=== PATIENT | female | born 1960 | race Caucasian/White ===

== ENCOUNTER 2019-04-03 10:38 | Emergency (ER) | payer OTHER ==
[~2019-04-03] VITALS: Ht 172.7 cm; Wt 86.2 kg
--- OUTSIDE RECORDS SUMMARY | ~2019-04-03 | XMS | Clinical Summary ---
Demographics + + + | Address | [address] | | | [place] [address] | + + + | Home Phone | | + + + | Preferred Language | Unknown | + + + | Marital Status | | + + + | Roman Catholic Affiliation | Unknown | + + + | Race | Unknown | + + + | Ethnic Group | Unknown | + + + Author + + + | Author | [facility] | + + + | Organization | [facility] | + + + | Address | Unknown | + + + | Phone | Unavailable | + + + Support + + +---------+ + | Name | Relationship | Address | Phone | + + +---------+ + | Adry Rodriguez | ECON | Unknown | | + + +---------+ + Care Team Providers + +------+ + | Care Soda Worker Name | Role | Phone | + +------+ + | Zuleyka Martínez ENAMEL DIPPER | PP | | + +------+ + Allergies Not on File Current Medications Not on file Active Problems Not on file Social History + +-------+ +--------+------+ | Tobacco [...] on file | | + + + Plan of Treatment Not on file Results Not on filefrom Last 3 Months Insurance + +--------+ +------+-------+---------+ | Payer | Benefi | Subscriber | Type | Phone | Address | | | t Plan | ID | | | | | | / | | | | | | | Group | | | | | + +--------+ +------+-------+---------+ | [employer] | [employer] | [id number] | | | | | | WORK | | | | | + +--------+ +------+-------+---------+ + +--------+ +--------+ + + | Guarantor Name | Accoun | Relation to | Date | Phone | Billing Address | | | t Type | Patient | of | | | | | | | | | | + +--------+ +--------+ + + | OLENA BUITRAGO | Person | Self | [birth year] | Home: | [address] | | | al/Fam | | 2 | [phone] | [place] [address] | | | ze | | | [phone] | | + +--------+ +--------+ + +"
--- OUTSIDE RECORDS SUMMARY | ~2019-04-03 | XMS | Clinical Summary ---
Demographics + + + | Address | [address] | | | [place] [address] | + + + | Home Phone | | + + + | Preferred Language | Unknown | + + + | Marital Status | | + + + | Orthodox Affiliation | Unknown | + + + | Race | Unknown | + + + | Ethnic Group | Unknown | + + + Author + + + | Author | [facility] | + + + | Organization | [facility] | + + + | Address | Unknown | + + + | Phone | Unavailable | + + + Support + + +---------+ + | Name | Relationship | Address | Phone | + + +---------+ + | Adry Rodriguez | ECON | Unknown | | + + +---------+ + Care Team Providers + +------+ + | Care Program Facilitator Name | Role | Phone | + +------+ + | Zuleyka Martínez ACCOUNTS PAYABLE TECHNICIAN | PP | | + +------+ + [...] +------+-------+---------+ | [employer] | FC-NET | [id number] | | | | | | WORK [...] | | al/Fam | | 2 | [phone] | [place] [address] | | | ze | | | [phone] | | + +--------+ +--------+ + +"
--- OUTSIDE RECORDS SUMMARY | ~2019-04-03 | XMS | Clinical Summary ---
Demographics + + + | Address | [address] | | | [place] [address] | + + + | Home Phone [...] and Services [place] | | | and [place] | + + + | Organization | [facility] | | | and [place] | + + + | Address | [...] Team Providers + +------+ + | Care Selling Manager Name | Role | Phone | + +------+ + | Zuleyka Martínez | PP | Unavailable | + +------+ + Allergies + + [...] Activ | | 10 mg tablet | nightly as needed | | | | | e | | | for Sleep. | | | | | | + + + +---------+------+------+-------+ | traMADol (ULTRAM) | Take 50 mg by mouth | | 0 | | | Activ | | 50 mg tablet | every 6 hours as | | | | | e | | | needed for Pain. | | | | | | + + + +---------+------+------+-------+ | levothyroxine | Take 125 mcg by | | 0 | | | Activ | | (SYNTHROID) 125 mcg | mouth every morning | | | | | e | | tablet | (before breakfast). | | | | | | + + + +---------+------+------+-------+ | calcium carbonate | Take 2 tablets by | | 0 | | | Activ | | (TUMS) 500 mg | mouth as needed. | | | | | e | | chewable tablet | | | | | | | + + + +---------+------+------+-------+ | ALPRAZolam (XANAX) | Take 0.5 mg by mouth | | 0 | | | Activ | | 0.5 mg tablet | 3 times daily as | | | | | e | | | needed for Anxiety. | | | | | | + [...] + + +---------+------+------+-------+ | Multiple | Take by mouth | | 0 | | | Activ | | Vitamins-Minerals | Daily. | | | | | e | | (MULTIVITAMIN ADULT | | | | | | | | PO) | | | | | | | + + + +---------+------+------+-------+ Active Problems + + + | Problem | Noted Date | + + + | Non-small cell cancer of right lung | 01/26/2017 | + + + + + | Cancer Staging: Pathologic stage from 01/26/2017: Stage IIIA | | (T3(1), N1, cM0) - Signed by Milton Salazar MD on | | 01/26/2017 | + + + + + | Pneumothorax after biopsy | 11/04/2016 | + + + | Malignant neoplasm of thyroid gland | 09/28/2016 | + + + | Precordial pain | 06/01/2016 | + + + | Abnormal stress ECG with treadmill | 06/01/2016 | + + + | Cigarette smoker one half pack a day or less | 06/01/2016 | + + + | Insomnia | | + + + Social History + + [...] + +---------+ + | Alcohol Use | Drinks/We | oz/Week | Comments | | | ek | | | + + +---------+ + | Yes | | | once a month | + + +---------+ + + + + | Sex Assigned at | Date Recorded | | | | + + + | Not on file | | + + + + + + + | Job Start Date | Occupation | Industry | + + + + | Not on file | Not on file | Not on file | + + + + + + + + | Travel History | Travel Start | Travel End | + + + + + + | No recent travel history available. | + + Last Filed Vital Signs + + + + | Vital Sign | Reading | Time Taken | + + + + | Blood Pressure | 131/91 | 08/23/20181521 PDT | + + + + | Pulse | 103 | 08/23/20181521 PDT | + + + + | Temperature | 36.7 C (98 F) | 08/23/20181521 PDT | + + + + | Respiratory Rate | 16 | 08/23/20181521 PDT | + + + + | Oxygen Saturation | 100% | 08/23/20181521 PDT | + + + + | Inhaled Oxygen | - | - | | Concentration | | | + + + + | Weight | 88.6 kg (195 lb 5.2 | 08/23/20181521 PDT | | | oz) | | + + + + | Height | 172.7 cm (5' 8") | 11/04/2016 0900 PST | + + + + | Body Mass Index | 29.7 | 11/04/2016 0900 PST | + + + + Plan of Treatment + + + + + | Health Maintenance | Due Date | Last Done | Comments | + + + + + | Hepatitis C | | | | | Screening | 2 | | | + + + + + | Vaccine: | | | | | Pneumococcal 19-64 | 1 | | | | Highest Risk (1 of 3 | | | | | - PCV13) | | | | + + + + + | Breast Cancer | | | | | Screening (Ages | 2 | | | | 50-74) | | | | + + + + + | Vaccine: Zoster (1 | | | | | of 2) | 2 | | | + + + + + | Vaccine: Influenza | | | | | (Season Ended) | 9 | | | + + + + + | Vaccine: | | 09/12/2015, 08/01/2008, | | | Dtap/Tdap/Td (4 - | 5 | 11/29/2006 | | | Td) | | | | + + + + + Results Not on filefrom Last 3 Months Insurance + +--------+ +--------+ +---------+------+ | Payer | Benefi | Subscriber | Effect | Phone | Address | Type | | | t Plan | ID | rajan | | | | | | / | | Dates | | | | | | Group | | | | | | + +--------+ +--------+ +---------+------+ | [employer] | FIRST | [id number] | | [phone] | | PPO | | ADMIN | CHOICE | | [id number]-[id number] | 2 | | | | | | | esent | | | | | | HEALTH | | | | | | | | ADMIN | | | | | | | | FST | | | | | | | | CH | | | | | | + +--------+ +--------+ +---------+------+ + +--------+ +--------+ + + | Guarantor Name | Accoun | Relation to | Date | Phone | Billing Address | | | t Type | Patient | of | | | | | | | | | | + +--------+ +--------+ + + | Olena Rider Yaneli | Person | Self | [birth year] | | [address] | | | al/Fam | | 1960 | [phone] | [place] [id number] | | | ze | | | 9 (Home) | | + +--------+ +--------+ + + Advance Directives Patient has advance care planning documents, and code status on file. For more information, please contact:[facility] [place] [address] + + + + + | Code Status | Date | Date | Comments | | | Activated | Inactivated | | + + + + + | Full Code | 11/04/2016 | 11/06/2016 | | | | 15:13 | 13:06 | | + + + + + + + + +---+ | | | | | + + + +---+ | Full Code | 06/01/2016 | 06/02/2016 | | | | 17:59 | 20:15 | | + + + +---+
--- OUTSIDE RECORDS SUMMARY | ~2019-04-03 | XMS | Clinical Summary ---
Demographics + + + | Address | [address] | | | [place] [address] | + + + | Home Phone [...] Organization | [facility] | | | and [place] | [...] + +------+ + | Care Middle School Counselor Name | Role | Phone | [...] | [employer] | FIRST | [id number] | | [phone] | PPO | [...] | | 1960 | [phone] | [place] [address] | | | ze | | | 9 (Home) | | + +--------+ +--------+ + + Advance Directives Patient has advance care planning documents, and code status on file. For more information, please contact:[facility] [place] [address] + + + + + | Code [...]
[~2019-04-03 10:38] MED LIST: ALPRAZOLAM0.25 MG PO; AMBIEN10 MG PO; ATIVAN1 MG PO; CALCIUM CARBON200 MG PO; CALCIUM500 MG PO; DILAUDID4 MG PO; GABAPENTIN600 MG PO; HEALTHYLAX17 GM PO; LEVOTHYROXINE112 MCG PO; LEVOTHYROXINE125 MCG PO; LEVOTHYROXINE150 MCG PO; LORAZEPAM1 MG PO; MULTIVITAMIN W1 EACH PO; NORCO 5-325 TA1 EACH PO; OMEPRAZOLE20 MG PO; ONDANSETRON ODT4 MG PO; OXYCODON-ACETA1 EAC2 PO; OXYCODONE-ACET1 EAC1 PO; PERCOCET 5-3251 EACH PO; PERCOCET 7.5-31 EACH PO; SENNA LAX8.6 MG PO; TRAMADOL HCL50 MG PO; TYLENOL325 MG PO; VITAMIN C500 M1 PO; VITAMIN D32000 UNI1 PO; VITAMIN D5000 UNIT PO
--- OUTSIDE RECORDS SUMMARY | 2019-04-03 10:42 | XMS ---
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 ESamuel VISIT COUNT (12 MO.) 1 MARYAN Chamberlain TOTAL 1 NOTE: Visits indicate total known visits. ED/UCC VISIT TRACKING (12 MO.) 04/03/2019 10:39 MARYAN Pina [place] TYPE: Emergency COMPLAINT: - RIGHT HIP PAIN/POST OP INPATIENT VISIT TRACKING (12 MO.) 03/06/2019 05:55 MARYAN Pina [place] TYPE: Orthopedic COMPLAINT: - RT TOTAL HIP REPLACEMENT DIAGNOSES: - Other secondary osteonecrosis, right femur - Other secondary osteonecrosis, left femur [email or web address]
[2019-04-03] MEDS ORDERED: AMBIEN10 MG PO (10:52)
[2019-04-03] MEDS ORDERED: CELECOXIB200 MG PO (10:53)
[2019-04-03] MEDS ORDERED: HYDROMORPHONE HC2 MG PO ×2 (10:53→13:20)
== END 2019-04-03 13:39 | disposition home or self-care (01) ==
LOC: ED 10:38
DX: T84.010A Broken internal right hip prosthesis, initial encounter (principal); Z87.891 Personal history of nicotine dependence; Z90.49 Acquired absence of other specified parts of digestive tract; Z90.710 Acquired absence of both cervix and uterus; Z88.5 Allergy status to narcotic agent; Z79.899 Other long term (current) drug therapy
CPT/HCPCS: 73552; 93971; 99284-25

== ENCOUNTER 2019-07-06 09:00 | Day surgery (SDC) | payer OTHER ==
[~2019-07-06] VITALS: Ht 172.7 cm; Wt 86.2 kg
[~2019-07-06 09:00] MED LIST changes: +CELECOXIB200 MG PO; +HYDROMORPHONE HC2 MG PO
--- NOTE | 2019-07-06 13:51 | NUR ---
07/06/19 1351 Pretty Mendoza 3301-PATIENT ARRIVED TO PACU ON 10L MASK PLACED ON 6L RR EVEN. PATIENT SR. DRESSING TO RIGHT BREAST CDI. PATIENT REACTIVE TO VOICE VERY DROWSY SLIGHTLY OPENS EYES AND BACK TO SLEEP.
[2019-07-06] MEDS ORDERED: OXYCODON-ACETA1 EAC2 PO (14:17)
[2019-07-06] MEDS ORDERED: TYLENOL325 MG PO (14:17)
--- NOTE | 2019-07-06 14:59 | NUR ---
1450: PATIENT BACK IN DAY SURGERY ROOM FROM PACU. C/O PAIN /10. MEDICATED FOR PAIN WITH 1 TABLET OF PERCOCET. TOLERATED PUDDING AND WATER. RIGHT BREAST DRESSING CDI. IV SITE WNL. SCDs ON. FAMILY AT BEDSIDE. CALL LIGHT WITHIN REACH.
--- NOTE | 2019-07-06 16:25 | NUR ---
1520: PATIENT ASSISTED OOB AND TO BATHROOM. GAIT STEADY. VOID WITHOUT DIFFICULTY. GAIT STEADY BACK TO ROOM. TOLERATED SANDWICH. DAUGHTER AT BEDSIDE. CALL LIGHT WITHIN REACH. 1545: DISCHARGE INSTRUCTIONS GIVEN TO PATIENT AND DAUGHTER. PATIENT DRESSED INDEPENDENTLY. PATIENT DISCHARGED TO HOME WITH DAUGHTER VIA WHEELCHAIR.
--- NOTE | 2019-07-08 16:41 | OR ---
[facility] [place] [facility] [address] [place], [place] [address] Signed DATE OF OPERATION: 07/06/2019 SURGEON: Nando Pelayo MD PREOPERATIVE DIAGNOSIS: Right infiltrating ductal breast carcinoma ER positive, HER-2/flakita negative, right lateral breast. POSTOPERATIVE DIAGNOSIS: Right infiltrating ductal breast carcinoma ER positive, HER-2/flakita negative, right lateral breast with negative sentinel lymph nodes on frozen pathology. PROCEDURES PERFORMED: 1. Injection of methylene blue dye for sentinel lymph node identification. 2. Right axillary sentinel lymph node biopsy x2. 3. Right partial mastectomy. ANESTHESIA: General LMA; Nando Cody CRNA. INDICATION: This 58-year-old white woman is well known to me from the past. She is a patient of Joe Martínez in the [place], [place], as well as Dr. Reid in [place]. The patient is known to me from the past for thyroidectomy for thyroid cancer, but she has additionally a year ago had right lung cancer requiring thoracoscopic resection by Dr. Nando Mon. She was recently diagnosed with an abnormal mammogram and biopsy confirmed findings of an infiltrating ductal carcinoma, ER positive, HER-2/flakita negative. This was performed by Dr. Shanae Dickens. She has no clearly palpable abnormality. It is notable that her sister recently underwent breast cancer treatment by me. Her mother was noted to have breast cancer in the past as well. After reviewing her options of management currently, she agrees to undergo needle localized excision of breast tissue (partial mastectomy) as well as sentinel lymph node biopsy, possible axillary dissection on the right-sided breast cancer problem. She understands the risks of bleeding, infection, cosmetic deformity, and other unforeseen complications and wished to proceed. FINDINGS: Electronically Signed By: NANDO PELAYO MD 07/08/19 1641 PATIENT NAME: SMITHA BUITRAGO OPERATIVE REPORT DATE OF : 64 REPORT #: [id number] PHYSICIAN: NANDO PELAYO MD PCP: JOE MARTÍNEZ NP REPORT IS CONFIDENTIAL AND NOT TO BE RELEASED WITHOUT AUTHORIZATION [facility] [address] [place], [place] [address] Signed Good uptake by radionuclide was noted in the axilla. Two small lymph nodes were identified and excised, and on frozen pathology, were found to have free of malignancy. The remaining axillary lymph nodes did not have uptake of radiotracer or dye. The needle entered the right breast far laterally, but a circumareolar incision was made, mindful of the position of the actual neoplasm. Wide excision of the neoplasm was accomplished to optimize cosmetic benefit. Specimen radiograph confirmed the lesion in question to be in the excised specimen. Good cosmesis was maintained by conclusion of the procedure. DESCRIPTION OF PROCEDURE: The patient was brought to the operating room and given a general LMA type anesthetic. She was received from radiology suite with a wire emanating from the right lateral breast. The right breast and chest and axilla were prepared with a spray of Betadine solution after trimming the localizing wire. Preoperative antibiotic Ancef was given, sequential compression device stockings used, and heparin subcutaneously administered. The C-Trak radio probe was used to localize the hot area of the right axilla and a small incision was made just lateral to the pectoralis muscle. Dissection was carried through sharply and ultimately with electrocautery. Using blunt dissection primarily and optimal placement of [place] retractors and with various manipulations using the tonsil clamp, the area of high uptake could be identified. There was not too much uptake of the methylene blue dye 0.5%, which had been injected prior to preparation of the breast by nj. 1 mL of methylene blue dye had been used for localization. Nevertheless with radiotracer two small "hot" sentinel nodes were identified and ultimately excised. Small clips were used to secure hemostasis. Interrogation of the right axilla fully showed no other areas of radiotracer uptake nor sign of methylene blue uptake. The wound was packed and the sentinel lymph nodes were sent for frozen pathology. The wire emanating from the lateral aspect of the right breast was carefully and gently manipulated and the lesion was noted to be far more central in the entry point of the wire. On that basis, the areolar margin was marked and a curvilinear incision made on it. Blue dye was transected in doing this based on prior injection. Dissection was carried through the dermis and a flap was raised laterally, ultimately identifying the wire allowing for a lateral to medial and manipulation of the wire to the area in question. Allis clamps were applied to the parenchyma of the breast, and using electrocautery, wide excision was undertaken. A palpable lesion could be noted within the specimen. Additional marginal excision was undertaken medially given the granular nature of the breast tissue palpated. At this point, the frozen pathology returned of the sentinel lymph nodes of the axilla, Electronically Signed By: NANDO PELAYO MD 07/08/19 1641 PATIENT NAME: SMITHA BUITRAGO OPERATIVE REPORT DATE OF : 64 REPORT #: [id number] PHYSICIAN: NANDO PELAYO MD PCP: JOE MARTÍNEZ NP REPORT IS CONFIDENTIAL AND NOT TO BE RELEASED WITHOUT AUTHORIZATION [address] [address] Signed both of them found to have no evidence of metastatic disease. Ultimately, the specimen radiograph confirmed that the lesion in question was excised and noted on the specimen radiograph. Additionally, the medial additional breast tissue that was excised had been imaged, but likely was placed in continuity with the initial excision specimen, and therefore 2 separate specimens were not noted in the radiograph report as noted by Dr. Dickens. Examination of the axilla showed no sign of untoward bleeding. Wound was closed with interrupted 2-0 Vicryl and subcuticular 3-0 Vicryl for the skin. The breast excision (partial mastectomy) site was irrigated and hemostasis meticulously maintained with electrocautery. Some Sara hemostatic agent was insufflated into the area as well. Parenchymal reapproximation was undertaken as best could be to maintain breast contour. The skin was then closed with running subcuticular 3-0 Vicryl. Great effort was made to maintain good cosmesis. Very nice cosmesis of the breast was noted at conclusion. Steri-Strips were applied as was a Mepilex silver sponge dressing and an OpSite. The patient tolerated the procedure well. ESTIMATED BLOOD LOSS: Less than 25 mL. COUNTS: Sponge, needle, and instrument counts were reported as correct x3. MD CHRIS Mueller/REYNAL /[id number] cc: MD Joe Azevedo NP Copies: JOE REID MD Electronically Signed By: NANDO PELAYO MD 07/08/19 1641 PATIENT NAME: SMITHA BUITRAGO OPERATIVE REPORT DATE OF : 64 REPORT #: [id number] PHYSICIAN: NANDO PELAYO MD PCP: JOE MARTÍNEZ NP REPORT IS CONFIDENTIAL AND NOT TO BE RELEASED WITHOUT AUTHORIZATION [address] [place], [place] [address] Signed JOE MARTÍNEZ NP ~ Electronically Signed By: NANDO PELAYO MD 07/08/19 1641 PATIENT NAME: SMITHA BUITRAGO OPERATIVE REPORT DATE OF : 64 REPORT #: [id number] PHYSICIAN: NANDO PELAYO MD PCP: JOE MARTÍNEZ NP REPORT IS CONFIDENTIAL AND NOT TO BE RELEASED WITHOUT AUTHORIZATION
--- NOTE | 2019-07-12 14:42 | PATH ---
[facility] [address] [place], [place] [address] Signed SPECIMEN(S): A SENTINEL LYMPH NODE 1 AND 2 SPECIMEN(S): B RIGHT LATERAL BREAST SPECIMEN(S): C RIGHT BREAST MEDIAL MARGIN SPECIMEN SOURCE: A. SENTINEL LYMPH NODE 1 AND 2 B. RIGHT LATERAL BREAST C. RIGHT BREAST MEDIAL MARGIN CLINICAL HISTORY: Right breast malignancy. FROZEN SECTION DIAGNOSIS: A. [place] lymph node #1 and #2, two right sentinel lymph nodes frozen: - Two lymph nodes, negative for metastatic malignancy. BETHANY Hernandez M.D. 07-06-2019, 1:18 PM Frozen section diagnoses called to OR at 1:18 PM. The Gross Description was prepared using a voice recognition system. The report was reviewed for accuracy; however, sound-alike word errors, addition and/or deletions may occur. If there is any question about this report, please contact Client Services. FINAL PATHOLOGIC DIAGNOSIS: A. Right axillary sentinel lymph nodes 1 and 2, excision: - Negative for metastatic malignancy on both HE and immunostain slides. B. Right breast, upper outer quadrant, excision with image guided localization: - Specimen size: 6.2 x 5.2 x 2.7 cm. - Specimen integrity: Intact. - Largest dimension of invasive carcinoma: 1.8 cm. - Histologic type: Invasive ductal carcinoma, not otherwise specified. - Histologic grade (Media histologic score): - Tubule differentiation: 3 of 3. - Nuclear pleomorphism: 2 of 3. - Mitotic score: 1 of 3. - Total score = 6 = grade 2 of 3. - Associated in situ component: Low-grade ductal carcinoma in situ, cribriform type, no comedo necrosis. - Longest continuous 0.4 cm. - Margins: PATIENT NAME: OLENA RIDER PATHOLOGY DATE OF : 64 REPORT #: [id number] PHYSICIAN: [place] PCP: JOE SOFIA NP REPORT IS CONFIDENTIAL AND NOT TO BE RELEASED WITHOUT AUTHORIZATION [facility] [address] [place], [place] [address] Signed - Invasive: Uninvolved by invasive carcinoma; 0.2 cm from nearest inked margin. - Ductal carcinoma in situ: Uninvolved by DCIS. - Lymph-vascular invasion: Not present. - Microcalcifications: Identified in both carcinoma and nonneoplastic glands. - Additional pathologic findings: - Breast uninvolved by neoplasm. - Fibrocystic disease with the features of fibrosis, cyst formation, apocrine metaplasia, usual and atypical ductal Hyperplasia, microcalcifications. - Lymph nodes: - Two lymph nodes identified, negative for metastatic malignancy. - AJCC: pT1c PN0(SN). C. Breast, additional tissue from medial margin, excision: - Fibrocystic disease with the features of fibrosis, cyst formation, apocrine metaplasia, usual ductal hyperplasia, focal atypical lobular hyperplasia. - Negative for malignancy. COMMENT: B -- The patient had a previous biopsy of the right breast at 10 o'clock region with a diagnosis of infiltrating ductal carcinoma ([id number], received at [facility] 06/15/19). Ancillary studies were performed at this time with the following results: - Estrogen receptor by immunohistochemistry: 99% positive. - Progesterone receptor by immunohistochemistry: 60% positive. - HER2 by FISH: Negative for amplification. As part of [facility]' Quality Improvement Program, this case was reviewed by another member of our pathology staff. BETHANYA:NRT:cml:C1NR MICROSCOPIC EXAMINATION: A. Immunostain for CKAE1/AE3 is obtained on material from cassette (A1), along with an appropriately positive control. Results support the above diagnosis. B, C. Histologic sections of all submitted blocks are examined by light microscopy. These findings, together with the gross examination, support the pathologic diagnosis. Immunostains for SMMCH (Blocks B2, B3, C3) and e-cadherin (Blocks C1 and C2) are obtained along with appropriately positive controls and support the above diagnoses. PATIENT NAME: OLEAN RIDER PATHOLOGY DATE OF : 64 REPORT #: [id number] PHYSICIAN: [facility] PCP: JOE SOFIA NP REPORT IS CONFIDENTIAL AND NOT TO BE RELEASED WITHOUT AUTHORIZATION [address] [address] Signed GROSS DESCRIPTION: Three specimens are received in three containers, labeled "Olena Rider." A. The specimen is received fresh from surgery labeled "right sentinel lymph node 1 and 2" and consists of a piece of regular rubbery tissue, measuring 1.5 x 1.5 x 0.3 cm. The fat is dissected free to reveal two tiny, rubbery, tannish lymph nodes, measuring 0.9 cm and 0.5 cm in maximum extent. One half of the larger lymph node and all of the smaller lymph node are submitted for frozen section and subsequently for permanent sections in cassette (A1). The remaining tissue and the other half of the larger lymph node, which was not frozen is submitted in cassette (A2). LJA:cml B. The specimen, labeled "MH, right breast biopsy," is received in formalin and consists of 28.5 g unoriented portion of fibroadipose tissue that is 6.2 x 5.2 x 2.7 cm. The specimen has inserted metal localization wire. The tissue is inked black and serially sectioned perpendicular to the long axis into 13 slices revealing a 1.8 x 1.2 x 1.2 cm pink-white firm ill-defined mass, which is present in slices 4-8. This mass is 0.2 cm from the closest soft tissue resection margin, and 0.7 cm, 1.2 cm, 1.6 cm, 2.4 cm, and 2.8 cm from the remaining soft tissue resection margins. Laser Specialist sections are submitted in five cassettes. Cassette summary: (B1-B3) Mass to the two closest soft tissue resection margin, perpendicular (B4-B5) Remaining soft tissue resection margins, perpendicular used equipment sales representative sections. Cold ischemia time: 11 minutes Approximate Formalin time: 20 hours. C. The specimen, labeled "MH, additional tissue medial margin right breast," is received in formalin and consists of 6.5 g crescent shaped portion of unoriented fibroadipose tissue that is a 5.2 x 2.6 x 1.3 cm. The lesser curvature of the specimen displays a pink card artifact, which is inked blue. The remaining tissue is inked black. The specimen is serially sectioned perpendicular to the long axis proximally 50% of the specimen is a pink rubbery fibrous tissue that contains multiple brown mucoid filled ducts. The remaining 50% is a yellow-phillips greasy adipose tissue. No discrete mass lesions are grossly identified. Specimen is entirely submitted consecutively in cassettes (C1-C9). Cold ischemia time: 11 minutes PATIENT NAME: OLENA RIDER PATHOLOGY DATE OF : 64 REPORT #: [id number] PHYSICIAN: LOUISA LING PCP: JOE SOFIA NP REPORT IS CONFIDENTIAL AND NOT TO BE RELEASED WITHOUT AUTHORIZATION [facility] [address] [place] [address] Signed Approximate Formalin time: 20 hours. FB (under the direct supervision of a pathologist) ADDITIONAL NOTES: Immunohistochemical and/or in situ hybridization studies were performed on this case with the appropriate positive controls that react as expected. This test was developed and its performance characteristics determined by [facility]. It has not been cleared or approved by the U.S. Food and Drug Administration. The FDA has determined that such clearance or approval is not necessary. This test is used for clinical purposes. It should not be regarded as investigational or for research. [facility] is certified under the Clinical Laboratory Improvement Amendments of 1988 (CLIA) as qualified to perform high complexity clinical laboratory testing. PERFORMING LABORATORY: The frozen section was performed by [place] [address] (Assistant Professor Of Psychology: Doc Hernandez MD; CLIA# [id number]). The technical component was performed by [facility] [address] (Assistant Professor Of Psychology: Nissa Calle MD; CLIA# [id number]). [facility] [address] [place] [address] (Assistant Professor Of Psychology: Doc Hernandez MD; CLIA# [id number]). Diagnostician: Doc Hernandez MD Pathologist Electronically Signed 07/12/2019 Copies: ~ PATIENT NAME: OLENA RIDER [facility]A PATHOLOGY DATE OF : 64 REPORT #: [id number] PHYSICIAN: LOUISA LING PCP: JOE SOFIA NP REPORT IS CONFIDENTIAL AND NOT TO BE RELEASED WITHOUT AUTHORIZATION
== END 2019-07-06 15:50 | disposition home or self-care (01) ==
LOC: OPS 09:00 → DS 09:00 → OPS 10:00
PROVIDERS: Surgery
PROC: 0HBT0ZZ Excision of Right Breast, Open Approach (ICD-10-PCS; principal; 2019-07-06 11:00)
PROC: 07B50ZX Excision of Right Axillary Lymphatic, Open Approach, Diagnostic (ICD-10-PCS; 2019-07-06 11:00)
DX: C50.411 Malignant neoplasm of upper-outer quadrant of right female breast (principal); K21.9 Gastro-esophageal reflux disease without esophagitis; E89.0 Postprocedural hypothyroidism; Z88.5 Allergy status to narcotic agent; Z87.891 Personal history of nicotine dependence; Z85.850 Personal history of malignant neoplasm of thyroid; Z85.118 Personal history of other malignant neoplasm of bronchus and lung; Z80.3 Family history of malignant neoplasm of breast; Z17.0 Estrogen receptor positive status [ER+]; Z79.899 Other long term (current) drug therapy
CPT/HCPCS: 00404; 19285; 76098; 77065; 78195; A9541; J0131; J0690; J1100; J1644; J1885; J2250; J2405; J2704; J2765; J3010; J7120; Q9968

== ENCOUNTER 2020-04-11 19:18 | Emergency (ER) | payer OTHER ==
[~2020-04-11] VITALS: Ht 172.7 cm; Wt 86.2 kg
--- OUTSIDE RECORDS SUMMARY | 2020-04-11 19:20 | XMS ---
PreManage Notification: SMITHA BUITRAGO Security Die Tester Events No recent Security Events currently on file CRITERIA MET - [facility] CARE PROVIDERS Miguelito Allison DO [facility] Current PHONE: [phone] BISMARK Unger Nurse Practitioner 04/04/2019-[facility] JOE PHONE: [phone] Augusto has no Care Guidelines for this patient. Jeri VISIT COUNT (12 MO.) 1 America Chamberlain TOTAL 2 NOTE: Visits indicate total known visits. ED/UCC VISIT TRACKING (12 MO.) [facility] COMPLAINT: - LEFT EYE PAIN 01/04/2020 09:27 [facility] Araceli REYES TYPE: Emergency DIAGNOSES: - Facial Swelling - Periorbital cellulitis - eye swelling INPATIENT VISIT TRACKING (12 MO.) 01/04/2020 09:27 [facility] Araceli REYES TYPE: Medical Surgical DIAGNOSES: - Periorbital cellulitis [email or web address]
[2020-04-11] MEDS ORDERED: BACTRIM DS TAB1 EACH PO (22:42)
[2020-04-11] MEDS ORDERED: AUGMENTIN 875-1 EACH PO (22:42)
[2020-04-11] MEDS ORDERED: DOXYCYCLINE HY100 MG PO (22:54)
[2020-04-11] MEDS ORDERED: CEFDINIR300 MG PO (22:54)
== END 2020-04-11 23:45 | disposition home or self-care (01) ==
LOC: ED 19:18
DX: H00.011 Hordeolum externum right upper eyelid (principal); F17.200 Nicotine dependence, unspecified, uncomplicated; Z88.5 Allergy status to narcotic agent; Z79.899 Other long term (current) drug therapy
CPT/HCPCS: 80048; 85025; 96365; 96367; 99283-25; J0696; J3370

== ENCOUNTER 2020-07-17 02:53 | Emergency (ER) | payer OTHER ==
[~2020-07-17] VITALS: Ht 172.7 cm; Wt 83.9 kg
--- OUTSIDE RECORDS SUMMARY | ~2020-07-17 | XMS | Encounter Summary ---
Demographics + + + | Address | [address] | | | [place] [address] | + + + | Home Phone | | + + + | Preferred Language | Unknown | + + + | Marital Status | Single | + + + | Restorationist Affiliation | Unknown | + + + | Race | White | + + + | Ethnic Group | Not or | + + + Author + + + | Author | [facility] | | | and [place] | + + + | Organization | [facility] | | [...] Team Providers + +------+ + | Care Wire Mesh Filter Fabricator Name | Role | Phone | + +------+ + PCP | Unavailable | + +------+ + Encounter Details +--------+ + + + + | Date | Type | Department | Care Team | Description | +--------+ + + + + | 02/20/ | Hospital | [facility] | | | | 1997 | Encounter | [facility] | | | | | CENTER [address] | | | | | | [place] | | | | | | [address] | | | | | | [phone] | | | +--------+ + + + + Social History + +-------+ +--------+------+ | Tobacco Use | Types | Packs/Day | Years | Date | | | | | Used | | + +-------+ +--------+------+ | Never Assessed | | | | | + +-------+ +--------+------+ + + + | Sex Assigned at [...] 2020 | | | MD Lazaro Coleman [address] | | | | | | [place] | | | | | | [phone] | | | | | | | | +--------+ + + + + documented as of this encounter Visit Diagnoses Not on filedocumented in this encounter"
--- OUTSIDE RECORDS SUMMARY | ~2020-07-17 | XMS | Encounter Summary ---
Demographics + + + | Address | [address] | | | [place] [address] | + + + | Home Phone | | + + + | Preferred Language | Unknown | + + + | Marital Status | Single | + + + | Orthodoxy Affiliation | Unknown | + + + | Race | White | + + + | Ethnic Group | Not or | + + + Author + + + | Author | [facility] | | | and [place] | + + + | Organization | [facility] | | | and [place] | + + + | Address | Unknown | + + + | Phone | Unavailable | + + + Support + + +---------+ + | Name | Relationship | Address | Phone | + + +---------+ + | Jenniefrpatria Rider | ECON | Unknown | | + + +---------+ + | Oksana Vitale | ECON | Unknown | | + + +---------+ + Care Team Providers + +------+ + | Care Medical Numerical Control Operator Name | Role | Phone | + +------+ + | Zuleyka Martínez | PCP | | + +------+ + Reason for Visit + + + | Reason | Comments | + + + | Follow-up | | + + + Encounter Details +--------+ + + + + | Date | Type | Department | Care Team | Description | +--------+ + + + + | 04/02/ | Hospital | [facility] | Milton Salazar | Non-small cell | | 2017 | Encounter | [facility] | MD [address] | cancer of right lung | | | | [facility] [address] | (HCC) (Primary Dx) | | | | [address] | [place] [address] | | | | | [place] [address] | [phone] | | | | | [phone] | | | +--------+ + + + [...] + + + | Blood Pressure | 135/86 | 04/02/2017 9:52 AM | | | | | PDT | | + + + + + | Pulse | 93 | 04/02/2017 9:52 AM | | | | | PDT | | + + + + + | Temperature | 36.9 C (98.5 F) | 04/02/2017 9:52 AM | | | | | PDT | | + + + + + | Respiratory Rate | 18 | 04/02/2017 9:52 AM | | | | | PDT | | + + + + + | Oxygen Saturation | 99% | 04/02/2017 9:52 AM | | | | | PDT | | + + + + + | Inhaled Oxygen | - | - | | | Concentration | | | | + + + + + | Weight | 83.7 kg (184 lb 8 | 04/02/2017 9:52 AM | | | | oz) | PDT | | + + + + + | Height | - | - | | + + + + + | Body Mass Index | 28.05 | 11/04/2016 9:00 AM | | | [...] + + + +---------+ + + | | Take 1 tablet by | 20 | 0 | 03/30/20 | | | amoxicillin-clavulan | mouth 2 times daily | tablet | | 17 | 7 | | ate (AUGMENTIN) | for 10 days. | | | | | | 500-125 mg per | | | | | | | tabletIndications: | | | | | | | Sinusitis, | | | | | | | unspecified | | | | | | | chronicity, | | | | | | | unspecified location | | | | | | + + + +---------+ + + | calcium carbonate | Take 2 tablets by | | 0 | | | | (TUMS) 500 mg | mouth as needed. | | | | 9 | | chewable tablet | | | | | | + + + +---------+ + + | dexamethasone | Take 4 mg by mouth 2 | | 0 | | | | (DECADRON) 4 mg | times daily (with | | | | 7 | | tablet | breakfast & dinner). | | | | | | | Take BID for 2 days | | | | | | | after chemotherapy. | | | | | + + [...] 6 hours as | | | | 7 | | tablet | needed for Pain. [...] documented as of this encounter Progress Notes Milton Salazar MD - 04/02/2017 10:39 AM PDTFormatting of this note might be diff erent from the original. Hem-Onc Progress Note [facility] Pt. Name/Age/: Olena Connollybren Rider 56 y.o. 1960 Med. Record Number: [id number] Date of admission: 04/02/2017 Assessment and plan: 1. Non-small cell lung cancer, RLL, Nov, 2016 Adenocarcinoma with mucinous features pT3 (two separate foci, 1.3, 1.0 cm), pN1, M0 StageIIIA S/p VATS RL, Dec, 2016, Dr. Luis Felipe Mon EGFR mutation negative, FISH neg: ROS, ALK rearrangement PD-L1 low expression (3%) 2. Papillary carcinoma of the thyroid S/p thyroidectomy, LN excision S/p radio-iodine abllation, Oct, 2016 Authorization today for third cycle pemetrexed and carboplatin chemotherapy continuing full dose treatment. Recommendation to continue full 7 day therapy for acute sinusitis Reminder concerning use of antiemetic therapy and they 72 hours following treatment as a me ans of stemming treatment related nausea. Ten-day trae check follow-up Subjective: The patient chart and medications were reviewed in detail and the patient was seen and exam ined. Olena Rider is a 56 y.o. female returns today for short-term follow-up monitoring re covery from an acute sinusitis and then to go ahead with third cycle combination pemetrexed and carboplatin as postsurgical adjuvant treatment of lung cancer. Subjectively patient improved in the several days since an earlier visit having begun oral antibiotic therapy following the development of facial pain, headache, temperature elevation s suspicious for acute sinusitis. Patient now seemingly responding to a program of Augmenti n and its fourth day. In particular patient noticing resolution of facial pain and with rosalio t a resolution of temperature elevations. PSH: Reviewed, no changes to admission H&P. Review of Systems: Constitutional: Reports energy level is slightly better today, was low for the past several days. States her headache is much better from starting antibiotics for sinus infection. Rep orts low grade fevers last weekend, none since starting antibiotics. Reports nausea first we ek after treatment. Reports appetite is lower in past 2 weeks. Denies shaking chills, anorex ia, vomiting, weight loss, or night sweats. Ear, Nose, Mouth, Throat: Denies odynophagia, dysphagia, or tinnitus. Cardiovascular: Denies shortness of breath, dyspnea on exertion, chest pain, palpitations o r orthopnea. Respiratory: Reports continued dry cough. Denies hemoptysis or sputum production. Gastrointestinal: Reports constipation and diarrhea go back and forth and has notice more d iarrhea since being on antibiotics. Denies abdominal pain, melena, or bright red blood per r ectum. Genitourinary: Denies hematuria or dysuria. Musculoskeletal: Continued arthritic pains generalized. Neurologic: Reports sinus headache is better since starting antibiotics. Denies visual walter ges or numbness/tingling of the extremities. Endocrine: Denies peripheral edema or heat/cold intolerance. Hematologic: Denies spontaneous bruising or bleeding. Integumentary: Denies rash, wounds or other skin concerns. Pain: Reports bilateral knee pain that is constant for her, rates at 3/10 on scale of 0-10. States that she takes Ibuprofen and Tylenol as needed. Review of systems as above otherwise negative Scheduled Medications: Continuous Infusions: PRN Meds:. Allergy: Allergies Allergen Reactions Morphine And Related Other (See Comments) "unknown reaction - trouble breathing after hysterectomy" Current Outpatient Prescriptions on File Prior to Encounter Medication Sig Dispense Refill ALPRAZolam (XANAX) 0.5 mg tablet Take 0.5 mg by mouth 3 times daily as needed for Anxie ty. amoxicillin-clavulanate (AUGMENTIN) 500-125 mg per tablet Take 1 tablet by mouth 2 time s daily for 10 days. 20 tablet 0 calcium carbonate (TUMS) 500 mg chewable tablet Take 2 tablets by mouth Daily. dexamethasone (DECADRON) 4 mg tablet Take 4 mg by mouth 2 times daily (with breakfast & dinner). Take BID for 2 days after chemotherapy. folic acid (FOLVITE) 400 MCG tablet Take 1 tablet by mouth Daily. During treatment with PEMEtrexed. (This dose found in most multi-vitamins.) ibuprofen (ADVIL, MOTRIN) 200 mg tablet Take 200 mg by mouth every 6 hours as needed fo r Pain. levothyroxine (SYNTHROID, LEVOTHROID) 150 mcg tablet Take 150 mcg by mouth every mornin g (before breakfast). LORazepam (ATIVAN) 1 mg tablet Take 1 tablet by mouth every 6 hours as needed (Nausea/V omiting). 30 tablet 5 ondansetron (ZOFRAN ODT) 4 mg disintegrating tablet Take 4 mg by mouth every 8 hours as needed for Nausea. traMADol (ULTRAM) 50 mg tablet Take 50 mg by mouth every 6 hours as needed for Pain. UNABLE TO FIND CBD oil 15 mg UNABLE TO FIND Protandim Supplement - given to her by Dr. Mon varenicline (CHANTIX) 0.5 mg tablet Take 1 tablet by mouth 2 times daily. To help stop smoking (Patient not taking: Reported on 03/31/2017) 60 tablet 1 zolpidem (AMBIEN) 10 mg tablet Take 10 mg by mouth nightly as needed for Sleep. No current facility-administered medications on file prior to encounter. Objectives: Temp: 36.9 C (98.5 F) BP: 135/86 Pulse: 93 Resp: 18 SpO2: 99 % on Min/Max Temp past 24 hours:Temp Av.9 C (98.5 F) Min: 36.9 C (98.5 F) Max: 3 6.9 C (98.5 F) No intake or output data in the 24 hours ending 04/02/17 1039 Wt. Admission: Weight: 83.7 kg (184 lb 8 oz) Wt. Current: Weight: 83.7 kg (184 lb 8 oz) Physical Exam: Exam: General: The patient is alert and oriented. No acute distress. HEENT: PERRL, Oral mucosa intact. Neck is supple. Extremities: Nontender, no erythema, no edema. Skin: No rashes, bruising, or petechiae. Lymph: No palpable nodes in the neck, supraclavicular fossa, axilla or groin. Neurological: Cranial nerves are intact. Normal sensory and motor function, No focal defi cits noted. Muscular/Skeletal: No acute bony tenderness. Psychiatric: Normal mood and affect. Diagnostic studies: Available data and images were reviewed personally. See reports. Significant results and findings are addressed here or in the Assessment and Plan. Recent Labs Lab 04/02/17 0934 WBC 8.0 HGB 12.8 HCT 36.8 PLT 381 Recent Labs Lab 04/02/17 0934 NA 139 K 3.7 CL 106 CO2 26 BUN 6* CREA 0.95 GLU 118* CALCIUM 9.3 BILITOT 0.4 AST 25 ALT 28 ALKPHOS 76 ALBUMIN 3.9 Electronically signed by: Milton Salazar, 04/02/2017 10:39 [facility] TIME SPENT 20 MIN. > 50% AT BEDSIDE, WITH FAMILY/PATIENT IN CARE AND BUILDING CONSTRUCTION SUPERVISOR ON UNIT AND CO ORDINATION OF CARE Portions of this chart may have been created with [employer] voice recognition software. Occasi onal wrong-word or sound-alike substitutions may have occurred due to the inherent cervantes itations of voice recognition software. Please read the chart carefully and recognize, using context, where these substitutions have occurred. Meseret Martinez RN - 04/02/2017 9:43 AM PDTREVIEW OF SYSTEMS Constitutional: Reports energy level is slightly better today, was low for the past several days. States her headache is much better from starting antibiotics for sinus infection. Rep orts low grade fevers last weekend, none since starting antibiotics. Reports nausea first we ek after treatment. Reports appetite is lower in past 2 weeks. Denies shaking chills, anorex ia, vomiting, weight loss, or night sweats. Ear, Nose, Mouth, Throat: Denies odynophagia, dysphagia, or tinnitus. Cardiovascular: Denies shortness of breath, dyspnea on exertion, chest pain, palpitations o r orthopnea. Respiratory: Reports continued dry cough. Denies hemoptysis or sputum production. Gastrointestinal: Reports constipation and diarrhea go back and forth and has notice more d iarrhea since being on antibiotics. Denies abdominal pain, melena, or bright red blood per r ectum. Genitourinary: Denies hematuria or dysuria. Musculoskeletal: Continued arthritic pains generalized. Neurologic: Reports sinus headache is better since starting antibiotics. Denies visual walter ges or numbness/tingling of the extremities. Endocrine: Denies peripheral edema or heat/cold intolerance. Hematologic: Denies spontaneous bruising or bleeding. Integumentary: Denies rash, wounds or other skin concerns. Pain: Reports bilateral knee pain that is constant for her, rates at 3/10 on scale of 0-10. States that she takes Ibuprofen and Tylenol as needed. Note: Here for follow up, labs and treatment. My chart: declined documented in this encounter Plan of Treatment +--------+ + + + + | Date | Type | Specialty | Care Team | Description | +--------+ + + + + | 11/22/ | Appointment | Radiation Oncology | Susie Montemayor | | | 2020 | | | MD [address] | | | | | | [place], [place] | | | | | | [id number] | | | | | | | | +--------+ + + + + documented as of this encounter Procedures + +--------+ + + + | Procedure Name | Priori | Date/Time | Associated Diagnosis | Comments | | | ty | | | | + +--------+ + + + | CBC WITH | STAT | 04/02/2017 | Non-small cell | Results for this | | DIFFERENTIAL | | 9:34 AM | cancer of right lung | procedure are in the | | | | PDT | (HCC) | results section. | + +--------+ + + + | COMPREHENSIVE | STAT | 04/02/2017 | Non-small cell | Results for this | | METABOLIC PANEL | | 9:34 AM | cancer of right lung | procedure are in the | | | | PDT | (HCC) | results section. | + +--------+ + + + documented in this encounter Results CBC with Differential (04/02/2017 9:34 AM PDT) + + + + + + | Component | Value | Ref Range | Performed | Pathologist | | | | | At | Signature | + + + + + + | White Blood | 8.0 | 4.0 - 11.0 K/uL | [facility] | | | Cells | | | [facility] | | [facility] | | | | | [facility] | | | | | | [facility] | | + + + + + + | Red Blood | 4.00 | 3.70 - 5.20 | [facility] | | | Cells | | M/uL | [facility] | | | | | [facility] | | | | | | [facility] - | | | | | | [facility] | | + + + + + + | Hemoglobin | 12.8 | 11.5 - 16.0 | [facility] | | | | | g/dL | [facility] | | [facility] | [facility] | | | | | | [facility] - | | | | | | [facility] | | + + + + + + | Hematocrit | 36.8 | 34.0 - 47.0 % | [facility] | | | | | | [facility] | | | | [facility] | | | | | | [facility] | | + + + + + + | MCV | 91.9 | 83.0 - 101.0 fL | [facility] | | | | | | [facility] | [facility] | [facility] | | | | | [facility] - | | | | | | [facility] | | + + + + + + | MCH | 32.0 | 28.0 - 35.0 pg | [facility] | | | | | | [facility] | | | [facility] | | [facility] | | | | | [facility] - | | | | | | [facility] | | + + + + + + | MCHC | 34.8 | 32.0 - 36.0 | [facility] | | | | | g/dL | [facility] | | | [facility] | [facility] | | | | | | [facility] - | | | | | | [facility]AT[facility] | | + + + + + + | RDW-CV | 15.6 (H) | <15.0 % | [facility] | | | | | | [facility] | [facility] | [facility] | | | | | [facility] - | | | | | | [facility]AT[facility] | | + + + + + + | Platelet | 381 | 140 - 440 K/uL | [facility] | | | Count | | | [facility] | | | | | | [facility] | | | | [facility] - | | | | | | [facility] | | + + + + + + | MPV | 7.2 | fL | [facility] | | | | | | [facility] | | | [facility] | [facility] | | | | | [facility] - | | | | | | [facility] | | + + + + + + | % | 44.9 (L) | 45.0 - 82.0 % | [facility] | | | Neutrophils | | | [facility] | | | | | | [facility] | | | | | | [facility] - | | | | | | [facility]ATORY | | + + + + + + | % | 41.1 | 20.0 - 45.0 % | [facility] | | | Lymphocytes | | | [facility] | | | | | | [facility] | | | | | | [facility] - | | | | | | [facility] | | + + + + + + | % Monocytes | 10.7 | 4.0 - 12.0 % | [facility] | | | | | | [facility] | | | | | | [facility] | | | | | [facility] - | | | | | | [facility] | | + + + + + + | % | 1.8 | 0.0 - 5.0 % | [facility] | | | Eosinophils | | | [facility] | | | | | | [facility] | | | | | | [facility] - | | | | | | [facility]ATORY | | + + + + + + | % Basophils | 1.5 (H) | 0.0 - 1.0 % | [facility] | | | | | | [facility] | | | | | | [facility] | | | | | | [facility] - | | | | | | [facility] | | + + + + + + | Absolute | 3.60 | 1.80 - 8.50 | [facility] | | | Neutrophils | | K/uL | [facility] | | | | | | [facility] | | | | | | [facility] - | | | | | | LAB[facility]ATORY | | + + + + + + | Absolute | 3.30 (H) | 0.60 - 3.20 | [facility] | | | Lymphocytes | | K/uL | [facility] | | | | | | [facility] | | | | | | [facility] - | | | | | | LAB[facility]ATORY | | + + + + + + | Absolute | 0.90 | 0.00 - 1.00 | [facility] | | | Monocytes | | K/uL | [facility] | | | | | | [facility] | | | | | | [facility] - | | | | | | [facility] | | + + + + + + | Absolute | 0.10 | 0.00 - 0.40 | [facility] | | | Eosinophils | | K/uL | [facility] | | | | | | [facility] | | | | | | [facility] - | | | | | | [facility]AT[facility] | | + + + + + + | Absolute | 0.10 | 0.00 - 0.10 | [facility] | | | Basophils | | K/uL | [facility] | | | | | | [facility] | | | | | | [facility] - | | | | | | [facility]ATORY | | + + + + + + + + | Specimen | + + | Blood | + + + + + + + | Performing | Address | City/State/Zipcode | Phone Number | | Organization | | | | + + + + + | [facility] | [address] | [place] | [phone] | | [facility] | | [address] | | | - LABORATORY | | | | + + + + + Comprehensive Metabolic Panel (04/02/2017 9:34 AM PDT) + + + + + + | Component | Value | Ref Range | Performed | Pathologist | | | | | At | Signature | + + + + + + | Na | 139 | 136 - 149 | [facility] | | | | | mmol/L | [facility] | | | | | | [facility] | | | | | | [facility] - | | | | | | LAB[facility]ATORY | | + + + + + + | K | 3.7 | 3.5 - 5.1 | [facility] | | | | | mmol/L | [facility] | | | | | | [facility] | | | | | | [facility] - | | | | | | LAB[facility]ATORY | | + + + + + + | Cl | 106 | 98 - 109 mmol/L | [facility] | | | | | | [facility] | | | | | | [facility] | | | | | | [facility] - | | | | | | LAB[facility]ATORY | | + + + + + + | CO2 | 26 | 24 - 31 mmol/L | [facility] | | | | | | [facility] | | | | | | [facility] | | | | | [facility] - | | | | | | LAB[facility]ATORY | | + + + + + + | Anion Gap | 7 | 3 - 16 mmol/L | [facility] | | | | | | [facility] | | | | | | [facility] | | | | | | [facility] - | | | | | | LAB[facility]ATORY | | + + + + + + | Glucose | 118 (H) | 70 - 109 mg/dL | [facility] | | | | | | [facility] | | | | | | [facility] | | | | | | [facility] - | | | | | | LABORATORY | | + + + + + + | BUN | 6 (L) | 7 - 18 mg/dL | [facility] | | | | | | [facility] | | | | | | [facility] | | | | | | C[facility] - | | | | | | LABORATORY | | + + + + + + | Creatinine | 0.95 | 0.60 - 1.30 | [facility] | | | | | mg/dL | [facility] | | | | | | [facility] | | | | | | CENTER - | | | | | | LABORATORY | | + + + + + + | eGFR, | >60Comment: GLOMERULAR | >=60 | [facility] | | | non- | FILTRATION | mL/min/1.73m2 | [facility] | | | [place] | RATE,ESTIMATED | | MEDICAL | | | | mL/min/1.60t8Zsxm than | | CENTER - | | | | 60 Chronic kidney | | LABORATORY | | | | disease,if found over a | | | | | | 3-month period.Less than | | | | | | 15 Kidney failureFor | | | | | | | | | | | | Americans,multiply the | | | | | | calculated GFR by 1.21. | | | | | | | | | | + + + + + + | Calcium | 9.3 | 8.3 - 10.5 | [place] | | | | | mg/dL | [facility] | | | | | | [facility] | | | | | | [facility] - | | | | | | LABORATORY | | + + + + + + | Albumin | 3.9 | 3.2 - 5.0 g/dL | [facility] | | | | | | [facility] | | | | | | [facility] | | | | | | CENTER - | | | | | | LABORATORY | | + + + + + + | Bilirubin | 0.4Comment: This is an | 0.1 - 1.5 mg/dL | [facility] | | | Total | appended report. These | | [facility] | | | | results have been | | MEDICAL | | | | appended to a previously | | CENTER - | | | | preliminary verified | | LABORATORY | | | | report. | | | | + + + + + + | Total | 6.9 | 6.0 - 7.8 g/dL | [facility] | | | Protein | | | [facility] | | | | | | [facility] | | | | | | CENTER - | | | | | | LABORATORY | | + + + + + + | AST | 25Comment: This is an | 10 - 42 U/L | [facility] | | | | appended report. These | | [facility] | | | | results have been | | MEDICAL | | | | appended to a previously | | CENTER - | | | | preliminary verified | | LABORATORY | | | | report. | | | | + + + + + + | ALT | 28Comment: This is an | 6 - 45 U/L | [facility] | | | | appended report. These | | [facility] | | | | results have been | | MEDICAL | | | | appended to a previously | | CENTER - | | | | preliminary verified | | LABORATORY | | | | report. | | | | + + + + + + | Alkaline | 76Comment: This is an | 40 - 110 U/L | [facility] | | | Phosphatase | appended report. These | | [facility] | | | | results have been | | MEDICAL | | | | appended to a previously | | CENTER - | | | | preliminary verified | | LABORATORY | | | | report. | | | | + + + + + + | Globulin | 3.0 | 2.1 - 3.8 g/dL | [facility] | | | | | | [facility] | | | | | | [facility] | | | | | | CENTER - | | | | | | LABORATORY | | + + + + + + | Albumin/Yuli | 1.3 | 0.8 - 2.0 | [facility] | | | bulin Ratio | | | [facility] | | | | | | [facility] | | | | | | CENTER - | | | | | | LABORATORY | | + + + + + + | BUN/Creatin | 6.3 | | [facility] | | | ine Ratio | | | [facility] | | | | | [facility] | | | | | | CENTER - | | | | | | LABORATORY | | + + + + + + + + | Specimen | + + | Blood | + + + + + + + | Performing | Address | City/State/Zipcode | Phone Number | | Organization | | | | + + + + + | [facility] | [address] | [place] | [phone] | | [facility] | | [address] | | | - LABORATORY | | | | + + + + + documented in this encounter Visit Diagnoses + + | Diagnosis | + + | Non-small cell cancer of right lung (HCC) - Primary | + + documented in this encounter
--- OUTSIDE RECORDS SUMMARY | ~2020-07-17 | XMS | Encounter Summary ---
Demographics + + + | Address | [address] | | | [place] [address] | + + + | Home Phone | | + + + | Preferred Language | Unknown | + + + | Marital Status | Single | + + + | Presybeterian Affiliation | Unknown | + + + | Race | White | + + + | Ethnic Group | Not or | + + + Author + + + | Author | [facility] | | | and [place] | + + + | Organization | [facility] | | | [...] Team Providers + +------+ + | Care Chief Design Drafter Name | Role | Phone | + +------+ + | Zuleyka Martínez | PCP | | + +------+ + Reason for Referral Evaluate & Treat (Routine) +--------+ + + + + + | Status | Reason | Specialty | Diagnoses / | Referred By | Referred To | | | | | Procedures | Contact | Contact | +--------+ + + + + + | Closed | Specialty | | Diagnoses | Albina, | Cipriano, | | | Services | | Thyroid | Susie Coleman, | MD Zuleyka | | | Required | | cancer (HCC) | [address] | | | | | [address] | [address] | | | | | | [place], | [place] | | | | | | [place] [address] | [address] | | | | | | Phone: | Phone: | | | | | | [phone] | [phone] | | | | | | Fax: | Fax: | | | | | | [phone] | [phone] | +--------+ + + + + + Encounter Details +--------+ + + + + | Date | Type | Department | Care Team | Description | +--------+ + + + + | 04/23/ | Hospital | [facility] | Milton Salazar | Thyroid cancer (HCC) | | 2017 | Encounter | [facility] | MD Bebeto [address] | (Primary Dx) | | | | ONCOLOGY [address] [place] | | | | | [place], | [place] [address] | | | | | [place] [address] | [phone] | | | | | [phone] | | | | | | | Susie Montemayor, | | | | | | [address] | | | | | | [place], [place] | | | | | | [address] | | | | | | | [...] + + documented as of this encounter Discharge Instructions Patient Instructions Susie Walker MD - 04/23/2017 12:28 PM PDTPlan: - Thyroid lab tests on 05/03/17. TSH, Thyroglobulin, and Tg antibody. - US neck - Follow-up with Dr. Zuleyka Cota MD. If not able to see her in next 6 month then, make a follow-up with me. Labs and US every 6 month for 2 years, once a year. Life-long thyroid replacement pills. Keep 150 mcg daily dose. For bone health Calcium 1200 mg daily and Vit D 100 IU daily. Goal TSH 0.1-0.5. Last test was 0.39, within goal. Dr. Salazar will follow the lung cancer risk with future CT scans and follow-up in clini c. Call my office if follow-up or questions if needed. STOP SMOKING. documented in this encounter Medications at Time of Discharge [...] | 1 | 04/12/20 | | | (INDU-CUAUHTEMOC) 10 MEQ | mouth Daily. | tablet [...] as of this encounter Progress Notes Susie Walker MD - 04/23/2017 12:00 AM [facility] Radiation Oncology Follow-up Note PATIENT: Olena Rider MR#: [id number] :1960 DOS:04/23/2017 ICD/Diagnosis: C73 - Malignant neoplasm of thyroid gland, Diagnosed 09/2016 (Active) Chief Complaint/History of Present Illness: Olena Rider is a 56 year-old woman with two sequential malignancies: - Stage III, T1a N1a papillary thyroid cancer, bilateral, muiltifocal, larges in right lob e 1cm, positive margin, LVSI indeterminate and PNI present. Left lobe with 0.6 cm nodule, positive margin, LVSI and PNI present, 1/ small lymph node positive. Indeterminate right lower lobe pulmonary nodule with metabolic activity on PET/CT. Thyrogen stimulated radioac tive Iodine-131 ablation on 10/14/16 with 100 mCi. -Stage IIIA, pT3 pN1. Non-small cell lung cancer, adenocarcinoma (acinar with mucinous/si gnet-ring features) of the right lower lobe. She has undergone right lower lobectomy and lymph node dissection, 12/30/16. 2 foci in same lobe measuring 1.3 and 1 cm. Extensive lym phovascular space invasion. One right level 11 lymph node with isolated tumor cells. R0 r esection. EGFR, KRAS, ALK negative, PDL 1 (pembroluzimab receptor): 3%, ROS1 negative. Now completing adjuvant carboplatin/pemetrexed 4c. Olena was last seen on 11/11/[address]-guided biopsy on 11/04/16 confirmed pulmon gifty adenocarcinoma, well to moderately differentiated with IHC staining for CK 7, TTF-1 and Napsin A. She was then referred to Dr. Mon and underwent Right lower lobectomy and fredo dissection on 12/30/16. Pathology: " - Two foci of adenocarcinoma, predominantly acinar pattern with mucinous/signet-ring fea tures. - The larger focus measures 1.3 x 1.1 x 1 cm. - The smaller focus measures 1 x 0.6 x 0.6 cm. - The overlying visceral pleura is not involved by tumor, PL0. - Extensive lymph-vascular invasion is present. - Margins (bronchial, vascular and parenchymal) are free of tumor. - Three benign lymph no gilberto (0/3). One Rt level 11 Rare isolated keratin positive cells, less than 0.1 mm, identif ied only on keratin immunostain (0/1). -The smaller tumor is present 1 cm away from the larger tumor and demonstrate identical mo rphology. Entire tissue both tumors is submitted for histologic evaluation and shows normal lung parenchyma. Lymph vascular invasion is present and extensive. The overa ll morphologic features are consistent with intrapulmonary metastasis and will be staged ac cordingly, pT3. -EGFR, KRAS, ALK negative, PDL 1 (pembroluzimab receptor): 3%, ROS1 negative" Today, she is completing four cycles of adjuvant carboplatin/pemetrexed on 04/23/17. Olena notes fatigue and expected chemotherapy related side-effects. She is not experie ncing any lumps or nodules, no new area of pain, no difficulty breathing. Continues on Lev othyroxine 150 mg daily. No lasting side-effects related to I-131 treatment. Continue s to smoke. Review of Systems: ROS ConstitutionalAbnormal - Complains of lack of appetite and fatigue. Denies fever, leth argy, malaise, night sweats, rigors / chills and change in weight. ROS EyesNormal - Denies blurred vision, double vision, lacrimation, night blindness, visual difficulties and photop hobia.ROS ENMTNormal - Denies dysphagia, ear pain, epistaxis, esophagitis, problems with he aring, mouth dryness, oral bleeding, otitis, sinusitis, sputum production, stomatitis, alt ered taste and tinnitus.ROS NeckNormal - Denies neck masses, muscle weakness, neck pain, de creased range of motion and swelling of the neck.ROS IntegumentaryNormal - Denies alopecia, blistering, bruising, dry skin, nail changes, photosensitivity, pruritus, rash and urticar ia.ROS BreastsNormal - Denies breast masses, nipple discharge, nipple inversion and pain.RO S CardiovascularNormal - Denies arrhythmias, chest pain, dyspnea, edema, orthopnea and pal pitations.ROS RespiratoryAbnormal - Complains of cough. Denies dyspnea, hemoptysis, hiccoug hs, pleuritic chest pain and wheezing.ROS GastrointestinalNormal - Denies abdominal pain, c hange in bowel habits, constipation, diarrhea, heartburn / dyspepsia, hematemesis, hematoch ezia, hemorrhoids, melena / GI bleeding, nausea, pain / cramping, satiety and vomiting.ROS Genitourinary (F)Normal - Denies dysuria, frequency, genital masses, hematuria, incontinen ce, nocturia, renal stone disease, problems with sexual function, urgency, urine color walter ge, vaginal discharge / bleeding and vaginal spotting.ROS MusculoskeletalAbnormal - Complai ns of arthritis and joint pain. Denies bone pain, muscle weakness and decreased range of mo tion. ROS NeurologicAbnormal - Complains of headaches. Denies disorientation, dizziness, a bnormal gait, insomnia, memory loss, motor weakness, sensory problems, paralysis, seizure a nd stroke.ROS PsychiatricNormal - Denies delusions, hallucinations, mood swings, depression and euphoria.ROS Endocrine Abnormal - Complains of thyroid disease. Denies diabetes, hot f lashes and menstrual irregularities.ROS Hematologic/LymphaticNormal - Denies easy bruising and tender or enlarged lymph nodes. Medications: Patient medications reviewed and updated within the hospital EMR. See EMR for complete lis t. Allergies: Patient allergies reviewed and updated within the hospital EMR. See EMR for complete list. Vital Signs: Performed on 04/23/2017, 09:54Weight 82.2 kg Temperature 98.5 F (HIGH) Pulse 99 / min Respiration 16 / min BP124/88 mm(hg) O2 Sat 100 % Pain 0 Physical Exam: General: Healthy appearing woman in no acute medical distress. KPS: 80 HEENT: Pupils equal , round and reactive to light. No conjunctival icterus or injection. EOMI. Oral, moist mucu s membranes. Well healed thyroidectomy incision. No nodularity. Lymphatic: No cervical, supraclavicular or axillary lymphadenopathy. Cardiovascular: Regul ar rate and rhythm, no murmur. Pulmonary: Breath sounds heard throughout, no adventitial sounds or increased work of jimbo thing at rest. Abdomen: Soft, non-tender, no masses or organomegaly detected. Extremities: Upper and lowe r extremities warm and well perfused with no upper or lower extremity edema. Neurologic: Alert, oriented and appropriated in conversation. CN II-IX 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. Moves all 4 extremities normally with normal gait. Psychiatric: Appropriate. Questionnaires: Are you having pain?No Imaging, pathology and pertinent labs reviewed personally and described above in history o f present illness. Impression/Plan: 56 year-old woman with two sequential malignancies: - Stage III, T1a N1a papillary thyroid cancer, bilateral, muiltifocal, larges in right lob e 1cm, positive margin, LVSI indeterminate and PNI present. Left lobe with 0.6 cm nodule, positive margin, LVSI and PNI present, 1/1 small lymph node positive. Indeterminate right lower lobe pulmonary nodule with metabolic activity on PET/CT. Thyrogen stimulated radioac tive Iodine-131 ablation on 10/14/16 with 100 mCi. -Stage IIIA, pT3 pN1. Non-small cell lung cancer, adenocarcinoma (acinar with mucinous/si gnet-ring features) of the right lower lobe. She has undergone right lower lobectomy and lymph node dissection, 12/30/16. 2 foci in same lobe measuring 1.3 and 1 cm. Extensive lym phovascular space invasion. One right level 11 lymph node with isolated tumor cells. R0 r esection. EGFR, KRAS, ALK negative, PDL 1 (pembroluzimab receptor): 3%, ROS1 negative. Now completing adjuvant carboplatin/pemetrexed 4c. Olena is seeing me today for follow-up surveillance of the thyroid cancer. She is asymp tomatic with regard to this diagnosis and treatment. Primary focus has been the lung cance r, for which she is now completing chemotherapy. She is due for thyroid US and labs. Plan: - Thyroid lab tests on 05/03/17. TSH, Thyroglobulin, and Tg antibody. - US neck - Follow-up with Dr. Zuleyka Cota MD in [place] to establish care. If not able to se e her in next 6 month then, make a follow-up with me. Recommendations: Labs and US every 6 month for 2 years, once a year. Life-long thyroid replacement pills. Keep 150 mcg daily dose at this time. For bone healt h Calcium 1200 mg daily and Vit D 100 IU daily. Goal TSH 0.1-0.5. Last test was 0.39, with in goal. Dr. Salazar will follow the lung cancer risk with future CT scans and follow-up in clin ic. Call my office if follow-up or questions if needed. STOP SMOKING. She plans to try chantix once recovered from chemotherapy. Thank you for allowing me to participate in the care of Olena Rider. If you should have any questions regarding this evaluation, please do not hesitate to contact me. Susie Vargas M.D. Radiation Oncologist Department of Radiation Oncology [facility] Electronically signed by Susie Walker M.D CC: Doris Stanford M.D. [facility]. [facility] [address] MD in [place] This note was transcribed using [employer] speech recognition software. As a result, there ma y be unintended for medical and/or spelling errors. Every attempt is made to correct dicta tion. If there are any questions or errors please contact our office. CSN: [id number] signed by Susie Walker MD at 05/06/2017 8:16 AM PDTd ocumented in this encounter Plan of Treatment +--------+ [...] [place] | | | | | | [address] | | | | | | | | +--------+ + + + + + + +--------+ + + | Name | Type | Priori | Associated Diagnoses | Order Schedule | | | | ty | | | + + +--------+ + + | Ambulatory referral | Outpatient | Routin | Thyroid cancer | Ordered: 04/23/2017 | | to Endocrinology | Referral | e | ([facility]) | | + + +--------+ + + documented as of this encounter Results US Head Neck Soft [...] | | | + +---------+ + + Thyroglobulin,Reflex (05/03/2017 10:00 AM PDT) + + + + + + | Component | Value | Ref Range | Performed | Pathologist | | | | | At | Signature | + + + + + + | Thyroglobul | <0.9 | 0.0 - 4.0 IU/mL | REFERENCE | | | in Ab | | | [facility] | | + + + + + + | Thyroglobul | 0.7 (L)Comment: The | 1.2 - 35.0 | REFERENCE | | | in | [facility] | ng/mL | [facility] | | | | Immunoenzymatic assay is | | | | | | used. For | | | | | | serialmonitoring of | | | | | | tumor markers it is | | | | | | advisable to use the | | | | | | same method.Other assay | | | | | | methods or kits may not | | | | | | be comparable.Testing | | | | | | Performed: [facility], [address] | | | | | | [address], [place] | | | | | | [address] | | | | + + + + + + + + | Specimen | + + | Blood | + + + + + + + | Performing | Address | City/State/Zipcode | Phone Number | | Organization | | | | + + + + + | [facility] | [address] | [place] [address] | [phone] | + + + + + TSH (05/03/2017 10:00 AM PDT) + + + + + + | Component | Value | Ref Range | Performed | Pathologist | | | | | At | Signature | + + + + + + | TSH | 3.27Comment: All TSH | 0.34 - 5.60 | [facility] | | | | samples are screened | uIU/mL | [facility] | | | | using a 2nd Generation | | MEDICAL | | | | test, and are reflexed | | CENTER - | | | | to a 3rd Generation test | | LABORATORY | | | | if indicated. | | | | + + + + + + + + | Specimen | + + | Blood | + + + + + + + | Performing | Address | City/State/Zipcode | Phone Number | | Organization | | | | + + + + + | [facility] | [address] | [place] | [phone] | | [facility] | | [address] | | | - LABORATORY | | | | + + + + + documented in this encounter Visit Diagnoses + + | Diagnosis | + + | Thyroid cancer (HCC) - Primary Malignant neoplasm of thyroid gland | + + documented in this encounter
--- OUTSIDE RECORDS SUMMARY | ~2020-07-17 | XMS | Encounter Summary ---
Demographics + + + | Address | [address] | | | [place] [address] | + + + | Home Phone | | + + + | Preferred Language | Unknown | + + + | Marital Status | Single | + + + | Pentecostal Affiliation | Unknown | + + + | Race | White | + + + | Ethnic Group | Not or | + + + Author + + + | Author | [facility] | | | and [place] | + + + | Organization | [facility] | | | [...] Team Providers + +------+ + | Care Contract Loader Name | Role | Phone | + [...] | | [facility] | MD aJred [address] | screening mammogram | | | | [facility] [address] [place], [place] | for high-risk | | | | [facility] | [address] | patient (Primary Dx) | | | | [place] [address] | | | | | | [phone] | | | +--------+ + + + [...] | | | | | | [place], [place] | | | | | | [address] | | | | | | | [...]
--- OUTSIDE RECORDS SUMMARY | ~2020-07-17 | XMS | Encounter Summary ---
Demographics + + + | Address | [address] | | | [place] [address] | + + + | Home Phone | | + + + | Preferred Language | Unknown | + + + | Marital Status | Single | + + + | Hindu Affiliation | Unknown | + + + | Race | White | + + + | Ethnic Group | Not or | + + + Author + + + | Author | [facility] | | | and [place] | + + + | Organization | [facility] | | | [...] Team Providers + +------+ + | Care Hot Dog Vendor Name | Role | Phone | + +------+ + | Zuleyka Martínez | PCP | | + +------+ + Reason for Referral Diagnostic/Screening (Routine) +--------+--------+ + + + + | Status | Reason | Specialty | Diagnoses / | Referred By | Referred To | | | | | Procedures | Contact | Contact | +--------+--------+ + + + + | Closed | | Radiology | Diagnoses | Riegert, | [facility] | | | | | 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, | [address] | | | | | adenocarcino | MD [address] | [place], | | | | | ma of brain | [address] | [place] | | | | | ([facility]ER[facility]) | [place], | [address] | | | | | Procedures | [place] [address] | Phone: | | | | | MRI Brain w | Phone: | [phone] | | | | | wo Contrast | [phone] | Fax: | | | | | KP | Fax: | [phone] | | | | | FUTURE ORDER | [phone] | | | | | | (JUNE | | | | | | | 2019) | | | +--------+--------+ + + + + Reason for Visit Diagnostic/Screening (Routine) +--------+--------+ + + + + | Status | Reason | Specialty | Diagnoses / | Referred By | Referred To | | | | | Procedures | Contact | Contact | +--------+--------+ + + + + | Closed | | Radiology | Diagnoses | Albina, | [facility] | | | | | Secondary | Susie Coleman, | [address] | | | | | adenocarcino | MD [address] | [place], | | | | | ma of brain | [address] | [place] | | | | | (HCC) | [place], | [address] | | | | | Procedures | [place] [address] | Phone: | | | | | MRI Brain w | Phone: | [phone] | | | | | wo Contrast | [phone] | Fax: | | | | | KP | Fax: | [phone] | | | | | FUTURE ORDER | [phone] | | | | | | (JUNE | | | | | | | 2019) | | | +--------+--------+ + + + + Encounter Details +--------+ + + + + | Date | Type | Department | Care Team | Description | +--------+ + + + + | 06/17/ | Hospital | [facility] | Susie Montemayor | 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[address] [place], | [address] [place], [place] | brain (HCC) | | | | [place] [address] | [address] | | | | | [phone] | | | +--------+ + + + [...] Daily. | tablet | | 20 | | | tablet | | | [...] +---------+ + + | dexamethasone | Take 2 tablets (4 mg | 30 | 0 | 04/23/20 | | | (DECADRON) 2 MG | total) by mouth 2 | tablet | | 20 | 0 | | tablet | times daily (with | | | | | | | breakfast & dinner) | | | | | | | For 3 days, then | | | | | | | decrease by 2 mg | | | | | | | every 3 days, then | | | | | | | stop. | | | | | + + [...] [place] | | | | | | [address] | | | | | | | | +--------+ + + + + documented as of this encounter Procedures + +--------+ + + + | Procedure Name | Priori | Date/Time | Associated Diagnosis | Comments | | | ty | | | | + +--------+ + + + | MRI BRAIN W WO | Routin | 06/17/2020 | Secondary | Results for this | | CONTRAST | e | 11:25 AM | adenocarcinoma of | procedure are in the | | | | PDT | brain ([facility]) | results section. | + +--------+ + + + documented in this encounter Results MRI Brain w wo Contrast (06/17/2020 11:25 AM PDT) + + | Specimen | + + | | + + + + + | Impressions | Performed At | + + + | Interval partial involution of the right periventricular mass | [facility] | | resulting in decreased overall size, associated altered | | | signal/enhancement, and mass effect. Resolving signal changes | | | along the biopsy tract. Susceptibility weighted artifact within | | | the ventricular system is likely related to a small amount of | | | postbiopsy intraventricular hemorrhage. Stable minimal white | | | matter disease elsewhere. Electronically signed by Milton Mcnair | | | MD Renate 06/17/2020 2:56 PM | | + + + + + + | Narrative | Performed At | + + + | EXAM: MRI BRAIN W WO CONTRAST dated 06/17/2020 10:35 AM | [facility] | | HISTORY: Brain/ANDROID PROGRAMMER neoplasm, assess treatment response COMPARISON: | | | MRI 01/22/2020. CT 02/27/2020. MRI 03/11/2020. TECHNIQUE: | | | Multiplanar, multisequence imaging of the brain was performed in the | | | 3 T MR scanner prior to and following the uneventful intravenous | | | administration of 10 cc of Gadavist contrast. FINDINGS: | | | Interval decrease in size, solid component, and enhancement of the | | | mass along the right lateral ventricle near the caudate. The residual | | | is mostly a rim-enhancing abnormality that measures approximately 9 x | | | 7 x 7 mm compared to 16 x 16 x 16 mm. There is interval decrease in | | | associated enlargement of the adjacent caudate head and slight | | | decrease in the FLAIR hyperintensity. The mass no longer contacts or | | | has mass effect upon the septum. The area of enhancement at the | | | biopsy entrance site has resolved. There is enhancement within the | | | cavernous sinus and dural venous sinuses consistent with patency. | | | There is enhancement within the major intracranial vessels consistent | | | with patency. There is susceptibility weighted artifact scattered | | | throughout the right lateral ventricle and in the fourth ventricle | | | which is likely related to some postbiopsy intraventricular | | | hemorrhage. No areas of restricted diffusion to suggest acute or | | | subacute ischemia. There are stable others scattered areas of T2 | | | and FLAIR hyperintensity. There is less FLAIR hyperintensity along | | | the biopsy tract. There are no abnormal extra-axial fluid | | | collections. The ventricles are acceptable in size and | | | configuration. The mastoid air cells are clear. No significant | | | paranasal sinus disease. The globes and retroconal contents are | | | intact and are unremarkable. The posterior nasopharyngeal and | | | oropharyngeal soft tissues are unremarkable. Postsurgical changes in | | | the right scalp and calvarium related to the prior biopsy. | | + + + + + | Procedure Note | + + | [facility], [id number] - 06/17/2020 3:00 PM PDT EXAM: MRI BRAIN W WO CONTRAST dated 06/17/2020 | | 10:35 AMHISTORY: Brain/ANDROID PROGRAMMER neoplasm, assess treatment responseCOMPARISON: MRI 01/22/2020. | | CT 02/27/2020. MRI 03/11/2020.TECHNIQUE: Multiplanar, multisequence imaging of the brain | | wasperformed in the 3 T MR scanner prior to and following the uneventfulintravenous | | administration of 10 cc of Gadavist contrast. FINDINGS:Interval decrease in size, solid | | component, and enhancement of themass along the right lateral ventricle near the | | caudate. The residualis mostly a rim-enhancing abnormality that measures approximately 9 | | x7 x 7 mm compared to 16 x 16 x 16 mm. There is interval decrease inassociated | | enlargement of the adjacent caudate head and slightdecrease in the FLAIR hyperintensity. | | The mass no longer contacts orhas mass effect upon the septum.The area of enhancement | | at the biopsy entrance site has resolved.There is enhancement within the cavernous sinus | | and dural venoussinuses consistent with patency. There is enhancement within the | | majorintracranial vessels consistent with patency.There is susceptibility weighted | | artifact scattered throughout theright lateral ventricle and in the fourth ventricle | | which is likelyrelated to some postbiopsy intraventricular hemorrhage. No areas | | ofrestricted diffusion to suggest acute or subacute ischemia.There are stable others | | scattered areas of T2 and FLAIRhyperintensity. There is less FLAIR hyperintensity along | | the biopsytract. There are no abnormal extra-axial fluid collections. Theventricles are | | acceptable in size and configuration.The mastoid air cells are clear. No significant | | paranasal sinusdisease. The globes and retroconal contents are intact and | | areunremarkable. The posterior nasopharyngeal and oropharyngeal softtissues are | | unremarkable. Postsurgical changes in the right scalp andcalvarium related to the prior | | biopsy.IMPRESSION: Interval partial involution of the right periventricular | | massresulting in decreased overall size, associated alteredsignal/enhancement, and mass | | effect.Resolving signal changes along the biopsy tract.Susceptibility weighted artifact | | within the ventricular system islikely related to a small amount of postbiopsy | | intraventricularhemorrhage.Stable minimal white matter disease elsewhere.Electronically | | signed by Milton Dewitt MD 06/17/2020 2:56 PM | |related to some postbiopsy intraventricular hemorrhage. No areas of | |restricted diffusion to suggest acute or subacute ischemia. | | | |There are stable others scattered areas of T2 and FLAIR | |hyperintensity. There is less FLAIR hyperintensity along the biopsy | |tract. There are no abnormal extra-axial fluid collections. The | |ventricles are acceptable in size and configuration. | | | |The mastoid air cells are clear. No significant paranasal sinus | |disease. The globes and retroconal contents are intact and are | |unremarkable. The posterior nasopharyngeal and oropharyngeal soft | |tissues are unremarkable. Postsurgical changes in the right scalp and | |calvarium related to the prior biopsy. | | | |IMPRESSION: | | | |Interval partial involution of the right periventricular mass | |resulting in decreased overall size, associated altered | |signal/enhancement, and mass effect. | | | |Resolving signal changes along the biopsy tract. | | | |Susceptibility weighted artifact within the ventricular system is | |likely related to a small amount of postbiopsy intraventricular | |hemorrhage. | | | |Stable minimal white matter disease elsewhere. 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
--- OUTSIDE RECORDS SUMMARY | ~2020-07-17 | XMS | Encounter Summary ---
Demographics + + + | Address | [address] | | | [place] [address] | + + + | Home Phone | | + + + | Preferred Language | Unknown | + + + | Marital Status | Single | + + + | Pentecostalism Affiliation | Unknown | + + + | Race | White | + + + | Ethnic Group | Not or | + + + Author + + + | Author | [facility] | | | and [place] | + + + | Organization | [facility] | | | [...] Team Providers + +------+ + | Care Signals Intelligence Analyst Name | Role | Phone | + +------+ + | Zuleyka Martínez | PCP | | + +------+ + Encounter Details +--------+ + + + + | Date | Type | Department | Care Team | Description | +--------+ + + + + | 10/14/ | Hospital | [facility] | Susie Montemayor | Abnormal stress ECG | | 2016 | Encounter | MED CTR MEDICAL | MD Jared [address] | with treadmill | | | | [facility]OGY CL[facility] [address] | [place], [place] | (Primary Dx); | | | | [address] | [address] | Malignant neoplasm | | | | [place] [address] | | of thyroid gland | | | | [phone] | | (HCC); Precordial | | | | | | pain | +--------+ + + + + Social History + +-------+ +--------+------+ | Tobacco Use | Types | Packs/Day | Years | Date | | | | | Used | | + +-------+ +--------+------+ | Current Every Day | | | | | | Smoker | | | | | + +-------+ +--------+------+ + +---+---+---+ | Smokeless Tobacco: | | | | | Never Used | | | | + +---+---+---+ + + +---------+ + | Alcohol Use | Drinks/Week | oz/Week | Comments | + + +---------+ + | No | | | | + + +---------+ + + + [...] 2 TS PO 3 XD | | 1 | 10/12/20 | | | 0.25 mg tablet | PRA | | | 16 | 7 | + + + +---------+ [...] +---------+ + + | LORazepam (ATIVAN) | TK 1 TO 2 TS PO 4 XD | | 2 | 07/29/20 | | | 0.5 mg tablet | PRN | | | 16 | 7 | + + + +---------+ + + | ondansetron | Take 1 tablet by | 15 | 0 | 09/29/20 | | | (ZOFRAN ODT) 4 mg | mouth every 8 hours | tablet | | 16 | 7 | | disintegrating | as needed for | | | | | | tablet | Nausea. | | | | | + + + +---------+ + + | | TK 1 TO 2 TS PO Q 4 | | 0 | 08/12/20 | | | oxyCODONE-acetaminop | H PRN P | | | 16 | 7 | | hen (PERCOCET) 5-325 | | | | | | | mg per tablet | | | | | | + + + +---------+ + + | pilocarpine | Take 1 tablet by | 15 | 0 | 10/12/20 | | | (SALAGEN) 5 mg | mouth 3 times daily | tablet | | 16 | 6 | | tablet | for 15 doses. | | | | | + + + +---------+ + + documented as of this encounter Plan of Treatment +--------+ + + + + | Date | Type | Specialty | Care Team | Description | +--------+ + + + + | 11/22/ | Appointment | Radiation Oncology | Susie Montemayor | | | 2020 | | | MD Jared [address] | | | | | | [place] | | | | | | [address] | | | | | | | | +--------+ + + + + documented as of this encounter Procedures + +--------+ + + + | Procedure Name | Priori | Date/Time | Associated Diagnosis | Comments | | | ty | | | | + +--------+ + + + | THYROGLOBULIN | STAT | 10/14/2016 | Malignant neoplasm | Results for this | | | | 8:05 AM | of thyroid gland | procedure are in the | | | | PST | (HCC) | results section. | + +--------+ + + + | TSH | STAT | 10/14/2016 | Malignant neoplasm | Results for this | | | | 8:05 AM | of thyroid gland | procedure are in the | | | | PST | (HCC) | results section. | + +--------+ + + + documented in this encounter Results TSH (10/14/2016 8:05 AM PST) + + + + + + | Component | Value | Ref Range | Performed | Pathologist | | | | | At | Signature | + + + + + + | TSH | 96.55 (H)Comment: All | 0.34 - 5.60 | [facility] | | | | TSH samples are screened | uIU/mL | [facility] | | | | using a 2nd [...] ST. | [address] | [place] | [phone] | | [facility] | | [address] | | | - LABORATORY | | | | + + + + + Thyroglobulin,Reflex (10/14/2016 8:05 AM PST) + + + + + + | Component | Value | Ref Range | Performed | Pathologist | | | | | At | Signature | + + + + + + | Thyroglobul | <0.9Comment: Testing | 0.0 - 4.0 IU/mL | REFERENCE | | | in Ab | Performed: [facility], [address] | | [facility] | | | | [address], [place] | | | | | | [address] | | | | + + + + + + | Thyroglobul | 3.1Comment: [facility] | 1.2 - 35.0 | REFERENCE | | | in | [facility] | ng/mL | [facility] | | | | assay is used. For | | | | | [...] [address]. | | | | | | [address], [place] | | | | | | [address] | | | | + + + + + + + + | Specimen | + + | Blood specimen | | (specimen) | + + + + + + + | Performing | Address | City/State/Zipcode | Phone Number | | Organization | | | | + + + + + | [facility] | [address] | [place] [address] | [phone] | + + + + + documented in this encounter Visit Diagnoses + + | Diagnosis | + + | Abnormal stress ECG with treadmill - Primary Other nonspecific abnormal | | cardiovascular system function study | + + | Malignant neoplasm of thyroid gland (HCC) Malignant neoplasm of thyroid gland | + + | Precordial pain | + + documented in this encounter"
--- OUTSIDE RECORDS SUMMARY | ~2020-07-17 | XMS | Encounter Summary ---
Demographics + + + | Address | [address] | | | [place] [address] | + + + | Home Phone [...] Author + + + | Author | [facility] | | | and [place] | + + + | Organization | [facility] | | | [...] Team Providers + +------+ + | Care Wearing Apparel Presser Name | Role | Phone | + +------+ + | Zuleyka Martínez | PCP | | + +------+ + Reason for Visit + +--------+ + | Reason | Onset | Comments | | | Date | | + +--------+ + | Patient Concerns | 01/22/ | | | | 2020 | | + +--------+ + Encounter Details +--------+ + + + + | Date | Type | Department | Care Team | Description | +--------+ + + + + | 01/22/ | Telephone | [facility] | Susie Montemayor | Patient Concerns | | 2020 | | MED CTR MEDICAL | MD Jared [address] | | | | | [facility]OGY CLIN[facility] [address] | [place], [place] | | | | | [address] [facility] | [address] | | | | | [place] [address] | | | | | | [phone] | | | +--------+ + + + [...] + + documented as of this encounter Miscellaneous Notes Telephone Encounter - Serenity Dunn RN - 01/24/2020 1:14 PM PDTDrMaximiliano Montemayor and Dr. Starla jackson have communicated regarding Olena's MRI results, Dr. Salazar plans to contact patient. He has placed a neurosurgery consult on 01/24/20. elephone Encounter - Dima Lehman - 01/23/2020 9 :08 AM PDTMichelle called [phone] She is really hoping for results of MRI from yesterday morning. Thank you documented in this encounter Plan of Treatment +--------+ + + + + | Date | Type | Specialty | Care Team | Description | +--------+ + + + + | 11/22/ | Appointment | Radiation Oncology | Susei Montemayor | | | 2020 | | | MD [address] | | | | | | [place] | | | | | | [address] | | | | | | | | +--------+ + + + + documented as of this encounter Visit Diagnoses Not on filedocumented in this encounter"
--- OUTSIDE RECORDS SUMMARY | ~2020-07-17 | XMS | Encounter Summary ---
Demographics + + + | Address | [address] | | | [place] [address] | + + + | Home Phone | | + + + | Preferred Language | Unknown | + + + | Marital Status | Single | + + + | Restorationism Affiliation | Unknown | + + + | Race | White | + + + | Ethnic Group | Not or | + + + Author + + + | Author | [facility] | | | and [place] | + + + | Organization | [facility] | | | [...] Team Providers + +------+ + | Care Publication Distributor Name | Role | Phone | + +------+ + | Zuleyka Martínez | PCP | | + +------+ + Reason for Visit Auth/Cert +--------+--------+ + + + + | Status | Reason | Specialty | Diagnoses / | Referred By | Referred To | | | | | Procedures | Contact | Contact | +--------+--------+ + + + + | | | | Diagnoses | | [place], | | | | | Brain mass | | DO Lemuel | | | | | Procedures | | [address] | | | | | [place] | | [address] | | | | | STEREOTACTIC | | B | | | | | BRAIN | | [place] | | | | | [place] | | [address] | | | | | [place] | | Phone: | | | | | STEREOTACTIC | | [phone] | | | | | COMP ASSIST | | Fax: | | | | | | | [phone] | | | | | PROC,CRANIAL | | | | | | | ,INTRADURAL | | | | | | | | | | | | | | Stereotactic | | | | | | | biopsy of | | | | | | | right | | | | | | | frontal | | | | | | | lesion. | | | | | | | Possible | | | | | | | conversion | | | | | | | to open | | | +--------+--------+ + + + + Encounter Details +--------+ + + + + | Date | Type | Department | Care Team | Description | +--------+ + + + + | 02/26/ | Anesthesia | [facility] | Denita Cottrell, | | | 2020 | Event | [facility] | [address] | | | | | [address]PER[address] | [place] [address] | | | | | [address] | [phone] | | | | | [place], [place] | | | | | | [address] | | | | | | [phone] | | | +--------+ + + + + Anesthesia Record + + + + + | Procedure Name | Responsible | Anesthesia Start | Anesthesia Stop Time | | | Anesthesiologist | Time | | + + + + + | Stereotactic biopsy | Denita Cottrell MD | 02/27/20 07 | 02/27/20 09 | | of right frontal | | | | | lesion. Possible | | | | | conversion to open | | | | | (Right Head) | | | | + + + + + +----+---+ + + | Da | T | Event | Comment | | te | i | | | | | m | | | | | e | | | +----+---+ + + | 04 | 0 | An Start | Reassessment prior to anesthesia induction/procedure. | | /2 | 7 | | | | 8/ | 0 | | | | 20 | 5 | | | | 20 | | | | +----+---+ + + | | 0 | Antibiotic | | | | 7 | Given | | | | 1 | | | | | 0 | | | +----+---+ + + | | 0 | An | | | | 7 | Induction | | | | 1 | | | | | 3 | | | +----+---+ + + | | 0 | An | | | | 7 | Intubation | | | | 1 | | | | | 8 | | | +----+---+ + + | | 0 | Anesthesia | | | | 7 | Ready | | | | 2 | | | | | 8 | | | +----+---+ + + | | 0 | First | | | | 7 | Inc/Proc St | | | | 5 | | | | | 7 | | | +----+---+ + + | | 0 | Eleele | | | | 7 | 43-degrees | | | | 5 | | | | | 9 | | | +----+---+ + + | | 0 | Extubation/ | | | | 8 | Airway LDA | | | | 4 | Removal | | | | 9 | | | +----+---+ + + | | 0 | an stop | | | | 8 | data | | | | 5 | | | | | 7 | | | +----+---+ + + | | 0 | An Stop | Patient handed off to recovery nurse. | | | 0 | | | | | 2 | | | +----+---+ + + +------+ | Meds | +------+ + + + | Name | Total | + + + | fentaNYL | 100 mcg | + + + | lidocaine 2% | 60 mg | + + + | propofol | 190 mg | + + + | rocuronium | 50 mg | + + + | dexamethasone | 8 mg | + + + | ondansetron | 4 mg | + + + | phenylephrine | 125 mcg | + + + | neostigmine | 8 mg | + + + | glycopyrrolate | 1.2 mg | + + + | ceFAZolin in dextrose (ANCEF) | 2 g | | IVPB 2 g | | + + + | scopolamine TD | 1 patch | + + + | phenylephrine | 2,585 mcg | + + + | remifentanil | 387.86 mcg | + + + | niCARdipine in saline (CARDENE) | 0.83 mg | | 0.2 mg/mL infusion | | + + + | balanced electrolytes in water | 1,100 mL | | (PLASMALYTE-148/NORMOSOL-R) | | | infusion | | + + + + + | Name | + + | N2O Flow Rate (L/Min) | + + | O2 Flow Rate (L/Min) | + + | Insp O2 | + + | Exp N2O | + + | Exp SEV | + + | Air Flow Rate (L/Min) | + + + + | No blood administrations on file. | + + +--------+ + + + | Type | Details | Placement | Removal | +--------+ + + + | Wound | 02/27/20; 0837; Incision; Right; | 02/27/20 0837 by | | | | head | Flower Olvera | | | | | BILL Diaz | | +--------+ + + + | Urethr | 02/27/20; indicated due to | 02/27/20 0000 by | 02/27/20 1444 by | | al | specific surgical procedure; | Flower Olvera | Tiffany Slaughter, | | Cathet | indwelling double lumen catheter; | BILL Diaz | BILL | | er | latex; 16; 10; drainage bag to | | | | | dependent drainage; 02/27/20; | | | | | 1444 | | | +--------+ + + + | Periph | 02/27/20; 0650; Left; Forearm; 20 | 02/27/20 0650 by | 02/28/20 0934 by | | eral | gauge; 02/28/20; 0934 | Gloria Swan RN | Tiffany Slaughter, | | IV | | | RN | +--------+ + + + | Airway | Placement Date: 02/27/20; | 02/27/20719 by | 02/27/20 0849 by | | | Placement Time: 719 (created via | Denita Cottrell MD | Denita Cottrell MD | | | procedure documentation); Mask | | | | | Ventilation: EZ w/OA; Airway | | | | | Grade: 2b; Successful Technique: | | | | | Reji; Laryngoscope Blade Size: | | | | | 2; Attempts: 2; Airway Type: | | | | | endotracheal; Airway Tube Secured | | | | | At: 22; Trauma: none; Other | | | | | Equipment: stylette; Placement | | | | | Check: exhaled CO2 detection | | | | | device, bilateral chest rise, | | | | | breath sounds equal bilaterally; | | | | | Removal Date: 02/27/20; Removal | | | | | Time: 848 | | | +--------+ + + + | Arteri | 02/27/20; 725 (created via | 02/27/20725 by | 02/27/201429 by | | al | procedure documentation); | Denita Cottrell MD | Tiffany Slaughter, | | Line | Chlorhexidine/Isopropyl Alcohol; | | RN | | | under GA; Right; radial artery; | | | | | 20 gauge; continuous blood | | | | | pressure monitoring, frequent | | | | | blood gas measurement; ultrasound | | | | | guided; other (see comments); | | | | | 02/27/20; 1430 | | | +--------+ + + + | Periph | 02/27/20; 727 (created via | 02/27/20727 by | 02/28/20933 by | | eral | procedure documentation); Right; | Denita Cottrell MD | Tiffany Slaughter, | | IV | 18 gauge; 02/28/20; 34 | | RN | +--------+ + + + documented in this encounter Social History + + + +--------+ + [...] + + documented as of this encounter OR Notes Anesthesia Postprocedure Evaluation - Denita Cottrell MD - 02/27/2020 9:07 AM PDTFormatti ng of this note might be different from the original. ANESTHESIA POSTANESTHESIA EVALUATION Olena Rider 59 y.o. female 1960 [id number] Procedure(s) Stereotactic biopsy of right frontal lesion. Possible conversion to open (Rig ht Head) Cooperates? Yes Mental Status Performs simple tasks. Respiratory Satisfactory - Airway patent (self maintained). Cardiovascular Satisfactory - Blood pressure and heart rate acceptable Temperature Satisfactory Pain Satisfactory N/V Control Satisfactory Hydration Satisfactory - No signs of dehydration Adverse Events ADVERSE EVENTS: No adverse events Vitals Value Taken Time Temp 36.4 C (97.6 F) 02/27/2020 9:00 AM Pulse 75 02/27/2020 9:04 AM Resp 16 02/27/2020 9:00 AM BP 129/70 02/27/2020 9:00 AM Arterial Line BP 131/67 02/27/2020 9:04 AM Arterial Line BP 2 SpO2 99 % 02/27/2020 9:04 AM Vitals shown include unvalidated device data. Electronically signed by Denita Cottrell MD 02/27/2020 9:07 AM [facility] nesthesia Procedure Notes - Denita Cottrell MD - 02/27/2020 7:48 AM PDTAssoc iated Order(s): PIV Intravenous Line Placement 02/27/2020 7:28 AM Indication: routine Preparation: alcohol Side: right Size: 18 g Localization technique: landmark Securement: transparent dressing and tape Placed by: Denita Cottrell MD Authorizing provider: Denita Cottrell MD Please see intraoperative grid for any additional medication documentation. nesthesia Procedure Notes Denita Murray MD - 02/27/2020 7:42 AM PDTAssociated Order(s): ALineArterial Line Placement 02/27/2020 7:26 AM Indication: continuous blood pressure monitoring and acid-base/laboratory analysis Prep solution: chlorhexidine/isoproplyl alcohol Patient was: under GA Laterality: right Artery:radial Size: 20 g Localization technique: ultrasound Securement: transparent dressing and tape Performed by: Denita Cottrell MD Authorizing provider: Denita Cottrell MD Please see intraoperative grid for any additional medication documentation. nesthesia Procedure Notes - Denita Cottrell MD - 02/27/2020 7:42 AM PDTAssociated Order(s): AirwayAnesthesia A irway Placement 02/27/2020 7:20 AM Preprocedure check: patient identified, suction, airway equipment checked, patient reassess ment prior to induction, airway assessed and oxygen Rapid Sequence Induction: no Mask ventilation: easy with oral airway Successful technique: Mendoza Laryngoscope blade size: 2 Airway grade: 2b (Only posterior extremity of glottis seen or only arytenoid cartilages) Other equipment: stylette Attempts: 2 Airway type: endotracheal Cuffed: cuffed Route, reference point: left side of mouth Tube depth: 22 cm Tube secured with: adhesive tape Trauma: none Tube placement verification: bilateral chest rise, equal bilateral breath sounds and carbon dioxide detection Performing provider: Denita Cottrell MD Authorizing provider: Denita Cottrell MD Please see intraoperative grid for any additional medication documentation. nesthesia Preprocedu re Evaluation - Denita Cottrell MD - 02/26/2020 9:50 PM PDTFormatting of this note might b e different from the original. ANESTHESIA PREANESTHESIA EVALUATION Olena Rider 59 y.o. female 1960 [id number] Procedure(s): Stereotactic biopsy of right frontal lesion. Possible conversion to open (Rig ht Head) Medical,anesthesia, drug, allergy histories reviewed, NPO status verified. ECG reviewed. Labs reviewed. (-) perioperative beta-bret/statin not given/taken, reason : not applicable/Not taking Beta-Bret. Review of Systems / Med History Anesthesia History (+) PONV. Cardiovascular Echo 2016 Summary mildly dilated left atrium. No evidence of thrombus or mass within left atrium. Left ventricle is normal in size and function. Ejection fraction is estimated at 72 %. No evidence of pericardial effusion. No evident pleural effusion identified. Structurally normal mitral valve without significant stenosis Ther is mild regurgitation. Trivial aortic regurgitation is noted. Aortic valve appears trileaflet. Structurally normal tricuspid valve with mild regurgitation. Structurally normal tricuspid valve with mild regurgitation. normal estimated RV pressure of 27.1 + RA pressure Left ventricle is normal in size and function. Ejection fraction is estimated at 72 %. Normal right atrium. Normal right ventricular structure and function. Structurally normal mitral valve without significant stenosis There is mild regurgitation. diastolic dysfunction.. Pulmonary (-) recent URI.(+) tobacco use.(+) ex-smoker: 2019. Gastrointestinal/Hepatic (+) acid reflux. Endocrine (+) hypothyroidism. Cancer (+) breast cancer, lung cancer, radiation treatment. Neuromuscular (+) history of headaches, intracranial mass, chronic pain. 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 Neck: full ROM, extends >30 degrees. Jaw protru primo normal. Facial hair present: No CV Rhythm regular. Rate normal. Pulm Clear to auscultation bilaterally. Neuro grossly normal. Anesthesia Plan ASA: 3 Type: General. Plan GA w/ OET, pivx2, arterial line Induction: Intravenous. Potential problems: None anticipated. Monitors: Standard ASA monitors. Arterial line to aid in hemodynamic monitoring. Consent statement: Anesthetic plan, alternatives, risks and benefits discussed with patient. backache, blindne ss, , discussed risks to teeth, disability, drug reaction, heart problems, ICU placemen t, infection, muscle aches, nausea, pain, perioperative CV events, post-op intubation, respi ratory events, sore throat, stroke, voice injury, delirium Blood transfusion concerns: Consenting person understands and agrees to proceed. documented in this en counter Miscellaneous Notes Addendum Note - Denita Cottrell MD - 02/27/2020 2:34 PM PDT Addendum created 02/27/20 1434 by Denita Cottrell MD Intraprocedure Meds edited ddendum Note - Denita Cottrell MD - 02/27/2020 9:08 AM PDT Addendum created 02/27/20 0908 by Denita Cottrell MD Clinical Note Signed nesthesia Post-op H andoff - Denita Cottrell MD - 02/27/2020 9:07 AM PDTFormatting of this note might be diffe rent from the original. ANESTHESIA HANDOFF NOTE Olena Rider 59 y.o. female 1960 [id number] Stereotactic biopsy of right frontal lesion. Possible conversion to open (Right Head) HANDOFF NOTE Handoff Protocol Used: post-procedure handoff checklist completed The following were completed during the transfer of care: 1. Identification of patient 2. Identification of responsible practitioner (primary service) 3. Discussion of pertinent medical history 4. Discussion of the surgical/procedure course (procedure, reason for surgery, procedure pe rformed) 5. Intraoperative anesthetic management and issues/concerns 6. Expectations/plans for the early post-procedure period 7. Opportunity for questions and acknowledgement of understanding of report from receiving team Patient Location: Phase I Condition: alert and awake Airway/O2: face mask with O2 Multimodal analgesia: multimodal analgesia not used between 6 hours prior to anesthesia sta rt to PACU discharge Multimodal analgesia not used reason: A medical reason exists for NOT using multimodal anal gesia. JOHNSON x 4 to command; coherent, speaking full sentences. The significant anesthesia concerns and VS in Epic were reviewed with the receiving team. Denita Cottrell MD 02/27/2020 9:07 AM [facility] documented in this encounter Plan of Treatment +--------+ + + + + | Date | Type | Specialty | Care Team | Description | +--------+ + + + + | 11/22/ | Appointment | Radiation Oncology | Susie Montemayor | | | 2020 | | | MD Jared [address] | | | | | | [place], [place] | | | | | | [address] | | | | | | | | +--------+ + + + + documented as of this encounter Procedures + +--------+ + + + | Procedure Name | Priori | Date/Time | Associated Diagnosis | Comments | | | ty | | | | + +--------+ + + + | ANE PERIPHERAL IV | Routin | 02/27/2020 | | Results for this | | LINE NOTE | e | 7:48 AM | | procedure are in the | | | | PDT | | results section. | + +--------+ + + + | ANE ARTERIAL LINE | Routin | 02/27/2020 | | Results for this | | NOTE | e | 7:42 AM | | procedure are in the | | | | PDT | | results section. | + +--------+ + + + | ANE AIRWAY NOTE | Routin | 02/27/2020 | | Results for this | | | e | 7:42 AM | | procedure are in the | | | | PDT | | results section. | + +--------+ + + + documented in this encounter Results PIV (02/27/2020 7:48 AM PDT) + + + | Narrative | Performed At | + + + | Denita Cottrell MD 02/27/2020 7:49 AM Intravenous Line | | | Placement 02/27/2020 7:28 AM Indication: routine Preparation: | | | alcohol Side: right Size: 18 g Localization technique: landmark | | | Securement: transparent dressing and tape Placed by: Denita Rivas | | | MD Simba Authorizing provider: Denita Cottrell MD Please see | | | intraoperative grid for any additional medication documentation. | | | | | + + + Jessica (02/27/2020 7:42 AM PDT) + + + | Narrative | Performed At | + + + | Denita Cottrell MD 02/27/2020 7:48 AM Arterial Line | | | Placement 02/27/2020 7:26 AM Indication: continuous blood pressure | | | monitoring and acid-base/laboratory analysis Prep solution: | | | chlorhexidine/isoproplyl alcohol Patient was: under GA Laterality: | | | right Artery:radial Size: 20 g Localization technique: ultrasound | | | Securement: transparent dressing and tape Performed by: Denita Rivas | | | MD Simba Authorizing provider: Denita Cottrell MD Please see | | | intraoperative grid for any additional medication documentation. | | + + + Airway (02/27/2020 7:42 AM PDT) + + + | Narrative | Performed At | + + + | Denita Cottrell MD 02/27/2020 7:42 AM Anesthesia Airway | | | Placement 02/27/2020 7:20 AM Preprocedure check: patient | | | identified, suction, airway equipment checked, patient reassessment | | | prior to induction, airway assessed and oxygen Rapid Sequence | | | Induction: no Mask ventilation: easy with oral airway Successful | | | technique: Mendoza Laryngoscope blade size: 2 Airway grade: 2b | | | (Only posterior extremity of glottis seen or only arytenoid | | | cartilages) Other equipment: stylette Attempts: 2 Airway type: | | | endotracheal Cuffed: cuffed Route, reference point: left side of | | | mouth Tube depth: 22 cm Tube secured with: adhesive tape Trauma: | | | none Tube placement verification: bilateral chest rise, equal | | | bilateral breath sounds and carbon dioxide detection Performing | | | provider: Denita Cottrell MD Authorizing provider: Denita Cottrell MD | | | Please see intraoperative grid for any additional | | | medication documentation. | | + + + documented in this encounter Visit Diagnoses Not on filedocumented in this encounter Administered Medications + +--------+ +------+------+------+ | Medication Order | MAR | Action | Dose | Rate | Site | | | Action | Date | | | | + +--------+ +------+------+------+ | ceFAZolin in dextrose (ANCEF) | Given | 02/27/20 | 2 g | | | | IVPB 2 g 2 g, Intravenous, | | 20 7:10 | | | | | Administer over 30 Minutes, Prior | | AM PDT | | | | | to Incision, Starting Tue | | | | | | | 02/27/20 at 0611, For 1 dose, Keep | | | | | | | in refrigerator., Pre-op, | | | | | | | Indications: Surgical Prophylaxis | | | | | | + +--------+ +------+------+------+ +---+---+ | | | +---+---+ + +-------+ +------+---+---+ | dexamethasone (DECADRON) 4 | Given | 02/27/20 | 8 mg | | | | mg/mL injection Intravenous, | | 20 7:43 | | | | | PRN, Starting Tu02/27/20 at | | AM PDT | | | | | 0743, Anesthesia Intra-op | | | | | | + +-------+ +------+---+---+ +---+---+ | | | +---+---+ + +-------+ +--------+---+---+ | fentaNYL (PF) injection | Given | 02/27/20 | 25 mcg | | | | Intravenous, PRN, Starting e | | 20 7:31 | | | | | 02/27/20 at 0713, Anesthesia | | AM PDT | | | | | Intra-op | | | | | | + +-------+ +--------+---+---+ +-------+ +--------+---+---+ | Given | 02/27/20 | 75 mcg | | | | | 20 7:13 | | | | | | AM PDT | | | | +-------+ +--------+---+---+ +---+---+ | | | +---+---+ + +-------+ +--------+---+---+ | glycopyrrolate (ROBINUL) | Given | 02/27/20 | 0.4 mg | | | | injection Intravenous, PRN, | | 20 8:39 | | | | | Starting 02/27/20 at 0748, | | AM PDT | | | | | Anesthesia Intra-op | | | | | | + +-------+ +--------+---+---+ +-------+ +--------+---+---+ | Given | 02/27/20 | 0.2 mg | | | | | 20 8:35 | | | | | | AM PDT | | | | +-------+ +--------+---+---+ | Given | 02/27/20 | 0.2 mg | | | | | 20 7:57 | | | | | | AM PDT | | | | +-------+ +--------+---+---+ +---+---+ | | | +---+---+ + +-------+ +-------+---+---+ | lidocaine (PF) 2% injection | Given | 02/27/20 | 60 mg | | | | Intravenous, PRN, Starting Tue | | 20 7:13 | | | | | 02/27/20 at 0713, Anesthesia | | AM PDT | | | | | Intra-op | | | | | | + +-------+ +-------+---+---+ +---+---+ | | | +---+---+ + +-------+ +------+---+---+ | neostigmine (BLOXIVERZ) 1 mg/mL | Given | 02/27/20 | 4 mg | | | | injection Intravenous, PRN, | | 20 8:39 | | | | | Starting 02/27/20 at 0835, | | AM PDT | | | | | Anesthesia Intra-op | | | | | | + +-------+ +------+---+---+ +-------+ +------+---+---+ | Given | 02/27/20 | 4 mg | | | | | 20 8:35 | | | | | | AM PDT | | | | +-------+ +------+---+---+ +---+---+ | | | +---+---+ + +---------+ + + +---+ | niCARdipine in saline (CARDENE) | New Bag | 02/27/20 | 10 mg/hr | 50 mL/hr | | | 0.2 mg/mL infusion 0-15 mg/hr | | 20 8:46 | | | | | (0-75 mL/hr), at 0-75 mL/hr, | | AM PDT | | | | | Intravenous, TITRATED, Starting | | | | | | | [facility] 02/27/20 at 0930, For 2 hours, | | | | | | | Protect from light., Titration | | | | | | | Instruction: See below, Goal: | | | | | | | Other, Other goal: SBP<140 mm Hg, | | | | | | | Initial dose: 5 mg/hr, Increase | | | | | | | rate by: 2.5 mg/hr every 5 | | | | | | | minutes., Decrease rate by: 2.5 | | | | | | | mg/hr every 5 minutes., *: | | | | | | | Titrate drug per order as | | | | | | | tolerated. Titration may vary | | | | | | | based on the patient | | | | | | | | | | | | | | s critical condition., | | | | | | | Recovery/Phase I | | | | | | + +---------+ + + +---+ +---+---+ | | | +---+---+ + +-------+ +------+---+---+ | ondansetron (ZOFRAN) injection | Given | 02/27/20 | 4 mg | | | | Intravenous, PRN, Starting Tue | | 20 8:35 | | | | | 02/27/20 at 0835, Anesthesia | | AM PDT | | | | | Intra-op | | | | | | + +-------+ +------+---+---+ +---+---+ | | | +---+---+ + +-------+ +--------+---+---+ | phenylephrine (NEMESIO-SYNEPHRINE, | Given | 02/27/20 | 75 mcg | | | | VAZCULEP) 10 mg per mL injection | | 20 7:39 | | | | | Intravenous, PRN, Starting Tue | | AM PDT | | | | | 02/27/20 at 0739, Anesthesia | | | | | | | Intra-op | | | | | | + +-------+ +--------+---+---+ +-------+ +--------+---+---+ | Given | 02/27/20 | 50 mcg | | | | | 20 7:13 | | | | | | AM PDT | | | | +-------+ +--------+---+---+ +---+---+ | | | +---+---+ + + + +---------+-------+---+ | phenylephrine (NEMESIO-SYNEPHRINE, | Rate/Dos | 02/27/20 | 25 | 0.2 | | | VAZCULEP) 10 mg/mL injection | e Change | 20 8:41 | mcg/min | mL/hr | | | Intravenous, CONTINUOUS PRN, | | AM PDT | | | | | Starting 02/27/20 at 0736, | | | | | | | Anesthesia Intra-op | | | | | | + + + +---------+-------+---+ + + +---------+-------+---+ | Rate/Dose Change | 02/27/20 | 50 | 0.3 | | | | 20 8:13 | mcg/min | mL/hr | | | | AM PDT | | | | + + +---------+-------+---+ | New Bag | 02/27/20 | 30 | 0.2 | | | | 20 7:36 | mcg/min | mL/hr | | | | AM PDT | | | | + + +---------+-------+---+ +---+---+ | | | +---+---+ + +-------+ +-------+---+---+ | propofol (DIPRIVAN) injection | Given | 02/27/20 | 70 mg | | | | Intravenous, PRN, Starting Tu | | 20 7:31 | | | | | 4/28/20 at 0713, Anesthesia | | AM PDT | | | | | Intra-op | | | | | | + +-------+ +-------+---+---+ +-------+ +--------+---+---+ | Given | 02/27/20 | 120 mg | | | | | 20 7:13 | | | | | | AM PDT | | | | +-------+ +--------+---+---+ +---+---+ | | | +---+---+ + + + + +-------+---+ | remifentanil (ULTIVA) injection | Rate/Dos | 02/27/20 | 0.03 | 0.1 | | | Intravenous, CONTINUOUS PRN, | e Change | 20 8:42 | mcg/kg/m | mL/hr | | | Starting 02/27/20 at 0713, | | AM PDT | in | | | | Anesthesia Intra-op | | | | | | + + + + +-------+---+ +---------+ + +-------+---+ | New Bag | 02/27/20 | 0.05 | 0.2 | | | | 20 7:13 | mcg/kg/m | mL/hr | | | | AM PDT | in | | | +---------+ + +-------+---+ +---+---+ | | | +---+---+ + +-------+ +-------+---+---+ | rocuronium (ZEMURON) injection | Given | 02/27/20 | 50 mg | | | | Intravenous, PRN, Starting Tue | | 20 7:13 | | | | | 02/27/20 at 0713, Anesthesia | | AM PDT | | | | | Intra-op | | | | | | + +-------+ +-------+---+---+ +---+---+ | | | +---+---+ + +-------+ +---------+---+---+ | scopolamine (TRANSDERM-SCOP) 1 | Given | 02/27/20 | 1 patch | | | | mg/3 days Transdermal, PRN, | | 20 6:55 | | | | | Starting 02/27/20 at 0655, | | AM PDT | | | | | Anesthesia Intra-op | | | | | | + +-------+ +---------+---+---+ +---+---+ | | | +---+---+ documented in this encounter"
--- OUTSIDE RECORDS SUMMARY | ~2020-07-17 | XMS | Encounter Summary ---
Demographics + + + | Address | [address] | | | [place] [address] | + + + | Home Phone | | + + + | Preferred Language | Unknown | + + + | Marital Status | Single | + + + | Temple Affiliation | Unknown | + + + | Race | White | + + + | Ethnic Group | Not or | + + + Author + + + | Author | [facility] | | | and [place] | + + + | Organization | [facility] | | | and [place] | + + + | Address | Unknown | + + + | Phone | Unavailable | + + + Support + + +---------+ + | Name | Relationship | Address | Phone | + + +---------+ + | Jenniferpatria Rider | ECON | Unknown | | + + +---------+ + | Oksana Vitale | ECON | Unknown | | + + +---------+ + Care Team Providers + +------+ + | Care Toll Bridge Attendant Name | Role | Phone | + [...] | +--------+ + + + + | 02/19/ | [facility] | [facility] | Milton Salazar | Non-small cell | | 2017 | Encounter | [facility] | MD [address] | cancer of right lung | | | | [facility]OGY CLINIC [address] | [address] | (HCC) (Primary Dx) | | | | [address] | [place] [address] | | | | | [place] [address] | [phone] | | | | | [phone] | | | +--------+ + + + [...] + + + | Blood Pressure | 140/85 | 02/19/2017 7:52 AM | | | | | PDT | | + + + + + | Pulse | 96 | 02/19/2017 7:52 AM | | | | | PDT | | + + + + + | Temperature | 37 C (98.6 F) | 02/19/2017 7:52 AM | | | | | PDT | | + + + + + | Respiratory Rate | 18 | 02/19/2017 7:52 AM | | | | | PDT | | + + + + + | Oxygen Saturation | 99% | 02/19/2017 7:52 AM | | | | | PDT | | + + + + + | Inhaled Oxygen | - | - | | | Concentration | | | | + + + + + | Weight | 84.5 kg (186 lb 4.8 | 02/19/2017 7:52 AM | | | | oz) | PDT | | + + + + + | Height | - | - | | + + + + + | Body Mass Index | 28.33 | 11/04/2016 9:00 AM | | | [...] +---------+ + + | dexamethasone | Take 1 tablet by | 16 | 0 | 02/21/20 | | | (DECADRON) 4 mg | mouth 2 times daily | tablet | | 17 | 7 | | tabletIndications: | (with breakfast & | | | | | | Non-small cell | dinner) for 2 days. | | | | | | cancer of right lung | Starting the day | | | | | | (HCC) | after each chemo | | | | | + + [...] ondansetron | Take 1 tablet by | 30 | 3 | 02/21/20 | | | (ZOFRAN) 8 MG | mouth 2 times daily | tablet | | 17 | 7 | | tabletIndications: | for 2 days. After | | | | | | Non-small cell | each chemo treatment | | | | | | cancer of right lung | then can take every | | | | | | (HCC) | 8 hours as needed | | | | | | | for nausea | | | | | + + [...] encounter Progress Notes Milton Salazar MD - 02/19/2017 8:01 AM PDTFormatting of this note might be diff erent from the original. Hem-Onc Progress Note [facility] Pt. Name/Age/: Olena Rider 56 y.o. 1960 Med. Record Number: [id number] Date of admission: 02/19/2017 Assessment and plan: 1. Non-small cell lung cancer, RLL, Nov, 2016 Adenocarcinoma with mucinous features pT3 (two separate foci, 1.3, 1.0 cm), pN1, M0 StageIIIA S/p VATS RLL, Dec, 2016, Dr. Luis Felipe Mon EGFR mutation negative, FISH neg: ROS, ALK rearrangement PD-L1 low expression (3%) 2. Papillary carcinoma of the thyroid S/p thyroidectomy, LN excision S/p radio-iodine abllation, Oct, 2016 A counseling session today first to review plans for a fourth cycle program of adjuvant jeanine motherapy including combination pemetrexed and cisplatin chemotherapy. Chemotherapy teachin g today with regard to untoward effects from such therapy with emphasis on management of acu te toxicity from tanacross chemotherapy notably gastrointestinal toxicity, risk for nephrotox icity, myelosuppression, and importantly neurotoxicity. We've asked patient to make sure to contact us should she begin to experience tinnitus or peripheral neuropathy symptoms. Revi ew of tactics to help suppress acute nausea based on scheduled antiemetic therapy over the f irst 72 hours of treatment. Discussion with regard to tactics for smoking cessation. We discussed the availability of pharmacologic agents to help improve chances for smoking cessation. An example as the use o f Chantix, a means of calming the reward Center driving habitual behavior in the nicotine ad diction. We discussed the use of cold turkey discontinuation of treatment setting a quit da te as a prime means of achieving this goal. Additional discussion in terms of coordination with patient's employer who has graciously p rovided patient with additional FMLA leave, follow-up assessments including a trae check al l discussed during today's session. Subjective: The patient chart and medications were reviewed in detail and the patient was seen and exam ined. Olena Rider is a 56 y.o. female who returns today for a teaching session ahead of pl anned adjuvant chemotherapy following resection of stage III lung cancer. Subjectively patient doing very well in the interim since completing surgery earlier last m onth following incidental discovery of an adenocarcinoma. Discovery prompted by earlier rad ioiodine therapy for a papillary carcinoma of the thyroid. Patient does have a considerable smoking history. 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 She continues to experience resi dual right costal pain and wonders if this will ever subside. Patient also continuing smoki ng although she has trying to cut down. PSH: Reviewed, no changes to admission H&P. Review of Systems: Constitutional: Reports energy is fair and does resting as needed. 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 Reports slight nausea. Denies hig h fevers, shaking chills, anorexia, vomiting, weight loss, or night sweats. Appetite without changes. Ear, Nose, Mouth, Throat: Denies odynophagia, dysphagia, or tinnitus. Cardiovascular: Denies shortness of breath, dyspnea on exertion, chest pain, palpitations o r orthopnea. Respiratory: Reports a cough she has had since having lung surgery on December 30, 2016.Denies hemoptysis, or sputum production. Gastrointestinal: Denies abdominal pain, constipation, diarrhea, melena, or bright red bloo d per rectum. Genitourinary: Denies hematuria or dysuria. Musculoskeletal: Denies joint pain or tenderness. Neurologic: Denies headache, visual changes, or numbness/tingling of the extremities. Endocrine: Denies peripheral edema or heat/cold intolerance. Hematologic: Denies spontaneous bruising or bleeding. Integumentary: Denies rash, wounds or other skin concerns. Pain: Reports pain a 3/10 on her right lower back/flank area from lung surgery. Review of systems as above otherwise negative Scheduled Medications: Continuous Infusions: PRN Meds:. Allergy: Allergies Allergen Reactions Morphine And Related Other (See Comments) "unknown reaction - trouble breathing after hysterectomy" Objectives: Temp: 37 C (98.6 F) BP: 140/85 mmHg Pulse: 96 Resp: 18 SpO2: 99 % on Min/Max Temp past 24 hours:Temp Av C (98.6 F) Min: 37 C (98.6 F) Max: 37 C (98.6 F) No intake or output data in the 24 hours ending 02/19/17 0801 Wt. Admission: Weight: 84.505 kg (186 lb 4.8 oz) Wt. Current: Weight: 84.505 kg (186 lb 4.8 oz) Physical Exam: Exam: General: The patient is alert and oriented. No acute distress. Psychiatric: Normal mood and affect. Diagnostic studies: Available data and images were reviewed personally. See reports. Significant results and findings are addressed here or in the Assessment and Plan. Recent Labs Lab 02/19/17 0737 WBC 10.0 HGB 13.2 HCT 39.7 PLT 342 Electronically signed by: Milton Salazar, 02/19/2017 8:01 [facility] TIME SPENT 30 MIN. > 50% AT BEDSIDE, WITH FAMILY/PATIENT IN CARE AND DOCUMENTATION SPECIALIST ON UNIT AND CO ORDINATION OF CARE Portions of this chart may have been created with [employer] voice recognition software. Occasi onal wrong-word or sound-alike substitutions may have occurred due to the inherent cervantes itations of voice recognition software. Please read the chart carefully and recognize, using context, where these substitutions have occurred. Lauro Flores RN - 02/19/2017 7:55 AM PDTREVIEW OF SYSTEMS Constitutional: Reports energy is fair and does resting as needed. 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 Reports slight nausea. Denies hig h fevers, shaking chills, anorexia, vomiting, weight loss, or night sweats. Appetite without changes. Ear, Nose, Mouth, Throat: Denies odynophagia, dysphagia, or tinnitus. Cardiovascular: Denies shortness of breath, dyspnea on exertion, chest pain, palpitations o r orthopnea. Respiratory: Reports a cough she has had since having lung surgery on December 30, 2016.Denies hemoptysis, or sputum production. Gastrointestinal: Denies abdominal pain, constipation, diarrhea, melena, or bright red bloo d per rectum. Genitourinary: Denies hematuria or dysuria. Musculoskeletal: Denies joint pain or tenderness. Neurologic: Denies headache, visual changes, or numbness/tingling of the extremities. Endocrine: Denies peripheral edema or heat/cold intolerance. Hematologic: Denies spontaneous bruising or bleeding. Integumentary: Denies rash, wounds or other skin concerns. Pain: Reports pain a 3/10 on her right lower back/flank area from lung surgery. Note: Here for labs, follow up, and 4 hour treatment. Today is her first chemo treatment. My chart: Declined Rob mented in this encounter Plan of Treatment +--------+ + + + + | Date | Type | Specialty | Care Team | Description | +--------+ + + + + | 11/22/ | Appointment | Radiation Oncology | Susie Montemayor | | | 2020 | | | MD Lazaro [address] | | | | | | [facility] [place], [place] | | | | | | [address] | | | | | | | | +--------+ + + + + documented as of this encounter Procedures + +--------+ + + + | Procedure Name | Priori | Date/Time | Associated Diagnosis | Comments | | | ty | | | | + +--------+ + + + | CBC WITH | STAT | 02/19/2017 | Non-small cell | Results for this | | DIFFERENTIAL | | 7:37 AM | cancer of right lung | procedure are in the | | | | PDT | (HCC) | results section. | + +--------+ + + + | MAGNESIUM | STAT | 02/19/2017 | Non-small cell | Results for this | | | | 7:37 AM | cancer of right lung | procedure are in the | | | | PDT | ([facility]) | results section. | + +--------+ + + + | COMPREHENSIVE | STAT | 02/19/2017 | Non-small cell | Results for this | | METABOLIC PANEL | | 7:37 AM | cancer of right lung | procedure are in the | | | | PDT | ([facility]) | results section. | + +--------+ + + + documented in this encounter Results Magnesium (02/19/2017 7:37 AM PDT) + +-------+ + + + | Component | Value | Ref Range | Performed | Pathologist | | | | | At | Signature | + +-------+ + + + | Magnesium | 1.9 | 1.8 - 2.5 mg/dL | [facility] | | | | | [facility] | | | [facility] | | | | | | [facility] - | | | | | | LABORATORY | | + +-------+ + + + + + | Specimen | + + | Blood | + + + + + + + | Performing | Address | City/State[facility] | Phone Number | | Organization | | | | + + + + + | [facility] | [address] | [place] | [phone] | | [facility] | | [address] | | | - LABORATORY | | | | + + + + + CBC with Differential (02/19/2017 7:37 AM PDT) + +-------+ + + + | Component | Value | Ref Range | Performed | Pathologist | | | | | At | Signature | + +-------+ + + + | White Blood | 10.0 | 4.0 - 11.0 K/uL | [facility] | | | Cells | | | . [facility] | | | | | | [facility] | | | | | | CENTER - | | | | | | LABORATORY | | + +-------+ + + + | Red Blood | 4.40 | 3.70 - 5.20 | [facility] | | | Cells | | M/uL | [facility] | | | | | | [facility] | | | | | | C[facility] - | | | | | | LABORATORY | | + +-------+ + + + | Hemoglobin | 13.2 | 11.5 - 16.0 | [facility] | | | | | g/dL | . [facility] | | | | | | [facility] | | | | | | CENTER - | | | | | | LABORATORY | | + +-------+ + + + | Hematocrit | 39.7 | 34.0 - 47.0 % | [facility] | | | | | | [facility] | | | | | | [facility] | | | | | | C[facility] - | | | | | | LABORATORY | | + +-------+ + + + | MCV | 90.3 | 83.0 - 101.0 fL | [facility] | | | | | | [facility] | | | | | | [facility] | | | | | | C[facility] - | | | | | | LABORATORY | | + +-------+ + + + | MCH | 30.0 | 28.0 - 35.0 pg | [facility] | | | | | | [facility] | | | | | | [facility] | | | | | | CENTER - | | | | | | LABORATORY | | + +-------+ + + + | MCHC | 33.2 | 32.0 - 36.0 | [facility] | | | | | g/dL | [facility] | | | | | | [facility] | | | | | | CENTER - | | | | | | LABORATORY | | + +-------+ + + + | RDW-CV | 14.0 | <15.0 % | [facility] | | | | | | [facility] | | | | | | [facility] | | | | | | CENTER - | | | | | | LABORATORY | | + +-------+ + + + | Platelet | 342 | 140 - 440 K/uL | [facility] | | | Count | | | [facility] | | | | | | [facility] | | | | | | CENTER - | | | | | | LABORATORY | | + +-------+ + + + | MPV | 8.6 | fL | [facility] | | | | | | [facility] | | | | | | [facility] | | | | | | CENTER - | | | | | | LABORATORY | | + +-------+ + + + | % | 58.0 | 45.0 - 82.0 % | [facility] | | | Neutrophils | | | [facility] | | | | | | [facility]ICAL | | | | | | CENTER - | | | | | | LABORATORY | | + +-------+ + + + | % | 31.3 | 20.0 - 45.0 % | [facility] | | | Lymphocytes | | | [facility] | | | | | | [facility] | | | | | | CENTER - | | | | | | LABORATORY | | + +-------+ + + + | % Monocytes | 7.6 | 4.0 - 12.0 % | [facility] | | | | | | [facility] | | | | | | [facility] | | | | | | CENTER - | | | | | | LABORATORY | | + +-------+ + + + | % | 2.5 | 0.0 - 5.0 % | [facility] | | | Eosinophils | | | [facility] | | | | | | [facility]ICAL | | | | | | CENTER - | | | | | | LABORATORY | | + +-------+ + + + | % Basophils | 0.6 | 0.0 - 1.0 % | [facility] | | | | | | [facility] | | | | | | [facility] | | | | | | CENTER - | | | | | | LABORATORY | | + +-------+ + + + | Absolute | 5.80 | 1.80 - 8.50 | [facility] | | | Neutrophils | | K/uL | [facility] | | | | | | [facility] | | | | | | CENTER - | | | | | | LABORATORY | | + +-------+ + + + | Absolute | 3.10 | 0.60 - 3.20 | [facility] | | | Lymphocytes | | K/uL | [facility] | | | | | | [facility]ICAL | | | | | | CENTER - | | | | | | LABORATORY | | + +-------+ + + + | Absolute | 0.80 | 0.00 - 1.00 | [facility] | | | Monocytes | | K/uL | [facility] | | | | | | [facility]ICAL | | | | | | CENTER - | | | | | | LABORATORY | | + +-------+ + + + | Absolute | 0.20 | 0.00 - 0.40 | [facility] | | | Eosinophils | | K/uL | [facility] | | | | | | [facility]ICAL | | | | | | CENTER - | | | | | | LABORATORY | | + +-------+ + + + | Absolute | 0.10 | 0.00 - 0.10 | [facility] | | | Basophils | | K/uL | [facility] | | | | | | MEDICAL | | | | | | CENTER - | | | | | | LABORATORY | | + +-------+ + + + + + | Specimen | + + | Blood | + + + + + + + | Performing | Address | City/State/Zipcode | Phone Number | | Organization | | | | + + + + + | [facility] | [address] | [place] | [phone] | | [facility] | | [address] | | | - LABORATORY | | | | + + + + + Comprehensive Metabolic Panel (02/19/2017 7:37 AM PDT) + + + + + + | Component | Value | Ref Range | Performed | Pathologist | | | | | At | Signature | + + + + + + | Na | 141 | 136 - 149 | [facility] | | | | | mmol/L | [facility] | | | | | | [facility] | | | | | | CENTER - | | | | | | LABORATORY | | + + + + + + | K | 3.9 | 3.5 - 5.1 | [facility] | | | | | mmol/L | [facility] | | | | | | [facility]ICAL | | | | | | CENTER - | | | | | | LABORATORY | | + + + + + + | Cl | 107 | 98 - 109 mmol/L | [facility] | | | | | | [facility] | | | | | | [facility] | | | | | | CENTER - | | | | | | LABORATORY | | + + + + + + | CO2 | 25 | 24 - 31 mmol/L | [facility] | | | | | | [facility] | | | | | [facility] | | | | | | CENTER - | | | | | | LABORATORY | | + + + + + + | Anion Gap | 9 | 3 - 16 mmol/L | [facility] | | | | | | [facility] | | | | | | [facility] | | | | | | CENTER - | | | | | | LABORATORY | | + + + + + + | Glucose | 120 (H) | 70 - 109 mg/dL | [facility] | | | | | | [facility] | | | | | | [facility] | | | | | | CENTER - | | | | | | LABORATORY | | + + + + + + | BUN | 6 (L) | 7 - 18 mg/dL | [facility] | | | | | | [facility] | | | | | | MEDICAL | | | | | | CENTER - | | | | | | LABORATORY | | + + + + + + | Creatinine | 0.97 | 0.60 - 1.30 | [facility] | | | | | mg/dL | [facility] | | | | | | MEDICAL | | | | | | CENTER - | | | | | | LABORATORY | | + + + + + + | eGFR, | 60Comment: GLOMERULAR | >=60 | [facility] | | | non- | FILTRATION | mL/min/1.73m2 | [facility] | | | [place] | RATE,ESTIMATED | | MEDICAL | | | | mL/min/1.05l9Ojlu than | | CENTER - | | [...] + + + + | Calcium | 9.7 | 8.3 - 10.5 | [facility] | | | | | mg/dL | [facility] | | | | | | [facility]ICAL | | | | | | CENTER - | | | | | | LABORATORY | | + + + + + + | Albumin | 4.1 | 3.2 - 5.0 g/dL | [facility] | | | | | | [facility] | | | | | | [facility]ICAL | | | | | | CENTER - | | | | | | LABORATORY | | + + + + + + | Bilirubin | 0.3 | 0.1 - 1.5 mg/dL | [facility] | | | Total | | | [facility] | | | | | | MEDICAL | | | | | | CENTER - | | | | | | LABORATORY | | + + + + + + | Total | 7.3 | 6.0 - 7.8 g/dL | [facility] | | | Protein | | | [facility] | | | | | | MEDICAL | | | | | | CENTER - | | | | | | LABORATORY | | + + + + + + | AST | 13 | 10 - 42 U/L | [facility] | | | | | | [facility] | | | | | | [facility]ICAL | | | | | | CENTER - | | | | | | LABORATORY | | + + + + + + | ALT | 12 | 6 - 45 U/L | [facility] | | | | | | [facility] | | | | | | [facility]ICAL | | | | | | CENTER - | | | | | | LABORATORY | | + + + + + + | Alkaline | 78 | 40 - 110 U/L | [facility] | | | Phosphatase | | | [facility] | | | | | | MEDICAL | | | | | | CENTER - | | | | | | LABORATORY | | + + + + + + | Globulin | 3.2 | 2.1 - 3.8 g/dL | [facility] [...] + + + + | BUN/Creatin | 6.2 | | [facility] | | | ine Ratio | | | [facility] | [...] | + + + + + | [facility] | [address] | [place] | [phone] | | [facility] | | [address] | | | - LABORATORY | | | | + + + + + documented in this encounter Visit Diagnoses + + | Diagnosis | + + | Non-small cell cancer of right lung (HCC) - Primary | + + documented in this encounter
--- OUTSIDE RECORDS SUMMARY | ~2020-07-17 | XMS | Encounter Summary ---
Demographics + + + | Address | [address] | | | [place] [address] | + + + | Home Phone | | + + + | Preferred Language | Unknown | + + + | Marital Status | Single | + + + | Worship Affiliation | Unknown | + + + | Race | White | + + + | Ethnic Group | Not or | + + + Author + + + | Author | [facility] | | | and [place] | + + + | Organization | [facility] | | [...] Team Providers + +------+ + | Care Quality Assurance Test Program Manager Name | Role | Phone | + [...] | | | lung (HCC) | [address] | | | | | Procedures | [place], | [place] | | | | | [address] | [place] | [address] Phone: | | | | | | [address] | [phone] | | | | | | Phone: | Fax: | | | | | | [phone] | [phone] | | | | | | Fax: | | | | | | | [phone] | | +--------+--------+ + + + + Encounter Details +--------+ + + + + | Date | Type | Department | Care Team | Description | +--------+ + + + + | 03/18/ | Hospital | [facility] | Milton Salazar | Non-small cell | | 2018 | Encounter | [facility] | MD [address] | cancer of right lung | | | | [facility] CLIN[facility] [address] | [address] [place] | (HCC) (Primary Dx) | | | | [address] | [place] [address] | | | | | [place] [address] | [phone] | | | | | [phone] | | | +--------+ + + + [...] ferent from the original. Hem-Onc Progress Note [facility] Pt. Name/Age/: Olena Rider 57 y.o. 1960 Med. Record Number: [id number] Date of admission: 03/18/2018 Assessment and plan: [...] dripping wet. She is working with a stull hewer, Dr. covington who is evaluating patien ts [...] Electronically signed by: Milton Salazar, 03/18/2018 9:09 [facility] TIME SPENT 25 MIN. > 50% AT BEDSIDE, WITH FAMILY/PATIENT IN CARE AND INVOICE CLERK ON UNIT AND CO ORDINATION OF CARE Portions of this chart may have been created with [employer] voice recognition software. Occasi onal wrong-word or [...] [place] | | | | | | [facility] [place] | | | | | | [id number] | | | | | | | | +--------+ + + + + documented as of this encounter Visit Diagnoses + + | Diagnosis | + + | Non-small cell cancer of right lung (HCC) - Primary | + + documented in this encounter
--- OUTSIDE RECORDS SUMMARY | ~2020-07-17 | XMS | Encounter Summary ---
Demographics + + + | Address | [address] | | | [place] [address] | + + + | Home Phone | | + + + | Preferred Language | Unknown | + + + | Marital Status | Single | + + + | Synagogue Affiliation | Unknown | + + + | Race | White | + + + | Ethnic Group | Not or | + + + Author + + + | Author | [facility] | | | and [place] | + + + | Organization | [facility] | | [...] Team Providers + +------+ + | Care Slackman Name | Role | Phone | + +------+ + PCP | Unavailable | + +------+ + Encounter Details +--------+ + + + + | Date | Type | Department | Care Team | Description | +--------+ + + + + | 04/06/ | Hospital | [facility] | | | | 1999 | Encounter | MED CTR GENERIC OP | | | | | | CONV DEPT [address] | | | | | | [place], | | | | | | [place] [address] | | | | | | [phone] | | | +--------+ + + + [...] [place] | | | | | | [address] | | | | | | | | +--------+ + + + + documented as of this encounter Visit Diagnoses Not on filedocumented in this encounter"
--- OUTSIDE RECORDS SUMMARY | ~2020-07-17 | XMS | Encounter Summary ---
Demographics + + + | Address | [address] | | | [place] [address] | + + + | Home Phone | | + + + | Preferred Language | Unknown | + + + | Marital Status | Single | + + + | Jain Affiliation | Unknown | + + + | Race | White | + + + | Ethnic Group | Not or | + + + Author + + + | Author | [facility] | | | and [place] | + + + | Organization | [facility] | | | [...] Team Providers + +------+ + | Care Geoscience Technician Name | Role | Phone | + +------+ + | Zuleyka Martínez | PCP | | + +------+ + Reason for Visit + + + | Reason | Comments | + + + | Under Treatment | | + + + Encounter Details +--------+ + + + + | Date | Type | Department | Care Team | Description | +--------+ + + + + | 09/07/ | [facility] | [facility] | Susie Montemayor | Primary malignant | | 2019 | Encounter | [facility] RAD[facility] | MD Jared [address] | neoplasm of female | | | | ONCOLOGY CLINIC [address] | [place], [place] | breast (HCC) | | | | [facility] | [address] | (Primary Dx) | | | | [place] [address] | | | | | | [phone] | | | +--------+ + + + [...] + + + | Blood Pressure | 137/88 | 09/07/2019 3:55 PM | | | | | PST | | + + + + + | Pulse | 87 | 09/07/2019 3:55 PM | | | | | PST | | + + + + + | Temperature | 37 C (98.6 F) | 09/07/2019 3:55 PM | | | | | PST | | + + + + + | Respiratory Rate | 18 | 09/07/2019 3:55 PM | | | | | PST | | + + + + + | Oxygen Saturation | 100% | 09/07/2019 3:55 PM | | | | | PST | | + + + + + | Inhaled Oxygen | - | - | | | Concentration | | | | + + + + + | Weight | 87.4 kg (192 lb 10.9 | 09/07/2019 3:55 PM | | | | oz) | PST | | + + + + + | Height | - | - | | + + + + + | Body Mass Index | 29.2 | 08/08/2019 3:00 PM | | | | | PDT [...] exemestane | Take 1 tablet by | 30 | 11 | 08/29/20 | | | (AROMASIN) 25 MG | mouth Daily. | tablet | | 19 | 0 | | tablet | | [...] encounter Progress Notes Susie Montemayor MD - 09/07/2019 3:51 PM PST Radiation Oncology Weekly On Treatment Note Diagnosis: ICD-10-CM ICD-9-CM 1. Primary malignant neoplasm of female breast (HCC) C50.919 174.9 Reason for visit: On treatment evaluation Radiation technical factors: Dose Delivered Dose Planned Fractions Delivered 801 cGy 4005 cGy 01/13 Images were reviewed this week and results of the review have been recorded in [facility]. Corre ctions were applied as necessary. Allergies Allergen Reactions Morphine Anaphylaxis and Other (See Comments) Morphine And Related Other (See Comments) "unknown reaction - trouble breathing after hysterectomy" Current Outpatient Medications on File Prior to Encounter Medication Sig Dispense Refill ALPRAZolam (XANAX) 0.5 mg tablet Take 0.5 mg by mouth 3 times daily as needed for Anxie ty. calcium carbonate (TUMS) 500 mg chewable tablet Take 2 tablets by mouth as needed. celecoxib (CELEBREX) 200 mg capsule TK 1 C PO BID 0 exemestane (AROMASIN) 25 MG tablet Take 1 tablet by mouth Daily. 30 tablet 11 ibuprofen (ADVIL,MOTRIN) 600 MG tablet Take 600 mg by mouth every 6 hours as needed. levothyroxine (SYNTHROID) 112 mcg tablet TAKE ONE TABLET BY MOUTH EVERY OTHER DAY levothyroxine (SYNTHROID) 125 mcg tablet Take 125 mcg by mouth every morning (before br eakfast). lidocaine (LIDODERM) 5% patch Place 1 patch onto the skin. Multiple Vitamins-Minerals (MULTIVITAMIN ADULT PO) Take by mouth Daily. omeprazole (PRILOSEC) 20 mg [...] facility-administered medications on file prior to encounter. Pain assessment: Location: generalized joint Pain Level: PAIN PROG PAIN LEVEL: 6 with activity, 4 with rest Pain Quality: Aching Current pain regimen: Ultram, celebrex, tylenol and rest Wt Readings from Last 3 Encounters: 09/07/19 87.4 kg (192 lb 10.9 oz) 08/29/19 88 kg (194 lb 0.1 oz) 08/08/19 87.7 kg (193 lb 5.5 oz) Vitals: 09/07/19 1555 BP: 137/88 Pulse: 87 Resp: 18 Temp: 37 C (98.6 F) TempSrc: Temporal SpO2: 100% Weight: 87.4 kg (192 lb 10.9 oz) Physical Exam Nurse Assessment and Toxicity Grading: Toxicity Flowsheet 09/07/2019 Diarrhea 0 - Grade 0 Nausea 1 - Grade 1 Vomiting 0 - Grade 0 Fatigue 1 - Grade 1 Karnofsky Performance Score 90% Physician Assessment: 09/07/19: Olena started radiation this week. Mild fatigue. No skin changes. Disposition: Continue radiation treatment as planned. Skin care with emollient lotion. Susie Montemayor MD Radiation Oncologist documented in this encounter Plan of Treatment +--------+ + + + + | Date | Type | Specialty | Care Team | Description | +--------+ + + + + | 11/22/ | Appointment | Radiation Oncology | Susie Montemayor | | | 2020 | | | MD Jared [address] | | | | | | [place] | | | | | | [address] | | | | | | | | +--------+ + + + + documented as of this encounter Visit Diagnoses + + | Diagnosis | + + | 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
--- OUTSIDE RECORDS SUMMARY | ~2020-07-17 | XMS | Encounter Summary ---
Demographics + + + | Address | [address] | | | [place] [address] | + + + | Home Phone | | + + + | Preferred Language | Unknown | + + + | Marital Status | Single | + + + | Anglican Affiliation | Unknown | + + + | Race | White | + + + | Ethnic Group | Not or | + + + Author + + + | Author | [facility] | | | and [place] | + + + | Organization | [facility] | | | and [...] Team Providers + +------+ + | Care Cement Contractor Name | Role | Phone | + +------+ + | Zuleyka Martínez | PCP | | + +------+ + Encounter Details +--------+ + + + + | Date | Type | Department | Care Team | Description | +--------+ + + + + | 03/26/ | [facility]ati | [facility] | Susie Montemayor | | | 2019 | on | [facility] RAD[facility] | MD Jared [address] | | | | | ONCOLOGY CLINIC [address] | [place], [place] | | | | | [address] | [address] | | | | | [place] [address] | | | | | | [phone] | | | +--------+ + + + [...] + documented as of this encounter Progress Susie Byrne MD - 03/26/2020 11:59 PM PDT Radiation Treatment Summary Diagnosis: ICD-10-CM ICD-9-CM 1. Non-small cell cancer of right lung (HCC) C34.91 162.9 2. 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 Intent: Palliative Treatment Technique: SRS VMAT Treatment Site: Brain Prescription and Treatment Summary: Course: HEAD Plan ID Energy Fractions Dose per Fraction (cGy) Dose Correction (cGy) Total Dose Delivered (cGy) Elapsed Days SRT R Frontal 6X 900 0 2,700 6 Pain: Location: headaches Pain Level: PAIN PROG PAIN LEVEL: 5 Pain Quality: Constant Current pain regimen: will grape picker dexamethasone today Chemotherapy: No systemic therapy Assessment: Olena Rider completed the planned course of course of external beam radiation therap y without any unexpected complications or breaks. Treatment tolerance: good. Disease response to treatment: No change in disease status and/or disease related symptoms . Disposition: 1. Follow-up in our clinic: with Dr. Montemayor in 3 months a. Labs: none b. Imaging: MRI brain in 3 months 2. Follow-up with Dr. Salazar. Coordination of care will be arranged between providers for future visits. Olena Rider was encouraged to call our clinic with any further questions or concern s. Thank you for allowing me to participate in her care. If you should have any questions r egarding this treatment summary, please do not hesitate to contact me. 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
--- OUTSIDE RECORDS SUMMARY | ~2020-07-17 | XMS | Encounter Summary ---
Demographics + + + | Address | [address] | | | [place] [address] | + + + | Home Phone | | + + + | Preferred Language | Unknown | + + + | Marital Status | Single | + + + | Hoahaoism Affiliation | Unknown | + + + | Race | White | + + + | Ethnic Group | Not or | + + + Author + + + | Author | [facility] | | | and [place] | + + + | Organization | [facility] | | [...] Team Providers + +------+ + | Care Manufacturing Leader Name | Role | Phone | + +------+ + | Zuleyka Martínez | PCP | | + +------+ + Reason for Visit Auth/Cert +--------+--------+ + + + + | Status | Reason | Specialty | Diagnoses / | Referred By | Referred To | | | | | Procedures | Contact | Contact | +--------+--------+ + + + + | | | | | | | +--------+--------+ + + + + Encounter Details +--------+ + + + + | Date | Type | Department | Care Team | Description | +--------+ + + + + | 03/11/ | Hospital | [facility] | Zuleyka Cota, | Malignant neoplasm | | 2018 | Encounter | MED CTR ULTRASOUND | MD [address] | of thyroid gland | | | | [address] | [address] [place], | ([facility]) | | | | [place], [place] | [place] [address] | | | | | [address] | [phone] | | | | | [phone] | | | | | | | Usman Brady, | | | | | | Technologist [...] | | | | | | [place], [place] | | | | | | [address] | | | | | | | | +--------+ + + + + documented as of this encounter Procedures + +--------+ + + + | Procedure Name | Priori | Date/Time | Associated Diagnosis | Comments | | | ty | | | | + +--------+ + + + | US HEAD NECK SOFT | Routin | 03/11/2018 | Malignant neoplasm | Results for this | | TISSUE | e | 11:26 AM | of thyroid gland | procedure are in the | | | | PDT | (HCC) | results section. | + +--------+ + + + documented in this encounter Results US Head Neck Soft Tissue (03/11/2018 11:26 AM PDT) + + | Specimen | + + | | + + + + + | Narrative | Performed At | + + + | US HEAD NECK SOFT TISSUE 03/11/2018 11:00 AM HISTORY: Assess for | [facility] | | lymph nodes. COMPARISON: Multiple priors. PROTOCOL: [place] | | | scale and Doppler images of the thyroid. FINDINGS: There has been | | | previous thyroidectomy with no evidence for residual thyroid tissue. | | | A prominent lymph node is in the left submandibular gland measuring | | | 2.49 x 0.79 x 1.29 cm. On the right side, a similar size lymph node | | | is observed within the same region measuring 2.17 x 0.67 x 1.12 cm. | | | IMPRESSION - Previous laminectomy with no evidence for tumor | | | recurrence. Prominent lymph nodes of the bilateral seminal | | | regions. Dictated and Signed by: Iftikhar Larios MD | | | Electronically signed: 03/11/2018 2:39 PM | | + + + + + | Procedure Note | + + | Christopher, Rad Results In - 03/11/2018 2:42 PM PDT US HEAD NECK SOFT TISSUE 03/11/2018 | | 11:00 AM HISTORY: Assess for lymph nodes.COMPARISON: Multiple priors.PROTOCOL: [place] | | scale and Doppler images of the thyroid.FINDINGS:There has been previous thyroidectomy | | with no evidence for residual thyroidtissue. A prominent lymph node is in the left | | submandibular gland measuring 2.49x 0.79 x 1.29 cm. On the right side, a similar size | | lymph node is observedwithin the same region measuring 2.17 x 0.67 x 1.12 cm.IMPRESSION | | -Previous laminectomy with no evidence for tumor recurrence.Prominent lymph nodes of the | | bilateral seminal regions.Dictated and Signed by: Iftikhar Larios MD Electronically | | signed: 03/11/2018 2:39 PM | |There has been previous thyroidectomy with no evidence for residual thyroid | |tissue. A prominent lymph node is in the left submandibular gland measuring 2.49 | |x 0.79 x 1.29 cm. On the right side, a similar size lymph node is observed | |within the same region measuring 2.17 x 0.67 x 1.12 cm. | | | |IMPRESSION - | |Previous laminectomy with no evidence for tumor recurrence. | | | |Prominent lymph nodes of the bilateral seminal regions. | | | |Dictated and Signed by: Iftikhar Larios MD | | Electronically signed: 03/11/2018 2:39 PM | + + + +---------+ + [...]
--- OUTSIDE RECORDS SUMMARY | ~2020-07-17 | XMS | Encounter Summary ---
Demographics + + + | Address | [address] | | | [place] [address] | + + + | Home Phone [...] Team Providers + +------+ + | Care Rag Sorter Name | Role | Phone | + +------+ + | Zuleyka Martínez | PCP | | + +------+ + Encounter Details +--------+ + + + + | Date | Type | Department | Care Team | Description | +--------+ + + + + | 11/11/ | Hospital | [facility] | Susie Montemayor | Pneumothorax after | | 2017 | Encounter | MED CTR MEDICAL | MD Jared [address] | biopsy (Primary Dx); | | | | ONCOLOGY CLINIC [address] | [place], [place] | Malignant neoplasm | | | | [address] | [address] | of thyroid gland | | | | [place] [address] | | (HCC) | | | | [phone] | | | +--------+ + + + [...] oxyCODONE | Take 1 tablet by | 15 | 0 | 11/06/19 | | | (ROXICODONE) 5 mg | mouth every 4 hours | tablet | | 17 | 7 | | tablet | as needed for [...] | | | MD Jared [address] | | | | | | [place] | | | | | | [address] | | | | | | | | +--------+ + + + + documented as of this encounter Procedures + +--------+ + + + | Procedure Name | Priori | Date/Time | Associated Diagnosis | Comments | | | ty | | | | + +--------+ + + + | EXTRA GOLD TOP TUBE | Routin | 11/11/2016 | Pneumothorax after | Results for this | | | e | 3:29 PM | biopsy | procedure are in the | | | | PST | | results section. | + +--------+ + + + | TSH | Routin | 11/11/2016 | Malignant neoplasm | Results for this | | | e | 3:28 PM | of thyroid gland | procedure are in the | | | | PST | (HCC) | results section. | + +--------+ + + + documented in this encounter Results Extra Gold Top Tube (11/11/2016 3:29 PM PST) + +-------+ + + + | Component | Value | Ref Range | Performed | Pathologist | | | | | At | Signature | + +-------+ + + + | Extra Gold | Done | | [facility] | | | Top Tube | | | [facility] | | [...] [address] | [place] | [phone] | | [facility] | | [address] | | | - LABORATORY | | | | + + + + + TSH (11/11/2016 3:28 PM PST) + + + + + + | Component | Value | Ref Range | Performed | Pathologist | | | | | At | Signature | + + + + + + | TSH | 0.39Comment: All TSH | 0.34 - 5.60 | [facility] | | | | samples are screened | uIU/mL | [facility] | | | | using a 2nd [...] + | [facility] | [address] | [place] | [phone] | | [facility] | | [address] | | | - LABORATORY | | | | + + + + + documented in this encounter Visit Diagnoses + + | Diagnosis | + + | Pneumothorax after biopsy - Primary Iatrogenic pneumothorax | + + | Malignant neoplasm of thyroid gland (HCC) Malignant neoplasm of thyroid gland | + + documented in this encounter"
--- OUTSIDE RECORDS SUMMARY | ~2020-07-17 | XMS | Encounter Summary ---
Demographics + + + | Address | [address] | | | [place] [address] | + + + | Home Phone | | + + + | Preferred Language | Unknown | + + + | Marital Status | Single | + + + | Hinduism Affiliation | Unknown | + + + | Race | White | + + + | Ethnic Group | Not or | + + + Author + + + | Author | [facility] | | | and [place] | + + + | Organization | [facility] | | | [...] Team Providers + +------+ + | Care Ultrasound Supervisor Name | Role | Phone | [...] | | | | Diagnoses | | | | | | | CT | | | | | | | Procedures | | | | | | | DI : CT | | | | | | | BIOPSY | | | +--------+--------+ + + + + Encounter Details +--------+---------+ + + + | Date | Type | Department | Care Team | Description | +--------+---------+ + + + | 11/04/ | Surgery | [facility] | Hugo Godfrey MD | CT LUNG BIOPSY | | 2017 | | [facility] | [address] | | | | | [address] | [place] | | | | | [place] | [address] | | | | | [address] | [phone] | | | | | [phone] | | | +--------+---------+ + + + Social History + + [...] + + + | Blood Pressure | 142/78 | 11/04/2016 11:30 AM | | | | | PST | | + + + + + | Pulse | 69 | 11/04/2016 11:30 AM | | | | | PST | | + + + + + | Temperature | 36.7 C (98.1 F) | 11/04/2016 9:00 AM | | | | | PST | | + + + + + | Respiratory Rate | 18 | 11/04/2016 11:30 AM | | | | | PST | | + + + + + | Oxygen Saturation | 98% | 11/04/2016 11:30 AM | | | | | PST | | + + + + + | Inhaled Oxygen | - | - | | | Concentration | | | | + + + + + | Weight | 85.3 kg (188 lb) | 11/04/2016 9:00 AM | | | | | PST | | + + + + + | Height | 172.7 cm (5' 8") | 11/04/2016 9:00 AM | | | | | PST | | + + + + + | Body Mass Index | 30.17 | 11/04/2016 9:00 AM | | | [...] + documented as of this encounter Discharge Summaries Tien Angel MD - 11/06/2016 9:36 AM PSTFormatting of this note might be different fro m the original. [place], [place] HOSPITALIST DISCHARGE SUMMARY Pt. Name/Age/: Smitha Rider 56 y.o. 1960 Date of Admission: 11/04/2016 Date of Discharge: 11/06/2016 Admitting Physician: Hugo Godfrey MD Primary Care Provider: Zuleyka Martínez Discharging Physician: Tien Angel MD DISCHARGE DIAGNOSES: Active Hospital Problems Diagnosis Pneumothorax after biopsy Malignant neoplasm of thyroid gland Resolved Hospital Problems Diagnosis No resolved problems to display. DISCHARGE MEDICATIONS: Discharge Medications New Medications Details oxyCODONE 5 mg tablet Take 1 tablet by mouth every 4 hours as needed for Pain. aka: ROXICODONE Unchanged Medications Details ALPRAZolam 0.5 mg tablet Take 0.5 mg by mouth 3 times daily as needed for Anxiety. aka: XANAX calcium carbonate 500 mg chewable tablet Take 2 tablets by mouth Daily. aka: TUMS ibuprofen 200 mg tablet Take 200 mg by mouth every 6 hours as needed for Pain. aka: ADVIL, MOTRIN levothyroxine 150 mcg tablet Take 150 mcg by mouth every morning (before breakfast). aka: SYNTHROID, LEVOTHROID ondansetron 4 mg disintegrating tablet Take 4 mg by mouth every 8 hours as needed for Nausea. aka: ZOFRAN ODT traMADol 50 mg tablet Take 50 mg by mouth every 6 hours as needed for Pain. aka: ULTRAM zolpidem 10 mg tablet Take 10 mg by mouth nightly as needed for Sleep. aka: JESSICA Alternative Med Lists (all with hard stops if not reconciled) 1 Dot DCMEDSSUMMARY (for discharge summary) 2 Dot DCMEDSDCRA (signed & held med orders with a discharge readmit phase of care) 3 Dot DCMEDSSNF (intended for SNF transfers) 4 Dot DCMEDSWITHREADMIT (preferred for all discharge summaries as it includes 1 & 2 above u sing 1 for most discharges but 2 when there is and order for discharge readmit) HOSPITAL COURSE: Please refer to the H&P for full details and the most recent rounding rounding (progress) n ote. Principal Problem: Pneumothorax after biopsy Active Hospital Problems Diagnosis Pneumothorax after biopsy Dr Dsouza placed chest tube on right on 5th lung looks up on today CXR (ie inflated proper) with chest tube. Pain an issue. 6th is MOF in ICU, maybe CT out today. No PE on study yesterday. Malignant neoplasm of thyroid gland Had sgy Dr Mitchell and then I [address] Walker and if Bx of lung done today not diagn ositic her plan was to send patient to a CT surgeon Emphysema on CT discussed with patient Bleb associated with that 4 beat NSVT but overall low risk and getting Mg replaced (1.8) and advised have PCP do 24 h our holter in future (flakita) Code Status Full Code Medical Decision Maker Daughter Jennifer if need be DVT Prophylaxis SCD's while in bed (jaspreet camposddsandovalum tdnorefesh nownorefresh) (jaspreet sky) Plan Await surgeon Addendum (11/06/2016 9:24) Add to assessmment and home today will do just a few narcotics for post CT pain Most recent weight: Input and output for last 24hrs: Wt Readings from Last 1 Encounters: 11/06/16 90 kg (198 lb 6.6 oz) I/O last 24 Hours: In: 647 [P.O.:647] Out: 1050 [Urine:1050] Vitals Ranges: Temp: [36.1 C (97 F)-37 C (98.6 F)] 36.3 C (97.3 F) Pulse: [64-80] 66 Resp: [19-20] 20 BP: (100-113)/(36-75) 107/56 mmHg Vitals: Temp: 36.3 C (97.3 F) BP: 107/56 mmHg Pulse: 66 Resp: 20 SpO2: 98 % SpO2 98 % on room air at flow rate 2L/min PHYSICAL EXAM: Patient seen and examined by me on discharge day PROCEDURES AND CONSULTS: CT Chest Tube Biopsy prior to admission PENDING RESULTS: Bx results DISPOSITION AND DISCHARGE INSTRUCTIONS: Condition: Patient being discharged with condition improved Diet: her usual No cough or strain or strenuous activity for one week then usual activity OK Avoid ibuprofen for next 2 days since had biopsy, use plane tylenol instead, also if regula r use of ibuprofen add Pepcid or Prilosec to decrease GI risk If recurrent short of breath or increasing pain go to ER as pneumothorax may have come back You had 4 beat non sustained V tach but with your prior evaluation felt to be low risk, you r magnesium level was borderline at 1.8 from the IV fluids so Dr Angel gave dose IV Mag befo re discharge. Have your PCP do a 24 hour holter monitor in the future Suture out one week Greater than 30 minutes were spent on discharge and coordination of post-hospital care. (jaspreet tapia) Electronically signed by: Tien Angel MD, 11/06/2016 9:36 [facility] Reference. This is NOT part of the patient's formal assessment section. In the assessment or plan section of notes the author may date some of the subsections with a number such as "" or "" to indicate the date of that entry or event. In the example below the 1st line is the original entry and the subsequent lines indicate flowing updates to the subsection: Example assessment subsection (such as CHF or CP or Pneumonia) Patient is improved today with resolution of symptoms 24th Worse with recurrence of symptoms requiring further testing Portions of this chart may have been created with Qgiv voice recognition software. Occasi onal wrong-word or sound-alike substitutions may have occurred due to the inherent cervantes itations of voice recognition software. Please read the chart carefully and recognize, using context, where these substitutions have occurred documented in this en counter Discharge Instructions Instructions Tien Angel MD - 11/06/2016No cough or strain or strenuous activity for o ne week then usual activity OK Avoid ibuprofen for next 2 days since had biopsy, use plane tylenol instead, also if regula r use of ibuprofen add Pepcid or Prilosec to decrease GI risk If recurrent short of breath or increasing pain go to ER as pneumothorax may have come back You had 4 beat non sustained V tach but with your prior evaluation felt to be low risk, you r magnesium level was borderline at 1.8 from the IV fluids so Dr Angel gave dose IV Mag befo re discharge. Have your PCP do a 24 hour holter monitor in the future Suture out one week AttachmentsThe following attachments cannot be sent through Care Everywhere.PNEUMOTHORAX (C OLLAPSED LUNG) (ALBANIAN)documented in this encounter Medications at Time of [...] documented as of this encounter Progress Notes Del Dsouza MD - 11/06/2016 8:57 AM PSTFormatting of this note might be diff erent from the original. [facility] --[place], [place] General Surgery Team Hospital Day: 3 DATE/TIME: 11/06/2016 8:58 56 y.o. year old female hospitalized with Pneumothorax after biopsy which is completely res olved CURRENT INFUSIONS CURRENT MEDICATIONS calcium carbonate 1,000 mg Oral Daily ketorolac 30 mg Intravenous 4 times per day lactated ringers 1,000 mL Intravenous Once levothyroxine 150 mcg Oral QAM AC magnesium sulfate in dextrose 1 g Intravenous Once pantoprazole 40 mg Oral QAM AC I personally reviewed the above medications. OBJECTIVE: Temp: 36.3 C (97.3 F) BP: 107/56 mmHg Pulse: 66 Resp: 20 SpO2: 98 % on Min/Max Temp past 24 hours:Temp Av.6 C (97.8 F) Min: 36.1 C (97 F) Max: 37 C (98.6 F) Intake/Output Summary (Last 24 hours) at 11/06/16 0871 Last data filed at 11/06/16 0300 Gross per 24 hour Intake 647 ml Output 750 ml Net -103 ml Wt. Admission: Weight: 85.276 kg (188 lb) Wt. Current: Weight: 90 kg (198 lb 6.6 oz) General: alert, appears stated age and cooperative Heart: Regular rate and rhythm Lungs: clear Abdomen: abdomen is soft without significant tenderness, masses, organomegaly or guarding Chemistry: Lab Results Component Value Date NA 138 11/06/2016 K 3.9 11/06/2016 CO2 27 11/06/2016 BUN 12 11/06/2016 CREA 0.92 11/06/2016 GLU 100 11/06/2016 Hematology: cxr w clamp overnight looks normal Personally reviewed ASSESSMENT AND PLAN: 1. Chest tube pulled 2. la well 3. Ok to return to work Wednesday 4. wnd care and sutured discussed 5. Avoid cough and straining for one week 6. Return to er if pneumothorax symptoms return SUBJECTIVE/ROS: Smitha Rider is now Hospital Day: 3 for post lung biopsy pneumothorax. Pain is adequ ately controlled. Patient is passing flatus. She does not complain of nausea. Last sidney l movement was yesterday. Currently tolerating a cardiac diet. Electronically Signed by: Del Dsouza MD, 11/06/2016 8:58 [facility] Kerwin Jasso MD - 11/06/2016 7:51 AM PSTFormatting of this note might be different from the fabian renetta [place] HOSPITALIST PROGRESS NOTE Patient: Smitha Rider : 1960: Age: 56 y.o. MedRec: [id number] PCP: Zuleyka Martínez Admission date: 11/04/2016 Hospital day # : 2 Physician author: Tien Angel MD Today: 11/06/2016 Allergies: Allergies Allergen Reactions Morphine And Related Other (See Comments) "unknown reaction - trouble breathing after hysterectomy" Current Medications: Current Facility-Administered Medications Medication Dose Route Frequency Provider Last Rate Last Dose ALPRAZolam (XANAX) tablet 0.5 mg 0.5 mg Oral TID PRN Tien Angel MD 0.5 mg at 1705 calcium carbonate (TUMS) chewable tablet 1,000 mg 1,000 mg Oral Daily Tien Angel MD 1,000 mg at 11/05/16 2221 fentaNYL (PF) injection 50-75 mcg 50-75 mcg Intravenous Q30 Min PRN Tien Angel MD 75 mcg at 11/05/16 2215 ketorolac (TORADOL) injection 30 mg 30 mg Intravenous 4 times per day Tien Angel MD lactated ringers (LR) bolus 1,000 mL 1,000 mL Intravenous Once Tien Angel MD 1, 000 mL at 11/06/16 0738 levothyroxine (SYNTHROID, LEVOTHROID) tablet 150 mcg 150 mcg Oral QAM AC Tien herr MD 150 mcg at 11/06/16 0618 ondansetron (ZOFRAN ODT) disintegrating tablet 4 mg 4 mg Oral Q8H PRN Tien Angel MD 4 mg at 11/05/16 1257 oxyCODONE (ROXICODONE) tablet 5-15 mg 5-15 mg Oral Q3H PRN Tien Angel MD 15 mg at 11/06/16 0618 pantoprazole (PROTONIX) DR tablet 40 mg 40 mg Oral QAM Tien Angel MD traMADol (ULTRAM) tablet 50 mg 50 mg Oral Q6H PRN Tien Angel MD 50 mg at 1706 zolpidem (AMBIEN) tablet 10 mg 10 mg Oral Nightly PRN Tien Angel MD 10 mg at 2046 Current Infusions: Objective Data Hematology and anemia Recent Labs Lab 11/04/16 0911 WBC 12.1* HGB 14.6 HCT 43.7 PLT 270 Recent Labs Lab 11/04/16 0911 PROTIME 13.0 INR 0.96 No results for input(s): IRON, TIBC, PCTSAT, FERRITIN, TSH, [id number], FOLATE in the last 168 hours. Inflammatory markers No results for input(s): LACTATE, PROCALCITONI, CRP, ESR in the last 168 hours. Chemistry Recent Labs Lab 11/06/16 0434 11/05/16 0718 GLU 100 99 NA 138 136 K 3.9 3.9 CL 107 109 CO2 27 23* ANIONGAP 4 4 BUN 12 12 CREA 0.92 0.87 GFRNONAA 64 68 CALCIUM 8.8 8.5 No results for input(s): MG, PHOS in the last 168 hours. No results for input(s): AMYLASE, LIPASE in the last 168 hours. No results for input(s): TRIG, CHOL, HDL, LDL in the last 168 hours. No results for input(s): AMMONIA in the last 168 hours. Cardiology & Digoxin No results for input(s): TROPONIN, CK, CKMB, BNP, DIGOXIN in the last 168 hours. Invalid input(s): CKTOTAL ABG No results for input(s): PHART, PO2ART, OTK9YAB, ZJA1OKD, BEART, [id number] in the last 168 h ours. No results for input(s): SPECSOURCE, PHPOCB, PCO2, PO2, HCO3, TCO2, BEART, [id number] in the last 168 hours. Drug of overdose and abuse No results for input(s): ALCOHOL, ACTMN, SALICYLATE in the last 168 hours. No results for input(s): AMPHEQUAL, BARBITURATE, BENZSCR, CANNIBSCR, AMPHETAMINE, METHADSCR , OPIATESCR in the last 168 hours. Urinalysis No results for input(s): GLUCOSEU, WBCUA, RBCUA, SQUAMEPIUA, BACTERIAUA, CULTIF in the last 168 hours. Point of care glucose No results for input(s): POCGLU in the last 168 hours. Micro results (more choices using dot micro) Microbiology Results (72 hrs) Procedure Component Value Units Date/Time Culture, MRSA [[id number]] Collected: 11/04/16 1544 Order Status: Completed Lab Status: Final result Updated: 11/05/16 1348 Specimen Information: Respiratory from Nares Culture Negative for MRSA by chromogenic agar method Radiology results (more choices using dot risresults) Xr Chest Ap Portable 11/05/2016 XR CHEST AP PORTABLE 11/05/2016 3:58 PM HISTORY: chest tube. COMPARISON: Multiple p riors. Findings: A right chest tube is observed with tip in the mid right hemithorax. No res idual pneumothorax is seen. There is mild atelectasis in the left lung base. Heart size is w ithin normal limits. Aorta is normal. Mediastinum is unremarkable. Central pulmonary vascula ture is normal. There are no acute osseous findings. Bone mineralization is normal. IMPRESSI ON - Right chest tube in place with no evidence for pneumothorax. Dictated and Signed by: Ever Larios MD Electronically signed: 11/05/2016 4:13 PM Xr Chest Ap Portable 11/05/2016 SINGLE AP CHEST 11/05/2016 6:11 AM CLINICAL HISTORY: Followup PTX and chest tube CO MPARISON: Chest radiographs from the previous day FINDINGS: The right thoracostomy tube agai n projects over the mid right hemithorax, ending in the suprahilar region. No residual/recu rrent pneumothorax is apparent. There is similar mild right basilar reticular opacity favor ing atelectasis. No pleural effusion is visible. The left lung remains clear. Cardiomedias tinal silhouette and pulmonary vasculature are unremarkable. Bones and soft tissues are unr emarkable. IMPRESSION - 1. NO RESIDUAL/RECURRENT RIGHT PNEUMOTHORAX OR OTHER EVIDENCE OF N EW DISEASE IN THE CHEST. Dictated and Signed by: Hugo Godfrey MD Electronically signed: 11/05 7:43 AM Xr Chest Ap Portable 11/04/2016 XR CHEST AP PORTABLE 11/04/2016 5:35 PM HISTORY: right chest tube placement- pneumo thorax. COMPARISON: 11/04/2016 Findings: There is an interval placement of a right-sided chest tube with resolution of the previously described right pneumothorax. There is improved aera tion of the right lung. The left lung remains clear. Minimal opacity in the right lung base likely is related to recently biopsied right lower lung nodule. Cardiomediastinal silhouette and pulmonary vasculature are unremarkable. Bones and soft tissues are unremarkable. IMPRES PARVEEN - Interval placement of a right-sided chest tube with reexpansion of the right lung and complete/essentially complete resolution of the right-sided pneumothorax. Dictated and Sign ed by: Chai Nguyen MD Electronically signed: 11/04/2016 6:04 PM Xr Chest Ap Portable 11/04/2016 SINGLE AP CHEST 11/04/2016 4:10 PM CLINICAL HISTORY: Follow-up right lung biopsy an d right sided pneumothorax COMPARISON: Chest radiographs and images from CT guided right leora g core biopsy earlier in the day FINDINGS: A single upright AP chest is again provided. The re is a persistent right pneumothorax, which continues to increase in volume and now occupie s approximately 30% of the volume of the hemithorax. Persistent hazy reticular opacity at t he right base again favors atelectasis. A faint region of opacity in the right basilar lung field likely reflects the recently biopsied right lower lobe nodule. The left lung remains radiographically clear. No pleural effusion is visible. The cardiomediastinal silhouette and pulmonary vasculature are unremarkable, without midline shift. Bones and soft tissues a re unremarkable. IMPRESSION - 1. PROGRESSIVE ENLARGEMENT OF THE RIGHT PNEUMOTHORAX, NOW OC CUPYING APPROXIMATELY 30% OF THE VOLUME OF THE HEMITHORAX. Dictated and Signed by: Hugo reyes MD Electronically signed: 11/04/2016 4:37 PM Xr Chest Ap Portable 11/04/2016 SINGLE AP CHEST 11/04/2016 1:04 PM CLINICAL HISTORY: F/U pneumothorax and lung biop sy, chest pain COMPARISON: Chest radiograph and images from CT-guided right lung core biopsy earlier in the day FINDINGS: A single upright AP chest is again provided. There is a pers istent small to moderate-sized right pneumothorax, occupying approximately 20-25% of the vol ume of the hemithorax, and increased in volume from images acquired earlier in the day. Inc reased hazy reticular opacity at the right base favors atelectasis. A faint region of opaci ty in the right lower lung field likely reflects the recently biopsied right lower lobe nodu le. The left lung remains radiographically clear. No pleural effusion is visible. The car diomediastinal silhouette and pulmonary vasculature are unremarkable, without midline shift. Bones and soft tissues are unremarkable. IMPRESSION - 1. ENLARGING RIGHT PNEUMOTHORAX AN D PROBABLE PROGRESSIVE BASILAR ATELECTASIS. Comment: Given the progression of the patient's pneumothorax and persistent right-sided chest pain which has suboptimally responded to analg esia, percutaneous thoracostomy tube placement will be undertaken. Findings and recommendat ions were discussed with Dr. Vargas as well as Dr. Kolton Angel (to be the admitting provide r following chest tube placement) at the time of preliminary interpretation on November 04 at 1300 hours. Dictated and Signed by: Hugo Godfrey MD Electronically signed: 11/04/2016 1 :29 PM Xr Chest Ap Portable 11/04/2016 SINGLE AP CHEST 11/04/2016 11:34 AM CLINICAL HISTORY: Chest pain status post right lung core biopsy -follow-up pneumo COMPARISON: Images from preceding CT guided right lung co re biopsy, chest radiographs June 01, chest CT September 23 FINDINGS: A single upright AP ch est is provided. There is a relatively small right pneumothorax, occupying approximately 10 -15% of the volume of the hemithorax, subjectively increased in volume from postprocedure CT images acquired earlier in the day. Mild hazy reticular opacity at the right base favors a telectasis. A faint focal opacity in the right lower lung field likely reflects the recentl y biopsied right lower lobe nodule. The left lung is radiographically clear. No pleural ef fusion is visible. The cardiomediastinal silhouette and pulmonary vasculature are unremarka ble, without midline shift. Bones and soft tissues are unremarkable. IMPRESSION - 1. SMALL IATROGENIC RIGHT PNEUMOTHORAX, SUBJECTIVELY LARGER COMPARED WITH CT IMAGES ACQUIRED AT THE TIME OF PERCUTANEOUS CORE BIOPSY EARLIER IN THE DAY. FOLLOW-UP RADIOGRAPHY WILL BE PERFORMED IN APPROXIMATELY ONE HOUR TO EVALUATE FOR STABILITY. Results of the study were discussed wi joni Ortega, same day surgery nurse caring for the patient, at the time of preliminary interpr etation on November 04, 2016 at 1135 hours. Dictated and Signed by: MD Taina Figueroa signed: 11/04/2016 12:[address] Guided Biopsy Lung Or Mediastinum 11/04/2016 CT-GUIDED PERCUTANEOUS RIGHT LUNG CORE BIOPSY WITH MODERATE SEDATION 11/04/2016 10: 11 AM CLINICAL HISTORY: Thyroid cancer, RLL nodule, avid on PET COMPARISON: Chest CT and June 02, PET/CT June 17 PROCEDURE: After explaining the potential risks and bene fits of the procedure to the patient, including risk of hemorrhage, infection and pneumothor ax, verbal and written consent were obtained. With the patient prone on the CT gantry, mode rate sedation was administered per institutional protocol. Axial unenhanced CT images were performed through the mid chest, again identifying a small, somewhat spiculated appearing no dule in the posterior lateral right lower lobe. A suitable approach for biopsy was chosen, a nd the overlying dorsal skin prepped and draped in sterile fashion. 5 cc 1% lidocaine were utilized for local anesthesia with CT guidance. A small skin rajinder was made to accommodate t he 17-gauge introducer needle, which was advanced to the margin of the nodule without diffic ulty utilizing CT guidance, and an intercostal PA approach. Five core biopsies of the nodul e were performed through the introducer with an 18-gauge Biopince biopsy gun, producing smal l white tissue cores which were placed in formalin and sent for histologic analysis. The in troducer was removed and hemostasis achieved at the puncture site with manual compression. The patient tolerated the procedure well. A trace right pneumothorax developed immediately following removal of the introducer needle, and only slightly enlarged after a short period of observation. The patient was transferred to recovery in stable condition. IMPRESSION - 1 . CT-GUIDED PERCUTANEOUS RIGHT LUNG CORE BIOPSY WITH MODERATE SEDATION, DESCRIBED. 2. SMALL, IATROGENIC RIGHT PNEUMOTHORAX. FOLLOW-UP CHEST RADIOGRAPHY WILL BE PERFORMED TO EVAL UATE FOR PROGRESSION PRIOR TO DISCHARGE. Dictated and Signed by: Hugo Godfrey MD Electronic ally signed: 11/04/2016 11:[address] Angiogram Pulmonary 11/06/2016 CT PULMONARY ANGIOGRAM 11/05/2016 5:46 PM CLINICAL HISTORY: Severe right posterio r chest pain near chest tube, look for PE COMPARISON: Chest radiograph from the same day and multiple previous radiographs, chest CT September and June 2016 TECHNIQUE: Axial imag es are performed through the chest following the uneventful intravenous administration of 60 mL Omnipaque-350 contrast, with timing of the contrast bolus optimized for opacification of the pulmonary arterial tree. Multiplanar reformations are also performed. FINDINGS: The s tudy is of satisfactory quality, and demonstrates no visible filling defect within the pulmo nary arterial tree to suggest the presence of thromboembolic disease. Minimal calcified jerel que is again present in the thoracic aorta and proximal great vessels. The mediastinum is o therwise unremarkable. No pathologic lymph node enlargement is evident. There is no pleura l effusion. A thoracostomy tube enters the right hemithorax laterally in the fifth intercost al space, coursing superomedially within the posterior aspect of the minor fissure and large ly in the major fissure to its apex, and ultimately terminating in the posterior upper hemit horax. Minimal loculi of pleural gas are noted along the anterior and posterior margins of the right apex and within the fissure. There is no other pneumothorax. Emphysematous change s are again apparent. A thin-walled bulla persists in the left infrahilar region. The prev iously described superior right lower lobe nodule is likely increased in size from the study of September 2016, presently measuring approximately 11 mm allowing for a small volume of barnes rrounding opacity likely reflecting biopsy related hemorrhage, compared to 8 mm previously. Previously described nodule in the lateral right costophrenic sulcus is not identified prese ntly, nor is a nodule in the posterior left costophrenic sulcus. There is a stable 2.5 mm n odule in the lingula on image 77. Previously described nodule more superiorly in the left u pper lobe is not identified presently. No new nodule, consolidation central airway abnormal ity is evident. Mild dependent density in the lungs and scattered basilar bandlike opacities favor atelectasis. Previously described small sclerotic lesion in the lower sternal body, i nferior C7 vertebral body and left posterolateral aspect of the T3 vertebral body are unchan ged. No new lytic or blastic lesion is evident. There is multilevel spondylosis. Several small, rounded hypodensities in the imaged liver are stable in size and number, measuring up to 7 mm, again favoring cysts. A 12 mm left adrenal nodule stable, again favoring an adeno ma. Imaged upper abdomen is otherwise unremarkable. IMPRESSION - 1. NO EVIDENCE OF PULMON GORDON EMBOLISM. 2. RIGHT THORACOSTOMY TUBE COURSING WITHIN THE MINOR AND MAJOR FISSURES DE SCRIBED, WITH FEW TINY LOCULI OF PLEURAL GAS IN THE FISSURE AND ALONG THE MARGIN OF THE APEX . 3. INTERVAL ENLARGEMENT OF THE RECENTLY BIOPSIED RIGHT LOWER LOBE LUNG NODULE COMPARED WI TH IMAGING OF SEPTEMBER 2016, WHILE OTHER PREVIOUSLY DESCRIBED NODULES ARE STABLE OR NOT VISI BLE PRESENTLY. CENTRILOBULAR EMPHYSEMA IS AGAIN NOTED. 4. FEW STABLE, NON-SPECIFIC SCLEROT IC BONE LESIONS. 5. STABLE HYPODENSITIES IN THE LIVER, FAVORING CYSTS. 6. STABLE SMALL LEF T ADRENAL NODULE FAVORING AN ADENOMA. Preliminary results of this study were reported by the [facility] radiologist on November 05, 2016 at 1829 hours. Dictated and Signed by: Hugo Godfrey MD Electronically signed: 11/06/2016 6:43 AM Serial weights: Filed Weights: 11/04/16 0900 11/06/16 0339 Weight: 85.276 kg (188 lb) 90 kg (198 lb 6.6 oz) Most recent weight: Input and output 2 shifts and 3 shifts: Wt Readings from Last 1 Encounters: 11/06/16 90 kg (198 lb 6.6 oz) I/O last 24 Hours: In: 647 [P.O.:647] Out: 1050 [Urine:1050] I/O last 3 completed shifts: In: 1259 [P.O.:897; I.V.:362] Out: 1150 [Urine:1150] Vitals Ranges: Temp: [36.1 C (97 F)-37 C (98.6 F)] 36.3 C (97.3 F) Pulse: [64-80] 66 Resp: [19-20] 20 BP: (100-113)/(36-75) 107/56 mmHg Vitals: Temp: 36.3 C (97.3 F) BP: 107/56 mmHg Pulse: 66 Resp: 20 SpO2: 98 % SpO2 98 % on room air at flow rate 2L/min (dot yvlolis) Subjective CC chest hurts (chest tube) Admit on for post lung bx PTX required CT Dr Dsouza Less frequent chest tube pain still bothersome Taking good amount oral liquids and I had gave her 2 liter LR since yesterday She hopes to get chest tube out today ROS See above Exam General Looks more comfortable than last night Cardiac RRR Extremities Lung good sounds bilat, not labored, tube on right Abdominal Neuro alert and fluent (dot meyexam) Assessment and Hospital Course (dot meyprob vs meyprobap) Principal Problem: Pneumothorax after biopsy Active Hospital Problems Diagnosis Pneumothorax after biopsy Dr Dsouza placed chest tube on right on 02 03 lung looks up on today CXR (ie inflated proper) with chest tube. Pain an issue. 6th is MOF in ICU, maybe CT out today. No PE on study yesterday. Malignant neoplasm of thyroid gland Had sgy Dr Mitchell and then I [address] Walker and if Bx of lung done today not diagn ositic her plan was to send patient to a CT surgeon Emphysema on CT discussed with patient Bleb associated with that 4 beat NSVT but overall low risk and getting Mg replaced (1.8) and advised have PCP do 24 h our holter in future (flakita) Code Status Full Code Medical Decision Maker Soraya Rodriguez if need be DVT Prophylaxis SCD's while in bed (dot meyaddendum tdnorefesh nownorefresh) (dot jose daniel) Plan Await surgeon Addendum (11/06/2016 9:24) Add to assessmment and home today will do just a few narcotics for post CT pain (dot meyaddendum tdnorefesh nownorefresh) (dot meytime meycritical meysign) Tien Angel MD 11/06/2016 7:51 [facility] Reference. This is NOT part of the patient's formal assessment section. In the assessment or plan section of notes the author may date some of the subsections with a number such as "" or "23" to indicate the date of that entry or event. In the example below the 1st line is the original entry and the subsequent lines indicate flowing updates to the subsection: Example assessment subsection (such as CHF or CP or Pneumonia) Patient is improved today with resolution of symptoms 24 Worse with recurrence of symptoms requiring further testing Portions of this chart may have been created with Qgiv voice recognition software. Occasi onal wrong-word or sound-alike substitutions may have occurred due to the inherent cervantes itations of voice recognition software. Please read the chart carefully and recognize, using context, where these substitutions have occurred Del Montoya MD - 11/05/2016 6:31 PM PSTFormatting of this note might be different from the [facility] [place] [place] General Surgery Team Hospital Day: 2 DATE/TIME: 11/05/2016 18:32 56 y.o. year old female hospitalized with Pneumothorax after biopsy which is stable CURRENT INFUSIONS CURRENT MEDICATIONS acetaminophen calcium carbonate 1,000 mg Oral Daily ketorolac 30 mg Intravenous 4 times per day levothyroxine 150 mcg Oral QAM AC I personally reviewed the above medications. OBJECTIVE: Temp: 37 C (98.6 F) BP: 105/44 mmHg Pulse: 80 Resp: 20 SpO2: 96 % on Min/Max Temp past 24 hours:Temp Av.7 C (98 F) Min: 36.3 C (97.3 F) Max: 37 C (98.6 F) Intake/Output Summary (Last 24 hours) at 11/05/16 1832 Last data filed at 11/05/16 1443 Gross per 24 hour Intake 612 ml Output 1150 ml Net -538 ml Wt. Admission: Weight: 85.276 kg (188 lb) Wt. Current: Weight: 85.276 kg (188 lb) General: alert, appears stated age, cooperative and mild distress Heart: Regular rate and rhythm Lungs: clear Abdomen: abdomen is soft without significant tenderness, masses, organomegaly or guarding Chemistry: Lab Results Component Value Date NA 136 11/05/2016 K 3.9 11/05/2016 CO2 23 11/05/2016 BUN 12 11/05/2016 CREA 0.87 11/05/2016 GLU 99 11/05/2016 Hematology: ASSESSMENT AND PLAN: 1. Chest xray am and at [address] reviewed as well ordered by hospitalist o f chest pain. Will clamp ct tonight and pull in am if stable. SUBJECTIVE/ROS: Smitha Rider is now Hospital Day: 2 for pneumothorax. Pain is not adequately control led. Patient is passing flatus. She does not complain of nausea. Last bowel movement wa s yesterday. Currently tolerating a cardiac diet. Electronically Signed by: Del Dsouza MD, 11/05/2016 18:32 [facility] Kerwin Jasso MD - 11/05/2016 6:53 AM PSTFormatting of this note might be different from the [facility] [place] HOSPITALIST PROGRESS NOTE Patient: Smitha Rider : 1960: Age: 56 y.o. MedRec: [id number] PCP: Zuleyka Martínez Admission date: 11/04/2016 Hospital day # : 1 Physician author: Tien Angel MD Today: 11/05/2016 Allergies: Allergies Allergen Reactions Morphine And Related Other (See Comments) "unknown reaction - trouble breathing after hysterectomy" Current Medications: Current Facility-Administered Medications Medication Dose Route Frequency Provider Last Rate Last Dose ALPRAZolam (XANAX) tablet 0.5 mg 0.5 mg Oral TID PRN Tien Angel MD 0.5 mg at 0045 calcium carbonate (TUMS) chewable tablet 1,000 mg 1,000 mg Oral Daily Tien Angel MD fentaNYL (PF) injection 50 mcg 50 mcg Intravenous Q1H PRN Tien Angel MD 50 mcg at 11/04/16 2216 ketorolac (TORADOL) injection 30 mg 30 mg Intravenous 4 times per day Del flanagan MD 30 mg at 11/05/16 0553 lactated ringers (LR) bolus 1,000 mL 1,000 mL Intravenous Once Tien Angel MD levothyroxine (SYNTHROID, LEVOTHROID) tablet 150 mcg 150 mcg Oral QAM AC Tien herr MD 150 mcg at 11/05/16 0600 ondansetron (ZOFRAN ODT) disintegrating tablet 4 mg 4 mg Oral Q8H PRN Tien Angel MD oxyCODONE (ROXICODONE) tablet 5-10 mg 5-10 mg Oral Q4H PRN Tien Angel MD 10 mg at 11/05/16 0402 traMADol (ULTRAM) tablet 50 mg 50 mg Oral Q6H PRN Tien Angel MD zolpidem (AMBIEN) tablet 10 mg 10 mg Oral Nightly PRN Tien Angel MD Current Infusions: Objective Data Hematology and anemia Recent Labs Lab 11/04/16 0911 WBC 12.1* HGB 14.6 HCT 43.7 PLT 270 Recent Labs Lab 11/04/16 0911 PROTIME 13.0 INR 0.96 No results for input(s): IRON, TIBC, PCTSAT, FERRITIN, TSH, [id number], FOLATE in the last 168 hours. Inflammatory markers No results for input(s): LACTATE, PROCALCITONI, CRP, ESR in the last 168 hours. Chemistry No results for input(s): GLU, NA, K, CL, CO2, ANIONGAP, BUN, CREA, GFRNONAA, CALCIUM, ALBUM IN, TOTALPROTEIN, BILITOT, ALKPHOS, ALT, AST in the last 168 hours. No results for input(s): MG, PHOS in the last 168 hours. No results for input(s): AMYLASE, LIPASE in the last 168 hours. No results for input(s): TRIG, CHOL, HDL, LDL in the last 168 hours. No results for input(s): AMMONIA in the last 168 hours. Cardiology & Digoxin No results for input(s): TROPONIN, CK, CKMB, BNP, DIGOXIN in the last 168 hours. Invalid input(s): CKTOTAL ABG No results for input(s): PHART, PO2ART, [id number], TRQ0KGQ, BEART, [id number] in the last 168 h ours. No results for input(s): SPECSOURCE, PHPOCB, PCO2, PO2, HCO3, TCO2, BEART, [id number] in the last 168 hours. Drug of overdose and abuse No results for input(s): ALCOHOL, ACTMN, SALICYLATE in the last 168 hours. No results for input(s): AMPHEQUAL, BARBITURATE, BENZSCR, CANNIBSCR, AMPHETAMINE, METHADSCR , OPIATESCR in the last 168 hours. Urinalysis No results for input(s): GLUCOSEU, WBCUA, RBCUA, SQUAMEPIUA, BACTERIAUA, CULTIF in the last 168 hours. Point of care glucose No results for input(s): POCGLU in the last 168 hours. Micro results (more choices using dot micro) Microbiology Results (72 hrs) Procedure Component Value Units Date/Time Culture, MRSA [[id number]] Collected: 11/04/16 1544 Order Status: Sent Lab Status: In process Updated: 11/04/16 1559 Specimen Information: Respiratory from N[facility] Radiology results (more choices using dot risresults) Xr Chest Ap Portable 11/04/2016 XR CHEST AP PORTABLE 11/04/2016 5:35 PM HISTORY: right chest tube placement- pneumo thorax. COMPARISON: 11/04/2016 Findings: There is an interval placement of a right-sided chest tube with resolution of the previously described right pneumothorax. There is improved aera tion of the right lung. The left lung remains clear. Minimal opacity in the right lung base likely is related to recently biopsied right lower lung nodule. Cardiomediastinal silhouette and pulmonary vasculature are unremarkable. Bones and soft tissues are unremarkable. IMPRES PARVEEN - Interval placement of a right-sided chest tube with reexpansion of the right lung and complete/essentially complete resolution of the right-sided pneumothorax. Dictated and Sign ed by: Chai Nguyen MD Electronically signed: 11/04/2016 6:04 PM Xr Chest Ap Portable 11/04/2016 SINGLE AP CHEST 11/04/2016 4:10 PM CLINICAL HISTORY: Follow-up right lung biopsy an d right sided pneumothorax COMPARISON: Chest radiographs and images from CT guided right leora g core biopsy earlier in the day FINDINGS: A single upright AP chest is again provided. The re is a persistent right pneumothorax, which continues to increase in volume and now occupie s approximately 30% of the volume of the hemithorax. Persistent hazy reticular opacity at t he right base again favors atelectasis. A faint region of opacity in the right basilar lung field likely reflects the recently biopsied right lower lobe nodule. The left lung remains radiographically clear. No pleural effusion is visible. The cardiomediastinal silhouette and pulmonary vasculature are unremarkable, without midline shift. Bones and soft tissues a re unremarkable. IMPRESSION - 1. PROGRESSIVE ENLARGEMENT OF THE RIGHT PNEUMOTHORAX, NOW OC CUPYING APPROXIMATELY 30% OF THE VOLUME OF THE HEMITHORAX. Dictated and Signed by: Hugo reyes MD Electronically signed: 11/04/2016 4:37 PM Xr Chest Ap Portable 11/04/2016 SINGLE AP CHEST 11/04/2016 1:04 PM CLINICAL HISTORY: F/U pneumothorax and lung biop sy, chest pain COMPARISON: Chest radiograph and images from CT-guided right lung core biopsy earlier in the day FINDINGS: A single upright AP chest is again provided. There is a pers istent small to moderate-sized right pneumothorax, occupying approximately 20-25% of the vol ume of the hemithorax, and increased in volume from images acquired earlier in the day. Inc reased hazy reticular opacity at the right base favors atelectasis. A faint region of opaci ty in the right lower lung field likely reflects the recently biopsied right lower lobe nodu le. The left lung remains radiographically clear. No pleural effusion is visible. The car diomediastinal silhouette and pulmonary vasculature are unremarkable, without midline shift. Bones and soft tissues are unremarkable. IMPRESSION - 1. ENLARGING RIGHT PNEUMOTHORAX AN D PROBABLE PROGRESSIVE BASILAR ATELECTASIS. Comment: Given the progression of the patient's pneumothorax and persistent right-sided chest pain which has suboptimally responded to analg esia, percutaneous thoracostomy tube placement will be undertaken. Findings and recommendat ions were discussed with Dr. Vargas as well as Dr. Kolton Angel (to be the admitting provide r following chest tube placement) at the time of preliminary interpretation on November 04 at 1300 hours. Dictated and Signed by: Hugo Godfrey MD Electronically signed: 11/04/2016 1 :29 PM Xr Chest Ap Portable 11/04/2016 SINGLE AP CHEST 11/04/2016 11:34 AM CLINICAL HISTORY: Chest pain status post right lung core biopsy -follow-up pneumo COMPARISON: Images from preceding CT guided right lung co re biopsy, chest radiographs June 01, chest CT September 23 FINDINGS: A single upright AP ch est is provided. There is a relatively small right pneumothorax, occupying approximately 10 -15% of the volume of the hemithorax, subjectively increased in volume from postprocedure CT images acquired earlier in the day. Mild hazy reticular opacity at the right base favors a telectasis. A faint focal opacity in the right lower lung field likely reflects the recentl y biopsied right lower lobe nodule. The left lung is radiographically clear. No pleural ef fusion is visible. The cardiomediastinal silhouette and pulmonary vasculature are unremarka ble, without midline shift. Bones and soft tissues are unremarkable. IMPRESSION - 1. SMALL IATROGENIC RIGHT PNEUMOTHORAX, SUBJECTIVELY LARGER COMPARED WITH CT IMAGES ACQUIRED AT THE TIME OF PERCUTANEOUS CORE BIOPSY EARLIER IN THE DAY. FOLLOW-UP RADIOGRAPHY WILL BE PERFORMED IN APPROXIMATELY ONE HOUR TO EVALUATE FOR STABILITY. Results of the study were discussed wi joni Ortega, same day surgery nurse caring for the patient, at the time of preliminary interpr etation on November 04, 2016 at 1135 hours. Dictated and Signed by: Hugo Godfrey MD Electroni tawnya signed: 11/04/2016 12:[address] Guided Biopsy Lung Or Mediastinum 11/04/2016 CT-GUIDED PERCUTANEOUS RIGHT LUNG CORE BIOPSY WITH MODERATE SEDATION 11/04/2016 10: 11 AM CLINICAL HISTORY: Thyroid cancer, RLL nodule, avid on PET COMPARISON: Chest CT and June 02, PET/CT June 17 PROCEDURE: After explaining the potential risks and bene fits of the procedure to the patient, including risk of hemorrhage, infection and pneumothor ax, verbal and written consent were obtained. With the patient prone on the CT gantry, mode rate sedation was administered per institutional protocol. Axial unenhanced CT images were performed through the mid chest, again identifying a small, somewhat spiculated appearing no dule in the posterior lateral right lower lobe. A suitable approach for biopsy was chosen, a nd the overlying dorsal skin prepped and draped in sterile fashion. 5 cc 1% lidocaine were utilized for local anesthesia with CT guidance. A small skin rajinder was made to accommodate t he 17-gauge introducer needle, which was advanced to the margin of the nodule without diffic ulty utilizing CT guidance, and an intercostal PA approach. Five core biopsies of the nodul e were performed through the introducer with an 18-gauge Biopince biopsy gun, producing smal l white tissue cores which were placed in formalin and sent for histologic analysis. The in troducer was removed and hemostasis achieved at the puncture site with manual compression. The patient tolerated the procedure well. A trace right pneumothorax developed immediately following removal of the introducer needle, and only slightly enlarged after a short period of observation. The patient was transferred to recovery in stable condition. IMPRESSION - 1 . CT-GUIDED PERCUTANEOUS RIGHT LUNG CORE BIOPSY WITH MODERATE SEDATION, DESCRIBED. 2. SMALL, IATROGENIC RIGHT PNEUMOTHORAX. FOLLOW-UP CHEST RADIOGRAPHY WILL BE PERFORMED TO EVAL UATE FOR PROGRESSION PRIOR TO DISCHARGE. Dictated and Signed by: Hugo Godfrey MD Electronic ally signed: 11/04/2016 11:55 AM Serial weights: Filed Weights: 11/04/16 0900 Weight: 85.276 kg (188 lb) Most recent weight: Input and output 2 shifts and 3 shifts: Wt Readings from Last 1 Encounters: 11/04/16 85.276 kg (188 lb) I/O last 24 Hours: In: 950 [P.O.:50; I.V.:900] Out: 600 [Urine:600] I/O last 3 completed shifts: In: 950 [P.O.:50; I.V.:900] Out: 600 [Urine:600] Vitals Ranges: Temp: [36.3 C (97.3 F)-36.8 C (98.2 F)] 36.8 C (98.2 F) Pulse: [62-100] 68 Resp: [14-20] 20 BP: (92-145)/(45-92) 92/45 mmHg Vitals: Temp: 36.8 C (98.2 F) BP: 92/45 mmHg Pulse: 68 Resp: 20 SpO2: 99 % SpO2 99 % on room air at flow rate 2L/min (jaspreet sky) Subjective CC chest hurts (chest tube) Admit on for post lung bx PTX required CT Dr Dsouza CT does hurt No N/V Needs to have her SCDs on in bed (RN comm) No N/V No SOB ROS See above Exam General Looks uncomfortable Cardiac RRR Extremities Lung good sounds bilat, not labored Abdominal Neuro alert and fluent (dot meyexam) Assessment and Hospital Course (dot meyprob vs meyprobap) Principal Problem: Pneumothorax after biopsy Active Hospital Problems Diagnosis Pneumothorax after biopsy Dr Dsouza placed chest tube on right on 02 03 lung looks up on today CXR (ie inflated proper) with chest tube. Pain an issue. Malignant neoplasm of thyroid gland Had sgy Dr Mitchell and then I [address] Walker and if Bx of lung done today not diagn ositic her plan was to send patient to a CT surgeon (flakita) Code Status Full Code Medical Decision Maker Soraya Rodriguez if need be DVT Prophylaxis SCD's while in bed (dot meyaddendum tdnorefesh nownorefresh) (dot meyvent) Plan Dr Dsouza to see again today RN reports no air leak LR one liter due to poor po (patient says will do better today) BMP Addendum (11/05/2016 15:30) I am moving her to medical bed also I will end the NSAID after 4 more dose to decrease risk of ill effect and added protonix and daily BMP Addendum (11/05/2016 17:05) Increased right posterior chest pain after coughing moves air well and recheck CXR OK I thi nk this is from the chest tube but she fears PE (which is possible) will do CTA to exclude a nd upped her pain meds. (dot meyaddendum tdnorefesh nownorefresh) (dot meytime meycritical meysign) Tien Angel MD 11/05/2016 6:53 [facility] Reference. This is NOT part of the patient's formal assessment section. In the assessment or plan section of notes the author may date some of the subsections with a number such as "23" or "23" to indicate the date of that entry or event. In the example below the 1st line is the original entry and the subsequent lines indicate flowing updates to the subsection: Example assessment subsection (such as CHF or CP or Pneumonia) Patient is improved today with resolution of symptoms 24th Worse with recurrence of symptoms requiring further testing Portions of this chart may have been created with Qgiv voice recognition software. Occasi onal wrong-word or sound-alike substitutions may have occurred due to the inherent cervantes itations of voice recognition software. Please read the chart carefully and recognize, using context, where these substitutions have occurred documented in this en counter H&P Notes Tien Angel MD - 11/04/2016 2:34 PM PSTFormatting of this note might be different fro m the original. [place] HOSPITALIST HISTORY & PHYSICAL Patient: Smitha Rider : 1960: Age: 56 y.o. MedRec: [id number] PCP: Zuleyka Martínez Admission date: 11/04/2016 Hospital day #: Physician author: Tien Angel MD Today: 11/04/2016 CHIEF COMPLAINT: Chest pain due to pneumothorax caused by right lung nodule biopsy Dr Godfrey HISTORY OF PRESENT ILLNESS: This is a 56 y.o. female with a history of thyoid cancer Was in [facility] last June with CP with CT showing lung nodules had a PET scan in June at [facility] and ultimately had thyroid surgery in [place] and radioactive iodine 131 and then had lung Bx today complicated by right pneumothorax and pain was bad now down to grade 5. Dr Reid flanagan had consulted and getting another xray at 4 pm today and 50/50 if needs chest tube. Patient has intermittent nausea, not SOB, has arthritis, anxiety, smokes cigs still, prior hysterectomy, bowels and bladder OK and no bleeding and has fairly good teeth and hearing an d has progressive glassess No NOLAN Single Here with daughter Jennifer whom is [facility] Tanya is [employer] PAST MEDICAL and SURGICAL HISTORY: Past Medical History Diagnosis Date Insomnia Anxiety Malignant neoplasm of thyroid gland (HCC) PONV (postoperative nausea and vomiting) Past Surgical History Procedure Laterality Date Appendectomy Hysterectomy Colectomy Thyroidectomy FAMILY HISTORY: family history is not on file. Mom had breast cancer mets to lung SOCIAL HISTORY: reports that she has been smoking Cigarettes. She has a 15 pack-year smoking history. She has never used smokeless tobacco. She reports that she drinks alcohol. She reports that she does not use illicit drugs. REVIEW OF SYSTEMS: A complete 10 system ROS was done and recorded in the HPI (Constitutional, Eye, ENT, Cardia c, Respiratory, GI, , Musculoskeletal, Skin & Breast, Neurological) with the remainder neg ative. Further notations, if any, will be noted below. (meynotebar) HOME MEDICATIONS: Current Discharge Medication List CONTINUE these medications which have NOT CHANGED Details ALPRAZolam (XANAX) 0.5 mg tablet Take 0.5 mg by mouth 3 times daily as needed for Anxiety. calcium carbonate (TUMS) 500 mg chewable tablet Take 2 tablets by mouth Daily. ibuprofen (ADVIL, MOTRIN) 200 mg tablet Take 200 mg by mouth every 6 hours as needed for Pa in. levothyroxine (SYNTHROID, LEVOTHROID) 150 mcg tablet Take 150 mcg by mouth every morning (b efore breakfast). ondansetron (ZOFRAN ODT) 4 mg disintegrating tablet Take 4 mg by mouth every 8 hours as nee ded for Nausea. traMADol (ULTRAM) 50 mg tablet Take 50 mg by mouth every 6 hours as needed for Pain. zolpidem (AMBIEN) 10 mg tablet Take 10 mg by mouth nightly as needed for Sleep. PT REPORTED TAKING NOT TAKING Medication Sig Last Dose Dispense Doc. Provider ALPRAZolam (XANAX) 0.5 mg tablet Take 0.5 mg by mouth 3 times daily as needed for Anxiety. Taking Historical Provider, calcium carbonate (TUMS) 500 mg chewable tablet Take 2 tablets by mouth Daily. 11/03/2016 H istorical Provider, ibuprofen (ADVIL, MOTRIN) 200 mg tablet Take 200 mg by mouth every 6 hours as needed for P ain. 11/03/2016 Historical Provider, levothyroxine (SYNTHROID, LEVOTHROID) 150 mcg tablet Take 150 mcg by mouth every morning ( before breakfast). 11/04/2016 Historical Provider, ondansetron (ZOFRAN ODT) 4 mg disintegrating tablet Take 4 mg by mouth every 8 hours as ne eded for Nausea. Taking Historical Provider, traMADol (ULTRAM) 50 mg tablet Take 50 mg by mouth every 6 hours as needed for Pain. 1/3/2 017 Historical Provider, zolpidem (AMBIEN) 10 mg tablet Take 10 mg by mouth nightly as needed for Sleep. 11/03/2016 Historical Provider, Note neither list of medicines will show if patient is taking differently Note that the Taking not Taking list will not show meds that need to be reviewed (dot medstakingnottaking hmeds2 hmeds ptarxtaking) ALLERGIES: Allergies Allergen Reactions Morphine And Related Other (See Comments) "unknown reaction - trouble breathing after hysterectomy" VITAL SIGNS: Temp: 36.7 C (98.1 F), Pulse: 66, Resp: 18, BP: 121/67 mmHg, SpO2 99 % on nasal cannula at flow rate 2L/min Temp Min: 36.7 C (98.1 F) Max: 36.7 C (98.1 F) Weight: 85.276 kg (188 lb) PHYSICAL EXAMINATION: Constitutional Alert looks uncomfortable Eye Glasses No conjunctivitis nor scleral icterus ENT Unremarkable oral ear and nose Neck Scar from recent sgy Cardiac Car RRR no MRG LE edema none Lung Auscultation clear but diminished on the right side Respiratory effort not labored Percussion not done Abdomen + BS, Soft, NT, no HSM nor masses Psych Mood and affect anxious Neuro Face symmetric Alert and cooperative (dot meyexam) DIAGNOSTIC STUDIES: Hematology and anemia Recent Labs Lab 11/04/16 0911 WBC 12.1* HGB 14.6 HCT 43.7 PLT 270 Recent Labs Lab 11/04/16 0911 PROTIME 13.0 INR 0.96 No results for input(s): IRON, TIBC, PCTSAT, FERRITIN, TSH, [id number], FOLATE in the last 168 hours. Inflammatory markers No results for input(s): LACTATE, PROCALCITONI, CRP, ESR in the last 168 hours. Chemistry No results for input(s): GLU, NA, K, CL, CO2, ANIONGAP, BUN, CREA, GFRNONAA, CALCIUM, ALBUM IN, TOTALPROTEIN, BILITOT, ALKPHOS, ALT, AST in the last 168 hours. No results for input(s): MG, PHOS in the last 168 hours. No results for input(s): AMYLASE, LIPASE in the last 168 hours. No results for input(s): TRIG, CHOL, HDL, LDL in the last 168 hours. No results for input(s): AMMONIA in the last 168 hours. Cardiology & Digoxin No results for input(s): TROPONIN, CK, CKMB, BNP, DIGOXIN in the last 168 hours. Invalid input(s): CKTOTAL ABG No results for input(s): PHART, PO2ART, HLB1PZK, GFX8DXL, BEART, [id number] in the last 168 h ours. No results for input(s): SPECSOURCE, PHPOCB, PCO2, PO2, HCO3, TCO2, BEART, FNKK2VOH in the last 168 hours. Drug of overdose and abuse No results for input(s): ALCOHOL, ACTMN, SALICYLATE in the last 168 hours. No results for input(s): AMPHEQUAL, BARBITURATE, BENZSCR, CANNIBSCR, AMPHETAMINE, METHADSCR , OPIATESCR in the last 168 hours. Urinalysis No results for input(s): GLUCOSEU, WBCUA, RBCUA, SQUAMEPIUA, BACTERIAUA, CULTIF in the last 168 hours. Micro results (more choices using dotmicro) Microbiology Results (72 hrs) No results found for the last 72 hours. Radiology results (more choices using dotrisresults) Xr Chest Ap Portable 11/04/2016 SINGLE AP CHEST 11/04/2016 1:04 PM CLINICAL HISTORY: F/U pneumothorax and lung biop sy, chest pain COMPARISON: Chest radiograph and images from CT-guided right lung core biopsy earlier in the day FINDINGS: A single upright AP chest is again provided. There is a pers istent small to moderate-sized right pneumothorax, occupying approximately 20-25% of the vol ume of the hemithorax, and increased in volume from images acquired earlier in the day. Inc reased hazy reticular opacity at the right base favors atelectasis. A faint region of opaci ty in the right lower lung field likely reflects the recently biopsied right lower lobe nodu le. The left lung remains radiographically clear. No pleural effusion is visible. The car diomediastinal silhouette and pulmonary vasculature are unremarkable, without midline shift. Bones and soft tissues are unremarkable. IMPRESSION - 1. ENLARGING RIGHT PNEUMOTHORAX AN D PROBABLE PROGRESSIVE BASILAR ATELECTASIS. Comment: Given the progression of the patient's pneumothorax and persistent right-sided chest pain which has suboptimally responded to analg esia, percutaneous thoracostomy tube placement will be undertaken. Findings and recommendat ions were discussed with Dr. Vargas as well as Dr. Kolton Angel (to be the admitting provide r following chest tube placement) at the time of preliminary interpretation on November 04 at 1300 hours. Dictated and Signed by: Hugo Godfrey MD Electronically signed: 11/04/2016 1 :29 PM Xr Chest Ap Portable 11/04/2016 SINGLE AP CHEST 11/04/2016 11:34 AM CLINICAL HISTORY: Chest pain status post right lung core biopsy -follow-up pneumo COMPARISON: Images from preceding CT guided right lung co re biopsy, chest radiographs June 01, chest CT September 23 FINDINGS: A single upright AP ch est is provided. There is a relatively small right pneumothorax, occupying approximately 10 -15% of the volume of the hemithorax, subjectively increased in volume from postprocedure CT images acquired earlier in the day. Mild hazy reticular opacity at the right base favors a telectasis. A faint focal opacity in the right lower lung field likely reflects the recentl y biopsied right lower lobe nodule. The left lung is radiographically clear. No pleural ef fusion is visible. The cardiomediastinal silhouette and pulmonary vasculature are unremarka ble, without midline shift. Bones and soft tissues are unremarkable. IMPRESSION - 1. SMALL IATROGENIC RIGHT PNEUMOTHORAX, SUBJECTIVELY LARGER COMPARED WITH CT IMAGES ACQUIRED AT THE TIME OF PERCUTANEOUS CORE BIOPSY EARLIER IN THE DAY. FOLLOW-UP RADIOGRAPHY WILL BE PERFORMED IN APPROXIMATELY ONE HOUR TO EVALUATE FOR STABILITY. Results of the study were discussed wi joni Ortega, same day surgery nurse caring for the patient, at the time of preliminary interpr etation on November 04, 2016 at 1135 hours. Dictated and Signed by: MD Taina Figueroa signed: 11/04/2016 12:[address] Guided Biopsy Lung Or Mediastinum 11/04/2016 CT-GUIDED PERCUTANEOUS RIGHT LUNG CORE BIOPSY WITH MODERATE SEDATION 11/04/2016 10: 11 AM CLINICAL HISTORY: Thyroid cancer, RLL nodule, avid on PET COMPARISON: Chest CT and June 02, PET/CT June 17 PROCEDURE: After explaining the potential risks and bene fits of the procedure to the patient, including risk of hemorrhage, infection and pneumothor ax, verbal and written consent were obtained. With the patient prone on the CT gantry, mode rate sedation was administered per institutional protocol. Axial unenhanced CT images were performed through the mid chest, again identifying a small, somewhat spiculated appearing no dule in the posterior lateral right lower lobe. A suitable approach for biopsy was chosen, a nd the overlying dorsal skin prepped and draped in sterile fashion. 5 cc 1% lidocaine were utilized for local anesthesia with CT guidance. A small skin rajinder was made to accommodate t he 17-gauge introducer needle, which was advanced to the margin of the nodule without diffic ulty utilizing CT guidance, and an intercostal PA approach. Five core biopsies of the nodul e were performed through the introducer with an 18-gauge [place] biopsy gun, producing smal l white tissue cores which were placed in formalin and sent for histologic analysis. The in troducer was removed and hemostasis achieved at the puncture site with manual compression. The patient tolerated the procedure well. A trace right pneumothorax developed immediately following removal of the introducer needle, and only slightly enlarged after a short period of observation. The patient was transferred to recovery in stable condition. IMPRESSION - 1 . CT-GUIDED PERCUTANEOUS RIGHT LUNG CORE BIOPSY WITH MODERATE SEDATION, DESCRIBED. 2. SMALL, IATROGENIC RIGHT PNEUMOTHORAX. FOLLOW-UP CHEST RADIOGRAPHY WILL BE PERFORMED TO EVAL UATE FOR PROGRESSION PRIOR TO DISCHARGE. Dictated and Signed by: Hugo Godfrey MD Electronic ally signed: 11/04/2016 11:55 AM I reviewed imaging ASSESSMENT: (meyprob vs meyprobap) Principal Problem: Pneumothorax after biopsy Active Hospital Problems Diagnosis Pneumothorax after biopsy Dr Dsouza following has CXR today at 4 pm then tomorrow morning, 50 percent chance will n eed chest tube Malignant neoplasm of thyroid gland Had sgy Dr Mitchell and then I [address] Walker and if Bx of lung done today not diagn ositic her plan was to send patient to a CT surgeon (flakita) Code Status Full Code Medical Decision Maker Daughter Jennifer if need be DVT Prophylaxis SCD's while in bed (meyaddendum tdnorefesh nownorefresh) PLAN: Obs admit Followup Xrays (dot meyaddendum tdnorefesh nownorefresh) (dot meytime meycritical) [facility] Documentation I expect this patient will be hospitalized for less than 2-midnights and expect the post-ho spital plan to be discharge to home or to an adult foster home. Electronically signed by: Tien Angel MD 11/04/2016 14:34 [facility] (meyaddendum tdnorefesh nownorefresh) Portions of this chart may have been created with Qgiv voice recognition software. Occasi onal wrong-word or sound-alike substitutions may have occurred due to the inherent cervantes itations of voice recognition software. Please read the chart carefully and recognize, using context, where these substitutions have occurred rHugo zee MD - 0 11/04/2016 10:02 AM PSTINTERIM HISTORY AND PHYSICAL UPDATE Pt. Name/Age/: Smitha Rider 56 y.o. 1960 Date of admission: 11/04/2016 The current H&P was reviewed. Re-evaluation of the patient confirms the necessity for the scheduled procedure. No change has occurred in the patient s condition since the H&P was completed less than 30 days ago. ASA 2 - A patient with mild systemic disease Mallampati I (tonsillar pillars, fauces, uvula and soft palate) Electronically signed by: Hugo Godfrey MD, 11/04/2016 10:02 EVERGREENHEALTHElectronically signed by Hugo Godfrey MD at 2016 10:19 AM Susie Guerrero MD - 10/27/2016 12:00 AM PST[facility] PATIENT: Smitha Rider MR#: [id number] :1960 DOS:10/27/2016 ICD/Diagnosis: C73 - Malignant neoplasm of thyroid gland, Diagnosed 09/2016 (Active) Chief Complaint/History of Present Illness: Smitha Rider is a 56 year-old woman recently diagnosed with Stage III, T1a N1a papil ronda thyroid cancer, bilateral, multifocal, larges in right lobe 1cm, positive margin, LVSI indeterminate and PNI present. Left lobe with 0.6 cm nodule, positive margin, LVSI and PN I present, 1/1 small lymph node positive. Indeterminate right lower lobe pulmonary nodule w ith metabolic activity on PET/CT. Smitha underwent Thyrogen stimulated radioactive Iodine-131 ablation on 10/14/16 with 10 0 mCi. Stimulated lab results outlined below. Post-ablation thyroid scan on 10/21/16 demo nstrated significant uptake in the thyroid bed. No evidence of abnormal uptake in other reg ions. Recall the prior PET/CT demonstrated abnormalities of a few small bilateral pulmonar y nodules including a 7mm RLL lesion with SUV of 3.7. This study also demonstrated mixed s clerotic and lytic changes in multiple bones, no associated metabolic activity and non-spe cific morphologic characteristics. Follow-up non-contrast chest CT on 09/23/16 demonstrated stability or the RLL nodules and a new 2.5mm MATTHEW nodule. Stable bone changes at C7, T3 and L1. Smitha tolerated the I-131 treatment well. Minimal salivary gland irritation, sore throa t, fatigue and nausea. These symptoms are nearly resolved at this point. No new areas of pa in. No pulmonary symptoms, denies cough or shortness of breath. She does continue to smok e but wishes to quit. Cites stress as a factor. Review of Systems: ROS ConstitutionalNormal - Denies lack of appetite, fatigue, fever, night sweats, rigors / chills and change in weight.ROS EyesNormal - Denies blurred vision, double vision and visu al difficulties.ROS ENMTNormal - Denies dysphagia, ear pain, epistaxis, esophagitis, sinusi tis and sputum production. ROS NeckAbnormal - Complains of swelling of the neck Some tightn ess in neck. Denies neck masses, muscle weakness, neck pain and decreased range of motion. ROS IntegumentaryNormal - Denies blistering, bruising, dry skin, pruritus and rash.ROS Car diovascularNormal - Denies arrhythmias, chest pain, dyspnea, edema and palpitations.ROS Res piratoryNormal - Denies cough, hemoptysis and wheezing.ROS GastrointestinalAbnormal - Compl ains of nausea. Denies abdominal pain, constipation, diarrhea, heartburn / dyspepsia and vo miting.ROS Genitourinary (F)Normal - Denies dysuria, frequency, hematuria, nocturia and ur ine color change.ROS MusculoskeletalAbnormal - Complains of arthritis and joint pain. Denie s muscle weakness and decreased range of motion.ROS NeurologicNormal - Denies dizziness, he adaches, motor weakness and sensory problems.ROS PsychiatricNormal - Denies mood swings, de pression and euphoria. ROS EndocrineAbnormal - Complains of hot flashes and thyroid disease . Denies diabetes.ROS Hematologic/LymphaticNormal - Denies easy bruising and tender or enl arged lymph nodes. Medications: Ambien 10 mg Ibuprofen 200 mg Levothyroxine 150 mcg TABLET q.d. Tramadol 50 mg Tums 2 TABLET q.d. Zofran 4 mg xanax 0.5 mg Allergies: Morphine Vital Signs: Performed on 10/27/2016, 08:52Weight 87.5 kg Temperature 36.7 C Pulse 99 / min Respiration 16 / m in BP132/75 mm(hg) O2 Sat 100 % Pain 0 Physical Exam: General: Healthy appearing woman in no acute medical distress. KPS: 90 HEENT: Pupils equal , round and reactive to light. No conjunctival icterus or injection. EOMI. Oral, moist mucu s membranes. Minimal neck tenderness, anterior. No masses or nodularity. Lymphatic: No cervical, supraclavicular or axillary lymphadenopathy. Cardiovascular: Regul ar rate and rhythm, no murmur. Pulmonary: Breath sounds heard throughout, no adventitial sounds or increased work of jimbo thing at rest. Extremities: Upper and lower extremities warm and well perfused with no upper or lower ext remity edema. Neurologic: Alert, oriented and appropriated in conversation. CN II-IX 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. Moves all 4 extremities normally with normal gait. Psychiatric: Appropriate. Questionnaires: Are you having pain?No Imaging, pathology and pertinent labs reviewed personally and described above in history o f present illness. Results for SMITHA RIDER ( ) as of 11/02/2016 11:27 Ref. Range 6 10: 08: 08:05Thyroglobulin Latest Ref Range: 1.2 - 35.0 ng/mL0.5 (L)0.5 (L)3.1Thyroglobulin AbLatest Ref Range: 0.0 - 4.0 IU/mL<0.9<0.9<0.9TSHLatest Ref Ran ge: 0.34-5.60 uIU/mL1.230.9196.55 (H) Impression/Plan: 56 year-old woman recently diagnosed with Stage III, T1a N1a papillary thyroid cancer, gosia ateral, multifocal, larges in right lobe 1cm, positive margin, LVSI indeterminate and PNI p resent. Left lobe with 0.6 cm nodule, positive margin, LVSI and PNI present, 1/1 small lym ph node positive. indeterminate right lower lobe pulmonary nodule with metabolic activity on PET/CT. s/p I-131 ablation on 10/14/16 with 100mCi. Smitha tolerated I-131 treatment well, Thyrogen stimulated treatment with TSH 96.55 at t reatment. Pre-treatment stimulated labs are notable for a rise in the Tg from 0.5 to 3.1. Pos-treatment imaging demonstrated uptake at the thyroid bed. None of the bone abnormaliti es or pulmonary nodules area apparent on thyroid I-131 imaging. Small lesion may be below the imaging threshold of the study. Repeat CT chest at a 3 month interval from her prior P ET-CT demonstrates stability of RLL nodules and a new tiny 2.5 mm MATTHEW nodule. At minimum f ollow-up CT imaging in 3-6 months is warranted. However, given the presence of PET activit y at the RLL nodule a biopsy should be considered. Biopsy options include percutaneous CT g uided or surgical, both pose a challenge in this location. Imaging was reviewed with Radio logy here at [facility] and it was felt that CT guided biopsy offers a reasonable opportunity fo r diagnosis. The options were explained to Smitha and she wished to proceed with CT bio psy. We discussed the importance of smoking cessation. She plans to continue efforts to quit on her own, declined medications today. Plan: -CT guided lung biopsy, if non-diagnostic referral to CT surgery. Consider f/u CT chest in 3 months as an alternative. - Follow-up in clinic 1 week after biopsy - Thyroid replacement managed by Dr. Mitchell at this time, continues on levothyroxine 150mg daily. Goal TSH should be 0.1 to lower limit of normal. -Smoking cessation. -Stimulated Thyroid scan in 6 months with stimulated labs, TSH, Tg and anti-Tg -Referral t o Dr. Coles, endocrinology to establish rn long term care follow-up. Thank you for allowing me to participate in the care of Smitha Rider. If you should have any questions regarding this evaluation, please do not hesitate to contact me. Susie Vargas M.D. Radiation Oncologist Department of Radiation Oncology [facility] Electronically signed by Susie Walker M.D CC: Doris Stanford M.D. This note was transcribed using Qgiv speech recognition software. As a result, there ma y be unintended for medical and/or spelling errors. Every attempt is made to correct dicta tion. If there are any questions or errors please contact our office. CSN: [id number] signed by Susie Walker MD at 11/02/2016 11:55 AM PSTd ocumented in this encounter Consult Notes Del Dsouza MD - 11/04/2016 6:01 PM [place] [id number] CONSULTATION DEL DSOUZA MD Patient: SMITHA RIDER Admitting: HUGO GODFREY MR #: [id number] LOC: PT TYPE: Adm Date: 11/04/2016 : 1960 DATE: 11/04/2016 HISTORY OF PRESENT ILLNESS: The patient is a 56-year-old female who recently today underw ent a percutaneous FNA biopsy of an 8 mm right lung nodule. Shortly after the procedure, t he patient became short of breath and anxious, was noted to have a small apical pneumothora x. A followup 1 hour later showed it to be similar, perhaps slightly enlarged size. The p atient required medication for chest discomfort and she is more comfortable at this time. Past history is that the patient underwent total thyroidectomy for thyroid malignancy. Sh trip is unsure of the stage, but states that one lymph node was positive. She subsequently un derwent radiotherapy and has completed this just recently. Before the diagnosis of thyroid cancer, the patient had some chest pain which was felt to initially be cardiac, subsequen tly ruled out. Part of that workup included a chest CT showing the several multiple nodule s in the right and left lung. Subsequent PET scan diagnosed the thyroid malignancy as well as some uptake in the right hilar node. Now post-radiotherapy, the patient has had no bo nge in the CT imaging. Subsequently the FNA biopsy of one of these nodules was recommended . PAST MEDICAL HISTORY: The patient has some anxiety, depression, history of postoperative nausea and vomiting, some insomnia. SURGICAL HISTORY: Includes a partial colectomy, hysterectomy, appendectomy, thyroidectomy . FAMILY HISTORY: Negative for malignancies to her knowledge. SOCIAL HISTORY: The patient drinks social consumption. No other drug use. Sexual activi ty not asked. Tobacco: Denies. 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 She is in the [place], [place] area and is here with a friend. HOME MEDICATIONS: Xanax 0.5 tablets 3 times a day as needed for anxiety. Calcium carbonate 500 twice daily. Ibuprofen 200 mg every 6 hours for pain. Synthroid 150 mcg per day. Zofran as needed. Tramadol 50 mg every 6 hours as needed. Ambien 10 for sleep. REVIEW OF SYSTEMS: Cardiovascular: No angina. Positive for chest pain. No TIA, stroke. Pulmonary: No hemoptysis, wheezing, or prior history of shortness of breath. Gastrointe stinal: No change in bowel habits. Genitourinary: Negative. Musculoskeletal: Denies. Neurologic: Intact. Some anxiety, particularly with this episode. PHYSICAL EXAMINATION: The patient seen in the outpatient surgery area. VITAL SIGNS: Hear t rate 72, respiration 20, blood pressure 106/92, saturations on oxygen 97 percent. Her we ight is 82 kilograms. BMI is 28.59. Temperature afebrile. GENERAL APPEARANCE: A pleasant female, good historian. HEENT: No icterus. NECK: Supple. Well-healed thyroid incision with no crepitance. LUNGS: Demonstrate dimin ished breath sounds on the right, clear on the left. Trachea midline. HEART: Regular rate. No murmurs, gallops, rubs. ABDOMEN: Soft, benign. LABORATORIES: White count is 12,000. Hematocrit is 14.6. INR 1.96. Chest x-rays times 2 were reviewed demonstrating the small apical pneumothorax approximate ly 1 inch from the outer superior margin, relatively stable on second film. PET scan from the summer was reviewed as well demonstrating uptake in the hilar region as well as in the neck. The small nodules in both lung ferrari are not visualized on this PET scan. IMPRESSION: 1. This is a 56-year-old female who has undergone a percutaneous biopsy of a small nodule , 8 mm, in the right lung field for diagnostic purposes, complicated by pneumothorax. At t his time, the patient is stable. Her chest x-rays are unchanged. Clinically she does have diminished lung sounds. Plan: I would like to follow up in a couple more hours, follow up films and if the lung has dropped insignificantly a chest tube can be placed. 2. Thyroid cancer, status post total thyroid. Treat with thyroid replacement 150. 3. Baseline history of anxiety, normally on alprazolam. We will continue this medication during the hospitalization. ADDENDUM: Followup chest x-ray at 4:00 p.m. was personally reviewed, demonstrating a 30 p ercent pneumothorax on the right side. Clinically the patient has stable vital signs and n o evidence of hypoxia on 2 liters; however, does have more chest pain anteriorly. PLAN: Recommend tube thoracostomy. Procedure, risks and benefits were detailed with the patient who signs consent. DEL DSOUZA MD Dictated by DEL DSOUZA MD 11/04/2016 18:01:37 Transcribed on 11/04/2016 18:23:36 by jazlyn job# [id number] Confirmation #: [id number] cc: ZULEYKA MARTÍNEZ CRNPElectronically signed by Del Dsouza MD at 017 9:05 AM PSTdocumented in this encounter Miscellaneous Notes Plan of Care - Betsy Aceves RN - 11/06/2016 10:33 AM PSTProblem: Patient Care Overview (Adult) Goal: Care Team Goals & Evaluation PROBLEM-RELATED GOALS: Pt will rate at tolerable level of 4/10 by 11/06/16 Pt will have no s/s of infection by 11/06/16 STRATEGY TO ACHIEVE GOALS: Assess pain level frequently and medicate per dr. order Assess chest tube site RESTRAINT-RELATED GOALS: STRATEGIES TO ACHIEVE RESTRAINT GOALS: Outcome: Adequate for Discharge Date Met: 11/06/16 Goal Evaluation: Dc instructions given. Surgeon in and removed chest tube. Pt rates her p ain at 3/10. Denies any other complaints has no further questions after instructions given a nd is ready to go home. lan of Tirso messer, Ursula Maki RN - 11/06/2016 6:26 AM PSTPt has had a fairly comfortable night, medicate d for c/o pain @ R CT site with some relief each time. BS are clear and equal, CT clamped si nce 2200, SaO2 remain 95-99 on room air, lung sounds consistent. Pt states she's ready to go home. lan of Avril Sifuentes RN - 11/05/2016 1:02 PM PSTProblem: Discharge Planning Goal: Patient will be discharged in a safe manner Outcome: Unchanged Discharge planning: This CM spoke with Smitha at her bedside regarding her discharge plans. She lives in a home in [place] on the main floor. There are two steps to enter the house. Smitha lives on the main level, Brigitte lives in the upstairs and Jennifer lives in the sement. Prior to hospitalization Smitha was independent in her ADL's. 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 Smitha does not own or use any DME. No DME company preference. She declines the need for for SNF and HH. Her PCP is Zuleyka Martínez and she uses [facility] pharmacy or [facility] in [place] . Her daughters will be her ride home when she is stable for discharge. No discharge needs noted. Electronically signed by: Avril Brooks, BILL 11/05/2016 13:02 lan of Murphy Jordan Chaplain - 11/05/2016 10:25 AM PST Spiritual Care Smitha Rider is a 56 y.o. female who is admitted for Pneumothorax after biopsy [J95.8 [id number]]. Spiritual Evaluation: Not especially congregational, but did appreciate merchandise flow manager visit. Spiritual Intervention: Active Listening, pastoral presence. Spiritual Outcomes: Appreciates Battery Engineer Visit Spiritual Goals / Follow-up: Will see the patient as requested. If there are any other spiritual care issues that arise, please contact merchandise flow manager. lan of Care - Ursula Marc RN - 11/05/2016 5:37 AM PSTPt has required frequent pain med and anti anxiety med for pain @ R CT insertion site. Pt c/o of sleeplessness in spite of meds and com fort measures. Lung sounds are clear and audible throughout, R CT intact, no crepitus or air leak noted, scant to no bloody drng. Up to BSC w/minimal assist, voided sm amt dk [email or web address] ctronically signed by Ursula Marc RN at 11/05/2016 5:43 AM PSTeICU Note - Cornel Reynoso RN - 11/04/2016 7:55 PM PSTDr. Dsouza here after viewing CXR results. Informed p t that she needs to have a chest tube placed. Informed consent obtained. See sedation narra tor for V.S. And assessment. 20 Fr. Chest tube placed right lateral chest. Large air leak i nitially, no SQ air. Pt crying in pain. Dr. Dsouza pulled out the chest tube a little af ter X-ray obtained to see if it would help the pain. Medicated with Toradol and oxycodone a nd xanex for anxiety. After 15 min Pt stated the pain was tolerable and improving.Taina bowling signed by Kelley Reynoso RN at 11/04/2016 8:00 PM PSTOp Note - Del Dsouza MD - 11/04/2016 6:05 PM PST [address] [address] OPERATIVE REPORT DEL DSOUZA MD Patient: SMITHA RIDER Admitting: HUGO GODFREY MR #: [id number] LOC: PT TYPE: Adm Date: 11/04/2016 : 1960 DATE: 11-04-16 PREOPERATIVE DIAGNOSIS: Right pneumothorax. POSTOPERATIVE DIAGNOSIS: Right pneumothorax. OPERATION: Placement of right chest tube. ANESTHETIC: Local lidocaine 1 percent with epinephrine, 60 mL plus, Versed 3 mg, fentanyl 50. SURGEON: Del Dsouza MD. COMPLICATIONS: None. INDICATIONS: The patient is a 56-year-old female status post needle biopsy of right lung lesion this afternoon. Subsequent observation demonstrated a persistent and worsening pneu mothorax with symptoms of chest pain. Plan is made for tube thoracostomy. Procedure, risk s and benefits were discussed. DESCRIPTION OF PROCEDURE: The patient was laid in a semi-supine position with nasal oxyge n and monitor. Consent was signed and witnessed. The anterior right chest was carefully p repped and draped. The patient was sequentially sedated with Versed and fentanyl IV with m aximum 3 mg and 50 mg respectively. Local anesthetic was provided. A transverse incision was made in the anterior axillary line 4th interspace and deepened with curved Mayos. The interspace was punctured and a gush of air was noted. The smallest available, 24-English ch est tube was placed and attached to the Pleur-Evac demonstrating air leak. This was secure d to the skin. Chest x-ray showed good position; however, the patient appeared to complain of pleuritic discomfort. It was then withdrawn and sutured at the 10 cm heather, surrounded by appropriate dressing. The patient tolerated the procedure well. COMPLICATIONS: None. DEL DSOUZA MD Dictated by DEL DSOUZA MD 11/04/2016 18:05:06 Transcribed on 11/04/2016 18:58:44 by [facility] job# [id number] Confirmation #: [id number] cc: ZULEYKA MARTÍNEZ CRNPElectronically signed by Del Dsouza MD at 017 9:15 AM PSTdocumented in this encounter Plan of Treatment +--------+ [...] [place] | | | | | | [id number] | | | | | | | | +--------+ + + + + + + +--------+ + + | Name | Type | Priori | Associated Diagnoses | Order Schedule | | | | ty | | | + + +--------+ + + | Surgical Pathology | Pathology | Routin | | One Time for 1 | | Exam | and | e | | Occurrences starting | | | Cytology | | | 11/04/2016 until | | | | | | 11/04/2016 | + + +--------+ + + documented as of this encounter Procedures + +--------+ + + + | Procedure Name | Priori | Date/Time | Associated Diagnosis | Comments | | | ty | | | | + +--------+ + + + | EXTRA RANJITH RACHEL | Routin | 11/06/2016 | | Results for this | | TUBE | e | 7:12 AM | | procedure are in the | | | | PST | | results section. | + +--------+ + + + | XR CHEST AP PORTABLE | Routin | 11/06/2016 | | Results for this | | | e | 6:05 AM | | procedure are in the | | | | PST | | results section. | + +--------+ + + + | MAGNESIUM | Add-On | 11/06/2016 | | Results for this | | | | 4:34 AM | | procedure are in the | | | | PST | | results section. | + +--------+ + + + | BASIC METABOLIC | Routin | 11/06/2016 | | Results for this | | PANEL | e | 4:34 AM | | procedure are in the | | | | PST | | results section. | + +--------+ + + + | CT ANGIOGRAM | STAT | 11/05/2016 | | Results for this | | PULMONARY | | 5:52 PM | | procedure are in the | | | | PST | | results section. | + +--------+ + + + | XR CHEST AP PORTABLE | Routin | 11/05/2016 | | Results for this | | | e | 3:58 PM | | procedure are in the | | | | PST | | results section. | + +--------+ + + + | EXTRA LAVENDER TOP | Routin | 11/05/2016 | | Results for this | | TUBE | e | 7:29 AM | | procedure are in the | | | | PST | | results section. | + +--------+ + + + | BASIC METABOLIC | Routin | 11/05/2016 | | Results for this | | PANEL | e | 7:18 AM | | procedure are in the | | | | PST | | results section. | + +--------+ + + + | XR CHEST AP PORTABLE | Routin | 11/05/2016 | | Results for this | | | e | 6:11 AM | | procedure are in the | | | | PST | | results section. | + +--------+ + + + | XR CHEST AP PORTABLE | Routin | 11/04/2016 | | Results for this | | | e | 5:35 PM | | procedure are in the | | | | PST | | results section. | + +--------+ + + + | XR CHEST AP PORTABLE | Routin | 11/04/2016 | | Results for this | | | e | 4:10 PM | | procedure are in the | | | | PST | | results section. | + +--------+ + + + | CULTURE, MRSA | Routin | 11/04/2016 | | Results for this | | | e | 3:44 PM | | procedure are in the | | | | PST | | results section. | + +--------+ + + + | XR CHEST AP PORTABLE | Routin | 11/04/2016 | | Results for this | | | e | 1:04 PM | | procedure are in the | | | | PST | | results section. | + +--------+ + + + | XR CHEST AP PORTABLE | Routin | 11/04/2016 | | Results for this | | | e | 11:34 AM | | procedure are in the | | | | PST | | results section. | + +--------+ + + + | CT GUIDED BIOPSY | Routin | 11/04/2016 | Pulmonary nodule | Results for this | | LUNG OR MEDIASTINUM | e | 10:58 AM | | procedure are in the | | | | PST | | results section. | + +--------+ + + + | DI: CT BIOPSY | | 11/04/2016 | CT | | | | | 10:06 AM | | | | | | PST | | | + +--------+ + + + | EXTRA GREEN TOP TUBE | Routin | 11/04/2016 | | Results for this | | | e | 9:33 AM | | procedure are in the | | | | PST | | results section. | + +--------+ + + + | PROTIME INR | STAT | 11/04/2016 | | Results for this | | | | 9:11 AM | | procedure are in the | | | | PST | | results section. | + +--------+ + + + | CBC NO DIFFERENTIAL | STAT | 11/04/2016 | | Results for this | | | | 9:11 AM | | procedure are in the | | | | PST | | results section. | + +--------+ + + + | SURGICAL PATHOLOGY | Routin | 11/04/2016 | | Results for this | | EXAM | e | 12:00 AM | | procedure are in the | | | | PST | | results section. | + +--------+ + + + documented in this encounter Results Extra Lavender Top Tube (11/06/2016 7:12 AM PST) + +-------+ + + + | Component | Value | Ref Range | Performed | Pathologist | | | | | At | Signature | + +-------+ + + + | Extra | Done | | [facility] | | | [facility] | | | [facility] | Top Tube | | | [facility] | | | [...] ST. | [address] | [place] | [phone] | | [facility] | | [address] | | | - LABORATORY | | | | + + + + + XR Chest AP Portable (11/06/2016 6:05 AM PST) + + | Specimen | + + | | + + + + + | Narrative | Performed At | + + + | XR CHEST AP PORTABLE 11/06/2016 6:05 AM HISTORY: followup. | [facility] | | COMPARISON: 11/05/2016 Findings: A right chest tube is observed | | | with tip in the mid right hemithorax. No residual pneumothorax is | | | seen. There is mild atelectasis in the left lung base. Heart size is | | | within normal limits. Aorta demonstrates mild calcification. | | | Mediastinum is unremarkable. Central pulmonary vasculature is normal. | | | There are no acute osseous findings. Bone mineralization is normal. | | | IMPRESSION - Right chest tube in place with no evidence for | | | pneumothorax. Stable mild airspace disease likely representing | | | subsegmental atelectasis in the left lung base. Dictated and | | | Signed by: Chai Nguyen MD Electronically signed: 11/06/2016 8:32 | | | AM | | + + + + + | Procedure Note | + + | Christopher, Rad Results In - 11/06/2016 8:36 AM PST XR CHEST AP PORTABLE 11/06/2016 6:05 AM | | | | HISTORY: followup. | | | | COMPARISON: 11/05/2016 | | | | Findings: | | A right chest tube is observed with tip in the mid right hemithorax. No residual | | pneumothorax is seen. There is mild atelectasis in the left lung base. Heart | | size is within normal limits. Aorta demonstrates mild calcification. Mediastinum | | is unremarkable. Central pulmonary vasculature is normal. There are no acute | | osseous findings. Bone mineralization is normal. | | | | IMPRESSION - | | Right chest tube in place with no evidence for pneumothorax. | | | | Stable mild airspace disease likely representing subsegmental atelectasis in the | | left lung base. | | | | Dictated and Signed by: Chai Nguyen MD | | Electronically signed: 11/06/2016 8:32 AM | + + + +---------+ + + | Performing | Address | City/State/Zipcode | Phone Number | | Organization | | | | + +---------+ + + | [facility] | | | | + +---------+ + + Magnesium (11/06/2016 4:34 AM PST) + +-------+ + + + | Component | Value | Ref Range | Performed | Pathologist | | | | | At | Signature | + +-------+ + + + | Magnesium | 1.8 | 1.8 - 2.5 mg/dL | [facility] | | | | | | [facility] [...] | + + + + + | [facility] | [address] | [place] | [phone] | | [facility] | | [address] | | | - LABORATORY | | | | + + + + + Basic Metabolic Panel (11/06/2016 4:34 AM PST) + + + + + + | Component | Value | Ref Range | Performed | Pathologist | | | | | At | Signature | + + + + + + | Na | 138 | 136 - 149 | [facility] | [...] + + + + | CO2 | 27 | 24 - 31 mmol/L | [facility] [...] + + + + | Glucose | 100 | 70 - 109 mg/dL | [facility] | | | | | | [facility] | | | | | [facility]ICAL | | | | | | CENTER - | | | | | | LABORATORY | | + + + + + + | BUN | 12 | 7 - 18 mg/dL | [facility] | | | | | [facility] | | [facility] | [facility] | | | | | | C[facility] - | | | | | | LABORATORY | | + + + + + + | Creatinine | 0.92 | 0.60 - 1.30 | [facility] | | | | | mg/dL | [facility] | | | | | | MEDICAL | | | | | | CENTER - | | | | | | LABORATORY | | + + + + + + | eGFR, | 64Comment: GLOMERULAR | mL/min/1.73m2 | [facility] | | | non- | FILTRATION | | [facility] | | | [place] | RATE,ESTIMATED | | MEDICAL | | | | mL/min/1.75h6Cwdq than | | CENTER - | | [...] + + + + | Calcium | 8.8 | 8.3 - 10.5 | [facility] | | | | | mg/dL | [facility] | | | | | | MEDICAL | | | | | | CENTER - | | | | | | LABORATORY | | + + + + + + | BUN/Creatin | 13.0 | | [facility] | | | ine [...] | + + + + + | [facility] | [address] | [place] | [phone] | | [facility] | | [address] | | | - LABORATORY | | | | + + + + + CT Angiogram Pulmonary (11/05/2016 5:52 PM PST) + + | Specimen | + + | | + + + + + | Narrative | Performed At | + + + | CT PULMONARY ANGIOGRAM 11/05/2016 5:46 PM CLINICAL HISTORY: | [facility] | | Severe right posterior chest pain near chest tube, look for PE | | | COMPARISON: Chest radiograph from the same day and multiple | | | previous radiographs, chest CT September and June 2016 | | | TECHNIQUE: Axial images are performed through the chest following the | | | uneventful intravenous administration of 60 mL Omnipaque-350 | | | contrast, with timing of the contrast bolus optimized for | | | opacification of the pulmonary arterial tree. Multiplanar | | | reformations are also performed. FINDINGS: The study is of | | | satisfactory quality, and demonstrates no visible filling defect | | | within the pulmonary arterial tree to suggest the presence of | | | thromboembolic disease. Minimal calcified plaque is again present in | | | the thoracic aorta and proximal great vessels. The mediastinum is | | | otherwise unremarkable. No pathologic lymph node enlargement is | | | evident. There is no pleural effusion. A thoracostomy tube | | | enters the right hemithorax laterally in the fifth intercostal space, | | | coursing superomedially within the posterior aspect of the minor | | | fissure and largely in the major fissure to its apex, and ultimately | | | terminating in the posterior upper hemithorax. Minimal loculi of | | | pleural gas are noted along the anterior and posterior margins of the | | | right apex and within the fissure. There is no other pneumothorax. | | | Emphysematous changes are again apparent. A thin-walled bulla | | | persists in the left infrahilar region. The previously described | | | superior right lower lobe nodule is likely increased in size from the | | | study of September 2016, presently measuring approximately 11 mm | | | allowing for a small volume of surrounding opacity likely reflecting | | | biopsy related hemorrhage, compared to 8 mm previously. Previously | | | described nodule in the lateral right costophrenic sulcus is not | | | identified presently, nor is a nodule in the posterior left | | | costophrenic sulcus. There is a stable 2.5 mm nodule in the lingula | | | on image 77. Previously described nodule more superiorly in the | | | left upper lobe is not identified presently. No new nodule, | | | consolidation central airway abnormality is evident. Mild dependent | | | density in the lungs and scattered basilar bandlike opacities favor | | | atelectasis. Previously described small sclerotic lesion in the | | | lower sternal body, inferior C7 vertebral body and left | | | posterolateral aspect of the T3 vertebral body are unchanged. No | | | new lytic or blastic lesion is evident. There is multilevel | | | spondylosis. Several small, rounded hypodensities in the imaged | | | liver are stable in size and number, measuring up to 7 mm, again | | | favoring cysts. A 12 mm left adrenal nodule stable, again favoring | | | an adenoma. Imaged upper abdomen is otherwise unremarkable. | | | IMPRESSION - 1. NO EVIDENCE OF PULMONARY EMBOLISM. 2. RIGHT | | | THORACOSTOMY TUBE COURSING WITHIN THE MINOR AND MAJOR FISSURES | | | DESCRIBED, WITH FEW TINY LOCULI OF PLEURAL GAS IN THE FISSURE AND | | | ALONG THE MARGIN OF THE APEX. 3. INTERVAL ENLARGEMENT OF THE | | | RECENTLY BIOPSIED RIGHT LOWER LOBE LUNG NODULE COMPARED WITH IMAGING | | | OF SEPTEMBER 2016, WHILE OTHER PREVIOUSLY DESCRIBED NODULES ARE STABLE | | | OR NOT VISIBLE PRESENTLY. CENTRILOBULAR EMPHYSEMA IS AGAIN NOTED. | | | 4. FEW STABLE, NON-SPECIFIC SCLEROTIC BONE LESIONS. 5. | | | STABLE HYPODENSITIES IN THE LIVER, FAVORING CYSTS. 6. STABLE | | | SMALL LEFT ADRENAL NODULE FAVORING AN ADENOMA. Preliminary results | | | of this study were reported by the [facility] radiologist on November | | | 2016 at 1829 hours. Dictated and Signed by: Hugo Godfrey MD | | | Electronically signed: 11/06/2016 6:43 AM | | + + + + + | Procedure Note | + + | Christopher, Rad Results In - 11/06/2016 6:[address] PULMONARY ANGIOGRAM 11/05/2016 5:46 PM | | | | CLINICAL HISTORY: Severe right posterior chest pain near chest tube, look for | | PE | | | | COMPARISON: Chest radiograph from the same day and multiple previous | | radiographs, chest CT September and June 2016 | | | | TECHNIQUE: Axial images are performed through the chest following the uneventful | | intravenous administration of 60 mL Omnipaque-350 contrast, with timing of the | | contrast bolus optimized for opacification of the pulmonary arterial tree. | | Multiplanar reformations are also performed. | | | | FINDINGS: The study is of satisfactory quality, and demonstrates no visible | | filling defect within the pulmonary arterial tree to suggest the presence of | | thromboembolic disease. Minimal calcified plaque is again present in the | | thoracic aorta and proximal great vessels. The mediastinum is otherwise | | unremarkable. No pathologic lymph node enlargement is evident. There is no | | pleural effusion. | | | | A thoracostomy tube enters the right hemithorax laterally in the fifth | | intercostal space, coursing superomedially within the posterior aspect of the | | minor fissure and largely in the major fissure to its apex, and ultimately | | terminating in the posterior upper hemithorax. Minimal loculi of pleural gas | | are noted along the anterior and posterior margins of the right apex and within | | the fissure. There is no other pneumothorax. | | | | Emphysematous changes are again apparent. A thin-walled bulla persists in the | | left infrahilar region. The previously described superior right lower lobe | | nodule is likely increased in size from the study of September 2016, presently | | measuring approximately 11 mm allowing for a small volume of surrounding opacity | | likely reflecting biopsy related hemorrhage, compared to 8 mm previously. | | Previously described nodule in the lateral right costophrenic sulcus is not | | identified presently, nor is a nodule in the posterior left costophrenic sulcus. | | There is a stable 2.5 mm nodule in the lingula on image 77. Previously | | described nodule more superiorly in the left upper lobe is not identified | | presently. No new nodule, consolidation central airway abnormality is evident. | | Mild dependent density in the lungs and scattered basilar bandlike opacities | | favor atelectasis. | | | | Previously described small sclerotic lesion in the lower sternal body, inferior | | C7 vertebral body and left posterolateral aspect of the T3 vertebral body are | | unchanged. No new lytic or blastic lesion is evident. There is multilevel | | spondylosis. Several small, rounded hypodensities in the imaged liver are | | stable in size and number, measuring up to 7 mm, again favoring cysts. A 12 mm | | left adrenal nodule stable, again favoring an adenoma. Imaged upper abdomen is | | otherwise unremarkable. | | | | IMPRESSION - | | 1. NO EVIDENCE OF PULMONARY EMBOLISM. | | | | 2. RIGHT THORACOSTOMY TUBE COURSING WITHIN THE MINOR AND MAJOR FISSURES | | DESCRIBED, WITH FEW TINY LOCULI OF PLEURAL GAS IN THE FISSURE AND ALONG THE | | MARGIN OF THE APEX. | | | | 3. INTERVAL ENLARGEMENT OF THE RECENTLY BIOPSIED RIGHT LOWER LOBE LUNG NODULE | | COMPARED WITH IMAGING OF SEPTEMBER 2016, WHILE OTHER PREVIOUSLY DESCRIBED NODULES | | ARE STABLE OR NOT VISIBLE PRESENTLY. CENTRILOBULAR EMPHYSEMA IS AGAIN NOTED. | | | | 4. FEW STABLE, NON-SPECIFIC SCLEROTIC BONE LESIONS. | | | | 5. STABLE HYPODENSITIES IN THE LIVER, FAVORING CYSTS. | | | | 6. STABLE SMALL LEFT ADRENAL NODULE FAVORING AN ADENOMA. | | | | Preliminary results of this study were reported by the [facility] radiologist on | | November 05, 2016 at 1829 hours. | | | | Dictated and Signed by: Hugo Godfrey MD | | Electronically signed: 11/06/2016 6:43 AM | + + + +---------+ + + | Performing | Address | City/State/Zipcode | Phone Number | | Organization | | | | + +---------+ + + | [facility] | | | | + +---------+ + + XR Chest AP Portable (11/05/2016 3:58 PM PST) + + | Specimen | + + | | + + + + + | Narrative | Performed At | + + + | XR CHEST AP PORTABLE 11/05/2016 3:58 PM HISTORY: chest tube. | [facility] | | COMPARISON: Multiple priors. Findings: A right chest tube is | | | observed with tip in the mid right hemithorax. No residual | | | pneumothorax is seen. There is mild atelectasis in the left lung base. | | | Heart size is within normal limits. Aorta is normal. Mediastinum is | | | unremarkable. Central pulmonary vasculature is normal. There are no | | | acute osseous findings. Bone mineralization is normal. IMPRESSION | | | - Right chest tube in place with no evidence for pneumothorax. | | | Dictated and Signed by: Iftikhar Larios MD Electronically signed: | | | 11/05/2016 4:13 PM | | + + + + + | Procedure Note | + + | Christopher, Rad Results In - 11/05/2016 4:16 PM PST XR CHEST AP PORTABLE 11/05/2016 3:58 PM | | | | HISTORY: chest tube. | | | | COMPARISON: Multiple priors. | | | | Findings: | | A right chest tube is observed with tip in the mid right hemithorax. No residual | | pneumothorax is seen. There is mild atelectasis in the left lung base. Heart | | size is within normal limits. Aorta is normal. Mediastinum is unremarkable. | | Central pulmonary vasculature is normal. There are no acute osseous findings. | | Bone mineralization is normal. | | | | IMPRESSION - | | Right chest tube in place with no evidence for pneumothorax. | | | | Dictated and Signed by: Iftikhar Larios MD | | Electronically signed: 11/05/2016 4:13 PM | + + + +---------+ + + | Performing | Address | City/State/Zipcode | Phone Number | | Organization | | | | + +---------+ + + | [facility] | | | | + +---------+ + + Extra Lavender Top Tube (11/05/2016 7:29 AM PST) + +-------+ + + + | Component | Value | Ref Range | Performed | Pathologist | | | | | At | Signature | + +-------+ + + + | Extra | Done | | [facility] | | | Lavender | | | [facility] | | | Top Tube | | | MEDICAL | | | [...] + | [facility] | [address] | [place] | [phone] | | [facility] | | [id number] | | | - LABORATORY | | | | + + + + + Basic Metabolic Panel (11/05/2016 7:18 AM PST) + + + + + + | Component | Value | Ref Range | Performed | Pathologist | | | | | At | Signature | + + + + + + | Na | 136 | 136 - 149 | [facility] | | | | | mmol/L | [facility] | | | | | | MEDICAL | | | | | | CENTER - | | | | | | LABORATORY | | + + + + + + | K | 3.9 | 3.5 - 5.1 | [facility] | | | | | mmol/L | [facility] | | | [facility] | | MEDICAL | | | | | | CENTER - | | | | | | LABORATORY | | + + + + + + | Cl | 109 | 98 - 109 mmol/L | [facility] | | | | | | [facility] | | | | | | [facility] | | | | | | CENTER - | | | | | | LABORATORY | | + + + + + + | CO2 | 23 (L) | 24 - 31 mmol/L | [facility] [...] + + + + | Glucose | 99 | 70 - 109 mg/dL | [facility] | | | | | | ST[facility] [...] + + + + | Creatinine | 0.87 | 0.60 - 1.30 | [facility] | | | | | mg/dL | [facility] | | | | | | MEDICAL | | | | | | CENTER - | | | | | | LABORATORY | | + + + + + + | eGFR, | 68Comment: GLOMERULAR | mL/min/1.73m2 | [facility] | | | non- | FILTRATION | | [facility] | | | [place] | RATE,ESTIMATED | | MEDICAL | | | | mL/min/1.36n0Jdok than | | CENTER - | | [...] + + + + | Calcium | 8.5 | 8.3 - 10.5 | [facility] | | | | | mg/dL | [facility] | | | | | | MEDICAL | | | | | | CENTER - | | | | | | LABORATORY | | + + + + + + | BUN/Creatin | 13.8 | | [facility] | | | ine Ratio | | | [facility] | | | [...] | + + + + + | [facility] | [address] | [place], [place] | [phone] | | [facility] | | [address] | | | - LABORATORY | | | | + + + + + XR Chest AP Portable (11/05/2016 6:11 AM [facility]) + + | Specimen | + + | | + + + + + | Narrative | Performed At | + + + | SINGLE AP CHEST 11/05/2016 6:11 AM CLINICAL HISTORY: Followup PTX | [facility] | | and chest tube COMPARISON: Chest radiographs from the previous day | | | FINDINGS: The right thoracostomy tube again projects over the mid | | | right hemithorax, ending in the suprahilar region. No | | | residual/recurrent pneumothorax is apparent. There is similar mild | | | right basilar reticular opacity favoring atelectasis. No pleural | | | effusion is visible. The left lung remains clear. | | | Cardiomediastinal silhouette and pulmonary vasculature are | | | unremarkable. Bones and soft tissues are unremarkable. | | | IMPRESSION - 1. NO RESIDUAL/RECURRENT RIGHT PNEUMOTHORAX OR | | | OTHER EVIDENCE OF NEW DISEASE IN THE CHEST. Dictated and Signed | | | by: Hugo Godfrey MD Electronically signed: 11/05/2016 7:43 AM | | + + + + + | Procedure Note | + + | Christopher, Rad Results In - 11/05/2016 7:46 AM PST SINGLE AP CHEST 11/05/2016 6:11 AM | | | | CLINICAL HISTORY: Followup PTX and chest tube | | | | COMPARISON: Chest radiographs from the previous day | | | | FINDINGS: The right thoracostomy tube again projects over the mid right | | hemithorax, ending in the suprahilar region. No residual/recurrent pneumothorax | | is apparent. There is similar mild right basilar reticular opacity favoring | | atelectasis. No pleural effusion is visible. The left lung remains clear. | | Cardiomediastinal silhouette and pulmonary vasculature are unremarkable. Bones | | and soft tissues are unremarkable. | | | | IMPRESSION - | | | | 1. NO RESIDUAL/RECURRENT RIGHT PNEUMOTHORAX OR OTHER EVIDENCE OF NEW DISEASE | | IN THE CHEST. | | | | Dictated and Signed by: Hugo Godfrey MD | | Electronically signed: 11/05/2016 7:43 AM | + + + +---------+ + + | Performing | Address | City/State/Zipcode | Phone Number | | Organization | | | | + +---------+ + + | [facility] | | | | + +---------+ + + XR Chest AP Portable (11/04/2016 5:35 PM PST) + + | Specimen | + + | | + + + + + | Narrative | Performed At | + + + | XR CHEST AP PORTABLE 11/04/2016 5:35 PM HISTORY: right chest tube | [facility] | | placement- pneumothorax. COMPARISON: 11/04/2016 Findings: There | | | is an interval placement of a right-sided chest tube with resolution | | | of the previously described right pneumothorax. There is improved | | | aeration of the right lung. The left lung remains clear. Minimal | | | opacity in the right lung base likely is related to recently biopsied | | | right lower lung nodule. Cardiomediastinal silhouette and pulmonary | | | vasculature are unremarkable. Bones and soft tissues are | | | unremarkable. IMPRESSION - Interval placement of a right-sided | | | chest tube with reexpansion of the right lung and | | | complete/essentially complete resolution of the right-sided | | | pneumothorax. Dictated and Signed by: Chai Nguyen MD | | | Electronically signed: 11/04/2016 6:04 PM | | + + + + + | Procedure Note | + + | Christopher, Rad Results In - 11/04/2016 6:07 PM PST XR CHEST AP PORTABLE 11/04/2016 5:35 PM | | | | HISTORY: right chest tube placement- pneumothorax. | | | | COMPARISON: 11/04/2016 | | | | Findings: | | There is an interval placement of a right-sided chest tube with resolution of | | the previously described right pneumothorax. There is improved aeration of the | | right lung. The left lung remains clear. Minimal opacity in the right lung base | | likely is related to recently biopsied right lower lung nodule. | | Cardiomediastinal silhouette and pulmonary vasculature are unremarkable. Bones | | and soft tissues are unremarkable. | | | | IMPRESSION - | | Interval placement of a right-sided chest tube with reexpansion of the right | | lung and complete/essentially complete resolution of the right-sided | | pneumothorax. | | | | Dictated and Signed by: Chai Nguyen MD | | Electronically signed: 11/04/2016 6:04 PM | + + + +---------+ + + | Performing | Address | City/State/Zipcode | Phone Number | | Organization | | | | + +---------+ + + | [facility] | | | | + +---------+ + + XR Chest AP Portable (11/04/2016 4:10 PM PST) + + | Specimen | + + | | + + + + + | Narrative | Performed At | + + + | SINGLE AP CHEST 11/04/2016 4:10 PM CLINICAL HISTORY: Follow-up | [facility] | | right lung biopsy and right sided pneumothorax COMPARISON: Chest | | | radiographs and images from CT guided right lung core biopsy earlier | | | in the day FINDINGS: A single upright AP chest is again provided. | | | There is a persistent right pneumothorax, which continues to | | | increase in volume and now occupies approximately 30% of the volume | | | of the hemithorax. Persistent hazy reticular opacity at the right | | | base again favors atelectasis. A faint region of opacity in the | | | right basilar lung field likely reflects the recently biopsied right | | | lower lobe nodule. The left lung remains radiographically clear. | | | No pleural effusion is visible. The cardiomediastinal silhouette | | | and pulmonary vasculature are unremarkable, without midline shift. | | | Bones and soft tissues are unremarkable. IMPRESSION - 1. | | | PROGRESSIVE ENLARGEMENT OF THE RIGHT PNEUMOTHORAX, NOW OCCUPYING | | | APPROXIMATELY 30% OF THE VOLUME OF THE HEMITHORAX. Dictated and | | | Signed by: Hugo Godfrey MD Electronically signed: 11/04/2016 4:37 PM | | | | | + + + + + | Procedure Note | + + | Christopher, Rad Results In - 11/04/2016 4:40 PM PST SINGLE AP CHEST 11/04/2016 4:10 PM | | | | CLINICAL HISTORY: Follow-up right lung biopsy and right sided pneumothorax | | | | COMPARISON: Chest radiographs and images from CT guided right lung core biopsy | | earlier in the day | | | | FINDINGS: A single upright AP chest is again provided. There is a persistent | | right pneumothorax, which continues to increase in volume and now occupies | | approximately 30% of the volume of the hemithorax. Persistent hazy reticular | | opacity at the right base again favors atelectasis. A faint region of opacity | | in the right basilar lung field likely reflects the recently biopsied right | | lower lobe nodule. The left lung remains radiographically clear. No pleural | | effusion is visible. The cardiomediastinal silhouette and pulmonary vasculature | | are unremarkable, without midline shift. Bones and soft tissues are | | unremarkable. | | | | IMPRESSION - | | | | 1. PROGRESSIVE ENLARGEMENT OF THE RIGHT PNEUMOTHORAX, NOW OCCUPYING | | APPROXIMATELY 30% OF THE VOLUME OF THE HEMITHORAX. | | | | Dictated and Signed by: Hugo Godfrey MD | | Electronically signed: 11/04/2016 4:37 PM | + + + +---------+ + + | Performing | Address | City/State/Zipcode | Phone Number | | Organization | | | | + +---------+ + + | [facility] | | | | + +---------+ + + Culture, MRSA (11/04/2016 3:44 PM PST) + + + + + + | Component | Value | Ref Range | Performed | Pathologist | | | | | At | Signature | + + + + + + | Culture | Negative for MRSA by | | [facility] | | | | chromogenic agar method | | [facility] | | | | | | [facility] | | | | | | C[facility] - | | | | | | LABORATORY | | + + + + + + + + | Specimen | + + | Respiratory - Both | | anterior nares (body | | structure) | + + + + + + + | Performing | Address | City/State/Zipcode | Phone Number | | Organization | | | | + + + + + | [facility] | [address] | [place] | [phone] | | [facility] | | [address] | | | - LABORATORY | | | | + + + + + XR Chest AP Portable (11/04/2016 1:04 PM PST) + + | Specimen | + + | | + + + + + | Narrative | Performed At | + + + | SINGLE AP CHEST 11/04/2016 1:04 PM CLINICAL HISTORY: F/U | [facility] | | pneumothorax and lung biopsy, chest pain COMPARISON: Chest | | | radiograph and images from CT-guided right lung core biopsy earlier | | | in the day FINDINGS: A single upright AP chest is again | | | provided. There is a persistent small to moderate-sized right | | | pneumothorax, occupying approximately 20-25% of the volume of the | | | hemithorax, and increased in volume from images acquired earlier in | | | the day. Increased hazy reticular opacity at the right base favors | | | atelectasis. A faint region of opacity in the right lower lung field | | | likely reflects the recently biopsied right lower lobe nodule. The | | | left lung remains radiographically clear. No pleural effusion is | | | visible. The cardiomediastinal silhouette and pulmonary vasculature | | | are unremarkable, without midline shift. Bones and soft tissues are | | | unremarkable. IMPRESSION - 1. ENLARGING RIGHT | | | PNEUMOTHORAX AND PROBABLE PROGRESSIVE BASILAR ATELECTASIS. | | | Comment: Given the progression of the patient's pneumothorax and | | | persistent right-sided chest pain which has suboptimally responded to | | | analgesia, percutaneous thoracostomy tube placement will be | | | undertaken. Findings and recommendations were discussed with | | | Alicia as well as Dr. Kolton Angel (to be the admitting provider | | | following chest tube placement) at the time of preliminary | | | interpretation on November 04, 2016 at 1300 hours. Dictated and | | | Signed by: Hugo Godfrey MD Electronically signed: 11/04/2016 1:29 PM | | | | | + + + + + | Procedure Note | + + | Christopher, Rad Results In - 11/04/2016 1:33 PM PST SINGLE AP CHEST 11/04/2016 1:04 PM | | | | CLINICAL HISTORY: F/U pneumothorax and lung biopsy, chest pain | | | | COMPARISON: Chest radiograph and images from CT-guided right lung core biopsy | | earlier in the day | | | | FINDINGS: A single upright AP chest is again provided. There is a persistent | | small to moderate-sized right pneumothorax, occupying approximately 20-25% of | | the volume of the hemithorax, and increased in volume from images acquired | | earlier in the day. Increased hazy reticular opacity at the right base favors | | atelectasis. A faint region of opacity in the right lower lung field likely | | reflects the recently biopsied right lower lobe nodule. The left lung remains | | radiographically clear. No pleural effusion is visible. The cardiomediastinal | | silhouette and pulmonary vasculature are unremarkable, without midline shift. | | Bones and soft tissues are unremarkable. | | | | IMPRESSION - | | | | 1. ENLARGING RIGHT PNEUMOTHORAX AND PROBABLE PROGRESSIVE BASILAR ATELECTASIS. | | | | Comment: Given the progression of the patient's pneumothorax and persistent | | right-sided chest pain which has suboptimally responded to analgesia, | | percutaneous thoracostomy tube placement will be undertaken. Findings and | | recommendations were discussed with Dr. Vargas as well as Dr. Kolton Angel (to | | be the admitting provider following chest tube placement) at the time of | | preliminary interpretation on November 04, 2016 at 1300 hours. | | | | Dictated and Signed by: Hugo Godfrey MD | | Electronically signed: 11/04/2016 1:29 PM | + + + +---------+ + + | Performing | Address | City/State/Zipcode | Phone Number | | Organization | | | | + +---------+ + + | [facility] | | | | + +---------+ + + XR Chest AP Portable (11/04/2016 11:34 AM PST) + + | Specimen | + + | | + + + + + | Narrative | Performed At | + + + | SINGLE AP CHEST 11/04/2016 11:34 AM CLINICAL HISTORY: Chest pain | [facility] | | status post right lung core biopsy -follow-up pneumo COMPARISON: | | | Images from preceding CT guided right lung core biopsy, chest | | | radiographs June 01, chest CT September 23 FINDINGS: A single | | | upright AP chest is provided. There is a relatively small right | | | pneumothorax, occupying approximately 10-15% of the volume of the | | | hemithorax, subjectively increased in volume from postprocedure CT | | | images acquired earlier in the day. Mild hazy reticular opacity at | | | the right base favors atelectasis. A faint focal opacity in the | | | right lower lung field likely reflects the recently biopsied right | | | lower lobe nodule. The left lung is radiographically clear. No | | | pleural effusion is visible. The cardiomediastinal silhouette and | | | pulmonary vasculature are unremarkable, without midline shift. Bones | | | and soft tissues are unremarkable. IMPRESSION - 1. SMALL | | | IATROGENIC RIGHT PNEUMOTHORAX, SUBJECTIVELY LARGER COMPARED WITH CT | | | IMAGES ACQUIRED AT THE TIME OF PERCUTANEOUS CORE BIOPSY EARLIER IN THE | | | DAY. FOLLOW-UP RADIOGRAPHY WILL BE PERFORMED IN APPROXIMATELY ONE | | | HOUR TO EVALUATE FOR STABILITY. Results of the study were | | | discussed with Shannon same day surgery nurse caring for the patient, | | | at the time of preliminary interpretation on November 04, 2016 at 1135 | | | hours. Dictated and Signed by: Hugo Godfrey MD Electronically | | | signed: 11/04/2016 12:01 PM | | + + + + + | Procedure Note | + + | Christopher, Rad Results In - 11/04/2016 12:04 PM PST SINGLE AP CHEST 11/04/2016 11:34 AM | | | | CLINICAL HISTORY: Chest pain status post right lung core biopsy -follow-up | | pneumo | | | | COMPARISON: Images from preceding CT guided right lung core biopsy, chest | | radiographs June 01, chest CT September 23 | | | | FINDINGS: A single upright AP chest is provided. There is a relatively small | | right pneumothorax, occupying approximately 10-15% of the volume of the | | hemithorax, subjectively increased in volume from postprocedure CT images | | acquired earlier in the day. Mild hazy reticular opacity at the right base | | favors atelectasis. A faint focal opacity in the right lower lung field likely | | reflects the recently biopsied right lower lobe nodule. The left lung is | | radiographically clear. No pleural effusion is visible. The cardiomediastinal | | silhouette and pulmonary vasculature are unremarkable, without midline shift. | | Bones and soft tissues are unremarkable. | | | | IMPRESSION - | | | | 1. SMALL IATROGENIC RIGHT PNEUMOTHORAX, SUBJECTIVELY LARGER COMPARED WITH CT | | IMAGES ACQUIRED AT THE TIME OF PERCUTANEOUS CORE BIOPSY EARLIER IN THE DAY. | | FOLLOW-UP RADIOGRAPHY WILL BE PERFORMED IN APPROXIMATELY ONE HOUR TO EVALUATE | | FOR STABILITY. | | | | Results of the study were discussed with Shannon same day surgery nurse caring | | for the patient, at the time of preliminary interpretation on November 04, 2016 at | | 1135 hours. | | | | Dictated and Signed by: Hugo Godfrey MD | | Electronically signed: 11/04/2016 12:01 PM | + + + +---------+ + + | Performing | Address | City/State/Zipcode | Phone Number | | Organization | | | | + +---------+ + + | [facility] | | | | + +---------+ + + CT Guided Biopsy Lung Or Mediastinum (11/04/2016 10:58 AM PST) + + | Specimen | + + | | + + + + + | Narrative | Performed At | + + + | CT-GUIDED PERCUTANEOUS RIGHT LUNG CORE BIOPSY WITH MODERATE SEDATION | [facility] | | 11/04/2016 10:11 AM CLINICAL HISTORY: Thyroid cancer, RLL nodule, | | | avid on PET COMPARISON: Chest CT September 23 and June 02, PET/CT | | | June 17 PROCEDURE: After explaining the potential risks and | | | benefits of the procedure to the patient, including risk of | | | hemorrhage, infection and pneumothorax, verbal and written consent | | | were obtained. With the patient prone on the CT gantry, moderate | | | sedation was administered per institutional protocol. Axial | | | unenhanced CT images were performed through the mid chest, again | | | identifying a small, somewhat spiculated appearing nodule in the | | | posterior lateral right lower lobe. A suitable approach for biopsy | | | was chosen, and the overlying dorsal skin prepped and draped in | | | sterile fashion. 5 cc 1% lidocaine were utilized for local | | | anesthesia with CT guidance. A small skin rajinder was made to | | | accommodate the 17-gauge introducer needle, which was advanced to the | | | margin of the nodule without difficulty utilizing CT guidance, and | | | an intercostal PA approach. Five core biopsies of the nodule were | | | performed through the introducer with an 18-gauge [employer] [place]ince biopsy | | | gun, producing small white tissue cores which were placed in formalin | | | and sent for histologic analysis. The introducer was removed and | | | hemostasis achieved at the puncture site with manual compression. | | | The patient tolerated the procedure well. A trace right | | | pneumothorax developed immediately following removal of the | | | introducer needle, and only slightly enlarged after a short period of | | | observation. The patient was transferred to recovery in stable | | | condition. IMPRESSION - 1. CT-GUIDED PERCUTANEOUS RIGHT LUNG | | | CORE BIOPSY WITH MODERATE SEDATION, DESCRIBED. 2. SMALL, | | | IATROGENIC RIGHT PNEUMOTHORAX. FOLLOW-UP CHEST RADIOGRAPHY WILL BE | | | PERFORMED TO EVALUATE FOR PROGRESSION PRIOR TO DISCHARGE. Dictated | | | and Signed by: Hugo Godfrey MD Electronically signed: 11/04/2016 | | | 11:55 AM | | + + + + + | Procedure Note | + + | Christopher, Rad Results In - 11/04/2016 11:[address]-GUIDED PERCUTANEOUS RIGHT LUNG CORE | | BIOPSY WITH MODERATE SEDATION 11/04/201610:11 AMCLINICAL HISTORY: Thyroid cancer, RLL | | nodule, avid on PETCOMPARISON: Chest CT September 23 and June 02, PET/CT June | | 17PROCEDURE: After explaining the potential risks and benefits of the procedure tothe | | patient, including risk of hemorrhage, infection and pneumothorax, verbaland written | | consent were obtained. With the patient prone on the CT gantry,moderate sedation was | | administered per institutional protocol. Axial unenhancedCT images were performed | | through the mid chest, again identifying a small,somewhat spiculated appearing nodule in | | the posterior lateral right lower lobe. A suitable approach for biopsy was chosen, and | | the overlying dorsal skin preppedand draped in sterile fashion. 5 cc 1% lidocaine were | | utilized for localanesthesia with CT guidance. A small skin rajinder was made to | | accommodate [id number] introducer needle, which was advanced to the margin of the | | nodulewithout difficulty utilizing CT guidance, and an intercostal PA approach. | | Fivecore biopsies of the nodule were performed through the introducer with [id number] | | [employer] [place]ince biopsy gun, producing small white tissue cores which wereplaced in formalin and | | sent for histologic analysis. The introducer was removedand hemostasis achieved at the | | puncture site with manual compression. Thepatient tolerated the procedure well. A | | trace right pneumothorax developedimmediately following removal of the introducer | | needle, and only slightlyenlarged after a short period of observation. The patient was | | transferred torecovery in stable condition.IMPRESSION -1. CT-GUIDED PERCUTANEOUS RIGHT | | LUNG CORE BIOPSY WITH MODERATE SEDATION, ASDESCRIBED.2. SMALL, IATROGENIC RIGHT | | PNEUMOTHORAX. FOLLOW-UP CHEST RADIOGRAPHY WILL BEPERFORMED TO EVALUATE FOR PROGRESSION | | PRIOR TO DISCHARGE.Dictated and Signed by: Hugo Godfrey MD Electronically signed: | | 11/04/2016 11:55 AM | |enlarged after a short period of observation. The patient was transferred to | |recovery in stable condition. | | | |IMPRESSION - | |1. CT-GUIDED PERCUTANEOUS RIGHT LUNG CORE BIOPSY WITH MODERATE SEDATION, | |DESCRIBED. | | | |2. SMALL, IATROGENIC RIGHT PNEUMOTHORAX. FOLLOW-UP CHEST RADIOGRAPHY WILL BE | |PERFORMED TO EVALUATE FOR PROGRESSION PRIOR TO DISCHARGE. | | | |Dictated and Signed by: Hugo Godfrey MD | | Electronically signed: 11/04/2016 11:55 AM | + + + +---------+ + + | Performing | Address | City/State/Zipcode | Phone Number | | Organization | | | | + +---------+ + + | [facility] | | | | + +---------+ + + Extra Green Top Tube (11/04/2016 9:33 AM PST) + +-------+ + + + | Component | Value | Ref Range | Performed | Pathologist | | | | | At | Signature | + +-------+ + + + | Extra Green | Done | | [facility] | | [address] | [place] | [phone] | | [facility] | | [address] | | | - LABORATORY | | | | + + + + + Protime INR (11/04/2016 9:11 AM PST) + + + + + + | Component | Value | Ref Range | Performed | Pathologist | | | | | At | Signature | + + + + + + | Prothrombin | 13.0 | 11.3 - 13.9 | [facility] | | | Time | | seconds | [facility] | | | | | | MEDICAL | | | | | | CENTER - | | | | | | LABORATORY | | + + + + + + | INR | 0.96Comment: Usual Oral | 0.90 - 1.10 | [facility] | | | | Anticoagulation Range: | | [facility] | | | | 2.0 - 3.0High | | MEDICAL | | | | Level Oral | | CENTER - | | | | Anticoagulation Range: | | LABORATORY | | | | 2.5 - 3.5 | | | | + + + + + + + + | Specimen | + + | Blood | + + + + + + + | Performing | Address | City/State/Zipcode | Phone Number | | Organization | | | | + + + + + | [facility] | [address] | [place] | [phone] | | [facility] | | [address] | | | - LABORATORY | | | | + + + + + CBC no Differential (11/04/2016 9:11 AM PST) + + + + + + | Component | Value | Ref Range | Performed | Pathologist | | | | | At | Signature | + + + + + + | White Blood | 12.1 (H) | 4.0 - 11.0 K/uL | [facility] | | | Cells | | | [facility] | | | | | | MEDICAL | | | | | | CENTER - | | | | | | LABORATORY | | + + + + + + | Red Blood | 4.81 | 3.70 - 5.20 | [facility] | | | Cells | | M/uL | [facility] | | | | | | MEDICAL | | | | | | CENTER - | | | | | | LABORATORY | | + + + + + + | Hemoglobin | 14.6 | 11.5 - 16.0 | [facility] | | | | | g/dL | [facility] | | | | | | MEDICAL | | | | | | CENTER - | | | | | | LABORATORY | | + + + + + + | Hematocrit | 43.7 | 34.0 - 47.0 % | [facility] | | | | | | [facility] | | | | | | MEDICAL | | | | | | CENTER - | | | | | | LABORATORY | | + + + + + + | MCV | 90.8 | 83.0 - 101.0 fL | [facility] | | | | | | [facility] | | | | | | MEDICAL | | | | | | CENTER - | | | | | | LABORATORY | | + + + + + + | MCH | 30.4 | 28.0 - 35.0 pg | [facility] | | | | | | [facility] | | | | | | MEDICAL | | | | | | CENTER - | | | | | | LABORATORY | | + + + + + + | MCHC | 33.4 | 32.0 - 36.0 | [facility] | [...] + + + + | Platelet | 270 | 140 - 440 K/uL | [facility] | | | Count | | | [facility] | | | | | | MEDICAL | | | | | | CENTER - | | | | | | LABORATORY | | + + + + + + | MPV | 9.1 | fL | [facility] | | | | | | [facility] [address] | [place] | [phone] | | [facility] | | [address] | | | - LABORATORY | | | | + + + + + Surgical Pathology Exam (11/04/2016 12:00 AM PST) + + | Specimen | + + | | + + + + + | Narrative | Performed At | + + + | THIS IS AN ADDENDUM REPORT SPECIMEN(S): A LUNG, RIGHT | [facility] | | UPPER LOBE SPECIMEN SOURCE: A. LUNG, RIGHT UPPER LOBE | [facility] | | CLINICAL HISTORY: RLL nodule, avid on PET. R91.1 (solitary pulmonary | | | nodule) FINAL PATHOLOGIC DIAGNOSIS: Lung, right upper lobe, image | | | guided needle core biopsy: - Pulmonary adenocarcinoma, well to | | | moderately differentiated. (See Comment) COMMENT: Histologic | | | sections show multiple core biopsies showing an infiltrative gland | | | forming neoplasm. By immunohistochemistry, lesional cells show | | | positive staining for CK7, TTF-1, and Napsin A. Lesional cells show | | | negative staining for CK5 and P63. These findings are consistent with | | | a diagnosis of well to moderately differentiated pulmonary | | | adenocarcinoma. All staining controls show appropriate reactivity. | | | These findings were phoned to Dr. Vargas on 11/05/16. As part | | | of [facility]' Quality Improvement Program, this case was | | | reviewed by another member of our pathology staff. | | | CLR:[facility]:C1NR GROSS DESCRIPTION: The specimen is received in | | | formalin in a container labeled "Smitha Rider, Alfonso lung". Received are | | | four bop-[id number] needle core fragments ranging in length from | | | 0.3-0.6 cm by average diameter of 0.15 cm, entirely submitted in | | | cassette (A1). CLR:[facility] MICROSCOPIC EXAMINATION: Histologic | | | sections of all submitted blocks are examined by light microscopy. | | | These findings, together with the gross examination, support the | | | pathologic diagnosis. ADDITIONAL NOTES: Immunohistochemical | | | studies were performed on this case with the appropriate negative and | | | positive controls that react as expected. This test was developed | | | and its performance characteristics determined by [facility]. | | | It has not been cleared or approved by the U.S. Food and Drug | | | Administration. The FDA has determined that such clearance or | | | approval is not necessary. This test is used for clinical purposes. | | | It should not be regarded as investigational or for research. | | | [facility] is certified under the Clinical Laboratory | | | Improvement Amendments of 1988 (CLIA) as qualified to perform high | | | complexity clinical laboratory testing PERFORMING LABORATORY: | | | Tissue processing and slide preparation were performed by [facility] | | | [facility], [address], [place] [address] | | | (Diesel Maintenance Electrician: Eliezer Helm M.D.; CLIA#: [id number]). | | | Professional interpretation was performed by [facility], [address], [place] [address] (Diesel Maintenance Electrician: Eliezer | | | Russ Helm; CLIA#: [id number]). Review for send out and | | | technical processing was performed by [facility] [place] | | | [facility], [address] [place] [address] | | | [id number] (Diesel Maintenance Electrician: Eliezer Helm M.D.; CLIA#: | | | [id number]). REASON FOR ADDENDUM: To add request for molecular | | | testing. ADDENDUM COMMENT: At the request of Milton Salazar MD | | | archived slide(s) and block(s) for case [id number] are retrieved on | | | Smitha Rider and are reviewed by a pathologist to assess | | | adequacy for PD-L1 (Keytruda) testing. Block A1 is sent to | | | Definition [address] [place], [place]. JVR:[facility] PERFORMING | | | LABORATORY: The Technical Component Processing and Analysis of this | | | test was completed at [facility], [address] [place] [address] | | | [place], [place] / [address] / [phone] / CLIA #[id number] / Medical | | | Director: Dr. Doc Chakraborty. The Professional Component of this | | | test was completed at [facility], [address] [place] [address], [address], | | | [place], [place] / [address] / [phone] / CLIA # [id number] / Medical | | | Director: Dr. Mita Salgado, (Accession / CaseNo: [id number] / | | | [id number]). A detailed copy of the report is kept on file. | | | REASON FOR ADDENDUM: To add results of additional testing. | | | PD-L1 22C3 FDA (KEYTRUDA) PD-L1 22C3 FDA (KEYTRUDA(r)): NO | | | EXPRESSION Tumor Proportion Score: 0% Intensity: Absent | | | Diagnostician: Cristian Burton MD Pathologist Diagnostician: | | | Eliezer Helm MD Pathologist Electronically Signed 11/18/2016 | | | | | + + + + +---------+ + + | Performing | Address | City/State/Zipcode | Phone Number | | Organization | | | | + +---------+ + + | [facility] | | | | | [facility] | | | | + +---------+ + + documented in this encounter Visit Diagnoses Not on filedocumented in this encounter Admitting Diagnoses + + | Diagnosis | + + | Pneumothorax after biopsy Iatrogenic pneumothorax | + + documented in this encounter
--- OUTSIDE RECORDS SUMMARY | ~2020-07-17 | XMS | Encounter Summary ---
Demographics + + + | Address | [address] | | | [place] [address] | + + + | Home Phone | | + + + | Preferred Language | Unknown | + + + | Marital Status | Single | + + + | Adventist Affiliation | Unknown | + + + | Race | White | + + + | Ethnic Group | Not or | + + + Author + + + | Author | [facility] | | | and [place] | + + + | Organization | [facility] | | [...] Providers + +------+ + | Care Senior Application Programmer Name | Role | Phone | + [...] | MD [address] | | | | | Procedures | [address] | [place], | | | | | [place] Thyroid | [place], | [place] | | | | | Cancer | [place] [address] | [address] | | | | | Metastatic | Phone: | Phone: | | | | | Whole Body | [phone] | [phone] | | | | | | Fax: | Fax: | | | | | | [phone] | [phone] | +--------+--------+ + + + + Reason [...] | | | | Thyroid | Susie M, | Medicine | | | | | cancer (HCC) | [address] | | | | | Procedures | [address] | [place], | | | | | [place] Thyroid | [place], | [place] | | | | | Cancer | [place] [address] | [address] | | | | | Metastatic | Phone: | Phone: | | | | | Whole Body | [phone] | [phone] | | | | | | Fax: | Fax: | | | | | | [phone] | [phone] | +--------+--------+ + + + + Encounter Details +--------+ + + + + | Date | Type | Department | Care Team | Description | +--------+ + + + + | 10/21/ | Hospital | [facility] | Susie Montemayor | Thyroid cancer (HCC) | | 2016 | Encounter | [facility] | MD Jared [address] | | | | | MEDICINE [address] [place], [place] | | | | | [place], | [address] | | | | | [place] [address] | | | | | | [phone] | | | +--------+ + + + [...] [place] | | | | | | [id number] | | | | | | | | +--------+ + + + + documented as of this encounter Procedures + +--------+ + + + | Procedure Name | Priori | Date/Time | Associated Diagnosis | Comments | | | ty | | | | + +--------+ + + + | [place] THYROID CANCER | Routin | 10/21/2016 | Thyroid cancer | Results for this | | METASTATIC SCAN | e | 9:31 AM | (HCC) | procedure are in the | | WHOLE BODY | | PST | | results section. | + +--------+ + + + documented in this encounter Results [place] Thyroid Cancer Metastatic [...]
--- OUTSIDE RECORDS SUMMARY | ~2020-07-17 | XMS | Encounter Summary ---
Demographics + + + | Address | [address] | | | [place] [address] | + + + | Home Phone [...] Team Providers + +------+ + | Care Boilermaker Loftsman Name | Role | Phone | + +------+ + | Zuleyka Martínez | PCP | | + +------+ + Encounter Details +--------+ + + + + | Date | Type | Department | Care Team | Description | +--------+ + + + + | 03/08/ | Imaging | [facility] | Provider, | | | 2019 | Exam | MED [facility] EXTERNAL | MD [address] | | | | | IMAGING [address] | Aj | | | | | [address] [place] | [place] [address] | | | | | [place] [address] | | | | | | [phone] | | | +--------+ + + + [...] [address] | | | | | | [place], [place] | | | | | | [address] | | | | | | | | +--------+ + + + + documented as of this encounter Procedures + +--------+ + + + | Procedure Name | Priori | Date/Time | Associated Diagnosis | Comments | | | ty | | | | + +--------+ + + + | PET CT SKULL BASE TO | Routin | 02/06/2020 | | Results for this | | MID THIGH | e | 12:00 AM | | procedure are in the | | | | PDT | | results section. | + +--------+ + + + documented in this encounter Results PET CT Skull Base To Mid Thigh (02/06/2020 12:00 AM PDT) + + | Specimen | [...]
--- OUTSIDE RECORDS SUMMARY | ~2020-07-17 | XMS | Encounter Summary ---
Demographics + + + | Address | [address] | | | [place] [address] | + + + | Home Phone [...] Team Providers + +------+ + | Care Bumper And Painter Name | Role | Phone | + +------+ + | Zuleyka Martínez | PCP | | + +------+ + Encounter Details +--------+ + + + + | Date | Type | Department | Care Team | Description | +--------+ + + + + | 09/11/ | Documentati | [facility] | Olena Mccurdy | | | 2019 | on | MED CNT ONCOLOGY | A, OT | | | | | THERAPY [address] | | | | | | [place], | | | | | | [place] [address] | | | | | | [phone] | | | +--------+ + + + [...] documented as of this encounter Progress Notes Olena Mccurdy OT - 09/11/2019 4[facility] [address] [facility] [address] Oncology Rehab Screening Date: 09/11/2019 Patient Information Patient Name: Olena Rider Date of : 1960 Age: 59 y.o. Patient was seen for oncology rehab screening due to new patient consult. Patient currently being treated for R breast and treatment regimen includes radiation. Of note, patient also has hx of lung cancer treatment. Introduced self to patient and advised her of role and av ailability of oncology rehab. Patient is s/p R breast surgery in [place] and has now [facility] radiation treatment. She reports no swelling or significant pain. 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 Discussed with patient importance of maintaining tissue pliability during and after radiation tx, especially around scar tissue sites; discussed use of daily stretching exs as remedy for this. Patient expresses good understanding and also has experience with manageme nt of scar tissue w/ hx of hip surgery scar. Encouraged her to contact onc rehab therapist at any time if she should have any questions or concerns in the future. Patient to contact therapist or doctor if change in status. Electronically signed by: Olena Mccurdy OT, 09/11/2019 4:25 PM Patient Name: Olena Rider/: 1960/ documented in this encounter Plan of Treatment +--------+ + + + + | Date | Type | Specialty | Care Team | Description | +--------+ + + + + | 11/22/ | Appointment | Radiation Oncology | Susie Montemayor | | | 2020 | | | MD [address] [place] [address] | | | | | | [place] | | | | | | [address] | | | | | | | | +--------+ + + + + documented as of this encounter Visit Diagnoses Not on filedocumented in this encounter"
--- OUTSIDE RECORDS SUMMARY | ~2020-07-17 | XMS | Encounter Summary ---
Demographics + + + | Address | [address] | | | [place] [address] | + + + | Home Phone [...] Author + + + | Author | [facility] | | | and [place] | + + + | Organization | [facility] | | [...] Providers + +------+ + | Care Chief Engineer Name | Role | Phone | [...] + + + | Closed | | Infusion | Diagnoses | | [facility] | | | | Therapy | Malignant | [place], | Infusion [address] | | | | | neoplasm of | [place] | [address] [place] | | | | | unspecified | MD Bebeto | [place], | | | | | part of | [address] | [place] [address] | | | | | right | [place] | Phone: | | | | | bronchus or | [place], [place] | [phone] | | | | | lung (HCC) | [address] | Fax: | | | | | Procedures | Phone: | [phone] | | | | | NE VITAMIN | [phone] | | | | | | B12 | Fax: | | | | | | INJECTION, | [phone] | | | | | | [address] | | | | | | | ONDANSETRON | | | | | | | HCL | | | | | | | INJECTION, 1 | | | | | | | MG NE | | | | | | | DEXAMETHASON | | | | | | | E SODIUM | | | | | | | PHOS, 1 MG | | | | | | | NE | | | | | | | FOSAPREPITAN | | | | | | | T INJECTION, | | | | | | | 1 MG NE IV | | | | | | | INFUSION, | | | | | | | HYDRATION, | | | | | | | 31-60 MIN | | | | | | | NE IV | | | | | | | INFUSION, | | | | | | | HYDRATION, | | | | | | | EA ADD HOUR | | | | | | | NE | | | | | | | PEMETREXED | | | | | | | INJECTION, | | | | | | | 10 MG NE | | | | | | | CISPLATIN 10 | | | | | | | MG | | | | | | | INJECTION | | | | | | | NE | | | | | | | DIPHENHYDRAM | | | | | | | INE HCL | | | | | | | INJECTIO, 50 | | | | | | | MG NE | | | | | | | ALBUTEROL | | | | | | | COMP CON, 1 | | | | | | | MG NE | | | | | | | ALBUTEROL | | | | | | | NON-COMP | | | | | | | CON, 1 MG | | | | | | | NE | | | | | | | METHYLPREDNI | | | | | | | SOLONE | | | | | | | INJECTION, | | | | | | | 125 MG NE | | | | | | | INJECTION, | | | | | | | FAMOTIDINE, | | | | | | | 20 MG NE | | | | | | | NORMAL | | | | | | | SALINE | | | | | | | SOLUTION | | | | | | | INFUS, 500 | | | | | | | ML NE | | | | | | | NORMAL | | | | | | | SALINE | | | | | | | SOLUTION | | | | | | | INFUS, 250 | | | | | | | ML NE | | | | | | | STERILE | | | | | | | WATER/SALINE | | | | | | | , 10 ML NE | | | | | | | CHEMOTHER, | | | | | | | IV PUSH,EA | | | | | | | ADD DRUG NE | | | | | | | CHEMOTHER, | | | | | | | IV INFUSION, | | | | | | | 1 HR NE | | | | | | | CHEMOTHER, | | | | | | | IV INFUSION, | | | | | | | EA HR NE | | | | | | | CHEMOTHER,NO | | | | | | | N-HORMONE | | | | | | | ANTI-NEOPL, | | | | | | | SUB-Q/IM NE | | | | | | | CHEMOTHER | | | | | | | HORMON | | | | | | | ANTINEOPL | | | | | | | SUB-Q/IM NE | | | | | | | | | | | | | | PALONOSETRON | | | | | | | HCL, 25 MCG | | | | | | | NE | | | | | | | CARBOPLATIN | | | | | | | INJECTION, | | | | | | | 50 MG | | | +--------+--------+ + + + + Encounter Details +--------+ + + + + | Date | Type | Department | Care Team | Description | +--------+ + + + + | 04/23/ | Hospital | [facility] | Milton Salazar | 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 [address] | cancer of right lung | | | | INFUSION [address] [place] | (HCC) | | | | [place], | [place] [address] | | | | | [place] [address] | [phone] | | | | | [phone] | | | +--------+ + + + [...] | 1 | 04/12/20 | | | (PATRICKOR-CON) 10 MEQ | mouth Daily. | tablet [...] [place] | | | | | | [place], [place] | | | | | | [address] | | | | | | | | +--------+ + + + + documented as of this encounter Visit Diagnoses + + | Diagnosis | + + | Non-small cell cancer of right lung (HCC) | + + documented in this encounter Administered Medications + +---------+ + +-------+------+ | Medication Order | MAR | Action | Dose | Rate | Site | | | Action | Date | | | | + +---------+ + +-------+------+ | CARBOplatin (PARAPLATIN) 632.4 | New Bag | 04/23/20 | 632.4 mg | 500 | | | mg in sodium chloride 0.9% 436.76 | | 17 11:32 | | mL/hr | | | mL chemo infusion 632.4 mg | | AM PDT | | | | | (Target AUC = 6), Intravenous, | | | | | | | Administer over 60 Minutes, ONCE, | | | | | | | 04/23/17 at 1100, For 1 dose, | | | | | | | Chemotherapy: Use appropriate | | | | | | | handling precautions., | | | | | | + +---------+ + +-------+------+ +---+---+ | | | +---+---+ + +---------+ +--------+-------+---+ | fosaprepitant (EMEND) 150 mg in | New Bag | 04/23/20 | 150 mg | 500 | | | sodium chloride 0.9% 250 mL IVPB | | 17 10:45 | | mL/hr | | | 150 mg, Intravenous, Administer | | AM PDT | | | | | over 30 Minutes, ONCE, Fri | | | | | | | 04/23/17 at 1015, For 1 dose, Do | | | | | | | not shake bag., | | | | | | + +---------+ +--------+-------+---+ +---+---+ | | | +---+---+ + +---------+ +---+--------+---+ | palonosetron (ALOXI) 0.25 mg, | New Bag | 04/23/20 | | 209.3 | | | dexamethasone (DECADRON) 8 mg in | | 17 10:24 | | mL/hr | | | sodium chloride 0.9% 50 mL IVPB | | AM PDT | | | | | Intravenous, Administer over 16 | | | | | | | Minutes, ONCE, Wed04/23/17 at | | | | | | | 1030, For 1 dose | | | | | | + +---------+ +---+--------+---+ +---+---+ | | | +---+---+ + +-------+ + +-------+---+ | PEMEtrexed (ALIMTA) 1,000 mg in | Given | 04/23/20 | 1,000 mg | 600 | | | sodium chloride 0.9% 100 mL | | 17 11:19 | | mL/hr | | | chemo infusion 1,000 mg, | | AM PDT | | | | | Intravenous, Administer over 10 | | | | | | | Minutes, ONCE, Wed04/23/17 at | | | | | | | 1045, For 1 dose, 500 mg/m2= 1025 | | | | | | | mg; rounded to 1000 mg per | | | | | | | rounding protocol Chemotherapy: | | | | | | | Use appropriate handling | | | | | | | precautions., | | | | | | + +-------+ + +-------+---+ +---+---+ | | | +---+---+ documented in this encounter"
--- OUTSIDE RECORDS SUMMARY | ~2020-07-17 | XMS | Encounter Summary ---
Demographics + + + | Address | [address] | | | [place] [address] | + + + | Home Phone [...] Author + + + | Author | [facility] | | | and [place] | + + + | Organization | [facility] | | | [...] Team Providers + +------+ + | Care Stick Roller Name | Role | Phone | + [...] + + | 11/04/ | Surgery | [facility] | Hugo Godfrey MD | DI: CT GUIDED CHEST | | 2017 | | MED CTR IR INTRA OP | [address] | TUBE PLACEMENT FOR | | | | [address] | [place] | PNEUMOTHORAX | | | | [place] | [address] | | | | | [address] | [phone] | | | | | [phone] | | | +--------+---------+ + + + [...] + + + | Blood Pressure | 128/88 | 11/04/2016 3:00 PM | | | | | PST | | + + + + + | Pulse | 72 | 11/04/2016 3:00 PM | | | | | PST | | + + + + + | Temperature | 36.7 C (98.1 F) | 11/04/2016 9:00 AM | | | | | PST | | + + + + + | Respiratory Rate | 20 | 11/04/2016 3:00 PM | | | | | PST | | + + + + + | Oxygen Saturation | 97% | 11/04/2016 3:00 PM | | | | | PST [...] might be different fro m the original. [place] HOSPITALIST DISCHARGE SUMMARY Pt. Name/Age/: Smitha [...] DVT Prophylaxis SCD's while in bed (jaspreet jacksonyaddmaster tdnorefesh nownorefresh) (jaspreet sky) Plan Await surgeon [...] signed by: Tien Angel MD, 11/06/2016 9:36 [facility] Reference. This is NOT part of the [...] is improved today with resolution of symptoms Worse with recurrence of symptoms requiring further testing Portions of this chart may have been created with CrowdChat voice recognition software. Occasi onal wrong-word or [...] sent through Care Everywhere.PNEUMOTHORAX (C OLLAPSED LUNG) (JAPANESE)documented in this encounter Medications at Time of [...] might be diff erent from the original. [place] General Surgery Team Hospital Day: 3 [...] Intake/Output Summary (Last 24 hours) at 11/06/16 0858 Last data filed at 11/06/16 0300 Gross [...] by: Del Dsouza MD, 11/06/2016 8:58 [facility] Kerwin Jasso MD - 11/06/2016 7:51 AM PSTFormatting of this note might be different from the hector saavedra. [place] HOSPITALIST PROGRESS NOTE Patient: Smitha Rider : 1960: Age: 56 y.o. MedRec: [id number] PCP: Zuleyka Martínez Admission date: 11/04/2016 Hospital [...] PRN Tien Angel MD 0.5 mg at 170 calcium carbonate (TUMS) chewable tablet 1,000 mg [...] tablet 150 mcg 150 mcg Oral QAM Tien herr MD 150 mcg at 11/06/16 [...] PRN Tien Angel MD 10 mg at 2047 Current Infusions: Objective Data Hematology and anemia Recent Labs Lab 11/04/16 0911 WBC 12.1* HGB 14.6 HCT 43.7 PLT 270 Recent Labs Lab 11/04/16 0911 PROTIME 13.0 INR 0.96 No results for input(s): IRON, TIBC, PCTSAT, FERRITIN, TSH, [id number], FOLATE in the last 168 hours. Inflammatory [...] ABG No results for input(s): PHART, PO2ART, ORL4BGJ, YKQ3JVS, BEART, D4LEGGPK in the last 168 h ours. No results for input(s): SPECSOURCE, PHPOCB, PCO2, PO2, HCO3, TCO2, BEART, SXGR5BKU in the last 168 hours. Drug of [...] Procedure Component Value Units Date/Time Culture, MRSA [[id number]] Collected: 11/04/16 1549 Order Status: Completed Lab Status: Final result [...] of this study were reported by the [facility] [place] radiologist on November 05, 2016 at 1829 [...] room air at flow rate 2L/min (dot meyvent) Subjective CC chest hurts (chest tube) Admit [...] (dot meyaddendum tdnorefesh nownorefresh) (dot meyvent) Plan Await surgeon Addendum (11/06/2016 9:24) Add to assessmment and home today will do just a few narcotics for post CT pain (dot meyaddendum tdnorefesh nownorefresh) (dot meytime meycritical meysign) Tien Angel MD 11/06/2016 7:51 [facility] Reference. This is NOT part of the [...] this chart may have been created with CrowdChat voice recognition software. Occasi onal wrong-word or sound-alike substitutions may have occurred due to the inherent cervantes itations of voice recognition software. Please read the chart carefully and recognize, using context, where these substitutions have occurred Del Montoya MD - 11/05/2016 6:31 PM PSTFormatting of this note might be different from the hector jackson [place] General Surgery Team Hospital Day: 2 [...] by: Del Dsouza MD, 11/05/2016 18:32 [facility] Kerwin Jasso MD - 11/05/2016 6:53 AM PSTFormatting of this note might be different from the hector jackson [facility] [place] HOSPITALIST PROGRESS NOTE Patient: Smitha Rider : 1960: Age: 56 y.o. MedRec: [id number] PCP: Zuleyka Martínez Admission date: 11/04/2016 Hospital [...] for input(s): IRON, TIBC, PCTSAT, FERRITIN, TSH, [id number], FOLATE in the last 168 hours. Inflammatory [...] ABG No results for input(s): PHART, PO2ART, YAW1ZLR, TRK0IOF, BEART, D2EAQYKE in the last 168 h ours. No results for input(s): SPECSOURCE, PHPOCB, PCO2, PO2, HCO3, TCO2, BEART, NSBO7UBB in the last 168 hours. Drug of [...] Procedure Component Value Units Date/Time Culture, MRSA [[id number]] Collected: 11/04/16 1544 Order Status: Sent Lab Status: In process Updated: 11/04/16 155 Specimen Information: Respiratory from Nares Radiology results [...] 1135 hours. Dictated and Signed by: MD Analilia [facility] signed: 11/04/2016 12:[address] Guided Biopsy [...] room air at flow rate 2L/min (dot meyvent) Subjective CC chest hurts (chest tube) Admit [...] meycritical meysign) Tien Angel MD 11/05/2016 6:53 [facility] Reference. This is NOT part of the [...] this chart may have been created with CrowdChat voice recognition software. Occasi onal wrong-word or sound-alike substitutions may have occurred due to the inherent cervantes itations of voice recognition software. Please read the chart carefully and recognize, using context, where these substitutions have occurred documented in this en counter H&P Notes Tien Angel MD - 11/04/2016 2:34 PM PSTFormatting of this note might be different fro m the original. [place] HOSPITALIST HISTORY & PHYSICAL Patient: Smitha Rider : 1960: Age: 56 y.o. MedRec: [id number] PCP: Zuleyka Martínez Admission date: 11/04/2016 Hospital day #: Physician author: Tien Angel MD Today: 11/04/2016 CHIEF COMPLAINT: Chest pain due to pneumothorax caused by right lung nodule biopsy Dr Godfrey HISTORY OF PRESENT ILLNESS: This is a 56 y.o. 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 (carolotearun) HOME MEDICATIONS: Current Discharge Medication List CONTINUE [...] every 6 hours as needed for Pain. 017 Historical Provider, zolpidem (AMBIEN) 10 mg [...] for input(s): IRON, TIBC, PCTSAT, FERRITIN, TSH, [id number], FOLATE in the last 168 hours. Inflammatory [...] ABG No results for input(s): PHART, PO2ART, VPS4ZOW, TSZ0NJR, BEART, D2FDQYMP in the last 168 h ours. No results for input(s): SPECSOURCE, PHPOCB, PCO2, PO2, HCO3, TCO2, BEART, WFQN5ANI in the last 168 hours. Drug of [...] 1135 hours. Dictated and Signed by: MD Analilia Figueroai tawnya signed: 11/04/2016 12:[address] Guided [...] (dot meyaddendum tdnorefesh nownorefresh) (dot meytime meycritical) [facility] Documentation I expect this patient will be hospitalized for less than 2-midnights and expect the post-ho spital plan to be discharge to home or to an adult foster home. Electronically signed by: Tien Angel MD 11/04/2016 14:34 [facility] (meyaddendum tdnorefesh nownorefresh) Portions of this chart may have been created with CrowdChat voice recognition software. Occasi onal wrong-word or sound-alike substitutions may have occurred due to the inherent cervantes itations of voice recognition software. Please read the chart carefully and recognize, using context, where these substitutions have occurred RYNHugo zee MD - 0 11/04/2016 10:02 AM [...] signed by: Hugo Godfrey MD, 11/04/2016 10:02 [facility] at 2016 10:19 AM Susie Guerrero MD - 10/27/2016 12:00 AM [facility] Radiation Oncology Follow-up Note PATIENT: Smitha Rider MR#: [id number] :1960 DOS:10/27/2016 ICD/Diagnosis: C73 - Malignant neoplasm [...] was reviewed with Radio logy here at [facility] and it was felt that [...] t o Dr. Coles, endocrinology to establish retirement follow-up. Thank you for allowing me to participate in the care of Smitha Rider. If you should have any questions regarding this evaluation, please do not hesitate to contact me. Susie Vargas M.D. Radiation Oncologist Department of Radiation Oncology [facility] Electronically signed by Susie Walker M.D CC: Doris Stanford M.D. This note was transcribed using CrowdChat speech recognition software. As a result, there ma y be unintended for medical and/or spelling errors. Every attempt is made to correct dicta tion. If there are any questions or errors please contact our office. CSN: [id number] signed by Susie Walker MD at 11/02/2016 11:55 AM PSTd ocumented in this encounter Consult Notes Del Dsouza MD - 11/04/2016 6:01 PM PST [address] [address] CONSULTATION DEL DSOUZA MD Patient: SMITHA RIDER Admitting: HUGO GODFREY MR #: [id number] LOC: PT TYPE: Adm Date: 11/04/2016 : [...] underwent total thyroidectomy for thyroid malignancy. Sh e is unsure of the stage, but states [...] at this time. She is in the [place], [place] area and is here with a [...] 11/04/2016 18:01:37 Transcribed on 11/04/2016 18:23:[address] [facility] job# [id number] Confirmation #: [id number] cc: ZULEYKA MARTÍNEZ CRNPElectronically signed by Del [...] Assess pain level frequently and medicate per drMaximiliano order Assess chest tube site RESTRAINT-RELATED GOALS: STRATEGIES TO ACHIEVE RESTRAINT GOALS: Outcome: Adequate for Discharge Date Met: 11/06/16 Goal Evaluation: Dc instructions given. Surgeon in and removed chest tube. Pt rates her p ain at 3/10. Denies any other complaints has no further questions after instructions given a nd is ready to go home. lan of Tirso messer, Ursula Saavedra RN - 11/06/2016 6:26 AM PSTPt has [...] plans. She lives in a home in [place] on the main floor. There are two steps to enter the house. Smitha lives on the main level, Brigitte lives in the upstairs and Jennifer lives in the sement. Prior to hospitalization Smitha was independent in her ADL's. 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 Smitha does not own or use any DME. No DME company preference. She declines the need for for SNF and HH. Her PCP is Zuleyka Martínez and she uses [facility] pharmacy or [facility] in [place] . Her daughters will be her ride home when she is stable for discharge. No discharge needs noted. Electronically signed by: Avril Brooks RN 11/05/2016 13:02 lan of Care - Murphy Farfan Chaplain - 11/05/2016 10:25 AM PST Spiritual Care Smitha Rider is a 56 y.o. female who is admitted for Pneumothorax after biopsy [J95.8 11]. Spiritual Evaluation: Not especially rastafari, but did appreciate manager net visit. Spiritual Intervention: Active Listening, pastoral presence. Spiritual Outcomes: Appreciates Plastics Seasoner Operator Visit Spiritual Goals / Follow-up: Will see the patient as requested. If there are any other spiritual care issues that arise, please contact manager net. lan of Care - Ursula Marc RN [...] Dsouza MD - 11/04/2016 6:05 PM PST [address] [address] OPERATIVE REPORT DEL DSOUZA MD Patient: SMITHA RIDER Admitting: HUGO GODFREY MR #: [id number] LOC: PT TYPE: Adm Date: 11/04/2016 : [...] of air was noted. The smallest available, 24-Kyrgyz ch est tube was placed and attached [...] 11/04/2016 18:05:06 Transcribed on 11/04/2016 18:58:[address] [facility] job# [id number] Confirmation #: [id number] cc: ZULEYKA MARTÍNEZ CRNPElectronically signed by Del [...] | | | | [place] | | | | | | [id number] | | | | | | | [...] +--------+ + + + | EXTRA RANJITH TOP | Routin | 11/06/2016 | | Results [...] [address] | [place] | [phone] | | [facility] | | [address] | | | - LABORATORY | | | | + + + + + XR Chest AP Portable (11/06/2016 6:05 AM [facility]) + + | Specimen | + + [...] [facility] | | | | | | [facility] | | | | | | [facility]ICAL | | | | | | CENTER - | | | | | | LABORATORY | | + +-------+ + + + + + | Specimen | + + | Blood | + + + + + + + | Performing | Address | City/State[facility] | Phone Number | | Organization | | | | + + + + + | [facility] | [address] | [place] | [phone] | | [facility] | | [address] | | | - LABORATORY | | [...] | | | | | | [facility] | | | | | | MEDICAL | | | | | | CENTER - | | | | | | LABORATORY | | + + + + + + | BUN | 12 | 7 - 18 mg/dL | [facility] | | | | | | [facility] | | | | | | MEDICAL | | | | | | CENTER - | | | | | | LABORATORY | | + + + + + + | Creatinine | 0.92 | 0.60 - 1.30 | [facility] | | | | | mg/dL | [facility] | | | | | | MEDICAL | | | | | | CENTER - | | | | | | LABORATORY | | + + + + + + | eGFR, | 64Comment: GLOMERULAR | mL/min/1.73m2 | [facility] | | | non- | FILTRATION | | [facility] | | | [place] | RATE,ESTIMATED | | MEDICAL | | | | mL/min/1.09a5Mfzs than | | CENTER - | | [...] [address] | [place] | [phone] | | [facility] | | [address] | | | - LABORATORY | | [...] of this study were reported by the [facility] [place] radiologist on November | | | 2016 [...] of this study were reported by the [facility] [place] radiologist on | | November 05, 2016 [...] | | Lavender | | | [facility] | | | Top Tube | [...] + | [facility] | [address] | [place] | [phone] | | [facility] | | [address] | | | - LABORATORY | | [...] | | | | | mmol/L | [facility] | | | | [...] 99 | 70 - 109 mg/dL | [facility] | | | | | | [facility] | | | | | | MEDICAL | | | | | | CENTER - | | | | | | LABORATORY | | + + + + + + | BUN | 12 | 7 - 18 mg/dL | [facility] | | | | | | [facility] | | | | | | MEDICAL | | | | | | CENTER - | | | | | | LABORATORY | | + + + + + + | Creatinine | 0.87 | 0.60 - 1.30 | [facility] | | | | | mg/dL | [facility] | | | | | | MEDICAL | | | | | | CENTER - | | | | | | LABORATORY | | + + + + + + | eGFR, | 68Comment: GLOMERULAR | mL/min/1.73m2 | [facility] | | | non- | FILTRATION | | . [facility] | | | [place] | RATE,ESTIMATED | | MEDICAL | | | | mL/min/1.16h6Wneb than | | CENTER - | | [...] [address] | [place] | [phone] | | [facility] | | [address] | | | - LABORATORY | | | | + + + + + XR Chest AP Portable (11/05/2016 6:11 AM PST) + + | Specimen | [...] | chromogenic agar method | | [facility] | | | [...] [address] | [place] | [phone] | | [facility] | | [address] | | | - LABORATORY | | [...] the introducer with an 18-gauge Biopince biopsy | | | gun, producing small [...] rajinder was made to | | accommodate nqf91-cfpyj introducer needle, which was advanced to the margin of the | | nodulewithout difficulty utilizing CT guidance, and an intercostal PA approach. | | Fivecore biopsies of the nodule were performed through the introducer with vy56-dsdyk | | Biopince biopsy gun, producing small white tissue cores [...] | Top Tube | | | [facility] | | [...] | + + + + + | [facility] [facility] | [address] | [place] | [phone] | | [facility] | | [address] | | | - LABORATORY | | [...] | | Time | | seconds | [facility] | | | | [...] + | [facility] | [address] | [place] | [phone] | | [facility] | | [address] | | | - LABORATORY | | [...] | | | Cells | | | [facility] | | | | | | [...] | MPV | 9.1 | fL | [facility] | | | [...] [address] | [place] | [phone] | | [facility] | | [address] | | | - LABORATORY | | [...] 11/05/16. As part | | | of [facility]' Quality Improvement Program, this case was | | | reviewed by another member of our pathology staff. | | | CLR:[facility]:C1NR GROSS DESCRIPTION: The specimen is received in | | | formalin in a container labeled "Alfonso Haji lung". Received are | | | four bqi-tmpcx-trq needle core fragments ranging in length from | | | 0.3-0.6 cm by average diameter of 0.15 cm, entirely submitted in | | | cassette (A1). CLR:[facility] MICROSCOPIC EXAMINATION: Histologic | | | sections [...] | and its performance characteristics determined by [facility]. | | | It has not been cleared or approved by the U.S. Food and Drug | | | Administration. The FDA has determined that such clearance or | | | approval is not necessary. This test is used for clinical purposes. | | | It should not be regarded as investigational or for research. | | | [facility] is certified under the Clinical Laboratory | | | Improvement Amendments of 1988 (CLIA) as qualified to perform high | | | complexity clinical laboratory testing PERFORMING LABORATORY: | | | Tissue processing and slide preparation were performed by [facility] | | | [facility], [address], [place] [address] | | | (Data Typist: Eliezer Helm M.D.; CLIA#: [id number]). | | | Professional interpretation was performed by [facility], [facility] | | | [address], [place] [address] (Data Typist: Eliezer | | | Russ Helm; CLIA#: [id number]). Review for send out and | | | technical processing was performed by [facility], [place] | | | [facility], [address] [place], [place] | | | [address] (Data Typist: Eliezer Helm M.D.; CLIA#: | | | [id number]). REASON FOR ADDENDUM: To add request for molecular | | | testing. ADDENDUM COMMENT: At the request of Milton Salazar MD | | | archived slide(s) and block(s) for case [id number] are retrieved on | | | Smitha Rider and are reviewed by a pathologist to assess | | | adequacy for PD-L1 (Keytruda) testing. Block A1 is sent to | | | [facility] [place], [place]. JEFFREY:claudia PERFORMING | | | LABORATORY: The Technical Component Processing and Analysis of this | | | test was completed at [facility], [address] [place] [address] | | | [place], [place] / [address] / [phone] / CLIA #[id number] / Medical | | | Director: Dr. Doc Chakraborty. The Professional Component of this | | | test was completed at [facility] [place], [address], [address], | | | [place], [place] / [address] / [phone] / CLIA # [id number] / Medical | | | Director: Dr. Mita Salgado, (Accession / CaseNo: [id number] / | | | [id number]). A detailed copy of the report is kept on file. | | | REASON FOR ADDENDUM: To add results of additional testing. | | | PD-L1 22C3 FDA (KEYTRUDA) PD-L1 22C3 FDA (KEYTRUDA(r)): NO | | | EXPRESSION Tumor Proportion Score: 0% Intensity: Absent | | | Diagnostician: Cristian Butron MD Pathologist Diagnostician: | | | Eliezer [...] | + + documented in this encounter Admitting Diagnoses + + | Diagnosis | + + | Pneumothorax after biopsy Iatrogenic pneumothorax | + + documented in this encounter
--- OUTSIDE RECORDS SUMMARY | ~2020-07-17 | XMS | Encounter Summary ---
Demographics + + + | Address | [address] | | | [place] [address] | + + + | Home Phone [...] Author + + + | Author | [facility] | | | and [place] | + + + | Organization | [facility] | | | and [...] Team Providers + +------+ + | Care Vp Digital Marketing Name | Role | Phone | + +------+ + | Zuleyka Martínez | PCP | | + +------+ + Reason for Referral Evaluate & Treat (Urgent) +--------+ + + + + + | Status | Reason | Specialty | Diagnoses / | Referred By | Referred To | | | | | Procedures | Contact | Contact | +--------+ + + + + + | Closed | Specialty | Neurosurgery | Diagnoses | | Avinash, | | | Services | | Brain tumor | Marie, | DO Lemuel | | | Required | | (HCC) | [place] | [address] | | | | | | MD Beb[address] | [address] | | | | | | [address] | [address] | | | | | | [address] | [place] | | | | | | [place] | [address] | | | | | | [address] | Phone: | | | | | | Phone: | [phone] | | | | | | [phone] | Fax: | | | | | | Fax: | [phone] | | | | | | [phone] | | +--------+ + + + + + Encounter Details +--------+ + + + + | Date | Type | Department | Care Team | Description | +--------+ + + + + | 01/23/ | Orders Only | [facility] | Marie Milton | Brain tumor (HCC) | | 2020 | | [facility] | MD eBbeto [address] | (Primary Dx) | | | | [facility] [address] | | | | | [address] [place] | [place] [address] | | | | | [place] [address] | [phone] | | | | | [phone] | | | +--------+ + + + [...] WAYNE | | | | | | 012602 | | | | | | | | +--------+ + + + + + + +--------+ + + | Name | Type | Priori | Associated Diagnoses | Order Schedule | | | | ty | | | + + +--------+ + + | [facility] | Outpatient | Routin | Brain tumor (HCC) | Ordered: 01/24/2020 | | Neurosurgery - AMB | Referral | e | | | | Referral | | | | | + + +--------+ + + documented as of this encounter Visit Diagnoses + + | Diagnosis | + + | Brain tumor (HCC) - Primary Neoplasm of unspecified nature of brain | + + documented in this encounter"
--- OUTSIDE RECORDS SUMMARY | ~2020-07-17 | XMS | Encounter Summary ---
Demographics + + + | Address | [address] | | | [place] [address] | + + + | Home Phone [...] Author + + + | Author | [facility] | | | and [place] | + + + | Organization | [facility] | | | [...] Team Providers + +------+ + | Care Utilization Reviewer Name | Role | Phone | + [...] | | | [address] [place] | [place] [address] | | | | | [place] [address] | | | | | | [phone] | | | +--------+ + + + [...] [address] | | | | | | [place], [place] | | | | | | [address] | | | | | | | [...]
--- OUTSIDE RECORDS SUMMARY | ~2020-07-17 | XMS | Encounter Summary ---
Demographics + + + | Address | [address] | | | [place] [address] | + + + | Home Phone | | + + + | Preferred Language | Unknown | + + + | Marital Status | Single | + + + | Sabianism Affiliation | Unknown | + + + [...] Team Providers + +------+ + | Care Hvac Specialist Name | Role | Phone | + +------+ + | Zuleyka Martínez | PCP | | + +------+ + Reason for Visit + +--------+ + | Reason | Onset | Comments | | | Date | | + +--------+ + | Patient Concerns | 04/02/ | | | | 2020 | | + +--------+ + Encounter Details +--------+ + + + + | Date | Type | Department | Care Team | Description | +--------+ + + + + | 04/02/ | Telephone | [facility] | Milton Salazar | Patient Concerns | | 2020 | | [facility] | MD [address] | | | | | [facility] [address] | [facility] | | | | | [address] | [place] [address] | | | | | [place] [address] | [phone] | | | | | [phone] | | | +--------+ + + + [...] Telephone Encounter - Ashley Doty RN - 04/03/2020 8:50 AM PDTReturn call to Olena ning rivas follow up with her regarding her biopsy that was sent off to [facility]. She stated she had rec eived a letter from her insurance company stating they have denied the claim. I explain the process and told her I would reach out to the junior sales representative regarding her insurance since t he test appears to almost be completed. Electronically signed by Ashley Doty RN at 2019 9:18 AM PDTTelephone Encounter - Adriana Gupta - 04/02/2020 1:23 PM PDTMichelle call ed stating that she received a letter from her Insurance, they denied the Molecular testing and she wants to know what to do now? Please return call to advise, thank you. documented in this encounter Plan of Treatment [...] [place] | | | | | | [id number] | | | | | | | | +--------+ + + + + documented as of this encounter Visit Diagnoses Not on filedocumented in this encounter"
--- OUTSIDE RECORDS SUMMARY | ~2020-07-17 | XMS | Encounter Summary ---
Demographics + + + | Address | [address] | | | [place] [address] | + + + | Home Phone | | + + + | Preferred Language | Unknown | + + + | Marital Status | Single | + + + | Uatsdin Affiliation | Unknown | + + + | Race | White | + + + | Ethnic Group | Not or | + + + Author + + + | Author | [facility] | | | and [place] | + + + | Organization | [facility] | | | [...] Team Providers + +------+ + | Care Billing Representative Name | Role | Phone | + [...] | | Non-small | Salazar, | [address] | | | | | cell cancer | Milton | [place], | | | | | of right | [place] | [place] [address] | | | | | lung (HCC) | [address] | Phone: | | | | | Procedures | [place] | [phone] | | | | | CT Chest | [place], [place] | Fax: | | | | | Abdomen | [address] | [phone] | | | | | Pelvis w | Phone: | | | | | | Contrast | [phone] | | | | | | | Fax: | | | | | | | [phone] | | +--------+--------+ + + + + [...] | | | lung (HCC) | [address] | [address] [place] | | | | | Procedures | [place], | [place], [place] | | | | | [address] | [place] | [address] Phone: | | | | | | [address] | [phone] | | | | | | Phone: | Fax: | | | | | | [phone] | [phone] | | | | | | Fax: | | | | | | | [phone] | | +--------+--------+ + + + + Encounter Details +--------+ + + + + | Date | Type | Department | Care Team | Description | +--------+ + + + + | 08/16/ | Hospital | [facility] | Milton Salazar | Non-small cell | | 2018 | Encounter | [facility] | MD [place] [address] | cancer of right lung | | | | [facility] [address] [place] | (HCC) (Primary Dx); | | | | [address] [place] | [place] [address] | Malignant neoplasm | | | | [place] [address] | [phone] | of thyroid gland | | | | [phone] | | (HCC) | +--------+ + + [...] + + + | Blood Pressure | 143/90 | 08/16/2018 2:43 PM | | | | | PDT | | + + + + + | Pulse | 119 | 08/16/2018 2:43 PM | | | | | PDT | | + + + + + | Temperature | 35.8 C (96.4 F) | 08/16/2018 2:43 PM | | | | | PDT | | + + + + + | Respiratory Rate | 16 | 08/16/2018 2:43 PM | | | | | PDT | | + + + + + | Oxygen Saturation | 99% | 08/16/2018 2:43 PM | | | | | PDT | | + + + + + | Inhaled Oxygen | - | - | | | Concentration | | | | + + + + + | Weight | 90.2 kg (198 lb 13.7 | 08/16/2018 2:43 PM | | | | oz) | PDT | | + + + + + | Height | - | - | | + + + + + | Body Mass Index | 30.24 | 11/04/2016 9:00 AM | | | [...] encounter Progress Notes Milton Salazar MD - 08/16/2018 3:23 PM PDTFormatting of this note might be diff erent from the original. Hem-Onc Progress Note [facility] Pt. Name/Age/: Olena Rider 57 y.o. 1960 Med. Record Number: [id number] Date of admission: 08/16/2018 Assessment and plan: 1. Non-small cell lung [...] abllation, Oct, 2016 A counseling session today to discuss development of continuing severe left lower quadrant discomfort. We discussed differential diagnosis including the possibility of diverticulitis , underlying pelvic pathology that was not detected during today's examination or other anom [place]. We discussed meralgia paresthetica as often having a more neuropathic component. We d id not palpate adenopathy to suggest neoplastic invasion at the level of the inguinal ligame nt or the femoral lymph nodes. Patient's thoracic sig examination would not suggest local r elapse of lung cancer. Because of this quandary we are going to asked patient return to the laboratory to include blood counts and then will obtain CT imaging of chest abdomen and pelvis both a surveillance for lung cancer but also as a diagnostic evaluation for patient's left lower quadrant disco mfort. Short-term follow-up then will be scheduled for report. Subjective: The patient chart and medications were reviewed in detail and the patient was seen and exam ined. Olena Rider is a 57 y.o. female returns today for surveillance follow-up monitoring a remission of lung cancer. Interim history per patient 5 consecutive months of continuing severe left lower quadrant p ain. Pain begins in the lower portion of the left side of the abdomen with secondary radiat ion into the left inguinal region. Pain varies between 7-10 on a 0-10 scale in terms of int ensity, is described as aching as beginning to affect other pelvic functions such as avoidin g the bladder. Patient has not noticed a change in her stools. Nor has it affected her jackie etite. The pain however is becoming discouraging to patient as it is more or less unrelenti ng. Patient in the midst of dietary preparations for a new thyroid scan on a low iodine diet. She is 6 seated in smoking cessation again after a momentary lapses at the time of the [facility] et round up. She is not having shortness of breath or other thoracic symptoms however. PSH: Reviewed, no changes to admission H&P. Past Medical History: Diagnosis Date Anxiety Insomnia Malignant neoplasm of thyroid gland (HCC) PONV (postoperative nausea and vomiting) Review of Systems: Constitutional: States fatigue. Denies high fevers, shaking chills, anorexia, nausea, vomi ting, weight loss, or night sweats. Appetite without changes. Nausea is every day. Ear, Nose, Mouth, Throat: Denies odynophagia or tinnitus. Feels like food gets stuck in my throat and it makes it hard to eat much. Dysphagia, stared around two month ago, she does h ave an appointment with Dr. Reaves in [place]. Cardiovascular: State s shortness of breath, dyspnea on exertion. Denies chest pain, palpit ations or orthopnea. Respiratory: Denies cough, hemoptysis, or sputum production. Gastrointestinal: Denies abdominal pain, constipation, diarrhea, melena, or bright red bloo d per rectum. L groin pain. Genitourinary: Denies hematuria or dysuria. Musculoskeletal: Denies joint pain or tenderness. Neurologic: Denies headache, visual changes, or numbness/tingling of the extremities. Inter mittent headaches. Endocrine: Denies peripheral edema or heat/cold intolerance. Hematologic: Denies spontaneous bruising or bleeding. Integumentary: Denies rash, wounds or other skin concerns. Pain: L/groin pain at a 8/10. Managed per pt poorly with Tylenol and Ibuprofen. Tolerable pain level:4>/10. Pain can get up to a 10/10~pain is described as an constant intense pain . Review of systems as above otherwise negative [...] on file prior to encounter. Objectives: Temp: 35.8 C (96.4 F) BP: 143/90 Pulse: 119 Resp: 16 SpO2: 99 % on Min/Max Temp past 24 hours:Temp Av.8 C (96.4 F) Min: 35.8 C (96.4 F) Max: 3 5.8 C (96.4 F) No intake or output data in the 24 hours ending 08/16/18 1524 Wt. Admission: Weight: 90.2 kg (198 lb 13.7 oz) Wt. Current: Weight: 90.2 kg (198 lb 13 .7 oz) Physical Exam: Exam: General: The patient is alert and oriented. No acute distress. HEENT: PERRL, Oral mucosa intact. Neck is supple. Cardiovascular: Regular rate and rhythm, no murmur. Respiratory: Clear to auscultation and percussion. Breast: Not examined Abdomen: Tenderness to palpation in the left lower quadrant Genitourinary: Tenderness in the left adnexal region but no palpable mass.. Extremities: Nontender, no erythema, no edema. Skin: No rashes, bruising, or petechiae. Lymph: No palpable nodes in the neck, supraclavicular fossa, axilla or groin. Neurological: Cranial nerves are intact. Normal sensory and motor function, No focal defi cits noted. Muscular/Skeletal: No acute bony tenderness. Psychiatric: Normal mood and affect. Diagnostic studies: Electronically signed by: Milton Salazar, 08/16/2018 15:24 [facility] TIME SPENT 25 MIN. > 50% AT BEDSIDE, WITH FAMILY/PATIENT IN CARE AND LIQUID FLAVOR COMPOUNDER ON UNIT AND CO ORDINATION OF CARE Portions of this chart may have been created with [employer] voice recognition software. Occasi onal wrong-word or sound-alike substitutions may have occurred due to the inherent cervantes itations of voice recognition software. Please read the chart carefully and recognize, using context, where these substitutions have occurred. Amanda Wagner CMA - 08/16/2018 2:46 PM PDTREVIEW O F SYSTEMS Constitutional: States fatigue. Denies high fevers, shaking chills, anorexia, nausea, vomi ting, weight loss, or night sweats. Appetite without changes. Nausea is every day. Ear, Nose, Mouth, Throat: Denies odynophagia or tinnitus. Feels like food gets stuck in my throat and it makes it hard to eat much. Dysphagia, stared around two month ago, she does h ave an appointment with Dr. Reaves in [place]. Cardiovascular: State s shortness of breath, dyspnea on exertion. Denies chest pain, palpit ations or orthopnea. Respiratory: Denies cough, hemoptysis, or sputum production. Gastrointestinal: Denies abdominal pain, constipation, diarrhea, melena, or bright red bloo d per rectum. L groin pain. Genitourinary: Denies hematuria or dysuria. Musculoskeletal: Denies joint pain or tenderness. Neurologic: Denies headache, visual changes, or numbness/tingling of the extremities. Inter mittent headaches. Endocrine: Denies peripheral edema or heat/cold intolerance. Hematologic: Denies spontaneous bruising or bleeding. Integumentary: Denies rash, wounds or other skin concerns. Pain: L/groin pain at a 8/10. Managed per pt poorly with Tylenol and Ibuprofen. Tolerable pain level:4>/10. Pain can get up to a 10/10~pain is described as an constant intense pain . Note: Pt is here for follow up. NO LABS My chart: Declined d ocumented in this encounter Plan of Treatment +--------+ + + + + | Date | Type | Specialty | Care Team | Description | +--------+ + + + + | 11/22/ | Appointment | Radiation Oncology | Susie Montemayor | | | 2020 | | | MD [address] | | | | | | [address] [place] | | | | | | [address] | | | | | | | | +--------+ + + + + + +------+--------+ + + | Name | Type | Priori | Associated Diagnoses | Order Schedule | | | | ty | | | + +------+--------+ + + | CBC w/ Auto | Lab | STAT | Non-small cell | 52 Occurrences | | Differential | | | cancer of right lung | starting 08/16/2018 | | | | | (HCC) | until 08/16/2019, 2 | | | | | | completed | + +------+--------+ + + | Comprehensive | Lab | STAT | Non-small cell | 52 Occurrences | | Metabolic Panel | | | cancer of right lung | starting 08/16/2018 | | | | | (HCC) | until 08/16/2019, 2 | | | | | | completed | + +------+--------+ + + documented as of this encounter Procedures + +--------+ + + + | Procedure Name | Priori | Date/Time | Associated Diagnosis | Comments | | | ty | | | | + +--------+ + + + | DIAGNOSTIC REPORT - | | 10/07/2018 | | Results for this | | EXTERNAL SCAN | | 12:00 AM | | procedure are in the | | | | PST | | results section. | + +--------+ + + + | CBC W/AUTO | STAT | 08/16/2018 | Non-small cell | Results for this | | DIFFERENTIAL | | 3:39 PM | cancer of right lung | procedure are in the | | | | PDT | (HCC) | results section. | + +--------+ + + + | COMPREHENSIVE | STAT | 08/16/2018 | Non-small cell | Results for this | | METABOLIC PANEL | | 3:39 PM | cancer of right lung | procedure are in the | | | | PDT | (HCC) | results section. | + +--------+ + + + documented in this encounter Results Comprehensive Metabolic Panel (05/24/2019 7:49 AM PDT) [...] | non- | FILTRATION | mL/min/1.73m2 | [facility] | | | [place] | RATE,ESTIMATED | | MEDICAL | | | | mL/min/1.93v5Vdca than | | CENTER - | | [...] + | [facility] | [address] | [place] | [phone] | | [facility] | | [address] | | | - LABORATORY | | | | + + + + + CBC w/ Auto Differential (05/24/2019 7:49 AM PDT) + + + + + + | Component | Value | Ref Range | Performed | Pathologist | | | | | At | Signature | + + + + + + | White Blood | 9.2 | 4.0 - 11.0 K/uL | [facility] | | | Cells | | | [facility] | | [...] | | | | | g/dL | [facility] | | | | | [...] | Basophils | | K/uL | [facility] | | | | | | MEDICAL | | | | | | CENTER - | | | | | | LABORATORY | | + + + + + + | Absolute | 0.02 | 0.00 - 0.03 | [facility] | | | Immature | | K/uL | [facility] | | | Granulocyte | | | MEDICAL | | | s | | | CENTER - | | | | | | LABORATORY | | + + + + + + | % nRBC | 0 | 0 - 2 per 100 | [facility] | | | | | WBCs | [facility] | | | | [...] [address] | [place] | [phone] | | [facility] | | [address] | | | - LABORATORY | | | | + + + + + DIAGNOSTIC REPORT - EXTERNAL SCAN (10/07/2018 12:00 AM PST) + + + | Narrative | Performed At | + + + | Ordered by an | | | unspecified provider. | | + + + CT Chest Abdomen Pelvis w Contrast (08/18/2018 12:15 PM PDT) + + | Specimen | + + | | + + + + + | Narrative | Performed At | + + + | CT CHEST ABDOMEN PELVIS W CONTRAST 08/18/2018 12:07 PM HISTORY: | [facility] | | New left lower quadrant pain of severe degree; history of lung cancer. | | | COMPARISON: Multiple priors most recently dated 03/11/2018 | | | PROTOCOL: Axial images of the chest, abdomen, and pelvis were obtained | | | after uneventful administration of 90 mL Omnipaque 350. Coronal and | | | sagittal reformations were acquired. CHEST FINDINGS: LUNGS: | | | Mild bibasilar scarring. Stable left medial lower lobe pleural bleb. | | | No evidence of pneumothorax or pleural effusion. Stable post surgical | | | changes related to prior right lower lobectomy. No suspicious mass | | | or nodule. HEART: The heart is of normal size. VASCULATURE: Aorta | | | is normal in size and without evidence of dissection or aneurysmal | | | dilation. Mild aortic calcification. The pulmonary arteries are | | | unremarkable. Visualized venous structures are patent. LYMPH NODES: | | | No evidence of axillary, mediastinal, or hilar lymphadenopathy. | | | MEDIASTINUM: Trachea and esophagus are normal. Neck base is normal. | | | SOFT TISSUES: Chest wall structures are normal. BONES: There are no | | | acute osseous abnormalities. Stable slight hazy sclerosis along the | | | posterior aspect of the L1 vertebral body. ABDOMEN FINDINGS: | | | HEPATOBILIARY: Stable appearance of multiple subcentimeter | | | hypodensities within both hepatic lobes, unchanged since 01/02/2016. No | | | suspicious new hepatic mass. The gallbladder is normal. No | | | evidence of intrahepatic or extrahepatic biliary ductal dilatation. | | | SPLEEN: Normal parenchyma. No evidence of mass or splenomegaly. | | | PANCREASE: Normal parenchyma. No evidence of pancreatic ductal | | | dilation. ADRENAL GLANDS: Stable left adrenal adenoma measuring 10 | | | mm. KIDNEYS: Bilateral kidneys are without evidence of suspicious | | | mass, calculus, or hydronephrosis. Stable appearance of multiple | | | bilateral subcentimeter lesions likely representing a benign simple | | | cyst. BOWEL: The stomach is normal. Imaged small bowel and colon | | | demonstrate no acute findings. No evidence of dilatation to suggest | | | obstruction or abnormal bowel wall thickening. Anastomotic sutures | | | seen near the level of the ileocecal valve. VASCULATURE: Aorta is | | | nonaneurysmal and without evidence of dissection. Similar surgical | | | clips versus calcifications along the anterior/superficial aspects of | | | bilateral external iliac arteries. Scattered mild atherosclerosis. | | | LYMPH NODES: No enlarged lymph nodes are visualized within the omentum | | | or retroperitoneum. PERITONEUM: There is no evidence for free | | | fluid or free air. BLADDER: Unremarkable. REPRODUCTIVE: Uterus is | | | not visualized. SOFT TISSUES: Small right para midline | | | fat-containing ventral abdominal wall hernia. BONES: There are no | | | acute osseous abnormalities. Degenerative changes of the lower lumbar | | | facets. No suspicious new area of sclerosis or lucency. Stable | | | mildly sclerotic foci are seen within bilateral femoral necks within | | | the L1 vertebral body. IMPRESSION - No evidence for a new chest | | | mass or lymphadenopathy to suggest metastatic disease. Stable | | | appearance of a few faintly sclerotic bone lesions when compared to | | | 2016. Other chronic findings as detailed above. Dictated and | | | Signed by: Chai Nguyen MD Electronically signed: 08/18/2018 | | | 1:56 PM | | + + + + + | Procedure Note | + + | Christopher, Rad Results In - 08/18/2018 1:[address] CHEST ABDOMEN PELVIS W CONTRAST | | 08/18/2018 12:07 PMHISTORY: New left lower quadrant pain of severe degree; history of | | lung cancer.COMPARISON: Multiple priors most recently dated 03/11/2018PROTOCOL: Axial | | images of the chest, abdomen, and pelvis were obtained afteruneventful administration of | | 90 mL Omnipaque 350. Coronal and sagittalreformations were acquired.CHEST | | FINDINGS:LUNGS: Mild bibasilar scarring. Stable left medial lower lobe pleural bleb. | | Noevidence of pneumothorax or pleural effusion. Stable post surgical changesrelated to | | prior right lower lobectomy. No suspicious mass or nodule.HEART: The heart is of normal | | size. VASCULATURE: Aorta is normal in size and without evidence of dissection | | oraneurysmal dilation. Mild aortic calcification. The pulmonary arteries | | areunremarkable. Visualized venous structures are patent.LYMPH NODES: No evidence of | | axillary, mediastinal, or hilar lymphadenopathy.MEDIASTINUM: Trachea and esophagus are | | normal. Neck base is normal.SOFT TISSUES: Chest wall structures are normal.BONES: There | | are no acute osseous abnormalities. Stable slight hazy sclerosisalong the posterior | | aspect of the L1 vertebral body.ABDOMEN FINDINGS:HEPATOBILIARY: Stable appearance of | | multiple subcentimeter hypodensities withinboth hepatic lobes, unchanged since 01/02/2016. | | No suspicious new hepatic mass.The gallbladder is normal. No evidence of intrahepatic | | or extrahepatic biliaryductal dilatation.SPLEEN: Normal parenchyma. No evidence of mass | | or splenomegaly.PANCREASE: Normal parenchyma. No evidence of pancreatic ductal | | dilation.ADRENAL GLANDS: Stable left adrenal adenoma measuring 10 mm.KIDNEYS: Bilateral | | kidneys are without evidence of suspicious mass, calculus, orhydronephrosis. Stable | | appearance of multiple bilateral subcentimeter lesionslikely representing a benign | | simple cyst.BOWEL: The stomach is normal. Imaged small bowel and colon demonstrate no | | acutefindings. No evidence of dilatation to suggest obstruction or abnormal bowelwall | | thickening. Anastomotic sutures seen near the level of the ileocecal valve.VASCULATURE: | | Aorta is nonaneurysmal and without evidence of dissection. Similarsurgical clips versus | | calcifications along the anterior/superficial aspects ofbilateral external iliac | | arteries. Scattered mild atherosclerosis.LYMPH NODES: No enlarged lymph nodes are | | visualized within the omentum orretroperitoneum. PERITONEUM: There is no evidence for | | free fluid or free air.BLADDER: Unremarkable.REPRODUCTIVE: Uterus is not visualized. | | SOFT TISSUES: Small right para midline fat-containing ventral abdominal | | wallhernia.BONES: There are no acute osseous abnormalities. Degenerative changes of | | thelower lumbar facets. No suspicious new area of sclerosis or lucency. Stablemildly | | sclerotic foci are seen within bilateral femoral necks within the [id number] | | body.IMPRESSION -No evidence for a new chest mass or lymphadenopathy to suggest | | metastaticdisease.Stable appearance of a few faintly sclerotic bone lesions when | | compared to 2016.Other chronic findings as detailed above.Dictated and Signed by: Chai | | MD Patrick Electronically signed: 08/18/2018 1:56 PM | |findings. No evidence of dilatation to suggest obstruction or abnormal bowel | |wall thickening. Anastomotic sutures seen near the level of the ileocecal valve. | |VASCULATURE: Aorta is nonaneurysmal and without evidence of dissection. Similar | |surgical clips versus calcifications along the anterior/superficial aspects of | |bilateral external iliac arteries. Scattered mild atherosclerosis. | |LYMPH NODES: No enlarged lymph nodes are visualized within the omentum or | |retroperitoneum. | |PERITONEUM: There is no evidence for free fluid or free air. | |BLADDER: Unremarkable. | |REPRODUCTIVE: Uterus is not visualized. | |SOFT TISSUES: Small right para midline fat-containing ventral abdominal wall | |hernia. | |BONES: There are no acute osseous abnormalities. Degenerative changes of the | |lower lumbar facets. No suspicious new area of sclerosis or lucency. Stable | |mildly sclerotic foci are seen within bilateral femoral necks within the L1 | |vertebral body. | | | |IMPRESSION - | |No evidence for a new chest mass or lymphadenopathy to suggest metastatic | |disease. | | | |Stable appearance of a few faintly sclerotic bone lesions when compared to 2016. | | | |Other chronic findings as detailed above. | | | |Dictated and Signed by: Chai Nguyen MD | | Electronically signed: 08/18/2018 1:56 PM | + + + +---------+ + + | Performing | Address | City/State/Zipcode | Phone Number | | Organization | | | | + +---------+ + + | [facility] | | | | + +---------+ + + Comprehensive Metabolic Panel (08/16/2018 3:39 PM PDT) + + + + + + | Component | Value | Ref Range | Performed | Pathologist | | | | | At | Signature | + + + + + + | Na | 137 | 136 - 149 | [facility] | [...] + + + + | Cl | 103 | 98 - 109 mmol/L | [facility] | | | | | | [facility] | | | | | | MEDICAL | | | | | | CENTER - | | | | | | LABORATORY | | + + + + + + | CO2 | 25 | 24 - 31 mmol/L | [facility] | | | | | [...] + + + + | Glucose | 131 (H) | 70 - 109 mg/dL | [facility] | | | | | | [facility] | | | | | | MEDICAL | | | | | | CENTER - | | | | | | LABORATORY | | + + + + + + | BUN | 11 | 7 - 18 mg/dL | [facility] [...] | non- | FILTRATION | mL/min/1.73m2 | [facility] | | | [place] | RATE,ESTIMATED | | MEDICAL | | | | mL/min/1.36h5Mtml than | | CENTER - | | [...] + + + + | Calcium | 8.9 | 8.3 - 10.5 | [facility] | [...] + + + + | Bilirubin | 0.3Comment: This is an | 0.1 - 1.5 [...] + + + + | Total | 7.1 | 6.0 - 7.8 g/dL | [facility] | | | Protein | | | [facility] | | | | | | MEDICAL | | | | | | CENTER - | | | | | | LABORATORY | | + + + + + + | AST | 20Comment: This is an | 10 - 42 [...] + + + + | ALT | 16Comment: This is an | 6 - 45 [...] + + + + | Alkaline | 75Comment: This is an | 40 - 110 [...] + + + + | Globulin | 3.1 | 2.1 - 3.8 g/dL | [facility] [...] + + + + | BUN/Creatin | 11.6 | | [facility] | | | ine [...] [address] | [place] | [phone] | | [facility] | | [address] | | | - LABORATORY | | | | + + + + + CBC w/ Auto Differential (08/16/2018 3:39 PM PDT) + + + + + + | Component | Value | Ref Range | Performed | Pathologist | | | | | At | Signature | + + + + + + | White Blood | 10.2 | 4.0 - 11.0 K/uL | [facility] | | | Cells | | | [facility] | | | | | | MEDICAL | | | | | | CENTER - | | | | | | LABORATORY | | + + + + + + | Red Blood | 4.78 | 3.70 - 5.20 | [facility] | | | Cells | | M/uL | [facility] | | | | | | MEDICAL | | | | | | CENTER - | | | | | | LABORATORY | | + + + + + + | Hemoglobin | 14.5 | 11.5 - 16.0 | [facility] | | | | | g/dL | [facility] | | | | | | MEDICAL | | | | | | CENTER - | | | | | | LABORATORY | | + + + + + + | Hematocrit | 43.6 | 34.0 - 47.0 % | [facility] | | | | | | [facility] | | | | | | MEDICAL | | | | | | CENTER - | | | | | | LABORATORY | | + + + + + + | MCV | 91.2 | 83.0 - 101.0 fL | [facility] | | | | | | [facility] | | | | | | MEDICAL | | | | | | CENTER - | | | | | | LABORATORY | | + + + + + + | MCH | 30.3 | 28.0 - 35.0 pg | [facility] | | | | | | [facility] | | | | | | MEDICAL | | | | | | CENTER - | | | | | | LABORATORY | | + + + + + + | MCHC | 33.3 | 32.0 - 36.0 | [facility] | | | | | g/dL | [facility] | | | | | | MEDICAL | | | | | | CENTER - | | | | | | LABORATORY | | + + + + + + | RDW-CV | 12.1 | <15.0 % | [facility] | | | | | | [facility] | | | | | | MEDICAL | | | | | | CENTER - | | | | | | LABORATORY | | + + + + + + | RDW-SD | 40.1 | 35.1 - 46.3 fL | [facility] | | | | | | [facility] | | | | | | MEDICAL | | | | | | CENTER - | | | | | | LABORATORY | | + + + + + + | Platelet | 331 | 140 - 440 K/uL | [facility] | | | Count | | | [facility] | | | | | | MEDICAL | | | | | | CENTER - | | | | | | LABORATORY | | + + + + + + | MPV | 9.5 | 6.5 - 12.4 fL | [facility] | | [facility] | [facility] - | | | | | | LABORATORY | | + + + + + + | % | 53.2 | 45.0 - 82.0 % | [facility] | | | Neutrophils | | | [facility] | | | | | | [facility] | | | | | | [facility] - | | | | | | LABORATORY | | + + + + + + | % | 37.7 | 20.0 - 45.0 % | [facility] | | | Lymphocytes | | | [facility] | | | | | | [facility] | | | | | | [facility] - | | | | | | LABORATORY | | + + + + + + | % Monocytes | 6.2 | 4.0 - 12.0 % | [facility] [...] + + + | % Basophils | 0.8 | 0.0 - 1.0 % | [facility] | | | | | | [facility] | | | | | | [facility] | | | | | | [facility] - | | | | | | LABORATORY | | + + + + + + | % Immature | 0.3 | 0.0 - 0.4 % | [facility] | | | Granulocyte | | | [facility] | | | s | | | MEDICAL | | | | | | CENTER - | | | | | | LABORATORY | | + + + + + + | Absolute | 5.43 | 1.80 - 8.50 | [facility] | | | Neutrophils | | K/uL | [facility] | | | | | | [facility] | | | | | | [facility] - | | | | | | LABORATORY | | + + + + + + | Absolute | 3.85 (H) | 0.60 - 3.20 | [facility] | | | Lymphocytes | | K/uL | [facility] | | | | | | [facility] | | | | | | [facility]ENTER - | | | | | | LABORATORY | | + + + + + + | Absolute | 0.63 | 0.00 - 1.00 | [facility] | | | Monocytes | | K/uL | [facility] | | | | | | [facility] | | | | | | CENTER - | | | | | | LABORATORY | | + + + + + + | Absolute | 0.18 | 0.00 - 0.40 | [facility] | [...] + + + + | Absolute | 0.03 | 0.00 - 0.03 | [facility] | [...] | [facility] | | | | | WBC's | [facility] | | | | | | [facility] | | | | | | CENTER - | | | | | | LABORATORY | | + + + + + + | Absolute | 0.00 | 0.00 - 0.01 | [facility] | | | nRBC | | K/uL | [facility] | [...] [address] | ERIC [place]ar | [phone] | | [facility] | | [address] | | | - LABORATORY | | [...]
--- OUTSIDE RECORDS SUMMARY | ~2020-07-17 | XMS | Encounter Summary ---
Demographics + + + | Address | [address] | | | [place] [address] | + + + | Home Phone [...] Author + + + | Author | [facility] | | | and [place] | + + + | Organization | [facility] | | [...] Team Providers + +------+ + | Care Inker Machine Name | Role | Phone | + [...] | Primary | Susie M, | [address] [place] | | | | | malignant | MD [address] | [place], | | | | | neoplasm of | [address] | [place] [address] | | | | | female | [place], | Phone: | | | | | breast (HCC) | [place] [address] | [phone] | | | | | Procedures | Phone: | Fax: | | | | | [place] | [phone] | [phone] | | | | | Treatment | Fax: | | | | | | Plan Complex | [phone] | | +--------+--------+ + + + + Encounter Details +--------+ + + + + | Date | Type | Department | Care Team | Description | +--------+ + + + + | 08/25/ | Orders Only | [facility] | Susie Montemayor | Primary malignant | | 2019 | | [facility] | MD Jared [address] | neoplasm of female | | | | [facility] [address] | [place], [place] | breast (HCC) | | | | [address] [place] | [address] | (Primary Dx) | | | | [place] [address] | | | | | | [phone] | | | +--------+ + + + [...] [place] | | | | | | [address] | | | | | | | | +--------+ + + + + documented as of this encounter Results CT Treatment Plan Complex [...]
--- OUTSIDE RECORDS SUMMARY | ~2020-07-17 | XMS | Encounter Summary ---
Demographics + + + | Address | [address] | | | [place] [address] | + + + | Home Phone | | + + + | Preferred Language | Unknown | + + + | Marital Status | Single | + + + | Episcopalian Affiliation | Unknown | + + + | Race | White | + + + | Ethnic Group | Not or | + + + Author + + + | Author | [facility] | | | and [place] | + + + | Organization | [facility] | | | and [...] Team Providers + +------+ + | Care Sales And Business Development Manager Name | Role | Phone | [...] | | Non-small | Salazar, | [address] [place] | | | | | cell cancer | Milton | [place]ak[place] Jhaveri, | | | | | of right | [place] | [place] [address] | | | | | lung (HCC) | [address] | Phone: | | | | | Procedures | [place] | [phone] | | | | | CT Chest w | [place] | Fax: | | | | | Contrast | [address] | [phone] | | | | | | Phone: | | | | | | | [phone] | | | | | | | Fax: | | | | | | | [phone] | | +--------+--------+ + + + + [...] | | | | | Non-small | Marie | [address] | | | | | cell cancer | Milton | [place], | | | | | of right | [place] | [place] [address] | | | | | lung (HCC) | [address] | Phone: | | | | | Procedures | [place] | [phone] | | | | | CT Chest w | [place] | Fax: | | | | | Contrast | [address] | [phone] | | | | | | Phone: | | | | | | | [phone] | | | | | | | Fax: | | | | | | | [phone] | | +--------+--------+ + + + + Encounter Details +--------+ + + + + | Date | Type | Department | Care Team | Description | +--------+ + + + + | 08/08/ | Hospital | [facility] | [place] Salazar | Non-small cell | | 2019 | Encounter | MED CTR CT [address] | MD [place] [address] | cancer of right lung | | | | [place], | [address] [place] | ([facility]) | | | | [place] [address] | [place] [address] | | | | | [phone] | [phone] | | | | | | | [...] | | | | | [place] | | | | | | [address] | | | | | | | | +--------+ + + + + documented as of this encounter Procedures + +--------+ + + + | Procedure Name | Priori | Date/Time | Associated Diagnosis | Comments | | | ty | | | | + +--------+ + + + | CT CHEST W CONTRAST | Routin | 08/08/2019 | Non-small cell | Results for this | | | e | 10:58 AM | cancer of right lung | [...] iohexol (OMNIPAQUE 350) 350 | Given | 08/08/20 | 75 mLs | | | | mg/mL injection 75 mL 75 mL, | | 19 10:56 | | | | | Intravenous, ONCE PRN, Other, for | | AM PDT | | | | | imaging CT study, Starting Tue | | | | | | | 08/08/19 at 1103, For 1 dose, | | | | | | | Radiology | | | | | | + +--------+ +--------+------+------+ +---+---+ | | | +---+---+ documented in this encounter"
--- OUTSIDE RECORDS SUMMARY | ~2020-07-17 | XMS | Encounter Summary ---
Demographics + + + | Address | [address] | | | [place] [address] | + + + | Home Phone [...] Author + + + | Author | [facility] | | | and [place] | + + + | Organization | [facility] | | | [...] Team Providers + +------+ + | Care Aircraft Instrument Mechanic Name | Role | Phone | + +------+ + | Zuleyka Martínez | PCP | | + +------+ + Reason for Visit + + + | Reason | Comments | + + + | Medication Refill | | + + + Encounter Details +--------+--------+ + + + | Date | Type | Department | Care Team | Description | +--------+--------+ + + + | 08/05/ | Refill | [facility] | [place] Salazar | Medication Refill | | 2017 | | [facility] | MD [place] [address] | | | | | [facility]OGY CLINIC [address] | [facility] | | | | | [address] | [place] [address] | | | | | [place] [address] | [phone] | | | | | [phone] | | | +--------+--------+ + + + Social History + + [...] [place] | | | | | | [id number] | | | | | | | | +--------+ + + + + documented as of this encounter Visit Diagnoses + + | Diagnosis | + + | Non-small cell cancer of right lung (HCC) - Primary | + + documented in this encounter"
--- OUTSIDE RECORDS SUMMARY | ~2020-07-17 | XMS | Encounter Summary ---
Demographics + + + | Address | [address] | | | [place] [address] | + + + | Home Phone [...] Author + + + | Author | [facility] | | | and [place] | + + + | Organization | [facility] | | | and [...] Team Providers + +------+ + | Care Forming Mill Operator Name | Role | Phone | [...] Closed | | Radiology | Diagnoses | Poste, | [facility] | | | | | Thyroid | MD Zuleyka | Medicine | | | | | cancer (HCC) | [address] | [address] | | | | | Procedures | | [place], | | | | | [place] Thyroid | [address] | [place] | | | | | Cancer | [place], | [address] | | | | | Metastatic | [place] [address] | Phone: | | | | | Whole Body | Phone: | [phone] | | | | | | [phone] | Fax: | | | | | | Fax: | [phone] | | | | | | [phone] | | +--------+--------+ + + + + Reason for Visit Auth/Cert +--------+--------+ + [...] + + + + | 10/19/ | Hospital | [facility] | Zuleyka Cota, | Thyroid cancer (HCC) | | 2018 | Encounter | MED CTR NUCLEAR | MD [address] | | | | | MEDICINE [address] | [address] [place], | | | | | [place], | [place] [address] | | | | | [place] [address] | [phone] | | | | | [phone] | | | +--------+ + + + [...] [place] | | | | | | [id number] | | | | | | | | +--------+ + + + + documented as of this encounter Procedures + +--------+ + + + | Procedure Name | Priori | Date/Time | Associated Diagnosis | Comments | | | ty | | | | + +--------+ + + + | NM THYROID CANCER | Routin | 10/21/2018 | Thyroid cancer | Results for this | | METASTATIC SCAN | e | 2:14 PM | (HCC) | procedure are in the | | WHOLE BODY | | PST | | results section. | + +--------+ + + + documented in this encounter Results NM Thyroid Cancer Metastatic Whole Body (10/21/2018 2:14 PM PST) + + | Specimen | + + | | + + + + + | Narrative | Performed At | + + + | NM THYROID CANCER METASTATIC SCAN WHOLE BODY 10/19/2018 2:20 PM | [facility] | | HISTORY: Thyroid cancer surveillance. COMPARISON: 03/11/2018 | | | PROTOCOL: Oral ingestion of 4 mCi of I-131 radiates tracer with | | | subsequent 48-hour imaging of the thyroid for surveillance imaging. | | | FINDINGS: Minimal residual radiotracer uptake is seen within the | | | thyroid bed. No distant foci of radiotracer uptake identified. | | | Physiologic activity is seen within the bowels and bladder. | | | IMPRESSION - Minimal residual radiotracer uptake is seen within the | | | postsurgical thyroid bed/fossa. No distant foci of radiotracer | | | uptake to suggest metastatic disease. Dictated and Signed by: Chai | | | MD Patrick Electronically signed: 10/21/2018 4:36 PM | | + + + + + | Procedure Note | + + | Christopher, Rad Results In - 10/21/2018 4:39 PM PST NM THYROID CANCER METASTATIC SCAN WHOLE | | BODY 10/19/2018 2:20 PMHISTORY: Thyroid cancer surveillance.COMPARISON: | | 03/11/2018PROTOCOL: Oral ingestion of 4 mCi of I-131 radiates tracer with | | [id number] imaging of the thyroid for surveillance imaging.FINDINGS:Minimal | | residual radiotracer uptake is seen within the thyroid bed. No distantfoci of | | radiotracer uptake identified. Physiologic activity is seen within thebowels and | | bladder.IMPRESSION -Minimal residual radiotracer uptake is seen within the postsurgical | | thyroidbed/fossa.No distant foci of radiotracer uptake to suggest metastatic | | disease.Dictated and Signed by: Chai Nguyen MD Electronically signed: 10/21/2018 | | 4:36 PM | |Minimal residual radiotracer uptake is seen within the thyroid bed. No distant | |foci of radiotracer uptake identified. Physiologic activity is seen within the | |bowels and bladder. | | | |IMPRESSION - | |Minimal residual radiotracer uptake is seen within the postsurgical thyroid | |bed/fossa. | | | |No distant foci of radiotracer uptake to suggest metastatic disease. | | | |Dictated and Signed by: Chai Nguyen MD | | Electronically signed: 10/21/2018 4:36 PM | + + + +---------+ + [...] in this encounter Administered Medications + +--------+ + +------+------+ | Medication Order | MAR | Action | Dose | Rate | Site | | | Action | Date | | | | + +--------+ + +------+------+ | iodine I-131 (diagnostic) | Given | 12/19/20 | 4 | | | | capsule 5 millicurie 5 | | 18 2:26 | millicur | | | | millicurie, Oral, ONCE PRN, | | PM PST | ies | | | | Other, Starting 10/19/18 at | | | | | | | 1426, For 1 dose, Nuclear | | | | | | | Medicine | | | | | | + +--------+ + +------+------+ +---+---+ | | | +---+---+ documented in this encounter"
--- OUTSIDE RECORDS SUMMARY | ~2020-07-17 | XMS | Encounter Summary ---
Demographics + + + | Address | [address] | | | [place] [address] | + + + | Home Phone [...] + + + | Author | [facility] | | | and [place] | + + + | Organization | [facility] | | | [...] Team Providers + +------+ + | Care Credit Collections Manager Name | Role | Phone | [...] | Primary | Susie M, | [address] [place] | | | | | malignant | MD [address] | [place], | | | | | neoplasm of | [address] | [place] [address] | | | | | female | [place], | Phone: | | | | | breast (HCC) | [place] [address] | [phone] | | | | | Procedures | Phone: | Fax: | | | | | CT | [phone] | [phone] | | | | | Treatment | Fax: | | | | | | Plan Complex | [phone] | | +--------+--------+ + + + + [...] | Primary | Susie M, | [place] | | | | | malignant | [address] | [place], | | | | | neoplasm of | [address] | [place] [address] | | | | | female | [place], | Phone: | | | | | breast (HCC) | [place] [address] | [phone] | | | | | Procedures | Phone: | Fax: | | | | | CT | [phone] | [phone] | | | | | Treatment | Fax: | | | | | | Plan Complex | [phone] | | +--------+--------+ + + + + Encounter Details +--------+ + + + + | Date | Type | Department | Care Team | Description | +--------+ + + + + | 08/29/ | Hospital | [facility] | Susie Montemayor | Primary malignant | | 2019 | Encounter | MED CTR [address] | M, [address] | neoplasm of female | | | | [place], | [place], [place] | breast (HCC) | | | | [place] [address] | [address] | | | | | [phone] | | | +--------+ + + + [...] [place] | | | | | | [address] | | | | | | | [...]
--- OUTSIDE RECORDS SUMMARY | ~2020-07-17 | XMS | Encounter Summary ---
Demographics + + + | Address | [address] | | | [place] [address] | + + + | Home Phone [...] Team Providers + +------+ + | Care Application Analyst Name | Role | Phone | [...] | | | (ICD-9-CM) - | [address] [place] | | | | | Non-small | [place], | [place], [place] | | | | | cell cancer | [place] | [address] Phone: | | | | | of right | [address] | [phone] | | | | | lung | Phone: | Fax: | | | | | Procedures | [phone] | [phone] | | | | | [address] | Fax: | | | | | | | [phone] | | +--------+--------+ + + + + Encounter Details +--------+ + + + + | Date | Type | Department | Care Team | Description | +--------+ + + + + | 03/26/ | Hospital | [facility] | Milton Salazar | Non-small cell | | 2019 | Encounter | [facility] | MD [address] | cancer of right lung | | | | [facility] [address] | [address] [place] | (HCC); Papillary | | | | [address] [place] | [place] [address] | thyroid carcinoma | | | | [place] [address] | [phone] | (HCC) | | | | [phone] | | | +--------+ + + + [...] + + + | Blood Pressure | 129/82 | 03/26/2020 2:18 PM | | | | | PDT | | + + + + + | Pulse | 106 | 03/26/2020 2:18 PM | | | | | PDT | | + + + + + | Temperature | 37.1 C (98.8 F) | 03/26/2020 2:18 PM | | | | | PDT | | + + + + + | Respiratory Rate | 16 | 03/26/2020 2:18 PM | | | | | PDT | | + + + + + | Oxygen Saturation | 98% | 03/26/2020 2:18 PM | | | | | PDT | | + + + + + | Inhaled Oxygen | - | - | | | Concentration | | | | + + + + + | Weight | 82.6 kg (182 lb 1.6 | 03/26/2020 2:18 PM | | | | oz) | [...] dexamethasone | Take 1 tablet by | 10 | 0 | 03/22/20 | | | (DECADRON) 2 MG | mouth daily (with | tablet | | 20 | 0 | | tablet | breakfast). | | | | | + + + +---------+ + + documented as of this encounter Progress Notes Amanda Mckenna CMA - 03/26/2020 3:00 PM PDTREVIEW OF SYSTEMS Constitutional: Denies high fevers, shaking chills, anorexia, vomiting, or night sweats. Appetite without changes. Moderate fatigue reported. States appetite has been on the lower side. Nausea continues, managed with Ondansetron. Weight dec' d from 83.2 kg to 82.6 kg [facility] e 03/22/2020. Ear, Nose, Mouth, Throat: Denies odynophagia, dysphagia, or tinnitus. Cardiovascular: Denies shortness of breath, dyspnea on exertion, chest pain, palpitations o r orthopnea. Respiratory: Denies cough, hemoptysis, or sputum production. Gastrointestinal: Denies abdominal pain, constipation, diarrhea, melena, or bright red bloo d per rectum. Genitourinary: Denies hematuria or dysuria. Musculoskeletal: Pt reports generalized joint pain - ongoing. Neurologic: Denies numbness/tingling of the extremities. States vision in the left eye has been foggy. Daily intense headaches reported. Endocrine: Denies peripheral edema or heat/cold intolerance. Hematologic: Denies spontaneous bruising or bleeding. Integumentary: Denies rash, wounds or other skin concerns. Pain: Headache at a 5/10 today. Currently taking Ibuprofen for pain, " takes the edge off. Pain can get as high as a 8/10 low as a 5/10. Tolerable pain level: 3 >10 Note: here for follow up My chart: active uMilton jackson MD - 03/26/2020 3:00 PM PDTFormatting of this note might be different from the origi nal. Hem-Onc Progress Note [facility] Pt. Name/Age/: Olena Rider 59 y.o. 1960 Med. Record Number: [id number] Date of admission: 03/26/2020 Assessment and plan: 1. Non-small cell lung cancer, RLL, Nov, 2016 Adenocarcinoma with mucinous features pT3 (two separate foci, 1.3, 1.0 cm), pN1, M0 StageIIIA S/p VATS RLL, Dec, 2016, Dr. 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 Luis Felipe Pugh, July, 4. 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 We began by trying to put o ptimistic assessment given the patient's systemic staging indicated no evidence of metastati c disease and patient's brain tumor an isolated event which we believe will be controlled wi th stereotactic radiation. Patient aware that she will need continued follow-up and monitor ing particularly of the GIZZARD PULLER using MRI as often as quarterly. This area will likely remain p rincipal area of concern going forward. Discussion today recalling patient's earlier hereditary cancer predilection testing then de monstrating the presence of a variant of unknown significance. We had previously discussed our inability to be able to predict how one variant may or may not represent a pathologic mu tation as there is no means for functional testing of the derived protein, in this case Axin 2, a kevin regulator in the Wnt beta catenin pathway. This indicates at least the possibility that the gene product has oncogenic capability. It may however be some time before large e nough density of cases allows us to make such an extrapolation. This however may be importa nt as future therapies may be able to target such an abnormality. In the meantime however we are asking an appeal to patient's insurance to allow next genera tion sequencing to further explore for potential oncogenic mutations. We will also repeat e arlier immunologic testing or calling patient's tumor being relatively poor expresser of PDL 1 but that this may be up regulated at sites of metastasis. Patient will follow-up in the cancer Center in approximately 4 weeks in which time we anticipate some of these results alexis l be available for further discussion. Subjective: The patient chart and medications were reviewed in detail and the patient was seen and exam ined. Olena Rider is a 59 y.o. female returns today for medical oncology follow-up because of relapse of lung cancer. Patient today just completing a program of stereotactic brain radiation following discovery of an isolated relapse in the central nervous system involving the subependymoma of the rig ht ventricle. This proved to be a challenging area for biopsy which was achieved by neurosu andrea colleagues, Dr. Da Silva revealing the unexpected finding of likely cerebral metastasis from patient's earlier lung cancer. Immunohistochemical testing demonstrating markers assoc iated with GI cancer probably reflecting a phenomena of lineage plasticity. Brain radiation therapy causing headaches and patient begun on a short course oral dexamethasone. She victor hugo ins both fatigue but also discouraged with regard to latest development. Patient has delgado d 1 cancer after another for over the past 3 years leaving her with a feeling of discouragem ent and she wonders today about her long-term prognosis. She describes grandchildren who sh e very much would like to see grow up. PSH: Reviewed, no changes to admission H&P. Review of Systems: Constitutional: Denies high fevers, shaking chills, anorexia, vomiting, or night sweats. Appetite without changes. Moderate fatigue reported. States appetite has been on the lower side. Nausea continues, managed with Ondansetron. Weight dec' d from 83.2 kg to 82.6 kg [facility] e 03/22/2020. Ear, Nose, Mouth, Throat: Denies odynophagia, dysphagia, or tinnitus. Cardiovascular: Denies shortness of breath, dyspnea on exertion, chest pain, palpitations o r orthopnea. Respiratory: Denies cough, hemoptysis, or sputum production. Gastrointestinal: Denies abdominal pain, constipation, diarrhea, melena, or bright red bloo d per rectum. Genitourinary: Denies hematuria or dysuria. Musculoskeletal: Pt reports generalized joint pain - ongoing. Neurologic: Denies numbness/tingling of the extremities. States vision in the left eye has been foggy. Daily intense headaches reported. Endocrine: Denies peripheral edema or heat/cold intolerance. Hematologic: Denies spontaneous bruising or bleeding. Integumentary: Denies rash, wounds or other skin concerns. Pain: Headache at a 5/10 today. Currently taking Ibuprofen for pain, " takes the edge off. Pain can get as high as a 8/10 low as a 5/10. Tolerable pain level: 3 >10 Review of systems as above otherwise negative Scheduled Medications: Continuous Infusions: PRN Meds:. Allergy: Allergies Allergen Reactions Morphine Anaphylaxis and Other (See Comments) Patient states she has had no issues with Dilaudid or oxycodone. Adhesive & Tape Rash Skin breakdown Metal [Nickel] Rash Skin breakdown Morphine And Related Other (See Comments) "unknown reaction - trouble breathing after hysterectomy" Objectives: Temp: 37.1 C (98.8 F) BP: 129/82 Pulse: 106 Resp: 16 SpO2: 98 % on Min/Max Temp past 24 hours:Temp Av.7 C (98.1 F) Min: 36.3 C (97.3 F) Max: 3 7.1 C (98.8 F) No intake or output data in the 24 hours ending 03/26/20 1422 Wt. Admission: Weight: 82.6 kg (182 lb 1.6 oz) Wt. Current: Weight: 82.6 kg (182 lb 1.6 oz) Physical Exam: Exam: General: The patient is alert and oriented. No acute distress. Psychiatric: Normal mood and affect. Diagnostic studies: Electronically signed by: Milton Salazar MD, 03/26/2020 2:22 PM [facility] TIME SPENT 25 MIN. > 50% AT BEDSIDE, WITH FAMILY/PATIENT IN CARE AND ALUM PLANT SUPERVISOR ON UNIT AND CO ORDINATION OF CARE Portions of this chart may have been created with ralali voice recognition software. Occasi onal wrong-word or [...] [address] | | | | | | [place], [place] | | | | | | [id number] | | | | | | | | +--------+ + + + + documented as of this encounter Procedures + +--------+ + + + | Procedure Name | Priori | Date/Time | Associated Diagnosis | Comments | | | ty | | | | + +--------+ + + + | PATHOLOGY - EXTERNAL | | 04/05/2020 | | Results for this | | SCAN | | 12:00 AM | | procedure are in the | | | | PDT | | results section. | + +--------+ + + + documented in this encounter Results PATHOLOGY - EXTERNAL SCAN (04/05/2020 12:00 AM PDT) + + + | Narrative | Performed At | + + + | Ordered by an | | | unspecified provider. | | + + + documented in this encounter Visit Diagnoses + + | Diagnosis | + + | Non-small cell cancer of right lung (HCC) | + + | Papillary thyroid carcinoma (HCC) Malignant neoplasm of thyroid gland | + + documented in this encounter
--- OUTSIDE RECORDS SUMMARY | ~2020-07-17 | XMS | Encounter Summary ---
Demographics + + + | Address | [address] | | | [place] [address] | + + + | Home Phone [...] Team Providers + +------+ + | Care Buffing Wheel Former Automatic Name | Role | Phone | + [...] + + | 03/26/ | Hospital | [facility] | Deni Hassan | Secondary | | 2020 | Encounter | [facility] | MD [place] [address] | adenocarcinoma of | | | | [facility]COLOGY CLINIC [address] | [facility] [place] | brain (HCC) (Primary | | | | [address] | [phone] | Dx) | | | | [place] [address] | | | | | | [phone] | | | +--------+ + + + [...] + + + | Blood Pressure | 122/75 | 03/26/2020 2:07 PM | | | | | PDT | | + + + + + | Pulse | 108 | 03/26/2020 2:07 PM | | | | | PDT | | + + + + + | Temperature | 36.3 C (97.3 F) | 03/26/2020 2:07 PM | | | | | PDT | | + + + + + | Respiratory Rate | 16 | 03/26/2020 2:07 PM | | | | | PDT | | + + + + + | Oxygen Saturation | 98% | 03/26/2020 2:07 PM | | | | | PDT | | + + + + + | Inhaled Oxygen | - | - | | | Concentration | | | | + + + + + | Weight | 82.6 kg (182 lb 1.6 | 03/26/2020 2:07 PM | | | | oz) | [...] documented as of this encounter Progress Notes Deni Hassan MD - 03/26/2020 11:30 AM PDTFormatting of this note might be differen t from the original. Radiation Oncology: SBRT/SRS Daily Treatment Note Diagnosis: ICD-10-CM ICD-9-CM 1. 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 This re gimen will consist of 3 fractions. Preparation for SBRT Treatment Treatment planning was performed in advance of this SBRT treatment delivery. The isodose pl an consists of numerous beam arrangements that are arranged to deliver a high-focal dose to the target with steep dose gradients to surrounding normal tissue. Prior to this treatment, the physicist and radiation therapist analyzed the set-up for pot ential collisions of the apparatus with the patient, treatment couch, or other devices and t he appropriate modifications were made. QA was performed by Franklin Majano M.S. Pre-Treatment Assessment Today is treatment 3 of 3 prescribed fractions. The dose to date is 1800 cGy. The planned total dose to be delivered today is 900 cGy. Procedure Summary The patient was escorted to the treatment room and the therapist conducted a timeout, pe r protocol, which is documented in the record. The therapist positioned and immobilized the patient in the prescribed treatment positio n on the treatment table, exactly reproducing the position established during simulation. The physicist was available to assist in verifying the patient's positional setup. Imaging Summary Patient's treatment ferrari were simulated at a prior encounter. The imaging process began with IGRT cone beam imaging. II verified that the internal iso center in the reconstructed 3D volume is positioned appropriately in reference to the observ ed tumor location in accordance with the previously designed treatment plan. Additional imaging consisted of Exactrack matching. These images were compared to the a pproved DRRs and all required adjustments were made. I personally verified the patient's pos ition and all treatment parameters. All images are date and time stamped. The following method, used to account for respiratory motion or other types of patient m otion, was used real time observation.. During the treatment delivery the patient position was continuously monitored. If the p atient coughed or shifted position, the treatment was interrupted and the patient was reloca lized. Procedure Summary I remained available throughout the delivery of the radiation treatment. I managed the ex ecution of the treatment and made real time adjustments in response to patient motion, targe t movement, or equipment issues to ensure accuracy and safety. Plan of Care The plan of care is to continue radiation treatment as designed. Deni Hassan M.D. Ph.D. Radiation Oncologist Department of Radiation Oncology [facility] Office: [phone] signed by Deni Hassan MD at 03/26/2020 3:26 PM PDTdocumented in this encounter Plan of [...] [place] | | | | | | [id number] | | | | | | | | +--------+ + + + + documented as of this encounter Visit Diagnoses + + | Diagnosis | + + | 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
--- OUTSIDE RECORDS SUMMARY | ~2020-07-17 | XMS | Encounter Summary ---
Demographics + + + | Address | [address] | | | [place] [address] | + + + | Home Phone [...] + + + | Author | [facility] | | | and [place] | + + + | Organization | [facility] | | [...] Team Providers + +------+ + | Care Loss Prevention Investigator Name | Role | Phone | + [...] | | | (ICD-9-CM) - | [address] [place] | | | | | Non-small | [place], | [place], [place] | | | | | cell cancer | [place] | [address] Phone: | | | | | of right | [address] | [phone] | | | | | lung | Phone: | Fax: | | | | | Procedures | [phone] | [phone] | | | | | [address] | Fax: | | | | | | | [phone] | | +--------+--------+ + + + + Encounter Details +--------+ + + + + | Date | Type | Department | Care Team | Description | +--------+ + + + + | 10/03/ | Hospital | [facility] | Marie Milton | Primary malignant | | 2019 | Encounter | [facility] | MD [facility] | neoplasm of female | | | | [facility] [address] [place] | breast (HCC) | | | | [address] [place] | [place] [address] | (Primary Dx) | | | | [place] [address] | [phone] | | | | | [phone] | | | +--------+ + + + [...] + + + | Blood Pressure | 150/81 | 10/03/2019 3:18 PM | | | | | PST | | + + + + + | Pulse | 82 | 10/03/2019 3:18 PM | | | | | PST | | + + + + + | Temperature | 36.5 C (97.7 F) | 10/03/2019 3:18 PM | | | | | PST | | + + + + + | Respiratory Rate | 16 | 10/03/2019 3:18 PM | | | | | PST | | + + + + + | Oxygen Saturation | 100% | 10/03/2019 3:18 PM | | | | | PST | | + + + + + | Inhaled Oxygen | - | - | | | Concentration | | | | + + + + + | Weight | 86.8 kg (191 lb 5.8 | 10/03/2019 3:18 PM | | | | oz) | PST | | + + + + + | Height | - | - | | + + + + + | Body Mass Index | 29 | 08/08/2019 3:00 PM | | | [...] +---------+ + + | calcium carbonate | Chew and swallow 1 | | 0 | | | | (TUMS) 500 mg | tablet as needed. | | | | 0 | | chewable tablet | | | [...] + + +---------+ + + | | Apply to most | 30 g | 1 | 09/27/20 | | | lidocaine-prilocaine | painful area of | | | 19 | 0 | | (EMLA) cream | breast up to 5 times | | | | | | | a day. Do not | | | | | | | cover entire breast. | | | | | + + [...] encounter Progress Notes Milton Salazar MD - 10/03/2019 3:40 PM PSTFormatting of this note might be diff erent from the original. Hem-Onc Progress Note [facility] Pt. Name/Age/: Olena Levint 59 y.o. 1960 Med. Record Number: [id number] Date of admission: 10/03/2019 Assessment and plan: 1. Non-small cell lung [...] grade pT1c pN 0(sn) ER+(99% , strong), IA+(60%, strong), Her2 non-amplified (FISH ratio 1.06) Status post left lumpectomy, sentinel lymph node biopsy, Dr. Luis Felipe Pugh, July, Counseling session today acknowledging potential cause and effect relationship between anti estrogen therapy and aggravating underlying hypertension. Given ongoing stress patient curr ently under and symptomatic radiation dermatitis have suggested continuation of hold up on t herapy indicating no immediate urgency to resume. We will regroup at the beginning of the c year an attempt to resume Subjective: The patient chart and medications were reviewed in detail and the patient was seen and exam ined. Olena Rider is a 59 y.o. female returns today ostensibly to check initial tolerance for a program of antiestrogen therapy because of early stage breast cancer. Interim history of hold up in exemestane following development of hypertension occurring ea rlier in the midst of patient's radiation oncology. Diastolic pressures at that time reachi ng as high as 120 mmHg prompting interruption of exemestane therapy and then subsequent impr ovement. Patient admits that she is also under considerable stress both with resumption of her work, her dog which recently swallowed a kitchen utensil and now is undergoing gastric s urgery for its removal. 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 She is almost at the completion of her breast radiation therapy but is experiencing considerable radiation dermatitis causing pain that makes it difficult for her to sleep. PSH: Reviewed, no changes to admission H&P. [...] US GUIDED BREAST BIOPSY RIGHT - Location: [facility] BREAST BIOPSY Right 07/06/2019 Procedure: US GUIDED BREAST BIOPSY RIGHT - Location: [facility] COLECTOMY HYSTERECTOMY THYROIDECTOMY Review of Systems: Constitutional: Denies high fevers, shaking chills, anorexia, nausea, vomiting, weight loss , or night sweats. Appetite without changes. Intermittent nausea reported. Not sleeping wel l. Ear, Nose, Mouth, Throat: Denies odynophagia, dysphagia, or tinnitus. Cardiovascular: Denies shortness of breath, dyspnea on exertion, chest pain, palpitations o r orthopnea. Respiratory: Denies cough, hemoptysis, or sputum production. Gastrointestinal: Denies abdominal pain, constipation, diarrhea, melena, or bright red bloo d per rectum. Genitourinary: Denies hematuria or dysuria. Musculoskeletal: Denies joint pain or tenderness. Unchanged arthritic aches and pains. Neurologic: Denies headache, visual changes, or numbness/tingling of the extremities. Endocrine: Denies peripheral edema or heat/cold intolerance. Hematologic: Denies spontaneous bruising or bleeding. Integumentary: Denies rash, wounds or other skin concerns. Pain: Right axilla pain at a 8/10. Last rxtx will be tomorrow. Note: Her for follow up and labs. Review of systems as above otherwise negative [...] carbonate (TUMS) 500 mg chewable tablet Take 1 tablet by mouth as needed. exemestane (AROMASIN) 25 MG tablet Take 1 [...] patch Place 1 patch onto the skin. lidocaine-prilocaine (EMLA) cream Apply to most painful area of breast up to 5 times a day. Do not cover entire breast. 30 g 1 metoprolol tartrate (LOPRESSOR) 50 mg tablet Take 1 tablet by mouth 2 times daily for 3 0 days. (Patient taking differently: Take 50 mg by mouth Daily.) 60 tablet 0 Multiple Vitamins-Minerals (MULTIVITAMIN ADULT [...] Objectives: Temp: 36.5 C (97.7 F) BP: 150/81 Pulse: 82 Resp: 16 SpO2: 100 % on Min/Max Temp past 24 hours:Temp Av.5 C (97.7 F) Min: 36.5 C (97.7 F) Max: 3 6.5 C (97.7 F) No intake or output data in the 24 hours ending 10/03/19 1536 Wt. Admission: Weight: 86.8 kg (191 lb 5.8 oz) Wt. Current: Weight: 86.8 kg (191 lb 5.8 oz) Physical Exam: Exam: General: The patient is alert and oriented. No acute distress. Psychiatric: Normal mood and affect. Diagnostic studies: Electronically signed by: Milton Salazar MD, 10/03/2019 3:36 PM [facility] TIME SPENT 20 MIN. > 50% AT BEDSIDE, WITH FAMILY/PATIENT IN CARE AND PHOTOCOMPOSING KEYBOARD OPERATOR ON UNIT AND CO ORDINATION OF CARE Portions of this chart may have been created with [employer] voice recognition software. Occasi onal wrong-word or sound-alike substitutions may have occurred due to the inherent cervantes itations of voice recognition software. Please read the chart carefully and recognize, using context, where these substitutions have occurred. Amanda Perrin CMA - 10/03/2019 3:40 PM PSTREVIEW O F SYSTEMS Constitutional: Denies high fevers, shaking chills, anorexia, nausea, vomiting, weight loss , or night sweats. Appetite without changes. Intermittent nausea reported. Not sleeping wel l. Ear, Nose, Mouth, Throat: Denies odynophagia, dysphagia, or tinnitus. Cardiovascular: Denies shortness of breath, dyspnea on exertion, chest pain, palpitations o r orthopnea. Respiratory: Denies cough, hemoptysis, or sputum production. Gastrointestinal: Denies abdominal pain, constipation, diarrhea, melena, or bright red bloo d per rectum. Genitourinary: Denies hematuria or dysuria. Musculoskeletal: Denies joint pain or tenderness. Unchanged arthritic aches and pains. Neurologic: Denies headache, visual changes, or numbness/tingling of the extremities. Endocrine: Denies peripheral edema or heat/cold intolerance. Hematologic: Denies spontaneous bruising or bleeding. Integumentary: Denies rash, wounds or other skin concerns. Pain: Right axilla pain at a 8/10. Last rxtx will be tomorrow. Note: Her for follow up and labs. My chart: Active documented in this encounter Plan of Treatment +--------+ + + + + | Date | Type | Specialty | Care Team | Description | +--------+ + + + + | 11/22/ | Appointment | Radiation Oncology | Susie Montemayor | | | 2020 | | | MD Jared [address] | | | | | | [place] | | | | | | [address] | | | | | | | | +--------+ + + + + documented as of this encounter Procedures + +--------+ + + + | Procedure Name | Priori | Date/Time | Associated Diagnosis | Comments | | | ty | | | | + +--------+ + + + | IMAGING REPORT - | | 07/06/2019 | | Results for this | | EXTERNAL SCAN | | 12:00 AM | | procedure are in the | | | | PDT | | results section. | + +--------+ + + + | IMAGING REPORT - | | 07/06/2019 | | Results for this | | EXTERNAL SCAN | | 12:00 AM | | procedure are in the | | | | PDT | | results section. | + +--------+ + + + | IMAGING REPORT - | | 06/29/2019 | | Results for this | | EXTERNAL SCAN | | 12:00 AM | | procedure are in the | | | | PDT | | results section. | + +--------+ + + + | LABS - EXTERNAL SCAN | | 06/28/2019 | | Results for this | | | | 12:00 AM | | procedure are in the | | | | PDT | | results section. | + +--------+ + + + documented in this encounter Results IMAGING REPORT - EXTERNAL SCAN (07/06/2019 12:00 AM PDT) + + + | Narrative | Performed At | + + + | Ordered by an | | | unspecified provider. | | + + + IMAGING REPORT - EXTERNAL SCAN (07/06/2019 12:00 AM PDT) + + + | Narrative | Performed At | + + + | Ordered by an | | | unspecified provider. | | + + + IMAGING REPORT - EXTERNAL SCAN (06/29/2019 12:00 AM PDT) + + + | Narrative | Performed At | + + + | Ordered by an | | | unspecified provider. | | + + + LABS - EXTERNAL SCAN (06/28/2019 12:00 AM PDT) + + + | [...]
--- OUTSIDE RECORDS SUMMARY | ~2020-07-17 | XMS | Encounter Summary ---
Demographics + + + | Address | [address] | | | [place] [address] | + + + | Home Phone | | + + + | Preferred Language | Unknown | + + + | Marital Status | Single | + + + | Gnosticism Affiliation | Unknown | + + + | Race | White | + + + | Ethnic Group | Not or | + + + Author + + + | Author | [facility] | | | and [place] | + + + | Organization | [facility] | | | [...] Team Providers + +------+ + | Care Sintering Plant Supervisor Name | Role | Phone | + +------+ + | Zuleyka Martínez | PCP | | + +------+ + Encounter Details +--------+ + + + + | Date | Type | Department | Care Team | Description | +--------+ + + + + | 09/18/ | Orders Only | [facility] | [facility]ie Montemyaor | | | 2019 | | [facility] | MD Jared [address] | | | | | [facility] [address] | [place], [place] | | | | | [address] [place] | [address] | | | | | [place] [address] | | | | | | [phone] | | | +--------+ + + + [...] [place] | | | | | | [address] | | | | | | | | +--------+ + + + + documented as of this encounter Visit Diagnoses Not on filedocumented in this encounter"
--- OUTSIDE RECORDS SUMMARY | ~2020-07-17 | XMS | Encounter Summary ---
Demographics + + + | Address | [address] | | | [place] [address] | + + + | Home Phone [...] Team Providers + +------+ + | Care Talcer Name | Role | Phone | + +------+ + | Zuleyka Martínez | PCP | | + +------+ + Reason for Visit Evaluate & Treat (Routine) +--------+--------+ + + + + | Status | Reason | Specialty | Diagnoses / | Referred By | Referred To | | | | | Procedures | Contact | Contact | +--------+--------+ + + + + | Closed | | Medical | Diagnoses | [facility] | Salazar, | | | | Oncology / | C34.91 | Medical | Milton | | | | Oncology | (ICD-10-CM) | Oncology | MD Bebeto | | | | | - 162.9 | Clinic [address] | [address] | | | | | (ICD-9-CM) - | [address] | [address] [place] | | | | | Non-small | [place], | [place], [place] | | | | | cell cancer | [place] | [address] Phone: | | | | | of right | [address] | [phone] | | | | | lung | Phone: | Fax: | | | | | Procedures | [phone] | [phone] | | | | | [address] | Fax: | | | | | | | [phone] | | +--------+--------+ + + + + Encounter Details +--------+ + + + + | Date | Type | Department | Care Team | Description | +--------+ + + + + | 02/11/ | Hospital | [facility] | Milton Salazar | Brain tumor (HCC) | | 2020 | Encounter | [facility] | MD [place] [address] | (Primary Dx) | | | | ONCOLOGY CLINIC [address] | [address] | | | | | [address] | [place] [address] | | | | | [place] [address] | [phone] | | | | | [phone] | | | +--------+ + + + [...] encounter Progress Notes Milton Salazar MD - 02/12/2020 8:20 AM PDTFormatting of this note might be diff erent from the original. Hem-Onc Progress Note [facility] Pt. Name/Age/: Olena Rider 59 y.o. 1960 Med. Record Number: [id number] Date of admission: 02/12/2020 Assessment and plan: 1. Non-small cell lung [...] grade pT1c pN 0(sn) ER+(99% , strong), VA+(60%, strong), Her2 non-amplified (FISH ratio 1.06) Status post left lumpectomy, sentinel lymph node biopsy, Dr. Luis Felipe Pugh, July, Counseling session today with patient as a telephone visit to review results of PET CT scan . This study which I have personally viewed did not demonstrate any potential foci that wou ld require repeat biopsy but instead a 6 mm subpleural focus in the right lung which will re quire follow-up and monitoring. Impression from PET/CT scan as the patient likely remaining in remission from earlier thyroid, breast and lung cancers which have been resected. We discussed patient's earlier consultation with neurosurgeon, Dr. Da Silva with report of di fficulty with surgery in this region because of its relative and accessibility and accompany ing risk of intra-operative bleeding. Patient recalls hearing that there may be to other mo urosurgeons in our region who would be capable of doing such but that is uncertain. Third p athway would be to begin follow-up and surveillance monitoring of this lesion but which risk s possibility of further progression. Our visit ended today by arranging a follow-up telephone visit to report on a conversation I will have with Dr. Da Silva. Subjective: The patient chart and medications were reviewed in detail and the patient was seen and exam ined. Olena Rider is a 59 y.o. female who is interviewed today as a telephone visit and fo llow-up reporting out results of PET CT scan in further discussing the possibilities of brai n biopsy for enhancing brain lesion. Patient had been seen earlier in the month before through the emergency room where imaging studies including a CT scan of the brain demonstrated the presence of a focus of enhancement in the body of the right lateral ventricle which by MRI of brain demonstrates partial cysti c enhancement. Concern at that time with regard to development of metastasis from one of pavan plummer's earlier primary tumors or the possibility of a primary brain malignancy such as sube pendymoma at least a possibility. In the time since that initial evaluation patient continues to experience daily headaches. She acknowledges some level of nausea but this has been insufficient to stop patient from c ontinuing work. PSH: Reviewed, no changes to admission H&P. Review of Systems: Constitutional: Denies high fevers, shaking chills, anorexia, vomiting or night sweats. Ap petite without changes. Dec'd energy. Nausea is daily, managed w/ Ondansetron. States appeti te has been low. States some weight loss unsure how much. Ear, Nose, Mouth, Throat: Denies odynophagia, dysphagia, or tinnitus. Cardiovascular: Denies shortness of breath, dyspnea on exertion, chest pain, palpitations o r orthopnea. Respiratory: Denies cough, hemoptysis, or sputum production. Gastrointestinal: Denies abdominal pain, constipation, diarrhea, melena, or bright red bloo d per rectum. Genitourinary: Denies hematuria or dysuria. Musculoskeletal: Pt reports generalized joint pain - ongoing.Worsened joint pain. Neurologic: Denies numbness/tingling of the extremities. Daily headaches continue. States vision has been fuzzy. Endocrine: Denies peripheral edema or heat/cold intolerance. Hematologic: Denies spontaneous bruising or bleeding. Integumentary: Denies rash, wounds or other skin concerns. Pain: States right shoulder pain and headache, pain level: 4/10. Tolerable pain level: 4>10 . Review of systems as above otherwise negative Scheduled Medications: Continuous Infusions: PRN Meds:. Allergy: Allergies Allergen Reactions Morphine Anaphylaxis and Other (See Comments) Morphine And Related Other (See Comments) "unknown reaction - trouble breathing after hysterectomy" Objectives: on Min/Max Temp past 24 hours:No data recorded No intake or output data in the 24 hours ending 02/12/20 0819 Wt. Admission: Wt. Current: Physical Exam: Exam: Diagnostic studies: EXAM DESCRIPTION PET/CT REGISTRY SKULL TO MID THIGH CLINICAL INFORMATION: Malignant neoplasm of lung and breast Subsequent PET Scan COMPARISON: CT TREATMENT PLAN COMPLEX (08/29/2019); CT CHEST W CONTRAST (08/08/2019); CT CHEST ABDOMEN PELVIS W CONTRAST (08/18/2018); PET CT SKULL BASE TO MID THIGH (06/17/2016); NM THYROID CANCER METASTATIC SCAN WHOLE BODY (10/21/2016); CT CHEST WO CONTRAST (09/23/2016); PROCEDURE: The patient was evaluated with a dedicated PET/CT scanner. Upon arrival, the patient's fasting fingerstick blood glucose level was 91 mg/dL. 14.3 mCi of 18-FDG was injected IV at 1126 hours, and 71 minutes post-injection CT attenuation-correction images and then subsequent PET images (attenuation-corrected and emission-only images) were obtained from base of skull to thigh. PET, noncontrast-attenuation CT, and fused PET/CT images were then reformatted and reviewed in the axial, sagittal, coronal and 3-D maximum intensity projection planes. FINDINGS: HEAD: Brain: The distribution of FDG activity in the visualized brain is physiologic. Paranasal Sinuses: No significant abnormalities to the extent seen. NECK: Neck: Is a 12 x 7 mm lymph node 63 in the right neck level 2, SUV 3.7, stable in size and essentially unchanged in uptake. No lymphadenopathy in the neck. No new areas of neck uptake. Thyroid: Interval thyroidectomy. Resolution of the previous abnormal right and left thyroid uptake. CHEST: Lungs, Pleura and Airways: Interval right lower lobectomy. Narrowing of the origin of the right middle lobe bronchus 4/126, nearly occluded. Strandy changes are seen throughout the anterior and posterior right lower lung zone. New 6 mm nodular density in the anterior subpleural right lung base 4/129, SUV 2.4. New medial left apical strandy change 95 measuring 12 x 3 mm, without uptake. Enlarging bulla in the medial left lung base measuring 4.8 by 4.4 cm 4/135. Mediastinum: No significant pericardial, great vessel, or esophageal abnormality. No mediastinal mass. New clips in the right axilla. New poorly defined complex fluid collection in the lateral right breast 4/144 without internal uptake. Minimal peripheral uptake, SUV up to 2.2. New mild skin thickening of the right breast. Lymph Nodes: There are no pathologically enlarged or FDG-avid lymph nodes in the chest. ABDOMEN: Liver and Biliary: No biliary abnormality. No abnormal metabolic activity in the liver. Pancreas, Spleen and Adrenals: Stable hypodense 10 mm nodule in the left adrenal /164, Hounsfield unit attenuation -24, without uptake, likely due to adenoma. Kidneys: No hydronephrosis or calculus. ABDOMEN AND PELVIS: Bowel: Mild distal esophageal uptake SUV up to 5.9, which can be physiologic or reactive. No esophageal mass on CT. Bowel and mesenteries otherwise unremarkable, with physiologic uptake. Vessels: Mild atherosclerotic change with mild ectasia of the abdominal aorta measuring up to 2.8 cm AP dimension 4/194 in the mid abdominal aorta, slightly more prominent. Retroaortic left renal vein. Lymph Nodes: No pathologically enlarged or FDG-avid lymph nodes. 10 x 4 mm left inguinal lymph node 260, SUV 1.7, previously 12 x 7 mm, SUV 5.5. Peritoneum and Retroperitoneum: No intraperitoneal free air, ascites or peritoneal mass. No significant retroperitoneal abnormality. PELVIS: Genitourinary: No hydroureter. No ureteral or bladder calculus. Hysterectomy. Body [place]: No masses, hernias, or hemorrhage. Bones: Right total hip prosthesis, new from the previous study. Spondylotic changes of the spine and left hip. No suspicious bone uptake. IMPRESSION: Summary of Target Lesions: 1. New 6 mm nodular density in the anterior subpleural right lung base 129, SUV 2.4. 2. New medial left apical strandy change measuring 12 x 3 mm, without uptake. 3. Interval resection of the thyroid, with no recurrent abnormal thyroid bed uptake. 4. 10 x 4 mm left inguinal lymph node /260, SUV 1.7, previously 12 x 7 mm, SUV 5.5. Other PET/CT Findings: 1. Thyroidectomy. 2. Right lower lobectomy, with significant narrowing of the origin of the right middle lobe bronchus. Pulmonary consultation is recommended. 3. Complex fluid collection lateral right breast measuring 3.2 x 2.2 cm with minimal peripheral uptake, SUV up to 2.2, likely postsurgical. Mammographic and sonographic follow-up is recommended. Comments: 1. Interval thyroidectomy, with resolution of the previous thyroid nodules and uptake. No recurrent thyroid malignancy is seen. 2. Interval right lower lobectomy, with anterior right basilar 6 mm nodule with minimal uptake, probably reactive. Progress PET-CT evaluation as a precaution is recommended. 3. Previous abnormal uptake in the left inguinal lymph node has Resolved. Electronically signed by: Milton Salazar MD, 02/12/2020 8:19 AM [facility] TIME SPENT 25 MIN. > 50% AT BEDSIDE, WITH FAMILY/PATIENT IN CARE AND AQUATICS COORDINATOR ON UNIT AND CO ORDINATION OF CARE Portions of this chart may have been created with [employer] voice recognition software. Occasi onal wrong-word or sound-alike substitutions may have occurred due to the inherent cervantes itations of voice recognition software. Please read the chart carefully and recognize, using context, where these substitutions have occurred. Amanda Wagner [facility] - 02/12/2020 8:20 AM PDTREVIEW O F SYSTEMS Constitutional: Denies high fevers, shaking chills, anorexia, vomiting or night sweats. Ap petite without changes. Dec'd energy. Nausea is daily, managed w/ Ondansetron. States appeti te has been low. States some weight loss unsure how much. Ear, Nose, Mouth, Throat: Denies odynophagia, dysphagia, or tinnitus. Cardiovascular: Denies shortness of breath, dyspnea on exertion, chest pain, palpitations o r orthopnea. Respiratory: Denies cough, hemoptysis, or sputum production. Gastrointestinal: Denies abdominal pain, constipation, diarrhea, melena, or bright red bloo d per rectum. Genitourinary: Denies hematuria or dysuria. Musculoskeletal: Pt reports generalized joint pain - ongoing. Worsened joint pain. Neurologic: Denies numbness/tingling of the extremities. Daily headaches continue. States vision has been fuzzy. Endocrine: Denies peripheral edema or heat/cold intolerance. Hematologic: Denies spontaneous bruising or bleeding. Integumentary: Denies rash, wounds or other skin concerns. Pain: States right shoulder pain and headache, pain level: 4/10. Tolerable pain level: 4>10 . Note: Telephonic appointment, call placed, transferred call into Dr. Negrete office. My chart: Declined d ocumented in this encounter Plan of Treatment +--------+ + + + + | Date | Type | Specialty | Care Team | Description | +--------+ + + + + | 11/22/ | Appointment | Radiation Oncology | Susie Montemayor | | | 2020 | | | MD [address] | | | | | | [place], [place] | | | | | | [address] | | | | | | | | +--------+ + + + + documented as of this encounter Visit Diagnoses + + | Diagnosis | + + | Brain tumor (HCC) - Primary Neoplasm of unspecified nature of brain | + + documented in this encounter
--- OUTSIDE RECORDS SUMMARY | ~2020-07-17 | XMS | Encounter Summary ---
Demographics + + + | Address | [address] | | | [place] [address] | + + + | Home Phone | | + + + | Preferred Language | Unknown | + + + | Marital Status | Single | + + + | Scientology Affiliation | Unknown | + + + | Race | White | + + + | Ethnic Group | Not or | + + + Author + + + | Author | [facility] | | | and [place] | + + + | Organization | [facility] | | [...] Team Providers + +------+ + | Care Assembler Fitter Name | Role | Phone | + +------+ + | Zuleyka Martínez | PCP | | + +------+ + Encounter Details +--------+ + + + + | Date | Type | Department | Care Team | Description | +--------+ + + + + | 09/22/ | Orders Only | [facility] | Susie Montemayor | Lung nodule (Primary | | 2016 | | [facility] RAD[facility] | MD Jared [address] | Dx) | | | | ONCOLOGY [address] [place], [place] | | | | | [place], | [address] | | | | | [place] [address] | | | | | | [phone] | | | +--------+ + + + [...] [place] | | | | | | [address] | | | | | | | | +--------+ + + + + documented as of this encounter Visit Diagnoses + + | Diagnosis | + + | Lung nodule - Primary Solitary pulmonary nodule | + + documented in this encounter"
--- OUTSIDE RECORDS SUMMARY | ~2020-07-17 | XMS | Encounter Summary ---
Demographics + + + | Address | [address] | | | [place] [address] | + + + | Home Phone [...] Author + + + | Author | [facility] | | | and [place] | + + + | Organization | [facility] | | [...] Team Providers + +------+ + | Care Quick Print Operator Name | Role | Phone | + +------+ + | Zuleyka Martínez | PCP | | + +------+ + Encounter Details +--------+ + + + + | Date | Type | Department | Care Team | Description | +--------+ + + + + | 09/29/ | Orders Only | [facility] | Susie Montemayor | | | 2015 | | [facility] | MD Jared [address] | | | | | ONCOLOGY [address] [place], [place] | | | | | [place], | [address] | | | | | [place] [address] | | | | | | [phone] | | | +--------+ + + + [...] [place] | | | | | | [id number] | | | | | | | | +--------+ + + + + documented as of this encounter Visit Diagnoses Not on filedocumented in this encounter"
--- OUTSIDE RECORDS SUMMARY | ~2020-07-17 | XMS | Encounter Summary ---
Demographics + + + | Address | [address] | | | [place] [address] | + + + | Home Phone | | + + + | Preferred Language | Unknown | + + + | Marital Status | Single | + + + | Mormon Affiliation | Unknown | + + + | Race | White | + + + | Ethnic Group | Not or | + + + Author + + + | Author | [facility] | | | and [place] | + + + | Organization | [facility] | | | [...] Team Providers + +------+ + | Care Floral Manager Name | Role | Phone | [...] of | MD [address] | | | | | thyroid | [address] | [place], | | | | | gland (HCC) | [place], | [place] [address] | | | | | Procedures | [place] [address] | Phone: | | | | | [place] | Phone: | [phone] | | | | | INJECTION, | [phone] | Fax: | | | | | THYROTROPIN | Fax: | [phone] | | | | | ALPHA, 0. 9 | [phone] | | | | | | MG, [...] + + | 10/13/ | Hospital | [facility] | Susie Montemayor | Malignant neoplasm | | 2016 | Encounter | MED CTR CHEMO | MD Jared [address] | of thyroid gland | | | | INFUSION [address] [place], [place] | (HCC) | | | | [place], | [address] | | | | | [place] [address] | | | | | | [phone] | | | +--------+ + + + [...] | | | | | | [place] [facility] [place] | | | | | | [address] | | | | | | | [...]
--- OUTSIDE RECORDS SUMMARY | ~2020-07-17 | XMS | Encounter Summary ---
Demographics + + + | Address | [address] | | | [place] [address] | + + + | Home Phone | | + + + | Preferred Language | Unknown | + + + | Marital Status | Single | + + + | Adventism Affiliation | Unknown | + + + | Race | White | + + + | Ethnic Group | Not or | + + + Author + + + | Author | [facility] | | | and [place] | + + + | Organization | [facility] | | | [...] Providers + +------+ + | Care Public Aid Eligibility Assistant Name | Role | Phone | + +------+ + | Zuleyka Martínez | PCP | | + +------+ + Encounter Details +--------+ + + + + | Date | Type | Department | Care Team | Description | +--------+ + + + + | 08/08/ | Abstract | [facility] | Clarisa Amanda Unger, | | | 2018 | | [facility] MED[facility] | WOOD ENGRAVER | | | | | ONCOLOGY CLINIC [address] | | | | | | [address] | | | | | | [place] [address] | | | | | | [phone] | | | +--------+ + + + [...]
--- OUTSIDE RECORDS SUMMARY | ~2020-07-17 | XMS | Encounter Summary ---
Demographics + + + | Address | [address] | | | [place] [address] | + + + | Home Phone | | + + + | Preferred Language | Unknown | + + + | Marital Status | Single | + + + | Mosque Affiliation | Unknown | + + + | Race | White | + + + | Ethnic Group | Not or | + + + Author + + + | Author | [facility] | | | and [place] | + + + | Organization | [facility] | | | [...] Team Providers + +------+ + | Care Multimedia Manager Name | Role | Phone | [...] | | | | Procedures | [place] [address] | [place] | | | | | CT Chest w | Phone: | [place], | | | | | Contrast | [phone] | [place] [address] | | | | | | Fax: | Phone: | | | | | | [phone] | [phone] | | | | | | | Fax: | | | | | | | [phone] | + +--------+ + + + + Diagnostic/Screening (Routine) + +--------+ + + + + | Status | Reason | Specialty | Diagnoses / | Referred By | Referred To | | | | | Procedures | Contact | Contact | + +--------+ + + + + | Pending | | Radiology | Diagnoses | [place], | [facility] | | Review | | | Non-small | Susie M, | [facility] | | | | | cell cancer | MD [address] | [place] | | | | | of right | [address] | MEDICAL | | | | | lung (HCC) | [place], | CENTER [address] | | | | | Secondary | [place] [address] | [place] | | | | | adenocarcino | Phone: | [place], | | | | | ma of brain | [phone] | [place] [address] | | | | | (HCC) | Fax: | Phone: | | | | | Procedures | [phone] | [phone] | | | | | MRI Brain w | | Fax: | | | | | wo Contrast | | [phone] | | | | | 3D | | | + +--------+ + + + + Diagnostic/Screening (Urgent) + +--------+ + + + + | Status | Reason | Specialty | Diagnoses / | Referred By | Referred To | | | | | Procedures | Contact | Contact | + +--------+ + + + + | Pending | | Radiology | Diagnoses | Riegert, | [facility] | | Review | | | | Susie M, | [facility] | | | | | Radiculopath | MD [address] | [place] | | | | | y affecting | [address] | MEDICAL | | | | | upper | [place], | CENTER [address] | | | | | extremity | [place] [address] | [place] | | | | | Procedures | Phone: | [place], | | | | | MRI Cervical | [phone] | [place] [address] | | | | | Spine w wo | Fax: | Phone: | | | | | Contrast | [phone] | [phone] | | | | | | | Fax: | | | | | | | [phone] | + +--------+ + + + + Reason for Visit [...] | | | cell cancer | [place] [address] | [address] | | | | | of right | [address] | [address] | | | | | lung (HCC) | [place], [place] | [place], | | | | | Secondary | [address] | [place] [address] | | | | | adenocarcino | Phone: | Phone: | | | | | ma of brain | [phone] | [phone] | | | | | (HCC) | Fax: | Fax: | | | | | Thyroid | [phone] | [phone] | | | | | Procedures | | | | | | | [facility] OFFICE | | | | | | [...] + + | 07/16/ | Hospital | [facility] | Susie Montemayor | Non-small cell | | 2019 | Encounter | [facility] | MD Jared [address] | cancer of right lung | | | | ONCOLOGY CLINIC [address] [place] | (HCC) (Primary Dx); | | | | [place] | [id number] | 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 | | | | [phone] | | brain (HCC); | | | [...] 1 | capsule | | 20 | | | capsule | tab twice a [...] tablet by | 90 | 0 | 07/16/ | | | (ROXICODONE) 5 mg | mouth every 6 hours | tablet | | 20 | | | tablet | as needed For [...] | | | | | | ST [place], [place] | | | | | | [address] | | | | | | | | +--------+ + + + + + +---------+--------+ + + | Name | Type | Priori | Associated Diagnoses | Order Schedule | | | | ty | | | + +---------+--------+ + + | MRI Cervical Spine w | Imaging | [facility] | Radiculopathy | Expected: | | wo Contrast | | | affecting upper | 07/16/2020, Expires: | | | | | extremity | 07/16/2021 | + +---------+--------+ + + | MRI [...] nos | + + documented in this encounter"
--- OUTSIDE RECORDS SUMMARY | ~2020-07-17 | XMS | Encounter Summary ---
Demographics + + + | Address | [address] | | | [place] [address] | + + + | Home Phone [...] + + + | Author | [facility] | | | and [place] | + + + | Organization | [facility] | | | [...] Team Providers + +------+ + | Care Field Service Poultry Technician Name | Role | Phone | [...] | Radiology | Diagnoses | | [facility] | | | | | Malignant | Salazar, | [address] | | | | | neoplasm of | [place] | [place], | | | | | lower lobe | MD Bebeto | [facility] | | | | | of right | [address] | [address] | | | | | lung (HCC) | [place] | Phone: | | | | | Procedures | [place] | [phone] | | | | | MRI Brain w | [id number] | Fax: | | | | | wo Contrast | Phone: | [phone] | | | | | | [phone] | | | | | | | Fax: | | | | | | | [phone] | | +--------+--------+ + + + + Reason for Visit Diagnostic/Screening (Routine) +--------+--------+ + + + + | Status | Reason | Specialty | Diagnoses / | Referred By | Referred To | | | | | Procedures | Contact | Contact | +--------+--------+ + + + + | Closed | | Radiology | Diagnoses | | [facility] | | | | | Malignant | Salazar, | [address] | | | | | neoplasm of | [place] | [place], | | | | | lower lobe | MD Bebeto | [place] | | | | | of right | [address] | [address] | | | | | lung (HCC) | [place] | Phone: | | | | | Procedures | [place], [place] | [phone] | | | | | MRI Brain w | [address] | Fax: | | | | | wo Contrast | Phone: | [phone] | | | | | | [phone] | | | | | | | Fax: | | | | | | | [phone] | | +--------+--------+ + + + + Encounter Details +--------+ + + + + | Date | Type | Department | Care Team | Description | +--------+ + + + + | 01/21/ | Hospital | [facility] | Milton Salazar | Malignant neoplasm | | 2020 | Encounter | [facility] MRI [address] | [place], MD [address] | of lower lobe of | | | | [address] [place], | [address] [place] | right lung (HCC) | | | | [place] [address] | [place] [address] | | | | | [phone] | [phone] | | | | | | | [...] + + + +---------+ + + | tobramycin | Place 1 drop into | | 0 | 01/02/20 | | | (TOBREX) 0.3% | the left eye 3 times | | | 20 | 0 | | ophthalmic solution | daily. For 7 days | | | | | + + + +---------+ + + | triamcinolone | Apply 1 Application | | 0 | 01/01/20 | | | (KENALOG) 0.1% cream | topically 2 times | | | 20 | 0 | | | daily. For 7 days to | | | | | | | upper left eye lid | | | | | + + [...] | | | | | | [facility] [place] | | | | | | [id number] | | | | | | | | +--------+ + + + + documented as of this encounter Procedures + +--------+ + + + | Procedure Name | Priori | Date/Time | Associated Diagnosis | Comments | | | ty | | | | + +--------+ + + + | MRI BRAIN W WO | Routin | 01/22/2020 | Malignant neoplasm | Results for this | | CONTRAST | e | 8:11 AM | of lower lobe of | procedure are in the | | | | PDT | right lung (HCC) | results section. | + +--------+ + + + documented in this encounter Results MRI Brain w wo Contrast (01/22/2020 8:11 AM PDT) + + | Specimen | + + | | + + + + + | Impressions | Performed At | + + + | There is a partially cystic enhancing mass along the right | [facility] | | lateral ventricle. In a patient with a known malignancies this could | | | be metastasis. Given the location in the minimal adjacent | | | vasogenic edema and unusual periventricular subependymal tumor is a | | | possibility. Germinoma and primary brain malignancy are felt to be | | | less likely. 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 | | | FINDINGS: There is a mass along the right caudate body and | | | midportion of the lateral ventricle. This is mildly T2 and FLAIR | | | hyperintense. There is a rim-enhancing cystic component. There is | | | a larger more solidly enhancing nodule or component. The lesion | | | measures approximately 1.5 x 1.5 x 1.5 cm. There is one small round | | | area susceptibility weighted artifact in the medial portion of the | | | lesion. No areas of restricted diffusion. There are a few | | | periventricular T2 and FLAIR hyperintensities in the right cerebral | | | hemisphere and the niya. No additional areas of abnormal | | | enhancement. There is enhancement within the cavernous and dural | | | venous sinuses consistent patency. There is enhancement within the | | | the major and screening of vessels consistent with patency. There | | | is a 4 mm saccular aneurysm off the supraclinoid right internal | | | carotid artery. There is no mass, mass effect, or midline shift. | | | There are no abnormal extra-axial fluid collections. The | | | ventricles are normal in size and configuration. The major | | | intracranial flow voids are visualized. The mastoid air cells | | | are clear. The paranasal sinuses are clear. The globes and | | | retroconal contents are intact and are unremarkable. There is area | | | of artifact in the left upper eyelid. The posterior | | | nasopharyngeal and oropharyngeal soft tissues are unremarkable. The | | | scalp and skull are intact and are unremarkable. | | + + + + + | Procedure Note | + + | Christopher, Rad Results In - 01/22/2020 10:42 AM PDT EXAM: MRI BRAIN W WO CONTRAST dated | | 01/22/2020 7:35 AMHISTORY: Brain/B[employer]ING CENTER MANAGER neoplasm, stagingCOMPARISON: CT ORBIT | | 01/04/2020TECHNIQUE: Multiplanar, multisequence imaging of the brain was performed in the3 | | T MR scanner prior to and following the uneventful intravenous administrationof 8 cc of | | Gadavist contrast. FINDINGS: There is a mass along the right caudate body and | | midportion of the lateralventricle. This is mildly T2 and FLAIR hyperintense. There is | | a rim-enhancingcystic component. There is a larger more solidly enhancing nodule or | | component. The lesion measures approximately 1.5 x 1.5 x 1.5 cm. There is one small | | roundarea susceptibility weighted artifact in the medial portion of the lesion.No areas | | of restricted diffusion. There are a few periventricular T2 and FLAIR hyperintensities | | in the rightcerebral hemisphere and the niya. No additional areas of abnormal | | enhancement. There is enhancement within the cavernous and dural venous sinuses | | consistentpatency. There is enhancement within the the major and screening of | | vesselsconsistent with patency. There is a 4 mm saccular aneurysm off the | | supraclinoidright internal carotid artery.There is no mass, mass effect, or midline | | shift. There are no abnormalextra-axial fluid collections. The ventricles are normal | | in size andconfiguration. The major intracranial flow voids are visualized. The | | mastoid air cells are clear. The paranasal sinuses are clear. The globesand retroconal | | contents are intact and are unremarkable. There is area ofartifact in the left upper | | eyelid.The posterior nasopharyngeal and oropharyngeal soft tissues are unremarkable. The | | scalp and skull are intact and are unremarkable. IMPRESSION: There is a partially | | cystic enhancing mass along the right lateral ventricle. In a patient with a known | | malignancies this could be metastasis. Given thelocation in the minimal adjacent | | vasogenic edema and unusual periventricularsubependymal tumor is a possibility. | | Germinoma and primary brain malignancy arefelt to be less likely.4 mm supraclinoid | | saccular aneurysm involving the right internal carotid artery.Dictated and Signed by: | | Milton Dewitt MD Electronically signed: 01/22/2020 10:39 AM | |There is no mass, mass effect, or midline shift. There are no abnormal | |extra-axial fluid collections. The ventricles are normal in size and | |configuration. The major intracranial flow voids are visualized. | | | |The mastoid air cells are clear. The paranasal sinuses are clear. The globes | |and retroconal contents are intact and are unremarkable. There is area of | |artifact in the left upper eyelid. | | | |The posterior nasopharyngeal and oropharyngeal soft tissues are unremarkable. | |The scalp and skull are intact and are unremarkable. | | | |IMPRESSION: | | | |There is a partially cystic enhancing mass along the right lateral ventricle. | |In a patient with a known malignancies this could be metastasis. Given the | |location in the minimal adjacent vasogenic edema and unusual periventricular | |subependymal tumor is a possibility. Germinoma and primary brain malignancy are | |felt to be less likely. 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 | | | |Dictated and Signed by: Milton Dewitt MD | | Electronically signed: 01/22/2020 10:39 AM | + + + +---------+ + [...] in this encounter Administered Medications + +--------+ +-------+------+------+ | Medication Order | MAR | Action | Dose | Rate | Site | | | Action | Date | | | | + +--------+ +-------+------+------+ | gadobutrol (GADAVIST) injection | Given | 01/22/20 | 8 mLs | | | | 8 mL 8 mL, Intravenous, ONCE | | 20 8:11 | | | | | PRN, Other, Starting 01/22/20 | | AM PDT | | | | | at 0811, For 1 dose, MRI | | | | | | + +--------+ +-------+------+------+ +---+---+ | | | +---+---+ documented in this encounter"
--- OUTSIDE RECORDS SUMMARY | ~2020-07-17 | XMS | Encounter Summary ---
Demographics + + + | Address | [address] | | | [place] [address] | + + + | Home Phone | | + + + | Preferred Language | Unknown | + + + | Marital Status | Single | + + + | Alevism Affiliation | Unknown | + + + [...] Team Providers + +------+ + | Care Traffic Investigator Name | Role | Phone | [...] + + | 01/25/ | Telephone | [facility] | Lemuel Da Silva DO | Neurosurgery | | 2020 | | NEUROSURGERY [address] | [address] | Appointment | | | | [address] | [address] | | | | | [place], [place] | [place] [address] | | | | | [address] | [phone] | | | | | [phone] | | | +--------+ + + + [...] Board Certified Neurosurgeon / Chief of Neurosurgery [facility] Office docum ented in this [...] [place] | | | | | | [id number] | | | | | | | | +--------+ + + + + documented as of this encounter Visit Diagnoses Not on filedocumented in this encounter"
--- OUTSIDE RECORDS SUMMARY | ~2020-07-17 | XMS | Encounter Summary ---
Demographics + + + | Address | [address] | | | [place] [address] | + + + | Home Phone | | + + + | Preferred Language | Unknown | + + + | Marital Status | Single | + + + | Yarsanism Affiliation | Unknown | + + + | Race | White | + + + | Ethnic Group | Not or | + + + Author + + + | Author | [facility] | | | and [place] | + + + | Organization | [facility] | | [...] Team Providers + +------+ + | Care Egg Tester Name | Role | Phone | + [...] | | Non-small | Salazar, | [address] | | | | | cell cancer | Milton | [place], | | | | | of right | [place] | [place] [address] | | | | | lung (HCC) | [address] | Phone: | | | | | Procedures | [address] | [phone] | | | | | CT Chest w | [place] | Fax: | | | | | Contrast | [address] | [phone] | | | | | | Phone: | | | | | | | [phone] | | | | | | | Fax: | | | | | | | [phone] | | +--------+--------+ + + + + Reason for Visit + + + | Reason | Comments | + + + | Follow-up | | + + + Encounter Details +--------+ + + + + | Date | Type | Department | Care Team | Description | +--------+ + + + + | 12/09/ | Hospital | [facility] | Milton Salazar | Non-small cell | | 2018 | Encounter | [facility] | [place] [address] | cancer of right lung | | | | [facility] [address] | (HCC) (Primary Dx); | | | | [address] | [place] [address] | Thyroid cancer | | | | [place] [address] | [phone] | (HCC) | | | | [phone] | | | +--------+ + + + [...] + + + | Blood Pressure | 123/78 | 12/09/2017 10:55 AM | | | | | PST | | + + + + + | Pulse | 79 | 12/09/2017 10:55 AM | | | | | PST | | + + + + + | Temperature | 36.3 C (97.3 F) | 12/09/2017 10:55 AM | | | | | PST | | + + + + + | Respiratory Rate | 18 | 12/09/2017 10:55 AM | | | | | PST | | + + + + + | Oxygen Saturation | 98% | 12/09/2017 10:55 AM | | | | | PST | | + + + + + | Inhaled Oxygen | - | - | | | Concentration | | | | + + + + + | Weight | 89.8 kg (197 lb 15.6 | 12/09/2017 10:55 AM | | | | oz) | PST | | + + + + + | Height | - | - | | + + + + + | Body Mass Index | 30.1 | 11/04/2016 9:00 AM | | | [...] encounter Progress Notes Milton Salazar MD - 12/09/2017 11:17 AM PSTFormatting of this note might be diff erent from the original. Hem-Onc Progress Note [facility] Pt. Name/Age/: Olena Rider 57 y.o. 1960 Med. Record Number: [id number] Date of admission: 12/09/2017 Assessment and plan: 1. Non-small cell lung cancer, RLL, Nov, 2016 Adenocarcinoma with mucinous features pT3 (two separate foci, 1.3, 1.0 cm), pN1, M0 StageIIIA S/p VATS RLL, Dec, 2016, Dr. Luis Felipe Mon EGFR mutation negative, FISH neg: ROS, ALK rearrangement PD-L1 low expression (3%) 2. Papillary carcinoma of the thyroid S/p thyroidectomy, LN excision S/p radio-iodine abllation, Oct, 2016 Counseling session today first offering congratulations on patient's complete smoking cessa tion. We acknowledged the ongoing exposure to attempt patient which itself often leads to r elapse of smoking habit and families where patient subjected to others with continuing use. We also acknowledged the diminished pulmonary reserve the patient may have in the face of e arlier lobectomy. Recall that this was a lower lobectomy which has a substantial effect on cardiovascular anaerobic capability. Nonetheless we've encouraged patient to continue ongoi ng efforts at increasing ambulation aiming towards hiking ability later this summer . Plans for surveillance CT scan outlined and we will schedule this any time from now unti l patient's upcoming visit in spring. Subjective: The patient chart and medications were reviewed in detail and the patient was seen and exam ined. Olena Rider is a 57 y.o. female returns today for follow-up monitoring a remission o f non-small cell lung cancer. Interim history noting patient herself developing influenza-like illness earlier last month . 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 She describes a one-week illness recalling that she to have had obtained flu vaccin ation but seemingly without protection. Patient also notices that she has not been able to regain her stamina and exercise capabili ty that she recalls from prior to surgery. She wonders if she is going to be able to resume her hiking which she very much enjoys later this spring. She describes shortness of breath with exertion and this has not improved despite successful complete discontinuation of smok ing. Patient acknowledges the 10th patient to relapse always available as friends and famil y are all smokers. PSH: Reviewed, no changes to admission H&P. Past Medical History: Diagnosis Date Anxiety Insomnia Malignant neoplasm of thyroid gland (HCC) PONV (postoperative nausea and vomiting) Review of Systems: Constitutional: Reports energy level is "better than it was, not as good as I want it to be ". Reports "when I had the flu a couple weeks ago I ran a fever, shaking chills, and nausea" , resolved now. Reports night sweats and hot flashes continues, "has gotten a lot worse over the last couple months". Reports that they have increased in frequency and intensity. Yevgeniy es anorexia, vomiting, weight loss. Appetite without changes. Ear, Nose, Mouth, Throat: Denies odynophagia, dysphagia, or tinnitus. Cardiovascular: Reports dyspnea with exertion, continues, unchanged. Denies shortness of br eath, chest pain, palpitations or orthopnea. Respiratory: Reports had a cough and sputum production with flu a couple of weeks ago, reso lved. Denies hemoptysis. Gastrointestinal: Denies abdominal pain, constipation, diarrhea, melena, or bright red bloo d per rectum. Genitourinary: Denies hematuria or dysuria. Musculoskeletal: Reports arthritic joint pain in knees and hands, continues, unchanged. Neurologic: Reports daily headaches, has worsened since last visit. "I had a lot of headach es, went to the eye doctor, got new glasses, but I am still having headaches". Denies visual changes or numbness/tingling of the extremities. Endocrine: Denies peripheral edema or heat/cold intolerance. Hematologic: Denies spontaneous bruising or bleeding. Integumentary: Denies rash, wounds or other skin concerns. Pain: Reports bilateral knee and hand joint pain 3/10 on scale of 0-10, goal <4/10. Review of systems as above otherwise negative [...] Take 2 tablets by mouth as needed. CHANTIX 0.5 MG tablet TAKE 1 TABLET BY MOUTH TWICE DAILY TO HELP STOP SMOKING 60 tablet 0 levothyroxine (SYNTHROID) 125 mcg tablet Take 125 mcg by mouth every morning (before br eakfast). Multiple Vitamins-Minerals (MULTIVITAMIN ADULT PO) Take by mouth. ondansetron (ZOFRAN ODT) 4 mg disintegrating tablet Take 4 mg by mouth every 8 hours as needed for Nausea. traMADol (ULTRAM) 50 mg tablet Take 50 mg by mouth every 6 hours as needed for Pain. zolpidem (AMBIEN) 10 mg tablet Take 10 mg by mouth nightly as needed for Sleep. No current facility-administered medications on file prior to encounter. Objectives: Temp: 36.3 C (97.3 F) BP: 123/78 Pulse: 79 Resp: 18 SpO2: 98 % on Min/Max Temp past 24 hours:Temp Av.3 C (97.3 F) Min: 36.3 C (97.3 F) Max: 3 6.3 C (97.3 F) No intake or output data in the 24 hours ending 12/09/17 1117 Wt. Admission: Weight: 89.8 kg (197 lb 15.6 oz) Wt. Current: Weight: 89.8 kg (197 lb 15 .6 oz) Physical Exam: Exam: General: The patient [...] the Assessment and Plan. Recent Labs Lab 12/09/17 1012 WBC 7.5 HGB 12.8 HCT 38.0 PLT 252 Recent Labs Lab 12/09/17 1012 NA 139 K 3.9 CL 107 CO2 27 BUN 11 CREA 1.01 GLU 109 MG 1.8 CALCIUM 9.2 BILITOT 0.6 AST 19 ALT 16 ALKPHOS 63 ALBUMIN 3.8 Electronically signed by: Milton Salazar, 12/09/2017 11:17 [facility] TIME SPENT 20 MIN. > 50% AT BEDSIDE, WITH FAMILY/PATIENT IN CARE AND PAYROLL ACCOUNTING MANAGER ON UNIT AND CO ORDINATION OF CARE Portions of this chart may have been created with [place] voice recognition software. Occasi onal wrong-word or sound-alike substitutions may have occurred due to the inherent cervantes itations of voice recognition software. Please read the chart carefully and recognize, using context, where these substitutions have occurred. Abby Gutierrez RN - 12/09/2017 10:41 AM PSTREVIEW OF SYSTEMS Constitutional: Reports energy level is "better than it was, not as good as I want it to be ". Reports "when I had the flu a couple weeks ago I ran a fever, shaking chills, and nausea" , resolved now. Reports night sweats and hot flashes continues, "has gotten a lot worse over the last couple months". Reports that they have increased in frequency and intensity. Yevgeniy es anorexia, vomiting, weight loss. Appetite without changes. Ear, Nose, Mouth, Throat: Denies odynophagia, dysphagia, or tinnitus. Cardiovascular: Reports dyspnea with exertion, continues, unchanged. Denies shortness of br eath, chest pain, palpitations or orthopnea. Respiratory: Reports had a cough and sputum production with flu a couple of weeks ago, reso lved. Denies hemoptysis. Gastrointestinal: Denies abdominal pain, constipation, diarrhea, melena, or bright red bloo d per rectum. Genitourinary: Denies hematuria or dysuria. Musculoskeletal: Reports arthritic joint pain in knees and hands, continues, unchanged. Neurologic: Reports daily headaches, has worsened since last visit. "I had a lot of headach es, went to the eye doctor, got new glasses, but I am still having headaches". Denies visual changes or numbness/tingling of the extremities. Endocrine: Denies peripheral edema or heat/cold intolerance. Hematologic: Denies spontaneous bruising or bleeding. Integumentary: Denies rash, wounds or other skin concerns. Pain: Reports bilateral knee and hand joint pain 3/10 on scale of 0-10, goal <4/10. Note: Here for 3 month follow up and labs. My chart: Pending documented in this encounter Plan of Treatment +--------+ + + + + | Date | Type | Specialty | Care Team | Description | +--------+ + + + + | 11/22/ | Appointment | Radiation Oncology | Susie Montemayor | | | 2020 | | | MD [address] | | | | | | [place] | | | | | | [id number] | | | | | | | | +--------+ + + + + documented as of this encounter Procedures + +--------+ + + + | Procedure Name | Priori | Date/Time | Associated Diagnosis | Comments | | | ty | | | | + +--------+ + + + | THYROGLOBULIN | Routin | 12/09/2017 | Thyroid cancer | Results for this | | | e | 10:12 AM | (HCC) | procedure are in the | | | | PST | | results section. | + +--------+ + + + | CBC WITH | STAT | 12/09/2017 | Non-small cell | Results for this | | DIFFERENTIAL | | 10:12 AM | cancer of right lung | procedure are in the | | | | PST | (HCC) | results section. | + +--------+ + + + | TSH | Routin | 12/09/2017 | Thyroid cancer | Results for this | | | e | 10:12 AM | (HCC) | procedure are in the | | | | PST | | results section. | + +--------+ + + + | MAGNESIUM | STAT | 12/09/2017 | Non-small cell | Results for this | | | | 10:12 AM | cancer of right lung | procedure are in the | | | | PST | (HCC) | results section. | + +--------+ + + + | COMPREHENSIVE | STAT | 12/09/2017 | Non-small cell | Results for this | | METABOLIC PANEL | | 10:12 AM | cancer of right lung | procedure are in the | | | | PST | (HCC) | results section. | + +--------+ + + + documented in this encounter Results CT Chest w Contrast (03/11/2018 10:38 AM PDT) + + | Specimen | + + | | + + + + + | Narrative | Performed At | + + + | CT CHEST W CONTRAST 03/11/2018 10:33 AM HISTORY: surveillance of | [facility] | | resected ;lung cancer. COMPARISON: 08/17/2017 PROTOCOL: Axial | | | images of the chest were obtained after uneventful administration of | | | 75 mL Omnipaque 350. Coronal and sagittal reformations were acquired. | | | FINDINGS: LUNGS: Mild bibasilar scarring. Lungs are generally | | | clear. No evidence pneumothorax or pleural effusion. Stable | | | appearance of a large subpleural bleb along the medial aspect of the | | | left lower lobe. Stable postsurgical changes related to the right | | | lower lobe. Stable intraluminal density along the right mainstem | | | descending bronchus (series 4, image 66). Mild centrilobular | | | emphysematous changes. No suspicious mass or nodule identified. Stable | | | tiny 3 mm fissural nodule along the right major fissure, benign. | | | Stable small 3 mm nodule in the inferior left lingula, benign HEART: | | | The heart is of normal size. VASCULATURE: Aorta is normal in size | | | and without evidence of dissection or aneurysmal dilation. The | | | pulmonary arteries are unremarkable. Visualized venous structures are | | | patent. LYMPH NODES: Stable borderline prominence of a 10 mm right | | | hilar lymph node. Otherwise, no evidence of axillary, mediastinal, or | | | hilar lymphadenopathy. Stable small left axillary lymph nodes. | | | MEDIASTINUM: Trachea and esophagus are normal. Neck base is normal. | | | ABDOMEN: The upper abdomen demonstrates no acute findings. Stable | | | hypodensities are seen within the liver. Stable left adrenal adenoma. | | | SOFT TISSUES: Chest wall structures are normal. BONES: There are no | | | acute osseous abnormalities. Mild early multilevel thoracic | | | spondylosis. IMPRESSION - Stable post surgical changes related to | | | prior right lower lobectomy. No evidence of mediastinal | | | lymphadenopathy or new pulmonary nodules to suggest metastasis. | | | Dictated and Signed by: Chai Nguyen MD Electronically signed: | | | 03/11/2018 1:20 PM | | + + + + + | Procedure Note | + + | Christopher, Rad Results In - 03/11/2018 1:[address] CHEST W CONTRAST 03/11/2018 10:33 AM | | | | HISTORY: surveillance of resected ;lung cancer. | | | | COMPARISON: 08/17/2017 | | | | PROTOCOL: Axial images of the chest were obtained after uneventful | | administration of 75 mL Omnipaque 350. Coronal and sagittal reformations were | | acquired. | | | | FINDINGS: | | LUNGS: Mild bibasilar scarring. Lungs are generally clear. No evidence | | pneumothorax or pleural effusion. Stable appearance of a large subpleural bleb | | along the medial aspect of the left lower lobe. Stable postsurgical changes | | related to the right lower lobe. Stable intraluminal density along the right | | mainstem descending bronchus (series 4, image 66). Mild centrilobular | | emphysematous changes. No suspicious mass or nodule identified. Stable tiny 3 mm | | fissural nodule along the right major fissure, benign. Stable small 3 mm nodule | | in the inferior left lingula, benign | | HEART: The heart is of normal size. | | VASCULATURE: Aorta is normal in size and without evidence of dissection or | | aneurysmal dilation. The pulmonary arteries are unremarkable. Visualized venous | | structures are patent. | | LYMPH NODES: Stable borderline prominence of a 10 mm right hilar lymph node. | | Otherwise, no evidence of axillary, mediastinal, or hilar lymphadenopathy. | | Stable small left axillary lymph nodes. | | MEDIASTINUM: Trachea and esophagus are normal. Neck base is normal. | | ABDOMEN: The upper abdomen demonstrates no acute findings. Stable hypodensities | | are seen within the liver. Stable left adrenal adenoma. | | SOFT TISSUES: Chest wall structures are normal. | | BONES: There are no acute osseous abnormalities. Mild early multilevel thoracic | | spondylosis. | | | | IMPRESSION - | | Stable post surgical changes related to prior right lower lobectomy. | | | | No evidence of mediastinal lymphadenopathy or new pulmonary nodules to suggest | | metastasis. | | | | Dictated and Signed by: Chai Nguyen MD | | Electronically signed: 03/11/2018 1:20 PM | + + + +---------+ + + | Performing | Address | City/State/Zipcode | Phone Number | | Organization | | | | + +---------+ + + | [facility] | | | | + +---------+ + + TSH (12/09/2017 10:12 AM PST) + + + + + + | Component | Value | Ref Range | Performed | Pathologist | | | | | At | Signature | + + + + + + | TSH | 0.14 (L)Comment: This is | 0.45 - 5.33 | [facility] | | | | a third generation TSH | uIU/mL | [facility] | | | | test. | | MEDICAL | | | | [...] + + | [facility] | [address] | [place] | [phone] | | [facility] | | [address] | | | - LABORATORY | | | | + + + + + Thyroglobulin,Reflex (12/09/2017 10:12 AM PST) + + + + + + | Component | Value | Ref Range | Performed | Pathologist | | | | | At | Signature | + + + + + + | Thyroglobul | 0.3Comment: Reference | ng/mL | REFERENCE | | | in | Range:>17y: 1.5 - | | LAB [facility] | | | | 38.5According to the | | - BKR | | | | National Academy of | | | | | | Clinical | | | | | | Biochemistry,the | | | | | | reference interval for | | | | | | Thyroglobulin (TG) | | | | | | should berelated to | | | | | | euthyroid patients and | | | | | | not for patients | | | | | | whounderwent | | | | | | thyroidectomy. TG | | | | | | reference intervals for | | | | | | thesepatients depend on | | | | | | the residual mass of the | | | | | | thyroid tissueleft | | | | | | after surgery. | | | | | | Establishing a | | | | | | post-operative | | | | | | baselineis recommended. | | | | | | The assay quantitation | | | | | | limit is 0.1 ng/mL. | | | | + + + + + + | Antithyrogl | <1.0Comment: Reference | IU/mL | REFERENCE | | | obulin Ab | Range:<1.0 | | LAB [facility] | | | | Negative> or = 1.0 | | - BKR | | | | Positive | | | | | |> or = 1.0 Positive | | | | + + + + + + | Thyroglubul | CommentComment: Not | ng/mL | REFERENCE | | | in.Ser/Plas | applicable | | LAB [facility] | | | .QN.EMMANUEL | | | - BKR | | | (Ref) | | | | | + + + + + + + + | Specimen | + + | Blood | + + + + + | Narrative | Performed At | + + + | Performed at: 01 - [facility] [address] [place] [address], | REFERENCE LAB | | [place], [place] [id number] It Help Desk Manager: Jesus Chaves MD, | JAMEE GRIFFIN | | Phone: [phone] | | + + + + + + + + | Performing | Address | City/State/Zipcode | Phone Number | | Organization | | | | + + + + + | REFERENCE LAB | [address] | [place], [place] | [phone] | | [facility] | [facility] | [address] | | + + + + + Magnesium (12/09/2017 10:12 AM PST) + +-------+ + + + | Component | Value | Ref Range | Performed | Pathologist | | | | | At | Signature | + +-------+ + + + | Magnesium | 1.8 | 1.8 - 2.5 mg/dL | [facility] | | | | [...] + | [facility] | [address] | [place] | [phone] | | [facility] | | [address] | | | - LABORATORY | | | | + + + + + Comprehensive Metabolic Panel (12/09/2017 10:12 AM PST) + + + + + + | Component | Value | Ref Range | Performed | Pathologist | | | | | At | Signature | + + + + + + | Na | 139 | 136 - 149 | [facility] | | | | | mmol/L | [facility] | | | | [...] + + + | Anion Gap | 5 | 3 - 16 mmol/L | [facility] | | | | | | [facility] | | | | | | MEDICAL | | | | | | CENTER - | | | | | | LABORATORY | | + + + + + + | Glucose | 109 | 70 - 109 mg/dL | [facility] [...] + + + + | Creatinine | 1.01 | 0.60 - 1.30 | [facility] | | | | | mg/dL | [facility] | | | | | | MEDICAL | | | | | | CENTER - | | | | | | LABORATORY | | + + + + + + | eGFR, | 57 (L)Comment: | >=60 | [facility] | | | non- | GLOMERULAR FILTRATION | mL/min/1.73m2 | [facility] | | | Hungarian | RATE,ESTIMATED | | MEDICAL | | | | mL/min/1.02i2Xjux than | | CENTER - | | [...] + + + + | Calcium | 9.2 | 8.3 - 10.5 | [facility] | | | | | mg/dL | [facility] | | | | | | MEDICAL | | | | | | CENTER - | | | | | | LABORATORY | | + + + + + + | Albumin | 3.8 | 3.2 - 5.0 g/dL | [facility] | | | | | | [facility] | | | | | | [facility]ICAL | | | | | | CENTER - | | | | | | LABORATORY | | + + + + + + | Bilirubin | 0.6Comment: This is an | 0.1 - 1.5 [...] + + + + | Total | 6.4 | 6.0 - 7.8 g/dL | [facility] | | | Protein | | | [facility] | | | | | | MEDICAL | | | | | | CENTER - | | | | | | LABORATORY | | + + + + + + | AST | 19Comment: This is an | 10 - 42 [...] + + + + | Alkaline | 63Comment: This is an | 40 - 110 [...] + + + + | BUN/Creatin | 10.9 | | [facility] | | | ine [...] + | [facility] | [address] | [place] | [phone] | | [facility] | | [address] | | | - LABORATORY | | | | + + + + + CBC with Differential (12/09/2017 10:12 AM PST) + +-------+ + + + | Component | Value | Ref Range | Performed | Pathologist | | | | | At | Signature | + +-------+ + + + | White Blood | 7.5 | 4.0 - 11.0 K/uL | [facility] | | | Cells | | | [facility] | | | | | | MEDICAL | | | | | | CENTER - | | | | | | LABORATORY | | + +-------+ + + + | Red Blood | 4.19 | 3.70 - 5.20 | [facility] | | | Cells | | M/uL | [facility] | | | | | | MEDICAL | | | | | | CENTER - | | | | | | LABORATORY | | + +-------+ + + + | Hemoglobin | 12.8 | 11.5 - 16.0 | [facility] | | | | | g/dL | [facility] | | | | | | MEDICAL | | | | | | CENTER - | | | | | | LABORATORY | | + +-------+ + + + | Hematocrit | 38.0 | 34.0 - 47.0 % | [facility] | | | | | | [facility] | | | | | | MEDICAL | | | | | | CENTER - | | | | | | LABORATORY | | + +-------+ + + + | MCV | 90.7 | 83.0 - 101.0 fL | [facility] | | | | | | [facility] | | | | | | MEDICAL | | | | | | CENTER - | | | | | | LABORATORY | | + +-------+ + + + | MCH | 30.5 | 28.0 - 35.0 pg | [facility] | | | | | | [facility] | | | | | | [facility]ICAL | | | | | | CENTER - | | | | | | LABORATORY | | + +-------+ + + + | MCHC | 33.6 | 32.0 - 36.0 | [facility] | | | | | g/dL | [facility] | | | | | | MEDICAL | | | | | | CENTER - | | | | | | LABORATORY | | + +-------+ + + + | RDW-CV | 12.8 | <15.0 % | [facility] | | | | | | [facility] | | | | | | [facility]ICAL | | | | | | CENTER - | | | | | | LABORATORY | | + +-------+ + + + | Platelet | 252 | 140 - 440 K/uL | [facility] | | | Count | | | [facility] | | | | | | MEDICAL | | | | | | CENTER - | | | | | | LABORATORY | | + +-------+ + + + | MPV | 8.5 | fL | [facility] | | | | | | [facility] | | | | | | [facility]ICAL | | | | | | CENTER - | | | | | | LABORATORY | | + +-------+ + + + | % | 50.3 | 45.0 - 82.0 % | [facility] | | | Neutrophils | | | [facility] | | | | | | MEDICAL | | | | | | CENTER - | | | | | | LABORATORY | | + +-------+ + + + | % | 39.0 | 20.0 - 45.0 % | [facility] | | | Lymphocytes | | | [facility] | | | | | | MEDICAL | | | | | | CENTER - | | | | | | LABORATORY | | + +-------+ + + + | % Monocytes | 7.0 | 4.0 - 12.0 % | [facility] | | | | | | [facility] | | | | | | MEDICAL | | | | | | CENTER - | | | | | | LABORATORY | | + +-------+ + + + | % | 3.1 | 0.0 - 5.0 % | [facility] [...] +-------+ + + + | Absolute | 3.80 | 1.80 - 8.50 | [facility] | | | Neutrophils | | K/uL | [facility] | | | | | | MEDICAL | | | | | | CENTER - | | | | | | LABORATORY | | + +-------+ + + + | Absolute | 2.90 | 0.60 - 3.20 | [facility] | | | Lymphocytes | | K/uL | [facility] | | | | | | MEDICAL | | | | | | CENTER - | | | | | | LABORATORY | | + +-------+ + + + | Absolute | 0.50 | 0.00 - 1.00 | [facility] | | | Monocytes | | K/uL | [facility] | | | | [...] +-------+ + + + | Absolute | 0.00 [...] + | [facility] | [address] | [place] | [phone] | | [facility] | | [address] | | | - LABORATORY | | | | + + + + + documented in this encounter Visit Diagnoses + + | Diagnosis | + + | Non-small cell cancer of right lung (HCC) - Primary | + + | Thyroid cancer (HCC) Malignant neoplasm of thyroid gland | + + documented in this encounter
--- OUTSIDE RECORDS SUMMARY | ~2020-07-17 | XMS | Encounter Summary ---
Demographics + + + | Address | [address] | | | [place] [address] | + + + | Home Phone | | + + + | Preferred Language | Unknown | + + + | Marital Status | Single | + + + | Religion Affiliation | Unknown | + + + [...] Team Providers + +------+ + | [facility] Sales Manager Name | Role | Phone | + +------+ + | Zuleyka Martínez | PCP | | + +------+ + Encounter Details +--------+ + + + + | Date | Type | Department | Care Team | Description | +--------+ + + + + | 08/08/ | Hospital | [facility] | Susie Montemayor | | | 2019 | Encounter | [facility] | [place], [address] | | | | | ONCOLOGY [address] [place], [place] | | | | | [place], | [address] | | | | | [place] [address] | | | | | | [phone] | | | +--------+ + + + [...] [place] | | | | | | [address] | | | | | | | | +--------+ + + + + documented as of this encounter Visit Diagnoses Not on filedocumented in this encounter"
--- OUTSIDE RECORDS SUMMARY | ~2020-07-17 | XMS | Encounter Summary ---
Demographics + + + | Address | [address] | | | [place] [address] | + + + | Home Phone [...] [facility] [place] | | | and [place] | + [...] Team Providers + +------+ + | Care Animal Science Instructor Name | Role | Phone | [...] | | | | Diagnoses | | [place], | | | | | Brain mass | | DO Lemuel | | | | | Procedures | | [address] | | | | | [place] | | [address]IVE SU[address] | | | | | STEREOTACTIC | | B | | | | | BRAIN | | [place] | | | | | [place] | | [id number] | | | | | [place] | | Phone: | | | | | STEREOTACTIC | | [phone] | | | | | COMP ASSIST | | Fax: | | | | | | | [phone] | | | | | PROC,CRANIAL | [...] Description | +--------+---------+ + + + | 02/26/ | Surgery | [facility] | Lemuel Da Silva DO | Stereotactic biopsy | | 2019 | | [facility] | [address] | of right frontal | | | | OPERATING [address] | lesion. Possible | | | | [address] | [place] [address] | conversion to open | | | | [place], [place] | [phone] | | | | | [address] | | | | | | [phone] | | | +--------+---------+ + + + [...] + + + | Blood Pressure | 120/62 | 02/27/2020 6:30 AM | | | | | PDT | | + + + + + | Pulse | 79 | 02/27/2020 6:30 AM | | | | | PDT | | + + + + + | Temperature | 36.9 C (98.5 F) | 02/27/2020 6:30 AM | | | | | PDT | | + + + + + | Respiratory Rate | 18 | 02/27/2020 6:30 AM | | | | | PDT | | + + + + + | Oxygen Saturation | 100% | 02/27/2020 6:30 AM | | | | | PDT | | + + + + + | Inhaled Oxygen | - | - | | | Concentration | | | | + + + + + | Weight | 82.7 kg (182 lb 5.1 | 02/27/2020 6:30 AM | | | | oz) | PDT | | + + + + + | Height | 174 cm (5' 8.5") | 02/27/2020 6:30 AM | | | | | PDT | | + + + + + | Body Mass Index | 27.62 | 02/27/2020 6:30 AM | | | [...] documented as of this encounter Discharge Summaries Lemuel Da Silva DO - 02/28/2020 12:15 PM PDT Neurosurgery Discharge Summary [facility] Neurosurgery Provider: Lemuel Da Silva DO Date : 02/28/2020 12:15 PM Referring Provider: No ref. provider found Hospital Day: LOS: 1 day Date of Admission: 02/27/2020 Date of Discharge: 02/28/2020 Discharge Physician: Lemuel Da Silva DO Treatment Team: Final / Discharge Diagnoses: Patient Active Problem List Diagnosis Precordial pain Abnormal stress ECG with treadmill Cigarette smoker one half pack a day or less Insomnia Thyroid cancer Pneumothorax after biopsy Non-small cell cancer of right lung Adenoma of left adrenal gland Posttraumatic stress disorder Chronic nonmalignant pain Contusion of hip Diverticular disease of colon Dysphagia Encounter for therapeutic drug level monitoring Family history of breast cancer Hx of total hysterectomy Malignant neoplasm of lower lobe of right lung Papillary thyroid carcinoma Postoperative hypothyroidism Tobacco user Vitamin D deficiency Primary malignant neoplasm of female breast Periorbital cellulitis of left eye Blepharitis of eyelid of left eye Intracranial space-occupying lesion Brain mass Principal Problem: Brain mass Resolved Problems: * No resolved hospital problems. * Procedures: Procedure(s): Stereotactic biopsy of right frontal lesion. Possible conversion to open (Right) Past Medical History: Diagnosis Date Anxiety Brain mass 01/2020 unknown etiology Breast cancer (HCC) 08/2019 completed radiation 10/2019 GERD (gastroesophageal reflux disease) Headache 08/2019 Insomnia Joint pain Lung cancer (HCC) 2016 Malignant neoplasm of thyroid gland (HCC) 2016 PONV (postoperative nausea and vomiting) Past Surgical History: Procedure Laterality Date APPENDECTOMY BRAIN BIOPSY Right 02/27/2020 Procedure: Stereotactic biopsy of right frontal lesion. Possible conversion to open; Surg suzanne: Lemuel Da Silva DO; [place] [facility] BREAST BIOPSY Right 06/15/2019 Procedure: US GUIDED BREAST BIOPSY RIGHT - Location: [facility]TER[facility] IM[facility] BREAST BIOPSY Right 06/15/2019 Procedure: US GUIDED BREAST BIOPSY RIGHT - Location: [facility] BREAST BIOPSY Right 06/15/2019 Procedure: US GUIDED BREAST BIOPSY RIGHT - Location: [facility] EXTERNAL IMAGING BREAST BIOPSY Right 07/06/2019 Procedure: US GUIDED BREAST BIOPSY RIGHT - Location: [facility] EXTERNAL IMAGING COLECTOMY has large growth in colon - states was precancerous HYSTERECTOMY LOBECTOMY Right 2016 MASTECTOMY, PARTIAL Right THYROIDECTOMY No medications prior to admission. Allergies Allergen Reactions Morphine Anaphylaxis and Other (See Comments) Patient states she has had no issues with Dilaudid or oxycodone. Adhesive & Tape Rash Skin breakdown Metal [Nickel] Rash Skin breakdown Morphine And Related Other (See Comments) "unknown reaction - trouble breathing after hysterectomy" Brief History of Presentation: Patient ID 02/02/2020:Olena Grimes a 59 y.o.femalepresents to neurosurgery [facility] with chief complaint of newly diagnosed brain mass after incidentally found will patien t being treated for periorbital cellulitis. Patient with very complex oncologic history wi th thyroid breast and lung cancer under various stages of treatment patient with new mass wh ich is located just posterior to the right caudate patient denies any new loss of neurologic function no new weakness numbness no memory deficits patient does have headaches but unlike ly to be related to this mass described as pressure headaches which been going on for long. She feels that it may be related to needing to get her glasses adjusted. Patient has bee n evaluated by the oncology team was referred to neurosurgery for consideration of biopsy ve rsus resection of this mass patient had a PET scan scheduled to evaluate overall tumor burde n has been recently been losing weight but canceled that PET scan due to the management for this orbital cellulitis. 02/27/2020 <- OR date - Patient underwent surgical intervention with Procedure(s): Stereotactic biopsy of right frontal lesion. Possible conversion to open - without complica tion post op CT without bleeding 02/28/2020 12:15 PM - Patient agrees and is ready for disposition home with family. No new s ymptoms routine post operative course DISCHARGE EXAM Vital Signs: Last: Last 24hrs Vitals: 02/28/20 0800 BP: 111/67 Pulse: 70 Resp: 20 Temp: 37.2 C (98.9 F) Temp: [36.5 C (97.7 F)-37.2 C (98.9 F)] 37.2 C (98.9 F) Pulse: [70-114] 70 Resp: [18-20] 20 BP: (100-113)/(64-78) 111/67 Intake/Output Summary (Last 24 hours) at 02/28/2020 1215 Last data filed at 02/28/2020 0500 Gross per 24 hour Intake Output 1825 ml Net -1825 ml @RRIOCURSHIFT2@ 02/25 1901 - 02/27 0700 In: 1100 [I.V.:1100] Out: 2370 [Urine:2350] General: Pleasant, awake, alert, and oriented. In no acute distress, well developed, well n ourished. Speech fluent and approriate Skin:Skin color, texture, turgor normal. No rashes or lesions. HEENT: Normocephalic atraumatic Muscle Strength: Right Left Upper Extremity: 5/5 5/5 Lower Extremity: 5/5 5/5 Wound:Clean, dry, and intact. No evidence of wound breakdown or infection Sensation:Normal reported sensation to light touch Cerebellar: [id number] intact, no dysdiadokinesia or dysmetria noted Significant Diagnostic Studies: Recent Results (from the past 360 hour(s)) CT Head wo Contrast Narrative CT HEAD WITHOUT CONTRAST CLINICAL INFORMATION: Ventricular intracranial shunt displacement. Status post biopsy. COMPARISON: MRI BRAIN W WO CONTRAST (01/22/2020); CT ORBIT SELLA POST FOSSA IAC W CONTRAST (01/04/2020); US HEAD NECK SOFT TISSUE (12/06/2019); PET CT SKULL BASE TO MID THIGH (02/06/2020); PROCEDURE: Axial images were obtained through the head without IV contrast. Multiplanar reformations were obtained from the acquisition data. At least one of the following CT dose optimization techniques were used: Automated exposure control; Adjustment of mA and/or kV according to patient size; Use of iterative reconstruction technique. FINDINGS: Brain: There is no uncal or tonsillar herniation present. No midline shift is noted. Mildly hyperdense lesion is demonstrated along the periventricular white matter adjacent to the right lateral ventricle measuring 1.3 x 1.1 cm. The brain maintains normal shah-white differentiation. Ventricles and extra-axial fluid spaces: The ventricular system is normal in size. Some gas is seen along the frontal horn bilaterally from recent surgery. Minimal pneumocephalus is noted near the vertex. Paranasal sinuses and mastoid air cells: Normal. Calvarium and extracranial soft tissues: The patient is status post a right frontal mariel hole. Orbits: Imaged portions of the orbits are normal. Impression 1. Postsurgical changes are noted with a small mariel hole along the right frontal bone for biopsy of a mass along the periventricular white matter. There appears to be some residual tumor noted in the area of surgery. 2. No evidence of hydrocephalus. Ventricular system is stable in size. Signed by: Russ Rendon Richard Sign Date/Time: 02/27/2020 2:33 PM Recent Labs Lab 02/27/20 0650 WBC 7.64 RBC 4.38 HGB 13.1 HCT 40.2 PLT 331 Recent Labs Lab 02/27/20 0650 INR 1.0 No components found for: TROPONINI, CKTOTAL Recent Labs Lab 02/27/20 0650 NA 139 K 3.8 CL 105 CO2 26 ANIONGAP 12 BUN 8 Lab Results Component Value Date PHUR 5.0 08/08/2019 BLOODU Small (A) 08/08/2019 KETONES Negative 08/08/2019 GLUCOSEU Negative 08/08/2019 PLAN Post op education: Extensive education and discussion regarding discharge undertaken with soto amaya. Reviewed all home medications and risks of medications with the patient. Explained w ith patient the hospital and if applicable the operative course. All questions were answered . Instructions were given to the patient on signs and symptoms [facility] Patient educated on warning signs of infection and instructions to return if those si gns occur. Patient voiced understanding of education and agrees with Disposition: home Condition: Stable Code Status: Prior No discharge procedures on file. Possible Follow Up Numbers: Zuleyka Martínez [id number] [place] [address] Clinic visit in 2 weeks Discharge Medications New Medications Details HYDROcodone-acetaminophen 10-325 mg per tablet Take 1 tablet by mouth every 6 hours as needed for Pain for up to 14 days. Ok to cut table t in half as pain decreases over time. Re: Post operative pain aka: NORCO Unchanged Medications Details acetaminophen 500 mg tablet Take 1,000 mg by mouth every 6 hours as needed for Pain. aka: TYLENOL ALPRAZolam 0.25 mg tablet Take 0.125 mg by mouth 3 times daily as needed. For severe anxiety aka: XANAX Calcium 500 MG Tabs Take 500 mg by mouth Daily. DULoxetine [address] capsule Take 30 mg by mouth 2 times daily. aka: CYMBALTA exemestane 25 MG tablet Take 1 tablet by mouth Daily. aka: AROMASIN levothyroxine 125 mcg tablet Take 125 mcg by mouth every morning (before breakfast). aka: SYNTHROID MULTIVITAMIN ADULT Tabs Take 1 tablet by mouth Daily. omeprazole 20 mg capsule Take 20 mg by mouth every morning (before breakfast). aka: priLOSEC ondansetron 4 mg disintegrating tablet Take 4 mg by mouth every 8 hours as needed for Nausea. aka: ZOFRAN ODT traMADol 50 mg tablet Take 50-100 mg by mouth 4 times daily as needed for Pain. aka: ULTRAM zolpidem 10 mg tablet Take 10 mg by mouth nightly. aka: JUJUIEN Extensive discussion regarding general risks of opiates which can be minor (constipation) a nd severe with opiate dependence, respiratory depression and . Patient was advised to h ave caution with any opiate medication and to not mix medications with alcohol or anti-anxie ty medications like bezodiazapine with the result being the possibility of disability or danilo th. Possibility of impairment and the inability to drive or operate heavy machinery also dis cussed as patient is aware of the risk to themselves and others. Patient was advised not to drive while under the influence of any narcotic or sedating medication. Discharge took 15 minutes, to include final examination, discussion of admission, and prepa ration of prescriptions, instructions for on-going care, follow-up and documentation of disc harge summary. eLmuel Da Silva D.O Board Certified Neurosurgeon / Chief of Neurosurgery [facility] / [facility] Office d ocumented in this encounter Discharge Instructions Instructions Tiffany Slaughter RN - 02/28/2020 documented in this encounter Medications at Time [...] | | Take 1 tablet by | 40 | 0 | 02/28/20 | | | HYDROcodone-acetamin | mouth every 6 hours | tablet | | 20 | 0 | | ophen (NORCO) 10-325 | as needed for Pain | | | | | | mg per tablet | for up to 14 days. | | | | | | | Ok to cut tablet in | | | | | | | half as pain | | | | | | | decreases over time. | | | | | | | Re: Post operative | | | | | | | pain | | | | | + + + +---------+ + + documented as of this encounter Progress Tiffany Narayan RN - 02/28/2020 9:03 AM PDTDischarge education completed. All question s answered. Pt left with daughter in private vehicle. Tiffany Slaughter RN ave, Lynn Ardon RN - 02/28/2020 5:15 AM PDTNeuro status intact throughout shift. Patient still complains of NOLAN pain rating it consistently at 6/10 despite meds given PRN. Shift remains uneventful during hourly rounding. Lynn Acosta RN documented in this encou nter H&P Notes Lemuel Da Silva, - 02/27/2020 6:57 AM PDT [facility] Service: Neurosurgery Pre-Operative History & Physical Interval Update Patient Active Problem List Diagnosis Date Noted POA Intracranial space-occupying lesion 01/05/2020 Unknown Priority: High Brain mass 02/02/2020 Unknown Periorbital cellulitis of left eye 01/04/2020 Unknown Blepharitis of eyelid of left eye 01/04/2020 Unknown Primary malignant neoplasm of female breast 06/25/2019 Unknown Contusion of hip 05/24/2019 Unknown Diverticular disease of colon 12/04/2018 Unknown Adenoma of left adrenal gland 11/08/2018 Unknown Postoperative hypothyroidism 11/08/2018 Unknown Dysphagia 10/06/2018 Unknown Non-small cell cancer of right lung 01/26/2017 Unknown Malignant neoplasm of lower lobe of right lung 12/11/2016 Unknown Pneumothorax after biopsy 11/04/2016 Unknown Thyroid cancer 09/28/2016 Unknown Papillary thyroid carcinoma 09/02/2016 Unknown Precordial pain 06/01/2016 Unknown Abnormal stress ECG with treadmill 06/01/2016 Unknown Cigarette smoker one half pack a day or less 06/01/2016 Unknown Insomnia Unknown Hx of total hysterectomy 04/01/2009 Unknown Vitamin D deficiency 11/06/2008 Unknown Family history of breast cancer 11/29/2006 Unknown Encounter for therapeutic drug level monitoring 12/01/2005 Unknown Posttraumatic stress disorder 11/27/2005 Unknown Chronic nonmalignant pain 11/06/2005 Unknown Tobacco user 01/11/2003 Unknown Lab Results Component Value Date/Time WBC 6.2 01/05/2020 04:39 AM RBC 4.23 01/05/2020 04:39 AM HGB 12.9 01/05/2020 04:39 AM HCT 39.0 01/05/2020 04:39 AM PLT 283 01/05/2020 04:39 AM Lab Results Component Value Date/Time PROTIME 13.0 11/04/2016 09:11 AM INR 0.96 11/04/2016 09:11 AM Lab Results Component Value Date/Time NA 139 01/05/2020 04:39 AM K 4.0 01/05/2020 04:39 AM CL 106 01/05/2020 04:39 AM CO2 25 01/05/2020 04:39 AM ANIONGAP 8 01/05/2020 04:39 AM BUN 12 01/05/2020 04:39 AM MG 1.7 01/05/2020 04:39 AM Lab Results Component Value Date PHUR 5.0 08/08/2019 BLOODU Small (A) 08/08/2019 KETONES Negative 08/08/2019 GLUCOSEU Negative 08/08/2019 There have been no significant subjective clinical changes since the completion of the abov e/clinic H&P. Risks and benefits in a PARQ discussion re-explained to patient who voiced understanding an d wishes to proceed. All questions answered Patient examined with no changes to preoperative physical exam. Continued right caudate mas s asymptomatic Site marked and surgical intervention confirmed with patient who participated by confirming the correct side. Risks re-explained for Right frontal stereotactic biopsy possible conversion to open. Lemuel Da Silva D.O Board Certified Neurosurgeon / Chief of Neurosurgery [facility] / [facility] Office 02/27/2020 6:57 AM Lemuel Joseph DO - 02/27/2020 6:42 AM PDTFormatting of this note might be different from the o riginal. Neurosurgery Clinic Note [facility] Provider: Lemuel Da iSlva DO Date : 02/02/2020 11:11 AM Referring Provider: Milton Salazar* Patient ID 02/02/2020: Olena Rider is a 59 y.o. female presents to neurosurgery clinic with chief complaint of newly diagnosed brain mass after incidentally found will patient be ing treated for periorbital cellulitis. Patient with very complex oncologic history with th yroid breast and lung cancer under various stages of treatment patient with new mass which i s located just posterior to the right caudate patient denies any new loss of neurologic func tion no new weakness numbness no memory deficits patient does have headaches but unlikely to be related to this mass described as pressure headaches which been going on for long. She feels that it may be related to needing to get her glasses adjusted. Patient has been evalu ated by the oncology team was referred to neurosurgery for consideration of biopsy versus re section of this mass patient had a PET scan scheduled to evaluate overall tumor burden has b een recently been losing weight but canceled that PET scan due to the management for this or bital cellulitis. Review of Systems: Pertinent items are noted in HPI and if available I personally reviewed independently patient self documented review of systems provided with patient questionnaire filled out in clinic and to be added to patient chart, patient asked if any other symptoms. All other systems are reviewed and are negative Past Medical History: Diagnosis Date Anxiety Breast cancer (HCC) Insomnia Lung cancer (HCC) Malignant neoplasm of thyroid gland (HCC) PONV (postoperative nausea and vomiting) Allergies Allergen Reactions Morphine Anaphylaxis and Other (See Comments) Morphine And Related Other (See Comments) "unknown reaction - trouble breathing after hysterectomy" Past Surgical History: Procedure Laterality Date APPENDECTOMY BREAST BIOPSY Right 06/15/2019 Procedure: US GUIDED BREAST BIOPSY RIGHT - Location: [facility] BREAST BIOPSY Right 06/15/2019 Procedure: US GUIDED BREAST BIOPSY RIGHT - Location: [facility] EXTERNAL IMAGING BREAST BIOPSY Right 06/15/2019 Procedure: US GUIDED BREAST BIOPSY RIGHT - Location: [facility] EXTERNAL IMAGING BREAST BIOPSY Right 07/06/2019 Procedure: US GUIDED BREAST BIOPSY RIGHT - Location: [facility] COLECTOMY HYSTERECTOMY THYROIDECTOMY Family History Problem Relation Age of Onset Cancer Mother Breast dx at age 53 Cancer Sister Breast dx at age 54 Cancer Paternal Aunt breast cancer dx in her 40's Vitals 01/17/2020 02/02/2020 SYSTOLIC 114 129 DIASTOLIC 75 85 Pulse 75 88 Temp 97.5 96.8 Resp 14 - Weight 186 lbs 8 oz 186 lbs Height - 5' 8.5" SPO2 100 - BMI - 27.9 kg/m2 Social History Socioeconomic History Marital status: Single [...] on file Tobacco Use Smoking status: Current Some Day Smoker Packs/day: 0.50 Years: 30.00 Pack [...] file Gets together: Not on file Attends pentecostalism service: Not on file Active member of [...] Social History Narrative Not on file Objective PHYSICAL EXAM General: Pleasant, awake, alert, and oriented. In no acute distress, well developed, well n ourished. Speech fluent and approriate Skin:Skin color, texture, turgor normal. No rashes or lesions. HEENT: Normocephalic atraumatic Chest:Normal symmetric respiratory effort Heart: Normal rate, auscultation defered, Muscle Strength: Right Left Upper Extremity: 5/5 5/5 Lower Extremity: 5/5 5/5 Muscle tone: normal Neuro: Eyes: No gross abnormalities, PERRLA, EOMI, sclera normal Cranial nerves II-XII: intact,no involuntary movements or tremors noted Gait: Normal gait with balanced heel toe walking, negative Romberg. Sensation:Normal report ed sensation to light touch Cerebellar: [id number] intact, no dysdiadokinesia or dysmetria noted Lab Results Component Value Date/Time WBC 6.2 01/05/2020 04:39 AM RBC 4.23 01/05/2020 04:39 AM HGB 12.9 01/05/2020 04:39 AM HCT 39.0 01/05/2020 04:39 AM PLT 283 01/05/2020 04:39 AM Lab Results Component Value Date/Time NA 139 01/05/2020 04:39 AM K 4.0 01/05/2020 04:39 AM CL 106 01/05/2020 04:39 AM CO2 25 01/05/2020 04:39 AM BUN 12 01/05/2020 04:39 AM MG 1.7 01/05/2020 04:39 AM Medications: [...] mg by mouth Daily., Disp: , Rfl: exemestane (AROMASIN) 25 MG tablet, Take 1 tablet by mouth Daily., Disp: 90 tablet, Rf l: 3 ibuprofen (ADVIL, MOTRIN) 200 mg tablet, Take 400-600 mg by mouth every 6 hours as nee ded for Pain., Disp: , Rfl: levothyroxine (SYNTHROID) 112 mcg tablet, Take 112 mcg by mouth Every other day. Befor e breakfast. Alternating with 125 mcg tabs, Disp: , Rfl: levothyroxine (SYNTHROID) 125 mcg tablet, Take 125 mcg by mouth Every other day. Befor e breakfast. Alternating with 112 mcg tabs, Disp: , Rfl: Multiple Vitamins-Minerals (MULTIVITAMIN ADULT) TABS, Take 1 tablet by mouth Daily., D isp: , Rfl: omeprazole (PRILOSEC) 20 mg capsule, Take 20 mg by mouth every morning (before break)., Disp: , Rfl: ondansetron (ZOFRAN ODT) 4 mg disintegrating tablet, Take 4 mg by mouth every 8 hours as needed for Nausea., Disp: , Rfl: tobramycin (TOBREX) 0.3% ophthalmic solution, Place 1 drop into the left eye 3 times d aily. For 7 days, Disp: , Rfl: traMADol (ULTRAM) 50 mg tablet, Take 50-100 mg by mouth 4 times daily as needed for Pa in., Disp: , Rfl: triamcinolone (KENALOG) 0.1% cream, Apply 1 Application topically 2 times daily. For 7 days to upper left eye lid, Disp: , Rfl: zolpidem (AMBIEN) 10 mg tablet, Take 10 mg by mouth nightly., Disp: , Rfl: Imaging: Right caudate mass periventricular enhancing with some cystic components Internal Imaging Recent XRay Results: Mri Brain W Wo Contrast Result Date: [...] Jared Shipman Electronically signed: 01/22/2020 10:39 AM Us Head Neck Soft Tissue Result Date: 12/06/2019 1. SIMILAR MILDLY PROMINENT BILATERAL CERVICAL NODES WITHOUT CONCLUSIVE NEW MASS OR OTHER ABNORMALITY. Dictated and Signed by: Hugo Godfrey MD Electronically signed: 12/06/2019 3:[address] Orbit Sella Post Fossa Iac W [...] Godfrey MD Electronically signed: 01/04/2020 11:32 AM Assessment Orders placed this Encounter: No orders of the defined types were placed in this encounter. Patient's Medications New Prescriptions No medications on file Modified Medications No medications on file Discontinued Medications No medications on file Assessment and Plan: Olena Rider is a 59 y.o. female with newly diagnosed right periventricular posterior to the caudate anterior to the thalamus mass asymptomatic found incidentally while undergoi ng work-up for orbital cellulitis patient with very complex oncologic history of thyroid giana ast and lung cancer here for evaluation of potential options for management and care. The primary encounter diagnosis was Brain mass. Diagnoses of Malignant neoplasm of lower lo be of right lung (HCC), Primary malignant neoplasm of female breast (HCC), Papillary thyroid carcinoma (HCC), and Intracranial space-occupying lesion were also pertinent to this visit. Plan : 1. Long discussion undertaken with the patient regarding multiple options for care as split into 3 potential paths Options of conservative management with continued observation repeat MRI in 3 months with diamond solis the patient although with patient's aggressive oncologic history explained that thi s is likely not the best course of treatment as I cannot guarantee that this tumor would not increase in size. Is there is asymptomatic and no current need for steroids or antiseizure medications especially as this is in the core of the brain and is unlikely and extremely ra re to cause any seizure disorder. Did discuss patient that her current headaches are likely completely unrelated to this lesion. Options for nonsurgical management including obtaining a PET scan to delineate further tumo r burden and if another site is identified which is consistent with a lung or breast origin that may help with Dr. Salazar with oncology determine the correct oncologic therapy for the brain lesion although would be an in for diagnosis of the brain lesion and would not hav e directed biopsy. PET scan would also be helpful in determining overall tumor burden and e xtent of disease as patient is also recently had extensive weight loss and some difficulty w ith swallowing. Nonsurgical management would also include referral to for consid eration of stereotactic radiosurgery of this lesion. Options for neurosurgical intervention were discussed the patient extensive detail explaine d that this can include a simple needle biopsy which has relatively low risk although this t umor is in a near an operable area and tumor bleeding could cause rather significant deficit s with places risk at less than 1% chance of severe neurologic deficit with simple biopsy al one this would help us diagnose the lesion but in the setting of a PET scan showing diffuse disease may be unnecessary as single solitary lesion this deep in the brain in the near an o perable area could be managed with chemotherapy and radiation if we can infer diagnosis base d on recurrence throughout the body. Options for interhemispheric transcallosal approach to the ventricular space and caudate area was also discussed with the patient Splane that this surgical intervention can carry anywhere from 5 to 20% chance of potential left-sided paral ysis and that this tumor is in a near an operable area as it is directly involving the right caudate and the right thalamus this can lead to profound neurologic deficits including loss of function of the left upper and lower extremity along with this involvement along the for nix which can lead to profound and severe memory deficits. Splane the patient this is not a simple neurosurgical procedure such as a metastasis to the surface of the brain and that an y decision for surgery would need to be well aware of the added surgical risks. In the sett ing that other diagnosis can be made from pet imaging or if radiation and chemotherapy would not be modified based on overall total resection advised patient to carefully weigh the ris ks and benefits of such an extensive surgery. Patient later mad the decision for surgical biopsy after PET scan did not show any clear bi opsy target. Risks and Benefits for Brain Mass Biopsy Extensive discussion was undertaken regarding risks and benefits with regards to planned s urgical intervention for Craniotomy/Craniectomy for stealth navigated needle biopsy of inter cranial mass right sided, possible conversion to open biopsy . Explained that risks include the risks of general anesthesia with regards to surgical intervention. With cranial surgical intervention most common risks include Bleeding, Infection, and Cerebral Spinal leak with c omplication incidence anywhere from 2-5% of cases. Explained that even with perfect surgical technique that complications can occur which can be minor and only require more extensive m edical treatment or medications, or require a return for further surgical intervention. Disc ussed with patient that with the diagnosis that the purpose of surgical intervention is to d iagnose the tumor NOT TO try to removal all tumor material. It is absolutely certain that re sidual tumor will be left behind intentionally as it is not surgically possible to resect al l of the tumor and thus a biopsy is indicated. I cannot eliminate the risk of continued tumo r growth and thus worsening of symptoms. With biopsy cortical surface deficits can be perman ent or worsened with surgery. The potential for continued Cerebro Spinal Fluid leak and need for further surgical intervention for repair and possible meningitis was also discussed as a complication of surgery. The possibility of need for further surgery and therapeutic adjun cts such as chemotherapy or radiation was also discussed as a possibility after pathologic d iagnosis. If the patient has profound neurologic deficit or dysfunction it is certain that a simple biopsy surgery will not reverse those problems and they sometimes worsen. The rare b ut life changing complication of cerebral vascular injury was also discussed as a potentiall y debilitating or fatal occurrence. Added risk to caudate and memory structures was discusse d. It is not possible for me to forsee all potential adverse outcomes or rare potential compl ications that can be severe leading to permanent injury and possible disability/. No gu arantees were given. Patient voiced understanding of relative risks and consents for surgical intervention. Return for Patient offered surgical intervention. It is a pleasure being involved in this patients care should any questions or concerns víctor wagner feel free to contact me at any time. Lemuel Da Silva D.O Board Certified Neurosurgeon / Chief of Neurosurgery [facility] / [facility] Parts of this document have been created with voice recognition software. Although I have p roofread the note, physicist solid earth errors may still exist. documented in this enc ounter Miscellaneous Notes Plan of Care - Lynn Acosta RN - 02/28/2020 5:17 AM PDT Problem: Adult Inpatient Plan of Care Goal: Plan of Care Review Outcome: Ongoing, progressing Plan reviewed with patient. All questions answered. Problem: Adult Inpatient Plan of Care Goal: Absence of Hospital-Acquired Illness or Injury Outcome: Ongoing, progressing Patient remains free of injury and illness during hospital stay. lan of Care - Tiffany Slaughter RN - 02/27/2020 6:23 PM PDT Problem: Adult Inpatient Plan of Care Goal: Plan of Care Review Outcome: Ongoing, progressing Reviewed plan of care with pt. VSS. Pt reports a significant amount of pain, medicated with PRN's. Catheter removed and pt had an occurrence afterwards. ART line removed. Pt tolerating general diet. Neuros intact, incision c/d/I. Chart check complete. Tiffany Slaughter, BILL lan of Care - Deni Ordonez, PT, DPT - 02/27/2020 3:34 PM PDTPhysical Therapy Initial Evaluation, Disc harge Note Recommended discharge disposition: home Post discharge physical therapy recommendation: no further PT Equipment Recommendations: none Barriers to community-based discharge None Recommended Frequency: one time visit(Eval only) Summary: Pt. is s/p needle biospy of R frontal mass. The pt. reports no previous neuromus cular s/s. She exhibits 5/5 strength bilaterally and denies sensory changes throughout. Sh e reports 4/10 NOLAN which is basically baseline for her. She exhibits normal gait cycle and h igh level balance function. There are no mobility concerns associated with her d/c to home setting as determined by surgeon. She was educated in avoidance of high exertional activity /exercise until cleared by surgeon. Living Environment Lives With: child(maira), adult Living Arrangements: house Home Accessibility: no concerns Functional Level Prior Transferring: independent Ambulation: independent Equipment Currently Used at Home: none Cognitive Assessment Orientation: oriented x 4 Transfers Additional Documentation: sit to/from stand Sit-Stand, Level of [place]: modified independent, independent Gait Gait Comments: WNL Level of [place]: modified independent, independent Assistive Device: none Distance (feet): 500 Sensory Assessment Sensation Comments: WNL Strength Strength Comments: 5/5 Balance Sitting Balance: Static: normal balance Sitting Balance: Dynamic: normal balance Standing Balance: Static: normal balance Standing Balance: Dynamic: normal balance Goals Reflects last filed data and may be from multiple contributors. p Note - Lemuel Shipley DO - 02/27/2020 9:00 AM PDTFormatting of this note might be different from t chacorta original. [facility] Service: Neurosurgery Operative Note Pre-operative Diagnosis: 1. Brain mass Pre-Op Diagnosis Codes: * Brain mass [G93.89] Post-operative Diagnosis: Same Indications: See pre-operative history and physical. Anesthesia: General endotrachial ane sthesia Estimated Blood Loss: Less than 20ml Drains: none Condition: stable Procedure(s): Stereotactic biopsy of right frontal lesion. (Right) Stealth assist Complications: None expected Pathology: c/w adenocarcinoma defer to perminent Surgeon: Lemuel Da Silva DO Third Rigger(s): none Findings: routine stealth guided biopsy Description of Procedure: The patient was brought to the operating room, placed under gene ral endotracheal anesthesia. She was positioned 180 degrees away from anesthesia with her h ead placed in [facility] headholder. Stealth navigation was registered and confirmed to b e accurate as we identified approximately Rosaura's point to the right side. I did a transve rse removal of hair in approximately a 4 cm pass approximately 0.5 cm wide. I proceeded wit h prepping and draping the patient in sterile fashion. Time-out was taken. Correct patien t, surgical site and indications for surgery were confirmed by all members of the team. Pro ceeded with incision down through skin, fat and subgaleal planes. Placed a small mariel hole approximately 1.5 cm off midline, was confirmed with Stealth navigation and then localized f or our Stealth navigational approach. I proceeded after mariel hole with a small incision of the dura and reflection back using bipolar cautery, attached the Stealth navigation guided system with the bolanos plastic triangle attached to the skull, followed by the guidance, plast ic pipe along with locking cap, which was secured along the trajectory towards the lesion, w hich was located just posterior to the right caudate, periventricular in nature. Proceeded with accurate measurement and advancement of the biopsy needle under Stealth navigation to the core of the tumor where I then achieved biopsy at the 12 o'clock, 3 o'clock, 6 o'clock a nd 9 o'clock positions. This was sent for frozen specimen and at each region, care was done to take each specimen carefully slowly and allowed time for any potential bleeding to stop, then advanced the needle approximately 3 mm deeper and then performed again at 12 o'clock, 3 o'clock, 6 o'clock and 9 o'clock position biopsies, which were put aside for later perman ent. Also under slow process of waiting 5 minutes between each biopsy section, irrigating a long the needle and confirming that there was no brisk bleeding. It did appear that I enter ed a cystic cavity, one of the draws towards the 3 o'clock position. I did have more bloody proteinaceous fluid. Then, coretta the catheter and needle. The needle back to about the uriel or edge approximately at the surface of the tumor above its extent at the most superior asp ect and proceeded with just a 3 o'clock and 6 o'clock biopsy at this area. This was combine d with the permanent as a needle was left in place again for 5 minutes. Confirmation no act rajan bleeding, the needle was removed. The system was removed and a large mariel hole cover wa s placed over the bur hole site, followed by copious irrigation throughout all this process. No active arteriovenous bleeding was identified. No bleeding along the cortical surface. At this point, then pathology returned consistent with adenocarcinoma and the frozen secti on consistent with lesional tissue. Of course, defer to permanent for further classificatio n and confirmation. Proceeded then with continued closure of the galeal plane using 2-0 Sulaiman ryl in inverted fashion, followed by 3-0 Monocryl running along the surface skin secured wit h dermal glue. At this time, I feel I performed a routine stereotactic biopsy of a very de ep right pericaudate, periventricular mass. The patient with known metastatic cancer with o verall 3 cancer diagnoses. Hope with this biopsy, we can determine the future treatment inc luding chemotherapy and radiation. DISPOSITION: To the step-down unit for continued observation overnight. Needle Count and sponge counts were correct x 2 at the end of the case. It is a pleasure being involved in this patients care should any questions or concerns víctor e feel free to contact me at any time. Lemuel Da Silva D.O Board Certified Neurosurgeon / Chief of Neurosurgery [facility] / [facility] Office documented in this enc ounter Plan of Treatment +--------+ + + + + | Date | Type | Specialty | Care Team | Description | +--------+ + + + + | 11/22/ | Appointment | Radiation Oncology | Susie Montemayor | | | 2020 | | | M, MD [address] | | | | | | [place] | | | | | | [id number] | | | | | | | | +--------+ + + + + documented as of this encounter Procedures + +--------+ + + + | Procedure Name | Priori | Date/Time | Associated Diagnosis | Comments | | | ty | | | | + +--------+ + + + | CT HEAD WO CONTRAST | Routin | 02/27/2020 | | Results for this | | | e | 2:05 PM | | procedure are in the | | | | PDT | | results section. | + +--------+ + + + | SURGICAL PATHOLOGY | Routin | 02/27/2020 | Brain mass | Results for this | | EXAM | e | 8:10 AM | | procedure are in the | | | | PDT | | results section. | + +--------+ + + + | BIOPSY BRAIN | | 02/27/2020 | Brain mass | | | STEREOTACTIC | | 6:50 AM | | | | | | PDT | | | + +--------+ + + + +---+--------+ | | | | | Specia | | | l | | | Needs | | | | | | Stealt | | | h RN, | | | mayfie | | | ld, | | | Step | | | down | | | placem | | | ent | | | after | | | surger | | | yDOS | | | will | | | need | | | labs, | | | MRSA | +---+--------+ + +------+ +---+ + | PTT | STAT | 02/27/2020 | | Results for this | | | | 6:50 AM | | procedure are in the | | | | PDT | | results section. | + +------+ +---+ + | PROTIME INR | STAT | 02/27/2020 | | Results for this | | | | 6:50 AM | | procedure are in the | | | | PDT | | results section. | + +------+ +---+ + | CBC WITH | STAT | 02/27/2020 | | Results for this | | DIFFERENTIAL | | 6:50 AM | | procedure are in the | | | | PDT | | results section. | + +------+ +---+ + | TYPE AND SCREEN | STAT | 02/27/2020 | | Results for this | | | | 6:50 AM | | procedure are in the | | | | PDT | | results section. | + +------+ +---+ + | BASIC METABOLIC | STAT | 02/27/2020 | | Results for this | | PANEL | | 6:50 AM | | procedure are in the | | | | PDT | | results section. | + +------+ +---+ + documented in this encounter Results CT Head wo Contrast (02/27/2020 2:05 PM PDT) + + | Specimen | + + | | + + + + + | Impressions | Performed At | + + + | 1. Postsurgical changes are noted with a small mariel hole along the | [facility] | | right frontal bone for biopsy of a mass along the periventricular | | | white matter. There appears to be some residual tumor noted in the | | | area of surgery. 2. No evidence of hydrocephalus. Ventricular | | | system is stable in size. Signed by: Russ Rendon, | | | Santosh Sign Date/Time: 02/27/2020 2:33 PM | | + + + + + + | Narrative | Performed At | + + + | CT HEAD WITHOUT CONTRAST CLINICAL INFORMATION: Ventricular | [facility] | | intracranial shunt displacement. Status post biopsy. COMPARISON: | | | MRI BRAIN W WO CONTRAST (01/22/2020); CT ORBIT SELLA POST FOSSA IAC W | | | CONTRAST (01/04/2020); US HEAD NECK SOFT TISSUE (12/06/2019); PET CT SKULL | | | BASE TO MID THIGH (02/06/2020); PROCEDURE: Axial images were | | | obtained through the head without IV contrast. Multiplanar | | | reformations were obtained from the acquisition data. At least one | | | of the following CT dose optimization techniques were used: | | | Automated exposure control; Adjustment of mA and/or kV according to | | | patient size; Use of iterative reconstruction technique. FINDINGS: | | | Brain: There is no uncal or tonsillar herniation present. No | | | midline shift is noted. Mildly hyperdense lesion is demonstrated | | | along the periventricular white matter adjacent to the right lateral | | | ventricle measuring 1.3 x 1.1 cm. The brain maintains normal | | | shah-white differentiation. Ventricles and extra-axial fluid | | | spaces: The ventricular system is normal in size. Some gas is seen | | | along the frontal horn bilaterally from recent surgery. Minimal | | | pneumocephalus is noted near the vertex. Paranasal sinuses and | | | mastoid air cells: Normal. Calvarium and extracranial soft | | | tissues: The patient is status post a right frontal mariel hole. | | | Orbits: Imaged portions of the orbits are normal. | | + + + + + | Procedure Note | + + | Christopher, Rad Results In 02/27/2020 2:37 PM PDT | | CT HEAD WITHOUT CONTRAST | | | | CLINICAL INFORMATION: | | Ventricular intracranial shunt displacement. Status post biopsy. | | | | COMPARISON: | | MRI BRAIN W WO CONTRAST (01/22/2020); CT ORBIT SELLA POST FOSSA IAC W | | CONTRAST (01/04/2020); US HEAD NECK SOFT TISSUE (12/06/2019); PET CT SKULL | | BASE TO MID THIGH (02/06/2020); | | | | PROCEDURE: | | Axial images were obtained through the head without IV contrast. | | Multiplanar reformations were obtained from the acquisition data. | | | | At least one of the following CT dose optimization techniques were | | used: Automated exposure control; Adjustment of mA and/or kV according | | to patient size; Use of iterative reconstruction technique. | | | | FINDINGS: | | Brain: There is no uncal or tonsillar herniation present. No midline | | shift is noted. Mildly hyperdense lesion is demonstrated along the | | periventricular white matter adjacent to the right lateral ventricle | | measuring 1.3 x 1.1 cm. The brain maintains normal shah-white | | differentiation. | | | | Ventricles and extra-axial fluid spaces: The ventricular system is | | normal in size. Some gas is seen along the frontal horn bilaterally | | from recent surgery. Minimal pneumocephalus is noted near the vertex. | | | | Paranasal sinuses and mastoid air cells: Normal. | | | | Calvarium and extracranial soft tissues: The patient is status post a | | right frontal mariel hole. | | | | Orbits: Imaged portions of the orbits are normal. | | | | IMPRESSION: | | 1. Postsurgical changes are noted with a small mariel hole along the | | right frontal bone for biopsy of a mass along the periventricular white | | matter. There appears to be some residual tumor noted in the area of | | surgery. | | 2. No evidence of hydrocephalus. Ventricular system is stable in size. | | | | | | | | | | Signed by: Russ Rendon, Santosh | | Sign Date/Time: 02/27/2020 2:33 PM | + + + +---------+ + + | Performing | Address | City/State[facility] | Phone Number | | Organization | | | | + +---------+ + + | [facility] | | | | + +---------+ + + Surgical Pathology Exam (02/27/2020 8:10 AM PDT) + + | Specimen | + + | Tissue - Right | | cerebral hemisphere | | structure (body | | structure) | + + | Soft tissue sample | | (specimen) - Right | | cerebral hemisphere | | structure (body | | structure) | + + + + + | Narrative | Performed At | + + + | THIS IS | [facility] | | AN ADDENDUM REPORT SPECIMEN(S): A RT PERIVENTRICULAR | INCYTE | | MASSSPECIMEN(S): B RT PERIVENTRICULAR MASS SPECIMEN SOURCE:A. RT | | | PERIVENTRICULAR MASSB. RT PERIVENTRICULAR MASS CLINICAL HISTORY:G93.89 | | | (brain mass) FROZEN SECTION DIAGNOSIS:A. Right periventricular | | | mass: Adenocarcinoma. (Dr. Renteria, 02-27-20, 8:36) Frozen section | | | diagnoses called to Dr. Da Silva via [facility] at 8:36. The Gross | | | Description was prepared using a voice recognition system. The | | | report was reviewed for accuracy; however, sound-alike word errors, | | | addition and/or deletions may occur. If there is anyquestion about | | | this report, please contact Client Services. FINAL PATHOLOGIC | | | DIAGNOSIS:Pending stainsA. Right periventricular brain mass, | | | biopsy:- Mucinous adenocarcinoma. B. 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 COMMENT:The submitted | | | tissue shows adenocarcinoma with abundant mucinous cytoplasm. The | | | tumor stains with antibodies against cytokeratin 7, CA19-9, CA125 and | | | polyclonal CEA. The following stains arenegative: TTF-1, S-100, | | | estrogen receptor protein, PAX8, CK20, CDx2, Napsin A, ONEAL-3, GCDFP | | | and mammaglobin. CA125 staining can be seen in ovarian tumors, but | | | also pancreatic and hepatobiliarytumors. Negative PAX8 is strong | | | evidence against a CHRONOMETER TESTER primary. The positive CA19-9 and polyclonal | | | CEA are strong evidence for a pancreatic or hepatobiliary primary. | | | Please correlate with imagingstudies. As part of [facility]' | | | Quality Improvement Program, this case was reviewed by another member | | | of our pathology staff. BES:caw:C1NR MICROSCOPIC | | | EXAMINATION:Histologic sections of all submitted blocks are examined | | | by light microscopy. These findings, together with the gross | | | examination, support the pathologic diagnosis. GROSS DESCRIPTION:Two | | | specimens are received in two containers, labeled "Olena Rider | | | Yaneli." A. The specimen, labeled "Olena Rider, right | | | periventricular mass," is received fresh for frozen section diagnosis | | | and consists of 2.3 x 1.0 x 0.2 cm aggregate of hemorrhagic, soft | | | mucoidmaterial. The specimen is entirely submitted for frozen | | | section resubmitted as received in cassette (A1). B. The specimen, | | | labeled "Olena Rider, right periventricular mass," is received | | | in formalin and consists of 2.2 x 2.0 x 0.4 cm aggregate of pink-red | | | soft tissue with admixed mucoid material.The specimen is entirely | | | submitted in cassettes (B1-B2).FB (under the direct supervision of a | | | pathologist) ADDITIONAL NOTES:Immunohistochemical and/or in situ | | | hybridization studies were performed on this case with the appropriate | | | positive controls that react as expected. This test was developed | | | and its performancecharacteristics determined by [facility]. | | | It has not been cleared or approved by the U.S. Food and Drug | | | Administration. The FDA has determined that such clearance or | | | approval is notnecessary. This test is used for clinical purposes. | | | It should not be regarded as investigational or for research. | | | [facility] is certified under the Clinical Laboratory | | | ImprovementAmendments of 1988 (CLIA) as qualified to perform high | | | complexity clinical laboratory testing. PERFORMING LABORATORY:The | | | technical component was performed by [facility], [address] [place] [address] | | | [place] [address] (Food Preparation Worker: Nissa Calle MD; CLIA# | | | [id number]). Frozen section was performed at [facility] | | | [address] [address] (Food Preparation Worker: | | | Ricardo Renteria M.D.; CLIA#: [id number]). The professional | | | interpretation was performed by [facility] | | | [place], [address] [place] [address]. REASON FOR ADDENDUM:To | | | document review of material for external testing. ADDENDUM COMMENT:At | | | the request of Renay Zimmerman, archived slides and blocks for case | | | [id number] are retrieved on [facility] and reviewed by a | | | pathologist to assess adequacy for UT Profile testing. Block B2 was | | | sent to [facility]. AMB[facility] Professional [facility] | | [facility] [address] | | | [place] [address] (Food Preparation Worker: Ricardo | | | Russ Renteria; CLIA#: [id number]). Diagnostician: Ricardo Renteria | | | MDPathologistDiagnostician: Nissa Calle MDPathologistDiagnostician: | | | Deni Cui DOPathologistElectronically Signed 03/21/2020 | | |At the request of Renay Espitiaclementina, archived slides and blocks for case [id number] are retriev ed on [facility] and reviewed by a pathologist to assess adequacy for [place] Profile rachell ting. | | | | | |Block B2 was sent to [facility]. | | | | | |AMB:[facility] | | | | | |[facility] [address] [place] [address] (Food Preparation Worker: Ricardo Renteria M.D.; CLIA#: [id number]). | | | | | |Diagnostician: Ricardo Renteria MD | | |Pathologist | | |Diagnostician: Nissa Calle MD | | |Pathologist | | |Diagnostician: Deni Cui DO | | |Pathologist | | |Electronically Signed 03/21/2020 | | | | | | | | + + + + +---------+ + + | Performing | Address | City/State/Zipcode | Phone Number | | Organization | | | | + +---------+ + + | [facility] | | | | | [place] | | | | + +---------+ + + Type and Screen (02/27/2020 6:50 AM PDT) + + + + + + | Component | Value | Ref Range | Performed | Pathologist | | | | | At | Signature | + + + + + + | ABO Rh | A POSITIVE | | [facility] | | | | | | LABORATORY | | + + + + + + | Antibody | NEGATIVE | | [facility] | | | Screen | | | LABORATORY | | + + + + + + | BB BAND | [id number] | | [facility] | | | | | | LABORATORY | | + + + + + + | BB BAND | Testing performed at | | [facility] | | | | [facility] | | LABORATORY | | | | [address];[place] [address] | | | | + + + + + + + + | Specimen | + + | Blood | + + + + + + + | Performing | Address | City/State/Zipcode | Phone Number | | Organization | | | | + + + + + | [facility] | [address] | [place] [address] | [phone] | + + + + + PTT (02/27/2020 6:50 AM PDT) + + + + + + | Component | Value | Ref Range | Performed | Pathologist | | | | | At | Signature | + + + + + + | PTT | 30Comment: Testing | 23 - 32 seconds | [place] | | | | performed at [facility];[address] | | LABORATORY | | | | [address];[place], [place] | | | | | | [address] | | | | + + + + + + + + | Specimen | + + | Blood | + + + + + + + | Performing | Address | City/State/Zipcode | Phone Number | | Organization | | | | + + + + + | [facility] | [address] | [place] [address] | [phone] | + + + + + Protime INR (02/27/2020 6:50 AM PDT) + + + + + + | Component | Value | Ref Range | Performed | Pathologist | | | | | At | Signature | + + + + + + | INR | 1.0Comment: REFERENCE | | [facility] | | | | RANGE:0.9 - 1.2 | | LABORATORY | | | | NON-ANTICOAGULATED2.0 | | | | | | - 3.0 ALL OTHER | | | | | | THERAPEUTIC | | | | | | INDICATIONS2.5 - 3.5 | | | | | | MECHANICAL HEART VALVES, | | | | | | RECURRENT OR SYSTEMIC | | | | | | EMBOLISMTesting | | | | | | performed at [facility] | | | | | | [facility];[place], [place] | | | | | | [address] | | | | + + + + + + + + | Specimen | + + | Blood | + + + + + + + | Performing | Address | City/State/Zipcode | Phone Number | | Organization | | | | + + + + + | [facility] | [address] | [place] [address] | [phone] | + + + + + CBC with Differential (02/27/2020 6:50 AM PDT) + + + + + + | Component | Value | Ref Range | Performed | Pathologist | | | | | At | Signature | + + + + + + | WBC | 7.64 | 3.80 - 11.00 | [facility] | | | | | K/uL | LABORATORY | | + + + + + + | Red Blood | 4.38 | 3.70 - 5.10 | [facility] | | | Cells | | M/uL | LABORATORY | | + + + + + + | Hemoglobin | 13.1 | 11.3 - 15.5 | [facility] | | | | | g/dL | LABORATORY | | + + + + + + | Hematocrit | 40.2 | 34.0 - 46.0 % | [facility] | | | | | | LABORATORY | | + + + + + + | MCV | 91.8 | 80.0 - 100.0 fl | [facility] | | | | | | LABORATORY | | + + + + + + | MCH | 29.9 | 27.0 - 34.0 pg | [facility] | | | | | | LABORATORY | | + + + + + + | MCHC | 32.6 | 32.0 - 35.5 | [facility] | | | | | g/dL | LABORATORY | | + + + + + + | RDW-SD | 41.3 | 37 - 53 fl | [facility] | | | | | | LABORATORY | | + + + + + + | Platelet | 331 | 150 - 400 K/uL | [facility] | | | Count | | | LABORATORY | | + + + + + + | MPV | 10.0Comment: NO NORMAL | fl | [facility] | | | | RANGE ESTABLISHED | | LABORATORY | | + + + + + + | Diff Type | AUTOMATED | | [facility] | | | | | | LABORATORY | | + + + + + + | % nRBC | 0.0 | 0 /100WBC | [facility] | | | | | | LABORATORY | | + + + + + + | % | 60.40 | % | [facility] | | | Neutrophils | | | LABORATORY | | + + + + + + | IMMATURE | 0.30 | % | [facility] | | | GRANULOCYTE | | | LABORATORY | | + + + + + + | % | 26.60 | % | [facility] | | | Lymphocytes | | | LABORATORY | | + + + + + + | Monocyte % | 9.20 | % | [facility] | | | | | | LABORATORY | | + + + + + + | Eosinophils | 2.70 | % | [facility] | | | % | | | LABORATORY | | + + + + + + | Basophils % | 0.80 | % | [facility] | | | | | | LABORATORY | | + + + + + + | Neutrophils | 4.62 | 1.90 - 7.40 | [facility] | | | , Absolute | | K/uL | LABORATORY | | + + + + + + | IMMATURE | 0.02Comment: NOTE NEW | 0.00 - 0.07 | [facility] | | | GRANS AB | REFERENCE RANGE | K/uL | LABORATORY | | + + + + + + | Absolute | 2.03 | 1.00 - 3.90 | [facility] | | | Lymphocytes | | K/uL | LABORATORY | | + + + + + + | Absolute | 0.70 | 0.00 - 0.80 | [facility] | | | Monocytes | | K/uL | LABORATORY | | + + + + + + | Eosinophils | 0.21 | 0.00 - 0.50 | [facility] | | | , Absolute | | K/uL | LABORATORY | | + + + + + + | Basophils, | 0.06Comment: Testing | 0.00 - 0.10 | [facility] | | | Absolute | performed at [facility];[address] | K/uL | LABORATORY | | | | [address];[place] | | | | | | [address] | | | | + + + + + + + + | Specimen | + + | Blood | + + + + + + + | Performing | Address | City/State/Zipcode | Phone Number | | Organization | | | | + + + + + | [facility] | [address] | [place] [address] | [phone] | + + + + + Basic Metabolic Panel (02/27/2020 6:50 AM PDT) + + + + + + | Component | Value | Ref Range | Performed | Pathologist | | | | | At | Signature | + + + + + + | Na | 139 | 135 - 145 | [facility] | | | | | mmol/L | LABORATORY | | + + + + + + | K | 3.8 | 3.5 - 4.9 | [facility] | | | | | mmol/L | LABORATORY | | + + + + + + | Cl | 105 | 99 - 109 mmol/L | [facility] | | | | | | LABORATORY | | + + + + + + | CO2 | 26 | 23 - 32 mmol/L | [facility] | | | | | | LABORATORY | | + + + + + + | Anion Gap | 12 | 5 - 20 mmol/L | [facility] | | | | | | LABORATORY | | + + + + + + | Glucose | 98 | 65 - 99 mg/dL | [facility] | | | | | | LABORATORY | | + + + + + + | BUN | 8 | 8 - 25 mg/dL | [facility] | | | | | | LABORATORY | | + + + + + + | Creatinine | 0.82 | 0.50 - 1.00 | [facility] | | | | | mg/dL | LABORATORY | | + + + + + + | BUN/Creatin | 10 | | [facility] | | | ine Ratio | | | LABORATORY | | + + + + + + | Calcium | 9.8 | 8.5 - 10.5 | [facility] | | | | | mg/dL | LABORATORY | | + + + + + + | Estimated | >60Comment: GFR <60: | >60 | [facility] | | | GFR | CHRONIC KIDNEY DISEASE, | mL/min/1.73m2 | LABORATORY | | | | IF FOUND OVER A 3 MONTH | | | | | | PERIOD.GFR <15: KIDNEY | | | | | | FAILURE.FOR | | | | | | AMERICANS, MULTIPLY THE | | | | | | CALCULATED GFR BY | | | | | | 1.210.This eGFR is | | | | | | calculated using the | | | | | | [facility] traceable | | | | | | equation.Testing | | | | | | performed at [facility];[address] | | | | | | [facility];[place], [place] | | | | | | [address] | | | | + + + + + + + + | Specimen | + + | Blood | + + + + + + + | Performing | Address | City/State/Zipcode | Phone Number | | Organization | | | | + + + + + | [facility] | [address] | [place] [address] | [phone] | + + + + + documented in this encounter Visit Diagnoses + + | Diagnosis | + + | Brain mass Unspecified condition of brain | + + documented in this encounter Admitting Diagnoses + + | Diagnosis | + + | Brain mass Unspecified condition of brain | + + documented in this encounter Administered Medications + +--------+ + +------+------+ | Medication Order | MAR | Action | Dose | Rate | Site | | | Action | Date | | | | + +--------+ + +------+------+ | ALPRAZolam (XANAX) tablet 0.125 | Given | 02/27/20 | 0.125 mg | | | | mg 0.125 mg, Oral, EVERY 8 | | 20 10:41 | | | | | HOURS PRN, Anxiety, Starting Tue | | PM PDT | | | | | 02/27/20 at 1117, Post-op/Phase II | | | | | | + +--------+ + +------+------+ +---+---+ | | | +---+---+ + +-------+ +---------+---+---+ | bacitracin injection PRN, | Given | 02/27/20 | 50,000 | | | | Starting 02/27/20 at 0840, | | 20 8:40 | Units | | | | Intra-op | | AM PDT | | | | + +-------+ +---------+---+---+ +---+---+ | | | +---+---+ + +-------+ +---------+---+---+ | bacitracin topical ointment | Given | 02/27/20 | 1 | | | | PRN, Starting Wed02/27/20 at | | 20 8:40 | Package | | | | 0840, Intra-op | | AM PDT | | | | + +-------+ +---------+---+---+ +---+---+ | | | +---+---+ + +-------+ +--------+---+---+ | bupivacaine (PF) (MARCAINE) | Given | 02/27/20 | 20 mLs | | | | 0.5% 30 mL with lidocaine | | 20 8:17 | | | | | 1%-EPINEPHrine 1:100,000 20 mL | | AM PDT | | | | | Optesia Mixture PRN, Starting | | | | | | | Wed02/27/20 at 0817, Intra-op | | | | | | + +-------+ +--------+---+---+ +---+---+ | | | +---+---+ + +-------+ +--------+---+---+ | docusate sodium (COLACE) | Given | 02/28/20 | 200 mg | | | | capsule 200 mg 200 mg, Oral, 2 | | 20 7:54 | | | | | TIMES DAILY, First dose on Wed | | AM PDT | | | | | 02/27/20 at 1200, First line agent | | | | | | | for constipation, Post-op/Phase | | | | | | | II | | | | | | + +-------+ +--------+---+---+ +-------+ +--------+---+---+ | Given | 02/27/20 | 200 mg | | | | | 20 8:32 | | | | | | PM PDT | | | | +-------+ +--------+---+---+ | Given | 02/27/20 | 200 mg | | | | | 20 12:59 | | | | | | PM PDT | | | | +-------+ +--------+---+---+ +---+---+ | | | +---+---+ + +-------+ +-------+---+---+ | DULoxetine (CYMBALTA) DR | Given | 02/28/20 | 30 mg | | | | capsule 30 mg 30 mg, Oral, 2 | | 20 7:54 | | | | | TIMES DAILY, First dose on Wed | | AM PDT | | | | | 02/27/20 at 2100, Do not open | | | | | | | capsule., Post-op/Phase II | | | | | | + +-------+ +-------+---+---+ +-------+ +-------+---+---+ | Given | 02/27/20 | 30 mg | | | | | 20 8:32 | | | | | | PM PDT | | | | +-------+ +-------+---+---+ +---+---+ | | | +---+---+ + +-------+ +---------+---+---+ | HYDROcodone-acetaminophen | Given | 02/28/20 | 2 | | | | (NORCO) 5-325 mg per tablet 1-2 | | 20 8:33 | tablets | | | | tablet 1-2 tablet, Oral, EVERY 4 | | AM PDT | | | | | HOURS PRN, Pain, Starting Wed | | | | | | | 02/27/20 at 1116, Post-op/Phase II | | | | | | + +-------+ +---------+---+---+ +-------+ +---------+---+---+ | Given | 02/28/20 | 2 | | | | | 20 4:27 | tablets | | | | | AM PDT | | | | +-------+ +---------+---+---+ | Given | 02/28/20 | 2 | | | | | 20 12:19 | tablets | | | | | AM PDT | | | | +-------+ +---------+---+---+ +---+---+ | | | +---+---+ + +-------+ +---------+---+---+ | levothyroxine (SYNTHROID) | Given | 02/28/20 | 125 mcg | | | | tablet 125 mcg 125 mcg, Oral, | | 20 7:03 | | | | | DAILY BEFORE BREAKFAST, First | | AM PDT | | | | | dose on Wed02/27/20 at 1200, Give | | | | | | | before breakfast., Post-op/Phase | | | | | | | II | | | | | | + +-------+ +---------+---+---+ +---+---+ | | | +---+---+ + +-------+ +------+---+---+ | ondansetron (ZOFRAN ODT) | Given | 02/28/20 | 4 mg | | | | disintegrating tablet 4 mg 4 mg, | | 20 7:57 | | | | | Oral, EVERY 6 HOURS PRN, Nausea, | | AM PDT | | | | | Vomiting, Starting 02/27/20 | | | | | | | at 1013, First line agent., | | | | | | | Post-op/Phase II | | | | | | + +-------+ +------+---+---+ +-------+ +------+---+---+ | Given | 02/27/20 | 4 mg | | | | | 20 10:41 | | | | | | PM PDT | | | | +-------+ +------+---+---+ | Given | 02/27/20 | 4 mg | | | | | 20 10:25 | | | | | | AM PDT | | | | +-------+ +------+---+---+ +---+---+ | | | +---+---+ documented in this encounter
--- OUTSIDE RECORDS SUMMARY | ~2020-07-17 | XMS | Encounter Summary ---
Demographics + + + | Address | [address] | | | [place] [address] | + + + | Home Phone | | + + + | Preferred Language | Unknown | + + + | Marital Status | Single | + + + | Anabaptism Affiliation | Unknown | + + + | Race | White | + + + | Ethnic Group | Not or | + + + Author + + + | Author | [facility] | | | and [place] | + + + | Organization | [facility] | | | [...] Team Providers + +------+ + | Care Director Writing Name | Role | Phone | + +------+ + | Zuleyka Martínez | PCP | | + +------+ + Encounter Details +--------+ + + + + | Date | Type | Department | Care Team | Description | +--------+ + + + + | 07/03/ | Hospital | [facility] | Conversion | Pain | | 2016 | Encounter | CONVERSION [address] | Transaction, | | | | | [address] | Provider Unknown | | | | | [place], [place] | [phone] | | | | | [address] | | | | | | [phone] | | | +--------+ + + + [...] [place] | | | | | | [address] | | | | | | | [...]
--- OUTSIDE RECORDS SUMMARY | ~2020-07-17 | XMS | Encounter Summary ---
Demographics + + + | Address | [address] | | | [place] [address] | + + + | Home Phone [...] Team Providers + +------+ + | Care Developer Advocate Name | Role | Phone | + [...] [facility] | MD Jared [address] | | | | | [facility] [address] | [place], [place] | | | | | [facility] | [address] | | | | | [place] [address] | | | | | | [phone] | | | +--------+ + + + [...] this up tomorrow. Copy also [facility] signed by Azucena Ritchie RN at [...] call ivy [place] it is ready at [phone] signed by Serenity Dunn RN at 03/13/2020 1: 07 PM PDTTelephone Encounter - iDma Lehman - 03/13/2020 11:12 AM PDTPt called for statu s of paperwork she dropped off for doctor to complete so she can come pick it up Please contact her @ [phone] signed by Dima Lehman at 03/13/2020 11: [...] [place] | | | | | | [id number] | | | | | | | | +--------+ + + + + documented as of this encounter Visit Diagnoses Not on filedocumented in this encounter"
--- OUTSIDE RECORDS SUMMARY | ~2020-07-17 | XMS | Encounter Summary ---
Demographics + + + | Address | [address] | | | [place] [address] | + + + | Home Phone [...] Team Providers + +------+ + | Care Sports Management Intern Name | Role | Phone | + +------+ + | Zuleyka Martínez | PCP | | + +------+ + Encounter Details +--------+ + + + + | Date | Type | Department | Care Team | Description | +--------+ + + + + | 04/25/ | Hospital | [facility] | Zuleyka Cota, | Swelling of lymph | | 2018 | Encounter | MED CTR ULTRASOUND | MD [address] | nodes; Thyroid | | | | [address] [place] | [address] [place], | cancer (HCC) | | | | [place], [place] | [place] [address] | | | | | [address] | [phone] | | | | | [phone] | | | | | | | Usman Brady, | | | | | | Technologist Andrea, | | | | | | [facility] | | +--------+ + + + + [...] | | | | [place] | | | | | | [address] | | | | | | | | +--------+ + + + + documented as of this encounter Procedures + +--------+ + + + | Procedure Name | Priori | Date/Time | Associated Diagnosis | Comments | | | ty | | | | + +--------+ + + + | US GUIDED FNA | Routin | 04/25/2018 | Swelling of lymph | Results for this | | | e | 11:10 AM | nodes Thyroid | procedure are in the | | | | PDT | cancer (HCC) | results section. | + +--------+ + + + | FINE NEEDLE | Routin | 04/25/2018 | | | | ASPIRATION | e | 12:00 AM | | | | | | PDT | | | + +--------+ + + + | MEDICAL CYTOLOGY | Routin | 04/25/2018 | | Results for this | | | e | 12:00 AM | | procedure are in the | | | | PDT | | results section. | + +--------+ + + + documented in this encounter Results US Guided FNA (04/25/2018 11:10 AM PDT) + + | Specimen | + + | | + + + + + | Narrative | Performed At | + + + | US GUIDED FNA 04/25/2018 10:56 AM HISTORY: SWELLING OF LYMPH | [facility] | | NODES; THYROID CANCER. ATTENTION: LEFT SIDE LYMPH NODE. | | | COMPARISON: Ultrasound of the neck 03/11/2018. PROTOCOL: After | | | explaining the risks and benefits of the procedure, informed consent | | | was obtained from the patient. Risks discussed included bleeding and | | | infection. Under ultrasound guidance, the dominant left neck lymph | | | node was localized. This region was cleansed and draped in the usual | | | sterile fashion. Lidocaine was used for local anesthesia. Using | | | 25-gauge 1.5 inch needles, biopsy was performed with 3 passes. The | | | samples were injected into CytoLyt solution. IMPRESSION - | | | Successful ultrasound-guided left neck lymph node biopsy. Dictated | | | and Signed by: Iftikhar Larios MD Electronically signed: 04/25/2018 | | | 1:47 PM | | + + + + + | Procedure Note | + + | Christopher, Andrea Results In - 04/25/2018 1:51 PM PDT US GUIDED FNA 04/25/2018 10:56 AM | | | | HISTORY: SWELLING OF LYMPH NODES; THYROID CANCER. ATTENTION: LEFT SIDE LYMPH | | NODE. | | | | COMPARISON: Ultrasound of the neck 03/11/2018. | | | | PROTOCOL: | | After explaining the risks and benefits of the procedure, informed consent was | | obtained from the patient. Risks discussed included bleeding and infection. | | Under ultrasound guidance, the dominant left neck lymph node was localized. This | | region was cleansed and draped in the usual sterile fashion. Lidocaine was used | | for local anesthesia. Using 25-gauge 1.5 inch needles, biopsy was performed with | | 3 passes. The samples were injected into CytoLyt solution. | | | | IMPRESSION - | | Successful ultrasound-guided left neck lymph node biopsy. | | | | Dictated and Signed by: Iftikhar Larios MD | | Electronically signed: 04/25/2018 1:47 PM | + + + +---------+ + + | Performing | Address | City/State/Zipcode | Phone Number | | Organization | | | | + +---------+ + + | [facility] | | | | + +---------+ + + Medical Cytology (04/25/2018 12:00 AM PDT) + + | Specimen | + + | | + + + + + | Narrative | Performed At | + + + | ORDERING PHYSICIAN: Iftikhar Larios MD PATIENT NAME: [facility] | | OLENA CREWS GENDER: Yaakov : 1960 SPECIMEN(S): A | [facility] | | NBX, LEFT NECK GROSS DESCRIPTION: 30 ML OF CLEAR, COLORLESS | | | FLUID CLINICAL HISTORY: NO CLINICAL DATA PROVIDED LABORATORY | | | PREPARATIONS: 1 MONOLAYER CYTOLOGIC INTERPRETATION: Lymph | | | node, left neck, needle sampling: Negative for malignant cells. | | | PATHOLOGIST COMMENTS: The sample is negative for malignant cells, but | | | has extremely scant cellularity including scant lymphocytes. | | | Additional sampling should be considered if there is clinical | | | suspicion of neoplasia. SPECIMEN ADEQUACY: Satisfactory for | | | Evaluation PERFORMING LABORATORY: Technical preparation was | | | performed by [facility] [id number] | | | [place] [address] and [employer], [place] [address] | | | [place] [address]. Professional interpretation was performed | | | by [facility] - [facility] - [address] | | | [place] [address] (Process Automation Engineer: Eliezer Helm M.D.; | | | [facility]#:[id number]).8 Diagnostician: Mariza Mendoza M.S., | | | CT([facility]), [facility] Propagation Manager Diagnostician: Eliezer Helm MD | | | Pathologist Electronically Signed 04/26/2018 | | + + + + +---------+ + + | Performing | Address | City/State/Zipcode | Phone Number | | Organization | | | | + +---------+ + + | [facility] | | | | | [place] | | | | + +---------+ + + documented in this encounter Visit Diagnoses + + | Diagnosis | + + | Swelling of lymph nodes Enlargement of lymph nodes | + + | Thyroid cancer (HCC) Malignant neoplasm of thyroid gland | + + documented in this encounter"
--- OUTSIDE RECORDS SUMMARY | ~2020-07-17 | XMS | Encounter Summary ---
Demographics + + + | Address | [address] | | | [place] [address] | + + + | Home Phone [...] Team Providers + +------+ + | Care Compliance Director Name | Role | Phone | + [...] | | | [address] [place] | [place] [address] | | | | | [place] [address] | | | | | | [phone] | | | +--------+ + + + [...] [address] | | | | | | [place], [place] | | | | | | [address] | | | | | | | [...]
--- OUTSIDE RECORDS SUMMARY | ~2020-07-17 | XMS | Encounter Summary ---
Demographics + + + | Address | [address] | | | [place] [address] | + + + | Home Phone | | + + + | Preferred Language | Unknown | + + + | Marital Status | Single | + + + | Shinto Affiliation | Unknown | + + + [...] Team Providers + +------+ + | Care Parts Counter Representative Name | Role | Phone | [...] | | Non-small | Salazar, | [address] | | | | | cell cancer | [place] | Shakila Jhaveri, | | | | | of right | [place] | [place] [address] | | | | | lung (HCC) | [address] | Phone: | | | | | Procedures | [place] | [phone] | | | | | CT Chest w | [place] | Fax: | | | | | Contrast | [address] | [phone] | | | | | | Phone: | | | | | | | [phone] | | | | | | | Fax: | | | | | | | [phone] | | +--------+--------+ + + + + [...] + + | 03/11/ | Hospital | [facility] | [place] | Non-small cell | | 2018 | Encounter | MED CTR CT [address] | MD [place] [address] | cancer of right lung | | | | [address], | [address] [place] | ([facility]) | | | | [place] [address] | [place] [address] | | | | | [phone] | [phone] | | | | | | | [...] | | 2020 | | | MD Jaerd [address] | | | | | | [facility] [place] | | | | | | [address] | | | | | | | | +--------+ + + + + documented as of this encounter Procedures + +--------+ + + + | Procedure Name | Priori | Date/Time | Associated Diagnosis | Comments | | | ty | | | | + +--------+ + + + | CT CHEST W CONTRAST | Routin | 03/11/2018 | Non-small cell | Results for this | | | e | 10:38 AM | cancer of right lung | [...] iohexol (OMNIPAQUE 350) 350 | Given | 03/11/20 | 75 mLs | | | | mg/mL injection 75 mL 75 mL, | | 18 10:34 | | | | | Intravenous, ONCE PRN, Other, | | AM PDT | | | | | Starting 03/11/18 at 1034, For | | | | | | | 1 dose, Cat Scanner | | | | | | + +--------+ +--------+------+------+ +---+---+ | | | +---+---+ documented in this encounter"
--- OUTSIDE RECORDS SUMMARY | ~2020-07-17 | XMS | Encounter Summary ---
Demographics + + + | Address | [address] | | | [place] [address] | + + + | Home Phone [...] Author + + + | Author | [facility] | | | and [place] | + + + | Organization | [facility] | | | [...] Team Providers + +------+ + | Care Real Estate Account Executive Name | Role | Phone | + [...] | | IMAGING [address] | [address] | | | | | [address] [place] | [place] [address] | | | | | [place] [address] | | | | | | [phone] | | | +--------+ + + + [...] [address] | | | | | | [place], [place] | | | | | | [address] | | | | | | | | +--------+ + + + + documented as of this encounter Procedures + +--------+ + + + | Procedure Name | Priori | Date/Time | Associated Diagnosis | Comments | | | ty | | | | + +--------+ + + + | US BREAST LIMITED | Routin | 07/26/2014 | | Results for this | | RIGHT | e | 12:05 AM | | procedure are in the | | | | PDT | | results section. | + +--------+ + + + documented in this encounter Results US Breast Limited Right (07/26/2014 12:05 AM PDT) + + | Specimen [...]
--- OUTSIDE RECORDS SUMMARY | ~2020-07-17 | XMS | Encounter Summary ---
Demographics + + + | Address | [address] | | | [place] [address] | + + + | Home Phone | | + + + | Preferred Language | Unknown | + + + | Marital Status | Single | + + + | Rastafari Affiliation | Unknown | + + + [...] Providers + +------+ + | Care Senior Buyer Name | Role | Phone | + +------+ + | Zuleyka Martínez | PCP | | + +------+ + Encounter Details +--------+ + + + + | Date | Type | Department | Care Team | Description | +--------+ + + + + | 03/06/ | Hospital | [facility] | Susie Montemayor | | | 2020 | Encounter | [facility] | [place], [address] | | | | | ONCOLOGY [address] [place], [place] | | | | | [place], | [address] | | | | | [place] [address] | | | | | | [phone] | | | +--------+ + + + [...] [place] | | | | | | [id number] | | | | | | | | +--------+ + + + + documented as of this encounter Visit Diagnoses Not on filedocumented in this encounter"
--- OUTSIDE RECORDS SUMMARY | ~2020-07-17 | XMS | Encounter Summary ---
Demographics + + + | Address | [address] | | | [place] [address] | + + + | Home Phone [...] + + + | Author | [facility] | | | and [place] | + + + | Organization | [facility] | | [...] Team Providers + +------+ + | Care Ordnance Handler Name | Role | Phone | + [...] | ONCOLOGY [address] | [place], [place] | | | | | [place], | [address] | | | | | [place] [address] | | | | | | [phone] | | | +--------+ + + + [...] - Zelda Vidal - 11/24/2016 1:28 PM PSTMicverenicele called and stated that she would like to speak with Dr. Vargas's nu rse to see if the paper work that she left last week for Dr. Vargas to fill out had been faxed over to [facility] for her disability please advise thank you. documented in this encounter Plan of Treatment +--------+ + + + + | Date | Type | Specialty | Care Team | Description | +--------+ + + + + | 11/22/ | Appointment | Radiation Oncology | Susie Montemayor | | | 2020 | | | MD Lazaro Coleman | | | | | | [place], [place] | | | | | | [phone] | | | | | | | | +--------+ + + + + documented as of this encounter Visit Diagnoses Not on filedocumented in this encounter"
--- OUTSIDE RECORDS SUMMARY | ~2020-07-17 | XMS | Encounter Summary ---
Demographics + + + | Address | [address] | | | [place] [address] | + + + | Home Phone [...] Author + + + | Author | [facility] | | | and [place] | + + + | Organization | [facility] | | | and [...] Team Providers + +------+ + | Care Baggage Checker Name | Role | Phone | + [...] | | | [address] | [place] [address] | | | | | [facility] [place] [address] | | | | | | [phone] | | | +--------+ + + + [...] [address] | | | | | | [place], [place] | | | | | | [address] | | | | | | | | +--------+ + + + + documented as of this encounter Procedures + +--------+ + + + | Procedure Name | Priori | Date/Time | Associated Diagnosis | Comments | | | ty | | | | + +--------+ + + + | ADAM TOMOSYN | Routin | 05/25/2019 | | Results for this | | SCREENING BILATERAL | e | 12:00 AM | | procedure are in the | | | | PDT | | results section. | + +--------+ + + + documented in this encounter Results ADAM Tomosynthesis Screening Bilateral (05/25/2019 12:00 AM PDT) + + | Specimen [...]
--- OUTSIDE RECORDS SUMMARY | ~2020-07-17 | XMS | Encounter Summary ---
Demographics + + + | Address | [address] | | | [place] [address] | + + + | Home Phone [...] + + + | Author | [facility] | | | and [place] | + + + | Organization | [facility] | | [...] Team Providers + +------+ + | Care Special Assemblies Supervisor Name | Role | Phone | [...] | | | | Diagnoses | | [place], | | | | | Brain mass | | DO Lemuel | | | | | Procedures | | [address] | | | | | [place] | | [address] | | | | | STEREOTACTIC | | B | | | | | BRAIN | | [place] | | | | | [place] | | [address] | | | | | [place] | | Phone: | | | | | STEREOTACTIC | | [phone] | | | | | COMP ASSIST | | Fax: | | | | | | | [phone] | | | | | PROC,CRANIAL | [...] + + + + | 02/26/ | Hospital | [facility] | Lemuel Da Silva DO | Brain mass | | 2019 - | Encounter | [facility] | [address] | | | | | [address] | [address] | | | 02/27/ | | [place], [place] | [place] [address] | | | 2019 | | [address] | [phone] | | | | | [phone] | | | +--------+ + + + [...] + + + | Blood Pressure | 111/67 | 02/28/2020 8:00 AM | | | | | PDT | | + + + + + | Pulse | 70 | 02/28/2020 8:00 AM | | | | | PDT | | + + + + + | Temperature | 37.2 C (98.9 F) | 02/28/2020 8:00 AM | | | | | PDT | | + + + + + | Respiratory Rate | 20 | 02/28/2020 8:00 AM | | | | | PDT | | + + + + + | Oxygen Saturation | 99% | 02/28/2020 8:00 AM | | | | | PDT | | + + + + + | Inhaled Oxygen | - | - | | | Concentration | | | | + + + + + | Weight | 83.6 kg (184 lb 4.9 | 02/28/2020 4:26 AM | | | | oz) | [...] 02/28/2020 12:15 PM PDT Neurosurgery Discharge Summary [facility] Neurosurgery Provider: Lemuel Da Silva DO Date [...] Surg suzanne: Lemuel Da Silva DO; Location: [facility] MAIN OR BREAST BIOPSY Right 06/15/2019 Procedure: US GUIDED BREAST BIOPSY RIGHT - Location: [facility] EXTERNAL IMAGING BREAST BIOPSY Right 06/15/2019 Procedure: US GUIDED BREAST BIOPSY RIGHT - Location: [facility] EXTERNAL IMAGING BREAST BIOPSY Right 06/15/2019 Procedure: US GUIDED BREAST BIOPSY RIGHT - Location: [facility] EXTERNAL IMAGING BREAST BIOPSY Right 07/06/2019 Procedure: US GUIDED BREAST BIOPSY RIGHT - Location: [facility]TERNAL [facility] COLECTOMY has large growth in [...] 02/02/2020:Olena Grimes a 59 y.o.f[facility]alep[facility] of newly diagnosed [...] Sensation:Normal reported sensation to light touch Cerebellar: bltxhm-oq-qsfz intact, no dysdiadokinesia or dysmetria noted Significant [...] symptoms for which [facility]. Patient educated on warning signs of infection and instructions to return if those si gns occur. Patient voiced understanding of education and agrees with Disposition: home Condition: Stable Code Status: Prior No discharge procedures on file. Possible Follow Up Numbers: Zuleyka Martínez [id number] [facility] [address] Clinic visit in 2 weeks Discharge Medications [...] Take 10 mg by mouth nightly. aka: JESSICA Extensive discussion regarding general risks of opiates [...] follow-up and documentation of disc harge summary. Lemuel Da Silva D.O Board Certified Neurosurgeon / Chief of Neurosurgery [facility] / [facility] Office d ocumented in this [...] documented as of this encounter Progress Notes Tiffany Slaughter RN - 02/28/2020 9:03 AM PDTDischarge education completed. All question s answered. Pt left with daughter in private vehicle. Tiffany Slaughter RN irdLynn RN - 02/28/2020 5:15 AM PDTNeuro status intact throughout shift. Patient still complains of NOLAN pain rating it consistently at 6/10 despite meds given PRN. Shift remains uneventful during hourly rounding. Lynn Acosta RN documented in this encou nter H&P Notes Lemuel Da Silva, DO - 02/27/2020 6:[address] [facility] Service: Neurosurgery Pre-Operative History & Physical [...] Neurosurgeon / Chief of Neurosurgery [facility] / [facility] Office 02/27/2020 6:57 AM Lemuel Joseph DO - 02/27/2020 6:42 AM PDTFormatting of this note might be different from the o riginal. Neurosurgery Clinic Note [facility] Provider: Lemuel Da Silva DO Date : 02/02/2020 11:11 AM Referring [...] file Gets together: Not on file Attends zoroastrianism service: Not on file Active member of [...] report ed sensation to light touch Cerebellar: isknwa-hk-hzln intact, no dysdiadokinesia or dysmetria noted Lab [...] 20 mg by mouth every morning (before )., Disp: , Rfl: ondansetron (ZOFRAN ODT) 4 [...] risk to caudate and memory structures was deep fields. It is not possible for me to [...] Neurosurgeon / Chief of Neurosurgery [facility] / [facility] Office Parts of this document have been created with voice recognition software. Although I have p roofread the note, industrial technologist errors may still exist. documented in this [...] intact, incision c/d/I. Chart check complete. Tiffany Slaughter RN lan of Care - Deni Ordonez PT, DPT - 02/27/2020 3:34 PM PDTPhysical [...] Documentation: sit to/from stand Sit-Stand, Level of [place]: modified independent, independent Gait Gait Comments: WNL Level of [place]: modified independent, independent Assistive Device: none Distance (feet): 500 Sensory Assessment Sensation Comments: WNL Strength Strength Comments: 03/05 Balance Sitting Balance: Static: normal balance Sitting Balance: Dynamic: normal balance Standing Balance: Static: normal balance Standing Balance: Dynamic: normal balance Goals Reflects last filed data and may be from multiple contributors. p Note - Lemuel Shipley DO - 02/27/2020 9:00 AM PDTFormatting of this note might be different from t chacorta original. [facility] Service: Neurosurgery Operative Note Pre-operative Diagnosis: [...] to perminent Surgeon: Lemuel Da Silva DO Customer Service Agent(s): none Findings: routine stealth guided biopsy Description of Procedure: The patient was brought to the operating room, placed under gene ral endotracheal anesthesia. She was positioned 180 degrees away from anesthesia with her h ead placed in [facility] headholder. Stealth navigation was registered and confirmed to micah wagner accurate as we identified approximately Rosaura's point [...] Neurosurgeon / Chief of Neurosurgery [facility] / [facility] Office documented in this enc ounter Plan of Treatment +--------+ + + + + | Date | Type | Specialty | Care Team | Description | +--------+ + + + + | 11/22/ | Appointment | Radiation Oncology | Susie Montemayor | | | 2020 | | | MD Jared [address] | | | | | | [place] | | | | | | [id number] | | | | | | | [...] | | | | Signed by: Russ Rendon Richard | | Sign Date/Time: 02/27/2020 2:33 PM | + + + +---------+ + + | Performing | Address | City/State[facility] | Phone Number | | Organization [...] strong | | | evidence against a WOODWORKING MACHINIST primary. The positive CA19-9 and polyclonal | | | CEA are strong evidence for a pancreatic or hepatobiliary primary. | | | Please correlate with imagingstudies. As part of [facility]' | | | Quality Improvement Program, this [...] | | and its performancecharacteristics determined by [facility]. | | | It has not been cleared or approved by the U.S. Food and Drug | | | Administration. The FDA has determined that such clearance or | | | approval is notnecessary. This test is used for clinical purposes. | | | It should not be regarded as investigational or for research. | | | [facility] is certified under the Clinical Laboratory | | | ImprovementAmendments of 1988 (CLIA) as qualified to perform high | | | complexity clinical laboratory testing. PERFORMING LABORATORY:The | | | technical component was performed by [facility], [address] [place] [address] | | | [place] [address] (Primer Inspector: Nissa Calle MD; CLIA# | | | [id number]). Frozen section was performed at [facility] | | | [address] [address] (Primer Inspector: | | | Ricardo Renteria M.D.; CLIA#: [id number]). The professional | | | interpretation [facility] | | | [facility], [address] [place] [address]. REASON FOR ADDENDUM:To | | | document review of material for external testing. ADDENDUM COMMENT:At | | | the request of Renay Zimmerman, archived slides and blocks for case | | | [id number] are retrieved on [employer] and reviewed by a | | | pathologist to assess adequacy for MS Profile testing. Block B2 was | | | sent to [employer]. AMB:[facility] Professional interpretation was | | | performed by [facility], [address] | | | [place] [address] (Primer Inspector: Ricardo | | | Russ Renteria; CLIA#: [id number]). Diagnostician: Ricardo Renteria | | | MDPathologistDiagnostician: Nissa Calle MDPathologistDiagnostician: | | | Deni Cui DOPathologistElectronically Signed 03/21/2020 | | |At the request of Renay Zimmerman, archived slides and blocks for case [id number] are retriev ed on [facility] [place] [place] and reviewed by a pathologist to assess adequacy for MS Profile rachell ting. | | | | | |Block B2 was sent to [employer]. | | | | | |AMB:[facility] | | | | | |Professional interpretation [facility], [address] [place] [address] (Primer Inspector: Ricardo Renteria M.D.; CLIA#: [id number]). | | | | | |Diagnostician: Ricardo [...] + + + | [facility] | [id number] | | [facility] | | | | | | LABORATORY | | + + + + + + | [facility] | Testing performed at | | [facility] | | | | [address] | | LABORATORY | | | | [address];[place] [address] | | | | + + + + + + + + | Specimen | + + | Blood | + + + + + + + | Performing | Address | City/State/Zipcode | Phone Number | | Organization | | | | + + + + + | [facility] | [address] | [place] [address] | [phone] | + + + + + PTT (02/27/2020 6:50 AM PDT) + + + + + + | Component | Value | Ref Range | Performed | Pathologist | | | | | At | Signature | + + + + + + | PTT | 30Comment: Testing | 23 - 32 seconds | [place] | | | | performed at [facility];[address] | | LABORATORY | | | | [address];[place] | | | | | | [address] | | | | + + + + + + + + | Specimen | + + | Blood | + + + + + + + | Performing | Address | City/State/Zipcode | Phone Number | | Organization | | | | + + + + + | [facility] | [address] | [place] [address] | [phone] | + + + + + Protime [...] | | | | | performed at [facility] | | | | | | [address] [facility];[place], [place] | | | | | | [address] | | | | + + + + + + + + | Specimen | + + | Blood | + + + + + + + | Performing | Address | City/State/Zipcode | Phone Number | | Organization | | | | + + + + + | [facility] | [address] | [place] [address] | [phone] | + + + + + CBC [...] 0.06Comment: Testing | 0.00 - 0.10 | [facility] | | | Absolute | performed at [facility];[address] | [address] | LABORATORY | | | | [address];[place] | | | | | | [address] | | | | + + + + + + + + | Specimen | + + | Blood | + + + + + + + | Performing | Address | City/State/Zipcode | Phone Number | | Organization | | | | + + + + + | [facility] | [address] | [place] [address] | [phone] | + + + + + Basic [...] | | | | | | MDRD IDMS traceable | | | | | | equation.Testing | | | | | | performed at [facility];[address] | | | | | | [address];[place], [place] | | | | | | [address] | | | | + + + + + + + + | Specimen | + + | Blood | + + + + + + + | Performing | Address | City/State/Zipcode | Phone Number | | Organization | | | | + + + + + | [facility] | [address] | [place] [address] | [phone] | + + + + + documented [...] +------+------+ +---+---+ | | | +---+---+ + +---------+ +---+-------+---+ | balanced electrolytes in water | New Bag | 02/27/20 | | 100 | | | (PLASMALYTE-148/NORMOSOL-R) | | 20 6:45 | | mL/hr | | | infusion at 100 mL/hr, | | AM PDT | | | | | Intravenous, CONTINUOUS, Starting | | | | | | | 02/27/20 at 0715, Pre-op | | | | | | + +---------+ +---+-------+---+ +---+---+ | | | +---+---+ + +-------+ +------+---+---+ | dexamethasone (DECADRON) tablet | Given | 02/28/20 | 2 mg | | | | 2 mg 2 mg, Oral, EVERY 12 HOURS | | 20 7:54 | | | | | (2 times per day), First dose on | | AM PDT | | | | | 02/27/20 at 2100, For 2 | | | | | | | doses, Post-op/Phase II | | | | | | + +-------+ +------+---+---+ +-------+ +------+---+---+ | Given | 02/27/20 | 2 mg | | | | | 20 [...] + +-------+ +--------+---+---+ | fentaNYL (PF) injection 25-50 | Given | 02/27/20 | 50 mcg | | | | mcg 25-50 mcg, Intravenous, | | 20 9:25 | | | | | EVERY 5 MIN PRN, Pain, Initial | | AM PDT | | | | | postop medication for URGENT PAIN | | | | | | | OR ESCALATING PAIN, Starting Tue | | | | | | | 02/27/20 at 0906, For 4 doses, | | | | | | | First dose must be lowest dose. | | | | | | | Use Pasero Sedation Scale. | | | | | | | [Opioid tolerant = One week or | | | | | | | longer, rzwzaq-yto-hqbzt use of | | | | | | | at least the following DAILY | | | | | | | dose: 60mg oral morphine, 60mg | | | | | | | oral hydrocodone, 30mg oral | | | | | | | oxycodone, 8mg oral | | | | | | | hydromorphone, fentanyl patch | | | | | | | 25mcg/hr, or equivalent dose of | | | | | | | another opioid], Recovery/Phase I | | | | | | + +-------+ +--------+---+---+ +-------+ +--------+---+---+ | Given | 02/27/20 | 50 mcg | | | | | 20 9:20 | | | | | | AM [...] | | | HOURS PRN, Pain, Starting Tue | | | | | [...] | | +---+---+ + +-------+ +--------+---+---+ | HYDROmorphone (DILAUDID) | Given | 02/27/20 | 0.2 mg | | | | injection 0.2-0.6 mg 0.2-0.6 mg, | | 20 9:57 | | | | | Intravenous, EVERY 5 MIN PRN, | | AM PDT | | | | | Pain, Starting 02/27/20 at | | | | | | | 0906, First dose must be lowest | | | | | | | dose, can increase subsequent | | | | | | | doses by 0.2mg within dosing | | | | | | | range. If patient meets opioid | | | | | | | tolerant definition, can start | | | | | | | with 0.4mg dose. [Maximum total | | | | | | | PACU dose 2 mg] Use Pasero | | | | | | | Sedation Scale. [Opioid tolerant | | | | | | | = One week or longer, | | | | | | | koxvnl-eur-xzyle use of at least | | | | | | | the following DAILY dose: 60mg | | | | | | | oral morphine, 60mg oral | | | | | | | hydrocodone, 30mg oral oxycodone, | | | | | | | 8mg oral hydromorphone, fentanyl | | | | | | | patch 25mcg/hr, or equivalent | | | | | | | dose of another opioid], | | | | | | | Recovery/Phase I | | | | | | + +-------+ +--------+---+---+ +-------+ +--------+---+---+ | Given | 02/27/20 | 0.4 mg | | | | | 20 9:43 | | | | | | AM PDT | | | | +-------+ +--------+---+---+ | Given | 02/27/20 | 0.4 mg | | | | | 20 9:30 | | | | | | AM [...] | | +---+---+ + +-------+ +------+---+---+ | oxyCODONE (ROXICODONE) tablet 5 | Given | 02/27/20 | 5 mg | | | | mg 5 mg, Oral, ONCE PRN, Pain, | | 20 10:25 | | | | | Starting Wed02/27/20 at 0906, For | | AM PDT | | | | | 1 dose, If able to take oral | | | | | | | medication., Recovery/Phase I | | | | | | + +-------+ +------+---+---+ +---+---+ | | | +---+---+ + +-------+ +---+---+---+ | povidone-iodine 5 % external | Given | 02/27/20 | | | | | solution Topical, PRN, Other, | | 20 6:45 | | | | | pre-op, Starting Wed02/27/20 at | | AM PDT | | | | | 0653, For 1 dose, Pre-op | | | | | | + +-------+ +---+---+---+ +---+---+ | | | +---+---+ documented in this encounter
--- OUTSIDE RECORDS SUMMARY | ~2020-07-17 | XMS | Encounter Summary ---
Demographics + + + | Address | [address] | | | [place] [address] | + + + | Home Phone [...] Team Providers + +------+ + | Care Practice Support Specialist Name | Role | Phone | [...] | +--------+ + + + + | 03/01/ | [facility] | [facility] | Milton Salazar | Malignant neoplasm | | 2017 | Encounter | [facility] | MD [address] | of thyroid gland | | | | ONCOLOGY CLINIC [address] | [address] [place] | (HCC) (Primary Dx); | | | | [facility] | [place] [address] | Non-small cell | | | | [place] [address] | [phone] | cancer of right lung | | | | [phone] | | (HCC) | +--------+ + + [...] + + + | Blood Pressure | 148/84 | 03/01/2017 9:12 AM | | | | | PDT | | + + + + + | Pulse | 70 | 03/01/2017 9:12 AM | | | | | PDT | | + + + + + | Temperature | 36.2 C (97.2 F) | 03/01/2017 9:12 AM | | | | | PDT | | + + + + + | Respiratory Rate | 16 | 03/01/2017 9:12 AM | | | | | PDT | | + + + + + | Oxygen Saturation | 100% | 03/01/2017 9:12 AM | | | | | PDT | | + + + + + | Inhaled Oxygen | - | - | | | Concentration | | | | + + + + + | Weight | 83.7 kg (184 lb 8.4 | 03/01/2017 9:12 AM | | | | oz) | PDT | | + + + + + | Height | - | - | | + + + + + | Body Mass Index | 28.06 | 11/04/2016 9:00 AM | | | [...] encounter Progress Notes Milton Salazar MD - 03/01/2017 9:40 AM PDTFormatting of this note might be diff erent from the original. Hem-Onc Progress Note [facility] Pt. Name/Age/: Olena Rider 56 y.o. 1960 Med. Record Number: [id number] Date of admission: 03/01/2017 Assessment and plan: 1. Non-small cell lung [...] abllation, Oct, 2016 Counseling session today first acknowledging severity of posttreatment nausea despite affec tive therapy for controlling chemo related nausea in the first 72 hours after treatment. No te also laboratory testing noticed increase in serum creatinine to greater than 1 mg percent with reciprocal declined and estimation of glomerular filtration to almost 40 mL per minute . 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 Based on it's severe the have recommended that keshawn ent switch habematolel analogs using instead carboplatin. This agent associated with considera óscar less gastrointestinal toxicity with comparable anti-neoplastic activity. Discussion concerning management of bruised ribs and costal cartilage and a mass patient to begin applying either sandbag or heavy to hold to help reduce respiratory motion as a means of helping reduce pain. Subjective: The patient chart and medications were reviewed in detail and the patient was seen and exam ined. Olena Rider is a 56 y.o. female returns today for a trae check having begun a first cycle of chemotherapy as postsurgical adjuvant treatment of lung cancer. Subjectively patient describes a period of almost 10 consecutive days of nausea occurring f rom the onset of chemotherapy earlier in the week before. Even this morning patient describ es a queasy feeling in her stomach although this is better than it had been at the middle of last week when patient was experiencing active emesis. This is had a diminishing effect on patient's continuing ability to work which was one of her objectives following earlier surg andrea. Patient experiencing severe enough nausea and emesis 2 of caused bruising in her chest wall and patient today describes marked tenderness along the right costal margin of the jeanine st. She tried suppressing this with an Prosper wrap but this only made matters worse. PSH: Reviewed, no changes to admission H&P. Review of Systems: Constitutional: COMPLAINS OF FATIGUE- SHE HAD A VERY ROUGH TIME AFTER CHEMO. Denies high fe vers, shaking chills, anorexia,COMPLIANS OF NAUSEA AND VOMITING- THE NAUSEA IS ALWAYS RIGHT THERE AND SHE ALSO HAS HEARTBURN. SHE VOMITED FOR 2 DAYS AFTER HER FIRST CHEMO, THE NAUSEA H NOT EVERY GONE AWAY, weight loss, or night sweats. APPETITE IS POOR Ear, Nose, Mouth, Throat: Denies odynophagia, dysphagia, DID HAVE RINGING IN HER EARS THAT CAME AND WENT Cardiovascular: SOB WITH EXERTION, chest pain, palpitations or orthopnea. Respiratory: Denies [...] rash, wounds or other skin concerns. Pain: EVER SINCE SHE VOMITED AFTER CHEMO, SHE HAS HAD A VERY CONSTANT PAIN ON HER RIGHT BERNARD E. IT IS WORSE WITH A DEEP BREATH , COUGH ETC. IT IS SORE TO TOUCH. Review of systems as above otherwise negative Scheduled Medications: Continuous Infusions: PRN Meds:. Allergy: Allergies Allergen Reactions Morphine And Related Other (See Comments) "unknown reaction - trouble breathing after hysterectomy" Objectives: Temp: 36.2 C (97.2 F) BP: 148/84 mmHg Pulse: 70 Resp: 16 SpO2: 100 % on Min/Max Temp past 24 hours:Temp Av.2 C (97.2 F) Min: 36.2 C (97.2 F) Max: 3 6.2 C (97.2 F) No intake or output data in the 24 hours ending 03/01/17 0940 Wt. Admission: Wt. Current: Physical Exam: Exam: General: The patient is alert and oriented. No acute distress. HEENT: PERRL, Oral mucosa intact. Neck is supple. Cardiovascular: Regular rate and rhythm, no murmur. Respiratory: Clear to auscultation and percussion. Breast: Not examined Abdomen: Tenderness to light palpation at right costal margin. Genitourinary: Deferred. Extremities: Nontender, no erythema, no [...] the Assessment and Plan. Recent Labs Lab 03/01/17 0905 WBC 6.7 HGB 12.5 HCT 36.6 PLT 248 Recent Labs Lab 03/01/17 0905 NA 136 K 3.2* CL 100 CO2 26 BUN 5* CREA 1.17 GLU 136* CALCIUM 9.0 ALBUMIN 3.8 Electronically signed by: Milton Salazar, 03/01/2017 9:40 [facility] TIME SPENT 25 MIN. > 50% AT BEDSIDE, WITH FAMILY/PATIENT IN CARE AND SERVICE WRITER ON UNIT AND CO ORDINATION OF CARE Portions of this chart may have been created with [employer] voice recognition software. Occasi onal wrong-word or sound-alike substitutions may have occurred due to the inherent cervantes itations of voice recognition software. Please read the chart carefully and recognize, using context, where these substitutions have occurred. Rodriguez Person RN - 03/01/2017 9:15 AM PDTREVIEW Memorado Constitutional: COMPLAINS OF FATIGUE- SHE HAD A VERY ROUGH TIME AFTER CHEMO. Denies high fe vers, shaking chills, anorexia,COMPLIANS OF NAUSEA AND VOMITING- THE NAUSEA IS ALWAYS RIGHT THERE AND SHE ALSO HAS HEARTBURN. SHE VOMITED FOR 2 DAYS AFTER HER FIRST CHEMO, THE NAUSEA H NOT EVERY GONE AWAY, weight loss, or night sweats. APPETITE IS POOR Ear, Nose, Mouth, Throat: Denies odynophagia, dysphagia, DID HAVE RINGING IN HER EARS THAT CAME AND WENT Cardiovascular: SOB WITH EXERTION, chest pain, palpitations or orthopnea. Respiratory: Denies [...] rash, wounds or other skin concerns. Pain: EVER SINCE SHE VOMITED AFTER CHEMO, SHE HAS HAD A VERY CONSTANT PAIN ON HER RIGHT BERNARD E. IT IS WORSE WITH A DEEP BREATH , COUGH ETC. IT IS SORE TO TOUCH. Note:OLENA HAD A VERY HARD TIME AFTER CHEMO. SHE VOMITED FOR 2 DAYS AFTER CHEMO AND IS S TILL NAUSEATED TODAY. My chart: AVIdodavid davenport this encounter Plan of Treatment +--------+ + + + + | Date | Type | Specialty | Care Team | Description | +--------+ + + + + | 11/22/ | Appointment | Radiation Oncology | Susie Montemayor | | | 2020 | | | MD [address] | | | | | | [place], [place] | | | | | | [address] | | | | | | | | +--------+ + + + + documented as of this encounter Procedures + +--------+ + + + | Procedure Name | Priori | Date/Time | Associated Diagnosis | Comments | | | ty | | | | + +--------+ + + + | CBC WITH | STAT | 03/01/2017 | Malignant neoplasm | Results for this | | DIFFERENTIAL | | 9:05 AM | of thyroid gland | procedure are in the | | | | PDT | (HCC) | results section. | + +--------+ + + + | COMPREHENSIVE | STAT | 03/01/2017 | Malignant neoplasm | Results for this | | METABOLIC PANEL | | 9:05 AM | of thyroid gland | procedure are in the | | | | PDT | (HCC) | results section. | + +--------+ + + + documented in this encounter Results Comprehensive Metabolic Panel (03/01/2017 9:05 AM PDT) + + + + + [...] + + + + | K | 3.2 (L) | 3.5 - 5.1 | [facility] | | | | | mmol/L | [facility] | | | | | | [facility] | | | | | | CENTER - | | | | | | LABORATORY | | + + + + + + | Cl | 100 | 98 - 109 mmol/L | [facility] [...] + + + | Anion Gap | 10 | 3 - 16 mmol/L | [facility] | | | | | | [facility] | | | | | | [facility] | | | | | | CENTER - | | | | | | LABORATORY | | + + + + + + | Glucose | 136 (H) | 70 - 109 mg/dL | [facility] | | | | | | [facility] | | | | | | [facility] | | | | | | CENTER - | | | | | | LABORATORY | | + + + + + + | BUN | 5 (L) | 7 - 18 mg/dL | [facility] | | | | | | [facility] | | | | | | [facility] | | | | | | CENTER - | | | | | | LABORATORY | | + + + + + + | Creatinine | 1.17 | 0.60 - 1.30 | [facility] | | | | | mg/dL | [facility] | | | | | | MEDICAL | | | | | | CENTER - | | | | | | LABORATORY | | + + + + + + | eGFR, | 48 (L)Comment: | >=60 | [facility] | | | non- | GLOMERULAR FILTRATION | mL/min/1.73m2 | [facility] | | | [place] | RATE,ESTIMATED | | MEDICAL | | | | mL/min/1.42s6Mqro than | | CENTER - | | [...] + + + + | Calcium | 9.0 | 8.3 - 10.5 | [facility] | [...] Total | appended report. These | | [facility] [...] + + + + | ALT | 22Comment: This is an | 6 - 45 [...] + + + + | Alkaline | 66Comment: This is an | 40 - 110 [...] + + + + | Globulin | 2.8 | 2.1 - 3.8 g/dL | [facility] | | | | | | [facility] | | | | | | MEDICAL | | | | | | CENTER - | | | | | | LABORATORY | | + + + + + + | Albumin/Yuli | 1.4 | 0.8 - 2.0 | [facility] | | | bulin Ratio | | | [facility] | | | | | | [facility] | | | | | | CENTER - | | | | | | LABORATORY | | + + + + + + | BUN/Creatin | 4.3 | | [facility] | | | ine Ratio | | | [facility] | | | | | | MEDICAL [...] [address] | [place] | [phone] | | [facility] | | [address] | | | - LABORATORY | | | | + + + + + CBC with Differential (03/01/2017 9:05 AM PDT) + +-------+ + + + | Component | Value | Ref Range | Performed | Pathologist | | | | | At | Signature | + +-------+ + + + | White Blood | 6.7 | 4.0 - 11.0 K/uL | [facility] | | | Cells | | | [facility] | | | | | | MEDICAL | | | | | | CENTER - | | | | | | LABORATORY | | + +-------+ + + + | Red Blood | 4.10 | 3.70 - 5.20 | [facility] | | | Cells | | M/uL | [facility] | | | | | | MEDICAL | | | | | | CENTER - | | | | | | LABORATORY | | + +-------+ + + + | Hemoglobin | 12.5 | 11.5 - 16.0 | [facility] | | | | | g/dL | [facility] | | | | | | MEDICAL | | | | | | CENTER - | | | | | | LABORATORY | | + +-------+ + + + | Hematocrit | 36.6 | 34.0 - 47.0 % | [facility] | | | | | | [facility] | | | | | | MEDICAL | | | | | | CENTER - | | | | | | LABORATORY | | + +-------+ + + + | MCV | 89.4 | 83.0 - 101.0 fL | [facility] [...] +-------+ + + + | MCHC | 34.1 | 32.0 - 36.0 | [facility] | | | | | g/dL | [facility] | | | | | | MEDICAL | | | | | | CENTER - | | | | | | LABORATORY | | + +-------+ + + + | RDW-CV | 13.4 | <15.0 % | [facility] | | | | | | [facility] | | | | | | [facility]ICAL | | | | | | CENTER - | | | | | | LABORATORY | | + +-------+ + + + | Platelet | 248 | 140 - 440 K/uL | [facility] [...] +-------+ + + + | % | 53.7 | 45.0 - 82.0 % | [facility] | | | Neutrophils | | | [facility] | | | | | | MEDICAL | | | | | | CENTER - | | | | | | LABORATORY | | + +-------+ + + + | % | 31.4 | 20.0 - 45.0 % | [facility] | | | Lymphocytes | | | [facility] | | | | | | MEDICAL | | | | | | CENTER - | | | | | | LABORATORY | | + +-------+ + + + | % Monocytes | 11.6 | 4.0 - 12.0 % | [facility] | | | | | | [facility] | | | | | | [facility]ICAL | | | | | | CENTER - | | | | | | LABORATORY | | + +-------+ + + + | % | 2.9 | 0.0 - 5.0 % | [facility] | | | Eosinophils | | | [facility] | | | | | | MEDICAL | | | | | | CENTER - | | | | | | LABORATORY | | + +-------+ + + + | % Basophils | 0.4 | 0.0 - 1.0 % | [facility] | | | | | | [facility] | | | | | | MEDICAL | | | | | | CENTER - | | | | | | LABORATORY | | + +-------+ + + + | Absolute | 3.60 | 1.80 - 8.50 | [facility] | | | Neutrophils | | K/uL | [facility] | | | | | | MEDICAL | | | | | | CENTER - | | | | | | LABORATORY | | + +-------+ + + + | Absolute | 2.10 | 0.60 - 3.20 | [facility] | [...] [place]. | [address] | [place] | [phone] | | [facility] | | [address] | | | - LABORATORY | | | | + + + + + documented in this encounter Visit Diagnoses + + | Diagnosis | + + | Malignant neoplasm of thyroid gland (HCC) - Primary Malignant neoplasm of thyroid | | gland | + + | Non-small cell cancer of right lung (HCC) | + + documented in this encounter
--- OUTSIDE RECORDS SUMMARY | ~2020-07-17 | XMS | Encounter Summary ---
Demographics + + + | Address | [address] | | | [place] [address] | + + + | Home Phone | | + + + | Preferred Language | Unknown | + + + | Marital Status | Single | + + + | Restoration Affiliation | Unknown | + + + [...] Team Providers + +------+ + | Care Tire Molder Name | Role | Phone | + +------+ + | Zuleyka Martínez | PCP | | + +------+ + Encounter Details +--------+ + + + + | Date | Type | Department | Care Team | Description | +--------+ + + + + | 02/14/ | Orders Only | [facility] | Lemuel Da Silva DO | Brain mass (Primary | | 2020 | | NEUROSURGERY [address] | Dx) | | | | [address] | [address] | | | | | [place], [place] | [place] [address] | | | | | [address] | [phone] | | | | | [phone] | | | +--------+ + + + [...] documented as of this encounter Progress Notes Lemuel Da Silva DO - 02/15/2020 9:30 AM PDTCalled patient regarding recent PET scan imagin g and discussions with oncology team. Appears that patient does not have easily accessible or clear active lesion throughout the body and recommendations have been made that right cau date lesion should be biopsied to determine which type of tumor it is as patient has very co mplex oncologic history. Called patient to discuss overall options including biopsy versus open resection and relati ve risk of each surgical intervention this time patient opts for stereotactic biopsy well aw are that this will not remove the entirety of the lesion and that his main goal is for diagn osis also aware of the relative risks of bleeding infection and possible need for further barnes rgery in the future. Patient was also advised that complete resection can have the most eff ective local control but does face significant risks as this is in a near an inoperable area of the brain Plan for stereotactic biopsy of brain lesion next week will route message into staff and or yola case request. Appears patient has had recent laboratory studies last month which should be sufficient may need PT/INR and any other preoperative work-up per the preoperative nurse Lemuel Da Silva D.O Board Certified Neurosurgeon / Chief of Neurosurgery [facility] [place] Office documented in this enc ounter Plan [...] [place] | | | | | | [address] | | | | | | | | +--------+ + + + + documented as of this encounter Visit Diagnoses + + | Diagnosis | + + | Brain mass - Primary Unspecified condition of brain | + + documented in this encounter"
--- OUTSIDE RECORDS SUMMARY | ~2020-07-17 | XMS | Encounter Summary ---
Demographics + + + | Address | [address] | | | [place] [address] | + + + | Home Phone | | + + + | Preferred Language | Unknown | + + + | Marital Status | Single | + + + | Scientologist Affiliation | Unknown | + + + [...] Team Providers + +------+ + | Care Working Second Hand Name | Role | Phone | + +------+ + | Zuleyka Martínez | PCP | | + +------+ + Reason for Visit +--------+--------+ + | Reason | Onset | Comments | | | Date | | +--------+--------+ + | Other | 04/21/ | Survivorship | | | 2017 | | +--------+--------+ + Encounter Details +--------+ + + + + | Date | Type | Department | Care Team | Description | +--------+ + + + + | 04/21/ | Telephone | [facility] | Serenity Dunn, | Other (Survivorship) | | 2017 | | [facility] | RN | | | | | ONCOLOGY CLINIC [address] | | | | | | [address] | | | | | | [place] [address] | | | | | | [phone] | | | +--------+ + + + [...] Telephone Encounter - Serenity Dunn RN - 04/21/2017 12:08 PM PDTOlena returned my c all, she will appreciate having her survivorship visit on Wednesday while she is here for her l ast chemo. I will not be available on Wednesday but have talked to Zuleyka Herbert RN and bernard will be delivering Olena's care plan and having the survivorship visit. I let Olena know Zuleyka would be the one meeting with her so she is aware and that either Myself or Seymour ewing would be also following up with her a month after her treatment completion. She was a greeable with this plan and had no questions at this time. elephone Encounter - Serenity Dunn RN - 04/21/20 10:28 AM Cornelia is finishing chemo on 04/23/17 and I was calling to talk to her about a survivorship visit, no answer, I left a message asking her to call me back. documented in this encounter Plan of Treatment +--------+ + + + + | Date | Type | Specialty | Care Team | Description | +--------+ + + + + | 11/22/ | Appointment | Radiation Oncology | Susie Montemayor | | | 2020 | | | MD [address] | | | | | | [place] | | | | | | [id number] | | | | | | | | +--------+ + + + + documented as of this encounter Visit Diagnoses Not on filedocumented in this encounter"
--- OUTSIDE RECORDS SUMMARY | ~2020-07-17 | XMS | Encounter Summary ---
Demographics + + + | Address | [address] | | | [place] [address] | + + + | Home Phone | | + + + | Preferred Language | Unknown | + + + | Marital Status | Single | + + + | Latter Day Affiliation | Unknown | + + + | Race | White | + + + | Ethnic Group | Not or | + + + Author + + + | Author | [facility] | | | and [place] | + + + | Organization | [facility] | | | [...] Team Providers + +------+ + | Care Supervisor Broadloom Name | Role | Phone | + [...] | Non-small | Susie M, | [address] | | | | | cell cancer | MD [address] | [place], | | | | | of right | [address] | [place] [address] | | | | | lung (HCC) | [place], | Phone: | | | | | Procedures | [place] [address] | [phone] | | | | | CT Chest | Phone: | Fax: | | | | | Abdomen | [phone] | [phone] | | | | | Pelvis w | Fax: | | | | | | Contrast | [phone] | | +--------+--------+ + + + + [...] | Non-small | Susie M, | [address] | | | | | cell cancer | [address] | [place], | | | | | of right | [address] | [place] [address] | | | | | lung (HCC) | [place], | Phone: | | | | | Procedures | [place] [address] | [phone] | | | | | CT Chest | Phone: | Fax: | | | | | Abdomen | [phone] | [phone] | | | | | Pelvis w | Fax: | | | | | | Contrast | [phone] | | +--------+--------+ + + + + Encounter Details +--------+ + + + + | Date | Type | Department | Care Team | Description | +--------+ + + + + | 05/27/ | Hospital | [facility] | Susie Montemayor | Non-small cell | | 2020 | Encounter | MED CTR [address] | MD Jared [address] | cancer of right lung | | | | [place], | [place] | ([facility]) | | | | [place] [address] | [address] | | | | | [phone] | | | +--------+ + + + [...] [place] | | | | | | [address] | | | | | | | [...] the | | | | PDT | ([facility]) | results section. | + +--------+ + [...] Procedure Note | + + | Christopher, [id number] - 05/28/2020 1:20 PM PDT TECHNIQUE: After [...] abnormality. Stable | | sclerotic lesion at [id number] body and probable bone island at the [...]
--- OUTSIDE RECORDS SUMMARY | ~2020-07-17 | XMS | Encounter Summary ---
Demographics + + + | Address | [address] | | | [place] [address] | + + + | Home Phone | | + + + | Preferred Language | Unknown | + + + | Marital Status | Single | + + + | Mandaeism Affiliation | Unknown | + + + [...] Team Providers + +------+ + | Care Adoption Services Manager Name | Role | Phone | [...] | | | [address] [place] | [place] [address] | | | | | [place] [address] | | | | | | [phone] | | | +--------+ + + + [...] [address] | | | | | | [place], [place] | | | | | | [address] | | | | | | | | +--------+ + + + + documented as of this encounter Procedures + +--------+ + + + | Procedure Name | Priori | Date/Time | Associated Diagnosis | Comments | | | ty | | | | + +--------+ + + + | ADAM DIGITAL | Routin | 07/26/2014 | | Results for this | | SCREENING BILATERAL | e | 12:00 AM | | procedure are in the | | | | PDT | | results section. | + +--------+ + + + documented in this encounter Results ADAM Digital Screening Bilateral (07/26/2014 12:00 AM PDT) + + | Specimen [...]
--- OUTSIDE RECORDS SUMMARY | ~2020-07-17 | XMS | Encounter Summary ---
Demographics + + + | Address | [address] | | | [place] [address] | + + + | Home Phone | | + + + | Preferred Language | Unknown | + + + | Marital Status | Single | + + + | Moravian Affiliation | Unknown | + + + [...] Providers + +------+ + | Care Supervisor Decorating Name | Role | Phone | + +------+ + | Zuleyka Martínez | PCP | | + +------+ + Encounter Details +--------+ + + + + | Date | Type | Department | Care Team | Description | +--------+ + + + + | 02/22/ | Preadmit | [facility] | Lemuel Da Silva DO | | | 2019 | Visit | CENTER [facility] | [address] | | | | | CLINIC [address] | | | | [address] [place], [place] | [place] [address] | | | | | [address] | [phone] | | | | | [phone] | | | +--------+ + + + [...] documented as of this encounter Miscellaneous Notes Preadmit Clinic Note - Itzel Matthews RN - 02/23/2020 8:00 AM PDTPhone Interview, patient aware ride will need to wait outside hospital. Instructions given, questions answered. >4 mets per AHA guidelines for non emergent surgery. Denies cardiac hx, CP or SOB. SSI instructions initiated, unable to obtain Hibiclens, will use own soap, directions give n to patient. documented in this encounter Plan of Treatment +--------+ + + + + | Date | Type | Specialty | Care Team | Description | +--------+ + + + + | 11/22/ | Appointment | Radiation Oncology | Susie Montemayor | | | 2020 | | | MD [address] | | | | | | [place], [place] | | | | | | [address] | | | | | | | | +--------+ + + + + documented as of this encounter Visit Diagnoses Not on filedocumented in this encounter"
--- OUTSIDE RECORDS SUMMARY | ~2020-07-17 | XMS | Encounter Summary ---
Demographics + + + | Address | [address] | | | [place] [address] | + + + | Home Phone | | + + + | Preferred Language | Unknown | + + + | Marital Status | Single | + + + | Methodist Affiliation | Unknown | + + + [...] Team Providers + +------+ + | Care Freight Solicitor Name | Role | Phone | + [...] | | | [address] [place] | [place] [address] | | | | | [place] [address] | | | | | | [phone] | | | +--------+ + + + [...] [address] | | | | | | [place], [place] | | | | | | [address] | | | | | | | [...] | | BIOPSY RIGHT | e | 12:00 AM | | procedure are in the | | | | PDT | | results section. | + +--------+ + + + documented in this encounter Results US Guided Breast Biopsy Right (06/15/2019 12:00 AM PDT) + + | Specimen [...]
--- OUTSIDE RECORDS SUMMARY | ~2020-07-17 | XMS | Encounter Summary ---
Demographics + + + | Address | [address] | | | [place] [address] | + + + | Home Phone | | + + + | Preferred Language | Unknown | + + + | Marital Status | Single | + + + | Episcopal Affiliation | Unknown | + + + [...] Team Providers + +------+ + | Care Mining Helper Name | Role | Phone | [...] | 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, | [place] | | | | | adenocarcino | MD [address] | [place], | | | | | ma of brain | [address] | [place] [address] | | | | | (HCC) | [place], | Phone: | | | | | Procedures | [place] [address] | [phone] | | | | | CT Treatment | Phone: | Fax: | | | | | Plan | [phone] | [phone] | | | | | Complex | Fax: | | | | | | | [phone] | | +--------+--------+ + + + + [...] | 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, | [place] | | | | | adenocarcino | MD [address] | [place], | | | | | ma of brain | [address] | [place] [address] | | | | | (HCC) | [place], | Phone: | | | | | Procedures | [place] [address] | [phone] | | | | | CT Treatment | Phone: | Fax: | | | | | Plan | [phone] | [phone] | | | | | Complex | Fax: | | | | | | | [phone] | | +--------+--------+ + + + + Encounter Details +--------+ + + + + | Date | Type | Department | Care Team | Description | +--------+ + + + + | 03/11/ | Hospital | [facility] | Susie Montemayor | 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
--- OUTSIDE RECORDS SUMMARY | ~2020-07-17 | XMS | Encounter Summary ---
Demographics + + + | Address | [address] | | | [place] [address] | + + + | Home Phone | | + + + | Preferred Language | Unknown | + + + | Marital Status | Single | + + + | Zoroastrian Affiliation | Unknown | + + + [...] Phone | + + +---------+ + | Jenniefr Holt | ECON | Unknown | | + + +---------+ + | Oksana Vitale | ECON | Unknown | | + + +---------+ + Care Team Providers + +------+ + | Care General Milling Superintendent Name | Role | Phone | + [...] | ONCOLOGY [address] | [place], [place] | | | | | [place], | [address] | | | | | [place] [address] | | | | | | [phone] | | | +--------+ + + + [...] is leaving to see Dr. Mon in [place] tomorrow. She will resched lucien when she [...] [place] | | | | | | [place], [place] | | | | | | [address] | | | | | | | | +--------+ + + + + documented as of this encounter Visit Diagnoses Not on filedocumented in this encounter"
--- OUTSIDE RECORDS SUMMARY | ~2020-07-17 | XMS | Encounter Summary ---
Demographics + + + | Address | [address] | | | [place] [address] | + + + | Home Phone [...] Team Providers + +------+ + | Care Apron Man Name | Role | Phone | + [...] | MD [address] | [address] | | | | | Procedures | [address] | [place], | | | | | [place] | [place], | [place] | | | | | Radiopharm | [place] [address] | [address] | | | | | Therapy Oral | Phone: | Phone: | | | | | | [phone] | [phone] | | | | | Administrati | Fax: | Fax: | | | | | o [place] [address] | [phone] | [phone] | | | | | IODIDE CAP, [...] | Radiology | Diagnoses | Albina, | Bertin Nuclear | | | | | Thyroid | Susie Coleman, | Medicine | | | | | cancer (HCC) | [address] | [address] | | | | | Procedures | [address] | [place], | | | | | [place] | [place], | [place] | | | | | Radiopharm | [place] [address] | [address] | | | | | Therapy Oral | Phone: | Phone: | | | | | | [phone] | [phone] | | | | | Administrati | Fax: | Fax: | | | | | o [place] [address] | [phone] | [phone] | | | | | IODIDE CAP, | | | | | | | RX | | | +--------+--------+ + + + + Encounter Details +--------+ + + + + | Date | Type | Department | Care Team | Description | +--------+ + + + + | 10/14/ | Hospital | [facility] | Susie Montemayor | Thyroid cancer (HCC) | | 2016 | Encounter | MED CTR NUCLEAR | MD Jared [address] | | | | | MEDICINE [address] | [place], [place] | | | | | [place], | [address] | | | | | [place] [address] | | | | | | [phone] | | | +--------+ + + + [...] | Appointment | Radiation Oncology | Susie Montmeayor | | | 2020 | | | MD Jared [address] | | | | | | [facility] [place] [facility] | | | | | | [address] | | | | | | | | +--------+ + + + + documented as of this encounter Procedures + +--------+ + + + | Procedure Name | Priori | Date/Time | Associated Diagnosis | Comments | | | ty | | | | + +--------+ + + + | [place] RADIOPHARM | Routin | 10/14/2016 | Thyroid cancer | Results for this | | THERAPY ORAL | e | 9:21 AM | (HCC) | procedure are in the | | ADMINISTRATION | | PST | | results section. | + +--------+ + + + documented in this encounter Results [place] Radiopharm Therapy Oral Administratio (10/14/2016 9:21 [...] + +--------+ + +------+------+ | iodine I-131 (therapeutic) | Given | 10/14/20 | 94.1 | | | | capsule 100 millicurie 100 | | 16 9:20 | -millicu | | | | -millicurie, Oral, ONCE PRN, | | AM PST | raquel | | | | Other, Starting 10/14/16 at | | | | | | | 0920, For 1 dose, Nuclear | | | | | | | Medicine | | | | | | + +--------+ + +------+------+ +---+---+ | | | +---+---+ documented in this encounter"
--- OUTSIDE RECORDS SUMMARY | ~2020-07-17 | XMS | Encounter Summary ---
Demographics + + + | Address | [address] | | | [place] [address] | + + + | Home Phone [...] Team Providers + +------+ + | Care Tape Recorder Repairer Name | Role | Phone | + [...] | | | [address] [place] | [place] [address] | | | | | [place] [address] | | | | | | [phone] | | | +--------+ + + + [...] [address] | | | | | | [facility] [place] | | | | | | [address] | | | | | | | [...] + documented in this encounter Results [place] Node Injection wo Images (07/06/2019 12:10 AM [...]
--- OUTSIDE RECORDS SUMMARY | ~2020-07-17 | XMS | Encounter Summary ---
Demographics + + + | Address | [address] | | | [place] [address] | + + + | Home Phone [...] Team Providers + +------+ + | Care Securities Counselor Name | Role | Phone | + +------+ + | Zuleyka Martínez | PCP | | + +------+ + Encounter Details +--------+ + + + + | Date | Type | Department | Care Team | Description | +--------+ + + + + | 06/17/ | Hospital | [facility] | Conversion | Other nonspecific | | 2016 | Encounter | [facility] NUCLEAR | Transaction, | abnormal finding of | | | | MEDICINE [address] | Provider Unknown | lung field | | | | [address] | [phone] | | | | | [place], [place] | | | | | | [address] | | | | | | [phone] | | | +--------+ + + + [...] [place] | | | | | | [id number] | | | | | | | | +--------+ + + + + documented as of this encounter Procedures + +--------+ + + + | Procedure Name | Priori | Date/Time | Associated Diagnosis | Comments | | | ty | | | | + +--------+ + + + | PET CT SKULL BASE TO | Routin | 06/17/2016 | | Results for this | | MID THIGH | e | 12:34 PM | | procedure are in the | | | | PDT | | results section. | + +--------+ + + + | POC GLUCOSE | Routin | 06/17/2016 | | Results for this | | | e | 10:27 AM | | procedure are in the | | | | PDT | | results section. | + +--------+ + + + documented in this encounter Results PET CT Skull Base To Mid Thigh (06/17/2016 12:34 PM PDT) + + | Specimen | + + | | + + + + + | Impressions | Performed At | + + + | 1. 7 mm RIGHT lower lobe pulmonary nodule, probably malignant. | | | CT-guided percutaneous needle biopsy appears difficult due to the | | | small size of the nodule. 2. 20 mm nodule in the RIGHT thyroid | | | lobe, suspicious. Ultrasound-guided fine-needle aspiration of this | | | nodule is indicated. 3. 2 smaller LEFT thyroid nodules demonstrate | | | intermediate FDG uptake, mildly suspicious. 4. Solitary LEFT | | | inguinal lymph node uptake, probably indicating a reactive lymph node. | | | 5. Probable inflammatory uptake in the gallbladder, nonspecific. | | | 6. No osseous PET abnormalities. | | + + + + + + | Narrative | Performed At | + + + | [facility] PET CT TUMOR LOCALIZATION INITIAL - [place] | | | 06/17/2016 12:34 PM History: 55 years. Female. RIGHT lung | | | solitary pulmonary nodule noted on outside CT examination. | | | Questionable bone metastases. Solitary pulmonary evaluation. | | | Technique: The patient fasted 4 hours. The serum blood glucose was | | | 80 mg/dL. An intravenous administration of 14.3 millicuries of F-18 | | | fluorodeoxyglucose(FDG) was given, followed by 45 minutes of rest for | | | tissue uptake. The patient was then scanned from the base of the | | | brain to the upper thighs with a dual PET/CT scanner. The CT scan | | | was used for attenuation correction and anatomic fusion imaging of the | | | PET and CT images. Findings: A RIGHT lower lobe pulmonary | | | nodule is visualized on CT image 106, 7 mm in diameter, with a maximum | | | SUV of 3.7. This degree of FDG uptake in a small 7 mm nodule is | | | suspicious for malignancy. Given the small size of the nodule, | | | CT-guided needle lung biopsy has a low probability of success. | | | No other pulmonary nodules or pleural effusions visualized. No | | | mediastinal adenopathy or hilar abnormalities are identified. A | | | mildly enlarged LEFT inguinal lymph node measures 12 mm, CT image 233 | | | with a maximum SUV of 5.5, suggesting possible malignant disease or | | | reactive inflammation. There is no other evidence of inguinal, iliac | | | or retroperitoneal lymphadenopathy. No axillary or cervical | | | adenopathy identified. 3 separate thyroid nodules are visualized. | | | The large RIGHT thyroid nodule is suspicious and ultrasound-guided | | | fine-needle aspiration is indicated for further evaluation. 1. | | | RIGHT thyroid lobe, CT image 62, 20 mm, 16.6 maximum SUV. 2. LEFT | | | thyroid nodule, CT image 61, 7 mm, 3.9 Max SUV. 3. LEFT thyroid | | | nodule, CT image 63, 10 mm, 6.1 Max SUV. Abnormally high FDG | | | uptake is noted in the gallbladder, 7.1 Max SUV, without visible | | | calcification. The gallbladder volume is normal. The gallbladder | | | wall is thin and normal. The cause of this abnormal uptake is | | | uncertain, but appears inflammatory. No skeletal abnormalities | | | detected. Esophageal FDG secretion is physiologic. Normal urinary | | | excretion of FDG is noted. Some RIGHT colonic physiological FDG | | | secretion is visualized. Sigmoid colonic nodular FDG physiological | | | uptake is also noted. | | + + + + + | Procedure Note | + + | Christopher, Rad Conversion - 06/15/2019 8:45 PM PDT [facility] | | LOCALIZATION INITIAL - [place]06/17/2016 12:34 PM History: 55 years. Female. RIGHT lung | | solitary pulmonary nodule noted on outside CT examination. Questionable bone | | metastases. Solitary pulmonary evaluation. Technique: The patient fasted 4 hours. The | | serum blood glucose was 80 mg/dL. An intravenous administration of 14.3 millicuries of | | F-18 fluorodeoxyglucose(FDG) was given, followed by 45 minutes of rest for tissue | | uptake. The patient was then scanned from the base of the brain to the upper thighs | | with a dual PET/CT scanner. The CT scan was used for attenuation correction and | | anatomic fusion imaging of the PET and CT images. Findings: A RIGHT lower lobe | | pulmonary nodule is visualized on CT image 106, 7 mm in diameter, with a maximum SUV of | | 3.7. This degree of FDG uptake in a small 7 mm nodule is suspicious for malignancy. | | Given the small size of the nodule, CT-guided needle lung biopsy has a low probability | | of success. No other pulmonary nodules or pleural effusions visualized. No mediastinal | | adenopathy or hilar abnormalities are identified. A mildly enlarged LEFT inguinal lymph | | node measures 12 mm, CT image 233 with a maximum SUV of 5.5, suggesting possible | | malignant disease or reactive inflammation. There is no other evidence of inguinal, | | iliac or retroperitoneal lymphadenopathy. No axillary or cervical adenopathy | | identified. 3 separate thyroid nodules are visualized. The large RIGHT thyroid nodule | | is suspicious and ultrasound-guided fine-needle aspiration is indicated for further | | evaluation.1. RIGHT thyroid lobe, CT image 62, 20 mm, 16.6 maximum SUV.2. LEFT thyroid | | nodule, CT image 61, 7 mm, 3.9 Max SUV.3. LEFT thyroid nodule, CT image 63, 10 mm, 6.1 | | Max SUV. Abnormally high FDG uptake is noted in the gallbladder, 7.1 Max SUV, without | | visible calcification. The gallbladder volume is normal. The gallbladder wall is thin | | and normal. The cause of this abnormal uptake is uncertain, but appears inflammatory. | | No skeletal abnormalities detected. Esophageal FDG secretion is physiologic. Normal | | urinary excretion of FDG is noted. Some RIGHT colonic physiological FDG secretion is | | visualized. Sigmoid colonic nodular FDG physiological uptake is also noted. IMPRESSION: | | 1. 7 mm RIGHT lower lobe pulmonary nodule, probably malignant. CT-guided | | percutaneous needle biopsy appears difficult due to the small size of the nodule.2. 20 | | mm nodule in the RIGHT thyroid lobe, suspicious. Ultrasound-guided fine-needle | | aspiration of this nodule is indicated.3. 2 smaller LEFT thyroid nodules demonstrate | | intermediate FDG uptake, mildly suspicious.4. Solitary LEFT inguinal lymph node uptake, | | probably indicating a reactive lymph node.5. Probable inflammatory uptake in the | | gallbladder, nonspecific.6. No osseous PET abnormalities. | | | + + POC Glucose (06/17/2016 10:27 AM PDT) + + + + + + | Component | Value | Ref Range | Performed | Pathologist | | | | | At | Signature | + + + + + + | Glucose, | 80Comment: Testing | 65 - 99 mg/dL | EXTERNAL | | | Fingerstick | performed at [facility];[address] | | LAB | | | | [place] | | | | | | [address] | | | | + + + + + + + + | Specimen | + + | | + + + +---------+ + + | Performing | Address | City/State/Zipcode | Phone Number | | Organization | | | | + +---------+ + + | EXTERNAL LAB | | | | + +---------+ + + documented in this encounter Visit Diagnoses + + | Diagnosis | + + | Other nonspecific abnormal finding of lung field | + + documented in this encounter"
--- OUTSIDE RECORDS SUMMARY | ~2020-07-17 | XMS | Encounter Summary ---
Demographics + + + | Address | [address] | | | [place] [address] | + + + | Home Phone [...] + + + | Author | [facility] | | | and [place] | + + + | Organization | [facility] | | | and [...] Team Providers + +------+ + | Care Helicopter Dispatcher Name | Role | Phone | + +------+ + | Zuleyka Martínez | PCP | | + +------+ + Reason for Visit +---------+--------+ + | Reason | Onset | Comments | | | Date | | +---------+--------+ + | Testing | 03/14/ | [facility] | | | 2020 | | +---------+--------+ + Encounter Details +--------+ + + + + | Date | Type | Department | Care Team | Description | +--------+ + + + + | 03/14/ | Telephone | [facility] | Ashley Doty RN | Testing ([facility] ) | | 2020 | | MED CTR MEDICAL | | | | | | ONCOLOGY CLINIC [address] | | | | | | [address] | | | | | | [place] [address] | | | | | | [phone] | | | +--------+ + + + [...] Telephone Encounter - Ashley Doty RN - 04/08/2020 8:12 AM PDTReceived test results fro mike Caicedo. I gave Dr. Salazar a copy of the results, which he will follow up Olena and c all her. I will be mailing an official copy of the results per Olena request to: [address] [place] [address] [place] [address] I will also be taking a copy to HIM to be scanned into [employer]. elephone Encounter - Ashley Doty RN - 03/28/2020 10:49 AM PDTReceived a fax from [facility] stating they needed a letter of medical necessity. I had Dr. Salazar signed the letter. I have fax Dr. Salazar progress note (03/26/20), p athology report ([id number]), and medical necessity letter to [facility]. Fax confirmation receive d on 03/28/20 @ [id number]. e lephone Encounter - Ashley Doty RN - 03/14/2020 11:06 AM PDTDr. Salazar is requesting additional testing through [facility] on the right periventricular mass biopsy obtain on 02/27/20 . I have submitted the requisition form online. Dr. Salazar progress note (02/14/20), ashley grahamgy report (specimen A), and a copy of her insurance card. Confirmation received on @ [id number]. documented in this encounter Plan of Treatment [...] [place] | | | | | | [id number] | | | | | | | | +--------+ + + + + documented as of this encounter Visit Diagnoses Not on filedocumented in this encounter"
--- OUTSIDE RECORDS SUMMARY | ~2020-07-17 | XMS | Encounter Summary ---
Demographics + + + | Address | [address] | | | [place] [address] | + + + | Home Phone [...] Team Providers + +------+ + | Care Cream Hauler Name | Role | Phone | + +------+ + | Zuleyka Martínez | PCP | | + +------+ + Reason for Visit +--------+--------+ + | Reason | Onset | Comments | | | Date | | +--------+--------+ + | Other | 03/30/ | | | | 2017 | | +--------+--------+ + Encounter Details +--------+ + + + + | Date | Type | Department | Care Team | Description | +--------+ + + + + | 03/30/ | Telephone | [facility] | Milton Salazar | Other | | 2017 | | MED CTR MEDICAL | MD Beb[address] | | | | | ONCOLOGY CLINIC [address] | [facility] | | | | | [address] | [place] [address] | | | | | [place] [address] | [phone] | | | | | [phone] | | | +--------+ + + + [...] this encounter Miscellaneous Notes Telephone Encounter - Marlene Barclay RN - 03/30/2017 11:37 AM PDTPatient notified of Augmentin use and transferred to [facility] in scheduling to schedule follow up with Dr Sly summers. elephone Milton Ang MD - 03/30/2017 11:32 AM PDTBegin oral antibiotic thera py with Augmentin 500 mg twice daily for 7 days. Patient should follow-up for office visit in the interim to evaluate likely sinusitis elephone Encounter - Marlene Barclay RN - 03/30/2017 11 :00 AM PDTCall returned: headaches behind eyes not relieved by prn Tylenol or Ibuprofen expe rienced since yesterday but has not felt well the past few days. Eyes feel swollen. Nasal s tuffiness reported but drainage is clear. Fever last pm was 100.5 F. Appetite is poor the past few days. Has been hydrating well. Uses [facility] in [place], [place]. elephone Adriana Langley - 03/30/2017 10:16 AM PDTMichelle called concerned that she is not feel ing well, experiencing Headaches and sinus pressure. Please return call, thank you.Analilia chan signed by Adriana Gupta at 03/30/2017 10:17 AM PDTdocumented in this encounter Plan of Treatment +--------+ + + + + | Date | Type | Specialty | Care Team | Description | +--------+ + + + + | 11/22/ | Appointment | Radiation Oncology | Susie Montemayor | | | 2020 | | | MD Jared [address] | | | | | | [place], [place] | | | | | | [address] | | | | | | | | +--------+ + + + + documented as of this encounter Visit Diagnoses + + | Diagnosis | + + | Sinusitis, unspecified chronicity, unspecified location - Primary | + + documented in this encounter"
--- OUTSIDE RECORDS SUMMARY | ~2020-07-17 | XMS | Encounter Summary ---
Demographics + + + | Address | [address] | | | [place] [address] | + + + | Home Phone [...] Author + + + | Author | [facility] | | | and [place] | + + + | Organization | [facility] | | | and [place] | + + + | Address | Unknown | + + + | Phone | Unavailable | + + + Support + + +---------+ + | Name | Relationship | Address | Phone | + + +---------+ + | Jeninfer Rider | ECON | Unknown | | + + +---------+ + | Oksana Vitale | ECON | Unknown | | + + +---------+ + Care Team Providers + +------+ + | Care Motion Picture Operator Name | Role | Phone | [...] [place], [place] | | | | | [place], | [address] | | | | | [place] [address] | | | | | | [phone] | | | +--------+ + + + [...] | | | | | | [place], [place] | | | | | | [address] | | | | | | | [...] Mauricio Upton MD 11/20/2016 | | | 16:05[facility] | | | | | |IMPRESSION: [...] Mauricio Upton MD 11/20/2016 16:05 | | |[facility] | | + + + documented in this encounter Visit Diagnoses + + | Diagnosis | + + | Lung nodule - Primary Solitary pulmonary nodule | + + documented in this encounter"
--- OUTSIDE RECORDS SUMMARY | ~2020-07-17 | XMS | Encounter Summary ---
Demographics + + + | Address | [address] | | | [place] [address] | + + + | Home Phone [...] Team Providers + +------+ + | Care Flue Dust Laborer Name | Role | Phone | + [...] | | Non-small | Salazar, | [address] [place] | | | | | cell cancer | Milton | [place], | | | | | of right | [place] | [place] [address] | | | | | lung (HCC) | [address] | Phone: | | | | | Procedures | [place] | [phone] | | | | | CT Chest w | [place] | Fax: | | | | | Contrast | [address] | [phone] | | | | | | Phone: | | | | | | | [phone] | | | | | | | Fax: | | | | | | | [phone] | | +--------+--------+ + + + + [...] | | Non-small | Marie | [address] [place] | | | | | cell cancer | Milton | [place], | | | | | of right | [place] | [place] [address] | | | | | lung (HCC) | [address] | Phone: | | | | | Procedures | [place] | [phone] | | | | | CT Chest w | [place] | Fax: | | | | | Contrast | [address] | [phone] | | | | | | Phone: | | | | | | | [phone] | | | | | | | Fax: | | | | | | | [phone] | | +--------+--------+ + + + + Encounter Details +--------+ + + + + | Date | Type | Department | Care Team | Description | +--------+ + + + + | 08/17/ | Hospital | [facility] | Milton Salazar | Non-small cell | | 2017 | Encounter | MED [facility] [address] | MD [place] [address] | cancer of right lung | | | | [place], | [address] [place] | ([facility]) | | | | [place] [address] | [place] [address] | | | | | [phone] | [phone] | | | | | | | [...] [place] | | | | | | [address] | | | | | | | | +--------+ + + + + documented as of this encounter Procedures + +--------+ + + + | Procedure Name | Priori | Date/Time | Associated Diagnosis | Comments | | | ty | | | | + +--------+ + + + | CT CHEST W CONTRAST | Routin | 08/17/2017 | Non-small cell | Results for this | | | e | 11:45 AM | cancer of right lung | procedure are in the | | | | PDT | (HCC) | results section. | + +--------+ + + + documented in this encounter Results CT Chest w Contrast (08/17/2017 11:45 AM PDT) + + | Specimen | + + | | + + + + + | Narrative | Performed At | + + + | EXAM: CT CHEST WITH CONTRAST:08/17/2017 11:04 AM HISTORY: | [facility] | | restaging lung cancer COMPARISON: CT chest dated April 16, 2017 and | | | September 23, 2016 outside abdomen dated January 02, 2016. | | | TECHNIQUE: Axial images are obtained from thoracic inlet to upper | | | abdomen during the uneventful administration of 75 mL of Omnipaque | | | 350. DOSE: DLP 272.68 mGy-cm FINDINGS: Lungs: | | | Centrilobular emphysema is mild. Stable 3 mm noncalcified nodule in | | | the lingula (series 4, image 88). There is a new 3 mm noncalcified | | | nodule in the left upper lobe along the major fissure (series 4, | | | image 54). Postsurgical changes in the right lower lobe. | | | Decreased size of a loculated fluid collection in the medial right | | | lower lobe. Heart and mediastinum: Slight rightward shifting of | | | the mediastinal structures. No mediastinal or hilar lymphadenopathy. | | | Chest wall: No axillary or visible supraclavicular | | | lymphadenopathy. Upper abdomen: Stable multiple subcentimeter | | | hypodensities in the right and left lobes. These are likely small | | | cysts. No visible suspicious liver lesions. Stable low-density | | | left adrenal nodule. Bones: There are no suspicious lytic or | | | blastic bone lesions. There is a stable vague area of sclerosis in | | | L1. IMPRESSION - Postsurgical changes in the right | | | hemithorax. No evidence for disease progression or metastatic | | | spread. Recommendation: Continue appropriate restaging follow-up | | | and/or lung cancer screening. Dictated and Signed by: Milton Mcnair | | | MD Renate Electronically signed: 08/17/2017 12:54 PM | | + + + + + | Procedure Note | + + | Christopher, Rad Results In - 08/17/2017 12:57 PM PDT EXAM: CT CHEST WITH CONTRAST:08/17/2017 | | 11:04 AMHISTORY: restaging lung cancerCOMPARISON: CT chest dated April 16, 2017 and | | September 23, 2016 outside abdomendated January 02, 2016.TECHNIQUE: Axial images are | | obtained from thoracic inlet to upper abdomen duringthe uneventful administration of 75 | | mL of Omnipaque 350.DOSE: DLP 272.68 mGy-cm FINDINGS:Lungs: Centrilobular emphysema is | | mild. Stable 3 mm noncalcified nodule in thelingula (series 4, image 88). There is a | | new 3 mm noncalcified nodule in theleft upper lobe along the major fissure (series 4, | | image 54). Postsurgicalchanges in the right lower lobe. Decreased size of a loculated | | fluid collectionin the medial right lower lobe.Heart and mediastinum: Slight rightward | | shifting of the mediastinal structures. No mediastinal or hilar lymphadenopathy.Chest | | wall: No axillary or visible supraclavicular lymphadenopathy.Upper abdomen: Stable | | multiple subcentimeter hypodensities in the right andleft lobes. These are likely small | | cysts. No visible suspicious liver lesions. Stable low-density left adrenal | | nodule.Bones: There are no suspicious lytic or blastic bone lesions. There is a | | stablevague area of sclerosis in L1.IMPRESSION - Postsurgical changes in the right | | hemithorax.No evidence for disease progression or metastatic spread.Recommendation: | | Continue appropriate restaging follow-up and/or lung cancerscreening.Dictated and Signed | | by: Milton Dewitt MD Electronically signed: 08/17/2017 12:54 PM | |in the medial right lower lobe. | | | |Heart and mediastinum: Slight rightward shifting of the mediastinal structures. | | No mediastinal or hilar lymphadenopathy. | | | |Chest wall: No axillary or visible supraclavicular lymphadenopathy. | | | |Upper abdomen: Stable multiple subcentimeter hypodensities in the right and | |left lobes. These are likely small cysts. No visible suspicious liver lesions. | | Stable low-density left adrenal nodule. | | | |Bones: There are no suspicious lytic or blastic bone lesions. There is a stable | |vague area of sclerosis in L1. | | | |IMPRESSION - | | | |Postsurgical changes in the right hemithorax. | | | |No evidence for disease progression or metastatic spread. | | | |Recommendation: Continue appropriate restaging follow-up and/or lung cancer | |screening. | | | |Dictated and Signed by: Milton Dewitt MD | | Electronically signed: 08/17/2017 12:54 PM | + + + +---------+ + [...] iohexol (OMNIPAQUE 350) 350 | Given | 08/17/20 | 75 mLs | | | | mg/mL injection 75 mL 75 mL, | | 17 11:45 | | | | | Intravenous, ONCE PRN, Other, for | | AM PDT | | | | | CT contrast study, Starting Tue | | | | | | | 08/17/17 at 1145, For 1 dose, | | | | | | | Radiology | | | | | | + +--------+ +--------+------+------+ +---+---+ | | | +---+---+ documented in this encounter"
--- OUTSIDE RECORDS SUMMARY | ~2020-07-17 | XMS | Encounter Summary ---
Demographics + + + | Address | [address] | | | [place] [address] | + + + | Home Phone [...] Author + + + | Author | [facility] | | | and [place] | + + + | Organization | [facility] | | | [...] Team Providers + +------+ + | Care Multiple Games Dealer Name | Role | Phone | + [...] | | | cell cancer | [place] [address] | [address] | | | | | of right | [address] | [address] | | | | | lung (HCC) | [place], [place] | [place], | | | | | Secondary | [address] | [place] [address] | | | | | adenocarcino | Phone: | Phone: | | | | | ma of brain | [phone] | [phone] | | | | | (HCC) | Fax: | Fax: | | | | | Thyroid | [phone] | [phone] | | | | | Procedures | | | | | | | MD OFFICE | | | | | | | OUTPATIENT | | | | | | | VISIT 25 | | | | | | | MINUTES | | | + +--------+ + + + + Encounter Details +--------+ + + + + | Date | Type | Department | Care Team | Description | +--------+ + + + + | 02/13/ | Hospital | [facility] | Susie Montemayor | Primary malignant | | 2020 | Encounter | MED [facility] RAD[facility] | MD Jared [address] | neoplasm of female | | | | ON[facility]OGY CLINIC [address] | [place], [place] | breast (HCC) | | | | [address] [facility] | [address] | (Primary Dx) | | | | [place] [address] | | | | | | [phone] | | | +--------+ + + + [...] + + + | Blood Pressure | 121/71 | 02/14/2020 10:48 AM | | | | | PDT | | + + + + + | Pulse | 78 | 02/14/2020 10:48 AM | | | | | PDT | | + + + + + | Temperature | 36.5 C (97.7 F) | 02/14/2020 10:48 AM | | | | | PDT | | + + + + + | Respiratory Rate | 16 | 02/14/2020 10:48 AM | | | | | PDT | | + + + + + | Oxygen Saturation | 99% | 02/14/2020 10:48 AM | | | | | PDT | | + + + + + | Inhaled Oxygen | - | - | | | Concentration | | | | + + + + + | Weight | 83.6 kg (184 lb 4.9 | 02/14/2020 10:48 AM | | | | oz) | PDT | | + + + + + | Height | - | - | | + + + + + | Body Mass Index | 27.62 | 02/02/2020 9:09 AM | | | | | PDT [...] of this encounter Discharge Instructions Patient Instructions Serenity Dunn RN - 02/14/2020 11:00 AM PDTAdditional workup: Imaging: Brain MRI one week after biopsy followed by CT planning scan to design radiation Radiation recommendation: radiation would be after biopsy and MRI results are back, radiati on would be 5 treatments every other day (will span 2 weeks) Additional recommendations: Recommend go forward with biopsy with Dr. Da Silva Next visit: our office will call you to schedule future imaging and follow up documented in this encounter Medications at Time [...] encounter Progress Notes Susie Montemayor MD - 02/14/2020 11:00 AM PDT Radiation Oncology Follow-up Chief Complaint/ICD10 ICD-10-CM ICD-9-CM 1. Primary malignant neoplasm of female breast (HCC) C50.919 174.9 History of Present Illness: Thyroid cancer (HCC) [...] of right lower lobe, adenocarcinoma, acinar with mucinous/signet- ring features of the right lower lobe. - Right lower lobe pulmonary nodule with metabolic activity on PET/CT, identified during w orkup for thyroid cancer. - 12/30/16 Treated with right lower lobectomy and lymph node dissection. Stage IIIA, pT3 pN1. 2 foci in same lobe measuring 1.3 and 1 cm. Extensive lymphovascular space invasion. One right level 11 lymph node with isolated tumor cells. R0 resection. EGFR, KRAS, ALK ne gative, PDL 1 (pembroluzimab receptor): 3%, ROS1 negative. - 04/2017 Completed adjuvant carboplatin/pemetrexed 4c. -[facility] Primary malignant neoplasm of female breast (HCC) 06/25/2019 Initial Diagnosis Primary malignant neoplasm of right breast. - 05/25/2019 Clinically asymptomatic, presented for screening mammogram. - 07/06/2019 Lumpectomy and sentinel lymph node biopsy. 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 pT1c pN0 ER 99%, MD 60%, Her2 non-amplified. 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 - 10/04/2019 whole breast radiation with a lumpectomy cavity boost, total 50.04 Gy in 20 fra ction. - 12/06/2019 started adjuvant endocrine therapy with exemestane, ongoing. Olena Rider has a complex oncology history as outlined above. She returns to clini c today to review recent PET/CT results. Study from 02/06/2020 does not demonstrate any evide nce of distant disease. Non-specific finding detailed below. Study was obtained to determi ne if a systemic recurrence was occurring in conjunction with the new finding of a cystic ma ss at there right caudate. Since our last visit she has also under gone an MRI brain w/ w/o on 01/22/2020 measuring the lesion at 1.5 cm with mild vasogenic edema, mixed cyctic/rim enh ancing and solid. Consultation with Dr. Da Silva on 02/02/2020 outlining the significant risks of resection of a tumor in this location. Needle biopsy is believed to be possible with minimal risk. Evaluati ng for alternative site of disease to biopsy on PET/CT. Dima continues to experience headache and daily nausea. If she takes zofran regularly t he nausea is controlled. Worse headaches (constant dull pain, frontal retro orbital headache ) taking tylenol, vision has become blurry and harder time focusing things up close, denies seizure like activity, denies balance issues. Completed breast radiation 4 months ago. Remains fatigued. No breast concerns. Review of systems: Constitutional: Reports moderate fatigue, worse over the last month. Reports nausea, no vom iting in the last 2 weeks, prior was several times during the week. Is now taking ondansetro n for relief. Reports appetite has decreased in the last month, denies major weight loss. D enies high fevers, shaking chills, anorexia, weight loss, or night sweats. Ear, Nose, Mouth, Throat: Denies odynophagia, dysphagia, or tinnitus. Cardiovascular: Denies shortness of breath, dyspnea on exertion, chest pain, palpitations o r orthopnea. Respiratory: Denies cough, hemoptysis, or sputum production. Gastrointestinal: Denies abdominal pain, constipation, diarrhea, melena, or bright red bloo d per rectum. Genitourinary: Denies hematuria or dysuria. Musculoskeletal: Reports generalized joint pain, right shoulder is the most bothersome "my muscles are tight", describes as constant aching, rates 4/10, takes tylenol for relief. Neurologic: Reports has experienced headaches over the last 6 months, states has gotten wor se recently, describes as constant dull pain, rates 4/10, noticed blurry vision starting 6 m onths ago, has seen her eye doctor but unable to see recently due to COVID pandemic. Reports intermittent numbness to fingertips on left hand, continues unchanged. Endocrine: Denies peripheral edema or heat/cold intolerance. Hematologic: Denies spontaneous bruising or bleeding. Integumentary: Denies rash, wounds or other skin concerns. Pain: Reports generalized joint pain, right shoulder is the most bothersome "my muscles are tight", describes as constant aching, rates 4/10, takes tylenol for relief. Reports has exp erienced headaches over the last 6 months, states has gotten worse recently, describes as co nstant dull pain, rates 4/10 Note: Here for follow up with Dr. Montemayor to review neurosurgery consult. My chart: Declined Pain assessment: Location: headaches, generalized joint, right shoulder most bothersome Pain Level: PAIN PROG PAIN LEVEL: 4 Pain Quality: headache: constant dull pain, joint pain constant aching Current pain regimen: Tylenol Current Outpatient Medications Medication Sig Dispense Refill acetaminophen (TYLENOL) 500 mg tablet Take 1,000 mg by mouth every 6 hours as needed fo r Pain. ALPRAZolam (XANAX) 0.25 mg tablet Take 0.125 mg by mouth 3 times daily as needed. For s evere anxiety Calcium 500 MG TABS Take 500 mg by mouth Daily. DULoxetine (CYMBALTA) [address] capsule Take 30 mg by mouth 2 times daily. exemestane (AROMASIN) 25 MG tablet Take 1 tablet by mouth Daily. 90 tablet 3 ibuprofen (ADVIL, MOTRIN) 200 mg tablet Take 400-600 mg by mouth every 6 hours as neede d for Pain. levothyroxine (SYNTHROID) 125 mcg tablet Take [...] reaction - trouble breathing after hysterectomy" Vitals: 02/14/20 1048 BP: 121/71 Pulse: 78 Resp: 16 Temp: 36.5 C (97.7 F) PainSc: 4 Wt Readings from Last 3 Encounters: 02/14/20 83.6 kg (184 lb 4.9 oz) 02/02/20 84.4 kg (186 lb) 01/17/20 84.6 kg (186 lb 8.2 oz) Physical Exam: General: Healthy appearing female in no acute medical distress. KPS: 70% HEENT: Pupils equal and round. No conjunctival icterus or injection. EOMI. Pulmonary: No increased work of breathing at rest. Extremities: Upper and lower extremities warm and well perfused with no upper or lower extr emity edema. Neurologic: Alert, oriented and appropriated in conversation. CN II-IX 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. Moves all 4 extremities normally with normal gait. Psychiatric: Appropriate. Labs: Lab Results Component Value Date WBC 6.2 01/05/2020 HGB 12.9 01/05/2020 HCT 39.0 01/05/2020 MCV 92.2 01/05/2020 PLT 283 01/05/2020 Lab Results Component Value Date CREA 0.87 01/05/2020 BUN 12 01/05/2020 NA 139 01/05/2020 K 4.0 01/05/2020 CL 106 01/05/2020 CO2 25 01/05/2020 Lab Results Component Value Date ALT 9 (L) 01/04/2020 AST 15 01/04/2020 ALKPHOS 88 01/04/2020 BILITOT 0.3 01/04/2020 Imagin02/06/2020 PET/CT REGISTRY SKULL TO MID THIGH IMPRESSION: Summary of Target Lesions: 1. New [...] in the left inguinal lymph node has resolved. Signed by: Russ Flores Shawn EXAM: MRI BRAIN W WO CONTRAST dated 01/22/2020 7:35 AM IMPRESSION: There is a partially cystic enhancing mass along the right lateral ventricle. In a patient with a known malignancies this could be metastasis. Given the location in the minimal adjacent vasogenic edema and unusual periventricular subependymal tumor is a possibility. Germinoma and primary brain malignancy are felt to be less likely. 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 Dictated and Signed by: Milton Dewitt MD Assessment: ICD-10-CM ICD-9-CM 1. Primary malignant neoplasm of female breast (HCC) C50.919 174.9 Today I discussed with Olena and her daughter the recent work-up. We reviewed her conve rsation with Dr. Da Silva, recounting the high risk of surgical resection of the deep brain le primo. I explained the PET/CT findings with no evidence of systemic disease and other areas to biopsy. I strongly recommended a biopsy of the brain lesion for diagnosis, given her his tory of 3 distinct primary malignancies, all treated with definitve intent recently and all [facility]. Most likely source would be her history of lung cancer. Though other metastatic or bra in primary etiologies cannot be excluded. The pathologic diagnosis will have important impl ications management of this lesion and future systemic treatment needs. Post-biopsy radiation will most likely be recommended, pending pathology. We discussed the process for radiosurgery or fractionated radiosurgery in the brain. A postoperative MRI wi ll be needed for radiation planning. We discussed the simulation process and treatment proc edures. Potential side-effects also reviewed. Olena agreed to f/u with Dr. Da Silva for b iopsy. I also discussed this plan with Dr. D aSilva. We will plan for follow-up in my offic e about 1 week after surgery to review pathology and discuss treatment recommendations furth er. She will also need to follow-up with Dr. Salazar as directed. At this time she does not appear to be having significant peritumoral edema or mass effect. Holding off on steroids. Continue current pain management with OTC analgesics and zofran f or nausea. Plan/Patient Instructions: Additional workup: Imaging: Brain MRI one week after biopsy followed by CT planning scan to design radiation Radiation recommendation: radiation would be after biopsy and MRI results are back, radiati on would be 5 treatments every other day (will span 2 weeks) Additional recommendations: Recommend go forward with biopsy with Dr. Da Silva Next visit: our office will call you to schedule future imaging and follow up No orders of the defined types were placed in this encounter. Thank you for allowing me to participate in the care of Olena Rider. If you should h ave any questions regarding this evaluation, please do not hesitate to contact me. Susie Montemayor M.D. Radiation Oncologist Department of Radiation Oncology [facility] Office: [phone] documented in this encounter Plan of Treatment +--------+ + + + + | Date | Type | Specialty | Care Team | Description | +--------+ + + + + | 11/22/ | Appointment | Radiation Oncology | Susie Montemayor | | | 2020 | | | MD [address] | | | | | | [place], [place] | | | | | | [address] | | | | | | | | +--------+ + + + + documented as of this encounter Visit Diagnoses + + | Diagnosis | + + | 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
--- OUTSIDE RECORDS SUMMARY | ~2020-07-17 | XMS | Encounter Summary ---
Demographics + + + | Address | [address] | | | [place] [address] | + + + | Home Phone [...] Team Providers + +------+ + | Care Oim Consultant Name | Role | Phone | + [...] | | | | | [address] | [address] | | | | | | [place] | [address] | | | | | | [facility] [place] | [place], [place] | | | | | | [address] | [address] Phone: | | | | | | Phone: | [phone] | | | | | | [phone] | Fax: | | | | | | Fax: | [phone] | | | | | | [phone] | | +--------+ + + + + [...] | | | | | test | [place] [address] | [place], [place] | | | | | | Phone: | [address] | | | | | | [phone] | Phone: | | | | | | Fax: | [phone] | | | | | | [phone] | Fax: | | | | | | | [phone] | +--------+--------+ + + + + Encounter Details +--------+ + + + + | Date | Type | Department | Care Team | Description | +--------+ + + + + | 11/11/ | Hospital | [facility] | Susie Montemayor | Malignant neoplasm | | 2017 | Encounter | MED CTR RADIATION | MD Jared [address] | of thyroid gland | | | | ONCOLOGY [address] | [place], [place] | (HCC) (Primary Dx); | | | | [place], | [address] | Lung nodule | | | | [place] [address] | | | | | | [phone] | | | +--------+ + + + [...] Oncology Follow-up Note PATIENT: Olena Rider MR#: [id number] :1960 DOS:11/11/2016 ICD/Diagnosis: C73 - Malignant neoplasm [...] 0 = no pain and 10= worst [id number] your pain (quality) i.e. aching, s harp, [...] M.D. Radiation Oncologist Department of Radiation Oncology [facility] Electronically signed by Susie Walker M.D CC: Doris Stanford M.D. Luis Felipe Mon M.D.-[facility] This note was transcribed using [employer] speech recognition software. As a result, there ma y be unintended for medical and/or spelling errors. Every attempt is made to correct dicta tion. If there are any questions or errors please contact our office. CSN: [id number] signed by Susie Walker MD at 11/24/2016 [...] [address] | | | | | | [place], [place] | | | | | | [...] ST. | [address] | [place] | [phone] | | [facility] | | [address] | | | - LABORATORY | | [...]
--- OUTSIDE RECORDS SUMMARY | ~2020-07-17 | XMS | Encounter Summary ---
Demographics + + + | Address | [address] | | | [place] [address] | + + + | Home Phone [...] Author + + + | Author | [facility] | | | and [place] | + + + | Organization | [facility] | | [...] Team Providers + +------+ + | Care Long Distance Billing Operator Name | Role | Phone | [...] + + | 08/09/ | Telephone | [facility] | Ashley Doty RN | Testing ([facility] | | 2019 | | MED CTR MEDICAL | | Health ) | | | | ONCOLOGY CLINIC [address] | | | | | | [address] | | | | | | [place] [address] | | | | | | [phone] | | | +--------+ + + + [...] 08/21/2019 11:17 AM PDTReceived test results fro [facility]. I gave Dr. Salazar a copy of the results. She is schedule to come in on 08/29/19. I will be taking a copy to HIM to be scanned into [employer] at this time.Electronicall y signed by Ashley Doty RN at 08/21/2019 11:20 AM PDTTelephone Encounter - Ashley Doty RN - 08/18/2019 11:43 AM PDTReceived a fax from [facility] stating they need additiona l information. I have fax additional information requested. Fax confirmation received on @ [phone]. elephone Encounter - Ashley Doty RN - 08/09/2019 9:59 AM PDTDr. Salazar is requesting additi onal testing through [facility] on the right breast biopsy obtain on 07/06/19. I have barnes bmitted the requisition form online. Pathology report ([id number]), and a copy of his insur ance [...] [place] | | | | | | [id number] | | | | | | | | +--------+ + + + + documented as of this encounter Visit Diagnoses Not on filedocumented in this encounter"
--- OUTSIDE RECORDS SUMMARY | ~2020-07-17 | XMS | Encounter Summary ---
Demographics + + + | Address | [address] | | | [place] [address] | + + + | Home Phone | | + + + | Preferred Language | Unknown | + + + | Marital Status | Single | + + + | Jehovah'S Witness Affiliation | Unknown | + + + | Race | White | + + + | Ethnic Group | Not or | + + + Author + + + | Author | [facility] | | | and [place] | + + + | Organization | [facility] | [...] Providers + +------+ + | Care Risk Assessment Analyst Name | Role | Phone | + +------+ + | Zuleyka Martínez | PCP | | + +------+ + Encounter Details +--------+ + + + + | Date | Type | Department | Care Team | Description | +--------+ + + + + | 10/06/ | Hospital | [facility] | Susie Montemayor | | | 2016 | Encounter | MED CTR RADIATION | [place], [address] | | | | | ONCOLOGY [address] [place], [place] | | | | | [place], | [address] | | | | | [place] [address] | | | | | | [phone] | | | +--------+ + + + [...] documented as of this encounter Miscellaneous Notes Miscellaneous - Susie Walker MD - 10/14/2016 12:00 AM PSTPATIENT: Olena Levin tDOS:10/14/2016MR#: [id number] :1960 Radiation Oncology Treatment Summary ICD-9/Diagnosis: C73 - Malignant neoplasm of thyroid gland, Diagnosed 09/2016 (Active) CC: Doris Stanford M.D. Body And [employer] Man Procedure: Delivery of I-131 for thyroid remnant ablation Procedure note: Prior to treatment, Olena Rider was given a schedule for a low iodine diet for two wee ks followed by 2 separate Thyrogen injections (0.9 mg IM) on the 2 days preceding this abl ation. TSH was drawn after the second Thyrogen injection to verify adequate stimulation. The patient was brought to the nuclear medicine department where a timeout procedure was performed verifying full name that was compared with the patient record, date of , and photo ID. She was given the opportunity to ask further questions regarding the procedure and treatment. Informed consent was obtained prior to today and she was given a copy of [facility] consent form for her personal records. She was previously given educational material a nd instructions regarding parotid massage including technique and frequency. The radiation human resources safety manager proceeded to give instructions and review guidelines for radi ation safety in the outpatient setting. The patient signed these instructions and was give n a copy ultimately upon discharge home. Olena Rider was then given one/two capsules of iodine-131 with a measured activity of 94.1mCi delivered in a glass vial with instruction s to swallow the enclosed capsule. She was given a glass of water and observed to ingest t capsule uneventfully. Measurements were taken immediately afterwards verifying dose de livery using a standard measuring instrument and exposure meter. I was present during the entirety of this procedure. She was given an emesis basin and gloves upon discharge in t event she should develop radiation gastritis prior to arriving home. Unsealed source precautions were observed throughout this procedure. The patient was disch arged to home with standard radiation precautions. Additional Notes: Post-ablation scan in 1 week. Resume thyroid replacement and normal diet per schedule. Susie Walker M.D. Radiation Oncologist Department of Radiation Oncology [facility] This note was transcribed using [employer] speech recognition software. As a result, there ma y be unintended for medical and/or spelling errors. Every attempt is made to correct dicta tion. If there are any questions or errors please contact our office. Page 1 of 1 CSN: [id number] signed by Susie Walker MD at 10/24/2016 11:30 AM PSTd ocumented in this encounter Plan of Treatment +--------+ + + + + | Date | Type | Specialty | Care Team | Description | +--------+ + + + + | 11/22/ | Appointment | Radiation Oncology | Susie Montemayor | | | 2020 | | | MD [address] | | | | | | [place], [place] | | | | | | [address] | | | | | | | | +--------+ + + + + documented as of this encounter Visit Diagnoses Not on filedocumented in this encounter"
--- OUTSIDE RECORDS SUMMARY | ~2020-07-17 | XMS | Encounter Summary ---
Demographics + + + | Address | [address] | | | [place] [address] | + + + | Home Phone | | + + + | Preferred Language | Unknown | + + + | Marital Status | Single | + + + | Faith Affiliation | Unknown | + + + [...] Team Providers + +------+ + | Care Integration Developer Name | Role | Phone | + +------+ + | Zuleyka Martínez | PCP | | + +------+ + Reason for Visit + +--------+ + | Reason | Onset | Comments | | | Date | | + +--------+ + | Lab Results | 04/08/ | | | | 2020 | | + +--------+ + Encounter Details +--------+ + + + + | Date | Type | Department | Care Team | Description | +--------+ + + + + | 04/08/ | Telephone | [facility] | Milton Salazar | Lab Results | | 2020 | | MED CTR MEDICAL | MD [address] | | | | | [address]OG[address] CL[address] | [facility] | | | | | [address] | [place] [address] | | | | | [place] [address] | [phone] | | | | | [phone] | | | +--------+ + + + [...] this encounter Miscellaneous Notes Telephone Encounter - Milton Salazar MD - 04/08/2020 10:49 AM PDTTelephone call to patient to 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 Patients with this mutation occurrin g in the germline associated with Peutz-Jeghers syndrome which patient does not have as prev ious testing through [facility] demonstrating normal STK 11. This is thus a cristofer atic mutation which proves to be fairly common occurrence in non-small cell lung cancer. It is a potential target for experimental therapy including the use of the PARP inhibitors and the mTOR inhibitors. These however would be studies conducted at a tertiary cancer centers . For the time being no immediate treatment recommendation but encouragement for follow-up here in the cancer center in the third week of April. documented in this encounter Plan of Treatment [...] [place] | | | | | | [id number] | | | | | | | | +--------+ + + + + documented as of this encounter Visit Diagnoses Not on filedocumented in this encounter"
--- OUTSIDE RECORDS SUMMARY | ~2020-07-17 | XMS | Encounter Summary ---
Demographics + + + | Address | [address] | | | [place] [address] | + + + | Home Phone [...] Team Providers + +------+ + | Care Wiring Technician Name | Role | Phone | + +------+ + | Zuleyka Martínez | PCP | | + +------+ + Reason for Visit +--------+--------+ + | Reason | Onset | Comments | | | Date | | +--------+--------+ + | Other | 02/04/ | | | | 2017 | | +--------+--------+ + Encounter Details +--------+ + + + + | Date | Type | Department | Care Team | Description | +--------+ + + + + | 02/04/ | Telephone | [facility] | Milton Salazar | Other | | 2017 | | MED CTR MEDICAL | MD [address] | | | | | [address] CL[address] | [facility] [place] | | | | | [address] | [place] [address] | | | | | [place] [address] | [phone] | | | | | [phone] | | | +--------+ + + + [...] this encounter Miscellaneous Notes Telephone Encounter - Meseret Sidhu RN - 02/04/2017 10:[address] Sly summers- he will sign drafted letter and we will be in contact with Mona on prior authorizat ion of chemotherapy treatments. Called Olena to notify her that letter will be sent to [facility] HR department once Dr. Salazar signs it. Mona states that PA for chemo has been appr rodolfo and will notify infusion staff. Electronically signed by Meseret Sidhu RN at 02/04 10:25 AM PDTTelephone Encounter - Robb Brigida Mathews - 02/04/2017 9:17 AM PDTMichell bernard is calling to get her release to work note amended. HR states that she needs a note stati ng that " she may return to work WITHOUT RESTRICTIONS." Please fax note to her office, att unique Miller. Work fax number # [phone]. If you have any questions, please call Carmen ellison @ [phone]. She is employed by [employer]. documented in this encounter Plan of Treatment [...] [place] | | | | | | [id number] | | | | | | | | +--------+ + + + + documented as of this encounter Visit Diagnoses Not on filedocumented in this encounter
--- OUTSIDE RECORDS SUMMARY | ~2020-07-17 | XMS | Encounter Summary ---
Demographics + + + | Address | [address] | | | [place] [address] | + + + | Home Phone [...] Team Providers + +------+ + | Care Second Language Tutor Name | Role | Phone | + [...] | | | [address] | [place] [address] | | | | | [place] [address] | | | | | | [phone] | | | +--------+ + + + [...] [address] | | | | | | [place], [place] | | | | | | [address] | | | | | | | | +--------+ + + + + documented as of this encounter Procedures + +--------+ + + + | Procedure Name | Priori | Date/Time | Associated Diagnosis | Comments | | | ty | | | | + +--------+ + + + | ADAM DIGITAL | Routin | 08/20/2015 | | Results for this | | SCREENING BILATERAL | e | 12:00 AM | | procedure are in the | | | | PDT | | results section. | + +--------+ + + + documented in this encounter Results ADAM Digital Screening Bilateral (08/20/2015 12:00 AM PDT) + + | Specimen [...]
--- OUTSIDE RECORDS SUMMARY | ~2020-07-17 | XMS | Encounter Summary ---
Demographics + + + | Address | [address] | | | [place] [address] | + + + | Home Phone | | + + + | Preferred Language | Unknown | + + + | Marital Status | Single | + + + | Confucianism Affiliation | Unknown | + + + [...] Team Providers + +------+ + | Care Seasonal Retail Merchandiser Name | Role | Phone | + [...] + + | 10/21/ | Hospital | [facility] | Zuleyka Cota, | | | 2017 | Encounter | MED CTR NUCLEAR | MD [address] | | | | | MEDICINE [address] [place], | | | | | [place], | [place] [address] | | | | | [place] [address] | [phone] | | | | | [phone] | | | +--------+ + + + [...] | | | | | | [address] [place], [place] | | | | | | [address] | | | | | | | [...] of I-131 radiates tracer with | | [id number] imaging of the thyroid for surveillance imaging.FINDINGS:Minimal [...]
--- OUTSIDE RECORDS SUMMARY | ~2020-07-17 | XMS | Encounter Summary ---
Demographics + + + | Address | [address] | | | [place] [address] | + + + | Home Phone [...] Team Providers + +------+ + | Care Eyeglass Frames Polisher Name | Role | Phone | + +------+ + PCP | Unavailable | + +------+ + Encounter Details +--------+ + + + + | Date | Type | Department | Care Team | Description | +--------+ + + + + | 02/15/ | Hospital | [facility] | | | | 1999 | Encounter | MED CTR XRAY [address] | | | | | | [place] | | | | | | [place] [address] | | | | | | [phone] | | | +--------+ + + + [...] [place] | | | | | | [id number] | | | | | | | | +--------+ + + + + documented as of this encounter Visit Diagnoses Not on filedocumented in this encounter"
--- OUTSIDE RECORDS SUMMARY | ~2020-07-17 | XMS | Encounter Summary ---
Demographics + + + | Address | [address] | | | [place] [address] | + + + | Home Phone [...] Team Providers + +------+ + | Care Photograph Enlarger Name | Role | Phone | + [...] | | | [address] | [place] [address] | | | | | [facility] [address] | | | | | | [phone] | | | +--------+ + + + [...] | | 2020 | | | MD aJred [address] | | | | | | [place], [place] | | | | | | [address] | | | | | | | [...] Results US Guided Breast Biopsy Right (06/15/2019 12:05 AM PDT) + + | Specimen [...]
--- OUTSIDE RECORDS SUMMARY | ~2020-07-17 | XMS | Encounter Summary ---
Demographics + + + | Address | [address] | | | [place] [address] | + + + | Home Phone [...] Providers + +------+ + | Care Senior Risk Analyst Name | Role | Phone | [...] Closed | | Radiology | Diagnoses | Martínez, | [facility] | | | | | Malignant | Zule[place] | Nuclear | | | | | neoplasm of | [place] [address] | [address] | | | | | unspecified | [address] | [address] | | | | | part of | [place], [place] | [address] | | | | | unspecified | [address] | [place], [place] | | | | | bronchus or | Phone: | [phone] | | | | | lung (HCC) | [phone] | Phone: | | | | | Malignant | Fax: | [phone] | | | | | neoplasm of | [phone] | Fax: | | | | | female | | [phone] | | | | | breast, | | | | | | | unspecified | | | | | | | estrogen | | | | | | | receptor | | | | | | | status, | | | | | | | unspecified | | | | | | | laterality, | | | | | | | unspecified | | | | | | | site of | | | | | | | breast (HCC) | | | | | | | Other | | | | | | | fatigue | | | | | | | Abnormal | | | | | | | weight loss | | | | | | | Procedures | | | | | | | PET CT | | | | | | | Skull Base | | | | | | | To Mid Thigh | | | +--------+--------+ + + + + Reason for Visit Diagnostic/Screening (Routine) +--------+--------+ + + + + | Status | Reason | Specialty | Diagnoses / | Referred By | Referred To | | | | | Procedures | Contact | Contact | +--------+--------+ + + + + | Closed | | Radiology | Diagnoses | Martínez, | [facility] | | | | | Malignant | Zuleyka | Nuclear | | | | | neoplasm of | [place] [address] | Medicine [address] | | | | | unspecified | [address] | [address] | | | | | part of | [place], [place] | [address] | | | | | unspecified | [address] | [place], [place] | | | | | bronchus or | Phone: | [phone] | | | | | lung (HCC) | [phone] | Phone: | | | | | Malignant | Fax: | [phone] | | | | | neoplasm of | [phone] | Fax: | | | | | female | | [phone] | | | | | breast, | | | | | | | unspecified | | | | | | | estrogen | | | | | | | receptor | | | | | | | status, | | | | | | | unspecified | | | | | | | laterality, | | | | | | | unspecified | | | | | | | site of | | | | | | | breast (HCC) | | | | | | | Other | | | | | | | fatigue | | | | | | | Abnormal | | | | | | | weight loss | | | | | | | Procedures | | | | | | | PET CT | | | | | | | Skull Base | | | | | | | To Mid Thigh | | | +--------+--------+ + + + + Encounter Details +--------+ + + + + | Date | Type | Department | Care Team | Description | +--------+ + + + + | 02/05/ | Hospital | [facility] | Martínez, | Malignant neoplasm | | 2020 | Encounter | [facility] | [place] [address] | of unspecified part | | | | MEDICINE [address] | [address] [place], | of unspecified | | | | [address] | [place] [address] | bronchus or lung | | | | [place], [place] | [phone] | (HCC); Malignant | | | | [address] | | neoplasm of female | | | | [phone] | | breast, unspecified | | | | | | estrogen receptor | | | | | | status, unspecified | | | | | | laterality, | | | | | | unspecified site of | | | | | | breast (HCC); Other | | | | | | fatigue; Abnormal | | | | | | weight loss | +--------+ + + + + Social [...] [address] | | | | | | [place], [place] | | | | | | [id number] | | | | | | | | +--------+ + + + + documented as of this encounter Procedures + +--------+ + + + | Procedure Name | Priori | Date/Time | Associated Diagnosis | Comments | | | ty | | | | + +--------+ + + + | PET CT SKULL BASE TO | Routin | 02/06/2020 | Malignant neoplasm | Results for this | | MID THIGH | e | 1:22 PM | of unspecified part | procedure are in the | | | | PDT | of unspecified | results section. | | | | | bronchus or lung | | | | | | (HCC) Malignant | | | | | | neoplasm of female | | | | | | breast, unspecified | | | | | | estrogen receptor | | | | | | status, unspecified | | | | | | laterality, | | | | | | unspecified site of | | | | | | breast (HCC) Other | | | | | | fatigue Abnormal | | | | | | weight loss | | + +--------+ + + + | POC GLUCOSE (NON | Routin | 02/06/2020 | | Results for this | | ORD) | e | 11:24 AM | | procedure are in the | | | | PDT | | results section. | + +--------+ + + + documented in this encounter Results PET CT Skull Base To Mid Thigh (02/06/2020 1:22 PM PDT) + + | Specimen | + + | | + + + + + | Impressions | Performed At | + + + | Summary of Target Lesions: 1. New 6 mm nodular density in the | [facility] | | anterior subpleural right lung base 129, SUV 2.4. 2. New medial | | | left apical strandy change measuring 12 x 3 mm, without uptake. | | | 3. Interval resection of the thyroid, with no recurrent abnormal | | | thyroid bed uptake. 4. 10 x 4 mm left inguinal lymph node 4260, SUV | | | 1.7, previously 12 x 7 mm, SUV 5.5. Other PET/CT Findings: 1. | | | Thyroidectomy. 2. Right lower lobectomy, with significant narrowing | | | of the origin of the right middle lobe bronchus. Pulmonary | | | consultation is recommended. 3. Complex fluid collection lateral | | | right breast measuring 3.2 x 2.2 cm with minimal peripheral uptake, | | | SUV up to 2.2, likely postsurgical. Mammographic and sonographic | | | follow-up is recommended. Comments: 1. Interval thyroidectomy, | | | with resolution of the previous thyroid nodules and uptake. No | | | recurrent thyroid malignancy is seen. 2. Interval right lower | | | lobectomy, with anterior right basilar 6 mm nodule with minimal | | | uptake, probably reactive. Progress PET-CT evaluation as a | | | precaution is recommended. 3. Previous abnormal uptake in the left | | | inguinal lymph node has resolved. Signed by: Mark | | | Joshua Solano Sign Date/Time: 02/07/2020 8:15 AM | | + + + + + + | Narrative | Performed At | + + + | EXAM DESCRIPTION PET/CT REGISTRY SKULL TO MID THIGH CLINICAL | [facility] | | INFORMATION: Malignant neoplasm of lung and breast Subsequent PET | | | Scan COMPARISON: CT TREATMENT PLAN COMPLEX (08/29/2019); | | | CT CHEST W CONTRAST (08/08/2019); CT CHEST ABDOMEN PELVIS W CONTRAST | | | (08/18/2018); PET CT SKULL BASE TO MID THIGH (06/17/2016); NM THYROID | | | CANCER METASTATIC SCAN WHOLE BODY (10/21/2016); CT CHEST WO CONTRAST | | | (09/23/2016); PROCEDURE: The patient was evaluated with a | | | dedicated PET/CT scanner. Upon arrival, the patient's fasting | | | fingerstick blood glucose level was 91 mg/dL. 14.3 mCi of 18-FDG | | | was injected IV at 1126 hours, and 71 minutes post-injection CT | | | attenuation-correction images and then subsequent PET images | | | (attenuation-corrected and emission-only images) were obtained from | | | base of skull to thigh. PET, noncontrast-attenuation CT, and fused | | | PET/CT images were then reformatted and reviewed in the axial, | | | sagittal, coronal and 3-D maximum intensity projection planes. | | | FINDINGS: HEAD: Brain: The distribution of FDG activity in the | | | visualized brain is physiologic. Paranasal Sinuses: No significant | | | abnormalities to the extent seen. NECK: Neck: Is a 12 x 7 mm | | | lymph node 4/63 in the right neck level 2, SUV 3.7, stable in size | | | and essentially unchanged in uptake. No lymphadenopathy in the | | | neck. No new areas of neck uptake. Thyroid: Interval thyroidectomy. | | | Resolution of the previous abnormal right and left thyroid uptake. | | | CHEST: Lungs, Pleura and Airways: Interval right lower | | | lobectomy. Narrowing of the origin of the right middle lobe | | | bronchus 4/126, nearly occluded. Strandy changes are seen | | | throughout the anterior and posterior right lower lung zone. New 6 mm | | | nodular density in the anterior subpleural right lung base 4/129, | | | SUV 2.4. New medial left apical strandy change 4/95 measuring 12 x 3 | | | mm, without uptake. Enlarging bulla in the medial left lung base | | | measuring 4.8 by 4.4 cm 4/135. Mediastinum: No significant | | | pericardial, great vessel, or esophageal abnormality. No mediastinal | | | mass. New clips in the right axilla. New poorly defined complex | | | fluid collection in the lateral right breast 4/144 without internal | | | uptake. Minimal peripheral uptake, SUV up to 2.2. New mild skin | | | thickening of the right breast. Lymph Nodes: There are no | | | pathologically enlarged or FDG-avid lymph nodes in the chest. | | | ABDOMEN: Liver and Biliary: No biliary abnormality. No abnormal | | | metabolic activity in the liver. Pancreas, Spleen and Adrenals: | | | Stable hypodense 10 mm nodule in the left adrenal 4/164, Hounsfield | | | unit attenuation -24, without uptake, likely due to adenoma. | | | Kidneys: No hydronephrosis or calculus. ABDOMEN AND PELVIS: | | | Bowel: Mild distal esophageal uptake SUV up to 5.9, which can be | | | physiologic or reactive. No esophageal mass on CT. Bowel and | | | mesenteries otherwise unremarkable, with physiologic uptake. Vessels: | | | Mild atherosclerotic change with mild ectasia of the abdominal aorta | | | measuring up to 2.8 cm AP dimension 4/194 in the mid abdominal | | | aorta, slightly more prominent. Retroaortic left renal vein. Lymph | | | Nodes: No pathologically enlarged or FDG-avid lymph nodes. 10 x 4 mm | | | left inguinal lymph node 4/260, SUV 1.7, previously 12 x 7 mm, SUV | | | 5.5. Peritoneum and Retroperitoneum: No intraperitoneal free air, | | | ascites or peritoneal mass. No significant retroperitoneal | | | abnormality. PELVIS: Genitourinary: No hydroureter. No ureteral | | | or bladder calculus. Hysterectomy. Body Wall: No masses, hernias, or | | | hemorrhage. Bones: Right total hip prosthesis, new from the previous | | | study. Spondylotic changes of the spine and left hip. No | | | suspicious bone uptake. | | + + + + + | Procedure Note | + + | Christopher, Rad Results In - 02/07/2020 8:18 AM PDT EXAM DESCRIPTION | | PET/CT REGISTRY SKULL TO MID THIGH | | | | CLINICAL INFORMATION: | | Malignant neoplasm of lung and breast Subsequent PET Scan | | | | | | | | | | COMPARISON: | | CT TREATMENT PLAN COMPLEX (08/29/2019); CT CHEST W CONTRAST | | (08/08/2019); CT CHEST ABDOMEN PELVIS W CONTRAST (08/18/2018); PET CT | | SKULL BASE TO MID THIGH (06/17/2016); NM THYROID CANCER METASTATIC SCAN | | WHOLE BODY (10/21/2016); CT CHEST WO CONTRAST (09/23/2016); | | | | PROCEDURE: | | The patient was evaluated with a dedicated PET/CT scanner. Upon | | arrival, the patient's fasting fingerstick blood glucose level was 91 | | mg/dL. 14.3 mCi of 18-FDG was injected IV at 1126 hours, and 71 | | minutes post-injection CT attenuation-correction images and then | | subsequent PET images (attenuation-corrected and emission-only images) | | were obtained from base of skull to thigh. PET, noncontrast-attenuation | | CT, and fused PET/CT images were then reformatted and reviewed in the | | axial, sagittal, coronal and 3-D maximum intensity projection planes. | | | | FINDINGS: | | HEAD: | | Brain: The distribution of FDG activity in the visualized brain is | | physiologic. | | Paranasal Sinuses: No significant abnormalities to the extent seen. | | | | NECK: | | Neck: Is a 12 x 7 mm lymph node 4/63 in the right neck level 2, SUV | | 3.7, stable in size and essentially unchanged in uptake. No | | lymphadenopathy in the neck. No new areas of neck uptake. | | Thyroid: Interval thyroidectomy. Resolution of the previous abnormal | | right and left thyroid uptake. | | | | CHEST: | | Lungs, Pleura and Airways: | | Interval right lower lobectomy. Narrowing of the origin of the right | | middle lobe bronchus 4/126, nearly occluded. Strandy changes are seen | | throughout the anterior and posterior right lower lung zone. | | New 6 mm nodular density in the anterior subpleural right lung base | | 4/129, SUV 2.4. | | New medial left apical strandy change 95 measuring 12 x 3 mm, without | | uptake. | | Enlarging bulla in the medial left lung base measuring 4.8 by 4.4 cm | | 4/135. | | Mediastinum: | | No significant pericardial, great vessel, or esophageal abnormality. | | No mediastinal mass. | | New clips in the right axilla. New poorly defined complex fluid | | collection in the lateral right breast 4/144 without internal uptake. | | Minimal peripheral uptake, SUV up to 2.2. New mild skin thickening of | | the right breast. | | Lymph Nodes: There are no pathologically enlarged or FDG-avid lymph | | nodes in the chest. | | | | ABDOMEN: | | Liver and Biliary: No biliary abnormality. No abnormal metabolic | | activity in the liver. | | Pancreas, Spleen and Adrenals: Stable hypodense 10 mm nodule in the | | left adrenal 4/164, Hounsfield unit attenuation -24, without uptake, | | likely due to adenoma. | | Kidneys: No hydronephrosis or calculus. | | | | ABDOMEN AND PELVIS: | | Bowel: Mild distal esophageal uptake SUV up to 5.9, which can be | | physiologic or reactive. No esophageal mass on CT. Bowel and | | mesenteries otherwise unremarkable, with physiologic uptake. | | Vessels: Mild atherosclerotic change with mild ectasia of the abdominal | | aorta measuring up to 2.8 cm AP dimension 4/194 in the mid abdominal | | aorta, slightly more prominent. Retroaortic left renal vein. | | Lymph Nodes: No pathologically enlarged or FDG-avid lymph nodes. | | 10 x 4 mm left inguinal lymph node 4/260, SUV 1.7, previously 12 x 7 | | mm, SUV 5.5. | | Peritoneum and Retroperitoneum: No intraperitoneal free air, ascites or | | peritoneal mass. No significant retroperitoneal abnormality. | | | | PELVIS: | | Genitourinary: No hydroureter. No ureteral or bladder calculus. | | Hysterectomy. | | Body Wall: No masses, hernias, or hemorrhage. | | Bones: Right total hip prosthesis, new from the previous study. | | Spondylotic changes of the spine and left hip. No suspicious bone | | uptake. | | | | IMPRESSION: | | Summary of Target Lesions: | | 1. New 6 mm nodular density in the anterior subpleural right lung base | | 4/129, SUV 2.4. | | 2. New medial left apical strandy change measuring 12 x 3 mm, | | without uptake. | | 3. Interval resection of the thyroid, with no recurrent abnormal | | thyroid bed uptake. | | 4. 10 x 4 mm left inguinal lymph node 260, SUV 1.7, previously 12 x 7 | | mm, SUV 5.5. | | | | | | Other PET/CT Findings: | | 1. Thyroidectomy. | | 2. Right lower lobectomy, with significant narrowing of the origin of | | the right middle lobe bronchus. Pulmonary consultation is recommended. | | 3. Complex fluid collection lateral right breast measuring 3.2 x 2.2 cm | | with minimal peripheral uptake, SUV up to 2.2, likely postsurgical. | | Mammographic and sonographic follow-up is recommended. | | | | | | Comments: | | 1. Interval thyroidectomy, with resolution of the previous thyroid | | nodules and uptake. No recurrent thyroid malignancy is seen. | | 2. Interval right lower lobectomy, with anterior right basilar 6 mm | | nodule with minimal uptake, probably reactive. Progress PET-CT | | evaluation as a precaution is recommended. | | 3. Previous abnormal uptake in the left inguinal lymph node has | | resolved. | | | | | | | | | | | | Signed by: Russ Flores, Joshua | | Sign Date/Time: 02/07/2020 8:15 AM | + + + +---------+ + + | Performing | Address | City/State/Zipcode | Phone Number | | Organization | | | | + +---------+ + + | [facility] | | | | + +---------+ + + POC Glucose (02/06/2020 11:24 AM PDT) + + + + + + | Component | Value | Ref Range | Performed | Pathologist | | | | | At | Signature | + + + + + + | Glucose, | 91Comment: Testing | 65 - 99 mg/dL | [facility] | | | POC | performed at [facility] | [address] | | | | [address];[place], [place] | | | | | | [address] | | | | + + + + + + + + | Specimen | + + | | + + + + + + + | Performing | Address | City/State/Zipcode | Phone Number | | Organization | | | | + + + + + | [facility] | [address] | [place] [address] | [phone] | + + + + + documented in this encounter Visit Diagnoses + + | Diagnosis | + + | Malignant neoplasm of unspecified part of unspecified bronchus or lung (HCC) | + + | Malignant neoplasm of female breast, unspecified estrogen receptor status, unspecified | | laterality, unspecified site of breast (HCC) | + + | Other fatigue | + + | Abnormal weight loss Loss of weight | + + documented in this encounter Administered Medications + +--------+ + +------+------+ | Medication Order | MAR | Action | Dose | Rate | Site | | | Action | Date | | | | + +--------+ + +------+------+ | fluorine-18 FDG injection 12 | Given | 02/06/20 | 14.3 | | | | millicurie 12 millicurie, | | 20 12:00 | millicur | | | | Intravenous, ONCE, 02/06/20 at | | PM PDT | ies | | | | 1200, For 1 dose | | | | | | + +--------+ + +------+------+ +---+---+ | | | +---+---+ documented in this encounter"
--- OUTSIDE RECORDS SUMMARY | ~2020-07-17 | XMS | Encounter Summary ---
Demographics + + + | Address | [address] | | | [place] [address] | + + + | Home Phone [...] Team Providers + +------+ + | Care Information Technology Account Manager Name | Role | Phone | [...] | | | [address] [place] | [place] [address] | | | | | [place] [address] | | | | | | [phone] | | | +--------+ + + + [...] [address] | | | | | | [place], [place] | | | | | | [address] | | | | | | | | +--------+ + + + + documented as of this encounter Procedures + +--------+ + + + | Procedure Name | Priori | Date/Time | Associated Diagnosis | Comments | | | ty | | | | + +--------+ + + + | ADAM DIGITAL | Routin | 06/17/2010 | | Results for this | | SCREENING BILATERAL | e | 12:00 AM | | procedure are in the | | | | PDT | | results section. | + +--------+ + + + documented in this encounter Results ADAM Digital Screening Bilateral (06/17/2010 12:00 AM PDT) + + | Specimen [...]
--- OUTSIDE RECORDS SUMMARY | ~2020-07-17 | XMS | Encounter Summary ---
Demographics + + + | Address | [address] | | | [place] [address] | + + + | Home Phone [...] Team Providers + +------+ + | Care Cafeteria Counter Attendant Name | Role | Phone | [...] + + | Closed | Specialty | Endocrinology | Diagnoses | Albina, | Sanket, | | | Services | | Malignant | Susie Coleman, | Epifanio Alvarez, | | | Required | | neoplasm of | MD [address] | MD [address] | | | | | thyroid | [address] | [address] | | | | | gland (HCC) | [place], | [place], [place] | | | | | | [place] [address] | [address] | | | | | | Phone: | Phone: | | | | | | [phone] | [phone] | | | | | | Fax: | Fax: | | | | | | [phone] | [phone] | +--------+ + + + + + Diagnostic/Screening (Routine) +--------+--------+ + + + + | Status | Reason | Specialty | Diagnoses / | Referred By | Referred To | | | | | Procedures | Contact | Contact | +--------+--------+ + + + + | Closed | | Radiology | Diagnoses | Riegert, | [address] | | | | | Pulmonary | Susie Coleman, | Andrew Raya | | | | | nodule | MD [address] | [place], | | | | | Procedures | [address] | [place] [address] | | | | | CT Guided | [place], | Phone: | | | | | Biopsy Lung | [place] [address] | [phone] | | | | | Or | Phone: | Fax: | | | | | Mediastinum | [phone] | [phone] | | | | | | Fax: | | | | | | | [phone] | | +--------+--------+ + + + + Encounter Details +--------+ + + + + | Date | Type | Department | Care Team | Description | +--------+ + + + + | 10/27/ | Hospital | [facility] | Susie Montemayor | Pulmonary nodule | | 2016 | Encounter | [facility] | MD Lazaro Coleman [address] | (Primary Dx); | | | | ONCOLOGY [address] [place], [place] | Malignant neoplasm | | | | [place], | [address] | of thyroid gland | | | | [place] [address] | | (HCC) | | | | [phone] | | | +--------+ + + + [...] encounter Progress Notes Susie Walker MD - 10/27/2016 12:00 AM [facility] Radiation Oncology Follow-up Note PATIENT: Smitha Rider MR#: [id number] :1960 DOS:10/27/2016 ICD/Diagnosis: C73 - Malignant neoplasm of thyroid gland, Diagnosed 09/2016 (Active) Chief Complaint/History of Present Illness: Smitha Rider is a 56 year-old woman recently diagnosed with Stage III, T1a N1a papil ronda thyroid cancer, bilateral, multifocal, larges in right lobe 1cm, positive margin, LVSI indeterminate and PNI present. Left lobe with 0.6 cm nodule, positive margin, LVSI and PN I present, 1/ small lymph node positive. Indeterminate [...] was reviewed with Radio logy here at [facility] and it was felt that CT guided [...] t o Dr. Coles, endocrinology to establish shelter follow-up. Thank you for allowing me to participate in the care of Smitha Rider. If you should have any questions regarding this evaluation, please do not hesitate to contact me. Susie Vargas M.D. Radiation Oncologist Department of Radiation Oncology [facility] Electronically signed by Susie Walker M.D CC: Doris Stanford M.D. This note was transcribed using [email or web address] speech recognition software. As a result, there ma y be unintended for medical and/or spelling errors. Every attempt is made to correct dicta tion. If there are any questions or errors please contact our office. CSN: [id number] signed by Susie Walker MD at 11/02/2016 11:55 AM PSTd ocumented in this encounter Plan of Treatment +--------+ + + + + | Date | Type | Specialty | Care Team | Description | +--------+ + + + + | 11/22/ | Appointment | Radiation Oncology | AlbinaGerrySusie | | | 2020 | | | MD Lazaro Coleman [address] | | | | | | [place], [place] | | | | | | [address] | | | | | | | | +--------+ + + + + + + +--------+ + + | Name | Type | Priori | Associated Diagnoses | Order Schedule | | | | ty | | | + + +--------+ + + | Ambulatory referral | Outpatient | Routin | Malignant neoplasm | Ordered: 10/27/2016 | | to Endocrinology | Referral | e | of thyroid gland | | | | | | (HCC) | | + + +--------+ + + documented as of this encounter Results CT Guided Biopsy Lung Or Mediastinum (11/04/2016 10:58 AM [facility]) + + | Specimen | + [...] performed through the introducer with an 18-gauge [place] OTRe biopsy | | | gun, producing small [...] rajinder was made to | | accommodate [id number] introducer needle, which was advanced to the margin of the | | nodulewithout difficulty utilizing CT guidance, and an intercostal PA approach. | | Fivecore biopsies of the nodule were performed through the introducer with [id number] | | Biopince biopsy gun, producing small [...] + | Diagnosis | + + | Pulmonary nodule - Primary Solitary pulmonary nodule | + + | Malignant neoplasm of thyroid gland (HCC) Malignant neoplasm of thyroid gland | + + documented in this encounter"
--- OUTSIDE RECORDS SUMMARY | ~2020-07-17 | XMS | Encounter Summary ---
Demographics + + + | Address | [address] | | | [place] [address] | + + + | Home Phone [...] Team Providers + +------+ + | Care Electrical Instrument Repairer Name | Role | Phone | [...] + | 04/22/ | Telephone | [facility] | Serenity Dunn, | Other | | 2016 | | [facility] | RN | | | | | ONCOLOGY CLINIC [address] | | | | | | [address] | | | | | | [place] [address] | | | | | | [phone] | | | +--------+ + + + [...] [place] | | | | | | [address] | | | | | | | | +--------+ + + + + documented as of this encounter Visit Diagnoses Not on filedocumented in this encounter"
--- OUTSIDE RECORDS SUMMARY | ~2020-07-17 | XMS | Encounter Summary ---
Demographics + + + | Address | [address] | | | [place] [address] | + + + | Home Phone [...] Providers + +------+ + | Care Senior Software Project Manager Name | Role | Phone | + +------+ + | Zuleyka Martínez | PCP | | + +------+ + Reason for Visit +--------+--------+ + | Reason | Onset | Comments | | | Date | | +--------+--------+ + | Other | 08/31/ | | | | 2017 | | +--------+--------+ + Encounter Details +--------+ + + + + | Date | Type | Department | Care Team | Description | +--------+ + + + + | 08/31/ | Telephone | [facility] | Susie Montemayor | Other | | 2017 | | [facility] | MD Jared [address] | | | | | ONCOLOGY CLINIC [address] | [place], [place] | | | | | [facility] | [address] | | | | | [place] [address] | | | | | | [phone] | | | +--------+ + + + [...] Telephone Encounter - Azucena Ritchie RN - 09/06/2017 4:31 PM PSTReturn call from patient , she does have follow up with Dr. Cota and she will discuss with her if she would like to order this ultrasound. P STTelephone Encounter - Azucena Ritchie RN - 09/06/2017 3:25 PM PSTLeft message for cindy t to call back. elep tj Encounter - Azucena Ritchie RN - 08/31/2017 1:40 PM PDTPatient stops by my desk today stating she was told she would need a repeat ultrasound of the neck, she is wondering if th is could be done in October for insurance reasons? Please advise. documented in this encounter Plan of Treatment [...] [place] | | | | | | [id number] | | | | | | | | +--------+ + + + + documented as of this encounter Visit Diagnoses Not on filedocumented in this encounter"
--- OUTSIDE RECORDS SUMMARY | ~2020-07-17 | XMS | Encounter Summary ---
Demographics + + + | Address | [address] | | | [place] [address] | + + + | Home Phone [...] Team Providers + +------+ + | Care Solar Technician Name | Role | Phone | [...] | +--------+ + + + + | 09/14/ | [facility] | [facility] | Susie Montemayor | Primary malignant | | 2019 | Encounter | [facility] | MD Jared [address] | neoplasm of female | | | | ONCOLOGY CLINIC [address] | [place], [place] | breast (HCC) | | | | [facility] | [address] | (Primary Dx) | | | | [place] [address] | | | | | | [phone] | | | +--------+ + + + [...] + + + | Blood Pressure | 128/82 | 09/14/2019 3:59 PM | | | | | PST | | + + + + + | Pulse | 80 | 09/14/2019 3:59 PM | | | | | PST | | + + + + + | Temperature | 37.2 C (99 F) | 09/14/2019 3:59 PM | | | | | PST | | + + + + + | Respiratory Rate | 18 | 09/14/2019 3:59 PM | | | | | PST | | + + + + + | Oxygen Saturation | 98% | 09/14/2019 3:59 PM | | | | | PST | | + + + + + | Inhaled Oxygen | - | - | | | Concentration | | | | + + + + + | Weight | 86.9 kg (191 lb 9.3 | 09/14/2019 3:59 PM | | | | oz) | PST | | + + + + + | Height | - | - | | + + + + + | Body Mass Index | 29.04 | 08/08/2019 3:00 PM | | | [...] encounter Progress Notes Susie Montemayor MD - 09/14/2019 4:45 PM PST Radiation Oncology Weekly On Treatment Note Diagnosis: ICD-10-CM ICD-9-CM 1. Primary malignant neoplasm of female breast (HCC) C50.919 174.9 Reason for visit: On treatment evaluation Radiation technical factors: Dose Delivered Dose Planned Fractions Delivered 2136 cGy Boost 0 cGy 4005 cGy 1000 cGy 06/15 0 Images were reviewed this week and [...] rest Wt Readings from Last 3 Encounters: 09/14/19 86.9 kg (191 lb 9.3 oz) 09/07/19 87.4 kg (192 lb 10.9 oz) 08/29/19 88 kg (194 lb 0.1 oz) Vitals: 09/14/19 1559 BP: 128/82 Pulse: 80 Resp: 18 Temp: 37.2 C (99 F) SpO2: 98% Weight: 86.9 kg (191 lb 9.3 oz) Physical Exam Constitutional: She appears well-developed and well-nourished. Neurological: She is alert. Skin: No rash noted. No erythema. Psychiatric: She has a normal mood and affect. Nurse Assessment and Toxicity Grading: Toxicity Flowsheet 09/14/2019 Diarrhea 0 - Grade 0 Nausea 1 - Grade 1 Vomiting 0 - Grade 0 Fatigue 1 - Grade 1 Karnofsky Performance Score 90% Physician Assessment: 09/14/19: Olena is in her second week of treatment. She reports moderate fatigue. No c hanges on the skin, well healed from surgery. Disposition: Continue radiation treatment as planned. Skin [...] [place] | | | | | | [place], [place] | | | | | | [address] | | | | | | | | +--------+ + + + + documented as of this encounter Visit Diagnoses + + | Diagnosis | + + | 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
--- OUTSIDE RECORDS SUMMARY | ~2020-07-17 | XMS | Encounter Summary ---
Demographics + + + | Address | [address] | | | [place] [address] | + + + | Home Phone [...] Team Providers + +------+ + | Care Stud Dairy Cattle Farmer Name | Role | Phone | + +------+ + | Zuelyka Martínez | PCP | | + +------+ [...] | | | [address] [place] | [place] [address] | | | | | [place] [address] | | | | | | [phone] | | | +--------+ + + + [...] [place] | | | | | | [place], [place] | | | | | | [...]
--- OUTSIDE RECORDS SUMMARY | ~2020-07-17 | XMS | Encounter Summary ---
Demographics + + + | Address | [address] | | | [place] [address] | + + + | Home Phone [...] Team Providers + +------+ + | Care Print Press Operator Name | Role | Phone [...] + | 09/29/ | Telephone | [facility] | Azucena Ritchie, | Other | | 2015 | | MED [facility] RAD[facility]ATION | RN | | | | | ONCOLOGY [address] | | | | | | [place], | | | | | | [place] [address] | | | | | | [phone] | | | +--------+ + + + [...] that her prescriptions be sent to [facility] so these are reordered for [facility]. Review ed all instructions for thyroid ablation [...] [place] | | | | | | [place] | | | | | | [address] | | | | | | | | +--------+ + + + + documented as of this encounter Visit Diagnoses Not on filedocumented in this encounter"
--- OUTSIDE RECORDS SUMMARY | ~2020-07-17 | XMS | Encounter Summary ---
Demographics + + + | Address | [address] | | | [place] [address] | + + + | Home Phone [...] Team Providers + +------+ + | Care Any Commodity Buyer Name | Role | Phone | [...] | neoplasm of | [place] | [address] [place] | | | | | unspecified | MD Bebeto | [place], | | | | | part of | [address] | [place] [address] | | | | | right | [place] | Phone: | | | | | bronchus or | [place], [place] | [phone] | | | | | lung (HCC) | [address] | Fax: | | | | | Procedures | Phone: | [phone] | | | | | PA VITAMIN | [phone] | | | | | | B12 | Fax: | | | | | | INJECTION, | [phone] | | | | | | [address] PA | | | | | | | ONDANSETRON | | | | | | | HCL | | | | | | | INJECTION, 1 | | | | | | | MG PA | | | | | | | DEXAMETHASON | | | | | | | E SODIUM | | | | | | | PHOS, 1 MG | | | | | | | PA | | | | | | | FOSAPREPITAN | | | | | | | T INJECTION, | | | | | | | 1 MG PA IV | | | | | | | INFUSION, | | | | | | | HYDRATION, | | | | | | | 31-60 MIN | | | | | | | PA IV | | | | | | | INFUSION, | | | | | | | HYDRATION, | | | | | | | EA ADD HOUR | | | | | | | PA | | | | | | | PEMETREXED | | | | | | | INJECTION, | | | | | | | 10 MG PA | | | | | | | CISPLATIN 10 | | | | | | | MG | | | | | | | INJECTION | | | | | | | PA | | | | | | | DIPHENHYDRAM | | | | | | | INE HCL | | | | | | | INJECTIO, 50 | | | | | | | MG PA | | | | | | | ALBUTEROL | | | | | | | COMP CON, 1 | | | | | | | MG PA | | | | | | | ALBUTEROL | | | | | | | NON-COMP | | | | | | | CON, 1 MG | | | | | | | PA | | | | | | | METHYLPREDNI | | | | | | | SOLONE | | | | | | | INJECTION, | | | | | | | 125 MG PA | | | | | | | INJECTION, | | | | | | | FAMOTIDINE, | | | | | | | 20 MG PA | | | | | | | NORMAL | | | | | | | SALINE | | | | | | | SOLUTION | | | | | | | INFUS, 500 | | | | | | | ML PA | | | | | | | NORMAL | | | | | | | SALINE | | | | | | | SOLUTION | | | | | | | INFUS, 250 | | | | | | | ML PA | | | | | | | STERILE | | | | | | | WATER/SALINE | | | | | | | , 10 ML PA | | | | | | | CHEMOTHER, | | | | | | | IV PUSH,EA | | | | | | | ADD DRUG PA | | | | | | | CHEMOTHER, | | | | | | | IV INFUSION, | | | | | | | 1 HR PA | | | | | | | CHEMOTHER, | | | | | | | IV INFUSION, | | | | | | | EA HR PA | | | | | | | CHEMOTHER,NO | | | | | | | N-HORMONE | | | | | | | ANTI-NEOPL, | | | | | | | SUB-Q/IM PA | | | | | | | CHEMOTHER | | | | | | | HORMON | | | | | | | ANTINEOPL | | | | | | | SUB-Q/IM PA | | | | | | | | | | | | | | PALONOSETRON | | | | | | | HCL, 25 MCG | | | | | | | PA | | | | | | | CARBOPLATIN | | | | | | | INJECTION, | | | | | | | 50 MG | | | +--------+--------+ + + + + Encounter Details +--------+ + + + + | Date | Type | Department | Care Team | Description | +--------+ + + + + | 02/19/ | Hospital | [facility] | Milton Salazar | 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 Bebeto [address] | cancer of right lung | | | | INFUSION [address] [place] | (HCC) | | | | [place], | [place] [address] | | | | | [place] [address] | [phone] | | | | | [phone] | | | +--------+ + + + [...] PM PDTDc/d amb in stable condition with pharmacy associate . Has return appts d ocumented in [...] [place] | | | | | | [id number] | | | | | | | [...] (PLATINOL) 154.5 mg | New Bag | 02/20/20 | 154.5 mg | 500 | | [...]
--- OUTSIDE RECORDS SUMMARY | ~2020-07-17 | XMS | Encounter Summary ---
Demographics + + + | Address | [address] | | | [place] [address] | + + + | Home Phone [...] Providers + +------+ + | Care Chief Business Officer Name | Role | Phone | [...] + + + + | 09/21/ | [facility] | [facility] | Susie Montemayor | Primary malignant | | 2019 | Encounter | MED [facility] RAD[facility]ATION | MD Jared [address] | neoplasm of female | | | | ONCOLOGY CLINIC [address] | [place], [place] | breast (HCC) | | | | [facility] | [address] | (Primary Dx) | | | | [place] [address] | | | | | | [phone] | | | +--------+ + + + [...] [place] | | | | | | [address] | | | | | | | | +--------+ + + + + documented as of this encounter Visit Diagnoses + + | Diagnosis | + + | 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
--- OUTSIDE RECORDS SUMMARY | ~2020-07-17 | XMS | Encounter Summary ---
Demographics + + + | Address | [address] | | | [place] [address] | + + + | Home Phone [...] Team Providers + +------+ + | Care Grab Hooker Name | Role | Phone | + [...] | | | [address] [place] | [place] [address] | | | | | [place] [address] | | | | | | [phone] | | | +--------+ + + + [...] | | | | | | [place], [place] | | | | | | [address] | | | | | | | [...]
--- OUTSIDE RECORDS SUMMARY | ~2020-07-17 | XMS | Encounter Summary ---
Demographics + + + | Address | [address] | | | [place] [address] | + + + | Home Phone [...] Providers + +------+ + | Care Toll Line Mechanic Name | Role | Phone | + +------+ + | Zuleyka Martínez | PCP | | + +------+ + Reason for Visit + +--------+ + | Reason | Onset | Comments | | | Date | | + +--------+ + | Follow-up | 02/14/ | | | | 2020 | | + +--------+ + Encounter Details +--------+ + + + + | Date | Type | Department | Care Team | Description | +--------+ + + + + | 02/14/ | Telephone | [facility] | Bernice Novoa | Follow-up | | 2019 | | MED CTR MEDICAL | [facility] | | | | | ONCOLOGY CLINIC [address] | | | | | | [address] [place] | | | | | | [place] [address] | | | | | | [phone] | | | +--------+ + + + [...] this encounter Miscellaneous Notes Telephone Encounter - Bernice Novoa RN - 02/15/2020 2:37 PM PDTPhone call to Ankit shipley for support / follow up. She agrees that her ongoing diagnoses and complexity of care lindsey s "been a lot". She is also concerned for family members who are ill or in treatment; and i s celebrating her daughter's with a first grand-child. She appreciates Dr. Kassandra barclay's support and outlining of best next steps and says that has helped relieve her anxiety. She anticipates surgery/ biopsy next week though doesn't have it scheduled yet. 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 She says a r educed income will be "tight, but doable". She says she's learning to take "one day at a ava e". We agree that I should call back again in the next couple weeks. documented in this encounter Plan of Treatment +--------+ + + + + | Date | Type | Specialty | Care Team | Description | +--------+ + + + + | 11/22/ | Appointment | Radiation Oncology | Susie Montemayor | | | 2020 | | | MD [address] | | | | | | [place] | | | | | | [address] | | | | | | | | +--------+ + + + + documented as of this encounter Visit Diagnoses Not on filedocumented in this encounter
--- OUTSIDE RECORDS SUMMARY | ~2020-07-17 | XMS | Encounter Summary ---
Demographics + + + | Address | [address] | | | [place] [address] | + + + | Home Phone [...] Author + + + | Author | [facility] | | | and [place] | + + + | Organization | [facility] | | | [...] Team Providers + +------+ + | Care Pre Sales Technical Consultant Name | Role | Phone | + +------+ + | Zuleyka Martínez | PCP | | + +------+ + Encounter Details +--------+ + + + + | Date | Type | Department | Care Team | Description | +--------+ + + + + | 10/01/ | Hospital | [facility] | CiprianoKimZuleyka, | Thyroid cancer (HCC) | | 2017 | Encounter | MED CTR ULTRASOUND | MD [address] | | | | | [address] [place] | [address] [place], | | | | | [place] | [place] [address] | | | | | [address] | [phone] | | | | | [phone] | | | | | | | Yoselin Santos | | | | | | R, Adz Worker | | +--------+ + + + + [...] | | | | | | [facility] [place] | | | | | | [address] | | | | | | | [...] + | Christopher, Andrea Results In - 10/01/2017 9:23 PM PST [...]
--- OUTSIDE RECORDS SUMMARY | ~2020-07-17 | XMS | Encounter Summary ---
Demographics + + + | Address | [address] | | | [place] [address] | + + + | Home Phone | | + + + | Preferred Language | Unknown | + + + | Marital Status | Single | + + + | Samaritan Affiliation | Unknown | + + + | Race | White | + + + | Ethnic Group | Not or | + + + Author + + + | Author | [facility] | | | and [place] | + + + | Organization | [facility] | | | [...] Team Providers + +------+ + | Care Silver Miner Name | Role | Phone | + [...] + | 01/03/ | Emergency | [facility] | Srinivas Blakely MD | Preseptal cellulitis | | 2020 - | | [facility] | [address] | (Primary Dx); | | | | [address] [place] | [place], [place] | Blepharitis of both | | 01/05/ | | [place] [address] | [phone] | upper and lower | | 2020 | | [phone] | | eyelid of left eye, | | | | | Tamica Pete | unspecified type; | | | | | MD Lloyd [address] | Periorbital | | | | | [address] [place] | cellulitis of left | | | | | [place] [address] | eye; Brain lesion; | | | | | [phone] | Malignant neoplasm | | | | [...] level of medial canthus, ED spoke with Automotive Lot Attendant on c all who recommended IV and [...] 1 week. Specialty: Nurse Practitioner Contact information: [address] [facility] [address] Milton Salazar MD In 5 days. Specialty: Medical Oncology Contact information: [address] [facility] [id number] Discharge Medications New Medications Details cefdinir 300 [...] by: Anupam Ball MD, 01/06/2020 9:04 AM [facility] documented in this encounter Discharge Instructions Instructions [...] amount is 8 ounces per day ? [place] Fresh Yogurt Recommended amount is 6 ounces [...] Cota, Dr. Salazar X Pharmacy list names: [facility] (Preferred) [facility] State Prescription Monitoring Program ([place]) X Care Everywhere X Outside Information Vaccines up to date? Influenza Yes Pneumococcal No Tdap Yes Shingles No Noted medications discrepancies or medication-related issues: Dosage/Form/Frequency change: HOISTING LABORER Medication: Prior to Admission Sig: Correct Dosage/Form: [...] Prior to Admission Sig: Patient taking differently HOISTING LABORER as: Levothyroxine 112 mcg tab 1 tab by mouth every other day. Alternate with 125 mcg tab 112 mc g every morning on Wednesday, Wednesday and Wednesday one month and Wednesday, Wednesday, and Wednesday the next month. December is Wednesday, Wednesday dose. Best possible HOISTING LABORER medication list after pharmacy review: PT REPORTED TAKING NOT TAKING Medication Sig Last Dose Dispense Doc. Gary acetaminophen (TYLENOL) 500 mg tablet Take 1,000 mg by mouth every 6 hours as needed for P ain. Taking Historical MD Gary ALPRAZolam (XANAX) 0.25 mg tablet Take 0.125 mg by mouth 3 times daily as needed. For ken re anxiety Taking Zuleyka Martínez amoxicillin-clavulanate (AUGMENTIN) 500-125 mg per tablet Take 1 tablet by mouth 3 times d aily. For 7 days Taking Wilder Vega MD Calcium 500 MG TABS Take 500 mg [...] times daily as needed for Pain. T kyleg Historical ProviderMD triamcinolone (KENALOG) 0.1% cream Apply 1 Application topically 2 times daily. For 7 days to upper left eye lid Taking Historical ProviderMD zolpidem (AMBIEN) 10 mg tablet Take 10 mg by mouth nightly. Taking Historical ProviderJared Medication review performed and electronically signed by Heather Dang, Vocal Teacher 01/05/2020 3:47 PM Reviewed by Nissa Mayers, PharmD 01/05/2020 5:06 PM each, Anupam Mejia MD - 01/05/2020 4:33 PM PST [facility] Hospitalist Progress Note Olena Rider is [...] medial canthus, ED spoke with Ophthalmologis t provider education specialist who recommended IV and topical abx - [...] above. Anupam Ball MD 01/05/2020 4:35 PM [facility] [address] dical Student - 01/05/2020 8:16 AM PSTFormatting of this note might be different from the o riginal. 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 Initiate [...] might be differen t from the original. [place] HOSPITALIST HISTORY & PHYSICAL Patient: Olena Rider : 1960: Age: 59 y.o. MedRec: [id number] Admission date: 01/04/2020 Hospital day # : [...] upper eyelid and crusting. She saw an assorter in [facility] on 12/31 who prescribed her Aug mentin and Tobramycin drops. She had worsening her symptoms despite oral and topical abx bec ause of which her assorter told her to go to the ER. [...] medial canthus, ED spoke with Ophthalm ologist provider education specialist who recommended IV and Topical abx. PAST [...] PO) Take by mouth Daily. Historical Prov ider, omeprazole (PRILOSEC) 20 mg capsule Take 20 [...] c/c/e Pych: normal mood and affect Neuro: rating clerk 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, no focal weakness or sensory [...] Procedure Component Value Units Date/Time Culture, Blood [[id number]] Collected: 01/04/20 1242 Order Status: Sent Lab Status: In process Updated: 01/04/20 1246 Specimen: Peripheral Blood Culture, Blood [[id number]] Collected: 01/04/20 1239 Order Status: Sent Lab [...] MAY BE INTRAVENTRICULAR OR SUBEPENDYMAL. FOLLOW-UP UNENHAN MICHEELT AND ENHANCED BRAIN MRI SHOULD BE STRONGLY [...] medial canthus, ED spoke with Ophthalmologis t provider education specialist who recommended IV and topical abx - [...] (RLL, Stage IIIA, s/p VATS in 2016) # Papillary Thyrroid Ca (s/p thyroidectomy, LN [...] by: Tamica Pete MD 01/04/2020 1:13 PM [facility] Portions of this chart may have been created with [employer] voice recognition software. Occasi onal wrong-word or [...] worse this morning. Was sent by her assorter today. rinivas Blakely MD - 01/04/2020 9:41 AM PSTFormatt ing of this note might be different from the original. [facility] Olena Rider Emergency Department Encounter Note [address] [place] [id number] PCP:Zuleyka Martínez [phone] CHIEF COMPLAINT: Chief Complaint [...] doubl e vision. She was evaluated by relationship specialist earlier today who recommend that she come [...] Location: [facility] EXTERNAL IMAGING COLECTOMY HYSTERECTOMY THYROIDECTOMY CURRENT MEDICATIONS HOISTING LABORER Home Medications Medication Sig ALPRAZolam (XANAX) 0.5 [...] at 1130 hours. Dictated and Signed by: Hguo Godfrey MD Electronically signed: 01/04/2020 11:32 AM ED COURSE & MEDICAL DECISION MAKING Pertinent Labs & Imaging studies were reviewed along with EMS notes and jail record s if applicable. (See chart for [...] developing abscess. I discussed the case w beny Villafana of ophthalmology. He recommended IV and [...] nter Miscellaneous Notes Plan of Care - Loren Yoselin R - 01/05/2020 11:37 AM PSTDischarge Planning: This CM Asst spoke with Olena at her bedside regarding discharge plans. Olena reports living in her home in [place] with her 26 year old daughter Jennifer and her four dogs. She reports her son rents the basement apartment. Olena reports 2 steps to enter the home. No stairs inside the home. Her bathroom has a t ub shower. Olena is independent with her ADL's. She does not use any DME. She drives. Her PCP is Zuleyka Martínez. She uses the [facility] pharmacy in [place]. 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 She would like to discharge home with IV abx if necessary with [place]. Olena will transport herself home when stable for discharge. Dispo: Home at discharge with possible IV abx Electronically signed by: Yoselin Pimentel 01/05/2020 11:42 AM lan of Duglas Collins RN - 01/05/2020 4:36 AM PSTMichelvioletta had no falls or injuries this shift. [...] Independent in room. IV abx. given . Anaillia chan signed by Cathy Franco RN at [...] [place] | | | | | | [address] | | | | | | | [...] ST. | [address] | [place], [place] | [phone] | | [facility] | | [address] | | | - LABORATORY | | [...] [address] | [place] | [phone] | | [facility] | | [address] | | | - LABORATORY | | [...] 12 | 9 - 23 mg/dL | [facility] | | | | | | [facility] | | | | | | MEDICAL | | | | | | CENTER - | | | | | | LABORATORY | | + + + + + + | Creatinine | 0.87 | 0.55 - 1.02 | [facility] | | | | | mg/dL | [facility] | | | | | | MEDICAL | | | | | | CENTER - | | | | | | LABORATORY | | + + + + + + | eGFR, | >60Comment: GLOMERULAR | >=60 | [facility] | | | non- | FILTRATION | mL/min/1.73m2 | [facility] | | | [place] | RATE,ESTIMATED | | MEDICAL | | | | mL/min/1.75p6Jwtt than | | CENTER - | | [...] + | [facility] | [address] | [place] | [phone] | | [facility] | | [address] | | | - LABORATORY | | | | + + + + + Culture, Blood (01/04/2020 12:42 PM PST) + + + + + + | Component | Value | Ref Range | Performed | Pathologist | | | | | At | Signature | + + + + + + | Culture | No growth after 5 days | | [facility] | | | | incubation. | | [facility] | | | [...] + | [facility] | [address] | [place] | [phone] | | [facility] | | [address] | | | - LABORATORY | | [...] [address] | [place] | [phone] | | [facility] | | [address] | | | - LABORATORY | | [...] | | Dictated and Signed by: Hugo Epifanio, MD | | Electronically signed: 01/04/2020 11:32 [...] | 2.62 | 0.55 - 4.78 | [facility] | | | | | uIU/mL | [facility] | | [...] | + + + + + | [facility] | [address] | [place] | [phone] | | [facility] | | [address] | | | - LABORATORY | | [...] 10 | 9 - 23 mg/dL | [facility] | | | | | | [facility] | | | | | | MEDICAL | | | | | | CENTER - | | | | | | LABORATORY | | + + + + + + | Creatinine | 0.86 | 0.55 - 1.02 | [facility] | | | | | mg/dL | [facility] | | | | | | MEDICAL | | | | | | CENTER - | | | | | | LABORATORY | | + + + + + + | eGFR, | >60Comment: GLOMERULAR | >=60 | [facility] | | | non- | FILTRATION | mL/min/1.73m2 | [facility] | | | [place] | RATE,ESTIMATED | | MEDICAL | | | | mL/min/1.38k8Flrx than | | CENTER - | | [...] [address] | [place] | [phone] | | [facility] | | [address] | | | - LABORATORY | | [...] | Eosinophils | | K/uL | [facility] | [...] [address] | [place] | [phone] | | [facility] | | [address] | | | - LABORATORY | | [...] head and neck | + + | Primary malignant neoplasm [...] | | | C (101.5 F), Starting [place] 01/04/20 | | | | | | [...] | | | | 30 Minutes, ONCE, [facility] 01/04/20 at | | | | | [...] | | | (Daily), First dose on [place] 01/04/20 | | | | | | [...] | | First dose on Wed01/04/20 at 1400 | | | | | [...] | | | | First dose on [facility] 01/04/20 at 1430 | | | | | [...]
--- OUTSIDE RECORDS SUMMARY | ~2020-07-17 | XMS | Encounter Summary ---
Demographics + + + | Address | [address] | | | [place] [address] | + + + | Home Phone [...] Author + + + | Author | [facility] | | | and [place] | + + + | Organization | [facility] | | [...] Team Providers + +------+ + | Care Top Cleaner Name | Role | Phone | [...] | | | [facility] [address] | [place], [place] | | | | | [facility] | [address] | | | | | [place] [address] | | | | | | [phone] | | | +--------+ + + + [...] MD Sent: 02/14/2020 12:15 PM PDT To: [facility] Rad Onc Clinical Staff [...] [place] | | | | | | [phone] | | | | | | | | +--------+ + + + + documented as of this encounter Visit Diagnoses Not on filedocumented in this encounter"
--- OUTSIDE RECORDS SUMMARY | ~2020-07-17 | XMS | Encounter Summary ---
Demographics + + + | Address | [address] | | | [place] [address] | + + + | Home Phone [...] + + | Author | [facility] | | | and [place] | + + + | Organization | [facility] | | | and [...] Team Providers + +------+ + | Care Certified Pest Control Technician Name | Role | Phone | [...] + +--------+ + + + + | Authorizatio | | | Diagnoses | Avinash, | [facility] | | n not | | | Brain mass | Lemuel, DO | [facility] | | Required | | | Mucinous | [address] | [facility] | | | | | adenocarcino | [address] | MEDICAL | | | | | ma (HCC) | [address] | CENTER [address] | | | | | Procedures | B | [place] | | | | | MRI Brain w | [place], | [place], | | | | | wo Contrast | [place] [address] | [place] [address] | | | | | | Phone: | Phone: | | | | | | [phone] | [phone] | | | | | | Fax: | Fax: | | | | | | [phone] | [phone] | + +--------+ + + + + Encounter Details +--------+---------+ + + + | Date | Type | Department | Care Team | Description | +--------+---------+ + + + | 03/11/ | Office | [facility] | Lemuel Da Silva DO | Brain mass (Primary | | 2019 | Visit | NEUROSURGERY [address] | Dx); 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[address] | [address]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) | | | | [place], [place] | [place] [address] | | | | | [address] | [phone] | | | | | [phone] | | | +--------+---------+ + + + [...] AM PDT Neurosurgery Post Operative Clinic Note [facility] Provider: Lemuel Da Silva DO Date [...] Surg suzanne: Lemuel Da Silva, DO; Location: [facility] MAIN OR BREAST BIOPSY Right 06/15/2019 Procedure: [...] file Gets together: Not on file Attends adventist service: Not on file Active member of [...] s table in size. Signed by: Russ Rendon Richard Sign Date/Time: 02/27/2020 2:33 PM Mri Brain [...] Negative PAX8 is strong evidence against a FLIGHT AGENT primary. The positive CA19-9 and polyclonal CEA [...] of the brain which was ordered for [place]'s region in approximate ly 3 months and [...] Board Certified Neurosurgeon / Chief of Neurosurgery [facility] Office Parts of this document have been created with voice recognition software. Although I have p roofread the note, battery plate remover errors may still exist. 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
--- OUTSIDE RECORDS SUMMARY | ~2020-07-17 | XMS | Encounter Summary ---
Demographics + + + | Address | [address] | | | [place] [address] | + + + | Home Phone [...] Team Providers + +------+ + | Care Food Operations Manager Name | Role | Phone | [...] + + + + | 03/22/ | [facility] | [facility] | Milton Salazar | Non-small cell | | 2017 | Encounter | [facility] | MD [address] | cancer of right lung | | | | [facility]OGY CLINIC [address] | [address] [place] | (HCC) (Primary Dx); | | | | [facility] | [place] [address] | Abnormal stress ECG | | | | [place] [address] | [phone] | with treadmill; | | | | [phone] | | Malignant neoplasm | | | [...] + + + | Blood Pressure | 137/90 | 03/22/2017 11:05 AM | | | | | PDT | | + + + + + | Pulse | 87 | 03/22/2017 11:05 AM | | | | | PDT | | + + + + + | Temperature | 36.5 C (97.7 F) | 03/22/2017 11:05 AM | | | | | PDT | | + + + + + | Respiratory Rate | 16 | 03/22/2017 11:05 AM | | | | | PDT | | + + + + + | Oxygen Saturation | 99% | 03/22/2017 11:05 AM | | | | | PDT | | + + + + + | Inhaled Oxygen | - | - | | | Concentration | | | | + + + + + | Weight | 83.1 kg (183 lb 3.2 | 03/22/2017 11:05 AM | | | | oz) | PDT | | + + + + + | Height | - | - | | + + + + + | Body Mass Index | 27.86 | 11/04/2016 9:00 AM | | | [...] encounter Progress Notes Milton Salazar MD - 03/22/2017 11:30 AM PDTFormatting of this note might be diff erent from the original. Patient is a 56 y.o. female seen today, 03/22/2017, for chemotherapy with pem/carboplatrin f or NSCLC. Today is day 10/cycle 2 of therapy. Patient complaints: nausea Symptoms are rapidly improving during the past 24 hours. Advance Directives: not addressed Appropriate portions of the patient's past medical, surgical, family, and social history we re reviewed and updated. Review of Systems Constitutional: States fatigue. Denies shaking chills, anorexia, nausea, vomiting, or nig ht sweats. Appetite without changes. States appetite the first week after chemo is poor. W eight loss of 6 lbs. States wednesday having fever as high as 101.3 kg-though out the day. Ear, Nose, Mouth, Throat: Denies odynophagia, dysphagia, or tinnitus. Cardiovascular: Denies shortness of breath, dyspnea on exertion, chest pain, palpitations o r orthopnea. Respiratory: Denies hemoptysis, or sputum production. States after her treatment she's had nasal drainage and cough-which goes away. Gastrointestinal: Denies abdominal pain, diarrhea, melena, or bright red blood per rectum. States some constiaption-minimal. Genitourinary: Denies hematuria or dysuria. Musculoskeletal: Denies joint pain or tenderness. Arthritic pain reported. Neurologic: Denies visual changes, or numbness/tingling of the extremities. Intermittent h eadaches. Endocrine: Denies peripheral edema or heat/cold intolerance. Hematologic: Denies spontaneous bruising or bleeding. Integumentary: Denies rash, wounds or other skin concerns. Pain: Arthritic pain rates the pain at a 3/10 this is with out pain medication. Pain can ge t as high as a 5-6/10. Tolerable pain level: 3>/10. Objective: BP 137/90 | Pulse 87 | Temp 36.5 C (97.7 F) (Tympanic) | Resp 16 | Wt 83.1 kg (183 lb 3.2 oz) | LMP (LMP Unknown) | SpO2 99% | BMI 27.86 kg/m General appearance: alert, appears stated age and cooperative Data Review CBC: Lab Results Component Value Date WBC 6.9 03/22/2017 RBC 3.84 03/22/2017 BMP: Lab Results Component Value Date CO2 25 03/22/2017 BUN 7 03/22/2017 CALCIUM 9.4 03/22/2017 Assessment: Active Problems: 1. Non-small cell cancer of right lung (HCC) 2. Abnormal stress ECG with treadmill 3. Malignant neoplasm of thyroid gland (HCC) Plan: The patient has a documented plan of care to address pain. 1. Review laboratory suggesting continued excellent tolerance to treatment. 2. Discussed unlikely interference between antinausea medication and patient's thyroid rep lacement. 3. Reviewed schedule for surveillance evaluation with CT chest scheduled to time of comple tion of adjuvant therapy Milton Salazar Johnna Wagner, [facility] - 03/22/2017 11:08 AM PDTREVIEW OF SYSTEMS Constitutional: States fatigue. Denies shaking chills, anorexia, nausea, vomiting, or nig ht sweats. Appetite without changes. States appetite the first week after chemo is poor. W eight loss of 6 lbs. States wednesday having fever as high as 101.3 kg-though out the day. Ear, Nose, Mouth, Throat: Denies odynophagia, dysphagia, or tinnitus. Cardiovascular: Denies shortness of breath, dyspnea on exertion, chest pain, palpitations o r orthopnea. Respiratory: Denies hemoptysis, or sputum production. States after her treatment she's had nasal drainage and cough-which goes away. Gastrointestinal: Denies abdominal pain, diarrhea, melena, or bright red blood per rectum. States some constiaption-minimal. Genitourinary: Denies hematuria or dysuria. Musculoskeletal: Denies joint pain or tenderness. Arthritic pain reported. Neurologic: Denies visual changes, or numbness/tingling of the extremities. Intermittent h eadaches. Endocrine: Denies peripheral edema or heat/cold intolerance. Hematologic: Denies spontaneous bruising or bleeding. Integumentary: Denies rash, wounds or other skin concerns. Pain: Arthritic pain rates the pain at a 3/10 this is with out pain medication. Pain can ge t as high as a 5-6/10. Tolerable pain level: 3>/10. Note: Pt is here for MARIS check. My chart: Declined-gave pamphlet and will have daughter do it for her. documented in this encounter Miscellaneous Notes Addendum Note - Milton Salazar MD - 03/22/2017 11:41 AM PDTEncounter addended by : Milton Salazar MD on: 03/22/2017 11:41
Actions taken: Sign clinical note, LOS modified ddendum Note - Amanda Mckenna CMA - 03/22/2017 11:41 AM PDTEncounter addended by: Amanda Mckenna CMA on: 03/22/2017 11:41
Actions taken: Charge Capture section acceptedElect ronically signed by Amanda Mckenna CMA at 03/22/2017 11:41 AM PDTAddendum Note - Milton Burnett MD - 03/22/2017 11:31 AM PDTEncounter addended by: Milton Salazar MD on: 03/22/2017 11:31
Actions taken: Pend clinical note ddendum Note - Amanda Mckenna [facility] - 0 03/22/2017 11:16 AM PDTEncounter addended by: Amanda Mckenna CMA on: 03/22/2017 11:16
Actions taken: Home Medications modified, Medication taking status modified, Order Reconcil iation Section accessed, Visit Navigator Flowsheet section accepted, Chief Complaint modifie d, Sign clinical note TAddendum Note - Kelin Hickey Diesel Powerplant Supervisor - 03/22/2017 10:37 AM PDTEncounter addended by: Mallory Walters on: 03/22/2017 10:37
Actions taken: Charge Capture section accepted, Multistep and multistep collection tasks completed documented in this encounter Plan of Treatment +--------+ + + + + | Date | Type | Specialty | Care Team | Description | +--------+ + + + + | 11/22/ | Appointment | Radiation Oncology | Susie Montemayor | | | 2020 | | | MD [address] | | | | | | [place], [place] | | | | | | [id number] | | | | | | | | +--------+ + + + + documented as of this encounter Procedures + +--------+ + + + | Procedure Name | Priori | Date/Time | Associated Diagnosis | Comments | | | ty | | | | + +--------+ + + + | CBC WITH | STAT | 03/22/2017 | Abnormal stress | Results for this | | DIFFERENTIAL | | 10:37 AM | ECG with treadmill | procedure are in the | | | | PDT | Malignant neoplasm | results section. | | | | | of thyroid gland | | | | | | (HCC) | | + +--------+ + + + | COMPREHENSIVE | STAT | 03/22/2017 | Abnormal stress | Results for this | | METABOLIC PANEL | | 10:37 AM | ECG with treadmill | procedure are in the | | | | PDT | Malignant neoplasm | results section. | | | | | of thyroid gland | | | | | | (HCC) | | + +--------+ + + + documented in this encounter Results CBC with Differential (03/22/2017 10:37 AM PDT) + + + + + + | Component | Value | Ref Range | Performed | Pathologist | | | | | At | Signature | + + + + + + | White Blood | 6.9 | 4.0 - 11.0 K/uL | [facility] | | | Cells | | | [facility] | | | | | | [facility] | | | | | | [facility] - | | | | | | LABORATORY | | + + + + + + | Red Blood | 3.84 | 3.70 - 5.20 | [facility] | | | Cells | | M/uL | [facility] | | | | | | [facility] | | | | | | [facility] - | | | | | | LABORATORY | | + + + + + + | Hemoglobin | 12.1 | 11.5 - 16.0 | [facility] | | | | | g/dL | [facility] | | | | | | [facility] | | | | | | C[facility] - | | | | | | LABORATORY | | + + + + + + | Hematocrit | 34.7 | 34.0 - 47.0 % | [facility] | | | | | | [facility] | | | | | | [facility] | | | | | | [facility] - | | | | | | LABORATORY | | + + + + + + | MCV | 90.5 | 83.0 - 101.0 fL | [facility] | | | | | | [facility] | | | | | | [facility] | | | | | | [facility] - | | | | | | LABORATORY | | + + + + + + | MCH | 31.6 | 28.0 - 35.0 pg | [facility] | | | | | | [facility] | | | | | | [facility] | | | | | | [facility] - | | | | | | LABORATORY | | + + + + + + | MCHC | 34.9 | 32.0 - 36.0 | [facility] | | | | | g/dL | [facility] | | | | | | [facility] | | | | | | [facility] - | | | | | | LABORATORY | | + + + + + + | RDW-CV | 13.6 | <15.0 % | [facility] | | | | | | [facility] | | | | | | [facility] | | | | | | [facility] - | | | | | | LABORATORY | | + + + + + + | Platelet | 179 | 140 - 440 K/uL | [facility] | | | Count | | | [facility] | | | | | | [facility] | | | | | | CENTER - | | | | | | LABORATORY | | + + + + + + | MPV | 8.4 | fL | [facility] | | | | | | [facility] | | | | | | [facility] | | | | | | [facility] - | | | | | | LABORATORY | | + + + + + + | % | 42.7 (L) | 45.0 - 82.0 % | [facility] | | | Neutrophils | | | [facility] | | | | | | [facility]ICAL | | | | | | CENTER - | | | | | | LABORATORY | | + + + + + + | % | 45.6 (H) | 20.0 - 45.0 % | [facility] | | | Lymphocytes | | | [facility] | | | | | | [facility] | | | | | | [facility]ENTER - | | | | | | LABORATORY | | + + + + + + | % Monocytes | 10.9 | 4.0 - 12.0 % | [facility] | | | | | | [facility] | | | | | | [facility] | | | | | | [facility] - | | | | | | LABORATORY | | + + + + + + | % | 0.5 | 0.0 - 5.0 % | [facility] | | | Eosinophils | | | [facility] | | | | | | MEDICAL | | | | | | CENTER - | | | | | | LABORATORY | | + + + + + + | % Basophils | 0.3 | 0.0 - 1.0 % | [facility] [...] + + + + | Absolute | 3.20 | 0.60 - 3.20 | [facility] | [...] | 0.00 | 0.00 - 0.10 | [facility] | | | Basophils | | K/uL [...] [address] | [place] | [phone] | | [facility] | | [address] | | | - LABORATORY | | | | + + + + + Comprehensive Metabolic Panel (03/22/2017 10:37 AM PDT) + + + + + + | Component | Value | Ref Range | Performed | Pathologist | | | | | At | Signature | + + + + + + | Na | 143 | 136 - 149 | [facility] | | | | | mmol/L | [facility] | | | | | | [facility]ICAL | | | | | | CENTER - | | | | | | LABORATORY | | + + + + + + | K | 3.3 (L) | 3.5 - 5.1 | [facility] [...] + + + + | Glucose | 123 (H) | 70 - 109 mg/dL | [facility] | | | | | | [facility] | | | [facility] | | | | | | CENTER - | | | | | | LABORATORY | | + + + + + + | BUN | 7 | 7 - 18 mg/dL | [place] | | | | | | [facility] | | | | | | MEDICAL | | | | | | CENTER - | | | | | | LABORATORY | | + + + + + + | Creatinine | 1.00 | 0.60 - 1.30 | [place] | | | | | mg/dL | [facility] | | | | | | MEDICAL | | | | | | CENTER - | | | | | | LABORATORY | | + + + + + + | eGFR, | 58 (L)Comment: | >=60 | [place] | | | non- | GLOMERULAR FILTRATION | mL/min/1.73m2 | [facility] | | | [place] | RATE,ESTIMATED | | MEDICAL | | | | mL/min/1.29d5Iecy than | | CENTER - | | [...] + + + + | Calcium | 9.4 | 8.3 - 10.5 | [facility] | | | | | mg/dL | [facility] | | | | | | MEDICAL | | | | | | CENTER - | | | | | | LABORATORY | | + + + + + + | Albumin | 3.7 | 3.2 - 5.0 g/dL | [facility] [...] + + + + | Total | 6.5 | 6.0 - 7.8 g/dL | [facility] [...] + + + + | ALT | 19Comment: This is an | 6 - 45 U/L | [facility] | | | | appended report. These | | [facility] | | | | results have been | | MEDICAL | | | | appended to a previously | | CENTER - | | | | preliminary verified | | LABORATORY | | | | report. | | | | + + + + + + | Alkaline | 70Comment: This is an | 40 - 110 [...] + + + + | BUN/Creatin | 7.0 | | [facility] | | | ine [...] ST. | [address] | [place] | [phone] | | [facility] | | [address] | | | - LABORATORY | | [...]
--- OUTSIDE RECORDS SUMMARY | ~2020-07-17 | XMS | Encounter Summary ---
Demographics + + + | Address | [address] | | | [place] [address] | + + + | Home Phone | | + + + | Preferred Language | Unknown | + + + | Marital Status | Single | + + + | Christian Affiliation | Unknown | + + + | Race | White | + + + | Ethnic Group | Not or | + + + Author + + + | Author | [facility] | | | and [place] | + + + | Organization | [facility] | | | [...] Team Providers + +------+ + | Care Disability Aide Name | Role | Phone | + +------+ + | Zuleyka Martínez | PCP | | + +------+ + Reason for Visit +--------+--------+ + | Reason | Onset | Comments | | | Date | | +--------+--------+ + | Other | 05/24/ | Survivorship | | | 2017 | | +--------+--------+ + Encounter Details +--------+ + + + + | Date | Type | Department | Care Team | Description | +--------+ + + + + | 05/24/ | Telephone | [facility] | Serenity Dunn, | Other (Survivorship) | | 2017 | | [facility] | RN | | | | | ONCOLOGY CLINIC [address] | | | | | | [address] | | | | | | [place] [address] | | | | | | [phone] | | | +--------+ + + + [...] Telephone Encounter - Serenity Dunn RN - 05/24/2017 3:05 PM PDTI called Olena for a one month survivorship follow up. She states she is feeling ok but still "sluggish". In ad dition to being treated for lung cancer, Olena has a history of thyroid cancer. She state s she may be feeling sluggish due to her thyroid. Thyroid labs were checked last on 05/03/17 a nd Olena states the plan with Dr. Vargas was to keep her meds the same but she wanted to re check labs again in 6 weeks. Olena also had a neck US on 05/03 and will require anoth er one in 6 months. Olena is able to perform daily activities despite feeling sluggish. S he notes her fatigue has improved since the completion of chemo. She will follow up with Dr. Salazar regarding her lung cancer next on 05/31/17. Olena did not have any questions o r concerns today and denies any needs, therefore, no further referrals to be recommended at this time by survivorship coordinator. Olena has my contact information and was encourage d to contact me with any future survivorship questions or concerns. Survivorship follow up w ill be on an as needed basis going forward. documented in this encounter Plan of Treatment [...]
--- OUTSIDE RECORDS SUMMARY | ~2020-07-17 | XMS | Encounter Summary ---
Demographics + + + | Address | [address] | | | [place] [address] | + + + | Home Phone [...] Team Providers + +------+ + | Care Buttonhole Facer Name | Role | Phone | + [...] | | | [address] [place] | [place] [address] | | | | | [place] [address] | | | | | | [phone] | | | +--------+ + + + [...] [address] | | | | | | [place], [place] | | | | | | [...]
--- OUTSIDE RECORDS SUMMARY | ~2020-07-17 | XMS | Encounter Summary ---
Demographics + + + | Address | [address] | | | [place] [address] | + + + | Home Phone [...] + + + | Author | [facility] | | | and [place] | + + + | Organization | [facility] | | | [...] Team Providers + +------+ + | Care Customs Verifier Name | Role | Phone | + [...] | | | (ICD-9-CM) - | [address] [place] | | | | | Non-small | [place], | [place], [place] | | | | | cell cancer | [place] | [address] Phone: | | | | | of right | [address] | [phone] | | | | | lung | Phone: | Fax: | | | | | Procedures | [phone] | [phone] | | | | | [address] | Fax: | | | | | | | [phone] | | +--------+--------+ + + + + Encounter Details +--------+ + + + + | Date | Type | Department | Care Team | Description | +--------+ + + + + | 08/29/ | Hospital | [facility] | Marie Milton | Malignant neoplasm | | 2019 | Encounter | [facility] | MD [address] | of lower lobe of | | | | ONCOLOGY CLINIC [address] | [address] [place] | right lung (HCC) | | | | [address] [place] | [place] [address] | | | | | [place] [address] | [phone] | | | | | [phone] | | | +--------+ + + + [...] from the original. Hem-Onc Progress Note [facility] Pt. Name/Age/: Olena Rider 58 y.o. 1960 Med. Record Number: [id number] Date of admission: 08/29/2019 Assessment and plan: [...] his tologic grade pT1c pN0(sn) ER+(99%, strong), IA+(60%, strong), Her2 non-ampl ified (FISH ratio 1.06) [...] signed by: Milton Salazar MD, 08/29/2019 15:46 [facility] TIME SPENT 30 MIN. > 50% AT BEDSIDE, WITH FAMILY/PATIENT IN CARE AND RFID ANALYST ON UNIT AND CO ORDINATION OF CARE Portions of this chart may have been created with [employer] voice recognition software. Occasi onal wrong-word or sound-alike substitutions may have occurred due to the inherent cervantes itations of voice recognition software. Please read the chart carefully and recognize, using context, where these substitutions have occurred. reMarlene randle RN - 08/29/2019 3:07 PM PDTAMY Morales DoubleUp Constitutional: Energy decreased to fair, reports poor [...] [address] | | | | | | [place], [place] | | | | | | [id number] | | | | | | | [...]
--- OUTSIDE RECORDS SUMMARY | ~2020-07-17 | XMS | Encounter Summary ---
Demographics + + + | Address | [address] | | | [place] [address] | + + + | Home Phone [...] + + + | Author | [facility] | | | and [place] | + + + | Organization | [facility] | | | [...] Team Providers + +------+ + | Care Geriatrician Name | Role | Phone | + +------+ + | Zuleyka Martínez | PCP | | + +------+ + Reason for Visit +--------+--------+ + | Reason | Onset | Comments | | | Date | | +--------+--------+ + | Other | 02/15/ | schedule surgery | | | 2020 | | +--------+--------+ + Encounter Details +--------+ + + + + | Date | Type | Department | Care Team | Description | +--------+ + + + + | 02/15/ | Telephone | [facility] | Grisel Villa, | Other (schedule | | 2019 | | [facility] | RN | surgery) | | | | [facility] | | | | | | [address] | | | | | | [place] | | | | | | [address] | | | | | | [phone] | | | +--------+ + + + [...] this encounter Miscellaneous Notes Telephone Encounter - Grisel Villa RN - 02/16/2020 11:12 AM PDTSpoke with patient. She would like to proceed with surgery on 02/27/20. Scheduled pre-op visit via telephone schedu led for 02/19/20. elep tj Encounter - Hyun Aguayo - 02/16/2020 10:46 AM PDTMichelle, is calling again for Other (schedule surgery) and would like a call back. Additional Call Details: Calling again to discuss scheduling surgery. Please call home num hermelindo elephone Peyton r - Grisel Villa RN - 02/16/2020 9:52 AM PDTSpoke with patient to schedule surgery on or the following week on 02/27/20. Patient stated she needs to speak with her boss to determine when she can have surgery. Patient stated she will call the clinic back. Pre-op visit can be completed over the phone, will need to scheduled pre-op on RN schedule. Patient will need coag ordered for the day of surgery. documented in this encounter Plan of [...]
--- OUTSIDE RECORDS SUMMARY | ~2020-07-17 | XMS | Encounter Summary ---
Demographics + + + | Address | [address] | | | [place] [address] | + + + | Home Phone [...] Team Providers + +------+ + | Care Machine Etcher Name | Role | Phone | + [...] | | | | Pulmonary | Susie M, | [address] | | | | | nodule | MD [address] | [place], | | | | | Procedures | [address] | [place] [address] | | | | | CT Guided | [place], | Phone: | | | | | Biopsy Lung | [place] [address] | [phone] | | | | | Or | Phone: | Fax: | | | | | Mediastinum | [phone] | [phone] | | | | | | Fax: | | | | | | | [phone] | | +--------+--------+ + + + + [...] | +--------+ + + + + | 11/04/ | Hospital | [facility] | Hugo Godfrey MD | Pneumothorax after | | 2017 - | Encounter | MED CTR ICU [address] | [address] | biopsy (Primary Dx); | | | | [place], | [place] | Pulmonary nodule | | 11/06/ | | [place] [address] | [address] | | | 2016 | | [phone] | [phone] | | | | | | | | | | | | Tien Angel MD | | | | | | [address] | | | | | | [place] | | | | | | [id number] | | | | | | | [...] + + + | Blood Pressure | 107/56 | 11/06/2016 7:26 AM | | | | | PST | | + + + + + | Pulse | 66 | 11/06/2016 7:26 AM | | | | | PST | | + + + + + | Temperature | 36.3 C (97.3 F) | 11/06/2016 7:26 AM | | | | | PST | | + + + + + | Respiratory Rate | 20 | 11/06/2016 7:26 AM | | | | | PST | | + + + + + | Oxygen Saturation | 98% | 11/06/2016 7:26 AM | | | | | PST | | + + + + + | Inhaled Oxygen | - | - | | | Concentration | | | | + + + + + | Weight | 90 kg (198 lb 6.6 | 11/06/2016 3:39 AM | | | | oz) | [...] might be different fro m the original. [place] HOSPITALIST DISCHARGE SUMMARY Pt. Name/Age/: Smitha [...] by: Tien Angel MD, 11/06/2016 9:36 [facility] Reference. This is NOT part of [...] this chart may have been created with hoccer voice recognition software. Occasi onal wrong-word or [...] sent through Care Everywhere.PNEUMOTHORAX (C OLLAPSED LUNG) (GERMAN)documented in this encounter Medications at Time of [...] might be diff erent from the original. [place], [place] General Surgery Team Hospital Day: 3 [...] Signed by: Del Dsouza MD, 11/06/2016 8:58 [facility] Kerwin Jasso MD - 11/06/2016 7:51 AM PSTFormatting of this note might be different from the hector jackson [place] HOSPITALIST PROGRESS NOTE Patient: Smitha Rider : 1960: Age: 56 y.o. MedRec: [id number] PCP: Zuleyka Martínez Admission date: 11/04/2016 Hospital [...] tablet 40 mg 40 mg Oral QAM AC Tien Angel MD traMADol (ULTRAM) tablet 50 [...] for input(s): IRON, TIBC, PCTSAT, FERRITIN, TSH, [id number], FOLATE in the last 168 hours. Inflammatory [...] ABG No results for input(s): PHART, PO2ART, SSI7EMS, JDS7REM, BEART, I7NTZBMK in the last 168 h ours. No results for input(s): SPECSOURCE, PHPOCB, PCO2, PO2, HCO3, TCO2, BEART, MVTF5IIU in the last 168 hours. Drug of [...] Procedure Component Value Units Date/Time Culture, MRSA [[id number]] Collected: 11/04/16 1544 Order Status: Completed Lab [...] of this study were reported by the [facility] radiologist on November 05, 2016 at [...] meycritical meysign) Tien Angel MD 11/06/2016 7:51 [facility] Reference. This is NOT part of [...] this chart may have been created with hoccer voice recognition software. Occasi onal wrong-word or sound-alike substitutions may have occurred due to the inherent cervantes itations of voice recognition software. Please read the chart carefully and recognize, using context, where these substitutions have occurred Del Montoya MD - 11/05/2016 6:31 PM PSTFormatting of this note might be different from the hector jackson [place], [place] General Surgery Team Hospital Day: 2 [...] Signed by: Del Dsouza MD, 11/05/2016 18:32 [facility] Kerwin Jasso MD - 11/05/2016 6:53 AM PSTFormatting of this note might be different from the [place] HOSPITALIST PROGRESS NOTE Patient: Smitha Rider : 1960: Age: 56 y.o. MedRec: [id number] PCP: Zulekya Martínez Admission date: 11/04/2016 Hospital day # [...] for input(s): IRON, TIBC, PCTSAT, FERRITIN, TSH, IOMIMIAJ69, FOLATE in the last 168 hours. Inflammatory [...] ABG No results for input(s): PHART, PO2ART, QPN5YBR, XHE5IBK, BEART, V1UOBHXT in the last 168 h ours. No results for input(s): SPECSOURCE, PHPOCB, PCO2, PO2, HCO3, TCO2, BEART, TZXF6JIX in the last 168 hours. Drug of [...] Procedure Component Value Units Date/Time Culture, MRSA [[id number]] Collected: 11/04/16 1544 Order Status: Sent Lab Status: In process Updated: 11/04/16 1594 Specimen Information: Respiratory from Nares Radiology results [...] hours. Dictated and Signed by: MD Analilia Figueroa tawnya signed: 11/04/2016 12:[address] Guided [...] meycritical meysign) Tien Angel MD 11/05/2016 6:53 [facility] Reference. This is NOT part of the patient's formal assessment section. In the assessment or plan section of notes the author may date some of the subsections with a number such as "23" or "" to indicate the date of [...] this chart may have been created with hoccer voice recognition software. Occasi onal wrong-word or sound-alike substitutions may have occurred due to the inherent cervantes itations of voice recognition software. Please read the chart carefully and recognize, using context, where these substitutions have occurred documented in this en counter H&P Notes Tien Angel MD - 11/04/2016 2:34 PM PSTFormatting of this note might be different fro m the original. [place] HOSPITALIST HISTORY & PHYSICAL Patient: Smitha Rider : 1960: Age: 56 y.o. MedRec: [id number] PCP: Zuleyka Martínez Admission date: 11/04/2016 Hospital day #: Physician author: Tien Angel MD Today: 11/04/2016 CHIEF COMPLAINT: Chest pain due to pneumothorax caused by right lung nodule biopsy Dr Godfrey HISTORY OF PRESENT ILLNESS: This is a 56 y.o. female with a history of thyoid cancer Was in [facility] last June with CP with CT showing lung nodules had a PET scan in June at [facility] and ultimately had thyroid surgery in [place] and radioactive iodine 131 and then had [...] Single Here with daughter Jennifer whom is MIAN Martínez is [employer] PAST MEDICAL and SURGICAL HISTORY: Past Medical [...] notations, if any, will be noted below. (carolotebar) HOME MEDICATIONS: Current Discharge Medication List CONTINUE [...] anxious Neuro Face symmetric Alert and cooperative (jaspreet meyexam) DIAGNOSTIC STUDIES: Hematology and anemia Recent Labs Lab 11/04/16 0911 WBC 12.1* HGB 14.6 HCT 43.7 PLT 270 Recent Labs Lab 11/04/16 0911 PROTIME 13.0 INR 0.96 No results for input(s): IRON, TIBC, PCTSAT, FERRITIN, TSH, QCOAJCFP83, FOLATE in the last 168 hours. Inflammatory [...] ABG No results for input(s): PHART, PO2ART, DXO9AFU, XJH3CXF, BEART, J3VXUABN in the last 168 h ours. No results for input(s): SPECSOURCE, PHPOCB, PCO2, PO2, HCO3, TCO2, BEART, WUMP9OLO in the last 168 hours. Drug of [...] hours. Dictated and Signed by: MD Analilia Figueroa tawnya signed: 11/04/2016 12:[address] Guided [...] (dot meyaddendum tdnorefesh nownorefresh) (dot meytime meycritical) [facility] Documentation I expect this patient will be hospitalized for less than 2-midnights and expect the post-ho spital plan to be discharge to home or to an adult foster home. Electronically signed by: Tien Angel MD 11/04/2016 14:34 [facility] (meyaddendum tdnorefesh nownorefresh) Portions of this chart may have been created with hoccer voice recognition software. Occasi onal wrong-word or sound-alike substitutions may have occurred due to the inherent cervantes itations of voice recognition software. Please read the chart carefully and recognize, using context, where these substitutions have occurred Hugo Mendoza MD - 0 11/04/2016 10:02 AM PSTINTERIM [...] signed by: Hugo Godfrey MD, 11/04/2016 10:02 [facility] signed by Hugo Godfrey MD at 2016 10:19 AM Susie Guerrero MD - 10/27/2016 12:00 AM PSTProv[facility]Gl[facility] Follow-up Note PATIENT: Smitha Rider MR#: [id number] :1960 DOS:10/27/2016 ICD/Diagnosis: C73 - Malignant neoplasm [...] ( ) as of 11/02/2016 11:27 Ref. Range09/22/201 6 10: 08: 08:05Thyroglobulin Latest Ref Range: [...] was reviewed with Radio logy here at [facility] and it was felt that CT [...] Tg and anti-Tg -Referral t o Dr. Cloes, endocrinology to establish usp follow-up. Thank you for allowing me to participate in the care of Smitha Rider. If you should have any questions regarding this evaluation, please do not hesitate to contact me. Susie Vargas M.D. Radiation Oncologist Department of Radiation Oncology [facility] Electronically signed by Susie Walker M.D CC: Doris Stanford M.D. This note was transcribed using hoccer speech recognition software. As a result, there ma y be unintended for medical and/or spelling errors. Every attempt is made to correct dicta tion. If there are any questions or errors please contact our office. CSN: [id number] signed by Susie Walker MD at 11/02/2016 11:55 AM PSTd ocumented in this encounter Consult Notes Del Dsouza MD - 11/04/2016 6:01 PM PST [place] [id number] CONSULTATION DEL DSOUZA MD Patient: SMITHA RIDER Admitting: HUGO GODFREY MR #: [id number] LOC: PT TYPE: Adm Date: 11/04/2016 : [...] at this time. She is in the [facility] and is here with a friend. HOME [...] 11/04/2016 18:01:37 Transcribed on 11/04/2016 18:23:36 by [facility] job# [id number] Confirmation #: [id number] cc: ZULEYKA MARTÍNEZ CRNPElectronically signed by Del [...] Assess pain level frequently and medicate per order Assess chest tube site RESTRAINT-RELATED GOALS: [...] she's ready to go home. lan of Zaki wagner - Avril Brooks RN - 11/05/2016 1:02 PM PSTProblem: Discharge Planning Goal: Patient will be discharged in a safe manner Outcome: Unchanged Discharge planning: This CM spoke with Smitha at her bedside regarding her discharge plans. She lives in a home in [place] on the main floor. There are two steps to enter the house. Smitha lives on the main level, Brigitte lives in the upstairs and [facility] Prior to hospitalization Smitha was independent in her ADL's. 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 Smitha does not own or use any DME. No DME company preference. She declines the need for for SNF and HH. Her PCP is Zuleyka Martínez and she uses [facility] pharmacy or [facility] in [place] . Her daughters will be her ride home when she is stable for discharge. No discharge needs noted. Electronically signed by: Avril Brooks RN 11/05/2016 13:02 lan of Care - Murphy Farfan Chaplain - 11/05/2016 10:25 AM PST Spiritual Care Smitha Rider is a 56 y.o. female who is admitted for Pneumothorax after biopsy [J95.8 11]. Spiritual Evaluation: Not especially gnosticist, but did appreciate grease machine worker visit. Spiritual Intervention: Active Listening, pastoral presence. Spiritual Outcomes: Appreciates Physical Medicine Specialist Visit Spiritual Goals / Follow-up: Will see the patient as requested. If there are any other spiritual care issues that arise, please contact grease machine worker. lan of Care - Ursula Marc RN [...] Marc RN at 11/05/2016 5:43 AM PSTeICU Joie - Cornel Reynoso RN - 11/04/2016 7:55 [...] Pt stated the pain was tolerable and improving.Analiliai tawnya signed by Kelley Reynoso RN at 11/04/2016 8:00 PM PSTOp Joie - Del Dsouza MD - 11/04/2016 6:05 PM PST [place] [address] [address] [facility] [id number] OPERATIVE REPORT DEL DSOUZA MD Patient: SMITHA RIDER Admitting: HUGO GODFREY MR #: [id number] LOC: PT TYPE: [facility] Date: 11/04/2016 : 1960 DATE: 11-04-16 PREOPERATIVE [...] of air was noted. The smallest available, 24-Kiswahili ch est tube was placed and attached [...] 11/04/2016 18:05:06 Transcribed on 11/04/2016 18:58:44 by [facility] job# [id number] Confirmation #: [id number] cc: ZULEYKA RICHElectrondustin signed by Del Dsouza MD at 017 [...] [place] | | | | | | [id number] | | | | | | | [...] | EXTRA LAVENDER TOP | Routin | 11/06/2016 | | [...] [address] | [place] | [phone] | | [facility] | | [address] | | | - LABORATORY | | [...] [address] | [place] | [phone] | | [facility] | | [address] | | | - LABORATORY | | [...] | 0.92 | 0.60 - 1.30 | [facility] | | | | | mg/dL | [facility] | | | | | | MEDICAL | | | | | | CENTER - | | | | | | LABORATORY | | + + + + + + | eGFR, | 64Comment: GLOMERULAR | mL/min/1.73m2 | [facility] | | | non- | FILTRATION | | [facility] | | | [place] | RATE,ESTIMATED | | MEDICAL | | | | mL/min/1.87b8Mtxm than | | CENTER - | | [...] + | [facility] | [address] | [place], [place] | [phone] | | [facility] | | [address] | | | - LABORATORY | | [...] of this study were reported by the [facility] radiologist on November | | | [...] of this study were reported by the [facility] radiologist on | | November 05, [...] + | [facility] | [address] | [place] | [phone] | | [facility] | | [address] | | | - LABORATORY | | [...] | non- | FILTRATION | | [facility] | | | [place] | RATE,ESTIMATED | | MEDICAL | | | | mL/min/1.84u0Mqsn than | | CENTER - | | [...] + | BUN/Creatin | 13.8 | | [facility] | | | ine Ratio | | [...] [address] | [place] | [phone] | | [facility] | | [address] | | | - LABORATORY | | [...] + | [facility] | [address] | [place] | [phone] | | [facility] | | [address] | | | - LABORATORY | | [...] + + | Performing | Address | City/State[facility] | Phone Number | | [...] + + | Performing | Address | City/State[facility] | Phone Number | | [...] performed through the introducer with an 18-gauge CRAZEe biopsy | | | gun, producing small [...] CT September 23 and June 02, PET/CT [place] | | 17PROCEDURE: After explaining the potential [...] rajinder was made to | | accommodate jfh07-fdbgs introducer needle, which was advanced to the margin of the | | nodulewithout difficulty utilizing CT guidance, and an intercostal PA approach. | | Fivecore biopsies of the nodule were performed through the introducer with sg99-unbeq | | Biopince biopsy gun, producing small [...] ST. | [address] | [place] | [phone] | | [facility] | | [address] | | | - LABORATORY | | | | + + + + + Minh LUCIA (11/04/2016 9:11 AM PST) + + + + + + | Component | Value | Ref Range | Performed | Pathologist | | | | | At | Signature | + + + + + + | Prothrombin | 13.0 | 11.3 - 13.9 | [facility] | | | Time | | seconds | [facility] | | | | [...] + | [address] | [address] | [place] | [phone] | | [facility] | | [address] | | | - LABORATORY | | [...] [address] | [place] | [phone] | | [facility] | | [address] | | | - LABORATORY | | [...] 11/05/16. As part | | | of [facility]' Quality Improvement Program, this case was | | | reviewed by another member of our pathology staff. | | | CLR:J:[facility]:C1NR GROSS DESCRIPTION: The specimen is received in | | | formalin in a container labeled "Smitha Rider, Alfonso lung". Received are | | | four yho-wkcmo-wfk needle core fragments ranging in length from | | | 0.3-0.6 cm by average diameter of 0.15 cm, entirely submitted in | | | cassette (A1). CLR:[facility] MICROSCOPIC EXAMINATION: Histologic | | [...] | and its performance characteristics determined by [facility]. | | | It has not been cleared or approved by the U.S. Food and Drug | | | Administration. The FDA has determined that such clearance or | | | approval is not necessary. This test is used for clinical purposes. | | | It should not be regarded as investigational or for research. | | | [facility] is certified under the Clinical Laboratory | | | Improvement Amendments of 1988 (CLIA) as qualified to perform high | | | complexity clinical laboratory testing PERFORMING LABORATORY: | | | Tissue processing and slide preparation were performed by [facility] | | | [facility], [address], [place] [address] | | | (Web Site Designer: Eliezer Helm M.D.; CLIA#: [id number]). | | | Professional interpretation was performed by [facility], [address], [place] [address] (Web Site Designer: Eliezer | | | Russ Helm; CLIA#: [id number]). Review for send out and | | | technical processing was performed by [facility], [facility], [address] [place] [address] | | | [id number] (Web Site Designer: Eliezer Helm M.D.; CLIA#: | | | [id number]). REASON FOR ADDENDUM: To add request for molecular | | | testing. ADDENDUM COMMENT: At the request of Milton Salazar MD | | | archived slide(s) and block(s) for case [id number] are retrieved on | | | Smitha Rider and are reviewed by a pathologist to assess | | | adequacy for PD-L1 (Keytruda) testing. Block A1 is sent to | | | [place]. JVR:[facility] PERFORMING | | | LABORATORY: The Technical Component Processing and Analysis of this | | | test was completed at [facility], [address] [place] [address] | | | [place], [place] / [address] / [phone] / CLIA #[id number] / Medical | | | Director: Dr. Doc Chakraborty. The Professional Component of this | | | test was completed at [facility], [address] [place] [address], [address], | | | [place], [place] / [address] / [phone] / CLIA # [id number] / Medical | | | Director: Dr. Mita Salgado, (Accession / CaseNo: [id number] / | | | [id number]). A detailed copy of the report is [...] Primary Iatrogenic pneumothorax | + + | Pulmonary nodule Solitary pulmonary nodule | + + | [...] | | | + +--------+ +--------+------+------+ | ALPRAZolam (XANAX) tablet 0.5 | Given | 11/06/19 | 0.5 mg | | | | mg 0.5 mg, Oral, 3 TIMES DAILY | | 17 10:26 | | | | | PRN, Anxiety, Starting 11/04/16 | | AM PST | | | | | at 1512 | | | | | | + +--------+ +--------+------+------+ +-------+ +--------+---+---+ | Given | 11/05/19 | 0.5 mg | | | | | 17 5:05 | | | | | | PM PST | | | | +-------+ +--------+---+---+ | Given | 11/05/19 | 0.5 mg | | | | | 17 8:25 | | | | | | AM PST | | | | +-------+ +--------+---+---+ +---+---+ | | | +---+---+ + +-------+ + +---+---+ | calcium carbonate (TUMS) | Given | 11/06/19 | 1,000 mg | | | | chewable tablet 1,000 mg 1,000 | | 17 8:51 | | | | | mg, Oral, DAILY, First dose on | | AM PST | | | | | Kat[place] 11/05/16 at 0900 | | | | | | + +-------+ + +---+---+ +-------+ + +---+---+ | Given | 11/05/19 | 1,000 mg | | | | | 17 10:21 | | | | | | PM PST | | | | +-------+ + +---+---+ +---+---+ | | | +---+---+ + +-------+ +--------+---+---+ | fentaNYL (PF) injection 25 mcg | Given | 11/04/19 | 25 mcg | | | | 25 mcg, Intravenous, EVERY 10 | | 17 12:59 | | | | | MIN PRN, Pain, up to 100mcg, | | PM PST | | | | | Starting 11/04/16 at 1159, | | | | | | | Post-op/Phase II | | | | | | + +-------+ +--------+---+---+ +-------+ +--------+---+---+ | Given | 11/04/19 | 25 mcg | | | | | 17 12:46 | | | | | | PM PST | | | | +-------+ +--------+---+---+ | Given | 11/04/19 | 25 mcg | | | | | 17 12:11 | | | | | | PM PST | | | | +-------+ +--------+---+---+ +---+---+ | | | +---+---+ + +-------+ +--------+---+---+ | fentaNYL (PF) injection 50 mcg | Given | 11/05/19 | 50 mcg | | | | 50 mcg, Intravenous, EVERY 1 | | 17 3:33 | | | | | HOUR PRN, Pain, Starting Wed | | PM PST | | | | | 11/04/16 at 1512 | | | | | | + +-------+ +--------+---+---+ +-------+ +--------+---+---+ | Given | 11/05/19 | 50 mcg | | | | | 17 2:31 | | | | | | PM PST | | | | +-------+ +--------+---+---+ | Given | 11/05/19 | 50 mcg | | | | | 17 12:53 | | | | | | PM PST | | | | +-------+ +--------+---+---+ +---+---+ | | | +---+---+ + +-------+ +--------+---+---+ | fentaNYL (PF) injection 50-75 | Given | 11/05/19 | 75 mcg | | | | mcg 50-75 mcg, Intravenous, | | 17 10:15 | | | | | EVERY 30 MIN PRN, Pain, Starting | | PM PST | | | | | [place] 11/05/16 at 1715 | | | | | | + +-------+ +--------+---+---+ +-------+ +--------+---+---+ | Given | 11/05/19 | 75 mcg | | | | | 17 7:56 | | | | | | PM PST | | | | +-------+ +--------+---+---+ | Given | 11/05/19 | 75 mcg | | | | | 17 6:54 | | | | | | PM PST | | | | +-------+ +--------+---+---+ +---+---+ | | | +---+---+ + +-------+ +--------+---+---+ | fentaNYL (PF) injection PRN, | Given | 11/04/19 | 50 mcg | | | | Starting 11/04/16 at 1031 | | 17 10:43 | | | | | | | AM PST | | | | + +-------+ +--------+---+---+ +-------+ +--------+---+---+ | Given | 11/04/19 | 50 mcg | | | | | 17 10:31 | | | | | | AM PST | | | | +-------+ +--------+---+---+ +---+---+ | | | +---+---+ + +-------+ +---------+---+---+ | fentaNYL (PF) injection PRN, | Given | 11/04/19 | 100 mcg | | | | Starting [facility] 11/04/16 at 1105 | | 17 11:05 | | | | | | | AM PST | | | | + +-------+ +---------+---+---+ +---+---+ | | | +---+---+ + +-------+ +--------+---+---+ | iohexol (OMNIPAQUE 350) 350 | Given | 11/05/19 | 60 mLs | | | | mg/mL injection 60 mL 60 mL, | | 17 5:53 | | | | | Intravenous, ONCE PRN, Other, | | PM PST | | | | | Starting [facility] 11/05/16 at 1753, For | | | | | | | 1 dose, Cat Scanner | | | | | | + +-------+ +--------+---+---+ +---+---+ | | | +---+---+ + +-------+ +-------+---+---+ | ketorolac (TORADOL) injection | Given | 11/06/19 | 30 mg | | | | 30 mg 30 mg, Intravenous, EVERY | | 17 6:14 | | | | | 6 HOURS (4 times per day), First | | AM PST | | | | | dose on Wed11/04/16 at 1800, For 5 | | | | | | | days | | | | | | + +-------+ +-------+---+---+ +-------+ +-------+---+---+ | Given | 11/06/19 | 30 mg | | | | | 17 12:05 | | | | | | AM PST | | | | +-------+ +-------+---+---+ | Given | 11/05/19 | 30 mg | | | | | 17 5:17 | | | | | | PM PST | | | | +-------+ +-------+---+---+ +---+---+ | | | +---+---+ + +---------+ +--------+-------+---+ | lactated ringers (LR) bolus | New Bag | 11/05/19 | 1,000 | 125 | | | 1,000 mL 1,000 mL, Intravenous, | | 17 7:22 | mLs | mL/hr | | | Administer over 8 Hours, ONCE, | | AM PST | | | | | [place] 11/05/16 at 0700, For 1 dose | | | | | | + +---------+ +--------+-------+---+ +---+---+ | | | +---+---+ + +-------+ +---------+---+---+ | levothyroxine (SYNTHROID, | Given | 11/06/19 | 150 mcg | | | | LEVOTHROID) tablet 150 mcg 150 | | 17 6:18 | | | | | mcg, Oral, DAILY BEFORE | | AM PST | | | | | BREAKFAST, First dose on [place] | | | | | | | 11/05/16 at 0700, Give before | | | | | | | breakfast., | | | | | | + +-------+ +---------+---+---+ +-------+ +---------+---+---+ | Given | 11/05/19 | 150 mcg | | | | | 17 6:00 | | | | | | AM PST | | | | +-------+ +---------+---+---+ +---+---+ | | | +---+---+ + +-------+ +--------+---+---+ | lidocaine 1%-EPINEPHrine | Given | 11/04/19 | 40 mLs | | | | 1:100,000 injection 40 mL 40 mL, | | 17 5:00 | | | | | Infiltration, ONCE, 11/04/16 | | PM PST | | | | | at 1715, For 1 dose | | | | | | + +-------+ +--------+---+---+ +---+---+ | | | +---+---+ + +---------+ +-----+-------+---+ | magnesium sulfate 1 g in D5W | New Bag | 11/06/19 | 1 g | 100 | | | 100 ml IVPB (premix) 1 g, | | 17 9:15 | | mL/hr | | | Intravenous, Administer over 60 | | AM PST | | | | | Minutes, ONCE, 11/06/16 at | | | | | | | 0915, For 1 dose, Maximum | | | | | | | recommended infusion rate = 1 | | | | | | | gram/hour., | | | | | | + +---------+ +-----+-------+---+ +---+---+ | | | +---+---+ + +-------+ +------+---+---+ | midazolam (VERSED) 1 mg/mL | Given | 11/04/19 | 1 mg | | | | injection 1-4 mg 1-4 mg, | | 17 5:08 | | | | | Intravenous, ONCE, 11/04/16 at | | PM PST | | | | | 1800, For 1 dose, Titrated for | | | | | | | chest tube insertion. (given | | | | | | | [phone])., | | | | | | + +-------+ +------+---+---+ +-------+ +------+---+---+ | Given | 11/04/19 | 1 mg | | | | | 17 5:04 | | | | | | PM PST | | | | +-------+ +------+---+---+ | Given | 11/04/19 | 2 mg | | | | | 17 4:57 | | | | | | PM PST | | | | +-------+ +------+---+---+ +---+---+ | | | +---+---+ + +-------+ +--------+---+---+ | midazolam (VERSED) 1 mg/mL | Given | 11/04/19 | 0.5 mg | | | | injection PRN, Starting Wed | | 17 10:31 | | | | | 11/04/16 at 1031 | | AM PST | | | | + +-------+ +--------+---+---+ +---+---+ | | | +---+---+ + +-------+ +------+---+---+ | ondansetron (ZOFRAN ODT) | Given | 11/05/19 | 4 mg | | | | disintegrating tablet 4 mg 4 mg, | | 17 12:57 | | | | | Oral, EVERY 8 HOURS PRN, Nausea, | | PM PST | | | | | Starting Wed11/04/16 at 1512 | | | | | | + +-------+ +------+---+---+ +---+---+ | | | +---+---+ + +-------+ +------+---+---+ | ondansetron (ZOFRAN) injection | Given | 11/04/19 | 4 mg | | | | PRN, Starting 11/04/16 at 1031 | | 17 10:31 | | | | | | | AM PST | | | | + +-------+ +------+---+---+ +---+---+ | | | +---+---+ + +-------+ +-------+---+---+ | oxyCODONE (ROXICODONE) tablet | Given | 11/04/19 | 10 mg | | | | 5-10 mg 5-10 mg, Oral, EVERY 4 | | 17 11:52 | | | | | HOURS PRN, Pain, Starting Wed | | AM PST | | | | | 11/04/16 at 1146, Post-op/Phase II | | | | | | + +-------+ +-------+---+---+ +---+---+ | | | +---+---+ + +-------+ +-------+---+---+ | oxyCODONE (ROXICODONE) tablet | Given | 11/05/19 | 10 mg | | | | 5-10 mg 5-10 mg, Oral, EVERY 4 | | 17 12:56 | | | | | HOURS PRN, Pain, Starting Wed | | PM PST | | | | | 11/04/16 at 1622 | | | | | | + +-------+ +-------+---+---+ +-------+ +-------+---+---+ | Given | 11/05/19 | 10 mg | | | | | 17 8:25 | | | | | | AM PST | | | | +-------+ +-------+---+---+ | Given | 11/05/19 | 10 mg | | | | | 17 4:02 | | | | | | AM PST | | | | +-------+ +-------+---+---+ +---+---+ | | | +---+---+ + +-------+ +-------+---+---+ | oxyCODONE (ROXICODONE) tablet | Given | 11/06/19 | 15 mg | | | | 5-15 mg 5-15 mg, Oral, EVERY 3 | | 17 9:15 | | | | | HOURS PRN, Pain, Starting [place] | | AM PST | | | | | 11/05/16 at 1715 | | | | | | + +-------+ +-------+---+---+ +-------+ +-------+---+---+ | Given | 11/06/19 | 15 mg | | | | | 17 6:18 | | | | | | AM PST | | | | +-------+ +-------+---+---+ | Given | 11/06/19 | 15 mg | | | | | 17 12:08 | | | | | | AM PST | | | | +-------+ +-------+---+---+ +---+---+ | | | +---+---+ + +-------+ +-------+---+---+ | pantoprazole (PROTONIX) DR | Given | 11/06/19 | 40 mg | | | | tablet 40 mg 40 mg, Oral, DAILY | | 17 8:51 | | | | | BEFORE BREAKFAST, First dose on | | AM PST | | | | | 11/06/16 at 0800, Do not cut or | | | | | | | crush., | | | | | | + +-------+ +-------+---+---+ +---+---+ | | | +---+---+ + +---------+ +--------+-------+---+ | sodium chloride 0.9% (NS) bolus | New Bag | 11/05/19 | 45 mLs | 2700 | | | 45 mL 45 mL, Intravenous, | | 17 5:53 | | mL/hr | | | Administer over 1 Minutes, ONCE | | PM PST | | | | | PRN, for contrast study, Starting | | | | | | | [place] 11/05/16 at 1753, For 1 dose, | | | | | | | May infuse at a different rate | | | | | | | per protocol., Cat Scanner | | | | | | + +---------+ +--------+-------+---+ +---+---+ | | | +---+---+ + +---------+ +--------+ + + | sodium chloride 0.9% (NS) | New Bag | 11/04/19 | 1,000 | 50 mL/hr | Left Arm | | infusion at 50 mL/hr, | | 17 9:37 | mLs | | | | Intravenous, CONTINUOUS, Starting | | AM PST | | | | | 11/04/16 at 0930, OK to use | | | | | | | implantable port., Pre-op | | | | | | + +---------+ +--------+ + + +---+---+ | | | +---+---+ + +-------+ +-------+---+---+ | traMADol (ULTRAM) tablet 50 mg | Given | 11/06/19 | 50 mg | | | | 50 mg, Oral, EVERY 6 HOURS PRN, | | 17 9:15 | | | | | Pain, Starting 11/04/16 at 1512 | | AM PST | | | | + +-------+ +-------+---+---+ +-------+ +-------+---+---+ | Given | 11/05/19 | 50 mg | | | | | 17 5:06 | | | | | | PM PST | | | | +-------+ +-------+---+---+ | Given | 11/05/19 | 50 mg | | | | | 17 8:25 | | | | | | AM PST | | | | +-------+ +-------+---+---+ +---+---+ | | | +---+---+ + +-------+ +-------+---+---+ | zolpidem (AMBIEN) tablet 10 mg | Given | 11/05/19 | 10 mg | | | | 10 mg, Oral, NIGHTLY PRN, | | 17 8:47 | | | | | Insomnia, Starting 11/04/16 at | | PM PST | | | | | 1512 | | | | | | + +-------+ +-------+---+---+ +---+---+ | | | +---+---+ documented in this encounter
--- OUTSIDE RECORDS SUMMARY | ~2020-07-17 | XMS | Encounter Summary ---
Demographics + + + | Address | [address] | | | [place] [address] | + + + | Home Phone [...] Team Providers + +------+ + | Care Silvering Department Supervisor Name | Role | Phone | [...] | | [facility] [address] [place], [place] | | | | | [address] | [address] | | | | | [place] [address] | | | | | | [phone] | | | +--------+ + + + [...] MD Radiation Oncologist Department of Radiation Oncology [facility] documented in this encounter Plan of Treatment +--------+ + + + + | Date | Type | Specialty | Care Team | Description | +--------+ + + + + | 11/22/ | Appointment | Radiation Oncology | Susie Montemayor | | | 2020 | | | MD [address]az[address] | | | | | | [place] | | | | | | [address] | | | | | | | | +--------+ + + + + documented as of this encounter Visit Diagnoses + + | Diagnosis | + + | Malignant neoplasm of overlapping sites of right breast in female, estrogen receptor | | positive (HCC) | + + documented in this encounter"
--- OUTSIDE RECORDS SUMMARY | ~2020-07-17 | XMS | Encounter Summary ---
Demographics + + + | Address | [address] | | | [place] [address] | + + + | Home Phone [...] Team Providers + +------+ + | Care Onyx Chip Terrazzo Worker Name | Role | Phone | + +------+ + | Zuleyka Martínez | PCP | | + +------+ + Encounter Details +--------+ + + + + | Date | Type | Department | Care Team | Description | +--------+ + + + + | 06/17/ | Hospital | [facility] | Susie Montemayor | Encounter for | | 2019 | Encounter | MED CTR MAMMOGRAPHY | MD Jared [address] | screening mammogram | | | | [address] | [address] [place], [place] | for high-risk | | | | [place], [place] | [address] | patient | | | | [address] | | | | | | [phone] | | | +--------+ + + + [...] [place] | | | | | | [id number] | | | | | | | [...]
--- OUTSIDE RECORDS SUMMARY | ~2020-07-17 | XMS | Encounter Summary ---
Demographics + + + | Address | [address] | | | [place] [address] | + + + | Home Phone [...] Team Providers + +------+ + | Care Laborer Hoisting Name | Role | Phone | + [...] | Non-small | Susie M, | [address] | | | | | cell cancer | MD [address] | [place], | | | | | of right | [address] | [place] [address] | | | | | lung (HCC) | [place], | Phone: | | | | | Procedures | [place] [address] | [phone] | | | | | CT Chest | Phone: | Fax: | | | | | Abdomen | [phone] | [phone] | | | | | Pelvis w | Fax: | | | | | | Contrast | [phone] | | +--------+--------+ + + + + [...] | | | cell cancer | [place] [address] | [address] | | | | | of right | [address] | [address] | | | | | lung (HCC) | [place], [place] | [place], | | | | | Secondary | [address] | [place] [address] | | | | | adenocarcino | Phone: | Phone: | | | | | ma of brain | [phone] | [phone] | | | | | (HCC) | Fax: | Fax: | | | | | Thyroid | [phone] | [phone] | | | | | Procedures | | | | | | | [place] OFFICE | | | | | | [...] + + | 04/23/ | Hospital | [facility] | Susie Montemayor | Non-small cell | | 2020 | Encounter | MED CTR RADIATION | MD Jared [address] | cancer of right lung | | | | [facility]OGY CLINIC [address] | [place], [place] | (HCC) (Primary Dx); | | | | [address] | [address] | 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 pT1c pN0 ER 99%, [place] 60%, Her2 non-amplified. - [facility] genetic test panel: Variant of uncertain significance [...] 04/10/20 - follow up with Dr. Silva: Sascha testing performed on her brain pathology that [...] to participate in the care of Olena Rdier. If you should h ave any questions regarding this evaluation, please do not hesitate to contact me. Susie Montemayor M.D. Radiation Oncologist Department of Radiation Oncology [facility] Office: [phone] documented in this encounter Plan of Treatment +--------+ + + + + | Date | Type | Specialty | Care Team | Description | +--------+ + + + + | 11/22/ | Appointment | Radiation Oncology | Susie Montemayor | | | 2020 | | | MD Jared [address] | | | | | | [place], [place] | | | | | | [...] Procedure Note | + + | Christopher, [id number] - 05/28/2020 1:20 PM PDT TECHNIQUE: After [...] abnormality. Stable | | sclerotic lesion at [id number] body and probable bone island at the [...]
--- OUTSIDE RECORDS SUMMARY | ~2020-07-17 | XMS | Encounter Summary ---
Demographics + + + | Address | [address] | | | [place] [address] | + + + | Home Phone [...] Author + + + | Author | [facility] | | | and [place] | + + + | Organization | [facility] | | [...] 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, | [address] | | | | | adenocarcino | MD [address] | [place], | | | | | ma of brain | [address] | [place] | | | | | ([facility]) | [place], | [address] | | | | | Procedures | [place] [address] | Phone: | | | | | MRI Brain w | Phone: | [phone] | | | | | wo Contrast | [phone] | Fax: | | | | | KP | Fax: | [phone] | | | | | FUTURE ORDER | [phone] | | | | | | (JUNE [...] + + + + | 03/22/ | Hospital | [facility] | Fabianoang Susie | Secondary | | 2020 | Encounter | MED CTR RADIATION | MD Jared [address] | adenocarcinoma of | | | | ONCOLOGY CLINIC [address] | [place], [place] | brain (HCC) (Primary | | | | [facility] | [address] | Dx) | | | | [place] [address] | | | | | | [phone] | | | +--------+ + + + [...] + | Blood Pressure | 137/90 | 03/22/2020 3:44 PM | | | | | PDT | | + + + + + | Pulse | 93 | 03/22/2020 3:44 PM | | | | | PDT | | + + + + + | Temperature | 36.2 C (97.2 F) | 03/22/2020 3:44 PM | | | | | PDT | | + + + + + | Respiratory Rate | 16 | 03/22/2020 3:44 PM | | | | | PDT | | + + + + + | Oxygen Saturation | 100% | 03/22/2020 3:44 PM | | | | | PDT | | + + + + + | Inhaled Oxygen | - | - | | | Concentration | | | | + + + + + | Weight | 83.2 kg (183 lb 6.8 | 03/22/2020 3:44 PM | | | | oz) | PDT | | + + + + + | Height | - | - | | + + + + + | Body Mass Index | 27.48 | 02/27/2020 6:30 AM | | | [...] encounter Progress Notes Susie Montemayor MD - 03/22/2020 3:00 PM PDT Radiation Oncology: Fractionated Radiosurgery [...] Franklin Majano M.S. Pre-Treatment Assessment Today is 2 Of 3 prescribed fractions. The dose to date is 1800 cGy. The planned total dose is 2700 [...] The following imm obilization system was used: [employer] SRS mask The physicist was also available [...] of the radiation treatment, which lasted from 3:21 to 3:35. I managed the execution of the treatment and made real time adjustments in r esponse to patient motion, target movement, or equipment issues to ensure accuracy and safet y. The patient did not require medication during the treatment. Post Treatment Exam The patient was evaluated following the treatment. Vitals: 03/22/20 1544 BP: 137/90 Pulse: 93 Resp: 16 Temp: 36.2 C (97.2 F) PainSc: 4 Physician Assessment: Olena continues to tolerate treatment well. Mild ongoing headach es. Plan of Care The plan of care is to: Continue treatment as planned. Instructions: f/u for final fraction next week. Susie Montemayor M.D. Radiation Oncologist Department of Radiation Oncology [facility] Office: [phone] documented in this encounter Plan of Treatment +--------+ + + + + | Date | Type | Specialty | Care Team | Description | +--------+ + + + + | 11/22/ | Appointment | Radiation Oncology | Susie Montemayor | | | 2020 | | | MD [address] | | | | | | [address] [place], [place] | | | | | | [address] | | | | | | | [...] AM | [facility] | | HISTORY: Brain/FIRE CLAIMS ADJUSTER neoplasm, assess treatment response COMPARISON: | | [...] Procedure Note | + + | Christopher, [id number] - 06/17/2020 3:00 PM PDT EXAM: MRI BRAIN W WO CONTRAST dated 06/17/2020 | | 10:35 AMHISTORY: Brain/FIRE CLAIMS ADJUSTER neoplasm, assess treatment responseCOMPARISON: MRI 01/22/2020. | [...]
--- OUTSIDE RECORDS SUMMARY | ~2020-07-17 | XMS | Encounter Summary ---
Demographics + + + | Address | [address] | | | [place] [address] | + + + | Home Phone [...] Team Providers + +------+ + | Care Trawl Net Maker Name | Role | Phone | + [...] | | | | | Non-small | Salzaar, | [address] | | | | | cell cancer | Milton | [place], | | | | | of right | [place] | [place] [address] | | | | | lung (HCC) | [address] | Phone: | | | | | Procedures | [place] | [phone] | | | | | CT Chest w | [place] | Fax: | | | | | Contrast | [id number] | [phone] | | | | | | Phone: | | | | | | | [phone] | | | | | | | Fax: | | | | | | | [phone] | | +--------+--------+ + + + + Encounter Details +--------+ + + + + | Date | Type | Department | Care Team | Description | +--------+ + + + + | 05/31/ | Hospital | [facility] | Milton Salazar | Non-small cell | | 2017 | Encounter | [facility] | [place] [address] | cancer of right lung | | | | [facility] [address] [place] | (HCC) (Primary Dx); | | | | [address] [place] | [place] [address] | Abnormal stress ECG | | | | [place] [address] | [phone] | with treadmill; | | | | [phone] | | Malignant neoplasm | | | | | | of thyroid gland | | | | | | (HCC); Pneumothorax | | | | [...] + + + | Blood Pressure | 124/76 | 05/31/2017 9:34 AM | | | | | PDT | | + + + + + | Pulse | 96 | 05/31/2017 9:34 AM | | | | | PDT | | + + + + + | Temperature | 37.1 C (98.7 F) | 05/31/2017 9:34 AM | | | | | PDT | | + + + + + | Respiratory Rate | 16 | 05/31/2017 9:34 AM | | | | | PDT | | + + + + + | Oxygen Saturation | 99% | 05/31/2017 9:34 AM | | | | | PDT | | + + + + + | Inhaled Oxygen | - | - | | | Concentration | | | | + + + + + | Weight | 82.6 kg (182 lb 1.6 | 05/31/2017 9:34 AM | | | | oz) | PDT | | + + + + + | Height | - | - | | + + + + + | Body Mass Index | 27.69 | 11/04/2016 9:00 AM | | | [...] encounter Progress Notes Milton Salazar MD - 05/31/2017 10:29 AM PDTFormatting of this note might be diff erent from the original. Hem-Onc Progress Note [facility] Pt. Name/Age/: Olena Rider 56 y.o. 1960 Med. Record Number: [id number] Date of admission: 05/31/2017 Assessment and plan: 1. Non-small cell lung cancer, RLL, Nov, 2016 Adenocarcinoma with mucinous features pT3 (two separate foci, 1.3, 1.0 cm), pN1, M0 StageIIIA S/p VATS RLL, Dec, 2016, Dr. Luis Felipe Mon EGFR mutation negative, FISH neg: ROS, ALK rearrangement PD-L1 low expression (3%) 2. Papillary carcinoma of the thyroid S/p thyroidectomy, LN excision S/p radio-iodine abllation, Oct, 2016 Congratulations to patient for completing intended course of postsurgical adjuvant chemothe rapy. We described a timeline of recovery from side effects including fatigue, hair loss, t ypically extending over periods of several weeks after conclusion of treatment. We also described a period of about one month of craving following discontinuation of smoki ng and of encouraged patient to continue Chantix in this time. Plans for surveillance evaluation to include repeat CT scan and we will schedule this conco rdant with patient's upcoming follow-up in approximately 3 months Subjective: The patient chart and medications were reviewed in detail and the patient was seen and exam ined. Olena Rider is a 56 y.o. female returns today for posttreatment follow-up having com pleted a program of postsurgical adjuvant chemotherapy because of operable stage III lung ca ncer. Interim history noting patient continuing now full-time work in the 5 week interim since co mpleting the last cycle of combination carboplatin with pemetrexed chemotherapy. Patient st ill experiencing considerable fatigue and describes returning home and night exhausted. She is now just begun smoking cessation and has stopped all smoking for about the past 4 days. She has been using Chantix as a supplement. She is also noticed continued fall out of hair and brings with her a picture of hair that she combed yesterday. She has been in to see Dr Maximiliano Mon at [facility]. She is scheduled for repeat staging evaluation later at the end of summer. PSH: Reviewed, no changes to admission H&P. Review of Systems: Constitutional: States fatigue. Denies high fevers, shaking chills, anorexia, nausea, vomi ting, weight loss, or night sweats. Appetite without changes. Nausea continues, states "I w onder if its from the potassium". States hot flashes. Ear, Nose, Mouth, Throat: Denies odynophagia, dysphagia, or tinnitus. Cardiovascular: Denies shortness of breath, dyspnea on exertion, chest pain, palpitations o r orthopnea. Respiratory: Denies hemoptysis, or sputum production. Unchanged dry cough. Gastrointestinal: Denies abdominal pain, constipation, diarrhea, melena, or bright red bloo d per rectum. Genitourinary: Denies hematuria or dysuria. Musculoskeletal:Bilateral knee pain-they always hurt. Neurologic: Denies headache, visual changes, or numbness/tingling of the extremities. Blurr ed vision, states she is going to wit a while then go get new glasses. Endocrine: Denies peripheral edema or heat/cold intolerance. Hematologic: Denies spontaneous bruising or bleeding. Integumentary: Denies rash, wounds or other skin concerns. Pain:Pain in both knees rates the pain roxane 4/10, this is with out any pain medication. If i t gets high she will take a tramadol at night to help her to sleep. Pain gets as high as a 9/10. Tolerable pain level: 3>/10, on a scale from 0-10. Review of systems as above otherwise negative Scheduled Medications: Continuous Infusions: PRN Meds:. Allergy: Allergies Allergen Reactions Morphine And Related Other (See Comments) "unknown reaction - trouble breathing after hysterectomy" Discharge Medications Unchanged Medications Details ALPRAZolam 0.5 mg tablet Take 0.5 mg by mouth 3 times daily as needed for Anxiety. aka: XANAX calcium carbonate 500 mg chewable tablet Take 2 tablets by mouth Daily. aka: TUMS levothyroxine 150 mcg tablet Take 150 mcg by mouth every morning (before breakfast). aka: SYNTHROID, LEVOTHROID LORazepam 1 mg tablet Take 1 tablet by mouth every 6 hours as needed (Nausea/Vomiting). aka: ATIVAN ondansetron 4 mg disintegrating tablet Take 4 mg by mouth every 8 hours as needed for Nausea. aka: ZOFRAN ODT traMADol 50 mg tablet Take 50 mg by mouth every 6 hours as needed for Pain. aka: RADHAM UNABLE TO FIND CBD oil 15 mg UNABLE TO FIND Protandim Supplement - given to her by Dr. Mon varenicline 0.5 mg tablet Take 1 tablet by mouth 2 times daily. To help stop smoking aka: CHANTIX zolpidem 10 mg tablet Take 10 mg by mouth nightly as needed for Sleep. aka: JESSICA Objectives: Temp: 37.1 C (98.7 F) BP: 124/76 Pulse: 96 Resp: 16 SpO2: 99 % on Min/Max Temp past 24 hours:Temp Av.1 C (98.7 F) Min: 37.1 C (98.7 F) Max: 3 7.1 C (98.7 F) No intake or output data in the 24 hours ending 05/31/17 1029 Wt. Admission: Weight: 82.6 kg (182 lb 1.6 oz) Wt. Current: Weight: 82.6 kg (182 lb 1.6 oz) Physical Exam: Exam: General: The patient is alert and oriented. No acute distress. Psychiatric: Normal mood and affect. Diagnostic studies: Available data and images were reviewed personally. See reports. Significant results and findings are addressed here or in the Assessment and Plan. Recent Labs Lab 05/31/17 0912 WBC 10.5 HGB 11.8 HCT 34.2 PLT 255 Recent Labs Lab 05/31/17 0912 NA 137 K 3.7 CL 107 CO2 25 BUN 8 CREA 0.81 GLU 114* MG 1.6* CALCIUM 9.1 BILITOT 0.4 AST 23 ALT 21 ALKPHOS 66 ALBUMIN 3.9 Electronically signed by: Milton Salazar, 05/31/2017 10:29 [facility] TIME SPENT 20 MIN. 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 Occasi onal wrong-word or sound-alike substitutions may have occurred due to the inherent cervantes itations of voice recognition software. Please read the chart carefully and recognize, using context, where these substitutions have occurred. Amanda Wagner [facility] - 05/31/2017 9:37 AM PDTREVIEW O F SYSTEMS Constitutional: States fatigue. Denies high fevers, shaking chills, anorexia, nausea, vomi ting, weight loss, or night sweats. Appetite without changes. Nausea continues, states "I w onder if its from the potassium". States hot flashes. Ear, Nose, Mouth, Throat: Denies odynophagia, dysphagia, or tinnitus. Cardiovascular: Denies shortness of breath, dyspnea on exertion, chest pain, palpitations o r orthopnea. Respiratory: Denies hemoptysis, or sputum production. Unchanged dry cough. Gastrointestinal: Denies abdominal pain, constipation, diarrhea, melena, or bright red bloo d per rectum. Genitourinary: Denies hematuria or dysuria. Musculoskeletal:Bilateral knee pain-they always hurt. Neurologic: Denies headache, visual changes, or numbness/tingling of the extremities. Blurr ed vision, states she is going to wit a while then go get new glasses. Endocrine: Denies peripheral edema or heat/cold intolerance. Hematologic: Denies spontaneous bruising or bleeding. Integumentary: Denies rash, wounds or other skin concerns. Pain:Pain in both knees rates the pain roxane 4/10, this is with out any pain medication. If i t gets high she will take a tramadol at night to help her to sleep. Pain gets as high as a 9/10. Tolerable pain level: 3>/10, on a scale from 0-10. Note: Pt is here for 1 month follow up and labs My chart: documented in this encounter Plan of Treatment +--------+ + + + + | Date | Type | Specialty | Care Team | Description | +--------+ + + + + | 11/22/ | Appointment | Radiation Oncology | Susie Montemayor | | | 2020 | | | M, MD [address] | | | | | | [place] | | | | | | [address] | | | | | | | | +--------+ + + + + documented as of this encounter Procedures + +--------+ + + + | Procedure Name | Priori | Date/Time | Associated Diagnosis | Comments | | | ty | | | | + +--------+ + + + | CBC WITH | STAT | 05/31/2017 | Abnormal stress | Results for this | | DIFFERENTIAL | | 9:12 AM | ECG with treadmill | procedure are in the | | | | PDT | Malignant neoplasm | results section. | | | | | of thyroid gland | | | | | | (HCC) Non-small | | | | | | cell cancer of right | | | | | | lung (HCC) | | + +--------+ + + + | MAGNESIUM | STAT | 05/31/2017 | Abnormal stress | Results for this | | | | 9:12 AM | ECG with treadmill | procedure are in the | | | | PDT | Malignant neoplasm | results section. | | | | | of thyroid gland | | | | | | (HCC) Non-small | | | | | | cell cancer of right | | | | | | lung (HCC) | | + +--------+ + + + | COMPREHENSIVE | STAT | 05/31/2017 | Abnormal stress | Results for this | | METABOLIC PANEL | | 9:12 AM | ECG with treadmill | procedure are in the | | | | PDT | Malignant neoplasm | results section. | | | | | of thyroid gland | | | | | | (HCC) Non-small | | | | | | cell cancer of right | | | | | | lung (HCC) | | + +--------+ + + [...] + | Andrea White Results In - 08/17/2017 12:57 PM PDT [...] | | + +---------+ + + Magnesium (05/31/2017 9:12 AM PDT) + +---------+ + + + | Component | Value | Ref Range | Performed | Pathologist | | | | | At | Signature | + +---------+ + + + | Magnesium | 1.6 (L) | 1.8 - 2.5 mg/dL | [facility] | | | | | | [facility] | | | | | | [facility] | | | | | | [facility] - | | | | | | LABORATORY | | + +---------+ + + + + + | Specimen | + + | Blood | + + + + + + + | Performing | Address | City/State/Zipcode | Phone Number | | Organization | | | | + + + + + | [facility] | [address] | [place] | [phone] | | [facility] | | [address] | | | - LABORATORY | | | | + + + + + Comprehensive Metabolic Panel (05/31/2017 9:12 AM PDT) + + + + + [...] + + + + | Glucose | 114 (H) | 70 - 109 mg/dL | [facility] | | | | | [facility] | | | | | | MEDICAL | | | | | | CENTER - | | | | | | LABORATORY | | + + + + + + | BUN | 8 | 7 - 18 mg/dL | [facility] | | | | | | [facility] | | | | | | [facility] | | | | | | CENTER - | | | | | | LABORATORY | | + + + + + + | Creatinine | 0.81 | 0.60 - 1.30 | [facility] | | | | | mg/dL | [facility] | | | | | | MEDICAL | | | | | | CENTER - | | | | | | LABORATORY | | + + + + + + | eGFR, | >60Comment: GLOMERULAR | >=60 | [facility] | | | non- | FILTRATION | mL/min/1.73m2 | [facility] | | | [place] | RATE,ESTIMATED | | MEDICAL | | | | mL/min/1.90k5Mdir than | | CENTER - | | [...] | | | | | mg/dL | [facility] | | | | | | MEDICAL | | | | | | CENTER - | | | | | | LABORATORY | | + + + + + + | Albumin | 3.9 | 3.2 - 5.0 g/dL | [facility] [...] + + + + | Total | 7.0 | 6.0 - 7.8 g/dL | [facility] | | | Protein | | | [facility] | | | | | | MEDICAL | | | | | | CENTER - | | | | | | LABORATORY | | + + + + + + | AST | 23 | 10 - 42 U/L | [facility] | | | | | | [facility] | | | | | | MEDICAL | | | | | | CENTER - | | | | | | LABORATORY | | + + + + + + | ALT | 21 | 6 - 45 U/L | [facility] | | | | | | [facility] | | | | | | MEDICAL | | | | | | CENTER - | | | | | | LABORATORY | | + + + + + + | Alkaline | 66 | 40 - 110 U/L | [facility] [...] + + + + | BUN/Creatin | 9.9 | | [facility] | | | ine [...] + | [facility] | [address] | [place] | [phone] | | [facility] | | [address] | | | - LABORATORY | | | | + + + + + CBC with Differential (05/31/2017 9:12 AM PDT) + + + + + + | Component | Value | Ref Range | Performed | Pathologist | | | | | At | Signature | + + + + + + | White Blood | 10.5 | 4.0 - 11.0 K/uL | [facility] | | | Cells | | | [facility] | | | | | [facility] | | | | | | CENTER - | | | | | | LABORATORY | | + + + + + + | Red Blood | 3.50 (L) | 3.70 - 5.20 | [facility] | | | Cells | | M/uL | [facility] | | | | | | MEDICAL | | | | | | CENTER - | | | | | | LABORATORY | | + + + + + + | Hemoglobin | 11.8 | 11.5 - 16.0 | [facility] | | | | | g/dL | [facility] | | | | | | MEDICAL | | | | | | CENTER - | | | | | | LABORATORY | | + + + + + + | Hematocrit | 34.2 | 34.0 - 47.0 % | [facility] | | | | | | [facility] | | | | | | [facility] | | | | | | [facility] - | | | | | | LABORATORY | | + + + + + + | MCV | 97.7 | 83.0 - 101.0 fL | [facility] | | | | | | [facility] | | | | | | [facility]ICAL | | | | | | CENTER - | | | | | | LABORATORY | | + + + + + + | MCH | 33.7 | 28.0 - 35.0 pg | [facility] | | | | | | [facility] | | | | | | MEDICAL | | | | | | CENTER - | | | | | | LABORATORY | | + + + + + + | MCHC | 34.5 | 32.0 - 36.0 | [facility] | | | | | g/dL | [facility] | | | | | | MEDICAL | | | | | | CENTER - | | | | | | LABORATORY | | + + + + + + | RDW-CV | 16.4 (H) | <15.0 % | [facility] | | | | | | [facility] | | | | | | [facility]ICAL | | | | | | CENTER - | | | | | | LABORATORY | | + + + + + + | Platelet | 255 | 140 - 440 K/uL | [facility] [...] + + + + | % | 62.8 | 45.0 - 82.0 % | [facility] | | | Neutrophils | | | [facility] | | | | | | MEDICAL | | | | | | CENTER - | | | | | | LABORATORY | | + + + + + + | % | 26.8 | 20.0 - 45.0 % | [facility] | | | Lymphocytes | | | [facility] | | | | | | MEDICAL | | | | | | CENTER - | | | | | | LABORATORY | | + + + + + + | % Monocytes | 7.7 | 4.0 - 12.0 % | [facility] [...] + + + + | Absolute | 6.60 | 1.80 - 8.50 | [facility] | | | Neutrophils | | K/uL | [facility] | | | | | | MEDICAL | | | | | | CENTER - | | | | | | LABORATORY | | + + + + + + | Absolute | 2.80 | 0.60 - 3.20 | [facility] | [...] ST. | [address] | [place] | [phone] | | [facility] | | [address] | | | - LABORATORY | | [...] of thyroid gland | + + | Pneumothorax after biopsy Iatrogenic pneumothorax | + + documented in this encounter
--- OUTSIDE RECORDS SUMMARY | ~2020-07-17 | XMS | Clinical Summary ---
Demographics + + + | Address | [address] | | | [place] [address] | + + + | Home Phone [...] Team Providers + +------+ + | Care Ophthalmology Technician Name | Role | Phone | + +------+ + | Zuleyka Martínez | PCP | | + +------+ + Allergies + + + + + + | Active Allergy | Reactions | Severity | Noted | Comments | | | | | Date | | + + + + + + | Adhesive & Tape | Rash | Low | 02/23/20 | Skin breakdown | | | | | 20 | | + + + + + + | Nickel | Rash | Low | 02/23/20 | Skin breakdown | | | | | 20 | | + + + + + + | Morphine | Anaphylaxis, Other | High | 05/24/20 | Patient states she | | | (See Comments) | | 19 | has had no issues | | | | | | with Dilaudid or | | | | | | oxycodone. | + + + + + + | Morphine And Related | Other (See Comments) | Low | 06/01/20 | "unknown reaction | | | | | 16 | - trouble breathing | | | | | | after hysterectomy" | + + + + + + Medications + + + +---------+------+------+-------+ | Medication | Sig | Dispensed | Refills | Star | End | Statu | | | | | | t | Date | s | | | | | | Date | | | + + + +---------+------+------+-------+ | zolpidem (AMBIEN) | Take 10 mg by mouth | | 0 | | | Activ | | 10 mg tablet | nightly. | | | | | e | + + + +---------+------+------+-------+ | traMADol (ULTRAM) | Take 50-100 mg by | | 0 | | | Activ | | 50 mg tablet | mouth 4 times daily | | | | | e | | | as needed for Pain. | | | | | | + + + +---------+------+------+-------+ | ALPRAZolam (XANAX) | Take 0.125 mg by | | 0 | | | Activ | | 0.25 mg tablet | mouth 3 times daily | | | | | e | | | as needed. For | | | | | | | | severe anxiety | | | | | | + + + +---------+------+------+-------+ | ondansetron | Take 4 mg by mouth | | 0 | | | Activ | | (ZOFRAN ODT) 4 mg | every 8 hours as | | | | | e | | disintegrating | needed for Nausea. | | | | | | | tablet | | | | | | | + + + +---------+------+------+-------+ | Multiple | Take 1 tablet by | | 0 | | | Activ | | Vitamins-Minerals | mouth Daily. | | | | | e | | (MULTIVITAMIN ADULT) | | | | | | | | TABS | | | | | | | + + + +---------+------+------+-------+ | omeprazole | Take 20 mg by mouth | | 0 | | | Activ | | (PRILOSEC) 20 mg | every morning | | | | | e | | capsule | (before breakfast). | | | | | | + + + +---------+------+------+-------+ | exemestane | Take 1 tablet by | 90 | 3 | 02/0 | | Activ | | (AROMASIN) 25 MG | mouth Daily. | tablet | | 5/20 | | e | | tablet | | | | 20 | | | + + + +---------+------+------+-------+ | Calcium 500 MG | Take 500 mg by mouth | | 0 | | | Activ | | TABS | Daily. | | | | | e | + + + +---------+------+------+-------+ | acetaminophen | Take 1,000 mg by | | 0 | | | Activ | | (TYLENOL) 500 mg | mouth every 6 hours | | | | | e | | tablet | as needed for Pain. | | | | | | + + + +---------+------+------+-------+ | DULoxetine | Take 30 mg by mouth | | 0 | | | Activ | | (CYMBALTA) [address] | 2 times daily. | | | | | e | | capsule | | | | | | | + + + +---------+------+------+-------+ | levothyroxine | Take 125 mcg by | | 0 | | | Activ | | (SYNTHROID) 125 mcg | mouth every morning | | | | | e | | tablet | (before breakfast). | | | | | | + + + +---------+------+------+-------+ | ibuprofen (ADVIL, | Take 200 mg by mouth | | 0 | | | Activ | | MOTRIN) 200 mg | every 6 hours as | | | | | e | | tablet | needed for Pain. | | | | | | + + + +---------+------+------+-------+ | cyclobenzaprine | Take 10 mg by mouth | | 0 | | | Activ | | (FLEXERIL) 10 mg | 3 times daily as | | | | | e | | tablet | needed for Muscle | | | | | | | | spasms. | | | | | | + + + +---------+------+------+-------+ | oxyCODONE | Take 1 tablet by | 90 | 0 | 09/1 | | Activ | | (ROXICODONE) 5 mg | mouth every 6 hours | tablet | | 5/20 | | e | | tablet | as needed For pain. | | | 20 | | | + + + +---------+------+------+-------+ | gabapentin | 1 tab at bed time | 90 | 2 | 09/1 | | Activ | | (NEURONTIN) 300 mg | for 1 day, then 1 | capsule | | 5/20 | | e | | capsule | tab twice a day for | | | 20 | | | | | 1 day then 1 tab | | | | | | | | three times a day.. | | | | | | + + + +---------+------+------+-------+ | dexamethasone | Take 2 tablets (4 mg | 30 | 0 | 06/2 | 07/02 | Disco | | (DECADRON) 2 MG | total) by mouth 2 | tablet | | 3/20 | 5/20 | ntinu | | tablet | times daily (with | | | 20 | 20 | ed | | | breakfast & dinner) | | | | | (Ther | | | For 3 days, then | | | | | apy | | | decrease by 2 mg | | | | | compl | | | every 3 days, then | | | | | eted) | | | stop. | | | | | | + + + +---------+------+------+-------+ | oxyCODONE | Take 5 mg by mouth | | 0 | 09/0 | 07/02 | Disco | | (ROXICODONE) 5 mg | as needed For pain. | | | 9/20 | 5/20 | ntinu | | tablet | | | | 20 | 20 | ed | | | | | | | | (Reor | | | | | | | | yola | | | | | | | | (no | | | | | | | | Cance | | | | | | | | l Rx | | | | | | | | msg)) | + + + +---------+------+------+-------+ Active Problems + + + | Problem | Noted Date | + + + | Malignant neoplasm of overlapping sites of right breast in | 07/04/2020 | | female, estrogen receptor positive | | + + + | Secondary adenocarcinoma of brain | 07/04/2020 | + + + | Intracranial space-occupying lesion | 01/05/2020 | + + + | Periorbital cellulitis of left eye | 01/04/2020 | + + + | Blepharitis of eyelid of left eye | 01/04/2020 | + + + | Contusion of hip | 05/24/2019 | + + + | Diverticular disease of colon | 12/04/2018 | + + + | Adenoma of left adrenal gland | 11/08/2018 | + + + | Postoperative hypothyroidism | 11/08/2018 | + + + | Dysphagia | 10/06/2018 | + + + | Non-small cell cancer of right lung | 01/26/2017 | + + + + + | Cancer Staging: Pathologic stage from 01/26/2017: Stage IIIA | | (T3(1), N1, cM0) - Signed by Milton Salazar MD on | | 01/26/2017 | + + + + + | Papillary thyroid carcinoma | 09/02/2016 | + + + | Abnormal stress ECG with treadmill | 06/01/2016 | + + + | Hx of total hysterectomy | 04/01/2009 | + + + + + | Overview: Overview: | | Age 34, has left ovary | + + + + + | Vitamin D deficiency | 11/06/2008 | + + + + + | Overview: Overview: | | VITD25 30 01/24/09 | | VITD25 30 01/24/09 | + + + + + | Family history of breast cancer | 11/29/2006 | + + + + + | Overview: Overview: | | Mother age 54 | | Pat. Aunt 50's | + + + + + | Encounter for therapeutic drug level monitoring | 12/01/2005 | + + + + + | Overview: Overview: green 11/06/05 oxycodone/apap | | #30/28d from Vivienne Kilpatrick [facility] internal audit | | processes necessitated this change (from V58.83D to V58.83M) on | | 11-28-2009 and with the approval of Dr. Kyle Lopez, the regional | | physician mason tender restoration labor.02/09/10 Percocet 325 #30/28d r/t leg pain | | TStewart | + + + + + | Posttraumatic stress disorder | 11/27/2005 | + + + + + | Overview: Overview: | | [place], bdc 12 | + + + + + | Chronic nonmalignant pain | 11/06/2005 | + + + | Tobacco user | 01/11/2003 | + + + | Insomnia | | + + + Resolved Problems + + + + | Problem | Noted | Resolved | | | Date | Date | + + + + | Pneumothorax after biopsy | 11/04/19 | | | | 17 | 0 | + + + + | Precordial pain | 06/01/20 | | | | 16 | 0 | + + + + Encounters +--------+ + + + + | Date | Type | Specialty | Care Team | Description | +--------+ + + + + | 07/16/ | Hospital | Radiation Oncology | Susie Montemayor | Non-small cell | | 2020 | Encounter | | MD Jared | cancer of right lung | | | | | | (HCC) (Primary Dx); | | | | | | Secondary | | | | | | adenocarcinoma of | | | | | | brain (HCC); | | | | | | Radiculopathy | | | | | | affecting upper | | | | | | extremity | +--------+ + + + + | 06/18/ | Orders Only | Radiation Oncology | Susie Montemayor | Secondary | | 2020 | | | MD Jared | adenocarcinoma of | | | | | | brain (HCC) (Primary | | | | | | Dx) | +--------+ + + + + | 06/17/ | Hospital | Radiology | Susie Montemayor | Encounter for | | 2019 | Encounter | | MD Jared | screening mammogram | | | | | | for high-risk | | | | | | patient | +--------+ + + + + | 06/17/ | Hospital | Radiology | Susie Montemayor | Secondary | | 2019 | Encounter | | MD Jared | adenocarcinoma of | | | | | | brain (HCC) | +--------+ + + + + | 05/27/ | Hospital | Radiology | Susie Montemayor | Non-small cell | | 2019 | Encounter | | MD Jared | cancer of right lung | | | | | | (HCC) | +--------+ + + + + | 04/23/ | Hospital | Radiation Oncology | Susie Montemayor | Non-small cell | | 2020 | Encounter | | MD Jared | cancer of right lung | | | | | | (HCC) (Primary Dx); | | | | | | Secondary | | | | | | adenocarcinoma of | | | | | | brain (HCC) | +--------+ + + + + from Last 3 Months Immunizations + + + + | Name | Administration Dates | Next Due | + + + + | INFLUENZA TRIV | 09/26/2019, 09/21/2017, 09/09/2010 | | | W/PRES(PED/ADOL/ADUL | | | | T),MULTIDOSE | | | + + + + | INFLUENZA, | 09/21/2017, 09/09/2010, 09/02/2009, | | | UNSPECIFIED | 08/05/2009 | | | FORMULATION | | | + + + + | MMR, 2 DOSE | 06/10/1995 | | | (PED/ADULT) | | | + + + + | PPD Test | 03/07/2012, 03/03/2011 | | + + + + | TDAP, (ADOL/ADULT) | 09/12/2015, 08/01/2008, 11/29/2006 | | + + + + Family History + + +------+ + | Medical History | Relation | Name | Comments | + + +------+ + | Breast cancer | Mother | | | + + +------+ + | Cancer | Mother | | Breast dx at age 53 | + + +------+ + | Cancer | Paternal | | breast cancer dx in her 40's | | | Aunt | | | + + +------+ + | Breast cancer | Sister | | | + + +------+ + | Cancer | Sister | | Breast dx at age 54 | + + +------+ + | Malig hypertherm | Neg Hx | | | + + +------+ + + +------+--------+ + | Relation | Name | Status | Comments | + +------+--------+ + | Mother | | | | + +------+--------+ + | Paternal Aunt | | | | + +------+--------+ + | Sister | | | | + +------+--------+ + Social History + + + +--------+ [...] on file | | + + + Last Filed Vital Signs + + + [...] | | + + + + + Plan of Treatment +--------+ + + + + | Date | Type | Specialty | Care Team | Description | +--------+ + + + + | 11/22/ | Appointment | Radiation Oncology | Susie Montemayor | | | 2020 | | | MD Jared [address] | | | | | | [place], [place] | | | | | | [address] | | | | | | | | +--------+ + + + + + + + + + | Health Maintenance | Due Date | Last | Comments | | | | Done | | + + + + + | Hepatitis C | | | | | Screening | 2 | | | + + + + + | Vaccine: | | | | | Pneumococcal 19-64 | 8 | | | | (1 of 3 - PCV13) | | | | + + + + + | Vaccine: Zoster (1 | | | | | of 2) | 2 | | | + + + + + | Vaccine: Influenza | | 09/26/20 | | | (#1) | 0 | 19, | | | | | 09/21/20 | | | | | 17, | | | | | 09/21/20 | | | | | 17, | | | | | Addition | | | | | al | | | | | history | | | | | exists | | + + + + + | Med Mgmt: TSH | | 01/04/20 | | | | 1 | 20, | | | | | 12/09/19 | | | | | 18, | | | | | 05/03/20 | | | | | 17, | | | | | Addition | | | | | al | | | | | history | | | | | exists | | + + + + + | Med Mgmt: BUN | | 02/27/20 | | | | 1 | 20, | | | | | 01/05/20 | | | | | 20, | | | | | 01/04/20 | | | | | 20, | | | | | Addition | | | | | al | | | | | history | | | | | exists | | + + + + + | Med Mgmt: Cr | | 02/27/20 | | | | 1 | 20, | | | | | 01/05/20 | | | | | 20, | | | | | 01/04/20 | | | | | 20, | | | | | Addition | | | | | al | | | | | history | | | | | exists | | + + + + + | Med Mgmt: eGFR | | 02/27/20 | | | | 1 | 20, | | | | | 01/05/20 | | | | | 20, | | | | | 01/04/20 | | | | | 20, | | | | | Addition | | | | | al | | | | | history | | | | | exists | | + + + + + | Medication | | 02/27/20 | | | Management | 1 | 20 | | + + + + + | Breast Cancer | | 06/17/20 | | | Screening | 2 | 20, | | | | | 05/25/20 | | | | | 19, | | | | | 08/20/20 | | | | | 15, | | | | | Addition | | | | | al | | | | | history | | | | | exists | | + + + + + | Vaccine: | | 09/12/20 | | | Dtap/Tdap/Td (6 - | 5 | 15, | | | Td) | | 03/07/20 | | | | | 12, | | | | | 03/03/20 | | | | | 11, | | | | | Addition | | | | | al | | | | | history | | | | | exists | | + + + + + Implants + +-------+------+ +--------+--------+--------+ | Implanted | Type | Area | Manufacture | Device | Shelf | Model | | | | | r | | Expira | / | | | | | | Identi | tion | Serial | | | | | | fier | Date | / Lot | + +-------+------+ +--------+--------+--------+ | Plate Bur Hole 18mm - | Plate | | [employer] - | | | 015-26 | | SnaImplanted: Qty: 1 on | | | MEDT | | | 2-18 | | 02/27/2020 by Lemuel Da Silva, | | | | | | /NA | | DO at [facility] | | | | | | /NA | | [facility] | | | | | | | + +-------+------+ +--------+--------+--------+ | Screw S/Tap 1.6x4.0 - | Screw | | [employer] - | | | [id number] | | SnaImplanted: Qty: 3 on | | | MEDT | | | 0 /NA | | 02/27/2020 by Lemuel Da Silva, | | | | | | /NA | | DO at [facility] | | | | | | | | [facility] | | | | | | | + +-------+------+ +--------+--------+--------+ Procedures + +--------+ + + + | [...] section. | + +--------+ + + + from Last 3 Months Results ADAM Tomosynthesis Screening Bilateral (06/17/2020 1:42 [...] | | | + +---------+ + + MRI Brain w wo Contrast (06/17/2020 11:25 [...] AM | [facility] | | HISTORY: Brain/SCREW MACHINE TENDER neoplasm, assess treatment response COMPARISON: | | [...] | Procedure Note | + + | Chrisotpher, [id number] - 06/17/2020 3:00 PM PDT EXAM: MRI BRAIN W WO CONTRAST dated 06/17/2020 | | 10:35 AMHISTORY: Brain/SCREW MACHINE TENDER neoplasm, assess treatment responseCOMPARISON: MRI 01/22/2020. | [...] | | + +---------+ + + CT Chest Abdomen Pelvis w Contrast (05/27/2020 [...] Procedure Note | + + | Christopher, [id number] - 05/28/2020 1:20 PM PDT TECHNIQUE: After [...] abnormality. Stable | | sclerotic lesion at [id number] body and probable bone island at the [...] | | | + +---------+ + + from Last 3 Months Insurance + +--------+ +--------+ +---------+--------+ | Payer | Benefi | Subscriber | Effect | Phone | Address | Type | | | t Plan | ID | rajan | | | | | | / | | Dates | | | | | | Group | | | | | | + +--------+ +--------+ +---------+--------+ | [employer] | FIRST | [id number] | | [phone] | | PPO | | ADMIN | CHOICE | | 010-Pr | 2 | | | | | | | esent | | | | | | HEALTH | | | | | | | | ADMIN | | | | | | | | FST | | | | | | | | [place] | | | | | | + +--------+ +--------+ +---------+--------+ | [employer] | MODA | [id number] | | [phone] | | Medica | | MEDICAID HMO | HEALTH | | 020-Pr | 1 | | id | | | MDCD | | esent | | | | | | [place] | | | | | | + +--------+ +--------+ +---------+--------+ + +--------+ +--------+ + + | Guarantor Name | Accoun | Relation to | Date | Phone | Billing Address | | | t Type | Patient | of | | | | | | | | | | + +--------+ +--------+ + + | Olena Rider | Person | Self [birth year] | [address] | | | al/Fam | | 1960 | [phone] | [place], [place] | | | ze | | | 9 (Home) | [address] | + +--------+ +--------+ + + | Olena Rider | Person | Self [birth year] | [address] | | | al/Fam | | 2 | [phone] | [place], [place] | | | ze | | | 9 (Home) | [address] | + +--------+ +--------+ + + | Olena Rider | Person | Self | [birth year] | [address] | | | al/Fam | | 1960 | [phone] | [place], [place] | | | ez | | | 9 (Home) | [address] | + +--------+ +--------+ + + Advance Directives + + + + + | Type | Date Recorded | Patient | Explanation | | | | Recovery Collector | | + + + + + | Power of | | | | | Men'S Leather Dress Belt Maker | | | | + + + + + | Advance | 02/21/2020 11:14 | | | | Directive | AM | | | + + + + + + + + + + | Code Status | Date | Date | Comments | | | Activated | Inactivated | | + + + + + | Full Code | 02/27/2020 | 02/28/2020 | | | | 11:16 AM | 11:13 AM | | + + + + + + + + +---+ | | | | | + + + +---+ | Full Code | 01/04/2020 | 01/06/2020 | | | | 2:03 PM | 12:48 PM | | + + + +---+ + + + +---+ | | | | | + + + +---+ | Full Code | 11/04/2016 | 11/06/2016 | | | | 3:13 PM | 1:06 PM | | + + + +---+ + + + +---+ | | | | | + + + +---+ | Full Code | 06/01/2016 | 06/02/2016 | | | | 5:59 PM | 8:15 PM | | + + + +---+
--- OUTSIDE RECORDS SUMMARY | ~2020-07-17 | XMS | Encounter Summary ---
Demographics + + + | Address | [address] | | | [place] [address] | + + + | Home Phone [...] Team Providers + +------+ + | Care Candy Roller Name | Role | Phone | + +------+ + PCP | Unavailable | + +------+ + Encounter Details +--------+ + + + + | Date | Type | Department | Care Team | Description | +--------+ + + + + | 06/12/ | Hospital | [facility] | [facility]y | | | 2000 | Encounter | MED CTR SLEEP | MD Stefanie [address] | | | | | [place] [address] | [address] [place] | | | | | [place], [place] | [place] [address] | | | | | [address] | [phone] | | | | | [phone] | | | +--------+ + + + [...] [address] | | | | | | [place] | | | | | | [address] | | | | | | | | +--------+ + + + + documented as of this encounter Visit Diagnoses Not on filedocumented in this encounter"
--- OUTSIDE RECORDS SUMMARY | ~2020-07-17 | XMS | Encounter Summary ---
Demographics + + + | Address | [address] | | | [place] [address] | + + + | Home Phone [...] Author + + + | Author | [facility] | | | and [place] | + + + | Organization | [facility] | | [...] Team Providers + +------+ + | Care Marketing Admin Name | Role | Phone | + +------+ + | Zuleyka Martínez | PCP | | + +------+ + Encounter Details +--------+ + + + + | Date | Type | Department | Care Team | Description | +--------+ + + + + | 03/31/ | Hospital | [facility] | Milton Salazar | Sinusitis, | | 2017 | Encounter | MED CTR MEDICAL | MD Bebeto [address] | unspecified | | | | [facility] [address] [place] | chronicity, | | | | [address] [place] | [place] [address] | unspecified location | | | | [place] [address] | [phone] | (Primary Dx); | | | | [phone] | | Non-small cell | | | [...] erent from the original. Hem-Onc Progress Note [facility] Pt. Name/Age/: Olena Rider 56 y.o. 1960 Med. Record Number: [id number] Date of admission: 03/31/2017 Assessment and plan: [...] signed by: Milton Salazar, 03/31/2017 8:53 [facility] TIME SPENT 20 MIN. > 50% AT BEDSIDE, WITH FAMILY/PATIENT IN CARE AND FISH SMOKER ON UNIT AND CO ORDINATION OF CARE Portions of this chart may have been created with [employer] voice recognition software. Occasi onal wrong-word or sound-alike substitutions may have occurred due to the inherent cervantes itations of voice recognition software. Please read the chart carefully and recognize, using context, where these substitutions have occurred. Amanda Wagner, [facility] - 03/31/2017 8:31 AM PDTREVIEW O [...] [address] | | | | | | [place], [place] | | | | | | [...]
--- OUTSIDE RECORDS SUMMARY | ~2020-07-17 | XMS | Encounter Summary ---
Demographics + + + | Address | [address] | | | [place] [address] | + + + | Home Phone [...] Team Providers + +------+ + | Care Primer And Powder Canning Leader Name | Role | Phone | + +------+ + | Zuleyka Martínez | PCP | | + +------+ + Reason for Visit +---------+--------+ + | Reason | Onset | Comments | | | Date | | +---------+--------+ + | Consult | 02/11/ | request call back from Dr. Da Silva | | | 2020 | | +---------+--------+ + Encounter Details +--------+ + + + + | Date | Type | Department | Care Team | Description | +--------+ + + + + | 02/11/ | Telephone | [facility] | Lemuel Da Silva DO | Consult (request | | 2019 | | NEUROSURGERY [address] | call back from | | | | [address] | [address] | [place]) | | | | [place], [place] | [place] [address] | | | | | [address] | [phone] | | | | | [phone] | | | +--------+ + + + [...] this encounter Miscellaneous Notes Telephone Encounter - Gayla Warner - 02/12/2020 3:31 PM PDTDr. Albina, is calling [facility] (request call back from Dr. Da Silva) and would like a call back. Additional Call Details: Requesting a call back from Dr. Da Silva. [phone] If this is a symptom based call, was patient offered triage? Not Applicable If this is a symptom based call and you were unable to immediately transfer the call to a [facility] [place] [facility]' coordinator was caller made aware that if at any time she feels it is an emergency they sh ould call 911 or go to the nearest emergency room? not applicable documented in this encounter Plan of Treatment [...] WAYNE | | | | | | [id number] | | | | | | | | +--------+ + + + + documented as of this encounter Visit Diagnoses Not on filedocumented in this encounter"
--- OUTSIDE RECORDS SUMMARY | ~2020-07-17 | XMS | Encounter Summary ---
Demographics + + + | Address | [address] | | | [place] [address] | + + + | Home Phone [...] Team Providers + +------+ + | Care Acting Manager Name | Role | Phone | [...] of | MD [address] | | | | | thyroid | [address] | [place], | | | | | gland (HCC) | [place], | [place] [address] | | | | | Procedures | [place] [address] | Phone: | | | | | NE | Phone: | [phone] | | | | | INJECTION, | [phone] | Fax: | | | | | THYROTROPIN | Fax: | [phone] | | | | | ALPHA, 0. 9 | [phone] | | | | | | MG, [...] + + | 10/12/ | Hospital | [facility] | Susie Montemayor | Malignant neoplasm | | 2016 | Encounter | MED CTR CHEMO | MD Jared [address] | of thyroid gland | | | | INFUSION [address] [place] | (HCC) | | | | [place], | [address] | | | | | [place] [address] | | | | | | [phone] | | | +--------+ + + + [...] + + + | Blood Pressure | 142/80 | 10/12/2016 8:00 AM | | | | | PST | | + + + + + | Pulse | 74 | 10/12/2016 8:00 AM | | | | | PST | | + + + + + | Temperature | 36.2 C (97.2 F) | 10/12/2016 8:00 AM | | | | | PST | | + + + + + | Respiratory Rate | 16 | 10/12/2016 8:00 AM | | | | | PST | | + + + + + | Oxygen Saturation | 100% | 10/12/2016 8:00 AM | | | | | PST [...] documented as of this encounter Progress Notes Meseret Sidhu RN - 10/12/2016 8:20 AM PSTEnergy level: fair Fever or chills: none Appetite: ok Nausea and/or vomiting: states intermittent nausea, no vomiting Bowels: moving well Numbness and tingling: none Bleeding or bruising: none Karnofsky: 82 Nurses notes: Here for first Thyrogen injection, will be back tomorrow and next day. Lives in [place], [place] and had rough time getting here today. documented in this encounter Plan of Treatment +--------+ + + + + | Date | Type | Specialty | Care Team | Description | +--------+ + + + + | 11/22/ | Appointment | Radiation Oncology | Susie Montemayor | | | 2020 | | | MD Jared [address] | | | | | | [place] | | | | | | [address] | | | | | | | [...] | thyrotropin samina (THYROGEN) | Given | 10/12/20 | 0.9 mg | | Ventrogl | | injection 0.9 mg 0.9 mg, | | 16 8:26 | | | uteal-Le | | Intramuscular, ONCE, 10/12/16 | | AM PST | | | ft | | at 0830, For 1 dose, Keep in | | [...]
--- OUTSIDE RECORDS SUMMARY | ~2020-07-17 | XMS | Encounter Summary ---
Demographics + + + | Address | [address] | | | [place] [address] | + + + | Home Phone [...] Team Providers + +------+ + | Care Avionics Safety Inspector Name | Role | Phone | + +------+ + | Zuleyka Martínez | PCP | | + +------+ + Reason for Visit + + + | Reason | Comments | + + + | Nutrition Counseling | | + + + Encounter Details +--------+ + + + + | Date | Type | Department | Care Team | Description | +--------+ + + + + | 04/02/ | Hospital | [facility] | Milton Salazar | | | 2017 | Encounter | MED CTR NUTRITION | MD [address] | | | | | SERVICES [address] | [facility] | | | | | [facility] [place], | [place] [address] | | | | | [place] [address] | [phone] | | | | | [phone] | | | | | | | Sonal Sheikh, | | | | | | HARMAN | | +--------+ + + + + [...] encounter Progress Notes Sonal Sheikh RDN - 04/02/2017 11:32 AM PDTFormatting of this note might be different f rom the original. Medical Nutrition Note SUBJECTIVE: Weight is down overall about 10# but in the past 2 weeks she has been 183-185# . She does have a sinus infection and just does not feel like eating. Reviewed food recall and provided suggestions to increase intake as well as easy to eat food and snacks she can easily consume. She is not interested in supplements. Nausea is much better than on previo us appointment. OBJECTIVE: Wt Readings from Last 3 Encounters: 04/02/17 83.7 kg (184 lb 8 oz) 03/31/17 84 kg (185 lb 3 oz) 03/22/17 83.1 kg (183 lb 3.2 oz) Ht Readings from Last 1 Encounters: 11/04/16 1.727 m (5' 8") BMI 28.05 Labs: Lab Results Component Value Date ALBUMIN 3.9 04/02/2017 Time spent: 15 minutes Thank you for the referral, Sonal Sheikh RDN 04/02/2017 11:32 documented in this encounter Plan of Treatment [...] [place] | | | | | | [id number] | | | | | | | | +--------+ + + + + documented as of this encounter Visit Diagnoses Not on filedocumented in this encounter
--- OUTSIDE RECORDS SUMMARY | ~2020-07-17 | XMS | Encounter Summary ---
Demographics + + + | Address | [address] | | | [place] [address] | + + + | Home Phone [...] Providers + +------+ + | Care Machine Ii Trimmer Name | Role | Phone | + +------+ + | Zuleyka Martínez | PCP | | + +------+ + Reason for Visit +--------+--------+ + | Reason | Onset | Comments | | | Date | | +--------+--------+ + | Other | 01/07/ | | | | 2020 | | +--------+--------+ + Encounter Details +--------+ + + + + | Date | Type | Department | Care Team | Description | +--------+ + + + + | 01/07/ | Telephone | [facility] | Milton Salazar | Other | | 2020 | | MED CTR MEDICAL | MD [address] | | | | | ONCOLOGY CLINIC [address] | [facility] | | | | | [address] | [place] [address] | | | | | [place] [address] | [phone] | | | | | [phone] | | | +--------+ + + + [...] this encounter Miscellaneous Notes Telephone Encounter - Dandre Gustafson - 01/08/2020 3:54 PM PDTScheduled elephone Encounter - Jaycee Barclay RN - 01/08/2020 10:29 AM PDTPatient agrees to 12:[address] Salazar today . Please put this on today's schedule. Electronically signed by Marlene Barclay RN at 0 01/08/2020 10:30 AM PDTTelephone Encounter - Dandre Gustafson - 01/08/2020 9:01 AM PDTJacobo zhao was discharged from [facility] on 01-[facility]-20 and was told to make an appointment this week with Dr. Salazar as she has a new brain lesion.. Please advise where I can place her. Also, she is schedule tomorrow (01-09-20) for a PET at [facility]. She wants to reschedule it as she w as and is being treated for an infection and states it could change the results. Please adv ise if this is what she should do. documented in this encounter Plan of Treatment [...] [place] | | | | | | [address] | | | | | | | | +--------+ + + + + documented as of this encounter Visit Diagnoses Not on filedocumented in this encounter"
--- OUTSIDE RECORDS SUMMARY | ~2020-07-17 | XMS | Encounter Summary ---
Demographics + + + | Address | [address] | | | [place] [address] | + + + | Home Phone [...] Author + + + | Author | [facility] | | | and [place] | + + + | Organization | [facility] | | | [...] Team Providers + +------+ + | Care Roll Operator Name | Role | Phone | + +------+ + | Zuleyka Martínez | PCP | | + +------+ + Encounter Details +--------+ + + + + | Date | Type | Department | Care Team | Description | +--------+ + + + + | 08/07/ | Imaging | [facility] | Provider, | | | 2019 | Exam | MED CTR EXTERNAL | MD [address] | | | | | IMAGING [address] | [address] | | | | | [address] [place] | [place] [address] | | | | | [facility] [place] [address] | | | | | | [phone] | | | +--------+ + + + [...] [place] | | | | | | [place], [place] | | | | | | [address] | | | | | | | [...]
--- OUTSIDE RECORDS SUMMARY | ~2020-07-17 | XMS | Encounter Summary ---
Demographics + + + | Address | [address] | | | [place] [address] | + + + | Home Phone [...] + + + | Author | [facility] | | | and [place] | + + + | Organization | [facility] | | | [...] Team Providers + +------+ + | Care Level Vial Curvature Gauger Name | Role | Phone | + [...] | | | | | [place] [address] | | | | | | [phone] | | | +--------+ + + + [...] Ritchie RN - 08/30/2019 1:00 PM PDT [facility] Interdisciplinary Team Navigational Checklist ? Top Priority Discipline EPIC Order Entered Consult Scheduled Consult Complete Comments: x *Medical Oncology x *Radiation Oncology Dr. Albina Ruiz 08/29/19 x *Patient Navigation x *Nurse Navigator x *Social Service Survivorship Nurse Breast Health Genetics Surgical Input *Nursing assessment *Pharmacy assessment Nutrition Rehab: PT x OT Speech & Language Palliative Care Clinical Trials Involvement Brake Adjuster Visit Financial Assistance Interdisciplinary Consults Completed Date: documented in this en counter Plan of Treatment +--------+ + + + + | Date | Type | Specialty | Care Team | Description | +--------+ + + + + | 11/22/ | Appointment | Radiation Oncology | Susie Montemayor | | | 2020 | | | MD [address] | | | | | | [place], [place] | | | | | | [id number] | | | | | | | | +--------+ + + + + documented as of this encounter Visit Diagnoses Not on filedocumented in this encounter"
--- OUTSIDE RECORDS SUMMARY | ~2020-07-17 | XMS | Encounter Summary ---
Demographics + + + | Address | [address] | | | [place] [address] | + + + | Home Phone | | + + + | Preferred Language | Unknown | + + + | Marital Status | Single | + + + | Denominational Affiliation | Unknown | + + + [...] Team Providers + +------+ + | Care Cereal Popper Name | Role | Phone | + [...] | | Non-small | Salazar, | [address] | | | | | cell cancer | Milton | [place], | | | | | of right | MD [place] | [place] [address] | | | | | lung (HCC) | [address] | Phone: | | | | | Procedures | [place] | [phone] | | | | | CT Chest w | [place] | Fax: | | | | | Contrast | [address] | [phone] | | | | | | Phone: | | | | | | | [phone] | | | | | | | Fax: | | | | | | | [phone] | | +--------+--------+ + + + + [...] | | | (ICD-9-CM) - | [address] | [address] [place] | | | | | Non-small | [place], | [place], [place] | | | | | cell cancer | [place] | [address] Phone: | | | | | of right | [address] | [phone] | | | | | lung | Phone: | Fax: | | | | | Procedures | [phone] | [phone] | | | | | [address] | Fax: | | | | | | | [phone] | | +--------+--------+ + + + + Encounter Details +--------+ + + + + | Date | Type | Department | Care Team | Description | +--------+ + + + + | 05/24/ | Hospital | [facility] | Milton Salazar | Non-small cell | | 2019 | Encounter | MED CTR MEDICAL | MD [address] | cancer of right lung | | | | ONCOLOGY CLINIC [address] | [address] [place] | (HCC) (Primary Dx); | | | | [address] [place] | [place] [address] | Abnormal stress ECG | | | | [place] [address] | [phone] | with treadmill; | | | | [phone] | | Malignant neoplasm | | | [...] from the origi nal. Hem-Onc Progress Note [facility] Pt. Name/Age/: Olena Rider 58 y.o. 1960 Med. Record Number: [id number] Date of admission: 05/24/2019 Assessment and plan: [...] patient out from work in the time [facility] e surgery in March. She is hoping [...] signed by: Milton Salazar, 05/24/2019 7:57 [facility] TIME SPENT 20 MIN. > 50% AT BEDSIDE, WITH FAMILY/PATIENT IN CARE AND CAD DRAFTER ON UNIT AND CO ORDINATION OF CARE Portions of this chart may have been created with [employer] voice recognition software. Occasi onal wrong-word or [...] [place] | | | | | | [place], [place] | | | | | | [...] | | Cells | | M/uL | Maximiliano HOBSON | | | | [...] [place]ONNER. | [address] | [place] | [phone] | | [facility] | | [address] | | | - LABORATORY | | [...] | | | | | mg/dL | [facility] | | | | | | MEDICAL | | | | | | CENTER - | | | | | | LABORATORY | | + + + + + + | eGFR, | >60Comment: GLOMERULAR | >=60 | [facility] | | | non- | FILTRATION | mL/min/1.73m2 | [facility] | | | [place] | RATE,ESTIMATED | | MEDICAL | | | | mL/min/1.98d5Udbm than | | CENTER - | | [...] [address] | [address] | [phone] | | [facility] | | [address] | | | - LABORATORY | | [...]
--- OUTSIDE RECORDS SUMMARY | ~2020-07-17 | XMS | Encounter Summary ---
Demographics + + + | Address | [address] | | | [place] [address] | + + + | Home Phone [...] | Author | [facility] | | | and [place] | + + + | Organization | [facility] | | | and [...] Team Providers + +------+ + | Care Kier Tender Name | Role | Phone | + +------+ + | Zuleyka Martínez | PCP | | + +------+ + Reason for Visit + +--------+ + | Reason | Onset | Comments | | | Date | | + +--------+ + | Appointment | 02/19/ | | | | 2020 | | + +--------+ + Encounter Details +--------+ + + + + | Date | Type | Department | Care Team | Description | +--------+ + + + + | 02/19/ | Telephone | [facility] | Lemuel Da Silva DO | Appointment | | 2019 | | NEUROSURGERY [address] | [address] | | | | | [address] | [address] | | | | | [place], [place] | [place] [address] | | | | | [address] | [phone] | | | | | [phone] | | | +--------+ + + + [...] this encounter Miscellaneous Notes Telephone Encounter - Yo Neri CMA - 02/20/2020 8:32 AM PDTFirst choice called and stated that the follow CPT code was approved for 1 day and she included the authorization ethel sawyer. CPT: 46796 Authorization number [id number] 8:3 4 AM PDTdocumented in this encounter Plan of Treatment +--------+ + + + + | Date | Type | Specialty | Care Team | Description | +--------+ + + + + | 11/22/ | Appointment | Radiation Oncology | Susie Montemayor | | | 2020 | | | MD [address] | | | | | | [facility] [place] | | | | | | [id number] | | | | | | | | +--------+ + + + + documented as of this encounter Visit Diagnoses Not on filedocumented in this encounter"
--- OUTSIDE RECORDS SUMMARY | ~2020-07-17 | XMS | Encounter Summary ---
Demographics + + + | Address | [address] | | | [place] [address] | + + + | Home Phone [...] Team Providers + +------+ + | Care Insulation Board Back Tender Name | Role | Phone | [...] 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, | [address] | | | | | adenocarcino | MD [address] | [place], | | | | | ma of brain | [address] | [place] | | | | | (HCC) | [place], | [address] | | | | | Procedures | [place] [address] | Phone: | | | | | MRI Brain w | Phone: | [phone] | | | | | wo Contrast | [phone] | Fax: | | | | | | Fax: | [phone] | | | | | | [phone] | | +--------+--------+ + + + + [...] | | adenocarcino | [address] | [place], | | | | | ma of brain | [address] | [place] [address] | | | | | (HCC) | [place], | Phone: | | | | | Procedures | [place] [address] | [phone] | | | | | CT Treatment | Phone: | Fax: | | | | | Plan | [phone] | [phone] | | | | | Complex | Fax: | | | | | | | [phone] | | +--------+--------+ + + + + [...] | | ONCOLOGY CLINIC [address] | [address] [place], [place] | brain (HCC) (Primary | | | | [address] [place] | [address] | Dx) | | | | [place] [address] | | | | | | [phone] | | | +--------+ + + + [...] 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 The positive CA19-9 and polyclonal CEA [...] will have her pathology reviewed at the [facility] r board. However my plan is to [...] 11/22/ | Appointment | Radiation Oncology | Gerry Montemayoristen | | | 2020 | | | MD Jared [address] | | | | | | [place] | | | | | | [address] | | | | | | | [...] PM HISTORY: | [facility] | | Brain/FISH STRAIGHTENER neoplasm, staging COMPARISON: MRI 01/22/2020. CT | [...] CONTRAST dated | | 03/11/2020 3:45 PMHISTORY: Brain/FISH STRAIGHTENER neoplasm, stagingCOMPARISON: MRI 01/22/2020. CT | | [...]
--- OUTSIDE RECORDS SUMMARY | ~2020-07-17 | XMS | Encounter Summary ---
Demographics + + + | Address | [address] | | | [place] [address] | + + + | Home Phone [...] Team Providers + +------+ + | Care Chemistry Quality Control Technician Name | Role | Phone [...] | | | | | | | Chest | | | | | | | Pain with | | | | | | | Abnormal | | | | | | | stress test | | | +--------+--------+ + + + + Encounter Details +--------+ + + + + | Date | Type | Department | Care Team | Description | +--------+ + + + + | 06/01/ | Hospital | [facility] | Shanae Bennett, | Abnormal stress ECG | | 2016 - | Encounter | [facility] ICU [address] | MD [address] | with treadmill | | | | [place], | RAN[place] ERIC JHAVERI | (Primary Dx); | | 06/02/ | | [place] [address] | [id number] | Cigarette smoker one | | 2015 | | [phone] | | half pack a day or | | | | | | less; Precordial | | | | | | [...] + + + | Blood Pressure | 115/64 | 06/02/2016 3:39 PM | | | | | PDT | | + + + + + | Pulse | 61 | 06/02/2016 3:39 PM | | | | | PDT | | + + + + + | Temperature | 36.9 C (98.4 F) | 06/02/2016 3:39 PM | | | | | PDT | | + + + + + | Respiratory Rate | 18 | 06/02/2016 3:39 PM | | | | | PDT | | + + + + + | Oxygen Saturation | 96% | 06/02/2016 3:39 PM | | | | | PDT | | + + + + + | Inhaled Oxygen | - | - | | | Concentration | | | | + + + + + | Weight | 89.9 kg (198 lb 3.1 | 06/02/2016 3:59 AM | | | | oz) | PDT | | + + + + + | Height | 172.7 cm (5' 8") | 06/01/2016 6:02 PM | | | | | PDT | | + + + + + | Body Mass Index | 30.14 | 06/01/2016 6:02 PM | | | | | PDT | | + + + + + documented in this encounter Discharge Summaries Holger Cunningham MD - 06/02/2016 6:05 PM PDT [facility] DISCHARGE SUMMARY Pt. Name/Age/: Olena Rider 55 y.o. 1960 Date of Admission: 06/01/2016 Date of Discharge: 06/02/2016 Admitting Physician: Shanae Bennett MD Primary Care Provider: Zuleyka Martínez Discharging Physician: Holger Cunningham MD DISCHARGE DIAGNOSES: Active Hospital Problems Diagnosis left-sided chest pain with pleuritic component, ACS excluded this admission Abnormal exercise stress ECG with nonspecific ST and T changes with maximal change of 1 -2 mm without evolutionary changes during rest Cigarette smoker one half pack a day or less abnormal chest CT with 4 lung nodules, sized 2.5, 3.5, 7, and 8 mm in addition to 4 no nspecific areas of bone sclerosis involving C7, T3, L1, and the sternal body; all without de structive changes Resolved Hospital Problems Diagnosis No resolved problems to display. DISCHARGE MEDICATIONS: Discharge Medications New Medications Details indomethacin 25 mg capsule Take 1-2 capsules by mouth 3 times daily as needed. Take with food aka: INDOCIN Unchanged Medications Details traMADol 50 mg tablet Take 50 mg by mouth every 6 hours as needed for Pain. aka: ULTRAM zolpidem 10 mg tablet Take 10 mg by mouth nightly as needed for Sleep. aka: AMBIEN DISCHARGE INSTRUCTIONS: Follow-up Information Follow up with Zuleyka Martínez. Specialty: Nurse Practitioner Why: appointment on , 06/04 at 1 pm Contact information: [address] [place] [address] RESULTS: CT PULMONARY ANGIOGRAM 06/02/2016 12:39 PM CLINICAL HISTORY: pleuritic chest pain, r/o PE COMPARISON: Chest radiographs from the previous day TECHNIQUE: Axial images are performed through the chest following the uneventful intravenous administration of 60 mL Omnipaque-350 contrast, with timing of the contrast bolus optimized for opacification of the pulmonary arterial tree. Multiplanar reformations are also performed. FINDINGS: The study is of good quality, and demonstrates no visible filling defects within the pulmonary arterial tree to suggest the presence of thromboembolic disease. Evaluation of the systemic vasculature is limited by timing of this pulmonary angiographic exam, however early calcified plaque formation is noted within the thoracic aorta. The mediastinum is otherwise unremarkable. A mildly enlarged right hilar node measuring 1.2 cm short axis is noted on image 65. No other enlarged nodes are visible. There is no pneumothorax or pleural effusion. A 5 mm rounded hypodensity is noted in the right thyroid lobe. Changes of centrilobular emphysema are present. A thin-walled bulla is present in the left infrahilar region. Mild dependent density in the lungs is consistent with atelectasis. A mosaic pattern of attenuation is present in the mid to basilar lungs. There is an 8 mm nodule in the posterior lateral right lower lobe on image 69, and a 7 mm nodule is present in the posterior lateral right costophrenic sulcus on image 106. A 2.5 mm lingular nodule is present on image 85, and a 3.5 mm nodule is present in the posterior left costophrenic sulcus on image 107. No consolidation or central airway abnormality is evident. Coarse, bandlike opacity medially in the right middle lobe favors atelectasis or scar. There is non-specific localized, patchy sclerosis in the L1 vertebral body. A small, rounded sclerotic focus is also visible left posterior laterally in the T3 vertebral body. Additional sclerosis is suggested within the C7 vertebral body and also inferiorly in the sternal body. There is multilevel thoracic spondylosis. Few tiny, rounded hypodensities are present in the imaged liver, measuring up to 6 mm in size, the largest of which is near fluid attenuation, favoring cysts. A 12 mm left adrenal nodule is present and demonstrates low attenuation consistent with the presence of fat, favoring a lipid rich adenoma. Imaged upper abdomen is otherwise unremarkable. IMPRESSION - 1. NO EVIDENCE OF PULMONARY EMBOLISM. 2. FOUR SMALL, NON-SPECIFIC PULMONARY NODULES MEASURING UP TO [address]OMM[address] FOLLOW-UP CT IN APPROXIMATELY THREE MONTHS TO EVALUATE FOR STABILITY. CHANGES OF CENTRILOBULAR EMPHYSEMA ARE PRESENT, ALONG WITH MOSAIC ATTENUATION POTENTIALLY REFLECTING LOBULAR AIR TRAPPING. A MILDLY ENLARGED RIGHT HILAR LYMPH NODE IS PRESENT. 3. NON-SPECIFIC SCLEROTIC REGIONS WITHIN THE C7, T3 AND L1 VERTEBRAL BODIES AND STERNAL BODY. CONSIDER FOLLOW-UP BONE SCAN. 4. SMALL HYPODENSITIES IN THE IMAGED LIVER, THE LARGEST OF WHICH IS NEAR FLUID ATTENUATION, FAVORING HEPATIC CYSTS. 5. 12 MM LOW-ATTENUATION LEFT ADRENAL NODULE FAVORING A LIPID RICH ADENOMA. Dictated and Signed by: Hugo Godfrey MD Electronically signed: 06/02/2016 1 Transthoracic Echocardiography Report (TTE) Demographics Patient Name MINNA BONE Room Number [address] [place] [address] Patient Number [id number] Date of Study 06/02/2016 Visit Number [id number] Referring Physician ANTONIO Maki Number Date of 1960 [employer] ZUNILDA DILLON Age 55 year(s) Interpreting PAMELA GUTIERREZ MD History Department Chair Gender Female Nurse Procedure Type of Study TTE procedure: ECHO Complete. Procedure date Date: 06/02/2016Start: 06:58 AM Technical Quality: Adequate visualizationStudy Location: ICU Indications: Chest Pain 786.51/R07.2. Patient Status: STAT- Call Back Height: 68 inchesWeight: 198 poundsBSA: 2.04 m^2BMI: 30.11 kg/m^2 HR: 81 bpm Conclusions Summary mildly dilated left atrium. No evidence [...] significant stenosis There is mild regurgitation. diastolic dysfunction Signature Findings Mitral Valve Structurally normal mitral valve without significant stenosis There is mild regurgitation. diastolic dysfunction Aortic Valve Trivial aortic regurgitation is noted. Aortic valve appears trileaflet. Tricuspid Valve Structurally normal tricuspid valve with mild regurgitation. normal estimated RV pressure of 27.1 + RA pressure Pulmonic Valve not well seen Left Atrium mildly dilated left atrium. No evidence of thrombus or mass within left atrium. Left Ventricle Left ventricle is normal in size and function. Ejection fraction is estimated at 72 %. Right Atrium Normal right atrium. Right Ventricle Normal right ventricular structure and function. Pericardial Effusion No evidence of pericardial effusion. Pleural Effusion No evident pleural effusion identified. Valves Mitral Valve Peak E-Wave: 0.86 m/s CLAUDETTE PISA: 0.01 cm^2 Peak A-Wave: 0.68 m/s Aortic Valve Area (continuity): 4.39 cm^2 Mean Gradient: 2.74 mmHg Tricuspid Valve TR Velocity: 2.6 m/s LVOT Peak Velocity: 0.96 m/s LVOT Diameter: 2.45 cm Structures Left Atrium LA A/P Dimension: 3.85 cm LA Area: 21.78 cm^2 LA Vol/BSA Index: 36 mL/m^2 LA Volume: 72.97 ml Left Ventricle Diastolic Dimension: 5.52 cm Systolic Dimension: 3.55 cm Septum Diastolic: 0.83 cm PW Diastolic: 0.83 cm EF Calculated: 65.92% Miscellaneous Aorta Aortic Root: 2.87 cm Ascending Aorta Results for OLENA RIDER ( ) as of 06/02/2016 18:11 Ref. Range 06/01/2016 17:56 06/01/2016 23:38 06/02/2016 05:47 Troponin I Latest Ref Range: <0.06 ng/mL 0.01 0.01 <0.01 Results for OLENA RIDER ( ) as of 06/02/2016 18:11 Ref. Range 06/02/2016 05:47 Chol/HDL Ratio Unknown 6.8 Cholesterol Latest Ref Range: 150-200 mg/dL 231 (H) HDL Cholesterol Latest Ref Range: 28-83 mg/dL 34 LDL, Calculated Latest Ref Range: <=130 mg/dL 174 (H) Triglycerides Latest Ref Range: 35-160 mg/dL 115 HOSPITAL COURSE: Please refer to the H&P for full details. In short this 55-year-old female presented with a history of developing chest pain 3 AM on the morning of admission which awoke her from sle ep and she described as sharp and severe. She noted a change with deep breathing making her pain worse. She was not nauseated but did have a component of diaphoresis. She went to [facility] emergency room and had negative enzymes and underwent a exercise treadmill test while pain was rated as 7-8 out of 10 which showed some nonspecific 1-[address] segment depres sions maximally in the anterior leads of 1.75 mm about evolutionary changes. She was referr ed here for further assessment. He was seen in cardiology consultation by Dr. Gutierrez who felt her pain was not ACS but was concerned about the potential of it representing pericardi tis because the patient reported improvement in pain when she leaned forward. The patient h ad serial enzymes which were negative for myocardial ischemia and reported persistent pain f rom 3 AM on the morning of admission up until this a.m. when she was further assessed repres enting greater than 24 hours of pain duration. He states the pain waxed and waned but never resolved. Given the nature of her pain she underwent CT pulmonary angiogram of her chest w hich was negative for pulmonary embolism but did show for small lung nodules the largest ilene ng 8 mm and 4 areas of nonspecific bony sclerosis. Is was reviewed with radiology and it wa s felt it could be either addressed with follow-up serial CT imaging starting in 3 months to demonstrate stability and bone scan at this time or PET imaging. 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 She was agreeable to this wanda dahl. In addition because of the pleuritic nature with the risk of this representing viral pleurisy she was initiated on indomethacin receiving 50 mg on the day of discharge which sh e reports resulted in significant improvement in her pain. She is given a prescription for indomethacin 25 mg 1-23 times daily as needed for discomfort #50 and we'll schedule her to s her PCP, Zuleyka Martínez in [place] on this with a recommendation that she b e referred for PET CT imaging for evaluation of her pulmonary nodules. Further assessment w ill be based on the results of PET imaging. Otherwise she was counseled on the benefits of cessation of cigarette smoking and has motivation with respect to this and will begin dietar y change with respect her cholesterol noting moderate elevation with an LDL of 174 and shoul d be considered for lipid reducing agent should a period of diet trial not be successful. PHYSICAL EXAM: Temp: 36.9 C (98.4 F), Pulse: 61, Resp: 18, BP: 115/64 mmHg, SpO2 96 % on room air at f low rate L/min Temp Min: 36 C (96.8 F) Max: 36.9 C (98.4 F) Weight: 89.4 kg (197 lb 1.5 oz) Patient seen and examined by me on discharge day Greater than 30 minutes were spent on discharge and coordination of post-hospital care. Electronically signed by: Holger Cunningham MD, 06/02/2016 18:05 Merged with [facility] Portions of this chart may have been created with Oh My Green! voice recognition software. Occasi onal wrong-word or sound-alike substitutions may have occurred due to the inherent cervantes itations of voice recognition software. Please read the chart carefully and recognize, using context, where these substitutions have occurred documented in this encounter Medications at Time [...] documented as of this encounter Progress Notes Pamela Gutierrez MD - 06/02/2016 3:07 PM PDTReviewed the stress test that was faxed from yesterday. Strips show non-specific ST-T changes. Her pain is inconsistent with CAD (const ant -pleuritic). She is set to get a dose of Indocin. I reviewed her cholesterol with her and she will try diet and exercise for three months. I f this does not improve then she will consider starting a statin. Pamela Argueta MD - 06/02/2016 9:09 AM PD T PATIENT NAME: Olena Rider : 1960: AGE: 55 y.o. PRIMARY CARE: Zuleyka Martínez ICU FOLLOW UP VISIT Date of Service: 06/02/16 HISTORY OF PRESENT ILLNESS: Olena Rider is a 55 y.o. female with a history of pleuritic chest pain. She is naresh cui seen today for follow up. She continues to have constant pleuritic pain - it is better than last PM. Labs are normal. Echo shows normal wall motion and mild MR. MEDICAL, SURGICAL, AND PERSONAL HISTORY Past Medical, Surgical, Family, and Social History are reviewed in EPIC. CURRENT PROBLEMS Patient Active Problem List Diagnosis Precordial pain Abnormal stress ECG with treadmill Cigarette smoker one half pack a day or less Insomnia CURRENT MEDICATIONS Current Facility-Administered Medications Medication Dose Route Frequency Provider Last Rate Last Dose acetaminophen (TYLENOL) tablet 650 mg 650 mg Oral Q4H PRN Shanae Bennett MD 650 mg at 06/01/16 2101 aspirin chewable tablet 81 mg 81 mg Oral Daily Shanae Bennett MD 81 mg at 06/02/16 0846 fentaNYL (PF) injection 25 mcg 25 mcg Intravenous Q2H PRN Pamela Gutierrez MD 25 mcg at 06/02/16 0552 nitroglycerin (NITROSTAT) SL tablet 0.4 mg 0.4 mg Sublingual Q5 Min PRN Shanae romero MD ondansetron (ZOFRAN) injection 4 mg 4 mg Intravenous Q6H PRN Shanae Bennett MD sodium chloride 0.9% (NS) infusion Intravenous Continuous Pamela Gutierrez MD 50 mL/h r at 06/01/16 1938 traMADol (ULTRAM) tablet 50 mg 50 mg Oral Q6H PRN Shanae Bennett MD 50 mg at 06/02 0359 zolpidem (AMBIEN) tablet 10 mg 10 mg Oral Nightly PRN Shanae Bennett MD 10 mg at 0 06/01/16 2358 ALLERGIES Allergies Allergen Reactions Morphine And Related Other (See Comments) ROS: No cough or sputum No fever OBJECTIVE: PHYSICAL EXAM PHYSICAL EXAM Latest VS: BP 103/64 mmHg | Pulse 64 | Temp(Src) 36.8 C (98.2 F) (Oral) | Resp 18 | Ht 1.727 m (5' 8") | Wt 89.9 kg (198 lb 3.1 oz) | BMI 30.14 kg/m2 | SpO2 97% | LMP (LMP Unkno wn) | ? No Vital sign ranges for last 24hrs: Input and output for last 24hrs: Temp: [36 C (96.8 F)-37 C (98.6 F)] 36.8 C (98.2 F) Pulse: [64-83] 64 Resp: [14-20] 18 BP: (98-121)/(55-72) 103/64 mmHg SpO2 Av.2 % Min: 97 % Max: 100 % 05/31 1901 - 06/02 0700 In: 1358 [P.O.:830; I.V.:528] Out: 1200 [Urine:1200] Body mass index is 30.14 kg/(m^2).; Body surface area is 2.08 meters squared. Constitutional General appearance: well developed, well nourished, no acute distress Pt eating during my visit ECG: LAB RESULTS: Recent Results (from the past 24 hour(s)) ECG 12 lead Result Value Ref Range VENTRICULAR RATE EKG 79 BPM ATRIAL RATE 79 BPM P-R INTERVAL 140 ms QRS DURATION 84 ms Q-T INTERVAL 384 ms Q-T INTERVAL (CORRECTED) 440 ms P WAVE AXIS 61 degrees QRS AXIS 49 degrees T AXIS 66 degrees INTERPRETATION TEXT Normal sinus rhythm Normal ECG No previous ECGs available Confirmed by TARI VILLAFANA, REJI ([id number]) on 06/02/2016 8:44:17 AM Troponin I Result Value Ref Range Troponin I 0.01 <0.06 ng/mL C-Reactive Protein Result Value Ref Range CRP 3.29 <8.00 mg/L Sedimentation Rate Result Value Ref Range ESR 13 <30 mm/hr Basic Metabolic Panel Result Value Ref Range NA 143 136-149 mmol/L K 3.7 3.5-5.1 mmol/L CL 109 98-109 mmol/L CO2 27 24-31 mmol/L ANION GAP 7 3-16 mmol/L GLUCOSE 105 70-109 mg/dL BUN 9 7-18 mg/dL Creatinine, Serum/Plasma 1.00 0.60-1.30 mg/dL eGFR if not 58 (L) >=60 mL/min/1.73m2 CALCIUM 9.2 8.3-10.5 mg/dL BUN/CREA 9.0 Troponin I Result Value Ref Range Troponin I 0.01 <0.06 ng/mL Basic Metabolic Panel Result Value Ref Range NA 141 136-149 mmol/L K 4.0 3.5-5.1 mmol/L CL 110 (H) 98-109 mmol/L CO2 25 24-31 mmol/L ANION GAP 6 3-16 mmol/L GLUCOSE 101 70-109 mg/dL BUN 12 7-18 mg/dL Creatinine, Serum/Plasma 0.93 0.60-1.30 mg/dL eGFR if not >60 >=60 mL/min/1.73m2 CALCIUM 8.7 8.3-10.5 mg/dL BUN/CREA 12.9 CBC with Differential Result Value Ref Range WBC 8.7 4.0-11.0 K/uL RBC 4.20 3.70-5.20 M/uL Hgb 13.0 11.5-16.0 g/dL Hct 37.9 34.0-47.0 % MCV 90.2 83.0-101.0 fL MCH 31.1 28.0-35.0 pg MCHC 34.4 32.0-36.0 g/dL RDW-CV 13.1 <15.0 % Platelet Count 258 140-440 K/uL MPV 8.5 fL % Neutrophils 46.1 45.0-82.0 % % Lymphocytes 43.0 20.0-45.0 % % Monocytes 6.9 4.0-12.0 % % Eosinophils 3.3 0.0-5.0 % % Basophils 0.7 0.0-1.0 % Absolute Neutrophils 4.00 1.80-8.50 K/uL Absolute Lymphocytes 3.80 (H) 0.60-3.20 K/uL Absolute Monocytes 0.60 0.00-1.00 K/uL Absolute Eosinophils 0.30 0.00-0.40 K/uL Absolute Basophils 0.10 0.00-0.10 K/uL Magnesium Result Value Ref Range MG 2.0 1.8-2.5 mg/dL C-Reactive Protein Result Value Ref Range CRP 3.13 <8.00 mg/L Sedimentation Rate Result Value Ref Range ESR 12 <30 mm/hr Lipid Panel Result Value Ref Range Triglycerides 115 35-160 mg/dL CHOLESTEROL 231 (H) 150-200 mg/dL HDL 34 28-83 mg/dL Chol/HDL Ratio 6.8 LDL, Calculated 174 (H) <=130 mg/dL Troponin I Result Value Ref Range Troponin I <0.01 <0.06 ng/mL ASSESSMENT: Pleuritic chest pain - etiology unclear. Nothing to suggest ischemia We have been unable to get strips from the stress test done prior to transfer Discussed at length with Dr Cunningham. Will proceed with CT angio of chest - she agrees. hyperlipidemia - she should be on medical therapy if diet and exercise not effective PLAN: Ct of chest PE protocol Electronically signed by: Pamela Gutierrez MD [facility] 06/02/2016 Portions of this chart may have been created with Oh My Green! voice recognition software. Occasi onal wrong-word or sound-alike substitutions may have occurred due to the inherent cervantes itations of voice recognition software. Please read the chart carefully and recognize, using context, where these substitutions have occurred. documented in this e ncounter H&P Notes Shanae Bennett MD - 06/01/2016 5:59 PM PDTFormatting of this note might be different fr om the original. [facility] HISTORY AND PHYSICAL Pt. Name/Age/: Olena Rider 55 y.o. 1960 Date of admission: 06/01/2016 Admitting Physician: Shanae Bennett MD Primary Care Provider: Zuleyka Martínez CHIEF COMPLAINT: Awoke with left chest pain, abnormal stress test at outside hospital HISTORY OF PRESENT ILLNESS: This is a 55 y.o. female who presented with chief complaint of awakening this AM around 3:0 0 with left chest pain that was quite severe. It was somewhat sharp and radiated to the left shoulder. She did not note any shortness of breath but states she would be unsure if having diaphoresis as she is menopausal and having hot flashes. She has never had this before. She has not had a stress test until today and has never had an echocardiogram. 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 She denies any other risks/exposure/injuries. She notes that her parents b oth young and there is no cardiac disease in the family history. She does not have any chronic conditions such as diabetes but does admit her cholesterol has been a bit higher lat radha. Her pain may be lessened with sitting up and leaning forward. She is unsure if she has a real allergy to morphine- more likely an intolerance. She was at [facility] to evaluate th is and reportedly she was sent for an exercise stress test. This test was stopped due to inc reasing pain and ST-T wave changes. She was sent back to the ED and was referred here for ca rdiology work up and care. Dr. Gutierrez has been consulted. PAST MEDICAL and SURGICAL HISTORY: Past Medical History Diagnosis Date Insomnia Past Surgical History Procedure Laterality Date Appendectomy Hysterectomy FAMILY HISTORY: family history is not on file. Parents at young age, no specific diseases. Family hist ory is negative for specific disease states. SOCIAL HISTORY: reports that she has been smoking. She has never used smokeless tobacco. She reports that she does not drink alcohol or use illicit drugs. 1/2 pack per day for around 30 years REVIEW OF SYSTEMS: Positive for several weeks of general malaise. A complete 10-system review was otherwise n egative except as noted in the HPI. HOME MEDICATIONS: Current Discharge Medication List CONTINUE these medications which have NOT CHANGED Details traMADol (ULTRAM) 50 mg tablet Take 50 mg by mouth every 6 hours as needed for Pain. zolpidem (AMBIEN) 10 mg tablet Take 10 mg by mouth nightly as needed for Sleep. ALLERGIES: Allergies Allergen Reactions Morphine And Related Other (See Comments) VITAL SIGNS: Temp: 36.8 C (98.2 F), Pulse: 64, Resp: 18, BP: 121/72 mmHg, SpO2 99 % on room air at f low rate L/min Temp Min: 36.8 C (98.2 F) Max: 37 C (98.6 F) Weight: 89.4 kg (197 lb 1.5 oz) PHYSICAL EXAMINATION: Gen Wanda - alert, cooperative and no distress Head - Normocephalic, without obvious abnormality, atraumatic Eyes - PERRL, conjunctiva/corneas clear, EOM's intact both eyes ENT - mucous membranes moist Neck - supple Lungs - clear to auscultation, no wheezes or rales and unlabored breathing Heart - normal rate, regular rhythm, normal S1, S2, no murmurs, rubs, clicks or gallops Abdomen - soft, non-tender, without masses or organomegaly Extremities - no peripheral edema, no clubbing or cyanosis Skin - no rashes Neurologic - Alert and oriented x 3. CN II-XII intact DIAGNOSTIC STUDIES: Available data and images were reviewed personally. Significant results and findings are a ddressed here or in the Assessment and Plan. No results found for: HGB, HCT, LABPLAT, PLT, WBC No results found for: NA, K, CL, CO2, CREA, BUN, MG, PHOS, CRP, ESR, BNP No results found for: POCGLU No results found. EKG: Reviewed independently by me. The tracing shows NSR, very slight, non specific ST T w ave changes. ASSESSMENT and PLAN: Principal Problem: Precordial pain Active Problems: Abnormal stress ECG with treadmill Cigarette smoker one half pack a day or less Insomnia Plan: admit, place on telemetry, serial troponin, check echo and labs, cardiology to consid er cath in setting of abnormal outside stress testing, smoking cessation, already had ASA to day DVT Prophylaxis SCD's while in bed Code Status Full Code. CMS Documentation I expect this patient will be hospitalized for greater than 2-midnights and expect the post -hospital plan to be discharge to home or to an adult foster home. Total of 45 minutes were required to complete the admission process. Electronically signed by: Shanae Bennett MD 06/01/2016 18:09 Merged with [facility] Portions of this chart may have been created with Oh My Green! voice recognition software. Occasi onal wrong-word or sound-alike substitutions may have occurred due to the inherent cervantes itations of voice recognition software. Please read the chart carefully and recognize, using context, where these substitutions have occurred documented in this e ncounter Consult Notes Pamela Gutierrez MD - 06/01/2016 6:49 PM PDTAssociated Order(s): PROVIDER TO PROVIDER CON SULT CARDIOLOGY CONSULTATION PATIENT NAME/: Olena Rider, (1960) DATE OF ADMISSION: 06/01/2016 ADMIT/REFERRING PHYSICIAN: Shanae Bennett MD DATE OF CONSULTATION: 06/01/2016 (Hospital Day: 1) CONSULTING CALENDER RUNNER: Pamela Gutierrez MD HISTORY OF PRESENT ILLNESS: Thank you for asking me to see this 55 y.o. female in cardiology consultation regarding her chest pain. This is a 55 y.o. female who presented with chief complaint of awakening this AM around 3: 00 with left chest pain that was quite severe. It was somewhat sharp and radiated to the lef t shoulder She states the pain was and remains pleuritic. She did not note any shortness of breath but states she would be unsure if having diaphoresis as she is menopausal and having hot flashes. She has not had any documented fever. She has never had any cardiac disease. She has never had this before. She has not had a stress test until today and has never had an echocardiogram. 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 She denies any other risks/exposure/inj uries. She was sent for a stress test at [facility]. She was told she reached "90%" . She had so me ECG changes. The pain present at rest was worse with exercise. We do not have the strips . She was having chest pain before they put her on the treadmill and it continued with exer cise. A D dimer was reoorted as negative. She notes that her parents both young and there is no cardiac disease in the family h istory. Her siblings do not have cardiac disease. She does not have any chronic conditions such as diabetes but does admit her cholesterol has been a bit higher lately. Her pain may b e lessened with sitting up and leaning forward. She is unsure if she has a real allergy to m orphine- more likely an intolerance. ASSESSMENT/PLAN: The pertinent data is below, my initial assessment and brief recommendations include: Impression 1. Pleuritic chest pain - suspect pericardidits or pleurisy - description and labs are not consistent with acute coronary syndrome 2. Hyperlipidemia 3. Smoker Recommendations 1. Serial CRP and SED rates 2. Echo - can be done in am 3. Repeat ECG and CXR in am 4. Discussed with Dr Bennett ACTIVE PROBLEM LIST: Principal Problem: Precordial pain Active Problems: Abnormal stress ECG with treadmill Cigarette smoker one half pack a day or less Insomnia PAST MEDICAL HISTORY: Past Medical History Diagnosis Date Insomnia Past Surgical History Procedure Laterality Date Appendectomy Hysterectomy MEDICATIONS: [START ON 06/02/2016] aspirin 81 mg Oral Daily IV: sodium chloride 0.9% PRN: acetaminophen, nitroglycerin, ondansetron, traMADol, zolpidem Allergies: Allergies Allergen Reactions Morphine And Related Other (See Comments) Family History: History reviewed. No pertinent family history. Social History: History Substance Use Topics Smoking status: Current Every Day Smoker Smokeless tobacco: Never Used Alcohol Use: No REVIEW OF SYSTEMS: A 14 system, 2 point review was conducted, and in addition to what is noted above in the HP I, the highlights included: Consitutional - hot flashes no documented fever Psychological - no recent memory changes Ophthalmic - no complaint of any recent visual change ENT - no epistaxis Allergy and Immunology - no itchy/watery eyes Hematological and Lymphatic - no jaundice or swollen lymph nodes Endocrine - no skin changes or temperature intolerance Respiratory - no cough or sputum production Cardiovascular - as detailed above in HPI Gastrointestinal - no black or bloody stools Genito-Urinary - no hematuria or incontinence Musculoskeletal - no significant muscle weakness or back pain Neurological - no TIA or stroke symptoms Dermatological - no rash or skin lesions she does have xanthelasma PHysical Exam: Most Recent Vitals: Temp: 36.8 C (98.2 F) BP: 121/72 mmHg Pulse: 64 Resp: 18 SpO2 : 99 % Weight: admission Weight: 89.4 kg (197 lb 1.5 oz) her current Weight: 89.4 kg (197 lb 1.5 oz) General Appearance - alert, in no distress HEENT -conjunctiva and corneas are normal Heart - regular rate and rhythm, S1 and S2 normal, no murmur, rub, or gallop. Lungs - clear to auscultation bilaterally Abdomen - soft, non-tender, no palpable masses Musc/Skel - moves all extremities Extremities - no cyanosis. no significant edema Skin - no lesions or rashes Neurologic - no focal deficits DIAGNOSTIC STUDIES: Labs: No results found for: WBC, HGB, HCT, MCV, PLT, INR Lab Results Component Value Date CREA 1.00 06/01/2016 BUN 9 06/01/2016 NA 143 06/01/2016 K 3.7 06/01/2016 Lab Results Component Value Date CALCIUM 9.2 06/01/2016 No results for input(s): CKMB, BNP in the last 168 hours. Invalid input(s): CKTOTAL, TROPONINI No results found for: CHOL, TRIG, HDL, LDL Imaging: Available data and images were reviewed personally. Significant results and findings are a ddressed here or in the Assessment and Plan. EKG: Recent Results (from the past 24 hour(s)) ECG 12 lead Result Value Ref Range INTERPRETATION TEXT Not Confirmed Troponin I Result Value Ref Range Troponin I 0.01 <0.06 ng/mL C-Reactive Protein Result Value Ref Range CRP 3.29 <8.00 mg/L Sedimentation Rate Result Value Ref Range ESR 13 <30 mm/hr Basic Metabolic Panel Result Value Ref Range NA 143 136-149 mmol/L K 3.7 3.5-5.1 mmol/L CL 109 98-109 mmol/L CO2 27 24-31 mmol/L ANION GAP 7 3-16 mmol/L GLUCOSE 105 70-109 mg/dL BUN 9 7-18 mg/dL Creatinine, Serum/Plasma 1.00 0.60-1.30 mg/dL eGFR if not 58 (L) >=60 mL/min/1.73m2 CALCIUM 9.2 8.3-10.5 mg/dL BUN/CREA 9.0 Portions of this chart may have been created with [employer] voice recognition software. Occasi onal wrong-word or sound-alike substitutions may have occurred due to the inherent cervantes itations of voice recognition software. Please read the chart carefully and recognize, using context, where these substitutions have occurred. CC: Zuleyka Martínez - PRIMARY CARE PROVIDER Shanae Bennett MD - ADMIT/REFERRING PHYSICIAN documented in this e ncounter Miscellaneous Notes Plan of Care - Sapna Hilario RN - 06/02/2016 4:46 PM PDTProblem: Patient Care Overview ( Adult) Goal: Care Team Goals & Evaluation PROBLEM-RELATED GOALS: Olena will be free from CP by 06/03/16 Olena will be hemodynamically stable by 06/03/16 STRATEGY TO ACHIEVE GOALS: Assess CP characteristics, and treat with NTG PRN, and chest pain response to medication , notify MD Monitor serial of cardiac enzyme RESTRAINT-RELATED GOALS: STRATEGIES TO ACHIEVE RESTRAINT GOALS: Outcome: Improving Goal Evaluation: Started on Indocin at 1515 (taken with snack). Presently ambulating in dover, states pain is 1/10. lan of Yoselin Cyr - 06/02/2016 2:28 PM PDTDC Planning: This ASSESSMENT SPECIALIST spoke with Olena at her bedside regarding her discharge plans. Her daughters Jodie wylie and Brigitte were also present in the room. She lives in a home in [place] on the main floor. There are two steps to enter the house. Olena lives on the main level, Brigitte lives in the upstairs and Jennifer lives in the ba sement. 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 Olnea does not own or use any DME. No DME company preference. SHe declines the need for for SNF and HH. Her PCP is Zuleyka Martínez and she uses [facility] pharmacy or [facility] in [place] . Her daughters will be her ride home when she is stable for discharge. No discharge needs noted. Electronically signed by: Yoselin Perez 06/02/2016 14:34 lan of Ceci Holguin RN - 06/02/2016 7:09 AM PDTProblem: Patient Care Overview (Adult) Goal: Care Team Goals & Evaluation PROBLEM-RELATED GOALS: Olena will be free from CP by 06/03/16 Olena will be hemodynamically stable by 06/03/16 STRATEGY TO ACHIEVE GOALS: Assess CP characteristics, and treat with NTG PRN, and chest pain response to medication , notify MD Monitor serial of cardiac enzyme RESTRAINT-RELATED GOALS: STRATEGIES TO ACHIEVE RESTRAINT GOALS: Outcome: Unchanged Goal Evaluation: Olena's VS have been stable, continues with left upper chest pain fentanyl and tylenol h ave been effective with pain control Ambulating to bathroom independently ECHO pending Adequate UO slept most of the night, HR Reg NSR documented in this encounter Plan of Treatment [...] TOBAR | | | | | | [phone] | | | | | | | | +--------+ + + + + documented as of this encounter Procedures + +--------+ + + + | Procedure Name | Priori | Date/Time | Associated Diagnosis | Comments | | | ty | | | | + +--------+ + + + | CT ANGIOGRAM | Routin | 06/02/2016 | | Results for this | | PULMONARY | e | 12:47 PM | | procedure are in the | | | | PDT | | results section. | + +--------+ + + + | ECHO COMPLETE | ODILIA | 06/02/2016 | | Results for this | | | | 7:29 AM | | procedure are in the | | | | PDT | | results section. | + +--------+ + + + | LIPID PANEL | Routin | 06/02/2016 | | Results for this | | | e | 5:47 AM | | procedure are in the | | | | PDT | | results section. | + +--------+ + + + | TROPONIN I | Routin | 06/02/2016 | | Results for this | | | e | 5:47 AM | | procedure are in the | | | | PDT | | results section. | + +--------+ + + + | SEDIMENTATION RATE | Routin | 06/02/2016 | | Results for this | | | e | 5:47 AM | | procedure are in the | | | | PDT | | results section. | + +--------+ + + + | CBC WITH | Routin | 06/02/2016 | | Results for this | | DIFFERENTIAL | e | 5:47 AM | | procedure are in the | | | | PDT | | results section. | + +--------+ + + + | C-REACTIVE PROTEIN | Routin | 06/02/2016 | | Results for this | | | e | 5:47 AM | | procedure are in the | | | | PDT | | results section. | + +--------+ + + + | MAGNESIUM | Routin | 06/02/2016 | | Results for this | | | e | 5:47 AM | | procedure are in the | | | | PDT | | results section. | + +--------+ + + + | BASIC METABOLIC | Routin | 06/02/2016 | | Results for this | | PANEL | e | 5:47 AM | | procedure are in the | | | | PDT | | results section. | + +--------+ + + + | TROPONIN I | Routin | 06/01/2016 | | Results for this | | | e | 11:38 PM | | procedure are in the | | | | PDT | | results section. | + +--------+ + + + | XR CHEST PA AND | Routin | 06/01/2016 | | Results for this | | LATERAL | e | 8:44 PM | | procedure are in the | | | | PDT | | results section. | + +--------+ + + + | TROPONIN I | Routin | 06/01/2016 | | Results for this | | | e | 5:56 PM | | procedure are in the | | | | PDT | | results section. | + +--------+ + + + | SEDIMENTATION RATE | Routin | 06/01/2016 | | Results for this | | | e | 5:56 PM | | procedure are in the | | | | PDT | | results section. | + +--------+ + + + | C-REACTIVE PROTEIN | Routin | 06/01/2016 | | Results for this | | | e | 5:56 PM | | procedure are in the | | | | PDT | | results section. | + +--------+ + + + | BASIC METABOLIC | Routin | 06/01/2016 | | Results for this | | PANEL | e | 5:56 PM | | procedure are in the | | | | PDT | | results section. | + +--------+ + + + | ECG 12 LEAD | STAT | 06/01/2016 | | Results for this | | | | 5:48 PM | | procedure are in the | | | | PDT | | results section. | + +--------+ + + + | CULTURE, MRSA | Routin | 06/01/2016 | | Results for this | | | e | 5:28 PM | | procedure are in the | | | | PDT | | results section. | + +--------+ + + + | NUCLEAR CARDIOLOGY - | | 06/01/2016 | | Results for this | | EXTERNAL SCAN | | 12:00 AM | | procedure are in the | | | | PDT | | results section. | + +--------+ + + + | LABS - EXTERNAL SCAN | | 06/01/2016 | | Results for this | | | | 12:00 AM | | procedure are in the | | | | PDT | | results section. | + +--------+ + + + | ECG - EXTERNAL SCAN | | 06/01/2016 | | Results for this | | | | 12:00 AM | | procedure are in the | | | | PDT | | results section. | + +--------+ + + + documented in this encounter Results CT Angiogram Pulmonary (06/02/2016 12:47 PM PDT) + + | Specimen | + + | | + + + + + | Narrative | Performed At | + + + | CT PULMONARY ANGIOGRAM 06/02/2016 12:39 PM CLINICAL HISTORY: | [facility] | | pleuritic chest pain, r/o PE COMPARISON: Chest radiographs | | | from the previous day TECHNIQUE: Axial images are performed | | | through the chest following the uneventful intravenous administration | | | of 60 mL Omnipaque-350 contrast, with timing of the contrast bolus | | | optimized for opacification of the pulmonary arterial tree. | | | Multiplanar reformations are also performed. FINDINGS: The study | | | is of good quality, and demonstrates no visible filling defects | | | within the pulmonary arterial tree to suggest the presence of | | | thromboembolic disease. Evaluation of the systemic vasculature is | | | limited by timing of this pulmonary angiographic exam, however early | | | calcified plaque formation is noted within the thoracic aorta. The | | | mediastinum is otherwise unremarkable. A mildly enlarged right | | | hilar node measuring 1.2 cm short axis is noted on image 65. No | | | other enlarged nodes are visible. There is no pneumothorax or | | | pleural effusion. A 5 mm rounded hypodensity is noted in the right | | | thyroid lobe. Changes of centrilobular emphysema are present. A | | | thin-walled bulla is present in the left infrahilar region. Mild | | | dependent density in the lungs is consistent with atelectasis. A | | | mosaic pattern of attenuation is present in the mid to basilar lungs. | | | There is an 8 mm nodule in the posterior lateral right lower lobe | | | on image 69, and a 7 mm nodule is present in the posterior lateral | | | right costophrenic sulcus on image 106. A 2.5 mm lingular nodule is | | | present on image 85, and a 3.5 mm nodule is present in the posterior | | | left costophrenic sulcus on image 107. No consolidation or central | | | airway abnormality is evident. Coarse, bandlike opacity medially in | | | the right middle lobe favors atelectasis or scar. There is | | | non-specific localized, patchy sclerosis in the L1 vertebral body. A | | | small, rounded sclerotic focus is also visible left posterior | | | laterally in the T3 vertebral body. Additional sclerosis is | | | suggested within the C7 vertebral body and also inferiorly in the | | | sternal body. There is multilevel thoracic spondylosis. Few tiny, | | | rounded hypodensities are present in the imaged liver, measuring up | | | to 6 mm in size, the largest of which is near fluid attenuation, | | | favoring cysts. A 12 mm left adrenal nodule is present and | | | demonstrates low attenuation consistent with the presence of fat, | | | favoring a lipid rich adenoma. Imaged upper abdomen is otherwise | | | unremarkable. IMPRESSION - 1. NO EVIDENCE OF PULMONARY | | | EMBOLISM. 2. FOUR SMALL, NON-SPECIFIC PULMONARY NODULES | | | MEASURING UP TO [address] RECOMMEND FOLLOW-UP CT IN APPROXIMATELY THREE | | | MONTHS TO EVALUATE FOR STABILITY. CHANGES OF CENTRILOBULAR | | | EMPHYSEMA ARE PRESENT, ALONG WITH MOSAIC ATTENUATION POTENTIALLY | | | REFLECTING LOBULAR AIR TRAPPING. A MILDLY ENLARGED RIGHT HILAR | | | LYMPH NODE IS PRESENT. 3. NON-SPECIFIC SCLEROTIC REGIONS WITHIN | | | THE C7, T3 AND L1 VERTEBRAL BODIES AND STERNAL BODY. CONSIDER | | | FOLLOW-UP BONE SCAN. 4. SMALL HYPODENSITIES IN THE IMAGED LIVER, | | | THE LARGEST OF WHICH IS NEAR FLUID ATTENUATION, FAVORING HEPATIC | | | CYSTS. 5. 12 MM LOW-ATTENUATION LEFT ADRENAL NODULE FAVORING A | | | LIPID RICH ADENOMA. Dictated and Signed by: Hugo Godfrey MD | | | Electronically signed: 06/02/2016 1:29 PM | | + + + + + | Procedure Note | + + | Christopher, Rad Results In - 06/02/2016 1:[address] PULMONARY ANGIOGRAM 06/02/2016 12:39 | | PM CLINICAL HISTORY: pleuritic chest pain, r/o PE COMPARISON: Chest radiographs | | from the previous day TECHNIQUE: Axial images are performed through the chest following | | the uneventfulintravenous administration of 60 mL Omnipaque-350 contrast, with timing of | | thecontrast bolus optimized for opacification of the pulmonary arterial | | tree.Multiplanar reformations are also performed. FINDINGS: The study is of good | | quality, and demonstrates no visible fillingdefects within the pulmonary arterial tree | | to suggest the presence ofthromboembolic disease. Evaluation of the systemic | | vasculature is limited bytiming of this pulmonary angiographic exam, however early | | calcified plaqueformation is noted within the thoracic aorta. The mediastinum is | | otherwiseunremarkable. A mildly enlarged right hilar node measuring 1.2 cm short axis | | isnoted on image 65. No other enlarged nodes are visible. There is nopneumothorax or | | pleural effusion. A 5 mm rounded hypodensity is noted in theright thyroid lobe.Changes | | of centrilobular emphysema are present. A thin-walled bulla is presentin the left | | infrahilar region. Mild dependent density in the lungs isconsistent with atelectasis. | | A mosaic pattern of attenuation is present in themid to basilar lungs. There is an 8 mm | | nodule in the posterior lateral rightlower lobe on image 69, and a 7 mm nodule is | | present in the posterior lateralright costophrenic sulcus on image 106. A 2.5 mm | | lingular nodule is present onimage 85, and a 3.5 mm nodule is present in the posterior | | left costophrenicsulcus on image 107. No consolidation or central airway abnormality is | | evident. Coarse, bandlike opacity medially in the right middle lobe favors | | atelectasisor scar.There is non-specific localized, patchy sclerosis in the L1 vertebral | | body. Asmall, rounded sclerotic focus is also visible left posterior laterally in | | theT3 vertebral body. Additional sclerosis is suggested within the C7 vertebralbody and | | also inferiorly in the sternal body. There is multilevel thoracicspondylosis. Few | | tiny, rounded hypodensities are present in the imaged liver,measuring up to 6 mm in | | size, the largest of which is near fluid attenuation,favoring cysts. A 12 mm left | | adrenal nodule is present and demonstrates lowattenuation consistent with the presence | | of fat, favoring a lipid rich adenoma. Imaged upper abdomen is otherwise unremarkable. | | IMPRESSION - 1. NO EVIDENCE OF PULMONARY EMBOLISM.2. FOUR SMALL, NON-SPECIFIC | | PULMONARY NODULES MEASURING UP TO [address] REC[address]MEND[address]LLOW-UP CT IN APPROXIMATELY THREE | | MONTHS TO EVALUATE FOR STABILITY. CHANGESOF CENTRILOBULAR EMPHYSEMA ARE PRESENT, ALONG | | WITH MOSAIC ATTENUATIONPOTENTIALLY REFLECTING LOBULAR AIR TRAPPING. A MILDLY ENLARGED | | RIGHT HILARLYMPH NODE IS PRESENT.3. NON-SPECIFIC SCLEROTIC REGIONS WITHIN THE C7, T3 | | AND L1 VERTEBRAL BODIES ANDSTERNAL BODY. CONSIDER FOLLOW-UP BONE SCAN.4. SMALL | | HYPODENSITIES IN THE IMAGED LIVER, THE LARGEST OF WHICH IS NEAR FLUIDATTENUATION, | | FAVORING HEPATIC CYSTS.5. 12 MM LOW-ATTENUATION LEFT ADRENAL NODULE FAVORING A LIPID | | RICH ADENOMA.Dictated and Signed by: Hugo Godfrey MD Electronically signed: 06/02/2016 | | 1:29 PM | |attenuation consistent with the presence of fat, favoring a lipid rich adenoma. | |Imaged upper abdomen is otherwise unremarkable. | | | |IMPRESSION - | |1. NO EVIDENCE OF PULMONARY EMBOLISM. | | | |2. FOUR SMALL, NON-SPECIFIC PULMONARY NODULES MEASURING UP TO 8 MM. RECOMMEND | |FOLLOW-UP CT IN APPROXIMATELY THREE MONTHS TO EVALUATE FOR STABILITY. CHANGES | |OF CENTRILOBULAR EMPHYSEMA ARE PRESENT, ALONG WITH MOSAIC ATTENUATION | |POTENTIALLY REFLECTING LOBULAR AIR TRAPPING. A MILDLY ENLARGED RIGHT HILAR | |LYMPH NODE IS PRESENT. | | | |3. NON-SPECIFIC SCLEROTIC REGIONS WITHIN THE C7, T3 AND L1 VERTEBRAL BODIES AND | |STERNAL BODY. CONSIDER FOLLOW-UP BONE SCAN. | | | |4. SMALL HYPODENSITIES IN THE IMAGED LIVER, THE LARGEST OF WHICH IS NEAR FLUID | |ATTENUATION, FAVORING HEPATIC CYSTS. | | | |5. 12 MM LOW-ATTENUATION LEFT ADRENAL NODULE FAVORING A LIPID RICH ADENOMA. | | | |Dictated and Signed by: Hugo Godfrey MD | | Electronically signed: 06/02/2016 1:29 PM | + + + +---------+ + + | Performing | Address | City/State/Zipcode | Phone Number | | Organization | | | | + +---------+ + + | [facility] | | | | + +---------+ + + ECHO Complete (06/02/2016 7:29 AM PDT) + +-------+ + + + | Component | Value | Ref Range | Performed | Pathologist | | | | | At | Signature | + +-------+ + + + | LVEF-TTE | 72 | | | | | TRANSTHORAC | | | | | | IC ECHO | | | | | + +-------+ + + + + + | Specimen | + + | | + + + + -+ | Narrative | Performed At | + + -+ | Transthoracic | | | Echocardiography Report (TTE) Demographics Patient Name MINNA | | | OLENA Room Number 450 | | | ELEONORA Patient Number [id number] Date of Study | | | 06/02/2016 Visit Number [id number] | | | Referring Physician ANTONIO Maki Number Date of | | | 1960 [employer] ZUNILDA DILLON | | | Age 55 year(s) Interpreting | | | PAMELA GUTIERREZ MD | | | History Department Chair Gender Female Nurse Procedure | | | Type of Study TTE procedure: ECHO Complete. Procedure dateDate: | | | 06/02/2016Start: 06:58 AM Technical Quality: Adequate | | | visualizationStudy Location: ICUIndications: Chest Pain | | | 786.51/R07.2.Patient Status: STAT- Call BackHeight: 68 inchesWeight: | | | 198 poundsBSA: 2.04 m^2BMI: 30.11 kg/m^2HR: 81 bpm | | | ConclusionsSummarymildly dilated left atrium.No evidence of thrombus | | | or mass within left atrium.Left ventricle is normal in size and | | | function. Ejection fraction isestimated at 72 %.No evidence of | | | pericardial effusion.No evident pleural effusion | | | identified.Structurally normal mitral valve without significant | | | stenosis Ther is mildregurgitation.Trivial aortic regurgitation is | | | noted.Aortic valve appears trileaflet.Structurally normal tricuspid | | | valve with mild regurgitation.Structurally normal tricuspid valve with | | | mild regurgitation.normal estimated RV pressure of 27.1 + RA | | | pressureLeft ventricle is normal in size and function. Ejection | | | fraction isestimated at 72 %.Normal right atrium.Normal right | | | ventricular structure and function.Structurally normal mitral valve | | | without significant stenosis There is mildregurgitation.diastolic | | | dysfunction | | | Signature | | | | | | AM | | | -------- FindingsMitral ValveStructurally normal mitral valve without | | | significant stenosis There is mildregurgitation.diastolic | | | dysfunctionAortic ValveTrivial aortic regurgitation is noted.Aortic | | | valve appears trileaflet.Tricuspid ValveStructurally normal tricuspid | | | valve with mild regurgitation.normal estimated RV pressure of 27.1 + | | | RA pressurePulmonic Valvenot well seenLeft Atriummildly dilated left | | | atrium.No evidence of thrombus or mass within left atrium.Left | | | VentricleLeft ventricle is normal in size and function. Ejection | | | fraction isestimated at 72 %.Right AtriumNormal right atrium.Right | | | VentricleNormal right ventricular structure and function.Pericardial | | | EffusionNo evidence of pericardial effusion.Pleural EffusionNo evident | | | pleural effusion identified. Valves Mitral Valve Peak E-Wave: 0.86 | | | m/s CLAUDETTE PISA: 0.01 cm^2 Peak A-Wave: 0.68 m/s | | | Aortic Valve Area (continuity): 4.39 cm^2 Mean Gradient: | | | 2.74 mmHg Tricuspid Valve TR Velocity: 2.6 m/s LVOT Peak Velocity: | | | 0.96 m/s LVOT Diameter: 2.45 cm Structures Left Atrium LA A/P | | | Dimension: 3.85 cm LA Area: 21.78 cm^2 LA | | | Vol/BSA Index: 36 mL/m^2 LA Volume: 72.97 ml | | | Left Ventricle Diastolic Dimension: 5.52 cm Systolic | | | Dimension: 3.55 cm Septum Diastolic: 0.83 cm PW Diastolic: 0.83 cm EF | | | Calculated: 65.92% Miscellaneous Aorta Aortic Root: 2.87 cm | | | Ascending Aorta: 2.95 cm | | |Structurally normal mitral valve without significant stenosis There is mild | | |regurgitation. | | |diastolic dysfunction | | | | | |Signature | | | | | | Electronically signed by PAMELA GUTIERREZ MD(Interpreting physician) on | | | 06/02/2016 11:49 AM | | | | | | | | |Findings | | |Mitral Valve | | |Structurally normal mitral valve without significant stenosis There is mild | | |regurgitation. | | |diastolic dysfunction | | |Aortic Valve | | |Trivial aortic regurgitation is noted. | | |Aortic valve appears trileaflet. | | |Tricuspid Valve | | |Structurally normal tricuspid valve with mild regurgitation. | | |normal estimated RV pressure of 27.1 + RA pressure | | |Pulmonic Valve | | |not well seen | | |Left Atrium | | |mildly dilated left atrium. | | |No evidence of thrombus or mass within left atrium. | | |Left Ventricle | | |Left ventricle is normal in size and function. Ejection fraction is | | |estimated at 72 %. | | |Right Atrium | | |Normal right atrium. | | |Right Ventricle | | |Normal right ventricular structure and function. | | |Pericardial Effusion | | |No evidence of pericardial effusion. | | |Pleural Effusion | | |No evident pleural effusion identified. | | | | | |Valves | | | | | | Mitral Valve | | | | | | Peak E-Wave: 0.86 m/s CLAUDETTE PISA: 0.01 cm^2 | | | Peak A-Wave: 0.68 m/s | | | | | | Aortic Valve | | | | | | Area (continuity): 4.39 cm^2 | | | Mean Gradient: 2.74 mmHg | | | | | | Tricuspid Valve | | | | | | TR Velocity: 2.6 m/s | | | | | | LVOT | | | | | | Peak Velocity: 0.96 m/s | | | LVOT Diameter: 2.45 cm | | | | | |Structures | | | | | | Left Atrium | | | | | | LA A/P Dimension: 3.85 cm LA Area: 21.78 cm^2 | | | LA Vol/BSA Index: 36 mL/m^2 LA Volume: 72.97 ml | | | | | | Left Ventricle | | | | | | Diastolic Dimension: 5.52 cm Systolic Dimension: 3.55 cm | | | Septum Diastolic: 0.83 cm | | | PW Diastolic: 0.83 cm | | | EF Calculated: 65.92% | | | | | | Miscellaneous | | | | | | Aorta | | | | | | Aortic Root: 2.87 cm | | | Ascending Aorta: 2.95 cm | | | | | + + -+ + + | Procedure Note | + + | Andrea White Results In - 06/03/2016 12:04 PM PDT Transthoracic Echocardiography Report | | (TTE) Demographics Patient Name MINNA BONE Room Number 450 | | [place] Patient Number [id number] Date of Study 06/02/2016 Visit Number | | [id number] Referring Physician ANTONIO Maki | | Number 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 Ejection fraction | | isestimated at 72 %.No evidence of pericardial effusion.No evident pleural effusion | | identified.Structurally normal mitral valve without significant stenosis Ther is | | mildregurgitation.Trivial aortic regurgitation is noted.Aortic valve appears | | trileaflet.Structurally normal tricuspid valve with mild regurgitation.Structurally | | normal tricuspid valve with mild regurgitation.normal estimated RV pressure of 27.1 + RA | | pressureLeft ventricle is normal in size and function. Ejection fraction isestimated at | | 72 %.Normal right atrium.Normal right ventricular structure and function.Structurally | | normal mitral valve without significant stenosis There is mildregurgitation.diastolic | | dysfunctionSignature | | -------- Electronically signed by PAMELA GUTIERREZ MD(Interpreting physician) on | | 06/02/2016 11:49 | | AM FindingsMi | | tral ValveStructurally normal mitral valve without significant stenosis There is | | mildregurgitation.diastolic dysfunctionAortic ValveTrivial aortic regurgitation is | | noted.Aortic valve appears trileaflet.Tricuspid ValveStructurally normal tricuspid valve | | with mild regurgitation.normal estimated RV pressure of 27.1 + RA pressurePulmonic | | Valvenot well seenLeft Atriummildly dilated left atrium.No evidence of thrombus or mass | | within left atrium.Left VentricleLeft ventricle is normal in size and function. Ejection | | fraction isestimated at 72 %.Right AtriumNormal right atrium.Right VentricleNormal | | right ventricular structure and function.Pericardial EffusionNo evidence of pericardial | | effusion.Pleural EffusionNo evident pleural effusion identified.Valves Mitral Valve Peak | | E-Wave: 0.86 m/s CLAUDETTE PISA: 0.01 cm^2 Peak A-Wave: 0.68 m/s Aortic Valve | | Area (continuity): 4.39 cm^2 Mean Gradient: 2.74 mmHg Tricuspid Valve TR | | Velocity: 2.6 m/s LVOT Peak Velocity: 0.96 m/s LVOT Diameter: 2.45 cmStructures Left | | Atrium LA A/P Dimension: 3.85 cm LA Area: 21.78 cm^2 LA Vol/BSA Index: | | 36 mL/m^2 LA Volume: 72.97 ml Left Ventricle Diastolic Dimension: 5.52 cm | | Systolic Dimension: 3.55 cm Septum Diastolic: 0.83 cm PW Diastolic: 0.83 cm EF | | Calculated: 65.92% Miscellaneous Aorta Aortic Root: 2.87 cm Ascending Aorta: 2.95 cm | |Left ventricle is normal in size and function. Ejection fraction is | |estimated at 72 %. | |No evidence of pericardial effusion. | |No evident pleural effusion identified. | |Structurally normal mitral valve without significant stenosis Ther is mild | |regurgitation. | |Trivial aortic regurgitation is noted. | |Aortic valve appears trileaflet. | |Structurally normal tricuspid valve with mild regurgitation. | |Structurally normal tricuspid valve with mild regurgitation. | |normal estimated RV pressure of 27.1 + RA pressure | |Left ventricle is normal in size and function. Ejection fraction is | |estimated at 72 %. | |Normal right atrium. | |Normal right ventricular structure and function. | |Structurally normal mitral valve without significant stenosis There is mild | |regurgitation. | |diastolic dysfunction | | | |Signature | | | | Electronically signed by PAMELA GUTIERREZ MD(Interpreting physician) on | | 06/02/2016 11:49 AM | | | | | |Findings | |Mitral Valve | |Structurally normal mitral valve without significant stenosis There is mild | |regurgitation. | |diastolic dysfunction | |Aortic Valve | |Trivial aortic regurgitation is noted. | |Aortic valve appears trileaflet. | |Tricuspid Valve | |Structurally normal tricuspid valve with mild regurgitation. | |normal estimated RV pressure of 27.1 + RA pressure | |Pulmonic Valve | |not well seen | |Left Atrium | |mildly dilated left atrium. | |No evidence of thrombus or mass within left atrium. | |Left Ventricle | |Left ventricle is normal in size and function. Ejection fraction is | |estimated at 72 %. | |Right Atrium | |Normal right atrium. | |Right Ventricle | |Normal right ventricular structure and function. | |Pericardial Effusion | |No evidence of pericardial effusion. | |Pleural Effusion | |No evident pleural effusion identified. | | | |Valves | | | | Mitral Valve | | | | Peak E-Wave: 0.86 m/s CLAUDETTE PISA: 0.01 cm^2 | | Peak A-Wave: 0.68 m/s | | | | Aortic Valve | | | | Area (continuity): 4.39 cm^2 | | Mean Gradient: 2.74 mmHg | | | | Tricuspid Valve | | | | TR Velocity: 2.6 m/s | | | | LVOT | | | | Peak Velocity: 0.96 m/s | | LVOT Diameter: 2.45 cm | | | |Structures | | | | Left Atrium | | | | LA A/P Dimension: 3.85 cm LA Area: 21.78 cm^2 | | LA Vol/BSA Index: 36 mL/m^2 LA Volume: 72.97 ml | | | | Left Ventricle | | | | Diastolic Dimension: 5.52 cm Systolic Dimension: 3.55 cm | | Septum Diastolic: 0.83 cm | | PW Diastolic: 0.83 cm | | EF Calculated: 65.92% | | | | Miscellaneous | | | | Aorta | | | | Aortic Root: 2.87 cm | | Ascending Aorta: 2.95 cm | + + CBC with Differential (06/02/2016 5:47 AM PDT) + + + + + + | Component | Value | Ref Range | Performed | Pathologist | | | | | At | Signature | + + + + + + | White Blood | 8.7 | 4.0 - 11.0 K/uL | [facility] | | | Cells | | | [facility] | | | | | | [facility] | | | | | | [facility] - | | | | | | LABORATORY | | + + + + + + | Red Blood | 4.20 | 3.70 - 5.20 | [facility] | [...] + + + + | Hematocrit | 37.9 | 34.0 - 47.0 % | [facility] | | | | | | [facility] | | | | | | [facility] | | | | | | [facility] - | | | | | | LABORATORY | | + + + + + + | MCV | 90.2 | 83.0 - 101.0 fL | [facility] | | | | | | [facility] | | | | | | [facility] | | | | | | [facility] - | | | | | | LABORATORY | | + + + + + + | MCH | 31.1 | 28.0 - 35.0 pg | [facility] | | | | | | [facility] | | | | | | [facility] | | | | | | [facility] - | | | | | | LABORATORY | | + + + + + + | MCHC | 34.4 | 32.0 - 36.0 | [facility] | | | | | g/dL | [facility] | | | | | | [facility] | | | | | | CENTER - | | | | | | LABORATORY | | + + + + + + | RDW-CV | 13.1 | <15.0 % | [facility] | | | | | | [facility] | | | | | | [facility] | | | | | | [facility] - | | | | | | LABORATORY | | + + + + + + | Platelet | 258 | 140 - 440 K/uL | [facility] | | | Count | | | [facility] | | | | | | [facility] | | | | | | [facility] - | | | | | | LABORATORY | | + + + + + + | MPV | 8.5 | fL | [facility] | | | | | | [facility] | | | | | | [facility] | | | | | | [facility] - | | | | | | LABORATORY | | + + + + + + | % | 46.1 | 45.0 - 82.0 % | [facility] | | | Neutrophils | | | [facility] | | | | | | [facility] | | | | | | C[facility] - | | | | | | LABORATORY | | + + + + + + | % | 43.0 | 20.0 - 45.0 % | [facility] | | | Lymphocytes | | | [facility] | | | | | | [facility] | | | | | | [facility] - | | | | | | LABORATORY | | + + + + + + | % Monocytes | 6.9 | 4.0 - 12.0 % | [facility] | | | | | | [facility] | | | | | | [facility] | | | | | | [facility] - | | | | | | LABORATORY | | + + + + + + | % | 3.3 | 0.0 - 5.0 % | [facility] | | | Eosinophils | | | [facility] | | | | | | [facility] - | | | | | | LABORATORY | | + + + + + + | % Basophils | 0.7 | 0.0 - 1.0 % | [facility] | | | | | | [facility] | [facility] | | | | | | [facility] - | | | | | | LABORATORY | | + + + + + + | Absolute | 4.00 | 1.80 - 8.50 | [facility] | | | Neutrophils | | K/uL | [facility] | | | | | | [facility] | | | | | | CENTER - | | | | | | LABORATORY | | + + + + + + | Absolute | 3.80 (H) | 0.60 - 3.20 | [facility] [...] [address] | [place] | [phone] | | [facility] | | [address] | | | - LABORATORY | | | | + + + + + Basic Metabolic Panel (06/02/2016 5:47 AM PDT) + + + + + [...] + + + | Anion Gap | 6 | 3 - 16 mmol/L | [facility] | | | | [facility] | | | | | | [facility] | | | | | | [facility] - | | | | | | LABORATORY | | + + + + + + | Glucose | 101 | 70 - 109 mg/dL | [facility] [...] + + | Creatinine | 0.93 | 0.60 - 1.30 | [facility] | | | | | mg/dL | [facility] | | [facility] | [facility] | | | | | | [facility] - | | | | | | LABORATORY | | + + + + + + | eGFR, | >60Comment: GLOMERULAR | >=60 | [facility] | | | non- | FILTRATION | mL/min/1.73m2 | [facility] | | | [place] | RATE,ESTIMATED | | MEDICAL | | | | mL/min/1.38m3Siop than | | CENTER - | | [...] + + + + | Calcium | 8.7 | 8.3 - 10.5 | [facility] | | | | | mg/dL | [facility] | | | | | | [facility] | | | | | | CENTER - | | | | | | LABORATORY | | + + + + + + | BUN/Creatin | 12.9 | | [facility] | | | ine Ratio | | | [facility] | | | | | | [...] + | [facility] | [address] | [place] | [phone] | | [facility] | | [address] | | | - LABORATORY | | | | + + + + + Lipid Panel (06/02/2016 5:47 AM PDT) + + + + + + | Component | Value | Ref Range | Performed | Pathologist | | | | | At | Signature | + + + + + + | Triglycerid | 115 | 35 - 160 mg/dL | [facility] | | | es | | | [facility] | | | | | | [facility]ICAL | | | | | | CENTER - | | | | | | LABORATORY | | + + + + + + | Cholesterol | 231 (H) | 150 - 200 mg/dL | [facility] | | | | | | [facility] | | | | | | [facility]ICAL | | | | | | CENTER - | | | | | | LABORATORY | | + + + + + + | HDL | 34Comment: New HDL | 28 - 83 mg/dL | [facility] | | | | Reference Range as of | | [facility] | | | | July 11, 2015 | | MEDICAL | | | | Values may be 10-20% | | CENTER - | | | | lower with new, | | LABORATORY | | | | standardized method. | | | | + + + + + + | Chol/HDL | 6.8 | | [facility] | | | Ratio | | | [facility] | | | | | | MEDICAL | | | | | | CENTER - | | | | | | LABORATORY | | + + + + + + | LDL, | 174 (H) | <=130 mg/dL | [facility] | | | Calculated | | | [facility] | | [...] [address] | [place] | [phone] | | [facility] | | [address] | | | - LABORATORY | | | | + + + + + Sedimentation Rate (06/02/2016 5:47 AM PDT) + +-------+ + + + | Component | Value | Ref Range | Performed | Pathologist | | | | | At | Signature | + +-------+ + + + | Erythrocyte | 12 | <30 mm/hr | [facility] | | | | | | [facility] | | | Sedimentati | | | MEDICAL | | | on Rate | | | CENTER - | | [...] [address] | [place] | [phone] | | [facility] | | [address] | | | - LABORATORY | | | | + + + + + C-Reactive Protein (06/02/2016 5:47 AM PDT) + +-------+ + + + | Component | Value | Ref Range | Performed | Pathologist | | | | | At | Signature | + +-------+ + + + | CRP | 3.13 | <8.00 mg/L | [facility] | | | | | [...] + | [facility] | [address] | [place] | [phone] | | [facility] | | [address] | | | - LABORATORY | | | | + + + + + Magnesium (06/02/2016 5:47 AM PDT) + +-------+ + + + | Component | Value | Ref Range | Performed | Pathologist | | | | | At | Signature | + +-------+ + + + | Magnesium | 2.0 | 1.8 - 2.5 mg/dL | [facility] | | | | | | [facility] [...] [address] | [place] | [phone] | | [facility] | | [address] | | | - LABORATORY | | | | + + + + + Troponin I (06/02/2016 5:47 AM PDT) + + + + + + | Component | Value | Ref Range | Performed | Pathologist | | | | | At | Signature | + + + + + + | Troponin I | <0.01Comment: Reference | <0.06 ng/mL | [facility] | | | | Ranges:0.00-0.06 = | | [facility] | | | | NORMAL>0.06 = | | MEDICAL | | | | SUSPICIOUS FOR | | CENTER - | | | | MYOCARDIAL DAMAGE NOTE: | | LABORATORY | | | | Values greater than 0.50 | | | | | | ng/mL have been shown | | | | | | to be strongly | | | | | | associated with acute | | | | | | myocardial infarction. | | | | | | The [employer] | | | | | | [employer] ([employer]) | | | | | | recommends a decision | | | | | | limit of 0.06 ng/mL for | | | | | | this assay. Results | | | | | | greater than 0.06 can | | | | | | reflect a pre-infarct | | | | | | acute coronary syndrome, | | | | | | but can also reflect | | | | | | myocardial necrosis or | | | | | | injury that is not due | | | | | | to coronary artery | | | | | | disease. Some of these | | | | | | causes are sepsis, | | | | | | hypocolemia, atrial | | | | | | fibrillation, heart | | | | | | failure, pulmonary | | | | | | embolism, myocarditis, | | | | | | myocardial contusion, | | | | | | and renal failure. The | | | | | | diagnosis of myocardial | | | | | | infarction should be | | | | | | based on a combination | | | | | | of the patient's | | | | | | clinical presentation | | | | | | and the clinical | | | | | | laboratory test results | | | | | | (especially serial | | | | | | troponin levels). | | | | + + + + + + + + | Specimen | + + | Blood | + + + + + + + | Performing | Address | City/State/Zipcode | Phone Number | | Organization | | | | + + + + + | [facility] | [address] | [place] | [phone] | | [facility] | | [address] | | | - LABORATORY | | | | + + + + + Troponin I (06/01/2016 11:38 PM PDT) + + + + + + | Component | Value | Ref Range | Performed | Pathologist | | | | | At | Signature | + + + + + + | Troponin I | 0.01Comment: Reference | <0.06 ng/mL | [facility] | | | | Ranges:0.00-0.06 = | | [facility] | | | | NORMAL>0.06 = | | MEDICAL | | | | SUSPICIOUS FOR | | CENTER - | | | | MYOCARDIAL DAMAGE NOTE: | | LABORATORY | | | | Values greater than 0.50 | | | | | | ng/mL have been shown | | | | | | to be strongly | | | | | | associated with acute | | | | | | myocardial infarction. | | | | | | The [employer] | | | | | | [employer] (ACC) | | | | | | recommends a decision | | | | | | limit of 0.06 ng/mL for | | | | | | this assay. Results | | | | | | greater than 0.06 can | | | | | | reflect a pre-infarct | | | | | | acute coronary syndrome, | | | | | | but can also reflect | | | | | | myocardial necrosis or | | | | | | injury that is not due | | | | | | to coronary artery | | | | | | disease. Some of these | | | | | | causes are sepsis, | | | | | | hypocolemia, atrial | | | | | | fibrillation, heart | | | | | | failure, pulmonary | | | | | | embolism, myocarditis, | | | | | | myocardial contusion, | | | | | | and renal failure. The | | | | | | diagnosis of myocardial | | | | | | infarction should be | | | | | | based on a combination | | | | | | of the patient's | | | | | | clinical presentation | | | | | | and the clinical | | | | | | laboratory test results | | | | | | (especially serial | | | | | | troponin levels). | | | | + + + + + + + + | Specimen | + + | Blood | + + + + + + + | Performing | Address | City/State/Zipcode | Phone Number | | Organization | | | | + + + + + | [facility] | [address] | [place], [place] | [phone] | | [facility] | | [address] | | | - LABORATORY | | | | + + + + + XR Chest PA and Lateral (06/01/2016 8:44 PM PDT) + + | Specimen | + + | | + + + + + | Narrative | Performed At | + + + | XR CHEST PA AND LATERAL 06/01/2016 8:44 PM HISTORY: pleuritic | [facility] | | chest pain. COMPARISON: None. Findings: Heart size is within | | | normal limits. Aorta is normal. Mediastinum is unremarkable. Central | | | pulmonary vasculature is normal. A small faint nodular density is in | | | the right midlung. A tiny faint nodular density is in the left | | | midlung. No pleural effusion or pneumothorax is seen. There is mild | | | spondylosis. IMPRESSION - Faint nodular densities of bilateral | | | midlungs. These could represent vasculature. A follow-up chest x-ray | | | can be obtained in 2-3 months for further evaluation if clinically | | | indicated. Dictated and Signed by: Iftikhar Larios MD | | | Electronically signed: 06/02/2016 9:14 AM | | + + + + + | Procedure Note | + + | Christopher, Rad Results In - 06/02/2016 9:17 AM PDT XR CHEST PA AND LATERAL 06/01/2016 8:44 | | PMHISTORY: pleuritic chest pain.COMPARISON: None.Findings:Heart size is within normal | | limits. Aorta is normal. Mediastinum isunremarkable. Central pulmonary vasculature is | | normal. A small faint nodulardensity is in the right midlung. A tiny faint nodular | | density is in the leftmidlung. No pleural effusion or pneumothorax is seen. There is | | mild spondylosis.IMPRESSION -Faint nodular densities of bilateral midlungs. These could | | representvasculature. A follow-up chest x-ray can be obtained in 2-3 months for | | furtherevaluation if clinically indicated.Dictated and Signed by: Iftikhar Larios MD | | Electronically signed: 06/02/2016 9:14 AM | |density is in the right midlung. A tiny faint nodular density is in the left | |midlung. No pleural effusion or pneumothorax is seen. There is mild spondylosis. | | | |IMPRESSION - | |Faint nodular densities of bilateral midlungs. These could represent | |vasculature. A follow-up chest x-ray can be obtained in 2-3 months for further | |evaluation if clinically indicated. | | | |Dictated and Signed by: Iftikhar Larios MD | | Electronically signed: 06/02/2016 9:14 AM | + + + +---------+ + + | Performing | Address | City/State/Zipcode | Phone Number | | Organization | | | | + +---------+ + + | [facility] | | | | + +---------+ + + Basic Metabolic Panel (06/01/2016 5:56 PM PDT) + + + + + [...] + + + + | Glucose | 105 | 70 - 109 mg/dL | [facility] | | | | | | [facility] | | | | | | MEDICAL | | | | | | CENTER - | | | | | | LABORATORY | | + + + + + + | BUN | 9 | 7 - 18 mg/dL | [facility] [...] | mL/min/1.73m2 | [facility] | | | [place] | RATE,ESTIMATED | | MEDICAL | | | | mL/min/1.01y7Rgrx than | | CENTER - | | [...] + + + + | BUN/Creatin | 9.0 | | [facility] | | | ine [...] [address] | [place] | [phone] | | [facility] | | [address] | | | - LABORATORY | | | | + + + + + Sedimentation Rate (06/01/2016 5:56 PM PDT) + +-------+ + + + | Component | Value | Ref Range | Performed | Pathologist | | | | | At | Signature | + +-------+ + + + | Erythrocyte | 13 | <30 mm/hr | [facility] | | | | | | [facility] | | | Sedimentati | | | MEDICAL | | | on Rate | | | CENTER - | | [...] [address] | [place] | [phone] | | [facility] | | [address] | | | - LABORATORY | | | | + + + + + C-Reactive Protein (06/01/2016 5:56 PM PDT) + +-------+ + + + | Component | Value | Ref Range | Performed | Pathologist | | | | | At | Signature | + +-------+ + + + | CRP | 3.29 | <8.00 mg/L | [facility] | | | | | [...] + | [facility] | [address] | [place] | [phone] | | [facility] | | [address] | | | - LABORATORY | | | | + + + + + Troponin I (06/01/2016 5:56 PM PDT) + + + + + + | Component | Value | Ref Range | Performed | Pathologist | | | | | At | Signature | + + + + + + | Troponin I | 0.01Comment: Reference | <0.06 ng/mL | [facility] | | | | Ranges:0.00-0.06 = | | [facility] | | | | NORMAL>0.06 = | | MEDICAL | | | | SUSPICIOUS FOR | | CENTER - | | | | MYOCARDIAL DAMAGE NOTE: | | LABORATORY | | | | Values greater than 0.50 | | | | | | ng/mL have been shown | | | | | | to be strongly | | | | | | associated with acute | | | | | | myocardial infarction. | | | | | | The [employer] | | | | | | [employer] ([employer]) | | | | | | recommends a decision | | | | | | limit of 0.06 ng/mL for | | | | | | this assay. Results | | | | | | greater than 0.06 can | | | | | | reflect a pre-infarct | | | | | | acute coronary syndrome, | | | | | | but can also reflect | | | | | | myocardial necrosis or | | | | | | injury that is not due | | | | | | to coronary artery | | | | | | disease. Some of these | | | | | | causes are sepsis, | | | | | | hypocolemia, atrial | | | | | | fibrillation, heart | | | | | | failure, pulmonary | | | | | | embolism, myocarditis, | | | | | | myocardial contusion, | | | | | | and renal failure. The | | | | | | diagnosis of myocardial | | | | | | infarction should be | | | | | | based on a combination | | | | | | of the patient's | | | | | | clinical presentation | | | | | | and the clinical | | | | | | laboratory test results | | | | | | (especially serial | | | | | | troponin levels). | | | | + + + + + + + + | Specimen | + + | Blood | + + + + + + + | Performing | Address | City/State/Zipcode | Phone Number | | Organization | | | | + + + + + | [facility] | [address] | [place] | [phone] | | [facility] | | [address] | | | - LABORATORY | | | | + + + + + ECG 12 lead (06/01/2016 5:48 PM PDT) + + + + + + | Component | Value | Ref Range | Performed | Pathologist | | | | | At | Signature | + + + + + + | VENTRICULAR | 79 | BPM | [facility] | | | RATE EKG | | | | | + + + + + + | ATRIAL RATE | 79 | BPM | [facility] | | + + + + + + | P-R | 140 | ms | [facility] | | | INTERVAL | | | | | + + + + + + | QRS | 84 | ms | [facility] | | | DURATION | | | | | + + + + + + | Q-T | 384 | ms | [facility] | | | INTERVAL | | | | | + + + + + + | Q-T | 440 | ms | [facility] | | | INTERVAL | | | | | | (CORRECTED) | | | | | + + + + + + | P WAVE AXIS | 61 | degrees | [facility] | | + + + + + + | QRS AXIS | 49 | degrees | [facility] | | + + + + + + | T AXIS | 66 | degrees | [facility] | | + + + + + + | INTERPRETAT | Normal sinus | | [facility] | | | ION TEXT | rhythmNormal ECGNo | | | | | | previous ECGs | | | | | | availableConfirmed by | | | | | | REJI MARC MD ([id number]) | | | | | | on 06/02/2016 8:44:17 AM | | | | + + + + + + + + | Specimen | + + | | + + + + + | Narrative | Performed At | + + + | | | + + + + +---------+ + + | Performing | Address | City/State/Zipcode | Phone Number | | Organization | | | | + +---------+ + + | [facility] | | | | + +---------+ + + Culture, MRSA (06/01/2016 5:28 PM PDT) + + + + + [...] + + + + + | [facility] | [address] | [place] | [phone] | | [facility] | | [address] | | | - LABORATORY | | | | + + + + + LABS - EXTERNAL SCAN (06/01/2016 12:00 AM PDT) + + + | Narrative | Performed At | + + + | Ordered by an | | | unspecified provider. | | + + + NUCLEAR CARDIOLOGY - EXTERNAL SCAN (06/01/2016 12:00 AM PDT) + + + | Narrative | Performed At | + + + | Ordered by an | | | unspecified provider. | | + + + ECG - EXTERNAL SCAN (06/01/2016 12:00 AM PDT) + + + | Narrative | Performed At | + + + | Ordered by an | | | unspecified provider. | | + + + documented in this encounter Visit Diagnoses + + | Diagnosis | + + | Precordial pain - Primary | + + | Abnormal stress ECG with treadmill Other nonspecific abnormal cardiovascular system | | function study | + + | Cigarette smoker one half pack a day or less Tobacco use disorder | + + | Insomnia Insomnia, unspecified | + + documented in this encounter Administered Medications + +--------+ +--------+------+------+ | Medication Order | MAR | Action | Dose | Rate | Site | | | Action | Date | | | | + +--------+ +--------+------+------+ | acetaminophen (TYLENOL) tablet | Given | 06/01/20 | 650 mg | | | | 650 mg 650 mg, Oral, EVERY 4 | | 16 9:01 | | | | | HOURS PRN, Pain, or fever >= 38.3 | | PM PDT | | | | | C (101.5 F), Starting 06/01/16 | | | | | | | at 1758 | | | | | | + +--------+ +--------+------+------+ +---+---+ | | | +---+---+ + +-------+ +-------+---+---+ | aspirin chewable tablet 81 mg | Given | 06/02/20 | 81 mg | | | | 81 mg, Oral, DAILY, First dose on | | 16 8:46 | | | | | 06/02/16 at 0900, Retime first | | AM PDT | | | | | dose to TOMORROW if patient has | | | | | | | already received a dose of | | | | | | | aspirin TODAY., | | | | | | + +-------+ +-------+---+---+ +---+---+ | | | +---+---+ + +-------+ +--------+---+---+ | fentaNYL (PF) injection 25 mcg | Given | 06/02/20 | 25 mcg | | | | 25 mcg, Intravenous, EVERY 2 | | 16 1:13 | | | | | HOURS PRN, Severe Pain, Starting | | PM PDT | | | | | 06/01/16 at 1920 | | | | | | + +-------+ +--------+---+---+ +-------+ +--------+---+---+ | Given | 06/02/20 | 25 mcg | | | | | 16 5:52 | | | | | | AM PDT | | | | +-------+ +--------+---+---+ | Given | 06/01/20 | 25 mcg | | | | | 16 11:53 | | | | | | PM PDT | | | | +-------+ +--------+---+---+ +---+---+ | | | +---+---+ + +-------+ +-------+---+---+ | indomethacin (INDOCIN) capsule | Given | 06/02/20 | 50 mg | | | | 50 mg 50 mg, Oral, 3 TIMES DAILY | | 16 3:15 | | | | | WITH MEALS, First dose on e | | PM PDT | | | | | 06/02/16 at 1515, Give with food., | | | | | | + +-------+ +-------+---+---+ +---+---+ | | | +---+---+ + +-------+ +--------+---+---+ | iohexol (OMNIPAQUE 350) 350 | Given | 06/02/20 | 60 mLs | | | | mg/mL injection 60 mL 60 mL, | | 16 12:40 | | | | | Intravenous, ONCE PRN, Other, for | | PM PDT | | | | | imaging CT study, Starting Wed | | | | | | | 06/02/16 at 1220, For 1 dose, | | | | | | | Radiology | | | | | | + +-------+ +--------+---+---+ +---+---+ | | | +---+---+ + +------+ +--------+-------+---+ | sodium chloride 0.9% (NS) bolus | Push | 0802/20 | 50 mLs | 3000 | | | 50 mL 50 mL, Intravenous, | | 16 12:40 | | mL/hr | | | Administer over 1 Minutes, ONCE | | PM PDT | | | | | PRN, for imaging CT study, | | | | | | | Starting 06/02/16 at 1220, For | | | | | | | 1 dose, Radiology | | | | | | + +------+ +--------+-------+---+ +---+---+ | | | +---+---+ + +---------+ +---+ +---+ | sodium chloride 0.9% (NS) | New Bag | 06/01/20 | | 50 mL/hr | | | infusion at 50 mL/hr, | | 16 7:38 | | | | | Intravenous, CONTINUOUS, Starting | | PM PDT | | | | | 06/01/16 at 1815 | | | | | | + +---------+ +---+ +---+ +---+---+ | | | +---+---+ + +-------+ +-------+---+---+ | traMADol (ULTRAM) tablet 50 mg | Given | 06/02/20 | 50 mg | | | | 50 mg, Oral, EVERY 6 HOURS PRN, | | 16 11:50 | | | | | Pain, Starting 06/01/16 at 1755 | | AM PDT | | | | + +-------+ +-------+---+---+ +-------+ +-------+---+---+ | Given | 06/02/20 | 50 mg | | | | | 16 3:59 | | | | | | AM PDT | | | | +-------+ +-------+---+---+ +---+---+ | | | +---+---+ + +-------+ +-------+---+---+ | zolpidem (AMBIEN) tablet 10 mg | Given | 06/01/20 | 10 mg | | | | 10 mg, Oral, NIGHTLY PRN, | | 16 11:58 | | | | | Insomnia, Starting Wed06/01/16 at | | PM PDT | | | | | 1755 | | | | | | + +-------+ +-------+---+---+ +---+---+ | | | +---+---+ documented in this encounter
--- OUTSIDE RECORDS SUMMARY | ~2020-07-17 | XMS | Encounter Summary ---
Demographics + + + | Address | [address] | | | [place] [address] | + + + | Home Phone [...] Team Providers + +------+ + | Care Metaphysician Name | Role | Phone | + +------+ + | Zuleyka Martínez | PCP | | + +------+ + Encounter Details +--------+ + + + + | Date | Type | Department | Care Team | Description | +--------+ + + + + | 02/18/ | Orders Only | [facility] | Lemuel Da Silva DO | Brain mass (Primary | | 2020 | | NEUROSURGERY [address] | Dx); Malignant | | | | [address] | [address] | neoplasm of lower | | | | [place], [place] | [place] [address] | lobe of right lung | | | | [address] | [phone] | (HCC) | | | | [phone] | | | +--------+ + + + [...] | | | | [place] | | | | | | [address] | | | | | | | [...]
--- OUTSIDE RECORDS SUMMARY | ~2020-07-17 | XMS | Encounter Summary ---
Demographics + + + | Address | [address] | | | [place] [address] | + + + | Home Phone [...] Providers + +------+ + | Care Director Of Casework Name | Role | Phone | + +------+ + | Zuleyka Martínez | PCP | | + +------+ + Reason for Visit +--------+--------+ + | Reason | Onset | Comments | | | Date | | +--------+--------+ + | Other | 05/06/ | | | | 2017 | | +--------+--------+ + Encounter Details +--------+ + + + + | Date | Type | Department | Care Team | Description | +--------+ + + + + | 05/06/ | Telephone | [facility] | Milton Salazar | Other | | 2017 | | [facility] | MD Bebeto [address] | | | | | [facility]OGY CLINIC [address] | [facility] | | | | | [address] | [place] [address] | | | | | [place] [address] | [phone] | | | | | [phone] | | | +--------+ + + + [...] Telephone Encounter - Cassi Pulido RN - 05/06/2017 10:46 AM PDTSpoke to Olena and mikhail wagner her lab results per Dr. Vargas. She verbalized the information. elephone Encounter - Keisha Ferreira - 04/2017 9:30 AM PDTPatient called stating she was returning a call to Cassi in Radiation T herapy. She would appreciate a call back. Thank You documented in this encounter Plan of Treatment [...] [place] | | | | | | [id number] | | | | | | | | +--------+ + + + + documented as of this encounter Visit Diagnoses Not on filedocumented in this encounter"
--- OUTSIDE RECORDS SUMMARY | ~2020-07-17 | XMS | Encounter Summary ---
Demographics + + + | Address | [address] | | | [place] [address] | + + + | Home Phone | | + + + | Preferred Language | Unknown | + + + | Marital Status | Single | + + + | Taoism Affiliation | Unknown | + + + [...] Team Providers + +------+ + | Care Environmental Quality Analyst Name | Role | Phone | [...] (HCC) (Primary Dx) | | | | [place], | | | | | | [place] [address] | | | | | | [phone] | | | +--------+ + + + [...] [place] | | | | | | [address] | | | | | | | | +--------+ + + + + documented as of this encounter Visit Diagnoses + + | Diagnosis | + + | Malignant neoplasm of thyroid gland (HCC) - Primary Malignant neoplasm of thyroid | | gland | + + documented in this encounter"
--- OUTSIDE RECORDS SUMMARY | ~2020-07-17 | XMS | Encounter Summary ---
Demographics + + + | Address | [address] | | | [place] [address] | + + + | Home Phone [...] Providers + +------+ + | Care Print Finishing Worker Name | Role | Phone | + +------+ + | Zuleyka Martínez | PCP | | + +------+ + Encounter Details +--------+ + + + + | Date | Type | Department | Care Team | Description | +--------+ + + + + | 09/06/ | Hospital | [facility] | Susie Montemayor | | | 2019 | Encounter | MED [facility] RADIATION | Jared, [address] | | | | | ONCOLOGY [address] | [address] [place], [place] | | | | | [place], | [address] | | | | | [place] [address] | | | | | | [phone] | | | +--------+ + + + [...] | | | | | | [place] | | | | | | [address] | | | | | | | | +--------+ + + + + documented as of this encounter Visit Diagnoses Not on filedocumented in this encounter"
--- OUTSIDE RECORDS SUMMARY | ~2020-07-17 | XMS | Encounter Summary ---
Demographics + + + | Address | [address] | | | [place] [address] | + + + | Home Phone [...] Team Providers + +------+ + | Care Kettle Loader Name | Role | Phone | [...] | | ONCOLOGY CLINIC [address] | [place], [place] | | | | | [address] | [address] | | | | | [place] [address] | | | | | | [phone] | | | +--------+ + + + [...] [place] | | | | | | [address] | | | | | | | | +--------+ + + + + documented as of this encounter Visit Diagnoses Not on filedocumented in this encounter"
--- OUTSIDE RECORDS SUMMARY | ~2020-07-17 | XMS | Encounter Summary ---
Demographics + + + | Address | [address] | | | [place] [address] | + + + | Home Phone | | + + + | Preferred Language | Unknown | + + + | Marital Status | Single | + + + | Protestant Affiliation | Unknown | + + + [...] Providers + +------+ + | Care Drill Runner Name | Role | Phone | + [...] + + + + | 08/31/ | [facility] | [facility] | Milton Salazar | Non-small cell | | 2017 | Encounter | [facility] | MD Bebeto [address] | cancer of right lung | | | | ONCOLOGY CLINIC [address] | [address] [place] | (HCC) (Primary Dx); | | | | [address] [facility] | [place] [address] | Malignant neoplasm | | | | [place] [address] | [phone] | of thyroid gland | | | | [phone] | | (HCC) | +--------+ + + [...] erent from the original. Hem-Onc Progress Note [facility] Pt. Name/Age/: Olena Rider 56 y.o. 1960 Med. Record Number: [id number] Date of admission: 08/31/2017 Assessment and plan: [...] . This is going to be at [facility]. PSH: Reviewed, no changes to admission H&P. [...] Electronically signed by: Milton Salazar, 08/31/2017 13:26 [facility] TIME SPENT 25 MIN. > 50% AT BEDSIDE, WITH FAMILY/PATIENT IN CARE AND GARMENT INSPECTOR ON UNIT AND CO ORDINATION OF CARE Portions of this chart may have been created with [employer] voice recognition software. Occasi onal wrong-word or [...] | | | | [facility] [place] | | | | | | [address] [...] [address] | Shakila JhaveriERIC | [phone] | | [facility] | | [address] | | | - LABORATORY | | [...] eGFR, | 56 (L)Comment: | >=60 | [facility] | | | non- | GLOMERULAR FILTRATION | mL/min/1.73m2 | [facility] | | | Faroese | RATE,ESTIMATED | | MEDICAL | | | | mL/min/1.76z1Gilr than | | CENTER - | | [...] | | | | | mg/dL | [facility] | | | | | | [...] [address] | [place] | [phone] | | [facility] | | [address] | | | - LABORATORY | | [...] | | Cells | | M/uL | . JOCE | | | | [...] | | Eosinophils | | K/uL | . JOCE | | | | [...] ST. | [address] | [place] | [phone] | | [facility] | | [address] | | | - LABORATORY | | [...]
--- OUTSIDE RECORDS SUMMARY | ~2020-07-17 | XMS | Encounter Summary ---
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 | MD [address] | [place], | | | | | ma of brain | [address] | [place] | | | | | (HCC) | [place], | [address] | | | | | Procedures | [place] [address] | Phone: | | | | | MRI Brain w | Phone: | [phone] | | | | | wo Contrast | [phone] | Fax: | | | | | | Fax: | [phone] | | | | | | [phone] | | +--------+--------+ + + + + Reason for Visit Diagnostic/Screening (Urgent) +--------+--------+ + + + + | Status | Reason | Specialty | Diagnoses / | Referred By | Referred To | | | | | Procedures | Contact | Contact | +--------+--------+ + + + + | Closed | | Radiology | Diagnoses | Albina, | [facility] | | | | | Secondary | Susie Coleman, | [address] | | | | | adenocarcino | [address] | [place], | | | | | ma of brain | [address] | [place] | | | | | (HCC) | [place], | [address] | | | | | Procedures | [place] [address] | Phone: | | | | | MRI Brain w | Phone: | [phone] | | | | | wo Contrast | [phone] | Fax: | | | | | | Fax: | [phone] | | | | | | [phone] | | +--------+--------+ + + + + Encounter Details +--------+ + + + + | Date | Type | Department | Care Team | Description | +--------+ + + + + | 03/11/ | Hospital | [facility] | Susie Montemayor | 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, [address]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 | + +--------+ [...] PM HISTORY: | [facility] | | Brain/FRETTED INSTRUMENT REPAIRER neoplasm, staging COMPARISON: MRI 01/22/2020. CT | [...] CONTRAST dated | | 03/11/2020 3:45 PMHISTORY: Brain/FRETTED INSTRUMENT REPAIRER neoplasm, stagingCOMPARISON: MRI 01/22/2020. CT | | [...] | gadobutrol (GADAVIST) injection | Given | 03/11/20 | 8 mLs | | | | 8 mL 8 mL, Intravenous, ONCE | | 20 4:25 | | | | | PRN, Other, Starting 03/11/20 | | PM PDT | | | | | at 1625, For 1 dose, MRI | | | | | | + +--------+ +-------+------+------+ +---+---+ | | | +---+---+ documented in this encounter"
--- OUTSIDE RECORDS SUMMARY | ~2020-07-17 | XMS | Encounter Summary ---
Demographics + + + | Address | [address] | | | [place] [address] | + + + | Home Phone [...] Team Providers + +------+ + | Care Global Safety Officer Name | Role | Phone | [...] | | | ONCOLOGY CLINIC [address] | [place], [place] | | | | | [address] [facility] | [address] | | | | | [place] [address] | | | | | | [phone] | | | +--------+ + + + [...] te might be different from the original. [facility] Interdisciplinary Team Navigational Checklist ? Top Priority Discipline EPIC Order Entered Consult Scheduled Consult Complete Comments: x *Medical Oncology Dr. Salazar x *Radiation Oncology Dr. Albina LITTLE 03/11/20 x *Patient Navigation *Nurse Navigator x *Social Service Survivorship Nurse Breast Health Genetics Surgical Input *Nursing assessment *Pharmacy assessment Nutrition Rehab: PT OT Speech & Language Palliative Care Clinical Trials Involvement Automation Manager Visit Financial Assistance Interdisciplinary Consults Completed Date: documented in this encounter Plan of Treatment +--------+ + + + + | Date | Type | Specialty | Care Team | Description | +--------+ + + + + | 11/22/ | Appointment | Radiation Oncology | Susie Montemayor | | | 2020 | | | MD Lazaro Coleman Andrew [address] | | | | | | [place] | | | | | | [address] | | | | | | | | +--------+ + + + + documented as of this encounter Visit Diagnoses Not on filedocumented in this encounter"
--- OUTSIDE RECORDS SUMMARY | ~2020-07-17 | XMS | Encounter Summary ---
Demographics + + + | Address | [address] | | | [place] [address] | + + + | Home Phone [...] Team Providers + +------+ + | Care Biological Aide Name | Role | Phone | + +------+ + | Zuleyka Martínez | PCP | | + +------+ + Encounter Details +--------+ + + + + | Date | Type | Department | Care Team | Description | +--------+ + + + + | 11/20/ | Hospital | [facility] | Susie Montemayor | Lung nodule | | 2017 | Encounter | MED CTR PULMONARY | MD Jared [address] | | | | | FUNCTION [address] | [address] [place], [place] | | | | | [place], | [address] | | | | | [place] [address] | | | | | | [phone] | | | +--------+ + + + [...] by: Mauricio Upton MD 11/20/2016 16:05 [facility] by Mauricio Upton MD at 4:07 PM PSTdocumented in this encounter Plan of Treatment +--------+ + + + + | Date | Type | Specialty | Care Team | Description | +--------+ + + + + | 11/22/ | Appointment | Radiation Oncology | Susie Montemayor | | | 2020 | | | MD Lazaro Coleman | | | | | | [place], [place] | | | | | | [phone] | | | | | | | [...] Mauricio Upton MD 11/20/2016 | | | 16:05[facility] | | | | | |IMPRESSION: [...] Mauricio Upton MD 11/20/2016 16:05 | | |[facility] | | + + + documented in this encounter Visit Diagnoses + + | Diagnosis | + + | Lung nodule Solitary pulmonary nodule | + + documented in this encounter"
--- OUTSIDE RECORDS SUMMARY | ~2020-07-17 | XMS | Encounter Summary ---
Demographics + + + | Address | [address] | | | [place] [address] | + + + | Home Phone [...] Team Providers + +------+ + | Care Concrete Batching Plant Operator Name | Role | Phone | [...] + + | 05/03/ | Hospital | [facility] | Milton Salazar | Abnormal stress ECG | | 2017 | Encounter | MED CTR MEDICAL | MD Bebeto [address] | with treadmill | | | | ONCOLOGY CLINIC [address] | [address] [place] | (Primary Dx); | | | | [facility] | [place] [address] | Thyroid cancer | | | | [place] [address] | [phone] | (HCC); Malignant | | | | [phone] | | neoplasm of thyroid | | | | | Lionel Benson, | gland (HCC); | | | | | PharmD [address] | Non-small cell | | | | | ST [place], [place] | cancer of right lung | | | | | [address] | (HCC); Pneumothorax | | | | [...] original. Clinical Oncology Pharmacy Services Progress Note [facility] Pt. Name/Age/: Olena Rider 56 y.o. 1960 CSN: [id number] Date of service: 05/03/2017 Provider: Lionel Benson, PharmD Identifying Statement: Olena Rider is a 56 y.o. female from [address] [place] [address], The primary encounter diagnosis was Abnormal stress [...] level is improving. Reports occasional nausea continues. Wanda etite is still low, but improving. Denies [...] [place] | | | | | | [address] | | | | | | | [...] | | Cells | | M/uL | [facility] | | | | [...] + | [facility] | [address] | [place] | [phone] | | [facility] | | [address] | | | - LABORATORY | | [...] | | | | | mg/dL | [facility] | | | | | | MEDICAL | | | | | | CENTER - | | | | | | LABORATORY | | + + + + + + | eGFR, | >60Comment: GLOMERULAR | >=60 | [facility] | | | non- | FILTRATION | mL/min/1.73m2 | [facility] | | | Vietnamese | RATE,ESTIMATED | | MEDICAL | | | | mL/min/1.07f6Rspf than | | CENTER - | | [...] [facility] | | | | | | [address] [...] ST. | [address] | [place], [place] | [phone] | | [facility] | | [address] | | | - LABORATORY | | [...] + | [facility] | [address] | [place] | [phone] | | [facility] | | [address] | | | - LABORATORY | | [...] [place] | | | | | | [address] | | | | + + + + + + + + | Specimen | + + | Blood | + + + + + + + | Performing | Address | City/State/Zipcode | Phone Number | | Organization | | | | + + + + + | [facility] | [address] | [place] [address] | [phone] | + + + + + documented [...]
--- OUTSIDE RECORDS SUMMARY | ~2020-07-17 | XMS | Encounter Summary ---
Demographics + + + | Address | [address] | | | [place] [address] | + + + | Home Phone [...] Providers + +------+ + | Care Home Care Specialist Name | Role | Phone | [...] | MD Jared [address] | | | | | ONCOLOGY CLINIC [address] | [place], [place] | | | | | [address] [facility] | [address] | | | | | [place] [address] | | | | | | [phone] | | | +--------+ + + + [...] [place] | | | | | | [place], [place] | | | | | | [address] | | | | | | | | +--------+ + + + + documented as of this encounter Visit Diagnoses Not on filedocumented in this encounter"
--- OUTSIDE RECORDS SUMMARY | ~2020-07-17 | XMS | Encounter Summary ---
Demographics + + + | Address | [address] | | | [place] [address] | + + + | Home Phone [...] Providers + +------+ + | Care Medical Underwriter Name | Role | Phone | [...] + + | 04/23/ | Hospital | [facility] | Milton Salazar | Non-small cell | | 2017 | Encounter | [facility] | MD [address] | cancer of right lung | | | | [facility]COLOGY CLINIC [address] | [address] [place] | (HCC) (Primary Dx); | | | | [address] [place] | [place] [address] | Malignant neoplasm | | | | [place] [address] | [phone] | of thyroid gland | | | | [phone] | | (HCC); Pneumothorax | | | | | | after biopsy; | | | | | | Precordial pain | +--------+ + + + + [...] + + + | Blood Pressure | 124/88 | 04/23/2017 9:20 AM | | | | | PDT | | + + + + + | Pulse | 99 | 04/23/2017 9:20 AM | | | | | PDT | | + + + + + | Temperature | 36.9 C (98.5 F) | 04/23/2017 9:20 AM | | | | | PDT | | + + + + + | Respiratory Rate | 16 | 04/23/2017 9:20 AM | | | | | PDT | | + + + + + | Oxygen Saturation | 100% | 04/23/2017 9:20 AM | | | | | PDT | | + + + + + | Inhaled Oxygen | - | - | | | Concentration | | | | + + + + + | Weight | 82.2 kg (181 lb 3.5 | 04/23/2017 9:20 AM | | | | oz) | PDT | | + + + + + | Height | - | - | | + + + + + | Body Mass Index | 27.55 | 11/04/2016 9:00 AM | | | [...] encounter Progress Notes Milton Salazar MD - 04/23/2017 9:56 AM PDTFormatting of this note might be diff erent from the original. Hem-Onc Progress Note [facility] Pt. Name/Age/: Olena Rider 56 y.o. 1960 Med. Record Number: [id number] Date of admission: 04/23/2017 Assessment and plan: 1. Non-small cell lung cancer, RLL, Nov, 2016 Adenocarcinoma with mucinous features pT3 (two separate foci, 1.3, 1.0 cm), pN1, M0 StageIIIA S/p VATS RLL, Dec, 2016, Dr. Luis Felipe Mon EGFR mutation negative, FISH neg: ROS, ALK rearrangement PD-L1 low expression (3%) 2. Papillary carcinoma of the thyroid S/p thyroidectomy, LN excision S/p radio-iodine abllation, Oct, 2016 Authorization for today's fourth and final planned cycle combination pemetrexed and carbopl atin chemotherapy and tingling carboplatin AUC 6. Reminder concerning importance of hydration, particularly in the wake of predicted hot weat her over the weekend aggravating renal clearance of [place] chemotherapy. Additional recom mendation for continued indefinite potassium replacement as renal potassium wasting can be a long-term toxicity from treatment. Ten-day trae check follow-up Subjective: The patient chart and medications were reviewed in detail and the patient was seen and exam inediamond. Olena Rider is a 56 y.o. female returns today to begin a fourth and final planned cy maria ines of [place] based adjuvant chemotherapy as of her earlier resection of stage II lung can cer. Interim history notes gradual resolution of GI toxicity in the form of nausea but persisten t symptoms of fatigue. Patient very grateful that treatments coming to an and and she can b egin to visualize life beyond such therapy. She continues to make effort at continuing her hydration. She is also continuing a program of oral potassium begun earlier because of susp icion of probable [place] based nephrotoxicity with secondary potassium wasting. PSH: Reviewed, no changes to admission H&P. Review of Systems: Constitutional: Denies high fevers, shaking chills, anorexia, vomiting, weight loss, or n ight sweats. Appetite without changes. States low energy and has not felt well the last 3 w eeks. Intermittent nausea. States not having much of an appetite. Ear, Nose, Mouth, Throat: Denies odynophagia, dysphagia, or tinnitus. Cardiovascular: Denies shortness of breath, dyspnea on exertion, chest pain, palpitations o r orthopnea. Respiratory: Denies hemoptysis, or sputum production. Unchanged cough. Gastrointestinal: Denies abdominal pain, constipation, diarrhea, melena, or bright red bloo d per rectum. Genitourinary: Denies hematuria or dysuria. Musculoskeletal: Bilateral knee pain-they always hurt. Neurologic: Denies or numbness/tingling of the extremities. States having a few headaches a nd vision becoming more blurry. Endocrine: Denies peripheral edema or heat/cold intolerance. Hematologic: Denies spontaneous bruising or bleeding. Integumentary: Denies rash, wounds or other skin concerns. Pain: Pain in both knees rates the pain roxane 3/10, this is with out any pain medication. If it gets high she will take a tramadol [...] 2 tablets by mouth Daily. aka: TUMS dexamethasone 4 mg tablet Take 4 mg by mouth 2 times daily (with breakfast & dinner). Take BID for 2 days after chem otherapy. aka: DECADRON folic acid 400 MCG tablet Take 1 tablet by mouth Daily. During treatment with PEMEtrexed. (This dose found in most ulti-vitamins.) aka: FOLVITE ibuprofen 200 mg tablet Take 200 mg [...] as needed for Nausea. aka: ZOFRAN ODT potassium chloride 10 MEQ ER tablet Take 1 tablet by mouth Daily. aka: PATRICKOR-CON traMADol 50 mg tablet Take 50 mg by mouth every 6 hours as needed for Pain. aka: JEANNA UNABLE TO FIND CBD oil 15 mg UNABLE TO FIND Protandim Supplement - given to her by Dr. Mon varenicline 0.5 mg tablet Take 1 tablet by mouth 2 times daily. To help stop smoking aka: CHANTIX zolpidem 10 mg tablet Take 10 mg by mouth nightly as needed for Sleep. aka: JESSICA Objectives: Temp: 36.9 C (98.5 F) BP: 124/88 Pulse: 99 Resp: 16 SpO2: 100 % on Min/Max Temp past 24 hours:Temp Av.9 C (98.5 F) Min: 36.9 C (98.5 F) Max: 3 6.9 C (98.5 F) No intake or output data in the 24 hours ending 04/23/17 0956 Wt. Admission: Weight: 82.2 kg (181 lb 3.5 oz) Wt. Current: Weight: 82.2 kg (181 lb 3.5 oz) Physical Exam: Exam: General: The patient is alert and oriented. No acute distress. Psychiatric: Normal mood and affect. Diagnostic studies: Available data and images were reviewed personally. See reports. Significant results and findings are addressed here or in the Assessment and Plan. Recent Labs Lab 04/23/17 0909 WBC 8.2 HGB 12.1 HCT 34.6 PLT 347 Recent Labs Lab 04/23/17 0909 NA 138 K 3.4* CL 105 CO2 25 BUN 6* CREA 1.12 GLU 119* CALCIUM 9.2 BILITOT 0.3 AST 24 ALT 25 ALKPHOS 75 ALBUMIN 4.2 Electronically signed by: Milton Salazar, 04/23/2017 9:56 [facility] TIME SPENT 20 MIN. > 50% AT BEDSIDE, WITH FAMILY/PATIENT IN CARE AND APPEALS SPECIALIST ON UNIT AND CO ORDINATION OF CARE Portions of this chart may have been created with [employer] voice recognition software. Occasi onal wrong-word or sound-alike substitutions may have occurred due to the inherent cervantes itations of voice recognition software. Please read the chart carefully and recognize, using context, where these substitutions have occurred. Amanda Wagner, [facility] - 04/23/2017 9:22 AM PDTREVIEW O F SYSTEMS Constitutional: Denies high fevers, shaking chills, anorexia, vomiting, weight loss, or n ight sweats. Appetite without changes. States low energy and has not felt well the last 3 w eeks. Intermittent nausea. States not having much of an appetite. Ear, Nose, Mouth, Throat: Denies odynophagia, dysphagia, or tinnitus. Cardiovascular: Denies shortness of breath, dyspnea on exertion, chest pain, palpitations o r orthopnea. Respiratory: Denies hemoptysis, or sputum production. Unchanged cough. Gastrointestinal: Denies abdominal pain, constipation, diarrhea, melena, or bright red bloo d per rectum. Genitourinary: Denies hematuria or dysuria. Musculoskeletal: Bilateral knee pain-they always hurt. Neurologic: Denies or numbness/tingling of the extremities. States having a few headaches a nd vision becoming more blurry. Endocrine: Denies peripheral edema or heat/cold intolerance. Hematologic: Denies spontaneous bruising or bleeding. Integumentary: Denies rash, wounds or other skin concerns. Pain: Pain in both knees rates the pain roxane 3/10, this is with out any pain medication. If it gets high she will take a tramadol at night to help her to sleep. Pain gets as high as a 9/10. Tolerable pain level: 3>/10, on a scale from 0-10. Note: Pt is here to have a 3 hour tx and labs. My chart: documented in this encounter Plan of Treatment +--------+ + + + + | Date | Type | Specialty | Care Team | Description | +--------+ + + + + | 11/22/ | Appointment | Radiation Oncology | Susie Montemayor | | | 2020 | | | MD [address] | | | | | | [place], [place] | | | | | | [id number] | | | | | | | | +--------+ + + + + documented as of this encounter Procedures + +--------+ + + + | Procedure Name | Priori | Date/Time | Associated Diagnosis | Comments | | | ty | | | | + +--------+ + + + | CBC WITH | STAT | 04/23/2017 | Non-small cell | Results for this | | DIFFERENTIAL | | 9:09 AM | cancer of right lung | procedure are in the | | | | PDT | (HCC) | results section. | + +--------+ + + + | COMPREHENSIVE | STAT | 04/23/2017 | Non-small cell | Results for this | | METABOLIC PANEL | | 9:09 AM | cancer of right lung | procedure are in the | | | | PDT | (HCC) | results section. | + +--------+ + + + documented in this encounter Results CBC with Differential (04/23/2017 9:09 AM PDT) + + + + + + | Component | Value | Ref Range | Performed | Pathologist | | | | | At | Signature | + + + + + + | White Blood | 8.2 | 4.0 - 11.0 K/uL | [facility] | | | Cells | | | [facility] | | | | | | [facility] | | | | | | C[facility] - | | | | | | LABORATORY | | + + + + + + | Red Blood | 3.72 | 3.70 - 5.20 | [facility] | [...] + + + + | Hematocrit | 34.6 | 34.0 - 47.0 % | [facility] | | | | | | [facility] | | | | | | [facility] | | | | | | C[facility] - | | | | | | LABORATORY | | + + + + + + | MCV | 93.0 | 83.0 - 101.0 fL | [facility] | | | | | | [facility] | | | | | | [facility] | | | | | | C[facility] - | | | | | | LABORATORY | | + + + + + + | MCH | 32.5 | 28.0 - 35.0 pg | [facility] [...] + + + + | RDW-CV | 17.2 (H) | <15.0 % | [facility] | | | | | | [facility] | | | | | | [facility] | | | | | | CENTER - | | | | | | LABORATORY | | + + + + + + | Platelet | 347 | 140 - 440 K/uL | [facility] [...] + + + + | % | 44.6 (L) | 45.0 - 82.0 % | [facility] | | | Neutrophils | | | [facility] | | | | | | MEDICAL | | | | | | CENTER - | | | | | | LABORATORY | | + + + + + + | % | 40.9 | 20.0 - 45.0 % | [facility] | | | Lymphocytes | | | [facility] | | | | | | MEDICAL | | | | | | CENTER - | | | | | | LABORATORY | | + + + + + + | % Monocytes | 11.7 | 4.0 - 12.0 % | [facility] [...] + + + + | Absolute | 1.00 | 0.00 - 1.00 | [facility] | [...] | 0.10 | 0.00 - 0.10 | [facility] | [...] [address] | [place] | [phone] | | [facility] | | [address] | | | - LABORATORY | | | | + + + + + Comprehensive Metabolic Panel (04/23/2017 9:09 AM PDT) + + + + + [...] + + + + | K | 3.4 (L) | 3.5 - 5.1 | [facility] | | | | | mmol/L | [facility] | | | | | | [facility] | | | | | | CENTER - | | | | | | LABORATORY | | + + + + + + | Cl | 105 | 98 - 109 mmol/L | [facility] [...] + + + + | Glucose | 119 (H) | 70 - 109 mg/dL | [facility] | | | | | | [facility] | | | | | | [facility] | | | | | | CENTER - | | | | | | LABORATORY | | + + + + + + | BUN | 6 (L) | 7 - 18 mg/dL | [facility] | | | | | | [facility] | | | | | | [facility]ICAL | | | | | | CENTER - | | | | | | LABORATORY | | + + + + + + | Creatinine | 1.12 | 0.60 - 1.30 | [facility] | | | | | mg/dL | [facility] | | | | | | MEDICAL | | | | | | CENTER - | | | | | | LABORATORY | | + + + + + + | eGFR, | 51 (L)Comment: | >=60 | [facility] | | | non- | GLOMERULAR FILTRATION | mL/min/1.73m2 | [facility] | | | [place] | RATE,ESTIMATED | | MEDICAL | | | | mL/min/1.69a3Udke than | | CENTER - | | [...] + + + + | Albumin | 4.2 | 3.2 - 5.0 g/dL | [facility] [...] + + + + | AST | 24 | 10 - 42 U/L | [facility] | | | | | | [facility] | | | | | | MEDICAL | | | | | | CENTER - | | | | | | LABORATORY | | + + + + + + | ALT | 25 | 6 - 45 U/L | [facility] | | | | | | [facility] | | | | | | MEDICAL | | | | | | CENTER - | | | | | | LABORATORY | | + + + + + + | Alkaline | 75 | 40 - 110 U/L | [facility] | | | Phosphatase | | | [facility] | | | | | | MEDICAL | | | | | | CENTER - | | | | | | LABORATORY | | + + + + + + | Globulin | 2.9 | 2.1 - 3.8 g/dL | [facility] [...] + + + + | BUN/Creatin | 5.4 | | [facility] | | | ine [...] [facility]. | [address] | [place] | [phone] | | [facility] | | [address] | | | - LABORATORY | | [...] after biopsy Iatrogenic pneumothorax | + + | Precordial pain | + + documented in this encounter
--- OUTSIDE RECORDS SUMMARY | ~2020-07-17 | XMS | Encounter Summary ---
Demographics + + + | Address | [address] | | | [place] [address] | + + + | Home Phone [...] Providers + +------+ + | Care Ophthalmic Medical Technologist Name | Role | Phone | + +------+ + | Zuleyka Martínez | PCP | | + +------+ + Reason for Visit +---------+--------+ + | Reason | Onset | Comments | | | Date | | +---------+--------+ + | Testing | 08/08/ | [facility] | | | 2019 | | +---------+--------+ + Encounter Details +--------+ + + + + | Date | Type | Department | Care Team | Description | +--------+ + + + + | 08/08/ | Telephone | [facility] | Ashley Doty RN | Testing ([facility] | | 2018 | | [facility] | | Genetic Laboratory) | | | | ONCOLOGY CLINIC [address] | | | | | | [address] | | | | | | [place] [address] | | | | | | [phone] | | | +--------+ + + + [...] AM PDTReceived genetic test res ults from [facility]. I showed Dr. Salazar a copy of the results. She i s schedule to see Dr. Salazar on 08/29/19 @ 1648. I will be giving her an official patien t copy for her records at this time. I will also be taking a copy to HIM to be scanned into [employer]. elephone Encounte r - Ashley Doty RN - 08/09/2019 2:17 PM PDTOlena called me this afternoon with an up date. I have sent her requisition form and the blood specimen in today's mail. Electronicall y signed by Ashley Doty RN at 08/09/2019 2:18 PM PDTTelephone Encounter - Ashley Doty RN - 08/08/2019 3:09 PM Júniorvioletta came in for genetic testing through [facility]. I explain the process for genetic testing and went over the handbook on "Genetic Testing for Hereditary Cancer." I had her watch the patient education video from [facility]. Violet wagner signed informed consent for Hereditary [...] [place] | | | | | | [id number] | | | | | | | | +--------+ + + + + documented as of this encounter Visit Diagnoses Not on filedocumented in this encounter
--- OUTSIDE RECORDS SUMMARY | ~2020-07-17 | XMS | Encounter Summary ---
Demographics + + + | Address | [address] | | | [place] [address] | + + + | Home Phone [...] Team Providers + +------+ + | Care Hygiene Teacher Name | Role | Phone | + +------+ + | Zuleyka Martínez | PCP | | + +------+ + Encounter Details +--------+ + + + + | Date | Type | Department | Care Team | Description | +--------+ + + + + | 01/26/ | Hospital | [facility] | Milton Salazar | Non-small cell lung | | 2017 | Encounter | [facility] | MD [address] | cancer, right (HCC) | | | | ONCOLOGY CLINIC [address] | [address] [place] | (Primary Dx); | | | | [address] [place] | [place] [address] | Malignant neoplasm | | | | [place] [address] | [phone] | of thyroid gland | | | | [phone] | | (HCC) | +--------+ + + [...] of this encounter Progress Notes Amanda Mckenna, [facility] - 01/26/2017 1:06 PM PDTREVIEW OF SYSTEMS [...] by Dr. Luis Felipe Mon at [facility] and on December 30 underwent [...] Studies: Patient:OLENA RIDER Inpt :1960 Sex:F Case #:[id number] Printed:01/21/2017 08:15 PATHOLOGY REPORT CollectedAccessioned Completed 12/30/2016 8:39:003 10:15:00 01/21 8:15:50 Clinical Information Malignant neoplasm of lower lobe, right bronchus or lung. Preliminary report issued on 01/02/17. Addendum [facility], [address], [address], [place], [place], FISH Analysis ([id number], Block C6) Results: ROS1 FISH Analysis - - Negative * Interpretation: Interphase FISH analysis was performed using a ROS1 Break Apart FISH Probe. FISH probe signals were within the normal reference range. A ROS1 gene rearrangement was not observed. This represents a NORMAL result and suggests that ROS1 inhibitors are not indicated. *Comment:The technical component of this test was completed at [facility], [address] [facility], [address], [place]; all controls were within expected ranges. Please see complete scanned results in the patient's electronic medical record. FISH analysis by William Jimenez M.D. Original report verified 01/04/17 by Jin Abreu M.D. /td 01/21/17 end of addendum ADDENDUM: [facility], [address], [address], [place], Histology Analysis ([id number], Block C7) Prognostic/Predictive Markers: PD-L1 22C3 FDA (KEYTRUDA):EXPRESSED Tumor Proportion Score:3% Intensity:Weak [facility], [address] [place] [address], Solid Tumor Targeted Mutation & Fusion Panel by Next Generation Sequencing ([id number], Block C6) Result Interpretation PATHOLOGY REPORT CollectedAccessioned [...] M.D. 01/21/17 S"H/PATRICIA Performing Location:Pathology Services - [facility], [address] [place], [place] [address] Gross Description A.LEVEL 7 LYMPH NODE (LUNG) Received in formalin labeled with the patient's name (initials [facility]) and designated as "level 7 lymph node (lung)" Description:The specimen consists of an irregular piece of maroon shah tissue measuring 2.5 cm in greatest dimension.The specimen is longitudinally bisected. SECTIONS: A1.Longitudinally bisected specimen, in its entirety. B.LEVEL #11 RIGHT LYMPH NODE (LUNG) Received in formalin labeled with the patient's name (initials [facility]) and designated as "level #11 right lymph node (lung)" Description:The specimen consists of an ovoid piece of shah- phillips tissue measuring 2.1 cm in greatest dimension.The specimen is longitudinally bisected. SECTIONS: B1.Longitudinally bisected specimen, in its entirety. C.RIGHT LOWER LOBECTOMY (LUNG) Received fresh labeled with the patient's name (initials [facility]) and designated as "right lower lobectomy [...] formalin labeled with the patient's name (initials [facility]) and designated as "level 11 #2 right lymph node (lung)" Description:The specimen consists of three lymph node fragments that range from 0.5-0.7 cm in greatest dimension. SECTIONS: D1.Specimen in toto. E.LEVEL 2 RIGHT (LUNG) LYMPH NODE Received in formalin labeled with the patient's name (initials [facility]) and designated as "level 2 right (lung) lymph node" Description:The specimen consists of four lymph node fragments that range from 0.6-1.7 cm in greatest dimension. SECTIONS: E1.Specimen in toto. F.LEVEL 4 LYMPH NODES RIGHT LUNG Received in formalin labeled with the patient's name (initials [facility]) and designated as "level 4 lymph [...] and its performance characteristics determined by the [facility], [address] [place] [address], [place] [address], [place], [address], CLIA #[id number]. It has not been cleared or approved [...] 24 months. We discussed a program of [place] containing chemotherapy as a means of containing fat risk. [place] c hemotherapy generally well-tolerated as an outpatient [...] signed by: Milton Salazar 01/26/2017 13:55 [facility] documented in this encounter Plan of Treatment +--------+ + + + + | Date | Type | Specialty | Care Team | Description | +--------+ + + + + | 11/22/ | Appointment | Radiation Oncology | Susie Montemayor | | | 2020 | | | MD [address] | | | | | | [place], [place] | | | | | | [phone] | | | | | | | [...]
--- OUTSIDE RECORDS SUMMARY | ~2020-07-17 | XMS | Encounter Summary ---
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 We re viewed how cancer grows [...]
--- OUTSIDE RECORDS SUMMARY | ~2020-07-17 | XMS | Encounter Summary ---
Demographics + + + | Address | [address] | | | [place] [address] | + + + | Home Phone [...] Team Providers + +------+ + | Care Adjunct Communications Faculty Member Name | Role | Phone | + [...] | MD [address] | | | | | Procedures | [address] | [place], | | | | | [place] Thyroid | [place], | [place] | | | | | Cancer | [place] [address] | [address] | | | | | Metastatic | Phone: | Phone: | | | | | Whole Body | [phone] | [phone] | | | | | | Fax: | Fax: | | | | | | [phone] | [phone] | +--------+--------+ + + + + Diagnostic/Screening [...] (HCC) | [address] | | | | | Procedures | [address] | [place], | | | | | [place] | [place], | [place] | | | | | Radiopharm | [place] [address] | [address] | | | | | Therapy Oral | Phone: | Phone: | | | | | | [phone] | [phone] | | | | | Administrati | Fax: | Fax: | | | | | o [place] [address] | [phone] | [phone] | | | | | IODIDE CAP, [...] | | Oncology | Cancer of | [facility] | Susie Coleman MD | | | | | thyroid | [address] | [address] | | | | | (HCC) | [address] | [address] | | | | | Consult/Thyr | [address] | [place], | | | | | oid/Stephen | [place], | [place] [address] | | | | | (requested) | [place] [address] | Phone: | | | | | Procedures | Phone: | [phone] | | | | | [place] OFFICE | [phone] | Fax: | | | | | OUTPATIENT | Fax: | [phone] | | | | | VISIT 25 | [phone] | | | | | | MINUTES NEW | | | | | | | PATIENT | | | +--------+--------+ + + + + Encounter Details +--------+ + + + + | Date | Type | Department | Care Team | Description | +--------+ + + + + | 09/22/ | Hospital | [facility] | Susie Montemayor | Thyroid cancer (HCC) | | 2016 | Encounter | MED CTR RADIATION | MD Jared [address] | (Primary Dx) | | | | ONCOLOGY [address] | [address] [place] | | | | | [place], | [address] | | | | | [place] [address] | | | | | | [phone] | | | +--------+ + + + [...] Susie Walker MD - 09/22/2016 11:08 AM [facility] Radiation Oncology Consultation Note PATIENT: Olena Rider MR#: [id number] :1960 DOS:09/22/2016 Chief Complaint: C73 - Malignant [...] pain and left shoulder pain to the [place] emergency Department on 06/01/16. Transferred to [facility]. Wo rkup included chest x-ray with bilateral [...] for pulmonary nodules performed on 06/17/16 at [facility] reased metabolic activity identified [...] Her case was also discussed at the [place]' tumor board last week. Dr. Pugh and [...] ll be reviewed with radiology here at [place] to determine potential for CT-guided biop [...] Susie Walker M.D CC: Doris Stanford M.D. education department registrar This note was transcribed using Wo[employer] speech recognition software. As a result, there ma y be unintended for medical and/or spelling errors. Every attempt is made to correct dicta tion. If there are any questions or errors please contact our office. CSN: [id number] signed by Susie Walker MD at 09/22/2016 [...] Department of Radiation Oncology [facility] : [id number] lectronically signed by Susie Walker MD at [...] antibodies Notes: Pre-Authorization verified: Plan entered into [employer] Written Directive for Radioisotope Administration Patient Name: Olena Rider : 1960 Diagnosis: C73 - Malignant neoplasm of thyroid gland, Diagnosed 09/2016 (Active) Susie Walker M.D. Radiation Oncologist Department of Radiation Oncology [facility] : [phone] documented in this encounter Plan of Treatment +--------+ + + + + | Date | Type | Specialty | Care Team | Description | +--------+ + + + + | 11/22/ | Appointment | Radiation Oncology | Susie Montemayor | | | 2020 | | | MD Jared [address] | | | | | | [place], [place] | | | | | | [address] | | | | | | | [...] + | [address] | [address] | [place] | [phone] | | [facility] | | [address] | | | - LABORATORY | | [...] | | | in Ab | Performed: [facility], [address] | | LAB [facility] | | | | [address], [place] | | | | | | [address] | | | | + + + [...] [place] | | | | | | [address] | | | | + + + [...] [address] | [place] [address] | [phone] | + + + + + documented in this encounter Visit Diagnoses + + | Diagnosis | + + | Thyroid cancer (HCC) - Primary Malignant neoplasm of thyroid gland | + + documented in this encounter"
--- OUTSIDE RECORDS SUMMARY | ~2020-07-17 | XMS | Encounter Summary ---
Demographics + + + | Address | [address] | | | [place] [address] | + + + | Home Phone [...] Team Providers + +------+ + | Care Molding Cutter Name | Role | Phone | + +------+ + | Zuleyka Martínez | PCP | | + +------+ + Reason for Visit + + + | Reason | Comments | + + + | Establish Care | Brain | + + + Evaluate & Treat (Urgent) +--------+ + + [...] Lemuel | | | Required | | ([facility]) | [place] | [address] | | | | | | MD [place] | [address] | | | | | | [address] | [address] | | | | | | [address] [place] | [place] | | | | | | [place] | [address] | | | | | | [address] | Phone: | | | | | | Phone: | [phone] | | | | | | [phone] | Fax: | | | | | | Fax: | [phone] | | | | | | [phone] | | +--------+ + + + + + Encounter Details +--------+---------+ + + + | Date | Type | Department | Care Team | Description | +--------+---------+ + + + | 02/01/ | Office | [facility] | Lemuel Da Silva DO | Brain mass (Primary | | 2020 | Visit | NEUROSURGERY [address] | Dx); Malignant | | | | [address] | [address] | neoplasm of lower | | | | [place], [place] | [place] [address] | lobe of right lung | | | | [address] | [phone] | (HCC); Primary | | | | [phone] | | malignant neoplasm | | | | | | of female breast | | | | | | (HCC); Papillary | | | | | | thyroid carcinoma | | | | | | (HCC); Intracranial | | | | | | space-occupying | | | | | | lesion | +--------+---------+ + + + Social History [...] + + + | Blood Pressure | 129/85 | 02/02/2020 9:09 AM | | | | | PDT | | + + + + + | Pulse | 88 | 02/02/2020 9:09 AM | | | | | PDT | | + + + + + | Temperature | 36 C (96.8 F) | 02/02/2020 9:09 AM | | | [...] + | Weight | 84.4 kg (186 lb) | 02/02/2020 9:09 AM | | | | | PDT | | + + + + + | Height | 174 cm (5' 8.5") | 02/02/2020 9:09 AM | | | | | PDT | | + + + + + | Body Mass Index | 27.87 | 02/02/2020 9:09 AM | | | [...] Progress Notes Lemuel Da Silva DO - 02/02/2020 9:30 AM PDT Neurosurgery Clinic Note [facility] Provider: Lemuel Da Silva DO Date : [...] file Gets together: Not on file Attends baptism service: Not on file Active member of [...] report ed sensation to light touch Cerebellar: [id number] intact, no dysdiadokinesia or dysmetria noted Lab [...] care as split into 3 potential paths 1. Options of conservative management with continued observation repeat MRI in 3 months wit h discussed the patient although with patient's aggressive oncologic history explained that this is likely not the best course of treatment as I cannot guarantee that this tumor would not increase in size. Is there is asymptomatic and no current need for steroids or antiseiz ure medications especially as this is in the core of the brain and is unlikely and extremely rare to cause any seizure disorder. Did discuss patient that her current headaches are lik radha completely unrelated to this lesion. 2. Options for nonsurgical management including obtaining a PET scan to delineate further t umor burden and if another site is identified which is consistent with a lung or breast orig in that may help with Dr. Salazar with oncology determine the correct oncologic therapy f or the brain lesion although would be an in for diagnosis of the brain lesion and would not have directed biopsy. PET scan would also be helpful in determining overall tumor burden an d extent of disease as patient is also recently had extensive weight loss and some difficult y with swallowing. Nonsurgical management would also include referral to for con sideration of stereotactic radiosurgery of this lesion. 3. Options for neurosurgical intervention were discussed the patient extensive detail expla ined that this can include a simple needle biopsy which has relatively low risk although thi s tumor is in a near an operable area and tumor bleeding could cause rather significant defi cits with places risk at less than 1% chance of severe neurologic deficit with simple biopsy alone this would help us diagnose the lesion but in the setting of a PET scan showing diffu se disease may be unnecessary as single solitary lesion this deep in the brain in the near a n operable area could be managed with chemotherapy and radiation if we can infer diagnosis b ased on recurrence throughout the body. Options for interhemispheric transcallosal approach to the ventricular space and caudate area was also discussed with the patient Splane that t his surgical intervention can carry anywhere from 5 to 20% chance of potential left-sided pa ralysis and that this tumor is in a near an operable area as it is directly involving the ri ght caudate and the right thalamus this can lead to profound neurologic deficits including l oss of function of the left upper and lower extremity along with this involvement along the fornix which can lead to profound and severe memory deficits. Splane the patient this is no t a simple neurosurgical procedure such as a metastasis to the surface of the brain and that any decision for surgery would need to be well aware of the added surgical risks. In the s etting that other diagnosis can be made from pet imaging or if radiation and chemotherapy wo uld not be modified based on overall total resection advised patient to carefully weigh the risks and benefits of such an extensive surgery. 2. Overall patient was appreciative of educational and long instruction regarding potentia l options. At this time I think she is wanting to evaluate potential radiation surgery opti ons with before deciding on surgical consent. Also strongly recommend the patien t receive the PET scan to see if potential chemotherapy managements could be determined base d on residual tumors. Advised patient that if PET scan is negative and she does wish for barnes rgical intervention she can call us in the future for complex neurosurgical resection of mas s versus needle biopsy. With regard to potential for intrinsic brain lesion would find it e xtremely rare that this is a benign lesion such as an ependymoma as there is cystic componen ts and patient has an oncologic history of breast and lung cancer this most likely represent s a metastasis. 3. We will send notes to both oncologic providers for this patient overall this may be a s ituation where the patient is advised of options from all 3 providers and then makes her det ermination as whether she is willing to consent for surgery or would want to try presumptive management including chemotherapy and radiation. Return for Patient offered surgical intervention. It is a pleasure being involved in this patients care should any questions or concerns víctor wagner feel free to contact me at any time. Lemuel Da Silva D.O Board Certified Neurosurgeon / Chief of Neurosurgery [facility] Office Parts of this document have been created with voice recognition software. Although I have p roofread the note, gis mapping technician errors may still exist. documented in this enc ounter Plan of Treatment +--------+ + + + + | Date | Type | Specialty | Care Team | Description | +--------+ + + + + | 11/22/ | Appointment | Radiation Oncology | Susie Montemayor | | | 2020 | | | MD Jared [address] | | | | | | [facility] [place] | | | | | | [address] | | | | | | | | +--------+ + + + + documented as of this encounter Visit Diagnoses + + | Diagnosis | + + | Brain mass - Primary Unspecified condition of brain | + + | Malignant neoplasm of lower lobe of right lung (HCC) | + + | Primary malignant neoplasm of female breast (HCC) | + + | Papillary thyroid carcinoma (HCC) Malignant neoplasm of thyroid gland | + + | Intracranial space-occupying lesion Swelling, mass, or lump in head and neck | + + documented in this encounter
--- OUTSIDE RECORDS SUMMARY | ~2020-07-17 | XMS | Encounter Summary ---
Demographics + + + | Address | [address] | | | [place] [address] | + + + | Home Phone [...] Team Providers + +------+ + | Care Press Manager Name | Role | Phone | [...] | | Tien Nuno MD | [address] | | | | | Pneumothorax | [address] | [place], | | | | | after | [address] | [place] [address] | | | | | biopsy | [place], | Phone: | | | | | Procedures | [place] [address] | [phone] | | | | | CT Guided | Phone: | Fax: | | | | | Thoracentesi | [phone] | [phone] | | | | | s w Tube | Fax: | | | | | | Insert | [phone] | | +--------+--------+ + + + + [...] biopsy (Primary Dx) | | | | [address] [place], | [place], [place] | | | | | [place] [address] | [address] | | | | | [phone] | | | +--------+ + + + [...] | | | MD Lazaro Coleman [address] | | | | | | ST [place], [place] | | | | | | [address] | | | | | | | [...]
--- OUTSIDE RECORDS SUMMARY | ~2020-07-17 | XMS | Encounter Summary ---
Demographics + + + | Address | [address] | | | [place] [address] | + + + | Home Phone [...] Providers + +------+ + | Care Manager Appointment Name | Role | Phone | + [...] | | | [address] [place] | [place] [address] | | | | | [place] [address] | | | | | | [phone] | | | +--------+ + + + [...] [address] | | | | | | [place], [place] | | | | | | [address] | | | | | | | | +--------+ + + + + documented as of this encounter Procedures + +--------+ + + + | Procedure Name | Priori | Date/Time | Associated Diagnosis | Comments | | | ty | | | | + +--------+ + + + | ADAM DIGITAL | Routin | 06/13/2013 | | Results for this | | DIAGNOSTIC BILATERAL | e | 12:00 AM | | procedure are in the | | | | PDT | | results section. | + +--------+ + + + documented in this encounter Results ADAM Digital Diagnostic Bilateral (06/13/2013 12:00 AM PDT) + + | Specimen [...]
--- OUTSIDE RECORDS SUMMARY | ~2020-07-17 | XMS | Encounter Summary ---
Demographics + + + | Address | [address] | | | [place] [address] | + + + | Home Phone [...] Team Providers + +------+ + | Care Fitting Room Checker Name | Role | Phone | [...] | neoplasm of | [place] | [address] | | | | | unspecified | MD Bebeto | [place], | | | | | part of | [address] | [place] [address] | | | | | right | [place] | Phone: | | | | | bronchus or | [place], [place] | [phone] | | | | | lung (HCC) | [address] | Fax: | | | | | Procedures | Phone: | [phone] | | | | | FL VITAMIN | [phone] | | | | | | B12 | Fax: | | | | | | INJECTION, | [phone] | | | | | | [address] | | | | | | | ONDANSETRON | | | | | | | HCL | | | | | | | INJECTION, 1 | | | | | | | MG FL | | | | | | | DEXAMETHASON | | | | | | | E SODIUM | | | | | | | PHOS, 1 MG | | | | | | | FL | | | | | | | FOSAPREPITAN | | | | | | | T INJECTION, | | | | | | | 1 MG FL IV | | | | | | | INFUSION, | | | | | | | HYDRATION, | | | | | | | 31-60 MIN | | | | | | | FL IV | | | | | | | INFUSION, | | | | | | | HYDRATION, | | | | | | | EA ADD HOUR | | | | | | | FL | | | | | | | PEMETREXED | | | | | | | INJECTION, | | | | | | | 10 MG FL | | | | | | | CISPLATIN 10 | | | | | | | MG | | | | | | | INJECTION | | | | | | | FL | | | | | | | DIPHENHYDRAM | | | | | | | INE HCL | | | | | | | INJECTIO, 50 | | | | | | | MG FL | | | | | | | ALBUTEROL | | | | | | | COMP CON, 1 | | | | | | | MG FL | | | | | | | ALBUTEROL | | | | | | | NON-COMP | | | | | | | CON, 1 MG | | | | | | | FL | | | | | | | METHYLPREDNI | | | | | | | SOLONE | | | | | | | INJECTION, | | | | | | | 125 MG FL | | | | | | | INJECTION, | | | | | | | FAMOTIDINE, | | | | | | | 20 MG FL | | | | | | | NORMAL | | | | | | | SALINE | | | | | | | SOLUTION | | | | | | | INFUS, 500 | | | | | | | ML FL | | | | | | | NORMAL | | | | | | | SALINE | | | | | | | SOLUTION | | | | | | | INFUS, 250 | | | | | | | ML FL | | | | | | | STERILE | | | | | | | WATER/SALINE | | | | | | | , 10 ML FL | | | | | | | CHEMOTHER, | | | | | | | IV PUSH,EA | | | | | | | ADD DRUG FL | | | | | | | CHEMOTHER, | | | | | | | IV INFUSION, | | | | | | | 1 HR FL | | | | | | | CHEMOTHER, | | | | | | | IV INFUSION, | | | | | | | EA HR FL | | | | | | | CHEMOTHER,NO | | | | | | | N-HORMONE | | | | | | | ANTI-NEOPL, | | | | | | | SUB-Q/IM FL | | | | | | | CHEMOTHER | | | | | | | HORMON | | | | | | | ANTINEOPL | | | | | | | SUB-Q/IM FL | | | | | | | | | | | | | | PALONOSETRON | | | | | | | HCL, 25 [address] | | | | | | | FL | | | | | | | CARBOPLATIN | | | | | | | INJECTION, | | | | | | | 50 MG | | | +--------+--------+ + + + + Encounter Details +--------+ + + + + | Date | Type | Department | Care Team | Description | +--------+ + + + + | 04/02/ | Hospital | [facility] | [place] Salazar | 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 [place] | cancer of right lung | | | | INFUSION [address] | [address] [place] | (HCC) | | | | [place], | [place] [address] | | | | | [place] [address] | [phone] | | | | | [phone] | | | +--------+ + + + [...] | | | | | | [place] | | | | | | [id number] | | | | | | | [...]
--- OUTSIDE RECORDS SUMMARY | ~2020-07-17 | XMS | Encounter Summary ---
Demographics + + + | Address | [address] | | | [place] [address] | + + + | Home Phone [...] Author + + + | Author | [facility] | | | and [place] | + + + | Organization | [facility] | | | [...] Team Providers + +------+ + | Care Software Lead Name | Role | Phone | [...] | | Non-small | Salazar, | [address] [place] | | | | | cell cancer | [place] | [place], | | | | | of right | [place] | [place] [address] | | | | | lung (HCC) | [address] | Phone: | | | | | Procedures | [place] | [phone] | | | | | CT Chest | [place], [place] | Fax: | | | | | Abdomen | [address] | [phone] | | | | | Pelvis w | Phone: | | | | | | Contrast | [phone] | | | | | | | Fax: | | | | | | | [phone] | | +--------+--------+ + + + + [...] | | | | | Non-small | Marie, | [address] [place] | | | | | cell cancer | [place] | [place], | | | | | of right | MD [place] | [place] [address] | | | | | lung (HCC) | [address] | Phone: | | | | | Procedures | [place] | [phone] | | | | | CT Chest | [place] | Fax: | | | | | Abdomen | [address] | [phone] | | | | | Pelvis w | Phone: | | | | | | Contrast | [phone] | | | | | | | Fax: | | | | | | | [phone] | | +--------+--------+ + + + + Encounter Details +--------+ + + + + | Date | Type | Department | Care Team | Description | +--------+ + + + + | 08/18/ | Hospital | [facility] | [place] Salazar | Non-small cell | | 2018 | Encounter | MED CTR CT [address] | MD [place] [address] | cancer of right lung | | | | [place], | [address] [place] | ([facility]) | | | | [place] [address] | [place] [address] | | | | | [phone] | [phone] | | | | | | | [...] [place] | | | | | | [address] | | | | | | | | +--------+ + + + + documented as of this encounter Procedures + +--------+ + + + | Procedure Name | Priori | Date/Time | Associated Diagnosis | Comments | | | ty | | | | + +--------+ + + + | CT CHEST ABDOMEN | Routin | 08/18/2018 | Non-small cell | Results for this | | PELVIS W CONTRAST | e | 12:15 PM | cancer of right lung | procedure are in the | | | | PDT | ([facility]) | results section. | + +--------+ + + + documented in this encounter Results CT Chest Abdomen Pelvis w Contrast (08/18/2018 [...] seen within bilateral femoral necks within the [id number] | | body.IMPRESSION -No evidence for a [...] iohexol (OMNIPAQUE 350) 350 | Given | 18/20 | 90 mLs | | | | mg/mL injection 90 mL 90 mL, | | 18 12:14 | | | | | Intravenous, ONCE PRN, Other, for | | PM PDT | | | | | CT contrast study, Starting [place] | | | | | | | 18 at 1223, For 1 dose, | | | | | | | Radiology | | | | | | + +--------+ +--------+------+------+ +---+---+ | | | +---+---+ documented in this encounter"
--- OUTSIDE RECORDS SUMMARY | ~2020-07-17 | XMS | Encounter Summary ---
Demographics + + + | Address | [address] | | | [place] [address] | + + + | Home Phone [...] Team Providers + +------+ + | Care Middle [employer] English Teacher Name | Role | Phone | [...] [place], [place] | | | | | [place], | [address] | | | | | [place] [address] | | | | | | [phone] | | | +--------+ + + + [...] | | | | | | [place] | | | | | | [address] | | | | | | | [...] | Performed at: 01 - [facility] [address], | REFERENCE LAB | | [place], [place] [id number] Classification Counselor: Jesus Chaves MD, | [facility] | | Phone: [phone] | | + + + + + + + + | Performing | Address | City/State/Zipcode | Phone Number | | Organization | | | | + + + + + | REFERENCE LAB | [address] | [place], [place] | [phone] | | [facility] | [address] | [address] | | + + + + + [...] a third generation TSH | uIU/mL | [facility] | | | | test. | | [...] [address] | [place] | [phone] | | [facility] | | [address] | | | - LABORATORY | | | | + + + + + documented in this encounter Visit Diagnoses + + | Diagnosis | + + | Thyroid cancer (HCC) - Primary Malignant neoplasm of thyroid gland | + + documented in this encounter"
--- OUTSIDE RECORDS SUMMARY | ~2020-07-17 | XMS | Encounter Summary ---
Demographics + + + | Address | [address] | | | [place] [address] | + + + | Home Phone [...] Team Providers + +------+ + | Care Rolling Up Machine Operator Name | Role | Phone [...] | | | (ICD-9-CM) - | [address] | [address] [place] | | | | | Non-small | [place], | [place], [place] | | | | | cell cancer | [place] | [address] Phone: | | | | | of right | [address] | [phone] | | | | | lung | Phone: | Fax: | | | | | Procedures | [phone] | [phone] | | | | | [address] | Fax: | | | | | | | [phone] | | +--------+--------+ + + + + Encounter Details +--------+ + + + + | Date | Type | Department | Care Team | Description | +--------+ + + + + | 12/06/ | Hospital | [facility] | SalazarMilton | Thyroid cancer | | 2020 | Encounter | MED CTR MEDICAL | MD Bebeto [address] | (HCC); Non-small | | | | ONCOLOGY CLINIC [address] | [address] [place] | cell cancer of right | | | | [address] [place] | [place] [address] | lung (HCC); Adenoma | | | | [place] [address] | [phone] | of left adrenal | | | | [phone] | | gland; Diverticular | | | [...] of this encounter Progress Notes Amanda Mckenna, KEEL PRESS OPERATOR - 12/06/2019 3:40 PM PSTREVIEW OF SYSTEMS [...] follow up and labs My chart: Active uMilton jackson MD - 12/06/2019 3:40 PM PSTFormatting of this note might be different from the origi nal. Hem-Onc Progress Note [facility] Pt. Name/Age/: Olena Rider 59 y.o. 1960 Med. Record Number: [id number] Date of admission: (Not on file) Assessment and plan: 1. Non-small cell lung cancer, RL, Nov, 2016 Adenocarcinoma with mucinous features pT3 [...] grade pT1c pN 0(sn) ER+(99% , strong), IL+(60%, strong), Her2 non-amplified (FISH ratio 1.06) Status post left lumpectomy, sentinel lymph node biopsy, Dr. Luis Felipe Pugh, Septemb er, 2019 Review of today's laboratory testing and then [...] to resume treatment until our visit today. Patie nt however otherwise feeling well and is [...] by: Milton Salazar MD, 12/06/2019 2:19 PM [facility] TIME SPENT 20 MIN. > 50% AT BEDSIDE, WITH FAMILY/PATIENT IN CARE AND MILL STENCILER ON UNIT AND CO ORDINATION OF CARE Portions of this chart may have been created with Where voice recognition software. Occasi onal wrong-word or [...] [place] | | | | | | [place], [place] | | | | | | [address] | | | | | | | [...] | mL/min/1.73m2 | JOCE | | | Danish | RATE,ESTIMATED | | MEDICAL | | | | mL/min/1.47r1Sdav than | | CENTER - | | [...] [address] | [place] | [phone] | | [facility] | | [address] | | | - LABORATORY | | [...] | | | Cells | | | [facility] | | | | | | MEDICAL | | | | | | CENTER - | | | | | | LABORATORY | | + +-------+ + + + | Red Blood | 4.56 | 3.70 - 5.20 | [facility] | | | Cells | | M/uL | [facility] | | | | | | [...] | | nRBC | | K/uL | . JOCE | [...] ST. | [address] | [place] | [phone] | | [facility] | | [address] | | | - LABORATORY | | [...]
--- OUTSIDE RECORDS SUMMARY | ~2020-07-17 | XMS | Encounter Summary ---
Demographics + + + | Address | [address] | | | [place] [address] | + + + | Home Phone [...] Team Providers + +------+ + | Care Record Tabulating Clerk Name | Role | Phone | [...] | | | | | Procedures | [place] [address] | [place] | | | | | MRI Brain w | Phone: | [place], | | | | | wo Contrast | [phone] | [place] [address] | | | | | SEP 2020 | Fax: | Phone: | | | | | | [phone] | [phone] | | | | | | | Fax: | | | | | | | [phone] | + +--------+ + + + + Encounter Details +--------+ + + + + | Date | Type | Department | Care Team | Description | +--------+ + + + + | 06/18/ | Orders Only | [facility] | Susie Montemayor | Secondary | | 2020 | | MED CTR RADIATION | MD Jared [address] | adenocarcinoma of | | | | ONCOLOGY CLINIC [address] | [place], [place] | brain (HCC) (Primary | | | | [address] [place] | [address] | Dx) | | | | [place] [address] | | | | | | [phone] | | | +--------+ + + + [...] [place] | | | | | | [address] | | | | | | | | +--------+ + + + + + +---------+--------+ + + | Name | Type | Priori | Associated Diagnoses | Order Schedule | | | | ty | | | + +---------+--------+ + + | MRI Brain w wo | Imaging | Routin | Secondary | Expected: 09/18/2020 | | Contrast | | e | adenocarcinoma of | (Approximate), | | | | | brain (HCC) | Expires: 06/18/2021 | + +---------+--------+ + + documented as of this encounter Visit Diagnoses + + | Diagnosis | + + | 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
--- OUTSIDE RECORDS SUMMARY | ~2020-07-17 | XMS | Encounter Summary ---
Demographics + + + | Address | [address] | | | [place] [address] | + + + | Home Phone [...] Team Providers + +------+ + | Care Gas Controller Name | Role | Phone | + +------+ + | Zuleyka Martínez | PCP | | + +------+ + Encounter Details +--------+ + + + + | Date | Type | Department | Care Team | Description | +--------+ + + + + | 10/12/ | Hospital | [facility] | Susie Montemayor | Abnormal stress ECG | | 2016 | Encounter | MED CTR MEDICAL | MD Jared [address] | with treadmill | | | | ONCOLOGY CLINIC [address] | [place], [place] | (Primary Dx); | | | | [address] [place] | [address] | Malignant neoplasm | | | | [place] [address] | | of thyroid gland | | | | [phone] | | (HCC); Precordial | | | [...] [place] | | | | | | [address] | | | | | | | [...] ST. | [address] | [place] | [phone] | | [facility] | | [address] | | | - LABORATORY | | [...] [address] | [place] | [phone] | | [facility] | | [address] | | | - LABORATORY | | [...] [place] | | | | | | [address] | | | | + + + + + + | Thyroglobul | 0.5 (L)Comment: The | 1.2 - 35.0 | REFERENCE | | | in | [facility] [place] | ng/mL | LAB [facility] | | [...] [place] | | | | | | [address] | | | | + + + [...] [facility] | [address] | [place] [address] | [phone] | + + + + + documented [...]
--- OUTSIDE RECORDS SUMMARY | ~2020-07-17 | XMS | Encounter Summary ---
Demographics + + + | Address | [address] | | | [place] [address] | + + + | Home Phone [...] Team Providers + +------+ + | Care Drafting Layout Worker Name | Role | Phone | [...] | neoplasm of | Milton | [address] [place] | | | | | unspecified | MD Bebeto | [place], | | | | | part of | [address] | [place] [address] | | | | | right | ST [place] | Phone: | | | | | bronchus or | [place], [place] | [phone] | | | | | lung (HCC) | [address] | Fax: | | | | | Procedures | Phone: | [phone] | | | | | SC VITAMIN | [phone] | | | | | | B12 | Fax: | | | | | | INJECTION, | [phone] | | | | | | [address] | | | | | | | ONDANSETRON | | | | | | | HCL | | | | | | | INJECTION, 1 | | | | | | | MG SC | | | | | | | DEXAMETHASON | | | | | | | E SODIUM | | | | | | | PHOS, 1 MG | | | | | | | SC | | | | | | | FOSAPREPITAN | | | | | | | T INJECTION, | | | | | | | 1 MG SC IV | | | | | | | INFUSION, | | | | | | | HYDRATION, | | | | | | | 31-60 MIN | | | | | | | SC IV | | | | | | | INFUSION, | | | | | | | HYDRATION, | | | | | | | EA ADD HOUR | | | | | | | SC | | | | | | | PEMETREXED | | | | | | | INJECTION, | | | | | | | 10 MG SC | | | | | | | CISPLATIN 10 | | | | | | | MG | | | | | | | INJECTION | | | | | | | SC | | | | | | | DIPHENHYDRAM | | | | | | | INE HCL | | | | | | | INJECTIO, 50 | | | | | | | MG SC | | | | | | | ALBUTEROL | | | | | | | COMP CON, 1 | | | | | | | MG SC | | | | | | | ALBUTEROL | | | | | | | NON-COMP | | | | | | | CON, 1 MG | | | | | | | SC | | | | | | | METHYLPREDNI | | | | | | | SOLONE | | | | | | | INJECTION, | | | | | | | 125 MG SC | | | | | | | INJECTION, | | | | | | | FAMOTIDINE, | | | | | | | 20 MG SC | | | | | | | NORMAL | | | | | | | SALINE | | | | | | | SOLUTION | | | | | | | INFUS, 500 | | | | | | | ML SC | | | | | | | NORMAL | | | | | | | SALINE | | | | | | | SOLUTION | | | | | | | INFUS, 250 | | | | | | | ML SC | | | | | | | STERILE | | | | | | | WATER/SALINE | | | | | | | , 10 ML SC | | | | | | | CHEMOTHER, | | | | | | | IV PUSH,EA | | | | | | | ADD DRUG SC | | | | | | | CHEMOTHER, | | | | | | | IV INFUSION, | | | | | | | 1 HR SC | | | | | | | CHEMOTHER, | | | | | | | IV INFUSION, | | | | | | | EA HR SC | | | | | | | CHEMOTHER,NO | | | | | | | N-HORMONE | | | | | | | ANTI-NEOPL, | | | | | | | SUB-Q/IM SC | | | | | | | CHEMOTHER | | | | | | | HORMON | | | | | | | ANTINEOPL | | | | | | | SUB-Q/IM SC | | | | | | | | | | | | | | PALONOSETRON | | | | | | | HCL, 25 MCG | | | | | | | SC | | | | | | | CARBOPLATIN | | | | | | | INJECTION, | | | | | | | 50 MG | | | +--------+--------+ + + + + Encounter Details +--------+ + + + + | Date | Type | Department | Care Team | Description | +--------+ + + + + | 03/12/ | Hospital | [facility] | Milton Salazar | 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 Bebeto [address] | cancer of right lung | | | | INFUSION [address] | [address] [place] | (HCC) | | | | [place], | [place] [address] | | | | | [place] [address] | [phone] | | | | | [phone] | | | +--------+ + + + [...] | | | | | | ST [place], [place] | | | | | | [address] | | | | | | | [...] | | | | | Minutes, ONCE, Wed03/12/17 at | | | | | | [...]
--- OUTSIDE RECORDS SUMMARY | ~2020-07-17 | XMS | Encounter Summary ---
Demographics + + + | Address | [address] | | | [place] [address] | + + + | Home Phone [...] Team Providers + +------+ + | Care Shell Shop Supervisor Name | Role | Phone [...] + + | 04/27/ | Telephone | [facility] | Serenity Dunn, | Other (Survivorship) | | 2017 | | MED CTR MEDICAL | RN | | | | | ONCOLOGY CLINIC [address] | | | | | | [address] | | | | | | [place] [address] | | | | | | [phone] | | | +--------+ + + + [...] [place] | | | | | | [id number] | | | | | | | | +--------+ + + + + documented as of this encounter Visit Diagnoses Not on filedocumented in this encounter"
--- OUTSIDE RECORDS SUMMARY | ~2020-07-17 | XMS | Encounter Summary ---
Demographics + + + | Address | [address] | | | [place] [address] | + + + | Home Phone [...] Team Providers + +------+ + | Care Dining Services Director Name | Role | Phone | + +------+ + | Zuleyka Mratínez | PCP | | + +------+ + Encounter Details +--------+ + + + + | Date | Type | Department | Care Team | Description | +--------+ + + + + | 09/22/ | Hospital | [facility] | Susie Montemayor | Abnormal stress ECG | | 2016 | Encounter | MED CTR MEDICAL | MD Jared [address] | with treadmill | | | | ONCOLOGY CLINIC [address] | [place], [place] | (Primary Dx); | | | | [address] [place] | [address] | Thyroid cancer | | | | [place] [address] | | (HCC); Precordial | | | | [phone] | | pain | +--------+ + + [...] [place] | | | | | | [id number] | | | | | | | | +--------+ + + + + documented as of this encounter Procedures + +--------+ + + + | Procedure Name | Priori | Date/Time | Associated Diagnosis | Comments | | | ty | | | | + +--------+ + + + | THYROGLOBULIN | Routin | 09/22/2016 | Thyroid cancer | Results for this | | | e | 10:21 AM | (HCC) | procedure are in the | | | | PST | | results section. | + +--------+ + + + | TSH | Routin | 09/22/2016 | Thyroid cancer | Results for this | | | e | 10:21 AM | (HCC) | procedure are in the | | | | PST | | results section. | + +--------+ + + + documented in this encounter Results TSH (09/22/2016 10:21 AM PST) + + + + + + | Component | Value | Ref Range | Performed | Pathologist | | | | | At | Signature | + + + + + + | TSH | 1.23Comment: All TSH | 0.34 - 5.60 | [facility] | | | | samples are screened | uIU/mL | [facility] | | | | using a [...] + | [facility] [facility] | [address] | [place] | [phone] | | [facility] | | [address] | | | - LABORATORY | | [...] [place] | | | | | | [address] | | | | + + + + + + | Thyroglobul | 0.5 (L)Comment: The | 1.2 - 35.0 | REFERENCE | | | in | [facility] [place] | ng/mL | LAB [facility] | | | | Immunoenzymatic assay is [...] | | | | | | [address], [place] | | | | | | [address] | | | | + + + + + + + + | Specimen | + + | Blood specimen | | (specimen) | + + + + + + + | Performing | Address | City/State/Zipcode | Phone Number | | Organization | | | | + + + + + | [facility] | [address] | [place] [address] | [phone] | + + + + + documented [...]
--- OUTSIDE RECORDS SUMMARY | ~2020-07-17 | XMS | Encounter Summary ---
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 pT1c pN0 ER 99%, IA 60%, Her2 non-amplified. - Lucio genetic test [...] Exam performed in the presence of a medical editor. On upright exam breasts appear symm etric [...] M.D. Radiation Oncologist Department of Radiation Oncology [facility] Office: [phone] documented in this encounter Plan of Treatment +--------+ + + + + | Date | Type | Specialty | Care Team | Description | +--------+ + + + + | 11/22/ | Appointment | Radiation Oncology | Susie Montemayor | | | 2020 | | | MD Lazaro Coleman | | | | | | [facility] [place] | | | | | | [id number] | | | | | | | | +--------+ + + + + documented as of this encounter Visit Diagnoses + + | Diagnosis | + + | 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
--- OUTSIDE RECORDS SUMMARY | ~2020-07-17 | XMS | Encounter Summary ---
Demographics + + + | Address | [address] | | | [place] [address] | + + + | Home Phone [...] Team Providers + +------+ + | Care Teenage Program Director Name | Role | Phone | + +------+ + PCP | Unavailable | + +------+ + Encounter Details +--------+ + + + + | Date | Type | Department | Care Team | Description | +--------+ + + + + | 01/04/ | Hospital | [facility] | | | | 1999 | Encounter | MED CTR GENERIC OP | | | | | | CONV DEPT [address] | | | | | | [place], | | | | | | [place] [address] | | | | | | [phone] | | | +--------+ + + + [...] [place] | | | | | | [address] | | | | | | | | +--------+ + + + + documented as of this encounter Visit Diagnoses Not on filedocumented in this encounter"
--- OUTSIDE RECORDS SUMMARY | ~2020-07-17 | XMS | Encounter Summary ---
Demographics + + + | Address | [address] | | | [place] [address] | + + + | Home Phone [...] | | + + +---------+ + | Okasna Vitale | ECON | Unknown | | + + +---------+ + Care Team Providers + +------+ + | Care Broadcast News Producer Name | Role | Phone | + [...] + + + + | 09/27/ | [facility] | [facility] | Susie Montemayor | Primary malignant | | 2019 | Encounter | MED CTR RADIATION | MD Jared [address] | neoplasm of female | | | | ONCOLOGY CLINIC 401 | [place], [place] | breast (HCC) | | | | [address] [place] [facility] | [address] | (Primary Dx) | | | | [place] [address] | | | | | | [phone] | | | +--------+ + + + [...] [place] | | | | | | [place], [place] | | | | | | [address] | | | | | | | | +--------+ + + + + documented as of this encounter Visit Diagnoses + + | Diagnosis | + + | 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
--- OUTSIDE RECORDS SUMMARY | ~2020-07-17 | XMS | Encounter Summary ---
Demographics + + + | Address | [address] | | | [place] [address] | + + + | Home Phone [...] Team Providers + +------+ + | Care Fork Truck Driver Name | Role | Phone [...] | Luis Felipe Hamilton Jr., | [address] | | | | | lower lobe | MD [address] | [place], | | | | | of right | [address] | [place] [address] | | | | | lung (HCC) | [address] | Phone: | | | | | Procedures | [place], [place] | [phone] | | | | | CT Chest wo | [address] | Fax: | | | | | Contrast | Phone: | [phone] | | | | | | [phone] | | | | | | | Fax: | | | | | | | [phone] | | +--------+--------+ + + + + Reason for Visit Diagnostic/Screening (Routine) +--------+--------+ + + + + | Status | Reason | Specialty | Diagnoses / | Referred By | Referred To | | | | | Procedures | Contact | Contact | +--------+--------+ + + + + | Closed | | Radiology | Diagnoses | [place], | [address] | | | | | Cancer of | Luis Felipe Hamilton Jr., | [address] | | | | | lower lobe | [address] | [place], | | | | | of right | [address] | [place] [address] | | | | | lung (HCC) | [address] | Phone: | | | | | Procedures | [place], [place] | [phone] | | | | | CT Chest wo | [address] | Fax: | | | | | Contrast | Phone: | [phone] | | | | | | [phone] | | | | | | | Fax: | | | | | | | [phone] | | +--------+--------+ + + + + Encounter Details +--------+ + + + + | Date | Type | Department | Care Team | Description | +--------+ + + + + | 04/16/ | Hospital | [facility] | Luis Felipe Mon Jr., | Cancer of lower lobe | | 2017 | Encounter | MED CTR CT [address] | [address] | of right lung (HCC) | | | | [place], | [address] | | | | | [place] [address] | [place] [address] | | | | | [phone] | [phone] | | | | | | | [...] | | | | | | ST [place], [place] | | | | | | [address] | | | | | | | [...]
--- OUTSIDE RECORDS SUMMARY | ~2020-07-17 | XMS | Encounter Summary ---
Demographics + + + | Address | [address] | | | [place] [address] | + + + | Home Phone [...] Team Providers + +------+ + | Care Sample Sewer Name | Role | Phone | + [...] of right | MD Bebeto | [address] [place] | | | | | lung (HCC) | [address] | [place], | | | | | | [place] | [place] [address] | | | | | | [place], [place] | Phone: | | | | | | [address] | [phone] | | | | | | Phone: | Fax: | | | | | | [phone] | [phone] | | | | | | Fax: | | | | | | | [phone] | | +--------+ + + + + + Encounter Details +--------+ + + + + | Date | Type | Department | Care Team | Description | +--------+ + + + + | 03/12/ | Hospital | [facility] | Milton Salazar | Non-small cell | | 2017 | Encounter | MED CTR NUTRITION | MD Bebeto [address] | cancer of right lung | | | | SERVICES [address] | [address] [place] | (HCC) (Primary Dx) | | | | [place], | [place] [address] | | | | | [place] [address] | [phone] | | | | | [phone] | | | | | | | [...] ALBUMIN 3.6 03/12/2017 Estimated needs (wt. 80kg) 4305-8469 kcals/day 80 gm pro/day Medications: reviewed ASSESSMENT/PLAN: [...] | | | | [place] | | | | | | [address] | | | | | | | [...]
--- OUTSIDE RECORDS SUMMARY | ~2020-07-17 | XMS | Encounter Summary ---
Demographics + + + | Address | [address] | | | [place] [address] | + + + | Home Phone [...] Team Providers + +------+ + | Care Coordinator Hotels Name | Role | Phone | + [...] | MD [address] | [address] | | | | | thyroid | [address] | [place], | | | | | gland (HCC) | [place], | [place] | | | | | Procedures | [place] [address] | [address] | | | | | [place], | Phone: | Phone: | | | | | HEAD/NECK | [phone] | [phone] | | | | | TISSUES,REAL | Fax: | Fax: | | | | | TIME | [phone] | [phone] | +--------+--------+ + + + + Encounter Details +--------+ + + + + | Date | Type | Department | Care Team | Description | +--------+ + + + + | 07/03/ | Hospital | [facility] | Susie Montemayor | Thyroid cancer (HCC) | | 2017 | Encounter | MED CTR ULTRASOUND | MD Jared [address] | | | | | [address] [place] | [facility] [place] | | | | | [facility], [place] | [address] | | | | | [address] | | | | | | [phone] | [place], | | | | [...] [place] | | | | | | [address] | | | | | | | [...]
--- OUTSIDE RECORDS SUMMARY | ~2020-07-17 | XMS | Encounter Summary ---
Demographics + + + | Address | [address] | | | [place] [address] | + + + | Home Phone [...] Team Providers + +------+ + | Care Engine Service Repairer Name | Role | Phone | [...] + + + + | 03/12/ | [facility] | Milton Salazar | Non-small cell | | 2017 | Encounter | MED CTR MEDICAL | MD Bebeto [address] | cancer of right lung | | | | ONCOLOGY CLINIC [address] | [address] [place] | (HCC) (Primary Dx); | | | | [address] | [place] [address] | Malignant neoplasm | | | | [place] [address] | [phone] | of thyroid gland | | | | [phone] | | (HCC) | +--------+ + + [...] erent from the original. Hem-Onc Progress Note [facility] Pt. Name/Age/: Olena Rider 56 y.o. 1960 Med. Record Number: [id number] Date of admission: 03/12/2017 Assessment and plan: [...] second cycle of therapy swapping in the [place] agent, carboplatin in place of cisplatin as [...] Electronically signed by: Milton Salazar, 03/12/2017 7:49 [facility] TIME SPENT 20 MIN. > 50% AT BEDSIDE, WITH FAMILY/PATIENT IN CARE AND EDGER SAW OPERATOR ON UNIT AND CO ORDINATION OF CARE Portions of this chart may have been created with [employer] voice recognition software. Occasi onal wrong-word or [...] [place] | | | | | | [address] | | | | | | | [...] the | | | | PDT | ([facility]) | results section. | + +--------+ + + + | COMPREHENSIVE | STAT | 03/12/2017 | Non-small cell | Results for this | | METABOLIC PANEL | | 7:17 AM | cancer of right lung | procedure are in the | | | | PDT | ([facility]) | results section. | + [...] | Basophils | | K/uL | [facility] | [...] ST. | [address] | [place] | [phone] | | [facility] | | [address] | | | - LABORATORY | | [...] | mL/min/1.73m2 | JOCE | | | [place] | RATE,ESTIMATED | | MEDICAL | | | | mL/min/1.66u7Qmtl than | | CENTER - | | [...] + | [facility] | [address] | [place] | [phone] | | [facility] | | [id number] | | | - LABORATORY | | [...]
--- OUTSIDE RECORDS SUMMARY | ~2020-07-17 | XMS | Encounter Summary ---
Demographics + + + | Address | [address] | | | [place] [address] | + + + | Home Phone [...] Team Providers + +------+ + | Care Battery Mechanic Name | Role | Phone | [...] | | | [address] | [place] [address] | | | | | [place] [address] | | | | | | [phone] | | | +--------+ + + + [...] [address] | | | | | | [place], [place] | | | | | | [address] | | | | | | | [...]
--- OUTSIDE RECORDS SUMMARY | ~2020-07-17 | XMS | Encounter Summary ---
Demographics + + + | Address | [address] | | | [place] [address] | + + + | Home Phone [...] Team Providers + +------+ + | Care Soft Sugar Supervisor Name | Role | Phone | [...] | | | lung (HCC) | [address] | [address] | | | | | Procedures | Shakila Jhaver[place], | [place] | | | | | [address] | [place] | [address] Phone: | | | | | | [address] | [phone] | | | | | | Phone: | Fax: | | | | | | [phone] | [phone] | | | | | | Fax: | | | | | | | [phone] | | +--------+--------+ + + + + Encounter Details +--------+ + + + + | Date | Type | Department | Care Team | Description | +--------+ + + + + | 08/23/ | Hospital | [facility] | Milton Salazar | Non-small cell | | 2018 | Encounter | [facility] MED[facility] | MD Bebeto [address] | cancer of right lung | | | | ONCOLOGY CLINIC [address] | [address] [place] | (HCC) (Primary Dx) | | | | [address] [place] | [place] [address] | | | | | [place] [address] | [phone] | | | | | [phone] | | | +--------+ + + + [...] from the original. Hem-Onc Progress Note [facility] Pt. Name/Age/: Olena Rider 57 y.o. 1960 [facility]. 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 Cardiovascular: Denies chest pain, palpitations [...] Electronically signed by: Milton Salazar, 08/23/2018 15:41 [facility] TIME SPENT 25 MIN. > 50% AT BEDSIDE, WITH FAMILY/PATIENT IN CARE AND GAS STATION CASHIER ON UNIT AND CO ORDINATION OF CARE Portions of this chart may have been created with wikifolio voice recognition software. Occasi onal wrong-word or sound-alike substitutions may have occurred due to the inherent cervantes itations of voice recognition software. Please read the chart carefully and recognize, using context, where these substitutions have occurred. Amanda Wagner CMA - 08/23/2018 3:25 PM PDTREExpii, Inc. O F SYSTEMS Constitutional: Unchanged fatigue. Denies high fevers, shaking chills, anorexia, nausea, vo miting, weight loss, or night sweats. Appetite without changes. Ear, Nose, Mouth, Throat: Denies odynophagia, or tinnitus. Feels like food gets stuck in m y throat and it makes it hard to eat much. 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 Cardiovascular: Denies chest pain, palpitations [...] | | | | | | [place], [place] | | | | | | [address] | | | | | | | | +--------+ + + + + documented as of this encounter Visit Diagnoses + + | Diagnosis | + + | Non-small cell cancer of right lung (HCC) - Primary | + + documented in this encounter
--- OUTSIDE RECORDS SUMMARY | ~2020-07-17 | XMS | Encounter Summary ---
Demographics + + + | Address | [address] | | | [place] [address] | + + + | Home Phone [...] Team Providers + +------+ + | Care Electronic Funds Transfer Coordinator Name | Role | Phone | + +------+ + | Zuleyka Martínez | PCP | | + +------+ + Reason for Visit Diagnostic/Screening (Routine) +--------+--------+ + + + + | Status | Reason | Specialty | Diagnoses / | Referred By | Referred To | | | | | Procedures | Contact | Contact | +--------+--------+ + + + + | Closed | | Radiology | Diagnoses | [place], | [address] | | | | | Lung nodule | Susie M, | [address] [place] | | | | | Procedures | MD [address] | [place], | | | | | CT Chest | [address] | [place] [address] | | | | | wo Contrast | [place], | Phone: | | | | | CT Chest w | [place] [address] | [phone] | | | | | Contrast | Phone: | Fax: | | | | | | [phone] | [phone] | | | | | | Fax: | | | | | | | [phone] | | +--------+--------+ + + + + Encounter Details +--------+ + + + + | Date | Type | Department | Care Team | Description | +--------+ + + + + | 09/23/ | Hospital | [facility] | Susie Montemayor | Lung nodule | | 2016 | Encounter | MED CTR CT [address] | M, [address] | | | | | [place], | [place], [place] | | | | | [place] [address] | [address] | | | | | [phone] | | | +--------+ + + + [...] [place] | | | | | | [address] | | | | | | | | +--------+ + + + + documented as of this encounter Procedures + +--------+ + + + | Procedure Name | Priori | Date/Time | Associated Diagnosis | Comments | | | ty | | | | + +--------+ + + + | CT CHEST WO CONTRAST | Routin | 09/23/2016 | Lung nodule | Results for this | | | e | 3:17 PM | | procedure are in the | | | | PST | | results section. | + +--------+ + + + documented in this encounter Results CT Chest wo Contrast (09/23/2016 3:17 PM PST) + + | Specimen | + + | | + + + + + | Narrative | Performed At | + + + | UNENHANCED CHEST CT 09/23/2016 3:07 PM CLINICAL HISTORY: | [facility] | | Follow-up pulmonary nodule, concurrent thyroid cancer | | | COMPARISON: PET/CT June 17, chest CT June 02, CT abdomen January 01 | | | TECHNIQUE: Axial unenhanced images are performed through the chest, | | | along with multiplanar reformations. FINDINGS: The imaged | | | thyroid is not well evaluated on this unenhanced exam. Early | | | calcified plaque formation is again visible within the thoracic aorta | | | and proximal great vessels. The mediastinum otherwise has an | | | unremarkable unenhanced appearance. Previously described mildly | | | enlarged right hilar lymph node is stable to slightly smaller in | | | size, measuring 1.1 cm short axis on image 63. No new pathologic | | | lymph node enlargement is evident. There is no pneumothorax or | | | pleural effusion. Changes of centrilobular emphysema are again | | | apparent. There is a stable thin walled bulla in the left | | | infrahilar region. Few previously described pulmonary nodules | | | measuring 8 mm and 7 mm in the right lower lobe on images 71 and 114, | | | respectively, 3.5 mm in the posterior left costophrenic sulcus on | | | image 115 and 2.5 mm in the lingula on image 83 are stable. A 2.5 | | | mm nodule in the left upper lobe on image 54 is not visible with | | | confidence on previous imaging. No other new nodule or | | | consolidation is evident. There is similar mild, coarse opacity | | | medially in the right middle lobe, consistent with scar. Mosaic | | | attenuation in the mid to basilar lungs is less conspicuous. No | | | central airway abnormality is evident. Previously described | | | sclerotic lesions in the C7, T3 and L1 vertebral bodies and also | | | within the inferior sternal body are similar to previous. No new | | | lytic or blastic lesion is apparent. There is multilevel | | | spondylosis. Several small, rounded hypodensities measuring up to 6 | | | mm are again demonstrated within the imaged liver, favoring cysts. | | | There is a stable 12 mm low-attenuation left adrenal nodule, | | | consistent with an adenoma. The imaged upper abdomen is otherwise | | | unremarkable. IMPRESSION - 1. NEWLY VISIBLE TINY LEFT UPPER | | | LOBE LUNG NODULE COMPARED WITH IMAGING OF JUNE 2016, WITH FEW | | | ADDITIONAL STABLE SMALL PULMONARY NODULES MEASURING UP TO 8 MM IN | | | SIZE. A MILDLY PROMINENT RIGHT HILAR LYMPH NODE IS STABLE TO | | | SLIGHTLY SMALLER IN SIZE. CONTINUED CT SURVEILLANCE IS ADVISED. | | | CENTRILOBULAR EMPHYSEMA IS AGAIN APPARENT. 2. SIMILAR | | | NON-SPECIFIC SCLEROTIC BONE LESIONS. 3. STABLE SMALL HEPATIC | | | HYPODENSITIES FAVORING CYSTS. 4. SMALL LOW-ATTENUATION LEFT | | | ADRENAL NODULE CONSISTENT WITH AN ADENOMA. Dictated and Signed by: | | | Hugo Godfrey MD Electronically signed: 09/23/2016 5:12 PM | | + + + + + | Procedure Note | + + | Christopher, Rad Results In - 09/23/2016 5:15 PM PST UNENHANCED CHEST CT 09/23/2016 3:07 PM | | | | CLINICAL HISTORY: Follow-up pulmonary nodule, concurrent thyroid cancer | | | | COMPARISON: PET/CT June 17, chest CT June 02, CT abdomen January 01 | | | | TECHNIQUE: Axial unenhanced images are performed through the chest, along with | | multiplanar reformations. | | | | FINDINGS: The imaged thyroid is not well evaluated on this unenhanced exam. | | Early calcified plaque formation is again visible within the thoracic aorta and | | proximal great vessels. The mediastinum otherwise has an unremarkable | | unenhanced appearance. Previously described mildly enlarged right hilar lymph | | node is stable to slightly smaller in size, measuring 1.1 cm short axis on image | | 63. No new pathologic lymph node enlargement is evident. There is no | | pneumothorax or pleural effusion. | | | | Changes of centrilobular emphysema are again apparent. There is a stable thin | | walled bulla in the left infrahilar region. Few previously described pulmonary | | nodules measuring 8 mm and 7 mm in the right lower lobe on images 71 and 114, | | respectively, 3.5 mm in the posterior left costophrenic sulcus on image 115 and | | 2.5 mm in the lingula on image 83 are stable. A 2.5 mm nodule in the left upper | | lobe on image 54 is not visible with confidence on previous imaging. No other | | new nodule or consolidation is evident. There is similar mild, coarse opacity | | medially in the right middle lobe, consistent with scar. Mosaic attenuation in | | the mid to basilar lungs is less conspicuous. No central airway abnormality is | | evident. | | | | Previously described sclerotic lesions in the C7, T3 and L1 vertebral bodies and | | also within the inferior sternal body are similar to previous. No new lytic or | | blastic lesion is apparent. There is multilevel spondylosis. Several small, | | rounded hypodensities measuring up to 6 mm are again demonstrated within the | | imaged liver, favoring cysts. There is a stable 12 mm low-attenuation left | | adrenal nodule, consistent with an adenoma. The imaged upper abdomen is | | otherwise unremarkable. | | | | IMPRESSION - | | 1. NEWLY VISIBLE TINY LEFT UPPER LOBE LUNG NODULE COMPARED WITH IMAGING OF | | JUNE 2016, WITH FEW ADDITIONAL STABLE SMALL PULMONARY NODULES MEASURING UP TO | | 8 MM IN SIZE. A MILDLY PROMINENT RIGHT HILAR LYMPH NODE IS STABLE TO SLIGHTLY | | SMALLER IN SIZE. CONTINUED CT SURVEILLANCE IS ADVISED. CENTRILOBULAR EMPHYSEMA | | IS AGAIN APPARENT. | | | | 2. SIMILAR NON-SPECIFIC SCLEROTIC BONE LESIONS. | | | | 3. STABLE SMALL HEPATIC HYPODENSITIES FAVORING CYSTS. | | | | 4. SMALL LOW-ATTENUATION LEFT ADRENAL NODULE CONSISTENT WITH AN ADENOMA. | | | | Dictated and Signed by: Hugo Godfrey MD | | Electronically signed: 09/23/2016 5:12 PM | + + + +---------+ + [...]
--- OUTSIDE RECORDS SUMMARY | ~2020-07-17 | XMS | Encounter Summary ---
Demographics + + + | Address | [address] | | | [place] [address] | + + + | Home Phone [...] Team Providers + +------+ + | Care Waist Presser Name | Role | Phone | + +------+ + | Zuleyka Martínez | PCP | | + +------+ + Encounter Details +--------+ + + + + | Date | Type | Department | Care Team | Description | +--------+ + + + + | 09/28/ | Orders Only | [facility] | Susie Montemayor | Malignant neoplasm | | 2016 | | MED [facility] RAD[facility] | MD Jared [address] | of thyroid gland | | | | ONCOLOGY [address] | [address] [place] [facility] [place] | (HCC) (Primary Dx) | | | | [place], | [address] | | | | | [place] [address] | | | | | | [phone] | | | +--------+ + + + [...] | | | | | [address] [place] [facility] [place] | | | | | | [address] | | | | | | | | +--------+ + + + + documented as of this encounter Results Thyroglobulin,Reflex (10/14/2016 8:05 AM PST) + + [...] [place] | | | | | | [address] | | | | + + + + + + | Thyroglobul | 3.1Comment: [facility] | 1.2 - 35.0 | REFERENCE | | | in | [facility] | ng/mL | [facility] | [...] [place] | | | | | | [address] | | | | + + + + + + + + | Specimen | + + | Blood specimen | | (specimen) | + + + + + + + | Performing | Address | City/State/Zipcode | Phone Number | | Organization | | | | + + + + + | [facility]ENCE [facility] | [address] | [place] [address] | [phone] | + + + + + TSH (10/14/2016 8:05 AM PST) + + [...] ST. | [address] | [place] | [phone] | | [facility] | | [address] | | | - LABORATORY | | [...] Performed: NA[facility], [address] | | LAB [facility] | | | | [address], [place] | | | | | | [address] | | | | + + + [...] [place] | | | | | | [address] | | | | + + + [...] [facility] | [address] | [place] [address] | [phone] | + + + + + TSH [...] | + + + + + | [facility]. | [address] | [place] | [phone] | | [facility] | | [address] | | | - LABORATORY | | | | + + + + + documented in this encounter Visit Diagnoses + + | Diagnosis | + + | Malignant neoplasm of thyroid gland (HCC) - Primary Malignant neoplasm of thyroid | | gland | + + documented in this encounter"
--- OUTSIDE RECORDS SUMMARY | ~2020-07-17 | XMS | Encounter Summary ---
Demographics + + + | Address | [address] | | | [place] [address] | + + + | Home Phone [...] Team Providers + +------+ + | Care Methods Examiner Name | Role | Phone | + +------+ + | Zuleyka Martínez | PCP | | + +------+ + Encounter Details +--------+ + + + + | Date | Type | Department | Care Team | Description | +--------+ + + + + | 02/18/ | Clinical | [facility] | | Brain mass | | 2020 | Support | NEUROSURGERY [address] | | | | | | [address] | | | | | | [place], [place] | | | | | | [address] | | | | | | [phone] | | | +--------+ + + + [...] of this encounter Patient Instructions Patient Instructions rGisel Villa RN - 02/19/2020 10:15 AM PDTPreOp [...] concerns feel free to call us at [phone]. documented in this encounter Progress Notes Grisel [...] patient verbalized understandi ng of given instruction. [facility] will contact patient to schedule their scheduled [...] [place] | | | | | | [address] | | | | | | | | +--------+ + + + + documented as of this encounter Visit Diagnoses + + | Diagnosis | + + | Brain mass Unspecified condition of brain | + + documented in this encounter"
--- OUTSIDE RECORDS SUMMARY | ~2020-07-17 | XMS | Encounter Summary ---
Demographics + + + | Address | [address] | | | [place] [address] | + + + | Home Phone [...] + + + | Author | [facility] | | | and [place] | + + + | Organization | 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[facility]ATION | MD Jared [address] | adenocarcinoma of | | | | ONCOLOGY CLINIC [address] | [place], [place] | brain (HCC) (Primary | | | | [address] [place] [place] | [address] | Dx); Primary | | | | [place] [address] | | malignant neoplasm | | | | [phone] | | of female breast | | [...] The following imm obilization system was used: [employer] SRS mask The physicist was also available [...] Department of Radiation Oncology [facility] Office: [phone] documented in this encounter Plan of Treatment +--------+ + + + + | Date | Type | Specialty | Care Team | Description | +--------+ + + + + | 11/22/ | Appointment | Radiation Oncology | Susie Montemayor | | | 2020 | | | MD Jared [address] | | | | | | [place], [place] | | | | | | [address] | | | | | | | [...]
--- OUTSIDE RECORDS SUMMARY | ~2020-07-17 | XMS | Encounter Summary ---
Demographics + + + | Address | [address] | | | [place] [address] | + + + | Home Phone [...] Team Providers + +------+ + | Care Technology Internship Name | Role | Phone | + [...] | | | [address] [place] | [place] [address] | | | | | [place] [address] | | | | | | [phone] | | | +--------+ + + + [...] | | | | [place] | | | | | | [address] | | | | | | | [...]
--- OUTSIDE RECORDS SUMMARY | ~2020-07-17 | XMS | Encounter Summary ---
Demographics + + + | Address | [address] | | | [place] [address] | + + + | Home Phone [...] Team Providers + +------+ + | Care Typewriter Tester Name | Role | Phone | + +------+ + | Zuleyka Martínez | PCP | | + +------+ + Reason for Visit +--------+--------+ + | Reason | Onset | Comments | | | Date | | +--------+--------+ + | Other | 06/29/ | | | | 2017 | | +--------+--------+ + Encounter Details +--------+ + + + + | Date | Type | Department | Care Team | Description | +--------+ + + + + | 06/29/ | Telephone | [facility] | Susie Montemayor | Other | | 2017 | | MED CTR MEDICAL | MD Jared [address] | | | | | ONCOLOGY CLINIC [address] | [place], [place] | | | | | [facility] | [address] | | | | | [place] [address] | | | | | | [phone] | | | +--------+ + + + [...] this encounter Miscellaneous Notes Telephone Encounter - Candice Schmid RN - 06/29/2017 4:26 PM PDTLabs ordered per Dr. Womack onnell request. Labs faxed to [facility] in [place] at [phone]-fax confirmed. Patient notified. elephone En counter - Dandre Gustafson - 06/29/2017 2:11 PM PDTDrMaximiliano Fried wanted Olena to have h er labs drawn in 6 weeks. Olena is due for the labs now and is wondering if the lab orde r could be faxed to [facility] in [place]. Thank you. documented in this encounter Plan of Treatment +--------+ + + + + | Date | Type | Specialty | Care Team | Description | +--------+ + + + + | 11/22/ | Appointment | Radiation Oncology | Susie Montemayor | | | 2020 | | | MD Lazaro [address] | | | | | | [facility] [place] | | | | | | [address] | | | | | | | | +--------+ + + + + documented as of this encounter Visit Diagnoses Not on filedocumented in this encounter"
--- OUTSIDE RECORDS SUMMARY | ~2020-07-17 | XMS | Encounter Summary ---
Demographics + + + | Address | [address] | | | [place] [address] | + + + | Home Phone [...] Team Providers + +------+ + | Care Diet Kitchen Cook Name | Role | Phone | [...] of right | MD Bebeto | [address] | | | | | lung (HCC) | [address] | [place], | | | | | | [place] | [place] [address] | | | | | | [place], [place] | Phone: | | | | | | [address] | [phone] | | | | | | Phone: | Fax: | | | | | | [phone] | [phone] | | | | | | Fax: | | | | | | | [phone] | | +--------+ + + + + [...] W | | | | | | [place], | | | | | | [place] [address] | | | | | | [phone] | | | +--------+ + + + [...] of this encounter Progress Notes Jodi Delgadillo, [facility] - 01/27/2017 10:23 AM PDTFormatting of this note might be different fro m the original. IDT PATIENT MEDICATION/PROFILE REVIEW [facility]AC[facility] Pharmacy Recommendation _XX___ Observation only- 1) Will residence counselor patient to hold IBU x 2 days prior and 2 days afte r treatment dates 2) and to use caution with COOPERATIVE EDUCATION COORDINATOR depression around treatment dates, consider holding home-med [...] zolpidem = risk for excessive sedation and COOPERATIVE EDUCATION COORDINATOR depression, can be enhanced with fosaprepitant interaction. [...] might be differen t from the original. [facility] Interdisciplinary Team Navigational Checklist ? Top Priority Discipline EPIC Order Entered Consult Scheduled Consult Complete Comments: x *Medical Oncology Dr. Salazar *Radiation Oncology x *Patient Navigation x *Nurse Navigator x *Social Service Survivorship Nurse Breast Health Genetics Surgical Input x *Nursing assessment Cisplatin and Alimta x *Pharmacy assessment dlb 01/27/17 1) Will residence counselor patient to hold IBU x 2 days prior and 2 days after treatment dates 2) and to use caution with COOPERATIVE EDUCATION COORDINATOR depression around treatment date s, consider holding home-med alprazolam while using lorazepam x Nutrition 01/26/17--JT x Rehab: PT OT Speech & Language Palliative Care Clinical Trials Involvement Group Reservations Coordinator Visit Financial Assistance Interdisciplinary Consults Completed Date: [...] [place] | | | | | | [address] | | | | | | | [...]
--- OUTSIDE RECORDS SUMMARY | ~2020-07-17 | XMS | Encounter Summary ---
Demographics + + + | Address | [address] | | | [place] [address] | + + + | Home Phone [...] Team Providers + +------+ + | Care Product Inspection Supervisor Name | Role | Phone | [...] [address] | | | | | [place] OFFICE | [place], | [place], | | | | | OUTPATIENT | [place] | [place] [address] | | | | | [address] | [address] | Phone: | | | | | MINUTES | Phone: | [phone] | | | | | | [phone] | Fax: | | | | | | | [phone] | +--------+--------+ + + + + Encounter Details +--------+ + + + + | Date | Type | Department | Care Team | Description | +--------+ + + + + | 08/08/ | Hospital | [facility] | Susie Montemayor | Primary malignant | | 2019 | Encounter | MED [facility] RAD[facility] | MD Lazaro [address] | neoplasm of female | | | | ONCOLOGY CLINIC [address] | [place], [place] | breast (HCC) | | | | [address] | [address] | (Primary Dx) | | | | [place] [address] | | | | | | [phone] | Deni Hassan | | | | | | MD [address]az[address] | | | | | | [place], [place] | | | | | | [phone] | | | | | | | [...] patient at the request of Luis Felipe Mitchell MD for evaluation and consideration of radiotherapeutic [...] Patient was referred to Dr. Luis Felipe Mitchell who performed lumpectomy and sentinel node biopsy 07/06/2019 pathology was significant for invasive ductal cancer ER positive, MA + HER-2/flakita nega tive. Patient has been [...] US GUIDED BREAST BIOPSY RIGHT - Location: [facility] EXTERNAL IMAGING BREAST BIOPSY Right 06/15/2019 Procedure: US GUIDED BREAST BIOPSY RIGHT - Location: [facility] EXTERNAL IMAGING BREAST BIOPSY Right 06/15/2019 Procedure: US GUIDED BREAST BIOPSY RIGHT - Location: [facility] EXTERNAL IMAGING BREAST BIOPSY Right 07/06/2019 Procedure: [...] Exam performed in the presence of a word processing specialist. Breasts are symmetric in size there [...] a pathologic T1c N0 ER p ositive MA positive HER-2 negative invasive ductal breast cancer. [...] Ph.D. Radiation Oncologist Department of Radiation Oncology [facility] Office: [phone] signed by Deni Hassan MD at 08/08/2019 [...] [address] | | | | | | [place], [place] | | | | | | [id number] | | | | | | | [...]
--- OUTSIDE RECORDS SUMMARY | ~2020-07-17 | XMS | Encounter Summary ---
Demographics + + + | Address | [address] | | | [place] [address] | + + + | Home Phone [...] Providers + +------+ + | Care Supervisor Electric Motor Testing Name | Role | Phone | + [...] + + | 04/12/ | Hospital | [facility] | Milton Salazar | Non-small cell | | 2017 | Encounter | [facility] | MD Bebeto [address] | cancer of right lung | | | | [facility] CL[facility]IC [address] [place] | (HCC) (Primary Dx); | | | | [address] | [place] [address] | Malignant neoplasm | | | | [place] [address] | [phone] | of thyroid gland | | | | [phone] | | (HCC); Pneumothorax | | | [...] scheduled for CT scan.Milton Salazar Johnna Wagner, [facility] - 04/12/2017 8:24 AM PDTREVIEW OF SYSTEMS [...] [place] | | | | | | [place], [place] | | | | | | [id number] | | | | | | | [...] + | [facility] | [address] | [place], [place] | [phone] | | [facility] | | [address] | | | - LABORATORY | | | | + + + + + Magnesium (04/12/2017 8:09 AM PDT) + +-------+ + + + | Component | Value | Ref Range | Performed | Pathologist | | | | | At | Signature | + +-------+ + + + | Magnesium | 1.9 | 1.8 - 2.5 mg/dL | [facility] | [address] | [place], [place] | [phone] | | [facility] | | [address] | | | - LABORATORY | | [...] | non- | FILTRATION | mL/min/1.73m2 | [facility] | | | [place] | RATE,ESTIMATED | | MEDICAL | | | | mL/min/1.80l2Tjys than | | CENTER - | | [...] | | | | | mg/dL | [facility] | | | | [...] + + | [facility] | [address] | [place] | [phone] | | [facility] | | [address] | | | - LABORATORY | | [...]
--- OUTSIDE RECORDS SUMMARY | ~2020-07-17 | XMS | Encounter Summary ---
Demographics + + + | Address | [address] | | | [place] [address] | + + + | Home Phone [...] Providers + +------+ + | Care Quality Process Lead Name | Role | Phone | [...] | | | | | cancer | [address] | MD Bebeto | | | | | Procedures | Chelle Colon | [address] | | | | | NE OFFICE | Efrem | [place] | | | | | OUTPATIENT | [place] | [place] | | | | | NEW 60 | [address] | [address] Phone: | | | | | MINUTES | Phone: | [phone] | | | | | | [phone] | Fax: | | | | | | | [phone] | +--------+--------+ + + + + Encounter Details +--------+ + + + + | Date | Type | Department | Care Team | Description | +--------+ + + + + | 08/08/ | Hospital | [facility] | Milton Salazar | Primary malignant | | 2019 | Encounter | [facility] | MD [address]eb[address] | neoplasm of female | | | | [facility] CLINIC [address] | [address] [place] | breast (HCC) | | | | [address] [place] | [place] [address] | (Primary Dx) | | | | [place] [address] | [phone] | | | | | [phone] | | | +--------+ + + + [...] of this encounter Progress Notes Amanda Mckenna, HVAC SERVICE MANAGER - 08/08/2019 1:47 PM PDTREVIEW OF SYSTEMS [...] (R). Dx 019. Infiltrating ductal carcinoma (ER+, NE+) Her 2 (-). 5___, Para_4__, AB___, Miscarriage_1__ [...] [facility] Pt. Name/Age/: Olena Rider 58 y.o. 1960 Med. Record Number: [id number] Date of admission: 08/08/2019 Assessment and plan: [...] intermediate histologic grade pT1c pN0(sn) ER+(99%, strong), NE+(60%, strong), Her2 non-amplified (FISH ratio 1.06) Status [...] (R). Dx 2018. Infiltrating ductal carcinoma (ER+, NE+) Her 2 (-). 5___, Para_4__, AB___, Miscarriage_1__ [...] signed by: Milton Salazar MD, 08/08/2019 13:43 [facility] TIME SPENT 55 MIN. > 50% AT BEDSIDE, WITH FAMILY/PATIENT IN CARE AND AUGER MACHINE OFFBEARER ON UNIT AND CO ORDINATION OF CARE Portions of this chart may have been created with [employer] voice recognition software. Occasi onal wrong-word or [...] | | | | [place] | | | | | | [id number] | | | | | | | [...] - 1.030 | [facility] | | | [place], | | | [facility] | | [...] | | | Urine | | | [facility] | | | | | | MEDICAL | | | | | | CENTER - | | | | | | LABORATORY | | + + + + + + | Urine | Urine Culture Not | | [facility] | | | Comment | Indicated | | [facility] | | | [...] [address] | [place] | [phone] | | [facility] | | [address] | | | - LABORATORY | | [...]
--- OUTSIDE RECORDS SUMMARY | ~2020-07-17 | XMS | Encounter Summary ---
Demographics + + + | Address | [address] | | | [place] [address] | + + + | Home Phone [...] Providers + +------+ + | Care Electrical Foreman Name | Role | Phone | [...] | Malignant | Salazar, | [address] | | | | | neoplasm of | Milton | [place], | | | | | lower lobe | MD Bebeto | [place] | | | | | of right | [address] | [address] | | | | | lung (HCC) | [address] [place] | Phone: | | | | | Procedures | [place], [place] | [phone] | | | | | MRI Brain w | [address] | Fax: | | | | | wo Contrast | Phone: | [phone] | | | | | | [phone] | | | | | | | Fax: | | | | | | | [phone] | | +--------+--------+ + + + + [...] | | | (ICD-9-CM) - | [address] | [address] [place] | | | | | Non-small | [place], | [place], [place] | | | | | cell cancer | [place] | [address] Phone: | | | | | of right | [address] | [phone] | | | | | lung | Phone: | Fax: | | | | | Procedures | [phone] | [phone] | | | | | [address] | Fax: | | | | | | | [phone] | | +--------+--------+ + + + + Encounter Details +--------+ + + + + | Date | Type | Department | Care Team | Description | +--------+ + + + + | 01/07/ | Hospital | [facility] | Milton Salazar | Malignant neoplasm | | 2020 | Encounter | [facility] | MD [address] | of lower lobe of | | | | ONCOLOGY CLINIC [address] | [address] [place] | right lung (HCC) | | | | [address] [place] | [place] [address] | (Primary Dx); | | | | [facility] [place] [address] | [phone] | Non-small cell | | | | [phone] | | cancer of right lung | [...] Pt here for follow-up My chart: Declined unningham, Milton jara MD - 01/08/2020 12:40 PM PDTFormatting of this note might be different from the origin al. Hem-Onc Progress Note [facility] Pt. Name/Age/: Olena Rider 59 y.o. 1960 Med. Record Number: [id number] Date of admission: 01/08/2020 Assessment and plan: [...] grade pT1c pN 0(sn) ER+(99% , strong), OR+(60%, strong), Her2 non-amplified (FISH ratio 1.06) Status post left lumpectomy, sentinel lymph node biopsy, Dr. Luis Felipe Pugh, July, Counseling session this afternoon with patient, earlier discussion with patient's [facility] team and then recommendation to further evaluate [...] lateral ventricle. Patient recently discharged from short-term [facility] admission week following development of periorbital cellulitis. [...] PLT 283 322 Recent Labs Lab 01/05/20 0439 01/04/20 1017 NA 139 139 K 4.0 4.2 [...] by: Milton Salazar MD, 01/08/2020 12:34 PM [facility] TIME SPENT 25 MIN. > 50% AT BEDSIDE, WITH FAMILY/PATIENT IN CARE AND HUMAN PERFORMANCE PROFESSOR ON UNIT AND CO ORDINATION OF CARE Portions of this chart may have been created with [employer] voice recognition software. Occasi onal wrong-word or [...] [address] | | | | | | [place], [place] | | | | | | [address] | | | | | | | [...] AM HISTORY: | [facility] | | Brain/STOGY MAKER neoplasm, staging COMPARISON: CT ORBIT 01/04/2020 | [...] CONTRAST dated | | 01/22/2020 7:35 AMHISTORY: Brain/STOGY MAKER neoplasm, stagingCOMPARISON: CT ORBIT | | 01/04/2020TECHNIQUE: [...]
--- OUTSIDE RECORDS SUMMARY | ~2020-07-17 | XMS | Encounter Summary ---
Demographics + + + | Address | [address] | | | [place] [address] | + + + | Home Phone [...] Team Providers + +------+ + | Care Endo Tech Name | Role | Phone | [...] | | | (ICD-9-CM) - | [address] | [address] [place] | | | | | Non-small | [place], | [place], [place] | | | | | cell cancer | [place] | [address] Phone: | | | | | of right | [address] | [phone] | | | | | lung | Phone: | Fax: | | | | | Procedures | [phone] | [phone] | | | | | [address] | Fax: | | | | | | | [phone] | | +--------+--------+ + + + + Encounter Details +--------+ + + + + | Date | Type | Department | Care Team | Description | +--------+ + + + + | 04/10/ | Hospital | [facility] | Elmer Silva | Non-small cell | | 2020 | Encounter | [facility] | MD Trip [address] | cancer of right lung | | | | ON[facility]OGY CLINIC [address] | [place], [place] | ([facility]); Papillary | | | | [address] [facility] | [address] | thyroid carcinoma | | | | [place] [address] | | (HCC) | | | | [phone] | | | +--------+ + + + [...] memory and word finding. Most noticeable over th e past week. Notes not being able [...] alteration in genes commonly associated w ith regional company truck driver mutations in lung cancer. Does [...] PET criteria , now s/p SRS to DATA ENGINEER disease. 2. 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 Plan 1. Although there [...] Pain: Reports generalized joint pain. Rates at 4/10 today, [...] [address] | | | | | | [place], [place] | | | | | | [address] | | | | | | | | +--------+ + + + + documented as of this encounter Visit Diagnoses + + | Diagnosis | + + | Non-small cell cancer of right lung (HCC) | + + | Papillary thyroid carcinoma (HCC) Malignant neoplasm of thyroid gland | + + documented in this encounter
--- OUTSIDE RECORDS SUMMARY | ~2020-07-17 | XMS | Encounter Summary ---
Demographics + + + | Address | [address] | | | [place] [address] | + + + | Home Phone [...] Team Providers + +------+ + | Care Glass Mould Cleaner Name | Role | Phone | + +------+ + | Zuleyka Martínez | PCP | | + +------+ + Encounter Details +--------+ + + + + | Date | Type | Department | Care Team | Description | +--------+ + + + + | 12/06/ | Hospital | [facility] | Jean PaulZuleyka wagner, | Encounter for | | 2019 | Encounter | [facility] | MD [address] | follow-up | | | | [address] [place] | [address], | surveillance of | | | | [place], [place] | [place] [address] | thyroid cancer | | | | [address] | [phone] | | | | | [phone] | | | +--------+ + + + [...] | | | | | | [facility] [place] | | | | | | [address] | | | | | | | | +--------+ + + + + documented as of this encounter Procedures + +--------+ + + + | Procedure Name | Priori | Date/Time | Associated Diagnosis | Comments | | | ty | | | | + +--------+ + + + | US HEAD NECK SOFT | Routin | 12/06/2019 | Encounter for | Results for this | | TISSUE | e | 2:47 PM | follow-up | procedure are in the | | | | PST | surveillance of | results section. | | | | | thyroid cancer | | + +--------+ + + + documented in this encounter Results US Head Neck Soft Tissue (12/06/2019 2:47 PM PST) + + | Specimen | + + | | + + + + + | Impressions | Performed At | + + + | 1. SIMILAR MILDLY PROMINENT BILATERAL CERVICAL NODES WITHOUT | [facility] | | CONCLUSIVE NEW MASS OR OTHER ABNORMALITY. Dictated and Signed by: | | | Hugo Godfrey MD Electronically signed: 12/06/2019 3:38 PM | | + + + + + + | Narrative | Performed At | + + + | SOFT TISSUE NECK ULTRASOUND 12/06/2019 2:29 PM CLINICAL HISTORY: | [facility] | | Encounter for follow-up surveillance of thyroid cancer | | | COMPARISON: CHEST CT AUGUST 2019, ULTRASOUND MARCH 2018 FINDINGS: | | | Sonographic interrogation in the region of the thyroid bed identifies | | | no conclusive residual thyroid tissue or mass lesion. Structures | | | consistent with lymph nodes are again identified in the anterior | | | neck, measuring up to 1.8 x 0.8 x 1.0 cm on the right and 1.1 x 0.5 x | | | 1.0 cm on the left, which is similar to previous ultrasound. | | + + + + + | Procedure Note | + + | Christopher, Rad Results In - 12/06/2019 3:41 PM PST SOFT TISSUE NECK ULTRASOUND 12/06/2019 | | 2:29 PMCLINICAL HISTORY: Encounter for follow-up surveillance of thyroid | | cancerCOMPARISON: CHEST CT AUGUST 2019, ULTRASOUND MARCH 2018FINDINGS: Sonographic | | interrogation in the region of the thyroid bed identifiesno conclusive residual thyroid | | tissue or mass lesion. Structures consistentwith lymph nodes are again identified in | | the anterior neck, measuring up to 1.8x 0.8 x 1.0 cm on the right and 1.1 x 0.5 x 1.0 cm | | on the left, which is similarto previous ultrasound.IMPRESSION: 1. SIMILAR MILDLY | | PROMINENT BILATERAL CERVICAL NODES WITHOUT CONCLUSIVE NEWMASS OR OTHER | | ABNORMALITY.Dictated and Signed by: Hugo Godfrey MD Electronically signed: 12/06/2019 | | 3:38 PM | |to previous ultrasound. | | | |IMPRESSION: | |1. SIMILAR MILDLY PROMINENT BILATERAL CERVICAL NODES WITHOUT CONCLUSIVE NEW | |MASS OR OTHER ABNORMALITY. | | | |Dictated and Signed by: Hugo Godfrey MD | | Electronically signed: 12/06/2019 3:38 PM | + + + +---------+ + + | Performing | Address | City/State/Zipcode | Phone Number | | Organization | | | | + +---------+ + + | [facility] | | | | + +---------+ + + documented in this encounter Visit Diagnoses + + | Diagnosis | + + | Encounter for follow-up surveillance of thyroid cancer | + + documented in this encounter"
--- OUTSIDE RECORDS SUMMARY | ~2020-07-17 | XMS | Encounter Summary ---
Demographics + + + | Address | [address] | | | [place] [address] | + + + | Home Phone [...] Team Providers + +------+ + | Care Vice President Mission Integration Name | Role | Phone | + [...] [place] | | | | | | [address] | | | | | | [phone] | | | +--------+ + + + [...] | | | | | | [facility] [place] | | | | | | [address] | | | | | | | | +--------+ + + + + documented as of this encounter Visit Diagnoses Not on filedocumented in this encounter"
--- OUTSIDE RECORDS SUMMARY | ~2020-07-17 | XMS | Encounter Summary ---
Demographics + + + | Address | [address] | | | [place] [address] | + + + | Home Phone [...] Providers + +------+ + | Care Patient Service Representative Name | Role | Phone | [...] | ONCOLOGY [address] | [place] | | | | | [place], | [address] | | | | | [place] [address] | | | | | | [phone] | | | +--------+ + + + [...] given hx of angiogram in june. Electron ically signed by Susie Fried MD at 09/29/2016 [...] [address] | | | | | | [place], [place] | | | | | | [...]
--- OUTSIDE RECORDS SUMMARY | ~2020-07-17 | XMS | Encounter Summary ---
Demographics + + + | Address | [address] | | | [place] [address] | + + + | Home Phone [...] + + | Author | [facility] | | | and [place] | + + + | Organization | [facility] | | | [...] Team Providers + +------+ + | Care Artificial Candy Maker Name | Role | Phone | [...] | 08/04/ | Telephone | [facility] | Bernice Novoa | Scheduling Issues | | 2019 | | [facility] | Cornel, RN | | | | | ONCOLOGY CLINIC [address] | | | | | | [address] | | | | | | [place] [address] | | | | | | [phone] | | | +--------+ + + + [...]
[~2020-07-17 02:53] MED LIST changes: +AUGMENTIN 875-1 EACH PO; +BACTRIM DS TAB1 EACH PO; +CEFDINIR300 MG PO; +DOXYCYCLINE HY100 MG PO
--- OUTSIDE RECORDS SUMMARY | 2020-07-17 02:56 | XMS ---
PreManage Notification: SMITHA BUITRAGO Security Creative Writing Professor Events No recent Security Events currently on file CRITERIA MET - [facility] CARE PROVIDERS Miguelito Allison DO [facility] Current PHONE: [phone] BISMARK Unger Nurse Practitioner 04/04/2019-[facility] JOE PHONE: [phone] Augusto has no Care Guidelines for this patient. Jeri VISIT COUNT (12 MO.) 1 America Chamberlain TOTAL 3 NOTE: Visits indicate total known visits. ED/UCC VISIT TRACKING (12 MO.) 07/17/2020 02:54 [facility] TYPE: Emergency COMPLAINT: - LOSS OF RT SIDE FUNCTION 04/11/2020 19:18 [facility] TYPE: Emergency COMPLAINT: - LEFT EYE PAIN DIAGNOSES: - Nicotine dependence, unspecified, uncomplicated - Hordeolum externum right upper eyelid - Other fci (current) drug therapy - Allergy status to narcotic agent status [facility]/04/2020 09:[facility] DIAGNOSES: - Facial Swelling - Periorbital cellulitis - eye swelling INPATIENT VISIT TRACKING (12 MO.) 01/04/2020 09:27 [facility]: Medical Surgical DIAGNOSES: - Periorbital cellulitis [email or web address]
== END 2020-07-17 04:20 | disposition home or self-care (01) ==
LOC: ED 02:53
DX: C79.31 Secondary malignant neoplasm of brain (principal); C34.90 Malignant neoplasm of unspecified part of unspecified bronchus or lung; R53.1 Weakness; Z85.3 Personal history of malignant neoplasm of breast; Z85.850 Personal history of malignant neoplasm of thyroid; Z87.891 Personal history of nicotine dependence; Z88.5 Allergy status to narcotic agent; Z79.899 Other long term (current) drug therapy
CPT/HCPCS: 70450; 80053; 85025; 85610; 85730; 99285-25

== ENCOUNTER 2020-08-08 20:28 | Emergency (ER) | payer OTHER ==
[~2020-08-08] VITALS: Ht 172.7 cm; Wt 83.9 kg
--- OUTSIDE RECORDS SUMMARY | ~2020-08-08 | XMS | Encounter Summary ---
Demographics + + + | Address | [address] | | | [place] [address] | + + + | Home Phone | | + + + | Preferred Language | Unknown | + + + | Marital Status | Single | + + + | Judaism Affiliation | Unknown | + + + | Race | White | + + + | Ethnic Group | Not or | + + + Author + + + | Author | [facility] | | | and [place] | + + + | Organization | [facility] | | | and [place] | + + + | Address | Unknown | + + + | Phone | Unavailable | + + + Support + + +---------+ + | Name | Relationship | Address | Phone | + + +---------+ + | Jennifer Rider | ECON | Unknown | | + + +---------+ + | Oksana Vitale | ECON | Unknown | | + + +---------+ + Care Team Providers + +------+ + | Care Precision Devices Inspector/Tester Name | Role | Phone | + +------+ + | Zuleyka Martínez | PCP | | + +------+ + Reason for Visit + + + | Reason | Comments | + + + | Follow-up | | + + + Evaluate & Treat (Routine) +--------+--------+ + + + + | Status | Reason | Specialty | Diagnoses / | Referred By | Referred To | | | | | Procedures | Contact | Contact | +--------+--------+ + + + + | Closed | | Medical | Diagnoses | [facility] | [facility] | | | | Oncology / | Non-small | Medical | [facility] | | | | Oncology | cell cancer | Oncology | MD [facility] | | | | | of right | [facility] [address] | | | | | lung (HCC) | [address] | [address] | | | | | Procedures | [place], | [place] | | | | | [address] | [place] | [address] Phone: | | | | | | [address] | [phone] | | | | | | Phone: | Fax: | | | | | | [phone] | [phone] | | | | | | Fax: | | | | | | | [phone] | | +--------+--------+ + + + + Encounter Details +--------+ + + + + | Date | Type | Department | Care Team | Description | +--------+ + + + + | 03/18/ | Hospital | [facility] | [facility] Salazar | Non-small cell | | 2018 | Encounter | [facility] | [facility] [address] | cancer of right lung | | | | [facility] [address] | (HCC) (Primary Dx) | | | | [address] | [place] [address] | | | | | [place] [address] | [phone] | | | | | [phone] | | | +--------+ + + + + Social History + + + +--------+------+ | Tobacco Use | Types | Packs/Day | Years | Date | | | | | Used | | + + + +--------+------+ | Current Every Day | Cigarettes | 0.5 | 30 | | | Smoker | | | | | + + + +--------+------+ + +---+---+---+ | Smokeless Tobacco: | | | | | Never Used | | | | + +---+---+---+ + + +---------+ + | Alcohol Use | Drinks/Week | oz/Week | Comments | + + +---------+ + | Yes | | | once a month | + + +---------+ + + + + | Sex Assigned at | Date Recorded | | | | + + + | Not on file | | + + + documented as of this encounter Last Filed Vital Signs + + + + + | Vital Sign | Reading | Time Taken | Comments | + + + + + | Blood Pressure | 130/77 | 03/18/2018 9:22 AM | | | | | PDT | | + + + + + | Pulse | 72 | 03/18/2018 9:22 AM | | | | | PDT | | + + + + + | Temperature | 36.1 C (97 F) | 03/18/2018 9:22 AM | | | | | PDT | | + + + + + | Respiratory Rate | 16 | 03/18/2018 9:22 AM | | | | | PDT | | + + + + + | Oxygen Saturation | 99% | 03/18/2018 9:22 AM | | | | | PDT | | + + + + + | Inhaled Oxygen | - | - | | | Concentration | | | | + + + + + | Weight | 90.9 kg (200 lb 6.4 | 03/18/2018 9:22 AM | | | | oz) | PDT | | + + + + + | Height | - | - | | + + + + + | Body Mass Index | 30.47 | 11/04/2016 9:00 AM | | | | | PST | | + + + + + documented in this encounter Functional Status + + + + | Functional Status | Response | Date of Assessment | + + + + | Are you deaf or do you have serious | No | 11/06/2016 | | difficulty hearing? | | | + + + + | Are you blind or do you have serious | No | 11/06/2016 | | difficulty seeing, even when wearing | | | | glasses? | | | + + + + | Do you have serious difficulty walking or | No | 11/06/2016 | | climbing stairs? (5 years old or older) | | | + + + + | Do you have difficulty dressing or bathing? | No | 11/06/2016 | | (5 years old or older) | | | + + + + | Because of a physical, mental, or emotional | No | 11/06/2016 | | condition, do you have difficulty doing | | | | errands alone such as visiting a doctor's | | | | office or shopping? [15 years old or | | | | older)] | | | + + + + + + + + | Cognitive Status | Response | Date of Assessment | + + + + | Because of a physical, mental, or emotional | No | 11/06/2016 | | condition, do you have serious difficulty | | | | concentrating, remembering, or making | | | | decisions? (5 years old or older) | | | + + + + documented as of this encounter Medications at Time of Discharge + + + +---------+ + + | Medication | Sig | Dispensed | Refills | Start | End Date | | | | | | Date | | + + + +---------+ + + | ALPRAZolam (XANAX) | Take 0.125 mg by | | 0 | | | | 0.25 mg tablet | mouth 3 times daily | | | | | | | as needed. For | | | | | | | severe anxiety | | | | | + + + +---------+ + + | Multiple | Take 1 tablet by | | 0 | | | | Vitamins-Minerals | mouth Daily. | | | | | | (MULTIVITAMIN ADULT) | | | | | | | TABS | | | | | | + + + +---------+ + + | ondansetron | Take 4 mg by mouth | | 0 | | | | (ZOFRAN ODT) 4 mg | every 8 hours as | | | | | | disintegrating | needed for Nausea. | | | | | | tablet | | | | | | + + + +---------+ + + | traMADol (ULTRAM) | Take 50-100 mg by | | 0 | | | | 50 mg tablet | mouth 4 times daily | | | | | | | as needed for Pain. | | | | | + + + +---------+ + + | zolpidem (AMBIEN) | Take 10 mg by mouth | | 0 | | | | 10 mg tablet | nightly. | | | | | + + + +---------+ + + | calcium carbonate | Take 2 tablets by | | 0 | | | | (TUMS) 500 mg | mouth as needed. | | | | 9 | | chewable tablet | | | | | | + + + +---------+ + + | HYDROmorphone | Take 2-4 mg by mouth | | 0 | 01/03/20 | | | (DILAUDID) 2 mg | every 4 hours as | | | 17 | 9 | | tablet | needed. | | | | | + + + +---------+ + + | levothyroxine | Take 125 mcg by | | 0 | | | | (SYNTHROID) 125 mcg | mouth Every other | | | | 0 | | tablet | day. Before | | | | | | | breakfast. | | | | | | | Alternating with 112 | | | | | | | mcg tabs | | | | | + + + +---------+ + + documented as of this encounter Progress Notes Jhon Feliciano RN - 03/18/2018 9:34 AM PDTREVIEW OF SYSTEMS Constitutional: Reports "not quite the energy that I'd like to have." Reports nightly night sweats. Denies high fevers, shaking chills, anorexia, nausea, vomiting, weight loss, or nig ht sweats. Appetite without changes. Ear, Nose, Mouth, Throat: Denies odynophagia, dysphagia, or tinnitus. Cardiovascular: Reports dyspnea on exertion, resolves w/ rest. Denies shortness of breath, chest pain, palpitations or orthopnea. Respiratory: Denies cough, hemoptysis, or sputum production. Gastrointestinal: Report ongoing abdominal pain, LUQ. "I've had it forever, not sure why." Denies constipation, diarrhea, melena, or bright red blood per rectum. Genitourinary: Denies hematuria or dysuria. Musculoskeletal: Denies joint pain or tenderness. Neurologic: Reports ongoing R ear pain, varies in severity. Reports intermittent numbness/t ingling in feet. Denies headache, visual changes. Endocrine: Reports heat sensitivity, "can't stand the summer heat." Denies peripheral edema or cold intolerance. Hematologic: Denies spontaneous bruising or bleeding. Integumentary: Denies rash, wounds or other skin concerns. Pain: Reports pain "mostly in legs," taking Tylenol or ibuprofen, "occasionally will take a tramadol." Pain at rest is 4/10 but "can get to 10/10", with pain medication will subside t o 2/10 which is acceptable per pt. Note: here for follow-up w/ Dr Salazar My chart: Declined Milton Carrasquillo MD - 03/18/2018 9:09 AM PDTFormatting of this note might be dif ferent from the original. Hem-Onc Progress Note [facility] Pt. Name/Age/: Olena Rider 57 y.o. 1960 Med. Record Number: [id number] Date of admission: 03/18/2018 Assessment and plan: 1. Non-small cell lung cancer, RLL, Nov, 2016 Adenocarcinoma with mucinous features pT3 (two separate foci, 1.3, 1.0 cm), pN1, M0 StageIIIA S/p VATS RLL, Dec, 2016, Dr. Luis Felipe Mon EGFR mutation negative, FISH neg: ROS, ALK rearrangement PD-L1 low expression (3%) 2. Papillary carcinoma of the thyroid S/p thyroidectomy, LN excision S/p radio-iodine abllation, Oct, 2016 Review of results of a CT scan of the chest with images that I was able to personally view disclosing evidence of previous right upper lobectomy no other parenchymal or mediastinal ab normalities to suggest recurrent disease. This study was able to visualize the adrenal glan d demonstrating a stable adenoma. Discussion with regard to patient's heat sensitivity and fatigue with possibility of using hormone replacement therapy such as estrogen as a means of addressing both. We discussed re sults from earlier randomized phase 3 study, the woman's health initiative examining one or another means of hormone replacement therapy following menopause. For patient's such as Rosendo cuenca who do not have a uterus the ability to avoid use of progestational agents thought to convey safety with the use of estrogen replacement alone in terms of risk of breast cancer. Women on the study who received only estrogen is a hormone replacement therapy had an actua l lower incidence of breast cancer compared to control group. We will forward our notes to Dr. Cota for her opinion. Otherwise our follow-up will maranda nue at every 4 month rate Subjective: The patient chart and medications were reviewed in detail and the patient was seen and exam ined. Olena Rider is a 57 y.o. female returns today for follow-up monitoring a remission o f lung cancer. Interim history marked by continued substantial fatigue which has had a limiting effect on patient's activities including those after work. It's recalled the patient use to enjoy out of doors activities such as camping and hiking in this year patient has few if any plans fo r such. She describes considerable effort at work and in particular a sensitivity to heat w hich is a new symptom for her. She describes that if she is doing a long procedures such a' s wound VAC change that it will take all of her strength and that she comes out of the proce dure dripping wet. She is working with a agent broker, Dr. covington who is evaluating patien ts adrenal function. Recall also patients remission of papillary carcinoma of thyroid. PSH: Reviewed, no changes to admission H&P. Past Medical History: Diagnosis Date Anxiety Insomnia Malignant neoplasm of thyroid gland (HCC) PONV (postoperative nausea and vomiting) Review of Systems: Constitutional: Reports "not quite the energy that I'd like to have." Reports nightly night sweats. Denies high fevers, shaking chills, anorexia, nausea, vomiting, weight loss, or nig ht sweats. Appetite without changes. Ear, Nose, Mouth, Throat: Denies odynophagia, dysphagia, or tinnitus. Cardiovascular: Reports dyspnea on exertion, resolves w/ rest. Denies shortness of breath, chest pain, palpitations or orthopnea. Respiratory: Denies cough, hemoptysis, or sputum production. Gastrointestinal: Report ongoing abdominal pain, LUQ. "I've had it forever, not sure why." Denies constipation, diarrhea, melena, or bright red blood per rectum. Genitourinary: Denies hematuria or dysuria. Musculoskeletal: Denies joint pain or tenderness. Neurologic: Reports ongoing R ear pain, varies in severity. Reports intermittent numbness/t ingling in feet. Denies headache, visual changes. Endocrine: Reports heat sensitivity, "can't stand the summer heat." Denies peripheral edema or cold intolerance. Hematologic: Denies spontaneous bruising or bleeding. Integumentary: Denies rash, wounds or other skin concerns. Pain: Reports pain "mostly in legs," taking Tylenol or ibuprofen, "occasionally will take a tramadol." Pain at rest is 4/10 but "can get to 10/10", with pain medication will subside t o 2/10 which is acceptable per pt. Review of systems as above otherwise negative Scheduled Medications: Continuous Infusions: PRN Meds:. Allergy: Allergies Allergen Reactions Morphine And Related Other (See Comments) "unknown reaction - trouble breathing after hysterectomy" Current Outpatient Prescriptions on File Prior to Encounter Medication Sig Dispense Refill ALPRAZolam (XANAX) 0.5 mg tablet Take 0.5 mg by mouth 3 times daily as needed for Anxie ty. calcium carbonate (TUMS) 500 mg chewable tablet Take 2 tablets by mouth as needed. levothyroxine (SYNTHROID) 125 mcg tablet Take 125 mcg by mouth every morning (before br eakfast). Multiple Vitamins-Minerals (MULTIVITAMIN ADULT PO) Take by mouth Daily. ondansetron (ZOFRAN ODT) 4 mg disintegrating tablet Take 4 mg by mouth every 8 hours as needed for Nausea. traMADol (ULTRAM) 50 mg tablet Take 50 mg by mouth every 6 hours as needed for Pain. zolpidem (AMBIEN) 10 mg tablet Take 10 mg by mouth nightly as needed for Sleep. No current facility-administered medications on file prior to encounter. Objectives: on Min/Max Temp past 24 hours:No Data Recorded No intake or output data in the 24 hours ending 03/18/18 0909 Wt. Admission: Wt. Current: Physical Exam: Exam: General: The patient is alert and oriented. No acute distress. Psychiatric: Normal mood and affect. Diagnostic studies: CT CHEST W CONTRAST 03/11/2018 10:33 AM HISTORY: surveillance of resected ;lung cancer. COMPARISON: 08/17/2017 PROTOCOL: Axial images of the chest were obtained after uneventful administration of 75 mL Omnipaque 350. Coronal and sagittal reformations were acquired. FINDINGS: LUNGS: Mild bibasilar scarring. Lungs are generally clear. No evidence pneumothorax or pleural effusion. Stable appearance of a large subpleural bleb along the medial aspect of the left lower lobe. Stable postsurgical changes related to the right lower lobe. Stable intraluminal density along the right mainstem descending bronchus (series 4, image 66). Mild centrilobular emphysematous changes. No suspicious mass or nodule identified. Stable tiny 3 mm fissural nodule along the right major fissure, benign. Stable small 3 mm nodule in the inferior left lingula, benign HEART: The heart is of normal size. VASCULATURE: Aorta is normal in size and without evidence of dissection or aneurysmal dilation. The pulmonary arteries are unremarkable. Visualized venous structures are patent. LYMPH NODES: Stable borderline prominence of a 10 mm right hilar lymph node. Otherwise, no evidence of axillary, mediastinal, or hilar lymphadenopathy. Stable small left axillary lymph nodes. MEDIASTINUM: Trachea and esophagus are normal. Neck base is normal. ABDOMEN: The upper abdomen demonstrates no acute findings. Stable hypodensities are seen within the liver. Stable left adrenal adenoma. SOFT TISSUES: Chest wall structures are normal. BONES: There are no acute osseous abnormalities. Mild early multilevel thoracic spondylosis. IMPRESSION - Stable post surgical changes related to prior right lower lobectomy. No evidence of mediastinal lymphadenopathy or new pulmonary nodules to suggest metastasis. Dictated and Signed by: Chai Nguyen MD Electronically signed: 03/11/2018 1:20 PM Electronically signed by: Milton Salazar, 03/18/2018 9:09 [facility] TIME SPENT 25 MIN. > 50% AT BEDSIDE, WITH FAMILY/PATIENT IN CARE AND TRANSACTIONAL ATTORNEY ON UNIT AND CO ORDINATION OF CARE Portions of this chart may have been created with [employer] voice recognition software. Occasi onal wrong-word or sound-alike substitutions may have occurred due to the inherent cervantes itations of voice recognition software. Please read the chart carefully and recognize, using context, where these substitutions have occurred. documented in this encounter Plan of Treatment +--------+ + + + + | Date | Type | Specialty | Care Team | Description | +--------+ + + + + | 08/12/ | Appointment | Oncology | Elmer Silva | | | 2019 | | | MD [address] | | | | | | [place], [place] | | | | | | [phone] | | | | | | | | +--------+ + + + + | 08/12/ | Hospital | Infusion Therapy | Elmer Silva | | | 2019 | Encounter | | MD [address] | | | | | | [place] | | | | | | [address] | | | | | | | | +--------+ + + + + | 08/12/ | Appointment | Oncology | Lionel Benson | | | 2019 | | | [address] | | | | | | [address] | | | | | | [place] [address] | | | | | | [phone] | | | | | | | | +--------+ + + + + | 08/19/ | Appointment | Oncology | Elmer Silva | | | 2019 | | | Trip, MD [address] | | | | | | [place] | | | | | | [address] | | | | | | | | +--------+ + + + + | 08/19/ | Appointment | Infusion Therapy | Elmer Silva | | | 2019 | | | MD [address] | | | | | | [place] | | | | | | [id number] | | | | | | | | +--------+ + + + + | 08/26/ | Office | Oncology | | | | 2019 | Visit | | | | +--------+ + + + + | 08/26/ | Appointment | Infusion Therapy | | | | 2019 | | | | | +--------+ + + + + | 09/02/ | Office | Oncology | | | | 2019 | Visit | | | | +--------+ + + + + | 09/02/ | Appointment | Infusion Therapy | | | | 2020 | | | | | +--------+ + + + + | 09/09/ | Office | Oncology | Elmer Silva | | | 2019 | Visit | | MD [address] | | | | | | [place] | | | | | | [phone] | | | | | | | | +--------+ + + + + | 09/09/ | Appointment | Infusion Therapy | | | | 2019 | | | | | +--------+ + + + + | 09/16/ | Office | Oncology | Elmer Silva | | | 2019 | Visit | | MD [address] | | | | | | [place] | | | | | | [phone] | | | | | | | | +--------+ + + + + | 09/16/ | Appointment | Infusion Therapy | | | | 2019 | | | | | +--------+ + + + + | 09/23/ | Office | Oncology | Elmer Silva | | 2019 | Visit | | MD [address] | | | | | | [place] | | | | | | [address] | | | | | | | | +--------+ + + + + | 09/23/ | Appointment | Infusion Therapy | | | | 2019 | | | | | +--------+ + + + + | 11/22/ | Appointment | Radiation Oncology | Susie Montemayor | | | 2020 | | | MD [address] | | | | | | [place] | | | | | | [phone] | | | | | | | | +--------+ + + + + documented as of this encounter Visit Diagnoses + + | Diagnosis | + + | Non-small cell cancer of right lung (HCC) - Primary | + + documented in this encounter
--- OUTSIDE RECORDS SUMMARY | ~2020-08-08 | XMS | Encounter Summary ---
Demographics + + + | Address | [address] | | | [place] [address] | + + + | Home Phone | | + + + | Preferred Language | Unknown | + + + | Marital Status | Single | + + + | Anabaptist Affiliation | Unknown | + + + | Race | White | + + + | Ethnic Group | Not or | + + + Author + + + | Author | [facility] | | | and [place] | + + + | Organization | [facility] | | | and [place] | + + + | Address | Unknown | + + + | Phone | Unavailable | + + + Support + + +---------+ + | Name | Relationship | Address | Phone | + + +---------+ + | Jennifer Holt | ECON | Unknown | | + + +---------+ + | Oksana Vitale | ECON | Unknown | | + + +---------+ + Care Team Providers + +------+ + | Care Core Cutter Name | Role | Phone | + +------+ + | Zuleyka Martínez | PCP | | + +------+ + Reason for Visit Service/Procedure (Routine) +--------+--------+ + + + + | Status | Reason | Specialty | Diagnoses / | Referred By | Referred To | | | | | Procedures | Contact | Contact | +--------+--------+ + + + + | Closed | | Radiology | Diagnoses | Riegert, | [facility] | | | | | Malignant | Susie M, | Ultrasound | | | | | neoplasm of | MD [address] | | | | | thyroid | [address] | [place], | | | | | gland (HCC) | [place], | [place] | | | | | Procedures | [place] [address] | [address] | | | | | [place], | Phone: | Phone: | | | | | HEAD/NECK | [phone] | [phone] | | | | | TISSUES,REAL | Fax: | Fax: | | | | | TIME | [phone] | [phone] | +--------+--------+ + + + + Encounter Details +--------+ + + + + | Date | Type | Department | Care Team | Description | +--------+ + + + + | 07/03/ | Hospital | [facility] | Susie Montemayor | Thyroid cancer (HCC) | | 2017 | Encounter | MED CTR ULTRASOUND | MD Jared [address] | | | | | [address] [place] | [facility] [place] | | | | | [facility], [place] | [address] | | | | | [address] | | | | | | [phone] | Tres Kunz, | | | | | | Technologist | | +--------+ + + + + [...] + + documented as of this encounter Functional Status + + + [...] + + + +---------+ + + | folic acid | Take 1 tablet by | | 0 | 02/20/20 | | | (FOLVITE) 400 MCG | mouth Daily. During | | | 17 | 7 | | tabletIndications: | treatment with | | | | | | Non-small cell | PEMEtrexed. (This | | | | | | cancer of right lung | dose found in most | | | | | | (HCC) | multi-vitamins.) | | | | | + + [...] + + + +---------+ + + | LORazepam (ATIVAN) | Take 1 tablet by | 30 | 5 | 02/20/20 | | | 1 mg | mouth every 6 hours | tablet | | 17 | 7 | | tabletIndications: | as needed | | | | | | Non-small cell | (Nausea/Vomiting). | | | | | | cancer of right lung | | | | | | | (HCC) | | | | | | + + + +---------+ + + | potassium chloride | Take 1 tablet by | 30 | 1 | 04/12/20 | | | (KLOR-CON) 10 MEQ | mouth Daily. | tablet | | 17 | 7 | | ER tablet | | | | | | + + + +---------+ + + | UNABLE TO FIND | CBD oil 15 mg | | 0 | | | | | | | | | 7 | + + + +---------+ + + | UNABLE TO FIND | Protandim Supplement | | 0 | | | | | - given to her by | | | | 7 | | | Dr. Mon | | | | | + + + +---------+ + + | varenicline | Take 1 tablet by | 60 | 1 | 02/20/20 | | | (CHANTIX) 0.5 mg | mouth 2 times daily. | tablet | | 17 | 7 | | tablet | To help stop | | | | | | | smoking | | | | | + + + +---------+ + + documented as of this encounter Plan of Treatment +--------+ + + + + | Date | Type | Specialty | Care Team | Description | +--------+ + + + + | 08/12/ | Appointment | Oncology | Elmer Silva | | | 2019 | | | MD [address] | | | | | | [place] | | | | | | [address] | | | | | | | | +--------+ + + + + | 08/12/ | Hospital | Infusion Therapy | Elmer Silva | | 2019 | Encounter | | MD [address] | | | | | | [place] | | | | | | [address] | | | | | | | | +--------+ + + + + | 08/12/ | Appointment | Oncology | Lionel Benson | | | 2019 | | | J, PharmD [address] | | | | | | [address] [place] | | | | | | [place] [address] | | | | | | [phone] | | | | | | | | +--------+ + + + + | 08/19/ | Appointment | Oncology | Elmer Silva | | | 2019 | | | E, MD [address] | | | | | | [place] | | | | | | [address] | | | | | | | | +--------+ + + + + | 08/19/ | Appointment | Infusion Therapy | Elmer Silva | | | 2019 | | | E, [address] | | | | | | [place] | | | | | | [address] | | | | | | | [...] Office | Oncology | | | | 2020 | Visit | | | | +--------+ + + + + | 09/02/ | Appointment | Infusion Therapy | | | | 2020 | | | | | +--------+ + + + + | 09/09/ | Office | Oncology | Elmer Silva | | | 2019 | Visit | | E, MD [address] | | | | | | [address] [place], [place] | | | | | | [address] | | | | | | | | +--------+ + + + + | 09/09/ | Appointment | Infusion Therapy | | | | 2019 | | | | | +--------+ + + + + | 09/16/ | Office | Oncology | Elmer Silva | | | 2019 | Visit | | E, MD [address] | | | | | | [place], [place] | | | | | | [address] | | | | | | | [...] [place] | | | | | | [address] | | | | | | | | +--------+ + + + + | 09/23/ | Appointment | Infusion Therapy | | | 2019 | | | | | +--------+ + + + + | 11/22/ | Appointment | Radiation Oncology | Susie Montemayor | | | 2020 | | | MD [address] | | | | | | [place] | | | | | | [address] | | | | | | | | +--------+ + + + + documented as of this encounter Procedures + +--------+ + + + | Procedure Name | Priori | Date/Time | Associated Diagnosis | Comments | | | ty | | | | + +--------+ + + + | US HEAD NECK SOFT | Routin | 05/03/2017 | Thyroid cancer | Results for this | | TISSUE | e | 10:53 AM | (HCC) | procedure are in the | | | | PDT | | results section. | + +--------+ + + + documented in this encounter Results US Head Neck Soft Tissue (05/03/2017 10:53 AM PDT) + + | Specimen | + + | | + + + + + | Narrative | Performed At | + + + | US HEAD NECK SOFT TISSUE 05/03/2017 10:16 AM HISTORY: Thyroid | [facility] | | cancer surveillance. COMPARISON: None. PROTOCOL: Haywood scale | | | and Doppler images of the thyroid. FINDINGS: There has been | | | previous thyroidectomy with no definite evidence for residual thyroid | | | tissue. A hypoechoic structure is in the left neck that measures 1.6 | | | x 0.7 x 0.5 cm with appearance of a lymph node, although no clear | | | hilum is seen. There is associated vascularity. IMPRESSION - | | | Previous thyroidectomy with no definite evidence for residual thyroid | | | tissue. Hypoechoic structure in the left neck measuring 1.6 x 0.7 | | | x 0.5 cm, likely a lymph node. This is at the upper limits of normal | | | size, and continued imaging follow-up would be recommended as | | | clinically indicated. Dictated and Signed by: Iftikhar Larios MD | | | Electronically signed: 05/03/2017 12:50 PM | | + + + + + | Procedure Note | + + | Christopher, Rad Results In - 05/03/2017 12:53 PM PDT US HEAD NECK SOFT TISSUE 05/03/2017 10:16 | | AM HISTORY: Thyroid cancer surveillance.COMPARISON: None.PROTOCOL: Haywood scale and | | Doppler images of the thyroid.FINDINGS:There has been previous thyroidectomy with no | | definite evidence for residualthyroid tissue. A hypoechoic structure is in the left neck | | that measures 1.6 x0.7 x 0.5 cm with appearance of a lymph node, although no clear | | hilum is seen.There is associated vascularity.IMPRESSION -Previous thyroidectomy with no | | definite evidence for residual thyroid tissue.Hypoechoic structure in the left neck | | measuring 1.6 x 0.7 x 0.5 cm, likely alymph node. This is at the upper limits of normal | | size, and continued imagingfollow-up would be recommended as clinically | | indicated.Dictated and Signed by: Iftikhar Larios MD Electronically signed: 05/03/2017 12:50 | | PM | |0.7 x 0.5 cm with appearance of a lymph node, although no clear hilum is seen. | |There is associated vascularity. | | | |IMPRESSION - | |Previous thyroidectomy with no definite evidence for residual thyroid tissue. | | | |Hypoechoic structure in the left neck measuring 1.6 x 0.7 x 0.5 cm, likely a | |lymph node. This is at the upper limits of normal size, and continued imaging | |follow-up would be recommended as clinically indicated. | | | |Dictated and Signed by: Iftikhar Larios MD | | Electronically signed: 05/03/2017 12:50 PM | + + + +---------+ + + | Performing | Address | City/State/Zipcode | Phone Number | | Organization | | | | + +---------+ + + | [facility] | | | | + +---------+ + + documented in this encounter Visit Diagnoses + + | Diagnosis | + + | Thyroid cancer (HCC) Malignant neoplasm of thyroid gland | + + documented in this encounter"
--- OUTSIDE RECORDS SUMMARY | ~2020-08-08 | XMS | Encounter Summary ---
Demographics + + + | Address | [address] | | | [place] [address] | + + + | Home Phone | | + + + | Preferred Language | Unknown | + + + | Marital Status | Single | + + + | Jew Affiliation | Unknown | + + + | Race | White | + + + | Ethnic Group | Not or | + + + Author + + + | Author | [facility] | | | and [place] | + + + | Organization | [facility] | | | and [...] Team Providers + +------+ + | Care Taker Out Name | Role | Phone | + +------+ + | Zuleyka Martínez | PCP | | + +------+ + Encounter Details +--------+ + + + + | Date | Type | Department | Care Team | Description | +--------+ + + + + | 08/07/ | Imaging | [facility] | Provider, | | | 2019 | Exam | MED CTR EXTERNAL | MD [address] | | | | | IMAGING [address] | | | | | [address] [place] | [place] [address] | | | | | [facility] [address] | | | | | | [phone] | | | +--------+ + + + [...] | Elmer Silva | | 2019 | | | MD [address] | | | | | | [place] | | | | | | [address] | | | | | | | | +--------+ + + + + | 08/12/ | Hospital | Infusion Therapy | Elmer Silva | | | 2019 | Encounter | | MD [address] | | | | | | [place] | | | | | | [address] | | | | | | | | +--------+ + + + + | 08/12/ | Appointment | Oncology | Lionel Benosn | | 2019 | | | Ze Unger [address] | | | | | | [address] | | | | | | [place] [address] | | | | | | [phone] | | | | | | | | +--------+ + + + + | 08/19/ | Appointment | Oncology | Elmer Silva | | | 2019 | | | E, MD [address] | | | | | | [place] | | | | | | [address] | | | | | | | | +--------+ + + + + | 08/19/ | Appointment | Infusion Therapy | Elmer Silva | | | 2019 | | | E, MD [address] | | | | | | [place] | | | | | | [address] | | | | | | | [...] | Visit | | MD [address] | | | | | | [place] | | | | | | [address] | | | | | | | | +--------+ + + + + | 09/09/ | Appointment | Infusion Therapy | | | | 2019 | | | | | +--------+ + + + + | 09/16/ | Office | Oncology | Elmer Silva | | | 2019 | Visit | | E, MD [address] | | | | | | [place] | | | | | | [address] | | | | | | | | +--------+ + + + + | 09/16/ | Appointment | Infusion Therapy | | | | 2019 | | | | | +--------+ + + + + | 09/23/ | Office | Oncology | Elmer Silva | | | 2019 | Visit | | E, MD [address] | | | | | | [place] | | | | | | [address] | | | | | | | | +--------+ + + + + | 09/23/ | Appointment | Infusion Therapy | | | | 2019 | | | | | +--------+ + + + + | 11/22/ | Appointment | Radiation Oncology | Susie Montemayor | | | 2020 | | | MD [address] | | | | | | [facility] [place] | | | | | | [address] | | | | | | | | +--------+ + + + + documented as of this encounter Procedures + +--------+ + + + | Procedure Name | Priori | Date/Time | Associated Diagnosis | Comments | | | ty | | | | + +--------+ + + + | US GUIDED BREAST | Routin | 06/15/2019 | | Results for this | | BIOPSY RIGHT | e | 12:10 AM | | procedure are in the | | | | PDT | | results section. | + +--------+ + + + documented in this encounter Results US Guided Breast Biopsy Right (06/15/2019 12:10 AM PDT) + + | Specimen | + + | | + + + + + | Narrative | Performed At | + + + | External films for comparison only | [facility] | | | | | No results will be in the chart. | | + + + + +---------+ + + | Performing | Address | City/State/Zipcode | Phone Number | | Organization | | | | + +---------+ + + | [facility] | | | | + +---------+ + + documented in this encounter Visit Diagnoses Not on filedocumented in this encounter"
--- OUTSIDE RECORDS SUMMARY | ~2020-08-08 | XMS | Encounter Summary ---
Demographics + + + | Address | [address] | | | [place] [address] | + + + | Home Phone | | + + + | Preferred Language | Unknown | + + + | Marital Status | Single | + + + | Orthodox Affiliation | Unknown | + + + | Race | White | + + + | Ethnic Group | Not or | + + + Author + + + | Author | [facility] | | | and [place] | + + + | Organization | [facility] | | | and [...] Team Providers + +------+ + | Care Rod And Tube Straightener Name | Role | Phone | + +------+ + | Zuleyka Martínez | PCP | | + +------+ + Encounter Details +--------+ + + + + | Date | Type | Department | Care Team | Description | +--------+ + + + + | 01/28/ | Orders Only | [facility] | Susie Montemayor | Encounter for | | 2019 | | MED CTR RADIATION | MD Jared [address] | screening mammogram | | | | [facility] [address] [place], [place] | for high-risk | | | | [facility] [address] | patient (Primary Dx) | | | | [place] [address] | | | | | | [phone] | | | +--------+ + + + + Social History + + + +--------+------+ | Tobacco Use | Types | Packs/Day | Years | Date | | | | | Used | | + + + +--------+------+ | Current Some Day | Cigarettes | 0.5 | 30 [...] [place] | | | | | | [address] | | | | | | | | +--------+ + + + + | 08/12/ | Hospital | Infusion Therapy | Elmer Silva | | | 2019 | Encounter | | MD [address] | | | | | | [place] | | | | | | [address] | | | | | | | | +--------+ + + + + | 08/12/ | Appointment | Oncology | Lionel Benson | | | 2019 | | | J, Ze [address] | | | | | | [address] [place] | | | | | | [place] [address] | | | | | | [phone] | | | | | | | | +--------+ + + + + | 08/19/ | Appointment | Oncology | Elmer Silva | | | 2019 | | | MD [address] | | | | | | [place] | | | | | | [address] | | | | | | | | +--------+ + + + + | 08/19/ | Appointment | Infusion Therapy | Elmer Silva | | | 2019 | | | E, [address] | | | | | | [place] | | | | | | [address] | | | | | | | [...] | 09/09/ | Office | Oncology | Elmre Silva | | | 2019 | Visit | | MD [address] | | | | | | [place] | | | | | | [address] | | | | | | | [...] [place] | | | | | | [address] | | | | | | | [...] [place] | | | | | | [address] | | | | | | | | +--------+ + + + + | 09/23/ | Appointment | Infusion Therapy | | | | 2019 | | | | | +--------+ + + + + | 11/22/ | Appointment | Radiation Oncology | Susie Montemayor | | | 2020 | | | MD Jared [address] | | | | | | [place] | | | | | | [address] | | | | | | | | +--------+ + + + + documented as of this encounter Results ADAM Tomosynthesis Screening Bilateral (06/17/2020 1:42 PM PDT) + + | Specimen | + + | | + + + + + | Impressions | Performed At | + + + | BI-RADS CATEGORY 2: BENIGN FINDINGS. RECOMMENDATION: Normal | [facility] | | screening interval. Electronically signed by Milton Dewitt MD | | | 06/19/2020 8:32 AM | | + + + + + + | Narrative | Performed At | + + + | EXAM: ADAM TOMOSYN SCREENING BILATERAL dated 06/17/2020 10:37 AM | [facility] | | HISTORY: Routine Screening. Personal history of right breast cancer | | | diagnosed in 2019. The patient's mother and sister were diagnosed | | | with breast cancer at the age of 56 and 54. TECHNIQUE: Bilateral | | | digital CC and MLO. Alber synthesis is performed. CAD utilized. | | | COMPARISON: Mammograms dating back to 2009 FINDINGS: | | | Heterogeneously dense breast parenchyma is present bilaterally. | | | Postsurgical changes and distortion in the right breast. There are no | | | areas of developing architectural distortion. There are no | | | suspicious masses. There are no suspicious clusters of | | | microcalcifications. Multiple groups of microcalcifications in the | | | left breast, not significantly changed. Stable nodule in the medial | | | left breast. | | + + + + +---------+ + + | Performing | Address | City/State/Zipcode | Phone Number | | Organization | | | | + +---------+ + + | [facility] | | | | + +---------+ + + documented in this encounter Visit Diagnoses + + | Diagnosis | + + | Encounter for screening mammogram for high-risk patient - Primary | + + documented in this encounter"
--- OUTSIDE RECORDS SUMMARY | ~2020-08-08 | XMS | Encounter Summary ---
Demographics + + + | Address | [address] | | | [place] [address] | + + + | Home Phone | | + + + | Preferred Language | Unknown | + + + | Marital Status | Single | + + + | Spiritism Affiliation | Unknown | + + + | Race | White | + + + | Ethnic Group | Not or | + + + Author + + + | Author | [facility] | | | and [place] | + + + | Organization | [facility] [...] Team Providers + +------+ + | Care Construction Technician Name | Role | Phone | + +------+ + | Zuleyka Martínez | PCP | | + +------+ + Reason for Referral Diagnostic/Screening (Routine) + +--------+ + + + + | Status | Reason | Specialty | Diagnoses / | Referred By | Referred To | | | | | Procedures | Contact | Contact | + +--------+ + + + + | Pending | | Radiology | Diagnoses | Albina, | [facility] | | Review | | | Non-small | Susie M, | [place] | | | | | cell cancer | MD [address] | [place] [place] | | | | | of right | [address] | MEDICAL | | | | | lung (HCC) | [place], | CENTER [address] | | | | | Procedures | [place] [address] | [place] | | | | | CT Chest w | Phone: | [place], | | | | | Contrast | [phone] | [place] [address] | | | | | OCT 2020 | Fax: | Phone: | | | | | | [phone] | [phone] | | | | | | | Fax: | | | | | | | [phone] | + +--------+ + + + + Diagnostic/Screening (Routine) +--------+--------+ + + + + | Status | Reason | Specialty | Diagnoses / | Referred By | Referred To | | | | | Procedures | Contact | Contact | +--------+--------+ + + + + | Closed | | Radiology | Diagnoses | Albina, | [facility] | | | | | Non-small | Susie Jared, | F[place] | | | | | cell cancer | MD [address] | [place] | | | | | of right | [address] | MEDICAL | | | | | lung (HCC) | [place], | CENTER [address] | | | | | Secondary | [place] [address] | [place] | | | | | adenocarcino | Phone: | Shakila Jhaveri, | | | | | ma of brain | [phone] | [place] [address] | | | | | (HCC) | Fax: | Phone: | | | | | Procedures | [phone] | [phone] | | | | | MRI Brain w | | Fax: | | | | | wo Contrast | | [phone] | | | | | 3D OCT 2020 | | | +--------+--------+ + + + + Diagnostic/Screening (Urgent) +--------+--------+ + + + + | Status | Reason | Specialty | Diagnoses / | Referred By | Referred To | | | | | Procedures | Contact | Contact | +--------+--------+ + + + + | Closed | | Radiology | Diagnoses | Riegert, | [facility] | | | | | | Susie M, | [address] [place] | | | | | Radiculopath | MD [address] | [place], | | | | | y affecting | [address] | [place] | | | | | upper | [place], | [address] | | | | | extremity | [place] [address] | Phone: | | | | | Procedures | Phone: | [phone] | | | | | MRI Cervical | [phone] | Fax: | | | | | Spine w wo | Fax: | [phone] | | | | | Contrast | [phone] | | +--------+--------+ + + + + Reason for Visit + + + | Reason | Comments | + + + | Follow-up | | + + + Follow Up (Routine) + +--------+ + + + + | Status | Reason | Specialty | Diagnoses / | Referred By | Referred To | | | | | Procedures | Contact | Contact | + +--------+ + + + + | Authorized | | Radiation | Diagnoses | Tanya, | Albina, | | | | Oncology | Non-small | Zuleyka | Susie Coleman MD | | | | | cell cancer | [place] [address] | [address] | | | | | of right | [address] | [address] | | | | | lung (HCC) | [place], [place] | [place], | | | | | Secondary | [address] | [place] [address] | | | | | adenocarcino | Phone: | Phone: | | | | | ma of brain | [phone] | [phone] | | | | | (HCC) | Fax: | Fax: | | | | | Thyroid | [phone] | [phone] | | | | | Procedures | | | | | | | [place] OFFICE | | | | | | | OUTPATIENT | | | | | | | VISIT 25 | | | | | | | MINUTES | | | + +--------+ + + + + Encounter Details +--------+ + + + + | Date | Type | Department | Care Team | Description | +--------+ + + + + | 07/16/ | Hospital | [facility] | Susie Montemayor | Non-small cell | | 2019 | Encounter | [facility] | MD Jared [address] | cancer of right lung | | | | [facility]IN[facility] [address] | [place], [place] | (HCC) (Primary Dx); | | | | [address] [place] | [address] | Secondary | | | | [place] [address] | | adenocarcinoma of | | | | [phone] | | brain (HCC); | | | | | | Radiculopathy | | | | | | affecting upper | | | | | | extremity | +--------+ + + + + Social History + + + +--------+ + | Tobacco Use | Types | Packs/Day | Years | Date | | | | | Used | | + + + +--------+ + | Former Smoker | Cigarettes | 0.5 | 30 | Quit: 12/2019 | + + + +--------+ + + +---+---+---+ | Smokeless Tobacco: | | | | | Never Used | | | | + +---+---+---+ + + +---------+ + | Alcohol Use | Drinks/Week | oz/Week | Comments | + + +---------+ + | Not Currently | | | once a month | [...] + + + | Blood Pressure | 132/93 | 07/16/2020 4:03 PM | | | | | PDT | | + + + + + | Pulse | 93 | 07/16/2020 4:03 PM | | | | | PDT | | + + + + + | Temperature | 37.2 C (99 F) | 07/16/2020 4:03 PM | | | | | PDT | | + + + + + | Respiratory Rate | 20 | 07/16/2020 4:03 PM | | | | | PDT | | + + + + + | Oxygen Saturation | 100% | 07/16/2020 4:03 PM | | | | | PDT | | + + + + + | Inhaled Oxygen | - | - | | | Concentration | | | | + + + + + | Weight | 84.6 kg (186 lb 8.2 | 07/16/2020 4:03 PM | | | | oz) | PDT | | + + + + + | Height | - | - | | + + + + + | Body Mass Index | 27.95 | 02/27/2020 6:30 AM | | | | | PDT [...] + + + +---------+ + + | acetaminophen | Take 1,000 mg by | | 0 | | | | (TYLENOL) 500 mg | mouth every 6 hours | | | | | | tablet | as needed for Pain. | | [...] + + + +---------+ + + | Calcium 500 MG | Take 500 mg by mouth | | 0 | | | | TABS | Daily. | | | | | + + + +---------+ + + | cyclobenzaprine | Take 10 mg by mouth | | 0 | | | | (FLEXERIL) 10 mg | 3 times daily as | | | | | | tablet | needed for Muscle | | | | | | | spasms. | | | | | + + + +---------+ + + | DULoxetine | Take 30 mg by mouth | | 0 | | | | (CYMBALTA) [address] | 2 times daily. | | | | | | capsule | | | | | | + + + +---------+ + + | ibuprofen (ADVIL, | Take 200 mg by mouth | | 0 | | | | MOTRIN) 200 mg | every 6 hours as | | | | | | tablet | needed for Pain. | | | | | + + + +---------+ + + | levothyroxine | Take 125 mcg by | | 0 | | | | (SYNTHROID) 125 mcg | mouth every morning | | | | | | tablet | (before breakfast). | | | | | + + + +---------+ + + | Multiple | Take 1 tablet by | | 0 | | | | Vitamins-Minerals | mouth Daily. | | | | | | (MULTIVITAMIN ADULT) | | | | | | | TABS | | | | | | + + + +---------+ + + | omeprazole | Take 20 mg by mouth | | 0 | | | | (PRILOSEC) 20 mg | every morning | | | | | | capsule | (before breakfast). | | | | | + + [...] + + + +---------+ + + | exemestane | Take 1 tablet by | 90 | 3 | 12/06/19 | | | (AROMASIN) 25 MG | mouth Daily. | tablet | | 20 | 0 | | tablet | | | | | | + + + +---------+ + + | gabapentin | 1 tab at bed time | 90 | 2 | 07/16/20 | | | (NEURONTIN) 300 mg | for 1 day, then 1 | capsule | | 20 | 0 | | capsule | tab twice a day for | | | | | | | 1 day then 1 tab | | | | | | | three times a day.. | | | | | + + + +---------+ + + | oxyCODONE | Take 1 tablet by | 90 | 0 | 07/16/20 | | | (ROXICODONE) 5 mg | mouth every 6 hours | tablet | | 20 | 0 | | tablet | as needed For pain. | | | | | + + + +---------+ + + documented as of this encounter Progress Notes Susie Montemayor MD - 07/16/2020 4:00 PM PDT Radiation Oncology Follow-up Chief Complaint/ICD10 ICD-10-CM ICD-9-CM 1. Non-small cell cancer of right lung (HCC) C34.91 162.9 2. 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 - Pathology: Stage III, T1a N1a papillary thyroid cancer, bilateral, muiltifocal, largest in right lobe 1cm, positive margin, LVSI indeterminate and PNI present. Left lobe with 0.6 cm nodule, positive margin, LVSI and PNI present, 1/1 small lymph node positive. - 10/14/2016 PINEDA treatment with 94.1 mCi. - Monitored by Dr. Cipriano NICHOLAS. Non-small cell cancer of right lung (HCC) 01/26/2017 Initial Diagnosis Non-small cell cancer of right lower lobe, adenocarcinoma, acinar with mucinous/s ignet-ring featuresof the right lower lobe. - Right lower lobe pulmonary nodule with metabolic activity on PET/CT, identified during workup for thyroid cancer. - 12/30/16 Treated with right lower lobectomy and lymph node dissection. Stage IIIA, pT3 pN1. 2 foci in same lobe measuring 1.3 and 1 cm. Extensive lymphovascular space invasi on. One right level 11 lymph node with isolated tumor cells. R0 resection. EGFR, KRAS, ALK negative, PDL 1 (pembroluzimab receptor): 3%, ROS1 negative. - 04/2017 Completed adjuvant carboplatin/pemetrexed 4c. - 02/27/20 isolated and solitary brain metastasis, biopsy confirmed. Treated with SRT 27 Gy in 3 fractions, competed on 03/26/20. Primary malignant neoplasm of female breast (HCC) 06/25/2019 Initial Diagnosis Primary malignant neoplasm of right breast. - 05/25/2019 Clinically asymptomatic, presented for screening mammogram. - 07/06/2019 Lumpectomy and sentinel lymph node biopsy. Pathology: Invasive ductal carcinom a, grade 2, 1.8 cm, negative margin, no LVSI, 0/2 lymph nodes. pT1c pN0 ER 99%, [place] 60%, Her2 non-amplified. 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 - 10/04/2019 whole breast radiation with a lumpectomy cavity boost, total 50.04 Gy in 20 fra ction. - 12/06/2019 started adjuvant endocrine therapy with exemestane, ongoing. Olena Rider complete most recent radiation treatment, to a solitary brain metastasis 4 month sago, she returns for routine follow-up. Olena reports that she was in the urgent care last week in [place] due to extreme pain in her right arm starts in the right side of her neck through shoulder down the arm to her fingers. This has progressively been getting worse, onset was 1 month ago, started out as nu mbness in her right thumb, index and middle finger pain then began in her right shoulder and gradually went from her neck to the rest of her arm so intense that she is unable to hold h er new grandbaby, and in order to sleep at night is taking 3 ibuprofen's, 2 tylenol, 1 flexe ril, and tiger balm, she has now added 1 oxycodone that was just prescribed last week at [facility] ent care. She is only able to sleep a few hours at a time and wakes up in tears at night due to the pain. Rates the pain "off the charts 10+ at night, currently it is 8/10. No images w ere done at urgent care due to the fact that she was coming here today per Olena. Maintai ns normal strength in the arm and hand, numbness only affecting the finger tips. Pain is th e predominant symptom and described as an intense ache. Moderate palliation with above meds, limiting sleep. Not positional. No other new areas of pain. Ongoing treatment: bretestane Olena also reports that she has quit her job due to fatigue and memory changes. Review of systems: Constitutional: Reports fatigues easily. Reports intermittent nausea. Reports appetite is s till low but is eating. Denies high fevers, shaking chills, anorexia, nausea, vomiting, weig ht loss, or night sweats. Appetite without changes. Ear, Nose, Mouth, Throat: Denies odynophagia, dysphagia, or tinnitus. Cardiovascular: Reports dyspnea with exertion continues, this is something that had improve d for a while but has worsened again carrying a load of laundry upstairs makes her SOB. Repo rts noticed a few heart palpitations over the last few months. Denies shortness of breath, c hest pain, or orthopnea. Respiratory: Denies cough, hemoptysis, or sputum production. Gastrointestinal: Denies abdominal pain, constipation, diarrhea, melena, or bright red bloo d per rectum. Genitourinary: Denies hematuria or dysuria. Musculoskeletal: Reports severe right arm pain, onset 1 month ago has gradually gotten wors e rates pain 8/10 on scale of 0-10. Reports mild generalized joint pain as well. Neurologic: Reports daily severe headaches improved for a while after office visit in April, but now they are worse again, contributes this to the neck and arm pain and stress. Reports memory issues continue, quit job on 05/31/20 due to this and fatigue and pain continuing. Re ports "foggy" vision continues, unchanged. Reports that her three fingers in her right hand, thumb, index, and middle finger continue to be numb, reports "very mild" numbness in bilate ral feet and left hand "I have to think about if it is really there, nothing compared to my right fingers. Endocrine: Denies peripheral edema or heat/cold intolerance. Hematologic: Denies spontaneous bruising or bleeding. Integumentary: Denies rash, wounds or other skin concerns. Pain: Denies pain. Note: here for follow up with Dr. Montemayor My chart: Active Pain assessment: Location: right neck,shoulder, arm, and hand and fingers Pain Level: PAIN PROG PAIN LEVEL: 8 Pain Quality: Aching "intense" constant Current pain regimen: ibuprofen, acetaminophen, flexeril, tiger balm, and oxycodone (no mor e tablets left) Current Outpatient Medications Medication Sig Dispense Refill acetaminophen (TYLENOL) 500 mg tablet Take 1,000 mg by mouth every 6 hours as needed fo r Pain. ALPRAZolam (XANAX) 0.25 mg tablet Take 0.125 mg by mouth 3 times daily as needed. For s evere anxiety Calcium 500 MG TABS Take 500 mg by mouth Daily. cyclobenzaprine (FLEXERIL) 10 mg tablet Take 10 mg by mouth 3 times daily as needed for Muscle spasms. DULoxetine (CYMBALTA) [address] capsule Take 30 mg by mouth 2 times daily. exemestane (AROMASIN) 25 MG tablet Take 1 tablet by mouth Daily. 90 tablet 3 ibuprofen (ADVIL, MOTRIN) 200 mg tablet Take 200 mg by mouth every 6 hours as needed fo r Pain. levothyroxine (SYNTHROID) 125 mcg tablet Take 125 mcg by mouth every morning (before br eakfast). Multiple Vitamins-Minerals (MULTIVITAMIN ADULT) TABS Take 1 tablet by mouth Daily. omeprazole (PRILOSEC) 20 mg capsule Take 20 mg by mouth every morning (before breakfast ). ondansetron (ZOFRAN ODT) 4 mg disintegrating tablet Take 4 mg by mouth every 8 hours as needed for Nausea. oxyCODONE (ROXICODONE) 5 mg tablet Take 5 mg by mouth as needed For pain. traMADol (ULTRAM) 50 mg tablet Take 50-100 mg by mouth 4 times daily as needed for Pain . zolpidem (AMBIEN) 10 mg tablet Take 10 mg by mouth nightly. No current facility-administered medications for this encounter. Allergies Allergen Reactions Morphine Anaphylaxis,Other (See Comments) Patient states she has had no issues with Dilaudid or oxycodone. Adhesive & Tape Rash Skin breakdown Metal (Nickel) Rash Skin breakdown Intolerance Allergen Reactions Morphine And Related Other (See Comments) "unknown reaction - trouble breathing after hysterectomy" Vitals: 07/16/20 1603 BP: (!) 132/93 Pulse: 93 Resp: 20 Temp: 37.2 C (99 F) PainSc: 8 PainLoc: Arm Wt Readings from Last 3 Encounters: 07/16/20 84.6 kg (186 lb 8.2 oz) 04/23/20 84.9 kg (187 lb 2.7 oz) 04/10/20 83.7 kg (184 lb 8.4 oz) Physical Exam: General: Healthy appearing woman, emotionally distressed. KPS: 70-80 HEENT: Pupils equal, round and reactive to light. No conjunctival icterus or injection. EOM I. Oral, moist mucus membranes. Lymphatic: No cervical, supraclavicular or axillary lymphadenopathy. Cardiovascular: Regular rate and rhythm, no murmur. Pulmonary: Breath sounds heard throughout, no adventitial sounds or increased work of breat eiln at rest. Extremities: Upper and lower extremities warm and well perfused with no upper or lower extr emity edema. Neurologic: Alert, oriented and appropriated in conversation. CN II-IX 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. Moves all 4 extremities normally with normal gait. 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 Sensation intact, except at fingertips on f irst 3 digits on her right hand. Psychiatric: Appropriate, distressed. Musculoskeletal: No focal pain with palpation over neck shoulder elbow. Breast: Right breast status post lumpectomy, volume loss and mild scar retraction. On palp ation moderate fibrosis. No malignant skin changes. No concerning masses. Labs: No recent results. Imaging: Imaging studies were directly visualized and my assessment of pertinent findin06/17/2020 MRI Brain: Favorable response to radiosurgery at the solitary right caudate lesio n, reduced in size. No additional or new metastasis or concerning findings. 06/17/20 bilateral screening mammogram : Benign, BI-RADS Category 2 05/27/2020 CT Chest/Abdomen/Pelvis: Stable postoperative changes at the right bronchus inter medius. Increased anterior right lung fibrosis, status post right breast radiation. Stable 6 mm anterior right middle lobe nodule. Increased interstitial thickening around a pleural -based 8 mm right inferior anterior nodule. Right lung findings felt to be related to postr adiation change, continued monitoring recommended. Assessment and Plan: ICD-10-CM ICD-9-CM 1. Non-small cell cancer of right lung (HCC) C34.91 162.9 2. 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 We also went over r ecent imaging. She is experiencing a new pain syndrome at the right arm with peripheral flakita ropathy at the first 3 fingertips. Radicular symptoms extend up into the shoulder and neck, increasing concern for cervical spine pathology. Given the history of metastatic lung canc er and subacute onset I am concerned about metastasis of the cervical spine and have recomme nded an MRI of the cervical spine to be done as soon as possible. For pain management I will refill oxycodone 5 mg to be taken up to every 6 hours as needed for pain. She should also continue [id number]-ybn-[id number] ibuprofen and/or Tylenol. I will also add gabapentin titrating up to 300 mg 3 times a day, we may titrate further if needed. MRI of the brain from June is reassuring demonstrating favorable response to radiosurgery and no new lesions. Ongoing ORTHOTIC AIDE surveillance due in about 3 months. Follow-up CT of the c hest abdomen pelvis for disease surveillance also due in about 3 months. The studies will b e requested for October has ongoing surveillance for metastatic lung cancer. If any additi onal sites of metastatic disease are identified, she will pursue systemic treatment. At thi s time remains on observation. Pending cervical spine MRI results, will determine next steps for management of current nec k and right arm pain. At the latest she should follow-up with me in after next round of surveillance imaging. Breast exam does not demonstrate any evidence of disease recurrence and she is up-to-date o n mammography. She also continues to take adjuvant endocrine therapy, tolerating well. History of thyroid cancer monitored by Dr. Cota. Orders Placed This Encounter Procedures MRI Cervical Spine w wo Contrast MRI Brain w wo Contrast 3D CT Chest w Contrast Thank you for allowing me to participate in the care of Olena Rider. If you should h ave any questions regarding this evaluation, please do not hesitate to contact me. Susie Montemayor M.D. Radiation Oncologist Department of Radiation Oncology [facility] Office: [phone] documented in this encounter Plan of Treatment +--------+ + + + + | Date | Type | Specialty | Care Team | Description | +--------+ + + + + | 08/12/ | Appointment | Oncology | Elmer Silva | | | 2019 | | | MD [address] | | | | | | [facility] [place] | | | | | | [address] | | | | | | | | +--------+ + + + + | 08/12/ | Hospital | Infusion Therapy | Elmer Silva | | | 2019 | Encounter | | E, [address] | | | | | | [place] | | | | | | [address] | | | | | | | | +--------+ + + + + | 08/12/ | Appointment | Oncology | Lionel Benson | | | 2019 | | | J, PharmD [address] | | | | | | [address] [place] | | | | | | [place] [address] | | | | | | [phone] | | | | | | | | +--------+ + + + + | 08/19/ | Appointment | Oncology | Elmer Silva | | | 2019 | | | E, [address] | | | | | | [place], [place] | | | | | | [address] | | | | | | | | +--------+ + + + + | 08/19/ | Appointment | Infusion Therapy | Elmer Silva | | | 2019 | | | MD [address] | | | | | | [place] | | | | | | [address] | | | | | | | [...] [place] | | | | | | [id number] | | | | | | | [...] [place] | | | | | | [id number] | | | | | | | [...] [place] | | | | | | [address] | | | | | | | [...] [place] | | | | | | [id number] | | | | | | | | +--------+ + + + + + +---------+--------+ + + | Name | Type | Priori | Associated Diagnoses | Order Schedule | | | | ty | | | + +---------+--------+ + + | MRI Brain w wo | Imaging | Routin | Non-small cell | Expected: | | Contrast 3D | | e | cancer of right lung | 10/15/2020, Expires: | | | | | (HCC) Secondary | 07/16/2021 | | | | | adenocarcinoma of | | | | | | brain (HCC) | | + +---------+--------+ + + | CT Chest w Contrast | Imaging | Routin | Non-small cell | Expected: | | | | e | cancer of right lung | 10/15/2020, Expires: | | | | | (HCC) | 07/16/2021 | + +---------+--------+ + + documented as of this encounter Results MRI Cervical Spine w wo Contrast (07/19/2020 12:46 PM PDT) + + | Specimen | + + | | + + + + + | Impressions | Performed At | + + + | 1. Apparent mass filling a significant portion of the right C6-C7 | [facility] | | neural foramen measuring approximately 2.2 x 0.7 cm. A portion of this | | | may be artifactual. Please correlate to see if this fits with a C7 | | | nerve distribution radiculopathy. 2. Posterior disc protrusion | | | eccentric and more pronounced in the left posterior lateral aspect | | | causes moderate left neural foraminal narrowing as well as mild mass | | | effect on the left anterior cervical cord. Electronically | | | signed by Chai Nguyen MD 07/19/2020 5:39 PM | | + + + + + + | Narrative | Performed At | + + + | MRI CERVICAL SPINE W WO CONTRAST 07/19/2020 12:06 PM HISTORY: | [facility] | | Neck pain, history of cancer. COMPARISON: Prior to MRI of the | | | brain. PROTOCOL: Sagittal T2, sagittal T1, axial T2, axial GRE, | | | sagittal STIR, coronal STIR, coronal T1, sagittal T1 fat sat post | | | gadolinium, axial T1 fat sat post gadolinium. The patient was | | | administered 10 cc Gadavist. FINDINGS: Vertebral body height and | | | alignment is maintained. Mild multilevel disc desiccation and disc | | | space narrowing most pronounced at C5-C6. Prevertebral and paraspinal | | | soft tissues show no acute abnormality. Cervicomedullary junction | | | and atlantoaxial articulations are unremarkable. Imaged spinal cord | | | demonstrates normal signal with no evidence for myelomalacia or mass | | | lesions. Imaged upper thoracic spine and chest demonstrate no acute | | | findings. Postcontrast imaging demonstrates no abnormal focus of | | | enhancement or mass lesion. C2-3: Mild uncovertebral spondylosis | | | and facet spondylosis without significant neural foraminal or central | | | spinal stenosis. C3-4: Mild bilateral uncovertebral spondylosis | | | and facet spondylosis causing mild right and minimal left neural | | | foraminal narrowing. C4-5: Mild uncovertebral and facet | | | spondylosis causes mild bilateral neural foraminal narrowing. | | | C5-6: Posterior disc protrusion which is eccentric the more pronounced | | | along the left posterior lateral aspect causing moderate left neural | | | foraminal narrowing. Mild indentation and mass effect on the left | | | anterior cervical cord. 2 other smaller masses are seen at the | | | bilateral neural foramen of C5-C6 measuring 7 mm bilaterally. | | | C6-7: The dural based enhancing mass is seen filling the majority of | | | the right C6-C7 neural foramen likely causing mass effect on the | | | exiting right C7 nerve root. This mass area of enhancement measures | | | 2.2 x 0.7 cm. C7-T1: No central canal or neural foramina canal | | | stenosis. | | + + + + + | Procedure Note | + + | Christopher, [id number] - 07/19/2020 5:43 PM PDT MRI CERVICAL SPINE W WO CONTRAST 07/19/2020 | | 12:06 PM HISTORY: Neck pain, history of cancer.COMPARISON: Prior to MRI of the | | brain.PROTOCOL: Sagittal T2, sagittal T1, axial T2, axial GRE, sagittalSTIR, coronal | | STIR, coronal T1, sagittal T1 fat sat post gadolinium,axial T1 fat sat post gadolinium. | | The patient was administered 10 ccGadavist.FINDINGS:Vertebral body height and alignment | | is maintained. Mild multileveldisc desiccation and disc space narrowing most pronounced | | at C5-C6.Prevertebral and paraspinal soft tissues show no acute | | abnormality.Cervicomedullary junction and atlantoaxial articulations areunremarkable. | | Imaged spinal cord demonstrates normal signal with noevidence for myelomalacia or mass | | lesions. Imaged upper thoracic spineand chest demonstrate no acute findings. | | Postcontrast imagingdemonstrates no abnormal focus of enhancement or mass lesion.C2-3: | | Mild uncovertebral spondylosis and facet spondylosis withoutsignificant neural foraminal | | or central spinal stenosis.C3-4: Mild bilateral uncovertebral spondylosis and facet | | spondylosiscausing mild right and minimal left neural foraminal narrowing.C4-5: Mild | | uncovertebral and facet spondylosis causes mild bilateralneural foraminal | | narrowing.C5-6: Posterior disc protrusion which is eccentric the more pronouncedalong | | the left posterior lateral aspect causing moderate left neuralforaminal narrowing. Mild | | indentation and mass effect on the leftanterior cervical cord. 2 other smaller masses | | are seen at thebilateral neural foramen of C5-C6 measuring 7 mm bilaterally. C6-7: The | | dural based enhancing mass is seen filling the majority ofthe right C6-C7 neural foramen | | likely causing mass effect on theexiting right C7 nerve root. This mass area of | | enhancement measures2.2 x 0.7 cm. C7-T1: No central canal or neural foramina canal | | stenosis.IMPRESSION: 1. Apparent mass filling a significant portion of the right | | C6-T1ujcdrf foramen measuring approximately 2.2 x 0.7 cm. A portion of thismay be | | artifactual. Please correlate to see if this fits with a C3uhkoj distribution | | radiculopathy.2. Posterior disc protrusion eccentric and more pronounced in the | | leftposterior lateral aspect causes moderate left neural foraminalnarrowing as well as | | mild mass effect on the left anterior cervicalcord.Electronically signed by Chai | | MD Patrick 07/19/2020 5:39 PM | | | |C5-6: Posterior disc protrusion which is eccentric the more pronounced | |along the left posterior lateral aspect causing moderate left neural | |foraminal narrowing. Mild indentation and mass effect on the left | |anterior cervical cord. 2 other smaller masses are seen at the | |bilateral neural foramen of C5-C6 measuring 7 mm bilaterally. | | | |C6-7: The dural based enhancing mass is seen filling the majority of | |the right C6-C7 neural foramen likely causing mass effect on the | |exiting right C7 nerve root. This mass area of enhancement measures | |2.2 x 0.7 cm. | | | |C7-T1: No central canal or neural foramina canal stenosis. | | | | | |IMPRESSION: | |1. Apparent mass filling a significant portion of the right C6-C7 | |neural foramen measuring approximately 2.2 x 0.7 cm. A portion of this | |may be artifactual. Please correlate to see if this fits with a C7 | |nerve distribution radiculopathy. | | | |2. Posterior disc protrusion eccentric and more pronounced in the left | |posterior lateral aspect causes moderate left neural foraminal | |narrowing as well as mild mass effect on the left anterior cervical | |cord. 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
--- OUTSIDE RECORDS SUMMARY | ~2020-08-08 | XMS | Encounter Summary ---
Demographics + + + | Address | [address] | | | [place] [address] | + + + | Home Phone | | + + + | Preferred Language | Unknown | + + + | Marital Status | Single | + + + | Taoist Affiliation | Unknown | + + + | Race | White | + + + | Ethnic Group | Not or | + + + Author + + + | Author | [facility] | | | and [place] | + + + | Organization | [facility] | | | [...] Team Providers + +------+ + | Care Maintenance Foreman Name | Role | Phone | + +------+ + | Zuleyka Martínez | PCP | | + +------+ + Encounter Details +--------+ + + + + | Date | Type | Department | Care Team | Description | +--------+ + + + + | 08/08/ | Hospital | [facility] | Susie Montemayor | | | 2019 | Encounter | MED CTR RADIATION | Jared, [address] | | | | | ONCOLOGY [address] [place], [place] | | | | | [place], | [address] | | | | | [place] [address] | | | | | | [phone] | | | +--------+ + + + + Social History + + + +--------+------+ | Tobacco Use | Types | Packs/Day | Years | Date | | | | | Used | | + + + +--------+------+ | Former Smoker | Cigarettes | 0.5 | 30 | | + + + +--------+------+ + [...] +---------+ + + | ALPRAZolam (XANAX) | TK 1 TO 2 TS PO 3 XD | | 5 | 07/27/20 | | | 0.25 mg tablet | PRF SEVERE ANXIETY | | | 19 | 9 | + + + +---------+ + + | busPIRone (BUSPAR) | TK 1 TO 2 TS PO 3 XD | | 0 | 05/18/20 | | | 5 mg tablet | | | | 19 | 9 | + + + +---------+ + + | calcium carbonate | Take 2 tablets by | | 0 | | | | (TUMS) 500 mg | mouth as needed. | | | | 9 | | chewable tablet | | | | | | + + + +---------+ + + | celecoxib | TK 1 C PO BID | | 0 | 05/11/20 | | | (CELEBREX) 200 mg | | | | 19 | 9 | | capsule | | | | | | + + + +---------+ + + | ibuprofen (ADVIL, | Take 400-600 mg by | | 0 | | | | MOTRIN) 200 mg | mouth every 6 hours | | | | 0 | | tablet | as needed for Pain. | | | | | + + + +---------+ + + | levothyroxine | Take 112 mcg by | | 0 | 12/26/19 | | | (SYNTHROID) 112 mcg | mouth Every other | | | 19 | 0 | | tablet | day. Before | | | | | | | breakfast. | | | | | | | Alternating with 125 | | | | | | | [...] + + + +---------+ + + | lidocaine | Place 1 patch onto | | 0 | 10/24/20 | | | (LIDODERM) 5% patch | the skin. | | | 18 | 0 | + + + +---------+ + + | ondansetron | TK 1 T PO Q 6 HOURS | | 3 | 11/03/19 | | | (ZOFRAN) 4 mg tablet | PRN | | | 19 | 9 | + + + +---------+ + + documented as of this encounter Plan of Treatment +--------+ + + + + | Date | Type | Specialty | Care Team | Description | +--------+ + + + + | 08/12/ | Appointment | Oncology | Elmer Silva | | | 2020 | | | E, [address] | | | | | | [place] | | | | | | [address] | | | | | | | | +--------+ + + + + | 08/12/ | Hospital | Infusion Therapy | Elmer Silva | | 2019 | Encounter | | E, [address] | | | | | | [place] | | | | | | [address] | | | | | | | | +--------+ + + + + | 08/12/ | Appointment | Oncology | Lionel Benson | | | 2019 | | | J, PharmD [address] | | | | | [address] [place] | | | | | | [place] [address] | | | | | | [phone] | | | | | | | | +--------+ + + + + | 08/19/ | Appointment | Oncology | Elmer Silva | | | 2019 | | | E, [address] | | | | | | ST [place], [place] | | | | | | [address] | | | | | | | | +--------+ + + + + | 08/19/ | Appointment | Infusion Therapy | Elmer Silva | | | 2019 | | | EMD [address] | | | | | | [address] [place], [place] | | | | | | [address] | | | | | | | [...] [place] | | | | | | [address] | | | | | | | [...] [place] | | | | | | [address] | | | | | | | [...] [place] | | | | | | [address] | | | | | | | [...] [place] | | | | | | [address] | | | | | | | | +--------+ + + + + documented as of this encounter Visit Diagnoses Not on filedocumented in this encounter"
--- OUTSIDE RECORDS SUMMARY | ~2020-08-08 | XMS | Encounter Summary ---
Demographics + + + | Address | [address] | | | [place] [address] | + + + | Home Phone | | + + + | Preferred Language | Unknown | + + + | Marital Status | Single | + + + | Oriental Orthodox Affiliation | Unknown | + + + | Race | White | + + + | Ethnic Group | Not or | + + + Author + + + | Author | [facility] | | | and [place] | + + + | Organization | [facility] | | | [...] Team Providers + +------+ + | Care Sow Farm Technician Name | Role | Phone | + +------+ + | Zuleyka Martínez | PCP | | + +------+ + Encounter Details +--------+ + + + + | Date | Type | Department | Care Team | Description | +--------+ + + + + | 07/17/ | Imaging | [facility]Y | Provider, | | | 2019 | Exam | MED CTR EXTERNAL | MD [address] | | | | | IMAGING [address] | | | | | [address] [place] | [place] [address] | | | | | [place] [address] | | | | | | [phone] | | | +--------+ + + + [...] [place] | | | | | | [address] | | | | | | | | +--------+ + + + + | 08/12/ | Hospital | Infusion Therapy | Elmer Silva | | | 2019 | Encounter | | MD [address] | | | | | | [place] | | | | | | [address] | | | | | | | | +--------+ + + + + | 08/12/ | Appointment | Oncology | Lionel Benson | | | 2019 | | | Ze [address] | | | | | | [address] | | | | | | [place] [address] | | | | | | [phone] | | | | | | | | +--------+ + + + + | 08/19/ | Appointment | Oncology | Elmer Silva | | | 2019 | | | E, [address] | | | | | | [place], [place] | | | | | | [address] | | | | | | | | +--------+ + + + + | 08/19/ | Appointment | Infusion Therapy | Elmer Silva | | | 2019 | | | E, [address] | | | | | | [place], [place] | | | | | | [address] | | | | | | | [...] [place] | | | | | | [address] | | | | | | | [...] [place] | | | | | | [address] | | | | | | | [...] [place] | | | | | | [address] | | | | | | | | +--------+ + + + + | 09/23/ | Appointment | Infusion Therapy | | | | 2019 | | | | | +--------+ + + + + | 11/22/ | Appointment | Radiation Oncology | FabianoYe fryen | | | 2020 | | | MD Jared [address] | | | | | | [place] | | | | | | [address] | | | | | | | | +--------+ + + + + documented as of this encounter Procedures + +--------+ + + + | Procedure Name | Priori | Date/Time | Associated Diagnosis | Comments | | | ty | | | | + +--------+ + + + | CT HEAD WO CONTRAST | Routin | 07/17/2020 | | Results for this | | | e | 2:57 PM | | procedure are in the | | | | PDT | | results section. | + +--------+ + + + documented in this encounter Results CT Head wo Contrast (07/17/2020 2:57 PM PDT) + + | Specimen | [...]
--- OUTSIDE RECORDS SUMMARY | ~2020-08-08 | XMS | Encounter Summary ---
Demographics + + + | Address | [address] | | | [place] [address] | + + + | Home Phone | | + + + | Preferred Language | Unknown | + + + | Marital Status | Single | + + + | Congregational Affiliation | Unknown | + + + | Race | White | + + + | Ethnic Group | Not or | + + + Author + + + | Author | [facility] | | | and [place] | + + + | Organization | [facility] | | | [...] Team Providers + +------+ + | Care Senior Instructor Name | Role | Phone | + [...] | | | [address] [place] | [place] [address] | | | | | [facility] [place] [address] | | | | | | [phone] | | | +--------+ + + + [...] [place] | | | | | | [address] | | | | | | | | +--------+ + + + + | 08/12/ | Hospital | Infusion Therapy | Elmer Silva | | | 2019 | Encounter | | [address] | | | | | | [place] | | | | | | [address] | | | | | | | | +--------+ + + + + | 08/12/ | Appointment | Oncology | Lionel Benson | | 2019 | | | [address] | | | | | | [address] | | | | | | [place] [address] | | | | | | [phone] | | | | | | | | +--------+ + + + + | 08/19/ | Appointment | Oncology | Elmer Silva | | | 2019 | | | E, [address] | | | | | | [place] | | | | | | [address] | | | | | | | | +--------+ + + + + | 08/19/ | Appointment | Infusion Therapy | Elmer Silva | | | 2019 | | | E, [address] | | | | | | [place] | | | | | | [address] | | | | | | | [...] [place] | | | | | | [address] | | | | | | | [...] [place] | | | | | | [address] | | | | | | | [...] [place] | | | | | | [address] | | | | | | | [...] | | | | | | [address] [place] | | | | | | [id number] | | | | | | | | +--------+ + + + + documented as of this encounter Procedures + +--------+ + + + | Procedure Name | Priori | Date/Time | Associated Diagnosis | Comments | | | ty | | | | + +--------+ + + + | NM SENTINEL NODE | Routin | 07/06/2019 | | Results for this | | INJECTION WO IMAGES | e | 12:10 AM | | procedure are in the | | | | PDT | | results section. | + +--------+ + + + documented in this encounter Results NM [place] Node Injection wo Images (07/06/2019 12:10 AM PDT) + + | Specimen [...]
--- OUTSIDE RECORDS SUMMARY | ~2020-08-08 | XMS | Encounter Summary ---
Demographics + + + | Address | [address] | | | [place] [address] | + + + | Home Phone | | + + + | Preferred Language | Unknown | + + + | Marital Status | Single | + + + | Cheondoism Affiliation | Unknown | + + + [...] Team Providers + +------+ + | Care Nuclear Physicist Name | Role | Phone | + [...] | Radiology | Diagnoses | Albina, | [address] | | | | | Non-small | Susie M, | [address] | | | | | cell cancer | MD [address] | [place], | | | | | of right | [address] | [place] [address] | | | | | lung (HCC) | [place], | Phone: | | | | | Procedures | [place] [address] | [phone] | | | | | CT Chest | Phone: | Fax: | | | | | Abdomen | [phone] | [phone] | | | | | Pelvis w | Fax: | | | | | | Contrast | [phone] | | +--------+--------+ + + + + Reason for Visit Diagnostic/Screening (Routine) +--------+--------+ + + + + | Status | Reason | Specialty | Diagnoses / | Referred By | Referred To | | | | | Procedures | Contact | Contact | +--------+--------+ + + + + | Closed | | Radiology | Diagnoses | Alma Deliaert, | [address] | | | | | Non-small | Susie M, | [address] | | | | | cell cancer | [address] | [place], | | | | | of right | [address] | [place] [address] | | | | | lung (HCC) | [place], | Phone: | | | | | Procedures | [place] [address] | [phone] | | | | | CT Chest | Phone: | Fax: | | | | | Abdomen | [phone] | [phone] | | | | | Pelvis w | Fax: | | | | | | Contrast | [phone] | | +--------+--------+ + + + + Encounter Details +--------+ + + + + | Date | Type | Department | Care Team | Description | +--------+ + + + + | 05/27/ | Hospital | [facility] | Susie Montemayor | Non-small cell | | 2020 | Encounter | MED CTR [address] | MD Jared [address] | cancer of right lung | | | | [place], | [place] | ([facility]) | | | | [place] [address] | [address] | | | | | [phone] | | | +--------+ + + + [...] [place] | | | | | | [address] | | | | | | | | +--------+ + + + + | 08/12/ | Hospital | Infusion Therapy | Elmer Silva | | | 2019 | Encounter | | MD Lazaro Dominique | | | | | | [place] | | | | | | [address] | | | | | | | | +--------+ + + + + | 08/12/ | Appointment | Oncology | Lionel Benson | | | 2019 | | | Ze Unger [address] | | | | | | [address] [address] | | | | | | [place] [address] | | | | | | [phone] | | | | | | | | +--------+ + + + + | 08/19/ | Appointment | Oncology | Elmer Silva | | | 2019 | | | E, MD [address] | | | | | | [place] | | | | | | [address] | | | | | | | | +--------+ + + + + | 08/19/ | Appointment | Infusion Therapy | Elmer Silva | | | 2019 | | | E, [address] | | | | | | [place] | | | | | | [address] | | | | | | | [...] [place] | | | | | | [address] | | | | | | | [...] [place] | | | | | | [address] | | | | | | | [...] [place] | | | | | | [address] | | | | | | | | +--------+ + + + + | 09/23/ | Appointment | Infusion Therapy | | | | 2019 | | | | | +--------+ + + + + | 11/22/ | Appointment | Radiation Oncology | AlbinaYeen | | | 2020 | | | MD Jared [address] | | | | | | [place] | | | | | | [address] | | | | | | | | +--------+ + + + + documented as of this encounter Procedures + +--------+ + + + | Procedure Name | Priori | Date/Time | Associated Diagnosis | Comments | | | ty | | | | + +--------+ + + + | CT CHEST ABDOMEN | Routin | 05/27/2020 | Non-small cell | Results for this | | PELVIS W CONTRAST | e | 10:12 AM | cancer of right lung | procedure are in the | | | | PDT | ([facility]) | results section. | + +--------+ + + + documented in this encounter Results CT Chest Abdomen Pelvis w Contrast (05/27/2020 10:12 AM PDT) + + | Specimen | + + | | + + + + + | Impressions | Performed At | + + + | Similar size of the previous identified mildly hypermetabolic | [facility] | | anterior right middle lobe/minor fissure nodule measuring 6 mm. | | | However, there is increased surrounding interstitial thickening and | | | pleural-based nodularity measuring up to 8 mm. This may reflect focal | | | scarring/fibrosis versus metastasis. An infectious process is also a | | | less likely consideration. Similar distal right bronchus | | | intermedius nodular posterior wall thickening resulting in focal | | | stenosis. Interval decreased size of the complex fluid collection | | | at the right upper outer breast, most compatible with resolving | | | seroma/hematoma. Other chronic findings as above. | | | Electronically signed by Miko Ramsey MD 05/28/2020 1:16 PM | | + + + + + + | Narrative | Performed At | + + + | TECHNIQUE: After administration of 80 mL Omnipaque 350 intravenously | [facility] | | and negative oral contrast, axial CT imaging was obtained through | | | the chest, abdomen, and pelvis with coronal and sagittal reformats. | | | At least one of the following CT dose optimization techniques were | | | used: Automated exposure control; Adjustment of mA and/or kV | | | according to patient size; Use of iterative reconstruction technique. | | | CLINICAL INFORMATION: metastatic lung cancer COMPARISON: | | | PET/CT dated 02/06/[address] dated 08/08/2019, 08/18/2018. | | | FINDINGS: BONES: No acute osseous abnormality. Stable sclerotic | | | lesion at L1 vertebral body and probable bone island at the left | | | femoral head. Right total hip arthroplasty changes. CHEST: Chest | | | Wall: No supraclavicular or axillary lymphadenopathy. Right axillary | | | surgical clips are noted. Diminished size of the complex fluid | | | collection at the right upper outer breast currently measuring up to | | | 2.5 cm. Mediastinum and sailaja: No lymphadenopathy. Heart and | | | pericardium: Heart size is normal. No pericardial effusion. Minimal | | | coronary artery calcifications are evident. Vessels: Normal caliber | | | of the thoracic aorta. No large central pulmonary artery filling | | | defect identified. Lungs: Right lower lobectomy changes. Stable | | | mild emphysematous changes. Anterior minor fissure 6 mm nodule is | | | stable in size compared to PET/CT but demonstrates increased | | | surrounding pleural parenchymal scarring and interstitial thickening. | | | Associated pleural-based nodular components at the inferior right | | | upper lobe measuring up to 8 mm. Large airways: Similar soft tissue | | | nodularity along the posterior inner wall of the distal right | | | bronchus intermedius resulting in moderate narrowing. This is best | | | appreciated on series 4 images 42-44. Pleura: No pleural effusion or | | | pneumothorax. ABDOMEN/PELVIS: Abdominal wall: Fat-containing | | | right paramedian supraumbilical ventral hernia, the neck measures 1.3 | | | cm. Small fat-containing umbilical hernia. Liver: Stable | | | appearance of multiple subcentimeter hepatic hypodensities, too small | | | to fully characterize but likely represent small cysts. No soft | | | tissue mass identified. Gallbladder: No calcified gallstones. Normal | | | caliber wall. Pancreas: No mass or ductal dilatation. Spleen: | | | Unremarkable. Adrenals: Stable low-density left adrenal nodule. | | | Kidneys: Stable anterior right superior pole renal cyst measuring up | | | to 1.8 cm. Adjacent subcentimeter right renal hypodensity is too small | | | to fully characterize. Duplicated left collecting system. Ureters: | | | No hydroureter. Urinary Bladder: No wall thickening. Reproductive | | | organs: Hysterectomy changes. Bowel: Multiple small sigmoid colon | | | diverticula without pericolonic inflammation. Appendectomy changes. | | | No evidence of bowel obstruction. Peritoneum/retroperitoneum: No | | | ascites, free air, or lymphadenopathy. Vessels: Normal caliber of the | | | abdominal aorta. | | + + + + + | Procedure Note | + + | Christopher, [id number] - 05/28/2020 1:20 PM PDT TECHNIQUE: After administration of 80 mL | | Omnipaque 350 intravenouslyand negative oral contrast, axial CT imaging was obtained | | through thechest, abdomen, and pelvis with coronal and sagittal reformats.At least one | | of the following CT dose optimization techniques wereused: Automated exposure control; | | Adjustment of mA and/or kV accordingto patient size; Use of iterative reconstruction | | technique.CLINICAL INFORMATION: metastatic lung cancerCOMPARISON: PET/CT dated 02/06/2020 | | and CT dated 08/08/2019, 08/18/2018.FINDINGS:BONES: No acute osseous abnormality. Stable | | sclerotic lesion at [id number] body and probable bone island at the left femoral | | head.Right total hip arthroplasty changes.CHEST:Chest Wall: No supraclavicular or | | axillary lymphadenopathy. Rightaxillary surgical clips are noted. Diminished size of the | | complexfluid collection at the right upper outer breast currently measuringup to 2.5 | | cm.Mediastinum and sailaja: No lymphadenopathy.Heart and pericardium: Heart size is normal. | | No pericardial effusion.Minimal coronary artery calcifications are evident.Vessels: | | Normal caliber of the thoracic aorta. No large centralpulmonary artery filling defect | | identified.Lungs: Right lower lobectomy changes. Stable mild emphysematouschanges. | | Anterior minor fissure 6 mm nodule is stable in size comparedto PET/CT but demonstrates | | increased surrounding pleural parenchymalscarring and interstitial thickening. | | Associated pleural-based nodularcomponents at the inferior right upper lobe measuring up | | to 8 mm.Large airways: Similar soft tissue nodularity along the posteriorinner wall of | | the distal right bronchus intermedius resulting inmoderate narrowing. This is best | | appreciated on series 4 images 42-44.Pleura: No pleural effusion or pneumothorax. | | ABDOMEN/PELVIS:Abdominal wall: Fat-containing right paramedian supraumbilical | | ventralhernia, the neck measures 1.3 cm. Small fat-containing umbilicalhernia.Liver: | | Stable appearance of multiple subcentimeter hepatichypodensities, too small to fully | | characterize but likely representsmall cysts. No soft tissue mass | | identified.Gallbladder: No calcified gallstones. Normal caliber wall.Pancreas: No mass | | or ductal dilatation.Spleen: Unremarkable.Adrenals: Stable low-density left adrenal | | nodule.Kidneys: Stable anterior right superior pole renal cyst measuring upto 1.8 cm. | | Adjacent subcentimeter right renal hypodensity is too smallto fully characterize. | | Duplicated left collecting system.Ureters: No hydroureter. Urinary Bladder: No wall | | thickening.Reproductive organs: Hysterectomy changes.Bowel: Multiple small sigmoid colon | | diverticula without pericolonicinflammation. Appendectomy changes. No evidence of bowel | | obstruction.Peritoneum/retroperitoneum: No ascites, free air, or | | lymphadenopathy.Vessels: Normal caliber of the abdominal aorta.IMPRESSION: Similar size | | of the previous identified mildly hypermetabolic anteriorright middle lobe/minor fissure | | nodule measuring 6 mm. However, thereis increased surrounding interstitial thickening | | and pleural-basednodularity measuring up to 8 mm. This may reflect | | focalscarring/fibrosis versus metastasis. An infectious process is also aless likely | | consideration.Similar distal right bronchus intermedius nodular posterior wallthickening | | resulting in focal stenosis.Interval decreased size of the complex fluid collection at | | the rightupper outer breast, most compatible with resolving seroma/hematoma.Other | | chronic findings as above.Electronically signed by Miko Ramsey MD 05/28/2020 1:16 PM | |hernia, the neck measures 1.3 cm. Small fat-containing umbilical | |hernia. | | | |Liver: Stable appearance of multiple subcentimeter hepatic | |hypodensities, too small to fully characterize but likely represent | |small cysts. No soft tissue mass identified. | |Gallbladder: No calcified gallstones. Normal caliber wall. | |Pancreas: No mass or ductal dilatation. | |Spleen: Unremarkable. | | | |Adrenals: Stable low-density left adrenal nodule. | |Kidneys: Stable anterior right superior pole renal cyst measuring up | |to 1.8 cm. Adjacent subcentimeter right renal hypodensity is too small | |to fully characterize. Duplicated left collecting system. | |Ureters: No hydroureter. | |Urinary Bladder: No wall thickening. | |Reproductive organs: Hysterectomy changes. | | | |Bowel: Multiple small sigmoid colon diverticula without pericolonic | |inflammation. Appendectomy changes. No evidence of bowel obstruction. | |Peritoneum/retroperitoneum: No ascites, free air, or lymphadenopathy. | |Vessels: Normal caliber of the abdominal aorta. | | | | | |IMPRESSION: | | | |Similar size of the previous identified mildly hypermetabolic anterior | |right middle lobe/minor fissure nodule measuring 6 mm. However, there | |is increased surrounding interstitial thickening and pleural-based | |nodularity measuring up to 8 mm. This may reflect focal | |scarring/fibrosis versus metastasis. An infectious process is also a | |less likely consideration. | | | |Similar distal right bronchus intermedius nodular posterior wall | |thickening resulting in focal stenosis. | | | |Interval decreased size of the complex fluid collection at the right | |upper outer breast, most compatible with resolving seroma/hematoma. | | | |Other chronic findings as above. | | | |Electronically signed by Miko Ramsey MD 05/28/2020 1:16 PM | + + + +---------+ + + | Performing | Address | City/State/Zipcode | Phone Number | | Organization | | | | + +---------+ + + | [facility] | | | | + +---------+ + + documented in this encounter Visit Diagnoses + + | Diagnosis | + + | Non-small cell cancer of right lung (HCC) | + + documented in this encounter Administered Medications + +--------+ +--------+------+------+ | Medication Order | MAR | Action | Dose | Rate | Site | | | Action | Date | | | | + +--------+ +--------+------+------+ | iohexol (OMNIPAQUE 350) 350 | Given | 05/27/20 | 80 mLs | | | | mg/mL injection 80 mL 80 mL, | | 20 10:11 | | | | | Intravenous, ONCE PRN, Other, for | | AM PDT | | | | | imaging CT study, Starting Mon | | | | | | | 05/27/20 at 1011, For 1 dose, | | | | | | | Radiology | | | | | | + +--------+ +--------+------+------+ +---+---+ | | | +---+---+ documented in this encounter"
--- OUTSIDE RECORDS SUMMARY | ~2020-08-08 | XMS | Encounter Summary ---
Demographics + + + | Address | [address] | | | [place] [address] | + + + | Home Phone | | + + + | Preferred Language | Unknown | + + + | Marital Status | Single | + + + | Yazidism Affiliation | Unknown | + + + | Race | White | + + + | Ethnic Group | Not or | + + + Author + + + | Author | [facility] | | | and [place] | + + + | Organization | [facility] | | | and [...] Team Providers + +------+ + | Care Home Assessment Nurse Name | Role | Phone | + +------+ + | Zuleyka Martínez | PCP | | + +------+ + Reason for Visit +--------+--------+ + | Reason | Onset | Comments | | | Date | | +--------+--------+ + | Other | 12/09/ | | | | 2017 | | +--------+--------+ + Encounter Details +--------+ + + + + | Date | Type | Department | Care Team | Description | +--------+ + + + + | 12/09/ | Telephone | [facility] | Susie Montemayor | Other | | 2017 | | MED [facility] RADIATION | MD Jared [address] | | | | | ONCOLOGY [address] | [place], [place] | | | | | [place], | [address] | | | | | [place] [address] | | | | | | [phone] | | | +--------+ + + + [...] this encounter Miscellaneous Notes Telephone Encounter - Susie Fried MD - 12/09/2016 10:05 AM PSTNoted elephone Encounter - Sarath Zamudio - 12/09/2016 9:20 AM PSTI called Olena regarding her appointment with Dr. Joseph sood tomorrow. Olena is leaving to see Dr. Mon in [place] tomorrow. She will resched lucien when she knows about the upcoming surgery. documented in this encounter Plan of Treatment +--------+ + + + + | Date | Type | Specialty | Care Team | Description | +--------+ + + + + | 08/12/ | Appointment | Oncology | Elmer Silva | | | 2019 | | | MD Lazaro Dominique | | | | | | [facility] [place] | | | | | | [address] | | | | | | | | +--------+ + + + + | 08/12/ | Hospital | Infusion Therapy | Elmer Silva | | | 2019 | Encounter | | E, [address] | | | | | | [place] | | | | | | [address] | | | | | | | | +--------+ + + + + | 08/12/ | Appointment | Oncology | Lionel Benson | | | 2019 | | | J, Ze [address] | | | | | | [address] | | | | | | [place] [address] | | | | | | [phone] | | | | | | | | +--------+ + + + + | 08/19/ | Appointment | Oncology | Elmer Silva | | | 2019 | | | E, [address] | | | | | | [place] | | | | | | [address] | | | | | | | | +--------+ + + + + | 08/19/ | Appointment | Infusion Therapy | Elmer Silva | | | 2019 | | | MD [address]azaro Dominique [address] | | | | | | [place] | | | | | | [address] | | | | | | | [...] [place] | | | | | | [address] | | | | | | | | +--------+ + + + + | 09/09/ | Appointment | Infusion Therapy | | | | 2019 | | | | | +--------+ + + + + | 09/16/ | Office | Oncology | Elmer Silva | | | 2020 | Visit | | E, MD [address] | | | | | | [place] | | | | | | [address] | | | | | | | [...] [place] | | | | | | [address] | | | | | | | [...] [place] | | | | | | [address] | | | | | | | | +--------+ + + + + documented as of this encounter Visit Diagnoses Not on filedocumented in this encounter"
--- OUTSIDE RECORDS SUMMARY | ~2020-08-08 | XMS | Encounter Summary ---
Demographics + + + | Address | [address] | | | [place] [address] | + + + | Home Phone [...] Author + + + | Author | [facility] | | | and [place] | + + + | Organization | [facility] | | | [...] Team Providers + +------+ + | Care [employer] Name | Role | Phone | + [...] [id number] | | | | | | [place], | [place] | | | | | | [place] [address] | [address] | | | | | | Phone: | Phone: | | | | | | [phone] | [phone] | | | | | | Fax: | Fax: | | | | | | [phone] | [phone] | +--------+ + + + + + Encounter Details +--------+ + + + + | Date | Type | Department | Care Team | Description | +--------+ + + + + | 04/23/ | Hospital | [facility] | Milton Salazar | Thyroid cancer (HCC) | | 2017 | Encounter | MED CTR RADIATION | MD Bebeto [address] | (Primary Dx) | | | | ONCOLOGY [address] | [address] [place] | | | | | [place], | [place] [address] | | | | | [place] [address] | [phone] | | | | | [phone] | | | | | | | Susie Montemayor, | | | | | | [address] | | | | | | [place], [place] | | | | | | [address] | | | | | | | [...] Susie Walker MD - 04/23/2017 12:00 AM [facility] Radiation Oncology Follow-up Note PATIENT: Olena Rider MR#: [id number] :1960 DOS:04/23/2017 ICD/Diagnosis: C73 - Malignant neoplasm [...] A. She was then referred to Dr. oMn and underwent Right lower lobectomy and fredo [...] Follow-up with Dr. Zuleyka Cota MD in [place] to establish care. If not able to [...] M.D. Radiation Oncologist Department of Radiation Oncology [facility] Electronically signed by Susie Walker M.D CC: Doris Stanford M.D. [facility] [address] MD in [place] This note was transcribed using [employer] speech recognition software. As a result, there ma y be unintended for medical and/or spelling errors. Every attempt is made to correct dicta tion. If there are any questions or errors please contact our office. CSN: [id number] signed by Susie Walker MD at 05/06/2017 [...] [place] | | | | | | [address] | | | | | | | | +--------+ + + + + | 08/12/ | Hospital | Infusion Therapy | Elmer Silva | | | 2019 | Encounter | | MD [address]az[address] Dominique | | | | | | [place] | | | | | | [address] | | | | | | | | +--------+ + + + + | 08/12/ | Appointment | Oncology | Lionel Benson | | 2019 | | | J, PharmD [address] | | | | | | [address] [place] | | | | | | [place] [address] | | | | | | [phone] | | | | | | | | +--------+ + + + + | 08/19/ | Appointment | Oncology | Elmer Silva | | | 2019 | | | E, [address] | | | | | | [place], [place] | | | | | | [address] | | | | | | | | +--------+ + + + + | 08/19/ | Appointment | Infusion Therapy | Elmer Silva | | | 2019 | | | E, [address] | | | | | | [place], [place] | | | | | | [address] | | | | | | | [...] [place] | | | | | | [address] | | | | | | | [...] [place] | | | | | | [address] | | | | | | | [...] [place] | | | | | | [address] | | | | | | | [...] [place] | | | | | | [address] | | | | | | | [...] to Endocrinology | Referral | e | ([facility]) | | + + +--------+ + + [...] REFERENCE | | | in | [place] | ng/mL | LAB [facility] | | [...] [place] | | | | | | [address] | | | | + + + + + + + + | Specimen | + + | Blood | + + + + + + + | Performing | Address | City/State/Zipcode | Phone Number | | Organization | | | | + + + + + | [facility] | [address] | [place] [address] | [phone] | + + + + + TSH [...] + + | [facility] | [address] | [place] | [phone] | | [facility] | | [address] | | | - LABORATORY | | | | + + + + + documented in this encounter Visit Diagnoses + + | Diagnosis | + + | Thyroid cancer (HCC) - Primary Malignant neoplasm of thyroid gland | + + documented in this encounter
--- OUTSIDE RECORDS SUMMARY | ~2020-08-08 | XMS | Encounter Summary ---
Demographics + + + | Address | [address] | | | [place] [address] | + + + | Home Phone | | + + + | Preferred Language | Unknown | + + + | Marital Status | Single | + + + | Christianity Affiliation | Unknown | + + + | Race | White | + + + | Ethnic Group | Not or | + + + Author + + + | Author | [facility] | | | and [place] | + + + | Organization | [facility] | | | and [...] Team Providers + +------+ + | Care Timekeeper Supervisor Name | Role | Phone | + +------+ + | Zuleyka Martínez | PCP | | + +------+ + Reason for Visit +---------+--------+ + | Reason | Onset | Comments | | | Date | | +---------+--------+ + | Testing | 08/09/ | [facility] | | | 2019 | | +---------+--------+ + Encounter Details +--------+ + + + + | Date | Type | Department | Care Team | Description | +--------+ + + + + | 08/09/ | Telephone | [facility] | Ashley Doty RN | Testing ([facility] | | 2019 | | [facility] CTR [facility] | | Health ) | | | | ONCOLOGY CLINIC [address] | | | | | | [address] | | | | | | [place] [address] | | | | | | [phone] | | | +--------+ + + + [...] this encounter Miscellaneous Notes Telephone Encounter - Ashley Doty RN - 08/21/2019 11:17 AM PDTReceived test results fro [facility]. I gave Dr. Salazar a copy of the results. She is schedule to come in on 08/29/19. I will be taking a copy to HIM to be scanned into [employer] at this time.Electronicall y signed by Ashley Doty RN at 08/21/2019 11:20 AM PDTTelephone Encounter - Ashley Doty RN - 08/18/2019 11:43 AM PDTReceived a fax from [facility] stating they need additiona l information. I have fax additional information requested. Fax confirmation received on @ [phone]. elephone Encounter - Ashley Doty RN - 08/09/2019 9:59 AM PDTDr. Salazar is requesting additi onal testing through [facility] on the right breast biopsy obtain on 07/06/19. I have barnes bmitted the requisition form online. Pathology report ([id number]), and a copy of his insur ance card. Confirmation received on 08/09/19 @ 1000. documented in this encounter Plan of Treatment [...] [place] | | | | | | [address] | | | | | | | | +--------+ + + + + | 08/12/ | Hospital | Infusion Therapy | Elmer Silva | | | 2019 | Encounter | | E, [address] | | | | | | [address] [place], [place] | | | | | | [address] | | | | | | | | +--------+ + + + + | 08/12/ | Appointment | Oncology | Lionel Benson | | | 2019 | | | Ze Un[address] | | | | | | [address] [place] | | | | | | [place] [address] | | | | | | [phone] | | | | | | | | +--------+ + + + + | 08/19/ | Appointment | Oncology | Elmer Silva | | | 2019 | | | E, [address] | | | | | | [address] [place], [place] | | | | | | [address] | | | | | | | | +--------+ + + + + | 08/19/ | Appointment | Infusion Therapy | Elmer Silva | | | 2019 | | | E, [address] | | | | | | [address] [place], [place] | | | | | | [address] | | | | | | | [...] Visit | | MD Lazaro Domin[address] | | | | | | [place] | | | | | | [address] | | | | | | | [...] [place] | | | | | | [address] | | | | | | | [...] [place] | | | | | | [address] | | | | | | | [...] [place] | | | | | | [address] | | | | | | | | +--------+ + + + + documented as of this encounter Visit Diagnoses Not on filedocumented in this encounter"
--- OUTSIDE RECORDS SUMMARY | ~2020-08-08 | XMS | Encounter Summary ---
Demographics + + + | Address | [address] | | | [place] [address] | + + + | Home Phone | | + + + | Preferred Language | Unknown | + + + | Marital Status | Single | + + + | Advent Affiliation | Unknown | + + + [...] Team Providers + +------+ + | Care Naval Designer Name | Role | Phone | + +------+ + | Zuleyka Martínez | PCP | | + +------+ + Encounter Details +--------+ + + + + | Date | Type | Department | Care Team | Description | +--------+ + + + + | 09/28/ | Orders Only | [facility] | Natividad Mendoza, | Malignant neoplasm | | 2015 | | [facility] CHE[facility] | RN | of thyroid gland | | | | INFUSION [address] | | (HCC) (Primary Dx) | | | | [place], | | | | | | [place] [address] | | | | | | [phone] | | | +--------+ + + + [...] | | | | | [place] | | | | | | [address] | | | | | | | | +--------+ + + + + | 08/12/ | Hospital | Infusion Therapy | Elmer Silva | | | 2019 | Encounter | | E, [address] | | | | | | [address] [place], [place] | | | | | | [address] | | | | | | | | +--------+ + + + + | 08/12/ | Appointment | Oncology | Lionel Benson | | | 2019 | | | Ze Unger [address] | | | | | | [address] [place] | | | | | | [place] [address] | | | | | | [phone] | | | | | | | | +--------+ + + + + | 08/19/ | Appointment | Oncology | Elmer Silva | | | 2019 | | | E, [address] | | | | | | [place] | | | | | | [address] | | | | | | | | +--------+ + + + + | 08/19/ | Appointment | Infusion Therapy | Elmer iSlva | | | 2019 | | | E, [address] | | | | | | [place] | | | | | | [address] | | | | | | | [...] [place] | | | | | | [address] | | | | | | | [...] [place] | | | | | | [address] | | | | | | | [...] [place] | | | | | | [address] | | | | | | | [...] | | | | | | [place] | | | | | | [address] | | | | | | | | +--------+ + + + + documented as of this encounter Visit Diagnoses + + | Diagnosis | + + | Malignant neoplasm of thyroid gland (HCC) - Primary Malignant neoplasm of thyroid | | gland | + + documented in this encounter"
--- OUTSIDE RECORDS SUMMARY | ~2020-08-08 | XMS | Encounter Summary ---
Demographics + + + | Address | [address] | | | [place] [address] | + + + | Home Phone | | + + + | Preferred Language | Unknown | + + + | Marital Status | Single | + + + | Jewish Affiliation | Unknown | + + + | Race | White | + + + | Ethnic Group | Not or | + + + Author + + + | Author | [facility] | | | and [place] | + + + | Organization | [facility] | | | and [...] Team Providers + +------+ + | Care Vacuum Technician Name | Role | Phone | + +------+ + | Zuleyka Martínez | PCP | | + +------+ + Reason for Visit + +--------+ + | Reason | Onset | Comments | | | Date | | + +--------+ + | Patient Concerns | 07/22/ | | | | 2020 | | + +--------+ + Encounter Details +--------+ + + + + | Date | Type | Department | Care Team | Description | +--------+ + + + + | 07/22/ | Telephone | [facility] | Susie Montemayor | Patient Concerns | | 2020 | | MED CTR MEDICAL | MD Jared [address] | | | | | ONCOLOGY CLINIC [address] | [place], [place] | | | | | [address] [facility] | [address] | | | | | [place] [address] | | | | | | [phone] | | | +--------+ + + + [...] this encounter Miscellaneous Notes Telephone Encounter - Abby Rodriguez RN - 07/22/2020 2:46 PM PDTNoted, patient spoke with Azucena KHAN see alternate encounter today. Closing encounter elephone Encounter - Dima Lehman - 020 2:20 PM PDTBe advised that Olena stated at check in she had some questions for the d . I advised Doctor out of office today. She did not specify what questions she had. documented in this encou nter Plan of Treatment +--------+ + + + + | Date | Type | Specialty | Care Team | Description | +--------+ + + + + | 08/12/ | Appointment | Oncology | Elmer Silva | | 2019 | | | MD [address]az[address] | | | | | | [place] | | | | | | [address] | | | | | | | | +--------+ + + + + | 08/12/ | Hospital | Infusion Therapy | Elmer Silva | | | 2019 | Encounter | | MD Trip [address] | | | | | | [place] | | | | | | [address] | | | | | | | | +--------+ + + + + | 08/12/ | Appointment | Oncology | Lionel Benson | | | 2019 | | | J, Ze [address] | | | | | | [address] | | | | | | [place] [address] | | | | | | [phone] | | | | | | | | +--------+ + + + + | 08/19/ | Appointment | Oncology | Elmer Silva | | | 2019 | | | E, [address] | | | | | | [address] [place] | | | | | | [address] | | | | | | | | +--------+ + + + + | 08/19/ | Appointment | Infusion Therapy | Elmer Silva | | | 2019 | | | MD [address]azaro [address] | | | | | | [place] | | | | | | [address] | | | | | | | [...] | 2019 | Visit | | E, [address] | | | | | | [place] | | | | | | [address] | | | | | | | | +--------+ + + + + | 09/09/ | Appointment | Infusion Therapy | | | | 2019 | | | | | +--------+ + + + + | 09/16/ | Office | Oncology | Elmer Silva | | | 2019 | Visit | | E, [address] | | | | | | [place] | | | | | | [address] | | | | | | | [...] [place] | | | | | | [address] | | | | | | | [...] [place] | | | | | | [address] | | | | | | | | +--------+ + + + + documented as of this encounter Visit Diagnoses Not on filedocumented in this encounter"
--- OUTSIDE RECORDS SUMMARY | ~2020-08-08 | XMS | Encounter Summary ---
Demographics + + + | Address | [address] | | | [place] [address] | + + + | Home Phone | | + + + | Preferred Language | Unknown | + + + | Marital Status | Single | + + + | Caodaism Affiliation | Unknown | + + + [...] Team Providers + +------+ + | Care Behavioral Geneticist Name | Role | Phone | + [...] | +--------+ + + + + | 09/21/ | [facility] | [facility] | Susie Montemayor | Primary malignant | | 2019 | Encounter | MED CTR RADIATION | MD Jared [address] | neoplasm of female | | | | ONCOLOGY CLINIC [address] | [place], [place] | breast (HCC) | | | | [address] [facility] | [address] | (Primary Dx) | | | | [place] [address] | | | | | | [phone] | | | +--------+ + + + [...] + + + | Blood Pressure | 109/71 | 09/21/2019 3:59 PM | | | | | PST | | + + + + + | Pulse | 69 | 09/21/2019 3:59 PM | | | | | PST | | + + + + + | Temperature | 37 C (98.6 F) | 09/21/2019 3:59 PM | | | | | PST | | + + + + + | Respiratory Rate | 14 | 09/21/2019 3:59 PM | | | | | PST | | + + + + + | Oxygen Saturation | 98% | 09/21/2019 3:59 PM | | | | | PST | | + + + + + | Inhaled Oxygen | - | - | | | Concentration | | | | + + + + + | Weight | 87.2 kg (192 lb 3.9 | 09/21/2019 3:59 PM | | | | oz) | PST | | + + + + + | Height | - | - | | + + + + + | Body Mass Index | 29.14 | 08/08/2019 3:00 PM | | | [...] + + + +---------+ + + | metoprolol | Take 1 tablet by | 60 | 0 | 09/18/20 | | | tartrate (LOPRESSOR) | mouth 2 times daily | tablet | | 19 | 9 | | 50 mg tablet | for 30 days. | | | | | + + + +---------+ + + documented as of this encounter Progress Notes Susie Montemayor MD - 09/21/2019 3:45 PM PST Radiation Oncology Weekly On Treatment Note Diagnosis: ICD-10-CM ICD-9-CM 1. Primary malignant neoplasm of female breast (HCC) C50.919 174.9 Reason for visit: On treatment evaluation Radiation technical factors: Dose Delivered Dose Planned Fractions Delivered 3471 cGy Boost 0 cGy 4005 cGy 1000 cGy 0 Images were reviewed this week and results [...] tablet Take 1 tablet by mouth Daily. (Patient not taking: R eported on 09/21/2019) 30 tablet 11 ibuprofen (ADVIL,MOTRIN) 600 MG tablet Take 600 mg by mouth every 6 hours as needed. levothyroxine (SYNTHROID) 112 mcg tablet TAKE ONE TABLET BY MOUTH EVERY OTHER DAY levothyroxine (SYNTHROID) 125 mcg tablet Take 125 mcg by mouth every morning (before br eakfast). lidocaine (LIDODERM) 5% patch Place 1 patch onto the skin. metoprolol tartrate (LOPRESSOR) 50 mg tablet Take 1 tablet by mouth 2 times daily for 3 0 days. 60 tablet 0 Multiple Vitamins-Minerals (MULTIVITAMIN ADULT PO) Take by [...] joint Pain Level: PAIN PROG PAIN LEVEL: 4 Pain Quality: Aching Current pain regimen: Ultram, celebrex, tylenol and rest Wt Readings from Last 3 Encounters: 09/21/19 87.2 kg (192 lb 3.9 oz) 09/14/19 86.9 kg (191 lb 9.3 oz) 09/07/19 87.4 kg (192 lb 10.9 oz) Vitals: 09/21/19 1559 BP: 109/71 Pulse: 69 Resp: 14 Temp: 37 C (98.6 F) SpO2: 98% Weight: 87.2 kg (192 lb 3.9 oz) Physical Exam Constitutional: She appears well-developed and well-nourished. Neurological: She is alert. Skin: No rash noted. There is erythema (mild). Psychiatric: She has a normal mood and affect. Nurse Assessment and Toxicity Grading: Toxicity Flowsheet 09/21/2019 Diarrhea 0 - Grade 0 Nausea 1 - Grade 1 Vomiting 0 - Grade 0 Fatigue 2 - Grade 2 Palmar-Plantar Erythrodysesthesia Syndrome 1 - Grade 1 Rash Acneiform 0 - Grade 0 Rash Maculo-Papular 0 - Grade 0 Karnofsky Performance Score 80% Physician Assessment: 09/21/19: Olena is in her 3rd week of radiation. She has moderate fatigue. B/P is nasir r this week, her pcp continued metoprolol and Olena has d/c'd exemestane. Developing rad iation dermatitis, mild at this point. Disposition: Continue radiation treatment as planned. Skin care with emollient lotion. Susie Montemayor MD Radiation Oncologist documented in this encounter Plan of Treatment +--------+ + + + + | Date | Type | Specialty | Care Team | Description | +--------+ + + + + | 08/12/ | Appointment | Oncology | Elmer Silva | | 2019 | | | E, [address] | | | | | | [address] [place] | | | | | | [address] | | | | | | | | +--------+ + + + + | 08/12/ | Hospital | Infusion Therapy | Elmer Silva | | | 2019 | Encounter | | E, [address] | | | | | | [address] [place] | | | | | | [address] | | | | | | | | +--------+ + + + + | 08/12/ | Appointment | Oncology | Lionel Benson | | | 2019 | | | J, PharmD [address] | | | | | | [address] [facility] | | | | | | [place] [address] | | | | | | [phone] | | | | | | | | +--------+ + + + + | 08/19/ | Appointment | Oncology | Elmer Silva | | | 2019 | | | E, [address] | | | | | | ST [place], [place] | | | | | | [address] | | | | | | | | +--------+ + + + + | 08/19/ | Appointment | Infusion Therapy | Elmer Silva | | | 2019 | | | E, MD [address] | | | | | | ST [place], [place] | | | | | | [address] | | | | | | | [...] [place] | | | | | | [address] | | | | | | | [...] [place] | | | | | | [address] | | | | | | | [...] [place] | | | | | | [address] | | | | | | | | +--------+ + + + + | 09/23/ | Appointment | Infusion Therapy | | | | 2019 | | | | | +--------+ + + + + | 11/22/ | Appointment | Radiation Oncology | Susie Montemayor | | | 2020 | | | MD Jared [address] | | | | | | [place] | | | | | | [address] | | | | | | | | +--------+ + + + + documented as of this encounter Visit Diagnoses + + | Diagnosis | + + | 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
--- OUTSIDE RECORDS SUMMARY | ~2020-08-08 | XMS | Encounter Summary ---
Demographics + + + | Address | [address] | | | [place] [address] | + + + | Home Phone | | + + + | Preferred Language | Unknown | + + + | Marital Status | Single | + + + | Church Affiliation | Unknown | + + + | Race | White | + + + | Ethnic Group | Not or | + + + Author + + + | Author | [facility] | | | and [place] | + + + | Organization | [facility] | | [...] Team Providers + +------+ + | Care Rail Bonder Name | Role | Phone | + [...] | | | [address] [place] | [place] [address] | | | | | [place] [address] | | | | | | [phone] | | | +--------+ + + + [...] [place] | | | | | | [address] | | | | | | | | +--------+ + + + + | 08/12/ | Hospital | Infusion Therapy | Elmer Silva | | | 2019 | Encounter | | MD Lazaro Dominique [address] | | | | | | [place] | | | | | | [address] | | | | | | | | +--------+ + + + + | 08/12/ | Appointment | Oncology | Lionel Benson | | 2019 | | | Ze Un[address] | | | | | | [address] | | | | | | [place] [address] | | | | | | [phone] | | | | | | | | +--------+ + + + + | 08/19/ | Appointment | Oncology | Elmer Silva | | | 2019 | | | E, MD [address] | | | | | | [place] | | | | | | [address] | | | | | | | | +--------+ + + + + | 08/19/ | Appointment | Infusion Therapy | Elmer Silva | | | 2019 | | | E, MD [address] | | | | | | [place] | | | | | | [address] | | | | | | | [...] [place] | | | | | | [address] | | | | | | | [...] [place] | | | | | | [address] | | | | | | | [...] [place] | | | | | | [address] | | | | | | | | +--------+ + + + + | 09/23/ | Appointment | Infusion Therapy | | | | 2019 | | | | | +--------+ + + + + | 11/22/ | Appointment | Radiation Oncology | Susie Montemayor | | | 2020 | | | MD Lazaro [address] | | | | | | [facility] [place] | | | | | | [id number] | | | | | | | | +--------+ + + + + documented as of this encounter Procedures + +--------+ + + + | Procedure Name | Priori | Date/Time | Associated Diagnosis | Comments | | | ty | | | | + +--------+ + + + | US GUIDED BREAST | Routin | 07/06/2019 | | Results for this | | BIOPSY RIGHT | e | 12:05 AM | | procedure are in the | | | | PDT | | results section. | + +--------+ + + + documented in this encounter Results US Guided Breast Biopsy Right (07/06/2019 12:05 AM PDT) + + | Specimen | [...]
--- OUTSIDE RECORDS SUMMARY | ~2020-08-08 | XMS | Encounter Summary ---
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 | Role | Phone | + [...] | +--------+ + + + + | 08/31/ | [facility] | [facility] | Milton Salazar | Non-small cell | | 2017 | Encounter | [facility] | MD [address] | cancer of right lung | | | | [facility]OGY CLINIC [address] [place] | (HCC) (Primary Dx); | | | | [address] [facility] | [place] [address] | Malignant neoplasm | | | | [place] [address] | [phone] | of thyroid gland | | | | [phone] | | (HCC) | +--------+ + + + + Social [...] + + + | Blood Pressure | 130/86 | 08/31/2017 1:09 PM | | | | | PDT | | + + + + + | Pulse | 97 | 08/31/2017 1:09 PM | | | | | PDT | | + + + + + | Temperature | 36.5 C (97.7 F) | 08/31/2017 1:09 PM | | | | | PDT | | + + + + + | Respiratory Rate | 18 | 08/31/2017 1:09 PM | | | | | PDT | | + + + + + | Oxygen Saturation | 99% | 08/31/2017 1:09 PM | | | | | PDT | | + + + + + | Inhaled Oxygen | - | - | | | Concentration | | | | + + + + + | Weight | 85.3 kg (188 lb 0.8 | 08/31/2017 1:09 PM | | | | oz) | PDT | | + + + + + | Height | - | - | | + + + + + | Body Mass Index | 28.59 | 11/04/2016 9:00 AM | | | [...] + + + +---------+ + + | CHANTIX 0.5 MG | TAKE 1 TABLET BY | 60 | 0 | 08/06/20 | | | tabletIndications: | MOUTH TWICE DAILY TO | tablet | | 17 | 8 | | Non-small cell | HELP STOP SMOKING | | | | | | cancer [...] encounter Progress Notes Milton Salazar MD - 08/31/2017 1:26 PM PDTFormatting of this note might be diff erent from the original. Hem-Onc Progress Note [facility] Pt. Name/Age/: Olena Rider 56 y.o. 1960 Med. Record Number: [id number] Date of admission: 08/31/2017 Assessment and plan: 1. Non-small cell lung [...] A counseling session today first to review results of surveillance CT scan from earlier in the week before with images that I was able to personally view disclosing small subcentimete r pulmonary nodular densities in the left midlung field measuring under 3 mm in dimension an d probably associated with benign inflammation. Patient however does have underlying emphys preston and thus would be a continuing risk for new development of lung cancer. We again discus sed some of the approaches to quitting smoking and the availability of such resources throug h the cancer Center. Discussion concerning patience findings on physical exam with attention to the ENT exam not ing normal-appearing tympanic membranes and external auditory canals. We discussed the like lihood of low-grade inflammation in the nasopharynx probably at least in part referable to o ngoing smoking. We also took note of patient's leukocytosis, another indicator of ongoing c hronic inflammation. Discussion with regard to upcoming diagnostic mammogram and very pleased the patient also c ontinuing this important screening evaluation. Our follow-up is going to continue on a quar terly basis all the patient will not need CT restaging until early next year. Subjective: The patient chart and medications were reviewed in detail and the patient was seen and exam ined. Olena Rider is a 56 y.o. female returns today for follow-up and surveillance followi ng earlier treatment for non-small cell lung cancer. Interim history noting patient largely recovered from earlier programs of surgery and then radiation postoperatively as adjunctive treatment for stage IIIa non-small cell lung cancer. Treatment was well-tolerated although patient experiencing posttreatment fatigue but event ually allowing return to now full-time work. Patient admits that she is continuing smoking on a periodic basis. This may have something to do with patient's continued symptoms referable to the aerodigest rajan tract today including a sense of fullness and discomfort in the region of the ears bilat erally. She is not having fever or drainage. Nor has patient had a productive cough. Additional history noting a recent call back for diagnostic mammogram following earlier scr eening examination performed earlier this . This is going to be at [facility]. PSH: Reviewed, no changes to admission H&P. Past Medical History: Diagnosis Date Anxiety Insomnia Malignant neoplasm of thyroid gland (HCC) PONV (postoperative nausea and vomiting) Review of Systems: Constitutional: Reports energy level is improving. Reports mild nausea most mornings. Den ies high fevers, shaking chills, anorexia, vomiting, weight loss, or night sweats. Appetit e without changes. Ear, Nose, Mouth, Throat: Reports bilateral ear pain the last 3-4 days, right worse than le ft. Denies odynophagia, dysphagia, or tinnitus. Cardiovascular: Reports dyspnea with exertion. Denies shortness of breath, chest pain, palp itations or orthopnea. Respiratory: Reports occasional cough. Denies hemoptysis, or sputum production. Gastrointestinal: Denies abdominal pain, constipation, diarrhea, melena, or bright red bloo d per rectum. Genitourinary: Denies hematuria or dysuria. Musculoskeletal: Arthritic pain continues. Neurologic: Reports blurry vision continues, plans to see eye doctor. Reports numbness and tingling in feet, worse at night and states some days are worse than others. Denies headach e. Endocrine: Denies peripheral edema or heat/cold intolerance. Hematologic: Denies spontaneous bruising or bleeding. Integumentary: Denies rash, wounds or other skin concerns. Pain: 3/10 pain generalized joint pain, mostly the knees. Review of systems as above otherwise negative [...] tablet Take 2 tablets by mouth Daily. CHANTIX 0.5 MG tablet TAKE 1 TABLET BY MOUTH TWICE DAILY TO HELP STOP SMOKING 60 tablet 0 levothyroxine (SYNTHROID, LEVOTHROID) 150 mcg tablet Take 150 mcg by mouth every mornin g (before breakfast). ondansetron (ZOFRAN ODT) 4 mg disintegrating tablet Take 4 mg by mouth every 8 hours as needed for Nausea. traMADol (ULTRAM) 50 mg tablet Take 50 mg by mouth every 6 hours as needed for Pain. zolpidem (AMBIEN) 10 mg tablet Take 10 mg by mouth nightly as needed for Sleep. No current facility-administered medications on file prior to encounter. Objectives: Temp: 36.5 C (97.7 F) BP: 130/86 Pulse: 97 Resp: 18 SpO2: 99 % on Min/Max Temp past 24 hours:Temp Av.5 C (97.7 F) Min: 36.5 C (97.7 F) Max: 3 6.5 C (97.7 F) No intake or output data in the 24 hours ending 10/31/17 1326 Wt. Admission: Weight: 85.3 kg (188 lb 0.8 oz) Wt. Current: Weight: 85.3 kg (188 lb 0.8 oz) Physical Exam: Exam: General: The patient is alert and oriented. No acute distress. HEENT: PERRL, Oral mucosa intact. Neck is supple. No abnormalities with inspection of the right and left tympanic membranes Cardiovascular: Regular rate and rhythm, no murmur. Respiratory: Clear to auscultation and percussion. Breast: Not examined Abdomen: Soft, nontender, no hepatospenomegaly. No palpable masses. Bowel sounds present. Genitourinary: Deferred. Extremities: Nontender, no erythema, no edema. Skin: [...] the Assessment and Plan. Recent Labs Lab 08/31/17 1242 WBC 11.1* HGB 13.0 HCT 38.6 PLT 268 EXAM: CT CHEST WITH CONTRAST:08/17/2017 11:04 AM HISTORY: restaging lung cancer COMPARISON: CT chest dated April 16, 2017 and September 23, 2016 outside abdomen dated January 02, 2016. TECHNIQUE: Axial images are obtained from thoracic inlet to upper abdomen during the uneventful administration of 75 mL of Omnipaque 350. DOSE: DLP 272.68 mGy-cm FINDINGS: Lungs: Centrilobular emphysema is mild. Stable 3 mm noncalcified nodule in the lingula (series 4, image 88). There is a new 3 mm noncalcified nodule in the left upper lobe along the major fissure (series 4, image 54). Postsurgical changes in the right lower lobe. Decreased size of a loculated fluid collection in the medial right lower lobe. Heart and mediastinum: Slight rightward shifting of the mediastinal structures. No mediastinal or hilar lymphadenopathy. Chest wall: No axillary or visible supraclavicular lymphadenopathy. Upper abdomen: Stable multiple subcentimeter hypodensities in the right and left lobes. These are likely small cysts. No visible suspicious liver lesions. Stable low-density left adrenal nodule. Bones: There are no suspicious lytic or blastic bone lesions. There is a stable vague area of sclerosis in L1. IMPRESSION - Postsurgical changes in the right hemithorax. No evidence for disease progression or metastatic spread. Recommendation: Continue appropriate restaging follow-up and/or lung cancer screening. Dictated and Signed by: Milton Dewitt MD Electronically signed: 08/17/2017 12:54 PM Electronically signed by: Milton Salazar, 08/31/2017 13:26 [facility] TIME SPENT 25 MIN. > 50% AT BEDSIDE, WITH FAMILY/PATIENT IN CARE AND QUALITY COORDINATOR ON UNIT AND CO ORDINATION OF CARE Portions of this chart may have been created with [employer] voice recognition software. Occasi onal wrong-word or sound-alike substitutions may have occurred due to the inherent cervantes itations of voice recognition software. Please read the chart carefully and recognize, using context, where these substitutions have occurred. Zuleyka Garcia RN - 08/31/2017 12:58 PM ILA Morales OF SYSTEMS Constitutional: Reports energy level is improving. Reports mild nausea most mornings. Den ies high fevers, shaking chills, anorexia, vomiting, weight loss, or night sweats. Appetit e without changes. Ear, Nose, Mouth, Throat: Reports bilateral ear pain the last 3-4 days, right worse than le ft. Denies odynophagia, dysphagia, or tinnitus. Cardiovascular: Reports dyspnea with exertion. Denies shortness of breath, chest pain, palp itations or orthopnea. Respiratory: Reports occasional cough. Denies hemoptysis, or sputum production. Gastrointestinal: Denies abdominal pain, constipation, diarrhea, melena, or bright red bloo d per rectum. Genitourinary: Denies hematuria or dysuria. Musculoskeletal: Arthritic pain continues. Neurologic: Reports blurry vision continues, plans to see eye doctor. Reports numbness and tingling in feet, worse at night and states some days are worse than others. Denies headach e. Endocrine: Denies peripheral edema or heat/cold intolerance. Hematologic: Denies spontaneous bruising or bleeding. Integumentary: Denies rash, wounds or other skin concerns. Pain: 01/08 pain generalized joint pain, mostly the knees. Note: Here for 3 month follow up and labs. My chart: Declined documented in this encounter Miscellaneous Notes Addendum Note - Zuleyka Herbert RN - 08/31/2017 3:59 PM PDTEncounter addended by: Seymour Herbert RN on: 08/31/2017 15:59
Actions taken: Charge Capture section acce pted documented in this encounter Plan of Treatment +--------+ + + + + | Date | Type | Specialty | Care Team | Description | +--------+ + + + + | 08/12/ | Appointment | Oncology | Elmer Silva | | | 2019 | | | MD [address] | | | | | | [place], [place] | | | | | | [address] | | | | | | | | +--------+ + + + + | 08/12/ | Hospital | Infusion Therapy | Elmer Silva | | | 2019 | Encounter | | E, [address] | | | | | [address] [place], [place] | | | | | | [address] | | | | | | | | +--------+ + + + + | 08/12/ | Appointment | Oncology | Lionel Benson | | | 2019 | | | [address] | | | | | | [address] [place] | | | | | | [place] [address] | | | | | | [phone] | | | | | | | | +--------+ + + + + | 08/19/ | Appointment | Oncology | Elmer Silva | | | 2019 | | | E, [address] | | | | | [address] [place], [place] | | | | | | [address] | | | | | | | | +--------+ + + + + | 08/19/ | Appointment | Infusion Therapy | Elmer Silva | | | 2019 | | | MD [address] | | | | | | [place] | | | | | | [address] | | | | | | | [...] | Visit | | E, MD [address] | | | | | | [place] | | | | | | [address] | | | | | | | | +--------+ + + + + | 09/09/ | Appointment | Infusion Therapy | | | | 2019 | | | | | +--------+ + + + + | 09/16/ | Office | Oncology | Elmer Silva | | | 2019 | Visit | | Trip, MD [address] | | | | | | [place] | | | | | | [address] | | | | | | | [...] [place] | | | | | | [address] | | | | | | | [...] [place] | | | | | | [id number] | | | | | | | | +--------+ + + + + documented as of this encounter Procedures + +--------+ + + + | Procedure Name | Priori | Date/Time | Associated Diagnosis | Comments | | | ty | | | | + +--------+ + + + | CBC WITH | STAT | 08/31/2017 | Non-small cell | Results for this | | DIFFERENTIAL | | 12:42 PM | cancer of right lung | procedure are in the | | | | PDT | (HCC) Malignant | results section. | | | | | neoplasm of thyroid | | | | | | gland (HCC) | | + +--------+ + + + | MAGNESIUM | STAT | 08/31/2017 | Non-small cell | Results for this | | | | 12:42 PM | cancer of right lung | procedure are in the | | | | PDT | (HCC) Malignant | results section. | | | | | neoplasm of thyroid | | | | | | gland (HCC) | | + +--------+ + + + | COMPREHENSIVE | STAT | 08/31/2017 | Non-small cell | Results for this | | METABOLIC PANEL | | 12:42 PM | cancer of right lung | procedure are in the | | | | PDT | (HCC) Malignant | results section. | | | | | neoplasm of thyroid | | | | | | gland (HCC) | | + +--------+ + + + documented in this encounter Results Magnesium (08/31/2017 12:42 PM PDT) + +-------+ + + + | Component | Value | Ref Range | Performed | Pathologist | | | | | At | Signature | + +-------+ + + + | Magnesium | 1.9 | 1.8 - 2.5 mg/dL | [facility] | | | | | | [facility] [...] | + + + + + | [facility] | [address] | [place] | [phone] | | [facility] | | [id number] | | | - LABORATORY | | | | + + + + + Comprehensive Metabolic Panel (08/31/2017 12:42 PM PDT) + + + + + + | Component | Value | Ref Range | Performed | Pathologist | | | | | At | Signature | + + + + + + | Na | 140 | 136 - 149 | [facility] | | | | | mmol/L | [facility] | | | | | | [facility]ICAL | | | | | | CENTER - | | | | | | LABORATORY | | + + + + + + | K | 4.0 | 3.5 - 5.1 | [facility] | | | | | mmol/L | [facility] | | | | | | MEDICAL | | | | | | CENTER - | | | | | | LABORATORY | | + + + + + + | Cl | 108 | 98 - 109 mmol/L | [facility] [...] + + + + | Glucose | 147 (H) | 70 - 109 mg/dL | [facility] | | | | | | [facility] | | | | | | MEDICAL | | | | | | CENTER - | | | | | | LABORATORY | | + + + + + + | BUN | 12 | 7 - 18 mg/dL | [facility] | | | | | | [facility] | | | | | | [facility] | | | | | | CENTER - | | | | | | LABORATORY | | + + + + + + | Creatinine | 1.02 | 0.60 - 1.30 | [facility] | | | | | mg/dL | [facility] | | | | | | [facility] | | | | | | CENTER - | | | | | | LABORATORY | | + + + + + + | eGFR, | 56 (L)Comment: | >=60 | [facility] | | | non- | GLOMERULAR FILTRATION | mL/min/1.73m2 | [facility] | | | Maltese | RATE,ESTIMATED | | MEDICAL | | | | mL/min/1.82d1Dztq than | | CENTER - | | [...] + + + + | Calcium | 9.5 | 8.3 - 10.5 | [facility] | | | | | mg/dL | [facility] | | | | | | MEDICAL | | | | | | CENTER - | | | | | | LABORATORY | | + + + + + + | Albumin | 4.0 | 3.2 - 5.0 g/dL | [facility] | | | | | | [facility] | | | | | | MEDICAL | | | | | | CENTER - | | | | | | LABORATORY | | + + + + + + | Bilirubin | 0.5Comment: This is an | 0.1 - 1.5 mg/dL | [facility] | | | Total | appended report. These | | [facility] | | | | results have been | | MEDICAL | | | | appended to a previously | | CENTER - | | | | preliminary verified | | LABORATORY | | | | report. | | | | + + + + + + | Total | 6.7 | 6.0 - 7.8 g/dL | [facility] | | | Protein | | | [facility] | | | | | | MEDICAL | | | | | | CENTER - | | | | | | LABORATORY | | + + + + + + | AST | 18Comment: This is an | 10 - 42 [...] + + + + | ALT | 15Comment: This is an | 6 - 45 U/L | [facility] | | | | appended report. These | | [facility] | | | | results have been | | MEDICAL | | | | appended to a previously | | CENTER - | | | | preliminary verified | | LABORATORY | | | | report. | | | | + + + + + + | Alkaline | 71Comment: This is an | 40 - 110 U/L | [facility] | | | Phosphatase | appended report. These | | [facility] | | | | results have been | | MEDICAL | | | | appended to a previously | | CENTER - | | | | preliminary verified | | LABORATORY | | | | report. | | | | + + + + + + | Globulin | 2.7 | 2.1 - 3.8 g/dL | [facility] | | | | | | [facility] | | | | | | MEDICAL | | | | | | CENTER - | | | | | | LABORATORY | | + + + + + + | Albumin/Yuli | 1.5 | 0.8 - 2.0 | [facility] | | | bulin Ratio | | | [facility] | | | | | | MEDICAL | | | | | | CENTER - | | | | | | LABORATORY | | + + + + + + | BUN/Creatin | 11.8 | | [facility] | | | ine [...] [address] | [place] | [phone] | | [facility] | | [id number] | | | - LABORATORY | | | | + + + + + CBC with Differential (08/31/2017 12:42 PM PDT) + + + + + + | Component | Value | Ref Range | Performed | Pathologist | | | | | At | Signature | + + + + + + | White Blood | 11.1 (H) | 4.0 - 11.0 K/uL | [facility] | | | Cells | | | [facility] | | | | | | MEDICAL | | | | | | CENTER - | | | | | | LABORATORY | | + + + + + + | Red Blood | 4.21 | 3.70 - 5.20 | [facility] | | | Cells | | M/uL | [facility] | | | | | | MEDICAL | | | | | | CENTER - | | | | | | LABORATORY | | + + + + + + | Hemoglobin | 13.0 | 11.5 - 16.0 | [facility] | | | | | g/dL | [facility] | | | | | | MEDICAL | | | | | | CENTER - | | | | | | LABORATORY | | + + + + + + | Hematocrit | 38.6 | 34.0 - 47.0 % | [facility] | | | | | | [facility] | | | | | | [facility]ICAL | | | | | | CENTER - | | | | | | LABORATORY | | + + + + + + | MCV | 91.7 | 83.0 - 101.0 fL | [facility] | | | | | | [facility] | | | | | | [facility]ICAL | | | | | | CENTER - | | | | | | LABORATORY | | + + + + + + | MCH | 31.0 | 28.0 - 35.0 pg | [facility] | | | | | | [facility] | | | | | | [facility]ICAL | | | | | | CENTER - | | | | | | LABORATORY | | + + + + + + | MCHC | 33.8 | 32.0 - 36.0 | [facility] | | | | | g/dL | [facility] | | | | | | MEDICAL | | | | | | CENTER - | | | | | | LABORATORY | | + + + + + + | RDW-CV | 12.6 | <15.0 % | [facility] | | | | | | [facility] | | | | | | [facility] | | | | | | CENTER - | | | | | | LABORATORY | | + + + + + + | Platelet | 268 | 140 - 440 K/uL | [facility] | | | Count | | | [facility] | | [facility] | | | MEDICAL | | | | | | CENTER - | | | | | | LABORATORY | | + + + + + + | MPV | 8.6 | fL | [facility] | | | | | | [facility] | | | | | | MEDICAL | | | | | | CENTER - | | | | | | LABORATORY | | + + + + + + | % | 52.9 | 45.0 - 82.0 % | [facility] | | | Neutrophils | | | [facility] | | | | | | MEDICAL | | | | | | CENTER - | | | | | | LABORATORY | | + + + + + + | % | 38.1 | 20.0 - 45.0 % | [facility] | | | Lymphocytes | | | [facility] | | | | | | MEDICAL | | | | | | CENTER - | | | | | | LABORATORY | | + + + + + + | % Monocytes | 7.3 | 4.0 - 12.0 % | [facility] | | | | | | [facility] | | | | | | [facility] | | | | | | CENTER - | | | | | | LABORATORY | | + + + + + + | % | 1.6 | 0.0 - 5.0 % | [facility] | | | Eosinophils | | | [facility] | | | | | | MEDICAL | | | | | | CENTER - | | | | | | LABORATORY | | + + + + + + | % Basophils | 0.1 | 0.0 - 1.0 % | [facility] | | | | | | [facility] | | | | | | [facility]ICAL | | | | | | CENTER - | | | | | | LABORATORY | | + + + + + + | Absolute | 5.90 | 1.80 - 8.50 | [facility] | | | Neutrophils | | K/uL | [facility] | | | | | | MEDICAL | | | | | | CENTER - | | | | | | LABORATORY | | + + + + + + | Absolute | 4.20 (H) | 0.60 - 3.20 | [facility] | | | Lymphocytes | | K/uL | [facility] | | | | | | MEDICAL | | | | | | CENTER - | | | | | | LABORATORY | | + + + + + + | Absolute | 0.80 | 0.00 - 1.00 | [facility] | | | Monocytes | | K/uL | [facility] | | | | | | MEDICAL | | | | | | CENTER - | | | | | | LABORATORY | | + + + + + + | Absolute | 0.20 | 0.00 - 0.40 | [facility] | | | Eosinophils | | K/uL | [facility] | | | | | | MEDICAL | | | | | | CENTER - | | | | | | LABORATORY | | + + + + + + | Absolute | 0.00 | 0.00 - 0.10 | [facility] | [...] + + | [facility]. | [address] | [place] | [phone] | | [facility] | | [address] | | | - LABORATORY | | | | + + + + + documented in this encounter Visit Diagnoses + + | Diagnosis | + + | Non-small cell cancer of right lung (HCC) - Primary | + + | Malignant neoplasm of thyroid gland (HCC) Malignant neoplasm of thyroid gland | + + documented in this encounter
--- OUTSIDE RECORDS SUMMARY | ~2020-08-08 | XMS | Encounter Summary ---
Demographics + + + | Address | [address] | | | [place] [address] | + + + | Home Phone | | + + + | Preferred Language | Unknown | + + + | Marital Status | Single | + + + | Baptism Affiliation | Unknown | + + + | Race | White | + + + | Ethnic Group | Not or | + + + Author + + + | Author | [facility] | | | and [place] | + + + | Organization | [facility] | | | and [place] | + + + | Address | Unknown | + + + | Phone | Unavailable | + + + Support + + +---------+ + | Name | Relationship | Address | Phone | + + +---------+ + | Jennifer Rider | ECON | Unknown | | + + +---------+ + | Oksnaa Vitale | ECON | Unknown | | + + +---------+ + Care Team Providers + +------+ + | Care Cage Supervisor Name | Role | Phone | + +------+ + | Zuleyka Martínez | PCP | | + +------+ + Reason for Referral Diagnostic/Screening (Emergency) +--------+--------+ + + + + | Status | Reason | Specialty | Diagnoses / | Referred By | Referred To | | | | | Procedures | Contact | Contact | +--------+--------+ + + + + | Closed | | Radiology | Diagnoses | Riegert, | [facility] | | | | | Facial | Susie M, | [address] | | | | | weakness | MD [address] | [place], | | | | | Procedures | [address] | [place] | | | | | MRI Brain w | [place], | [address] | | | | | wo Contrast | [place] [address] | Phone: | | | | | OCT 20 | Phone: | [phone] | | | | | | [phone] | Fax: | | | | | | Fax: | [phone] | | | | | | [phone] | | +--------+--------+ + + + + Reason for Visit Diagnostic/Screening (Emergency) +--------+--------+ + + + + | Status | Reason | Specialty | Diagnoses / | Referred By | Referred To | | | | | Procedures | Contact | Contact | +--------+--------+ + + + + | Closed | | Radiology | Diagnoses | Riegert, | [facility] | | | | | Facial | Susie M, | [address] | | | | | weakness | [address] | [place], | | | | | Procedures | [address] | [place] | | | | | MRI Brain w | [place], | [address] | | | | | wo Contrast | [place] [address] | Phone: | | | | | OCT 20 | Phone: | [phone] | | | | | | [phone] | Fax: | | | | | | Fax: | [phone] | | | | | | [phone] | | +--------+--------+ + + + + Encounter Details +--------+ + + + + | Date | Type | Department | Care Team | Description | +--------+ + + + + | 07/18/ | Hospital | [facility] | Susie Montemayor | Facial weakness | | 2020 | Encounter | MED CTR MRI [address] | M, [address] | | | | | [address], | [address] [place], [place] | | | | | [place] [address] | [address] | | | | | [phone] | | | +--------+ + + + [...] | | 2019 | | | MD Trip [address] | | | | | | [place] | | | | | | [address] | | | | | | | | +--------+ + + + + | 08/12/ | Hospital | Infusion Therapy | Elmer Silva | | | 2019 | Encounter | | MD [address] | | | | | | [place] | | | | | | [address] | | | | | | | | +--------+ + + + + | 08/12/ | Appointment | Oncology | Lionel Benson | | | 2019 | | | [address]Ze [address] | | | | | | [address] | | | | | | [place] [address] | | | | | | [phone] | | | | | | | | +--------+ + + + + | 08/19/ | Appointment | Oncology | Elmer Silva | | | 2019 | | | EMD [address] | | | | | | [place] | | | | | | [address] | | | | | | | | +--------+ + + + + | 08/19/ | Appointment | Infusion Therapy | Elmer Silva | | | 2019 | | | MD [address] | | | | | | [facility] | | | | | | [address] | | | | | | | [...] [place] | | | | | | [id number] | | | | | | | [...] [place] | | | | | | [address] | | | | | | | [...] [place] | | | | | | [id number] | | | | | | | [...] [place] | | | | | | [id number] | | | | | | | | +--------+ + + + + documented as of this encounter Procedures + +--------+ + + + | Procedure Name | Priori | Date/Time | Associated Diagnosis | Comments | | | ty | | | | + +--------+ + + + | MRI BRAIN W WO | STAT | 07/18/2020 | Facial weakness | Results for this | | CONTRAST | | 12:43 PM | | procedure are in the | | | | PDT | | results section. | + +--------+ + + + documented in this encounter Results MRI Brain w wo Contrast (07/18/2020 12:43 PM PDT) + + | Specimen | + + | | + + + + | Addenda | + + | Addendum by Chai Nguyen MD on 07/18/2020 5:25 PM Addendum: 6 mm enhancing | | mass is seen in the left Meckel's cave. 3 mm enhancing mass is seen in the right | | Meckel's cave. Leptomeningeal spread is considered. Electronically signed by | | Chai Nguyen MD 07/18/2020 5:21 PM | + + + + + | Impressions | Performed At | + + + | No acute intracranial hemorrhage or stroke. Worsening | [facility] | | intracranial metastatic disease with multiple new and enlarging | | | masses involving the cerebral and cerebellar hemispheres as detailed | | | above. 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 | | | Electronically signed by Chai Nguyen MD 07/18/2020 2:37 PM | | + + + + + + | Narrative | Performed At | + + + | MRI BRAIN W WO CONTRAST 07/18/2020 12:13 PM HISTORY: Neuro | [facility] | | deficit, acute, stroke suspected. COMPARISON: 06/17/2020 | | | PROTOCOL: Sagittal T1, axial T2, axial T2 FLAIR fat sat, axial T1, | | | axial diffusion weighted, axial SWI, axial T1 post gadolinium, coronal | | | T1 post gadolinium, sagittal T1 post gadolinium. The patient was | | | administered 10 cc Gadavist. FINDINGS: Interval slightly | | | increased size of the now 9 x 9 mm enhancing mass in the right | | | periventricular/posterior head of the right caudate nucleus location. | | | Resolving changes along the biopsy tract. Interval increased size of | | | a small 2.8 mm enhancing lesion in the superior midline cerebellum | | | on axial T1 postcontrast image 179. Interval increased size of a 7 x | | | 3 mm enhancing lesion in the right superior mid cerebellum on image | | | 166. Question increasing size of a possible new lesion in the far | | | superior slightly lateral right cerebellum on image 179 measuring 1 | | | mm. Interval increased size of the right internal auditory canal mass | | | measuring 6 x 5 mm. Similar to slightly increased altered | | | enhancement along the posterior right temporal lobe which is | | | ill-defined and best seen on images 162-164. New mass along the left | | | posterior midbrain measuring 6 mm on image 196. Question one or 2 tiny | | | 1 mm enhancing foci in the cerebral sulci within both cerebral | | | hemispheres. The brainstem is unremarkable. The cerebellum is normal. | | | The pituitary gland has a normal appearance. The ventricles, | | | cisterns, and sulci are of normal size and shape. Normal vascular | | | flow voids are seen. The orbits are normal. Paranasal sinuses are | | | clear. Mastoid air cells are normal. Calvarium, temporal bones, | | | and skull base structures are unremarkable. | | + + + + + | Procedure Note | + + | Christopher, [id number] - 07/18/2020 2:40 PM PDT MRI BRAIN W WO CONTRAST 07/18/2020 12:13 PM | | | | HISTORY: Neuro deficit, acute, stroke suspected. | | | | COMPARISON: 06/17/2020 | | | | PROTOCOL: Sagittal T1, axial T2, axial T2 FLAIR fat sat, axial T1, | | axial diffusion weighted, axial SWI, axial T1 post gadolinium, coronal | | T1 post gadolinium, sagittal T1 post gadolinium. The patient was | | administered 10 cc Gadavist. | | | | FINDINGS: | | Interval slightly increased size of the now 9 x 9 mm enhancing mass in | | the right periventricular/posterior head of the right caudate nucleus | | location. Resolving changes along the biopsy tract. Interval increased | | size of a small 2.8 mm enhancing lesion in the superior midline | | cerebellum on axial T1 postcontrast image 179. Interval increased size | | of a 7 x 3 mm enhancing lesion in the right superior mid cerebellum on | | image 166. Question increasing size of a possible new lesion in the | | far superior slightly lateral right cerebellum on image 179 measuring | | 1 mm. Interval increased size of the right internal auditory canal | | mass measuring 6 x 5 mm. Similar to slightly increased altered | | enhancement along the posterior right temporal lobe which is | | ill-defined and best seen on images 162-164. New mass along the left | | posterior midbrain measuring 6 mm on image 196. Question one or 2 tiny | | 1 mm enhancing foci in the cerebral sulci within both cerebral | | hemispheres. The brainstem is unremarkable. The cerebellum is normal. | | The pituitary gland has a normal appearance. | | | | The ventricles, cisterns, and sulci are of normal size and shape. | | | | Normal vascular flow voids are seen. | | | | The orbits are normal. Paranasal sinuses are clear. Mastoid air cells | | are normal. | | | | Calvarium, temporal bones, and skull base structures are unremarkable. | | | | IMPRESSION: | | No acute intracranial hemorrhage or stroke. | | | | Worsening intracranial metastatic disease with multiple new and | | enlarging masses involving the cerebral and cerebellar hemispheres as | | detailed above. 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 | | | | Electronically signed by Chai Nguyen MD 07/18/2020 2:37 PM | + + + +---------+ + + | Performing | Address | City/State/Zipcode | Phone Number | | Organization | | | | + +---------+ + + | [facility] | | | | + +---------+ + + documented in this encounter Visit Diagnoses + + | Diagnosis | + + | Facial weakness | + + documented in this encounter Administered Medications + +--------+ +--------+------+------+ | Medication Order | MAR | Action | Dose | Rate | Site | | | Action | Date | | | | + +--------+ +--------+------+------+ | gadobutrol (GADAVIST) injection | Given | 07/18/20 | 10 mLs | | | | 10 mL 10 mL, Intravenous, ONCE | | 20 12:44 | | | | | PRN, Other, Starting [facility] 07/18/20 | | PM PDT | | | | | at 1244, For 1 dose, MRI | | | | | | + +--------+ +--------+------+------+ +---+---+ | | | +---+---+ documented in this encounter"
--- OUTSIDE RECORDS SUMMARY | ~2020-08-08 | XMS | Encounter Summary ---
Demographics + + + | Address | [address] | | | [place] [address] | + + + | Home Phone [...] Author + + + | Author | [facility] | | | and [place] | + + + | Organization | [facility] | | | [...] Team Providers + +------+ + | Care Ornamental Plasterer Helper Name | Role | Phone | + +------+ + | Zuleyka Martínez | PCP | | + +------+ + Reason for Visit + +--------+ + | Reason | Onset | Comments | | | Date | | + +--------+ + | Coordination Of Care | 08/08/ | | | | 2020 | | + +--------+ + Encounter Details +--------+ + + + + | Date | Type | Department | Care Team | Description | +--------+ + + + + | 08/08/ | Telephone | [facility] | Susie Montemayor | Coordination Of Care | | 2020 | | MED CTR RADIATION | MD Jared [address] | | | | | [facility] [address] | [place], [place] | | | | | [facility] | [address] | | | | | [place] [address] | | | | | | [phone] | | | +--------+ + + + [...] this encounter Miscellaneous Notes Telephone Encounter - Azucena Ritchie RN - 08/08/2020 10:58 AM PDTPatient notified that th is rx had been sent to her pharmacy. Electronically signed by Azucena Ritchie RN at 020 11:00 AM PDTTelephone Encounter - Luciano Sullivan MD - 08/08/2020 10:50 AM PDTPlease advise Olena to restart diflucan for two weeks for recurrent oral thrush. Prescription sent to [facility] in [place]. Take 2 pills (200 mg) by mouth on day 1 followed by 1 pill (100 mg) by mouth for the remaining 13 days. Luciano Sullivan MD Radiation Oncologist [facility] Office: [phone] elephone Encounter - Azucena Gilbert RN - 08/08/2020 10:21 AM PDTReturn call to patient, she states this pain first started about 2 days ago and had gotten worse. She has white patchy areas in her mouth an d down her throat. She has had thrush before and this is the same. She is unable to take h er medications because it is so painful to swallow. She states that previously she had to t mikaela two weeks of diflucan before this resolved. She confirms her pharmacy to be [facility] in [place]. elephone Encounter - Zelda Vidal - 08/08/2020 9:43 AM PDTMichelle called and requested to spe ak with Dr. Montemayor's about an infection in her mouth and throat and very hard to swallow is asking about getting a mediation please advise thank you documented in this encounter Plan of Treatment +--------+ + + + + | Date | Type | Specialty | Care Team | Description | +--------+ + + + + | 08/12/ | Appointment | Oncology | Elmer Silva | | 2019 | | | MD [address] | | | | | | [place] | | | | | | [address] | | | | | | | | +--------+ + + + + | 08/12/ | Hospital | Infusion Therapy | Elmer Silva | | 2019 | Encounter | | MD [address] | | | | | | [place] | | | | | | [id number] | | | | | | | | +--------+ + + + + | 08/12/ | Appointment | Oncology | Lionel Benson | | | 2019 | | | Ze Un[address] | | | | | | [address] [place] | | | | | | [place] [address] | | | | | | [phone] | | | | | | | | +--------+ + + + + | 08/19/ | Appointment | Oncology | Elmer Silva | | | 2019 | | | E, [address] | | | | | | [place] | | | | | | [address] | | | | | | | | +--------+ + + + + | 08/19/ | Appointment | Infusion Therapy | Elmer Silva | | | 2019 | | | E, [address] | | | | | | [address] [place], [place] | | | | | | [address] | | | | | | | [...] 2020 | Visit | | E, MD [address]azaro [address] | | | | | | [place] | | | | | | [address] | | | | | | | [...] [place] | | | | | | [address] | | | | | | | [...] [place] | | | | | | [address] | | | | | | | [...] [place] | | | | | | [id number] | | | | | | | | +--------+ + + + + documented as of this encounter Visit Diagnoses + + | Diagnosis | + + | Oral thrush - Primary Candidiasis of mouth | + + documented in this encounter"
--- OUTSIDE RECORDS SUMMARY | ~2020-08-08 | XMS | Encounter Summary ---
Demographics + + + | Address | [address] | | | [place] [address] | + + + | Home Phone | | + + + | Preferred Language | Unknown | + + + | Marital Status | Single | + + + | Yarsani Affiliation | Unknown | + + + | Race | White | + + + | Ethnic Group | Not or | + + + Author + + + | Author | [facility] | | | and [place] | + + + | Organization | [facility] | | | [...] Team Providers + +------+ + | Care Fitness Technician Name | Role | Phone | [...] | Medical | Diagnoses | [facility] | Marie, | | | | Oncology / | C34.91 | Medical | [place] | | | | Oncology | (ICD-10-CM) | Oncology | MD Bebeto | | | | | - 162.9 | Clinic [address] | [address] | | | | | (ICD-9-CM) - | [address] | [address] [place] | | | | | Non-small | [place], | [place], [place] | | | | | cell cancer | [place] | [address] Phone: | | | | | of right | [address] | [phone] | | | | | lung | Phone: | Fax: | | | | | Procedures | [phone] | [phone] | | | | | [address] | Fax: | | | | | | | [phone] | | +--------+--------+ + + + + Encounter Details +--------+ + + + + | Date | Type | Department | Care Team | Description | +--------+ + + + + | 08/29/ | Hospital | [facility] | Marie Milton | Malignant neoplasm | | 2019 | Encounter | [facility] | MD [facility] [address] | of lower lobe of | | | | [facility] [address] [place] | right lung (HCC) | | | | [address] [place] | [place] [address] | | | | | [place] [address] | [phone] | | | | | [phone] | | | +--------+ + + + [...] + + + | Blood Pressure | 145/85 | 08/29/2019 3:04 PM | | | | | PDT | | + + + + + | Pulse | 88 | 08/29/2019 3:04 PM | | | | | PDT | | + + + + + | Temperature | 36.6 C (97.9 F) | 08/29/2019 3:04 PM | | | | | PDT | | + + + + + | Respiratory Rate | 16 | 08/29/2019 3:04 PM | | | | | PDT | | + + + + + | Oxygen Saturation | 99% | 08/29/2019 3:04 PM | | | | | PDT | | + + + + + | Inhaled Oxygen | - | - | | | Concentration | | | | + + + + + | Weight | 88 kg (194 lb 0.1 | 08/29/2019 3:04 PM | | | | oz) | PDT | | + + + + + | Height | - | - | | + + + + + | Body Mass Index | 29.4 | 08/08/2019 3:00 PM | | | [...] encounter Progress Notes Milton Salazar MD - 08/29/2019 3:46 PM PDTFormatting of this note might be diff erent from the original. Hem-Onc Progress Note [facility] Pt. Name/Age/: Olena Rider 58 y.o. 1960 Med. Record Number: [id number] Date of admission: 08/29/2019 Assessment and plan: 1. Non-small cell lung cancer, RLL, Nov, 2016 Adenocarcinoma with mucinous features pT3 (two separate foci, 1.3, 1.0 cm), pN1, M0 StageIIIA S/p VATS RLL, Dec, 2016, Dr. Luis Felipe Mon EGFR mutation negative, FISH neg: ROS, ALK rearrangement PD-L1 low expression (3%) 2. Papillary carcinoma of the thyroid S/p thyroidectomy, LN excision S/p radio-iodine abllation, Oct, 2016 3. Carcinoma of the right breast, Jun, 2019 Infiltrating ductal carcinoma of intermediate his tologic grade pT1c pN0(sn) ER+(99%, strong), MS+(60%, strong), Her2 non-ampl ified (FISH ratio 1.06) Status post left lumpectomy, sentinel lymph node biopsy, Dr. Luis Felipe Pugh, July, A counseling session today beginning by reviewing the results of Oncotype DX testing and faheem hunter with patient finding of low recurrence score. We had previously discussed the low alison efit from adjuvant chemotherapy patients with such low testing exhibit and accordingly have recommended the patient instead consider a five-year program of hormonal adjuvant therapy. Today patient received a prescription for exemestane 25 mg daily. We've asked her to check back with us in about 4 weeks to assess initial tolerance warning patient of risk for muscul oskeletal pain. We also discussed the eventual need for bone mineral density testing. Rami risk panel submitted in about the same time identifying a variant of unknown significa nce. We discussed polymorphism of genes as a fairly common phenomena throughout the human g enome often unassociated with pathologic implication. We have encouraged patient at this ti me to believe that her breast cancer unrelated to hereditary. Subjective: The patient chart and medications were reviewed in detail and the patient was seen and exam ined. Olena Rider is a 58 y.o. female who returns today for report concerning results of s upplementary testing following earlier discovery of right breast cancer. Patient seen for recent medical oncology consultation following lumpectomy and sentinel lym ph node biopsy for stage I breast cancer discovered earlier this summer. This tumor demonst rated intermediate histologic grade, strong expression of both the estrogen and progesterone receptor without evidence of HER-2 amplification and without evidence of axillary lymph nod e metastases. Based on those findings together with patient's eligibility a recommendation for further molecular testing was pursued and these results are unavailable today to share w ith the patient identifying a low recurrence score 13. Based on patient's family history a recommendation for hereditary testing was also made. 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 PSH: Reviewed, no changes to admission H&P. Past Medical History: Diagnosis Date Anxiety Breast cancer (HCC) Insomnia Lung cancer (HCC) Malignant neoplasm of thyroid gland (HCC) PONV (postoperative nausea and vomiting) Past Surgical History: Procedure Laterality Date APPENDECTOMY BREAST BIOPSY Right 06/15/2019 Procedure: US GUIDED BREAST BIOPSY RIGHT - Location: [facility] BREAST BIOPSY Right 06/15/2019 Procedure: US GUIDED BREAST BIOPSY RIGHT - Location: [facility] BREAST BIOPSY Right 06/15/2019 Procedure: US GUIDED BREAST BIOPSY RIGHT - Location: [facility] BREAST BIOPSY Right 07/06/2019 Procedure: US GUIDED BREAST BIOPSY RIGHT - Location: [facility] COLECTOMY HYSTERECTOMY THYROIDECTOMY Review of Systems: Constitutional: Energy decreased to fair, reports poor sleep. Nausea is occasional, appetit e is fair. Denies high fevers, shaking chills, vomiting, weight loss, or night sweats. Appe tite without changes. Ear, Nose, Mouth, Throat: Dysphagia continues to be mild. Denies dysphagia, or tinnitus. Cardiovascular: Denies shortness of breath, dyspnea on exertion, chest pain, palpitations o r orthopnea. Respiratory: Denies cough, hemoptysis, or sputum production. Gastrointestinal: Denies abdominal pain, constipation, diarrhea, melena, or bright red bloo d per rectum. Genitourinary: Denies hematuria or dysuria. Musculoskeletal: Hips and knees arthritic pain reported. Neurologic: Mild tingling and numbness of feet continues. Denies headache or visual changes . Endocrine: Denies peripheral edema or heat/cold intolerance. Hematologic: Denies spontaneous bruising or bleeding. Integumentary: Denies rash, wounds or other skin concerns. Pain: Arthritic aching pain of hips and knees is as high as 6/10 and as low as 3/10, goal < 4/10. Review of systems as above otherwise negative Scheduled Medications: Continuous Infusions: PRN Meds:. Allergy: Allergies Allergen Reactions Morphine Anaphylaxis and Other (See Comments) Morphine And Related Other (See Comments) "unknown reaction - trouble breathing after hysterectomy" Objectives: Temp: 36.6 C (97.9 F) BP: 145/85 Pulse: 88 Resp: 16 SpO2: 99 % on Min/Max Temp past 24 hours:Temp Av.6 C (97.9 F) Min: 36.6 C (97.9 F) Max: 3 6.6 C (97.9 F) No intake or output data in the 24 hours ending 08/29/19 1546 Wt. Admission: Weight: 88 kg (194 lb 0.1 oz) Wt. Current: Weight: 88 kg (194 lb 0.1 oz) Physical Exam: Exam: General: The patient is alert and oriented. No acute distress. Psychiatric: Normal mood and affect. Diagnostic studies: Electronically signed by: Milton Salazar MD, 08/29/2019 15:46 [facility] TIME SPENT 30 MIN. > 50% AT BEDSIDE, WITH FAMILY/PATIENT IN CARE AND MEDICAL LIAISON ON UNIT AND CO ORDINATION OF CARE Portions of this chart may have been created with [employer] voice recognition software. Occasi onal wrong-word or sound-alike substitutions may have occurred due to the inherent cervantes itations of voice recognition software. Please read the chart carefully and recognize, using context, where these substitutions have occurred. reMarlene randle RN - 08/29/2019 3:07 PM PDTAMY Morales Cheggin Constitutional: Energy decreased to fair, reports poor sleep. Nausea is occasional, appetit e is fair. Denies high fevers, shaking chills, vomiting, weight loss, or night sweats. Appe tite without changes. Ear, Nose, Mouth, Throat: Dysphagia continues to be mild. Denies dysphagia, or tinnitus. Cardiovascular: Denies shortness of breath, dyspnea on exertion, chest pain, palpitations o r orthopnea. Respiratory: Denies cough, hemoptysis, or sputum production. Gastrointestinal: Denies abdominal pain, constipation, diarrhea, melena, or bright red bloo d per rectum. Genitourinary: Denies hematuria or dysuria. Musculoskeletal: Hips and knees arthritic pain reported. Neurologic: Mild tingling and numbness of feet continues. Denies headache or visual changes . Endocrine: Denies peripheral edema or heat/cold intolerance. Hematologic: Denies spontaneous bruising or bleeding. Integumentary: Denies rash, wounds or other skin concerns. Pain: Arthritic aching pain of hips and knees is as high as 6/10 and as low as 3/10, goal < 4/10. ROS otherwise negative. Note:Here for follow up today. My chart:declined today. 3: 11 PM PDTdocumented in this encounter Plan of Treatment +--------+ + + + + | Date | Type | Specialty | Care Team | Description | +--------+ + + + + | 08/12/ | Appointment | Oncology | Elmer Silva | | | 2019 | | | MD [address] | | | | | | [place] | | | | | | [id number] | | | | | | | | +--------+ + + + + | 08/12/ | Hospital | Infusion Therapy | Elmer Silva | | 2019 | Encounter | | MD [address] | | | | | | [place] | | | | | | [id number] | | | | | | | | +--------+ + + + + | 08/12/ | Appointment | Oncology | Lionel Benson | | | 2019 | | | [address] | | | | | | [address] [place] | | | | | | [place] [address] | | | | | | [phone] | | | | | | | | +--------+ + + + + | 08/19/ | Appointment | Oncology | Elmer Silva | | 2019 | | | E, [address] | | | | | | [place], [place] | | | | | | [address] | | | | | | | | +--------+ + + + + | 08/19/ | Appointment | Infusion Therapy | Elmer Silva | | | 2019 | | | E, [address] | | | | | | [place], [place] | | | | | | [address] | | | | | | | [...] [place] | | | | | | [address] | | | | | | | | +--------+ + + + + | 09/09/ | Appointment | Infusion Therapy | | | | 2019 | | | | | +--------+ + + + + | 09/16/ | Office | Oncology | Elmer Silva | | | 2019 | Visit | | MD [address] | | | | | | [facility] | | | | | [address] | | | | | | | [...] [place] | | | | | | [phone] | | | | | | | [...] [place] | | | | | | [phone] | | | | | | | | +--------+ + + + + documented as of this encounter Procedures + +--------+ + + + | Procedure Name | Priori | Date/Time | Associated Diagnosis | Comments | | | ty | | | | + +--------+ + + + | PATHOLOGY - EXTERNAL | | 08/18/2019 | | Results for this | | SCAN | | 12:00 AM | | procedure are in the | | | | PDT | | results section. | + +--------+ + + + | PATHOLOGY - EXTERNAL | | 08/08/2019 | | Results for this | | SCAN | | 12:00 AM | | procedure are in the | | | | PDT | | results section. | + +--------+ + + + documented in this encounter Results PATHOLOGY - EXTERNAL SCAN (08/18/2019 12:00 AM PDT) + + + | Narrative | Performed At | + + + | Ordered by an | | | unspecified provider. | | + + + PATHOLOGY - EXTERNAL SCAN (08/08/2019 12:00 AM PDT) + + + | Narrative | Performed At | + + + | Ordered by an | | | unspecified provider. | | + + + documented in this encounter Visit Diagnoses + + | Diagnosis | + + | Malignant neoplasm of lower lobe of right lung (HCC) | + + documented in this encounter
--- OUTSIDE RECORDS SUMMARY | ~2020-08-08 | XMS | Encounter Summary ---
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 | Role | Phone | + [...] Radiology | Diagnoses | Riegert, | [facility] | | | | | Thyroid | Susie Coleman, | Medicine | | | | | cancer (HCC) | MD [address] | | | | | Procedures | [address] | [place], | | | | | [place] Thyroid | [place], | [place] | | | | | Cancer | [place] [address] | [address] | | | | | Metastatic | Phone: | Phone: | | | | | Whole Body | [phone] | [phone] | | | | | | Fax: | Fax: | | | | | | [phone] | [phone] | +--------+--------+ + + + + Diagnostic/Screening (Routine) +--------+--------+ + + + + | Status | Reason | Specialty | Diagnoses / | Referred By | Referred To | | | | | Procedures | Contact | Contact | +--------+--------+ + + + + | Closed | | Radiology | Diagnoses | Riegert, | [facility] | | | | | Thyroid | Susie Coleman, | Medicine | | | | | cancer (HCC) | [address] | | | | | Procedures | [address] | [place], | | | | | [place] | [place], | [place] | | | | | Radiopharm | [place] [address] | [address] | | | | | Therapy Oral | Phone: | Phone: | | | | | | [phone] | [phone] | | | | | Administrati | Fax: | Fax: | | | | | o [place] [address] | [phone] | [phone] | | | | | IODIDE CAP, | | | | | | | RX | | | +--------+--------+ + + + + Reason for Visit Evaluate & Treat (Routine) +--------+--------+ + + + + | Status | Reason | Specialty | Diagnoses / | Referred By | Referred To | | | | | Procedures | Contact | Contact | +--------+--------+ + + + + | Closed | | Radiation | Diagnoses | Stephen, | [place], | | | | Oncology | Cancer of | [facility] | Susie Coleman MD | | | | | thyroid | [address] | | | | (HCC) | [address] | [address] | | | | | Consult/Thyr | [id number] | [place], | | | | | oid/Stephen | [place], | [place] [address] | | | | | (requested) | [place] [address] | Phone: | | | | | Procedures | Phone: | [phone] | | | | | [place] OFFICE | [phone] | Fax: | | | | | OUTPATIENT | Fax: | [phone] | | | | | VISIT 25 | [phone] | | | | | | MINUTES NEW | | | | | | | PATIENT | | | +--------+--------+ + + + + Encounter Details +--------+ + + + + | Date | Type | Department | Care Team | Description | +--------+ + + + + | 09/22/ | Hospital | [facility] | Susie Montemayor | Thyroid cancer (HCC) | | 2016 | Encounter | [facility] | MD Jared [address] | (Primary Dx) | | | | ONCOLOGY [address] | | | | | [place], | [address] | | | | | [place] [address] | | | | | | [phone] | | | +--------+ + + + [...] tablet by | 15 | 0 | 09/22/20 | | | (ZOFRAN ODT) 4 mg | mouth every 8 hours | tablet | | 16 | 6 | | disintegrating | as needed for [...] + + documented as of this encounter Consult Notes Susie Walker MD - 09/22/2016 11:08 AM [facility] Radiation Oncology Consultation Note PATIENT: Olena Rider MR#: [id number] :1960 DOS:09/22/2016 Chief Complaint: C73 - Malignant neoplasm of thyroid gland, Diagnosed 09/2016 (Active) History of Present Illness: Olena Rider is a 56 year-old woman recently diagnosed with Stage III, T1a N1a papil ronda thyroid cancer, bilateral, muiltifocal, largest in right lobe 1cm, positive margin, LV SI indeterminate and PNI present. Left lobe with 0.6 cm nodule, positive margin, LVSI and PNI present, 1/1 small lymph node positive. Indeterminate right lower lobe pulmonary nodul e with metabolic activity on PET/CT. Ms. Rider presented for an unrelated issue of pleuritic chest pain and left shoulder pain to the [facility] emergency Department on 06/01/16. Transferred to [facility]. Wo rkup included chest x-ray with bilateral mid lung densities. Further evaluation with a CT pulmonary angiogram on 06/02/16 showing emphysematous changes, right lateral lower lobe nodul e measuring 8 mm and posterior lateral right lung nodule measuring 7 mm. 2.5 mm lingular n odule and 3.5 mm left posterior costophrenic sulcus nodule. Mildly enlarged right hilar l ymph node measuring 1.2 cm. Also a 0.5 cm rounded hypodensity in the right thyroid. Patc hy sclerosis at L1 vertebral body. Small rounded sclerotic focus at T3 vertebral body. Di stal sclerotic area at C7 and sternal body. Other incidental findings include multiple hypo densities within the liver, consistent with cysts and a 12 mm left adrenal gland nodule of fat attenuation, consistent with lipid rich adenoma. Etiology of chest pain was not defin itively identified, cardiac workup was negative, presumed pericarditis, treated with indome thacin with resolution. Follow-up PET CT for pulmonary nodules performed on 06/17/[facility] at [facility] reased metabolic activity identified at right lower lobe pulmonary nodule, 7 mm in size wit h SUV of 3.7. No mediastinal or hilar adenopathy identified on PET/CT. A mildly enlarged left inguinal lymph node measuring 12 mm with SUV of 5.5 noted. 3 separate thyroid nodules visualized with the largest in right thyroid lobe measuring 2 cm with an SUV of 16.6. Lef t thyroid demonstrates a 7 mm nodule measuring SUV 3.9 and a 1 cm nodule with an SUV of 6. 1. Increased metabolic uptake noted in the gallbladder at SUV max 7.1, no corresponding an atomic abnormalities or masses, inflammatory etiology is suspected. No abnormal skeletal m etabolic activity. Fine-needle thyroid biopsy performed in office by Dr. Pugh, nondiagnostic. Dr. Pugh performed a total thyroidectomy on 08/11/16. Pathology: -Right thyroid: Papillary thyroid carcinoma, Tumor measuring 1 x 0.9 x 0.8 cm, multifocal, positive margin, suspicious for LVSI, perineural invasion present. - Left thyroid: Papilla ry thyroid carcinoma, tumor size 0.6 x 0.6 x 0.5 cm, unifocal, positive margin, LVSI presen t, perineural invasion present, one lymph node, separate but immediately adjacent to the th yroid is positive for metastatic papillary thyroid carcinoma. Pathologic pT1a, pN1a. 09/03/16 TSH 0.05. She continues to be very fatigued postoperatively. Olena also descr ibes tightness at her neck which is anxiety provoking. She is taking Xanax at night to hel p with sleep. Pos-operatively she has also experienced hoarseness of voice, which is slowl y improving. She has not identified any palpable lumps or nodules. She does not have any other areas of pain, apart from above described postoperative discomfort. No pulmonary sym ptoms, denies cough, shortness of breath or hemoptysis. Chest pain has not recurred. She has a long history of tobacco use, reporting 1-2 packs per week over the past 30 years. S he has been working to cut back and hopes to quit. Olena Rider was seen today as a new patient evaluation at the request of Dr.John Negro for the evaluation and consideration of radiotherapeutic treatment in our clinic. Review of Systems: ROS ConstitutionalAbnormal - Complains of fatigue and night sweats. Denies lack of appetit e, fever, rigors / chills and change in weight.ROS EyesNormal - Denies blurred vision, doub le vision and visual difficulties.ROS ENMTAbnormal - Complains of dysphagia Feels like a vandana mp in throat when swallowing and complains of feeling constriction at surgical site and eso phagitis. Denies ear pain, epistaxis, sinusitis and sputum production.ROS NeckAbnormal - Co mplains of neck pain and swelling of the neck. Denies neck masses, muscle weakness and dec reased range of motion.ROS IntegumentaryNormal - Denies blistering, bruising, dry skin, pru ritus and rash.ROS CardiovascularAbnormal - Complains of dyspnea. Denies arrhythmias, chest pain, edema and palpitations.ROS RespiratoryAbnormal - Complains of cough. Denies hemoptys is and wheezing.ROS GastrointestinalAbnormal - Complains of nausea. Denies abdominal pain, constipation, diarrhea, heartburn / dyspepsia and vomiting.ROS Genitourinary (F)Normal - D enies dysuria, frequency, hematuria, nocturia and urine color change.ROS MusculoskeletalAbn ormal - Complains of arthritis and joint pain. Denies muscle weakness and decreased range o f motion.ROS NeurologicNormal - Denies dizziness, headaches, motor weakness and sensory pro blems.ROS PsychiatricAbnormal - Complains of mood swings. Denies depression and euphoria.R OS EndocrineAbnormal - Complains of hot flashes and thyroid disease. Denies diabetes.ROS He matologic/LymphaticNormal - Denies easy bruising and tender or enlarged lymph nodes. Medications: Ambien 10 mg Ibuprofen 200 mg Levothyroxine 150 mcg TABLET q.d. Tramadol 50 mg Tums 2 TABLET q.d. Zofran 4 mg xanax 0.5 mg Allergies: Morphine Past Medical History: Solitary nodule of the lung and Thyroid nodule.4 (s) and 4 (s) Post-menopausal Past Surgical History: colon resection in 2012 for diverticular disease, appendectomy, hysterectomy in 1993 and t otal thyroidectomy on 08/11/2016. Family History: Father is . Mother is having experienced metastatic cancer, Breast Cancer . Maternal Grandmother has experienced Thyroid Gland Cancer. Cousin -thyroid cancer. Social History: Current some day smoker 0.5 packs/day for 30 years (15.0 pack years). Drinks occasionally. 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 Her 2 Young adult daughters and the patient's brother live with her. She sleeps alone. Vital Signs: Performed on 09/22/2016, 08:39BMI 28.408 kg/m2 (HIGH) Height 177 cms Weight 89.0 kg Temperature 36.8 C Pulse 87 / min Respiration 16 / min BP134/89 mm(hg) O2 Sat 99 % Pain 3 Physical Exam: General: Healthy appearing woman in no acute medical distress. KPS: 90 HEENT: Pupils equa l, round and reactive to light. No conjunctival icterus or injection. EOMI. Oral, moist muc us membranes. Well healed incision. Lymphatic: No cervical, supraclavicular or axillary lym phadenopathy. Cardiovascular: Regular rate and rhythm, no murmur. [...] extremities normally with normal gait. Psychiatric: Appropriate. Imaging, pathology and pertinent labs reviewed personally and described above in history o f present illness. Questionnaires: Are you having pain? - Yes Where does it hurt most? - throat Rate your pain from 0-10: 0-10 scale with 0 = no pain and 10= worst pain - 3 Describe your pain (quality) i.e. aching, sharp, stabbing, etc. - feels constricting What do you use for pain medication? Name and dose - tramadol and ibupfen Impression & Recommendation: 56 year-old woman recently diagnosed with Stage III, T1a N1a papillary thyroid cancer, gosia ateral, muiltifocal, larges in right lobe 1cm, positive margin, LVSI indeterminate and PNI present. Left lobe with 0.6 cm nodule, positive margin, LVSI and PNI present, 1/1 small ly mph node positive. Indeterminate right lower lobe pulmonary nodule with metabolic activity on PET/CT. Today I reviewed with Mrs. Rider the diagnostic information pertaining to her thyroid cance r and pulmonary nodule. Her case was also discussed at the [facility]' tumor board last week. Dr. Pugh and I reviewed with the remainder of the Tumor Board potential workup and treatment options. Potential etiologies of the lung lesion include metastatic thyroid can cer, lung cancer, benign inflammatory lesion or other. Biopsy of the right lower lobe nod ule was considered, however given the size and location this was felt to be not amenable t o percutaneous, CT-guided biopsy. Dr. Pugh also felt that thoracoscopy or thoracotomy bio psy/excision would be difficult. Consideration was made for pretreatment radioactive iodine uptake scan to further evaluate the pulmonary nodule. However sensitivity of this scan is low and may not be able to reli ably identify small volume pulmonary metastatic disease. Additionally an isolated tiny pul monary metastasis from thyroid cancer may be uncommon. She does also have a left groin nod e that is small at 1.2 cm in long axis was with only moderately metabolic active. Comparis on to prior CT scan in December demonstrated stability in size. In isolation this inguinal l ymph node is not highly suspicious however if identified clinically this could be biopsied. Regarding adjuvant treatment for the thyroid cancer radioactive iodine is a consideration. Adverse pathologic factors include tumor size 1 cm, lymphovascular space invasion, lymph node involvement, multifocal, positive margin and perineural invasion. Post-operative labs with thyroglobulin and anti-thyroglobulin antibody will be needed for further risk assessm ent. NCCN guidelines 1.2016 reviewed. Pretreatment iodine scan can also be considered fo r a risk assessment however this is not universally recommended. There is some concern for decreased uptake of therapeutic dose with the use of pretreatment iodine scanning. My rec ommendation is for empiric adjuvant therapy of 100 mCi which would be an adequate dose to c over her primary thyroid cancer risk as well as small volume metastatic disease if present. Posttreatment imaging will be obtained and may provide an assessment of the lung and ingu inal lymph node lesions. However these lesions are small in size and may be below the leve l of detection for a thyroid uptake scan. Depending on results of thyroglobulin and posttr eatment scan management of lung nodule will be determined. It has been 3 months since her PET/CT so a follow-up diagnostic CT will be requested to reassess this lesion. Imaging wi ll be reviewed with radiology here at [facility] to determine potential for CT-guided biop sy as well. The risks, benefits, logistics, and techniques of I-131 treatment were discussed. We revi ewed the preparation including low iodine diet, Thyrogen injections and medications. Det ail outline will be provided once treatment date is established. We also discussed radia tion safety precautions. She was advised to take one week off of work. Precautions around the house with her family members were also discussed. A detailed discussion regarding signs and symptoms of early(temporary) and late(permanent) side effects occurred next. Rosendo cuenca verbalized understanding of the treatment recommendation and wishes to proceed when a ppropriate. This will be arranged pending labs and CT. Olena was encouraged to call our clinic with any further questions or concerns. Thank you for allowing me to participate in the care of Olena Rider. If you should have an y questions regarding this evaluation, please do not hesitate to contact me. Susie Vargas M.D. Radiation Oncologist Department of Radiation Oncology [facility] Electronically signed by Susie Walker M.D CC: Doris Stanford M.D. bus driver This note was transcribed using [employer] speech recognition software. As a result, there ma y be unintended for medical and/or spelling errors. Every attempt is made to correct dicta tion. If there are any questions or errors please contact our office. CSN: [id number] signed by Susie Walker MD at 09/22/2016 12:46 PM PSTd ocumented in this encounter Miscellaneous Notes Miscellaneous - Susie Walker MD - 09/22/2016 10:54 AM PST Radiopharmaceutical prescribed (include chemical name): I-131 Activity to be ordered: [ 1 00 ] mCi Route of Administration: oral Oral capsule (I-131) Date Isotope Ordered:09/22/2016 Anticipated Treatment Date: [10/14/16] Notes: Written Directive for Radioisotope Administration Patient Name: Olena Rider : 1960 Diagnosis: C73 - Malignant neoplasm of thyroid gland, Diagnosed 09/2016 (Active) Susie Walker M.D. Radiation Oncologist Department of Radiation Oncology [facility] : [phone] lectronically signed by Susie Walker MD at 09/22/2016 10:56 AM PSTMiscSusie Gunderson MD - 09/22/2016 10:52 AM PST Anticipated treatment date: Thyrogen injections on 10/12/16 and 10/13/16 Thyrogen protocol (Infusion Center) for Therapy Check-in with radiation oncology nurse for education/consent Prior to first Thyrogen dose, draw labs: TSH, Tg (Thyroglobulin), Anti-Thyroglobul in antibodies Serum bHCG (serum qualitative test) STAT with results prior to Thyrogen Thyrogen 0.9 mg IM q24h for 2 doses given 1 day apart (within 48 hours) On the day of I-131 ablation, draw routine labs: TSH, Tg (Thyroglobulin), Anti-Thy roglobulin antibodies Thyrogen protocol (Infusion Center) for Follow-up Imaging Prior to first Thyrogen dose, draw labs: TSH, Tg (Thyroglobulin), Anti-Thyroglobul in antibodies Serum bHCG (serum qualitative test) STAT with results prior to Thyrogen Thyrogen 0.9 mg IM q24h for 2 doses given 1 day apart (within 48 hours) On the day of I-131 administration, draw routine labs: TSH, Tg (Thyroglobulin), An ti-Thyroglobulin antibodies Notes: Pre-Authorization verified: Plan entered into [employer] Written Directive for Radioisotope Administration Patient Name: Olena Rider : 1960 Diagnosis: C73 - Malignant neoplasm of thyroid gland, Diagnosed 09/2016 (Active) Susie Walker M.D. Radiation Oncologist Department of Radiation Oncology [facility] : [phone] documented in this encounter Plan of Treatment +--------+ + + + + | Date | Type | Specialty | Care Team | Description | +--------+ + + + + | 08/12/ | Appointment | Oncology | Elmer Silva | | 2019 | | | MD [address] | | | | | | [place] | | | | | | [address] | | | | | | | | +--------+ + + + + | 08/12/ | Hospital | Infusion Therapy | Elmer Silva | | | 2019 | Encounter | | MD [address] | | | | | | [place] | | | | | | [address] | | | | | | | | +--------+ + + + + | 08/12/ | Appointment | Oncology | Lionel Benson | | 2019 | | | eZ Un[address] | | | | | | [address] | | | | | | [place] [address] | | | | | | [phone] | | | | | | | | +--------+ + + + + | 08/19/ | Appointment | Oncology | Elmer Silva | | | 2019 | | | E, MD [address] | | | | | | [place] | | | | | | [address] | | | | | | | | +--------+ + + + + | 08/19/ | Appointment | Infusion Therapy | Elmer Silva | | | 2019 | | | E, MD [address] | | | | | | [place] | | | | | | [address] | | | | | | | [...] [place] | | | | | | [address] | | | | | | | [...] [place] | | | | | | [address] | | | | | | | [...] [place] | | | | | | [address] | | | | | | | | +--------+ + + + + | 09/23/ | Appointment | Infusion Therapy | | | | 2019 | | | | | +--------+ + + + + | 11/22/ | Appointment | Radiation Oncology | Susie Montemayor | | | 2020 | | | MD [address] | | | | | | [place], [place] | | | | | | [address] | | | | | | | | +--------+ + + + + documented as of this encounter Results [facility] Thyroid Cancer Metastatic Whole Body (10/21/2016 9:31 AM PST) + + | Specimen | + + | | + + + + + | Narrative | Performed At | + + + | [place] THYROID CANCER METASTATIC SCAN WHOLE BODY. 10/21/2016 8:52 AM | [facility] | | HISTORY: 1 week post ablation. COMPARISON: None available. | | | TECHNIQUE: 27.8 mCi Iodine 131 was administered orally on 10/14/2016 | | | for thyroid ablation. Imaging was obtained seven days post | | | ablation in anterior and posterior projections FINDINGS: | | | Significant residual activity is seen within the region of the | | | thyroid, more prominent to the right of the midline. No focal areas | | | of unexpected uptake are identified. Expected activity is identified | | | in the region of the nasopharynx and salivary glands. (Expected | | | areas of uptake generally include the nasopharynx, salivary glands, | | | stomach, colon, bladder, and the lactating breasts.) IMPRESSION | | | - Significant Iodine uptake within the thyroid bed No evidence of | | | abnormal significant uptake in unexpected regions. Dictated and | | | Signed by: Gasper Gustafson MD Electronically signed: 10/22/2016 | | | 7:12 AM | | + + + + + | Procedure Note | + + | Christopher, Rad Results In - 10/22/2016 7:15 AM PST [facility] THYROID CANCER METASTATIC SCAN WHOLE | | BODY. 10/21/2016 8:52 AMHISTORY: 1 week post ablation.COMPARISON: None | | available.TECHNIQUE: 27.8 mCi Iodine 131 was administered orally on 10/14/2016 for | | thyroidablation. Imaging was obtained seven days post ablation in anterior andposterior | | projectionsFINDINGS:Significant residual activity is seen within the region of the | | thyroid, moreprominent to the right of the midline.No focal areas of unexpected uptake | | are identified.Expected activity is identified in the region of the nasopharynx and | | salivaryglands. (Expected areas of uptake generally include the nasopharynx, salivary | | glands,stomach, colon, bladder, and the lactating breasts.)IMPRESSION -Significant | | Iodine uptake within the thyroid bedNo evidence of abnormal significant uptake in | | unexpected regions.Dictated and Signed by: Gasper Gustafson MD Electronically signed: | | 10/22/2016 7:12 AM | |prominent to the right of the midline. | |No focal areas of unexpected uptake are identified. | |Expected activity is identified in the region of the nasopharynx and salivary | |glands. | |(Expected areas of uptake generally include the nasopharynx, salivary glands, | |stomach, colon, bladder, and the lactating breasts.) | | | | | |IMPRESSION - | |Significant Iodine uptake within the thyroid bed | |No evidence of abnormal significant uptake in unexpected regions. | | | |Dictated and Signed by: Gasper Gustafson MD | | Electronically signed: 10/22/2016 7:12 AM | + + + +---------+ + + | Performing | Address | City/State/Zipcode | Phone Number | | Organization | | | | + +---------+ + + | [facility] | | | | + +---------+ + + [place] Radiopharm Therapy Oral Administratio (10/14/2016 9:21 AM PST) + + | Specimen | + + | | + + + + + | Narrative | Performed At | + + + | No Radiologist interpretation, please see Chart Review. | [facility] | + + + + +---------+ + + | Performing | Address | City/State/Zipcode | Phone Number | | Organization | | | | + +---------+ + + | [facility] | | | | + +---------+ + + TSH (09/22/2016 10:21 AM PST) + + + + + + | Component | Value | Ref Range | Performed | Pathologist | | | | | At | Signature | + + + + + + | TSH | 1.23Comment: All TSH | 0.34 - 5.60 | [...] + | [facility] | [address] | [place] | [phone] | | [facility] | | [address] | | | - LABORATORY | | | | + + + + + Thyroglobulin,Reflex (09/22/2016 10:21 AM PST) + + + + + [...] | [facility] | | | | [address], [place] | | | | | | [address] | | | | + + + + + + | Thyroglobul | 0.5 (L)Comment: The | 1.2 - 35.0 | REFERENCE | | | in | [place] | ng/mL | [facility] | | [...] [place] | | | | | | [address] | | | | + + + + + + + + | Specimen | + + | Blood specimen | | (specimen) | + + + + + + + | Performing | Address | City/State/Zipcode | Phone Number | | Organization | | | | + + + + + | REFERENCE [facility] | [address] | [place] [address] | [phone] | + + + + + documented in this encounter Visit Diagnoses + + | Diagnosis | + + | Thyroid cancer (HCC) - Primary Malignant neoplasm of thyroid gland | + + documented in this encounter"
--- OUTSIDE RECORDS SUMMARY | ~2020-08-08 | XMS | Encounter Summary ---
Demographics + + + | Address | [address] | | | [place] [address] | + + + | Home Phone | | + + + | Preferred Language | Unknown | + + + | Marital Status | Single | + + + | Lutheran Affiliation | Unknown | + + + | Race | White | + + + | Ethnic Group | Not or | + + + Author + + + | Author | [facility] | | | and [place] | + + + | Organization | [facility] | | [...] Team Providers + +------+ + | Care Actuary Name | Role | Phone | + [...] Closed | | Radiology | Diagnoses | | [address] | | | | | Non-small | [place], | [address] | | | | | cell cancer | Milton | Shakila Jhaveri, | | | | | of right | [place] | [place] [address] | | | | | lung (HCC) | [address] | Phone: | | | | | Procedures | [place] | [phone] | | | | | CT Chest w | [place] | Fax: | | | | | Contrast | [address] | [phone] | | | | | | Phone: | | | | | | | [phone] | | | | | | | Fax: | | | | | | | [phone] | | +--------+--------+ + + + + [...] | | | (ICD-9-CM) - | [address] | [address] [place] | | | | | Non-small | [place], | [place], [place] | | | | | cell cancer | [place] | [address] Phone: | | | | | of right | [address] | [phone] | | | | | lung | Phone: | Fax: | | | | | Procedures | [phone] | [phone] | | | | | [address] | Fax: | | | | | | | [phone] | | +--------+--------+ + + + + Encounter Details +--------+ + + + + | Date | Type | Department | Care Team | Description | +--------+ + + + + | 05/24/ | Hospital | [facility] | Milton Salazar | Non-small cell | | 2019 | Encounter | [facility] | [place] [address] | cancer of right lung | | | | [facility] [address] | [address] [place] | (HCC) (Primary Dx); | | | | [address] [place] | [place] [address] | Abnormal stress ECG | | | | [place] [address] | [phone] | with treadmill; | | | | [phone] | | Malignant neoplasm | | | | | | of thyroid gland | | | | | | (HCC) | +--------+ + + [...] + + + | Blood Pressure | 133/84 | 05/24/2019 8:04 AM | | | | | PDT | | + + + + + | Pulse | 90 | 05/24/2019 8:04 AM | | | | | PDT | | + + + + + | Temperature | 36.8 C (98.3 F) | 05/24/2019 8:04 AM | | | | | PDT | | + + + + + | Respiratory Rate | 16 | 05/24/2019 8:04 AM | | | | | PDT | | + + + + + | Oxygen Saturation | 98% | 05/24/2019 8:04 AM | | | | | PDT | | + + + + + | Inhaled Oxygen | - | - | | | Concentration | | | | + + + + + | Weight | 87.5 kg (192 lb 14.4 | 05/24/2019 8:04 AM | | | | oz) | PDT | | + + + + + | Height | - | - | | + + + + + | Body Mass Index | 29.33 | 11/04/2016 9:00 AM | | | [...] documented as of this encounter Progress Notes Amanda Mckenna CMA - 05/24/2019 8:06 AM PDTREVIEW OF SYSTEMS Constitutional: Denies fatigue. Denies high fevers, shaking chills, anorexia, nausea, vomit ing, weight loss, or night sweats. Appetite without changes. Ear, Nose, Mouth, Throat: Denies odynophagia, dysphagia, or tinnitus. Cardiovascular: Denies shortness of breath, dyspnea on exertion, chest pain, palpitations o r orthopnea. Respiratory: Denies cough, hemoptysis, or sputum production. Gastrointestinal: Denies abdominal pain, constipation, diarrhea, melena, or bright red bloo d per rectum. Genitourinary: Denies hematuria or dysuria. Musculoskeletal:States having her right hip replaced in March which during PT she fractured i t, so recuperating has been tough~per pt. Neurologic: Denies headache, visual changes, or numbness/tingling of the extremities. Endocrine: Denies peripheral edema or heat/cold intolerance. Hematologic: Denies spontaneous bruising or bleeding. Integumentary: Denies rash, wounds or other skin concerns. Pain: Right hip pain at a 3/10. Manages pain w/ Celebrex and Tylenol. Note: Here for labs and follow up. My chart: Active ilton Salazar MD - 05/24/2019 7:57 AM PDTFormatting of this note might be different from the origi nal. Hem-Onc Progress Note [facility] Pt. Name/Age/: Olena Rider 58 y.o. 1960 Med. Record Number: [id number] Date of admission: 05/24/2019 Assessment and plan: 1. Non-small cell lung cancer, RLL, Nov, 2016 Adenocarcinoma with mucinous features pT3 (two separate foci, 1.3, 1.0 cm), pN1, M0 StageIIIA S/p VATS RLL, Dec, 2016, Dr. Luis Felipe Mon EGFR mutation negative, FISH neg: ROS, ALK rearrangement PD-L1 low expression (3%) 2. Papillary carcinoma of the thyroid S/p thyroidectomy, LN excision S/p radio-iodine abllation, Oct, 2016 Counseling session this morning first offering sympathy for complications and acknowledgmen t of potential role of her earlier chemotherapy setting the stage for avascular necrosis. Recommendation for ongoing surveillance monitoring and have scheduled a recheck CT scan and a time until her upcoming visit in approximately 6 months. Subjective: The patient chart and medications were reviewed in detail and the patient was seen and exam ined. Olena Rider is a 58 y.o. female who returns today for follow-up and surveillance mon itoring of a remission of lung cancer. Interim history of elective right hip replacement based on patient's earlier symptoms of pa in and findings of degenerative disease. It was during physical therapy following recovery from surgery the patient then went on to experience fracture of the right femur which is now requiring avoidance of weightbearing on the right hip. She is hoping to be able to resume physical therapy soon. She received an indication that she may have developed avascular nec rosis of the hip as a complication, perhaps from patient's earlier chemotherapy. Patient al so has contralateral left hip disease and as a potential candidate for replacement there as well. The net effect of all of this has been to keep patient out from work in the time [facility] e surgery in March. She is hoping to be able to return to work in the near future. PSH: Reviewed, no changes to admission H&P. Past Medical History: Diagnosis Date Anxiety Insomnia Malignant neoplasm of thyroid gland (HCC) PONV (postoperative nausea and vomiting) Past Surgical History: Procedure Laterality Date APPENDECTOMY COLECTOMY HYSTERECTOMY THYROIDECTOMY Review of Systems: Constitutional: Denies fatigue. Denies high fevers, shaking chills, anorexia, nausea, vomit ing, weight loss, or night sweats. Appetite without changes. Ear, Nose, Mouth, Throat: Denies odynophagia, dysphagia, or tinnitus. Cardiovascular: Denies shortness of breath, dyspnea on exertion, chest pain, palpitations o r orthopnea. Respiratory: Denies cough, hemoptysis, or sputum production. Gastrointestinal: Denies abdominal pain, constipation, diarrhea, melena, or bright red bloo d per rectum. Genitourinary: Denies hematuria or dysuria. Musculoskeletal:States having her right hip replaced in March which during PT she fractured i t, so recuperating has been tough~per pt. Neurologic: Denies headache, visual changes, or numbness/tingling of the extremities. Endocrine: Denies peripheral edema or heat/cold intolerance. Hematologic: Denies spontaneous bruising or bleeding. Integumentary: Denies rash, wounds or other skin concerns. Pain: Right hip pain at a 3/10. Manages pain w/ Celebrex and Tylenol. Review of systems as above otherwise negative [...] times daily as needed for Anxie ty. busPIRone (BUSPAR) 5 mg tablet TK 1 TO 2 TS PO 3 XD 0 calcium carbonate (TUMS) 500 mg chewable tablet Take 2 tablets by mouth as needed. celecoxib (CELEBREX) 200 mg capsule TK 1 C PO BID 0 gabapentin (NEURONTIN) 600 MG tablet TK 1 T PO TID 0 HYDROmorphone (DILAUDID) 2 mg tablet Take 2-4 mg by mouth every 4 hours as needed. ibuprofen (ADVIL,MOTRIN) 600 MG tablet Take 600 [...] every 8 hours as needed for Nausea. ondansetron (ZOFRAN) 4 mg tablet TK 1 T PO Q 6 HOURS PRN 3 traMADol (ULTRAM) 50 mg tablet Take 50 mg by mouth every 6 hours as needed for Pain. zolpidem (AMBIEN) 10 mg tablet Take 10 mg by mouth nightly as needed for Sleep. No current facility-administered medications on file prior to encounter. Objectives: on Min/Max Temp past 24 hours:No data recorded No intake or output data in the 24 hours ending 05/24/19 0757 Wt. Admission: Wt. Current: Physical Exam: Exam: General: The patient is alert and oriented. No acute distress. HEENT: PERRL, Oral mucosa intact. Neck is supple. Cardiovascular: Regular rate and rhythm, no murmur. [...] function, No focal defi cits noted. Muscular/Skeletal: Using crutches for ambulation Psychiatric: Normal mood and affect. Diagnostic studies: Electronically signed by: Milton Salazar, 05/24/2019 7:57 [facility] TIME SPENT 20 MIN. > 50% AT BEDSIDE, WITH FAMILY/PATIENT IN CARE AND PUTTY REMOVER ON UNIT AND CO ORDINATION OF CARE Portions of this chart may have been created with [employer] voice recognition software. Occasi onal wrong-word or sound-alike substitutions may have occurred due to the inherent cervantes itations of voice recognition software. Please read the chart carefully and recognize, using context, where these substitutions have occurred. documented in this encounter Miscellaneous Notes Addendum Note - Amanda Mckenna CMA - 05/24/2019 10:12 AM PDT Encounter addended by: Amanda Mckenna CMA on: 05/24/2019 10:12 Actions taken: Charge Capture section accepted documented in this encounter Plan of Treatment +--------+ + + + + | Date | Type | Specialty | Care Team | Description | +--------+ + + + + | 08/12/ | Appointment | Oncology | Elmer Silva | | 2019 | | | MD [address] | | | | | | [place], [place] | | | | | | [address] | | | | | | | | +--------+ + + + + | 08/12/ | Hospital | Infusion Therapy | Elmer Silva | | 2019 | Encounter | | E, MD [address] | | | | | | [place], [place] | | | | | | [address] | | | | | | | | +--------+ + + + + | 08/12/ | Appointment | Oncology | Lionel Benson | | | 2019 | | | [address] | | | | | | [address] [place] | | | | | | [place] [address] | | | | | | [phone] | | | | | | | | +--------+ + + + + | 08/19/ | Appointment | Oncology | Elmer Silva | | | 2019 | | | E, [address] | | | | | | [place], [place] | | | | | | [address] | | | | | | | | +--------+ + + + + | 08/19/ | Appointment | Infusion Therapy | Elmer Silva | | | 2019 | | | E, [address] | | | | | | [place], [place] | | | | | | [address] | | | | | | | [...] [place] | | | | | | [address] | | | | | | | [...] [place] | | | | | | [address] | | | | | | | | +--------+ + + + + | 09/16/ | Appointment | Infusion Therapy | | | | 2019 | | | | | +--------+ + + + + | 09/23/ | Office | Oncology | Yana Silvaall | | | 2019 | Visit | | MD [address] | | | | | | [place] | | | | | | [address] | | | | | | | | +--------+ + + + + | 09/23/ | Appointment | Infusion Therapy | | | | 2019 | | | | | +--------+ + + + + | 11/22/ | Appointment | Radiation Oncology | Susie Montemayor | | | 2020 | | | MD [address] | | | | | | [place] | | | | | | [address] | | | | | | | | +--------+ + + + + documented as of this encounter Procedures + +--------+ + + + | Procedure Name | Priori | Date/Time | Associated Diagnosis | Comments | | | ty | | | | + +--------+ + + + | CBC W/AUTO | STAT | 05/24/2019 | Non-small cell | Results for this | | DIFFERENTIAL | | 7:49 AM | cancer of right lung | procedure are in the | | | | PDT | (HCC) | results section. | + +--------+ + + + | COMPREHENSIVE | STAT | 05/24/2019 | Non-small cell | Results for this | | METABOLIC PANEL | | 7:49 AM | cancer of right lung | procedure are in the | | | | PDT | (HCC) | results section. | + +--------+ + + + documented in this encounter Results CT Chest w Contrast (08/08/2019 10:58 AM PDT) + + | Specimen | + + | | + + + + + | Narrative | Performed At | + + + | CT CHEST W CONTRAST 08/08/2019 10:50 AM HISTORY: surveillance for | [facility] | | lung cancer recurrence. COMPARISON: 08/18/2019 PROTOCOL: | | | Axial images of the chest were obtained after uneventful | | | administration of mL Omnipaque 350. Coronal and sagittal | | | reformations were acquired. CHEST FINDINGS: LUNGS: Mild | | | bibasilar scarring. Stable left medial lower lobe pleural bleb. No | | | evidence of pneumothorax or pleural effusion. Stable post surgical | | | changes related to prior right lower lobectomy. 2 mm nodule is seen | | | in the right upper lobe on series 4, image 40. 2 mm nodule along the | | | right major fissure is unchanged and almost certainly benign. Stable | | | 3 mm nodule in the left lingula on image 86. HEART: The heart is of | | | normal size. VASCULATURE: Aorta is normal in size and without | | | evidence of dissection or aneurysmal dilation. Mild aortic | | | calcification. The pulmonary arteries are unremarkable. Visualized | | | venous structures are patent. LYMPH NODES: No evidence of axillary, | | | mediastinal, or hilar lymphadenopathy. MEDIASTINUM: Trachea and | | | esophagus are normal. Neck base is normal. SOFT TISSUES: Fluid-filled | | | structure in the right lateral breast soft tissues most likely | | | represents a postoperative seroma/hematoma. Right breast and | | | thickening. BONES: There are no acute osseous abnormalities. Stable | | | slight hazy/ill-defined sclerosis along the posterior aspect of the | | | L1 vertebral body. ABDOMEN: Hypodensities within the liver are too | | | small to further characterize but are stable and statistically | | | represent simple cysts. Stable left adrenal gland adenoma. | | | IMPRESSION - No evidence for new or worsening metastatic disease to | | | the chest. Stable nodules as detailed above. Unchanged | | | appearance of the sclerotic L1 vertebral body lesion. Dictated and | | | Signed by: Chai Nguyen MD Electronically signed: 08/08/2019 | | | 11:33 AM | | + + + + + | Procedure Note | + + | Christopher, Rad Results In - 08/08/2019 11:[address] CHEST W CONTRAST 08/08/2019 10:50 AM | | | | HISTORY: surveillance for lung cancer recurrence. | | | | COMPARISON: 08/18/2019 | | | | PROTOCOL: Axial images of the chest were obtained after uneventful | | administration of mL Omnipaque 350. Coronal and sagittal reformations were | | acquired. | | | | CHEST FINDINGS: | | | | LUNGS: Mild bibasilar scarring. Stable left medial lower lobe pleural bleb. No | | evidence of pneumothorax or pleural effusion. Stable post surgical changes | | related to prior right lower lobectomy. 2 mm nodule is seen in the right upper | | lobe on series 4, image 40. 2 mm nodule along the right major fissure is | | unchanged and almost certainly benign. Stable 3 mm nodule in the left lingula on | | image 86. | | HEART: The heart is of normal size. | | VASCULATURE: Aorta is normal in size and without evidence of dissection or | | aneurysmal dilation. Mild aortic calcification. The pulmonary arteries are | | unremarkable. Visualized venous structures are patent. | | LYMPH NODES: No evidence of axillary, mediastinal, or hilar lymphadenopathy. | | MEDIASTINUM: Trachea and esophagus are normal. Neck base is normal. | | SOFT TISSUES: Fluid-filled structure in the right lateral breast soft tissues | | most likely represents a postoperative seroma/hematoma. Right breast and | | thickening. | | BONES: There are no acute osseous abnormalities. Stable slight hazy/ill-defined | | sclerosis along the posterior aspect of the L1 vertebral body. | | ABDOMEN: Hypodensities within the liver are too small to further characterize | | but are stable and statistically represent simple cysts. Stable left adrenal | | gland adenoma. | | | | IMPRESSION - | | No evidence for new or worsening metastatic disease to the chest. | | | | Stable nodules as detailed above. | | | | Unchanged appearance of the sclerotic L1 vertebral body lesion. | | | | Dictated and Signed by: Chai Nguyen MD | | Electronically signed: 08/08/2019 11:33 AM | + + + +---------+ + + | Performing | Address | City/State/Zipcode | Phone Number | | Organization | | | | + +---------+ + + | [facility] | | | | + +---------+ + + CBC w/ Auto Differential (05/24/2019 7:49 AM PDT) + + + + + + | Component | Value | Ref Range | Performed | Pathologist | | | | | At | Signature | + + + + + + | White Blood | 9.2 | 4.0 - 11.0 K/uL | [facility] [...] + + + + | Hemoglobin | 12.9 | 11.5 - 16.0 | [facility] | | | | | g/dL | [facility] | | | | | [facility] | | | [facility] - | | | | | | [facility]ATORY | | + + + + + + | Hematocrit | 40.3 | 34.0 - 47.0 % | [facility] | | | | | | [facility] | | [facility] | [facility] | | | | [facility] - | | | | | | [facility]ATORY | | + + + + + + | MCV | 91.6 | 83.0 - 101.0 fL | [facility] | | | | | | [facility] | [facility] | [facility] | | | | | [facility] - | | | | | | [facility]ATORY | | + + + + + + | MCH | 29.3 | 28.0 - 35.0 pg | [facility] | | | | | | [facility] | [facility] | [facility] | | | | [facility] - | | | | | | [facility]ATORY | | + + + + + + | MCHC | 32.0 | 32.0 - 36.0 | [facility] | | | | | g/dL | [facility] | | | | | | [facility] | | | | | | [facility] - | | | | | | LAB[facility]ATORY | | + + + + + + | RDW-CV | 12.9 | <15.0 % | [facility] | | | | | | [facility] | | | | | | [facility] | | | | | [facility] - | | | | | | LAB[facility]ATORY | | + + + + + + | RDW-SD | 42.7 | 35.1 - 46.3 fL | [facility] | | | | | | [facility] | | [facility] | [facility] | | | | | [facility] - | | | | | | [facility]ATORY | | + + + + + + | Platelet | 326 | 140 - 440 K/uL | [facility] | | | Count | | | [facility] | | | | | | [facility] | | | | | | [facility] - | | | | | | LAB[facility]ATORY | | + + + + + + | MPV | 9.8 | 6.5 - 12.4 fL | [facility] | | | | | | [facility] | [facility] | [facility] | | | | [facility] - | | | | | | LAB[facility]ATORY | | + + + + + + | % | 52.8 | 45.0 - 82.0 % | [facility] | | | Neutrophils | | | [facility] | | | | | | [facility] | | | | | | [facility] - | | | | | | LAB[facility]ATORY | | + + + + + + | % | 36.5 | 20.0 - 45.0 % | [facility] | | | Lymphocytes | | | [facility] | | | | | | [facility] | | | | | | [facility] - | | | | | | LAB[facility]ATORY | | + + + + + + | % Monocytes | 6.7 | 4.0 - 12.0 % | [facility] | | | | | | [facility] | | | | | | [facility] | | | | | | [facility] - | | | | | | LAB[facility]ATORY | | + + + + + + | % | 2.9 | 0.0 - 5.0 % | [facility] | | | Eosinophils | | | [facility] | | | | | | [facility] | | | | | | [facility] - | | | | | | LAB[facility]ATORY | | + + + + + + | % Basophils | 0.9 | 0.0 - 1.0 % | [facility] | | | | | | [facility] | | | | | | [facility] | | | | | | [facility] - | | | | | | LAB[facility]ATORY | | + + + + + + | % Immature | 0.2 | 0.0 - 0.4 % | [facility] | | | Granulocyte | | | [facility] | | | s | | | [facility]ICAL | | | | | | CENTER - | | | | | | LABORATORY | | + + + + + + | Absolute | 4.87 | 1.80 - 8.50 | [facility] | | | Neutrophils | | K/uL | [facility] | | | | | | [facility] | | | | | | [facility] - | | | | | | LAB[facility]ATORY | | + + + + + + | Absolute | 3.37 (H) | 0.60 - 3.20 | [facility] | | | Lymphocytes | | K/uL | [facility] | | | | | | [facility] | | | | | | [facility] - | | | | | | LAB[facility]ATORY | | + + + + + + | Absolute | 0.62 | 0.00 - 1.00 | [facility] | | | Monocytes | | K/uL | [facility] | | | | | | [facility] | | | | | | [facility] - | | | | | | LAB[facility]ATORY | | + + + + + + | Absolute | 0.27 | 0.00 - 0.40 | [facility] | | | Eosinophils | | K/uL | [facility] | | | | | | [facility] | | | | | | [facility] - | | | | | | LAB[facility]ATORY | | + + + + + + | Absolute | 0.08 | 0.00 - 0.10 | [facility] | | | Basophils | | K/uL | [facility] | | | | | | [facility] | | | | | | [facility] - | | | | | | LAB[facility]ATORY | | + + + + + + | Absolute | 0.02 | 0.00 - 0.03 | [facility] | | | Immature | | K/uL | [facility] | | | Granulocyte | | | MEDICAL | | | s | | | CENTER - | | | | | | LABORATORY | | + + + + + + | % nRBC | 0 | 0 - 2 per 100 | [facility] | | | | | WBCs | [facility] | | | | | | [facility] | | | | | | [facility] - | | | | | | LABORATORY | | + + + + + + | Absolute | 0.00 | 0.00 - 0.01 | [facility] | | | nRBC | | K/uL | [facility] | [...] ST. | [address] | [place] | [phone] | | [facility] | | [address] | | | - LABORATORY | | | | + + + + + Comprehensive Metabolic Panel (05/24/2019 7:49 AM PDT) + + + + + + | Component | Value | Ref Range | Performed | Pathologist | | | | | At | Signature | + + + + + + | Na | 139 | 136 - 145 | [facility] | | | | | mmol/L | [facility] | | | | | | [facility] | | | | | | [facility] - | | | | | | LABORATORY | | + + + + + + | K | 3.8 | 3.4 - 5.1 | [facility] | | | | | mmol/L | [facility] | | | | | | [facility] | | | | | | [facility] - | | | | | | LABORATORY | | + + + + + + | Cl | 109 (H) | 98 - 107 mmol/L | [facility] | | | | | | [facility] | | | | | | [facility] | | | | | | [facility] - | | | | | | LABORATORY | | + + + + + + | CO2 | 26 | 20 - 31 mmol/L | [facility] | | | | | | [facility] | | | | | | [facility] | | | | | | [facility] - | | | | | | LABORATORY | | + + + + + + | Anion Gap | 4 | 3 - 16 mmol/L | [facility] | | | | | | [facility] | | | | | | [facility] | | | | | [facility] - | | | | | | LAB[facility]ATORY | | + + + + + + | Glucose | 139 (H) | 60 - 106 mg/dL | [facility] | | | | | | [facility] | | | | | | [facility] | | | | | | [facility] - | | | | | | LAB[facility]ATORY | | + + + + + + | BUN | 9 | 9 - 23 mg/dL | [facility] | | | | | | [facility] | | | | | | [facility] | | | | | | [facility] - | | | | | | LAB[facility]ATORY | | + + + + + + | Creatinine | 0.93 | 0.55 - 1.02 | [facility] | | | | | mg/dL | [facility] | | | | | | [facility] - | | | | | | LAB[facility]ATORY | | + + + + + + | eGFR, | >60Comment: GLOMERULAR | >=60 | [facility] | | | non- | FILTRATION | mL/min/1.73m2 | [facility] | | | [place] | RATE,ESTIMATED | | MEDICAL | | | | mL/min/1.67k6Xxie than | | CENTER - | | [...] + + + + | Calcium | 9.8 | 8.7 - 10.4 | [facility] | | | | | mg/dL | [facility] | | | | | | [facility] | | | | | | [facility] - | | | | | | LABORATORY | | + + + + + + | Albumin | 4.6 | 3.2 - 4.8 g/dL | [facility] | | | | | | [facility] | | | | | | [facility] | | | | | | [facility] - | | | | | | LABORATORY | | + + + + + + | Bilirubin | 0.2 (L) | 0.3 - 1.2 mg/dL | [facility] | | | Total | | | [facility] | | | | | | [facility] | | | | | | [facility] - | | | | | | LABORATORY | | + + + + + + | Total | 7.2 | 5.7 - 8.2 g/dL | [facility] | | | Protein | | | [facility] | | | | | | [facility] | | | | | | [facility] - | | | | | | LABORATORY | | + + + + + + | AST | 18 | 0 - 34 U/L | [facility] | | | | | | [facility] | | | | | | [facility] | | | | | | [facility] - | | | | | | LABORATORY | | + + + + + + | ALT | 13 | 10 - 49 U/L | [facility] | | | | | | [facility] | | | | | | [facility] | | | | | | C[facility] - | | | | | | LABORATORY | | + + + + + + | Alkaline | 73 | 46 - 116 U/L | [facility] | | | Phosphatase | | | [facility] | | | | | | [facility] | | | | | | CENTER - | | | | | | LABORATORY | | + + + + + + | Globulin | 2.6 | 2.1 - 3.8 g/dL | [facility] | | | | | | [facility] | | | | | | [facility] | | | | | | [facility] - | | | | | | LABORATORY | | + + + + + + | Albumin/Yuli | 1.8 | 0.8 - 1.9 | [facility] | | | bulin Ratio | | | [facility] | | | | | | [facility]ICAL | | | | | | CENTER - | | | | | | LABORATORY | | + + + + + + | BUN/Creatin | 9.7 | | [facility] | | | ine Ratio | | | [facility] | | [...] ST. | [address] | [place], [place] | [phone] | | [facility] | | [address] | | | - LABORATORY | | | | + + + + + documented in this encounter Visit Diagnoses + + | Diagnosis | + + | Non-small cell cancer of right lung (HCC) - Primary | + + | Abnormal stress ECG with treadmill Other nonspecific abnormal cardiovascular system | | function study | + + | Malignant neoplasm of thyroid gland (HCC) Malignant neoplasm of thyroid gland | + + documented in this encounter
--- OUTSIDE RECORDS SUMMARY | ~2020-08-08 | XMS | Encounter Summary ---
Demographics + + + | Address | [address] | | | [place] [address] | + + + | Home Phone | | + + + | Preferred Language | Unknown | + + + | Marital Status | Single | + + + | Amish Affiliation | Unknown | + + + [...] Team Providers + +------+ + | Care Entertainment & Media Correspondent Name | Role | Phone | + +------+ + | Zuleyka Martínez | PCP | | + +------+ + Reason for Visit + +--------+ + | Reason | Onset | Comments | | | Date | | + +--------+ + | Neurosurgery | 01/25/ | | | Appointment | 2020 | | + +--------+ + Encounter Details +--------+ + + + + | Date | Type | Department | Care Team | Description | +--------+ + + + + | 01/25/ | Telephone | [facility] | Lemuel Da Silva DO | Neurosurgery | | 2020 | | NEUROSURGERY [address] | [address] | Appointment | | | | [address] | [address] | | | | | [place], [place] | [place] [address] | | | | | [address] | [phone] | | | | | [phone] | | | +--------+ + + + [...] this encounter Miscellaneous Notes Telephone Encounter - Nelsy Hatfield Medical Assistant - 01/26/2020 3:49 PM PDTSpoke wi th patient, scheduled for Sunday 01/28 elephone Encounter - Nelsy Hatfield Medical Assistant - 0 01/26/2020 3:45 PM PDT----- Message from Lemuel Da Silva DO sent at 01/26/2020 8:40 AM PDT -- --- Please schedule for next Wednesday. Lemuel Da Silva D.O Board Certified Neurosurgeon / Chief of Neurosurgery [facility] Office docum ented in this encounter Plan of Treatment +--------+ + + + + | Date | Type | Specialty | Care Team | Description | +--------+ + + + + | 08/12/ | Appointment | Oncology | Elmer Silva | | | 2019 | | | E, MD [address] | | | | | | [place] | | | | | | [address] | | | | | | | | +--------+ + + + + | 08/12/ | Hospital | Infusion Therapy | Elmer Silva | | | 2019 | Encounter | | E, MD [address] | | | | | | [place] | | | | | | [address] | | | | | | | | +--------+ + + + + | 08/12/ | Appointment | Oncology | Lionel Benson | | | 2019 | | | [address] Un[address] | | | | | | [facility] | | | | | | [place] [address] | | | | | | [phone] | | | | | | | | +--------+ + + + + | 08/19/ | Appointment | Oncology | Elmer Silva | | | 2019 | | | E, MD [address] | | | | | | [place], [place] | | | | | | [address] | | | | | | | | +--------+ + + + + | 08/19/ | Appointment | Infusion Therapy | Elmer Silva | | | 2019 | | | E, [address] | | | | | | [place], [place] | | | | | | [address] | | | | | | | [...] | | | | | [place] | | | | | | [address] | | | | | | | [...] [place] | | | | | | [id number] | | | | | | | [...] [place] | | | | | | [id number] | | | | | | | [...] [place] | | | | | | [id number] | | | | | | | | +--------+ + + + + documented as of this encounter Visit Diagnoses Not on filedocumented in this encounter"
--- OUTSIDE RECORDS SUMMARY | ~2020-08-08 | XMS | Encounter Summary ---
Demographics + + + | Address | [address] | | | [place] [address] | + + + | Home Phone [...] Team Providers + +------+ + | Care Civil Engineer Name | Role | Phone | + +------+ + | Zuleyka Martínez | PCP | | + +------+ + Reason for Visit + + + | Reason | Comments | + + + | Nutrition Counseling | | + + + Evaluate & Treat (Routine) +--------+ + + + + + | Status | Reason | Specialty | Diagnoses / | Referred By | Referred To | | | | | Procedures | Contact | Contact | +--------+ + + + + + | Closed | Specialty | Nutrition | Diagnoses | | [facility] | | | Services | | Non-small | Marie, | Nutrition | | | Required | | cell cancer | [place] | Services [address] | | | | | of right | MD Bebeto | [address] | | | | | lung (HCC) | [address] | [place], | | | | | | [place] | [place] [address] | | | | | | [place], [place] | Phone: | | | | | | [address] | [phone] | | | | | | Phone: | Fax: | | | | | | [phone] | [phone] | | | | | | Fax: | | | | | | | [phone] | | +--------+ + + + + + Encounter Details +--------+ + + + + | Date | Type | Department | Care Team | Description | +--------+ + + + + | 03/12/ | Hospital [facility] [place] Salazar | Non-small cell | | 2017 | Encounter | MED CTR NUTRITION | MD Bebeto [address] | cancer of right lung | | | | SERVICES [address] [place] | (HCC) (Primary Dx) | | | | [place], | [place] [address] | | | | | [place] [address] | [phone] | | | | | [phone] | | | | | | | Sonal Sheikh, | | | | | | RDN | | +--------+ + + + + [...] documented as of this encounter Progress Notes Sonal Sheikh RDN - 03/12/2017 2:58 PM PDTFormatting of this note might be different f rom the original. Medical Nutrition Note SUBJECTIVE: Pt states that she has lost ~8-10 pounds over the past year but nothing dramat ic. She is very worried about experiencing nausea again after chemo but is hopeful that sin ce her recipe is changed she will not have it as bad. She has to take thyroid medication on an empty stomach which just seems to aggravate the nausea. Discussed use of jose and pep permint oils on the skin, different ways to consume jose because she does not like jose lauren or jose tea. Discussed other foods that help with nausea as well as anti-inflammatory MNT. Provided a coupon for ACS cookbook as well. OBJECTIVE: Diet: anti-inflammatory Wt Readings from Last 3 Encounters: 03/12/17 85.775 kg (189 lb 1.6 oz) 03/01/17 83.7 kg (184 lb 8.4 oz) 02/19/17 84.505 kg (186 lb 4.8 oz) Ht Readings from Last 1 Encounters: 11/04/16 1.727 m (5' 8") BMI 28 Labs: Lab Results Component Value Date ALBUMIN 3.6 03/12/2017 Estimated needs (wt. 80kg) 3263-8663 kcals/day 80 gm pro/day Medications: reviewed ASSESSMENT/PLAN: Nutrition Diagnosis: Inadequate oral intake related to chronic illness of lung cancer with chemo resulting in nausea/vomiting as evidenced by verbalization from the pt, change is jeanine mo and documentation from her doctor. Interventions: 1. Anti-inflammatory MNT 2. Prevention of nausea education, coupon for ACS cookbook Nutrition Goals: 1. Maintain weight 2. Decrease n/v Monitor: 1. Nutritional parameters 2. F/u in the cancer center Time spent: 30 minutes Thank you for the referral, Sonal Sheikh RDN 03/12/2017 14:58 documented in this encounter Plan of Treatment +--------+ + + + + | Date | Type | Specialty | Care Team | Description | +--------+ + + + + | 08/12/ | Appointment | Oncology | Elmer iSlva | | | 2019 | | | E, [address] | | | | | | [place] | | | | | | [address] | | | | | | | | +--------+ + + + + | 08/12/ | Hospital | Infusion Therapy | Elmer Silva | | | 2019 | Encounter | | MD Trip [address] | | | | | | [place] | | | | | | [address] | | | | | | | | +--------+ + + + + | 08/12/ | Appointment | Oncology | Lionel Benson | | | 2019 | | | Ze Unger [address] | | | | | | [address] | | | | | | [place] [address] | | | | | | [phone] | | | | | | | | +--------+ + + + + | 08/19/ | Appointment | Oncology | Elmer Silva | | | 2019 | | | E, [address] | | | | | | [place] | | | | | | [address] | | | | | | | | +--------+ + + + + | 08/19/ | Appointment | Infusion Therapy | Elmer Silva | | | 2019 | | | E, [address] | | | | | | [place] | | | | | | [address] | | | | | | | [...] [place] | | | | | | [address] | | | | | | | | +--------+ + + + + | 09/09/ | Appointment | Infusion Therapy | | | | 2020 | | | | | +--------+ + + + + | 09/16/ | Office | Oncology | Elmer Silva | | | 2019 | Visit | | MD Lazaro [address] | | | | | | [place] | | | | | | [address] | | | | | | | | +--------+ + + + + | 09/16/ | Appointment | Infusion Therapy | | | | 2019 | | | | | +--------+ + + + + | 09/23/ | Office | Oncology | Elmer Silva | | | 2019 | Visit | | EMD [address] | | | | | | [place] | | | | | | [address] | | | | | | | [...] | | | | [place] | | | | | | [address] | | | | | | | | +--------+ + + + + + + +--------+ + + | Name | Type | Priori | Associated Diagnoses | Order Schedule | | | | ty | | | + + +--------+ + + | * [facility] | Outpatient | Routin | Non-small cell | Ordered: 01/26/2017 | | Services - AMB | Referral | e | cancer of right lung | | | Referral | | | (HCC) | | + + +--------+ + + documented as of this encounter Visit Diagnoses + + | Diagnosis | + + | Non-small cell cancer of right lung (HCC) - Primary | + + documented in this encounter
--- OUTSIDE RECORDS SUMMARY | ~2020-08-08 | XMS | Encounter Summary ---
Demographics + + + | Address | [address] | | | [place] [address] | + + + | Home Phone [...] Team Providers + +------+ + | Care Nub Card Tender Name | Role | Phone | + [...] Ct [address] | | | | | Primary | Susie M, | [address] | | | | | malignant | MD [address] | [place], | | | | | neoplasm of | [address] | [place] [address] | | | | | female | [place], | Phone: | | | | | breast (HCC) | [place] [address] | [phone] | | | | | Procedures | Phone: | Fax: | | | | | [place] | [phone] | [phone] | | | | | Treatment | Fax: | | | | | | Plan Complex | [phone] | | +--------+--------+ + + + + Reason for Visit Diagnostic/Screening (Routine) +--------+--------+ + + + + | Status | Reason | Specialty | Diagnoses / | Referred By | Referred To | | | | | Procedures | Contact | Contact | +--------+--------+ + + + + | Closed | | Radiology | Diagnoses | Riegert, | [facility] [address] | | | | | Primary | Susie M, | [address] | | | | | malignant | [address] | [place], | | | | | neoplasm of | [address] | [place] [address] | | | | | female | [place], | Phone: | | | | | breast (HCC) | [place] [address] | [phone] | | | | | Procedures | Phone: | Fax: | | | | | [place] | [phone] | [phone] | | | | | Treatment | Fax: | | | | | | Plan Complex | [phone] | | +--------+--------+ + + + + Encounter Details +--------+ + + + + | Date | Type | Department | Care Team | Description | +--------+ + + + + | 08/29/ | Hospital | [facility] | Susie Montemayor | Primary malignant | | 2019 | Encounter | MED CTR [address] | M, [address] | neoplasm of female | | | | [address], | ST [place], [place] | breast (HCC) | | | | [place] [address] | [address] | | | | | [phone] | | | +--------+ + + + [...] [place] | | | | | | [address] | | | | | | | | +--------+ + + + + | 08/12/ | Hospital | Infusion Therapy | Elmer Silva | | 2019 | Encounter | | MD Lazaro [address] | | | | | | [place] | | | | | | [address] | | | | | | | | +--------+ + + + + | 08/12/ | Appointment | Oncology | Lionel Benson | | | 2019 | | | JZe [address] | | | | | | [address] [place] | | | | | | [place] [address] | | | | | | [phone] | | | | | | | | +--------+ + + + + | 08/19/ | Appointment | Oncology | Elmer Silva | | | 2019 | | | MD [address] | | | | | | [place], [place] | | | | | | [address] | | | | | | | | +--------+ + + + + | 08/19/ | Appointment | Infusion Therapy | Elmer Silva | | | 2019 | | | E, [address] | | | | | | [place], [place] | | | | | | [address] | | | | | | | [...] | 2019 | Visit | | MD Trip [address] | | | | | | [place] | | | | | | [address] | | | | | | | [...] [place] | | | | | | [address] | | | | | | | [...] [place] | | | | | | [address] | | | | | | | [...] [place] | | | | | | [address] | | | | | | | | +--------+ + + + + documented as of this encounter Procedures + +--------+ + + + | Procedure Name | Priori | Date/Time | Associated Diagnosis | Comments | | | ty | | | | + +--------+ + + + | CT TREATMENT PLAN | Routin | 08/29/2019 | Primary malignant | Results for this | | COMPLEX | e | 4:27 PM | neoplasm of female | procedure are in the | | | | PDT | breast (HCC) | results section. | + +--------+ + + + documented in this encounter Results CT Treatment Plan Complex (08/29/2019 4:27 PM PDT) + + | Specimen | + + | | + + + + + | Narrative | Performed At | + + + | This exam has been auto-finalized and the interpretation may exist | [facility] | | elsewhere in the chart. | | + + [...] Primary malignant neoplasm of female breast (HCC) | + + documented in this encounter"
--- OUTSIDE RECORDS SUMMARY | ~2020-08-08 | XMS | Encounter Summary ---
Demographics + + + | Address | [address] | | | [place] [address] | + + + | Home Phone [...] Author + + + | Author | [facility] | | | and [place] | + + + | Organization | [facility] | | | [...] Team Providers + +------+ + | Care Oil Dispatcher Name | Role | Phone | + [...] of right | MD Bebeto | [address] | | | | | lung (HCC) | [address] | [place], | | | | | | [place] | [place] [address] | | | | | | [place], [place] | Phone: | | | | | | [address] | [phone] | | | | | | Phone: | Fax: | | | | | | [phone] | [phone] | | | | | | Fax: | | | | | | | [phone] | | +--------+ + + + + + Reason for Visit + +--------+ + | Reason | Onset | Comments | | | Date | | + +--------+ + | IDT Note | 01/26/ | | | | 2016 | | + +--------+ + Encounter Details +--------+ + + + + | Date | Type | Department | Care Team | Description | +--------+ + + + + | 01/26/ | Telephone | [facility] | Natividad Mendoza, | IDT Note | | 2016 | | MED CTR CHEMO | RN | | | | | INFUSION [address] | | | | | | [place], | | | | | | [place] [address] | | | | | | [phone] | | | +--------+ + + + [...] documented as of this encounter Progress Notes Jodi Delgadillo, [facility] - 01/27/2017 10:23 AM PDTFormatting of this note might be different fro m the original. IDT PATIENT MEDICATION/PROFILE REVIEW [facility] Pharmacy Recommendation _XX___ Observation only- 1) Will area counselor patient to hold IBU x 2 days prior and 2 days afte r treatment dates 2) and to use caution with FORM STRIPPER depression around treatment dates, consider holding home-med alprazolam while using lorazepam (see drug interactions) Pharmacy Assessment Therapy emetogenicity risk vs. supportive meds ordered: high/appropriate Drug interactions of concern: 1) ibuprofen + pemetrexed= risk of pemetrexed renal toxicity. Avoid NSAID use for 2 days prior and 2 days after treatment dates. 2) alprazolam + lorazep am + tramadol +oxycodone + zolpidem = risk for excessive sedation and FORM STRIPPER depression, can be enhanced with fosaprepitant interaction. Use agents with caution around treatment dates. 3) oxycodone + ondansetron + tramadol = increased risk of serotonin syndrome, however has been taking these together already. Allergy/Duplicate/Contraindications/Other: none Lab-based dose adjustments suggested: none VTE Risk Factors Identified: Site of primary cancer High risk (lung) (1pt) Prechemotherapy leukocyte count higher than 11K (1pt). _XX_Khorana risk score= 1-2 (risk of symptomatic VTE 1.8-8.4%): Consider periodically re-as sessing risk for VTE. Cardiac toxicity risks/recommended monitoring: none Objective Data Olena Rider is a 56 y.o. female , Wt 88.7 kg, Ht 172.7 cm, BSA 2.06 m2, BMI 29. 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 2013 (TREAT) Randomized Phase II Cisplatin & Vinorelbine Seems not superi or (*) Treatment to begin within 4 to 6 weeks after complete resection of pathologically confirmed NSCLC stages (according to the TNM staging system version 6) IB, IIA, IIB or T3N1. *Efficac y based on updated results. Chemotherapy Cisplatin (Platinol) 75 mg/m2 IV once on day 1 Pemetrexed (Alimta) 500 mg/m2 IV once on day 1 21-day cycle for 4 cycles Chemotherapy/Supportive therapy: Pemetrexed Cisplatin Ondansetron Dexamethasone fosaprepitant Lorazepam Cyanocobalamin Folic acid Pertinent Medical History: has a past medical history of Insomnia; Anxiety; Malignant neop lasm of thyroid gland (HCC); and PONV (postoperative nausea and vomiting). Other pertinent objective data: EGFR mutation neg, KRAS neg, ALK/ROS-1 rearrangement neg, P D-L1 3% Current Medications: Current Outpatient Prescriptions on File Prior to Visit Medication Sig Dispense Refill ALPRAZolam (XANAX) 0.5 mg tablet Take 0.5 mg by mouth 3 times daily as needed for Anxie ty. calcium carbonate (TUMS) 500 mg chewable tablet Take 2 tablets by mouth Daily. Cephalexin (KEFLEX PO) Take by mouth. ibuprofen (ADVIL, MOTRIN) 200 mg tablet Take 200 mg by mouth every 6 hours as needed fo r Pain. levothyroxine (SYNTHROID, LEVOTHROID) 150 mcg tablet Take 150 mcg by mouth every mornin g (before breakfast). ondansetron (ZOFRAN ODT) 4 mg disintegrating tablet Take 4 mg by mouth every 8 hours as needed for Nausea. oxyCODONE (ROXICODONE) 5 mg tablet Take 1 tablet by mouth every 4 hours as needed for P ain. 15 tablet 0 traMADol (ULTRAM) 50 mg tablet Take 50 mg by mouth every 6 hours as needed for Pain. zolpidem (AMBIEN) 10 mg tablet Take 10 mg by mouth nightly as needed for Sleep. No current facility-administered medications on file prior to visit. Pertinent Baseline Labs: WBC Date Value Ref Range Status 11/04/2016 12.1* 4.0-11.0 K/uL Final ABSOLUTE NEUTROPHILS Date Value Ref Range Status 06/02/2016 4.00 1.80-8.50 K/uL Final PLATELET COUNT Date Value Ref Range Status 11/04/2016 270 140-440 K/uL Final HGB Date Value Ref Range Status 11/04/2016 14.6 11.5-16.0 g/dL Final HCT Date Value Ref Range Status 11/04/2016 43.7 34.0-47.0 % Final CREATININE, SERUM/PLASMA Date Value Ref Range Status 11/06/2016 0.92 0.60-1.30 mg/dL Final INR Date Value Ref Range Status 11/04/2016 0.96 0.90-1.10 Final Comment: Usual Oral Anticoagulation Range: 2.0 - 3.0 High Level Oral Anticoagulation Range: 2.5 - 3.5 Electronically signed by: Jodi Delgadillo RPH 01/27/2017 10:23 documented in this en counter Miscellaneous Notes Addendum Note - Catherine Payne RN - 01/26/2017 4:10 PM PDT Addended by: LIDA FARIAS on: 01/26/2017 16:10 Modules accepted: Orders elephone Encoun Natividad Ross RN - 01/26/2017 3:05 PM PDTFormatting of this note might be differen t from the original. [facility] Interdisciplinary Team Navigational Checklist ? Top Priority Discipline EPIC Order Entered Consult Scheduled Consult Complete Comments: x *Medical Oncology Dr. Salazar *Radiation Oncology x *Patient Navigation x *Nurse Navigator x *Social Service Survivorship Nurse Breast Health Genetics Surgical Input x *Nursing assessment Cisplatin and Alimta x *Pharmacy assessment dlb 01/27/17 1) Will area counselor patient to hold IBU x 2 days prior and 2 days after treatment dates 2) and to use caution with FORM STRIPPER depression around treatment date s, consider holding home-med alprazolam while using lorazepam x Nutrition 01/26/17--JT x Rehab: PT OT Speech & Language Palliative Care Clinical Trials Involvement Web Ui Software Engineer Visit Financial Assistance Interdisciplinary Consults Completed Date: documented in this en counter Plan of Treatment +--------+ + + + + | Date | Type | Specialty | Care Team | Description | +--------+ + + + + | 08/12/ | Appointment | Oncology | Elmer Silva | | | 2019 | | | MD Lazaro Dominique | | | | | | [place] | | | | | | [address] | | | | | | | | +--------+ + + + + | 08/12/ | Hospital | Infusion Therapy | Elmer Silva | | | 2019 | Encounter | | MD [address]azaro [address] | | | | | | [place] | | | | | | [address] | | | | | | | | +--------+ + + + + | 08/12/ | Appointment | Oncology | Lionel Benson | | | 2019 | | | J, Ze [address] | | | | | | [address] [place] | | | | | | [place] [address] | | | | | | [phone] | | | | | | | | +--------+ + + + + | 08/19/ | Appointment | Oncology | Elmer Silva | | | 2019 | | | MD [address]azaro [address] | | | | | | [place] | | | | | | [address] | | | | | | | | +--------+ + + + + | 08/19/ | Appointment | Infusion Therapy | Elmer Silva | | | 2019 | | | E, [address] | | | | | | [place], [place] | | | | | | [address] | | | | | | | [...] [place] | | | | | | [address] | | | | | | | [...] [place] | | | | | | [address] | | | | | | | [...] [place] | | | | | | [address] | | | | | | | [...] [place] | | | | | | [id number] | | | | | | | [...]
--- OUTSIDE RECORDS SUMMARY | ~2020-08-08 | XMS | Encounter Summary ---
Demographics + + + | Address | [address] | | | [place] [address] | + + + | Home Phone [...] + + + | Author | [facility] | | | and [place] | + + + | Organization | [facility] | | | [...] Team Providers + +------+ + | Care Fur Matcher Name | Role | Phone | + [...] Closed | | Infusion | Diagnoses | Riegert, | [facility] | | | | Therapy | Malignant | Susie M, | Infusion [address] | | | | | neoplasm of | MD [address] | | | | | thyroid | [address] | [place], | | | | | gland (HCC) | [place], | [place] [address] | | | | | Procedures | [place] [address] | Phone: | | | | | [place] | Phone: | [phone] | | | | | INJECTION, | [phone] | Fax: | | | | | THYROTROPIN | Fax: | [phone] | | | | | ALPHA, 0. 9 | [phone] | | | | | | MG, PROVIDED | | | | | | | IN 1. 1 MG | | | | | | | VIAL | | | +--------+--------+ + + + + Encounter Details +--------+ + + + + | Date | Type | Department | Care Team | Description | +--------+ + + + + | 10/13/ | Hospital | [facility] | Susie Montemayor | Malignant neoplasm | | 2016 | Encounter | [facility] CHE[facility] | MD Jared [address] | of thyroid gland | | | | INFUSION [address] [place], [place] | (HCC) | | | | [place], | [address] | | | | | [place] [address] | | | | | | [phone] | | | +--------+ + + + [...] + + + | Blood Pressure | 118/79 | 10/13/2016 8:45 AM | | | | | PST | | + + + + + | Pulse | 69 | 10/13/2016 8:45 AM | | | | | PST | | + + + + + | Temperature | 35.9 C (96.6 F) | 10/13/2016 8:45 AM | | | | | PST | | + + + + + | Respiratory Rate | 16 | 10/13/2016 8:45 AM | | | | | PST | | + + + + + | Oxygen Saturation | 100% | 10/13/2016 8:45 AM | | | | | PST | | + + + + + | Inhaled Oxygen | - | - | | | Concentration | | | | + + + + + | Weight | - | - | | + + + + + | Height | - | - | | + + + + + | Body Mass Index | - | - | | + + + + + documented in this encounter Medications at Time [...] documented as of this encounter Progress Notes Catherine Payne RN - 10/13/2016 8:45 AM PSTHere for rn check and thyrogen injection. D tramaine well. Energy fair. Denies pain, n/v or sob. Bowels and bladder ok. Denies questions or concerns documented in this encounter Plan of Treatment +--------+ + + + + | Date | Type | Specialty | Care Team | Description | +--------+ + + + + | 08/12/ | Appointment | Oncology | Elmer Silva | | | 2019 | | | E, [address] | | | | | | [place] | | | | | | [address] | | | | | | | | +--------+ + + + + | 08/12/ | Hospital | Infusion Therapy | Elmer Silva | | | 2019 | Encounter | | E, [address] | | | | | | [place] | | | | | | [address] | | | | | | | | +--------+ + + + + | 08/12/ | Appointment | Oncology | Lionel Benson | | 2019 | | | JZe [address] | | | | | | [address] [facility] | | | | | | [place] [address] | | | | | | [phone] | | | | | | | | +--------+ + + + + | 08/19/ | Appointment | Oncology | Elmer Silva | | | 2019 | | | E, [address] | | | | | | [place], [place] | | | | | | [address] | | | | | | | | +--------+ + + + + | 08/19/ | Appointment | Infusion Therapy | Elmer Silva | | | 2019 | | | E, [address] | | | | | | [place], [place] | | | | | | [address] | | | | | | | [...] [place] | | | | | | [address] | | | | | | | [...] [place] | | | | | | [address] | | | | | | | | +--------+ + + + + | 09/16/ | Appointment | Infusion Therapy | | | | 2019 | | | | | +--------+ + + + + | 09/23/ | Office | Oncology | Elmer Silva | | | 2019 | Visit | | E, [address] | | | | | | [place] | | | | | | [address] | | | | | | | [...] | | | | | | [place] [facility] [place] | | | | | | [address] | | | | | | | | +--------+ + + + + documented as of this encounter Visit Diagnoses + + | Diagnosis | + + | Malignant neoplasm of thyroid gland (HCC) Malignant neoplasm of thyroid gland | + + documented in this encounter Administered Medications + +--------+ +--------+------+ + | Medication Order | MAR | Action | Dose | Rate | Site | | | Action | Date | | | | + +--------+ +--------+------+ + | thyrotropin samina (THYROGEN) | Given | 10/13/20 | 0.9 mg | | Ventrogl | | injection 0.9 mg 0.9 mg, | | 16 8:49 | | | uteal-Ri | | Intramuscular, ONCE, 10/13/16 | | AM PST | | | ght | | at 0815, For 1 dose, Keep in | | | | | | | refrigerator. Mix with 1.2 mL | | | | | | | sterile water to make 0.9 mg/mL. | | | | | | | Use filter needle., | | | | | | + +--------+ +--------+------+ + +---+---+ | | | +---+---+ documented in this encounter"
--- OUTSIDE RECORDS SUMMARY | ~2020-08-08 | XMS | Encounter Summary ---
Demographics + + + | Address | [address] | | | [place] [address] | + + + | Home Phone | | + + + | Preferred Language | Unknown | + + + | Marital Status | Single | + + + | Sikh Affiliation | Unknown | + + + [...] Providers + +------+ + | Care Ornamental Brick Installer Name | Role | Phone | + [...] | +--------+ + + + + | 07/25/ | Hospital | [facility] | Susie Montemayor | Secondary | | 2020 | Encounter | MED CTR RADIATION | MD Jared [address] | adenocarcinoma of | | | | ONCOLOGY CLINIC [address] | [place], [place] | brain (HCC) (Primary | | | | [address] | [id number] | Dx) | | | | [place] [address] | | | | | | [phone] | | | +--------+ + + + [...] + + + | Blood Pressure | 166/94 | 07/25/2020 10:00 AM | | | | | PDT | | + + + + + | Pulse | 91 | 07/25/2020 10:00 AM | | | | | PDT | | + + + + + | Temperature | 36.5 C (97.7 F) | 07/25/2020 10:00 AM | | | | | PDT | | + + + + + | Respiratory Rate | 16 | 07/25/2020 10:00 AM | | | | | PDT | | + + + + + | Oxygen Saturation | 100% | 07/25/2020 10:00 AM | | | | | PDT | | + + + + + | Inhaled Oxygen | - | - | | | Concentration | | | | + + + + + | Weight | 82.6 kg (182 lb 1.6 | 07/25/2020 10:00 AM | | | | oz) | PDT | | + + + + + | Height | - | - | | + + + + + | Body Mass Index | 27.29 | 02/27/2020 6:30 AM | | | [...] dexamethasone | Take 1 tablet by | 60 | 0 | 07/19/20 | | | (DECADRON) 4 mg | mouth 4 times daily | tablet | | 20 | | | tablet | (with meals and | | | | | | | nightly). | | | | | + + [...] + + + +---------+ + + | memantine | Take 1 tablet by | 120 | 5 | 07/23/20 | | | (NAMENDA) 5 mg | mouth Daily for 7 | tablet | | 20 | 1 | | tablet | days, THEN 2 tablets | | | | | | | Daily for 7 days, | | | | | | | THEN 3 tablets Daily | | | | | | | for 7 days, THEN 4 | | | | | | | tablets Daily for 99 | | | | | | | days. | | | | | + [...] documented as of this encounter Progress Notes Azucena Ritchie RN - 07/25/2020 10:30 AM PDTMet with patient today for nurse education. Ve rbal and written education given to patient regarding general radiation therapy side effects as well as site specific side effects. Electronically signed by Azucena Ritchie RN at 07/25 10:31 AM Susie Mcgill MD - 07/25/2020 10:30 AM PDTFormatting of this note mi ght be different from the original. Radiation Oncology Weekly On Treatment Note Diagnosis: ICD-10-CM ICD-9-CM 1. 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 Corre ctions were applied as necessary. Allergies Allergen Reactions Morphine Anaphylaxis and Other (See Comments) Patient states she has had no issues with Dilaudid or oxycodone. Adhesive & Tape Rash Skin breakdown Metal [Nickel] Rash Skin breakdown Morphine And Related Other (See Comments) "unknown reaction - trouble breathing after hysterectomy" Current Outpatient Medications on File Prior to Encounter Medication Sig Dispense Refill acetaminophen (TYLENOL) 500 [...] times daily as needed for Muscle spasms. dexamethasone (DECADRON) 4 mg tablet Take 1 tablet by mouth 4 times daily (with meals a nd nightly). (Patient taking differently: Take 4 mg by mouth 2 times daily (with breakfast & dinner) .) 60 tablet 0 DULoxetine (CYMBALTA) [address] capsule Take 30 mg by mouth 2 times daily. gabapentin (NEURONTIN) 300 mg capsule 1 tab at bed time for 1 day, then 1 tab twice a d ay for 1 day then 1 tab three times a day.. (Patient taking differently: 300 mg 3 times bunny y .) 90 capsule 2 ibuprofen (ADVIL, MOTRIN) 200 mg tablet Take 200 mg by mouth every 6 hours as needed fo r Pain. levothyroxine (SYNTHROID) 125 mcg tablet Take 125 mcg by mouth every morning (before br eakfast). memantine (NAMENDA) 5 mg tablet Take 1 tablet by mouth Daily for 7 days, THEN 2 tablets Daily for 7 days, THEN 3 tablets Daily for 7 days, THEN 4 tablets Daily for 99 days. (Patie nt not taking: Reported on 07/25/2020) 120 tablet 5 Multiple Vitamins-Minerals (MULTIVITAMIN ADULT) TABS Take 1 tablet by mouth Daily. omeprazole (PRILOSEC) 20 mg capsule Take 20 mg by mouth every morning (before breakfast ). ondansetron (ZOFRAN ODT) 4 mg disintegrating tablet Take 4 mg by mouth every 8 hours as needed for Nausea. oxyCODONE (ROXICODONE) 5 mg tablet Take 1 tablet by mouth every 6 hours as needed For p ain. 90 tablet 0 traMADol (ULTRAM) 50 mg tablet Take 50-100 mg by mouth 4 times daily as needed for Pain . zolpidem (AMBIEN) 10 mg tablet Take 10 mg by mouth nightly. No current facility-administered medications on file prior to encounter. Pain assessment: Location: right arm, headache Pain Level: PAIN PROG PAIN LEVEL: 8 Pain Quality: Constant, Sharp Current pain regimen: gabapentin, oxycodone, tylenol and ibuprofen Wt Readings from Last 3 Encounters: 07/25/20 82.6 kg (182 lb 1.6 oz) 07/19/20 84.5 kg (186 lb 4.6 oz) 07/16/20 84.6 kg (186 lb 8.2 oz) Vitals: 07/25/20 1000 BP: (!) 166/94 Pulse: 91 Resp: 16 Temp: 36.5 C (97.7 F) SpO2: 100% Weight: 82.6 kg (182 lb 1.6 oz) Physical Exam Constitutional: She appears well-developed and well-nourished. Neurological: She is alert. A cranial nerve deficit (Rt facial weakness. ) is present. Skin: No rash noted. No erythema. Psychiatric: She has a normal mood and affect. Nurse Assessment and Toxicity Grading: Toxicity Flowsheet 07/25/2020 Diarrhea 0 - Grade 0 Nausea 1 - Grade 1 Vomiting 0 - Grade 0 Fatigue 2 - Grade 2 Anorexia 1 - Grade 1 Cough - Palmar-Plantar Erythrodysesthesia Syndrome - Rash Acneiform - Rash Maculo-Papular - Karnofsky Performance Score 70% Physician Assessment: 07/25/2020: Olena Tolerating treatment with no worsening of pain or neurologic symptoms however no significant improvement either. No significant benefit of dexamethasone. Reques kelley she decrease this to 4 mg twice a day earlier this week, she may now further decrease th e dose to 4 mg once daily. Gabapentin may be of moderate benefit, I advised she increase th e dose to 600 mg 3 times a day, ramping up the dose over the next week. She is still waitin g for insurance authorization to begin memantine. She has met with Dr. Silva and plans to initiate chemotherapy, anticipating pemetrexed a nd carboplatin with pembrolizumab. Disposition: Continue radiation treatment as planned. Follow-up with Dr. Silva after completion of radiation to begin systemic therapy. Continue to taper off dexamethasone over the next 1-2 weeks. Increase gabapentin as noted above. Continue oxycodone as needed, up to 5 mg every 6 hours for pain management. Susie Montemayor MD Radiation Oncologist documented in [...] [place] | | | | | | [address] | | | | | | | | +--------+ + + + + | 08/12/ | Hospital | Infusion Therapy | Elmer Silva | | 2019 | Encounter | | MD [address] | | | | | | [place] | | | | | | [address] | | | | | | | | +--------+ + + + + | 08/12/ | Appointment | Oncology | Lionel Benson | | | 2019 | | | [address] | | | | | | [address] [place] | | | | | | [place] [address] | | | | | | [phone] | | | | | | | | +--------+ + + + + | 08/19/ | Appointment | Oncology | Elmer Silva | | 2019 | | | Trip, [address] | | | | | | [place] | | | | | | [address] | | | | | | | | +--------+ + + + + | 08/19/ | Appointment | Infusion Therapy | Elmer Silva | | | 2019 | | | E, [address] | | | | | | ST [place], [place] | | | | | | [address] | | | | | | | [...] [place] | | | | | | [address] | | | | | | | [...] [place] | | | | | | [address] | | | | | | | [...] [place] | | | | | | [address] | | | | | | | [...] | | | | | | ST [place], [place] | | | | | | [address] | | | | | | | | +--------+ + + + + documented as of this encounter Visit Diagnoses + + | Diagnosis | + + | 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
--- OUTSIDE RECORDS SUMMARY | ~2020-08-08 | XMS | Encounter Summary ---
Demographics + + + | Address | [address] | | | [place] [address] | + + + | Home Phone [...] Author + + + | Author | [facility] | | | and [place] | + + + | Organization | [facility] | | [...] Team Providers + +------+ + | Care Verifying Specialist Name | Role | Phone | + +------+ + | Zuleyka Martínez | PCP | | + +------+ + Encounter Details +--------+ + + + + | Date | Type | Department | Care Team | Description | +--------+ + + + + | 03/22/ | Documentati | [facility] | Susie Montemayor | | | 2020 | on | MED CTR RADIATION | MD Jared [address] | | | | | ONCOLOGY CLINIC [address] | [place], [place] | | | | | [place] | [address] | | | | | [place] [address] | | | | | | [phone] | | | +--------+ + + + [...] [place] | | | | | | [address] | | | | | | | | +--------+ + + + + | 08/12/ | Hospital | Infusion Therapy | Elmer Silva | | | 2019 | Encounter | | MD [address] | | | | | | [place] | | | | | | [address] | | | | | | | | +--------+ + + + + | 08/12/ | Appointment | Oncology | Lionel Benson | | 2019 | | | [address] | | | | | | [address] [place] | | | | | | [place] [address] | | | | | | [phone] | | | | | | | | +--------+ + + + + | 08/19/ | Appointment | Oncology | Elmer Silva | | | 2019 | | | E, [address] | | | | | | ST [place], [place] | | | | | | [address] | | | | | | | | +--------+ + + + + | 08/19/ | Appointment | Infusion Therapy | Elmer Silva | | | 2019 | | | E, [address] | | | | | | ST [place], [place] | | | | | | [address] | | | | | | | [...] [place] | | | | | | [address] | | | | | | | [...] [place] | | | | | | [address] | | | | | | | | +--------+ + + + + | 09/16/ | Appointment | Infusion Therapy | | | | 2019 | | | | | +--------+ + + + + | 09/23/ | Office | Oncology | Elmer Silva | | | 2019 | Visit | | [address] | | | | | | [place] | | | | | | [address] | | | | | | | [...] [place] | | | | | | [address] | | | | | | | | +--------+ + + + + documented as of this encounter Visit Diagnoses Not on filedocumented in this encounter"
--- OUTSIDE RECORDS SUMMARY | ~2020-08-08 | XMS | Encounter Summary ---
Demographics + + + | Address | [address] | | | [place] [address] | + + + | Home Phone [...] + | Author | [facility] | | | and [place] | + + + | Organization | [facility] | | | and [...] Team Providers + +------+ + | Care Manager Flight Operations Name | Role | Phone | + +------+ + | Zuleyka Martínez | PCP | | + +------+ + Reason for Visit +--------+--------+ + | Reason | Onset | Comments | | | Date | | +--------+--------+ + | Other | 02/13/ | | | | 2020 | | +--------+--------+ + Encounter Details +--------+ + + + + | Date | Type | Department | Care Team | Description | +--------+ + + + + | 02/13/ | Telephone | [facility] | Susie Montemayor | Other | | 2020 | | MED CTR RADIATION | MD Jared [address] | | | | | ONCOLOGY CLINIC [address] | [place], [place] | | | | | [facility] | [address] | | | | | [place] [address] | | | | | | [phone] | | | +--------+ + + + [...] Telephone Encounter - Serenity Dunn RN - 02/14/2020 1:07 PM PDTMichelle return my seth l, I relayed Dr. Montemayor's message and she verbalizes understanding. elephone Encounter - Abby Rodriguez R N - 02/14/2020 1:02 PM PDT----- Message from Abby Rodriguez RN sent at 02/14/2020 12:44 PM PDT ----- Patient has been called (by Serenity and Emely) voice message left requesting a call back. ----- Message ----- From: Susie Montemayor MD Sent: 02/14/2020 12:15 PM PDT To: [facility] Rad Onc Clinical Staff Please notify Olena Yaneli Rider that I have spoken with Dr. Da Silva and he has agreed to pr oceed with biopsy. She should be hearing from his office shortly to schedule. Susie Montemayor MD documented in this encounter Plan of Treatment [...] [place] | | | | | | [address] | | | | | | | | +--------+ + + + + | 08/12/ | Hospital | Infusion Therapy | Elmer Silva | | | 2019 | Encounter | | E, [address] | | | | | | ST [place] | | | | | | [address] | | | | | | | | +--------+ + + + + | 08/12/ | Appointment | Oncology | Lionel Benson | | | 2019 | | | [address] | | | | | | [address] [place] | | | | | | [place] [address] | | | | | | [phone] | | | | | | | | +--------+ + + + + | 10/19/ | Appointment | Oncology | Elmer Silva | | | 2019 | | | E, [address] | | | | | | ST [place], [place] | | | | | | [address] | | | | | | | | +--------+ + + + + | 08/19/ | Appointment | Infusion Therapy | Elmer Silva | | | 2019 | | | E, [address] | | | | | | ST [place], [place] | | | | | | [address] | | | | | | | [...] [place] | | | | | | [address] | | | | | | | | +--------+ + + + + | 09/09/ | Appointment | Infusion Therapy | | | | 2019 | | | | | +--------+ + + + + | 09/16/ | Office | Oncology | Elmer Silva | | | 2019 | Visit | | Trip, [address] | | | | | | [place] | | | | | | [address] | | | | | | | [...] [place] | | | | | | [address] | | | | | | | [...] [place] | | | | | | [address] | | | | | | | | +--------+ + + + + documented as of this encounter Visit Diagnoses Not on filedocumented in this encounter"
--- OUTSIDE RECORDS SUMMARY | ~2020-08-08 | XMS | Encounter Summary ---
Demographics + + + | Address | [address] | | | [place] [address] | + + + | Home Phone | | + + + | Preferred Language | Unknown | + + + | Marital Status | Single | + + + | Zoroastrianism Affiliation | Unknown | + + + | Race | White | + + + | Ethnic Group | Not or | + + + Author + + + | Author | [facility] | | | and [place] | + + + | Organization | [facility] | | [...] Team Providers + +------+ + | Care Continuity Reader Name | Role | Phone | + +------+ + | Zuleyka Martínez | PCP | | + +------+ + Encounter Details +--------+ + + + + | Date | Type | Department | Care Team | Description | +--------+ + + + + | 07/03/ | Hospital | [facility] | Conversion | Pain | | 2016 | Encounter | CONVERSION [address] | Transaction, | | | | | [address] | Provider Unknown | | | | | [place], [place] | [phone] | | | | | [address] | | | | | | [phone] | | | +--------+ + + + [...] + + + +---------+ + + | indomethacin | Take 1-2 capsules by | 50 | 0 | 06/02/20 | | | (INDOCIN) 25 mg | mouth 3 times daily | capsule | | 16 | 6 | | capsule | as needed. Take | | | | | | | with food | | | | | + + [...] [place] | | | | | | [address] | | | | | | | | +--------+ + + + + | 08/12/ | Hospital | Infusion Therapy | Elmer Silva | | | 2019 | Encounter | | MD [address] | | | | | | [place] | | | | | | [address] | | | | | | | | +--------+ + + + + | 08/12/ | Appointment | Oncology | Lionel Benson | | 2019 | | | [address] | | | | | | [address] | | | | | | [place] [address] | | | | | | [phone] | | | | | | | | +--------+ + + + + | 08/19/ | Appointment | Oncology | Elmer Silva | | | 2019 | | | E, [address] | | | | | | [place] | | | | | | [address] | | | | | | | [...] [place] | | | | | | [address] | | | | | | | [...] [place] | | | | | | [address] | | | | | | | [...] [place] | | | | | | [address] | | | | | | | [...] [place] | | | | | | [address] | | | | | | | | +--------+ + + + + documented as of this encounter Procedures + +--------+ + + + | Procedure Name | Priori | Date/Time | Associated Diagnosis | Comments | | | ty | | | | + +--------+ + + + | CT CHEST ABDOMEN | Routin | 01/02/2016 | | Results for this | | PELVIS W CONTRAST | e | 12:13 AM | | procedure are in the | | | | PST | | results section. | + +--------+ + + + documented in this encounter Results CT Chest Abdomen Pelvis w Contrast (01/02/2016 12:13 AM PST) + + | Specimen | + + | | + + + + + | Narrative | Performed At | + + + | This is a non-reportable procedure without a radiologist report and | | | is used for image storage only | | + + + + + | Procedure Note | + + | Andrea White Sabas - 06/15/2019 8:45 PM PDT This is a non-reportable procedure | | without a radiologist report and isused for image storage only | + + documented in this encounter Visit Diagnoses + + | Diagnosis | + + | Pain Generalized pain | + + documented in this encounter"
--- OUTSIDE RECORDS SUMMARY | ~2020-08-08 | XMS | Encounter Summary ---
Demographics + + + | Address | [address] | | | [place] [address] | + + + | Home Phone [...] Team Providers + +------+ + | Care Laundry Or Dry Cleaners Counter Clerk Name | Role | Phone | + +------+ + | Zuleyka Martínez | PCP | | + +------+ + Reason for Visit +--------+--------+ + | Reason | Onset | Comments | | | Date | | +--------+--------+ + | Other | 03/13/ | | | | 2020 | | +--------+--------+ + Encounter Details +--------+ + + + + | Date | Type | Department | Care Team | Description | +--------+ + + + + | 03/13/ | Telephone | [facility] | Susie Montemayor | Other | | 2020 | | MED CTR MEDICAL | MD Jared [address] | | | | | ONCOLOGY CLINIC [address] | [place], [place] | | | | | [facility] | [address] | | | | | [place] [address] | | | | | | [phone] | | | +--------+ + + + [...] Telephone Encounter - Abby Rodriguez RN - 03/14/2020 1:44 PM PDTPatient here in offic e, picked up requested paper work. elephone Encounter - Azucena Ritchie RN - 03/13/2020 4:49 PM PDTPatient no tified paperwork is ready, she will pick this up tomorrow. [facility]helle signed by Azucena Ritchie RN at 03/13/2020 4:49 PM PDTTelephone Encounter - Lianne Dunn RN - 03/13/2020 1:04 PM PDTJolene previously received paperwork from Olena, has given it to Dr. Montemayor to complete. I called Olena to let her know we are still working on her paperwork. She is hoping to be able to pick it up by tomorrow and requests a call ivy davenport it is ready at [phone] signed by Serenity Dunn RN at 03/13/2020 1: 07 PM PDTTelephone Encounter - Dima Lehman - 03/13/2020 11:12 AM PDTPt called for statu s of paperwork she dropped off for doctor to complete so she can come pick it up Please contact her @ [phone] signed by Dima Lehman at 03/13/2020 11: 13 AM PDTdocumented in this encounter Plan of Treatment +--------+ + + + + | Date | Type | Specialty | Care Team | Description | +--------+ + + + + | 08/12/ | Appointment | Oncology | Elmer Silva | | | 2019 | | | MD [address] | | | | | | [place] | | | | | | [address] | | | | | | | | +--------+ + + + + | 08/12/ | Hospital | Infusion Therapy | Elmer Silva | | | 2019 | Encounter | | MD [address] | | | | | | [place] | | | | | | [address] | | | | | | | | +--------+ + + + + | 08/12/ | Appointment | Oncology | Lionel Benson | | | 2019 | | | [address] | | | | | | [address] | | | | | | [place] [address] | | | | | | [phone] | | | | | | | | +--------+ + + + + | 08/19/ | Appointment | Oncology | Elmer Silva | | | 2019 | | | E, [address] | | | | | | [place] | | | | | | [address] | | | | | | | | +--------+ + + + + | 08/19/ | Appointment | Infusion Therapy | Elmer Silva | | | 2019 | | | E, MD [address] | | | | | | [place] | | | | | | [address] | | | | | | | [...] [place] | | | | | | [address] | | | | | | | [...] [place] | | | | | | [address] | | | | | | | [...] [place] | | | | | | [address] | | | | | | | [...]
--- OUTSIDE RECORDS SUMMARY | ~2020-08-08 | XMS | Encounter Summary ---
Demographics + + + | Address | [address] | | | [place] [address] | + + + | Home Phone [...] Author + + + | Author | Merged With [facility] | | | and [place] | + + + | Organization | Merged With [facility] | | | [...] Team Providers + +------+ + | Care Grinder Set Up Operator Thread Name | Role | Phone | + [...] | Non-small | Susie M, | [address] | | | | | cell cancer | MD [address] | [place], | | | | | of right | [address] | [place] [address] | | | | | lung (HCC) | [place], | Phone: | | | | | Procedures | [place] [address] | [phone] | | | | | CT Chest | Phone: | Fax: | | | | | Abdomen | [phone] | [phone] | | | | | Pelvis w | Fax: | | | | | | Contrast | [phone] | | +--------+--------+ + + + + [...] | | | cell cancer | [place] [address] | [address] | | | | | of right | [address] | [address] | | | | | lung (HCC) | [place], [place] | [place], | | | | | Secondary | [address] | [place] [address] | | | | | adenocarcino | Phone: | Phone: | | | | | ma of brain | [phone] | [phone] | | | | | (HCC) | Fax: | Fax: | | | | | Thyroid | [phone] | [phone] | | | | | Procedures | | | | | | | [place] OFFICE | | | | | | [...] + + | 04/23/ | Hospital | [facility] | Susie Montemayor | Non-small cell | | 2020 | Encounter | MED CTR RADIATION | MD Jared [address] | cancer of right lung | | | | ONCOLOGY CLINIC [address] | [place], [place] | (HCC) (Primary Dx); | | | | [address] [place] | [address] | Secondary | | | | [place] [address] | | adenocarcinoma of | | | | [phone] | | brain (HCC) | +--------+ + + + + [...] + + + | Blood Pressure | 131/79 | 04/23/2020 2:12 PM | | | | | PDT | | + + + + + | Pulse | 88 | 04/23/2020 2:12 PM | | | | | PDT | | + + + + + | Temperature | 36.6 C (97.9 F) | 04/23/2020 2:12 PM | | | | | PDT | | + + + + + | Respiratory Rate | 16 | 04/23/2020 2:12 PM | | | | | PDT | | + + + + + | Oxygen Saturation | 99% | 04/23/2020 2:12 PM | | | | | PDT | | + + + + + | Inhaled Oxygen | - | - | | | Concentration | | | | + + + + + | Weight | 84.9 kg (187 lb 2.7 | 04/23/2020 2:12 PM | | | | oz) | PDT | | + + + + + | Height | - | - | | + + + + + | Body Mass Index | 28.05 | 02/27/2020 6:30 AM | | | [...] of this encounter Discharge Instructions Patient Instructions Azucena Ritchie RN - 04/23/2020 2:00 PM PDTFollow-up with Dr. Kassandra barclay in June. Labs: none Imaging: CT chest/abdomen/pelvis in June, MRI brain in June Medication changes: Restart Dexamethasone 4 mg twice daily for 3 days, then decrease by 2 m g every third day. Referrals: none Follow-up with Dr. Silva as directed. Alternation of follow-up between providers antic ipated. documented in this encounter Medications at Time [...] encounter Progress Notes Susie Montemayor MD - 04/23/2020 2:00 PM PDT Radiation Oncology Follow-up Chief Complaint/ICD10 [...] of right lower lobe, adenocarcinoma, acinar with mucinous/si gnet-ring featuresof the right lower lobe. - Right lower lobe pulmonary nodule with metabolic activity on PET/CT, identified during workup for thyroid cancer. - 12/30/16 Treated with right lower lobectomy and lymph node dissection. Stage IIIA, pT3 pN1. 2 foci in same lobe measuring 1.3 and 1 cm. Extensive lymphovascular space invasio n. One right level 11 lymph node with [...] sentinel lymph node biopsy. 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 pT1c pN0 ER 99%, NC 60%, Her2 non-amplified. 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 - 10/04/2019 whole breast radiation with a lumpectomy cavity boost, total 50.04 Gy in 20 fra ction. - 12/06/2019 started adjuvant endocrine therapy with exemestane, ongoing. Olena Rider completed brain radiation one month ago, she returns for unplanned follo w-up. Olena was last seen at the completion of her fractionated radiosurgery treatment f or a solitary brain metastasis. She reports that over the past few weeks she has been exper iencing increasing fatigue, headache and nausea. No difficulty ambulating. Notes some "fog ging" of vision but no focal visual deficits. 04/10/20 - follow up with Dr. 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 As previously reviewed, other than the brain met astasis General health: Continued joint pain. Slight recent weight gain. Ongoing treatment: Exemestane Review of systems: Constitutional: Reports extreme fatigue since treatment, unable to tolerate any activity. F eels like this is getting worse. Reports nausea, needing Zofran 4-5 times per week. Denies high fevers, shaking chills, anorexia, vomiting, weight loss, or night sweats. Appetite wi thout changes. Ear, Nose, Mouth, Throat: Reports some difficulty with swallowing since thyroid surgery, un changed. Denies odynophagia, dysphagia, or tinnitus. Cardiovascular: Denies shortness of breath, dyspnea on exertion, chest pain, palpitations o r orthopnea. Respiratory: Denies cough, hemoptysis, or sputum production. Gastrointestinal: Denies abdominal pain, constipation, diarrhea, melena, or bright red bloo d per rectum. Genitourinary: Denies hematuria or dysuria. Musculoskeletal: Reports general joint pain. Neurologic: Reports headache since treatment, some days are severe and some days are mild. May be improving slightly. Reports foggy vision at times. Denies numbness/tingling of th e extremities. Endocrine: Denies peripheral edema or heat/cold intolerance. Hematologic: Denies spontaneous bruising or bleeding. Integumentary: Denies rash, wounds or other skin concerns. Note: Patient here for follow up, continued headaches since treatment. Also reports diffic ulty with word finding and short term memory. My chart: Active Pain assessment: Location: headaches, general joint pain Pain Level: PAIN PROG PAIN LEVEL: 4 Pain Quality: Throbbing Current pain regimen: tylenol or ibuprofen Current Outpatient Medications Medication Sig Dispense Refill acetaminophen (TYLENOL) 500 mg tablet Take 1,000 mg by mouth every 6 hours as needed fo r Pain. ALPRAZolam (XANAX) 0.25 mg tablet Take 0.125 mg by mouth 3 times daily as needed. For s evere anxiety Calcium 500 MG TABS Take 500 mg by mouth Daily. dexamethasone (DECADRON) 2 MG tablet Take 1 tablet by mouth daily (with breakfast). (Mendoza plummer not taking: Reported on 04/23/2020) 10 tablet 0 DULoxetine (CYMBALTA) [address] [...] Nausea. traMADol (ULTRAM) 50 mg tablet Take 50-100 [...] reaction - trouble breathing after hysterectomy" Vitals: 04/23/20 1412 BP: 131/79 Pulse: 88 Resp: 16 Temp: 36.6 C (97.9 F) PainSc: 4 Wt Readings from Last 3 Encounters: 04/23/20 84.9 kg (187 lb 2.7 oz) 04/10/20 83.7 kg (184 lb 8.4 oz) 03/26/20 82.6 kg (182 lb 1.6 oz) Physical Exam: General: Healthy appearing woman in no acute medical distress. KPS: 80-90 HEENT: Pupils equal, round and reactive to light. No conjunctival icterus or injection. EOM I. Oral, moist mucus membranes. Lymphatic: No cervical, supraclavicular or axillary lymphadenopathy. Cardiovascular: Regular rate and rhythm, no murmur. Pulmonary: Breath sounds heard throughout, no adventitial sounds or increased work of breat elin at rest. Extremities: Upper and lower extremities warm and well perfused with no upper or lower extr emity edema. Neurologic: Alert, oriented and appropriated in conversation. CN II-IX 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. Moves all 4 extremities normally with normal gait. Psychiatric: Appropriate. Labs: Lab Results Component Value Date WBC 7.64 02/27/2020 HGB 13.1 02/27/2020 HCT 40.2 02/27/2020 MCV 91.8 02/27/2020 PLT 331 02/27/2020 Lab Results Component Value Date CREA 0.82 02/27/2020 BUN 8 02/27/2020 NA 139 02/27/2020 K 3.8 02/27/2020 CL 105 02/27/2020 CO2 26 02/27/2020 Lab Results Component Value Date ALT 9 (L) 01/04/2020 AST 15 01/04/2020 ALKPHOS 88 01/04/2020 BILITOT 0.3 01/04/2020 Imaging: Review of relevant imaging reports: MRI BRAIN W WO CONTRAST dated 03/11/2020 Biopsy related changes within the mass consistent with a small amount of hemorrhage. There is evidence for a small amount of postbiopsy intraventricular hemorrhage without hydrocephalus. No evidence for additional lesions. Dictated and Signed by: Milton Dewitt MD Assessment: ICD-10-CM ICD-9-CM 1. Non-small cell cancer of right lung (HCC) C34.91 162.9 2. 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 She has not received dexamethasone at any point during her radiation treatment course. I recommend she try a ta per as outlined below of dexamethasone for symptom management. She is instructed to notify our office if symptoms do not improve as expected. We will plan on follow-up imaging with C T chest and pelvis and MRI of the brain in June. Clinical follow-up around that time as zayda boateng. She should also continue to follow with Dr. Silva as directed. Plan: Follow-up with Dr. Montemayor in June. Labs: none Imaging: CT chest/abdomen/pelvis in June, MRI brain in June Medication changes: Restart Dexamethasone 4 mg twice daily for 3 days, then decrease by 2 m g every third day. Referrals: none Follow-up with Dr. Silva as directed. Alternation of follow-up between providers antic ipated. Orders Placed This Encounter Procedures CT Chest Abdomen Pelvis w Contrast Thank you for allowing me to participate in the care of Olena Rider. If you should h ave any questions regarding this evaluation, please do not hesitate to contact me. Susie Montemayor M.D. Radiation Oncologist Department of Radiation Oncology [facility] Office: [phone] documented in this encounter Plan of Treatment [...] [place] | | | | | | [id number] | | | | | | | | +--------+ + + + + | 08/12/ | Appointment | Oncology | Lionel Benson | | | 2019 | | | J, PharmCorky [address] | | | | | | [address] [place] | | | | | | [place] [address] | | | | | | [phone] | | | | | | | | +--------+ + + + + | 08/19/ | Appointment | Oncology | Elmer Silva | | | 2019 | | | E, [address] | | | | | | [place] | | | | | | [address] | | | | | | | | +--------+ + + + + | 08/19/ | Appointment | Infusion Therapy | Elmer Silva | | | 2019 | | | E, [address] | | | | | | [address] [place] | | | | | | [address] | | | | | | | [...] [place] | | | | | | [address] | | | | | | | [...] [place] | | | | | | [address] | | | | | | | [...] [place] | | | | | | [address] | | | | | | | [...] [place] | | | | | | [address] | | | | | | | | +--------+ + + + + documented as of this encounter Results CT Chest Abdomen Pelvis [...] Procedure Note | + + | Christopher, [id number] - 05/28/2020 1:20 PM PDT TECHNIQUE: After [...] abnormality. Stable | | sclerotic lesion at T2adnmubhiy body and probable bone island at the [...]
--- OUTSIDE RECORDS SUMMARY | ~2020-08-08 | XMS | Encounter Summary ---
Demographics + + + | Address | [address] | | | [place] [address] | + + + | Home Phone [...] + + + | Author | [facility] | | | and [place] | + + + | Organization | [facility] | | [...] Team Providers + +------+ + | Care Public Housing Interviewer Name | Role | Phone | + +------+ + | Zuleyka Martínez | PCP | | + +------+ + Encounter Details +--------+ + + + + | Date | Type | Department | Care Team | Description | +--------+ + + + + | 10/01/ | Hospital | [facility] | CiprianoKimZuleyka, | Thyroid cancer (HCC) | | 2017 | Encounter | MED CTR ULTRASOUND | MD [address] | | | | | [address] [place] | [address] [place], | | | | | [place] | [place] [address] | | | | | [address] | [phone] | | | | | [phone] | | | | | | | Yoselin Santos | | | | | | R, Desktop Architect | | +--------+ + + + + [...] | | | | | | [place] | | | | | | [address] | | | | | | | | +--------+ + + + + | 08/12/ | Hospital | Infusion Therapy | Elmer Silva | | 2019 | Encounter | | MD [address] | | | | | | [place] | | | | | | [address] | | | | | | | | +--------+ + + + + | 08/12/ | Appointment | Oncology | Lionel Benson | | | 2019 | | | JZe [address] | | | | | | [address] [place] | | | | | | [place] [address] | | | | | | [phone] | | | | | | | | +--------+ + + + + | 08/19/ | Appointment | Oncology | Elmer iSlva | | | 2019 | | | E, [address] | | | | | | [address] [place] | | | | | | [address] | | | | | | | | +--------+ + + + + | 08/19/ | Appointment | Infusion Therapy | Elmer Silva | | | 2019 | | | E, [address] | | | | | | [address] [place] | | | | | | [address] | | | | | | | [...] [place] | | | | | | [address] | | | | | | | [...] [place] | | | | | | [address] | | | | | | | [...] [place] | | | | | | [address] | | | | | | | [...] [place] | | | | | | [address] | | | | | | | | +--------+ + + + + documented as of this encounter Procedures + +--------+ + + + | Procedure Name | Priori | Date/Time | Associated Diagnosis | Comments | | | ty | | | | + +--------+ + + + | US HEAD NECK SOFT | Routin | 10/01/2017 | Thyroid cancer | Results for this | | TISSUE | e | 5:04 PM | (HCC) | procedure are in the | | | | PST | | results section. | + +--------+ + + + documented in this encounter Results US Head Neck Soft Tissue (10/01/2017 5:04 PM PST) + + | Specimen | + + | | + + + + + | Narrative | Performed At | + + + | TECHNIQUE: Anterior neck B-mode ultrasound with color and duplex | [facility] | | doppler CLINICAL INFORMATION: H/O THYROID CA, S/P SURGERY. | | | COMPARISON: 05/03/2017. FINDINGS: Thyroidectomy changes. No | | | residual thyroid tissue identified. Unchanged left neck hypoechoic | | | structure measuring 1.6 x 0.7 x 0.5 cm, most likely representing a | | | lymph node without a normal fatty hilum. Adjacent left neck lymph | | | node measuring up to 6 mm with normal fatty hilum. IMPRESSION - | | | Thyroidectomy changes without residual thyroid tissue identified. | | | Stable left neck hypoechoic lesion measuring up to 1.6 cm, | | | probable lymph node. Dictated and Signed by: Miko Ramsey MD | | | Electronically signed: 10/01/2017 9:20 PM | | + + + + + | Procedure Note | + + | Christopher, Rad Results In - 10/01/2017 9:23 PM PST | | TECHNIQUE: Anterior neck B-mode ultrasound with color and duplex doppler | | | | CLINICAL INFORMATION: H/O THYROID CA, S/P SURGERY. | | | | COMPARISON: 05/03/2017. | | | | FINDINGS: | | | | Thyroidectomy changes. No residual thyroid tissue identified. | | | | Unchanged left neck hypoechoic structure measuring 1.6 x 0.7 x 0.5 cm, most | | likely representing a lymph node without a normal fatty hilum. Adjacent left | | neck lymph node measuring up to 6 mm with normal fatty hilum. | | | | | | IMPRESSION - | | Thyroidectomy changes without residual thyroid tissue identified. | | | | Stable left neck hypoechoic lesion measuring up to 1.6 cm, probable lymph node. | | | | Dictated and Signed by: Miko Ramsey MD | | Electronically signed: 10/01/2017 9:20 PM | + + + +---------+ + [...]
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
--- OUTSIDE RECORDS SUMMARY | ~2020-08-08 | XMS | Encounter Summary ---
Demographics + + + | Address | [address] | | | [place] [address] | + + + | Home Phone | | + + + | Preferred Language | Unknown | + + + | Marital Status | Single | + + + | Confucianist Affiliation | Unknown | + + + | Race | White | + + + | Ethnic Group | Not or | + + + Author + + + | Author | [facility] | | | and [place] | + + + | Organization | [facility] | | | [...] Providers + +------+ + | Care Medical Csr Name | Role | Phone | + +------+ + | Zuleyka Martínez | PCP | | + +------+ + Encounter Details +--------+---------+ + + + | Date | Type | Department | Care Team | Description | +--------+---------+ + + + | 03/11/ | Office | [facility] | Lemuel Da Silva DO | Brain mass (Primary | | 2019 | Visit | NEUROSURGERY [address] | Dx); 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[address] | [address]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) | | | | [place], [place] | [place] [address] | | | | | [address] | [phone] | | | | | [phone] | | | +--------+---------+ + + + [...] + + + | Blood Pressure | 123/83 | 03/11/2020 11:33 AM | | | | | PDT | | + + + + + | Pulse | 90 | 03/11/2020 11:33 AM | | | | | PDT | | + + + + + | Temperature | - | - | | + + + + + | Respiratory Rate | - | - | | + + + + + | Oxygen Saturation | - | - | | + + + + + | Inhaled Oxygen | - | - | | | Concentration | | | | + + + + + | Weight | 83.5 kg (184 lb) | 03/11/2020 11:33 AM | | | | | PDT | | + + + + + | Height | - | - | | + + + + + | Body Mass Index | 27.57 | 02/27/2020 6:30 AM | | | [...] + documented as of this encounter Progress Lemuel Fernandez DO - 03/11/2020 11:30 AM PDT Neurosurgery Post Operative Clinic Note [facility] Provider: Lemuel Da Silva DO Date : 03/11/2020 12:37 PM Referring Provider: No ref. provider found Patient narrative from prior notes - Patient ID 02/02/2020:Olena Grimes a 59 y. o.femalepresents to neurosurgery clinic with chief complaint of newly diagnosed brain ma ss after incidentally found will patient being treated for periorbital cellulitis. Patient with very complex oncologic history with thyroid breast and lung cancer under various stage s of treatment patient with new mass which is located just posterior to the right caudate pa tient denies any new loss of neurologic function no new weakness numbness no memory deficits patient does have headaches but unlikely to be related to this mass described as pressure h eadaches which been going on for long. She feels that it may be related to needing to get her glasses adjusted. Patient has been evaluated by the oncology team was referred to neur osurgery for consideration of biopsy versus resection of this mass patient had a PET scan sc heduled to evaluate overall tumor burden has been recently been losing weight but canceled t hat PET scan due to the management for this orbital cellulitis. 02/27/2020 <- OR date - Patient underwent surgical intervention with Procedure(s): Stereotactic biopsy of right frontal lesion. Possible conversion to open - without complica tion post op CT without bleeding 02/28/2020 12:15 PM - Patient agrees and is ready for disposition home with family. No new s ymptoms routine post operative course 03/11/2020 - Olena Rider is a 59 y.o. female presents to clinic post surgical interve ntion on 02/27/2020 with Stereotactic biopsy of right frontal lesion. Possible conversion to open - Right returns to clinic with routine postoperative course weaning from pain medicatio ns with only minor headache Past Medical History: Diagnosis Date Anxiety Brain mass 01/2020 unknown etiology Breast cancer (HCC) 08/2019 completed radiation 10/2019 GERD (gastroesophageal reflux disease) Headache 08/2019 Insomnia Joint pain Lung cancer (HCC) 2016 Malignant neoplasm of thyroid gland (HCC) 2016 PONV (postoperative nausea and vomiting) Allergies Allergen Reactions Morphine Anaphylaxis and Other (See Comments) Patient states she has had no issues with Dilaudid or oxycodone. Adhesive & Tape Rash Skin breakdown Metal [Nickel] Rash Skin breakdown Morphine And Related Other (See Comments) "unknown reaction - trouble breathing after hysterectomy" Past Surgical History: Procedure Laterality Date APPENDECTOMY BRAIN BIOPSY Right 02/27/2020 Procedure: Stereotactic biopsy of right frontal lesion. Possible conversion to open; Surg suzanne: Lemuel Da Silva, DO; Location: [facility] [place] BREAST BIOPSY Right 06/15/2019 Procedure: US GUIDED BREAST BIOPSY RIGHT - Location: [facility] BREAST BIOPSY Right 06/15/2019 Procedure: US GUIDED BREAST BIOPSY RIGHT - Location: [facility] BREAST BIOPSY Right 06/15/2019 Procedure: US GUIDED BREAST BIOPSY RIGHT - Location: [facility] BREAST BIOPSY Right 07/06/2019 Procedure: US GUIDED BREAST BIOPSY RIGHT - Location: [facility] COLECTOMY has large growth in colon - states was precancerous HYSTERECTOMY LOBECTOMY Right 2016 MASTECTOMY, PARTIAL Right THYROIDECTOMY Family History Problem Relation Age of Onset Cancer Mother Breast dx at age 53 Cancer Sister Breast dx at age 54 Cancer Paternal Aunt breast cancer dx in her 40's Malig hypertherm Neg Hx Vitals 02/28/2020 03/11/2020 SYSTOLIC 111 123 DIASTOLIC 67 83 Pulse 70 90 Temp 98.9 - Resp 20 - Weight - 184 lbs Height - - SPO2 99 - BMI - - Social History Socioeconomic History Marital status: Single Spouse name: Not on file Number of children: Not on file Years of education: Not on file Highest education level: Not on file Occupational History Not on file Social Needs Financial resource strain: Not on file Food insecurity: Worry: Not on file Inability: Not on file Transportation needs: Medical: Not on file Non-medical: Not on file Tobacco Use Smoking status: Former Smoker Packs/day: 0.50 Years: 30.00 Pack years: 15.00 Types: Cigarettes Last attempt to quit: 12/2019 Years since quittin.2 Smokeless tobacco: Never Used Substance and Sexual Activity Alcohol use: Not Currently Comment: once a month Drug use: No Sexual activity: Not on file Lifestyle Physical activity: Days per week: Not on file Minutes per session: Not on file Stress: Not on file Relationships Social connections: Talks on phone: Not on file Gets together: Not on file Attends synagogue service: Not on file Active member of club or organization: Not on file Attends meetings of clubs or organizations: Not on file Relationship status: Not on file Intimate partner violence: Fear of current or ex partner: Not on file Emotionally abused: Not on file Physically abused: Not on file Forced sexual activity: Not on file Other Topics Concern Not on file Social History Narrative Not on file Objective Vitals 02/28/2020 03/11/2020 SYSTOLIC 111 123 DIASTOLIC 67 83 Pulse 70 90 Temp 98.9 - Resp 20 - Weight - 184 lbs Height - - SPO2 99 - BMI - - PHYSICAL EXAM: General: Pleasant, awake, alert, and oriented. In no acute distress, well developed, well n ourished. Speech fluent and approriate Skin:Skin color, texture, turgor normal. No rashes or lesions. HEENT: Normocephalic atraumatic Muscle Strength: Right Left Upper Extremity: 5/ 5/5 Lower Extremity: 5 5/5 Muscle tone: :normal Back: Wound:Clean, dry, and intact. No evidence of wound breakdown or infection Neuro: Gait: Normal gait with balanced heel toe walking, negative Romberg. Sensation:Normal report ed sensation to light touch Lab Results Component Value Date/Time WBC 7.64 02/27/2020 06:50 AM RBC 4.38 02/27/2020 06:50 AM HGB 13.1 02/27/2020 06:50 AM HCT 40.2 02/27/2020 06:50 AM PLT 331 02/27/2020 06:50 AM Lab Results Component Value Date/Time NA 139 02/27/2020 06:50 AM K 3.8 02/27/2020 06:50 AM CL 105 02/27/2020 06:50 AM CO2 26 02/27/2020 06:50 AM BUN 8 02/27/2020 06:50 AM MG 1.7 01/05/2020 04:39 AM Medications: Current Outpatient Medications: acetaminophen (TYLENOL) 500 mg tablet, Take 1,000 mg by mouth every 6 hours as needed for Pain., Disp: , Rfl: ALPRAZolam (XANAX) 0.25 mg tablet, Take 0.125 mg by mouth 3 times daily as needed. For severe anxiety, Disp: , Rfl: Calcium 500 MG TABS, Take 500 mg by mouth Daily., Disp: , Rfl: DULoxetine (CYMBALTA) [address] capsule, Take 30 mg by mouth 2 times daily., Disp: , Rf l: exemestane (AROMASIN) 25 MG tablet, Take 1 tablet by mouth Daily., Disp: 90 tablet, Rf l: 3 HYDROcodone-acetaminophen (NORCO) 10-325 mg per tablet, Take 1 tablet by mouth every 6 hours as needed for Pain for up to 14 days. Ok to cut tablet in half as pain decreases over time. Re: Post operative pain, Disp: 40 tablet, Rfl: 0 levothyroxine (SYNTHROID) 125 mcg tablet, Take 125 mcg by mouth every morning (before breakfast)., Disp: , Rfl: Multiple Vitamins-Minerals (MULTIVITAMIN ADULT) TABS, Take 1 tablet by mouth Daily., D isp: , Rfl: omeprazole (PRILOSEC) 20 mg capsule, Take 20 mg by mouth every morning (before breakfa st)., Disp: , Rfl: ondansetron (ZOFRAN ODT) 4 mg disintegrating tablet, Take 4 mg by mouth every 8 hours as needed for Nausea., Disp: , Rfl: traMADol (ULTRAM) 50 mg tablet, Take 50-100 mg by mouth 4 times daily as needed for Pa in., Disp: , Rfl: zolpidem (AMBIEN) 10 mg tablet, Take 10 mg by mouth nightly., Disp: , Rfl: Imaging: No new Internal Imaging Recent XRay Results: Ct Head Wo Contrast Result Date: 02/27/2020 1. Postsurgical changes are noted with a small mariel hole along the right frontal bone for b iopsy of a mass along the periventricular white matter. There appears to be some residual t umor noted in the area of surgery. 2. No evidence of hydrocephalus. Ventricular system is s table in size. Signed by: Russ Rendon, Santosh Sign Date/Time: 02/27/2020 2:33 PM Mri Brain W Wo Contrast Result Date: 01/22/2020 There is a partially cystic enhancing mass along the right lateral ventricle. In a patient with a known malignancies this could be metastasis. Given the location in the minimal adjac ent vasogenic edema and unusual periventricular subependymal tumor is a possibility. Germin kathy and primary brain malignancy are felt to be less likely. 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 Dictated and Signed by: Jared Shipman Electronically signed: 01/22/2020 10:[address] Orbit Sella Post Fossa Iac W Cont Result Date: 01/04/2020 1. LEFT PRESEPTAL PERIORBITAL AND MALAR SOFT TISSUE SWELLING/INFLAMMATION AND SUSPECTED SM ALL SUPERFICIAL ABSCESS AT THE LEVEL OF THE MEDIAL CANTHUS. NO CONCLUSIVE POST SEPTAL INVOL VEMENT IS APPARENT. 2. LOBULATED, PRESUMABLY ENHANCING LESION AT THE LEVEL OF THE BODY OF T HE RIGHT LATERAL VENTRICLE WHICH MAY BE INTRAVENTRICULAR OR SUBEPENDYMAL. FOLLOW-UP UNENHAN MICHELET AND ENHANCED BRAIN MRI SHOULD BE STRONGLY CONSIDERED FOR FURTHER CHARACTERIZATION. Image s were provided for interpretation on January 04, 2020 at 1100 hours. Results were finalized a t 1130 hours. Dictated and Signed by: Hugo Godfrey MD Electronically signed: 01/04/2020 11:[address] Skull Base To Mid Thigh Result Date: 02/07/2020 Summary of Target Lesions: 1. New 6 mm nodular density in the anterior subpleural right leora g base 4/129, SUV 2.4. 2. New medial left apical strandy change measuring 12 x 3 mm, wi thout uptake. 3. Interval resection of the thyroid, with no recurrent abnormal thyroid bed u ptake. 4. 10 x 4 mm left inguinal lymph node 4/260, SUV 1.7, previously 12 x 7 mm, SUV 5.5. Other PET/CT Findings: 1. Thyroidectomy. 2. Right lower lobectomy, with significant narrowin g of the origin of the right middle lobe bronchus. Pulmonary consultation is recommended. 3 . Complex fluid collection lateral right breast measuring 3.2 x 2.2 cm with minimal peripher al uptake, SUV up to 2.2, likely postsurgical. Mammographic and sonographic follow-up is rec ommended. Comments: 1. Interval thyroidectomy, with resolution of the previous thyroid nodul es and uptake. No recurrent thyroid malignancy is seen. 2. Interval right lower lobectomy, with anterior right basilar 6 mm nodule with minimal uptake, probably reactive. Progress PE T-CT evaluation as a precaution is recommended. 3. Previous abnormal uptake in the left ingu inal lymph node has resolved. Signed by: Russ Flores, Joshua Sign Date/Time: 02/07/2020 8:15 AM Assessment Orders placed this Encounter: Orders Placed This Encounter Procedures MRI Brain w wo Contrast Patient's Medications New Prescriptions No medications on file Modified Medications No medications on file Discontinued Medications No medications on file FINAL PATHOLOGIC DIAGNOSIS: Pending stains A. Right periventricular brain mass, biopsy: - Mucinous adenocarcinoma. B. Right periventricular brain mass, biopsy #2: - Mucinous adenocarcinoma. COMMENT: The submitted tissue shows adenocarcinoma with abundant mucinous cytoplasm. The tumor sta ins with antibodies against cytokeratin 7, CA19-9, CA125 and polyclonal CEA. The following stains are negative: TTF-1, S-100, estrogen receptor protein, PAX8, CK20, CDx2, Napsin A, ONEAL-3, GC DFP and mammaglobin. CA125 staining can be seen in ovarian tumors, but also pancreatic and hepatobiliary tumors. Negative PAX8 is strong evidence against a [employer] primary. The positive CA19-9 and polyclonal CEA are strong evidence for a pancreatic or hepatobiliary primary. Please karine elate with imaging studies. Assessment and Plan: Olena Rider is a 59 y.o. 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 Patient with routine postoperative rec overy no new neurologic sequela The primary encounter diagnosis was Brain mass. 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 Plan : 1. Patient doing extremely well postoperatively patient's incision clean dry and intact pat ient cleared for radiation therapy. 2. Will defer to Dr. Montemayor guarding decision for stereotactic radiosurgery versus whole b rain radiation therapy. 3. Also patient to follow with oncologist Dr. Salazar regarding targeted chemotherapy. 4. Recommend repeat MRI of the brain which was ordered for [place]'s region in approximate ly 3 months and will likely contact patient via telephone regarding subsequent results. 5. Patient was given a copy of her pathology results of the discussed that this is likely a metastasis from her prior lung primary. 6. All questions answered patient appreciative of care plan for telephone versus in clinic follow-up in 3 months No follow-ups on file. It is a pleasure being involved in this patients care should any questions or concerns víctor e feel free to contact me at any time. Lemuel Da Silva D.O Board Certified Neurosurgeon / Chief of Neurosurgery [facility] Office Parts of this document have been created with voice recognition software. Although I have p roofread the note, video games storywriter errors may still exist. documented in this enc ounter Plan of Treatment +--------+ + + + + | Date | Type | Specialty | Care Team | Description | +--------+ + + + + | 08/12/ | Appointment | Oncology | Elmer Silva | | 2019 | | | MD [address] | | | | | | [place] | | | | | | [id number] | | | | | | | | +--------+ + + + + | 08/12/ | Hospital | Infusion Therapy | Elmer Silva | | 2019 | Encounter | | MD [address] | | | | | | [place] | | | | | | [id number] | | | | | | | | +--------+ + + + + | 08/12/ | Appointment | Oncology | Lionel Benson | | | 2019 | | | [address] | | | | | | [address] [place] | | | | | | [place] [address] | | | | | | [phone] | | | | | | | | +--------+ + + + + | 08/19/ | Appointment | Oncology | Elmer Silva | | | 2019 | | | E, [address] | | | | | | [address] [place], [place] | | | | | | [address] | | | | | | | | +--------+ + + + + | 08/19/ | Appointment | Infusion Therapy | Elmer Silva | | | 2019 | | | E, [address] | | | | | | [address] [place], [place] | | | | | | [address] | | | | | | | [...] Visit | | MD Trip [address] | | | | | | [place] | | | | | | [id number] | | | | | | | [...] [place] | | | | | | [id number] | | | | | | | [...] [place] | | | | | | [phone] | | | | | | | [...] [place] | | | | | | [id number] | | | | | | | | +--------+ + + + + documented as of this encounter Visit Diagnoses + + | Diagnosis | + + | Brain mass - Primary Unspecified condition of brain | + + | Mucinous adenocarcinoma (HCC) Other malignant neoplasm without specification of site | + + documented in this encounter
--- OUTSIDE RECORDS SUMMARY | ~2020-08-08 | XMS | Encounter Summary ---
Demographics + + + | Address | [address] | | | [place] [address] | + + + | Home Phone [...] Team Providers + +------+ + | Care Beer Merchant Name | Role | Phone | + [...] + + + + | 03/12/ | [facility] | [facility] | Milton Salazar | Non-small cell | | 2017 | Encounter | [facility] | MD [address] | cancer of right lung | | | | [facility] [address] | (HCC) (Primary Dx); | | | | [address] | [place] [address] | Malignant neoplasm | | | | [place] [address] | [phone] | of thyroid gland | | | | [phone] | | (HCC) | +--------+ + + [...] + + + | Blood Pressure | 140/86 | 03/12/2017 7:56 AM | | | | | PDT | | + + + + + | Pulse | 68 | 03/12/2017 7:56 AM | | | | | PDT | | + + + + + | Temperature | 36.9 C (98.4 F) | 03/12/2017 7:56 AM | | | | | PDT | | + + + + + | Respiratory Rate | 16 | 03/12/2017 7:56 AM | | | | | PDT | | + + + + + | Oxygen Saturation | 99% | 03/12/2017 7:56 AM | | | | | PDT | | + + + + + | Inhaled Oxygen | - | - | | | Concentration | | | | + + + + + | Weight | 85.8 kg (189 lb 1.6 | 03/12/2017 7:56 AM | | | | oz) | PDT | | + + + + + | Height | - | - | | + + + + + | Body Mass Index | 28.75 | 11/04/2016 9:00 AM | | | [...] encounter Progress Notes Milton Salazar MD - 03/12/2017 7:49 AM PDTFormatting of this note might be diff erent from the original. Hem-Onc Progress Note [facility] Pt. Name/Age/: Olena Rider 56 y.o. 1960 Med. Record Number: [id number] Date of admission: 03/12/2017 Assessment and plan: 1. Non-small cell lung cancer, RLL, Nov, 2016 Adenocarcinoma with mucinous features pT3 (two separate foci, 1.3, 1.0 cm), pN1, M0 StageIIIA S/p VATS RLL, Dec, 2016, Dr. Luis Felipe Mon EGFR mutation negative, FISH neg: ROS, ALK rearrangement PD-L1 low expression (3%) 2. Papillary carcinoma of the thyroid S/p thyroidectomy, LN excision S/p radio-iodine abllation, Oct, 2016 Review of plans for second cycle of therapy swapping in the [place] agent, carboplatin in place of cisplatin as a tactic to reduce gastrointestinal toxicity. We discussed the near e quivalence of antitumor effect from these agents, the latter having appreciably less gastroi ntestinal toxicity making it much better tolerated. We also discussed the likelihood of con tinued thinning of hair although we do not expect patient to lose all of her hair. Discussion concerning management of late nausea, also possible with carboplatin. We discus sed differing mechanisms of action and the protective effects of acute antinausea therapy th at sometimes become diminished. We discussed the availability of both rescue treatments her e or through the clinic as well as the possibility of alternate antinausea therapies based o n the tranquilizers the patient can take at home. Subjective: The patient chart and medications were reviewed in detail and the patient was seen and exam ined. Olena Rider is a 56 y.o. female returns today to begin a second cycle of postsurgica l adjuvant chemotherapy because of resected non-small cell lung cancer. Interim history marking the recovery from earlier moderately severe gastrointestinal toxici ty following a first cycle of combination pemetrexed with cisplatin chemotherapy begun last month. 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 In the time since that visit patient went on to recover from nausea and is since felt well. Other interim history however noting patient a baldwin of thinning of hair. She also has experienced an increase in aching discomfort in her hands consistent with arthritis but responding to therapy with ibuprofen. PSH: Reviewed, no changes to admission H&P. Review of Systems: Constitutional: Reports energy level is slightly better in last week, after last treatment had intense nausea with vomiting. States appetite has improved in last week. Denies high fev ers, shaking chills, anorexia, weight loss, or night sweats. Ear, Nose, Mouth, Throat: Reports intermittent tinnitus that has resolved now. Denies odyno phagia or dysphagia. Cardiovascular: Denies shortness of breath, dyspnea on exertion, chest pain, palpitations o r orthopnea. Respiratory: Reports chronic intermittent dry cough that continues since having surgery, oc casionally has wheezing. Denies hemoptysis or sputum production. Gastrointestinal: Reports having diarrhea after last treatment that only lasted a few days. Denies abdominal pain, constipation, melena, or bright red blood per rectum. Genitourinary: Denies hematuria or dysuria. Musculoskeletal: Reports arthritic pain mostly in knees and hips, hands. Neurologic: Reports headaches are intermittent. Denies visual changes or numbness/tingling of the extremities. Endocrine: Denies peripheral edema or heat/cold intolerance. Hematologic: Denies spontaneous bruising or bleeding. Integumentary: Denies rash, wounds or other skin concerns. Pain: Reports arthritic joint aches at 3/10 on scale of 0-10. States she currently takes Ty lenol, Ibuprofen, occasionally tramadol as needed. Review of systems as above otherwise negative Scheduled Medications: Continuous Infusions: PRN Meds:. Allergy: Allergies Allergen Reactions Morphine And Related Other (See Comments) "unknown reaction - trouble breathing after hysterectomy" Objectives: on Min/Max Temp past 24 hours:No Data Recorded No intake or output data in the 24 hours ending 03/12/17 0749 Wt. Admission: Wt. Current: Physical Exam: Exam: General: The patient is alert and oriented. No acute distress. HEENT: PERRL, Oral mucosa intact. Neck is supple. Genitourinary: Deferred. Extremities: Nontender, no erythema, no [...] the Assessment and Plan. Recent Labs Lab 03/12/17 0717 WBC 7.7 HGB 12.4 HCT 36.3 PLT 432 Electronically signed by: Milton Salazar, 03/12/2017 7:49 [facility] TIME SPENT 20 MIN. 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 Occasi onal wrong-word or sound-alike substitutions may have occurred due to the inherent cervantes itations of voice recognition software. Please read the chart carefully and recognize, using context, where these substitutions have occurred. hea, sarika Brandon RN - 03/12/2017 7:45 AM PDTREVIEW OF SYSTEMS Constitutional: Reports energy level is slightly better in last week, after last treatment had intense nausea with vomiting. States appetite has improved in last week. Denies high fe vers, shaking chills, anorexia, weight loss, or night sweats. Ear, Nose, Mouth, Throat: Reports intermittent tinnitus that has resolved now. Denies odyno phagia or dysphagia. Cardiovascular: Denies shortness of breath, dyspnea on exertion, chest pain, palpitations o r orthopnea. Respiratory: Reports chronic intermittent dry cough that continues since having surgery, oc casionally has wheezing. Denies hemoptysis or sputum production. Gastrointestinal: Reports having diarrhea after last treatment that only lasted a few days. Denies abdominal pain, constipation, melena, or bright red blood per rectum. Genitourinary: Denies hematuria or dysuria. Musculoskeletal: Reports arthritic pain mostly in knees and hips, hands. Neurologic: Reports headaches are intermittent. Denies visual changes or numbness/tingling of the extremities. Endocrine: Denies peripheral edema or heat/cold intolerance. Hematologic: Denies spontaneous bruising or bleeding. Integumentary: Denies rash, wounds or other skin concerns. Pain: Reports arthritic joint aches at 3/10 on scale of 0-10. States she currently takes Ty lenol, Ibuprofen, occasionally tramadol as needed. Note: Here for follow up, [...] [place] | | | | | | [id number] | | | | | | | | +--------+ + + + + | 08/12/ | Hospital | Infusion Therapy | Elmer Silva | | | 2019 | Encounter | | MD Lazaro Dominique | | | | | | [place] | | | | | | [id number] | | | | | | | | +--------+ + + + + | 08/12/ | Appointment | Oncology | Lionel Benson | | | 2019 | | | [address] | | | | | | [address] | | | | | | [place] [address] | | | | | | [phone] | | | | | | | | +--------+ + + + + | 08/19/ | Appointment | Oncology | Elmer Silva | | | 2019 | | | E, [address] | | | | | | [place] | | | | | | [address] | | | | | | | | +--------+ + + + + | 08/19/ | Appointment | Infusion Therapy | Elmer Silva | | | 2019 | | | E, [address] | | | | | | [place] | | | | | | [address] | | | | | | | [...] [place] | | | | | | [id number] | | | | | | | [...] [place] | | | | | | [id number] | | | | | | | [...] [place] | | | | | | [id number] | | | | | | | [...] [place] | | | | | | [address] | | | | | | | | +--------+ + + + + documented as of this encounter Procedures + +--------+ + + + | Procedure Name | Priori | Date/Time | Associated Diagnosis | Comments | | | ty | | | | + +--------+ + + + | CBC WITH | STAT | 03/12/2017 | Non-small cell | Results for this | | DIFFERENTIAL | | 7:17 AM | cancer of right lung | procedure are in the | | | | PDT | ([facility]) | results section. | + +--------+ + + + | COMPREHENSIVE | STAT | 03/12/2017 | Non-small cell | Results for this | | METABOLIC PANEL | | 7:17 AM | cancer of right lung | procedure are in the | | | | PDT | ([facility]) | results section. | + +--------+ + + + documented in this encounter Results CBC with Differential (03/12/2017 7:17 AM PDT) + + + + + + | Component | Value | Ref Range | Performed | Pathologist | | | | | At | Signature | + + + + + + | White Blood | 7.7 | 4.0 - 11.0 K/uL | [facility] [...] + + + + | Hemoglobin | 12.4 | 11.5 - 16.0 | [facility] | | | | | g/dL | [facility] | | | | | | [facility] | | | | | | [facility] - | | | | | | LABORATORY | | + + + + + + | Hematocrit | 36.3 | 34.0 - 47.0 % | [facility] [...] + + + + | MCH | 30.9 | 28.0 - 35.0 pg | [facility] | | | | | | [facility] | | | | | | [facility] | | | | | | [facility] - | | | | | | LABORATORY | | + + + + + + | MCHC | 34.0 | 32.0 - 36.0 | [facility] | | | | | g/dL | [facility] | | | | | | [facility] | | | | | | [facility] - | | | | | | LABORATORY | | + + + + + + | RDW-CV | 13.8 | <15.0 % | [facility] | | | | | | [facility] | | | | | | [facility] | | | | | | [facility] - | | | | | | LABORATORY | | + + + + + + | Platelet | 432 | 140 - 440 K/uL | [facility] | | | Count | | | [facility] | | | | | | [facility] | | | | | | [facility] - | | | | | | LABORATORY | | + + + + + + | MPV | 7.5 | fL | [facility] | | | | | | [facility] | | | | | | [facility] | | | | | | [facility] - | | | | | | LABORATORY | | + + + + + + | % | 39.0 (L) | 45.0 - 82.0 % | [facility] | | | Neutrophils | | | [facility] | | | | | | [facility] | | | | | | [facility] - | | | | | | LABORATORY | | + + + + + + | % | 47.6 (H) | 20.0 - 45.0 % | [facility] | | | Lymphocytes | | | [facility] | | | | | | [facility] | | | | | | [facility] - | | | | | | LABORATORY | | + + + + + + | % Monocytes | 8.2 | 4.0 - 12.0 % | [facility] | | | | | | [facility] | | | | | | [facility] | | | | | | [facility] - | | | | | | LABORATORY | | + + + + + + | % | 3.9 | 0.0 - 5.0 % | [facility] | | | Eosinophils | | | [facility] | | | | | | [facility] | | | | | | [facility] - | | | | | | LABORATORY | | + + + + + + | % Basophils | 1.3 (H) | 0.0 - 1.0 % | [facility] | | | | | | [facility] | | | | | | [facility] | | | | | | [facility] - | | | | | | LABORATORY | | + + + + + + | Absolute | 3.00 | 1.80 - 8.50 | [facility] | | | Neutrophils | | K/uL | [facility] | | | | | | [facility] | | | | | | [facility] - | | | | | | LABORATORY | | + + + + + + | Absolute | 3.70 (H) | 0.60 - 3.20 | [facility] | | | Lymphocytes | | K/uL | [facility] | | | | | | [facility] | | | | | | [facility] - | | | | | | LABORATORY | | + + + + + + | Absolute | 0.60 | 0.00 - 1.00 | [facility] | | | Monocytes | | K/uL | [facility] | | | | | | [facility] | | | | | | [facility] - | | | | | | LABORATORY | | + + + + + + | Absolute | 0.30 | 0.00 - 0.40 | [facility] | [...] + | [address] | [address] | [place] | [phone] | | [facility] | | [address] | | | - LABORATORY | | | | + + + + + Comprehensive Metabolic Panel (03/12/2017 7:17 AM PDT) + + + + + [...] + + + + | K | 3.5 | 3.5 - 5.1 | [facility] | | | | | mmol/L | [facility] | | | | | | [facility] | | | | | | [facility] - | | | | | | LABORATORY | | + + + + + + | Cl | 104 | 98 - 109 mmol/L | [facility] [...] + + + + | Glucose | 137 (H) | 70 - 109 mg/dL | [...] + + + + | Creatinine | 1.00 | 0.60 - 1.30 | [facility] | | | | | mg/dL | [facility] | | | | | | [facility] | | | | | | [facility] - | | | | | | LABORATORY | | + + + + + + | eGFR, | 58 (L)Comment: | >=60 | [facility] | | | non- | GLOMERULAR FILTRATION | mL/min/1.73m2 | [facility] | | | [place] | RATE,ESTIMATED | | MEDICAL | | | | mL/min/1.05t3Zbmb than | | CENTER - | | [...] + + + + | Calcium | 9.1 | 8.3 - 10.5 | [facility] | | | | | mg/dL | [facility] | | | | | | [facility] | | | | | | C[facility] - | | | | | | LABORATORY | | + + + + + + | Albumin | 3.6 | 3.2 - 5.0 g/dL | [facility] | | | | | | [facility] | | | | | | [facility] | | | | | | CENTER - | | | | | | LABORATORY | | + + + + + + | Bilirubin | 0.2Comment: This is an | 0.1 - 1.5 [...] + + + + | Total | 6.6 | 6.0 - 7.8 g/dL | [facility] [...] + + + + | ALT | 23Comment: This is an | 6 - 45 [...] + + + + | Alkaline | 73Comment: This is an | 40 - 110 [...] + + + + | Albumin/Yuli | 1.2 | 0.8 - 2.0 | [facility] | | | bulin Ratio | | | [facility] | | | | | | [facility] | | | | | | CENTER - | | | | | | LABORATORY | | + + + + + + | BUN/Creatin | 11.0 | | [facility] | | | ine [...] + + | [address] | [address] | [place] | [phone] | | [facility] | | [address] | | | - LABORATORY | | [...]
--- OUTSIDE RECORDS SUMMARY | ~2020-08-08 | XMS | Encounter Summary ---
Demographics + + + | Address | [address] | | | [place] [address] | + + + | Home Phone [...] Team Providers + +------+ + | Care Driver License Examiner Name | Role | Phone | [...] | | | [address] | [place] [address] | | | | | [place] [address] | | | | | | [phone] | | | +--------+ + + + [...] [place] | | | | | | [id number] | | | | | | | | +--------+ + + + + | 08/12/ | Hospital | Infusion Therapy | Elmer Silva | | | 2019 | Encounter | | MD [address]azaro [address] | | | | | | [place] | | | | | | [address] | | | | | | | | +--------+ + + + + | 08/12/ | Appointment | Oncology | Lionel Benson | | 2019 | | | [address] | | | | | | [address] | | | | | | [place] [address] | | | | | | [phone] | | | | | | | | +--------+ + + + + | 08/19/ | Appointment | Oncology | Elmer Silva | | | 2019 | | | E, MD [address] | | | | | | [place] | | | | | | [address] | | | | | | | | +--------+ + + + + | 08/19/ | Appointment | Infusion Therapy | Elmer Silva | | | 2019 | | | E, MD [address] | | | | | | [place] | | | | | | [id number] | | | | | | | [...] [place] | | | | | | [address] | | | | | | | [...] [place] | | | | | | [address] | | | | | | | [...] [place] | | | | | | [address] | | | | | | | | +--------+ + + + + | 09/23/ | Appointment | Infusion Therapy | | | | 2019 | | | | | +--------+ + + + + | 11/22/ | Appointment | Radiation Oncology | Susie Montemayor | | | 2020 | | | MD [address] | | | | | | [place], [place] | | | | | | [address] | | | | | | | | +--------+ + + + + documented as of this encounter Procedures + +--------+ + + + | Procedure Name | Priori | Date/Time | Associated Diagnosis | Comments | | | ty | | | | + +--------+ + + + | ADAM TOMOSYN | Routin | 07/06/2019 | | Results for this | | DIAGNOSTIC RIGHT | e | 12:00 AM | | procedure are in the | | | | PDT | | results section. | + +--------+ + + + documented in this encounter Results ADAM Tomosynthesis Diagnostic Right (07/06/2019 12:00 AM PDT) + + | Specimen [...]
--- OUTSIDE RECORDS SUMMARY | ~2020-08-08 | XMS | Encounter Summary ---
Demographics + + + | Address | [address] | | | [place] [address] | + + + | Home Phone [...] Author + + + | Author | [facility] | | | and [place] | + + + | Organization | [facility] | | | and [place] | + + + | Address | Unknown | + + + | Phone | Unavailable | + + + Support + + +---------+ + | Name | Relationship | Address | Phone | + + +---------+ + | Jennifer Rider | ECON | Unknown | | + + +---------+ + | Oksana Epsteiney | ECON | Unknown | | + + +---------+ + Care Team Providers + +------+ + | Care Waste And Batting Waste Chopper Name | Role | Phone | + +------+ + | Zuleyka Martínez | PCP | | + +------+ + Reason for Visit +---------+ + | Reason | Comments | +---------+ + | Consult | | +---------+ + Evaluate & Treat (Routine) +--------+--------+ + + + + | Status | Reason | Specialty | Diagnoses / | Referred By | Referred To | | | | | Procedures | Contact | Contact | +--------+--------+ + + + + | Closed | | Radiation | Diagnoses | Stephen, | Albina | | | | Oncology | breast | Luis Felipe Dunne | Susie Coleman MD | | | | | cancer | [address] | [address] | | | | | Procedures | Chelle Colon | [address] | | | | | [place] OFFICE | [place], | [place], | | | | | OUTPATIENT | [place] | [place] [address] | | | | | NEW [address] | [address] | Phone: | | | | | MINUTES | Phone: | [phone] | | | | | | [phone] | Fax: | | | | | | | [phone] | +--------+--------+ + + + + Encounter Details +--------+ + + + + | Date | Type | Department | Care Team | Description | +--------+ + + + + | 08/08/ | Hospital | [facility] | Susie Montemayor | Primary malignant | | 2019 | Encounter | [facility] | MD Jared [address] | neoplasm of female | | | | ONCOLOGY CLINIC [address] | [place], [place] | breast (HCC) | | | | [address] | [address] | (Primary Dx) | | | | [place] [address] | | | | | | [phone] | Deni Hassan | | | | | | MD Sumaya [address] | | | | | | [place], [place] | | | | | | [address] | | | | | | | [...] + + + | Blood Pressure | 125/83 | 08/08/2019 3:00 PM | | | | | PDT | | + + + + + | Pulse | 93 | 08/08/2019 3:00 PM | | | | | PDT | | + + + + + | Temperature | 36.7 C (98.1 F) | 08/08/2019 3:00 PM | | | | | PDT | | + + + + + | Respiratory Rate | 18 | 08/08/2019 3:00 PM | | | | | PDT | | + + + + + | Oxygen Saturation | 100% | 08/08/2019 3:00 PM | | | | | PDT | | + + + + + | Inhaled Oxygen | - | - | | | Concentration | | | | + + + + + | Weight | 87.7 kg (193 lb 5.5 | 08/08/2019 3:00 PM | | | | oz) | PDT | | + + + + + | Height | 173 cm (5' 8.11") | 08/08/2019 3:00 PM | | | | | PDT | | + + + + + | Body Mass Index | 29.3 | 08/08/2019 3:00 PM | | | [...] encounter Progress Notes Deni Hassan MD - 08/08/2019 12:45 PM PDTFormatting of this note might be differen t from the original. Radiation Oncology Consultation Chief Complaint: Olena Rider is a 58 y.o. female seen today as a new patient at the request of Luis Felipe Pugh MD for evaluation and consideration of radiotherapeutic treatment. The encounter diagnosis was Primary malignant neoplasm of female breast (HCC). History of Present Illness: Patient relates that in the summer 2018 she felt a vague sensation of fullness in the later al right breast about that time her sister was also diagnosed with breast cancer. With a co mbination of the above patient presented for asymptomatic screening mammogram This study was notable for focal asymmetry with architectural distortion in the lateral pos terior third of the right breast. There is no mammographic abnormalities in the contralater al left breast. Additional views and ultrasound were obtained March 13, 2019 confirmed increased density in t he right breast at 10 o'clock position measuring 18 mm ill-defined. True sound showed 3 are as of nodularity at 12:00 8 x 4 x 7 mm to represent a fibroadenoma but should be biopsied. 7:00 of 13 x 6 x 12 mm nodule that was also recommended to be biopsied and at 10:00 and 8 x 7 x 9 mm nodule with some vascularity to the area of spiculation noted on mammogram it shoul d be biopsied. Ultrasound-guided biopsy of 3 lesions was performed on 06/15/2019 10:00 lesion proved to be invasive ductal cancer while the other 2 lesions were fibrocystic disease. Patient was referred to Dr. Luis Felipe Pugh who performed lumpectomy and sentinel node biopsy 07/06/2019 pathology was significant for invasive ductal cancer ER positive, NC + HER-2/flakita nega tive. Patient has been consulted by Dr. Salazar. An Oncotype DX been ordered and results will be available in 2 weeks. Work for genetic testing is been drawn today. She relates that small scar to the right of her areole it has not healed while her sentinel node scar has healed beautifully and quickly. Why she feels perfectly well in all respects . Patient reports feeling a little something in her right breast and her sister was recently diagnosed with triple negative breast cancer. Her mother also had breast cancer. Reports right breast incision has been slow to heal, tenderness at site REVIEW OF SYSTEMS Constitutional: Reports low energy reported. Denies high fevers, shaking chills, anorexia, nausea, vomiting, weight loss, or night sweats. Appetite without changes. Nausea continues, uses Ondansetron prn w/ much relief. Ear, Nose, Mouth, Throat: Reports difficulty swollowing at times, feels like things get felicity ck. Denies odynophagia, dysphagia, or tinnitus. Cardiovascular: Reports shortness of breath, dyspnea on exertion. States SOB has been a l ittle worse since getting over a cold. Denies chest pain, palpitations or orthopnea. Respiratory: Denies cough, hemoptysis, or sputum production. Residual cough left from a col d~unproductive Gastrointestinal: Denies abdominal pain, constipation, diarrhea, melena, or bright red bloo d per rectum. Genitourinary: Reports dysuria over last month. Denies hematuria. Musculoskeletal: Reports generalized joint pain, mostly knees and hips. Neurologic: Denies headache, visual changes, or numbness/tingling of the extremities. Endocrine: Denies peripheral edema or heat/cold intolerance. Hematologic: Denies spontaneous bruising or bleeding. Integumentary: Denies rash, wounds or other skin concerns. Reports tenderness to incision s ite outer right breast, Pain: Right outer breast pain at a 4/10 today. Tolerable pain level : 4>10 currently using Tylenol or Ibuprofen for pain relief. 5___, Para_4__, AB___, Miscarriage_1__ Age first _18__, Length of no Menarche age _14__, LMP_35__ Menopause age____ Hx HRT ___no Hx of hormonal control use no Last mmg __07/2019____, Last pap smear ____years___ Do you have a pacemaker or ICD: no Type: Indication for pacemaker: Do you have a connective tissue disorder such as Lupus, Scleroderma, or other: no Current Outpatient Medications Medication Sig Dispense Refill ALPRAZolam (XANAX) 0.25 mg tablet TK 1 TO 2 TS PO 3 XD PRF SEVERE ANXIETY 5 ALPRAZolam (XANAX) 0.5 mg tablet Take 0.5 mg by mouth 3 times daily as needed for Anxie ty. busPIRone (BUSPAR) 5 mg tablet TK 1 TO 2 TS PO 3 XD 0 calcium carbonate (TUMS) 500 mg chewable tablet Take 2 tablets by mouth as needed. celecoxib (CELEBREX) 200 mg capsule TK 1 C PO BID 0 ibuprofen (ADVIL,MOTRIN) 600 MG tablet Take 600 [...] needed for Sleep. No current facility-administered medications for this encounter. Allergies Allergen Reactions Morphine Anaphylaxis,Other (See Comments) Intolerance Allergen Reactions Morphine And Related Other (See Comments) "unknown reaction - trouble breathing after hysterectomy" Past Medical History: Diagnosis Date Anxiety Breast cancer (HCC) Insomnia Lung cancer (HCC) Malignant neoplasm of thyroid gland (HCC) PONV (postoperative nausea and vomiting) Past Surgical History: Procedure Laterality Date APPENDECTOMY BREAST BIOPSY Right 06/15/2019 Procedure: US GUIDED BREAST BIOPSY RIGHT - Location: [facility] BREAST BIOPSY Right 06/15/2019 Procedure: US GUIDED BREAST BIOPSY RIGHT - Location: [facility] BREAST BIOPSY Right 06/15/2019 Procedure: US GUIDED BREAST BIOPSY RIGHT - Location: [facility]TER[facility] BREAST BIOPSY Right 07/06/2019 Procedure: US GUIDED BREAST BIOPSY RIGHT - Location: [facility] EXTERNAL [facility]AG[facility] COLECTOMY HYSTERECTOMY THYROIDECTOMY Family History Problem Relation Age of Onset Cancer Mother Breast dx at age 53 Cancer Sister Breast dx at age 54 Cancer Paternal Aunt breastcancer dx in her 40's Social History Socioeconomic History Marital status: Single Spouse name: Not on file Number of children: Not on file Years of education: Not on file Highest education level: Not on file Social Needs Financial resource strain: Not on file Food insecurity - worry: Not on file Food insecurity - inability: Not on file Transportation needs - medical: Not on file Transportation needs - non-medical: Not on file Occupational History Not on file Tobacco Use Smoking status: Current Every Day Smoker Packs/day: 0.50 Years: 30.00 Pack years: 15.00 Types: Cigarettes Smokeless tobacco: Never Used Substance and Sexual Activity Alcohol use: Yes Comment: once a month Drug use: No Sexual activity: Not on file Other Topics Concern Not on file Social History Narrative Not on file Physical Exam: Vitals: 08/08/19 1500 BP: 125/83 Pulse: 93 Resp: 18 Temp: 36.7 C (98.1 F) Wt Readings from Last 3 Encounters: 08/08/19 87.7 kg (193 lb 5.5 oz) 08/08/19 87.7 kg (193 lb 5.5 oz) 05/24/19 87.5 kg (192 lb 14.4 oz) General: Healthy appearing patient in no acute medical distress. KPS: 80% HEENT: Pupils equal, round and reactive to light. No conjunctival icterus or injection. EOM I. Oral, moist mucus membranes. Lymphatic: No cervical, supraclavicular or axillary lymphadenopathy. Cardiovascular: Regular rate and rhythm, no murmur. Pulmonary: Breath sounds heard throughout, no adventitial sounds or increased work of breat elin at rest. Abdomen: Soft, non-tender, no masses or organomegaly detected. Extremities: Upper and lower extremities warm and well perfused with no upper or lower extr emity edema. Neurologic: Alert, oriented and appropriated in conversation. CN II-IX 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. Moves all 4 extremities normally with normal gait. Psychiatric: Appropriate. Breast: Exam performed in the presence of a integrated specialist. Breasts are symmetric in size there is a small scabby region in the right breast at the periareolar margin at about 8:00 1 cm x 8 mm. I cannot express any pustular material or clear serous fluid. There is no overlying calor erythema. No untoward mass in the right breast there is no skin inversion nipple inv ersion or nipple discharge breast without mass induration or discharge. Radiology/Labs: Pathology results are reported above No results found for: PSA No results found for: TESTOSTERONE Lab Results Component Value Date WBC 9.2 05/24/2019 HGB 12.9 05/24/2019 HCT 40.3 05/24/2019 MCV 91.6 05/24/2019 PLT 326 05/24/2019 Lab Results Component Value Date CREA 0.93 05/24/2019 BUN 9 05/24/2019 NA 139 05/24/2019 K 3.8 05/24/2019 CL 109 (H) 05/24/2019 CO2 26 05/24/2019 Lab Results Component Value Date ALT 13 05/24/2019 AST 18 05/24/2019 ALKPHOS 73 05/24/2019 BILITOT 0.2 (L) 05/24/2019 Assessment and Plan: Patient has history of stage II non-small cell lung cancer status post right lower lobe res ection with no adjunctive radiation with no evidence of recurrent disease. She also has pas t history of papillary thyroid cancer and received radioactive iodine ablation she reports.. She now presents post lumpectomy and sentinel node procedure with a pathologic T1c N0 ER p ositive NC positive HER-2 negative invasive ductal breast cancer. I have discussed with her in general terms the role of radiation and the adjunctive treatme nt of invasive ductal breast cancer. I discussed the different formats which is given and p ossible short long-term side effects including but not limited to such issues as skin rednes s fatigue diminishment of platelets a white count risk of lasting problems such as poor cosm etic result unrelenting pain in the breast or underlying chest wall rib fracture radiation p neumonitis scarring left lung capacity fat necrosis inducement of a second tumor lack of con trol of her primary tumor etc. I also discussed with her sequencing issues and explained that typically if chemotherapy is offered and accepted that this goes next and radiation is given at the end of the treatment sequence. Conversely if chemotherapy is not given the radiation would start shortly with h ormonal treatment if appropriate post termination of radiation. Therefore we cannot start d ecision-making with regards to radiation until we know what her genetic testing and Oncotype DX information will provide. Left it that we will give her an appointment to return but she will cancel such appointment if indeed she accepts chemotherapy. Her questions are answered to her satisfaction she is appreciative and agrees with this approach The procedures involved in preparation and treatment planning for external beam irradiation were discussed in detail including the process of simulation and treatment delivery. A det romi discussion regarding the potential short and long-term side effects of radiation treat ment occurred next. Olena verbalized understanding of the treatment recommendation and wi shes to proceed to simulation when appropriate. Thank you for allowing me to participate in the care of Olena. If you should have any qu estions regarding this evaluation, please do not hesitate to contact me. No notes on file Deni Hassan M.D. Ph.D. Radiation Oncologist Department of Radiation Oncology [facility] Office: [phone] signed by Deni Hassan MD at 08/08/2019 4:15 PM PDTdocumented in this encounter Plan of Treatment +--------+ + + + + | Date | Type | Specialty | Care Team | Description | +--------+ + + + + | 08/12/ | Appointment | Oncology | Elmer Silva | | | 2019 | | | MD [address] | | | | | | [place], [place] | | | | | | [address] | | | | | | | | +--------+ + + + + | 08/12/ | Hospital | Infusion Therapy | Elmer Silva | | | 2019 | Encounter | | Trip, [address] | | | | | | [place], [place] | | | | | | [address] | | | | | | | | +--------+ + + + + | 08/12/ | Appointment | Oncology | Lionel Benson | | | 2019 | | | Ze Unger [address] | | | | | | [address] [place] | | | | | | [place] [address] | | | | | | [phone] | | | | | | | | +--------+ + + + + | 08/19/ | Appointment | Oncology | Elmer Silva | | | 2019 | | | EMD [address] | | | | | | [place], [place] | | | | | | [address] | | | | | | | | +--------+ + + + + | 08/19/ | Appointment | Infusion Therapy | Elmer Silva | | | 2019 | | | EMD [address] | | | | | | [place] | | | | | | [address] | | | | | | | [...] [place] | | | | | | [address] | | | | | | | | +--------+ + + + + | 09/09/ | Appointment | Infusion Therapy | | | | 2019 | | | | | +--------+ + + + + | 09/16/ | Office | Oncology | Elmer Silva | | | 2019 | Visit | | EMD [address] | | | | | | [place] | | | | | | [address] | | | | | | | [...] [place] | | | | | | [id number] | | | | | | | [...] [place] | | | | | | [id number] | | | | | | | | +--------+ + + + + documented as of this encounter Procedures + +--------+ + + + | Procedure Name | Priori | Date/Time | Associated Diagnosis | Comments | | | ty | | | | + +--------+ + + + | PATHOLOGY - EXTERNAL | | 07/06/2019 | | Results for this | | SCAN | | 12:00 AM | | procedure are in the | | | | PDT | | results section. | + +--------+ + + + documented in this encounter Results PATHOLOGY - EXTERNAL SCAN (07/06/2019 12:00 AM PDT) [...]
--- OUTSIDE RECORDS SUMMARY | ~2020-08-08 | XMS | Encounter Summary ---
Demographics + + + | Address | [address] | | | [place] [address] | + + + | Home Phone | | + + + | Preferred Language | Unknown | + + + | Marital Status | Single | + + + | Roman Catholic Affiliation | Unknown | + + + | Race | White | + + + | Ethnic Group | Not or | + + + Author + + + | Author | [facility] | | | and [place] | + + + | Organization | [facility] | | | [...] Team Providers + +------+ + | Care Heavy Duty Truck Mechanic Name | Role | Phone | + +------+ + | Zuleyka Martínez | PCP | | + +------+ + Reason for Visit + +--------+ + | Reason | Onset | Comments | | | Date | | + +--------+ + | IDT Note | 03/13/ | | | | 2020 | | + +--------+ + Encounter Details +--------+ + + + + | Date | Type | Department | Care Team | Description | +--------+ + + + + | 03/13/ | Telephone | [facility] | Susie Montemayor | IDT Note | | 2019 | | [facility] RAD[facility] | MD Jared [address] | | | | | ONCOLOGY CLINIC [address] | [place], [place] | | | | | [facility] | [address] | | | | | [place] [address] | | | | | | [phone] | | | +--------+ + + + [...] Telephone Encounter - Abby Rodriguez RN - 03/13/2020 2:10 PM PDTFormatting of this no te might be different from the original. [facility] Interdisciplinary Team Navigational Checklist ? Top Priority Discipline EPIC Order Entered Consult Scheduled Consult Complete Comments: x *Medical Oncology Dr. Salazar x *Radiation Oncology Dr. Albina LITTLE 03/11/20 x *Patient Navigation *Nurse Navigator x *Social Service Survivorship Nurse Breast Health Genetics Surgical Input *Nursing assessment *Pharmacy assessment Nutrition Rehab: PT OT Speech & Language Palliative Care Clinical Trials Involvement Consulting Technical Director Visit Financial Assistance Interdisciplinary Consults Completed Date: documented in this encounter Plan of Treatment [...] [place] | | | | | | [address] | | | | | | | | +--------+ + + + + | 08/12/ | Hospital | Infusion Therapy | Elmer Silva | | | 2019 | Encounter | | MD [address] | | | | | | [place], [place] | | | | | | [address] | | | | | | | | +--------+ + + + + | 08/12/ | Appointment | Oncology | Lionel Benson | | | 2019 | | | Cornel PharmCorky [address] | | | | | | [address] [place] | | | | | | [place] [address] | | | | | | [phone] | | | | | | | | +--------+ + + + + | 08/19/ | Appointment | Oncology | Elmer Silva | | 2019 | | | MD Trip [address] | | | | | | [place], [place] | | | | | | [address] | | | | | | | | +--------+ + + + + | 08/19/ | Appointment | Infusion Therapy | Elmer Silva | | | 2019 | | | MD [address] | | | | | | [place] | | | | | | [address] | | | | | | | [...] [place] | | | | | | [id number] | | | | | | | [...] [place] | | | | | | [address] | | | | | | | | +--------+ + + + + | 09/16/ | Appointment | Infusion Therapy | | | | 2019 | | | | | +--------+ + + + + | 09/23/ | Office | Oncology | Elmer Silva | | 2019 | Visit | | MD [address] | | | | | | [place] | | | | | | [address] | | | | | | | [...] [place] | | | | | | [id number] | | | | | | | | +--------+ + + + + documented as of this encounter Visit Diagnoses Not on filedocumented in this encounter"
--- OUTSIDE RECORDS SUMMARY | ~2020-08-08 | XMS | Encounter Summary ---
Demographics + + + | Address | [address] | | | [place] [address] | + + + | Home Phone [...] Author + + + | Author | [facility] | | | and [place] | + + + | Organization | [facility] | | [...] Team Providers + +------+ + | Care Aeronautical Project Engineer Name | Role | Phone | [...] + + | 03/11/ | Hospital | [facility] | Zuleyka Cota, | Malignant neoplasm | | 2018 | Encounter | MED CTR ULTRASOUND | MD [address] | of thyroid gland | | | | [address] | [address] [place], | ([facility]) | | | | [place], [place] | [place] [address] | | | | | [address] | [phone] | | | | | [phone] | | | | | | | [...] | | | | | | [place] | | | | | | [address] | | | | | | | | +--------+ + + + + | 08/12/ | Hospital | Infusion Therapy | Elmer Silva | | | 2019 | Encounter | | E, [address] | | | | | | [place] | | | | | | [address] | | | | | | | | +--------+ + + + + | 08/12/ | Appointment | Oncology | Lionel Benson | | 2019 | | | JZe [address] | | | | | | [address] [facility] | | | | | | [place] [address] | | | | | | [phone] | | | | | | | | +--------+ + + + + | 08/19/ | Appointment | Oncology | Elmer Silva | | | 2019 | | | E, [address] | | | | | | [place], [place] | | | | | | [address] | | | | | | | | +--------+ + + + + | 08/19/ | Appointment | Infusion Therapy | Elmer Silva | | | 2019 | | | E, [address] | | | | | | [place], [place] | | | | | | [address] | | | | | | | [...] [place] | | | | | | [address] | | | | | | | [...] [place] | | | | | | [address] | | | | | | | [...] [place] | | | | | | [address] | | | | | | | | +--------+ + + + + | 09/23/ | Appointment | Infusion Therapy | | | | 2019 | | | | | +--------+ + + + + | 11/22/ | Appointment | Radiation Oncology | Susie Montemayor | | | 2020 | | | MD Jared [address] | | | | | | [place] [facility] [place] | | | | | | [address] | | | | | | | [...]
--- OUTSIDE RECORDS SUMMARY | ~2020-08-08 | XMS | Encounter Summary ---
Demographics + + + | Address | [address] | | | [place] [address] | + + + | Home Phone | | + + + | Preferred Language | Unknown | + + + | Marital Status | Single | + + + | Nondenominational Affiliation | Unknown | + + + | Race | White | + + + | Ethnic Group | Not or | + + + Author + + + | Author | [facility] | | | and [place] | + + + | Organization | [facility] | | | and [...] Team Providers + +------+ + | Care Damaged Freight Inspector Name | Role | Phone | + [...] | | | lung (HCC) | [address] | | | | | Procedures | [place], | [place] | | | | | [address] | [place] | [address] Phone: | | | | | | [address] | [phone] | | | | | | Phone: | Fax: | | | | | | [phone] | [phone] | | | | | | Fax: | | | | | | | [phone] | | +--------+--------+ + + + + Encounter Details +--------+ + + + + | Date | Type | Department | Care Team | Description | +--------+ + + + + | 08/23/ | Hospital | [facility] | Milton Salazar | Non-small cell | | 2018 | Encounter | [facility] | MD [address] | cancer of right lung | | | | [facility] CLIN[facility] [address] | [address] [place] | (HCC) (Primary Dx) | | | | [address] [place] | [place] [address] | | | | | [place] [address] | [phone] | | | | | [phone] | | | +--------+ + + + [...] + + + | Blood Pressure | 131/91 | 08/23/2018 3:22 PM | | | | | PDT | | + + + + + | Pulse | 103 | 08/23/2018 3:22 PM | | | | | PDT | | + + + + + | Temperature | 36.7 C (98 F) | 08/23/2018 3:22 PM | | | | | PDT | | + + + + + | Respiratory Rate | 16 | 08/23/2018 3:22 PM | | | | | PDT | | + + + + + | Oxygen Saturation | 100% | 08/23/2018 3:22 PM | | | | | PDT | | + + + + + | Inhaled Oxygen | - | - | | | Concentration | | | | + + + + + | Weight | 88.6 kg (195 lb 5.2 | 08/23/2018 3:22 PM | | | | oz) | PDT | | + + + + + | Height | - | - | | + + + + + | Body Mass Index | 29.7 | 11/04/2016 9:00 AM | | | [...] encounter Progress Notes Milton Salazar MD - 08/23/2018 3:41 PM PDTFormatting of this note might be diff erent from the original. Hem-Onc Progress Note [facility] Pt. Name/Age/: Olena Rider 57 y.o. 1960 [facility]. Record Number: [id number] Date of admission: 08/23/2018 Assessment and plan: 1. Non-small cell lung [...] A counseling session today first to review the results of a CT scan of the chest, abdomen a nd pelvis with images that I was able to personally view paying particular attention to the left lower quadrant region of the scan in the pelvis. No abnormalities to help understand p atient's pain such as hernia formation or pelvic pathology. Above the diaphragm there does not appear to be any signs to suggest recurrence of disease. If thus remains unclear as to the origin of patient's left inguinal and groin pain. We sug gested the possibility of a small subclinical hernia that might be manifest that would be di fficult to detect. 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 The time being h owever no additional studies recommended and instead patient to continue on current program of added fiber to diet to help regulate GI tract. We also reassured patient with regard to earlier finding of adrenal adenoma that this study was able to identify noting it's unchangi ng dimension. Subjective: The patient chart and medications were reviewed in detail and the patient was seen and exam ined. Olena Rider is a 57 y.o. female returns today for report concerning restaging evalua tion and diagnostic evaluation because of left lower quadrant and left inguinal pain of ken ral weeks duration. Patient seen earlier last week with unremitting least severe and persistent left groin disc omfort. Physical exam findings then essentially negative but patient's previous history of irregular bowel movements raising question of possible diverticulitis. Patient has not briceno belen having other lower GI symptoms or symptoms of bleeding or having any effect on her jan l oral intake of food or constitutional symptoms such as temperature elevation or chills. P monique has been in remission from lung cancer for over the past year since the time of VATS lobectomy in the spring of 2016. PSH: Reviewed, no changes to admission H&P. Past Medical History: Diagnosis Date Anxiety Insomnia Malignant neoplasm of thyroid gland (HCC) PONV (postoperative nausea and vomiting) Review of Systems: Constitutional: Unchanged fatigue. Denies high fevers, shaking chills, anorexia, nausea, vo miting, weight loss, or night sweats. Appetite without changes. Ear, Nose, Mouth, Throat: Denies odynophagia, or tinnitus. Feels like food gets stuck in m y throat and it makes it hard to eat much. Dysphagia continues, unchanged supposed to see he r alarm technician in November. Cardiovascular: Denies chest pain, palpitations or orthopnea. State sshortness of breath , dyspnea on exertion. Respiratory: Denies cough, hemoptysis, or sputum production. [...] skin concerns. Pain: L/groin pain at a 6/10. Managed per pt poorly with Tylenol and Ibuprofen. Tolerab le pain level:4>/10. Pain can get up to a 10/10~pain is described as an constant intense p ain. Review of systems as above otherwise negative [...] on file prior to encounter. Objectives: Temp: 36.7 C (98 F) BP: (!) 131/91 Pulse: 103 Resp: 16 SpO2: 100 % on Min/Max Temp past 24 hours:Temp Av.7 C (98 F) Min: 36.7 C (98 F) Max: 36.7 C (98 F) No intake or output data in the 24 hours ending 08/23/18 1541 Wt. Admission: Weight: 88.6 kg (195 lb 5.2 oz) Wt. Current: Weight: 88.6 kg (195 lb 5.2 oz) Physical Exam: Exam: General: The patient is alert and oriented. No acute distress. Genitourinary: No signs of femoral or inguinal hernia.. Extremities: Nontender, no erythema, no edema. Skin: No rashes, bruising, or petechiae. Lymph: No palpable nodes in the neck, supraclavicular fossa, axilla or groin. Neurological: Cranial nerves are intact. Normal sensory and motor function, No focal defi cits noted. Muscular/Skeletal: No acute bony tenderness. Psychiatric: Normal mood and affect. Diagnostic studies: CT CHEST ABDOMEN PELVIS W CONTRAST 08/18/2018 12:07 PM HISTORY: New left lower quadrant pain of severe degree; history of lung cancer. COMPARISON: Multiple priors most recently dated 03/11/2018 PROTOCOL: Axial images of the chest, abdomen, and pelvis were obtained after uneventful administration of 90 mL Omnipaque 350. Coronal and sagittal reformations were acquired. CHEST FINDINGS: LUNGS: Mild bibasilar scarring. Stable left medial lower lobe pleural bleb. No evidence of pneumothorax or pleural effusion. Stable post surgical changes related to prior right lower lobectomy. No suspicious mass or nodule. HEART: The heart is of normal size. VASCULATURE: Aorta is normal in size and without evidence of dissection or aneurysmal dilation. Mild aortic calcification. The pulmonary arteries are unremarkable. Visualized venous structures are patent. LYMPH NODES: No evidence of axillary, mediastinal, or hilar lymphadenopathy. MEDIASTINUM: Trachea and esophagus are normal. Neck base is normal. SOFT TISSUES: Chest wall structures are normal. BONES: There are no acute osseous abnormalities. Stable slight hazy sclerosis along the posterior aspect of the L1 vertebral body. ABDOMEN FINDINGS: HEPATOBILIARY: Stable appearance of multiple subcentimeter hypodensities within both hepatic lobes, unchanged since 01/02/2016. No suspicious new hepatic mass. The gallbladder is normal. No evidence of intrahepatic or extrahepatic biliary ductal dilatation. SPLEEN: Normal parenchyma. No evidence of mass or splenomegaly. PANCREASE: Normal parenchyma. No evidence of pancreatic ductal dilation. ADRENAL GLANDS: Stable left adrenal adenoma measuring 10 mm. KIDNEYS: Bilateral kidneys are without evidence of suspicious mass, calculus, or hydronephrosis. Stable appearance of multiple bilateral subcentimeter lesions likely representing a benign simple cyst. BOWEL: The stomach is normal. Imaged small bowel and colon demonstrate no acute findings. No evidence of dilatation to suggest obstruction or abnormal bowel wall thickening. Anastomotic sutures seen near the level of the ileocecal valve. VASCULATURE: Aorta is nonaneurysmal and without evidence of dissection. Similar surgical clips versus calcifications along the anterior/superficial aspects of bilateral external iliac arteries. Scattered mild atherosclerosis. LYMPH NODES: No enlarged lymph nodes are visualized within the omentum or retroperitoneum. PERITONEUM: There is no evidence for free fluid or free air. BLADDER: Unremarkable. REPRODUCTIVE: Uterus is not visualized. SOFT TISSUES: Small right para midline fat-containing ventral abdominal wall hernia. BONES: There are no acute osseous abnormalities. Degenerative changes of the lower lumbar facets. No suspicious new area of sclerosis or lucency. Stable mildly sclerotic foci are seen within bilateral femoral necks within the L1 vertebral body. IMPRESSION - No evidence for a new chest mass or lymphadenopathy to suggest metastatic disease. Stable appearance of a few faintly sclerotic bone lesions when compared to 2016. Other chronic findings as detailed above. Dictated and Signed by: Chai Nguyen MD Electronically signed: 08/18/2018 1:56 PM Electronically signed by: Milton Salazar, 08/23/2018 15:41 [facility] TIME SPENT 25 MIN. > 50% AT BEDSIDE, WITH FAMILY/PATIENT IN CARE AND METAL DRAWER ON UNIT AND CO ORDINATION OF CARE Portions of this chart may have been created with [employer] voice recognition software. Occasi onal wrong-word or sound-alike substitutions may have occurred due to the inherent cervantes itations of voice recognition software. Please read the chart carefully and recognize, using context, where these substitutions have occurred. Amanda Wagner CMA - 08/23/2018 3:25 PM PDTREShotlst O F SYSTEMS Constitutional: Unchanged fatigue. Denies high fevers, shaking chills, anorexia, nausea, vo miting, weight loss, or night sweats. Appetite without changes. Ear, Nose, Mouth, Throat: Denies odynophagia, or tinnitus. Feels like food gets stuck in m y throat and it makes it hard to eat much. Dysphagia continues, unchanged supposed to see he r alarm technician in November. Cardiovascular: Denies chest pain, palpitations or orthopnea. State s shortness of breath, dyspnea on exertion. Respiratory: Denies cough, hemoptysis, or sputum production. [...] skin concerns. Pain: L/groin pain at a 6/10. Managed per pt poorly with Tylenol and Ibuprofen. Tolerable pain level:4>/10. Pain can get up to a 10/10~pain is described as an constant intense pain . Note: Pt is here to review CT and labs My chart: Declined documented in this encounter Plan of Treatment +--------+ + + + + | Date | Type | Specialty | Care Team | Description | +--------+ + + + + | 08/12/ | Appointment | Oncology | Elmer Silva | | | 2019 | | | MD [address] | | | | | | [place] | | | | | | [address] | | | | | | | | +--------+ + + + + | 08/12/ | Hospital | Infusion Therapy | Elmer Silva | | | 2019 | Encounter | | MD [address] | | | | | | [place] | | | | | | [address] | | | | | | | | +--------+ + + + + | 08/12/ | Appointment | Oncology | Lionel Benson | | 2019 | | | J, PharmD [address] | | | | | | [address] [place] | | | | | | [place] [address] | | | | | | [phone] | | | | | | | | +--------+ + + + + | 08/19/ | Appointment | Oncology | Elmer Silva | | | 2019 | | | EMD [address] | | | | | | [place], [place] | | | | | | [address] | | | | | | | | +--------+ + + + + | 08/19/ | Appointment | Infusion Therapy | Elmer Silva | | | 2019 | | | EMD [address] | | | | | | [address] [place], [place] | | | | | | [address] | | | | | | | [...] [place] | | | | | | [address] | | | | | | | [...] [place] | | | | | | [address] | | | | | | | [...] [place] | | | | | | [address] | | | | | | | [...] | | | | | | [place] | | | | | | [address] | | | | | | | | +--------+ + + + + documented as of this encounter Visit Diagnoses + + | Diagnosis | + + | Non-small cell cancer of right lung (HCC) - Primary | + + documented in this encounter
--- OUTSIDE RECORDS SUMMARY | ~2020-08-08 | XMS | Encounter Summary ---
Demographics + + + | Address | [address] | | | [place] [address] | + + + | Home Phone [...] Team Providers + +------+ + | Care Investment Underwriter Name | Role | Phone | + +------+ + | Zuleyka Martínez | PCP | | + +------+ + Encounter Details +--------+ + + + + | Date | Type | Department | Care Team | Description | +--------+ + + + + | 07/29/ | Orders Only | [facility] | Susie Montemayor | | | 2019 | | [facility] | MD Jared [address] | | | | | [facility] [address] | [place], [place] | | | | | [address] [place] | [address] | | | | | [place] [address] | | | | | | [phone] | | | +--------+ + + + [...] [place] | | | | | | [address] | | | | | | | | +--------+ + + + + | 08/12/ | Hospital | Infusion Therapy | Elmer Silva | | | 2019 | Encounter | | MD [address]az[address] Domin[address] | | | | | | [place] | | | | | | [address] | | | | | | | | +--------+ + + + + | 08/12/ | Appointment | Oncology | Lionel Benson | | 2019 | | | Ze Unger [address] | | | | | | [address] [place] | | | | | | [place] [address] | | | | | | [phone] | | | | | | | | +--------+ + + + + | 08/19/ | Appointment | Oncology | Elmer Silva | | | 2019 | | | E, [address] | | | | | | [place], [place] | | | | | | [address] | | | | | | | | +--------+ + + + + | 08/19/ | Appointment | Infusion Therapy | Elmer Silva | | | 2019 | | | E, [address] | | | | | [place], [place] | | | | | | [address] | | | | | | | [...] [place] | | | | | | [address] | | | | | | | [...] [place] | | | | | | [address] | | | | | | | [...] [place] | | | | | | [address] | | | | | | | [...] [place] | | | | | | [address] | | | | | | | | +--------+ + + + + documented as of this encounter Visit Diagnoses Not on filedocumented in this encounter"
--- OUTSIDE RECORDS SUMMARY | ~2020-08-08 | XMS | Encounter Summary ---
Demographics + + + | Address | [address] | | | [place] [address] | + + + | Home Phone [...] Author + + + | Author | [facility] | | | and [place] | + + + | Organization | [facility] | [...] Team Providers + +------+ + | Care General Expeditor Name | Role | Phone | + [...] Closed | | Radiology | Diagnoses | [place], | [address] | | | | | Cancer of | Luis Felipe Hamilton Jr., | [address] [place] | | | | | lower lobe | MD [address] | [place], | | | | | of right | [address] | [place] [address] | | | | | lung (HCC) | [address] F[address] | Phone: | | | | | Procedures | [place], [place] | [phone] | | | | | CT Chest wo | [address] | Fax: | | | | | Contrast | Phone: | [phone] | | | | | | [phone] | | | | | | | Fax: | | | | | | | [phone] | | +--------+--------+ + + + + Reason for Visit Diagnostic/Screening (Routine) +--------+--------+ + + + + | Status | Reason | Specialty | Diagnoses / | Referred By | Referred To | | | | | Procedures | Contact | Contact | +--------+--------+ + + + + | Closed | | Radiology | Diagnoses | [place], | [address] | | | | | Cancer of | Luis Felipe Hamilton Jr., | [address] [place] | | | | | lower lobe | [address] | [place], | | | | | of right | [address] | [place] [address] | | | | | lung (HCC) | [address] FLR | Phone: | | | | | Procedures | [place], [place] | [phone] | | | | | CT Chest wo | [address] | Fax: | | | | | Contrast | Phone: | [phone] | | | | | | [phone] | | | | | | | Fax: | | | | | | | [phone] | | +--------+--------+ + + + + Encounter Details +--------+ + + + + | Date | Type | Department | Care Team | Description | +--------+ + + + + | 04/16/ | Hospital | [facility] | Luis Felipe Mon Jr., | Cancer of lower lobe | | 2017 | Encounter | [facility] [address] | [address] | of right lung (HCC) | | | | [place], | [address] | | | | | [place] [address] | [place] [address] | | | | | [phone] | [phone] | | | | | | | [...] | | | | | | [place], [place] | | | | | | [address] | | | | | | | | +--------+ + + + + | 08/12/ | Hospital | Infusion Therapy | Elmer Silva | | | 2019 | Encounter | | E, [address] | | | | | | [place], [place] | | | | | | [address] | | | | | | | | +--------+ + + + + | 08/12/ | Appointment | Oncology | Lionel Benson | | | 2019 | | | J, Ze [address] | | | | | | [address] [place] | | | | | | [place] [address] | | | | | | [phone] | | | | | | | | +--------+ + + + + | 08/19/ | Appointment | Oncology | Elmer Silva | | | 2019 | | | E, [address] | | | | | | [place], [place] | | | | | | [address] | | | | | | | | +--------+ + + + + | 08/19/ | Appointment | Infusion Therapy | Elmer Silva | | | 2019 | | | E, [address] | | | | | [address] [place], [place] | | | | | | [address] | | | | | | | [...] [place] | | | | | | [address] | | | | | | | [...] [place] | | | | | | [address] | | | | | | | [...] [place] | | | | | | [address] | | | | | | | [...] [place] | | | | | | [address] | | | | | | | | +--------+ + + + + documented as of this encounter Procedures + +--------+ + + + | Procedure Name | Priori | Date/Time | Associated Diagnosis | Comments | | | ty | | | | + +--------+ + + + | CT CHEST WO CONTRAST | Routin | 04/16/2017 | Cancer of lower | Results for this | | | e | 9:54 AM | lobe of right lung | procedure are in the | | | | PDT | (HCC) | results section. | + +--------+ + + + documented in this encounter Results CT Chest wo Contrast (04/16/2017 9:54 AM PDT) + + | Specimen | + + | | + + + + + | Narrative | Performed At | + + + | TECHNIQUE: Noncontrast axial CT imaging was obtained through the | [facility] | | chest with coronal and sagittal reformats. CLINICAL INFORMATION: | | | Cancer of lower lobe of right lung COMPARISON: CT dated 11/05/2016, | | | 11/04/2016, 09/23/2016, and PET/CT 06/17/2016. FINDINGS: BONES: No | | | osteoblastic or osteolytic lesion. CHEST: Chest Wall: Normal. | | | Mediastinum and sailaja: Right posterior inferior hilar region surgical | | | changes. No mediastinal or hilar lymphadenopathy appreciated on this | | | noncontrast CT of the chest. Heart and pericardium: Heart size is | | | normal. No pericardial effusion. Vessels: 3 vessel arch with | | | scattered mild vascular calcifications. Pleura: Loculated small | | | medial right lung base pleural effusion. No pneumothorax. Lungs: | | | Diffuse emphysematous changes. Right upper lobe: No nodule or mass | | | lesion. Right middle lobe: No nodule or mass lesion. Mild | | | scarring/atelectasis at the lung base. Right lower lobe: Lobectomy. | | | Left upper lobe: Stable 3 mm lingular nodule, image 87. Left lower | | | lobe: No nodule or mass lesion. Infrahilar bulla. UPPER ABDOMEN: | | | Stable left adrenal adenoma. IMPRESSION - Right lower | | | lobectomy changes without evidence of mediastinal lymphadenopathy or | | | new pulmonary nodules to suggest metastasis. Small medial right | | | lung base loculated pleural effusion, likely postoperative change. | | | Emphysematous changes. Dictated and Signed by: Miko Ramsey | | | Electronically signed: 04/16/2017 2:55 PM | | + + + + + | Procedure Note | + + | Christopher, Rad Results In - 04/16/2017 2:58 PM PDT | | TECHNIQUE: Noncontrast axial CT imaging was obtained through the chest with | | coronal and sagittal reformats. | | | | CLINICAL INFORMATION: Cancer of lower lobe of right lung | | | | COMPARISON: CT dated 11/05/2016, 11/04/2016, 09/23/2016, and PET/CT 06/17/2016. | | | | FINDINGS: | | BONES: No osteoblastic or osteolytic lesion. | | | | CHEST: | | Chest Wall: Normal. | | | | Mediastinum and sailaja: Right posterior inferior hilar region surgical changes. No | | mediastinal or hilar lymphadenopathy appreciated on this noncontrast CT of the | | chest. | | Heart and pericardium: Heart size is normal. No pericardial effusion. | | Vessels: 3 vessel arch with scattered mild vascular calcifications. | | Pleura: Loculated small medial right lung base pleural effusion. No | | pneumothorax. | | | | Lungs: | | Diffuse emphysematous changes. | | Right upper lobe: No nodule or mass lesion. | | Right middle lobe: No nodule or mass lesion. Mild scarring/atelectasis at the | | lung base. | | Right lower lobe: Lobectomy. | | Left upper lobe: Stable 3 mm lingular nodule, image 87. | | Left lower lobe: No nodule or mass lesion. Infrahilar bulla. | | | | UPPER ABDOMEN: Stable left adrenal adenoma. | | | | | | IMPRESSION - | | | | Right lower lobectomy changes without evidence of mediastinal lymphadenopathy or | | new pulmonary nodules to suggest metastasis. | | | | Small medial right lung base loculated pleural effusion, likely postoperative | | change. | | | | Emphysematous changes. | | | | Dictated and Signed by: Miko Ramsey MD | | Electronically signed: 04/16/2017 2:55 PM | + + + +---------+ + + | Performing | Address | City/State/Zipcode | Phone Number | | Organization | | | | + +---------+ + + | [facility] | | | | + +---------+ + + documented in this encounter Visit Diagnoses + + | Diagnosis | + + | Cancer of lower lobe of right lung (HCC) | + + documented in this encounter"
--- OUTSIDE RECORDS SUMMARY | ~2020-08-08 | XMS | Encounter Summary ---
Demographics + + + | Address | [address] | | | [place] [address] | + + + | Home Phone | | + + + | Preferred Language | Unknown | + + + | Marital Status | Single | + + + | Catholic Affiliation | Unknown | + + [...] Team Providers + +------+ + | Care Engineering Program Manager Name | Role | Phone [...] | neoplasm of | [place] | [address] | | | | | unspecified | MD Bebeto | [place], | | | | | part of | [address] | [place] [address] | | | | | right | [place] | Phone: | | | | | bronchus or | [place], [place] | [phone] | | | | | lung (HCC) | [address] | Fax: | | | | | Procedures | Phone: | [phone] | | | | | ME VITAMIN | [phone] | | | | | | B12 | Fax: | | | | | | INJECTION, | [phone] | | | | | | [address] | | | | | | | ONDANSETRON | | | | | | | HCL | | | | | | | INJECTION, 1 | | | | | | | MG ME | | | | | | | DEXAMETHASON | | | | | | | E SODIUM | | | | | | | PHOS, 1 MG | | | | | | | ME | | | | | | | FOSAPREPITAN | | | | | | | T INJECTION, | | | | | | | 1 MG ME IV | | | | | | | INFUSION, | | | | | | | HYDRATION, | | | | | | | 31-60 MIN | | | | | | | ME IV | | | | | | | INFUSION, | | | | | | | HYDRATION, | | | | | | | EA ADD HOUR | | | | | | | ME | | | | | | | PEMETREXED | | | | | | | INJECTION, | | | | | | | 10 MG ME | | | | | | | CISPLATIN 10 | | | | | | | MG | | | | | | | INJECTION | | | | | | | ME | | | | | | | DIPHENHYDRAM | | | | | | | INE HCL | | | | | | | INJECTIO, 50 | | | | | | | MG ME | | | | | | | ALBUTEROL | | | | | | | COMP CON, 1 | | | | | | | MG ME | | | | | | | ALBUTEROL | | | | | | | NON-COMP | | | | | | | CON, 1 MG | | | | | | | ME | | | | | | | METHYLPREDNI | | | | | | | SOLONE | | | | | | | INJECTION, | | | | | | | 125 MG ME | | | | | | | INJECTION, | | | | | | | FAMOTIDINE, | | | | | | | 20 MG ME | | | | | | | NORMAL | | | | | | | SALINE | | | | | | | SOLUTION | | | | | | | INFUS, 500 | | | | | | | ML ME | | | | | | | NORMAL | | | | | | | SALINE | | | | | | | SOLUTION | | | | | | | INFUS, 250 | | | | | | | ML ME | | | | | | | STERILE | | | | | | | WATER/SALINE | | | | | | | , 10 ML ME | | | | | | | CHEMOTHER, | | | | | | | IV PUSH,EA | | | | | | | ADD DRUG ME | | | | | | | CHEMOTHER, | | | | | | | IV INFUSION, | | | | | | | 1 HR ME | | | | | | | CHEMOTHER, | | | | | | | IV INFUSION, | | | | | | | EA HR ME | | | | | | | CHEMOTHER,NO | | | | | | | N-HORMONE | | | | | | | ANTI-NEOPL, | | | | | | | SUB-Q/IM ME | | | | | | | CHEMOTHER | | | | | | | HORMON | | | | | | | ANTINEOPL | | | | | | | SUB-Q/IM ME | | | | | | | | | | | | | | PALONOSETRON | | | | | | | HCL, 25 MCG | | | | | | | ME | | | | | | | CARBOPLATIN | | | | | | | INJECTION, | | | | | | | 50 MG | | | +--------+--------+ + + + + Encounter Details +--------+ + + + + | Date | Type | Department | Care Team | Description | +--------+ + + + + | 04/02/ | Hospital | [facility] | Milton Salazar | 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 Bebeto [address] | cancer of right lung | | | | INFUSION [address] [place] | (HCC) | | | | [place], | [place] [address] | | | | | [place] [address] | [phone] | | | | | [phone] | | | +--------+ + + + [...] documented as of this encounter Progress Notes Lucille Muñoz RN - 04/02/2017 12:36 PM PDTPatient discharged in satisfactory conditi on. Discharged ambulatory. With family. To home. Verified that patient has antinausea medications at home. Future appointments and After Visit Summary (AVS) provided. documented in thi s encounter Miscellaneous Notes Treatment Plan - Catherine Payne RN - 04/02/2017 10:17 AM PDTViewed chart for weight, v ital signs and lab results. Also viewed chart for completion of medication and allergy revi ew prior to treatment.Catherine Bay RNDATE/TIME: 04/02/2017 10:18 documented in this encounter Plan of Treatment +--------+ + + + + | Date | Type | Specialty | Care Team | Description | +--------+ + + + + | 08/12/ | Appointment | Oncology | Elmer Silva | | | 2019 | | | MD Lazaro Dominique | | | | | | [place] | | | | | | [address] | | | | | | | | +--------+ + + + + | 08/12/ | Hospital | Infusion Therapy | Elmer Silva | | | 2019 | Encounter | | MD Lazaro Dominique | | | | | | [place] | | | | | | [address] | | | | | | | | +--------+ + + + + | 08/12/ | Appointment | Oncology | Lionel Benson | | | 2019 | | | JZe [address] | | | | | | [address] [place] | | | | | | [place] [address] | | | | | | [phone] | | | | | | | | +--------+ + + + + | 08/19/ | Appointment | Oncology | Elmer Silva | | 2019 | | | Trip, MD [address] | | | | | | ST [place], [place] | | | | | | [address] | | | | | | | | +--------+ + + + + | 08/19/ | Appointment | Infusion Therapy | Elmer Silva | | | 2019 | | | E, [address] | | | | | | ST [place] [facility], [place] | | | | | | [address] | | | | | | | [...] [place] | | | | | | [address] | | | | | | | | +--------+ + + + + | 09/09/ | Appointment | Infusion Therapy | | | | 2019 | | | | | +--------+ + + + + | 09/16/ | Office | Oncology | Elmer Silva | | | 2019 | Visit | | E, [address] | | | | | | [place] | | | | | | [address] | | | | | | | | +--------+ + + + + | 09/16/ | Appointment | Infusion Therapy | | | | 2019 | | | | | +--------+ + + + + | 09/23/ | Office | Oncology | Elmer Silva | | | 2019 | Visit | | E, [address] | | | | | | [place] | | | | | | [address] | | | | | | | [...] [place] | | | | | | [address] | | | | | | | [...] + +---------+ + +-------+------+ | CARBOplatin (PARAPLATIN) 718.8 | New Bag | 04/02/20 | 718.8 mg | 500 | | | mg in sodium chloride 0.9% 428.12 | | 17 11:34 | | mL/hr | | | mL chemo infusion 718.8 mg | | AM PDT | | | | | (Target AUC = 6), Intravenous, | | | | | | | Administer over 60 Minutes, ONCE, | | | | | | | 04/02/17 at 1130, For 1 dose, | | | | | | | Chemotherapy: Use appropriate | | | | | | | handling precautions., | | | | | | + +---------+ + +-------+------+ +---+---+ | | | +---+---+ + +---------+ +--------+-------+---+ | fosaprepitant (EMEND) 150 mg in | New Bag | 04/02/20 | 150 mg | 450 | | | sodium chloride 0.9% 150 mL IVPB | | 17 10:58 | | mL/hr | | | 150 mg, Intravenous, Administer | | AM PDT | | | | | over 20 Minutes, ONCE, Fri | | | | | | | 04/02/17 at 1100, For 1 dose, Do | | | | | | | not shake bag. Administer prior | | | | | | | to chemotherapy., | | | | | | + +---------+ +--------+-------+---+ +---+---+ | | | +---+---+ + +---------+ +---+--------+---+ | palonosetron (ALOXI) 0.25 mg, | New Bag | 04/02/20 | | 209.3 | | | dexamethasone (DECADRON) 8 mg in | | 17 10:40 | | mL/hr | | | sodium chloride 0.9% 50 mL IVPB | | AM PDT | | | | | Intravenous, Administer over 16 | | | | | | | Minutes, ONCE, Wed04/02/17 at | | | | | | | 1045, For 1 dose | | | | | | + +---------+ +---+--------+---+ +---+---+ | | | +---+---+ + +-------+ + +-------+---+ | PEMEtrexed (ALIMTA) 1,000 mg in | Given | 04/02/20 | 1,000 mg | 600 | | | sodium chloride 0.9% 100 mL | | 17 11:22 | | mL/hr | | | chemo infusion 1,000 mg, | | AM PDT | | | | | Intravenous, Administer over 10 | | | | | | | Minutes, ONCE, Wed04/02/17 at | | | | | | | 1115, For 1 dose, 500 mg/m2= 1025 | [...]
--- OUTSIDE RECORDS SUMMARY | ~2020-08-08 | XMS | Encounter Summary ---
Demographics + + + | Address | [address] | | | [place] [address] | + + + | Home Phone | | + + + | Preferred Language | Unknown | + + + | Marital Status | Single | + + + | Rastafarian Affiliation | Unknown | + + + [...] | + + +---------+ + | Oksana Vitlae | ECON | Unknown | | + + +---------+ + Care Team Providers + +------+ + | Care Mannequin Mounter Name | Role | Phone | + +------+ + | Zuleyka Martínez | PCP | | + +------+ + Encounter Details +--------+ + + + + | Date | Type | Department | Care Team | Description | +--------+ + + + + | 08/02/ | Documentati | [facility] | Susie Montemayor | | | 2020 | on | MED [facility] RAD[facility]ATION | MD Jared [address] | | | | | [facility]OGY CLIN[facility] [address] | [place], [place] | | | | | [address] [place] | [address] | | | | | [place] [address] | | | | | | [phone] | | | +--------+ + + + [...] [place] | | | | | | [address] | | | | | | | | +--------+ + + + + | 08/12/ | Hospital | Infusion Therapy | Elmer Silva | | | 2019 | Encounter | | MD [address]az[address] Domin[address] | | | | | | [place] | | | | | | [address] | | | | | | | | +--------+ + + + + | 08/12/ | Appointment | Oncology | Lionel Benson | | 2019 | | | [address] | | | | | | [address] [place] | | | | | | [place] [address] | | | | | | [phone] | | | | | | | | +--------+ + + + + | 08/19/ | Appointment | Oncology | Elmer Silva | | | 2019 | | | E, [address] | | | | | | [place], [place] | | | | | | [address] | | | | | | | | +--------+ + + + + | 08/19/ | Appointment | Infusion Therapy | Elmer Silva | | | 2019 | | | E, [address] | | | | | | [place], [place] | | | | | | [address] | | | | | | | [...] [place] | | | | | | [address] | | | | | | | [...] [place] | | | | | | [address] | | | | | | | [...] [place] | | | | | | [address] | | | | | | | [...] | | | | | | [facility] [place] | | | | | | [address] | | | | | | | | +--------+ + + + + documented as of this encounter Visit Diagnoses + + | Diagnosis | + + | 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
--- OUTSIDE RECORDS SUMMARY | ~2020-08-08 | XMS | Encounter Summary ---
Demographics + + + | Address | [address] | | | [place] [address] | + + + | Home Phone [...] Team Providers + +------+ + | Care Commercial Kitchen Service Technician Name | Role | Phone | + +------+ + | Zuleyka Martínez | PCP | | + +------+ + Reason for Visit + +--------+ + | Reason | Onset | Comments | | | Date | | + +--------+ + | Medication Refill | 07/29/ | | | | 2020 | | + +--------+ + Encounter Details +--------+ + + + + | Date | Type | Department | Care Team | Description | +--------+ + + + + | 07/29/ | Telephone | [facility] | Susie Montemayor | Medication Refill | | 2020 | | MED CTR RADIATION | MD Jared [address] | | | | | ONCOLOGY CLINIC [address] | [place], [place] | | | | | [facility] | [address] | | | | | [place] [address] | | | | | | [phone] | | | +--------+ + + + [...] Telephone Encounter - Azucena Ritchie RN - 07/30/2020 1:46 PM PDTPatient notified that th is RX has been sent. Telephone Encounter - Azucena Ritchie RN - 07/29/2020 10:02 AM PDTPatient is requesting a n ew prescription be sent to [facility] [place] with new dose of oxycodne. She was verbally instructed that she can take oxycodone 5 mg two tablets every 6 hours for the pain. she is not out currently but will need to have this updated with [facility] so she can pick this up so axel. documented in t his encounter Plan of Treatment +--------+ + + + + | Date | Type | Specialty | Care Team | Description | +--------+ + + + + | 08/12/ | Appointment | Oncology | Elmer Silva | | | 2019 | | | E, [address] | | | | | | [place] | | | | | | [address] | | | | | | | | +--------+ + + + + | 08/12/ | Hospital | Infusion Therapy | Elmer Silva | | | 2019 | Encounter | | E, [address] | | | | | | [place] | | | | | | [address] | | | | | | | | +--------+ + + + + | 08/12/ | Appointment | Oncology | Lionel Benson | | 2019 | | | [address] | | | | | | [address] [facility] | | | | | | [place] [address] | | | | | | [phone] | | | | | | | | +--------+ + + + + | 08/19/ | Appointment | Oncology | Elmer Silva | | 2019 | | | E, [address] | | | | | | [place], [place] | | | | | | [address] | | | | | | | | +--------+ + + + + | 08/19/ | Appointment | Infusion Therapy | Elmer Silva | | | 2019 | | | E, [address] | | | | | | ST [place], [place] | | | | | | [address] | | | | | | | [...] 09/09/ | Office | Oncology | Elmer Sliva | | | 2019 | Visit | | MD Lazaro Dominique | | | | | | [place] | | | | | | [address] | | | | | | | [...] [place] | | | | | | [address] | | | | | | | [...] [place] | | | | | | [address] | | | | | | | | +--------+ + + + + | 09/23/ | Appointment | Infusion Therapy | | | | 2019 | | | | | +--------+ + + + + | 01/22/ | Appointment | Radiation Oncology | Susie Montemayor | | | 2020 | | | MD [address]az[address] | | | | | | [place] | | | | | | [address] | | | | | | | | +--------+ + + + + documented as of this encounter Visit Diagnoses Not on filedocumented in this encounter"
--- OUTSIDE RECORDS SUMMARY | ~2020-08-08 | XMS | Encounter Summary ---
Demographics + + + | Address | [address] | | | [place] [address] | + + + | Home Phone [...] + + + | Author | [facility] | | | and [place] | + + + | Organization | [facility] | | | and [...] Team Providers + +------+ + | Care Installation Manager Name | Role | Phone | [...] + + | Closed | Specialty | Cardiothoraci | Diagnoses | [facility] | Luis Felipe Mon | | | Services | c Surgery | Lung nodule | Radiation | Alfonso Watts MD | | | Required | | | Oncology | [address] | | | | | | [address] | [address] | | | | | | [place] | [address] | | | | | | [facility] [place] | [place], [place] | | | | | | [address] | [address] Phone: | | | | | | Phone: | [phone] | | | | | | [phone] | Fax: | | | | | | Fax: | [phone] | | | | | | [phone] | | +--------+ + + + + + Service/Procedure (Urgent) +--------+--------+ + + + + | Status | Reason | Specialty | Diagnoses / | Referred By | Referred To | | | | | Procedures | Contact | Contact | +--------+--------+ + + + + | Closed | | | Diagnoses | Albina | IVONNE GOOD | | | | | Lung nodule | Susie Coleman, | ALEKSANDR | | | | | Procedures | MD Lazaro Morales | MEDICAL | | | | | Pulmonary | [address] | [address] | | | | | function | [place], | [address] | | | | | test | [place] [address] | [place], [place] | | | | | | Phone: | [address] | | | | | | [phone] | Phone: | | | | | | Fax: | [phone] | | | | | | [phone] | Fax: | | | | | | | [phone] | +--------+--------+ + + + + Encounter Details +--------+ + + + + | Date | Type | Department | Care Team | Description | +--------+ + + + + | 11/11/ | Hospital | [facility] | Susie Montemayor | Malignant neoplasm | | 2017 | Encounter | MED CTR RADIATION | MD Jared [address] | of thyroid gland | | | | ONCOLOGY [address] | [place], [place] | (HCC) (Primary Dx); | | | | [place], | [address] | Lung nodule | | | | [place] [address] | | | | | | [phone] | | | +--------+ + + + [...] encounter Progress Notes Susie Walker MD - 11/11/2016 12:00 AM [facility] Radiation Oncology Follow-up Note PATIENT: Olena Rider MR#: [id number] :1960 DOS:11/11/2016 ICD/Diagnosis: C73 - Malignant neoplasm of thyroid gland, Diagnosed 09/2016 (Active) Chief Complaint/History of Present Illness: Olena Rider is a 56 year-old woman recently diagnosed with Stage III, T1a N1a papil ronda thyroid cancer, bilateral, muiltifocal, larges in right lobe 1cm, positive margin, LVS I indeterminant and PNI present. Left lobe with 0.6 cm nodule, positive margin, LVSI and P NI present, 1/ small lymph node positive. Indeterminant right lower lobe pulmonary nodule with metabolic activity on PET/CT. Thyrogen stimulated radioactive Iodine-131 ablation on 10/14/16 with 100 mCi. Olena was last seen on 10/27/16 at which time we decided to pursue biopsy of the right lower lobe nodule. She underwent CT-guided biopsy on 11/04/16. This procedure was unfortuna tely complicated by pneumothorax requiring chest tube placement and hospitalization over co uple of days. She has since been discharged home in good condition. However she continues to report pain at the chest tube site. 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 During her hospitalization she underwent a CT angiogram on 11/05/16 due to significant pain from the chest tube and concern for pulmonary embolism. There is no evidence for pulmonary embolism. The biopsy lesion was described as enlarged other pulmonary nodules not visuali zed. Per my reviewed the right hilum appears full, however this discrete adenopathy is not clear. Stable nonspecific sclerotic bone lesions. Stable hypodensities in the liver, fa voring cysts. Stable small left adrenal gland nodule favoring adenoma. Olena is recovered well from the I-131 treatment she is no longer experiencing salivary gland irritation and her energy is improving slightly. She does continue to note tightness at the surgical site from thyroidectomy. Continues to smoke. Review of Systems: ROS ConstitutionalAbnormal - Complains of fatigue. Denies lack of appetite, fever, night s weats, rigors / chills and change in weight.ROS EyesNormal - Denies blurred vision, double vision and visual difficulties.ROS ENMTNormal - Denies dysphagia, ear pain, epistaxis, esop hagitis, sinusitis and sputum production.ROS NeckNormal - Denies neck masses, muscle weakne ss, neck pain, decreased range of motion and swelling of the neck.ROS IntegumentaryAbnormal - Complains of blistering from tape from chest tube. Denies bruising, dry skin, pruritus and rash.ROS CardiovascularAbnormal - Complains of arrhythmias Noted during hospital stay. Denies chest pain, dyspnea, edema and palpitations.ROS RespiratoryNormal - Denies cough, he moptysis and wheezing.ROS GastrointestinalAbnormal - Complains of nausea. Denies abdominal pain, constipation, diarrhea, heartburn / dyspepsia and vomiting.ROS Genitourinary (F)Norm al - Denies dysuria, frequency, hematuria, nocturia and urine color change.ROS Musculoskele talAbnormal - Complains of arthritis and joint pain. Denies muscle weakness and decreased r isidra of motion.ROS NeurologicNormal - Denies dizziness, headaches, motor weakness and senso ry problems.ROS PsychiatricNormal - Denies mood swings, depression and euphoria.ROS Endocri ne Abnormal - Complains of hot flashes and thyroid disease. Denies diabetes.ROS Hematologi c/LymphaticNormal - Denies easy bruising and tender or enlarged lymph nodes. Medications: Ambien 10 mg Ibuprofen 200 mg Levothyroxine 150 mcg TABLET q.d. Oxycodone 5 mg Tramadol 50 mg Tums 2 TABLET q.d. Zofran 4 mg xanax 0.5 mg Allergies: Morphine Vital Signs: Performed on 11/11/2016, 14:49Weight 88.0 kg Temperature 36.7 C Pulse 99 / min Respiration 16 / mi n BP154/67 mm(hg) (HIGH) O2 Sat 99 % Pain 5 Physical Exam: General: Healthy appearing woman in no acute medical distress. KPS: 90 HEENT: Pupils equal , round and reactive to light. No conjunctival icterus or injection. EOMI. Oral, moist mucu s membranes. Lymphatic: No cervical, supraclavicular or axillary [...] extremities normally with normal gait. Psychiatric: Appropriate. Chest: Right chest tube site with a clean dressing, no induration or erythema. Questionnaires: Are you having pain?YesWhere does it hurt most?right side painRate your pain from 0-10: 0-10 scale with 0 = no pain and 10= worst [id number] your pain (quality) i.e. aching, s harp, stabbing, etc.sharpWhat do you use for pain medication? Name and doseoxycodone 5 mg Imaging, pathology and pertinent labs reviewed personally and described above in history o f present illness. Impression/Plan: 56 year-old woman recently diagnosed with Stage III, T1a N1a papillary thyroid cancer, gosia ateral, muiltifocal, larges in right lobe 1cm, positive margin, LVSI indeterminant and PNI present. Left lobe with 0.6 cm nodule, positive margin, LVSI and PNI present, 1/1 small ly mph node positive. Indeterminant right lower lobe pulmonary nodule with metabolic activity on PET/CT. Thyrogen stimulated radioactive Iodine-131 ablation on 10/14/16 with 100 mCi. Newly diagnosed with a second malignancy, non-small cell lung cancer, adenocarcinoma, ri ght lower lobe clinical stage IA, T1. Mildly full right hilum on CT imaging. Lung cancer: Today, I discussed with Olena and her daughter the new diagnosis of a second primary ca ncer. This is a primary lung adenocarcinoma and appears to be unrelated to her thyroid can cer. The standard treatment would be surgical resection with concurrent mediastinal stagin g. If she were to decline surgery or be deemed a nonoperative candidate then stereotactic radiosurgery could be offered. With the fullness of her right hilum I would recommend EUS and biopsy at minimum for staging of the mediastinum. She is open to surgery and given he r generally good health status I expect she will be an operative candidate. -Review case at thoracic multidisciplinary tumor board. -Referral to cardiothoracic surgery, Dr. Mon. -Pulmonary function testing. -Strong counseling that tobacco cessation is vital to her health and success of treatment. Thyroid cancer: Dr. Mitchell is managing her thyroid replacement therapy. We will draw labs today per her re quest and forward them to his office. Referral to endocrinology has also been made, garth kowalski as access to endocrinologists in the region is limited. She will also be sche duled for a six-month post ablation stimulated thyroid scan. -Follow-up in 6 months, sooner if needed. Thank you for allowing me to participate in the care of Olena Rider. If you should have any questions regarding this evaluation, please do not hesitate to contact me. Susie Vargas M.D. Radiation Oncologist Department of Radiation Oncology [facility] Electronically signed by Susie Walker M.D CC: Doris Stanford M.D. Luis Felipe Handy, M.D.-[facility] This note was transcribed using [employer] speech recognition software. As a result, there ma y be unintended for medical and/or spelling errors. Every attempt is made to correct dicta tion. If there are any questions or errors please contact our office. CSN: [id number] signed by Susie Walker MD at 11/24/2016 8:59 AM PSTd ocumented in this encounter Plan of Treatment [...] Silva | | 2019 | Encounter | MD Lazaro De [address] | | | | | | [place] | | | | | | [address] | | | | | | | | +--------+ + + + + | 08/12/ | Appointment | Oncology | Lionel Benson | | | 2019 | | | J, PharmD [address] | | | | | | [address] [place] | | | | | | [place] [address] | | | | | | [phone] | | | | | | | | +--------+ + + + + | 08/19/ | Appointment | Oncology | Elmer Silva | | | 2019 | | | E, [address] | | | | | | [place] | | | | | | [address] | | | | | | | | +--------+ + + + + | 08/19/ | Appointment | Infusion Therapy | Elmer Silva | | | 2019 | | | E, [address] | | | | | | [place] | | | | | | [address] | | | | | | | [...] [place] | | | | | | [address] | | | | | | | [...] [place] | | | | | | [address] | | | | | | | [...] [place] | | | | | | [address] | | | | | | | [...] [place] | | | | | | [address] | | | | | | | | +--------+ + + + + + +------+--------+ + + | Name | Type | Priori | Associated Diagnoses | Order Schedule | | | | ty | | | + +------+--------+ + + | Pulmonary function | PFT | [facility] | Lung nodule | 1 Occurrences | | test | | | | starting 11/11/2016 | | | | | | until 11/11/2017 | + +------+--------+ + + + + +--------+ + + | Name | Type | Priori | Associated Diagnoses | Order Schedule | | | | ty | | | + + +--------+ + + | Ambulatory referral | Outpatient | Routin | Lung nodule | Ordered: 11/11/2016 | | to Cardiothoracic | Referral | e | | | | Surgery | | | | | + + +--------+ + + documented as of this encounter Results TSH (11/11/2016 3:28 PM PST) + + [...] YULIA BONNER. | [address] | [place] | [phone] | | [facility] | | [address] | | | - LABORATORY | | | | + + + + + documented in this encounter Visit Diagnoses + + | Diagnosis | + + | Malignant neoplasm of thyroid gland (HCC) - Primary Malignant neoplasm of thyroid | | gland | + + | Lung nodule Solitary pulmonary nodule | + + documented in this encounter"
--- OUTSIDE RECORDS SUMMARY | ~2020-08-08 | XMS | Encounter Summary ---
Demographics + + + | Address | [address] | | | [place] [address] | + + + | Home Phone | | + + + | Preferred Language | Unknown | + + + | Marital Status | Single | + + + | Muslim Affiliation | Unknown | + + + | Race | White | + + + | Ethnic Group | Not or | + + + Author + + + | Author | [facility] | | | and [place] | + + + | Organization | [facility] | | [...] Team Providers + +------+ + | Care Artillery Officer Name | Role | Phone | + +------+ + | Zuleyka Martínez | PCP | | + +------+ + Reason for Visit + +--------+ + | Reason | Onset | Comments | | | Date | | + +--------+ + | Patient Concerns | 07/17/ | | | | 2020 | | + +--------+ + Encounter Details +--------+ + + + + | Date | Type | Department | Care Team | Description | +--------+ + + + + | 07/17/ | Telephone | [facility] | Susie Montemayor | Patient Concerns | | 2020 | | [facility] | MD Jared [address] | | | | | [facility] [address] | [place], [place] | | | | | [facility] | [address] | | | | | [place] [address] | | | | | | [phone] | | | +--------+ + + + [...] Telephone Encounter - Abby Rodriguez RN - 07/18/2020 2:25 PM PDTMRI cervical spine sc heduled for 07/22/20, patient notified by Brigida. No further action required at this time. E lectronically signed by Abby Rodriguez RN at 07/18/2020 2:26 PM PDTTelephone Encounter - Abby Rodriguez RN - 07/18/2020 1:29 PM [facility] Dr. Montemayor notified reviewed MRI and advises that patient may leave we will seth l her with results once the MRI has been read and report is ready from radiologist. I let he r know that we will be calling her very soon to get her cervical spine MRI scheduled, it jackie ears that it now has authorization. Patient verbalizes her understanding and has no question s at this time. el ephone Encounter - Serenity Dunn RN - 07/17/2020 10:24 AM PDTCalled and notified patien t of Dr. Montemayor's response (see routing comment below):, she verbalizes understanding and h as no further questions at this time. "Ordered an MRI of the brain to be done ODIL[facility]. Also seeking auth for the C-spine MRI. Need s both ODILIA, pending Auth. Please update patient. Susie Montemayor MD" elephone Encounter - Serenity Dunn RN - 07/17/2020 9:[address] Dr. Montemayor.Electronicall y signed by Serenity Dunn RN at 07/17/2020 9:27 AM PDTTelephone Encounter - Lianne Dunn RN - 07/17/2020 9:12 AM PDTReturned call to [place]. She states she discussed symp toms she was having with Dr. Montemayor in her follow up yesterday including numbness to right hand, arm and shoulder. She states early this morning she developed right side facial paraly sis. She went to the ER at [facility] and they performed a CT scan, she states she was told it did not show a bleed and she was advised to call and let Dr. Montemayor know. I have faxed request to [facility] for ER notes, labs and CT scan report as well as requested imag es to be pushed. Will give records to Dr. Montemayor when they are faxed to us. Dr. Montemayor, please advise. 9:2 2 AM PDTTelephone Encounter - Dima Lehman - 07/17/2020 8:19 AM PDTPt called went to [facility] ER, had multiple symptoms with right sided weakness in the face, was told to contact Dr. Roberto gupta Asks for call [phone] signed by Dima Lehman at 07/17/2020 8:20 AM P DTdocumented in this encounter Plan of Treatment +--------+ [...] [place] | | | | | | [address] | | | | | | | | +--------+ + + + + | 08/12/ | Hospital | Infusion Therapy | [facility] | | | 2019 | Encounter | | E, [address] | | | | | | [place] | | | | | | [address] | | | | | | | | +--------+ + + + + | 08/12/ | Appointment | Oncology | Lionel Benson | | | 2019 | | | [address] | | | | | | [address] [facility] | | | | | | [place] [address] | | | | | | [phone] | | | | | | | | +--------+ + + + + | 08/19/ | Appointment | Oncology | Elmer Silva | | | 2019 | | | E, [address] | | | | | | ST [place], [place] | | | | | | [address] | | | | | | | | +--------+ + + + + | 08/19/ | Appointment | Infusion Therapy | [facility] Silva | | | 2019 | | | E, [address] | | | | | | ST [place], [place] | | | | | | [address] | | | | | | | [...] [place] | | | | | | [id number] | | | | | | | [...] [place] | | | | | | [id number] | | | | | | | [...] [place] | | | | | | [id number] | | | | | | | [...] [place] | | | | | | [id number] | | | | | | | | +--------+ + + + + documented as of this encounter Visit Diagnoses Not on filedocumented in this encounter
--- OUTSIDE RECORDS SUMMARY | ~2020-08-08 | XMS | Encounter Summary ---
Demographics + + + | Address | [address] | | | [place] [address] | + + + | Home Phone [...] Providers + +------+ + | Care Maintenance Mechanic Supervisor Name | Role | Phone | + +------+ + | Zuleyka Martínez | PCP | | + +------+ + Encounter Details +--------+ + + + + | Date | Type | Department | Care Team | Description | +--------+ + + + + | 01/26/ | Hospital | [facility] | Milton Salazar | Non-small cell lung | | 2017 | Encounter | [facility] | MD [address] | cancer, right (HCC) | | | | [facility] [address] [place] | (Primary Dx); | | | | [address] [place] | [place] [address] | Malignant neoplasm | | | | [place] [address] | [phone] | of thyroid gland | | | | [phone] | | (HCC) | +--------+ + + [...] + + + | Blood Pressure | 144/94 | 01/26/2017 1:02 PM | | | | | PDT | | + + + + + | Pulse | 85 | 01/26/2017 1:02 PM | | | | | PDT | | + + + + + | Temperature | 36.3 C (97.4 F) | 01/26/2017 1:02 PM | | | | | PDT | | + + + + + | Respiratory Rate | 16 | 01/26/2017 1:02 PM | | | | | PDT | | + + + + + | Oxygen Saturation | 98% | 01/26/2017 1:02 PM | | | | | PDT | | + + + + + | Inhaled Oxygen | - | - | | | Concentration | | | | + + + + + | Weight | 88.7 kg (195 lb 8.8 | 01/26/2017 1:02 PM | | | | oz) | PDT | | + + + + + | Height | - | - | | + + + + + | Body Mass Index | 29.73 | 11/04/2016 9:00 AM | | | [...] + + + +---------+ + + | Cephalexin (KEFLEX | Take by mouth. | | 0 | | | | PO) | | | | | 7 | [...] as of this encounter Progress Notes Amanda Mckenna, [facility] - 01/26/2017 1:06 PM PDTREVIEW OF SYSTEMS Constitutional: States fatigue. Denies shaking chills, anorexia, Vomiting, or night sweat s. Appetite without changes. Intermittent nausea-worse since have her surgery 11/2016 RLL lo bectomy. States 2 weeks of a low grade fevers from 100.4F to 102.0, this morning temperatur e was 101.0F. Weight loss of 3 lbs states she has been having a hard time with eating due to nausea. Ear, Nose, Mouth, Throat: Denies odynophagia, dysphagia, or tinnitus. Cardiovascular: States shortness of breath, dyspnea on exertion and chest pain. Denies pa lpitations or orthopnea. Respiratory: Denies cough, hemoptysis, or sputum production. Gastrointestinal: Denies abdominal pain, constipation, diarrhea, melena, or bright red bloo d per rectum. Genitourinary: Denies hematuria or dysuria. Musculoskeletal: Arthritic pain in both knees reported. Neurologic: Denies headache, visual changes, or numbness/tingling of the extremities. Endocrine: Denies peripheral edema or heat/cold intolerance. Hematologic: Denies spontaneous bruising or bleeding. Integumentary: Denies rash, wounds or other skin concerns. Pain: Pain where pt had a lobectomy RRL-rates the pain today with out pain medication at a 7/10, and with 5/10. Tolerable pain level:4/10>. Note: Pt is here for follow up. My chart: documented in this encounter Consult Notes Milton Salazar MD - 01/26/2017 1:54 PM PDTFormatting of this note might be diff erent from the original. HEMATOLOGY AND ONCOLOGY CARE CONSULTATION NOTE Pt. Name/Age/: Olena Rider 56 y.o. 1960 Requesting/Referring Physician: Zuleyka Mon Reason for Consultation: Opinion and advice regarding lung cancer History of Present Illness: Information is gathered from patient and past medical records 56 y.o. female With Stage III lung cancer diagnosed Nov, 2016. The history is complex and is briefly outlined as follows. 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 As part of that evaluation a PET/CT scan was obtained in that study disclose the pr esence of a avid nodule within the right lower lobe of the lung. Patient went on to then re ceive thyroid ablation which was well-tolerated and then in the beginning of November and melissa ge guided biopsy of the right lower lobe lung nodule. That study disclose the presence of a n adenocarcinoma with features including immunohistochemical staining positive for TTF-1, cy tokeratin 7 and Napsin A were more consistent with non-small cell lung cancer. As a result patient was seen in consultation by Dr. Luis Felipe Mon at [facility] and on December 30 underwent a videoscopic thoracoscopic resection of the right lower lobe following earlier mediastinal endoscopy. Surgery was well-tolerated and patient has ma de an uneventful an uncomplicated recovery. Pathologic evaluation of the right lower lobe i dentified the presence of 2 separate primary nodules within the right lower lobe measuring 1 and 1.3 cm respectively and again demonstrating adenocarcinoma histopathology with mucinous features. Detailed testing of these tumors disclose no evidence of a mutation in the epide rmal growth factor receptor gene or evidence of rearrangement in other oncogenes such as ROS or ALK. As was the case with patient's initial tumor there is low expression of PDL 1. De tailed staging information from the tumor also identified that one peribronchial lymph node contained a micrometastasis measuring 0.7 cm. None of the other resected mediastinal or oth er peribronchial lymph nodes totaling 8 in number were found to contain metastasis. Postoperatively patient has done reasonably well. She is on the verge of completing a prog lucian of oral antibiotic therapy following development of a wound infection. Although she gilberto cribes chest discomfort she is also noticing that feeling of nausea and dizziness referable to her pain medication with oxycodone may be more symptomatic. She is hoping to be able to return to work at the end of this week as she has exhausted her FMLA leave. She is making h eadway but has not entirely been able to discontinue cigarette smoking. Past Medical History: Past Medical History Diagnosis Date Insomnia Anxiety Malignant neoplasm of thyroid gland (HCC) PONV (postoperative nausea and vomiting) Past Surgical History Procedure Laterality Date Appendectomy Hysterectomy Colectomy Thyroidectomy Allergies: Allergies Allergen Reactions Morphine And Related Other (See Comments) "unknown reaction - trouble breathing after hysterectomy" Current Medications: Current Outpatient Prescriptions Medication Sig Dispense Refill ALPRAZolam (XANAX) 0.5 [...] No current facility-administered medications for this encounter. Family History: No family history on file. Social History: Social History Social History Marital Status: Single Spouse Name: N/A Number of Children: N/A Years of Education: N/A Occupational History Not on file. Social History Main Topics Smoking status: Current Every Day Smoker -- 0.50 packs/day for 30 years Types: Cigarettes Smokeless tobacco: Never Used Alcohol Use: Yes Comment: once a month Drug Use: No Sexual Activity: Not on file Other Topics Concern Not on file Social History Narrative ROS NOTED IN HPI- and Constitutional: States fatigue. Denies shaking chills, anorexia, Vomiting, or night swe ats. Appetite without changes. Intermittent nausea-worse since have her surgery 11/2016 RLL lobectomy. States 2 weeks of a low grade fevers from 100.4F to 102.0, this morning temper ature was 101.0F. Weight loss of 3 lbs states she has been having a hard time with eating du e to nausea. Ear, Nose, Mouth, Throat: Denies odynophagia, dysphagia, or tinnitus. Cardiovascular: States shortness of breath, dyspnea on exertion and chest pain. Denies palpitations or orthopnea. Respiratory: Denies cough, hemoptysis, or sputum production. Gastrointestinal: Denies abdominal pain, constipation, diarrhea, melena, or bright red bloo d per rectum. Genitourinary: Denies hematuria or dysuria. Musculoskeletal: Arthritic pain in both knees reported. Neurologic: Denies headache, visual changes, or numbness/tingling of the extremities. Endocrine: Denies peripheral edema or heat/cold intolerance. Hematologic: Denies spontaneous bruising or bleeding. Integumentary: Denies rash, wounds or other skin concerns. Pain: Pain where pt had a lobectomy RRL-rates the pain today with out pain medication at a 7/10, and with 5/10. Tolerable pain level:4/10>. Exam: Most Recent Vital Signs: BP 144/94 mmHg | Pulse 85 | Temp(Src) 36.3 C (97.4 F) (Tympanic) | Resp 16 | Wt 88.7 kg (195 lb 8.8 oz) | SpO2 98% | LMP (LMP Unknown) Physical Examination: ECOG Performance Status: (1) Restricted in physically strenuous activity, ambulatory and ab le to do work of light nature Gen: WD in no distress HEENT: no icterus. Lids nl, Pupils ERRL. Oral mucosa is moist and pink. No oral lesions. dentition intact; Nose- inspected-no lesions;septum intact NECK: Supple. No thyromegaly. trachea midline. No JVD. CV: S1 and S2 nl. No murmurs, no gallops. Pulses nl. CHEST: Normal symmetry; nl respiratory effort; Clear to auscultation- and percussion, nl BS ; no fremitus; thoracoscopy scars in the right anterior axillary line, the right mid axillar y and the right posterior axillary lines well healing ABD: Soft. Nl bowel sounds. Liver not enlarged; spleen not palpable. Midline scar from previous colon surgery well-healed LYMPH : No cervical, SC, or axillary adenopathy. EXT: No cyanosis, clubbing or edema, petechiae. SKIN: no rashes, lesions, ulcers ; no masses palpable Neuro/Psy: A&O, Mood/affect- calm; CN,sensation intact; otherwise not formally assessed MOTOR/MSK: intact-tone;strength nl gait nl;joints no tenderness; no effusion BREASTS: No palpable masses Diagnostic Studies: Patient:OLENA RIDER Inpt :1960 Sex:F Case #:[id number] Printed:01/21/2017 08:15 PATHOLOGY REPORT CollectedAccessioned Completed 12/30/2016 8:39:003 10:15:00 01/21 8:15:50 Clinical Information Malignant neoplasm of lower lobe, right bronchus or lung. Preliminary report issued on 01/02/17. Addendum [facility], [address], [address], [place], [place], FISH Analysis ([id number], Block C6) Results: ROS1 FISH Analysis - - Negative * Interpretation: Interphase FISH analysis was performed using a ROS1 Break Apart FISH Probe. FISH probe signals were within the normal reference range. A ROS1 gene rearrangement was not observed. This represents a NORMAL result and suggests that ROS1 inhibitors are not indicated. *Comment:The technical component of this test was completed at [facility], [address] [facility] [address], [address], [place]; all controls were within expected ranges. Please see complete scanned results in the patient's electronic medical record. FISH analysis by William Jimenez M.D. Original report verified 01/04/17 by Jin Abreu M.D. /td 01/21/17 end of addendum ADDENDUM: [facility], [address] [facility] [address], [address], [place], Histology Analysis ([id number], Block C7) Prognostic/Predictive Markers: PD-L1 22C3 FDA (KEYTRUDA):EXPRESSED Tumor Proportion Score:3% Intensity:Weak [facility], [address] [place] [address], Solid Tumor Targeted Mutation & Fusion Panel by Next Generation Sequencing ([id number], Block C6) Result Interpretation PATHOLOGY REPORT CollectedAccessioned Completed 12/30/2016 8:39:003 10:15:00 01/21 8:15:50 No significant mutations are identified in this limited hotspot mutation panel, see comment. Negative for EGFR and KRAS mutations and by ALK translocations. Comment:Correlation with the results of the currently pending ROS1 FISH studies is also recommended. Please see complete scanned results in the patient's electronic medical record. NGS analysis by William Jimenez M.D. Original reportverified 01/04/17 by Jin Abreu M.D. /kristian 01/15/17 end of addendum Diagnosis A.LYMPH NODE, LEVEL 7; RESECTION: - One benign anthracotic lymph node as confirmed by keratin immunostain (0/1). B. LYMPH NODE, RIGHT LEVEL 11; RESECTION: -Metastatic carcinoma involving one fragmented and anthracotic lymph node, identified on deeper sections only(1). -The tumor focus measures 0.7 mm. -No extracapsular extension is identified. C.LUNG, RIGHT LOWER LOBE; LOBECTOMY: - Two foci of adenocarcinoma, predominantly acinar pattern with mucinous/signet-ring features, see comment. - The larger focus measures 1.3 x 1.1 x 1 cm. - The smaller focus measures 1 x 0.6 x 0.6 cm. - The overlying visceral pleura is not involved by tumor, PL0. - Lymph-vascular invasion is present. - Margins (bronchial, vascular and parenchymal) are free of tumor. - Three benign lymph nodes (0/3). D.LYMPH NODE, RIGHT LEVEL 11 #2; RESECTION: - One benign anthracotic and fragmented lymph node (0/1). E.LYMPH NODE, RIGHT LEVEL 2; RESECTION: - One benign fragmented lymph node as confirmed by keratin immunostain (0/1). PATHOLOGY REPORT CollectedAccessioned Completed 12/30/2016 8:39:003 10:15:00 01/21 8:15:50 F.LYMPH NODE, RIGHT LEVEL 4; RESECTION: - One benign fragmented lymph node as confirmed by keratin immunostain (0/1). COMMENT:Two tumor foci are identified grossly.The larger tumor is 1.3 cm in greatest dimension and comprised predominantly of acinar pattern (80%) and a minor component of micropapillary pattern(20%).Mucinous features are noted including signet ring morphology.The smaller tumor is present 1 cm away from the larger tumor and demonstrate identical morphology.Entire tissue both tumors is submitted for histologic evaluation and shows normal lung parenchyma. Lymph-vascular invasion is present, as is metastasis to level 11 lymph node.The overall morphologic features are consistent with intrapulmonary metastasis and will be staged accordingly, pT3. Mutation analysis studies and PD-L1 (22C3) are initiated and the results will follow in an addendum. Lung Synoptic Specimen type: Lobectomy Thoracic lymphadenectomy Laterality:Right Tumor site:Lower lobe Tumor size:Larger tumor -- 1.3 x 1.1 x 1 cm; smaller tumor -- 1 x 0.6 x 0.6 cm Histologic type: Adenocarcinoma with mucinous features Histologic grade:Moderately to poorly differentiated Tumor focality: Unifocal:No Separate tumor nodules in same lobe:Yes Synchronous primaries:No Intrapulmonary metastases:Yes Invasion of: Pleura: Visceral pleura:Not identified, PL0 Parietal pleura:Not applicable Lymph-Vascular invasion: Present: Lymphatic:Present Arterial:Not identified Venous:Present Lymph nodes: Total number:8 (3 N2, 5 N1) Number positive:1 N1 Post-obstructive atelectasis:Not identified Surgical margins: Vascular margin:Free of tumor Parenchymal margin:Free of tumor PATHOLOGY REPORT CollectedAccessioned Completed 12/30/2016 8:39:003 10:15:00 01/21 8:15:50 Bronchial margin:Uninvolved by invasive carcinoma or carcinoma in situ Distance of invasive carcinoma (main tumor) from the closest margin:5.5 cm Specify margin:Vascular margin Molecular studies:Pending PD-L1 (22C3): Pending Block with tumor for possible additional studies:C4-C7; C9 and C10 TNM pathologic stage (AJCC Staging Manual, 7th edition, 2010): pT3, pN1 Dictated and authenticated by:JIN ABREU M.D. 01/21/17 S"H/PATRICIA Performing Location:Pathology Services - [facility], [address] [place], [place] [address] Gross Description A.LEVEL 7 LYMPH NODE (LUNG) Received in formalin labeled with the patient's name (initials [facility]) and designated as "level 7 lymph node (lung)" Description:The specimen consists of an irregular piece of maroon shah tissue measuring 2.5 cm in greatest dimension.The specimen is longitudinally bisected. SECTIONS: A1.Longitudinally bisected specimen, in its entirety. B.LEVEL #11 RIGHT LYMPH NODE (LUNG) Received in formalin labeled with the patient's name (initials [facility]) and designated as "level #11 right lymph node (lung)" Description:The specimen consists of an ovoid piece of shah- phillips tissue measuring 2.1 cm in greatest dimension.The specimen is longitudinally bisected. SECTIONS: B1.Longitudinally bisected specimen, in its entirety. C.RIGHT LOWER LOBECTOMY (LUNG) Received fresh labeled with the patient's name (initials [facility]) and designated as "right lower lobectomy (lung)" Specimen integrity:At the central antihilar aspect of the specimen are two vertically oriented regions of fragmentation, having associated hemorrhage, measuring 2.0 and 6.0 cm in greatest dimension. Pictures taken:Photographs are taken of both the hilar and antihilar aspects of the intact specimen. Size and weight:18.0 x 17.0 x 3.5 cm, 310 g PATHOLOGY REPORT CollectedAccessioned Completed 12/30/2016 8:39: 10:15:00 01/21 8:15:50 Specimen type:Lobectomy Pleura: Visceral pleura:The visceral pleura is fragmented at th e antihilar aspect, as described previously.Immediately inferior to the bronchus is a 2.5 cm potential parenchymal margin. Parietal pleura:Not identified Inking scheme:The specimen is not inked. TUMOR SITE:The tumors lie within the central superior aspect of the specimen, approximately at the level of, and anterior to the main bronchus. Tumor focality:Two potential tumors are identified. Size of tumor:Tumor #1 measures 1.3 x 1.1 x 1.0 cm. Tumor #2, at the same level as, and 1.0 cm posteromedial to tumor #1 measures 1.0 x 0.6 x 0.6 cm. Description of tumor:Tumor #1 is apparently viable, centrally mottled shah-phillips, and peripherally white-phillips. Tumor #2 is homogenous, apparently viable and white-phillips. Extent of tumor:Both tumors appear well circumscribed. Invasion of: Pleura:Absent (both tumors) Bronchi:Tumor #1: Absent, Tumor #2:Appears to lie within a bronchial structure Vessels:Absent (both tumors) Lymph nodes:Absent (both tumors) Other structure:Not applicable Other lobes:Not applicable Distance from bronchial margin:Tumor #1:6.5 cm, Tumor #2: 5.5 cm Distance from vascular margin:Tumor 1:5.5 cm, Tumor #2:3.5 cm Distance from closest parenchymal margin:Tumor #1:7.5 cm, Tumor #2:3.5 cm Distance from pleura:Tumor #1:1.3 cm, Tumor #2:2.5 cm Uninvolved lung:The uninvolved lung appears unremarkable. Tumor associated atelectasis or obstructive pneumonitis:Not identified Additional findings:None Lymph nodes (number of nodes and measurements): Level 10:Not applicable Level 11:Not applicable Level 12:One, 1.0 cm Level 13:One, 0.5 cm SECTIONS: C1.En face bronchial margin C2.En face vascular margins C3.En face potential parenchymal margin inferior to main bronchus C4-7.Tumor #1, in its entirety, sequentially submitted, proceeding from superior to inferior C8.Lung tissue lying between tumor #1 and tumor #2, in its entirety C9.Tumor #2, in its entirety PATHOLOGY REPORT CollectedAccessioned Completed 12/30/2016 8:39:003 10:15:00 01/21 8:15:50 C10.One inked intact level 12 lymph node and one intact level 13 lymph node, lying within lung tissue C11. Additional pigmented lung sections C12.One intact level 13 lymph nodes C13-17.Unremarkable lung tissue, proceeding from superior to inferior, with contents of cassettes C13 and C14 taken superior to suspected tumor, and with remaining sections taken inferior to tumors. D.LEVEL 11 #2 RIGHT LYMPH NODE (LUNG) Received in formalin labeled with the patient's name (initials [facility]) and designated as "level 11 #2 right lymph node (lung)" Description:The specimen consists of three lymph node fragments that range from 0.5-0.7 cm in greatest dimension. SECTIONS: D1.Specimen in toto. E.LEVEL 2 RIGHT (LUNG) LYMPH NODE Received in formalin labeled with the patient's name (initials [facility]) and designated as "level 2 right (lung) lymph node" Description:The specimen consists of four lymph node fragments that range from 0.6-1.7 cm in greatest dimension. SECTIONS: E1.Specimen in toto. F.LEVEL 4 LYMPH NODES RIGHT LUNG Received in formalin labeled with the patient's name (initials [facility]) and designated as "level 4 lymph nodes rt.lung" Description:The specimen consists of two lymph node fragments measuring 0.6 and 1.8 cm in greatest dimension. SECTIONS: F1.Specimen in toto. TS/TS Microscopic Description A-F.Microscopic examination is performed and supports the above diagnosis. PARAFFIN IMMUNOHISTOCHEMISTRY (block C7): Keratin 7: Positive, diffuse in tumor cells TTF-1: Positive, focal in tumor cells Thyroglobulin: Negative in tumor cells Napsin A: Negative in tumor cells Keratin 20: Negative in tumor cells PARAFFIN IMMUNOHISTOCHEMISTRY (block C4): PATHOLOGY REPORT CollectedAccessioned Completed 12/30/2016 8:39:003 10:15:00 01/21 8:15:50 D2- -40: Highlights lymphatic invasion Synaptophysin: Negative in tumor cells Chromogranin: Negative in tumor cells PARAFFIN IMMUNOHISTOCHEMISTRY (block B4): Keratin AE1/AE3: Highlighted rare keratin positive cells. TTF-1: Negative for tumor cells. Interpretation:This immunoprofile is in support of lung primary. Appropriate controls were used for each immunohistochemical stain and reacted appropriately.This test was developed and its performance characteristics determined by the [facility], [address] [place] [address], [place] [address], [place], [address], CLIA #[id number]. It has not been cleared or approved by the U.S. Food and Drug Administration.The FDA has determined that such clearance or approval is not necessary.This test is used for clinical purposes.It should not be regarded as investigational or for research.This laboratory is certified under the Clinical Laboratory Improvement Amendments of 1988 (CLIA) as qualified to perform high complexity clinical laboratory testing. S"H/NBM Back to top of Results from Last 3 Months Assessment and Recommendations: 1. Non-small cell lung cancer Adenocarcinoma with mucinous features pT3 (two separate foci, 1.3, 1.0 cm), pN1, M0 StageIIIA S/p VATS RLL, Dec, 2016, Dr. Luis Felipe Mon EGFR mutation negative, FISH neg: ROS, ALK rearrangement PD-L1 low expression (3%) 2. Papillary carcinoma of the thyroid S/p thyroidectomy, LN excision S/p radio-iodine abllation, Oct, 2016 Counseling session today with patient including patient's 2 daughters, coordination of care with our thoracic oncology colleague, Dr. Mon and then discussion with regard to eligibil ity for and availability of postsurgical adjuvant chemotherapy for patients with risk of sub sequent relapse of disease. We discussed readings from patient's staging evaluation indicat rajan of that risk which may be as high as 50% or more over the next 24 months. We discussed a program of wiyot containing chemotherapy as a means of containing fat risk. Inaja c hemotherapy generally well-tolerated as an outpatient when attention paid to management of a dequate hydration and antiemetic therapy. We discussed that for some patients necessity of continuation of work a kevin factor in being able to tolerate such therapy. These individuals treatment on the end of the week often preferable to allow additional days of posttreatment recovery. We outlined a program of 4 cycles of adjuvant chemotherapy extending over approx imately 12 weeks as such a program designed to reduce risk of recurrent disease. Recommendation today to hold up on further oxycodone containing analgesia given its nauseat ing and dizzy and affect. Our concern would be that it would make it difficult for patient to be able to return to full-time work in a safe capacity. Today we did provide patient a r eturn to work authorization prescription to allow resumption work as she has been hoping. Andrew wagner also discussed timing of initiation of chemotherapy noting the patient hoping to be able t o return to work for at least several weeks and is also planning to attend upcoming caregive r conference. We have tentatively scheduled initiation of therapy in the third week of Apri l or about 8 weeks out from the time of conclusion of patient's surgery. Electronically signed by: Milton [place] 01/26/2017 13:55 [facility] documented in this encounter Plan of Treatment +--------+ + + + + | Date | Type | Specialty | Care Team | Description | +--------+ + + + + | 08/12/ | Appointment | Oncology | Elmer Silva | | | 2019 | | | MD Lazaro Wagner | | | | | | [place], [place] | | | | | | [address] | | | | | | | | +--------+ + + + + | 08/12/ | Hospital | Infusion Therapy | Elmer Silva | | | 2019 | Encounter | | Trip, [address] | | | | | | [place] | | | | | | [address] | | | | | | | | +--------+ + + + + | 08/12/ | Appointment | Oncology | Lionel Benson | | | 2019 | | | JZe [address] | | | | | | [address] | | | | | | [place] [address] | | | | | | [phone] | | | | | | | | +--------+ + + + + | 08/19/ | Appointment | Oncology | Elmer Silva | | | 2019 | | | E, [address] | | | | | | [place], [place] | | | | | | [address] | | | | | | | | +--------+ + + + + | 08/19/ | Appointment | Infusion Therapy | Elmer Silva | | | 2019 | | | MD Trip [address] | | | | | | [place] | | | | | | [address] | | | | | | | [...] 2019 | Visit | | MD Lazaro Wagner | | | | | | [place] | | | | | | [address] | | | | | | | | +--------+ + + + + | 09/09/ | Appointment | Infusion Therapy | | | | 2019 | | | | | +--------+ + + + + | 09/16/ | Office | Oncology | Elmer Silva | | | 2019 | Visit | | MD [address]azaro [address] | | | | | | [place] | | | | | | [address] | | | | | | | | +--------+ + + + + | 09/16/ | Appointment | Infusion Therapy | | | | 2019 | | | | | +--------+ + + + + | 09/23/ | Office | Oncology | Elmer Silva | | 2019 | Visit | | MD Lazaro Wagner | | | | | | [place] | | | | | | [address] | | | | | | | [...] [place] | | | | | | [address] | | | | | | | | +--------+ + + + + documented as of this encounter Visit Diagnoses + + | Diagnosis | + + | Non-small cell lung cancer, right (HCC) - Primary | + + | Malignant neoplasm of thyroid gland (HCC) Malignant neoplasm of thyroid gland | + + documented in this encounter
--- OUTSIDE RECORDS SUMMARY | ~2020-08-08 | XMS | Encounter Summary ---
Demographics + + + | Address | [address] | | | [place] [address] | + + + | Home Phone | | + + + | Preferred Language | Unknown | + + + | Marital Status | Single | + + + | Latter-Day Affiliation | Unknown | + + + [...] Team Providers + +------+ + | Care Appeals Writer Name | Role | Phone | + +------+ + | Zuleyka Martínez | PCP | | + +------+ + Reason for Visit +--------+--------+ + | Reason | Onset | Comments | | | Date | | +--------+--------+ + | Other | 11/24/ | | | | 2016 | | +--------+--------+ + Encounter Details +--------+ + + + + | Date | Type | Department | Care Team | Description | +--------+ + + + + | 11/24/ | Telephone | [facility] | Susie Montemayor | Other | | 2016 | | [facility] RAD[facility] | MD Jared [address] | | | | | ONCOLOGY [address] | [place], [place] | | | | | [place], | [address] | | | | | [place] [address] | | | | | | [phone] | | | +--------+ + + + [...] this encounter Miscellaneous Notes Telephone Encounter - Cassi Pulido RN - 11/25/2016 4:49 PM PSTSpoke with Avtar et her know this has been faxed and we received confirmation. elephone Encounter - Zelda Vidal - 11/24/2016 1:28 PM PSTMichelle called and stated that she would like to speak with Dr. Vargas's nu rse to see if the paper work that she left last week for Dr. Vargas to fill out had been faxed over to [facility] for her disability please advise thank you. documented in this encounter Plan of Treatment +--------+ + + + + | Date | Type | Specialty | Care Team | Description | +--------+ + + + + | 08/12/ | Appointment | Oncology | Elmer Silva | | | 2019 | | | MD [address] | | | | | | [place], [place] | | | | | | [address] | | | | | | | | +--------+ + + + + | 08/12/ | Hospital | Infusion Therapy | Elmer Silva | | | 2019 | Encounter | | E, [address] | | | | | | [place], [place] | | | | | | [address] | | | | | | | | +--------+ + + + + | 08/12/ | Appointment | Oncology | Lionel Benson | | | 2019 | | | J, PharmD [address] | | | | | | [address] [place] | | | | | | [place] [address] | | | | | | [phone] | | | | | | | | +--------+ + + + + | 08/19/ | Appointment | Oncology | Elmer Silva | | | 2019 | | | E, [address] | | | | | | [place], [place] | | | | | | [address] | | | | | | | | +--------+ + + + + | 08/19/ | Appointment | Infusion Therapy | Elmer Silva | | | 2019 | | | MD [address]azaro Domin[address] | | | | | | [place] | | | | | | [address] | | | | | | | [...] [place] | | | | | | [address] | | | | | | | [...] [place] | | | | | | [address] | | | | | | | [...] [place] | | | | | | [address] | | | | | | | [...] [place] | | | | | | [address] | | | | | | | | +--------+ + + + + documented as of this encounter Visit Diagnoses Not on filedocumented in this encounter"
--- OUTSIDE RECORDS SUMMARY | ~2020-08-08 | XMS | Encounter Summary ---
Demographics + + + | Address | [address] | | | [place] [address] | + + + | Home Phone [...] Author + + + | Author | [facility] | | | and [place] | + + + | Organization | [facility] | | | [...] Team Providers + +------+ + | Care Ceramic Capacitor Processor Name | Role | Phone | + +------+ + | Zuleyka Martínez | PCP | | + +------+ + Encounter Details +--------+ + + + + | Date | Type | Department | Care Team | Description | +--------+ + + + + | 06/17/ | Hospital | [facility] | Susie Montemayor | Encounter for | | 2019 | Encounter | MED CTR MAMMOGRAPHY | MD Jared [address] | screening mammogram | | | | [address] | [place], [place] | for high-risk | | | | [place], [place] | [address] | patient | | | | [address] | | | | | | [phone] | | | +--------+ + + + [...] [place] | | | | | | [address] | | | | | | | | +--------+ + + + + | 08/12/ | Hospital | Infusion Therapy | Elmer Silva | | 2019 | Encounter | | MD [address] | | | | | | [place] | | | | | | [address] | | | | | | | | +--------+ + + + + | 08/12/ | Appointment | Oncology | Lionel Benson | | | 2019 | | | J, PharmD [address] | | | | | | [address] [place] | | | | | | [place] [address] | | | | | | [phone] | | | | | | | | +--------+ + + + + | 08/19/ | Appointment | Oncology | Elmer Silva | | | 2019 | | | E, [address] | | | | | | [place] | | | | | | [address] | | | | | | | | +--------+ + + + + | 08/19/ | Appointment | Infusion Therapy | Elmer Silva | | | 2019 | | | E, [address] | | | | | | [place], [place] | | | | | | [address] | | | | | | | [...] | | 2020 | Visit | | MD Lazaro Dominique [address] | | | | | | [place] | | | | | | [address] | | | | | | | [...] [place] | | | | | | [address] | | | | | | | [...] [place] | | | | | | [address] | | | | | | | [...] [place] | | | | | | [address] | | | | | | | | +--------+ + + + + documented as of this encounter Procedures + +--------+ + + + | Procedure Name | Priori | Date/Time | Associated Diagnosis | Comments | | | ty | | | | + +--------+ + + + | ADAM TOMOSYN | Routin | 06/17/2020 | Encounter for | Results for this | | SCREENING BILATERAL | e | 1:42 PM | screening mammogram | procedure are in the | | | | PDT | for high-risk | results section. | | | | | patient | | + +--------+ + + + documented in this encounter Results ADAM Tomosynthesis Screening Bilateral [...] Encounter for screening mammogram for high-risk patient | + + documented in this encounter"
--- OUTSIDE RECORDS SUMMARY | ~2020-08-08 | XMS | Encounter Summary ---
Demographics + + + | Address | [address] | | | [place] [address] | + + + | Home Phone | | + + + | Preferred Language | Unknown | + + + | Marital Status | Single | + + + | Congregation Affiliation | Unknown | + + + | Race | White | + + + | Ethnic Group | Not or | + + + Author + + + | Author | [facility] | | | and [place] | + + + | Organization | [facility] | | [...] Team Providers + +------+ + | Care Dredge Engineer Name | Role | Phone | + +------+ + | Zuleyka Martínez | PCP | | + +------+ + Reason for Referral Evaluate & Treat (Routine) + + + + + + + | Status | Reason | Specialty | Diagnoses / | Referred By | Referred To | | | | | Procedures | Contact | Contact | + + + + + + + | Pending | Specialty | Palliative | Diagnoses | Albina, | Russellm | | Review | Services | Care | 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, | Palliative | | | Required | | adenocarcino | MD [address] | [address] | | | | | ma of brain | [address] | [place] | | | | | (HCC) | [place], | [place], [place] | | | | | | [place] [address] | [address] | | | | | | Phone: | Phone: | | | | | | [phone] | [phone] | | | | | | Fax: | Fax: | | | | | | [phone] | [phone] | + + + + + + + Diagnostic/Screening (Routine) + +--------+ + + + + | Status | Reason | Specialty | Diagnoses / | Referred By | Referred To | | | | | Procedures | Contact | Contact | + +--------+ + + + + | Pending | | Radiology | Diagnoses | Albina, | [facility] | | Review | | | Secondary | Susie Coleman, | [facility] | | | | | adenocarcino | MD [address] | [facility] | | | | | ma of brain | [address] | MEDICAL | | | | | (HCC) | [place], | CENTER [address] | | | | | Procedures | [place] [address] | [place] | | | | | MRI Brain w | Phone: | [place], | | | | | wo Contrast | [phone] | [place] [address] | | | | | OCT 2020 | Fax: | Phone: | | | | | | [phone] | [phone] | | | | | | | Fax: | | | | | | | [phone] | + +--------+ + + + + Encounter Details +--------+ + + + + | Date | Type | Department | Care Team | Description | +--------+ + + + + | 08/01/ | Hospital | [facility] | Susie Montemayor | Secondary | | 2020 | Encounter | MED CTR RADIATION | MD Jared [address] | adenocarcinoma of | | | | ONCOLOGY CLINIC [address] | [place], [place] | brain (HCC) (Primary | | | | [address] [place] | [address] | Dx) | | | | [place] [address] | | | | | | [phone] | | | +--------+ + + + [...] + + + | Blood Pressure | 113/86 | 08/01/2020 10:07 AM | | | | | PDT | | + + + + + | Pulse | 78 | 08/01/2020 10:07 AM | | | | | PDT | | + + + + + | Temperature | 37.1 C (98.8 F) | 08/01/2020 10:07 AM | | | | | PDT | | + + + + + | Respiratory Rate | 16 | 08/01/2020 10:07 AM | | | | | PDT | | + + + + + | Oxygen Saturation | 99% | 08/01/2020 10:07 AM | | | | | PDT | | + + + + + | Inhaled Oxygen | - | - | | | Concentration | | | | + + + + + | Weight | 84.4 kg (186 lb 1.1 | 08/01/2020 10:07 AM | | | | oz) | PDT | | + + + + + | Height | - | - | | + + + + + | Body Mass Index | 27.88 | 02/27/2020 6:30 AM | | | [...] + +---------+ + + | gabapentin | Take 2 capsules by | 180 | 1 | 07/29/20 | | | (NEURONTIN) 300 mg | mouth 3 times daily. | capsule | | 20 | | | capsuleIndications: | | | | | | | Secondary | | | | | | | adenocarcinoma of | | | | | | | brain (HCC) | | | | | | [...] +---------+ + + | oxyCODONE | Take 1-2 tabs every | 90 | 0 | 07/29/20 | | | (ROXICODONE) 5 mg | 6 hrs as needed For | tablet | | 20 | | | tablet | pain. | | | | | + [...] encounter Progress Notes Susie Montemayor MD - 08/01/2020 9:45 AM PDT Radiation Oncology Weekly On Treatment Note Diagnosis: [...] taking differently: Take 4 mg by mouth daily (with breakfast) .) 60 ta blet 0 DULoxetine (CYMBALTA) [address] capsule Take 30 mg by mouth 2 times daily. gabapentin (NEURONTIN) 300 mg capsule Take 2 capsules by mouth 3 times daily. 180 capsu le 1 ibuprofen (ADVIL, MOTRIN) 200 mg tablet Take [...] Nausea. oxyCODONE (ROXICODONE) 5 mg tablet Take 1-2 tabs every 6 hrs as needed For pain. 90 tab let 0 traMADol (ULTRAM) 50 mg tablet Take 50-100 mg by mouth 4 times daily as needed for Pain . zolpidem (AMBIEN) 10 mg tablet Take 10 mg by mouth nightly. No current facility-administered medications on file prior to encounter. Pain assessment: Location: right side of neck, arm, and hand, and headache Pain Level: PAIN PROG PAIN LEVEL: 7/10 right neck arm and hand, headache pain is 4/10 Pain Quality: Constant, Sharp Current pain regimen: gabapentin, oxycodone, tylenol and ibuprofen Wt Readings from Last 3 Encounters: 08/01/20 84.4 kg (186 lb 1.1 oz) 07/25/20 82.6 kg (182 lb 1.6 oz) 07/19/20 84.5 kg (186 lb 4.6 oz) Vitals: 08/01/20 1007 BP: 113/86 Pulse: 78 Resp: 16 Temp: 37.1 C (98.8 F) TempSrc: Temporal SpO2: 99% Weight: 84.4 kg (186 lb 1.1 oz) Physical Exam Constitutional: She appears well-developed and well-nourished. Neurological: She is alert. A cranial nerve deficit (Rt facial weakness. ) is present. Skin: No rash noted. No erythema. Psychiatric: She has a normal mood and affect. Nurse Assessment and Toxicity Grading: Toxicity Flowsheet 08/01/2020 Diarrhea - Nausea 1 - Grade 1 Vomiting 0 - Grade 0 Fatigue 2 - Grade 2 Anorexia 1 - Grade 1 Cough - Palmar-Plantar Erythrodysesthesia Syndrome - Rash Acneiform - Rash Maculo-Papular - Karnofsky Performance Score 70% Physician Assessment: 08/01/2020: Olena is scheduled to complete palliative whole brain radiation and treatmen t of an involved Rt C6/7 nerve root tomorrow. She is tolerating treatment well with no adve rse effects except increased fatigue. Neurologic symptoms including right facial palsy and arm pain have not improved, though she has not experienced any worsening or new neurologic c hanges. Dex has not seemed to improve her symptoms and we discussed a continued taper off dex over the next week. She continues to ramp up on the gabapentin with some perceived alison efit, currently taking 600 mg 3 times a day. She is also taking oxycodone 10 mg 3 times a d ay. She has met with Dr. Silva and plans to initiate chemotherapy, pending insurance authori zation. She has not yet started memantine, which we reviewed is a medication to decrease the neuroc ognitive decline associated with whole brain radiation. RTOG 0614 published by Omar et al. , 2013 Neuro Onc "Overall, patients treated with memantine had better cognitive function ove r time; specifically, memantine delayed time to cognitive decline and reduced the rate of de davis in memory, executive function, and processing speed in patients receiving WBRT" pendin g insurance authorization. We also discussed the role for palliative care in symptom management, grief and planning. Disposition: Continue radiation treatment as planned. Follow-up with Dr. Silva after completion of radiation to begin systemic therapy. Continue to taper off dexamethasone over the next week. Increase gabapentin, may increase to 900 mg 3 times a day or 600 mg 4 times a day. Discuss ed round schedule of increasing total daily dose by 300 mg no quicker than every 3 days. Continue oxycodone as needed. Palliative care referral. Plan for follow-up with me in 2-3 months with MRI of the brain. However, stressed to Cori llbernard that should she develop any new or worsening neurologic symptoms, she should return for evaluation sooner. Susie Montemayor MD Radiation Oncologist documented in this encounter Miscellaneous Notes Addendum Note - Susie Montemayor MD - 08/01/2020 9:45 AM PDT Encounter addended by: Kylee Montemayor MD on: 08/01/2020 5:18 PM Actions taken: Clinical Note Signed, Order list changed, Diagnosis association updated El ectronically signed by Susie Montemayor MD at 08/01/2020 5:18 PM PDTdocumented in this en counter Plan of Treatment +--------+ + + + + | Date | Type | Specialty | Care Team | Description | +--------+ + + + + | 08/12/ | Appointment | Oncology | Elmer Silva | | 2019 | | | MD Lazaro Dominique | | | | | | [place] | | | | | | [address] | | | | | | | | +--------+ + + + + | 08/12/ | Hospital | Infusion Therapy | Elmer Silva | | 2019 | Encounter | | MD Lazaro Dominique | | | | | | [place] | | | | | | [address] | | | | | | | | +--------+ + + + + | 08/12/ | Appointment | Oncology | Lionel Benson | | | 2019 | | | Ze [address] | | | | | | [address] [place] | | | | | | [place] [address] | | | | | | [phone] | | | | | | | | +--------+ + + + + | 08/19/ | Appointment | Oncology | Elmer Silva | | 2019 | | | E, [address] | | | | | | [place], [place] | | | | | | [address] | | | | | | | | +--------+ + + + + | 08/19/ | Appointment | Infusion Therapy | Elmer Silva | | | 2019 | | | E, [address] | | | | | | [place], [place] | | | | | | [address] | | | | | | | [...] 2019 | Visit | | MD Lazaro Dmoinique [address] | | | | | | [place] | | | | | | [address] | | | | | | | | +--------+ + + + + | 09/09/ | Appointment | Infusion Therapy | | | | 2019 | | | | | +--------+ + + + + | 09/16/ | Office | Oncology | Elmer Silva | | | 2019 | Visit | | MD Lazaro Dominique | | | | | | [facility] | | | | | [address] | | | | | | | [...] [place] | | | | | | [address] | | | | | | | [...] [place] | | | | | | [address] | | | | | | | | +--------+ + + + + + +---------+--------+ + + | Name | Type | Priori | Associated Diagnoses | Order Schedule | | | | ty | | | + +---------+--------+ + + | MRI Brain w wo | Imaging | Routin | Secondary | Expected: | | Contrast | | e | adenocarcinoma of | 10/01/2020, Expires: | | | | | brain (HCC) | 08/01/2021 | + +---------+--------+ + + + + +--------+ + + | Name | Type | Priori | Associated Diagnoses | Order Schedule | | | | ty | | | + + +--------+ + + | * [facility] Palliative | Outpatient | Routin | Secondary | Ordered: 08/01/2020 | | Care - AMB Referral | Referral | e | adenocarcinoma of | | | | | | brain (HCC) | | + + +--------+ + + documented as of this encounter Visit Diagnoses + + | Diagnosis | + + | 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
--- OUTSIDE RECORDS SUMMARY | ~2020-08-08 | XMS | Encounter Summary ---
Demographics + + + | Address | [address] | | | [place] [address] | + + + | Home Phone [...] Team Providers + +------+ + | Care Component Engineer Name | Role | Phone | [...] + + + + | 09/07/ | [facility] | [facility] | Susie Montemayor | Primary malignant | | 2019 | Encounter | MED CTR RADIATION | MD Jared [address] | neoplasm of female | | | | ONCOLOGY CLINIC [address] | [place], [place] | breast (HCC) | | | | [address] [facility] | [address] | (Primary Dx) | | | | [place] [address] | | | | | | [phone] | | | +--------+ + + + [...] [place] | | | | | | [address] | | | | | | | | +--------+ + + + + | 08/12/ | Hospital | Infusion Therapy | Elmer Silva | | | 2019 | Encounter | | MD Lazaro Dominique | | | | | | [place] | | | | | | [address] | | | | | | | | +--------+ + + + + | 08/12/ | Appointment | Oncology | Lionel Benson | | | 2019 | | | [address] | | | | | | [address] [place] | | | | | | [place] [address] | | | | | | [phone] | | | | | | | | +--------+ + + + + | 08/19/ | Appointment | Oncology | Elmer iSlva | | 2019 | | | Trip, MD [address] | | | | | | ST [place], [place] | | | | | | [address] | | | | | | | | +--------+ + + + + | 08/19/ | Appointment | Infusion Therapy | Elmer Silva | | | 2019 | | | E, [address] | | | | | | [address] [place] [facility], [place] | | | | | | [address] | | | | | | | [...] [place] | | | | | | [address] | | | | | | | [...] [place] | | | | | | [address] | | | | | | | [...] [place] | | | | | | [address] | | | | | | | [...] [place] | | | | | | [id number] | | | | | | | | +--------+ + + + + documented as of this encounter Visit Diagnoses + + | Diagnosis | + + | 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
--- OUTSIDE RECORDS SUMMARY | ~2020-08-08 | XMS | Encounter Summary ---
Demographics + + + | Address | [address] | | | [place] [address] | + + + | Home Phone [...] Team Providers + +------+ + | Care Apartment Leasing Manager Name | Role | Phone | [...] | | | [address] [place] | [place] [address] | | | | | [place] [address] | | | | | | [phone] | | | +--------+ + + + [...] [place] | | | | | | [address] | | | | | | | | +--------+ + + + + | 08/12/ | Hospital | Infusion Therapy | Elmer Silva | | | 2019 | Encounter | | MD Lazaro Dominique | | | | | | [place] | | | | | | [address] | | | | | | | | +--------+ + + + + | 08/12/ | Appointment | Oncology | Lionel Benson | | | 2019 | | | Ze Unger [address] | | | | | | [address] [place] | | | | | | [place] [address] | | | | | | [phone] | | | | | | | | +--------+ + + + + | 08/19/ | Appointment | Oncology | Elmer Silva | | | 2019 | | | Trip, [address] | | | | | | [place] | | | | | | [address] | | | | | | | | +--------+ + + + + | 08/19/ | Appointment | Infusion Therapy | Elmer Silva | | | 2019 | | | E, [address] | | | | | | [address] [place], [place] | | | | | | [address] | | | | | | | [...] [place] | | | | | | [address] | | | | | | | [...] [place] | | | | | | [address] | | | | | | | [...] [place] | | | | | | [address] | | | | | | | [...] [place] | | | | | | [address] | | | | | | | | +--------+ + + + + documented as of this encounter Procedures + +--------+ + + + | Procedure Name | Priori | Date/Time | Associated Diagnosis | Comments | | | ty | | | | + +--------+ + + + | ADAM DIGITAL | Routin | 05/25/2013 | | Results for this | | SCREENING BILATERAL | e | 12:00 AM | | procedure are in the | | | | PDT | | results section. | + +--------+ + + + documented in this encounter Results ADAM Digital Screening Bilateral (05/25/2013 12:00 AM PDT) + + | Specimen [...]
--- OUTSIDE RECORDS SUMMARY | ~2020-08-08 | XMS | Encounter Summary ---
Demographics + + + | Address | [address] | | | [place] [address] | + + + | Home Phone [...] Author + + + | Author | [facility] | | | and [place] | + + + | Organization | [facility] | | | [...] Team Providers + +------+ + | Care Merchandise Supervisor Name | Role | Phone | [...] | neoplasm of | Milton | [address] | | | | | unspecified | MD Bebeto | [place], | | | | | part of | [address] | [place] [address] | | | | | right | [place] | Phone: | | | | | bronchus or | [place], [place] | [phone] | | | | | lung (HCC) | [address] | Fax: | | | | | Procedures | Phone: | [phone] | | | | | RI VITAMIN | [phone] | | | | | | B12 | Fax: | | | | | | INJECTION, | [phone] | | | | | | [address] | | | | | | | ONDANSETRON | | | | | | | HCL | | | | | | | INJECTION, 1 | | | | | | | MG RI | | | | | | | DEXAMETHASON | | | | | | | E SODIUM | | | | | | | PHOS, 1 MG | | | | | | | RI | | | | | | | FOSAPREPITAN | | | | | | | T INJECTION, | | | | | | | 1 MG RI IV | | | | | | | INFUSION, | | | | | | | HYDRATION, | | | | | | | 31-60 MIN | | | | | | | RI IV | | | | | | | INFUSION, | | | | | | | HYDRATION, | | | | | | | EA ADD HOUR | | | | | | | RI | | | | | | | PEMETREXED | | | | | | | INJECTION, | | | | | | | 10 MG RI | | | | | | | CISPLATIN 10 | | | | | | | MG | | | | | | | INJECTION | | | | | | | RI | | | | | | | DIPHENHYDRAM | | | | | | | INE HCL | | | | | | | INJECTIO, 50 | | | | | | | MG RI | | | | | | | ALBUTEROL | | | | | | | COMP CON, 1 | | | | | | | MG RI | | | | | | | ALBUTEROL | | | | | | | NON-COMP | | | | | | | CON, 1 MG | | | | | | | RI | | | | | | | METHYLPREDNI | | | | | | | SOLONE | | | | | | | INJECTION, | | | | | | | 125 MG RI | | | | | | | INJECTION, | | | | | | | FAMOTIDINE, | | | | | | | 20 MG RI | | | | | | | NORMAL | | | | | | | SALINE | | | | | | | SOLUTION | | | | | | | INFUS, 500 | | | | | | | ML RI | | | | | | | NORMAL | | | | | | | SALINE | | | | | | | SOLUTION | | | | | | | INFUS, 250 | | | | | | | ML RI | | | | | | | STERILE | | | | | | | WATER/SALINE | | | | | | | , 10 ML RI | | | | | | | CHEMOTHER, | | | | | | | IV PUSH,EA | | | | | | | ADD DRUG RI | | | | | | | CHEMOTHER, | | | | | | | IV INFUSION, | | | | | | | 1 HR RI | | | | | | | CHEMOTHER, | | | | | | | IV INFUSION, | | | | | | | EA HR RI | | | | | | | CHEMOTHER,NO | | | | | | | N-HORMONE | | | | | | | ANTI-NEOPL, | | | | | | | SUB-Q/IM RI | | | | | | | CHEMOTHER | | | | | | | HORMON | | | | | | | ANTINEOPL | | | | | | | SUB-Q/IM RI | | | | | | | | | | | | | | PALONOSETRON | | | | | | | HCL, 25 MCG | | | | | | | RI | | | | | | | CARBOPLATIN | | | | | | | INJECTION, | | | | | | | 50 MG | | | +--------+--------+ + + + + Encounter Details +--------+ + + + + | Date | Type | Department | Care Team | Description | +--------+ + + + + | 04/23/ | Hospital | [facility] | Milton Salazar | 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 Bebeto [address] | cancer of right lung | | | | INFUSION [address] [place] | (HCC) | | | | [place], | [place] [address] | | | | | [place] [address] | [phone] | | | | | [phone] | | | +--------+ + + + [...] [place] | | | | | | [address] | | | | | | | | +--------+ + + + + | 08/12/ | Hospital | Infusion Therapy | Elmre Silva | | | 2019 | Encounter | | Trip, [address] | | | | | | ST [place], [place] | | | | | | [address] | | | | | | | | +--------+ + + + + | 08/12/ | Appointment | Oncology | Lionel Benson | | | 2019 | | | Ze Unger [address] | | | | | | [address] [place] | | | | | | [place] [address] | | | | | | [phone] | | | | | | | | +--------+ + + + + | 08/19/ | Appointment | Oncology | Elmer Silva | | | 2019 | | | EMD [address] | | | | | | ST [place], [place] | | | | | | [address] | | | | | | | | +--------+ + + + + | 08/19/ | Appointment | Infusion Therapy | Elmer Silva | | | 2019 | | | EMD [address] | | | | | | ST [place] | | | | | | [address] | | | | | | | [...] [place] | | | | | | [address] | | | | | | | [...] [place] | | | | | | [address] | | | | | | | [...] [place] | | | | | | [address] | | | | | | | [...] [place] | | | | | | [address] | | | | | | | [...]
--- OUTSIDE RECORDS SUMMARY | ~2020-08-08 | XMS | Encounter Summary ---
Demographics + + + | Address | [address] | | | [place] [address] | + + + | Home Phone | | + + + | Preferred Language | Unknown | + + + | Marital Status | Single | + + + | Bahai Affiliation | Unknown | + + + [...] Team Providers + +------+ + | Care Risk Lead Name | Role | Phone | + +------+ + | Zuleyka Martínez | PCP | | + +------+ + Encounter Details +--------+ + + + + | Date | Type | Department | Care Team | Description | +--------+ + + + + | 11/12/ | Orders Only | [facility] | Susie Montemayor | Lung nodule (Primary | | 2017 | | MED CTR RADIATION | MD Jared [address] | Dx) | | | | ONCOLOGY [address] [place], [place] | | | | | [place], | [address] | | | | | [place] [address] | | | | | | [phone] | | | +--------+ + + + [...] [place] | | | | | | [address] | | | | | | | | +--------+ + + + + | 08/12/ | Hospital | Infusion Therapy | Elmer Silva | | 2019 | Encounter | | MD Lazaro Dominique | | | | | | [place] | | | | | | [address] | | | | | | | | +--------+ + + + + | 08/12/ | Appointment | Oncology | Lionel Benson | | 2019 | | | J, PharmD [address] | | | | | | [address] [place] | | | | | | [place] [address] | | | | | | [phone] | | | | | | | | +--------+ + + + + | 08/19/ | Appointment | Oncology | Elmer Silva | | | 2019 | | | E, [address] | | | | | | ST [place], [place] | | | | | | [address] | | | | | | | | +--------+ + + + + | 08/19/ | Appointment | Infusion Therapy | Elmer Silva | | | 2019 | | | E, [address] | | | | | | ST [place], [place] | | | | | | [address] | | | | | | | [...] [place] | | | | | | [address] | | | | | | | [...] [place] | | | | | | [address] | | | | | | | [...] [place] | | | | | | [address] | | | | | | | [...] | | | | | | [place] | | | | | | [address] | | | | | | | | +--------+ + + + + documented as of this encounter Results Pulmonary function test full PFT (11/20/2016 4:07 PM PST) + + + | Narrative | Performed At | + + + | Mauricio | | | MD Won 11/20/2016 16:07 PULMONARY FUNCTION TESTING | | | SPIROMETRY: The FVC was 3.86 L or 103 % of predicted. The FEV1 was | | | 2.94 L or 99 % of predicted. FEV1/FVC ratio was 76 %. LUNG VOLUMES: | | | The total lung capacity was 6.42 L or 113 % of predicted. The | | | residual volume was 2.57 L or 124 % of predicted. RV/TLC ratio was 109 | | | % of predicted. DIFFUSION CAPACITY: The diffusion capacity was 20.5 | | | mL/mmHg per minute or 73 % of predicted. IMPRESSION: Spirometry is | | | consistent with normal physiology. Lung volume testing is consistent | | | with borderline gas trapping physiology. Diffusion capacity is mildly | | | reduced and is corrected for measured hemoglobin. No prior pulmonary | | | function tests available for comparison. Test performed: | | | 11/20/16Electronically signed by: Mauricio Upton MD 11/20/2016 | | | 16:05[facility] | | | | | |IMPRESSION: Spirometry is consistent with normal physiology. Lung | | |volume testing is consistent with borderline gas trapping | | |physiology. Diffusion capacity is mildly reduced and is corrected | | |for measured hemoglobin. | | | | | |No prior pulmonary function tests available for comparison. | | | | | |Test performed: 11/20/16 | | |Electronically signed by: Mauricio Upton MD 11/20/2016 16:05 | | |[facility] | | + + + documented in this encounter Visit Diagnoses + + | Diagnosis | + + | Lung nodule - Primary Solitary pulmonary nodule | + + documented in this encounter"
--- OUTSIDE RECORDS SUMMARY | ~2020-08-08 | XMS | Encounter Summary ---
Demographics + + + | Address | [address] | | | [place] [address] | + + + | Home Phone [...] Team Providers + +------+ + | Care Slot Shift Supervisor Name | Role | Phone | + +------+ + | Zuleyka Martínez | PCP | | + +------+ + Reason for Visit +--------+--------+ + | Reason | Onset | Comments | | | Date | | +--------+--------+ + | Other | 09/29/ | | | | 2016 | | +--------+--------+ + Encounter Details +--------+ + + + + | Date | Type | Department | Care Team | Description | +--------+ + + + + | 09/29/ | Telephone | [facility] | Azucena Ritchie, | Other | | 2015 | | MED CTR RADIATION | RN | | | | | ONCOLOGY [address] | | | | | | [place], | | | | | | [place] [address] | | | | | | [phone] | | | +--------+ + + + [...] Telephone Encounter - Azucena Ritchie RN - 09/29/2016 1:26 PM PSTPhone call to patient to verify that she will be starting low iodine diet on Wednesday. She states she has already stared this. I let her know I would be mailing a schedule of her appointments. She request ed that her prescriptions be sent to [facility] so these are reordered for [facility]. Review ed all instructions for thyroid ablation and patient verbalizes understanding. documented in this en counter Plan of Treatment +--------+ + + + + | Date | Type | Specialty | Care Team | Description | +--------+ + + + + | 08/12/ | Appointment | Oncology | Elmer Silva | | | 2019 | | | MD Lazaro Dominique | | | | | | [place] | | | | | | [address] | | | | | | | | +--------+ + + + + | 08/12/ | Hospital | Infusion Therapy | Elmer Silva | | 2019 | Encounter | | MD Lazaro Dominique | | | | | | [place] | | | | | | [address] | | | | | | | | +--------+ + + + + | 08/12/ | Appointment | Oncology | Lionel Benson | | | 2019 | | | JZe [address] | | | | | | [address] [place] | | | | | | [place] [address] | | | | | | [phone] | | | | | | | | +--------+ + + + + | 08/19/ | Appointment | Oncology | Elmer Silva | | | 2019 | | | E, [address] | | | | | | ST [place], [place] | | | | | | [address] | | | | | | | | +--------+ + + + + | 08/19/ | Appointment | Infusion Therapy | Elmer Silva | | | 2019 | | | E, [address] | | | | | | ST [place], [place] | | | | | | [address] | | | | | | | [...] [place] | | | | | | [address] | | | | | | | [...] [place] | | | | | | [address] | | | | | | | [...] [place] | | | | | | [address] | | | | | | | [...] [place] | | | | | | [address] | | | | | | | | +--------+ + + + + documented as of this encounter Visit Diagnoses Not on filedocumented in this encounter"
--- OUTSIDE RECORDS SUMMARY | ~2020-08-08 | XMS | Encounter Summary ---
Demographics + + + | Address | [address] | | | [place] [address] | + + + | Home Phone [...] Team Providers + +------+ + | Care Site Project Manager Name | Role | Phone | [...] | | | | [place] | [address] | | | | | | [address] | Phone: | | | | | | Phone: | [phone] | | | | | | [phone] | Fax: | | | | | | Fax: | [phone] | | | | | | [phone] | | +--------+ + + + + [...] [place] | | | | | [address] [place] | [place] [address] | | | | | [place] [address] | [phone] | | | | | [phone] | | | +--------+ + + + [...] [place] | | | | | | [address] | | | | | | | | +--------+ + + + + | 08/12/ | Hospital | Infusion Therapy | Elmer Silva | | | 2019 | Encounter | | MD Lazaro Dominique | | | | | | [place] | | | | | | [address] | | | | | | | | +--------+ + + + + | 08/12/ | Appointment | Oncology | Lionel Benson | | | 2019 | | | [address] | | | | | | [address] | | | | | | [place] [address] | | | | | | [phone] | | | | | | | | +--------+ + + + + | 08/19/ | Appointment | Oncology | Elmer Silva | | | 2019 | | | E, [address] | | | | | | [place] | | | | | | [address] | | | | | | | | +--------+ + + + + | 08/19/ | Appointment | Infusion Therapy | Elmer Silva | | | 2019 | | | E, [address] | | | | | | [place] | | | | | | [address] | | | | | | | [...] [place] | | | | | | [address] | | | | | | | [...] [place] | | | | | | [address] | | | | | | | [...] [place] | | | | | | [address] | | | | | | | [...] [place] | | | | | | [address] | | | | | | | | +--------+ + + + + + + +--------+ + + | Name | Type | Priori | Associated Diagnoses | Order Schedule | | | | ty | | | + + +--------+ + + | Odette | Outpatient | Routin | Brain tumor [...]
--- OUTSIDE RECORDS SUMMARY | ~2020-08-08 | XMS | Encounter Summary ---
Demographics + + + | Address | [address] | | | [place] [address] | + + + | Home Phone [...] Team Providers + +------+ + | Care Dragger Name | Role | Phone | + +------+ + | Zuleyka Martínez | PCP | | + +------+ + Encounter Details +--------+ + + + + | Date | Type | Department | Care Team | Description | +--------+ + + + + | 10/04/ | Documentati | [facility] | Susie Montemayor | | | 2019 | on | MED CTR RADIATION | MD Jared [address] | | | | | ONCOLOGY CLINIC [address] [place], [place] | | | | | [place] | [address] | | | | | [place] [address] | | | | | | [phone] | | | +--------+ + + + [...] encounter Progress Notes Susie Montemayor MD - 10/04/2019 4:19 PM PST Radiation Treatment Summary Diagnosis: ICD-10-CM ICD-9-CM 1. Malignant neoplasm of overlapping sites of right breast in female, estrogen receptor pos itive (HCC) C50.811 174.8 Z17.0 V86.0 Treatment Dates: Olena BONE was treated in our clinic between the dates of 2019 - 10/04/2019. Intent: Curative Treatment Technique: Boost- 3 Field Plan Right Breast- Tangents Treatment Site: Breast boost Breast, Right Prescription and Treatment Summary: Course: THORAX Plan ID Energy Fractions Dose per Fraction (cGy) Dose Correction (cGy) Total Dose Delivered (cGy) Elapsed Days R breast bst 6X 5 / 5 200 0 1,000 8 Rbreast_FiF 10X 15 / 15 267 0 4,005 20 Pain: Location: right breast Pain Level: PAIN PROG PAIN LEVEL: 4 Pain Quality: Burning Current pain regimen: emla cream Chemotherapy: No systemic therapy Assessment: Olena Rider completed the planned course of course of external beam radiation therap y without any unexpected complications or breaks. Treatment tolerance: good. Disease response to treatment: No evidence of disease. Disposition: 1. Follow-up in our clinic: 3 months a. Labs: none b. Imaging: none 2. Follow-up with Dr. Salazar. Coordination of [...] MD Radiation Oncologist Department of Radiation Oncology [facility] documented in this encounter Plan [...] [place] | | | | | | [address] | | | | | | | | +--------+ + + + + | 08/12/ | Hospital | Infusion Therapy | Elmer Silva | | | 2019 | Encounter | | E, [address] | | | | | | ST [place] | | | | | | [address] | | | | | | | | +--------+ + + + + | 08/12/ | Appointment | Oncology | Lionel Benson | | | 2019 | | | J, PharmCorky [address] | | | | | | [address] [place] | | | | | | [place] [address] | | | | | | [phone] | | | | | | | | +--------+ + + + + | 08/19/ | Appointment | Oncology | Elmer Silva | | | 2019 | | | E, [address] | | | | | | ST [place], [place] | | | | | | [address] | | | | | | | | +--------+ + + + + | 08/19/ | Appointment | Infusion Therapy | Elmer Silva | | | 2019 | | | E, [address] | | | | | | ST [place], [place] | | | | | | [address] | | | | | | | [...] [place] | | | | | | [address] | | | | | | | [...] [place] | | | | | | [address] | | | | | | | [...] [place] | | | | | | [address] | | | | | | | [...] [place] | | | | | | [address] | | | | | | | | +--------+ + + + + documented as of this encounter Visit Diagnoses + + | Diagnosis | + + | Malignant neoplasm of overlapping sites of right breast in female, estrogen receptor | | positive (HCC) | + + documented in this encounter"
--- OUTSIDE RECORDS SUMMARY | ~2020-08-08 | XMS | Encounter Summary ---
Demographics + + + | Address | [address] | | | [place] [address] | + + + | Home Phone [...] Team Providers + +------+ + | Care Communications Planner Name | Role | Phone | + +------+ + | Zuleyka Martínez | PCP | | + +------+ + Encounter Details +--------+ + + + + | Date | Type | Department | Care Team | Description | +--------+ + + + + | 03/06/ | Hospital | [facility] | Susie Montemayor | | | 2020 | Encounter | MED CTR RADIATION | Jared, [address] | | | | | ONCOLOGY [address] [place], [place] | | | | | [place], | [address] | | | | | [place] [address] | | | | | | [phone] | | | +--------+ + + + [...] [place] | | | | | | [address] | | | | | | | | +--------+ + + + + | 08/12/ | Hospital | Infusion Therapy | Elmer Silva | | | 2019 | Encounter | | MD Lazaro Dominique [address] | | | | | | [place] | | | | | | [address] | | | | | | | | +--------+ + + + + | 08/12/ | Appointment | Oncology | Lionel Benson | | | 2019 | | | Ze Un[address] | | | | | | [address] | | | | | | [place] [address] | | | | | | [phone] | | | | | | | | +--------+ + + + + | 08/19/ | Appointment | Oncology | Elmer Silva | | | 2019 | | | E, [address] | | | | | | [place] | | | | | | [address] | | | | | | | | +--------+ + + + + | 08/19/ | Appointment | Infusion Therapy | Elmer Silva | | | 2019 | | | E, MD [address] | | | | | | [place] | | | | | | [address] | | | | | | | [...] [place] | | | | | | [address] | | | | | | | [...] [place] | | | | | | [address] | | | | | | | [...] [place] | | | | | | [address] | | | | | | | [...] [place] | | | | | | [id number] | | | | | | | | +--------+ + + + + documented as of this encounter Visit Diagnoses Not on filedocumented in this encounter"
--- OUTSIDE RECORDS SUMMARY | ~2020-08-08 | XMS | Encounter Summary ---
Demographics + + + | Address | [address] | | | [place] [address] | + + + | Home Phone [...] Author + + + | Author | [facility] | | | and [place] | + + + | Organization | [facility] | | | [...] Providers + +------+ + | Care Special Education Case Manager Name | Role | Phone | [...] [address] | | | | | 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, | [address] | | | | | adenocarcino | MD [address] | [place], | | | | | ma of brain | [address] | [place] [address] | | | | | (HCC) | [place], | Phone: | | | | | Procedures | [place] [address] | [phone] | | | | | CT Treatment | Phone: | Fax: | | | | | Plan | [phone] | [phone] | | | | | Complex | Fax: | | | | | | | [phone] | | +--------+--------+ + + + + [...] Ct [address] | | | | | 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, | [address] | | | | | adenocarcino | MD [address] | [place], | | | | | ma of brain | [address] | [place] [address] | | | | | (HCC) | [place], | Phone: | | | | | Procedures | [place] [address] | [phone] | | | | | CT Treatment | Phone: | Fax: | | | | | Plan | [phone] | [phone] | | | | | Complex | Fax: | | | | | | | [phone] | | +--------+--------+ + + + + Encounter Details +--------+ + + + + | Date | Type | Department | Care Team | Description | +--------+ + + + + | 03/11/ | Hospital | [facility] | Susie Montemayor | 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 | | | | | | | | +--------+ + + + + | 08/19/ | Appointment | Oncology | Elmer Silva | | 2019 | | | E, [address] | | | | | | [place], [place] | | | | | | [address] | | | | | | | | +--------+ + + + + | 08/19/ | Appointment | Infusion Therapy | Elmer Silva | | | 2019 | | | MD Lazaro Dominique | | | | | | [place] | | | | | | [address] | | | | | | | [...] [place] | | | | | | [address] | | | | | | | [...] [place] | | | | | | [address] | | | | | | | [...] [place] | | | | | | [address] | | | | | | | | +--------+ + + + + | 09/23/ | Appointment | Infusion Therapy | | | | 2019 | | | | | +--------+ + + + + | 11/22/ | Appointment | Radiation Oncology | Susie Montemayor | | | 2021 | | | MD Jared [address] | | | | | | ST [place] | | | | | | [address] | | | | | | | | +--------+ + + + + documented as of this encounter Procedures + +--------+ + + + | Procedure Name | Priori | Date/Time | Associated Diagnosis | Comments | | | ty | | | | + +--------+ + + + | CT TREATMENT PLAN | Routin | 03/11/2020 | Secondary | Results for this | | COMPLEX | e | 3:38 PM | adenocarcinoma of | procedure are in the | | | | PDT | brain (HCC) | results section. | + +--------+ + + + documented in this encounter Results CT Treatment Plan Complex (03/11/2020 3:38 PM PDT) + + | Specimen | [...] 350) 350 | Given | 03/11/20 | 85 mLs | | | | mg/mL injection 85 mL 85 mL, | | 20 3:39 | | | | | Intravenous, ONCE PRN, Other, for | | PM PDT | | | | | CT contrast study, Starting Mon | | | | | | | 03/11/20 at 1539, For 1 dose, | | | | | | | Radiology | | | | | | + +--------+ +--------+------+------+ +---+---+ | | | +---+---+ documented in this encounter"
--- OUTSIDE RECORDS SUMMARY | ~2020-08-08 | XMS | Encounter Summary ---
Demographics + + + | Address | [address] | | | [place] [address] | + + + | Home Phone [...] + | Author | [facility] | | | and [place] | + + + | Organization | [facility] | | | and [...] Team Providers + +------+ + | Care Drill Press Operator Numerical Control Name | Role | Phone | + +------+ + | Zuleyka Martínez | PCP | | + +------+ + Encounter Details +--------+ + + + + | Date | Type | Department | Care Team | Description | +--------+ + + + + | 03/20/ | Hospital | [facility] | Susie Montemayor | Secondary | | 2019 | Encounter | [facility] | MD Jared [address] | adenocarcinoma of | | | | ONCOLOGY CLINIC [address] | [address] [place], [place] | brain (HCC) (Primary | | | | [address] | [address] | Dx); Primary | | | | [place] [address] | | malignant neoplasm | | | | [phone] | | of female breast | | | | | | (HCC) [...] + + + | Blood Pressure | 129/81 | 03/20/2020 3:47 PM | | | | | PDT | | + + + + + | Pulse | 88 | 03/20/2020 3:47 PM | | | | | PDT | | + + + + + | Temperature | 36.6 C (97.9 F) | 03/20/2020 3:47 PM | | | | | PDT | | + + + + + | Respiratory Rate | 14 | 03/20/2020 3:47 PM | | | | | PDT | | + + + + + | Oxygen Saturation | 100% | 03/20/2020 3:47 PM | | | | | PDT | | + + + + + | Inhaled Oxygen | - | - | | | Concentration | | | | + + + + + | Weight | 82.9 kg (182 lb 12.2 | 03/20/2020 3:47 PM | | | | oz) | PDT | | + + + + + | Height | - | - | | + + + + + | Body Mass Index | 27.38 | 02/27/2020 6:30 AM | | | [...] encounter Progress Notes Susie Montemayor MD - 03/20/2020 3:00 PM PDT Radiation Oncology: Fractionated Radiosurgery Daily Treatment Note Diagnosis: ICD-10-CM ICD-9-CM 1. 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 Primary malignant neoplasm of female breast (HCC) C50.919 174.9 Olena Rider is receiving fractionated radiosurgery to a solitary brain metastasis. This regimen will consist of 3 fractions. Preparation for SRT Treatment Treatment planning was performed in advance of this SRT treatment delivery. The isodose jerel n consists of numerous beam arrangements consisting of 4 arcs that are arranged to deliver a high-focal [...] Franklin Majano M.S. Pre-Treatment Assessment Today is 1 Of 3 prescribed fractions. The dose to date is 900 cGy. The planned total dose is 2700 cGy. The patient's performance status was 90. Pre-treatment observations: Alert and oriented, no acute neurologic deficits. Procedure Summary The patient was escorted to the treatment room and the therapist conducted a timeout, pe r protocol, which is documented in the record. The therapist positioned the patient in the prescribed treatment position on the treatme nt table, exactly reproducing the position established during simulation. The following imm obilization system was used: The Editorialist SRS mask The physicist was also available to assist in verifying the patient's positional setup. Imaging Summary These ferrari were not simulated at a prior encounter. The imaging process began with CBCT imaging. I verified that the internal isocenter in t he reconstructed 3D volume is positioned appropriately in reference to the observed tumor lo cation in accordance with the previously designed treatment plan. Additional imaging consisted of ExacTrac KV orthogonal pair . These images were compare d to the approved DRRs and all required adjustments were made. I personally verified the pat ient's position and all treatment parameters. All images are date and time stamped. The following method, used to account for respiratory motion or other types of patient m otion, was used Immobilization and observation throughout treatment with ExacTrac KV IR and orthogonal pair. During the treatment delivery the patient position were continuously monitored. If the patient coughed or shifted position, the treatment was interrupted and the patient was reloc alized. The following ongoing images were taken during the treatment ExacTrac KV orthogonal pair . I personally reviewed these images real-time, the required adjustments were made, and nhung atment was continued. Procedure Summary I remained available throughout the delivery of the radiation treatment, which lasted from 3:22 to 3:39. I managed the execution of the treatment and made real time adjustments in r esponse to patient motion, target movement, or equipment issues to ensure accuracy and safet y. The patient did not require medication during the treatment. Post Treatment Exam The patient was evaluated following the treatment. Vitals: 03/20/20 1547 BP: 129/81 Pulse: 88 Resp: 14 Temp: 36.6 C (97.9 F) PainSc: 5 PainLoc: Head Physician Assessment: Tolerated SRT well, no acute issues. Plan of Care The plan of care is to: Continue treatment as planned. Instructions: f/u for next fraction on Wednesday03/22/20 Susie Montemayor M.D. Radiation Oncologist Department of Radiation Oncology [facility] Office: [phone] documented in this encounter Plan of Treatment [...] [place] | | | | | | [address] | | | | | | | | +--------+ + + + + | 08/12/ | Hospital | Infusion Therapy | Elmer Silva | | | 2019 | Encounter | | MD Lazaro [address] | | | | | | [place] | | | | | | [address] | | | | | | | | +--------+ + + + + | 08/12/ | Appointment | Oncology | Lionel Benson | | | 2019 | | | Ze Unger [address] | | | | | | [address] | | | | | | [place] [address] | | | | | | [phone] | | | | | | | | +--------+ + + + + | 08/19/ | Appointment | Oncology | Elmer Silva | | | 2019 | | | MD Trip [address] | | | | | | [place] | | | | | | [address] | | | | | | | | +--------+ + + + + | 08/19/ | Appointment | Infusion Therapy | Elmer Silva | | | 2019 | | | MD [address] | | | | | | [place] | | | | | | [address] | | | | | | | [...] [place] | | | | | | [address] | | | | | | | [...] [place] | | | | | | [address] | | | | | | | [...] [place] | | | | | | [address] | | | | | | | [...] [place] | | | | | | [address] | | | | | | | | +--------+ + + + + documented as of this encounter Visit Diagnoses + + | Diagnosis | + + | Secondary adenocarcinoma of brain (HCC) - Primary Secondary malignant neoplasm of | | brain and spinal cord | + + | Primary malignant neoplasm of female breast (HCC) | + + documented in this encounter"
--- OUTSIDE RECORDS SUMMARY | ~2020-08-08 | XMS | Encounter Summary ---
Demographics + + + | Address | [address] | | | [place] [address] | + + + | Home Phone [...] Team Providers + +------+ + | Care Dean Of [employer] Name | Role | Phone | + +------+ + | Zuleyka Martínez | PCP | | + +------+ + Encounter Details +--------+ + + + + | Date | Type | Department | Care Team | Description | +--------+ + + + + | 10/12/ | Hospital | [facility] | Susie Montemayor | Abnormal stress ECG | | 2016 | Encounter | [facility] | MD Jared [address] | with treadmill | | | | [facility]OGY CLINIC [address] | [address] [place], [place] | (Primary Dx); | | | | [address] [place] | [address] | Malignant neoplasm | | | | [place] [address] | | of thyroid gland | | | | [phone] | | (HCC); Precordial | | | [...] [place] | | | | | | [address] | | | | | | | | +--------+ + + + + | 08/12/ | Hospital | Infusion Therapy | Elmer Silva | | | 2019 | Encounter | | E, [address] | | | | | | [place] | | | | | | [address] | | | | | | | | +--------+ + + + + | 08/12/ | Appointment | Oncology | Lionel Benson | | | 2019 | | | J, PharmD [address] | | | | | | [address] [place] | | | | | | [place] [address] | | | | | | [phone] | | | | | | | | +--------+ + + + + | 08/19/ | Appointment | Oncology | Elmer Silva | | | 2019 | | | E, [address] | | | | | | [place] | | | | | | [address] | | | | | | | | +--------+ + + + + | 08/19/ | Appointment | Infusion Therapy | Elmer Silva | | | 2019 | | | MD [address]az[address] | | | | | | [place] | | | | | | [address] | | | | | | | [...] Visit | | E, MD [address] | | | | | | [place] | | | | | | [address] | | | | | | | | +--------+ + + + + | 09/09/ | Appointment | Infusion Therapy | | | | 2019 | | | | | +--------+ + + + + | 09/16/ | Office | Oncology | Elmer Silva | | | 2019 | Visit | | E, [address] | | | | | | [place] | | | | | | [address] | | | | | | | [...] [place] | | | | | | [address] | | | | | | | [...] [place] | | | | | | [address] | | | | | | | | +--------+ + + + + documented as of this encounter Procedures + +--------+ + + + | Procedure Name | Priori | Date/Time | Associated Diagnosis | Comments | | | ty | | | | + +--------+ + + + | EXTRA LAVENDER TOP | Routin | 10/12/2016 | Abnormal stress | Results for this | | TUBE | e | 8:09 AM | ECG with treadmill | procedure are in the | | | | PST | | results section. | + +--------+ + + + | THYROGLOBULIN | STAT | 10/12/2016 | Malignant neoplasm | Results for this | | | | 8:00 AM | of thyroid gland | procedure are in the | | | | PST | (HCC) | results section. | + +--------+ + + + | TSH | STAT | 10/12/2016 | Malignant neoplasm | Results for this | | | | 8:00 AM | of thyroid gland | procedure are in the | | | | PST | ([facility]) | results section. | + +--------+ + + + documented in this encounter Results Extra Lavender Top Tube (10/12/2016 8:09 AM PST) + +-------+ + + + | Component | Value | Ref Range | Performed | Pathologist | | | | | At | Signature | + +-------+ + + + | Extra | Done | | [facility] | | | Lavender | | | [facility] | | | Top Tube | [...] [address] | [place] | [phone] | | [facility] | | [address] | | | - LABORATORY | | | | + + + + + TSH (10/12/2016 8:00 AM PST) + + + + + + | Component | Value | Ref Range | Performed | Pathologist | | | | | At | Signature | + + + + + + | TSH | 0.91Comment: All TSH | 0.34 - 5.60 | [facility] | | | | samples are screened | uIU/mL | [facility] | | | | using a 2nd [...] [address] | [place] | [phone] | | [facility] | | [address] | | | - LABORATORY | | | | + + + + + Thyroglobulin,Reflex (10/12/2016 8:00 AM PST) + + + + + + | Component | Value | Ref Range | Performed | Pathologist | | | | | At | Signature | + + + + + + | Thyroglobul | <0.9Comment: Testing | 0.0 - 4.0 IU/mL | [facility] | | | in Ab | Performed: [facility], [address] | | [facility] | | | | [address], [place] | | | | | | [address] | | | | + + + + + + | Thyroglobul | 0.5 (L)Comment: The | 1.2 - 35.0 | [facility] | | | in | [facility] Desha | ng/mL | [facility] | | [...] | | | | | [address] [place] | | | | | | [address] | | | | + + + + + + + + | Specimen | + + | Blood specimen | | (specimen) | + + + + + | Narrative | Performed At | + + + | Patient will need lab drawn before first thyrogen injection | [facility] | | | [facility] | + + + + + + + + | Performing | Address | City/State/Zipcode | Phone Number | | Organization | | | | + + + + + | [facility] | [address] | [place] [address] | [phone] | + + + + + documented [...]
--- OUTSIDE RECORDS SUMMARY | ~2020-08-08 | XMS | Encounter Summary ---
Demographics + + + | Address | [address] | | | [place] [address] | + + + | Home Phone [...] Author + + + | Author | [facility] | | | and [place] | + + + | Organization | [facility] | | [...] Team Providers + +------+ + | Care Bobbin Cleaner Name | Role | Phone | + [...] | | | [address] [place] | [place] [address] | | | | | [place] [address] | | | | | | [phone] | | | +--------+ + + + [...] [place] | | | | | | [address] | | | | | | | | +--------+ + + + + | 08/12/ | Hospital | Infusion Therapy | Elmer Silva | | | 2019 | Encounter | | MD [address] | | | | | | [place] | | | | | | [address] | | | | | | | | +--------+ + + + + | 08/12/ | Appointment | Oncology | Lionel Benson | | | 2019 | | | Ze Un[address] | | | | | | [address] [place] | | | | | | [place] [address] | | | | | | [phone] | | | | | | | | +--------+ + + + + | 08/19/ | Appointment | Oncology | Elmer Silva | | | 2019 | | | Trip, [address] | | | | | | [place] | | | | | | [address] | | | | | | | | +--------+ + + + + | 08/19/ | Appointment | Infusion Therapy | Elmer Silva | | | 2019 | | | E, [address] | | | | | | [place], [place] | | | | | | [address] | | | | | | | [...] [place] | | | | | | [address] | | | | | | | [...] [place] | | | | | | [address] | | | | | | | [...] [place] | | | | | | [address] | | | | | | | [...] [place] | | | | | | [address] | | | | | | | | +--------+ + + + + documented as of this encounter Procedures + +--------+ + + + | Procedure Name | Priori | Date/Time | Associated Diagnosis | Comments | | | ty | | | | + +--------+ + + + | US BREAST LIMITED | Routin | 08/16/2014 | | Results for this | | RIGHT | e | 12:00 AM | | procedure are in the | | | | PDT | | results section. | + +--------+ + + + documented in this encounter Results US Breast Limited Right (08/16/2014 12:00 AM PDT) + + | Specimen [...]
--- OUTSIDE RECORDS SUMMARY | ~2020-08-08 | XMS | Encounter Summary ---
Demographics + + + | Address | [address] | | | [place] [address] | + + + | Home Phone [...] Team Providers + +------+ + | Care Squaring Shear Operator Name | Role | Phone | [...] | | | (ICD-9-CM) - | [address] [place] | | | | | Non-small | [place], | [place], [place] | | | | | cell cancer | [place] | [address] Phone: | | | | | of right | [address] | [phone] | | | | | lung | Phone: | Fax: | | | | | Procedures | [phone] | [phone] | | | | | [address] | Fax: | | | | | | | [phone] | | +--------+--------+ + + + + Encounter Details +--------+ + + + + | Date | Type | Department | Care Team | Description | +--------+ + + + + | 12/06/ | Hospital | [facility] | [facility] | Thyroid cancer | | 2020 | Encounter | [facility] | MD Bebeto [address] | (HCC); Non-small | | | | [facility] [address] [place] | cell cancer of right | | | | [address] [place] | [place] [address] | lung (HCC); Adenoma | | | | [place] [address] | [phone] | of left adrenal | | | | [phone] | | gland; Diverticular | | | | | | disease of colon; | | | | | | Encounter for | | | | | | therapeutic drug | | | | | | level monitoring; | | | | | | Papillary thyroid | | | | | | carcinoma (HCC); | | | | | | Primary malignant | | | | | | neoplasm of female | | | | | | breast (HCC); | | | | | | Abnormal stress ECG | | | | | | with treadmill; | | | | | | Chronic nonmalignant | | | | | | pain; Family | | | | | | history of breast | | | | | | cancer; Malignant | | | | | | neoplasm of lower | | | | | | lobe of right lung | | | | | | (HCC); Postoperative | | | | | | hypothyroidism | +--------+ + + + + Social [...] + + + | Blood Pressure | 106/74 | 12/06/2019 3:23 PM | | | | | PST | | + + + + + | Pulse | 61 | 12/06/2019 3:23 PM | | | | | PST | | + + + + + | Temperature | 36.3 C (97.3 F) | 12/06/2019 3:23 PM | | | | | PST | | + + + + + | Respiratory Rate | 16 | 12/06/2019 3:23 PM | | | | | PST | | + + + + + | Oxygen Saturation | 100% | 12/06/2019 3:23 PM | | | | | PST | | + + + + + | Inhaled Oxygen | - | - | | | Concentration | | | | + + + + + | Weight | 84.7 kg (186 lb 11.7 | 12/06/2019 3:23 PM | | | | oz) | PST | | + + + + + | Height | - | - | | + + + + + | Body Mass Index | 28.3 | 08/08/2019 3:00 PM | | | [...] of this encounter Progress Notes Amanda Mckenna, BEAUTY CULTURIST - 12/06/2019 3:40 PM PSTREVIEW OF SYSTEMS Constitutional: Denies high fevers, shaking chills, anorexia, nausea, vomiting, weight los s, or night sweats. Appetite without changes. States over the past 4-5 week not feeling gre at, increased fatigue and low appetite. Weight loss of 5 lbs. Intermittent nausea continues. Ear, Nose, Mouth, Throat: Denies odynophagia, dysphagia, [...] other skin concerns. Pain: Denies pain. Note: Here for follow up and labs My chart: Active Milton Ojeda MD - 12/06/2019 3:40 PM PSTFormatting of this note might be different from the origi nal. Hem-Onc Progress Note [facility] Pt. Name/Age/: Olena Rider 59 y.o. 1960 Med. Record Number: [id number] Date of admission: (Not on file) Assessment and plan: 1. Non-small cell lung [...] grade pT1c pN 0(sn) ER+(99% , strong), MA+(60%, strong), Her2 non-amplified (FISH ratio 1.06) Status post left lumpectomy, sentinel lymph node biopsy, Dr. Luis Felipe Pugh, 2018 Review of today's laboratory testing and then authorization for resumption of exemestane at the 25 mg per day dose level. Goal is for treatment to continue over the next 5 years. On cology follow-up now to continue quarterly. Reminder concerning acute musculoskeletal toxic ity from treatment and for patient to contact us should discomfort beginning to limit activi ties of daily living. Subjective: The patient chart and medications were reviewed in detail and the patient was seen and exam ined. Olena Rider is a 59 y.o. female who returns today for follow-up and counseling with regard to hormonal adjuvant therapy for breast cancer. Patient has now completed a program of breast radiation therapy following earlier lumpectom y. She had initially begun a prescription for exemestane but then stopped at the time of ra diation therapy and had shows and then not to resume treatment until our visit today. Katherine nt however otherwise feeling well and is largely recovered from untoward effects from those treatments. PSH: Reviewed, no changes to admission H&P. Review of Systems: Constitutional: Denies high fevers, shaking chills, anorexia, nausea, vomiting, weight los s, or night sweats. Appetite without changes. States over the past 4-5 week not feeling gre at, increased fatigue and low appetite. Weight loss of 5 lbs. Intermittent nausea continues. Ear, Nose, Mouth, Throat: Denies odynophagia, dysphagia, [...] or other skin concerns. Pain: Denies pain. Review of systems as above otherwise negative Scheduled Medications: Continuous Infusions: PRN Meds:. Allergy: Allergies Allergen Reactions Morphine Anaphylaxis and Other (See Comments) Morphine And Related Other (See Comments) "unknown reaction - trouble breathing after hysterectomy" Objectives: on Min/Max Temp past 24 hours:No data recorded No intake or output data in the 24 hours ending 12/06/19 1419 Wt. Admission: Wt. Current: Physical Exam: Exam: General: The patient is alert and oriented. No acute distress. Psychiatric: Normal mood and affect. Diagnostic studies: Electronically signed by: Milton Salazar MD, 12/06/2019 2:19 PM [facility] TIME SPENT 20 MIN. > 50% AT BEDSIDE, WITH FAMILY/PATIENT IN CARE AND GREENHOUSE TRANSPLANTER ON UNIT AND CO ORDINATION OF CARE Portions of this chart may have been created with [employer] voice recognition software. Occasi onal wrong-word or [...] [place] | | | | | | [place], [place] | | | | | | [address] | | | | | | | | +--------+ + + + + | 08/12/ | Hospital | Infusion Therapy | Elmer Silva | | | 2019 | Encounter | | E, [address] | | | | | [address] [place] | | | | | | [address] | | | | | | | | +--------+ + + + + | 08/12/ | Appointment | Oncology | Lionel Benson | | | 2019 | | | J, PharmCorky [address] | | | | | | [address] [place] | | | | | | [place] [address] | | | | | | [phone] | | | | | | | | +--------+ + + + + | 08/19/ | Appointment | Oncology | Elmer Silva | | | 2019 | | | E, [address] | | | | | [address] [place], [place] | | | | | | [address] | | | | | | | | +--------+ + + + + | 08/19/ | Appointment | Infusion Therapy | Elmer Silva | | | 2019 | | | MD [address] | | | | | | [place] | | | | | | [address] | | | | | | | [...] [place] | | | | | | [address] | | | | | | | [...] [place] | | | | | | [address] | | | | | | | [...] [place] | | | | | | [address] | | | | | | | [...] [place] | | | | | | [address] | | | | | | | | +--------+ + + + + documented as of this encounter Procedures + +--------+ + + + | Procedure Name | Priori | Date/Time | Associated Diagnosis | Comments | | | ty | | | | + +--------+ + + + | CBC WITH | STAT | 12/06/2019 | Thyroid cancer | Results for this | | DIFFERENTIAL | | 2:18 PM | (HCC) Non-small | procedure are in the | | | | PST | cell cancer of right | results section. | | | | | lung (HCC) Adenoma | | | | | | of left adrenal | | | | | | gland Diverticular | | | | | | disease of colon | | | | | | Encounter for | | | | | | therapeutic drug | | | | | | level monitoring | | | | | | Papillary thyroid | | | | | | carcinoma (HCC) | | | | | | Primary malignant | | | | | | neoplasm of female | | | | | | breast (HCC) | | + +--------+ + + + | COMPREHENSIVE | STAT | 12/06/2019 | Thyroid cancer | Results for this | | METABOLIC PANEL | | 2:18 PM | (HCC) Non-small | procedure are in the | | | | PST | cell cancer of right | results section. | | | | | lung (HCC) Adenoma | | | | | | of left adrenal | | | | | | gland Diverticular | | | | | | disease of colon | | | | | | Encounter for | | | | | | therapeutic drug | | | | | | level monitoring | | | | | | Papillary thyroid | | | | | | carcinoma (HCC) | | | | | | Primary malignant | | | | | | neoplasm of female | | | | | | breast (HCC) | | + +--------+ + + + documented in this encounter Results Comprehensive Metabolic Panel (12/06/2019 2:18 PM PST) + + + + + + | Component | Value | Ref Range | Performed | Pathologist | | | | | At | Signature | + + + + + + | Na | 138 | 136 - 145 | [facility] | [...] + + | Cl | 105 | 98 - 107 mmol/L | [facility] | | | | | | [facility] | [facility] | [facility] | | | | | [facility] - | | | | | | LABORATORY | | + + + + + + | CO2 | 36 (H) | 20 - 31 mmol/L | [facility] | | | | | | [facility] | | | [facility] | [facility] | | | | | | [facility] - | | | | | | LABORATORY | | + + + + + + | Anion Gap | -3 (L) | 3 - 16 mmol/L | [facility] | | | | | | [facility] | | | | | | [facility] | | | | | | [facility] - | | | | | | LABORATORY | | + + + + + + | Glucose | 110 (H) | 60 - 106 mg/dL | [...] + + + + | Creatinine | 0.90 | 0.55 - 1.02 | [facility] | [...] mL/min/1.73m2 | [facility] | | | [place] | RATE,ESTIMATED | | MEDICAL | | | | mL/min/1.37v1Amqc than | | CENTER - | | [...] + + | Calcium | 9.3 | 8.7 - 10.4 | [facility] | | | | | mg/dL | [facility] | | | | | | [facility] | | | | | | C[facility] - | | | | | | LABORATORY | | + + + + + + | Albumin | 4.3 | 3.2 - 4.8 g/dL | [facility] | | | | | | [facility] | | | | | | [facility] | | | | | | [facility] - | | | | | | LABORATORY | | + + + + + + | Bilirubin | 0.3 | 0.3 - 1.2 mg/dL | [facility] | | | Total | | | [facility] | | | | | | [facility] | | | | | | [facility] - | | | | | | LABORATORY | | + + + + + + | Total | 6.9 | 5.7 - 8.2 g/dL | [facility] | | | Protein | | | [facility] | | | | | | [facility] | | | | | | [facility] - | | | | | | LABORATORY | | + + + + + + | AST | 13 | 0 - 34 U/L | [facility] | | | | | | [facility] | | | | | | [facility] | | | | | | [facility] - | | | | | | LABORATORY | | + + + + + + | ALT | <7 (L) | 10 - 49 U/L | [facility] | | | | | | [facility] | | | | | | [facility] | | | | | | [facility] - | | | | | | LABORATORY | | + + + + + + | Alkaline | 91 | 46 - 116 U/L | [facility] [...] + + + + | Albumin/Yuli | 1.7 | 0.8 - 1.9 | [facility] | | | bulin Ratio | | | [facility] | | | | | | [facility] | | | | | | [facility] - | | | | | | LABORATORY | | + + + + + + | BUN/Creatin | 10.0 | | [facility] | | | ine [...] + | [facility] | [address] | [place] | [phone] | | [facility] | | [address] | | | - LABORATORY | | | | + + + + + CBC with Differential (12/06/2019 2:18 PM PST) + +-------+ + + + | Component | Value | Ref Range | Performed | Pathologist | | | | | At | Signature | + +-------+ + + + | White Blood | 8.4 | 4.0 - 11.0 K/uL | [facility] | | | Cells | | | [facility] | | | | | [facility] | | | | | | [facility] - | | | | | | LABORATORY | | + +-------+ + + + | Red Blood | 4.56 | 3.70 - 5.20 | [facility] | | | Cells | | M/uL | [facility] | | | | | | [facility] | | | | | | [facility] - | | | | | | LABORATORY | | + +-------+ + + + | Hemoglobin | 13.8 | 11.5 - 16.0 | [facility] | | | | | g/dL | [facility] | | | | | | [facility] | | | | | | CENTER - | | | | | | LABORATORY | | + +-------+ + + + | Hematocrit | 42.2 | 34.0 - 47.0 % | [facility] | | | | | | [facility] | | | | | | [facility] | | | | | | [facility] - | | | | | | LABORATORY | | + +-------+ + + + | MCV | 92.5 | 83.0 - 101.0 fL | [facility] | | | | | | [facility] | | | | | | [facility] | | | | | | [facility] - | | | | | | LABORATORY | | + +-------+ + + + | MCH | 30.3 | 28.0 - 35.0 pg | [facility] | | | | | | [facility] | | | | | | [facility] | | | | | | [facility] - | | | | | | LABORATORY | | + +-------+ + + + | MCHC | 32.7 | 32.0 - 36.0 | [facility] | | | | | g/dL | [facility] | | | | | | [facility] | | | | | | [facility] - | | | | | | LABORATORY | | + +-------+ + + + | RDW-CV | 12.5 | <15.0 % | [facility] | | | | | | [facility] | | | | | | [facility] | | | | | | [facility] - | | | | | | LABORATORY | | + +-------+ + + + | RDW-SD | 42.7 | 35.1 - 46.3 fL | [facility] | | | | | | [facility] | | | | | | [facility] | | | | | | [facility] - | | | | | | LABORATORY | | + +-------+ + + + | Platelet | 297 | 140 - 440 K/uL | [facility] | | | Count | | | [facility] | | | | | | [facility] | | | | | | [facility] - | | | | | | LABORATORY | | + +-------+ + + + | MPV | 9.8 | 6.5 - 12.4 fL | [facility] | | | | | | [facility] | | | | | | [facility] | | | | | | [facility] - | | | | | | LABORATORY | | + +-------+ + + + | % | 51.3 | 45.0 - 82.0 % | [facility] | | | Neutrophils | | | [facility] | | | | | | [facility] | | | | | | CENTER - | | | | | | LABORATORY | | + +-------+ + + + | % | 36.0 | 20.0 - 45.0 % | [facility] | | | Lymphocytes | | | [facility] | | | | | | [facility] | | | | | | C[facility] - | | | | | | LABORATORY | | + +-------+ + + + | % Monocytes | 7.8 | 4.0 - 12.0 % | [facility] | | | | | | [facility] | | | | | | [facility] | | | | | | [facility] - | | | | | | LABORATORY | | + +-------+ + + + | % | 3.7 | 0.0 - 5.0 % | [facility] | | | Eosinophils | | | [facility] | | | | | | [facility] | | | | | | CENTER - | | | | | | LABORATORY | | + +-------+ + + + | % Basophils | 1.0 | 0.0 - 1.0 % | [facility] | | | | | | [facility] | | | | | | [facility] | | | | | | [facility] - | | | | | | LABORATORY | | + +-------+ + + + | % Immature | 0.2 | 0.0 - 0.4 % | [facility] | | | Granulocyte | | | [facility] | | | s | | | MEDICAL | | | | | | CENTER - | | | | | | LABORATORY | | + +-------+ + + + | Absolute | 4.30 | 1.80 - 8.50 | [facility] | | | Neutrophils | | K/uL | [facility] | | | | | | [facility] | | | | | | C[facility] - | | | | | | LABORATORY | | + +-------+ + + + | Absolute | 3.02 | 0.60 - 3.20 | [facility] | | | Lymphocytes | | K/uL | [facility] | | | | | | [facility] | | | | | | CENTER - | | | | | | LABORATORY | | + +-------+ + + + | Absolute | 0.65 | 0.00 - 1.00 | [facility] | | | Monocytes | | K/uL | [facility] | | | | | | [facility] | | | | | | CENTER - | | | | | | LABORATORY | | + +-------+ + + + | Absolute | 0.31 | 0.00 - 0.40 | [facility] | | | Eosinophils | | K/uL | [facility] | | | | | | [facility] | | | | | | CENTER - | | | | | | LABORATORY | | + +-------+ + + + | Absolute | 0.08 | 0.00 - 0.10 | [facility] | | | Basophils | | K/uL | [facility] | | | | | | [facility] | | | | | | CENTER - | | | | | | LABORATORY | | + +-------+ + + + | Absolute | 0.02 | 0.00 - 0.03 | [facility] | | | Immature | | K/uL | [facility] | | | Granulocyte | | | MEDICAL | | | s | | | CENTER - | | | | | | LABORATORY | | + +-------+ + + + | % nRBC | [...] [address] | [place] | [phone] | | [facility] | | [address] | | | - LABORATORY | | | | + + + + + documented in this encounter Visit Diagnoses + + | Diagnosis | + + | Thyroid cancer (HCC) Malignant neoplasm of thyroid gland | + + | Non-small cell cancer of right lung (HCC) | + + | Adenoma of left adrenal gland Benign neoplasm of adrenal gland | + + | Diverticular disease of colon Diverticulosis of colon (without mention of hemorrhage) | + + | Encounter for therapeutic drug level monitoring Encounter for therapeutic drug | | monitoring | + + | Papillary thyroid carcinoma (HCC) Malignant neoplasm of thyroid gland | + + | Primary malignant neoplasm of female breast (HCC) | + + | Abnormal stress ECG with treadmill Other nonspecific abnormal cardiovascular system | | function study | + + | Chronic nonmalignant pain | + + | Family history of breast cancer Family history of malignant neoplasm of breast | + + | Malignant neoplasm of lower lobe of right lung (HCC) | + + | Postoperative hypothyroidism Postsurgical hypothyroidism | + + documented in this encounter
--- OUTSIDE RECORDS SUMMARY | ~2020-08-08 | XMS | Encounter Summary ---
Demographics + + + | Address | [address] | | | [place] [address] | + + + | Home Phone [...] Team Providers + +------+ + | Care Cullet Crusher And Washer Name | Role | Phone | + +------+ + | Zuleyka Martínez | PCP | | + +------+ + Encounter Details +--------+ + + + + | Date | Type | Department | Care Team | Description | +--------+ + + + + | 02/14/ | Orders Only | [facility] | Lemuel Da Silva DO | Brain mass (Primary | | 2020 | | NEUROSURGERY [address] | Dx) | | | | [address] | [address] | | | | | [place], [place] | [place] [address] | | | | | [address] | [phone] | | | | | [phone] | | | +--------+ + + + [...] Board Certified Neurosurgeon / Chief of Neurosurgery [facility] [place] [facility] documented in this enc ounter Plan of Treatment +--------+ + + + + | Date | Type | Specialty | Care Team | Description | +--------+ + + + + | 08/12/ | Appointment | Oncology | Elmer Silva | | | 2019 | | | E, MD [address] | | | | | | [place] | | | | | | [address] | | | | | | | | +--------+ + + + + | 08/12/ | Hospital | Infusion Therapy | Elmer Silva | | | 2019 | Encounter | | E, [address] | | | | | | [place] | | | | | | [address] | | | | | | | | +--------+ + + + + | 08/12/ | Appointment | Oncology | Lionel Benson | | | 2019 | | | J, PharmD [address] | | | | | | [address] [facility] | | | | | | [place] [address] | | | | | | [phone] | | | | | | | | +--------+ + + + + | 08/19/ | Appointment | Oncology | Elmer Silva | | | 2019 | | | E, [address] | | | | | | [place] | | | | | | [address] | | | | | | | | +--------+ + + + + | 08/19/ | Appointment | Infusion Therapy | Elmer Silva | | | 2019 | | | E, [address] | | | | | | [place], [place] | | | | | | [address] | | | | | | | [...] [place] | | | | | | [address] | | | | | | | | +--------+ + + + + | 09/09/ | Appointment | Infusion Therapy | | | | 2019 | | | | | +--------+ + + + + | 09/16/ | Office | Oncology | lEmer Silva | | | 2019 | Visit | | MD [address] | | | | | | [place] | | | | | | [address] | | | | | | | [...] [place] | | | | | | [address] | | | | | | | [...] [place] | | | | | | [address] | | | | | | | | +--------+ + + + + documented as of this encounter Visit Diagnoses + + | Diagnosis | + + | Brain mass - Primary Unspecified condition of brain | + + documented in this encounter"
--- OUTSIDE RECORDS SUMMARY | ~2020-08-08 | XMS | Encounter Summary ---
Demographics + + + | Address | [address] | | | [place] [address] | + + + | Home Phone | | + + + | Preferred Language | Unknown | + + + | Marital Status | Single | + + + | Voodoo Affiliation | Unknown | + + + [...] Team Providers + +------+ + | Care Wage And Hour Investigator Name | Role | Phone | [...] 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, | [address] | | | | | adenocarcino | MD [address] | [place], | | | | | ma of brain | [address] | [place] | | | | | ([facility]) | [place], | [address] | | | | | Procedures | [place] [address] | Phone: | | | | | MRI Brain w | Phone: | [phone] | | | | | wo Contrast | [phone] | Fax: | | | | | KP | Fax: | [phone] | | | | | FUTURE ORDER | [phone] | | | | | | (JUNE [...] Secondary | Susie Coleman, | [address] | | | | | adenocarcino | MD [address] | [place], | | | | | ma of brain | [address] | [place] | | | | | (HCC) | [place], | [address] | | | | | Procedures | [place] [address] | Phone: | | | | | MRI Brain w | Phone: | [phone] | | | | | wo Contrast | [phone] | Fax: | | | | | KP | Fax: | [phone] | | | | | FUTURE ORDER | [phone] | | | | | | (JUNE | | | | | | | 2019) | | | +--------+--------+ + + + + Encounter Details +--------+ + + + + | Date | Type | Department | Care Team | Description | +--------+ + + + + | 06/17/ | Hospital | [facility] | Susie Montemayor | 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[place], | [place] | brain (HCC) | | | | [place] [address] | [address] | | | | | [phone] | | | +--------+ + + + [...] [place] | | | | | | [address] | | | | | | | | +--------+ + + + + | 08/12/ | Hospital | Infusion Therapy | Elmer Silva | | | 2019 | Encounter | | MD [address] | | | | | | [place] | | | | | | [address] | | | | | | | | +--------+ + + + + | 08/12/ | Appointment | Oncology | Lionel Benson | | 2019 | | | Ze Unger [address] | | | | | | [address] [place] | | | | | | [place] [address] | | | | | | [phone] | | | | | | | | +--------+ + + + + | 08/19/ | Appointment | Oncology | Elmer Silva | | | 2019 | | | E, [address] | | | | | | [place], [place] | | | | | | [address] | | | | | | | | +--------+ + + + + | 08/19/ | Appointment | Infusion Therapy | Elmer Silva | | | 2019 | | | E, [address] | | | | | | [place], [place] | | | | | | [address] | | | | | | | [...] [place] | | | | | | [address] | | | | | | | [...] [place] | | | | | | [address] | | | | | | | [...] [place] | | | | | | [address] | | | | | | | [...] [place] | | | | | | [address] | | | | | | | [...] | | | | PDT | brain ([facility]) | results section. | + +--------+ + [...] AM | [facility] | | HISTORY: Brain/DATASTAGE DEVELOPER neoplasm, assess treatment response COMPARISON: | | [...] Procedure Note | + + | Christopher, [id number] - 06/17/2020 3:00 PM PDT EXAM: MRI BRAIN W WO CONTRAST dated 06/17/2020 | | 10:35 AMHISTORY: Brain/DATASTAGE DEVELOPER neoplasm, assess treatment responseCOMPARISON: MRI 01/22/2020. | [...]
--- OUTSIDE RECORDS SUMMARY | ~2020-08-08 | XMS | Encounter Summary ---
Demographics + + + | Address | [address] | | | [place] [address] | + + + | Home Phone [...] Team Providers + +------+ + | Care Structural Mill Supervisor Name | Role | Phone | [...] | Malignant | Salazar, | [address] | | | | | neoplasm of | [place] | [place], | | | | | lower lobe | MD Bebeto | [place] | | | | | of right | [address] | [address] | | | | | lung (HCC) | [place] | Phone: | | | | | Procedures | [place] | [phone] | | | | | MRI Brain w | [address] | Fax: | | | | | wo Contrast | Phone: | [phone] | | | | | | [phone] | | | | | | | Fax: | | | | | | | [phone] | | +--------+--------+ + + + + [...] | Malignant | Salazar, | [address] | | | | | neoplasm of | [place] | [place], | | | | | lower lobe | MD Bebeto | [place] | | | | | of right | [address] | [address] | | | | | lung (HCC) | [place] | Phone: | | | | | Procedures | [place], [place] | [phone] | | | | | MRI Brain w | [address] | Fax: | | | | | wo Contrast | Phone: | [phone] | | | | | | [phone] | | | | | | | Fax: | | | | | | | [phone] | | +--------+--------+ + + + + Encounter Details +--------+ + + + + | Date | Type | Department | Care Team | Description | +--------+ + + + + | 01/21/ | Hospital | [facility] | Milton Salazar | Malignant neoplasm | | 2020 | Encounter | [facility] MRI [address] | Bebeto, MD [address] | of lower lobe of | | | | [address] [place], | [address] [place] | right lung (HCC) | | | | [place] [address] | [place] [address] | | | | | [phone] | [phone] | | | | | | | [...] Dominique | | | | | | [place], [place] | | | | | | [address] | | | | | | | | +--------+ + + + + | 08/12/ | Hospital | Infusion Therapy | Elmer Silva | | 2019 | Encounter | | E, MD [address] | | | | | | [place], [place] | | | | | | [address] | | | | | | | | +--------+ + + + + | 08/12/ | Appointment | Oncology | Lionel Benson | | | 2019 | | | JZe [address] | | | | | | [address] [place] | | | | | | [place] [address] | | | | | | [phone] | | | | | | | | +--------+ + + + + | 08/19/ | Appointment | Oncology | Elmer Silva | | | 2019 | | | E, [address] | | | | | | [place], [place] | | | | | | [address] | | | | | | | | +--------+ + + + + | 08/19/ | Appointment | Infusion Therapy | Elmer Silva | | | 2019 | | | E, [address] | | | | | | [place], [place] | | | | | | [address] | | | | | | | [...] [place] | | | | | | [address] | | | | | | | | +--------+ + + + + | 09/09/ | Appointment | Infusion Therapy | | | | 2019 | | | | | +--------+ + + + + | 09/16/ | Office | Oncology | Elmer Silva | | | 2019 | Visit | | E, MD [address] | | | | | | [place] | | | | | | [address] | | | | | | | | +--------+ + + + + | 09/16/ | Appointment | Infusion Therapy | | | | 2019 | | | | | +--------+ + + + + | 09/23/ | Office | Oncology | RiccardobrandiElmer davenport | | | 2019 | Visit | | MD Lazaro Dominique | | | | | | [place] | | | | | | [address] [...] [place] | | | | | | [address] | | | | | | | [...] AM HISTORY: | [facility] | | Brain/X RAY EQUIPMENT TESTER neoplasm, staging COMPARISON: CT ORBIT 01/04/2020 | [...] CONTRAST dated | | 01/22/2020 7:35 AMHISTORY: Brain/X RAY EQUIPMENT TESTER neoplasm, stagingCOMPARISON: CT ORBIT | | 01/04/2020TECHNIQUE: [...]
--- OUTSIDE RECORDS SUMMARY | ~2020-08-08 | XMS | Encounter Summary ---
Demographics + + + | Address | [address] | | | [place] [address] | + + + | Home Phone [...] Team Providers + +------+ + | Care Correctional Facility Psychiatrist Name | Role | Phone | + [...] | | | [address] [place] | [place] [address] | | | | | [facility] [place] [address] | | | | | | [phone] | | | +--------+ + + + [...] [place] | | | | | | [address] | | | | | | | | +--------+ + + + + | 08/12/ | Hospital | Infusion Therapy | Elmer Silva | | | 2019 | Encounter | | MD Lazaro Dominique [address] | | | | | | [place] | | | | | | [address] | | | | | | | | +--------+ + + + + | 08/12/ | Appointment | Oncology | Lionel Benson | | 2019 | | | Ze Unger [address] | | | | | | [address] | | | | | | [place] [address] | | | | | | [phone] | | | | | | | | +--------+ + + + + | 08/19/ | Appointment | Oncology | Elmer Silva | | | 2019 | | | E, MD Lazaro LOZA | | | | | | [place] | | | | | | [address] | | | | | | | | +--------+ + + + + | 08/19/ | Appointment | Infusion Therapy | Elmer Silva | | | 2019 | | | E, MD Lazaro LOZA | | | | | | [place] | | | | | | [address] | | | | | | | [...] [place] | | | | | | [address] | | | | | | | [...] [place] | | | | | | [address] | | | | | | | [...] [place] | | | | | | [address] | | | | | | | | +--------+ + + + + | 09/23/ | Appointment | Infusion Therapy | | | | 2019 | | | | | +--------+ + + + + | 11/22/ | Appointment | Radiation Oncology | Susie Montemayor | | | 2020 | | | MD Lazaro [address] | | | | | | [place], [place] | | | | | | [address] | | | | | | | | +--------+ + + + + documented as of this encounter Procedures + +--------+ + + + | Procedure Name | Priori | Date/Time | Associated Diagnosis | Comments | | | ty | | | | + +--------+ + + + | ADAM TOMOSYN | Routin | 06/13/2019 | | Results for this | | DIAGNOSTIC RIGHT | e | 12:00 AM | | procedure are in the | | | | PDT | | results section. | + +--------+ + + + documented in this encounter Results ADAM Tomosynthesis Diagnostic Right (06/13/2019 12:00 AM PDT) + + | Specimen [...]
--- OUTSIDE RECORDS SUMMARY | ~2020-08-08 | XMS | Encounter Summary ---
Demographics + + + | Address | [address] | | | [place] [address] | + + + | Home Phone | | + + + | Preferred Language | Unknown | + + + | Marital Status | Single | + + + | Jainism Affiliation | Unknown | + + + [...] Team Providers + +------+ + | Care Placement Manager Name | Role | Phone | [...] | +--------+ + + + + | 05/03/ | Hospital | [facility] | Milton Salazar | Abnormal stress ECG | | 2017 | Encounter | [facility] | MD Bebeto [address] | with treadmill | | | | [facility] [address] [place] | (Primary Dx); | | | | [facility] | [place] [address] | Thyroid cancer | | | | [place] [address] | [phone] | (HCC); Malignant | | | | [phone] | | neoplasm of thyroid | | | | | Lionel Benson, | gland (HCC); | | | | | PharmD [address] | Non-small cell | | | | | ST [place], [place] | cancer of right lung | | | | | [address] | (HCC); Pneumothorax | | | | | | after biopsy | +--------+ + + + + Social [...] + + + | Blood Pressure | 123/76 | 05/03/2017 11:14 AM | | | | | PDT | | + + + + + | Pulse | 87 | 05/03/2017 11:14 AM | | | | | PDT | | + + + + + | Temperature | 37.2 C (99 F) | 05/03/2017 11:14 AM | | | | | PDT | | + + + + + | Respiratory Rate | 18 | 05/03/2017 11:14 AM | | | | | PDT | | + + + + + | Oxygen Saturation | 99% | 05/03/2017 11:14 AM | | | | | PDT | | + + + + + | Inhaled Oxygen | - | - | | | Concentration | | | | + + + + + | Weight | 82.3 kg (181 lb 8 | 05/03/2017 11:14 AM | | | | oz) | PDT | | + + + + + | Height | - | - | | + + + + + | Body Mass Index | 27.6 | 11/04/2016 9:00 AM | | | [...] documented as of this encounter Progress Notes Lionel Benson, PharmD - 05/03/2017 11:54 AM PDTFormatting of this note might be differ ent from the original. Clinical Oncology Pharmacy Services Progress Note [facility] Pt. Name/Age/: Olena Rider 56 y.o. 1960 CSN: [id number] Date of service: 05/03/2017 Provider: Lionel Benson, PharmD Identifying Statement: Olena Rider is a 56 y.o. female [place] [address] [place] [address], The primary encounter diagnosis was Abnormal stress ECG with treadmill. Diagnoses of Thyroid cancer (HCC), Malignant neoplasm of thyroid gland (HCC), Non-small regina l cancer of right lung (HCC), and Pneumothorax after biopsy were also pertinent to this visi t. The patient chart and medications were reviewed in detail and the patient was seen and exam ined. Patient was referred to Clinical Oncology Pharmacist for trae check. Assessment and plan: Patient tolerated her adjuvant chemotherapy regimen relatively well, having completed four cycles of carboplatin/pemetrexed on 04/23/17. She complains of ongoing fatigue, which corresp onds with her worsening anemia. Her mouth is sore, but no mouth sores are visible on exam. D iscussed in detail with Dr Salazar who is in agreement with the below plan. 1. Continue folic acid daily supplementation to help with possible mucositis from pemetrexe d. 2. Sodium bicarbonate mouth rinse 5 times daily as needed. 3. Follow up with Dr Salazar in 1 month to begin surveillance. Subjective: The patient chart and medications were reviewed in detail and the patient was seen and exam ined. Olena Rider is a 56 y.o. female with stage IIIA NSCLC, here for trae check. Olena returns today for a trae check, following her fourth and final cycle of carboplat in/pemetrexed. She was seen by our survivorship coordinator last week, and reports a recent follow up with Dr Mon. Previously she was hypokalemic and noted to have worsening renal fu nction, both of which has resolved by today's visit. She is having some mouth soreness, poss ibly related to her pemetrexed. Has some mild intermittent nausea, which is improving, denie s vomiting or other GI dysfunction. No fevers, chills, or night sweats reported. Is having s ome progressive anemia, which correlates to her shortness of breath on exertion. No chest pa in, tightness, or palpitations reported. She continues to have ongoing blurry vision, will f ollow up with opthalmology in the near future. PMH: Past Medical History: Diagnosis Date Anxiety Insomnia Malignant neoplasm of thyroid gland (HCC) PONV (postoperative nausea and vomiting) Social & Family Hx: Social History Social History Marital status: Single Spouse name: N/A Number of children: N/A Years of education: N/A Social History Main Topics Smoking status: Current Every Day Smoker Packs/day: 0.50 Years: 30.00 Types: Cigarettes Smokeless tobacco: Never Used Alcohol use Yes Comment: once a month Drug use: No Sexual activity: Not on file Other Topics Concern Not on file Social History Narrative No narrative on file No family history on file. Review of Systems: Constitutional: Reports energy level is improving. Reports occasional nausea continues. [place] etite is still low, but improving. Denies high fevers, shaking chills, nausea, vomiting, we ight loss, or night sweats. Ear, Nose, Mouth, Throat: Reports mouth is sensitive in general, but no sores. Denies odyno phagia, dysphagia, or tinnitus. Cardiovascular: Reports dyspnea with exertion continues. Denies shortness of breath, chest pain, palpitations or orthopnea. Respiratory: Reports cough continues with occasional clear sputum production. Denies Hemop tysis. Gastrointestinal: Reports intermittent constipation and diarrhea after chemo, this is impro ving. Denies abdominal pain, melena, or bright red blood per rectum. Genitourinary: Denies hematuria or dysuria. Musculoskeletal: Reports arthritic pain continues. Neurologic: Reports blurry vision, states it worsens throughout the day. Denies headache or numbness/tingling of the extremities. Endocrine: Denies peripheral edema or heat/cold intolerance. Hematologic: Denies spontaneous bruising or bleeding. Integumentary: Denies rash, wounds or other skin concerns. Pain: 3/10 arthritic pain in knees and hands. Review of systems as above, otherwise negative Medications: Current Outpatient Prescriptions Medication Sig ALPRAZolam (XANAX) 0.5 mg tablet Take 0.5 mg by mouth 3 times daily as needed for Anxie ty. calcium carbonate (TUMS) 500 mg chewable tablet Take 2 tablets by mouth Daily. folic acid (FOLVITE) 400 MCG tablet Take 1 tablet by mouth Daily. During treatment with PEMEtrexed. (This dose found in most multi-vitamins.) levothyroxine (SYNTHROID, LEVOTHROID) 150 mcg tablet Take 150 mcg by mouth every mornin g (before breakfast). LORazepam (ATIVAN) 1 mg tablet Take 1 tablet by mouth every 6 hours as needed (Nausea/V omiting). ondansetron (ZOFRAN ODT) 4 mg disintegrating tablet Take 4 mg by mouth every 8 hours as needed for Nausea. potassium chloride (KLOR-CON) 10 MEQ ER tablet Take 1 tablet by mouth Daily. traMADol (ULTRAM) 50 mg tablet Take 50 mg by mouth every 6 hours as needed for Pain. UNABLE TO FIND CBD oil 15 mg UNABLE TO FIND Protandim Supplement - given to her by Dr. Mon varenicline (CHANTIX) 0.5 mg tablet Take 1 tablet by mouth 2 times daily. To help stop smoking zolpidem (AMBIEN) 10 mg tablet Take 10 mg by mouth nightly as needed for Sleep. No current facility-administered medications for this encounter. Allergies: Allergies Allergen Reactions Morphine And Related Other (See Comments) "unknown reaction - trouble breathing after hysterectomy" Vitals: Temp: 37.2 C (99 F) BP: 123/76 Pulse: 87 Resp: 18 SpO2: 99 % on Temp :Temp Av.2 C (99 F) Min: 37.2 C (99 F) Max: 37.2 C (99 F) No intake or output data in the 24 hours ending 05/03/17 1154 Wt. Current: Weight: 82.3 kg (181 lb 8 oz) Diagnostic studies: Available data and images were reviewed personally. See reports. Significant results and findings are addressed here or in the Assessment and Plan. Recent Labs Lab 05/03/17 1007 WBC 6.3 HGB 10.9* HCT 31.5* PLT 242 Recent Labs Lab 05/03/17 1000 NA 141 K 3.6 CL 110* CO2 23* BUN 5* CREA 0.84 GLU 139* CALCIUM 9.0 BILITOT 0.4 AST 28 ALT 27 ALKPHOS 62 ALBUMIN 3.9 Imaging: No results found. Electronically signed by: Lionel Benson, PharmD 05/03/2017 11:54 documented in this encounter Plan of Treatment +--------+ + + + + | Date | Type | Specialty | Care Team | Description | +--------+ + + + + | 08/12/ | Appointment | Oncology | Elmer Silva | | 2019 | | | MD Lazaro Dominique | | | | | | [place] | | | | | | [address] | | | | | | | | +--------+ + + + + | 08/12/ | Hospital | Infusion Therapy | Elmer Silva | | 2019 | Encounter | | MD Lazaro Dominique | | | | | | [place] | | | | | | [address] | | | | | | | | +--------+ + + + + | 08/12/ | Appointment | Oncology | Lionel Benson | | 2019 | | | J, PharmD [address] | | | | | | [address] [place] | | | | | | [place] [address] | | | | | | [phone] | | | | | | | | +--------+ + + + + | 08/19/ | Appointment | Oncology | Elmer Silva | | | 2019 | | | E, [address] | | | | | | [place], [place] | | | | | | [address] | | | | | | | | +--------+ + + + + | 08/19/ | Appointment | Infusion Therapy | Elmer Silva | | | 2019 | | | E, [address] | | | | | | [place] | | | | | | [address] | | | | | | | [...] [place] | | | | | | [address] | | | | | | | [...] [place] | | | | | | [address] | | | | | | | | +--------+ + + + + | 09/16/ | Appointment | Infusion Therapy | | | | 2019 | | | | | +--------+ + + + + | 09/23/ | Office | Oncology | Elmer Silva | | | 2019 | Visit | | EMD [address] | | | | | | [place] | | | | | | [address] | | | | | | | [...] [place] | | | | | | [address] | | | | | | | | +--------+ + + + + documented as of this encounter Procedures + +--------+ + + + | Procedure Name | Priori | Date/Time | Associated Diagnosis | Comments | | | ty | | | | + +--------+ + + + | CBC WITH | STAT | 05/03/2017 | Thyroid cancer | Results for this | | DIFFERENTIAL | | 10:07 AM | (HCC) Malignant | procedure are in the | | | | PDT | neoplasm of thyroid | results section. | | | | | gland (HCC) | | | | | | Non-small cell | | | | | | cancer of right lung | | | | | | (HCC) Abnormal | | | | | | stress ECG with | | | | | | treadmill | | + +--------+ + + + | THYROGLOBULIN | Routin | 05/03/2017 | Thyroid cancer | Results for this | | | e | 10:00 AM | (HCC) | procedure are in the | | | | PDT | | results section. | + +--------+ + + + | TSH | Routin | 05/03/2017 | Thyroid cancer | Results for this | | | e | 10:00 AM | (HCC) | procedure are in the | | | | PDT | | results section. | + +--------+ + + + | COMPREHENSIVE | Add-On | 05/03/2017 | Abnormal stress | Results for this | | METABOLIC PANEL | | 10:00 AM | ECG with treadmill | procedure are in the | | | | PDT | | results section. | + +--------+ + + + documented in this encounter Results CBC with Differential (05/03/2017 10:07 AM PDT) + + + + + + | Component | Value | Ref Range | Performed | Pathologist | | | | | At | Signature | + + + + + + | White Blood | 6.3 | 4.0 - 11.0 K/uL | [facility] | | | Cells | | | [facility] | | | | | | [facility] | | | | | [facility] - | | | | | | [facility]ORATORY | | + + + + + + | Red Blood | 3.31 (L) | 3.70 - 5.20 | [facility] | | | Cells | | M/uL | [facility] | | | | | | [facility] | | | | | | [facility] - | | | | | | LABORATORY | | + + + + + + | Hemoglobin | 10.9 (L) | 11.5 - 16.0 | [facility] | | | | | g/dL | [facility] | | | | | | [facility] | | | | | | [facility] - | | | | | | LABORATORY | | + + + + + + | Hematocrit | 31.5 (L) | 34.0 - 47.0 % | [facility] | | | | | | [facility] | | | | | | [facility] | | | | | [facility] - | | | | | | LABORATORY | | + + + + + + | MCV | 95.2 | 83.0 - 101.0 fL | [facility] | | | | | | [facility] | | | | | | [facility] | | | | | | [facility] - | | | | | | LABORATORY | | + + + + + + | MCH | 33.0 | 28.0 - 35.0 pg | [facility] | | | | | | [facility] | | | | | | [facility] | | | | | | [facility] - | | | | | | LABORATORY | | + + + + + + | MCHC | 34.7 | 32.0 - 36.0 | [facility] | | | | | g/dL | [facility] | | | | | | [facility] | | | | | | [facility] - | | | | | | LABORATORY | | + + + + + + | RDW-CV | 17.1 (H) | <15.0 % | [facility] | | | | | | [facility] | | | | [facility] | [facility] | | | | | | [facility] - | | | | | | LAB[facility]ATORY | | + + + + + + | Platelet | 242 | 140 - 440 K/uL | [facility] | | | Count | | | [facility] | | | | | | [facility] | | | | | | [facility] - | | | | | | LAB[facility]ATORY | | + + + + + + | MPV | 7.8 | fL | [facility] | | | | | | [facility] | | | | | | [facility] | | | | | [facility] - | | | | | | LABORATORY | | + + + + + + | % | 45.4 | 45.0 - 82.0 % | [facility] | | | Neutrophils | | | [facility] | | | | | | [facility] | | | | | | [facility] - | | | | | | LABORATORY | | + + + + + + | % | 41.4 | 20.0 - 45.0 % | [facility] | | | Lymphocytes | | | [facility] | | | | | | [facility] | | | | | | [facility] - | | | | | | LABORATORY | | + + + + + + | % Monocytes | 12.4 (H) | 4.0 - 12.0 % | [facility] | | | | | | [facility] | | | | | | [facility] | | | | | | [facility] - | | | | | | LABORATORY | | + + + + + + | % | 0.4 | 0.0 - 5.0 % | [facility] [...] + + + + | Absolute | 2.90 | 1.80 - 8.50 | [facility] | | | Neutrophils | | K/uL | [facility] | | | | | | [facility] | | | | | | [facility] - | | | | | | LABORATORY | | + + + + + + | Absolute | 2.60 | 0.60 - 3.20 | [facility] | [...] | Absolute | 0.00 | 0.00 - 0.40 | [facility] | [...] + | [facility] | [address] | [place] | [phone] | | [facility] | | [address] | | | - LABORATORY | | | | + + + + + Comprehensive Metabolic Panel (05/03/2017 10:00 AM PDT) + + + [...] + + + + | K | 3.6 | 3.5 - 5.1 | [facility] | | | | | mmol/L | [facility] | | | | | | [facility] | | | | | | [facility] - | | | | | | LABORATORY | | + + + + + + | Cl | 110 (H) | 98 - 109 mmol/L | [facility] [...] | | | | | | [facility] | | | | | | [facility] | | | | | | [facility] - | | | | | | LABORATORY | | + + + + + + | Anion Gap | 8 | 3 - 16 mmol/L | [facility] | | | | | | [facility] | | | | | | [facility] | | | | | | [facility] - | | | | | | LABORATORY | | + + + + + + | Glucose | 139 (H) | 70 - 109 mg/dL | [facility] | | | | | | [facility] | | | | | | [facility] | | | | | | [facility] - | | | | | | LABORATORY | | + + + + + + | BUN | 5 (L) | 7 - 18 mg/dL | [facility] | | | | | | [facility] | | | | | | [facility] | | | | | | [facility] - | | | | | | LABORATORY | | + + + + + + | Creatinine | 0.84 | 0.60 - 1.30 | [facility] | | | | | mg/dL | [facility] | | | | | | [facility] | | | | | | C[facility] - | | | | | | LABORATORY | | + + + + + + | eGFR, | >60Comment: GLOMERULAR | >=60 | [facility] | | | non- | FILTRATION | mL/min/1.73m2 | [facility] | | | [place] | RATE,ESTIMATED | | MEDICAL | | | | mL/min/1.66h6Yzvd than | | CENTER - | | [...] 3.9 | 3.2 - 5.0 g/dL | [facility] | | | [facility] | | | | | | [facility] | | | | | | [facility] - | | | | | | LABORATORY | | + + + + + + | Bilirubin | 0.4 | 0.1 - 1.5 mg/dL | [facility] [...] + + + + | AST | 28 | 10 - 42 U/L | [facility] | | | | | | [facility] | | | | | | [facility] | | | | | | [facility] - | | | | | | LABORATORY | | + + + + + + | ALT | 27 | 6 - 45 U/L | [facility] | | | | | | [facility] | | | | | | [facility] | | | | | | [facility] - | | | | | | LABORATORY | | + + + + + + | Alkaline | 62 | 40 - 110 U/L | [facility] [...] + + + + | BUN/Creatin | 6.0 | | [facility] | | | ine [...] + | [facility] | [address] | [place] | [phone] | | [facility] | | [address] | | | - LABORATORY | | [...] + | [facility] | [address] | [place] | [phone] | | [facility] | | [address] | | | - LABORATORY | | | | + + + + + Thyroglobulin,Reflex (05/03/2017 10:00 AM PDT) [...] [facility] | | | in | [facility] | ng/mL | [facility] | | [...] [place] | | | | | | [address] | | | | + + + + + + + + | Specimen | + + | Blood | + + + + + + + | Performing | Address | City/State/Zipcode | Phone Number | | Organization | | | | + + + + + | [facility] | [address] | [place] [address] | [phone] | + + + + + documented in this encounter Visit Diagnoses + + | Diagnosis | + + | Abnormal stress ECG with treadmill - Primary Other nonspecific abnormal | | cardiovascular system function study | + + | Thyroid cancer (HCC) Malignant neoplasm of thyroid gland | + + | Malignant neoplasm of thyroid gland (HCC) Malignant neoplasm of thyroid gland | + + | Non-small cell cancer of right lung (HCC) | + + | Pneumothorax after biopsy Iatrogenic pneumothorax | + + documented in this encounter
--- OUTSIDE RECORDS SUMMARY | ~2020-08-08 | XMS | Encounter Summary ---
Demographics + + + | Address | [address] | | | [place] [address] | + + + | Home Phone [...] Providers + +------+ + | Care Director Drug Name | Role | Phone | + [...] + + | 10/21/ | Hospital | [facility] | Zuleyka [place], | | | 2017 | Encounter | [facility]UC[facility] | MD [address] | | | | | MEDICINE [address] [place], | | | | | [place], | [place] [address] | | | | | [place] [address] | [phone] | | | | | [phone] | | | +--------+ + + + [...] [place] | | | | | | [address] | | | | | | | | +--------+ + + + + | 08/12/ | Hospital | Infusion Therapy | Elmer Silva | | 2019 | Encounter | | MD Lazaro Dominique | | | | | | [place] | | | | | | [address] | | | | | | | | +--------+ + + + + | 08/12/ | Appointment | Oncology | Lionel Benson | | | 2019 | | | J PharmCorky [address] | | | | | | [address] [place] | | | | | | [place] [address] | | | | | | [phone] | | | | | | | | +--------+ + + + + | 08/19/ | Appointment | Oncology | Elmer Silva | | | 2019 | | | E, [address] | | | | | | [place] | | | | | | [address] | | | | | | | | +--------+ + + + + | 08/19/ | Appointment | Infusion Therapy | Elmer Silva | | | 2019 | | | E, [address] | | | | | | [place] | | | | | | [address] | | | | | | | [...] [place] | | | | | | [address] | | | | | | | [...] [place] | | | | | | [address] | | | | | | | [...] [place] | | | | | | [address] | | | | | | | [...] [place] | | | | | | [address] | | | | | | | [...] of I-131 radiates tracer with | | [id number] imaging of the thyroid for surveillance imaging.FINDINGS:Minimal [...]
--- OUTSIDE RECORDS SUMMARY | ~2020-08-08 | XMS | Encounter Summary ---
Demographics + + + | Address | [address] | | | [place] [address] | + + + | Home Phone | | + + + | Preferred Language | Unknown | + + + | Marital Status | Single | + + + | Tenriism Affiliation | Unknown | + + + [...] Team Providers + +------+ + | Care Crusher Tender Name | Role | Phone | [...] | | Non-small | Salazar, | [address] | | | | | cell cancer | Milton | [place], | | | | | of right | MD [place] | [place] [address] | | | | | lung (HCC) | [address] | Phone: | | | | | Procedures | [place] | [phone] | | | | | CT Chest | [place], [place] | Fax: | | | | | Abdomen | [address] | [phone] | | | | | Pelvis w | Phone: | | | | | | Contrast | [phone] | | | | | | | Fax: | | | | | | | [phone] | | +--------+--------+ + + + + [...] | | | lung (HCC) | [address] | [address] [place] | | | | | Procedures | [place], | [place], [place] | | | | | [address] | [place] | [address] Phone: | | | | | | [address] | [phone] | | | | | | Phone: | Fax: | | | | | | [phone] | [phone] | | | | | | Fax: | | | | | | | [phone] | | +--------+--------+ + + + + Encounter Details +--------+ + + + + | Date | Type | Department | Care Team | Description | +--------+ + + + + | 08/16/ | Hospital | [facility] | Milton Salazar | Non-small cell | | 2018 | Encounter | [facility] | MD [place] [address] | cancer of right lung | | | | ONCOLOGY CLINIC [address] | [address] [place] | (HCC) (Primary Dx); | | | | [address] [place] | [place] [address] | Malignant neoplasm | | | | [place] [address] | [phone] | of thyroid gland | | | | [phone] | | (HCC) | +--------+ + + [...] erent from the original. Hem-Onc Progress Note [facility] Pt. Name/Age/: Olena Rider 57 y.o. 1960 Med. Record Number: [id number] Date of admission: 08/16/2018 Assessment and plan: [...] momentary lapses at the time of the [facility] et round up. She is not having [...] ave an appointment with Dr. Reaves in [place]. Cardiovascular: State s shortness of breath, dyspnea [...] Electronically signed by: Milton Salazar, 08/16/2018 15:24 [facility] TIME SPENT 25 MIN. > 50% AT BEDSIDE, WITH FAMILY/PATIENT IN CARE AND CONCESSION STAND ATTENDANT ON UNIT AND CO ORDINATION OF CARE Portions of this chart may have been created with Contactual voice recognition software. Occasi onal wrong-word or [...] ave an appointment with Dr. Reaves in [place]. Cardiovascular: State s shortness of breath, dyspnea [...] [place] | | | | | | [address] | | | | | | | | +--------+ + + + + | 08/12/ | Hospital | Infusion Therapy | Elmer Silva | | | 2019 | Encounter | | MD Lazaro Dominique | | | | | | [place] | | | | | | [address] | | | | | | | | +--------+ + + + + | 08/12/ | Appointment | Oncology | Lionel Benson | | 2019 | | | Ze Un[address] | | | | | | [address] [place] | | | | | | [place] [address] | | | | | | [phone] | | | | | | | | +--------+ + + + + | 08/19/ | Appointment | Oncology | Elmer Silva | | | 2019 | | | E, [address] | | | | | | [place], [place] | | | | | | [address] | | | | | | | | +--------+ + + + + | 08/19/ | Appointment | Infusion Therapy | Elmer Silva | | | 2019 | | | E, [address] | | | | | | ST [place] | | | | | | [address] | | | | | | | [...] | 2019 | Visit | | MD Lazaor Dominique | | | | | | [place] | | | | | | [address] | | | | | | | [...] [place] | | | | | | [address] | | | | | | | [...] [place] | | | | | | [address] | | | | | | | [...] [place] | | | | | | [address] | | | | | | | [...] | | | | | mg/dL | [facility] | | | | | | MEDICAL | | | | | | CENTER - | | | | | | LABORATORY | | + + + + + + | eGFR, | >60Comment: GLOMERULAR | >=60 | [facility] | | | non- | FILTRATION | mL/min/1.73m2 | [facility] | | | Martiniquais | RATE,ESTIMATED | | MEDICAL | | | | mL/min/1.20k3Iefe than | | CENTER - | | [...] + | [facility] | [address] | [place] | [phone] | | [facility] | | [address] | | | - LABORATORY | | [...] | | | | | WBCs | [facility] | | | | | | MEDICAL | | | | | | CENTER - | | | | | | LABORATORY | | + + + + + + | Absolute | 0.00 | 0.00 - 0.01 | [facility] | | | nRBC | | K/uL | [facility] | | | | | | MEDICAL [...] [address] | [place] | [phone] | | [facility] | | [address] | | | - LABORATORY | | [...] seen within bilateral femoral necks within the [id number] | | body.IMPRESSION -No evidence for a [...] | non- | FILTRATION | mL/min/1.73m2 | [facility] | | | Martiniquais | RATE,ESTIMATED | | MEDICAL | | | | mL/min/1.99d0Dtwp than | | CENTER - | | [...] | | | | | mg/dL | [facility] | | | | | | [...] [address] | [place] | [phone] | | [facility] | | [address] | | | - LABORATORY | | [...] [address] | [place] | [phone] | | [facility] | | [address] | | | - LABORATORY | | [...]
--- OUTSIDE RECORDS SUMMARY | ~2020-08-08 | XMS | Encounter Summary ---
Demographics + + + | Address | [address] | | | [place] [address] | + + + | Home Phone [...] Team Providers + +------+ + | Care Forge Operator Helper Name | Role | Phone | [...] + + | 07/22/ | Telephone | [facility] | Susie Montemayor | Patient Concerns | | 2020 | | MED CTR RADIATION | MD Jared [address] | | | | | ONCOLOGY CLINIC [address] | [place], [place] | | | | | [facility] | [address] | | | | | [place] [address] | | | | | | [phone] | | | +--------+ + + + [...] Telephone Encounter - Abby Rodriguez RN - 07/23/2020 9:32 AM PDTMichelle here in offi ce early (prior to xrt) to meet with Dr. Montemayor to discuss her questions. No further action s required. elepho ne Encounter - Azucena Ritchie RN - 07/22/2020 2:23 PM PDTPatient stops by my desk and ask ed if she could meet with Dr. Montemayor as she had a few questions about treatment, side effec ts and some additional medication that she had mentioned to her. I discussed side effects wi th her briefly today. I let her know that Dr. Montemayor would have time to meet with her benjamin or to her treatment if she could come about 9:45 tomorrow. documented in this encounter Plan of Treatment +--------+ + + + + | Date | Type | Specialty | Care Team | Description | +--------+ + + + + | 08/12/ | Appointment | Oncology | Elmer Silva | | | 2019 | | | MD Lazaro Dominique [address] | | | | | | [place] | | | | | | [address] | | | | | | | | +--------+ + + + + | 08/12/ | Hospital | Infusion Therapy | Elmer Silva | | | 2019 | Encounter | | MD Lazaro Dominique [address] | | | | | | [place] | | | | | | [address] | | | | | | | | +--------+ + + + + | 08/12/ | Appointment | Oncology | Lionel Benson | | | 2019 | | | Ze Un[address] | | | | | | [address] [place] | | | | | | [place] [address] | | | | | | [phone] | | | | | | | | +--------+ + + + + | 08/19/ | Appointment | Oncology | Elmer Silva | | | 2019 | | | E, [address] | | | | | | [place], [place] | | | | | | [address] | | | | | | | | +--------+ + + + + | 08/19/ | Appointment | Infusion Therapy | Elmer Silva | | | 2019 | | | E, [address] | | | | | | ST [place], [place] | | | | | | [address] | | | | | | | [...] [place] | | | | | | [address] | | | | | | | [...] [place] | | | | | | [address] | | | | | | | [...] [place] | | | | | | [address] | | | | | | | [...] [place] | | | | | | [address] | | | | | | | | +--------+ + + + + documented as of this encounter Visit Diagnoses Not on filedocumented in this encounter"
--- OUTSIDE RECORDS SUMMARY | ~2020-08-08 | XMS | Encounter Summary ---
Demographics + + + | Address | [address] | | | [place] [address] | + + + | Home Phone [...] Author + + + | Author | [facility] | | | and [place] | + + + | Organization | [facility] | | [...] Providers + +------+ + | Care Public School Teacher Name | Role | Phone | + [...] | | ONCOLOGY CLINIC [address] | [place], [place] | | | | | [address] [place] | [address] | | | | | [place] [address] | | | | | | [phone] | | | +--------+ + + + [...] Pain Quality: Constant Current pain regimen: will chicken picker dexamethasone today Chemotherapy: No systemic therapy [...] MD Radiation Oncologist Department of Radiation Oncology [facility] documented in this encounter Plan of Treatment [...] [place] | | | | | | [address] | | | | | | | | +--------+ + + + + | 08/12/ | Hospital | Infusion Therapy | Elmer Silva | | | 2019 | Encounter | | E, [address] | | | | | | [place] | | | | | | [address] | | | | | | | | +--------+ + + + + | 08/12/ | Appointment | Oncology | Lionel Benson | | | 2019 | | | [address] | | | | | | [address] [place] | | | | | | [place] [address] | | | | | | [phone] | | | | | | | | +--------+ + + + + | 08/19/ | Appointment | Oncology | Elmer Silva | | | 2019 | | | E, [address] | | | | | | [place] | | | | | | [address] | | | | | | | | +--------+ + + + + | 08/19/ | Appointment | Infusion Therapy | Elmer Silva | | | 2019 | | | E, [address] | | | | | | [place] | | | | | | [address] | | | | | | | [...] [place] | | | | | | [address] | | | | | | | | +--------+ + + + + | 09/09/ | Appointment | Infusion Therapy | | | | 2019 | | | | | +--------+ + + + + | 09/16/ | Office | Oncology | Elmer Silva | | | 2019 | Visit | | Trip, MD [address] | | | | | | [place] | | | | | | [address] | | | | | | | [...] [place] | | | | | | [address] | | | | | | | [...] | | | | [place] | | | | | | [address] | | | | | | | [...]
--- OUTSIDE RECORDS SUMMARY | ~2020-08-08 | XMS | Encounter Summary ---
Demographics + + + | Address | [address] | | | [place] [address] | + + + | Home Phone [...] Team Providers + +------+ + | Care Water Quality Control Engineer Name | Role | Phone | + +------+ + | Zuleyka Martínez | PCP | | + +------+ + Encounter Details +--------+ + + + + | Date | Type | Department | Care Team | Description | +--------+ + + + + | 02/18/ | Orders Only | [facility] | Lemuel Da Silva DO | Brain mass (Primary | | 2020 | | NEUROSURGERY [address] | Dx); Malignant | | | | [address] | [address] | neoplasm of lower | | | | [place], [place] | [place] [address] | lobe of right lung | | | | [address] | [phone] | (HCC) | | | | [phone] | | | +--------+ + + + [...] [place] | | | | | | [address] | | | | | | | | +--------+ + + + + | 08/12/ | Appointment | Oncology | Lionel Benson | | | 2019 | | | JZe [address] | | | | | | [address] [place] | | | | | | [place] [address] | | | | | | [phone] | | | | | | | | +--------+ + + + + | 08/19/ | Appointment | Oncology | Elmer Silva | | | 2019 | | | MD Trip [address] | | | | | | ST [place] | | | | | | [address] | | | | | | | | +--------+ + + + + | 08/19/ | Appointment | Infusion Therapy | Elmer Silva | | | 2019 | | | E, [address] | | | | | | [place], [place] | | | | | | [address] | | | | | | | [...] [place] | | | | | | [address] | | | | | | | [...] [place] | | | | | | [address] | | | | | | | [...] [place] | | | | | | [address] | | | | | | | [...] [place] | | | | | | [address] | | | | | | | | +--------+ + + + + + +------+--------+ + + | Name | Type | Priori | Associated Diagnoses | Order Schedule | | | | ty | | | + +------+--------+ + + | Protime INR | Lab | Routin | Brain mass | 1 Occurrences | | | | e | | starting 02/19/2020 | | | | | | until 02/18/2021 | + +------+--------+ + + | PTT | Lab | Routin | Brain mass | 1 Occurrences | | | | e | | starting 02/19/2020 | | | | | | until 02/18/2021 | + +------+--------+ + + documented as of this encounter Visit Diagnoses + + | Diagnosis | + + | Brain mass - Primary Unspecified condition of brain | + + | Malignant neoplasm of lower lobe of right lung (HCC) | + + documented in this encounter"
--- OUTSIDE RECORDS SUMMARY | ~2020-08-08 | XMS | Encounter Summary ---
Demographics + + + | Address | [address] | | | [place] [address] | + + + | Home Phone [...] Team Providers + +------+ + | Care Termite Renewal Inspector Name | Role | Phone | + +------+ + | Zuleyka Martínez | PCP | | + +------+ + Reason for Visit +--------+--------+ + | Reason | Onset | Comments | | | Date | | +--------+--------+ + | Other | 04/22/ | | | | 2017 | | +--------+--------+ + Encounter Details +--------+ + + + + | Date | Type | Department | Care Team | Description | +--------+ + + + + | 04/22/ | Telephone | [facility] | Serenity Dunn, | Other | | 2016 | | MED CTR MEDICAL | RN | | | | | ONCOLOGY CLINIC [address] | | | | | | [address] | | | | | | [place] [address] | | | | | | [phone] | | | +--------+ + + + [...] Telephone Encounter - Cassi Pulido RN - 04/23/2017 9:57 AM PDTRosendobang Rider is here tod ay to see Dr. Vargas in follow up as well as Dr. Salazar. I gave Olena the Survivor ship Care Plan for thyroid and Lung Cancer on behalf of Serenity Dunn RN. Serenity will fo llow up with patient next week. 10: 00 AM PDTTelephone Encounter - Serenity Dunn RN - 04/22/2017 3:18 PM PDTI called Cori davila because yesterday on the phone, we had come up with a plan for Zuleyka Herbert RN to give Olena her survivorship care plan but this nurse is now out ill, so I have now arran mason for Cassi Pulido RN to give Olena the care plan as she will be seeing Dr. Vargas first for a follow up and Cassi is Dr. Vargas's nurse. Olena did not answer so I le ft this information in a voicemail with my number to call back if she had any questions. Zahra ctronically signed by Serenity Dunn RN at 04/22/2017 3:30 PM PDTdocumented in this enco unter Plan of Treatment +--------+ + + + + | Date | Type | Specialty | Care Team | Description | +--------+ + + + + | 08/12/ | Appointment | Oncology | Elmer Silva | | | 2019 | | | EMD [address] | | | | | | [place] | | | | | | [address] | | | | | | | | +--------+ + + + + | 08/12/ | Hospital | Infusion Therapy | Elmer Silva | | | 2019 | Encounter | | E, [address] | | | | | | [place] | | | | | | [address] | | | | | | | | +--------+ + + + + | 08/12/ | Appointment | Oncology | Lionel Benson | | | 2019 | | | [address] | | | | | | [address] [facility] | | | | | | [place] [address] | | | | | | [phone] | | | | | | | | +--------+ + + + + | 08/19/ | Appointment | Oncology | Elmer Silva | | | 2019 | | | E, [address] | | | | | | ST [place], [place] | | | | | | [address] | | | | | | | | +--------+ + + + + | 08/19/ | Appointment | Infusion Therapy | Elmer Silva | | | 2019 | | | E, [address] | | | | | | ST [place], [place] | | | | | | [address] | | | | | | | [...] [place] | | | | | | [address] | | | | | | | [...] [place] | | | | | | [address] | | | | | | | [...] [place] | | | | | | [address] | | | | | | | [...] [place] | | | | | | [address] | | | | | | | | +--------+ + + + + documented as of this encounter Visit Diagnoses Not on filedocumented in this encounter"
--- OUTSIDE RECORDS SUMMARY | ~2020-08-08 | XMS | Encounter Summary ---
Demographics + + + | Address | [address] | | | [place] [address] | + + + | Home Phone [...] Team Providers + +------+ + | Care Boat Patcher Plastic Name | Role | Phone | + +------+ + | Zuleyka Martínez | PCP | | + +------+ + Encounter Details +--------+ + + + + | Date | Type | Department | Care Team | Description | +--------+ + + + + | 06/17/ | Hospital | [facility] | Conversion | Other nonspecific | | 2016 | Encounter | [facility] | Transaction, | abnormal finding of | | | | MEDICINE [address] | Provider Unknown | lung field | | | | [address] | [phone] | | | | | [place], [place] | | | | | | [address] | | | | | | [phone] | | | +--------+ + + + [...] [place] | | | | | | [address] | | | | | | | | +--------+ + + + + | 08/12/ | Hospital | Infusion Therapy | Elmer Silva | | | 2019 | Encounter | | MD Lazaro Dominique | | | | | | [place] | | | | | | [address] | | | | | | | | +--------+ + + + + | 08/12/ | Appointment | Oncology | Lionel Benson | | | 2019 | | | [address] | | | | | | [address] [place] | | | | | | [place] [address] | | | | | | [phone] | | | | | | | | +--------+ + + + + | 08/19/ | Appointment | Oncology | Elmer Silva | | | 2019 | | | MD Lazaro Dominique [address] | | | | | | [place] | | | | | | [address] | | | | | | | | +--------+ + + + + | 08/19/ | Appointment | Infusion Therapy | Elmer Silva | | | 2019 | | | E, [address] | | | | | | [place] | | | | | | [address] | | | | | | | [...] [place] | | | | | | [address] | | | | | | | [...] [place] | | | | | | [address] | | | | | | | [...] [place] | | | | | | [address] | | | | | | | [...] [place] | | | | | | [address] | | | | | | | [...] At | + + + | OLENA Maki [facility] PET CT TUMOR LOCALIZATION INITIAL - TORSO [...] Conversion - 06/15/2019 8:45 PM PDT [facility] TUMOR | | LOCALIZATION INITIAL - [...] | | | Fingerstick | performed at [facility];[address] | | LAB | | | | [address] [place] | | | | | | [address] | | | | + + + [...]
--- OUTSIDE RECORDS SUMMARY | ~2020-08-08 | XMS | Encounter Summary ---
Demographics + + + | Address | [address] | | | [place] [address] | + + + | Home Phone | | + + + | Preferred Language | Unknown | + + + | Marital Status | Single | + + + | Sikhism Affiliation | Unknown | + + + | Race | White | + + + | Ethnic Group | Not or | + + + Author + + + | Author | [facility] | | | and [place] | + + + | Organization | [facility] | | | [...] Team Providers + +------+ + | Care Bullion Weigher Name | Role | Phone | + +------+ + PCP | Unavailable | + +------+ + Encounter Details +--------+ + + + + | Date | Type | Department | Care Team | Description | +--------+ + + + + | 02/20/ | Hospital | [facility] | | | | 1997 | Encounter | MED CTR EMERGENCY | | | | | | CENTER [address] | | | | | | [place] | | | | | | [address] | | | | | | [phone] | | | +--------+ + + + [...] [place] | | | | | | [address] | | | | | | | | +--------+ + + + + | 08/12/ | Hospital | Infusion Therapy | Elmer Silva | | | 2019 | Encounter | | MD Lazaro Dominique | | | | | | [place] | | | | | | [address] | | | | | | | | +--------+ + + + + | 08/12/ | Appointment | Oncology | Lionel Benson | | 2019 | | | [address] | | | | | | [address] | | | | | | [place] [address] | | | | | | [phone] | | | | | | | | +--------+ + + + + | 08/19/ | Appointment | Oncology | Elmer Silva | | | 2019 | | | E, [address] | | | | | | [place] | | | | | | [address] | | | | | | | | +--------+ + + + + | 08/19/ | Appointment | Infusion Therapy | Elmer Silva | | | 2019 | | | E, MD [address] | | | | | | [place] | | | | | | [address] | | | | | | | [...] [place] | | | | | | [address] | | | | | | | [...] [place] | | | | | | [address] | | | | | | | [...] [place] | | | | | | [address] | | | | | | | [...] [place] | | | | | | [address] | | | | | | | | +--------+ + + + + documented as of this encounter Visit Diagnoses Not on filedocumented in this encounter"
--- OUTSIDE RECORDS SUMMARY | ~2020-08-08 | XMS | Encounter Summary ---
Demographics + + + | Address | [address] | | | [place] [address] | + + + | Home Phone [...] Author + + + | Author | [facility] | | | and [place] | + + + | Organization | [facility] [...] Team Providers + +------+ + | Care National Dedicated Truck Driver Name | Role | Phone | + [...] | | | [address] [place] | [place] [address] | | | | | [place] [address] | | | | | | [phone] | | | +--------+ + + + [...] [place] | | | | | | [address] | | | | | | | | +--------+ + + + + | 08/12/ | Hospital | Infusion Therapy | Elmer Silva | | | 2019 | Encounter | | MD Lazaro Dominique [address] | | | | | | [place] | | | | | | [address] | | | | | | | | +--------+ + + + + | 08/12/ | Appointment | Oncology | Lionel Benson | | 2019 | | | [address] | | | | | | [address] | | | | | | [place] [address] | | | | | | [phone] | | | | | | | | +--------+ + + + + | 08/19/ | Appointment | Oncology | Elmer Silva | | | 2019 | | | E, MD [address] | | | | | | [place] | | | | | | [address] | | | | | | | | +--------+ + + + + | 08/19/ | Appointment | Infusion Therapy | Elmer Silva | | | 2019 | | | E, MD [address] | | | | | | [place] | | | | | | [address] | | | | | | | [...] [place] | | | | | | [address] | | | | | | | [...] [place] | | | | | | [address] | | | | | | | [...] [place] | | | | | | [address] | | | | | | | | +--------+ + + + + | 09/23/ | Appointment | Infusion Therapy | | | | 2019 | | | | | +--------+ + + + + | 11/22/ | Appointment | Radiation Oncology | Susie Montemayor | | | 2020 | | | MD Lazaro [address] | | | | | | [place], [place] | | | | | | [address] | | | | | | | [...]
--- OUTSIDE RECORDS SUMMARY | ~2020-08-08 | XMS | Encounter Summary ---
Demographics + + + | Address | [address] | | | [place] [address] | + + + | Home Phone | | + + + | Preferred Language | Unknown | + + + | Marital Status | Single | + + + | Yazdanism Affiliation | Unknown | + + + [...] Providers + +------+ + | Care General Administrator Name | Role | Phone | + [...] | | | | | [address] | [place] | | | | | [place] | [address] | | | | | [address] | [phone] | | | | | [phone] | | | +--------+---------+ + + + [...] might be different fro m the original. [place] HOSPITALIST DISCHARGE SUMMARY Pt. Name/Age/: Smitha [...] signed by: Tien Angel MD, 11/06/2016 9:36 [facility] Reference. This is NOT part of the [...] this chart may have been created with Jamba! voice recognition software. Occasi onal wrong-word or [...] sent through Care Everywhere.PNEUMOTHORAX (C OLLAPSED LUNG) (GREENLANDIC)documented in this encounter Medications at Time of [...] might be diff erent from the original. [place], [place] General Surgery Team Hospital Day: 3 [...] Intake/Output Summary (Last 24 hours) at 11/06/16 0887 Last data filed at 11/06/16 0300 Gross [...] by: Del Dsouza MD, 11/06/2016 8:58 [facility] Kerwin Jasso MD - 11/06/2016 7:51 AM PSTFormatting of this note might be different from the fabian renetta [place] HOSPITALIST PROGRESS NOTE Patient: Smitha Rider : 1960: Age: 56 y.o. MedRec: [id number] PCP: Zuleyka Martínez Admission date: 11/04/2016 Hospital [...] for input(s): IRON, TIBC, PCTSAT, FERRITIN, TSH, [id number], FOLATE in the last 168 hours. Inflammatory [...] ABG No results for input(s): PHART, PO2ART, DMZ2OWS, SAJ9CHV, BEART, K4BZLYHF in the last 168 h ours. No results for input(s): SPECSOURCE, PHPOCB, PCO2, PO2, HCO3, TCO2, BEART, ATVY3OZC in the last 168 hours. Drug of [...] Procedure Component Value Units Date/Time Culture, MRSA [[id number]] Collected: 11/04/16 1544 Order Status: Completed Lab [...] of this study were reported by the [facility] radiologist on November 05, 2016 at [...] meycritical meysign) Tien Angel MD 11/06/2016 7:51 [facility] Reference. This is NOT part of [...] this chart may have been created with Jamba! voice recognition software. Occasi onal wrong-word or sound-alike substitutions may have occurred due to the inherent cervantes itations of voice recognition software. Please read the chart carefully and recognize, using context, where these substitutions have occurred Del Montoya MD - 11/05/2016 6:31 PM PSTFormatting of this note might be different from the hector jackson [place], [place] General Surgery Team Hospital Day: 2 [...] by: Del Dsouza MD, 11/05/2016 18:32 [facility] Kerwin Jasso MD - 11/05/2016 6:53 AM PSTFormatting of this note might be different from the [facility] [place] HOSPITALIST PROGRESS NOTE Patient: Smitha Rider : 1960: Age: 56 y.o. MedRec: [id number] PCP: Zuleyka Martínez Admission date: 11/04/2016 Hospital [...] for input(s): IRON, TIBC, PCTSAT, FERRITIN, TSH, [id number], FOLATE in the last 168 hours. Inflammatory [...] ABG No results for input(s): PHART, PO2ART, DYF3CQH, ZXS5NDK, BEART, Q9DMGDDU in the last 168 h ours. No results for input(s): SPECSOURCE, PHPOCB, PCO2, PO2, HCO3, TCO2, BEART, GKVU4ROK in the last 168 hours. Drug of [...] Procedure Component Value Units Date/Time Culture, MRSA [[id number]] Collected: 11/04/16 1544 Order Status: Sent Lab Status: In process Updated: 11/04/16 1556 Specimen Information: Respiratory from Nares Radiology results [...] meycritical meysign) Tien Angel MD 11/05/2016 6:53 [facility] Reference. This is NOT part of [...] this chart may have been created with Jamba! voice recognition software. Occasi onal wrong-word or sound-alike substitutions may have occurred due to the inherent cervantes itations of voice recognition software. Please read the chart carefully and recognize, using context, where these substitutions have occurred documented in this en counter H&P Notes Tien Angel MD - 11/04/2016 2:34 PM PSTFormatting of this note might be different fro m the original. [place] HOSPITALIST HISTORY & PHYSICAL Patient: Smitha Rider : 1960: Age: 56 y.o. MedRec: [id number] PCP: Zuleyka Martínez Admission date: 11/04/2016 Hospital day #: Physician author: Tien Angel MD Today: 11/04/2016 CHIEF COMPLAINT: Chest pain due to pneumothorax caused by right lung nodule biopsy Dr Godfrey HISTORY OF PRESENT ILLNESS: This is a 56 y.o. female with a history of thyoid cancer Was in [facility] last June with CP with CT showing lung nodules had a PET scan in June at [facility] and ultimately had thyroid surgery in [place] and radioactive iodine 131 and then had [...] Here with daughter Jennifer whom is [facility] Tanya is [employer] INSTALL[employer] PAST MEDICAL and SURGICAL HISTORY: Past Medical [...] for input(s): IRON, TIBC, PCTSAT, FERRITIN, TSH, [id number], FOLATE in the last 168 hours. Inflammatory [...] ABG No results for input(s): PHART, PO2ART, SVI9NZP, VEA7IBK, BEART, K5JBIXKW in the last 168 h ours. No results for input(s): SPECSOURCE, PHPOCB, PCO2, PO2, HCO3, TCO2, BEART, HRTR9TKC in the last 168 hours. Drug of [...] performed through the introducer with an 18-gauge [employer] biopsy gun, producing smal l white tissue [...] (dot meyaddendum tdnorefesh nownorefresh) (dot meytime meycritical) [facility] Documentation I expect this patient will be hospitalized for less than 2-midnights and expect the post-ho spital plan to be discharge to home or to an adult foster home. Electronically signed by: Tien Angel MD 11/04/2016 14:34 [facility] (meyaddendum tdnorefesh nownorefresh) Portions of this chart may have been created with Jamba! voice recognition software. Occasi onal wrong-word or [...] signed by: Hugo Godfrey MD, 11/04/2016 10:02 [facility] Hugo Godfrey MD at 2016 10:19 AM Susie Guerrero MD - 10/27/2016 12:00 AM [facility] Follow-up Note PATIENT: Smitha Rider MR#: [id number] :1960 DOS:10/27/2016 ICD/Diagnosis: C73 - Malignant neoplasm [...] was reviewed with Radio logy here at [facility] and it was felt that CT guided [...] t o Dr. Coles, endocrinology to establish terminal manager follow-up. Thank you for allowing me to participate in the care of Smitha Rider. If you should have any questions regarding this evaluation, please do not hesitate to contact me. Susie Vargas M.D. Radiation Oncologist Department of Radiation Oncology [facility] Electronically signed by Susie Walker M.D CC: Doris Stanford M.D. This note was transcribed using Jamba! speech recognition software. As a result, there ma y be unintended for medical and/or spelling errors. Every attempt is made to correct dicta tion. If there are any questions or errors please contact our office. CSN: [id number] signed by Susie Walker MD at 11/02/2016 11:55 AM PSTd ocumented in this encounter Consult Notes Del Dsouza MD - 11/04/2016 6:01 PM [place] [id number] CONSULTATION DEL DSOUZA MD Patient: SMITHA RIDER Admitting: HUGO GODFREY MR #: [id number] LOC: PT TYPE: Adm Date: 11/04/2016 : [...] underwent total thyroidectomy for thyroid malignancy. Sh bernard is unsure of the stage, but states [...] at this time. She is in the [place], [place] area and is here with a [...] Transcribed on 11/04/2016 18:23:36 by jazlyn job# [id number] Confirmation #: [id number] cc: ZULEYKA MARTÍNEZ CRNPElectronically signed by Del [...] plans. She lives in a home in [place] on the main floor. There are two steps to enter the house. Smitha lives on the main level, Brigitte lives in the upstairs and Jennifer lives in the sement. Prior to hospitalization Smitha was independent in her ADL's. 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 Smitha does not own or use any DME. No DME company preference. She declines the need for for SNF and HH. Her PCP is Zuleyka Martínez and she uses [facility] pharmacy or [facility] in [place] . Her daughters will be her ride home when she is stable for discharge. No discharge needs noted. Electronically signed by: Avril Brooks, BILL 11/05/2016 13:02 lan of Murphy Jordan Chaplain - 11/05/2016 10:25 AM PST Spiritual Care Smitha Rider is a 56 y.o. female who is admitted for Pneumothorax after biopsy [J95.8 11]. Spiritual Evaluation: Not especially zoroastrianism, but did appreciate cytopathology technologist visit. Spiritual Intervention: Active Listening, pastoral presence. Spiritual Outcomes: Appreciates Rotary Drill Rig Operator Visit Spiritual Goals / Follow-up: Will see the patient as requested. If there are any other spiritual care issues that arise, please contact cytopathology technologist. lan of Care - Ursula Marc RN [...] Dsouza MD - 11/04/2016 6:05 PM PST [address] [address] OPERATIVE REPORT DEL DSOUZA MD Patient: SMITHA RIDER Admitting: HUGO GODFREY MR #: [id number] LOC: PT TYPE: Adm Date: 11/04/2016 : [...] of air was noted. The smallest available, 24-Vietnamese ch est tube was placed and attached [...] 11/04/2016 18:05:06 Transcribed on 11/04/2016 18:58:44 by [facility] job# [id number] Confirmation #: [id number] cc: ZULEYKA MARTÍNEZ CRNPElectronically signed by Del [...] [place] | | | | | | [address] | | | | | | | | +--------+ + + + + | 08/12/ | Hospital | Infusion Therapy | Elmer Sliva | | | 2019 | Encounter | | MD [address] | | | | | | [place] | | | | | | [address] | | | | | | | | +--------+ + + + + | 08/12/ | Appointment | Oncology | Lionel Benson | | | 2019 | | | [address] | | | | | | [address] | | | | | | [place] [address] | | | | | | [phone] | | | | | | | | +--------+ + + + + | 08/19/ | Appointment | Oncology | Elmer Silva | | | 2019 | | | E, [address] | | | | | | [place] | | | | | | [address] | | | | | | | | +--------+ + + + + | 08/19/ | Appointment | Infusion Therapy | Elmer Silva | | | 2019 | | | E, [address] | | | | | | [place] | | | | | | [address] | | | | | | | [...] [place] | | | | | | [address] | | | | | | | [...] [place] | | | | | | [address] | | | | | | | [...] [place] | | | | | | [address] | | | | | | | [...] [place] | | | | | | [address] | | | | | | | [...] ST. | [address] | [place] | [phone] | | [facility] | | [address] | | | - LABORATORY | | [...] 1.8 | 1.8 - 2.5 mg/dL | [facility] | | | | | | JOCE [...] [address] | [place] | [phone] | | [facility] | | [address] | | | - LABORATORY | | [...] 12 | 7 - 18 mg/dL | [facility] | | | | | | [facility] | | | | | | MEDICAL | | | | | | CENTER - | | | | | | LABORATORY | | + + + + + + | Creatinine | 0.92 | 0.60 - 1.30 | [facility] | | | | | mg/dL | [facility] | | | | | | MEDICAL | | | | | | CENTER - | | | | | | LABORATORY | | + + + + + + | eGFR, | 64Comment: GLOMERULAR | mL/min/1.73m2 | [facility] | | | non- | FILTRATION | | [facility] | | | [place]e | RATE,ESTIMATED | | MEDICAL | | | | mL/min/1.99o4Rmfa than | | CENTER - | | [...] [address] | [place] | [phone] | | [facility] | | [address] | | | - LABORATORY | | [...] of this study were reported by the [facility] radiologist on November | | | [...] of this study were reported by the [facility] radiologist on | | November 05, [...] Note | + + | Andrea White Results In - 11/05/2016 4:16 PM PST [...] + + | [facility] | [address] | [place] | [phone] | | [facility] | | [address] | | | - LABORATORY | | [...] eGFR, | 68Comment: GLOMERULAR | mL/min/1.73m2 | [facility] | | | non- | FILTRATION | | [facility] | | | [place] | RATE,ESTIMATED | | MEDICAL | | | | mL/min/1.93z8Nvkz than | | CENTER - | | [...] | | ine Ratio | | | Maximiliano [facility]E | | | | [...] + | [facility] [facility] | [address] | [place], [place] | [phone] | | [facility] | | [address] | | | - LABORATORY | | [...] Note | + + | Andrea White Results In - 11/05/2016 7:46 AM PST [...] | | chromogenic agar method | | [facility] | | | [...] [address] | [place] | [phone] | | [facility] | | [address] | | | - LABORATORY | | [...] + + | Performing | Address | City/State[facility] | Phone Number | | Organization | [...] rajinder was made to | | accommodate wex52-mpfck introducer needle, which was advanced to the margin of the | | nodulewithout difficulty utilizing CT guidance, and an intercostal PA approach. | | Fivecore biopsies of the nodule were performed through the introducer with [id number]-fdbea | | Biopince biopsy gun, producing small [...] [address] | [place] | [phone] | | [facility] | | [address] | | | - LABORATORY | | [...] [address] | [place] | [phone] | | [facility] | | [address] | | | - LABORATORY | | [...] [address] | [place] | [phone] | | [facility] | | [address] | | | - LABORATORY | | [...] 11/05/16. As part | | | of [facility]' Quality Improvement Program, this case was | | | reviewed by another member of our pathology staff. | | | CLR:[facility]:C1NR GROSS DESCRIPTION: The specimen is received in | | | formalin in a container labeled "Smitha Rider, Alfonso lung". Received are | | | four dkh-aqqjq-azp needle core fragments ranging in length from | | | 0.3-0.6 cm by average diameter of 0.15 cm, entirely submitted in | | | cassette (A1). CLR:[facility] MICROSCOPIC EXAMINATION: Histologic | | | sections [...] | and its performance characteristics determined by [facility]. | | | It has not been cleared or approved by the U.S. Food and Drug | | | Administration. The FDA has determined that such clearance or | | | approval is not necessary. This test is used for clinical purposes. | | | It should not be regarded as investigational or for research. | | | [facility] is certified under the Clinical Laboratory | | | Improvement Amendments of 1988 (CLIA) as qualified to perform high | | | complexity clinical laboratory testing PERFORMING LABORATORY: | | | Tissue processing and slide preparation were performed by [facility] | | | [facility], [address], [place] [address] | | | (Metal Alloy Scientist: Eliezer Helm M.D.; CLIA#: [id number]). | | | Professional interpretation was performed by [facility], [address], [place] [address] (Metal Alloy Scientist: Eliezer | | | Russ Helm; CLIA#: [id number]). Review for send out and | | | technical processing [facility] | | [facility], [address] [place] [address] | | | [address] (Metal Alloy Scientist: Eliezer Helm M.D.; CLIA#: | | | [id number]). REASON FOR ADDENDUM: To add request for molecular | | | testing. ADDENDUM COMMENT: At the request of Milton Salazar MD | | | archived slide(s) and block(s) for case [id number] are retrieved on | | | Smitha Rider and are reviewed by a pathologist to assess | | | adequacy for PD-L1 (Keytruda) testing. Block A1 is sent to | | | [facility] [place], [place]. JEFFREY:[facility] PERFORMING | | | LABORATORY: The Technical Component Processing and Analysis of this | | | test was completed at [facility], [address] [place] [address] | | | [place], [place] / [address] / [phone] / CLIA #[id number] / Medical | | | Director: Dr. Doc Chakraborty. The Professional Component of this | | | test was completed at [facility] [place], [address] [place] [address], [address], | | | [place], [place] / [address] / [phone] / CLIA # [id number] / Medical | | | Director: Dr. Mita Salgado, (Accession / CaseNo: [id number] / | | | [id number]). A detailed copy of the report is [...]
--- OUTSIDE RECORDS SUMMARY | ~2020-08-08 | XMS | Encounter Summary ---
Demographics + + + | Address | [address] | | | [place] [address] | + + + | Home Phone [...] Team Providers + +------+ + | Care Office Machine Repair Shop Supervisor Name | Role | Phone | [...] | 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, | [address] | | | | | adenocarcino | MD [address] | [place], | | | | | ma of brain | [address] | [place] [address] | | | | | (HCC) | [place], | Phone: | | | | | Procedures | [place] [address] | [phone] | | | | | CT Treatment | Phone: | Fax: | | | | | Plan | [phone] | [phone] | | | | | Complex | Fax: | | | | | | | [phone] | | +--------+--------+ + + + + [...] | 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, | [address] | | | | | adenocarcino | MD [address] | [place], | | | | | ma of brain | [address] | [place] [address] | | | | | (HCC) | [place], | Phone: | | | | | Procedures | [place] [address] | [phone] | | | | | CT Treatment | Phone: | Fax: | | | | | Plan | [phone] | [phone] | | | | | Complex | Fax: | | | | | | | [phone] | | +--------+--------+ + + + + Encounter Details +--------+ + + + + | Date | Type | Department | Care Team | Description | +--------+ + + + + | 07/19/ | Hospital | [facility] | Susie Montemayor | 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, 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 | | | | [place], | [place], [place] | brain (HCC) | | | | [place] [address] | [address] | | | | | [phone] | | | +--------+ + + + [...] 08/12/ | Appointment | Oncology | Elmer Sliva | | | 2019 | | | MD [address] | | | | | | [place] | | | | | | [address] | | | | | | | | +--------+ + + + + | 08/12/ | Hospital | Infusion Therapy | Elmer Silva | | | 2019 | Encounter | | MD Trip [address] | | | | | | [place], [place] | | | | | | [address] | | | | | | | | +--------+ + + + + | 08/12/ | Appointment | Oncology | Lionel Benson | | | 2019 | | | Ze Un[address] | | | | | | [address] [place] | | | | | | [place] [address] | | | | | | [phone] | | | | | | | | +--------+ + + + + | 08/19/ | Appointment | Oncology | Elmer Silva | | | 2019 | | | E, [address] | | | | | | [place], [place] | | | | | | [address] | | | | | | | | +--------+ + + + + | 08/19/ | Appointment | Infusion Therapy | Elmer Silva | | | 2019 | | | E, [address] | | | | | | [place], [place] | | | | | | [address] | | | | | | | [...] [place] | | | | | | [address] | | | | | | | [...] [place] | | | | | | [address] | | | | | | | [...] [place] | | | | | | [address] | | | | | | | [...] | | | | | | [place], [place] | | | | | | [address] | | | | | | | | +--------+ + + + + documented as of this encounter Procedures + +--------+ + + + | Procedure Name | Priori | Date/Time | Associated Diagnosis | Comments | | | ty | | | | + +--------+ + + + | CT TREATMENT PLAN | Routin | 07/19/2020 | Secondary | Results for this | | COMPLEX | e | 11:19 AM | adenocarcinoma of | procedure are in the | | | | PDT | brain (HCC) | results section. | + +--------+ + + + documented in this encounter Results CT Treatment Plan Complex (07/19/2020 11:19 AM PDT) + + | Specimen | [...]
--- OUTSIDE RECORDS SUMMARY | ~2020-08-08 | XMS | Encounter Summary ---
Demographics + + + | Address | [address] | | | [place] [address] | + + + | Home Phone [...] Team Providers + +------+ + | Care Fuselage Framer Name | Role | Phone | + [...] + + | 03/14/ | Telephone | [facility] | Ashley Doty RN | Testing (Caris ) | | 2020 | | [facility] | | | | | | [facility] [address] | | | | | [address] | | | | | | [place] [address] | | | | | | [phone] | | | +--------+ + + + [...] results per Olena request to: [address] [place] [address] [place] [address] I will also be taking a copy to HIM to be scanned into [employer]. elephone Encounter - Ashley Doty RN - 03/28/2020 10:49 AM PDTReceived a fax from [facility] stating they needed a letter of medical necessity. I had Dr. Salazar signed the letter. I have fax Dr. Salazar progress note (03/26/20), p athology report ([id number]), and medical necessity letter to [facility]. Fax confirmation receive d on 03/28/20 @ 9908. e lephone Encounter - Ashley Doty RN - 03/14/2020 11:06 AM PDTDr. Salazar is requesting additional testing through [facility] on the right periventricular mass biopsy obtain on 02/27/20 . I have submitted the requisition form online. Dr. Salazar progress note (02/14/20), ashley grahamgy report (specimen A), and a copy of her insurance card. Confirmation received on @ 0411. documented in this encounter Plan of Treatment +--------+ + + + + | Date | Type | Specialty | Care Team | Description | +--------+ + + + + | 08/12/ | Appointment | Oncology | Elmer Silva | | | 2019 | | | MD [address]az[address] Dominique | | | | | | [place] | | | | | | [address] | | | | | | | | +--------+ + + + + | 08/12/ | Hospital | Infusion Therapy | Elmer Silva | | | 2019 | Encounter | | MD Lazaro Dominique | | | | | | [place] | | | | | | [address] | | | | | | | | +--------+ + + + + | 08/12/ | Appointment | Oncology | Lionel Benson | | 2019 | | | [address] | | | | | | [address] | | | | | | [place] [address] | | | | | | [phone] | | | | | | | | +--------+ + + + + | 08/19/ | Appointment | Oncology | Elmer Silva | | | 2019 | | | E, [address] | | | | | | [place] | | | | | | [address] | | | | | | | | +--------+ + + + + | 08/19/ | Appointment | Infusion Therapy | Elmer Silva | | | 2019 | | | E, MD [address] | | | | | | [place] | | | | | | [address] | | | | | | | [...] [place] | | | | | | [address] | | | | | | | [...] [place] | | | | | | [address] | | | | | | | [...] [place] | | | | | | [address] | | | | | | | [...] [place] | | | | | | [id number] | | | | | | | | +--------+ + + + + documented as of this encounter Visit Diagnoses Not on filedocumented in this encounter"
--- OUTSIDE RECORDS SUMMARY | ~2020-08-08 | XMS | Encounter Summary ---
Demographics + + + | Address | [address] | | | [place] [address] | + + + | Home Phone | | + + + | Preferred Language | Unknown | + + + | Marital Status | Single | + + + | Gnosticist Affiliation | Unknown | + + + [...] Team Providers + +------+ + | Care Desk Operator Name | Role | Phone | [...] | | | | Diagnoses | | Hood, | | | | | Brain mass | | DO Lemuel | | | | | Procedures | | [address] | | | | | [place] | | [address] | | | | | STEREOTACTIC | | B | | | | | BRAIN | | [place] | | | | | [place] | | [address] | | | | | [place] | | Phone: | | | | | STEREOTACTIC | | [phone] | | | | | COMP ASSIST | | Fax: | | | | | | | [phone] | | | | | PROC,CRANIAL | [...] + + | 02/26/ | Hospital | [facility] | Lemuel Da Silva DO | Brain mass | | 2019 - | Encounter | [facility] | [address] | | | | | [address] | [address] | | | 02/27/ | | [place], [place] | [place] [address] | | | 2019 | | [address] | [phone] | | | | | [phone] | | | +--------+ + + + [...] 02/28/2020 12:15 PM PDT Neurosurgery Discharge Summary [facility] Neurosurgery Provider: Lemuel Da Silva DO [...] Surg suzanne: Lemuel Da Silva DO; [place] [facility] [place] BRE[place] BIOPSY Right 06/15/2019 Procedure: US GUIDED BREAST BIOPSY RIGHT - Location: [facility] EXTERNAL IMAGING BREAST BIOPSY Right 06/15/2019 Procedure: US GUIDED BREAST BIOPSY RIGHT - Location: [facility] EXTERNAL IMAGING BREAST BIOPSY Right 06/15/2019 [...] Grimes a 59 y.o.femalepresents [facility] with chief complaint of newly diagnosed [...] Sensation:Normal reported sensation to light touch Cerebellar: xuyqmi-of-abob intact, no dysdiadokinesia or dysmetria noted Significant [...] education and discussion regarding discharge undertaken with soot amaya. Reviewed all home medications and risks of medications with the patient. Explained w ith patient the hospital and if applicable the operative course. All questions were answered . Instructions were given to the patient on signs and symptoms for which to return to the [facility]. Patient educated on warning signs of infection and instructions to return if those si gns occur. Patient voiced understanding of education and agrees with Disposition: home Condition: Stable Code Status: Prior No discharge procedures on file. Possible Follow Up Numbers: Zuleyka Martínez [id number] [facility] [address] Clinic visit in 2 weeks Discharge Medications [...] Board Certified Neurosurgeon / Chief of Neurosurgery [facility] Office d ocumented in [...] Da Silva, - 02/27/2020 6:57 AM PDT [facility] Service: Neurosurgery Pre-Operative History & Physical [...] Board Certified Neurosurgeon / Chief of Neurosurgery [facility] Office 02/27/2020 6:57 AM Lemuel Joseph DO - 02/27/2020 6:42 AM PDTFormatting of this note might be different from the o riginal. Neurosurgery Clinic Note [facility] Provider: Lemuel Da Silva DO Date [...] file Gets together: Not on file Attends methodist service: Not on file Active member of [...] report ed sensation to light touch Cerebellar: lfcrnl-mr-tsca intact, no dysdiadokinesia or dysmetria noted Lab [...] Board Certified Neurosurgeon / Chief of Neurosurgery [facility] Parts of this document have been created with voice recognition software. Although I have p roofread the note, business information consultant errors may still exist. documented in this [...] Documentation: sit to/from stand Sit-Stand, Level of [place]: modified independent, independent Gait Gait Comments: WNL Level of [place]: modified independent, independent Assistive Device: none Distance [...] might be different from t chacorta original. [facility] Service: Neurosurgery Operative Note Pre-operative Diagnosis: [...] to perminent Surgeon: Lemuel Da Silva DO Machine Joiner Cementer(s): none Findings: routine stealth guided biopsy Description of Procedure: The patient was brought to the operating room, placed under gene ral endotracheal anesthesia. She was positioned 180 degrees away from anesthesia with her h ead placed in [facility] headholder. Stealth navigation was registered and confirmed [...] Board Certified Neurosurgeon / Chief of Neurosurgery [facility] Office documented in this enc ounter Plan of Treatment +--------+ + + + + | Date | Type | Specialty | Care Team | Description | +--------+ + + + + | 08/12/ | Appointment | Oncology | Elmer Silva | | | 2019 | | | MD Lazaro Wagner [address] | | | | | | [facility] [place] | | | | | | [id number] | | | | | | | | +--------+ + + + + | 08/12/ | Hospital | Infusion Therapy | Elmer Silva | | | 2019 | Encounter | | E, [address] | | | | | | [address] [place] | | | | | | [address] | | | | | | | | +--------+ + + + + | 08/12/ | Appointment | Oncology | Lionel Benson | | | 2019 | | | J, [facility] [address] | | | | | | [address] [place] | | | | | | [place] [address] | | | | | | [phone] | | | | | | | | +--------+ + + + + | 08/19/ | Appointment | Oncology | Elmer Silva | | | 2019 | | | E, [address] | | | | | | [address] [place] | | | | | | [address] | | | | | | | | +--------+ + + + + | 08/19/ | Appointment | Infusion Therapy | Elmer Silva | | | 2019 | | | MD Lazaro [address] | | | | | | [facility] [place] | | | | | | [address] | | | | | | | [...] [place] | | | | | | [address] | | | | | | | | +--------+ + + + + | 09/09/ | Appointment | Infusion Therapy | | | | 2019 | | | | | +--------+ + + + + | 09/16/ | Office | Oncology | Elmer Silva | | | 2020 | Visit | | E, [address] | | | | | | [place] | | | | | | [address] | | | | | | | [...] [place] | | | | | | [address] | | | | | | | [...] [place] | | | | | | [address] | | | | | | | [...] + + | Performing | Address | City/State[facility] | Phone Number | | [...] diagnoses called to Dr. Da Silva via [employer] at 8:36. The Gross | | | [...] strong | | | evidence against a BIZTALK SOFTWARE DEVELOPER primary. The positive CA19-9 and polyclonal | | | CEA are strong evidence for a pancreatic or hepatobiliary primary. | | | Please correlate with imagingstudies. As part of [facility]' | | | Quality Improvement Program, this [...] | | and its performancecharacteristics determined by [facility]. | | | It has not been cleared or approved by the U.S. Food and Drug | | | Administration. The FDA has determined that such clearance or | | | approval is notnecessary. This test is used for clinical purposes. | | | It should not be regarded as investigational or for research. | | | [facility] is certified under the Clinical Laboratory | | | ImprovementAmendments of 1988 (CLIA) as qualified to perform high | | | complexity clinical laboratory testing. PERFORMING LABORATORY:The | | | technical component was performed by [facility], [address] | | | [place] [address] (Contractor General Building: Nissa Calle MD; CLIA# | | | [id number]). Frozen section was performed at [facility] | | | [address] [address] (Contractor General Building: | | | Ricardo Renteria M.D.; CLIA#: [id number]). The professional | | | interpretation was performed by [facility] | | | [facility], [address] [place] [address]. REASON FOR ADDENDUM:To | | | document review of material for external testing. ADDENDUM COMMENT:At | | | the request of Renay Zimmerman, archived slides and blocks for case | | | [id number] are retrieved on Olena Yaneli Rider and reviewed by a | | | pathologist to assess adequacy for MO Profile testing. Block B2 was | | | sent to [employer]. AMB:[facility] Professional interpretation was | | | [facility] | | | [place] [address] (Contractor General Building: [employer] | | | Russ Renteria; CLIA#: [id number]). Diagnostician: Ricardo Renteria | | | MDPathologistDiagnostician: Nissa Calle MDPathologistDiagnostician: | | | Deni Cui DOPathologistElectronically Signed 03/21/2020 | | |At the request of Renay Zimmerman, archived slides and blocks for case [id number] are retriev ed on [facility] and reviewed by a pathologist to assess adequacy for MO Profile rachell ting. | | | | | |Block B2 was sent to [employer]. | | | | | |AMB:[facility] | | | | | |Professional interpretation [facility], [address] [place] [address] (Contractor General Building: Ricardo Renteria M.D.; CLIA#: [id number]). | | | | | |Diagnostician: Ricardo [...] + + + | BB BAND | [id number] | | [facility] | | | | | | LABORATORY | | + + + + + + | BB BAND | Testing performed at | | [facility] | | | | CHARLEEN;[address] | | LABORATORY | | | | Taye;[place] [address] | | | | + + + + + + + + | Specimen | + + | Blood | + + + + + + + | Performing | Address | City/State/Zipcode | Phone Number | | Organization | | | | + + + + + | [facility] | [address] | [place] [address] | [phone] | + + + + + PTT (02/27/2020 6:50 AM PDT) + + + + + + | Component | Value | Ref Range | Performed | Pathologist | | | | | At | Signature | + + + + + + | PTT | 30Comment: Testing | 23 - 32 seconds | [place] | | | | performed at [facility];[address] | | LABORATORY | | | | [address];[place] | | | | | | [address] | | | | + + + + + + + + | Specimen | + + | Blood | + + + + + + + | Performing | Address | City/State/Zipcode | Phone Number | | Organization | | | | + + + + + | [facility] | [address] | [place] [address] | [phone] | + + + + + Protime [...] | | | | | performed at [facility] | | | | | | [facility];[place], [place] | | | | | | [address] | | | | + + + + + + + + | Specimen | + + | Blood | + + + + + + + | Performing | Address | City/State/Zipcode | Phone Number | | Organization | | | | + + + + + | [facility] | [address] | [place] [address] | [phone] | + + + + + CBC [...] | | | Absolute | performed at [facility];[address] | [address] | LABORATORY | | | | [address];[place] | | | | | | [address] | | | | + + + + + + + + | Specimen | + + | Blood | + + + + + + + | Performing | Address | City/State/Zipcode | Phone Number | | Organization | | | | + + + + + | [facility] | [address] | [place] [address] | [phone] | + + + + + Basic [...] | | | | | performed at [facility];[address] | | | | | | [address];[place], [place] | | | | | | [address] | | | | + + + + + + + + | Specimen | + + | Blood | + + + + + + + | Performing | Address | City/State/Zipcode | Phone Number | | Organization | | | | + + + + + | [facility] | [address] [facility] | [place] [address] | [phone] | + + + + + documented [...] | | | | | | longer, jubemj-svn-wjfjl use of | | | | | [...] | | | | | Pain, Starting Tu02/27/20 at | | | | | | [...] | | | | | | | coawnf-azx-btbej use of at least | | | [...] | | | | | Vomiting, Starting e 02/27/20 | | | | | | [...] | | | | | pre-op, Starting 02/27/20 at | | AM PDT | | | | | 0653, For 1 dose, Pre-op | | | | | | + +-------+ +---+---+---+ +---+---+ | | | +---+---+ documented in this encounter
--- OUTSIDE RECORDS SUMMARY | ~2020-08-08 | XMS | Encounter Summary ---
Demographics + + + | Address | [address] | | | [place] [address] | + + + | Home Phone [...] Team Providers + +------+ + | Care Microelectronics Engineer Name | Role | Phone | [...] Facial | Susie M, | [address] | | | | | weakness | MD [address] | [place], | | | | | Procedures | [address] | [place] | | | | | MRI Brain w | [place], | [address] | | | | | wo Contrast | [place] [address] | Phone: | | | | | OCT 20 | Phone: | [phone] | | | | | | [phone] | Fax: | | | | | | Fax: | [phone] | | | | | | [phone] | | +--------+--------+ + + + + Encounter Details +--------+ + + + + | Date | Type | Department | Care Team | Description | +--------+ + + + + | 07/18/ | Orders Only | YULIA GREY | Albina[facility]een | Facial weakness | | 2020 | | [facility] | MD Jared [address] | (Primary Dx) | | | | [facility] [address] [place], [place] | | | | | [address] | [address] | | | | | [place] [address] | | | | | | [phone] | | | +--------+ + + + [...] [place] | | | | | | [address] | | | | | | | | +--------+ + + + + | 08/12/ | Hospital | Infusion Therapy | Elmer Silva | | | 2019 | Encounter | | MD Lazaro [address] | | | | | | [place] | | | | | | [address] | | | | | | | | +--------+ + + + + | 08/12/ | Appointment | Oncology | Lionel Benson | | 2019 | | | Ze Unger [address] | | | | | | [address] | | | | | | [place] [address] | | | | | | [phone] | | | | | | | | +--------+ + + + + | 08/19/ | Appointment | Oncology | Elmer Silva | | | 2019 | | | E, MD [address] | | | | | | [place] | | | | | | [address] | | | | | | | | +--------+ + + + + | 08/19/ | Appointment | Infusion Therapy | Elmer Silva | | | 2019 | | | E, MD [address] | | | | | | [place] | | | | | | [address] | | | | | | | [...] [place] | | | | | | [address] | | | | | | | [...] [place] | | | | | | [address] | | | | | | | [...] [place] | | | | | | [address] | | | | | | | | +--------+ + + + + | 09/23/ | Appointment | Infusion Therapy | | | | 2019 | | | | | +--------+ + + + + | 11/22/ | Appointment | Radiation Oncology | Susie Montemayor | | | 2020 | | | MD Lazaro [address] | | | | | | [place], [place] | | | | | | [address] | | | | | | | | +--------+ + + + + documented as of this encounter Results MRI Brain w wo [...] Procedure Note | + + | Christopher, [id number] - 07/18/2020 2:40 PM PDT MRI BRAIN [...] Diagnosis | + + | Facial weakness - Primary | + + documented in this encounter"
--- OUTSIDE RECORDS SUMMARY | ~2020-08-08 | XMS | Encounter Summary ---
Demographics + + + | Address | [address] | | | [place] [address] | + + + | Home Phone [...] Author + + + | Author | [facility] | | | and [place] | + + + | Organization | [facility] | | [...] Team Providers + +------+ + | Care Drapery Hanger Name | Role | Phone | + [...] | | | | Diagnoses | | [place], | | | | | Brain mass | | DO Lemuel | | | | | Procedures | | [address] | | | | | [place] | | [address]IVE [address] | | | | | STEREOTACTIC | | B | | | | | BRAIN | | [place] | | | | | [place] | | [address] | | | | | [place] | | Phone: | | | | | STEREOTACTIC | | [phone] | | | | | COMP ASSIST | | Fax: | | | | | | | [phone] | | | | | PROC,CRANIAL | [...] + + | 02/26/ | Surgery | [facility] | Lemuel Da Silva DO | Stereotactic biopsy | | 2019 | | [facility] | [address] | of right frontal | | | | OPERATING RO[address] | lesion. Possible | | | | [address] | [place] [address] | conversion to open | | | | [place], [place] | [phone] | | | | | [address] | | | | | | [phone] | | | +--------+---------+ + + + [...] 02/28/2020 12:15 PM PDT Neurosurgery Discharge Summary [facility] Neurosurgery Provider: Lemuel Da Silva DO [...] Surg suzanne: Lemuel Da Silva DO; [place] [facility] [place] BRE[place] BIOPSY Right 06/15/2019 Procedure: US GUIDED BREAST BIOPSY RIGHT - Location: [facility] EXTERNAL IMAGING BREAST BIOPSY Right [...] 02/02/2020:Olena Grimes a 59 y.o.femalepresents to neurosurgery [facility] with chief complaint of newly diagnosed [...] Sensation:Normal reported sensation to light touch Cerebellar: wmtpsj-gu-[id number] intact, no dysdiadokinesia or dysmetria noted Significant [...] [facility] educated on warning signs of infection and instructions to return if those si gns occur. Patient voiced understanding of education and agrees with Disposition: home Condition: Stable Code Status: Prior No discharge procedures on file. Possible Follow Up Numbers: Zuleyka Martínez [id number] [place] [address] Clinic visit in 2 weeks Discharge Medications [...] Certified Neurosurgeon / Chief of Neurosurgery [facility] Office d ocumented in [...] this encou nter H&P Notes Lemuel Da Silva DO - 02/27/2020 6:57 AM PDT [facility]: Neurosurgery Pre-Operative History & Physical Interval [...] Certified Neurosurgeon / Chief of Neurosurgery [facility] [place] [facility] 02/27/2020 6:57 AM Lemuel Joseph DO - 02/27/2020 6:42 AM PDTFormatting of this note might be different from the o riginal. Neurosurgery Clinic Note [facility] Neuroscience [place] Provider: Lemuel Da Silva DO Date : [...] file Gets together: Not on file Attends mandaen service: Not on file Active member of [...] report ed sensation to light touch Cerebellar: abogzf-ao-cpyz intact, no dysdiadokinesia or dysmetria noted Lab [...] repeat MRI in 3 months with diamond fairchilded the patient although with patient's aggressive oncologic [...] Certified Neurosurgeon / Chief of Neurosurgery [facility] [place] [facility] Parts of this document have been created with voice recognition software. Although I have p roofread the note, sweatband maker errors may still exist. documented in this [...] incision c/d/I. Chart check complete. Tiffany Slaughter, RN lan of Care - Deni Ordonez, PT, [...] Documentation: sit to/from stand Sit-Stand, Level of [place]: modified independent, independent Gait Gait Comments: WNL Level of [place]: modified independent, independent Assistive Device: none Distance [...] of this note might be different from ning whatley original. [facility]: Neurosurgery Operative Note Pre-operative Diagnosis: 1. [...] to perminent Surgeon: Lemuel Da Silva DO Rolling Attendant(s): none Findings: routine stealth guided biopsy Description of Procedure: The patient was brought to the operating room, placed under gene ral endotracheal anesthesia. She was positioned 180 degrees away from anesthesia with her h ead placed in [facility] headholder. Stealth navigation was registered and confirmed to micah e accurate as we identified approximately Rosaura's [...] Certified Neurosurgeon / Chief of Neurosurgery [facility] Office documented in this enc ounter Plan of Treatment +--------+ + + + + | Date | Type | Specialty | Care Team | Description | +--------+ + + + + | 08/12/ | Appointment | Oncology | Elmer Silva | | | 2019 | | | E, MD [address] | | | | | | [address] [place] | | | | | | [address] | | | | | | | | +--------+ + + + + | 08/12/ | Hospital | Infusion Therapy | Elmer Silva | | | 2019 | Encounter | | E, [address] | | | | | | [address] [place] | | | | | | [address] | | | | | | | | +--------+ + + + + | 08/12/ | Appointment | Oncology | Lionel Benson | | | 2019 | | | J, PharmD [address] | | | | [address] [place] | | | | | | [place] [address] | | | | | | [phone] | | | | | | | | +--------+ + + + + | 08/19/ | Appointment | Oncology | Elmer Silva | | 2019 | | | E, [address] | | | | | | [place], [place] | | | | | | [address] | | | | | | | | +--------+ + + + + | 08/19/ | Appointment | Infusion Therapy | Elmer Silva | | | 2019 | | | MD [address] | | | | | | [place] | | | | | | [address] | | | | | | | [...] [place] | | | | | | [address] | | | | | | | [...] [place] | | | | | | [address] | | | | | | | [...] [place] | | | | | | [address] | | | | | | | | +--------+ + + + + | 09/23/ | Appointment | Infusion Therapy | | | | 2019 | | | | | +--------+ + + + + | 11/22/ | Appointment | Radiation Oncology | Susie Montemayor | | | 2020 | | | MD Jared [address] | | | | | | [address] [place] | | | | | | [address] | | | | | | | [...] diagnoses called to Dr. Da Silva via [email or web address] at 8:36. The Gross | | | [...] strong | | | evidence against a [employer] primary. The positive CA19-9 and polyclonal | | | CEA are strong evidence for a pancreatic or hepatobiliary primary. | | | Please correlate with imagingstudies. As part of [facility]' | | | Quality Improvement Program, this [...] | | and its performancecharacteristics determined by [facility]. | | | It has not been cleared or approved by the U.S. Food and Drug | | | Administration. The FDA has determined that such clearance or | | | approval is notnecessary. This test is used for clinical purposes. | | | It should not be regarded as investigational or for research. | | | [facility] is certified under the Clinical Laboratory | | | ImprovementAmendments of 1988 (CLIA) as qualified to perform high | | | complexity clinical laboratory testing. PERFORMING LABORATORY:The | | | technical component was performed by [facility], [address] [place] [address] | | | [place] [address] (Aerospace Assembler: Nissa Calle MD; CLIA# | | | [id number]). Frozen section was performed at [facility] | | | Branch, [address] [place] [address] (Aerospace Assembler: | | | Ricardo Renteria M.D.; CLIA#: [id number]). The professional | | | interpretation was performed by [facility] | | | [place] [facility], [address] [place] [address]. REASON FOR ADDENDUM:To | | | document review of material for external testing. ADDENDUM COMMENT:At | | | the request of Renay Zimmerman, archived slides and blocks for case | | | [id number] are [facility] and reviewed by a | | | pathologist to assess adequacy for ND Profile testing. Block B2 was | | | sent to [facility]. AMB:[facility] Professional interpretation was | | | [facility] | | | [place] [address] (Aerospace Assembler: Ricardo | | | Russ Renteria; CLIA#: [id number]). Diagnostician: Ricardo Renteria | | | MDPathologistDiagnostician: Nissa Calle MDPathologistDiagnostician: | | | Deni Cui DOPathologistElectronically Signed 03/21/2020 | | |At the request of Renay Zimmerman, archived slides and blocks for case [id number] are retriev ed on [facility] and reviewed by a pathologist to assess adequacy for ND Profile rachell ting. | | | | | |Block B2 was sent to [employer]. | | | | | |AMB:sl | | | | | |Professional interpretation was performed by [facility], [facility], [address] [place] [address] (Aerospace Assembler: Ricardo Renteria M.D.; CLIA#: [id number]). | | | | | |Diagnostician: Ricardo [...] + + + | [facility] | [id number] | | [facility] | | | | | | LABORATORY | | + + + + + + | [facility] | Testing performed at | | [facility] | | | | [facility];[address] | | LABORATORY | | | | [address];[place] [address] | | | | + + + + + + + + | Specimen | + + | Blood | + + + + + + + | Performing | Address | City/State/Zipcode | Phone Number | | Organization | | | | + + + + + | [facility] | [address] | [place] [address] | [phone] | + + + + + PTT (02/27/2020 6:50 AM PDT) + + + + + + | Component | Value | Ref Range | Performed | Pathologist | | | | | At | Signature | + + + + + + | PTT | 30Comment: Testing | 23 - 32 seconds | [place] | | | | performed at [facility];[address] | | LABORATORY | | | | [address];[place] | | | | | | [address] | | | | + + + + + + + + | Specimen | + + | Blood | + + + + + + + | Performing | Address | City/State/Zipcode | Phone Number | | Organization | | | | + + + + + | [facility] | [address] | [place] [address] | [phone] | + + + + + Protime [...] | | | | | performed at [facility] | | | | | | [facility];[place], [place] | | | | | | [address] | | | | + + + + + + + + | Specimen | + + | Blood | + + + + + + + | Performing | Address | City/State/Zipcode | Phone Number | | Organization | | | | + + + + + | [facility] | [address] | [place] [address] | [phone] | + + + + + CBC [...] | | | Absolute | performed at [facility];[address] | [address] | LABORATORY | | | | [address];[place], [place] | | | | | | [address] | | | | + + + + + + + + | Specimen | + + | Blood | + + + + + + + | Performing | Address | City/State/Zipcode | Phone Number | | Organization | | | | + + + + + | [facility] | [address] | [place] [address] | [phone] | + + + + + Basic [...] | | | | | performed at [facility];[address] | | | | | | [facility];[place], [place] | | | | | | [address] | | | | + + + + + + + + | Specimen | + + | Blood | + + + + + + + | Performing | Address | City/State/Zipcode | Phone Number | | Organization | | | | + + + + + | [facility] | [address] [facility] | [place] [address] | [phone] | + + + + + documented [...] | | | | | 02/27/20 at 0817, Intra-op | | | | [...] +---+---+ + +-------+ +-------+---+---+ | DULoxetine (CYMBALTA) | Given | 02/28/20 | 30 mg [...]
--- OUTSIDE RECORDS SUMMARY | ~2020-08-08 | XMS | Encounter Summary ---
Demographics + + + | Address | [address] | | | [place] [address] | + + + | Home Phone [...] Team Providers + +------+ + | Care Recovery Assistant Name | Role | Phone | + +------+ + | Zuleyka Martínez | PCP | | + +------+ + Reason for Visit + + + | Reason | Comments | + + + | Psychosocial Support | | + + + Encounter Details +--------+ + + + + | Date | Type | Department | Care Team | Description | +--------+ + + + + | 07/23/ | Documentati | [facility] | Rosalio Lindsey, | Psychosocial Support | | 2020 | on | [facility] | BANK SECRECY ACT OFFICER | | | | | [facility] [address] | | | | | | [address] | | | | | | [place] [address] | | | | | | [phone] | | | +--------+ + + + [...] documented as of this encounter Progress Notes Rosalio Lindsey MSW - 07/23/2020 10:33 AM PDTThis BANK SECRECY ACT OFFICER met with Olena Rider to provide p sychosocial support for her recent progression of cancer. Olena completed the release of information to apply for social security disability. Discussed the benefit of completing an advance medical directive. Provided her with the [facility] patient workbo ok and an application for the [employer]. Olena knows how to reach the oncology soc ial worker should she need further assistance and support. documented in this encounter Plan of Treatment +--------+ + + + + | Date | Type | Specialty | Care Team | Description | +--------+ + + + + | 08/12/ | Appointment | Oncology | Elmer Silva | | | 2019 | | | MD [address] | | | | | | [place] | | | | | | [address] | | | | | | | | +--------+ + + + + | 08/12/ | Hospital | Infusion Therapy | Elmer Silva | | | 2019 | Encounter | | E, [address] | | | | | | [place] | | | | | | [address] | | | | | | | | +--------+ + + + + | 08/12/ | Appointment | Oncology | Lionel Benson | | | 2019 | | | J, PharmCorky [address] | | | | [address] [place] | | | | | | [place] [address] | | | | | | [phone] | | | | | | | | +--------+ + + + + | 08/19/ | Appointment | Oncology | Elmer Silva | | | 2019 | | | E, [address] | | | | | | [address] [place], [place] | | | | | | [address] | | | | | | | | +--------+ + + + + | 08/19/ | Appointment | Infusion Therapy | Elmer Silva | | | 2019 | | | MD [address] | | | | | | [address] [place] | | | | | | [address] | | | | | | | [...] [place] | | | | | | [address] | | | | | | | [...] [place] | | | | | | [address] | | | | | | | [...] [place] | | | | | | [address] | | | | | | | [...] [place] | | | | | | [address] | | | | | | | | +--------+ + + + + documented as of this encounter Visit Diagnoses Not on filedocumented in this encounter"
--- OUTSIDE RECORDS SUMMARY | ~2020-08-08 | XMS | Encounter Summary ---
Demographics + + + | Address | [address] | | | [place] [address] | + + + | Home Phone [...] Team Providers + +------+ + | Care [employer] Player Name | Role | Phone | + +------+ + | Zuleyka Martínez | PCP | | + +------+ + Reason for Visit + + + | Reason | Comments | + + + | Facial Swelling | | + + + Auth/Cert +--------+--------+ + + + + | Status | Reason | Specialty | Diagnoses / | Referred By | Referred To | | | | | Procedures | Contact | Contact | +--------+--------+ + + + + | | | | Diagnoses | | | | | | | Preseptal | | | | | | | cellulitis | | | +--------+--------+ + + + + Encounter Details +--------+ + + + + | Date | Type | Department | Care Team | Description | +--------+ + + + + | 01/03/ | Emergency | [facility] | Srinivas Blakely MD | Preseptal cellulitis | | 2020 - | | [facility] | [address] | (Primary Dx); | | | | [address] [place] | [place], [place] | Blepharitis of both | | 01/05/ | | [place] [address] | [id number] | upper and lower | | 2020 | | [phone] | | eyelid of left eye, | | | | | Tamica Pete | unspecified type; | | | | | MD Lloyd [address] | Periorbital | | | | | [address] [place] | cellulitis of left | | | | | [place] [address] | eye; Brain lesion; | | | | | [phone] | Malignant neoplasm | | | | | | of lung, unspecified | | | | | | laterality, | | | | | | unspecified part of | | | | | | lung (HCC); Thyroid | | | | | | cancer (HCC); | | | | | | Malignant neoplasm | | | | | | of female breast, | | | | | | unspecified estrogen | | | | | | receptor status, | | | | | | unspecified | | | | | | laterality, | | | | | | unspecified site of | | | | | | breast (HCC); | | | | | | Hypothyroidism, | | | | | | unspecified type; | | | | | | Intracranial | | | | | | space-occupying | | | | | | lesion | +--------+ + + + + Social [...] + + + | Blood Pressure | 118/75 | 01/06/2020 7:24 AM | | | | | PST | | + + + + + | Pulse | 87 | 01/06/2020 7:24 AM | | | | | PST | | + + + + + | Temperature | 36.9 C (98.4 F) | 01/06/2020 7:24 AM | | | | | PST | | + + + + + | Respiratory Rate | 18 | 01/06/2020 7:24 AM | | | | | PST | | + + + + + | Oxygen Saturation | 98% | 01/06/2020 7:24 AM | | | | | PST | | + + + + + | Inhaled Oxygen | - | - | | | Concentration | | | | + + + + + | Weight | 82.7 kg (182 lb 5.1 | 01/06/2020 4:00 AM | | | | oz) | PST | | + + + + + | Height | 174 cm (5' 8.5") | 01/04/2020 1:57 PM | | | | | PST | | + + + + + | Body Mass Index | 27.32 | 01/04/2020 1:57 PM | | | | | PST [...] documented as of this encounter Discharge Summaries Anupam Ball MD - 01/06/2020 9:04 AM PSTFormatting of this note might be different f rom the original. DISCHARGE SUMMARY Patient Name: Olena Rider : 1960 Date of Admission: 01/04/2020 Date of Discharge: 01/06/20 Admitting Physician: Tamica Pete MD Discharging Physician: Anupam Ball MD Primary Care Provider: Zuleyka Martínez Discharge Diagnoses: Principal Problem: Periorbital cellulitis of left eye Active Problems: Intracranial space-occupying lesion Non-small cell cancer of right lung Primary malignant neoplasm of female breast Blepharitis of eyelid of left eye Resolved Problems: * No resolved hospital problems. * Consultants: None Procedures: Ct Orbit Sella Post Fossa Iac W Cont Result Date: 01/04/[address] ORBITS 01/04/2020 10:52 AM CLINICAL HISTORY: left periorbital swelling COMPAR NICOLE: None TECHNIQUE: Axial images are performed through the orbits following the uneventful intravenous administration of 85 cc Omnipaque 350 contrast. Coronal and sagittal reformati ons are also performed. FINDINGS: There is left preseptal periorbital and malar soft tissue swelling. A small, circumscribed collection of hypoattenuating material measuring up to 9 x 6 x 9 mm is noted superficially at the level of the left medial canthus and is suspicious f or abscess. No foreign body or soft tissue gas is evident. Minimal gas along the anterior superior margin of the left orbit is likely subpalpebral. The ocular globes, lacrimal gland s, extraocular muscles and optic nerves are symmetric and unremarkable. No conclusive post septal orbital abnormality is apparent. The superior ophthalmic veins are patent and symmet wade along with the other imaged vasculature, including the cavernous sinus. No osseous abno rmality is evident. The imaged paranasal sinuses are well aerated along with the middle ear cavities and imaged mastoid air cells. There is leftward nasal septal deviation and spurri ng. A lobulated, hyperattenuating and presumably enhancing structure demonstrating probable focal internal calcification is noted at the level of the mid to anterior body of the right lateral ventricle, measuring up to 1.3 x 1.3 x 1.4 cm, and is likely intraventricular or sub ependymal in location. There is no ventricular dilation and the imaged intracranial structu res are otherwise unremarkable. 1. LEFT PRESEPTAL PERIORBITAL AND MALAR SOFT [...] Godfrey MD Electronically signed: 01/04/2020 11:32 AM Recent Results (from the past 48 hour(s)) Basic Metabolic Panel Result Value Ref Range Na 139 136 - 145 mmol/L K 4.0 3.4 - 5.1 mmol/L Cl 106 98 - 107 mmol/L CO2 25 20 - 31 mmol/L Anion Gap 8 3 - 16 mmol/L Glucose 99 60 - 106 mg/dL BUN 12 9 - 23 mg/dL Creatinine 0.87 0.55 - 1.02 mg/dL eGFR if not >60 >=60 mL/min/1.73m2 Calcium 9.1 8.7 - 10.4 mg/dL BUN/Creatinine Ratio 13.8 CBC no Differential Result Value Ref Range WBC 6.2 4.0 - 11.0 K/uL RBC 4.23 3.70 - 5.20 M/uL Hemoglobin 12.9 11.5 - 16.0 g/dL Hematocrit 39.0 34.0 - 47.0 % MCV 92.2 83.0 - 101.0 fL MCH 30.5 28.0 - 35.0 pg MCHC 33.1 32.0 - 36.0 g/dL RDW-CV 12.5 <15.0 % RDW-SD 42.4 35.1 - 46.3 fL Platelet Count 283 140 - 440 K/uL MPV 10.1 6.5 - 12.4 fL % nRBC 0 0 - 2 per 100 WBCs Absolute nRBC 0.00 0.00 - 0.01 K/uL Magnesium Result Value Ref Range Magnesium 1.7 1.6 - 2.6 mg/dL Reason for Admission: Please refer to the H&P for full details. In short, this is a 59 y.o. female with a histor y of non-small cell lung cancer, breast cancer, active smoking who presented with periorbita l swelling, pain, and redness, failed outpatient treatment with oral antibiotics Problem-Oriented Hospital Course: Left Periorbital cellulitis with anterior blepharitis - failed OP treatment with oral and topical abx - no sepsis - CT orbit showed left preseptal periorbital and malar soft tissue swelling/inflammation an d suspected small abscess at the level of medial canthus, ED spoke with Resource Forester on c all who recommended IV and topical abx - Placed on ceftriaxone and doxycyline (for MRSA coverage) - Moxifloxacin eye drops TID - artifical tears TID - warm compresses TID -Considerable improvement on January 04, she states her eyelid swelling has decreased greatly, she no longer has pain with eye movement, and vision is normal -Gave 1 more day of IV antibiotics, discharge January 05 with a prescription for 1 more week o f doxycycline and cefdinir - F/u with PCP next week Right sided intracranial lesion - incidental finding on CT, 1.3X 1.3 X 1.4 cm presumably enhancing lesion at the level of b gaby of right lateral ventricle which maybe intraventricular or subependymal -Discussed with Dr. Salazar, he will address with her in clinic as outpatient -Discussed this finding with her, and she understands it will be addressed in oncology clin ic NSCLC (RLL, Stage IIIA, s/p VATS in 2017) Papillary Thyrroid Ca (s/p thyroidectomy, LN excision and radio iodine ablation in 10/2016) Right Breast Ca (s/p lumpectomy and radiation, currently on Aromasin, followed by Dr. Sofya garcia) - OP f/u with Dr. Salazar Hypothyroidism - cont Levothyroxine - TSH normal at 2.62 Smoking: -Advise cessation, especially in the setting of active infection -She states she only smokes occasionally, declined nicotine patch, plans to quit Code Status: Full Code Disposition: Home Discharge Condition: Fair Left periorbital swelling considerably improved, redness and pain almost resolved, does hav e some mild redness and swelling in the midline if the left upper eyelid remaining Lungs clear Heart regular rate and rhythm Abdomen soft, nontender Extremities warm and well-perfused Follow-up Information Zuleyka Martínez In 1 week. Specialty: Nurse Practitioner Contact information: [id number] [facility] [address] Milton Salazar MD In 5 days. Specialty: Medical Oncology Contact information: [address] [facility] [id number] Discharge Medications New Medications Details cefdinir 300 mg capsule Take 1 capsule by mouth 2 times daily for 7 days. aka: OMNICEF doxycycline 100 mg capsule Take 1 capsule by mouth 2 times daily for 7 days. aka: VIBRAMYCIN lactobacillus GG-inulin capsule Take 1 capsule by mouth 2 times daily for 7 days. moxifloxacin 0.5% ophthalmic solution Place 1 drop into the left eye 3 times daily for 7 days. aka: VIGAMOX Unchanged Medications Details acetaminophen 500 mg tablet Take 1,000 mg by mouth every 6 hours as needed for Pain. aka: TYLENOL ALPRAZolam 0.25 mg tablet Take 0.125 mg by mouth 3 times daily as needed. For severe anxiety aka: XANAX Calcium 500 MG Tabs Take 500 mg by mouth Daily. exemestane 25 MG tablet Take 1 tablet by mouth Daily. aka: AROMASIN ibuprofen 200 mg tablet Take 400-600 mg by mouth every 6 hours as needed for Pain. aka: ADVIL, MOTRIN levothyroxine 125 mcg tablet Take 125 mcg by mouth Every other day. Before breakfast. Alternating with 112 mcg tabs aka: SYNTHROID levothyroxine 112 mcg tablet Take 112 mcg by mouth Every other day. Before breakfast. Alternating with 125 mcg tabs aka: SYNTHROID MULTIVITAMIN ADULT Tabs Take 1 tablet by mouth Daily. omeprazole 20 mg capsule Take 20 mg by mouth every morning (before breakfast). aka: priLOSEC ondansetron 4 mg disintegrating tablet Take 4 mg by mouth every 8 hours as needed for Nausea. aka: ZOFRAN ODT tobramycin 0.3% ophthalmic solution Place 1 drop into the left eye 3 times daily. For 7 days aka: TOBREX traMADol 50 mg tablet Take 50-100 mg by mouth 4 times daily as needed for Pain. aka: ULTRAM triamcinolone 0.1% cream Apply 1 Application topically 2 times daily. For 7 days to upper left eye lid aka: KENALOG zolpidem 10 mg tablet Take 10 mg by mouth nightly. aka: AMBIEN Discontinued Medications amoxicillin-clavulanate 500-125 mg per tablet aka: AUGMENTIN citalopram 20 mg tablet aka: celeXA metoprolol tartrate 50 mg tablet aka: LOPRESSOR Studies With Pending Results: None Less than 30 minutes were spent on discharge and coordination of post-hospital care. Electronically signed by: Anupam Ball MD, 01/06/2020 9:04 AM [facility] documented in this encounter Discharge Instructions Instructions Anupam Ball MD - 01/04/2020You were admitted with an infection of the t issue around the left eye. This infection has improved considerably on antibiotics. Please take cefdinir and doxycycline for a week, as well as the moxifloxacin eyedrops. You can co ntinue taking the tobramycin eyedrops at home as well. Please let your doctor know if your symptoms worsen. Probiotics Patient Discharge Information Sheet Probiotics are often thought of as "friendly bacteria" or "healthy bacteria." They are sim ilar to the bacteria that normally live inside of our body and play a role in helping to guillaume p the body working well. There is some research suggesting that taking probiotics can help prevent some of the side effects of using antibiotics. Probiotics may reduce your risk of getting diarrhea from taki ng antibiotics or coming down with Clostridium difficile infection. Clostridium difficile i s a bacteria that become active in your body when you are on antibiotics and causes a severe diarrheal illness. If you have been receiving antibiotics in the hospital, you may want to consider taking cristofer e form of a probiotic once you are discharged. You may have received this information becau se you were on probiotics in the hospital and might benefit from continuing them after you g o home. There is not a lot of scientific information about the best way to use probiotics or which type works best. We have included some possible options below that may be more affordable a nd contain the types of bacteria that have been found helpful in some studies. If you have any concerns or questions about taking probiotics, you should discuss whether y ou should take them with your doctor. If you have a severe problem with your immune system due to your illness or treatment, you should also check with your medical care team to make sure it is alright for you to take probiotics. Probiotics can be obtained in both a "pill or medication" form and from certain types of fo od such as yogurt or kefir. Below are some options that may be available in local pharmacie s or stores. A reasonable approach might be to consider taking some form of probiotics for 2 weeks after you are discharged and are off of antibiotics for at least a week. Dairy Product Options with Probiotics ? Cari's Kefir Recommended amount is 8 ounces per day. Available in many different flavors. ? Cari's Organic Yogurt (Variety of options) Recommended amount is 8 ounces per day ? Paige Fresh Yogurt Recommended amount is 6 ounces per day. Available in many different flavors Recommended probiotic formulations commonly available in Pharmacies ? VSL # 3: 1 capsule by mouth twice a day ? Culturelle: 1 capsule by mouth twice a day. ? Provella: 1 capsule by mouth twice a day documented in this encounter Medications at Time [...] + + + +---------+ + + | cefdinir (OMNICEF) | Take 1 capsule by | 14 | 0 | 01/06/20 | | | 300 mg capsule | mouth 2 times daily | capsule | | 20 | 0 | | | for 7 days. | | | | | + + + +---------+ + + | doxycycline | Take 1 capsule by | 14 | 0 | 01/06/20 | | | (VIBRAMYCIN) 100 mg | mouth 2 times daily | capsule | | 20 | 0 | | capsule | for 7 days. | | | | | + [...] + + + +---------+ + + | lactobacillus | Take 1 capsule by | 14 | 0 | 01/06/20 | | | GG-inulin | mouth 2 times daily | capsule | | 20 | 0 | | (CULTURELLE) capsule | for 7 days. | | | | | + [...] + + + +---------+ + + | moxifloxacin | Place 1 drop into | 1 mL | 0 | 01/06/20 | | | (VIGAMOX) 0.5% | the left eye 3 times | | | 20 | 0 | | ophthalmic solution | daily for 7 days. | | | | | + [...] documented as of this encounter Progress Notes Nissa Mayers, PharmD - 01/05/2020 5:07 PM PST PHARMACY SERVICES: ADMISSION MEDICATION REVIEW Olena Rider is a 59 y.o. female admitted on 01/04/2020. Patient is a reliable historian. Location of Patient when reviewed: MEDICAL FLOOR Patient s prior to admit medication and over the counter (OTC) medications/herbal supplem ents list obtained from: X Verbal interview with patient who was ABLE TO RECALL ALL name, strength, and directions X Doctor's office: Dr. Montemayor, Dr. Cota, Dr. Salazar X Pharmacy list names: [facility] (Preferred) [facility] X State Prescription Monitoring Program ([place]) X Care Everywhere X Outside Information Vaccines up to date? 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 25 mg tab 0.5 tab by mouth three times daily as needed for severe anxiety Calcium carbonate 500 mg chew tab 1 tab by mouth as needed Calcium 500 mg tab 1 tab by mout h daily Patient states she should be taking but has not been in ~1 month Ibuprofen 600 mg tab 1 tab by mouth every 6 hours as needed Ibuprofen 200 mg tab 400 to 60 0 mg by mouth every 6 hours as needed for pain Levothyroxine 125 mcg tab 1 tab by mouth daily 1 tab by mouth every other day before jimbo kfast. Alternate with 112 mcg tab 125 mcg by mouth Wednesday, Wednesday, and Wednesday on and Wednesday, Wednesday and Wednesday the next month. December is Wednesday, Wednesday, and Wednesday dose Multiple vitamins-minerals Take by mouth daily Multiple vitamins-minerals tab 1 tab by riley th daily Patient states she should be taking but has not been in ~1 month Tramadol 50 mg tab 50 mg by mouth every 6 hours as needed for pain 50-100 mg by mouth four times daily as needed for pain Zolpidem 10 mg tab 10 mg by mouth nightly as needed for sleep 10 mg by mouth nightly Medication added: Medication: Prior to Admission Sig: Patient taking differently as: Acetaminophen 500 mg tab 2 tabs by mouth every 6 hours as needed for pain Tobramycin 0.3% ophth lorelei 1 drop into left eye three times daily for 7 days Therapy started : 01/02/2020 Amoxicillin-clavulanate acid 500-125 mg tab 1 tab by mouth twice daily for 7 days Therapy started: 01/02/2020 Triamcinolone 0.1% cream 1 application topically to upper left eyelid twice daily for 7 day s Therapy started: 01/01/20 Metoprolol tartrate 50 mg tab 1 tab by mouth twice daily Not taking Patient states this was prescribed by Dr. Montemayor due to Exemestane causing high blood pres sure. Patient states she discontinued ~2 weeks ago because her blood pressure has been fine but this could be because Exemestane was held for a time. Citalopram 20 mg tab 20 mg by mouth daily Not taking Patient states prescribed when she was diagnosed with breast cancer. She took for a little while but she discontinued use of her own accord ~3 weeks ago (stating she forgot to take lindsey lf the time anyway) because she did not feel like she needed the medication anymore. She sta rachell she has more at home in case she feels she needs to restart. Recreational Substances, Tobacco & Alcohol use/frequency: X Tobacco: Smoke ~1 pack per month. 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 Alternate with 125 mcg tab 112 mc g every morning on Wednesday, Wednesday and Wednesday one month and Wednesday, Wednesday, and Wednesday the next month. December is Wednesday, Wednesday dose. Best possible CAD DESIGNER DRAFTER medication list after pharmacy review: PT REPORTED TAKING NOT TAKING Medication Sig Last Dose Dispense Doc. Gary acetaminophen (TYLENOL) 500 mg tablet Take 1,000 mg by mouth every 6 hours as needed for P ain. Taking Historical ProviderMD ALPRAZolam (XANAX) 0.25 mg tablet Take 0.125 mg by mouth 3 times daily as needed. For ken re anxiety Taking Zuleyka Martínez amoxicillin-clavulanate (AUGMENTIN) 500-125 mg per tablet Take 1 tablet by mouth 3 times d aily. For 7 days Taking Historical MD Gary Calcium 500 MG TABS Take 500 mg by mouth Daily. Not Taking Historical MD Gary citalopram (CELEXA) 20 mg tablet Take 20 mg by mouth Daily. Not Taking Historical Felicia hamilton MD exemestane (AROMASIN) 25 MG tablet Take 1 tablet by mouth Daily. Taking 90 tablet Milton Salazar MD ibuprofen (ADVIL, MOTRIN) 200 mg tablet Take 400-600 mg by mouth every 6 hours as needed f or Pain. Taking Historical MD Gary levothyroxine (SYNTHROID) 112 mcg tablet Take 112 mcg by mouth Every other day. Before giana akfast. Alternating with 125 mcg tabs Taking Differently Zuleyka Cota MD levothyroxine (SYNTHROID) 125 mcg tablet Take 125 mcg by mouth Every other day. Before giana akfast. Alternating with 112 mcg tabs Taking Differently Zuleyka Cota MD metoprolol tartrate (LOPRESSOR) 50 mg tablet Take 50 mg by mouth 2 times daily. Not Taking Historical ProviderMD Multiple Vitamins-Minerals (MULTIVITAMIN ADULT) TABS Take 1 tablet by mouth Daily. Not Wang ing Historical ProviderMD omeprazole (PRILOSEC) 20 mg capsule Take 20 mg by mouth every morning (before breakfast). Taking Historical ProviderMD ondansetron (ZOFRAN ODT) 4 mg disintegrating tablet Take 4 mg by mouth every 8 hours as ne eded for Nausea. Taking Historical ProviderMD tobramycin (TOBREX) 0.3% ophthalmic solution Place 1 drop into the left eye 3 times daily. For 7 days Taking Historical ProviderMD traMADol (ULTRAM) 50 mg tablet Take 50-100 mg by mouth 4 times daily as needed for Pain. T issa Historical ProviderMD triamcinolone (KENALOG) 0.1% cream Apply 1 Application topically 2 times daily. For 7 days to upper left eye lid Taking Historical ProviderMD zolpidem (AMBIEN) 10 mg tablet Take 10 mg by mouth nightly. Taking Historical ProviderJared Medication review performed and electronically signed by Heather Dang, Supervisor Print Line 01/05/2020 3:47 PM Reviewed by Nissa Mayers, PharmD 01/05/2020 5:06 PM eAnupam garrett MD - 01/05/2020 4:[address] [facility] Hospitalist Progress Note Olena Rider is a 59 y.o. female ASSESSMENT and PLAN: Active Hospital Problems Diagnosis Intracranial space-occupying lesion *Periorbital cellulitis of left eye Blepharitis of eyelid of left eye Primary malignant neoplasm of female breast Non-small cell cancer of right lung Resolved Hospital Problems No resolved problems to display. Left Periorbital cellulitis with anterior blepharitis - failed OP treatment with oral and topical abx - no sepsis - CT orbit showed left preseptal periorbital and malar soft tissue swelling/inflammation an d suspected small super abscess at the level of medial canthus, ED spoke with Ophthalmologis t honing machine operator production who recommended IV and topical abx - On ceftriaxone and doxycyline (for MRSA coverage) - Moxifloxacin eye drops TID - artifical tears TID - warm compresses TID -Considerable improvement on January 04, she states her eyelid swelling has decreased greatly, she no longer has pain with eye movement, and vision is normal -1 more day of IV antibiotics, likely discharge January 05 with po antibiotics if she continue s to improve Right sided intracranial lesion - incidental finding on CT, 1.3X 1.3 X 1.4 cm presumably enhancing lesion at the level of b gaby of right lateral ventricle which maybe intaventricular or subependymal -Discussed with Dr. Salazar, he will address with her in clinic as outpatient -Discussed this finding with her NSCLC (RLL, Stage IIIA, s/p VATS in 2016) Papillary Thyrroid Ca (s/p thyroidectomy, LN excision and radio iodine ablation in 10/2016) Right Breast Ca (s/p lumpectomy and radiation, currently on Aromasin, followed by Dr. Sofya garcai) - OP f/u with Dr. Salazar Hypothyroidism - cont Levothyroxine - TSH normal at 2.62 Smoking: -Advise cessation, nicotine patch as needed Disposition : Discharge home when stable Prophylaxis: Enoxaparin SUBJECTIVE: Reason for visit/Chief complaint: Left eyelid pain, swelling and redness Interval History: She states her left eyelid swelling has decreased greatly, it no longer h urts to move her eye, and vision is normal. Little pain at this point. Feels much better, would like to go home as soon as possible. VITALS: Temp: 36.9 C (98.4 F), Pulse: 77, Resp: 20, BP: 122/73, SpO2 97 % on room air Temp Min : 36 C (96.8 F) Max: 36.9 C (98.4 F) Intake/Output Summary (Last 24 hours) at 01/05/2020 1635 Last data filed at 01/05/2020 1501 Gross per 24 hour Intake 1400 ml Output 2350 ml Net -950 ml 14:LAST:1 83.9 kg (01/04/20 0945) Last: 84.1 kg (01/05/20 044) Difference: .2kg PHYSICAL EXAM: General: Alert, no distress, sitting up HEENT: Mild periorbital swelling and erythema with no paralysis or tenderness with eye move ment, no photophobia Neck: Supple Cardiovascular: Regular rate and rhythm Respiratory: CTA bilaterally Abdomen: Soft, NT Extremities: WWP Claudio catheter present: No DIAGNOSTIC STUDIES: Available data and images were reviewed personally. Significant results and findings are a ddressed here or in the Assessment and Plan. Recent Results (from the past 24 hour(s)) Basic Metabolic Panel Result Value Ref Range Na 139 136 - 145 mmol/L K 4.0 3.4 - 5.1 mmol/L Cl 106 98 - 107 mmol/L CO2 25 20 - 31 mmol/L Anion Gap 8 3 - 16 mmol/L Glucose 99 60 - 106 mg/dL BUN 12 9 - 23 mg/dL Creatinine 0.87 0.55 - 1.02 mg/dL eGFR if not >60 >=60 mL/min/1.73m2 Calcium 9.1 8.7 - 10.4 mg/dL BUN/Creatinine Ratio 13.8 CBC no Differential Result Value Ref Range WBC 6.2 4.0 - 11.0 K/uL RBC 4.23 3.70 - 5.20 M/uL Hemoglobin 12.9 11.5 - 16.0 g/dL Hematocrit 39.0 34.0 - 47.0 % MCV 92.2 83.0 - 101.0 fL MCH 30.5 28.0 - 35.0 pg MCHC 33.1 32.0 - 36.0 g/dL RDW-CV 12.5 <15.0 % RDW-SD 42.4 35.1 - 46.3 fL Platelet Count 283 140 - 440 K/uL MPV 10.1 6.5 - 12.4 fL % nRBC 0 0 - 2 per 100 WBCs Absolute nRBC 0.00 0.00 - 0.01 K/uL Magnesium Result Value Ref Range Magnesium 1.7 1.6 - 2.6 mg/dL Ct Orbit Sella Post Fossa Iac W Cont Result Date: 01/04/[address] ORBITS 01/04/2020 10:52 AM CLINICAL HISTORY: left periorbital swelling COMPAR NICOLE: None TECHNIQUE: Axial images are performed through the orbits following the uneventful intravenous administration of 85 cc Omnipaque 350 contrast. Coronal and sagittal reformati ons are also performed. FINDINGS: There is left preseptal periorbital and malar soft tissue swelling. A small, circumscribed collection of hypoattenuating material measuring up to 9 x 6 x 9 mm is noted superficially at the level of the left medial canthus and is suspicious f or abscess. No foreign body or soft tissue gas is evident. Minimal gas along the anterior superior margin of the left orbit is likely subpalpebral. The ocular globes, lacrimal gland s, extraocular muscles and optic nerves are symmetric and unremarkable. No conclusive post septal orbital abnormality is apparent. The superior ophthalmic veins are patent and symmet wade along with the other imaged vasculature, including the cavernous sinus. No osseous abno rmality is evident. The imaged paranasal sinuses are well aerated along with the middle ear cavities and imaged mastoid air cells. There is leftward nasal septal deviation and spurri ng. A lobulated, hyperattenuating and presumably enhancing structure demonstrating probable focal internal calcification is noted at the level of the mid to anterior body of the right lateral ventricle, measuring up to 1.3 x 1.3 x 1.4 cm, and is likely intraventricular or sub ependymal in location. There is no ventricular dilation and the imaged intracranial structu res are otherwise unremarkable. 1. LEFT PRESEPTAL PERIORBITAL AND MALAR SOFT [...] Godfrey MD Electronically signed: 01/04/2020 11:32 AM acetaminophen, 650 mg, Oral, Q4H PRN aluminum & magnesium hydroxide-simethicone, 30 mL, Oral, Q4H PRN bisacodyl, 10 mg, Rectal, Daily PRN cefTRIAXone, 2 g, Intravenous, Daily doxycycline, 100 mg, Intravenous, 2 times per day enoxaparin, 40 mg, Subcutaneous, Daily exemestane, 25 mg, Oral, Daily ketorolac, 15 mg, Intravenous, Q6H PRN lactobacillus GG-inulin, 1 capsule, Oral, BID levothyroxine, 125 mcg, Oral, QAM AC melatonin, 3 mg, Oral, Nightly PRN moxifloxacin, 1 drop, Left Eye, TID ondansetron, 4 mg, Oral, Q6H PRN pantoprazole, 40 mg, Oral, QAM AC polyethylene glycol, 17 g, Oral, Daily PRN polyvinyl alcohol, 1 drop, Left Eye, TID senna, 8.6 mg, Oral, BID PRN Total time of approximately 25 minutes was spent with the patient and/or patient's family, and/or on the patient's floor/unit, of which more than 50% was spent counseling and/or coord ination the patient's care as outlined above. Anupam Ball MD 01/05/2020 4:35 PM [facility] Ace Hull Nm dical Student - 01/05/2020 8:16 AM PSTFormatting of this note might be different from the o riginal. [facility] PMG Hospitalist Progress Note Olena Rider is a 59 y.o. female ASSESSMENT and PLAN: Active Hospital Problems Diagnosis *Periorbital cellulitis of left eye Blepharitis of eyelid of left eye Resolved Hospital Problems No resolved problems to display. -Left Periorbital cellulitis with anterior blepharitis - failed OP treatment with oral and topical abx - no e/o sepsis - CT orbit showed left preseptal periorbital and malar soft tissue swelling/inflammation an d suspected small super abscess at the level of medial canthus, ED spoke with Ophthalmologis t honing machine operator production who recommended IV and topical abx - Rocephin and Doxycyline (for MRSA coverage) - Moxifloxacin eye drops TID - artifical tears TID - warm compresses TID - Official Ophthal consult if no improvement - Brain lesion - incidental finding on CT, 1.3X 1.3 X 1.4 cm presumably enhancing lesion at the level of b gaby of right lateral ventricle which maybe intaventricular or subependymal - recommend MRI Brain W and WO as OP for further evaluation - NSCLC (RLL, Stage IIIA, s/p VATS in 2016) -Papillary Thyrroid Ca (s/p thyroidectomy, LN excision and radio iodine ablation in 10/2016 ) -Right Breast Ca (s/p lumpectomy and radiation, currently on Aromasin, followed by Dr. Luis M godwin) - OP f/u with Dr. Salazar - Hypothyroidism - cont Levothyroxine - f/u TSH SUBJECTIVE: Reason for visit/Chief complaint: Left Orbital cellulitis. Interval History: 59 y.o. female with a history of NSCLC (RLL, Stage IIIA, s/p VATS in 2016 ), Papillary Thyrroid Ca (s/p thyroidectomy, LN excision and radio iodine ablation in 6), Right Breast Ca (s/p lumpectomy and radiation, currently on Aromasin, followed by Dr. Sarath perkins) and Hypothyroidism who p/w left eye pain, swelling and redness. She now states th at the swelling has decreased significantly and she feels much better in terms of pain. She states she is ready to go home and be with her dog. ROS: Denies fever, fatigue, nausea, vomiting, abdominal pain, headache, dizziness, ear pain , changes in vision, changes in appetite, or changes in bowel and bladder habits. VITALS: Temp: 36.2 C (97.1 F), Pulse: 81, Resp: 20, BP: 125/84, SpO2 97 % on room air Temp Min : 36 C (96.8 F) Max: 36.3 C (97.3 F) Intake/Output Summary (Last 24 hours) at 01/05/2020 0816 Last data filed at 01/05/2020 0445 Gross per 24 hour Intake 610 ml Output 850 ml Net -240 ml First: 83.9 kg (01/04/20 0945)Last: 84.1 kg (01/05/20 0442)Difference: .2kg PHYSICAL EXAM: General: Well appearing middle aged woman sitting up in bed comfortably. HEENT: EO movements intact. Pupils equal and reactive to light. Denies blurred vision. No e rythema or swelling of the nose or cheek. Neck: Supple Cardiovascular: RRR no murmur. S1 and S2 audible. Respiratory: RLL lung Stridor Abdomen: Non-tender q4 with no palpable organomegaly. Extremities: No LE edema. 2+ radial and dorsalis pedis pulse bilaterally. Skin: Swelling of left eyelid with erythema Neurological: CN 2-12 tested and intact. No focal deficits. Claudio catheter present:No DIAGNOSTIC STUDIES: Available data and images were reviewed personally. Significant results and findings are a ddressed here or in the Assessment and Plan. Recent Results (from the past 24 hour(s)) CBC with Differential Result Value Ref Range WBC 7.1 4.0 - 11.0 K/uL RBC 4.67 3.70 - 5.20 M/uL Hemoglobin 14.2 11.5 - 16.0 g/dL Hematocrit 42.7 34.0 - 47.0 % MCV 91.4 83.0 - 101.0 fL MCH 30.4 28.0 - 35.0 pg MCHC 33.3 32.0 - 36.0 g/dL RDW-CV 12.6 <15.0 % RDW-SD 41.9 35.1 - 46.3 fL Platelet Count 322 140 - 440 K/uL MPV 9.8 6.5 - 12.4 fL % Neutrophils 57.5 45.0 - 82.0 % % Lymphocytes 31.2 20.0 - 45.0 % % Monocytes 6.7 4.0 - 12.0 % % Eosinophils 3.4 0.0 - 5.0 % % Basophils 0.8 0.0 - 1.0 % % Immature Granulocytes 0.4 0.0 - 0.4 % Absolute Neutrophils 4.09 1.80 - 8.50 K/uL Absolute Lymphocytes 2.22 0.60 - 3.20 K/uL Absolute Monocytes 0.48 0.00 - 1.00 K/uL Absolute Eosinophils 0.24 0.00 - 0.40 K/uL Absolute Basophils 0.06 0.00 - 0.10 K/uL Absolute Immature Granulocytes 0.03 0.00 - 0.03 K/uL % nRBC 0 0 - 2 per 100 WBCs Absolute nRBC 0.00 0.00 - 0.01 K/uL Comprehensive Metabolic Panel Result Value Ref Range Na 139 136 - 145 mmol/L K 4.2 3.4 - 5.1 mmol/L Cl 105 98 - 107 mmol/L CO2 29 20 - 31 mmol/L Anion Gap 5 3 - 16 mmol/L Glucose 100 60 - 106 mg/dL BUN 10 9 - 23 mg/dL Creatinine 0.86 0.55 - 1.02 mg/dL eGFR if not >60 >=60 mL/min/1.73m2 Calcium 9.6 8.7 - 10.4 mg/dL Albumin 4.5 3.2 - 4.8 g/dL Bilirubin Total 0.3 0.3 - 1.2 mg/dL Total Protein 7.1 5.7 - 8.2 g/dL AST 15 0 - 34 U/L ALT 9 (L) 10 - 49 U/L Alkaline Phosphatase 88 46 - 116 U/L Globulin 2.6 2.1 - 3.8 g/dL Albumin/Globulin Ratio 1.7 0.8 - 1.9 BUN/Creatinine Ratio 11.6 TSH Result Value Ref Range TSH 2.62 0.55 - 4.78 uIU/mL Culture, Blood Result Value Ref Range Culture No growth: Monitored continually by instrument for 5 days Culture, Blood Result Value Ref Range Culture No growth: Monitored continually by instrument for 5 days Basic Metabolic Panel Result Value Ref Range Na 139 136 - 145 mmol/L K 4.0 3.4 - 5.1 mmol/L Cl 106 98 - 107 mmol/L CO2 25 20 - 31 mmol/L Anion Gap 8 3 - 16 mmol/L Glucose 99 60 - 106 mg/dL BUN 12 9 - 23 mg/dL Creatinine 0.87 0.55 - 1.02 mg/dL eGFR if not >60 >=60 mL/min/1.73m2 Calcium 9.1 8.7 - 10.4 mg/dL BUN/Creatinine Ratio 13.8 CBC no Differential Result Value Ref Range WBC 6.2 4.0 - 11.0 K/uL RBC 4.23 3.70 - 5.20 M/uL Hemoglobin 12.9 11.5 - 16.0 g/dL Hematocrit 39.0 34.0 - 47.0 % MCV 92.2 83.0 - 101.0 fL MCH 30.5 28.0 - 35.0 pg MCHC 33.1 32.0 - 36.0 g/dL RDW-CV 12.5 <15.0 % RDW-SD 42.4 35.1 - 46.3 fL Platelet Count 283 140 - 440 K/uL MPV 10.1 6.5 - 12.4 fL % nRBC 0 0 - 2 per 100 WBCs Absolute nRBC 0.00 0.00 - 0.01 K/uL Magnesium Result Value Ref Range Magnesium 1.7 1.6 - 2.6 mg/dL Ct Orbit Sella Post Fossa Iac W Cont Result Date: 01/04/[address] ORBITS 01/04/2020 10:52 AM CLINICAL HISTORY: left periorbital swelling COMPAR NICOLE: None TECHNIQUE: Axial images are performed through the orbits following the uneventful intravenous administration of 85 cc Omnipaque 350 contrast. Coronal and sagittal reformati ons are also performed. FINDINGS: There is left preseptal periorbital and malar soft tissue swelling. A small, circumscribed collection of hypoattenuating material measuring up to 9 x 6 x 9 mm is noted superficially at the level of the left medial canthus and is suspicious f or abscess. No foreign body or soft tissue gas is evident. Minimal gas along the anterior superior margin of the left orbit is likely subpalpebral. The ocular globes, lacrimal gland s, extraocular muscles and optic nerves are symmetric and unremarkable. No conclusive post septal orbital abnormality is apparent. The superior ophthalmic veins are patent and symmet wade along with the other imaged vasculature, including the cavernous sinus. No osseous abno rmality is evident. The imaged paranasal sinuses are well aerated along with the middle ear cavities and imaged mastoid air cells. There is leftward nasal septal deviation and spurri ng. A lobulated, hyperattenuating and presumably enhancing structure demonstrating probable focal internal calcification is noted at the level of the mid to anterior body of the right lateral ventricle, measuring up to 1.3 x 1.3 x 1.4 cm, and is likely intraventricular or sub ependymal in location. There is no ventricular dilation and the imaged intracranial structu res are otherwise unremarkable. 1. LEFT PRESEPTAL PERIORBITAL AND MALAR SOFT [...] Godfrey MD Electronically signed: 01/04/2020 11:32 AM acetaminophen, 650 mg, Oral, Q4H PRN aluminum & magnesium hydroxide-simethicone, 30 mL, Oral, Q4H PRN bisacodyl, 10 mg, Rectal, Daily PRN cefTRIAXone, 2 g, Intravenous, Daily doxycycline, 100 mg, Intravenous, 2 times per day enoxaparin, 40 mg, Subcutaneous, Daily exemestane, 25 mg, Oral, Daily ketorolac, 15 mg, Intravenous, Q6H PRN lactobacillus GG-inulin, 1 capsule, Oral, BID levothyroxine, 125 mcg, Oral, QAM AC melatonin, 3 mg, Oral, Nightly PRN moxifloxacin, 1 drop, Left Eye, TID ondansetron, 4 mg, Oral, Q6H PRN pantoprazole, 40 mg, Oral, QAM AC polyethylene glycol, 17 g, Oral, Daily PRN polyvinyl alcohol, 1 drop, Left Eye, TID senna, 8.6 mg, Oral, BID PRN Total time of approximately 15 minutes was spent with the patient and/or patient's family, and/or on the patient's floor/unit, of which more than 50% was spent counseling and/or coord ination the patient's care as outlined above. Ace Jensen, Medical Student 01/05/2020 8:16 AM [facility] Nissa Mcknight, Ph armD - 01/04/2020 4:26 PM PSTPharmacy Services Probiotic protocol initiated for qualifying patients if the patient has been on antibiotics for <72 hours and after inclusion/exclusion criteria assessed. If the patient has been on a ntibiotics for >72 hours probiotics will not be initiated, despite meeting inclusion/exclusi on criteria. Inclusion criteria: Patient is Age 1818 years old or older Yes [x] No [] Exclusion criteria: Yes [] No [x] Surgical antibiotic prophylaxis Yes [] No [x] On Vancomycin IV monotherapy Yes [] No [x] Active antibiotics exclusively for CDI treatment Yes [] No [x] Acute pancreatitis Yes [] No [x] Immunocompromised Yes [] No [x] (Neutropenia with ANC <1000, HIV with CD4 count <200,C hemotherapy or radiation, Solid organ transplant, Active hematologic malignancy) Comment: culterelle 1 cap po bid Plan: 1. Initiate probiotics per protocol; smartphrase ".rxprobiotics" added to admin instruction s on probiotic order; [x] Check when completed 2. Enter stop time for 5 days after antibiotics completed; [] Check when completed 3. AVS updated with ".rxprobioticdischarge"; [x] Check when completed Nissa Mayers PharmD 01/04/2020 4:27 PM documented in this encounter H&P Notes Tamica Pete MD - 01/04/2020 1:13 PM PSTFormatting of this note might be differen t from the original. [place] HOSPITALIST HISTORY & PHYSICAL Patient: Olena Rider : 1960: Age: 59 y.o. MedRec: [id number] Admission date: 01/04/2020 Hospital day # : 0 Physician author: Tamica Pete MD Today: 01/04/2020 CHIEF COMPLAINT: Left eye pain, swelling and redness HISTORY OF PRESENT ILLNESS: This is a 59 y.o. female with a history of NSCLC (RLL, Stage IIIA, s/p VATS in 2016), Papil ronda Thyrroid Ca (s/p thyroidectomy, LN excision and radio iodine ablation in 10/2016), Rig ht Breast Ca (s/p lumpectomy and radiation, currently on Aromasin, followed by Dr. Kamla mckeon) and Hypothyroidism who p/w left eye pain, swelling and redness. Patient reports left eye started hurting on 12/29 and then next day she noticed swelling and redness of the left upper eyelid and crusting. She saw an medical technician assistant in [facility] on 12/31 who prescribed her Aug mentin and Tobramycin drops. She had worsening her symptoms despite oral and topical abx bec ause of which her medical technician assistant told her to go to the ER. Patient reports mildly blurred v ision in the left eye. She has pain with left eye movement. She reports watery discharge fro m left eye. She has a lot crusting at the edge of left eyelids. She reports mild swelling an d erythema of left periorbital area but no conjunctival erythema. She has been having interm ittent fevers for the past 2 days (Tmax 101.5). In the ER, afebrile, vitals stable, no leuko cytosis, CT orbit showed left preseptal periorbital and malar soft tissue swelling/inflammat ion and suspected small super abscess at the level of medial canthus, ED spoke with Ophthalm ologist honing machine operator production who recommended IV and Topical abx. PAST MEDICAL and SURGICAL HISTORY: Past Medical History: Diagnosis Date Anxiety Breast [...] Location: [facility] COLECTOMY HYSTERECTOMY THYROIDECTOMY FAMILY HISTORY: family history includes Cancer in her mother, paternal aunt, and sister. SOCIAL HISTORY: reports that she has been smoking cigarettes. She has a 15.00 pack-year smoking history. S he has never used smokeless tobacco. She reports current alcohol use. She reports that she d oes not use drugs. REVIEW OF SYSTEMS: A complete 10 system ROS was done, negative except HPI HOME MEDICATIONS: PT REPORTED TAKING NOT TAKING Medication Sig Last Dose Dispense Doc. Provider ALPRAZolam (XANAX) 0.5 mg tablet Take 0.5 mg by mouth 3 times daily as needed for Anxiety. Historical Provider, calcium carbonate (TUMS) 500 mg chewable tablet Take 1 tablet by mouth as needed. Histor ical Provider, exemestane (AROMASIN) 25 MG tablet Take 1 tablet by mouth Daily. Taking 90 tablet Milton Salazar MD ibuprofen (ADVIL,MOTRIN) 600 MG tablet Take 600 mg by mouth every 6 hours as needed. His torical Provider, levothyroxine (SYNTHROID) 112 mcg tablet TAKE ONE TABLET BY MOUTH EVERY OTHER DAY Taking Historical Provider, levothyroxine (SYNTHROID) 125 mcg tablet Take 125 mcg by mouth every morning (before break fast). Taking Historical ProviderMD Multiple Vitamins-Minerals (MULTIVITAMIN ADULT PO) Take by mouth Daily. Historical Prov iderMD omeprazole (PRILOSEC) 20 mg capsule Take 20 mg by mouth every morning (before breakfast). Taking Historical ProviderMD ondansetron (ZOFRAN ODT) 4 mg disintegrating tablet Take 4 mg by mouth every 8 hours as ne eded for Nausea. Historical Provider, traMADol (ULTRAM) 50 mg tablet Take 50 mg by mouth every 6 hours as needed for Pain. His torical Provider, zolpidem (AMBIEN) 10 mg tablet Take 10 mg by mouth nightly as needed for Sleep. Taking Hi storical ProviderMD ALLERGIES: Allergies Allergen Reactions Morphine Anaphylaxis and Other (See Comments) Morphine And Related Other (See Comments) "unknown reaction - trouble breathing after hysterectomy" VITAL SIGNS: Temp: 36.2 C (97.1 F), Pulse: 89, Resp: 16, BP: 137/71, SpO2 99 % on room air at flow r ate L/min Temp Min: 36.2 C (97.1 F) Max: 36.2 C (97.1 F) Weight: 83.9 kg (185 lb) PHYSICAL EXAMINATION: GA: NAD, AAOX3 HEENT: marked swelling/erythema/ttp of left upper eye lid with crusting, mild left periorbi lili swelling and erythema, on conjunctival erythema Neck: no JVD Cardiac: rrr, no m/g/r Lung: CTAB, normal respiratory effort Abdomen: soft, nt/nd, nabs Ext:no c/c/e Pych: normal mood and affect Neuro: 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, no focal weakness or sensory deficits DIAGNOSTIC STUDIES: Lab results last 24 hours Recent Results (from the past 24 hour(s)) CBC with Differential Collection Time: 01/04/20 10:17 AM Result Value Ref Range WBC 7.1 4.0 - 11.0 K/uL RBC 4.67 3.70 - 5.20 M/uL Hemoglobin 14.2 11.5 - 16.0 g/dL Hematocrit 42.7 34.0 - 47.0 % MCV 91.4 83.0 - 101.0 fL MCH 30.4 28.0 - 35.0 pg MCHC 33.3 32.0 - 36.0 g/dL RDW-CV 12.6 <15.0 % RDW-SD 41.9 35.1 - 46.3 fL Platelet Count 322 140 - 440 K/uL MPV 9.8 6.5 - 12.4 fL % Neutrophils 57.5 45.0 - 82.0 % % Lymphocytes 31.2 20.0 - 45.0 % % Monocytes 6.7 4.0 - 12.0 % % Eosinophils 3.4 0.0 - 5.0 % % Basophils 0.8 0.0 - 1.0 % % Immature Granulocytes 0.4 0.0 - 0.4 % Absolute Neutrophils 4.09 1.80 - 8.50 K/uL Absolute Lymphocytes 2.22 0.60 - 3.20 K/uL Absolute Monocytes 0.48 0.00 - 1.00 K/uL Absolute Eosinophils 0.24 0.00 - 0.40 K/uL Absolute Basophils 0.06 0.00 - 0.10 K/uL Absolute Immature Granulocytes 0.03 0.00 - 0.03 K/uL % nRBC 0 0 - 2 per 100 WBCs Absolute nRBC 0.00 0.00 - 0.01 K/uL Comprehensive Metabolic Panel Collection Time: 01/04/20 10:17 AM Result Value Ref Range Na 139 136 - 145 mmol/L K 4.2 3.4 - 5.1 mmol/L Cl 105 98 - 107 mmol/L CO2 29 20 - 31 mmol/L Anion Gap 5 3 - 16 mmol/L Glucose 100 60 - 106 mg/dL BUN 10 9 - 23 mg/dL Creatinine 0.86 0.55 - 1.02 mg/dL eGFR if not >60 >=60 mL/min/1.73m2 Calcium 9.6 8.7 - 10.4 mg/dL Albumin 4.5 3.2 - 4.8 g/dL Bilirubin Total 0.3 0.3 - 1.2 mg/dL Total Protein 7.1 5.7 - 8.2 g/dL AST 15 0 - 34 U/L ALT 9 (L) 10 - 49 U/L Alkaline Phosphatase 88 46 - 116 U/L Globulin 2.6 2.1 - 3.8 g/dL Albumin/Globulin Ratio 1.7 0.8 - 1.9 BUN/Creatinine Ratio 11.6 Micro results Microbiology Results (72 hrs) Procedure Component Value Units Date/Time Culture, Blood [[id number]] Collected: 01/04/20 1242 Order Status: Sent Lab Status: In process Updated: 01/04/20 1246 Specimen: Peripheral Blood Culture, Blood [[id number]] Collected: 01/04/20 1239 Order Status: Sent Lab Status: In process Updated: 01/04/20 1241 Specimen: Peripheral Blood Radiology results Ct Orbit Sella Post Fossa Iac W Cont Result Date: 01/04/[address] ORBITS 01/04/2020 10:52 AM CLINICAL HISTORY: left periorbital swelling COMPAR NICOLE: None TECHNIQUE: Axial images are performed through the orbits following the uneventful intravenous administration of 85 cc Omnipaque 350 contrast. Coronal and sagittal reformati ons are also performed. FINDINGS: There is left preseptal periorbital and malar soft tissue swelling. A small, circumscribed collection of hypoattenuating material measuring up to 9 x 6 x 9 mm is noted superficially at the level of the left medial canthus and is suspicious f or abscess. No foreign body or soft tissue gas is evident. Minimal gas along the anterior superior margin of the left orbit is likely subpalpebral. The ocular globes, lacrimal gland s, extraocular muscles and optic nerves are symmetric and unremarkable. No conclusive post septal orbital abnormality is apparent. The superior ophthalmic veins are patent and symmet wade along with the other imaged vasculature, including the cavernous sinus. No osseous abno rmality is evident. The imaged paranasal sinuses are well aerated along with the middle ear cavities and imaged mastoid air cells. There is leftward nasal septal deviation and spurri ng. A lobulated, hyperattenuating and presumably enhancing structure demonstrating probable focal internal calcification is noted at the level of the mid to anterior body of the right lateral ventricle, measuring up to 1.3 x 1.3 x 1.4 cm, and is likely intraventricular or sub ependymal in location. There is no ventricular dilation and the imaged intracranial structu res are otherwise unremarkable. 1. LEFT PRESEPTAL PERIORBITAL AND MALAR SOFT [...] Godfrey MD Electronically signed: 01/04/2020 11:32 AM I reviewed imaging EKG Results (I reviewed EKG) I reviewed and summarized old records ASSESSMENT: Principal Problem: Periorbital cellulitis of left eye Active Hospital Problems Diagnosis Periorbital cellulitis of left eye Blepharitis of eyelid of left eye Resolved Hospital Problems No resolved problems to display. Code Status Full Medical Decision Maker Self DVT Prophylaxis Lovenox PLAN: # Left Periorbital cellulitis with anterior blepharitis - failed OP treatment with oral and topical abx - no e/o sepsis - CT orbit showed left preseptal periorbital and malar soft tissue swelling/inflammation an d suspected small super abscess at the level of medial canthus, ED spoke with Ophthalmologis t honing machine operator production who recommended IV and topical abx - started Rocephin and Doxycyline (for MRSA coverage) - ordered Moxifloxacin eye drops TID - artifical tears TID - warm compresses TID - consider official Ophthal consult if no improvement # Brain lesion - incidental finding on CT, 1.3X 1.3 X 1.4 cm presumably enhancing lesion at the level of b gaby of right lateral ventricle which maybe intaventricular or subependymal - recommend MRI Brain W and WO as OP for further evaluation # NSCLC (RLL, Stage IIIA, s/p VATS in 2017) # Papillary Thyrroid Ca (s/p thyroidectomy, LN excision and radio iodine ablation in 6) # Right Breast Ca (s/p lumpectomy and radiation, currently on Aromasin, followed by Dr. Rebecca campos) - OP f/u with Dr. Salazar # Hypothyroidism - cont Levothyroxine - f/u TSH CMS Documentation I expect this patient will be hospitalized for greater than 2-midnights and expect the post -hospital plan to be determined once additional information is obtained. Electronically signed by: Tamica Pete MD 01/04/2020 1:[address] [facility] Portions of this chart may have been created with [employer] voice recognition software. Occasi onal wrong-word or sound-alike substitutions may have occurred due to the inherent cervantes itations of voice recognition software. Please read the chart carefully and recognize, using context, where these substitutions have occurred documented in th is encounter ED Notes Rebekah Hollis RN - 01/04/2020 9:47 AM PSTPt c/o left eye redness, swelling and pain. States that her symptoms started on Wednesday was placed on antibiotics but symptoms became a l ot worse this morning. Was sent by her medical technician assistant today. rinivas Blakely MD - 01/04/2020 9:41 AM PSTFormatt ing of this note might be different from the original. [facility] Olena Rider Emergency Department Encounter Note [address] [place] [id number] PCP:Zuleyka Martínez [phone] CHIEF COMPLAINT: Chief Complaint Patient presents with Facial Swelling ED Room: ED14/ED14 HPI Olena Rider is a 59 y.o. female who presents to the Emergency Department with left-sided eye pain and swelling. She has a history of lung cancer. She is not currently on chemother apy. She reports that she had a fever up to 101 earlier today but did take Tylenol as well. She is afebrile here. She reports that the swelling started on Wednesday. She has had no di scharge. She has taken a total of 4 doses of Augmentin. Denies any blurred vision or doubl e vision. She was evaluated by aircraft tool maker earlier today who recommend that she come in to be evaluated. 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 calcium carbonate (TUMS) 500 mg chewable tablet Take 1 tablet by mouth as needed. exemestane (AROMASIN) 25 MG tablet Take 1 tablet by mouth Daily. ibuprofen (ADVIL,MOTRIN) 600 MG tablet Take 600 [...] by mouth nightly as needed for Sleep. ALLERGIES Allergies Allergen Reactions Morphine Anaphylaxis and Other (See Comments) Morphine And Related Other (See Comments) "unknown reaction - trouble breathing after hysterectomy" FAMILY AND SOCIAL HISTORY Family History Problem Relation Age of Onset Cancer Mother Breast dx at age 53 Cancer Sister Breast dx at age 54 Cancer Paternal Aunt breast cancer dx in her 40's Social History Socioeconomic History Marital status: Single Spouse name: Not on file Number of children: Not on file Years of education: Not on file Highest education level: Not on file Tobacco Use Smoking status: Current Some Day Smoker Packs/day: 0.50 Years: 30.00 Pack years: 15.00 Types: Cigarettes Smokeless tobacco: Never Used Substance and Sexual Activity Alcohol use: Yes Comment: once a month Drug use: No REVIEW OF SYSTEMS As in history of present illness. A 10 system review was otherwise negative. PHYSICAL EXAM VITAL SIGNS: (first vital signs):Temp: 36.2 C (97.1 F) Pulse: 89 Resp: 16 SpO2: 99 % BP : 137/71 Body mass index is 28.13 kg/m. Constitutional: female patient, no acute distress HEENT: Atraumatic, PERRL, Oropharynx benign. Left periorbital swelling small amount of fl uctuance over the medial aspect of the left upper eyelid, no active drainage Neck: Supple with full range of motion. Respiratory: Good air movement bilaterally. Cardiovascular: Normal S1 S2 Abdomen: Soft, nontender, nondistended Extremities: Nontender. Skin: Warm, Dry, No rashes Neurologic: Alert & oriented. Psychiatric: Normal mood, affect and judgement. EKG 12-lead EKG shows LABS Results for orders placed or performed during the hospital encounter of 01/04/20 CBC with Differential Result Value Ref Range WBC 7.1 4.0 - 11.0 K/uL RBC 4.67 3.70 - 5.20 M/uL Hemoglobin 14.2 11.5 - 16.0 g/dL Hematocrit 42.7 34.0 - 47.0 % MCV 91.4 83.0 - 101.0 fL MCH 30.4 28.0 - 35.0 pg MCHC 33.3 32.0 - 36.0 g/dL RDW-CV 12.6 <15.0 % RDW-SD 41.9 35.1 - 46.3 fL Platelet Count 322 140 - 440 K/uL MPV 9.8 6.5 - 12.4 fL % Neutrophils 57.5 45.0 - 82.0 % % Lymphocytes 31.2 20.0 - 45.0 % % Monocytes 6.7 4.0 - 12.0 % % Eosinophils 3.4 0.0 - 5.0 % % Basophils 0.8 0.0 - 1.0 % % Immature Granulocytes 0.4 0.0 - 0.4 % Absolute Neutrophils 4.09 1.80 - 8.50 K/uL Absolute Lymphocytes 2.22 0.60 - 3.20 K/uL Absolute Monocytes 0.48 0.00 - 1.00 K/uL Absolute Eosinophils 0.24 0.00 - 0.40 K/uL Absolute Basophils 0.06 0.00 - 0.10 K/uL Absolute Immature Granulocytes 0.03 0.00 - 0.03 K/uL % nRBC 0 0 - 2 per 100 WBCs Absolute nRBC 0.00 0.00 - 0.01 K/uL Comprehensive Metabolic Panel Result Value Ref Range Na 139 136 - 145 mmol/L K 4.2 3.4 - 5.1 mmol/L Cl 105 98 - 107 mmol/L CO2 29 20 - 31 mmol/L Anion Gap 5 3 - 16 mmol/L Glucose 100 60 - 106 mg/dL BUN 10 9 - 23 mg/dL Creatinine 0.86 0.55 - 1.02 mg/dL eGFR if not >60 >=60 mL/min/1.73m2 Calcium 9.6 8.7 - 10.4 mg/dL Albumin 4.5 3.2 - 4.8 g/dL Bilirubin Total 0.3 0.3 - 1.2 mg/dL Total Protein 7.1 5.7 - 8.2 g/dL AST 15 0 - 34 U/L ALT 9 (L) 10 - 49 U/L Alkaline Phosphatase 88 46 - 116 U/L Globulin 2.6 2.1 - 3.8 g/dL Albumin/Globulin Ratio 1.7 0.8 - 1.9 BUN/Creatinine Ratio 11.6 IMAGING STUDIES (X-Rays interpreted by ED Physician) ENHANCED CT ORBITS 01/04/2020 10:52 AM CLINICAL HISTORY: left periorbital swelling COMPARISON: None TECHNIQUE: Axial images are performed through the orbits following the uneventful intravenous administration of 85 cc Omnipaque 350 contrast. Coronal and sagittal reformations are also performed. FINDINGS: There is left preseptal periorbital and malar soft tissue swelling. A small, circumscribed collection of hypoattenuating material measuring up to 9 x 6 x 9 mm is noted superficially at the level of the left medial canthus and is suspicious for abscess. No foreign body or soft tissue gas is evident. Minimal gas along the anterior superior margin of the left orbit is likely subpalpebral. The ocular globes, lacrimal glands, extraocular muscles and optic nerves are symmetric and unremarkable. No conclusive post septal orbital abnormality is apparent. The superior ophthalmic veins are patent and symmetric along with the other imaged vasculature, including the cavernous sinus. No osseous abnormality is evident. The imaged paranasal sinuses are well aerated along with the middle ear cavities and imaged mastoid air cells. There is leftward nasal septal deviation and spurring. A lobulated, hyperattenuating and presumably enhancing structure demonstrating probable focal internal calcification is noted at the level of the mid to anterior body of the right lateral ventricle, measuring up to 1.3 x 1.3 x 1.4 cm, and is likely intraventricular or subependymal in location. There is no ventricular dilation and the imaged intracranial structures are otherwise unremarkable. IMPRESSION: 1. LEFT PRESEPTAL PERIORBITAL AND MALAR SOFT TISSUE SWELLING/INFLAMMATION AND SUSPECTED SMALL SUPERFICIAL ABSCESS AT THE LEVEL OF THE MEDIAL CANTHUS. NO CONCLUSIVE POST SEPTAL INVOLVEMENT IS APPARENT. 2. LOBULATED, PRESUMABLY ENHANCING LESION AT THE LEVEL OF THE BODY OF THE RIGHT LATERAL VENTRICLE WHICH MAY BE INTRAVENTRICULAR OR SUBEPENDYMAL. FOLLOW-UP UNENHANCED AND ENHANCED BRAIN MRI SHOULD BE STRONGLY CONSIDERED FOR FURTHER CHARACTERIZATION. Images were provided for interpretation on January 04, 2020 at 1100 hours. Results were finalized at 1130 hours. Dictated and Signed by: Hugo Godfrey MD Electronically signed: 01/04/2020 11:32 AM ED COURSE & MEDICAL DECISION MAKING Pertinent Labs & Imaging studies were reviewed along with EMS notes and [facility] record s if applicable. (See chart for details) Medications and Allergy list reviewed. Nurses note and old records were reviewed The patient was seen and examined, Patient is a 59-year-old female who presents with left periorbital swelling. They are conc erned that she had orbital cellulitis so she was brought in for further evaluation. CT scan was consistent with preseptal cellulitis with a developing abscess. I discussed the case w ith Dr. Villafana of ophthalmology. He recommended IV and topical eyedrops. Will do warm comp resses as well. She will be started on ceftriaxone and vancomycin. She essentially failed outpatient therapy after taking 4 dose of Augmentin. Blood cultures were obtained. No acut e changes here in the emergency department. Last Set of Vital Signs: Temp: 36.2 C (97.1 F) Pulse: 95 Resp: 16 SpO2: 100 % BP: (!) 1 FINAL IMPRESSION ICD-10-CM ICD-9-CM 1. Preseptal cellulitisAcute L03.213 373.13 Srinivas Blakely MD 01/04/20 1326 documented in this encou nter Miscellaneous Notes Plan of Care - LorenNeetaYoselin R - 01/05/2020 11:37 AM PSTDischarge Planning: This CM Asst spoke with Olena at her bedside regarding discharge plans. Olena reports living in her home in [place] with her 26 year old daughter Jennifer and her four dogs. She reports her son rents the basement apartment. Olena reports 2 steps to enter the home. No stairs inside the home. Her bathroom has a t ub shower. Olena is independent with her ADL's. She does not use any DME. She drives. Her PCP is Zuleyka Martínez. She uses the [facility] in [place]. 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 She would like to discharge home with IV abx if necessary with [place]. Olena will transport herself home when stable for discharge. Dispo: Home at discharge with possible IV abx Electronically signed by: Yoselin Pimentel 01/05/2020 11:42 AM lan of Duglas Collins RN - 01/05/2020 4:36 AM PSTMicbang had no falls or injuries this shift. Has Left eye periorbital swelling. C/o mild blurred vision in Left eye. Receiving Toradol and tylenol for pain. Independent in room. VS have been stable. lan Cathy Carrera RN - 01/04/2020 6:56 PM PS TPt. admitted for observation for L periorbital cellulitis. A&O x4. Toradol given for pain. Remained free from falls. Calls appropriately. Independent in room. IV abx. given . Analilia chan signed by Cathy Franco RN at 01/04/2020 7:02 PM PSTdocumented in this encounter Plan of Treatment [...] [place] | | | | | | [id number] | | | | | | | | +--------+ + + + + | 08/12/ | Hospital | Infusion Therapy | [facility] | | | 2019 | Encounter | | E, [address] | | | | | | [place] | | | | | | [address] | | | | | | | | +--------+ + + + + | 08/12/ | Appointment | Oncology | Lionel Benson | | | 2019 | | | [address] | | | | | | [address] | | | | | | [place] [address] | | | | | | [phone] | | | | | | | | +--------+ + + + + | 08/19/ | Appointment | Oncology | [facility] | | | 2019 | | | E, [address] | | | | | | [place] | | | | | | [id number] | | | | | | | | +--------+ + + + + | 08/19/ | Appointment | Infusion Therapy | [facility] | | | 2019 | | | E, [address] | | | | | | [place] | | | | | | [address] | | | | | | | [...] [place] | | | | | | [id number] | | | | | | | [...] [place] | | | | | | [address] | | | | | | | | +--------+ + + + + | 09/16/ | Appointment | Infusion Therapy | | | | 2019 | | | | | +--------+ + + + + | 09/23/ | Office | Oncology | [facility] | | | 2019 | Visit | | MD [address] | | | | | | [place] | | | | | | [address] | | | | | | | | +--------+ + + + + | 09/23/ | Appointment | Infusion Therapy | | | | 2019 | | | | | +--------+ + + + + | 11/22/ | Appointment | Radiation Oncology | FabianoSusie fry | | | 2020 | | | MD [address] | | | | | | [place] | | | | | | [id number] | | | | | | | | +--------+ + + + + documented as of this encounter Procedures + +--------+ + + + | Procedure Name | Priori | Date/Time | Associated Diagnosis | Comments | | | ty | | | | + +--------+ + + + | CBC NO DIFFERENTIAL | Routin | 01/05/2020 | | Results for this | | | e | 4:39 AM | | procedure are in the | | | | PST | | results section. | + +--------+ + + + | MAGNESIUM | Routin | 01/05/2020 | | Results for this | | | e | 4:39 AM | | procedure are in the | | | | PST | | results section. | + +--------+ + + + | BASIC METABOLIC | Routin | 01/05/2020 | | Results for this | | PANEL | e | 4:39 AM | | procedure are in the | | | | PST | | results section. | + +--------+ + + + | CULTURE, BLOOD | STAT | 01/04/2020 | | Results for this | | | | 12:42 PM | | procedure are in the | | | | PST | | results section. | + +--------+ + + + | CULTURE, BLOOD | STAT | 01/04/2020 | | Results for this | | | | 12:39 PM | | procedure are in the | | | | PST | | results section. | + +--------+ + + + | CT ORBIT SELLA POST | STAT | 01/04/2020 | | Results for this | | FOSSA IAC W CONTRAST | | 10:54 AM | | procedure are in the | | | | PST | | results section. | + +--------+ + + + | CBC WITH | STAT | 01/04/2020 | | Results for this | | DIFFERENTIAL | | 10:17 AM | | procedure are in the | | | | PST | | results section. | + +--------+ + + + | TSH | Add-On | 01/04/2020 | | Results for this | | | | 10:17 AM | | procedure are in the | | | | PST | | results section. | + +--------+ + + + | COMPREHENSIVE | STAT | 01/04/2020 | | Results for this | | METABOLIC PANEL | | 10:17 AM | | procedure are in the | | | | PST | | results section. | + +--------+ + + + documented in this encounter Results Magnesium (01/05/2020 4:39 AM PST) + +-------+ + + + | Component | Value | Ref Range | Performed | Pathologist | | | | | At | Signature | + +-------+ + + + | Magnesium | 1.7 | 1.6 - 2.6 mg/dL | [facility] | | | | [...] [address] | [place] | [phone] | | [facility] | | [address] | | | - LABORATORY | | | | + + + + + CBC no Differential (01/05/2020 4:39 AM PST) + +-------+ + + + | Component | Value | Ref Range | Performed | Pathologist | | | | | At | Signature | + +-------+ + + + | White Blood | 6.2 | 4.0 - 11.0 K/uL | [facility] | | | Cells | | | [facility] | | | | | | [facility] | | | | | | C[facility] - | | | | | | LABORATORY | | + +-------+ + + + | Red Blood | 4.23 | 3.70 - 5.20 | [facility] | | | Cells | | M/uL | [facility] | | | | | | [facility] | | | | | | C[facility] - | | | | | | LABORATORY | | + +-------+ + + + | Hemoglobin | 12.9 | 11.5 - 16.0 | [facility] | | | | | g/dL | [facility] | | | | | | [facility] | | | | | | CENTER - | | | | | | LABORATORY | | + +-------+ + + + | Hematocrit | 39.0 | 34.0 - 47.0 % | [facility] | | | | | | [facility] | | | | | | [facility] | | | | | | C[facility] - | | | | | | LABORATORY | | + +-------+ + + + | MCV | 92.2 | 83.0 - 101.0 fL | [facility] [...] +-------+ + + + | MCHC | 33.1 | 32.0 - 36.0 | [facility] | [...] +-------+ + + + | RDW-SD | 42.4 | 35.1 - 46.3 fL | [facility] | | | | | | [facility] | | | | | | [facility] | | | | | | CENTER - | | | | | | LABORATORY | | + +-------+ + + + | Platelet | 283 | 140 - 440 K/uL | [facility] | | | Count | | | [facility] | | | | | | [facility] | | | | | | CENTER - | | | | | | LABORATORY | | + +-------+ + + + | MPV | 10.1 | 6.5 - 12.4 fL | [facility] [...] [address] | [place] | [phone] | | [facility] | | [address] | | | - LABORATORY | | | | + + + + + Basic Metabolic Panel (01/05/2020 4:39 AM PST) + + + + + [...] + + | K | 4.0 | 3.4 - 5.1 | [facility] | | | | | mmol/L | [facility] | | | | | | MEDICAL | | | | | | CENTER - | | | | | | LABORATORY | | + + + + + + | Cl | 106 | 98 - 107 mmol/L | [facility] | | | | | | [facility] | | | | | | [facility] | | | | | | CENTER - | | | | | | LABORATORY | | + + + + + + | CO2 | 25 | 20 - 31 mmol/L | [facility] [...] + + | Glucose | 99 | 60 - 106 mg/dL | [facility] | | | | | | [facility] | | | | | | [facility] | | | | | | CENTER - | | | | | | LABORATORY | | + + + + + + | BUN | 12 | 9 - 23 mg/dL | [facility] | | | | | | [facility] | | | | | | [facility]ICAL | | | | | | CENTER - | | | | | | LABORATORY | | + + + + + + | Creatinine | 0.87 | 0.55 - 1.02 | [facility] | | | | | mg/dL | [facility] | | | | | | MEDICAL | | | | | | CENTER - | | | | | | LABORATORY | | + + + + + + | eGFR, | >60Comment: GLOMERULAR | >=60 | [facility] | | | non- | FILTRATION | mL/min/1.73m2 | [facility] | | | [place] | RATE,ESTIMATED | | MEDICAL | | | | mL/min/1.39s8Honw than | | CENTER - | | [...] + + | Calcium | 9.1 | 8.7 - 10.4 | [facility] | [...] + | [facility] | [address] | [place] | [phone] | | [facility] | | [address] | | | - LABORATORY | | | | + + + + + Culture, Blood (01/04/2020 12:42 PM PST) + + + + + + | Component | Value | Ref Range | Performed | Pathologist | | | | | At | Signature | + + + + + + | Culture | No growth after 5 days | | [facility] | | | | incubation. | | [facility] | | | | | [facility] | | | | | | CENTER - | | | | | | LABORATORY | | + + + + + + + + | Specimen | + + | Blood - Peripheral | | blood specimen | | (specimen) | + + + + + + + | Performing | Address | City/State/Zipcode | Phone Number | | Organization | | | | + + + + + | [facility] | [address] | [place] | [phone] | | [facility] | | [address] | | | - LABORATORY | | | | + + + + + Culture, Blood (01/04/2020 12:39 PM PST) + + + + + + | Component | Value | Ref Range | Performed | Pathologist | | | | | At | Signature | + + + + + + | Culture | No growth after 5 days | | [facility] | | | | incubation. | | [facility] | | | | | | MEDICAL | | | | | | CENTER - | | | | | | LABORATORY | | + + + + + + + + | Specimen | + + | Blood - Peripheral | | blood specimen | | (specimen) | + + + + + + + | Performing | Address | City/State/Zipcode | Phone Number | | Organization | | | | + + + + + | [facility] | [address] | [place] | [phone] | | [facility] | | [address] | | | - LABORATORY | | | | + + + + + CT Orbit Sella Post Fossa IAC w Cont (01/04/2020 10:54 AM PST) + + | Specimen | + + | | + + + + + | Impressions | Performed At | + + + | 1. LEFT PRESEPTAL PERIORBITAL AND MALAR SOFT TISSUE | [facility] | | SWELLING/INFLAMMATION AND SUSPECTED SMALL SUPERFICIAL ABSCESS AT THE | | | LEVEL OF THE MEDIAL CANTHUS. NO CONCLUSIVE POST SEPTAL INVOLVEMENT | | | IS APPARENT. 2. LOBULATED, PRESUMABLY ENHANCING LESION AT THE | | | LEVEL OF THE BODY OF THE RIGHT LATERAL VENTRICLE WHICH MAY BE | | | INTRAVENTRICULAR OR SUBEPENDYMAL. FOLLOW-UP UNENHANCED AND ENHANCED | | | BRAIN MRI SHOULD BE STRONGLY CONSIDERED FOR FURTHER | | | CHARACTERIZATION. Images were provided for interpretation on December | | | 2019 at 1100 hours. Results were finalized at 1130 hours. | | | Dictated and Signed by: Hugo Godfrey MD Electronically signed: | | | 01/04/2020 11:32 AM | | + + + + + + | Narrative | Performed At | + + + | ENHANCED CT ORBITS 01/04/2020 10:52 AM CLINICAL HISTORY: left | [facility] | | periorbital swelling COMPARISON: None TECHNIQUE: Axial | | | images are performed through the orbits following the uneventful | | | intravenous administration of 85 cc Omnipaque 350 contrast. Coronal | | | and sagittal reformations are also performed. FINDINGS: There is | | | left preseptal periorbital and malar soft tissue swelling. A small, | | | circumscribed collection of hypoattenuating material measuring up to | | | 9 x 6 x 9 mm is noted superficially at the level of the left medial | | | canthus and is suspicious for abscess. No foreign body or soft | | | tissue gas is evident. Minimal gas along the anterior superior | | | margin of the left orbit is likely subpalpebral. The ocular globes, | | | lacrimal glands, extraocular muscles and optic nerves are symmetric | | | and unremarkable. No conclusive post septal orbital abnormality is | | | apparent. The superior ophthalmic veins are patent and symmetric | | | along with the other imaged vasculature, including the cavernous | | | sinus. No osseous abnormality is evident. The imaged paranasal | | | sinuses are well aerated along with the middle ear cavities and | | | imaged mastoid air cells. There is leftward nasal septal deviation | | | and spurring. A lobulated, hyperattenuating and presumably | | | enhancing structure demonstrating probable focal internal | | | calcification is noted at the level of the mid to anterior body of | | | the right lateral ventricle, measuring up to 1.3 x 1.3 x 1.4 cm, and | | | is likely intraventricular or subependymal in location. There is no | | | ventricular dilation and the imaged intracranial structures are | | | otherwise unremarkable. | | + + + + + | Procedure Note | + + | Christopher, Rad Results In - 01/04/2020 11:35 AM PST [address] ORBITS 01/04/2020 10:52 AM | | | | CLINICAL HISTORY: left periorbital swelling | | | | COMPARISON: None | | | | TECHNIQUE: Axial images are performed through the orbits following the | | uneventful intravenous administration of 85 cc Omnipaque 350 contrast. Coronal | | and sagittal reformations are also performed. | | | | FINDINGS: There is left preseptal periorbital and malar soft tissue swelling. A | | small, circumscribed collection of hypoattenuating material measuring up to 9 x | | 6 x 9 mm is noted superficially at the level of the left medial canthus and is | | suspicious for abscess. No foreign body or soft tissue gas is evident. Minimal | | gas along the anterior superior margin of the left orbit is likely subpalpebral. | | The ocular globes, lacrimal glands, extraocular muscles and optic nerves are | | symmetric and unremarkable. No conclusive post septal orbital abnormality is | | apparent. The superior ophthalmic veins are patent and symmetric along with the | | other imaged vasculature, including the cavernous sinus. No osseous abnormality | | is evident. The imaged paranasal sinuses are well aerated along with the middle | | ear cavities and imaged mastoid air cells. There is leftward nasal septal | | deviation and spurring. | | | | A lobulated, hyperattenuating and presumably enhancing structure demonstrating | | probable focal internal calcification is noted at the level of the mid to | | anterior body of the right lateral ventricle, measuring up to 1.3 x 1.3 x 1.4 | | cm, and is likely intraventricular or subependymal in location. There is no | | ventricular dilation and the imaged intracranial structures are otherwise | | unremarkable. | | | | IMPRESSION: | | 1. LEFT PRESEPTAL PERIORBITAL AND MALAR SOFT TISSUE SWELLING/INFLAMMATION AND | | SUSPECTED SMALL SUPERFICIAL ABSCESS AT THE LEVEL OF THE MEDIAL CANTHUS. NO | | CONCLUSIVE POST SEPTAL INVOLVEMENT IS APPARENT. | | | | 2. LOBULATED, PRESUMABLY ENHANCING LESION AT THE LEVEL OF THE BODY OF THE RIGHT | | LATERAL VENTRICLE WHICH MAY BE INTRAVENTRICULAR OR SUBEPENDYMAL. FOLLOW-UP | | UNENHANCED AND ENHANCED BRAIN MRI SHOULD BE STRONGLY CONSIDERED FOR FURTHER | | CHARACTERIZATION. | | | | Images were provided for interpretation on January 04, 2020 at 1100 hours. Results | | were finalized at 1130 hours. | | | | Dictated and Signed by: Hugo Godfrey MD | | Electronically signed: 01/04/2020 11:32 AM | + + + +---------+ + + | Performing | Address | City/State/Zipcode | Phone Number | | Organization | | | | + +---------+ + + | [facility] | | | | + +---------+ + + TSH (01/04/2020 10:17 AM PST) + +-------+ + + + | Component | Value | Ref Range | Performed | Pathologist | | | | | At | Signature | + +-------+ + + + | TSH | 2.62 | 0.55 - 4.78 | [facility] | | | | | uIU/mL | [facility] | | | | | | MEDICAL [...] [address] | [place] | [phone] | | [facility] | | [address] | | | - LABORATORY | | | | + + + + + Comprehensive Metabolic Panel (01/04/2020 10:17 AM PST) + + + + + [...] + + + + | K | 4.2 | 3.4 - 5.1 | [facility] | [...] + + + + | CO2 | 29 | 20 - 31 mmol/L | [facility] [...] + + | Glucose | 100 | 60 - 106 mg/dL | [facility] | | | | | | [facility] | [facility] | | | [facility] | | | | | | CENTER - | | | | | | LABORATORY | | + + + + + + | BUN | 10 | 9 - 23 mg/dL | [facility] | | | | | | [facility] | | | | | | MEDICAL | | | | | | CENTER - | | | | | | LABORATORY | | + + + + + + | Creatinine | 0.86 | 0.55 - 1.02 | [facility] | | | | | mg/dL | [facility] | | | | | | MEDICAL | | | | | | CENTER - | | | | | | LABORATORY | | + + + + + + | eGFR, | >60Comment: GLOMERULAR | >=60 | [facility] | | | non- | FILTRATION | mL/min/1.73m2 | [facility] | | | [place] | RATE,ESTIMATED | | MEDICAL | | | | mL/min/1.21f9Wibe than | | CENTER - | | [...] + + + + | Calcium | 9.6 | 8.7 - 10.4 | [facility] | | | | | mg/dL | [facility] | | | | | | MEDICAL | | | | | | CENTER - | | | | | | LABORATORY | | + + + + + + | Albumin | 4.5 | 3.2 - 4.8 g/dL | [facility] [...] + + | Total | 7.1 | 5.7 - 8.2 g/dL | [facility] | | | Protein | | | [facility] | | | | | | MEDICAL | | | | | | CENTER - | | | | | | LABORATORY | | + + + + + + | AST | 15 | 0 - 34 U/L | [facility] | | | | | | [facility] | | | | | | MEDICAL | | | | | | CENTER - | | | | | | LABORATORY | | + + + + + + | ALT | 9 (L) | 10 - 49 U/L | [facility] | | | | | | [facility] | | | | | | MEDICAL | | | | | | CENTER - | | | | | | LABORATORY | | + + + + + + | Alkaline | 88 | 46 - 116 U/L | [facility] | | | Phosphatase | | | [facility] | | [...] [address] | [place] | [phone] | | [facility] | | [address] | | | - LABORATORY | | | | + + + + + CBC with Differential (01/04/2020 10:17 AM PST) + +-------+ + + + | Component | Value | Ref Range | Performed | Pathologist | | | | | At | Signature | + +-------+ + + + | White Blood | 7.1 | 4.0 - 11.0 K/uL | [facility] | | | Cells | | | [facility] | | | | [facility] - | | | | | | LABORATORY | | + +-------+ + + + | Red Blood | 4.67 | 3.70 - 5.20 | [facility] | | | Cells | | M/uL | [facility] | | | | | | [facility] - | | | | | | LABORATORY | | + +-------+ + + + | Hemoglobin | 14.2 | 11.5 - 16.0 | [facility] | | | | | g/dL | [facility] | [facility] | | | | | | [facility] - | | | | | | LABORATORY | | + +-------+ + + + | Hematocrit | 42.7 | 34.0 - 47.0 % | [facility] | | | | | | [facility] | | [facility] | [facility] | | | | | | [facility] - | | | | | | LABORATORY | | + +-------+ + + + | MCV | 91.4 | 83.0 - 101.0 fL | [facility] | | | | | | [facility] | [facility] | | | | | | [facility] - | | | | | | LABORATORY | | + +-------+ + + + | MCH | 30.4 | 28.0 - 35.0 pg | [facility] | | | | | | [facility] | | | | | | [facility] | | | | | | [facility] - | | | | | | LABORATORY | | + +-------+ + + + | MCHC | 33.3 | 32.0 - 36.0 | [facility] | | | | | g/dL | [facility] | | | | | | [facility] | | | | | | [facility] - | | | | | | LABORATORY | | + +-------+ + + + | RDW-CV | 12.6 | <15.0 % | [facility] | | | | | | [facility] | | [facility] | [facility] | | | | | | [facility] - | | | | | | LABORATORY | | + +-------+ + + + | RDW-SD | 41.9 | 35.1 - 46.3 fL | [facility] | | | | | | [facility] | | [facility] | [facility] | | | | | | [facility] - | | | | | | LABORATORY | | + +-------+ + + + | Platelet | 322 | 140 - 440 K/uL | [facility] [...] +-------+ + + + | % | 57.5 | 45.0 - 82.0 % | [facility] | | | Neutrophils | | | [facility] | | | | | | [facility] | | | | | | [facility] - | | | | | | LABORATORY | | + +-------+ + + + | % | 31.2 | 20.0 - 45.0 % | [facility] [...] +-------+ + + + | % | 3.4 | 0.0 - 5.0 % | [facility] [...] + + + | % Immature | 0.4 | 0.0 - 0.4 % | [facility] | | | Granulocyte | | | [facility] | | | [facility] | | | [facility] | | | | | | CENTER - | | | | | | LABORATORY | | + +-------+ + + + | Absolute | 4.09 | 1.80 - 8.50 | [facility] | | | Neutrophils | | K/uL | [facility] | | | | | [facility] | | | | | | [facility] - | | | | | | LABORATORY | | + +-------+ + + + | Absolute | 2.22 | 0.60 - 3.20 | [facility] | | | Lymphocytes | | K/uL | [facility] | | | | | | [facility] | | | | | | CENTER - | | | | | | LABORATORY | | + +-------+ + + + | Absolute | 0.48 | 0.00 - 1.00 | [facility] | | | Monocytes | | K/uL | [facility] | | | | | | [facility] | | | | | | C[facility] - | | | | | | LABORATORY | | + +-------+ + + + | Absolute | 0.24 | 0.00 - 0.40 | [facility] | | | Eosinophils | | K/uL | [facility] | | | | | | [facility] | | | | | | CENTER - | | | | | | LABORATORY | | + +-------+ + + + | Absolute | 0.06 | 0.00 - 0.10 | [facility] | | | Basophils | | K/uL | [facility] | | | | | | [facility] | | | | | | CENTER - | | | | | | LABORATORY | | + +-------+ + + + | Absolute | 0.03 [...] [address] | [place] | [phone] | | [facility] | | [id number] | | | - LABORATORY | | | | + + + + + documented in this encounter Visit Diagnoses + + | Diagnosis | + + | Periorbital cellulitis of left eye - Primary | + + | Preseptal cellulitis Abscess of eyelid | + + | Blepharitis of both upper and lower eyelid of left eye, unspecified type | + + | Brain lesion Other conditions of brain | + + | Malignant neoplasm of lung, unspecified laterality, unspecified part of lung (HCC) | + + | Thyroid cancer (HCC) Malignant neoplasm of thyroid gland | + + | Malignant neoplasm of female breast, unspecified estrogen receptor status, unspecified | | laterality, unspecified site of breast (HCC) | + + | Hypothyroidism, unspecified type | + + | Intracranial space-occupying lesion Swelling, mass, or lump in head and neck | + + | Blepharitis of eyelid of left eye | + + | Primary malignant neoplasm of female breast (HCC) | + + | Non-small cell cancer of right lung (HCC) | + + documented in this encounter Administered Medications + +--------+ +--------+------+------+ | Medication Order | MAR | Action | Dose | Rate | Site | | | Action | Date | | | | + +--------+ +--------+------+------+ | acetaminophen (TYLENOL) tablet | Given | 01/05/20 | 650 mg | | | | 650 mg 650 mg, Oral, EVERY 4 | | 20 9:51 | | | | | HOURS PRN, Pain, or fever >= 38.6 | | PM PST | | | | | C (101.5 F), Starting [facility] 01/04/20 | | | | | | | at 1403 | | | | | | + +--------+ +--------+------+------+ +-------+ +--------+---+---+ | Given | 01/05/20 | 650 mg | | | | | 20 3:43 | | | | | | AM PST | | | | +-------+ +--------+---+---+ | Given | 01/04/20 | 650 mg | | | | | 20 10:48 | | | | | | PM PST | | | | +-------+ +--------+---+---+ +---+---+ | | | +---+---+ + +---------+ +-----+-------+---+ | cefTRIAXone (ROCEPHIN) 2 g in | New Bag | 01/04/20 | 2 g | 100 | | | sodium chloride 0.9% 50 mL IVPB | | 20 12:43 | | mL/hr | | | 2 g, Intravenous, Administer over | | PM PST | | | | | 30 Minutes, ONCE, [place] 01/04/20 at | | | | | | | 1220, For 1 dose, Activate system | | | | | | | and mix before use., | | | | | | | Indications: Cellulitis | | | | | | + +---------+ +-----+-------+---+ +---+---+ | | | +---+---+ + +---------+ +-----+-------+---+ | cefTRIAXone (ROCEPHIN) 2 g in | New Bag | 01/06/20 | 2 g | 100 | | | sodium chloride 0.9% 50 mL IVPB | | 20 9:16 | | mL/hr | | | 2 g, Intravenous, Administer over | | AM PST | | | | | 30 Minutes, EVERY 24 HOURS | | | | | | | (Daily), First dose on Wed01/05/20 | | | | | | | at 0900, Activate system and mix | | | | | | | before use., Indications: | | | | | | | NON-PURULENT SKIN AND SOFT TISSUE | | | | | | | INFECTION | | | | | | + +---------+ +-----+-------+---+ +---------+ +-----+-------+---+ | New Bag | 01/05/20 | 2 g | 100 | | | | 20 8:40 | | mL/hr | | | | AM PST | | | | +---------+ +-----+-------+---+ +---+---+ | | | +---+---+ + +---------+ +--------+-------+---+ | doxycycline (VIBRAMYCIN) 100 mg | New Bag | 01/05/20 | 100 mg | 100 | | | in sodium chloride 0.9% 100 mL | | 20 3:24 | | mL/hr | | | IVPB 100 mg, Intravenous, | | PM PST | | | | | Administer over 1 Hours, EVERY 12 | | | | | | | HOURS (2 times per day), First | | | | | | | dose on Wed01/04/20 at 1430, | | | | | | | Activate system and mix before | | | | | | | use., Indications: NON-PURULENT | | | | | | | SKIN AND SOFT TISSUE INFECTION | | | | | | + +---------+ +--------+-------+---+ +---------+ +--------+-------+---+ | New Bag | 01/05/20 | 100 mg | 100 | | | | 20 3:44 | | mL/hr | | | | AM PST | | | | +---------+ +--------+-------+---+ | New Bag | 01/04/20 | 100 mg | 100 | | | | 20 3:39 | | mL/hr | | | | PM PST | | | | +---------+ +--------+-------+---+ +---+---+ | | | +---+---+ + +-------+ +--------+---+---+ | doxycycline (VIBRAMYCIN) tablet | Given | 01/06/20 | 100 mg | | | | 100 mg 100 mg, Oral, 2 TIMES | | 20 9:14 | | | | | DAILY, First dose on Wed01/05/20 | | AM PST | | | | | at 2100, May take with food to | | | | | | | avoid GI upset. Administer with | | | | | | | at least 8 ounces of water and | | | | | | | have patient sit up for at least | | | | | | | 30 minutes., Indications: | | | | | | | NON-PURULENT SKIN AND SOFT TISSUE | | | | | | | INFECTION | | | | | | + +-------+ +--------+---+---+ +-------+ +--------+---+---+ | Given | 01/05/20 | 100 mg | | | | | 20 8:18 | | | | | | PM PST | | | | +-------+ +--------+---+---+ +---+---+ | | | +---+---+ + +-------+ +-------+---+ + | enoxaparin (LOVENOX) 40 mg/0.4 | Given | 01/05/20 | 40 mg | | Abdomen- | | mL injection 40 mg 40 mg, | | 20 8:36 | | | LLQ | | Subcutaneous, EVERY 24 HOURS | | AM PST | | | | | (Daily), First dose on [facility] 01/04/20 | | | | | | | at 1430 | | | | | | + +-------+ +-------+---+ + +-------+ +-------+---+ + | Given | 01/04/20 | 40 mg | | Abdomen- | | | 20 2:42 | | | RLQ | | | PM PST | | | | +-------+ +-------+---+ + +---+---+ | | | +---+---+ + +-------+ +--------+---+---+ | iohexol (OMNIPAQUE 350) 350 | Given | 01/04/20 | 85 mLs | | | | mg/mL injection 85 mL 85 mL, | | 20 10:54 | | | | | Intravenous, ONCE PRN, Other, | | AM PST | | | | | Starting [place] 01/04/20 at 1054, For | | | | | | | 1 dose, Cat Scanner | | | | | | + +-------+ +--------+---+---+ +---+---+ | | | +---+---+ + +-------+ +-------+---+---+ | ketorolac (TORADOL) injection | Given | 01/05/20 | 15 mg | | | | 15 mg 15 mg, Intravenous, EVERY | | 20 3:42 | | | | | 6 HOURS PRN, Pain, Starting [place] | | AM PST | | | | | 01/04/20 at 1403, For 5 days | | | | | | + +-------+ +-------+---+---+ +-------+ +-------+---+---+ | Given | 01/04/20 | 15 mg | | | | | 20 8:17 | | | | | | PM PST | | | | +-------+ +-------+---+---+ | Given | 01/04/20 | 15 mg | | | | | 20 2:37 | | | | | | PM PST | | | | +-------+ +-------+---+---+ +---+---+ | | | +---+---+ + +-------+ +---------+---+---+ | lactobacillus GG-inulin | Given | 01/06/20 | 1 | | | | (CULTURELLE) capsule 1 capsule 1 | | 20 9:14 | capsule | | | | capsule, Oral, 2 TIMES DAILY, | | AM PST | | | | | First dose on Wed01/04/20 at 2100, | | | | | | | Probiotics added by pharmacy per | | | | | | | P&T protocol Do not open or | | | | | | | crush., | | | | | | + +-------+ +---------+---+---+ +-------+ +---------+---+---+ | Given | 01/05/20 | 1 | | | | | 20 8:18 | capsule | | | | | PM PST | | | | +-------+ +---------+---+---+ | Given | 01/05/20 | 1 | | | | | 20 8:36 | capsule | | | | | AM PST | | | | +-------+ +---------+---+---+ +---+---+ | | | +---+---+ + +-------+ +---------+---+---+ | levothyroxine (SYNTHROID) | Given | 01/06/20 | 125 mcg | | | | tablet 125 mcg 125 mcg, Oral, | | 20 6:33 | | | | | DAILY BEFORE BREAKFAST, First | | AM PST | | | | | dose on Wed01/04/20 at 1430, Give | | | | | | | before breakfast., | | | | | | + +-------+ +---------+---+---+ +-------+ +---------+---+---+ | Given | 01/05/20 | 125 mcg | | | | | 20 6:49 | | | | | | AM PST | | | | +-------+ +---------+---+---+ | Given | 01/04/20 | 125 mcg | | | | | 20 2:36 | | | | | | PM PST | | | | +-------+ +---------+---+---+ +---+---+ | | | +---+---+ + +-------+ +--------+---+---+ | moxifloxacin (VIGAMOX) 0.5% | Given | 01/06/20 | 1 drop | | | | ophthalmic solution 1 drop 1 | | 20 9:15 | | | | | drop, Left Eye, 3 TIMES DAILY, | | AM PST | | | | | First dose on [place] 01/04/20 at 1400 | | | | | | + +-------+ +--------+---+---+ +-------+ +--------+---+---+ | Given | 01/05/20 | 1 drop | | | | | 20 8:18 | | | | | | PM PST | | | | +-------+ +--------+---+---+ | Given | 01/05/20 | 1 drop | | | | | 20 3:00 | | | | | | PM PST | | | | +-------+ +--------+---+---+ + +---+ | | | + +---+ | nicotine (NICODERM) 14 mg/24 hr | | | 1 patch 1 patch, Transdermal, | | | DAILY PRN, Nicotine Craving, | | | Starting 01/05/20 at 1640 | | + +---+ | | | + +---+ + +-------+ +-------+---+---+ | pantoprazole (PROTONIX) DR | Given | 01/06/20 | 40 mg | | | | tablet 40 mg 40 mg, Oral, DAILY | | 20 6:33 | | | | | BEFORE BREAKFAST, First dose on | | AM PST | | | | | [place] 01/04/20 at 1430, Indication: | | | | | | | GERD | | | | | | + +-------+ +-------+---+---+ +-------+ +-------+---+---+ | Given | 01/05/20 | 40 mg | | | | | 20 6:49 | | | | | | AM PST | | | | +-------+ +-------+---+---+ | Given | 01/04/20 | 40 mg | | | | | 20 2:36 | | | | | | PM PST | | | | +-------+ +-------+---+---+ +---+---+ | | | +---+---+ + +-------+ +--------+---+---+ | polyvinyl alcohol (LIQUITEARS) | Given | 01/06/20 | 1 drop | | | | 1.4% ophthalmic solution 1 drop | | 20 9:15 | | | | | 1 drop, Left Eye, 3 TIMES DAILY, | | AM PST | | | | | First dose on Wed01/04/20 at 1430 | | | | | | + +-------+ +--------+---+---+ +-------+ +--------+---+---+ | Given | 01/05/20 | 1 drop | | | | | 20 8:19 | | | | | | PM PST | | | | +-------+ +--------+---+---+ | Given | 01/05/20 | 1 drop | | | | | 20 3:00 | | | | | | PM PST | | | | +-------+ +--------+---+---+ +---+---+ | | | +---+---+ + +---------+ + +-------+---+ | vancomycin 1,250 mg in sodium | New Bag | 01/04/20 | 1,250 mg | 175 | | | chloride 0.9% 250 mL IVPB 1,250 | | 20 1:26 | | mL/hr | | | mg, Intravenous, Administer over | | PM PST | | | | | 90 Minutes, EVERY 12 HOURS | | | | | | | INTERVAL, First dose on Wed | | | | | | | 01/04/20 at 1300, Keep in | | | | | | | refrigerator., Indications: | | | | | | | cellulitis | | | | | | + +---------+ + +-------+---+ +---+---+ | | | +---+---+ + +-------+ +-------+---+---+ | zolpidem (AMBIEN) tablet 5-10 | Given | 01/05/20 | 10 mg | | | | mg 5-10 mg, Oral, NIGHTLY PRN, | | 20 9:51 | | | | | Insomnia, Starting 01/05/20 at | | PM PST | | | | | 1705 | | | | | | + +-------+ +-------+---+---+ +---+---+ | | | +---+---+ documented in this encounter
--- OUTSIDE RECORDS SUMMARY | ~2020-08-08 | XMS | Encounter Summary ---
Demographics + + + | Address | [address] | | | [place] [address] | + + + | Home Phone [...] Providers + +------+ + | Care Animal Geneticist Name | Role | Phone | [...] | | | (ICD-9-CM) - | [address] | [address] [place] | | | | | Non-small | [place], | [place], [place] | | | | | cell cancer | [place] | [address] Phone: | | | | | of right | [address] | [phone] | | | | | lung | Phone: | Fax: | | | | | Procedures | [phone] | [phone] | | | | | [address] | Fax: | | | | | | | [phone] | | +--------+--------+ + + + + Encounter Details +--------+ + + + + | Date | Type | Department | Care Team | Description | +--------+ + + + + | 10/03/ | Hospital | [facility] | Marie Milton | Primary malignant | | 2019 | Encounter | [facility] | MD [place] | neoplasm of female | | | | [facility] [address] [place] | breast (HCC) | | | | [address] [place] | [place] [address] | (Primary Dx) | | | | [place] [address] | [phone] | | | | | [phone] | | | +--------+ + + + [...] erent from the original. Hem-Onc Progress Note [facility] Pt. Name/Age/: Olena Levint 59 y.o. 1960 Med. Record Number: [id number] Date of admission: 10/03/2019 Assessment and plan: [...] grade pT1c pN 0(sn) ER+(99% , strong), [place]+(60%, strong), Her2 non-amplified (FISH ratio 1.06) Status [...] by: Milton Salazar MD, 10/03/2019 3:36 PM [facility] TIME SPENT 20 MIN. > 50% AT BEDSIDE, WITH FAMILY/PATIENT IN CARE AND TEACHING AIDE ON UNIT AND CO ORDINATION OF CARE Portions of this chart may have been created with [employer] voice recognition software. Occasi onal wrong-word or sound-alike substitutions may have occurred due to the inherent cervnates itations of voice recognition software. Please read [...] [place] | | | | | | [address] | | | | | | | | +--------+ + + + + | 08/12/ | Hospital | Infusion Therapy | Elmer Silva | | | 2019 | Encounter | | E, [address] | | | | | | [place] | | | | | | [address] | | | | | | | | +--------+ + + + + | 08/12/ | Appointment | Oncology | Lionel Benson | | | 2019 | | | J, [facility] [address] | | | | | | [address] | | | | | | [place] [address] | | | | | | [phone] | | | | | | | | +--------+ + + + + | 08/19/ | Appointment | Oncology | Elmer Silva | | | 2019 | | | E, [address] | | | | | | [place], [place] | | | | | | [address] | | | | | | | | +--------+ + + + + | 08/19/ | Appointment | Infusion Therapy | Elmer Silva | | | 2019 | | | E, [address] | | | | | | [place], [place] | | | | | | [address] | | | | | | | [...] | | | | [place] | | | | | | [address] | | | | | | | [...] [place] | | | | | | [address] | | | | | | | [...] [place] | | | | | | [address] | | | | | | | [...] | | | | | [address] [place] [place] | | | | | | [address] | | | | | | | [...]
--- OUTSIDE RECORDS SUMMARY | ~2020-08-08 | XMS | Encounter Summary ---
Demographics + + + | Address | [address] | | | [place] [address] | + + + | Home Phone [...] Team Providers + +------+ + | Care Access Control Specialist Name | Role | Phone | + +------+ + | Zuleyka Martínez | PCP | | + +------+ + Encounter Details +--------+ + + + + | Date | Type | Department | Care Team | Description | +--------+ + + + + | 03/31/ | Hospital | [facility] | Milton Salazar | Sinusitis, | | 2017 | Encounter | [facility] | MD [address] | unspecified | | | | [facility] [address] | chronicity, | | | | [address] | [place] [address] | unspecified location | | | | [place] [address] | [phone] | (Primary Dx); | | | | [phone] | | Non-small cell | | | [...] + + + | Blood Pressure | 137/85 | 03/31/2017 8:28 AM | | | | | PDT | | + + + + + | Pulse | 78 | 03/31/2017 8:28 AM | | | | | PDT | | + + + + + | Temperature | 36.8 C (98.3 F) | 03/31/2017 8:28 AM | | | | | PDT | | + + + + + | Respiratory Rate | 16 | 03/31/2017 8:28 AM | | | | | PDT | | + + + + + | Oxygen Saturation | 100% | 03/31/2017 8:28 AM | | | | | PDT | | + + + + + | Inhaled Oxygen | - | - | | | Concentration | | | | + + + + + | Weight | 84 kg (185 lb 3 oz) | 03/31/2017 8:28 AM | | | | | PDT | | + + + + + | Height | - | - | | + + + + + | Body Mass Index | 28.16 | 11/04/2016 9:00 AM | | | [...] encounter Progress Notes Milton Salazar MD - 03/31/2017 8:53 AM PDTFormatting of this note might be diff erent from the original. Hem-Onc Progress Note [facility] Pt. Name/Age/: Olena Rider 56 y.o. 1960 Med. Record Number: [id number] Date of admission: 03/31/2017 Assessment and plan: 1. Acute sinusitis Discussion today with regard to physical findings noting mild sinus tenderness, likely impa irment in eustachian tube function. Differential diagnosis includes likelihood of upper res piratory infection. Based on that, based on patient's occupational exposure to others with contagious disease, her immunosuppression from chemotherapy have recommended going ahead wit h a one-week course of oral antibiotic therapy. Patient today will begin a second day of Au gmentin 500 mg twice daily. We will arrange for follow-up in 48 hours concomitant with plan wilmar next upcoming cycle chemotherapy. Subjective: The patient chart and medications were reviewed in detail and the patient was seen and exam ined. Olena Rider is a 56 y.o. female returns today for add-on follow-up because of sympto ms of acute sinusitis of several days duration. Patient generally doing better in the wake of a second cycle of chemotherapy as adjunctive treatment for stage II non-small cell lung cancer having switched from cisplatin to carbopla tin as an adjuvant chemotherapy. Then over the weekend patient experiencing onset of anteri or facial pain low-grade temperature elevations. This morning patient also having headache. She does not have a previous history of sinus infection. Nor does patient experienced all ergy. She notices that her eyelids are somewhat swollen. She is not having itching however . Nor has her vision become blurred. There is been no effects on hearing. PSH: Reviewed, no changes to admission H&P. Review of Systems: Constitutional: States fatigue. Denies high fevers, shaking chills, anorexia, nausea, vomit ing, weight loss, or night sweats. Appetite without changes. States having low grade fever this weekend. Ear, Nose, Mouth, Throat: Denies odynophagia, dysphagia, or tinnitus. Cardiovascular: Denies shortness of breath, dyspnea on exertion, chest pain, palpitations o r orthopnea. Respiratory: Denies hemoptysis, or sputum production. Unchanged cough-unproductive. Gastrointestinal: Denies abdominal pain, constipation, diarrhea, melena, or bright red bloo d per rectum. Genitourinary: Denies hematuria or dysuria. Musculoskeletal:Arthritic pain reported. Neurologic: Denies visual changes, or numbness/tingling of the extremities. States startin g this weekend developing a headache behind her eyes. States eyes have been "puffy". Endocrine: Denies peripheral edema or heat/cold intolerance. Hematologic: Denies spontaneous bruising or bleeding. Integumentary: Denies rash, wounds or other skin concerns. Pain: Pain level today is a 5/10 this is with both ibuprofen and tylenol. Pain gets as hig h as an 8/10. Tolerable pain level: 3>./10. Arthritic pain and headache reported today. Review of systems as above otherwise negative [...] on file prior to encounter. Objectives: Temp: 36.8 C (98.3 F) BP: 137/85 Pulse: 78 Resp: 16 SpO2: 100 % on Min/Max Temp past 24 hours:Temp Av.8 C (98.3 F) Min: 36.8 C (98.3 F) Max: 3 6.8 C (98.3 F) No intake or output data in the 24 hours ending 03/31/17 0853 Wt. Admission: Weight: 84 kg (185 lb 3 oz) Wt. Current: Weight: 84 kg (185 lb 3 oz) Physical Exam: Exam: General: The patient is alert and oriented. No acute distress. HEENT: Mild tenderness overlying frontal sinuses. Tympanic membranes with dull bluish liv ter Cardiovascular: Regular rate and rhythm, no murmur. Respiratory: Clear to auscultation and percussion. Breast: Not examined Genitourinary: Deferred. Extremities: Nontender, no erythema, no edema. Skin: No rashes, bruising, or petechiae. Lymph: No palpable nodes in the neck, supraclavicular fossa, axilla or groin. Neurological: Cranial nerves are intact. Normal sensory and motor function, No focal defi cits noted. Muscular/Skeletal: No acute bony tenderness. Psychiatric: Normal mood and affect. Diagnostic studies: Electronically signed by: Milton Salazar, 03/31/2017 8:53 [facility] TIME SPENT 20 MIN. > 50% AT BEDSIDE, WITH FAMILY/PATIENT IN CARE AND SLEEVE TAILOR ON UNIT AND CO ORDINATION OF CARE Portions of this chart may have been created with [employer] voice recognition software. Occasi onal wrong-word or sound-alike substitutions may have occurred due to the inherent cervantes itations of voice recognition software. Please read the chart carefully and recognize, using context, where these substitutions have occurred. Amanda Wagner, [facility] - 03/31/2017 8:31 AM PDTREVIEW O F SYSTEMS Constitutional: States fatigue. Denies high fevers, shaking chills, anorexia, nausea, vomit ing, weight loss, or night sweats. Appetite without changes. States having low grade fever this weekend. Ear, Nose, Mouth, Throat: Denies odynophagia, dysphagia, or tinnitus. Cardiovascular: Denies shortness of breath, dyspnea on exertion, chest pain, palpitations o r orthopnea. Respiratory: Denies hemoptysis, or sputum production. Unchanged cough-unproductive. Gastrointestinal: Denies abdominal pain, constipation, diarrhea, melena, or bright red bloo d per rectum. Genitourinary: Denies hematuria or dysuria. Musculoskeletal:Arthritic pain reported. Neurologic: Denies visual changes, or numbness/tingling of the extremities. States startin g this weekend developing a headache behind her eyes. States eyes have been "puffy". Endocrine: Denies peripheral edema or heat/cold intolerance. Hematologic: Denies spontaneous bruising or bleeding. Integumentary: Denies rash, wounds or other skin concerns. Pain: Pain level today is a 5/10 this is with both ibuprofen and tylenol. Pain gets as hig h as an 8/10. Tolerable pain level: 3>./10. Arthritic pain and headache reported today. Note: Pt started her antibiotics (Amoxicillin) for a possible sinus infection yesterday. P t is here for follow up. NO LABS. My chart: documented in this encounter Miscellaneous Notes Addendum Note - Amanda Mckenna CMA - 03/31/2017 2:28 PM PDTEncounter addended by: Amanda Mckenna CMA on: 03/31/2017 14:28
Actions taken: Visit diagnoses modified, Charge C apture section accepted documented in this encounter Plan of Treatment +--------+ + + + + | Date | Type | Specialty | Care Team | Description | +--------+ + + + + | 08/12/ | Appointment | Oncology | Elmer Silva | | | 2019 | | | MD [address] | | | | | | [place], [place] | | | | | | [phone] | | | | | | | | +--------+ + + + + | 08/12/ | Hospital | Infusion Therapy | Elmer Silva | | | 2019 | Encounter | | MD [address] | | | | | | [place] | | | | | | [id number] | | | | | | | | +--------+ + + + + | 08/12/ | Appointment | Oncology | Lionel Benson | | | 2019 | | | [address] | | | | | | [address] | | | | | | [place] [address] | | | | | | [phone] | | | | | | | | +--------+ + + + + | 08/19/ | Appointment | Oncology | Elmer Silva | | | 2019 | | | Trip, MD [address] | | | | | | [place] | | | | | | [address] | | | | | | | | +--------+ + + + + | 08/19/ | Appointment | Infusion Therapy | Elmer Silva | | 2019 | | | MD Trip [address] | | | | | | [place] | | | | | | [address] | | | | | | | [...] [place] | | | | | | [id number] | | | | | | | [...] [place] | | | | | | [id number] | | | | | | | [...] [place] | | | | | | [id number] | | | | | | | [...] [place] | | | | | | [id number] | | | | | | | | +--------+ + + + + documented as of this encounter Visit Diagnoses + + | Diagnosis | + + | Sinusitis, unspecified chronicity, unspecified location - Primary | + + | Non-small cell cancer of right lung (HCC) | + + documented in this encounter
--- OUTSIDE RECORDS SUMMARY | ~2020-08-08 | XMS | Encounter Summary ---
Demographics + + + | Address | [address] | | | [place] [address] | + + + | Home Phone [...] Team Providers + +------+ + | Care Primary Teacher Name | Role | Phone | [...] | +--------+ + + + + | 09/27/ | [facility] | [facility] | Susie Montemayor | Primary malignant | | 2019 | Encounter | [facility] | MD Jared [address] | neoplasm of female | | | | ONCOLOGY CLINIC [address] | [place], [place] | breast (HCC) | | | | [address] [facility] | [id number] | (Primary Dx) | | | | [place] [address] | | | | | | [phone] | | | +--------+ + + + [...] + + + | Blood Pressure | 124/85 | 09/27/2019 1:34 PM | | | | | PST | | + + + + + | Pulse | 89 | 09/27/2019 1:34 PM | | | | | PST | | + + + + + | Temperature | 36.3 C (97.3 F) | 09/27/2019 1:34 PM | | | | | PST | | + + + + + | Respiratory Rate | 16 | 09/27/2019 1:34 PM | | | | | PST | | + + + + + | Oxygen Saturation | 98% | 09/27/2019 1:34 PM | | | | | PST [...] encounter Progress Notes Susie Montemayor MD - 09/27/2019 2:15 PM PST Radiation Oncology Weekly On Treatment Note Diagnosis: ICD-10-CM ICD-9-CM 1. Primary malignant neoplasm of female breast (HCC) C50.919 174.9 Reason for visit: On treatment evaluation Radiation technical factors: Dose Delivered Dose Planned Fractions Delivered 4005 cGy 400 cGy 4005 cGy 1000 cGy 12/06 Images were reviewed this week and results [...] Take 1 tablet by mouth as needed. ibuprofen (ADVIL,MOTRIN) 600 MG tablet [...] facility-administered medications on file prior to encounter. Vitals: 09/27/19 1334 BP: 124/85 Pulse: 89 Resp: 16 Temp: 36.3 C (97.3 F) SpO2: 98% Physical Exam Constitutional: She appears well-developed and well-nourished. Neurological: She is alert. Skin: No rash noted. There is erythema (Deep erythema without desquamation). Psychiatric: She has a normal mood and affect. Nurse Assessment and Toxicity Grading: Toxicity Flowsheet 09/27/2019 Diarrhea - Nausea 1 - Grade 1 Vomiting 0 - Grade 0 Fatigue 2 - Grade 2 Cough 0 - Grade 0 Palmar-Plantar Erythrodysesthesia Syndrome - Rash Acneiform - Rash Maculo-Papular - Karnofsky Performance Score 80% Physician Assessment: 09/27/19: Olena is near completion of radiation treatment. 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 Her blood pressure is much improved this week, since starti ng metoprolol and discontinuing endocrine therapy. She has followed up with her PCP. 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 Disposition: Continue radiation treatment as planned. Continue skin care with emollient lotion. Add EMLA for pain control Follow-up with medical oncology to discuss additional trials of adjuvant endocrine therapy Follow-up with me in 3 months after completion of radiation, sooner if needed Susie Montemayor MD Radiation Oncologist documented in this encounter Plan of Treatment +--------+ + + + + | Date | Type | Specialty | Care Team | Description | +--------+ + + + + | 08/12/ | Appointment | Oncology | Elmer Silva | | 2019 | | | MD [address] | | | | | | [place], [place] | | | | | | [phone] | | | | | | | | +--------+ + + + + | 08/12/ | Hospital | Infusion Therapy | Elmer Silva | | 2019 | Encounter | | E, [address] | | | | | | [place] | | | | | | [address] | | | | | | | | +--------+ + + + + | 08/12/ | Appointment | Oncology | Lionel Benson | | 2019 | | | [address] | | | | | | [address] [place] | | | | | | [place] [address] | | | | | | [phone] | | | | | | | | +--------+ + + + + | 08/19/ | Appointment | Oncology | Elmer Silva | | | 2019 | | | E, [address] | | | | | | [place] | | | | | | [address] | | | | | | | | +--------+ + + + + | 08/19/ | Appointment | Infusion Therapy | Elemr Silva | | | 2019 | | | E, [address] | | | | | | [place] | | | | | | [address] | | | | | | | [...] [place] | | | | | | [id number] | | | | | | | [...] [place] | | | | | | [id number] | | | | | | | [...] [place] | | | | | | [id number] | | | | | | | [...] [place] | | | | | | [id number] | | | | | | | | +--------+ + + + + documented as of this encounter Visit Diagnoses + + | Diagnosis | + + | 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
--- OUTSIDE RECORDS SUMMARY | ~2020-08-08 | XMS | Encounter Summary ---
Demographics + + + | Address | [address] | | | [place] [address] | + + + | Home Phone | | + + + | Preferred Language | Unknown | + + + | Marital Status | Single | + + + | Buddhist Affiliation | Unknown | + + + | Race | White | + + + | Ethnic Group | Not or | + + + Author + + + | Author | [facility] | | | and [place] | + + + | Organization | [facility] | | [...] Team Providers + +------+ + | Care Drawing Press Operator Name | Role | Phone | + +------+ + | Zuleyka Martínez | PCP | | + +------+ + Reason for Referral Diagnostic/Screening (Urgent) +--------+--------+ + + + + | Status | Reason | Specialty | Diagnoses / | Referred By | Referred To | | | | | Procedures | Contact | Contact | +--------+--------+ + + + + | Closed | | Radiology | Diagnoses | Riegert, | [facility] | | | | | 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, | [address] | | | | | adenocarcino | MD [address] | [place], | | | | | ma of brain | [address] | [place] | | | | | (HCC) | [place], | [address] | | | | | Procedures | [place] [address] | Phone: | | | | | MRI Brain w | Phone: | [phone] | | | | | wo Contrast | [phone] | Fax: | | | | | | Fax: | [phone] | | | | | | [phone] | | +--------+--------+ + + + + [...] | 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, | [address] | | | | | adenocarcino | [address] | [place], | | | | | ma of brain | [address] | [place] [address] | | | | | (HCC) | [place], | Phone: | | | | | Procedures | [place] [address] | [phone] | | | | | CT Treatment | Phone: | Fax: | | | | | Plan | [phone] | [phone] | | | | | Complex | Fax: | | | | | | | [phone] | | +--------+--------+ + + + + Encounter Details +--------+ + + + + | Date | Type | Department | Care Team | Description | +--------+ + + + + | 03/07/ | Orders Only | [facility] | Susie Montemayor | 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 FINAL PATHOLOGIC DIAGNOSIS: Pending stains A. 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 The positive CA19-9 and polyclonal CEA are strong evidence for a pancreatic or hepatobiliary primary. Please karine elate with imaging Studies. Continued head ache behind her eyes. Constant, varies in severity. Managing with tylenol, ibuprofen and Vicodin. Tolerated biopsy well, minimal surgical/incisional pain. Difficulty focusing with the left eye, describes a shadow in her vision. She does have an optometry ap pointment next Wednesday Pathology is consistent with her lung primary which was described as mucinous and signet ri ng features. She has not exhibited any signs or symptoms of a gastrointestinal primary. Ad ditionally PET/CT has been benign elsewhere. I will have her pathology reviewed at the [facility] ([facility]3] r board. However my plan is to proceed with radiosurgery to the solitary brain metastasis a s soon as possible. I have put to an urgent request for CT simulation and repeat MRI of the brain. Repeat MRI of the brain as needed for radiosurgery treatment planning as her most r ecent MRI is over 1 month ago and she has undergone a brain biopsy in the interim. Olena expressed agreement with this plan.Electronically signed by Susie Montemayor MD at 2019 11:25 AM PDTdocumented in this encounter Plan of Treatment +--------+ + + + + | Date | Type | Specialty | Care Team | Description | +--------+ + + + + | 08/12/ | Appointment | Oncology | Elmer Silva | | | 2019 | | | E, MD [address] | | | | | [place] | | | | | | [address] | | | | | | | | +--------+ + + + + | 08/12/ | Hospital | Infusion Therapy | Elmer Silva | | | 2019 | Encounter | | E, MD [address] | | | | | | [place] | | | | | | [address] | | | | | | | | +--------+ + + + + | 08/12/ | Appointment | Oncology | Lionel Benson | | | 2019 | | | [address] | | | | | | [address] [facility] | | | | | | [place] [address] | | | | | | [phone] | | | | | | | | +--------+ + + + + | 08/19/ | Appointment | Oncology | Elmer Silva | | | 2019 | | | E, MD [address] | | | | | | [place], [place] | | | | | | [address] | | | | | | | | +--------+ + + + + | 08/19/ | Appointment | Infusion Therapy | Elmer Silva | | | 2019 | | | E, [address] | | | | | ST [place], [place] | | | | | | [address] | | | | | | | [...] | | | | [place] | | | | | | [address] | | | | | | | [...] [place] | | | | | | [id number] | | | | | | | [...] [place] | | | | | | [address] | | | | | | | | +--------+ + + + + | 09/23/ | Appointment | Infusion Therapy | | | | 2019 | | | | | +--------+ + + + + | 11/22/ | Appointment | Radiation Oncology | AlbinaSusie | | | 2020 | | | MD [address]az[address] | | | | | | [facility] [place] | | | | | | [address] | | | | | | | | +--------+ + + + + documented as of this encounter Results MRI Brain w wo Contrast (03/11/2020 4:24 PM PDT) + + | Specimen | + + | | + + + + + | Impressions | Performed At | + + + | Biopsy related changes within the mass consistent with a small | [facility] | | amount of hemorrhage. There is evidence for a small amount of | | | postbiopsy intraventricular hemorrhage without hydrocephalus. No | | | evidence for additional lesions. Dictated and Signed by: Milton Mcnair | | | MD Renate Electronically signed: 03/11/2020 9:30 PM | | + + + + + + | Narrative | Performed At | + + + | EXAM: MRI BRAIN W WO CONTRAST dated 03/11/2020 3:45 PM HISTORY: | [facility] | | Brain/SUPPORT SERVICES TECH neoplasm, staging COMPARISON: MRI 01/22/2020. CT | | | 02/27/2020 TECHNIQUE: Multiplanar, multisequence imaging of the | | | brain was performed in the 3 T MR scanner prior to and following the | | | uneventful intravenous administration of 8 cc of Gadavist contrast. | | | FINDINGS: There is an enhancing nodule along the right | | | caudate that projects into the right lateral ventricle. This is | | | more homogeneous than on the comparison study. It measures 16 x 16 x | | | 16 mm which is minimally changed in size. There is a new area of | | | T1 precontrast hyperintensity within the lesion. This is probably | | | related to a biopsy. There is a very faint biopsy tract extending | | | from a scalp and calvarial defect in the right calvarium near the | | | vertex. There is a very faint amount of enhancement along the | | | cortex near the entrance site for the biopsy. There is a small | | | amount of white matter disease surrounding the ventricles and in the | | | niya. T2 and FLAIR hyperintensity is present in the periphery of the | | | right basal ganglia. No significant atrophy. No hydrocephalus. | | | No restricted diffusion. There is some susceptibility weighted | | | artifact associated with the, extending into the right lateral | | | ventricle, fourth ventricle, and along the biopsy tract. This | | | likely represents hemosiderin deposition. 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 The globes and | | | retrobulbar structures are symmetric and unremarkable. There is a | | | small amount of mucosal thickening in the right sphenoid sinus. The | | | mastoid air cells are clear. | | + + + + + | Procedure Note | + + | Christopher, Rad Results In - 03/11/2020 9:33 PM PDT EXAM: MRI BRAIN W WO CONTRAST dated | | 03/11/2020 3:45 PMHISTORY: Brain/SUPPORT SERVICES TECH neoplasm, stagingCOMPARISON: MRI 01/22/2020. CT | | 02/27/2020TECHNIQUE: Multiplanar, multisequence imaging of the brain was performed in | | the3 T MR scanner prior to and following the uneventful intravenous administrationof 8 | | cc of Gadavist contrast. FINDINGS: There is an enhancing nodule along the right caudate | | that projects into theright lateral ventricle. This is more homogeneous than on the | | comparison study. It measures 16 x 16 x 16 mm which is minimally changed in size. There | | is a newarea of T1 precontrast hyperintensity within the lesion. This is | | probablyrelated to a biopsy. There is a very faint biopsy tract extending from a | | scalpand calvarial defect in the right calvarium near the vertex. There is a veryfaint | | amount of enhancement along the cortex near the entrance site for thebiopsy.There is a | | small amount of white matter disease surrounding the ventricles andin the niya. T2 and | | FLAIR hyperintensity is present in the periphery of theright basal ganglia. No | | significant atrophy. No hydrocephalus. No restricteddiffusion. There is some | | susceptibility weighted artifact associated with the,extending into the right lateral | | ventricle, fourth ventricle, and along thebiopsy tract. This likely represents | | hemosiderin deposition.Redemonstration of the small supraclinoid aneurysm on the | | right.The globes and retrobulbar structures are symmetric and unremarkable. There bernarda | | small amount of mucosal thickening in the right sphenoid sinus. The mastoidair cells | | are clear.IMPRESSION: Biopsy related changes within the mass consistent with a small | | amount ofhemorrhage. There is evidence for a small amount of postbiopsy | | intraventricularhemorrhage without hydrocephalus.No evidence for additional | | lesions.Dictated and Signed by: Milton Dewitt MD Electronically signed: 03/11/2020 | | 9:30 PM | |diffusion. There is some susceptibility weighted artifact associated with the, | |extending into the right lateral ventricle, fourth ventricle, and along the | |biopsy tract. This likely represents hemosiderin deposition. 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 | | | |The globes and retrobulbar structures are symmetric and unremarkable. There is | |a small amount of mucosal thickening in the right sphenoid sinus. The mastoid | |air cells are clear. | | | |IMPRESSION: | | | |Biopsy related changes within the mass consistent with a small amount of | |hemorrhage. There is evidence for a small amount of postbiopsy intraventricular | |hemorrhage without hydrocephalus. | | | |No evidence for additional lesions. | | | |Dictated and Signed by: Milton Dewitt MD | | Electronically signed: 03/11/2020 9:30 PM | + + + +---------+ + + | Performing | Address | City/State/Zipcode | Phone Number | | Organization | | | | + +---------+ + + | [facility] | | | | + +---------+ + + CT Treatment Plan Complex (03/11/2020 3:38 PM [...]
--- OUTSIDE RECORDS SUMMARY | ~2020-08-08 | XMS | Encounter Summary ---
Demographics + + + | Address | [address] | | | [place] [address] | + + + | Home Phone [...] Team Providers + +------+ + | Care Horse Racing Manager Name | Role | Phone | + +------+ + | Zuleyka Martínez | PCP | | + +------+ + Reason for Visit +---------+--------+ + | Reason | Onset | Comments | | | Date | | +---------+--------+ + | Testing | 08/08/ | [facility] | | | 2019 | | +---------+--------+ + Encounter Details +--------+ + + + + | Date | Type | Department | Care Team | Description | +--------+ + + + + | 08/08/ | Telephone | [facility] | Ashley Doty RN | Testing ([facility] | | 2018 | | [facility] | | Genetic Laboratory) | | | | ONCOLOGY CLINIC [address] | | | | | | [address] [place] | | | | | | [place] [address] | | | | | | [phone] | | | +--------+ + + + [...] Encounter - Ashley Doty RN - 08/21/2019 9:27 AM PDTReceived genetic test res ults from [facility]. I showed Dr. Salazar a copy of the results. She i s schedule to see Dr. Salazar on 08/29/19 @ 6659. I will be giving her an official patien t copy for her records at this time. I will also be taking a copy to HIM to be scanned into [employer]. elephone Encounte r - Ashley Doty RN - 08/09/2019 2:17 PM PDTOlena called me this afternoon with an up date. I have sent her requisition form and the blood specimen in today's mail. Electronicall y signed by Ashley Doty RN at 08/09/2019 2:18 PM PDTTelephone Encounter - Ashley Doty RN - 08/08/2019 3:09 PM Júniorvioletta came in for genetic testing through [facility]. I explain the process for genetic testing and went over the handbook on "Genetic Testing for Hereditary Cancer." I had her watch the patient education video from [facility]. Violet wagner signed informed consent for Hereditary Cancer Genetic Testing and the Test Request Form. S he wanted to proceed with genetic testing, so Kelin in lab was able to obtain a blood specim en. I will be sending the signed consents, Dr. Salazar progress note, a copy of her insur ance, and the blood specimen as soon as she gives me the information that I need to complete the requisition. docum ented in this encounter Plan of Treatment +--------+ + + + + | Date | Type | Specialty | Care Team | Description | +--------+ + + + + | 08/12/ | Appointment | Oncology | Elmer Silva | | 2019 | | | MD Lazaro Wagner | | | | | | [place] | | | | | | [address] | | | | | | | | +--------+ + + + + | 08/12/ | Hospital | Infusion Therapy | Elmer Silva | | | 2019 | Encounter | | MD Lazaro Wagner | | | | | | [place] | | | | | | [address] | | | | | | | | +--------+ + + + + | 08/12/ | Appointment | Oncology | Lionel Benson | | 2019 | | | J, PharmD [address] | | | | | | [address] [place] | | | | | | [place] [address] | | | | | | [phone] | | | | | | | | +--------+ + + + + | 08/19/ | Appointment | Oncology | Elmer Silva | | 2019 | | | Trip, [address] | | | | | | [place], [place] | | | | | | [address] | | | | | | | | +--------+ + + + + | 08/19/ | Appointment | Infusion Therapy | Elmer Silva | | | 2019 | | | E, [address] | | | | | | [address] [place], [place] | | | | | | [address] | | | | | | | [...] | Visit | | MD Lazaro Wagner [address] | | | | | | [place] | | | | | | [address] | | | | | | | [...] [place] | | | | | | [address] | | | | | | | [...] [place] | | | | | | [address] | | | | | | | [...]
--- OUTSIDE RECORDS SUMMARY | ~2020-08-08 | XMS | Encounter Summary ---
Demographics + + + | Address | [address] | | | [place] [address] | + + + | Home Phone | | + + + | Preferred Language | Unknown | + + + | Marital Status | Single | + + + | Mandaen Affiliation | Unknown | + + + | Race | White | + + + | Ethnic Group | Not or | + + + Author + + + | Author | [facility] | | | and [place] | + + + | Organization | [facility] | | [...] Team Providers + +------+ + | Care Wharf Tender Head Name | Role | Phone | + [...] | | | | Diagnoses | | [place], | | | | | Brain mass | | DO Lemuel | | | | | Procedures | | [address] | | | | | [place] | | [address] | | | | | STEREOTACTIC | | B | | | | | BRAIN | | [place] | | | | | [place] | | [address] | | | | | [place] | | Phone: | | | | | STEREOTACTIC | | [phone] | | | | | COMP ASSIST | | Fax: | | | | | | | [phone] | | | | | PROC,CRANIAL | [...] + + | 02/26/ | Anesthesia | [facility] | Denita Cottrell, | | | 2020 | Event | [facility] | [address] | | | | | OPER[address] | [place] [address] | | | | | [address] | [phone] | | | | | [place], [place] | | | | | | [address] | | | | | | [phone] | | | +--------+ + + + [...] +----+---+ + + | | 0 | [place] | | | | 7 | 43-degrees [...] EVALUATION Olena Rider 59 y.o. female 1960 [id number] Procedure(s) Stereotactic biopsy of right frontal lesion. [...] by Denita Cottrell MD 02/27/2020 9:07 AM [facility] nesthesia Procedure Notes - Denita Cottrell [...] EVALUATION Olena Rider 59 y.o. female 1960 [id number] Procedure(s): Stereotactic biopsy of right frontal lesion. [...] NOTE Olena Rider 59 y.o. female 1960 [id number] Stereotactic biopsy of right frontal lesion. Possible [...] team. Denita Cottrell MD 02/27/2020 9:07 AM [facility] documented in this encounter Plan of Treatment +--------+ + + + + | Date | Type | Specialty | Care Team | Description | +--------+ + + + + | 08/12/ | Appointment | Oncology | Elmer Silva | | 2019 | | | MD Lazaro Dominique | | | | | | [place] | | | | | | [address] | | | | | | | | +--------+ + + + + | 08/12/ | Hospital | Infusion Therapy | Elmer Silva | | 2019 | Encounter | | MD Lazaro Dominique | | | | | | [place] | | | | | | [address] | | | | | | | | +--------+ + + + + | 08/12/ | Appointment | Oncology | Lionel Benson | | | 2019 | | | [address] | | | | | | [address] [place] | | | | | | [place] [address] | | | | | | [phone] | | | | | | | | +--------+ + + + + | 08/19/ | Appointment | Oncology | Elmer Silva | | 2019 | | | Trip, [address] | | | | | | [place] | | | | | | [address] | | | | | | | | +--------+ + + + + | 08/19/ | Appointment | Infusion Therapy | Elmer Silva | | | 2019 | | | E, [address] | | | | | | [address] [place] | | | | | | [address] | | | | | | | [...] Visit | | MD Trip [address] | | | | | | [place] | | | | | | [address] | | | | | | | [...] [place] | | | | | | [address] | | | | | | | [...] [place] | | | | | | [address] | | | | | | | [...] | | | | | | ST [place], [place] | | | | | | [address] | | | | | | | [...] | | | | | PRN, Starting 02/27/20 at | | AM PDT [...] 8:39 | | | | | Starting Wed02/27/20 at 0835, | | AM PDT | [...] | | | | | | [facility] 02/27/20 at 0930, For 2 hours, | [...] Intravenous, PRN, Starting Tue | | 20 7:31 | | | [...]
--- OUTSIDE RECORDS SUMMARY | ~2020-08-08 | XMS | Encounter Summary ---
Demographics + + + | Address | [address] | | | [place] [address] | + + + | Home Phone [...] + | Author | [facility] | | | and [place] | + + + | Organization | [facility] | | | and [place] | + + + | Address | Unknown | + + + | Phone | Unavailable | + + + Support + + +---------+ + | Name | Relationship | Address | Phone | + + +---------+ + | Jennifer Rider | ECON | Unknown | | + + +---------+ + | Oksana Viatle | ECON | Unknown | | + + +---------+ + Care Team Providers + +------+ + | Care Pipe Cutter Name | Role | Phone | [...] | | | [address] [place] | [place] [address] | | | | | [place] [address] | | | | | | [phone] | | | +--------+ + + + [...] [place] | | | | | | [address] | | | | | | | | +--------+ + + + + | 08/12/ | Hospital | Infusion Therapy | Elmer Silva | | | 2019 | Encounter | | MD Lazaro Dominique | | | | | | [place] | | | | | | [address] | | | | | | | | +--------+ + + + + | 08/12/ | Appointment | Oncology | Lionel Benson | | | 2019 | | | [address] | | | | | | [address] | | | | | | [place] [address] | | | | | | [phone] | | | | | | | | +--------+ + + + + | 08/19/ | Appointment | Oncology | Elmer Silva | | | 2019 | | | E, [address] | | | | | | [place] | | | | | | [address] | | | | | | | | +--------+ + + + + | 08/19/ | Appointment | Infusion Therapy | Elmer Silva | | | 2019 | | | E, [address] | | | | | | [place] | | | | | | [address] | | | | | | | [...] [place] | | | | | | [address] | | | | | | | [...] [place] | | | | | | [address] | | | | | | | [...] [place] | | | | | | [address] | | | | | | | [...] | | | | | | [address] [place], [place] | | | | | | [address] | | | | | | | [...]
--- OUTSIDE RECORDS SUMMARY | ~2020-08-08 | XMS | Encounter Summary ---
Demographics + + + | Address | [address] | | | [place] [address] | + + + | Home Phone [...] Author + + + | Author | [facility] | | | and [place] | + + + | Organization | [facility] | | | [...] Team Providers + +------+ + | Care Carpenter Apprentice Name | Role | Phone | + [...] | | | [facility] CLIN[facility] [address] | [facility] | | | | | [address] | [place] [address] | | | | | [place] [address] | [phone] | | | | | [phone] | | | +--------+ + + + [...] notified of Augmentin use and transferred to [facility] in scheduling to schedule follow up [...] Has been hydrating well. Uses [facility] in [place], [place]. elephone Adriana Langley - 03/30/2017 10:16 [...] [place] | | | | | | [address] | | | | | | | | +--------+ + + + + | 08/12/ | Hospital | Infusion Therapy | Elmer Silva | | | 2019 | Encounter | | MD Lazaro Dominique | | | | | | [place] | | | | | | [address] | | | | | | | | +--------+ + + + + | 08/12/ | Appointment | Oncology | Lionel Benson | | | 2019 | | | J, Ze [address] | | | | | | [address] | | | | | | [place] [address] | | | | | | [phone] | | | | | | | | +--------+ + + + + | 08/19/ | Appointment | Oncology | Elmer Silva | | | 2019 | | | E, [address] | | | | | | [place] | | | | | | [address] | | | | | | | | +--------+ + + + + | 08/19/ | Appointment | Infusion Therapy | Elmer Silva | | | 2019 | | | E, [address] | | | | | | [place] | | | | | | [address] | | | | | | | [...] [place] | | | | | | [address] | | | | | | | [...] [place] | | | | | | [address] | | | | | | | [...] [place] | | | | | | [address] | | | | | | | [...] | | | | | [place] | | | | | | [address] | | | | | | | | +--------+ + + + + documented as of this encounter Visit Diagnoses + + | Diagnosis | + + | Sinusitis, unspecified chronicity, unspecified location - Primary | + + documented in this encounter"
--- OUTSIDE RECORDS SUMMARY | ~2020-08-08 | XMS | Encounter Summary ---
Demographics + + + | Address | [address] | | | [place] [address] | + + + | Home Phone [...] + + + | Author | [facility] | | | and [place] | + + + | Organization | [facility] | | | [...] Team Providers + +------+ + | Care Geothermal Powerplant Mechanic Helper Name | Role | Phone | + +------+ + | Zuleyka Martínez | PCP | | + +------+ + Reason for Visit Follow Up (Urgent) + +--------+ + + + + | Status | Reason | Specialty | Diagnoses / | Referred By | Referred To | | | | | Procedures | Contact | Contact | + +--------+ + + + + | Authorized | | Oncology | Diagnoses | Martínez, | [facility] | | | | | Malignant | Zuleyka | Oncology | | | | | neoplasm of | [place] [address] | Clinic [address] | | | | | unspecified | [address] | [place] | | | | | part of | [place], [place] | [place], | | | | | right | [address] | [place] [address] | | | | | bronchus or | Phone: | Phone: | | | | | lung (HCC) | [phone] | [phone] | | | | | Secondary | Fax: | Fax: | | | | | malignant | [phone] | [phone] | | | | | neoplasm of | | | | | | | brain (HCC) | | | | | | | Non-small | | | | | | | cell cancer | | | | | | | of right | | | | | | | lung | | | | | | | Secondary | | | | | | | adenocarcino | | | | | | | ma of brain | | | | | | | | | | | | | | Procedures | | | | | | | [address] | | | + +--------+ + + + + Encounter Details +--------+ + + + + | Date | Type | Department | Care Team | Description | +--------+ + + + + | 07/19/ | Hospital | [facility] | Emler Silva | Non-small cell | | 2020 | Encounter | [facility] | MD Trip [address] | cancer of right lung | | | | ONCOLOGY CLINIC [address] | [place], [place] | (HCC) (Primary Dx) | | | | [facility] | [address] | | | | | [place] [address] | | | | | | [phone] | | | +--------+ + + + [...] + + + | Blood Pressure | 135/80 | 07/19/2020 11:41 AM | | | | | PDT | | + + + + + | Pulse | 86 | 07/19/2020 11:41 AM | | | | | PDT | | + + + + + | Temperature | 37.1 C (98.8 F) | 07/19/2020 11:41 AM | | | | | PDT | | + + + + + | Respiratory Rate | 16 | 07/19/2020 11:41 AM | | | | | PDT | | + + + + + | Oxygen Saturation | 100% | 07/19/2020 11:41 AM | | | | | PDT | | + + + + + | Inhaled Oxygen | - | - | | | Concentration | | | | + + + + + | Weight | 84.5 kg (186 lb 4.6 | 07/19/2020 11:41 AM | | | | oz) | PDT | | + + + + + | Height | - | - | | + + + + + | Body Mass Index | 27.91 | 02/27/2020 6:30 AM | | | [...] documented as of this encounter Progress Notes Elmer Silva MD - 07/19/2020 11:40 AM PDTMedical Oncology Follow-Up Note Reason For Visit Current Diagnosis and Disease State: She has 3 malignancies, but only one is clinically sig nificant at present, namely metastatic adenocarcinoma of the lung, 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 Current Therapy: None Specific reason for appointment: Progression of intracranial disease, probably with LMD. Interval History and System Review Since I last saw her in April, Ms. Rider had an unremarkable CT C/A/P in May and surveillanc e MRI Brain in June that did not suggest progressive disease. In late June or early Jul emb she noted Right arm pain, especially affecting last three fingers on Right. She saw Dr Maximiliano Montemayor on 07/16 and a C-spine study was ordered. Unfortunately she then developed facial p alsy, leading to MRI of brain yesterday. This showed an area of haziness around the 4th vent ricle and several new areas along nerves on Right side of brain. These findings are felt to be worrisome for LMD, an impression only strengthened by the Right arm symptoms suggestive o f C-Spine nerve root involvement. No bowel or bladder Sx yet. She is scheduled for an MRI of the C-spine today. She has been started on Dex by Dr. Montemayor, and is scheduled to begin WB XRT (30 Gy in 10 Fx) on Wednesday the , and of course this could be extended to C-spine dep ending on imaging findings. Current Performance Status: 2 Systematic Review of Systems Constitutional: Reports energy levels are low. Reports nausea intermittently with decrease d appetite. Denies fatigue. Denies high fevers, shaking chills, [...] rectum. Genitourinary: Denies hematuria or dysuria. Musculoskeletal: Right arm pain 05/10 today, this started about month ago. Denies joint pain or tenderness. Neurologic: Reports occasional floaters to vision. Headaches are frequent, taking Tylenol a nd ibuprofen. Three fingers to right hand are completely numb and sensitive. Denies headach e, visual changes, or numbness/tingling of the extremities. Endocrine: Reports right hand sensitive to temperatures. Denies peripheral edema or heat/co ld intolerance. Hematologic: Denies spontaneous bruising or bleeding. Integumentary: Denies rash, wounds or other skin concerns. Pain: Pain 05/10. Cancer History Presentation: Small RLL lesion found incidentally in work-up of thyroid cancer. 12/30/2016 Right lower lobectomy Path: Two foci (pT3) of adenocarcinoma with mucinous/signet ring features, largest 1.3 cm. LVI identified, pN0(isolated cells) Molecular: No mutations in EGFR, KRAS. No rearrangement of ALK or ROS1. PD-L1 3%. Germline: VUS in AXIN2 (p.S398G) (Note germline STK11 was nml, see below) Age at Dx: 56 Staging: Negative for distant disease by PET Jan 2017 Adjuvant pemetrexed/carbo x4, completed April. 01/22/2020 MRI Brain: New cystic lesion in brain 02/06/2020 PET: No sign of active disease outside brain 02/27/2020 Bx of brain lesion Path: c/w adeno of lung Molecular: NGS (Caris) No alteration in genes commonly associated w ith hi low truck driver mutations in lung cancer. Does have STK11 mutation (in Exon 7 c.920 +1 G>T). This is a tumor suppressor kinase that is commonly lost in adenocarcinoma of the lung. See 2017 review here. In that study, exon 7 mutations did relatively well compared to ex1 & 2 mutatio ns. March 2020 SRS to brain lesion; taken to 27 Gy in 3 Fx, completed 03/26/20 05/27/2020 CT C/A/P: YU 06/17/2020 Surveillance MRI Brain: Appropriate shrinkage of treated lesion Important Co-morbidity Hx of low-risk Breast Cancer (Jun, 2019), now s/p Lumpectomy for pT1, N0 luminal A disease. Adjuvant exemestane stopped as of today. Depression/Anxiety, managed with Cymbalta and Xanax Thyroid Cancer, s/p radioiodine ablation Iatrogenic hypothyroidism, s/p radioiodine ablation for thyroid cancer. Currently on Synthr oid 125 mcg/day, with normal TSH in December 2019. 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 No loss of muscle mass. Notable Current Lab and Imaging As above Impression 1. Adenocarcinoma of lung, without actionable genetic change, now metastatic to brain, prob ably with LMD 2. Hx of Breast and Thyroid cancers of no current clinical significance Plan 1. She will proceed as indicated above on steroids and XRT to involved areas 2. Stop exemestane 3. Tentatively plan to initiate systemic therapy with chemo-IO in 3 weeks, to give one wee k between XRT and chemotherapy. Tina Santamaria RN - 07/19/2020 11:40 AM PDTREVIEW OF SYSTEMS Constitutional: Reports energy levels are low. Reports nausea intermittently with decrease d appetite. Denies fatigue. Denies high fevers, shaking chills, [...] rectum. Genitourinary: Denies hematuria or dysuria. Musculoskeletal: Right arm pain 7/10 today, this started about month ago. Denies joint pain or tenderness. Neurologic: Reports occasional floaters to vision. Headaches are frequent, taking Tylenol a nd ibuprofen. Three fingers to right hand are completely numb and sensitive. Denies headach e, visual changes, or numbness/tingling of the extremities. Endocrine: Reports right hand sensitive to temperatures. Denies peripheral edema or heat/co ld intolerance. Hematologic: Denies spontaneous bruising or bleeding. Integumentary: Denies rash, wounds or other skin concerns. Pain: Pain 05/10. Note: Follow up with Dr. Silva per Dr. Montemayor's recommendation My chart: Active documented in this e ncounter Plan of Treatment +--------+ + + + + | Date | Type | Specialty | Care Team | Description | +--------+ + + + + | 08/12/ | Appointment | Oncology | Elmer Silva | | 2019 | | | MD [address] | | | | | | [place], [place] | | | | | | [id number] | | | | | | | | +--------+ + + + + | 08/12/ | Hospital | Infusion Therapy | Elmer Silva | | | 2019 | Encounter | | MD [address] | | | | | | [place] | | | | | | [address] | | | | | | | | +--------+ + + + + | 08/12/ | Appointment | Oncology | Lionel Benson | | | 2019 | | | [address] | | | | | | [address] | | | | | | [place] [address] | | | | | | [phone] | | | | | | | | +--------+ + + + + | 08/19/ | Appointment | Oncology | Elmer Silva | | | 2019 | | | E, MD [address] | | | | | | [place] | | | | | | [address] | | | | | | | | +--------+ + + + + | 08/19/ | Appointment | Infusion Therapy | Elmer Silva | | | 2019 | | | MD [address] | | | | | | [place] | | | | | | [address] | | | | | | | [...] [place] | | | | | | [address] | | | | | | | [...] [place] | | | | | | [address] | | | | | | | [...] [place] | | | | | | [address] | | | | | | | [...] [place] | | | | | | [address] | | | | | | | | +--------+ + + + + documented as of this encounter Procedures + +--------+ + + + | Procedure Name | Priori | Date/Time | Associated Diagnosis | Comments | | | ty | | | | + +--------+ + + + | IMAGING REPORT - | | 07/17/2020 | | Results for this | | EXTERNAL SCAN | | 12:00 AM | | procedure are in the | | | | PDT | | results section. | + +--------+ + + + | LABS - EXTERNAL SCAN | | 07/17/2020 | | Results for this | | | | 12:00 AM | | procedure are in the | | | | PDT | | results section. | + +--------+ + + + documented in this encounter Results LABS - EXTERNAL SCAN (07/17/2020 12:00 AM PDT) + + + | Narrative | Performed At | + + + | Ordered by an | | | unspecified provider. | | + + + IMAGING REPORT - EXTERNAL SCAN (07/17/2020 12:00 AM PDT) + + + | [...]
--- OUTSIDE RECORDS SUMMARY | ~2020-08-08 | XMS | Encounter Summary ---
Demographics + + + | Address | [address] | | | [place] [address] | + + + | Home Phone [...] Team Providers + +------+ + | Care Meat Seafood Associate Name | Role | Phone | + +------+ + | Zuleyka Martínez | PCP | | + +------+ + Reason for Visit + + + | Reason | Comments | + + + | Follow-up | | + + + | Breast Cancer | | + + + Follow Up [...] | | | cell cancer | [place] [address] | [address] | | | | | of right | [address] | [address] | | | | | lung (HCC) | [place], [place] | [place], | | | | | Secondary | [address] | [place] [address] | | | | | adenocarcino | Phone: | Phone: | | | | | ma of brain | [phone] | [phone] | | | | | (HCC) | Fax: | Fax: | | | | | Thyroid | [phone] | [phone] | | | | | Procedures | | | | | | | [place] OFFICE | | | | | | | OUTPATIENT | | | | | | | VISIT 25 | | | | | | | MINUTES | | | + +--------+ + + + + Encounter Details +--------+ + + + + | Date | Type | Department | Care Team | Description | +--------+ + + + + | 01/16/ | Hospital | [facility] | Susie Montemayor | Primary malignant | | 2020 | Encounter | [facility] | MD Jared [address] | neoplasm of female | | | | ONCOLOGY CLINIC [address] | [place], [place] | breast (HCC) | | | | [facility] | [address] | (Primary Dx) | | | | [place] [address] | | | | | | [phone] | | | +--------+ + + + [...] + + + | Blood Pressure | 114/75 | 01/17/2020 3:01 PM | | | | | PDT | | + + + + + | Pulse | 75 | 01/17/2020 3:01 PM | | | | | PDT | | + + + + + | Temperature | 36.4 C (97.5 F) | 01/17/2020 3:01 PM | | | | | PDT | | + + + + + | Respiratory Rate | 14 | 01/17/2020 3:01 PM | | | | | PDT | | + + + + + | Oxygen Saturation | 100% | 01/17/2020 3:01 PM | | | | | PDT | | + + + + + | Inhaled Oxygen | - | - | | | Concentration | | | | + + + + + | Weight | 84.6 kg (186 lb 8.2 | 01/17/2020 3:01 PM | | | | oz) | PDT | | + + + + + | Height | - | - | | + + + + + | Body Mass Index | 27.95 | 01/04/2020 1:57 PM | | | [...] of this encounter Discharge Instructions Patient Instructions Abby Rodriguez RN - 01/17/2020 3:00 PM PDTPlan: We will wait to schedule next follow up, based on MRI findings. Make sure to keep your MRI appointment and w e will be in touch. Mammogram due in May we will call to get you scheduled for this. Self Care: Continue to do daily massages to the right breast and axilla. documented in this encounter Medications at Time [...] encounter Progress Notes Susie Montemayor MD - 01/17/2020 3:00 PM PDT Radiation Oncology Follow-up Chief Complaint/ICD10 [...] 0/2 lymph nodes. pT1c pN0 ER 99%, FL 60%, Her2 non-amplified. - Lucio genetic test panel: Variant of uncertain significance AXIN2 (c.1168A>G) - 09/2019- trial anastrozole, poorly tolerated due to hypertension. - 10/04/2019 whole breast radiation with a lumpectomy cavity boost, total 50.04 Gy in 20 fra ction. - 12/06/2019 started adjuvant endocrine therapy with exemestane, ongoing. Olena Rider is well-known to our department for her history of multiple malignancies as outlined above. She was last seen at the completion of her breast radiation in late 2018. Recall that during the course of radiation treatment she developed an episode of hypertension, felt related to anastrozole. She subsequently initiated exemestane and to lerating well. -Olena continues to follow with Dr. Cota for her history of thyroid cancer. She underw ent a neck ultrasound on 12/06/2019 which demonstrated stable bilateral mildly prominent cervi seth nodes, without evidence of mass or progression. -Earlier this month she was admitted from 01/04/2020 01/06/2024 periorbital cellulitis of the left eye. Imaging during the admission included a CT of the orbits on 01/04/2020 which descr ibed the left preseptal periorbital soft tissue swelling and inflammation, no post septal in volvement. Incidentally identified a lobulated enhancing lesion at the right lateral ventri maria ines, recommending additional imaging. Preliminary differential including subependymoma. -She is scheduled for an MRI of the brain next week, as requested by Dr. Salazar. -Reports mild chronic headaches, may be slightly worsening over time. Has previously attri buted symptoms to her high levels of stress. No focal neurologic changes or vision changes. Medications Details acetaminophen 500 mg tablet Take [...] tablet Take 10 mg by mouth nightly. Allergies Allergen Reactions Morphine Anaphylaxis,Other (See Comments) Patient states she has had no issues with Dilaudid or oxycodone. Adhesive & Tape Rash Skin breakdown Metal (Nickel) Rash Skin breakdown Intolerance Allergen Reactions Morphine And Related Other (See Comments) "unknown reaction - trouble breathing after hysterectomy" Vitals: 01/17/20 1501 BP: 114/75 Pulse: 75 Resp: 14 Temp: 36.4 C (97.5 F) PainSc: 5 PainLoc: Head Physical Exam: General: Healthy appearing woman in no acute medical distress. KPS: 90 HEENT: Pupils equal, round and reactive to [...] Exam performed in the presence of a manager emergency. On upright exam breasts appear symm etric bilaterally with no contour abnormalities or malignant appearing skin changes. The ri ght breast demonstrates a well-healed surgical incision. On supine exam palpation of the ri ght breast demonstrates mild fibrosis at the site of prior lumpectomy. No discrete mass les ions are identified in either breast. There is no pain with palpation. No nipple changes. Labs: 01/05/2020 04:39 WBC 6.2 RBC 4.23 Total Hemoglobin 12.9 Hematocrit 39.0 MCV 92.2 MCH 30.5 MCHC 33.1 RDW-CV 12.5 RDW-SD 42.4 Platelet Count 283 MPV 10.1 % nRBC 0 Absolute nRBC 0.00 Na 139 K 4.0 Chloride 106 Carbon dioxide 25 Anion Gap 8 Glucose 99 BUN 12 Creatinine 0.87 BUN/Creatinine Ratio 13.8 eGFR, non- >60 Calcium 9.1 Magnesium 1.7 Imaging: Imaging studies were directly visualized and I agree with radiologist assessment of pertine nt finding: ENHANCED CT ORBITS 01/04/2020 10:52 AM 1. LEFT PRESEPTAL PERIORBITAL AND MALAR SOFT [...] Dictated and Signed by: Hugo Godfrey MD Assessment: ICD-10-CM ICD-9-CM 1. Primary malignant neoplasm of female breast (HCC) C50.919 174.9 Clinical history and exam do not demonstrate any evidence of gross disease recurrence. Rec ent imaging study incidentally identified an enhancing area in the brain, near the right lat eral ventricle. Further work-up with a MRI of the brain is pending. No specific associated symptoms however she notes headaches are worse recently. May also be related to significan t life stressors. She will continue to follow with Dr. Cota for thyroid cancer surveillance. We discussed o ngoing breast cancer surveillance with mammography due in May and at least twice a year giana ast exams. Lung cancer surveillance CT anticipated in the next few months, managed by Dr. Salazar. Plan: Plan: We will wait to schedule next follow up, based on MRI findings. Make sure to keep you r MRI appointment and we will be in touch. Mammogram due in May we will call to get you scheduled for this. Self Care: Continue to do daily massages to the right breast and axilla. No orders of the defined types were placed in this encounter. Thank you for allowing me to participate in the care of Olena Rider. If you should h ave any questions regarding this evaluation, please do not hesitate to contact me. Susie Montemayor M.D. Radiation Oncologist Department of Radiation Oncology [facility] Office: [phone] documented in this encounter Plan of Treatment +--------+ + + + + | Date | Type | Specialty | Care Team | Description | +--------+ + + + + | 08/12/ | Appointment | Oncology | Elmer Silva | | | 2019 | | | MD [address] | | | | | | [facility] [place] | | | | | | [id number] | | | | | | | | +--------+ + + + + | 08/12/ | Hospital | Infusion Therapy | Elmer Silva | | | 2019 | Encounter | | E, [address] | | | | | | [place] | | | | | | [address] | | | | | | | | +--------+ + + + + | 08/12/ | Appointment | Oncology | Lionel Benson | | | 2019 | | | J, PharmD [address] | | | | | | [address] [place] | | | | | | [place] [address] | | | | | | [phone] | | | | | | | | +--------+ + + + + | 08/19/ | Appointment | Oncology | Elmer Silva | | | 2019 | | | E, [address] | | | | | | [address] [place], [place] | | | | | | [address] | | | | | | | | +--------+ + + + + | 08/19/ | Appointment | Infusion Therapy | Elmer Silva | | | 2019 | | | MD Trip [address] | | | | | | [place] | | | | | | [address] | | | | | | | [...] [place] | | | | | | [address] | | | | | | | [...] [place] | | | | | | [address] | | | | | | | [...] [place] | | | | | | [address] | | | | | | | [...] [place] | | | | | | [address] | | | | | | | | +--------+ + + + + documented as of this encounter Visit Diagnoses + + | Diagnosis | + + | 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
--- OUTSIDE RECORDS SUMMARY | ~2020-08-08 | XMS | Encounter Summary ---
Demographics + + + | Address | [address] | | | [place] [address] | + + + | Home Phone [...] Author + + + | Author | [facility] | | | and [place] | + + + | Organization | [facility] | | [...] Team Providers + +------+ + | Care Junior Estimator Name | Role | Phone | + +------+ + | Zuleyka Martínez | PCP | | + +------+ + Encounter Details +--------+ + + + + | Date | Type | Department | Care Team | Description | +--------+ + + + + | 06/29/ | Orders Only | [facility] | FabianolindaSusie leon | Thyroid cancer (HCC) | | 2017 | | [facility] | MD Jared [address] | (Primary Dx) | | | | ONCOLOGY [address] [place], [place] | | | | | [place], | [address] | | | | | [place] [address] | | | | | | [phone] | | | +--------+ + + + [...] [place] | | | | | | [address] | | | | | | | | +--------+ + + + + | 08/12/ | Hospital | Infusion Therapy | Elmer Silva | | | 2019 | Encounter | | MD [address] | | | | | | [place] | | | | | | [address] | | | | | | | | +--------+ + + + + | 08/12/ | Appointment | Oncology | Lionel Benson | | | 2019 | | | [address] | | | | | | [address] [place] | | | | | | [place] [address] | | | | | | [phone] | | | | | | | | +--------+ + + + + | 08/19/ | Appointment | Oncology | Elmer Silva | | | 2019 | | | MD Trip [address] | | | | | | [place] | | | | | | [address] | | | | | | | | +--------+ + + + + | 08/19/ | Appointment | Infusion Therapy | Elmer Silva | | | 2019 | | | E, [address] | | | | | | [place], [place] | | | | | | [address] | | | | | | | [...] [place] | | | | | | [address] | | | | | | | [...] [place] | | | | | | [address] | | | | | | | [...] [place] | | | | | | [address] | | | | | | | [...] [place] | | | | | | [address] | | | | | | | | +--------+ + + + + documented as of this encounter Results Thyroglobulin,Reflex (12/09/2017 10:12 AM PST) + + [...] | Performed at: 01 - [facility], | REFERENCE LAB | | [place], [place] [id number] Cold Patcher: Jesus Chaves MD, | [facility] | | Phone: [phone] | | + + + + + + + + | Performing | Address | City/State/Zipcode | Phone Number | | Organization | | | | + + + + + | REFERENCE LAB | [address] | [place], [place] | [phone] | | [facility] | [address] | [address] | | + + + + + TSH (12/09/2017 10:12 AM PST) + + + + + + | Component | Value | Ref Range | Performed | Pathologist | | | | | At | Signature | + + + + + + | TSH | 0.14 (L)Comment: This is | 0.45 - 5.33 | [facility] | | | | a third generation TSH | uIU/mL | [facility] | | | | test. | | [...] + | [facility] | [address] | [place] | [phone] | | [facility] | | [address] | | | - LABORATORY | | | | + + + + + documented in this encounter Visit Diagnoses + + | Diagnosis | + + | Thyroid cancer (HCC) - Primary Malignant neoplasm of thyroid gland | + + documented in this encounter"
--- OUTSIDE RECORDS SUMMARY | ~2020-08-08 | XMS | Encounter Summary ---
Demographics + + + | Address | [address] | | | [place] [address] | + + + | Home Phone [...] Team Providers + +------+ + | Care Online Community Manager Name | Role | Phone | [...] + + | 01/22/ | Telephone | [facility] | Suise Montemayor | Patient Concerns | | 2020 | | MED CTR MEDICAL | MD Jared [address] | | | | | ONCOLOGY CLINIC [address] | [place], [place] | | | | | [facility] | [address] | | | | | [place] [address] | | | | | | [phone] | | | +--------+ + + + [...] - 01/23/2020 9 :08 AM PDTMichelle called [phone] She is really hoping for results of [...] [place] | | | | | | [address] | | | | | | | | +--------+ + + + + | 08/12/ | Hospital | Infusion Therapy | Elmer Silva | | | 2019 | Encounter | | E, [address] | | | | | | [place] | | | | | | [address] | | | | | | | | +--------+ + + + + | 08/12/ | Appointment | Oncology | Lionel Benson | | | 2019 | | | J, PharmCorky [address] | | | | | | [address] [place] | | | | | | [place] [address] | | | | | | [phone] | | | | | | | | +--------+ + + + + | 08/19/ | Appointment | Oncology | Elmer Silva | | | 2019 | | | E, [address] | | | | | | [place] | | | | | | [address] | | | | | | | | +--------+ + + + + | 08/19/ | Appointment | Infusion Therapy | Elmer Silva | | | 2019 | | | MD [address] | | | | | | [place] | | | | | | [address] | | | | | | | [...] [place] | | | | | | [address] | | | | | | | [...] [place] | | | | | | [address] | | | | | | | [...] [place] | | | | | | [address] | | | | | | | [...] [place] | | | | | | [address] | | | | | | | | +--------+ + + + + documented as of this encounter Visit Diagnoses Not on filedocumented in this encounter"
--- OUTSIDE RECORDS SUMMARY | ~2020-08-08 | XMS | Encounter Summary ---
Demographics + + + | Address | [address] | | | [place] [address] | + + + | Home Phone [...] + + + | Author | [facility] | | | and [place] | + + + | Organization | [facility] | | [...] Team Providers + +------+ + | Care House Designer Name | Role | Phone | [...] Exam | MED CTR EXTERNAL | MD [address] | | | | | IMAGING [address] | [address] | | | | | [address] [place] | [place] [address] | | | | | [place] [address] | | | | | | [phone] | | | +--------+ + + + [...] [place] | | | | | | [address] | | | | | | | | +--------+ + + + + | 08/12/ | Hospital | Infusion Therapy | Elmer Silva | | | 2019 | Encounter | | MD Lazaro Dominique | | | | | | [place] | | | | | | [address] | | | | | | | | +--------+ + + + + | 08/12/ | Appointment | Oncology | Lionel Benson | | | 2019 | | | Ze Unger [address] | | | | | | [address] | | | | | | [place] [address] | | | | | | [phone] | | | | | | | | +--------+ + + + + | 08/19/ | Appointment | Oncology | Elmer Silva | | | 2019 | | | E, [address] | | | | | | ST [place], [place] | | | | | | [address] | | | | | | | | +--------+ + + + + | 08/19/ | Appointment | Infusion Therapy | Elmer Silva | | | 2019 | | | E, [address] | | | | | | [place], [place] | | | | | | [address] | | | | | | | [...] [place] | | | | | | [address] | | | | | | | [...] [place] | | | | | | [address] | | | | | | | [...] [place] | | | | | | [address] | | | | | | | [...] [place] | | | | | | [address] | | | | | | | [...] encounter Results CT Head wo Contrast (02/27/2020 12:00 AM PDT) + + | Specimen [...]
--- OUTSIDE RECORDS SUMMARY | ~2020-08-08 | XMS | Encounter Summary ---
Demographics + + + | Address | [address] | | | [place] [address] | + + + | Home Phone [...] Author + + + | Author | [facility] | | | and [place] | + + + | Organization | [facility] | | [...] Team Providers + +------+ + | Care Steeple Jack Name | Role | Phone | + +------+ + | Zuleyka Martínez | PCP | | + +------+ + Reason for Visit + +--------+ + | Reason | Onset | Comments | | | Date | | + +--------+ + | Results, Imaging | 07/18/ | | | | 2020 | | + +--------+ + Encounter Details +--------+ + + + + | Date | Type | Department | Care Team | Description | +--------+ + + + + | 07/18/ | Telephone | [facility] | Susie Montemayor | Results, Imaging | | 2020 | | MED CTR RADIATION | MD Jared [address] | | | | | ONCOLOGY CLINIC [address] | ST [place], [place] | | | | | [facility] | [address] | | | | | [place] [address] | | | | | | [phone] | | | +--------+ + + + [...] encounter Miscellaneous Notes Telephone Encounter - Susie Montemayor MD - 07/18/2020 4:26 PM PDTCalled Olena ibrahim the MRI report. No answer, LM. Electronically signed by Susie Montemayor MD at 07/02 4:28 PM PDTdocumented in this encounter Plan of Treatment +--------+ + + + + | Date | Type | Specialty | Care Team | Description | +--------+ + + + + | 08/12/ | Appointment | Oncology | Elmer Silva | | | 2019 | | | MD Lazaro Dominique | | | | | | [place] | | | | | | [address] | | | | | | | | +--------+ + + + + | 08/12/ | Hospital | Infusion Therapy | Elmer Silva | | | 2019 | Encounter | | E, [address] | | | | | | ST [place] | | | | | | [address] | | | | | | | | +--------+ + + + + | 08/12/ | Appointment | Oncology | Lionel Benson | | | 2019 | | | J, PharmCorky [address] | | | | | | [address] [place] | | | | | | [place] [address] | | | | | | [phone] | | | | | | | | +--------+ + + + + | 08/19/ | Appointment | Oncology | Elmer Silva | | | 2019 | | | E, [address] | | | | | | ST [place], [place] | | | | | | [address] | | | | | | | | +--------+ + + + + | 08/19/ | Appointment | Infusion Therapy | Elmer Silva | | | 2019 | | | MD Lazaro Domin[address] | | | | | | [facility] [place] | | | | | | [address] | | | | | | | [...] [place] | | | | | | [address] | | | | | | | [...] [place] | | | | | | [address] | | | | | | | [...] [place] | | | | | | [address] | | | | | | | [...] [place] | | | | | | [address] | | | | | | | | +--------+ + + + + documented as of this encounter Visit Diagnoses Not on filedocumented in this encounter"
--- OUTSIDE RECORDS SUMMARY | ~2020-08-08 | XMS | Encounter Summary ---
Demographics + + + | Address | [address] | | | [place] [address] | + + + | Home Phone [...] Providers + +------+ + | Care Supervisor [place] Name | Role | Phone | + +------+ + | Zuleyka Martínez | PCP | | + +------+ + Encounter Details +--------+ + + + + | Date | Type | Department | Care Team | Description | +--------+ + + + + | 04/25/ | Hospital | [facility] | Zuleyka Cota, | Swelling of lymph | | 2018 | Encounter | MED CTR ULTRASOUND | MD [address] | nodes; Thyroid | | | | [address] [place] | [address] [place], | cancer (HCC) | | | | [place], [place] | [place] [address] | | | | | [address] | [phone] | | | | | [phone] | | | | | | | [...] [place] | | | | | | [address] | | | | | | | | +--------+ + + + + | 08/12/ | Hospital | Infusion Therapy | Elmer Silva | | | 2019 | Encounter | | EMD [address] | | | | | | [place] | | | | | | [address] | | | | | | | | +--------+ + + + + | 08/12/ | Appointment | Oncology | Lionel Benson | | | 2019 | | | Ze Unger [address] | | | | | | [address] | | | | | | [place] [address] | | | | | | [phone] | | | | | | | | +--------+ + + + + | 08/19/ | Appointment | Oncology | Elmer Silva | | | 2019 | | | E, [address] | | | | | | [place] | | | | | | [address] | | | | | | | | +--------+ + + + + | 08/19/ | Appointment | Infusion Therapy | Elmer Silva | | | 2019 | | | E, [address] | | | | | | [place] | | | | | | [address] | | | | | | | [...] [place] | | | | | | [address] | | | | | | | [...] [place] | | | | | | [address] | | | | | | | | +--------+ + + + + | 09/16/ | Appointment | Infusion Therapy | | | | 2019 | | | | | +--------+ + + + + | 09/23/ | Office | Oncology | Elmer Silva | | | 2019 | Visit | | EMD [address] | | | | | | [place] | | | | | | [address] | | | | | | | [...] | | | | | [place] | | | | | | [address] | | | | | | | [...] PHYSICIAN: Iftikhar Larios MD PATIENT NAME: MINNA | PR PATHOLOGY | | OLENA CREWS GENDER: F : 1960 SPECIMEN(S): A | [employer] | [...] preparation was | | | performed by [facility] [address] [place] | | | [place] [address] and [email or web address], [place] [address] | | | [place] [address]. Professional interpretation was performed | | | by [facility] - [facility] - [address] | | | [place] [address] (Immunohematologist: Eliezer Helm M.D.; | | | [facility]#:[id number]).8 Diagnostician: Mariza Mendoza M.S., | | | CT([facility]), [facility] Catalyst Manufacturing Operator Diagnostician: Eliezer Helm MD | | | [...]
--- OUTSIDE RECORDS SUMMARY | ~2020-08-08 | XMS | Encounter Summary ---
Demographics + + + | Address | [address] | | | [place] [address] | + + + | Home Phone [...] Team Providers + +------+ + | Care Ophthalmic Technologist Name | Role | Phone | + +------+ + | Zuleyka Martínez | PCP | | + +------+ + Reason for Visit + +--------+ + | Reason | Onset | Comments | | | Date | | + +--------+ + | IDT Note | 08/30/ | | | | 2019 | | + +--------+ + Encounter Details +--------+ + + + + | Date | Type | Department | Care Team | Description | +--------+ + + + + | 08/30/ | Telephone | [facility] | Azucena Ritchie, | [facility] Note | | 2018 | | MED CTR RADIATION | RN | | | | | ONCOLOGY CLINIC [address] | | | | | | [address] [place] | | | | | | [place] [address] | | | | | | [phone] | | | +--------+ + + + [...] Telephone Encounter - Azucena Ritchie RN - 08/30/2019 1:00 PM PDT [facility] Interdisciplinary Team Navigational Checklist ? Top Priority Discipline EPIC Order Entered Consult Scheduled Consult Complete Comments: x *Medical Oncology x *Radiation Oncology Dr. Albina Ruiz 08/29/19 x *Patient Navigation x *Nurse Navigator x *Social Service Survivorship Nurse Breast Health Genetics Surgical Input *Nursing assessment *Pharmacy assessment Nutrition Rehab: PT x OT Speech & Language Palliative Care Clinical Trials Involvement Patch Sander Visit Financial Assistance Interdisciplinary Consults Completed Date: [...] | | | | [place] | | | | | | [id number] | | | | | | | | +--------+ + + + + | 08/12/ | Hospital | Infusion Therapy | Elmer Silva | | | 2019 | Encounter | | E, [address] | | | | | | ST [place] | | | | | | [address] | | | | | | | | +--------+ + + + + | 08/12/ | Appointment | Oncology | Lionel Benson | | | 2019 | | | J, PharmCorky [address] | | | | | | [address] [place] | | | | | | [place] [address] | | | | | | [phone] | | | | | | | | +--------+ + + + + | 08/19/ | Appointment | Oncology | Elmer iSlva | | | 2019 | | | E, [address] | | | | | | ST [place] | | | | | | [address] | | | | | | | | +--------+ + + + + | 08/19/ | Appointment | Infusion Therapy | Elmer Silva | | | 2019 | | | MD Lazaro Dominique [address] | | | | | | ST [place] | | | | | | [address] | | | | | | | [...] [place] | | | | | | [address] | | | | | | | [...] [place] | | | | | | [address] | | | | | | | [...] [place] | | | | | | [address] | | | | | | | [...] [place] | | | | | | [address] | | | | | | | | +--------+ + + + + documented as of this encounter Visit Diagnoses Not on filedocumented in this encounter"
--- OUTSIDE RECORDS SUMMARY | ~2020-08-08 | XMS | Encounter Summary ---
Demographics + + + | Address | [address] | | | [place] [address] | + + + | Home Phone [...] Team Providers + +------+ + | Care Salesperson Shoes Name | Role | Phone | + +------+ + PCP | Unavailable | + +------+ + Encounter Details +--------+ + + + + | Date | Type | Department | Care Team | Description | +--------+ + + + + | 02/15/ | Hospital | [facility] | | | | 1999 | Encounter | MED CTR XRAY [address] | | | | | | [address] [place] | | | | | | [place] [address] | | | | | | [phone] | | | +--------+ + + + [...] [place] | | | | | | [address] | | | | | | | | +--------+ + + + + | 08/12/ | Hospital | Infusion Therapy | Elmer Silva | | | 2019 | Encounter | | MD Lazaro Dominique | | | | | | [place] | | | | | | [address] | | | | | | | | +--------+ + + + + | 08/12/ | Appointment | Oncology | Lionel Benson | | | 2019 | | | [address] | | | | | | [address] | | | | | | [place] [address] | | | | | | [phone] | | | | | | | | +--------+ + + + + | 08/19/ | Appointment | Oncology | Elmer Silva | | | 2019 | | | E, [address] | | | | | | [place] | | | | | | [address] | | | | | | | | +--------+ + + + + | 08/19/ | Appointment | Infusion Therapy | Elmer Silva | | | 2019 | | | E, MD [address] | | | | | | [place] | | | | | | [address] | | | | | | | [...] [place] | | | | | | [address] | | | | | | | [...] [place] | | | | | | [address] | | | | | | | [...] [place] | | | | | | [address] | | | | | | | [...] [place] | | | | | | [address] | | | | | | | | +--------+ + + + + documented as of this encounter Visit Diagnoses Not on filedocumented in this encounter"
--- OUTSIDE RECORDS SUMMARY | ~2020-08-08 | XMS | Encounter Summary ---
Demographics + + + | Address | [address] | | | [place] [address] | + + + | Home Phone [...] + + + | Author | [facility] | | | and [place] | + + + | Organization | [facility] | | [...] Team Providers + +------+ + | Care Cryptographic Center Specialist Name | Role | Phone | + +------+ + | Zuleyka Martínez | PCP | | + +------+ + Encounter Details +--------+ + + + + | Date | Type | Department | Care Team | Description | +--------+ + + + + | 11/20/ | Hospital | [facility] | Susie Montemayor | Lung nodule | | 2017 | Encounter | MED CTR PULMONARY | MD Jared [address] | | | | | FUNCTION [address] [place], [place] | | | | | [place], | [address] | | | | | [place] [address] | | | | | | [phone] | | | +--------+ + + + [...] + + documented as of this encounter Procedure Notes Mauricio Upton MD - 11/20/2016 4:05 PM PSTAssociated Order(s): PFT PULMONARY FUNCTION TESTING ORDERSProcedure(s): PFT PULMONARY FUNCTION TESTING ORDERSPre-Procedure Diagnose(s): Lung nodule PULMONARY FUNCTION TESTING SPIROMETRY: The FVC was 3.86 L or 103 % of predicted. The FEV1 was 2.94 L or 99 % of predic kelley. FEV1/FVC ratio was 76 %. LUNG VOLUMES: The total lung capacity was 6.42 L or 113 % of predicted. The residual volum e was 2.57 L or 124 % of predicted. RV/TLC ratio was 109 % of predicted. DIFFUSION CAPACITY: The diffusion capacity was 20.5 mL/mmHg per minute or 73 % of predicted . IMPRESSION: Spirometry is consistent with normal physiology. Lung volume testing is consist ent with borderline gas trapping physiology. Diffusion capacity is mildly reduced and is cor rected for measured hemoglobin. No prior pulmonary function tests available for comparison. Test performed: 11/20/16 Electronically signed by: Mauricio Upton MD 11/20/2016 16:05 [facility]ronically signed by Mauricio Upton MD at 4:07 PM PSTdocumented in this encounter Plan of Treatment +--------+ + + + + | Date | Type | Specialty | Care Team | Description | +--------+ + + + + | 08/12/ | Appointment | Oncology | Elmer Silva | | 2019 | | | MD Lazaro Dominique | | | | | | [place] | | | | | | [phone] | | | | | | | | +--------+ + + + + | 08/12/ | Hospital | Infusion Therapy | Elmer Silva | | 2019 | Encounter | | MD Lazaro Dominique | | | | | | [place] | | | | | | [address] | | | | | | | | +--------+ + + + + | 08/12/ | Appointment | Oncology | Lionel Benson | | | 2019 | | | J, PharmCorky [address] | | | | | | [address] [place] | | | | | | [place] [address] | | | | | | [phone] | | | | | | | | +--------+ + + + + | 08/19/ | Appointment | Oncology | Elmer Silva | | | 2019 | | | E, [address] | | | | | | ST [place] | | | | | | [address] | | | | | | | | +--------+ + + + + | 08/19/ | Appointment | Infusion Therapy | Elmer Silva | | | 2019 | | | E, [address] | | | | | | [address] [place] | | | | | | [address] | | | | | | | [...] [place] | | | | | | [address] | | | | | | | [...] [place] | | | | | | [address] [...] [place] | | | | | | [address] | | | | | | | [...] [place] | | | | | | [address] | | | | | | | | +--------+ + + + + documented as of this encounter Procedures + +--------+ + + + | Procedure Name | Priori | Date/Time | Associated Diagnosis | Comments | | | ty | | | | + +--------+ + + + | PFT PULMONARY | [place] | 11/20/2016 | Lung nodule | Results for this | | FUNCTION TESTING | | 4:07 PM | | procedure are in the | | ORDERS | | PST | | results section. | + +--------+ + + + | PFT PULMONARY | [place] | 11/20/2016 | Lung nodule | Results for this | | FUNCTION TESTING | | 4:07 PM | | procedure are in the | | ORDERS | | PST | | results section. | + +--------+ + + + | PFT PULMONARY | [place] | 11/20/2016 | Lung nodule | Results for this | | FUNCTION TESTING | | 4:07 PM | | procedure are in the | | ORDERS | | PST | | results section. | + +--------+ + + + | PFT PULMONARY | [place] | 11/20/2016 | Lung nodule | Results for this | | FUNCTION TESTING | | 4:07 PM | | procedure are in the | | ORDERS | | PST | | results section. | + +--------+ + + + documented in this encounter Results Pulmonary function test full [...] Mauricio Upton MD [facility]20[facility]2016 | | [facility] | | | | | |IMPRESSION: [...] Mauricio Upton MD 11/20/2016 16:05 | | |[facility] | | + + + documented in this encounter Visit Diagnoses + + | Diagnosis | + + | Lung nodule Solitary pulmonary nodule | + + documented in this encounter"
--- OUTSIDE RECORDS SUMMARY | ~2020-08-08 | XMS | Encounter Summary ---
Demographics + + + | Address | [address] | | | [place] [address] | + + + | Home Phone [...] Team Providers + +------+ + | Care Co Pilot Name | Role | Phone | + +------+ + | Zuleyak Martínez | PCP | | + +------+ + Encounter Details +--------+ + + + + | Date | Type | Department | Care Team | Description | +--------+ + + + + | 07/25/ | Orders Only | [facility] | Riccardokyree Elmer | | | 2019 | | MED CTR MEDICAL | MD Trip [address] | | | | | ONCOLOGY CLINIC [address] | [place], [place] | | | | | [place] | [address] | | | | | [facility] [place] [address] | | | | | | [phone] | | | +--------+ + + + [...] [place] | | | | | | [address] | | | | | | | | +--------+ + + + + | 08/12/ | Hospital | Infusion Therapy | Elmer Silva | | | 2019 | Encounter | | MD Lazaro Dominique | | | | | | [place] | | | | | | [address] | | | | | | | | +--------+ + + + + | 08/12/ | Appointment | Oncology | Lionel Benson | | 2019 | | | Ze Unger [address] | | | | | | [address] [place] | | | | | | [place] [address] | | | | | | [phone] | | | | | | | | +--------+ + + + + | 08/19/ | Appointment | Oncology | Elmer Silva | | | 2019 | | | E, [address] | | | | | | ST [place], [place] | | | | | | [address] | | | | | | | | +--------+ + + + + | 08/19/ | Appointment | Infusion Therapy | Elmer Silva | | | 2019 | | | E, [address] | | | | | | ST [place], [place] | | | | | | [address] | | | | | | | [...] [place] | | | | | | [address] | | | | | | | [...] [place] | | | | | | [address] | | | | | | | [...] [place] | | | | | | [address] | | | | | | | [...] [place] | | | | | | [address] | | | | | | | | +--------+ + + + + documented as of this encounter Visit Diagnoses Not on filedocumented in this encounter"
--- OUTSIDE RECORDS SUMMARY | ~2020-08-08 | XMS | Encounter Summary ---
Demographics + + + | Address | [address] | | | [place] [address] | + + + | Home Phone [...] Author + + + | Author | [facility] | | | and [place] | + + + | Organization | [facility] | | | and [...] Team Providers + +------+ + | Care Nursing Services Manager Name | Role | Phone [...] | | Non-small | Salazar, | [address] [place] | | | | | cell cancer | Milton | [place], | | | | | of right | MD [place] | [place] [address] | | | | | lung (HCC) | [address] | Phone: | | | | | Procedures | ST [place] | [phone] | | | | | CT Chest w | [place] | Fax: | | | | | Contrast | [address] | [phone] | | | | | | Phone: | | | | | | | [phone] | | | | | | | Fax: | | | | | | | [phone] | | +--------+--------+ + + + + Encounter Details +--------+ + + + + | Date | Type | Department | Care Team | Description | +--------+ + + + + | 05/31/ | Hospital | [facility] | Milton Salazar | 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 [address] | Abnormal stress ECG | | | | [place] [address] | [phone] | with treadmill; | | | | [phone] | | Malignant neoplasm | | | [...] | | 7 | | | Dr. oMn | | | | | + + [...] erent from the original. Hem-Onc Progress Note [facility] Pt. Name/Age/: Olena Rider 56 y.o. 1960 Med. Record Number: [id number] Date of admission: 05/31/2017 Assessment and plan: [...] in to see Dr Maximiliano Mon at [facility]. She is scheduled for repeat staging evaluation [...] Electronically signed by: Milton Salazar, 05/31/2017 10:29 [facility] TIME SPENT 20 MIN. > 50% AT BEDSIDE, WITH FAMILY/PATIENT IN CARE AND CLINICAL SUPERVISOR ON UNIT AND CO ORDINATION OF CARE Portions of this chart may have been created with [employer] voice recognition software. Occasi onal wrong-word or sound-alike substitutions may have occurred due to the inherent cervantes itations of voice recognition software. Please read the chart carefully and recognize, using context, where these substitutions have occurred. Amanda Wagner [facility] - 05/31/2017 9:37 AM PDTREVIEW O F [...] [place] | | | | | | [address] | | | | | | | | +--------+ + + + + | 08/12/ | Hospital | Infusion Therapy | Elmer Silva | | | 2019 | Encounter | | MD Trip [address] | | | | | | ST [place], [place] | | | | | | [address] | | | | | | | | +--------+ + + + + | 08/12/ | Appointment | Oncology | Lionel Benson | | | 2019 | | | Cornel PharmCorky [address] | | | | | | [address] [place] | | | | | | [place] [address] | | | | | | [phone] | | | | | | | | +--------+ + + + + | 08/19/ | Appointment | Oncology | Elmer Silva | | 2019 | | | MD Trip [address] | | | | | | ST [place], [place] | | | | | | [address] | | | | | | | | +--------+ + + + + | 08/19/ | Appointment | Infusion Therapy | Elmer Silva | | | 2019 | | | MD Lazaro Dominique [address] | | | | | | [place] | | | | | | [address] | | | | | | | [...] [place] | | | | | | [address] | | | | | | | [...] [place] | | | | | | [address] | | | | | | | [...] [place] | | | | | | [address] | | | | | | | [...] | | | | | | [place], [place] | | | | | | [address] | | | | | | | [...] + | [facility] [address] | [address] | [place] | [phone] | | [facility] | | [address] | | | - LABORATORY | | [...] | | | | | mg/dL | [facility] | | | | | | MEDICAL | | | | | | CENTER - | | | | | | LABORATORY | | + + + + + + | eGFR, | >60Comment: GLOMERULAR | >=60 | [facility] | | | non- | FILTRATION | mL/min/1.73m2 | [facility] | | | Yemeni | RATE,ESTIMATED | | MEDICAL | | | | mL/min/1.38x1Mltg than | | CENTER - | | [...] | | | | | mg/dL | [facility] | | | | | | [...] + | [facility] | [address] | [place] | [phone] | | [facility] | | [address] | | | - LABORATORY | | [...] [address] | [place] | [phone] | | [facility] | | [address] | | | - LABORATORY | | [...]
--- OUTSIDE RECORDS SUMMARY | ~2020-08-08 | XMS | Encounter Summary ---
Demographics + + + | Address | [address] | | | [place] [address] | + + + | Home Phone [...] Providers + +------+ + | Care Site Coordinator Name | Role | Phone | + +------+ + | Zuleyka Martínez | PCP | | + +------+ + Reason for Visit + +--------+ + | Reason | Onset | Comments | | | Date | | + +--------+ + | Appointment | 02/18/ | pre-op visit via telephone | | | 2020 | | + +--------+ + Encounter Details +--------+ + + + + | Date | Type | Department | Care Team | Description | +--------+ + + + + | 02/18/ | Telephone | [facility] | Grisel Villa, | Appointment (pre-op | | 2019 | | [facility] | RN | visit via telephone) | | | | [facility] | | | | | | [address] | | | | | | [place] | | | | | | [address] | | | | | | [phone] | | | +--------+ + + + [...] Telephone Encounter - Grisel Villa RN - 02/19/2020 10:09 AM PDTCalled patient for pre-o p visit over the phone. P DTdocumented in this encounter Plan of [...] [place] | | | | | | [address] | | | | | | | | +--------+ + + + + | 08/12/ | Hospital | Infusion Therapy | Elmer Silva | | | 2019 | Encounter | | E, [address] | | | | | | [address] [place], [place] | | | | | | [address] | | | | | | | | +--------+ + + + + | 08/12/ | Appointment | Oncology | Lionel Benson | | | 2019 | | | [address] | | | | | [address] [place] | | | | | | [place] [address] | | | | | | [phone] | | | | | | | | +--------+ + + + + | 08/19/ | Appointment | Oncology | Elmer Silva | | | 2019 | | | E, [address] | | | | | | [place], [place] | | | | | | [address] | | | | | | | | +--------+ + + + + | 08/19/ | Appointment | Infusion Therapy | Elmer Silva | | 2019 | | | MD [address] | | | | | | [place] | | | | | | [address] | | | | | | | [...] [place] | | | | | | [address] | | | | | | | [...] [place] | | | | | | [id number] | | | | | | | [...] [place] | | | | | | [address] | | | | | | | [...] [place] | | | | | | [address] | | | | | | | | +--------+ + + + + documented as of this encounter Visit Diagnoses Not on filedocumented in this encounter"
--- OUTSIDE RECORDS SUMMARY | ~2020-08-08 | XMS | Encounter Summary ---
Demographics + + + | Address | [address] | | | [place] [address] | + + + | Home Phone [...] Team Providers + +------+ + | Care Patient Support Tech Name | Role | Phone | + [...] Closed | | Radiology | Diagnoses | Angel, | [address] | | | | | | Tien Nuno MD | [address] [place] | | | | | Pneumothorax | [address] | [place], | | | | | after | [address] | [place] [address] | | | | | biopsy | [place], | Phone: | | | | | Procedures | [place] [address] | [phone] | | | | | CT Guided | Phone: | Fax: | | | | | Thoracentesi | [phone] | [phone] | | | | | s w Tube | Fax: | | | | | | Insert | [phone] | | +--------+--------+ + + + + Encounter Details +--------+ + + + + | Date | Type | Department | Care Team | Description | +--------+ + + + + | 11/04/ | Transcribed | [facility] | Tien Angel, | Pneumothorax after | | 2017 | Orders | [facility] [address] | MD [address] | biopsy (Primary Dx) | | | | [place], | [place], [place] | | | | | [place] [address] | [address] | | | | | [phone] | | | +--------+ + + + [...] [place] | | | | | | [address] | | | | | | | | +--------+ + + + + | 08/12/ | Hospital | Infusion Therapy | Elmer Silva | | | 2019 | Encounter | | E, [address] | | | | | | [place] | | | | | | [address] | | | | | | | | +--------+ + + + + | 08/12/ | Appointment | Oncology | Lionel Benson | | | 2019 | | | JZe [address] | | | | | | [address] [place] | | | | | | [place] [address] | | | | | | [phone] | | | | | | | | +--------+ + + + + | 08/19/ | Appointment | Oncology | Elmer Silva | | | 2019 | | | E, [address] | | | | | | ST [place], [place] | | | | | | [address] | | | | | | | | +--------+ + + + + | 08/19/ | Appointment | Infusion Therapy | Elmer Silva | | | 2019 | | | E, [address] | | | | | | ST [place], [place] | | | | | | [address] | | | | | | | [...] [place] | | | | | | [address] | | | | | | | [...] [place] | | | | | | [address] | | | | | | | [...] [place] | | | | | | [address] | | | | | | | [...] | | | | | | ST [place], [place] | | | | | | [address] | | | | | | | | +--------+ + + + + + +---------+--------+ + + | Name | Type | Priori | Associated Diagnoses | Order Schedule | | | | ty | | | + +---------+--------+ + + | CT Guided | Imaging | Routin | Pneumothorax after | Expected: | | Thoracentesis w Tube | | e | biopsy | 11/04/2016, Expires: | | Insert | | | | 11/04/2017 | + +---------+--------+ + + documented as of this encounter Visit Diagnoses + + | Diagnosis | + + | Pneumothorax after biopsy - Primary Iatrogenic pneumothorax | + + documented in this encounter"
--- OUTSIDE RECORDS SUMMARY | ~2020-08-08 | XMS | Encounter Summary ---
Demographics + + + | Address | [address] | | | [place] [address] | + + + | Home Phone | | + + + | Preferred Language | Unknown | + + + | Marital Status | Single | + + + | Druze Affiliation | Unknown | + + + [...] Providers + +------+ + | Care Manager Shop Name | Role | Phone | + [...] 2018 | | [facility] | [facility] | | | | | [facility] [address] | | | | | | [address] | | | | | | [place] [address] | | | | | | [phone] | | | +--------+ + + + [...] [place] | | | | | | [address] | | | | | | | | +--------+ + + + + | 08/12/ | Hospital | Infusion Therapy | Elmer Silva | | | 2019 | Encounter | | E, [address] | | | | | | [place] | | | | | | [address] | | | | | | | | +--------+ + + + + | 08/12/ | Appointment | Oncology | Lionel Benson | | | 2019 | | | Ze Unger [address] | | | | | | [address] | | | | | | [place] [address] | | | | | | [phone] | | | | | | | | +--------+ + + + + | 08/19/ | Appointment | Oncology | Elmer Silva | | | 2019 | | | E, [address] | | | | | | ST [place], [place] | | | | | | [address] | | | | | | | | +--------+ + + + + | 08/19/ | Appointment | Infusion Therapy | Elmer Silva | | | 2019 | | | E, [address] | | | | | | [place] | | | | | | [address] | | | | | | | [...] [place] | | | | | | [address] | | | | | | | | +--------+ + + + + | 09/09/ | Appointment | Infusion Therapy | | | | 2020 | | | | | +--------+ + + + + | 09/16/ | Office | Oncology | Elmer Silva | | | 2019 | Visit | | Trip, MD Lazaro Morales [address] | | | | | | [place] | | | | | | [address] | | | | | | | | +--------+ + + + + | 09/16/ | Appointment | Infusion Therapy | | | | 2019 | | | | | +--------+ + + + + | 09/23/ | Office | Oncology | Elmer Silva | | | 2019 | Visit | | E, MD [address] | | | | | | [place] | | | | | | [address] | | | | | | | [...] [place] | | | | | | [address] | | | | | | | | +--------+ + + + + documented as of this encounter Visit Diagnoses Not on filedocumented in this encounter"
--- OUTSIDE RECORDS SUMMARY | ~2020-08-08 | XMS | Encounter Summary ---
Demographics + + + | Address | [address] | | | [place] [address] | + + + | Home Phone [...] Team Providers + +------+ + | Care Ccnp Name | Role | Phone | + [...] | gland (HCC) | [place], | [place], [place] | | | | | | [place] [address] | [address] | | | | | | Phone: | Phone: | | | | | | [phone] | [phone] | | | | | | Fax: | Fax: | | | | | | [phone] | [phone] | +--------+ + + + + + [...] | nodule | MD Willis [address] | [facility], | | | | | Procedures | [address] | [place] [address] | | | | | CT Guided | [place], | Phone: | | | | | Biopsy Lung | [place] [address] | [phone] | | | | | Or | Phone: | Fax: | | | | | Mediastinum | [phone] | [phone] | | | | | | Fax: | | | | | | | [phone] | | +--------+--------+ + + + + Encounter Details +--------+ + + + + | Date | Type | Department | Care Team | Description | +--------+ + + + + | 10/27/ | Hospital | [facility] | Susie Montemayor | Pulmonary nodule | | 2016 | Encounter | MED [facility] RAD[facility]ATION | MD Lazaro Coleman [address] | (Primary Dx); | | | | ONCOLOGY [address] | [address] [place], [place] | Malignant neoplasm | | | | [place], | [address] | of thyroid gland | | | | [place] [address] | | (HCC) | | | | [phone] | | | +--------+ + + + [...] Susie Walker MD - 10/27/2016 12:00 AM [facility] Radiation Oncology Follow-up Note PATIENT: Smitha Rider MR#: [id number] :1960 DOS:10/27/2016 ICD/Diagnosis: C73 - Malignant neoplasm [...] was reviewed with Radio logy here at [facility] and it was felt that [...] t o Dr. Coles, endocrinology to establish custodial follow-up. Thank you for allowing me to participate in the care of Smitha Rider. If you should have any questions regarding this evaluation, please do not hesitate to contact me. Susie Vargas M.D. Radiation Oncologist Department of Radiation Oncology [facility] Electronically signed by Susie Walker M.D CC: Doris Stanford M.D. This note was transcribed using [employer] speech recognition software. As a result, there ma y be unintended for medical and/or spelling errors. Every attempt is made to correct dicta tion. If there are any questions or errors please contact our office. CSN: [id number] signed by Susie Walker MD at 11/02/2016 [...] [place] | | | | | | [address] | | | | | | | | +--------+ + + + + | 08/12/ | Hospital | Infusion Therapy | Elmer Silva | | | 2019 | Encounter | | E, MD [address] | | | | | | ST [place], [place] | | | | | | [address] | | | | | | | | +--------+ + + + + | 08/12/ | Appointment | Oncology | Lionel Benson | | | 2019 | | | Ze Unger [address] | | | | | | [address] [place] | | | | | | [place] [address] | | | | | | [phone] | | | | | | | | +--------+ + + + + | 08/19/ | Appointment | Oncology | Elmer Silva | | | 2019 | | | E, [address] | | | | | | [place] | | | | | | [address] | | | | | | | | +--------+ + + + + | 08/19/ | Appointment | Infusion Therapy | Elmer Silva | | | 2019 | | | E, [address] | | | | | | [place] | | | | | | [address] | | | | | | | [...] [place] | | | | | | [address] | | | | | | | [...] [place] | | | | | | [address] | | | | | | | [...] [place] | | | | | | [address] | | | | | | | [...] | | | | | | ST [place], [place] | | | | | | [address] | | | | | | | [...] performed through the introducer with an 18-gauge Apalya biopsy | | | gun, producing small [...] rajinder was made to | | accommodate [id number]-[id number] introducer needle, which was advanced to the margin of the | | nodulewithout difficulty utilizing CT guidance, and an intercostal PA approach. | | Fivecore biopsies of the nodule were performed through the introducer with [id number] | | Biopince biopsy gun, producing small [...]
--- OUTSIDE RECORDS SUMMARY | ~2020-08-08 | XMS | Encounter Summary ---
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 [address] | [place], | | | | | ma of brain | [address] | [place] [address] | | | | | (HCC) | [place], | Phone: | | | | | Procedures | [place] [address] | [phone] | | | | | CT Treatment | Phone: | Fax: | | | | | Plan | [phone] | [phone] | | | | | Complex | Fax: | | | | | | | [phone] | | +--------+--------+ + + + + Reason for Visit + +--------+ + | Reason | Onset | Comments | | | Date | | + +--------+ + | Results, Imaging | 07/19/ | | | | 2019 | | + +--------+ + Encounter Details +--------+ + + + + | Date | Type | Department | Care Team | Description | +--------+ + + + + | 07/19/ | Telephone | [facility] | Susie Montemayor | Results, Imaging | | 2020 | | MED CTR RADIATION | MD Jared [address] | | | | | ONCOLOGY CLINIC [address] | [place], [place] | | | | | [facility] | [address] | | | | | [place] [address] | | | | | | [phone] | | | +--------+ + + + [...] Telephone Encounter - Susie Montemayor MD - 07/19/2020 8:20 AM PDTNotified Olena gonzalez Adry of MRI results showing multiple now metastatic lesions and a pattern consistent with leptomeningeal spread along nerve roots. Correlating with her clinical symptom of facial dr oop. No new symptoms today. Continued severe right arm radiculopathy. C-spine MRI changed to add on today. Started Dexamethasone. Plan for CT simulation to start whole brain radiation on Wednesday and possibly cervical spine coverage as well pending MRI findings. documented in this encounter Plan of Treatment +--------+ + + + + | Date | Type | Specialty | Care Team | Description | +--------+ + + + + | 08/12/ | Appointment | Oncology | Elmer Silva | | 2019 | | | MD Lazaro Dominique [address] | | | | | | [facility] [place] | | | | | | [phone] | | | | | | | | +--------+ + + + + | 08/12/ | Hospital | Infusion Therapy | Elmer Silva | | | 2019 | Encounter | | E, [address] | | | | | | ST [place], [place] | | | | | | [address] | | | | | | | | +--------+ + + + + | 08/12/ | Appointment | Oncology | Lionel Benson | | | 2019 | | | J, PharmCorky [address] | | | | | | [place] [place] | | | | | | [place] [address] | | | | | | [phone] | | | | | | | | +--------+ + + + + | 08/19/ | Appointment | Oncology | Elmer Silva | | | 2019 | | | E, [address] | | | | | | ST [place], [place] | | | | | | [address] | | | | | | | | +--------+ + + + + | 08/19/ | Appointment | Infusion Therapy | Elmer Silva | | | 2019 | | | MD Lazaro Dominique [address] | | | | | | ST [place] | | | | | | [address] | | | | | | | [...] [place] | | | | | | [address] | | | | | | | [...] [place] | | | | | | [address] | | | | | | | [...] [place] | | | | | | [address] | | | | | | | | +--------+ + + + + | 09/23/ | Appointment | Infusion Therapy | | | | 2019 | | | | | +--------+ + + + + | 11/22/ | Appointment | Radiation Oncology | Susie Montemayor | | | 2020 | | | MD Lazaro Cloeman | | | | | | [place] | | | | | | [address] | | | | | | | [...]
--- OUTSIDE RECORDS SUMMARY | ~2020-08-08 | XMS | Encounter Summary ---
Demographics + + + | Address | [address] | | | [place] [address] | + + + | Home Phone [...] Team Providers + +------+ + | Care Sticker Machine Operator Name | Role | Phone | [...] | | | neoplasm of | [place] [address] | Medicine [address] | | | | | unspecified | [address] | [address] | | | | | part of | [place], [place] | [address] | | | | | unspecified | [address] | [place], [place] | | | | | bronchus or | Phone: | [address] | | | | | lung (HCC) | [phone] | Phone: | | | | | Malignant | Fax: | [phone] | | | | | neoplasm of | [phone] | Fax: | | | | | female | | [phone] | | | | | breast, | [...] | | | neoplasm of | [place] [address] | Medicine [address] | | | | | unspecified | [address] | [address] | | | | | part of | [place], [place] | [address] | | | | | unspecified | [address] | [place], [place] | | | | | bronchus or | Phone: | [address] | | | | | lung (HCC) | [phone] | Phone: | | | | | Malignant | Fax: | [phone] | | | | | neoplasm of | [phone] | Fax: | | | | | female | | [phone] | | | | | breast, | [...] + + | 02/05/ | Hospital | [facility] | Martínez, | Malignant neoplasm | | 2020 | Encounter | [facility] | [place] [address] | of unspecified part | | | | MEDICINE [address] | [address] [place], | of unspecified | | | | [address] | [place] [address] | bronchus or lung | | | | [place], [place] | [phone] | (HCC); Malignant | | | | [address] | | neoplasm of female | | | | [phone] | | breast, unspecified | | | [...] [place] | | | | | | [address] | | | | | | | | +--------+ + + + + | 08/12/ | Hospital | Infusion Therapy | Elmer Silva | | 2019 | Encounter | | MD Lazaro Dominique | | | | | | [place] | | | | | | [address] | | | | | | | | +--------+ + + + + | 08/12/ | Appointment | Oncology | Lionel Benson | | | 2019 | | | JZe [address] | | | | | | [address] [place] | | | | | | [place] [address] | | | | | | [phone] | | | | | | | | +--------+ + + + + | 08/19/ | Appointment | Oncology | Elmer Silva | | | 2019 | | | E, [address] | | | | | | ST [place] | | | | | | [address] | | | | | | | | +--------+ + + + + | 08/19/ | Appointment | Infusion Therapy | Elmer Silva | | | 2019 | | | E, [address] | | | | | | ST [place], [place] | | | | | | [address] | | | | | | | [...] [place] | | | | | | [address] | | | | | | | [...] [place] | | | | | | [address] | | | | | | | [...] [place] | | | | | | [address] | | | | | | | [...] [place] | | | | | | [address] | | | | | | | [...] mm left inguinal lymph node 260, SUV | | | 1.7, previously 12 [...] 2.4. New medial left apical strandy change /95 measuring 12 x 3 | | | [...] | New medial left apical strandy change /95 measuring 12 x 3 mm, without | [...] x 4 mm left inguinal lymph node , SUV 1.7, previously 12 x 7 | [...] | | | | Signed by: Russ Flores Shawn | | Sign Date/Time: 02/07/2020 8:15 AM [...] | | | POC | performed at [facility];[address] | | LABORATORY | | | | [address];[place] | | | | | | [address] | | | | + + + + + + + + | Specimen | + + | | + + + + + + + | Performing | Address | City/State/Zipcode | Phone Number | | Organization | | | | + + + + + | [facility] | [address] | [place] [address] | [phone] | + + + + + documented [...]
--- OUTSIDE RECORDS SUMMARY | ~2020-08-08 | XMS | Encounter Summary ---
Demographics + + + | Address | [address] | | | [place] [address] | + + + | Home Phone [...] Team Providers + +------+ + | Care Hand Gluer And Slicer Name | Role | Phone | + [...] CTR RADIATION | MD Jared [address] | | | | | ONCOLOGY CLINIC [address] | [place], [place] | | | | | [facility] | [address] | | | | | [place] [address] | | | | | | [phone] | | | +--------+ + + + [...] | | 2020 | | | E, MD [address] | | | | | | ST [place], [place] | | | | | | [address] | | | | | | | | +--------+ + + + + | 08/12/ | Hospital | Infusion Therapy | Elmer Silva | | | 2019 | Encounter | | E, [address] | | | | | | ST [place], [place] | | | | | | [address] | | | | | | | | +--------+ + + + + | 08/12/ | Appointment | Oncology | Lionel Benson | | | 2019 | | | J, PharmD [address] | | | | | | [address] [place] | | | | | | [place] [address] | | | | | | [phone] | | | | | | | | +--------+ + + + + | 08/19/ | Appointment | Oncology | Elmer Silva | | 2019 | | | E, [address] | | | | | | ST [place], [place] | | | | | | [address] | | | | | | | | +--------+ + + + + | 08/19/ | Appointment | Infusion Therapy | Elmer Silva | | | 2019 | | | MD Lazaro Dominique [address] | | | | | | [place] | | | | | | [address] | | | | | | | [...] [place] | | | | | | [address] | | | | | | | [...] [place] | | | | | | [address] | | | | | | | [...] [place] | | | | | | [address] | | | | | | | [...] [place] | | | | | | [address] | | | | | | | | +--------+ + + + + documented as of this encounter Visit Diagnoses Not on filedocumented in this encounter"
--- OUTSIDE RECORDS SUMMARY | ~2020-08-08 | XMS | Encounter Summary ---
Demographics + + + | Address | [address] | | | [place] [address] | + + + | Home Phone [...] Team Providers + +------+ + | Care Rubber Tester Name | Role | Phone | + +------+ + | Zuleyka Martínez | PCP | | + +------+ + Encounter Details +--------+ + + + + | Date | Type | Department | Care Team | Description | +--------+ + + + + | 08/08/ | Documentati | [facility] | Bernice Novoa | | | 2019 | on | MED CTR MEDICAL | J, RN | | | | | ONCOLOGY CLINIC [address] | | | | | | [address] | | | | | | [place] [address] | | | | | | [phone] | | | +--------+ + + + [...] documented as of this encounter Progress Notes Bernice Novoa RN - 08/08/2019 2:18 PM Cornelia came early for her appt with Dr. Salazar so she could spend time with me for support and new diagnosis education. I provi ded my contact information and the [facility] answers breast cancer booklet. Olena reports her distress related to her diagnosis today is about 5/10. She feels more anxiety re: her sist er's current treatment for stage III triple negative breast cancer. 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 Her three adult children live nearby to her. 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 We re viewed how cancer grows and spreads and the possible role of genetic mutation. She looks fo rward to talking with Dr. Salazar about this and with meeting with the genetic coordinato nemesio. She says "if this is genetic then maybe we should just take them off and be done with it ". We discussed the multiple treatment modalities for breast cancer that can include surger y, chemo, radiation and hormone therapy. Olena is concerned about upcoming treatments an d her work schedule as she's recently used her 12 weeks of FMLA and doesn't have available P TO. documented in t his encounter Plan of Treatment +--------+ + + + + | Date | Type | Specialty | Care Team | Description | +--------+ + + + + | 08/12/ | Appointment | Oncology | Elmer Silva | | | 2019 | | | MD Lazaro Dominique [address] | | | | | | [place], [place] | | | | | | [id number] | | | | | | | | +--------+ + + + + | 08/12/ | Hospital | Infusion Therapy | Elmer Silva | | | 2019 | Encounter | | E, [address] | | | | | | [place], [place] | | | | | | [address] | | | | | | | | +--------+ + + + + | 08/12/ | Appointment | Oncology | Lionel Benson | | | 2019 | | | JZe [address] | | | | | | [address] [place] | | | | | | [place] [address] | | | | | | [phone] | | | | | | | | +--------+ + + + + | 08/19/ | Appointment | Oncology | Elmer Silva | | | 2019 | | | E, [address] | | | | | | ST [place], [place] | | | | | | [address] | | | | | | | | +--------+ + + + + | 08/19/ | Appointment | Infusion Therapy | Elmer Silva | | | 2019 | | | MD Lazaro Dominique [address] | | | | | | [place] | | | | | | [address] | | | | | | | [...] [place] | | | | | | [address] | | | | | | | [...] [place] | | | | | | [address] | | | | | | | | +--------+ + + + + | 09/16/ | Appointment | Infusion Therapy | | | 2019 | | | | | +--------+ + + + + | 09/23/ | Office | Oncology | Emler Silva | | | 2019 | Visit | | MD Lazaro Dominique | | | | | | [place] | | | | | | [address] | | | | | | | [...] [place] | | | | | | [address] | | | | | | | | +--------+ + + + + documented as of this encounter Visit Diagnoses Not on filedocumented in this encounter
--- OUTSIDE RECORDS SUMMARY | ~2020-08-08 | XMS | Encounter Summary ---
Demographics + + + | Address | [address] | | | [place] [address] | + + + | Home Phone [...] Author + + + | Author | [facility] | | | and [place] | + + + | Organization | [facility] | | | [...] Team Providers + +------+ + | Care Stoker Erector Name | Role | Phone | + [...] | | Non-small | Salazar, | [address] [place] | | | | | cell cancer | [place] | [place], | | | | | of right | MD [place] | [place] [address] | | | | | lung (HCC) | [address] | Phone: | | | | | Procedures | [address] [place] | [phone] | | | | | CT Chest w | [place] | Fax: | | | | | Contrast | [address] | [phone] | | | | | | Phone: | | | | | | | [phone] | | | | | | | Fax: | | | | | | | [phone] | | +--------+--------+ + + + + [...] | | Non-small | Marie | [address] | | | | | cell cancer | [place] | [place], | | | | | of right | MD [place] | [place] [address] | | | | | lung (HCC) | [address] | Phone: | | | | | Procedures | [address] [place] | [phone] | | | | | CT Chest w | [place] | Fax: | | | | | Contrast | [address] | [phone] | | | | | | Phone: | | | | | | | [phone] | | | | | | | Fax: | | | | | | | [phone] | | +--------+--------+ + + + + Encounter Details +--------+ + + + + | Date | Type | Department | Care Team | Description | +--------+ + + + + | 08/17/ | Hospital | [facility] | [place] Salazar | Non-small cell | | 2017 | Encounter | MED CTR CT [address] | MD [place] [address] | cancer of right lung | | | | [place], | [address] [place] | ([facility]) | | | | [place] [address] | [place] [address] | | | | | [phone] | [phone] | | | | | | | [...] [place] | | | | | | [address] | | | | | | | | +--------+ + + + + | 08/12/ | Hospital | Infusion Therapy | Elmer Silva | | | 2019 | Encounter | | E, [address] | | | | | | [address] [place], [place] | | | | | | [address] | | | | | | | | +--------+ + + + + | 08/12/ | Appointment | Oncology | Lionel Benson | | | 2019 | | | J, PharmD [address] | | | | | | [address] | | | | | | [place] [address] | | | | | | [phone] | | | | | | | | +--------+ + + + + | 08/19/ | Appointment | Oncology | Elmer Silva | | | 2019 | | | E, [address] | | | | | | ST [place], [place] | | | | | | [address] | | | | | | | | +--------+ + + + + | 08/19/ | Appointment | Infusion Therapy | Elmer Silva | | | 2019 | | | MD Trip [address] | | | | | | [place] | | | | | | [address] | | | | | | | [...] [place] | | | | | | [address] | | | | | | | [...] [place] | | | | | | [address] | | | | | | | [...] [place] | | | | | | [address] | | | | | | | [...] [place] | | | | | | [address] | | | | | | | [...] iohexol (OMNIPAQUE 350) 350 | Given | 08/17/ | 75 mLs | | | | [...]
--- OUTSIDE RECORDS SUMMARY | ~2020-08-08 | XMS | Encounter Summary ---
Demographics + + + | Address | [address] | | | [place] [address] | + + + | Home Phone [...] Author + + + | Author | [facility] | | | and [place] | + + + | Organization | [facility] | | | and [place] | + + + | Address | Unknown | + + + | Phone | Unavailable | + + + Support + + +---------+ + | Name | Relationship | Address | Phone | + + +---------+ + | Jennifer iRder | ECON | Unknown | | + + +---------+ + | Oksana Vitale | ECON | Unknown | | + + +---------+ + Care Team Providers + +------+ + | Care Lay Up Operator Name | Role | Phone | [...] 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, | [address] | | | | | adenocarcino | MD [address] | [place], | | | | | ma of brain | [address] | [place] | | | | | ([facility]) | [place], | [address] | | | | | Procedures | [place] [address] | Phone: | | | | | MRI Brain w | Phone: | [phone] | | | | | wo Contrast | [phone] | Fax: | | | | | KP | Fax: | [phone] | | | | | FUTURE ORDER | [phone] | | | | | | (JUNE [...] + + | 03/22/ | Hospital | [facility] | Fabianoang Susie | 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 Radiation Oncologist Department of Radiation Oncology [facility] Office: [phone] documented in this encounter Plan of Treatment +--------+ + + + + | Date | Type | Specialty | Care Team | Description | +--------+ + + + + | 08/12/ | Appointment | Oncology | Elmer Silva | | | 2019 | | | MD [address] | | | | | | [place] | | | | | | [address] | | | | | | | | +--------+ + + + + | 08/12/ | Hospital | Infusion Therapy | Elmer Silva | | | 2019 | Encounter | | MD [address]az[address] Domin[address] | | | | | | [place] | | | | | | [address] | | | | | | | | +--------+ + + + + | 08/12/ | Appointment | Oncology | Lionel Benson | | 2019 | | | J, PharmD [address] | | | | | | [address] [place] | | | | | | [place] [address] | | | | | | [phone] | | | | | | | | +--------+ + + + + | 08/19/ | Appointment | Oncology | Elmer Silva | | | 2019 | | | EMD [address] | | | | | | ST [place], [place] | | | | | | [address] | | | | | | | | +--------+ + + + + | 08/19/ | Appointment | Infusion Therapy | Elmer Silva | | | 2019 | | | EMD [address] | | | | | | ST [place], [place] | | | | | | [address] | | | | | | | [...] [place] | | | | | | [address] | | | | | | | [...] [place] | | | | | | [address] | | | | | | | [...] [place] | | | | | | [address] | | | | | | | [...] | | | | | | [place] | | | | | | [id number] | | | | | | | [...] AM | [facility] | | HISTORY: Brain/KINESEOLOGIST neoplasm, assess treatment response COMPARISON: | | [...] Procedure Note | + + | Christopher, [id number] - 06/17/2020 3:00 PM PDT EXAM: MRI BRAIN W WO CONTRAST dated 06/17/2020 | | 10:35 AMHISTORY: Brain/KINESEOLOGIST neoplasm, assess treatment responseCOMPARISON: MRI 01/22/2020. | [...]
--- OUTSIDE RECORDS SUMMARY | ~2020-08-08 | XMS | Encounter Summary ---
Demographics + + + | Address | [address] | | | [place] [address] | + + + | Home Phone [...] Author + + + | Author | [facility] | | | and [place] | + + + | Organization | [facility] | | [...] Team Providers + +------+ + | Care Recycle Coordinator Name | Role | Phone | [...] | | | cell cancer | [place] [address] | [address] | | | | | of right | [address] | [address] | | | | | lung (HCC) | [place], [place] | [place], | | | | | Secondary | [address] | [place] [address] | | | | | adenocarcino | Phone: | Phone: | | | | | ma of brain | [phone] | [phone] | | | | | (HCC) | Fax: | Fax: | | | | | Thyroid | [phone] | [phone] | | | | | Procedures | | | | | | | CT OFFICE | | | | | | [...] + + | 02/13/ | Hospital | [facility] | Susie Montemayor | Primary malignant | | 2020 | Encounter | MED CTR RADIATION | MD Jared [address] | neoplasm of female | | | | ONCOLOGY CLINIC [address] | [place], [place] | breast (HCC) | | | | [address] [facility] | [address] | (Primary Dx) | | | | [place] [address] | | | | | | [phone] | | | +--------+ + + + [...] go forward with biopsy with Dr. Da iSlva Next visit: our office will call you [...] 0/2 lymph nodes. pT1c pN0 ER 99%, CT 60%, Her2 non-amplified. - [facility] genetic test panel: Variant of uncertain [...] I also discussed this plan with Dr. Da Silva. We will plan for follow-up in my [...] Radiation Oncologist Department of Radiation Oncology [facility] Office: [phone] documented in this encounter Plan of Treatment +--------+ + + + + | Date | Type | Specialty | Care Team | Description | +--------+ + + + + | 08/12/ | Appointment | Oncology | Elmer Silva | | 2019 | | | MD [address] | | | | | | [place] | | | | | | [address] | | | | | | | | +--------+ + + + + | 08/12/ | Hospital | Infusion Therapy | Elmer Silva | | 2019 | Encounter | | MD [address] Dominique | | | | | | [place] | | | | | | [address] | | | | | | | | +--------+ + + + + | 08/12/ | Appointment | Oncology | Lionel Benson | | | 2019 | | | Ze Unger [address] | | | | | | [address] [place] | | | | | | [place] [address] | | | | | | [phone] | | | | | | | | +--------+ + + + + | 08/19/ | Appointment | Oncology | Elmer Silva | | 2019 | | | Trip, [address] | | | | | | ST [place], [place] | | | | | | [address] | | | | | | | | +--------+ + + + + | 08/19/ | Appointment | Infusion Therapy | Elmer Silva | | | 2019 | | | E, [address] | | | | | | ST [place], [place] | | | | | | [address] | | | | | | | [...] [place] | | | | | | [address] | | | | | | | [...] [place] | | | | | | [address] | | | | | | | [...] [place] | | | | | | [address] | | | | | | | [...] [place] | | | | | | [address] | | | | | | | | +--------+ + + + + documented as of this encounter Visit Diagnoses + + | Diagnosis | + + | 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
--- OUTSIDE RECORDS SUMMARY | ~2020-08-08 | XMS | Encounter Summary ---
Demographics + + + | Address | [address] | | | [place] [address] | + + + | Home Phone [...] + + + | Author | [facility] | | | and [place] | + + + | Organization | [facility] | | | [...] Team Providers + +------+ + | Care Car Hostler Name | Role | Phone | + [...] + + | 04/02/ | Telephone | [facility] | Milton Salazar | Patient Concerns | | 2020 | | MED CTR MEDICAL | MD Bebeto [address] | | | | | ONCOLOGY CLINIC [address] | [facility] | | | | | [address] | [place] [address] | | | | | [place] [address] | [phone] | | | | | [phone] | | | +--------+ + + + [...] her I would reach out to the fraud representative regarding her insurance since t he [...] | | | | [place] | | | | | | [address] | | | | | | | | +--------+ + + + + | 08/12/ | Hospital | Infusion Therapy | Elmer Silva | | | 2019 | Encounter | | E, [address] | | | | | | [place] | | | | | | [address] | | | | | | | | +--------+ + + + + | 08/12/ | Appointment | Oncology | Lionel Benson | | | 2019 | | | Ze Unger [address] | | | | | | [address] [facility] | | | | | | [place] [address] | | | | | | [phone] | | | | | | | | +--------+ + + + + | 08/19/ | Appointment | Oncology | Elmer Silva | | | 2019 | | | E, [address] | | | | | | ST [place], [place] | | | | | | [address] | | | | | | | | +--------+ + + + + | 08/19/ | Appointment | Infusion Therapy | Elmer Silva | | | 2019 | | | E, [address] | | | | | | [place] | | | | | | [address] | | | | | | | [...] [place] | | | | | | [id number] | | | | | | | [...] [place] | | | | | | [address] | | | | | | | [...] [place] | | | | | | [address] | | | | | | | [...] [place] | | | | | | [address] | | | | | | | | +--------+ + + + + documented as of this encounter Visit Diagnoses Not on filedocumented in this encounter"
--- OUTSIDE RECORDS SUMMARY | ~2020-08-08 | XMS | Encounter Summary ---
Demographics + + + | Address | [address] | | | [place] [address] | + + + | Home Phone | | + + + | Preferred Language | Unknown | + + + | Marital Status | Single | + + + | Buddhism Affiliation | Unknown | + + + [...] Team Providers + +------+ + | Care Box Office Clerk Name | Role | Phone | [...] | +--------+ + + + + | 04/12/ | Hospital | [facility] | Milton Salazar | Non-small cell | | 2017 | Encounter | MED CTR MEDICAL | MD Bebeto [address] | cancer of right lung | | | | ONCOLOGY CLINIC [address] | [address] [place] | (HCC) (Primary Dx); | | | | [address] | [place] [address] | Malignant neoplasm | | | | [place] [address] | [phone] | of thyroid gland | | | | [phone] | | (HCC); Pneumothorax | | | [...] + + + | Blood Pressure | 130/89 | 04/12/2017 8:23 AM | | | | | PDT | | + + + + + | Pulse | 90 | 04/12/2017 8:23 AM | | | | | PDT | | + + + + + | Temperature | 36.8 C (98.3 F) | 04/12/2017 8:23 AM | | | | | PDT | | + + + + + | Respiratory Rate | 16 | 04/12/2017 8:23 AM | | | | | PDT | | + + + + + | Oxygen Saturation | 100% | 04/12/2017 8:23 AM | | | | | PDT | | + + + + + | Inhaled Oxygen | - | - | | | Concentration | | | | + + + + + | Weight | 82.1 kg (181 lb) | 04/12/2017 8:23 AM | | | | | PDT | | + + + + + | Height | - | - | | + + + + + | Body Mass Index | 27.52 | 11/04/2016 9:00 AM | | | [...] encounter Progress Notes Milton Salazar MD - 04/12/2017 8:26 AM PDTFormatting of this note might be diff erent from the original. Patient is a 56 y.o. female seen today, 04/12/2017, for chemotherapy with pem/carboplatin fo r NSCLC. Today is day 10/cycle 3 of therapy. Patient complaints: Nausea, fatigue Symptoms are gradually worsening during the past 24 hours. Advance Directives: not addressed Appropriate portions of the patient's past medical, surgical, family, and social history we re reviewed and updated. Review of Systems Constitutional: States fatigue. Denies high fevers, shaking chills, anorexia, vomiting, or night sweats. Appetite without changes. States having a "crummy" week last week after chemo therapy. States poor appetite but forces herself to eat. Weight loss of 3 lbs. Nausea contin ues Zofran and Lorazepam seems to help. States foods aren't tasting right. Ear, Nose, Mouth, Throat: Denies odynophagia, dysphagia, or tinnitus. Cardiovascular: Denies shortness of breath, dyspnea on exertion, chest pain, palpitations o r orthopnea. Respiratory: Denies hemoptysis, or sputum production. Unchanged cough. Gastrointestinal: Denies abdominal pain, constipation, diarrhea, melena, or bright red bloo d per rectum. Genitourinary: Denies hematuria or dysuria. Musculoskeletal: Bilateral knee pain reported. Neurologic: Denies numbness/tingling of the extremities. States this week having a few head aches and states vision is as bad as its always been. Endocrine: Denies peripheral edema or heat/cold intolerance. Hematologic: Denies spontaneous bruising or bleeding. Integumentary: Denies rash, wounds or other skin concerns. Pain: Pain in both knees rates the pain roxane 310, this is with out any pain medication. Objective: BP 130/89 | Pulse 90 | Temp 36.8 C (98.3 F) (Tympanic) | Resp 16 | Wt 82.1 kg (181 lb) | LMP (LMP Unknown) | SpO2 100% | ? No | BMI 27.52 kg/m General appearance: alert, appears stated age and cooperative Data Review CBC: Lab Results Component Value Date WBC 7.2 04/12/2017 RBC 3.73 04/12/2017 BMP: Lab Results Component Value Date CO2 26 04/12/2017 BUN 8 04/12/2017 CALCIUM 8.9 04/12/2017 Assessment: Active Problems: 1. Non-small cell cancer of right lung (HCC) 2. Malignant neoplasm of thyroid gland (HCC) 3. Pneumothorax after biopsy Plan: The patient has a documented plan of care to address pain. 1. Acknowledgment today of likely considerable gastrointestinal toxicity noting patient's serum potassium only 3 mEq per liter. Have recommended beginning replacement therapy and pavan kavitha will begin potassium chloride 10 mEq daily. 2. Review of plans to complete a fourth and final cycle upcoming. Patient also scheduled for CT scan.Milton Salazar Johnna Wagner, [facility] - 04/12/2017 8:24 AM PDTREVIEW OF SYSTEMS Constitutional: States fatigue. Denies high fevers, shaking chills, anorexia, vomiting, or night sweats. Appetite without changes. States having a "crummy" week last week after chemo therapy. States poor appetite but forces herself to eat. Weight loss of 3 lbs. Nausea contin ues Zofran and Lorazepam seems to help. States foods aren't tasting right. Ear, Nose, Mouth, Throat: Denies odynophagia, dysphagia, or tinnitus. Cardiovascular: Denies shortness of breath, dyspnea on exertion, chest pain, palpitations o r orthopnea. Respiratory: Denies hemoptysis, or sputum production. Unchanged cough. Gastrointestinal: Denies abdominal pain, constipation, diarrhea, melena, or bright red bloo d per rectum. Genitourinary: Denies hematuria or dysuria. Musculoskeletal: Bilateral knee pain reported. Neurologic: Denies numbness/tingling of the extremities. States this week having a few head aches and states vision is as bad as its always been. Endocrine: Denies peripheral edema or heat/cold intolerance. Hematologic: Denies spontaneous bruising or bleeding. Integumentary: Denies rash, wounds or other skin concerns. Pain: Pain in both knees rates the pain roxane 01/08, this is with out any pain medication. Note: Pt is for MARIS check. My chart: documented in this encounter Plan of Treatment +--------+ + + + + | Date | Type | Specialty | Care Team | Description | +--------+ + + + + | 08/12/ | Appointment | Oncology | Elmer Silva | | | 2019 | | | MD [address]azaro Domin[address] | | | | | | [place], [place] | | | | | | [id number] | | | | | | | | +--------+ + + + + | 08/12/ | Hospital | Infusion Therapy | Elmer Silva | | | 2019 | Encounter | | MD [address]az[address] | | | | | | [place] | | | | | | [address] | | | | | | | | +--------+ + + + + | 08/12/ | Appointment | Oncology | Lionel Benson | | | 2019 | | | [address] | | | | | | [address] | | | | | | [place] [address] | | | | | | [phone] | | | | | | | | +--------+ + + + + | 08/19/ | Appointment | Oncology | Elmer Silva | | | 2019 | | | Trip, MD Willis [address] | | | | | | [place] | | | | | | [address] | | | | | | | | +--------+ + + + + | 08/19/ | Appointment | Infusion Therapy | Elmer Silva | | | 2019 | | | MD Lazaro Dominique [address] | | | | | | [place] | | | | | | [address] | | | | | | | [...] [place] | | | | | | [address] | | | | | | | [...] [place] | | | | | | [address] | | | | | | | [...] [place] | | | | | | [address] | | | | | | | [...] [place] | | | | | | [address] | | | | | | | | +--------+ + + + + documented as of this encounter Procedures + +--------+ + + + | Procedure Name | Priori | Date/Time | Associated Diagnosis | Comments | | | ty | | | | + +--------+ + + + | CBC WITH | STAT | 04/12/2017 | Malignant neoplasm | Results for this | | DIFFERENTIAL | | 8:10 AM | of thyroid gland | procedure are in the | | | | PDT | (HCC) Pneumothorax | results section. | | | | | after biopsy | | | | | | Non-small cell | | | | | | cancer of right lung | | | | | | (HCC) | | + +--------+ + + + | MAGNESIUM | STAT | 04/12/2017 | Non-small cell | Results for this | | | | 8:09 AM | cancer of right lung | procedure are in the | | | | PDT | (HCC) | results section. | + +--------+ + + + | COMPREHENSIVE | STAT | 04/12/2017 | Malignant neoplasm | Results for this | | METABOLIC PANEL | | 8:09 AM | of thyroid gland | procedure are in the | | | | PDT | (HCC) Pneumothorax | results section. | | | | | after biopsy | | | | | | Non-small cell | | | | | | cancer of right lung | | | | | | (HCC) | | + +--------+ + + + documented in this encounter Results CBC with Differential (04/12/2017 8:10 AM PDT) + +-------+ + + + | Component | Value | Ref Range | Performed | Pathologist | | | | | At | Signature | + +-------+ + + + | White Blood | 7.2 | 4.0 - 11.0 K/uL | [facility] | | | Cells | | | [facility] | | | | | [facility] | | | | | | C[facility] - | | | | | | LABORATORY | | + +-------+ + + + | Red Blood | 3.73 | 3.70 - 5.20 | [facility] | | | Cells | | M/uL | [facility] | | | | | | MEDICAL | | | | | | CENTER - | | | | | | LABORATORY | | + +-------+ + + + | Hemoglobin | 12.0 | 11.5 - 16.0 | [facility] | | | | | g/dL | [facility] | | | | | | MEDICAL | | | | | | CENTER - | | | | | | LABORATORY | | + +-------+ + + + | Hematocrit | 34.4 | 34.0 - 47.0 % | [facility] | | | | | | [facility] | | | | | | [facility]ICAL | | | | | | CENTER - | | | | | | LABORATORY | | + +-------+ + + + | MCV | 92.4 | 83.0 - 101.0 fL | [facility] | | | | | | [facility] | | | | | | [facility]ICAL | | | | | | CENTER - | | | | | | LABORATORY | | + +-------+ + + + | MCH | 32.2 | 28.0 - 35.0 pg | [facility] | | | | | | [facility] | | | | | | MEDICAL | | | | | | CENTER - | | | | | | LABORATORY | | + +-------+ + + + | MCHC | 34.8 | 32.0 - 36.0 | [facility] | | | | | g/dL | [facility] | | | | | | MEDICAL | | | | | | CENTER - | | | | | | LABORATORY | | + +-------+ + + + | RDW-CV | 14.6 | <15.0 % | [facility] | | | | | | [facility] | | | | | | MEDICAL | | | | | | CENTER - | | | | | | LABORATORY | | + +-------+ + + + | Platelet | 171 | 140 - 440 K/uL | [facility] [...] +-------+ + + + | % | 48.1 | 45.0 - 82.0 % | [facility] | | | Neutrophils | | | [facility] | | | | | | MEDICAL | | | | | | CENTER - | | | | | | LABORATORY | | + +-------+ + + + | % | 39.6 | 20.0 - 45.0 % | [facility] | | | Lymphocytes | | | [facility] | | | | | | MEDICAL | | | | | | CENTER - | | | | | | LABORATORY | | + +-------+ + + + | % Monocytes | 11.1 | 4.0 - 12.0 % | [facility] | | | | | | [facility] | | | | | | MEDICAL | | | | | | CENTER - | | | | | | LABORATORY | | + +-------+ + + + | % | 0.7 | 0.0 - 5.0 % | [facility] | | | Eosinophils | | | [facility] | | | | | | MEDICAL | | | | | | CENTER - | | | | | | LABORATORY | | + +-------+ + + + | % Basophils | 0.5 | 0.0 - 1.0 % | [facility] | | | | | | [facility] | | | | | | MEDICAL | | | | | | CENTER - | | | | | | LABORATORY | | + +-------+ + + + | Absolute | 3.50 | 1.80 - 8.50 | [facility] | | | Neutrophils | | K/uL | [facility] | | | | | | MEDICAL | | | | | | CENTER - | | | | | | LABORATORY | | + +-------+ + + + | Absolute | 2.80 [...] | [address] | [place] | [phone] | | [facility] | | [address] | | | - LABORATORY | | | | + + + + + Magnesium (04/12/2017 8:09 AM PDT) + +-------+ + + + | Component | Value | Ref Range | Performed | Pathologist | | | | | At | Signature | + +-------+ + + + | Magnesium | 1.9 | 1.8 - 2.5 mg/dL | [facility] | | | | | | [facility] [...] [address] | [place] | [phone] | | [facility] | | [address] | | | - LABORATORY | | | | + + + + + Comprehensive Metabolic Panel (04/12/2017 8:09 AM PDT) + + + + + [...] + + + + | K | 3.0 (L) | 3.5 - 5.1 | [facility] [...] + | Glucose | 110 (H) | 70 - 109 mg/dL | [...] | 0.97 | 0.60 - 1.30 | [facility] | | | | | mg/dL | [facility] | | | | | | MEDICAL | | | | | | CENTER - | | | | | | LABORATORY | | + + + + + + | eGFR, | 60Comment: GLOMERULAR | >=60 | [facility] | | | non- | FILTRATION | mL/min/1.73m2 | [facility] | | | [place] | RATE,ESTIMATED | | MEDICAL | | | | mL/min/1.48y9Dsnh than | | CENTER - | | [...] | | | | | mg/dL | [facility] | | | | [...] + + + + | BUN/Creatin | 8.2 | | [facility] | | | ine [...] + | [address] | [address] | [place], [place] | [phone] | | [facility] | | [address] | | | - LABORATORY | | [...]
--- OUTSIDE RECORDS SUMMARY | ~2020-08-08 | XMS | Encounter Summary ---
Demographics + + + | Address | [address] | | | [place] [address] | + + + | Home Phone [...] Author + + + | Author | [facility] | | | and [place] | + + + | Organization | [facility] | | | [...] Team Providers + +------+ + | Care Welder Metal [employer] Name | Role | Phone | + +------+ + | Zuleyka Martínez | PCP | | + +------+ + Encounter Details +--------+ + + + + | Date | Type | Department | Care Team | Description | +--------+ + + + + | 10/06/ | Hospital | [facility] | Susie Montemayor | | | 2016 | Encounter | MED CTR RADIATION | Jared, [address] | | | | | ONCOLOGY [address] [place], [place] | | | | | [place], | [address] | | | | | [place] [address] | | | | | | [phone] | | | +--------+ + + + [...] 10/14/2016 12:00 AM PSTPATIENT: Olena Levin tDOS:10/14/2016MR#: [id number] :1960 Radiation Oncology Treatment Summary ICD-9/Diagnosis: C73 - Malignant neoplasm of thyroid gland, Diagnosed 09/2016 (Active) CC: Doris Stanford M.D. Tank Builder Helper Procedure: Delivery of I-131 for thyroid remnant [...] and she was given a copy of [facility] consent form for her personal records. She was previously given educational material a nd instructions regarding parotid massage including technique and frequency. The radiation industrial safety and health specialist proceeded to give instructions and review guidelines [...] M.D. Radiation Oncologist Department of Radiation Oncology [facility] This note was transcribed using [employer] speech recognition software. As a result, there ma y be unintended for medical and/or spelling errors. Every attempt is made to correct dicta tion. If there are any questions or errors please contact our office. Page 1 of 1 CSN: [id number] signed by Susie Walker MD at 10/24/2016 [...] Dominique | | | | | | [place], [place] | | | | | | [address] | | | | | | | | +--------+ + + + + | 08/12/ | Hospital | Infusion Therapy | Elmer Silva | | | 2019 | Encounter | | E, [address] | | | | | | [place] | | | | | | [address] | | | | | | | | +--------+ + + + + | 08/12/ | Appointment | Oncology | Lionel Benson | | | 2019 | | | J, PharmCorky [address] | | | | | | [address] | | | | | | [place] [address] | | | | | | [phone] | | | | | | | | +--------+ + + + + | 08/19/ | Appointment | Oncology | Elmer Silva | | | 2019 | | | E, [address] | | | | | | [place] | | | | | | [address] | | | | | | | | +--------+ + + + + | 08/19/ | Appointment | Infusion Therapy | Elmer Silva | | | 2019 | | | MD [address] | | | | | | [place] | | | | | | [address] | | | | | | | [...] [place] | | | | | | [address] | | | | | | | [...] [place] | | | | | | [address] | | | | | | | [...] [place] | | | | | | [address] | | | | | | | [...] [place] | | | | | | [address] | | | | | | | | +--------+ + + + + documented as of this encounter Visit Diagnoses Not on filedocumented in this encounter"
--- OUTSIDE RECORDS SUMMARY | ~2020-08-08 | XMS | Encounter Summary ---
Demographics + + + | Address | [address] | | | [place] [address] | + + + | Home Phone [...] Team Providers + +------+ + | Care Data Governance Consultant Name | Role | Phone | [...] | | Non-small | Salazar, | [place] | | | | | cell cancer | Milton | [place], | | | | | of right | [place] | [place] [address] | | | | | lung (HCC) | [address] | Phone: | | | | | Procedures | [place] | [phone] | | | | | CT Chest w | [place] | Fax: | | | | | Contrast | [address] | [phone] | | | | | | Phone: | | | | | | | [phone] | | | | | | | Fax: | | | | | | | [phone] | | +--------+--------+ + + + + [...] | | Non-small | Marie | [place] | | | | | cell cancer | Milton | [place], | | | | | of right | [place] | [place] [address] | | | | | lung (HCC) | [address] | Phone: | | | | | Procedures | [place] | [phone] | | | | | CT Chest w | [place] | Fax: | | | | | Contrast | [address] | [phone] | | | | | | Phone: | | | | | | | [phone] | | | | | | | Fax: | | | | | | | [phone] | | +--------+--------+ + + + + Encounter Details +--------+ + + + + | Date | Type | Department | Care Team | Description | +--------+ + + + + | 08/08/ | Hospital | [facility] | Milton Salazar | Non-small cell | | 2019 | Encounter | MED CTR CT [address] | MD [place] [address] | cancer of right lung | | | | [place], | [address] [place] | ([facility]) | | | | [place] [address] | [place] [address] | | | | | [phone] | [phone] | | | | | | | [...] +--------+ + + + + | 08/12/ Appointment | Oncology | Elmer Silva | | | 2019 | | | MD Lazaro Dominique [address] | | | | | | [place] | | | | | | [address] | | | | | | | | +--------+ + + + + | 08/12/ | Hospital | Infusion Therapy | Elmer Silva | | | 2019 | Encounter | | E, [address] | | | | | | ST [place], [place] | | | | | | [address] | | | | | | | | +--------+ + + + + | 08/12/ | Appointment | Oncology | Lionel Benson | | | 2019 | | | J, PharmD [address] | | | | | | [address] [place] | | | | | | [place] [address] | | | | | | [phone] | | | | | | | | +--------+ + + + + | 08/19/ | Appointment | Oncology | Elmer Silva | | | 2019 | | | E, [address] | | | | | | [place], [place] | | | | | | [address] | | | | | | | | +--------+ + + + + | 08/19/ | Appointment | Infusion Therapy | Elmer Silva | | | 2019 | | | MD Lazaro Dominique [address] | | | | | | [place] | | | | | | [address] | | | | | | | [...] [place] | | | | | | [address] | | | | | | | [...] [place] | | | | | | [address] | | | | | | | [...] [place] | | | | | | [address] | | | | | | | [...] [place] | | | | | | [address] | | | | | | | [...]
--- OUTSIDE RECORDS SUMMARY | ~2020-08-08 | XMS | Encounter Summary ---
Demographics + + + | Address | [address] | | | [place] [address] | + + + | Home Phone [...] Author + + + | Author | [facility] | | | and [place] | + + + | Organization | [facility] | | [...] Providers + +------+ + | Care Sales Operations Coordinator Name | Role | Phone | + +------+ + | Zuleyka Martínez | PCP | | + +------+ + Reason for Visit +--------+--------+ + | Reason | Onset | Comments | | | Date | | +--------+--------+ + | Other | 09/18/ | | | | 2019 | | +--------+--------+ + Encounter Details +--------+ + + + + | Date | Type | Department | Care Team | Description | +--------+ + + + + | 09/18/ | Telephone | [facility] | Susie Montemayor | Other | | 2019 | | MED CTR RADIATION | MD Jared [address] | | | | | ONCOLOGY CLINIC [address] | [place], [place] | | | | | [facility] | [address] | | | | | [place] [address] | | | | | | [phone] | | | +--------+ + + + [...] Telephone Encounter - Azucena Ritchie RN - 09/18/2019 4:41 PM PSTPatient reports not feel ing well today, dizziness and nausea. She states she did not feel well last night and di no t feel well, she has been checking her BP and pulse thought the day and these have been elev ated. VS when here BP 158/102, P 97. O2 sats 99% on room air, T 36.2. She denies chest pa in, but states she has felt her heart racing at times. She states she just does not feel ri ght. Dr. Montemayor notified and will evaluate patient. documented in this encounter Plan of Treatment +--------+ + + + + | Date | Type | Specialty | Care Team | Description | +--------+ + + + + | 08/12/ | Appointment | Oncology | Elmer Silva | | | 2019 | | | MD Lazaro Dominique [address] | | | | | | [facility] [place] | | | | | | [id number] | | | | | | | | +--------+ + + + + | 08/12/ | Hospital | Infusion Therapy | Elmer Silva | | | 2019 | Encounter | | E, [address] | | | | | | [place] | | | | | | [address] | | | | | | | | +--------+ + + + + | 08/12/ | Appointment | Oncology | Lionel Benson | | | 2019 | | | J PharmCorky [address] | | | | | | [address] [place] | | | | | | [place] [address] | | | | | | [phone] | | | | | | | | +--------+ + + + + | 08/19/ | Appointment | Oncology | Elmer Silva | | | 2019 | | | E, [address] | | | | | | [place], [place] | | | | | | [address] | | | | | | | | +--------+ + + + + | 08/19/ | Appointment | Infusion Therapy | Elmer Silva | | | 2019 | | | MD Lazaro Dominique [address] | | | | | | [place] | | | | | | [address] | | | | | | | [...] [place] | | | | | | [address] | | | | | | | [...] [place] | | | | | | [address] | | | | | | | [...] [place] | | | | | | [address] | | | | | | | [...] [place] | | | | | | [address] | | | | | | | | +--------+ + + + + documented as of this encounter Visit Diagnoses Not on filedocumented in this encounter"
--- OUTSIDE RECORDS SUMMARY | ~2020-08-08 | XMS | Encounter Summary ---
Demographics + + + | Address | [address] | | | [place] [address] | + + + | Home Phone [...] [facility] | | | and [...] Team Providers + +------+ + | Care Test Driver Name | Role | Phone | [...] + + | 04/21/ | Telephone | [facility] | Serenity Dunn, | Other (Survivorship) | | 2017 | | MED CTR MEDICAL | RN | | | | | ONCOLOGY CLINIC [address] | | | | | | [address] | | | | | | [place] [address] | | | | | | [phone] | | | +--------+ + + + [...] [address] | | | | | | [place] | | | | | | [address] | | | | | | | | +--------+ + + + + | 08/12/ | Hospital | Infusion Therapy | Elmer Silva | | | 2019 | Encounter | | MD Bernard [address] | | | | | | [place] | | | | | | [address] | | | | | | | | +--------+ + + + + | 08/12/ | Appointment | Oncology | Lionel Benson | | | 2019 | | | Ze Unger [address] | | | | | | [address] [place] | | | | | | [place] [address] | | | | | | [phone] | | | | | | | | +--------+ + + + + | 08/19/ | Appointment | Oncology | Elmer Silva | | | 2019 | | | E, [address] | | | | | | [place], [place] | | | | | | [address] | | | | | | | | +--------+ + + + + | 08/19/ | Appointment | Infusion Therapy | Elmer Silva | | | 2019 | | | E, [address] | | | | | | ST [place], [place] | | | | | | [address] | | | | | | | [...] [place] | | | | | | [address] | | | | | | | | +--------+ + + + + | 09/09/ | Appointment | Infusion Therapy | | | | 2019 | | | | | +--------+ + + + + | 11/16/ | Office | Oncology | Elmer Silva | | | 2019 | Visit | | MD Lazaro Dominique | | | | | | [place] | | | | | | [address] | | | | | | | [...] [place] | | | | | | [address] | | | | | | | [...] [place] | | | | | | [address] | | | | | | | | +--------+ + + + + documented as of this encounter Visit Diagnoses Not on filedocumented in this encounter"
--- OUTSIDE RECORDS SUMMARY | ~2020-08-08 | XMS | Encounter Summary ---
Demographics + + + | Address | [address] | | | [place] [address] | + + + | Home Phone [...] | + + +---------+ + | Jeninfer Holt | ECON | Unknown | | + + +---------+ + | Oksana Vitale | ECON | Unknown | | + + +---------+ + Care Team Providers + +------+ + | Care Clinical Sales Consultant Name | Role | Phone | [...] | neoplasm of | Milton | [address] [place] | | | | | unspecified | MD [place] | [place], | | | | | part of | [address] | [place] [address] | | | | | right | [place] | Phone: | | | | | bronchus or | [place], [place] | [phone] | | | | | lung (HCC) | [address] | Fax: | | | | | Procedures | Phone: | [phone] | | | | | [place] | [phone] | | | | | | B12 | Fax: | | | | | | INJECTION, | [phone] | | | | | | [address] [place] | | | | | | | ONDANSETRON | | | | | | | HCL | | | | | | | INJECTION, 1 | | | | | | | MG [place] | | | | | | | DEXAMETHASON | | | | | | | E SODIUM | | | | | | | PHOS, 1 MG | | | | | | | IL | | | | | | | FOSAPREPITAN | | | | | | | T INJECTION, | | | | | | | 1 MG IL IV | | | | | | | INFUSION, | | | | | | | HYDRATION, | | | | | | | 31-60 MIN | | | | | | | IL IV | | | | | | | INFUSION, | | | | | | | HYDRATION, | | | | | | | EA ADD HOUR | | | | | | | IL | | | | | | | PEMETREXED | | | | | | | INJECTION, | | | | | | | 10 MG IL | | | | | | | CISPLATIN 10 | | | | | | | MG | | | | | | | INJECTION | | | | | | | IL | | | | | | | DIPHENHYDRAM | | | | | | | INE HCL | | | | | | | INJECTIO, 50 | | | | | | | MG IL | | | | | | | ALBUTEROL | | | | | | | COMP CON, 1 | | | | | | | MG [place] | | | | | | | ALBUTEROL | | | | | | | NON-COMP | | | | | | | CON, 1 MG | | | | | | | IL | | | | | | | METHYLPREDNI | | | | | | | SOLONE | | | | | | | INJECTION, | | | | | | | 125 MG IL | | | | | | | INJECTION, | | | | | | | FAMOTIDINE, | | | | | | | 20 MG IL | | | | | | | NORMAL | | | | | | | SALINE | | | | | | | SOLUTION | | | | | | | INFUS, 500 | | | | | | | ML IL | | | | | | | NORMAL | | | | | | | SALINE | | | | | | | SOLUTION | | | | | | | INFUS, 250 | | | | | | | ML IL | | | | | | | STERILE | | | | | | | WATER/SALINE | | | | | | | , 10 ML IL | | | | | | | CHEMOTHER, | | | | | | | IV PUSH,EA | | | | | | | ADD DRUG IL | | | | | | | CHEMOTHER, | | | | | | | IV INFUSION, | | | | | | | 1 HR IL | | | | | | | CHEMOTHER, | | | | | | | IV INFUSION, | | | | | | | EA HR IL | | | | | | | CHEMOTHER,NO | | | | | | | N-HORMONE | | | | | | | ANTI-NEOPL, | | | | | | | SUB-Q/IM IL | | | | | | | CHEMOTHER | | | | | | | HORMON | | | | | | | ANTINEOPL | | | | | | | SUB-Q/IM IL | | | | | | | | | | | | | | PALONOSETRON | | | | | | | HCL, 25 MCG | | | | | | | IL | | | | | | | CARBOPLATIN | | | | | | | INJECTION, | | | | | | | 50 MG | | | +--------+--------+ + + + + Encounter Details +--------+ + + + + | Date | Type | Department | Care Team | Description | +--------+ + + + + | 03/12/ | Hospital | [facility] | Milton Salazar | 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 [place]eb[place] [address] | cancer of right lung | | | | INFUSION [address] | [address] [place] | (HCC) | | | | [place], | [place] [address] | | | | | [place] [address] | [phone] | | | | | [phone] | | | +--------+ + + + [...] documented as of this encounter Miscellaneous Notes Treatment Plan - Catherine Payne RN - 03/12/2017 8:14 AM PDTViewed chart for weight, v ital signs and lab results. Also viewed chart for completion of medication and allergy revi ew prior to treatment.Catherine Bay RNDATE/TIME: 03/12/2017 8:15 documented in this encounter Plan of Treatment +--------+ + + + + | Date | Type | Specialty | Care Team | Description | +--------+ + + + + | 08/12/ | Appointment | Oncology | Elmer Silva | | | 2019 | | | MD Lazaro Dominique | | | | | | [place] | | | | | | [address] | | | | | | | | +--------+ + + + + | 08/12/ | Hospital | Infusion Therapy | Elmer Silva | | 2019 | Encounter | | MD Lazaro Dominique | | | | | | [place] | | | | | | [address] | | | | | | | | +--------+ + + + + | 08/12/ | Appointment | Oncology | Lionel Benson | | | 2019 | | | Ze Unger [address] | | | | | | [address] [place] | | | | | | [place] [address] | | | | | | [phone] | | | | | | | | +--------+ + + + + | 08/19/ | Appointment | Oncology | Elmer Silva | | | 2019 | | | Trip, [address] | | | | | | [place], [place] | | | | | | [address] | | | | | | | | +--------+ + + + + | 08/19/ | Appointment | Infusion Therapy | Elmer Silva | | | 2019 | | | E, [address] | | | | | | [place], [place] | | | | | | [address] | | | | | | | [...] [place] | | | | | | [address] | | | | | | | [...] [place] | | | | | | [address] | | | | | | | [...] [place] | | | | | | [address] | | | | | | | [...] | | | | | | ST [place], [place] | | | | | | [address] | | | | | | | [...] + +---------+ + +-------+------+ | CARBOplatin (PARAPLATIN) 690.6 | New Bag | 03/12/20 | 690.6 mg | 500 | | | mg in sodium chloride 0.9% 430.9 | | 17 9:32 | | mL/hr | | | mL chemo infusion 690.6 mg | | AM PDT | | | | | (Target AUC = 6), Intravenous, | | | | | | | Administer over 60 Minutes, ONCE, | | | | | | | 03/12/17 at 0915, For 1 dose, | | | | | | | Chemotherapy: Use appropriate | | | | | | | handling precautions., | | | | | | + +---------+ + +-------+------+ +---+---+ | | | +---+---+ + +---------+ +--------+-------+---+ | fosaprepitant (EMEND) 150 mg in | New Bag | 03/12/20 | 150 mg | 450 | | | sodium chloride 0.9% 150 mL IVPB | | 17 8:54 | | mL/hr | | | 150 mg, Intravenous, Administer | | AM PDT | | | | | over 20 Minutes, ONCE, Fri | | | | | | | 03/12/17 at 0900, For 1 dose, Do | | | | | | | not shake bag. Administer prior | | | | | | | to chemotherapy., | | | | | | + +---------+ +--------+-------+---+ +---+---+ | | | +---+---+ + +---------+ +---+--------+---+ | palonosetron (ALOXI) 0.25 mg, | New Bag | 03/12/20 | | 209.3 | | | dexamethasone (DECADRON) 8 mg in | | 17 8:34 | | mL/hr | | | sodium chloride 0.9% 50 mL IVPB | | AM PDT | | | | | Intravenous, Administer over 16 | | | | | | | Minutes, ONCE, 03/12/17 at | | | | | | | 0830, For 1 dose | | | | | | + +---------+ +---+--------+---+ +---+---+ | | | +---+---+ + +-------+ + +-------+---+ | PEMEtrexed (ALIMTA) 1,000 mg in | Given | 03/12/20 | 1,000 mg | 600 | | | sodium chloride 0.9% 100 mL | | 17 9:18 | | mL/hr | | | chemo infusion 1,000 mg, | | AM PDT | | | | | Intravenous, Administer over 10 | | | | | | | Minutes, ONCE, 03/12/17 at | | | | | | | 0900, For 1 dose, 500 mg/m2= 1025 | [...]
--- OUTSIDE RECORDS SUMMARY | ~2020-08-08 | XMS | Encounter Summary ---
Demographics + + + | Address | [address] | | | [place] [address] | + + + | Home Phone [...] | + + +---------+ + | Jenniferpatria Riedr | ECON | Unknown | | + + +---------+ + | Oksana Vitale | ECON | Unknown | | + + +---------+ + Care Team Providers + +------+ + | Care Coffin Maker Name | Role | Phone | [...] + + + | 03/22/ | [facility] | [facility] | Milton Salazar | Non-small cell | | 2017 | Encounter | MED CTR MEDICAL | MD [place]eb[place] [address] | cancer of right lung | | | | ONCOLOGY CLINIC [address] | [address] [place] | (HCC) (Primary Dx); | | | | [facility] | [place] [address] | Abnormal stress ECG | | | | [place] [address] | [phone] | with treadmill; | | | | [phone] | | Malignant neoplasm | | | [...] of adjuvant therapy Milton Salazar Johnna Wagner, [facility] - 03/22/2017 11:08 AM PDTREVIEW OF SYSTEMS [...] clinical note ddendum Note - Amanda Mckenna [facility] - 0 03/22/2017 11:16 AM PDTEncounter addended by: Amanda Mckenna CMA on: 03/22/2017 11:16
Actions taken: Home Medications modified, Medication taking status modified, Order Reconcil iation Section accessed, Visit Navigator Flowsheet section accepted, Chief Complaint modifie d, Sign clinical note TAddendum Note - Kelin Hickey Consumer Marketing Specialist - 03/22/2017 10:37 AM PDTEncounter addended by: [...] [place] | | | | | | [address] | | | | | | | | +--------+ + + + + | 08/12/ | Hospital | Infusion Therapy | Elmer Silva | | 2019 | Encounter | | MD Lazaro Dominique | | | | | | [place] | | | | | | [address] | | | | | | | | +--------+ + + + + | 08/12/ | Appointment | Oncology | Lionel Benson | | | 2019 | | | JZe [address] | | | | | | [address] [place] | | | | | | [place] [address] | | | | | | [phone] | | | | | | | | +--------+ + + + + | 08/19/ | Appointment | Oncology | Elmer Silva | | | 2019 | | | Trip, [address] | | | | | | [place] | | | | | | [address] | | | | | | | | +--------+ + + + + | 08/19/ | Appointment | Infusion Therapy | Elmer Silva | | | 2019 | | | E, [address] | | | | | | [place] | | | | | | [address] | | | | | | | [...] Visit | | MD Trip [address] | | | | | | [place] | | | | | | [address] | | | | | | | [...] [place] | | | | | | [address] | | | | | | | [...] [place] | | | | | | [address] | | | | | | | [...] [place] | | | | | | [address] | | | | | | | [...] | | Basophils | | K/uL | [address] | [...] [address] | [place] | [phone] | | [facility] | | [address] | | | - LABORATORY | | [...] 7 | 7 - 18 mg/dL | [facility] | | [facility] | | [facility] | | | | | | MEDICAL | | | | | | CENTER - | | | | | | LABORATORY | | + + + + + + | Creatinine | 1.00 | 0.60 - 1.30 | [facility] | | | | | mg/dL | [facility] | | | | | | MEDICAL | | | | | | CENTER - | | | | | | LABORATORY | | + + + + + + | eGFR, | 58 (L)Comment: | >=60 | THAYER | | | non- | GLOMERULAR FILTRATION | mL/min/1.73m2 | [facility] | | | Marshallese | RATE,ESTIMATED | | MEDICAL | | | | mL/min/1.66t2Vafe than | | CENTER - | | [...] [address] | [place] | [phone] | | [facility] | | [address] | | | - LABORATORY | | [...]
--- OUTSIDE RECORDS SUMMARY | ~2020-08-08 | XMS | Encounter Summary ---
Demographics + + + | Address | [address] | | | [place] [address] | + + + | Home Phone [...] Team Providers + +------+ + | Care Polymer Chemist Name | Role | Phone | + [...] | Pulmonary | Susie M, | [address] | | | | | nodule | MD [address] | [place], | | | | | Procedures | [address] | [place] [address] | | | | | CT Guided | [place], | Phone: | | | | | Biopsy Lung | [place] [address] | [phone] | | | | | Or | Phone: | Fax: | | | | | Mediastinum | [phone] | [phone] | | | | | | Fax: | | | | | | | [phone] | | +--------+--------+ + + + + [...] + + | 11/04/ | Hospital | [facility] | Hugo Godfrey MD | Pneumothorax after | | 2017 - | Encounter | MED CTR ICU [address] | [address] | biopsy (Primary Dx); | | | | [place], | [place] | Pulmonary nodule | | 11/06/ | | [place] [address] | [address] | | | 2016 | | [phone] | [phone] | | | | | | | | | | | | Tien Angel MD | | | | | | [address] | | | | | | [place] | | | | | | [id number] | | | | | | | [...] might be different fro m the original. [place] HOSPITALIST DISCHARGE SUMMARY Pt. Name/Age/: Smitha [...] signed by: Tien Angel MD, 11/06/2016 9:36 [facility] Reference. This is NOT part of the [...] this chart may have been created with Smart Wire Grid voice recognition software. Occasi onal wrong-word or [...] sent through Care Everywhere.PNEUMOTHORAX (C OLLAPSED LUNG) (ROMANIAN)documented in this encounter Medications at Time of [...] might be diff erent from the original. [place] --[place], [place] General Surgery Team Hospital Day: 3 [...] Signed by: Del Dsouza MD, 11/06/2016 8:58 [facility] Kerwin Jasso MD - 11/06/2016 7:51 AM PSTFormatting of this note might be different from the hector jackson [place] HOSPITALIST PROGRESS NOTE Patient: Smitha Rider : 1960: Age: 56 y.o. MedRec: [id number] PCP: Zuleyka Martínez Admission date: 11/04/2016 Hospital day # : 2 Physician author: Tien Angel MD Today: 11/06/2016 Allergies: Allergies Allergen Reactions Morphine And Related Other (See Comments) "unknown reaction - trouble breathing after hysterectomy" Current Medications: Current Facility-Administered Medications Medication Dose Route Frequency Provider Last Rate Last Dose ALPRAZolam (XANAX) tablet 0.5 mg 0.5 mg Oral TID PRN iTen Angel MD 0.5 mg at 170 calcium [...] for input(s): IRON, TIBC, PCTSAT, FERRITIN, TSH, AXZLVSLS73, FOLATE in the last 168 hours. Inflammatory [...] ABG No results for input(s): PHART, PO2ART, NCC9DPT, ZEW7NBN, BEART, D7GCUKNR in the last 168 h ours. No results for input(s): SPECSOURCE, PHPOCB, PCO2, PO2, HCO3, TCO2, BEART, UQKK3SOF in the last 168 hours. Drug of [...] Procedure Component Value Units Date/Time Culture, MRSA [[id number]] Collected: 11/04/16 1544 Order Status: Completed Lab [...] study were reported by the [facility] radiologist on November 05, 2016 at [...] meycritical meysign) Tien Angel MD 11/06/2016 7:51 [facility] Reference. This is NOT part [...] this chart may have been created with Smart Wire Grid voice recognition software. Occasi onal wrong-word or sound-alike substitutions may have occurred due to the inherent cervantes itations of voice recognition software. Please read the chart carefully and recognize, using context, where these substitutions have occurred Del Montoya MD - 11/05/2016 6:31 PM PSTFormatting of this note might be different from the hector jackson [place] --[place], [place] General Surgery Team Hospital Day: 2 [...] Signed by: Del Dsouza MD, 11/05/2016 18:32 [facility] Kerwin Jasso MD - 11/05/2016 6:53 AM PSTFormatting of this note might be different from the [place], [place] HOSPITALIST PROGRESS NOTE Patient: Smitha Rider : 1960: Age: 56 y.o. MedRec: [id number] PCP: Zuleyka Martínez Admission date: 11/04/2016 Hospital [...] for input(s): IRON, TIBC, PCTSAT, FERRITIN, TSH, WUBLZOMT62, FOLATE in the last 168 hours. Inflammatory [...] ABG No results for input(s): PHART, PO2ART, FNU2CIB, THK5ZWR, BEART, O4ELPPWS in the last 168 h ours. No results for input(s): SPECSOURCE, PHPOCB, PCO2, PO2, HCO3, TCO2, BEART, VBXY9MLV in the last 168 hours. Drug of [...] Procedure Component Value Units Date/Time Culture, MRSA [[id number]] Collected: 11/04/16 1544 Order Status: Sent Lab Status: In process Updated: 11/04/16 1798 Specimen Information: Respiratory from Nares Radiology results [...] pneumothorax. Dictated and Sign ed by: Chai Nugyen MD Electronically signed: 11/04/2016 6:04 PM Xr [...] meycritical meysign) Tien Angel MD 11/05/2016 6:53 [facility] Reference. This is NOT part [...] this chart may have been created with Smart Wire Grid voice recognition software. Occasi onal wrong-word or sound-alike substitutions may have occurred due to the inherent cervantse itations of voice recognition software. Please read the chart carefully and recognize, using context, where these substitutions have occurred documented in this en counter H&P Notes Tien Angel MD - 11/04/2016 2:34 PM PSTFormatting of this note might be different fro m the original. [place] HOSPITALIST HISTORY & PHYSICAL Patient: Smitha Rider : 1960: Age: 56 y.o. MedRec: [id number] PCP: Zuleyka Martínez Admission date: 11/04/2016 Hospital day #: Physician author: Tien Angel MD Today: 11/04/2016 CHIEF COMPLAINT: Chest pain due to pneumothorax caused by right lung nodule biopsy Dr Godfrey HISTORY OF PRESENT ILLNESS: This is a 56 y.o. female with a history of thyoid cancer Was in [facility] last June with CP with CT showing lung nodules had a PET scan in June at 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 Inflammatory [...] ABG No results for input(s): PHART, PO2ART, RVY8ZXU, IQJ2OIK, BEART, K5LSFSMZ in the last 168 h ours. No results for input(s): SPECSOURCE, PHPOCB, PCO2, PO2, HCO3, TCO2, BEART, TTYF2UHZ in the last 168 hours. Drug of [...] (dot meyaddendum tdnorefesh nownorefresh) (dot meytime meycritical) [facility] Documentation I expect this patient will be hospitalized for less than 2-midnights and expect the post-ho spital plan to be discharge to home or to an adult foster home. Electronically signed by: Tien Angel MD 11/04/2016 14:34 [facility] (meyaddendum tdnorefesh nownorefresh) Portions of this chart may have been created with Smart Wire Grid voice recognition software. Occasi onal wrong-word or [...] signed by: Hugo Godfrey MD, 11/04/2016 10:02 [facility]ATION[facility]ronically signed by Hugo Godfrey MD at 2016 10:19 AM Susie Guerrero MD - 10/27/2016 12:00 AM PST[facility] Follow-up Note PATIENT: Smitha Rider MR#: [id number] :1960 DOS:10/27/2016 ICD/Diagnosis: C73 - Malignant neoplasm [...] was reviewed with Radio logy here at [facility] and it was felt that [...] t o Dr. Coles, endocrinology to establish senior care follow-up. Thank you for allowing me to participate in the care of Smitha Rider. If you should have any questions regarding this evaluation, please do not hesitate to contact me. Susie Vargas M.D. Radiation Oncologist Department of Radiation Oncology [facility] Electronically signed by Susie Walker M.D CC: Doris Stanford M.D. This note was transcribed using Smart Wire Grid speech recognition software. As a result, there ma y be unintended for medical and/or spelling errors. Every attempt is made to correct dicta tion. If there are any questions or errors please contact our office. CSN: [id number] signed by Susie Walker MD at 11/02/2016 11:55 AM PSTd ocumented in this encounter Consult Notes Del Dsouza MD - 11/04/2016 6:01 PM PST [place] [id number] CONSULTATION DEL DSOUZA MD Patient: SMITHA RIDER Admitting: HUGO GODFREY MR #: [id number] LOC: PT TYPE: Adm Date: 11/04/2016 : [...] time. She is in the [facility] and is here with a friend. HOME [...] 11/04/2016 18:01:37 Transcribed on 11/04/2016 18:23:36 by [facility] job# [id number] Confirmation #: [id number] cc: ZULEYKA MARTÍNEZ CRNPElectronically signed by Del [...] ready to go home. lan of Zaki dominique - Avril Brooks RN - 11/05/2016 1:02 PM PSTProblem: Discharge Planning Goal: Patient will be discharged in a safe manner Outcome: Unchanged Discharge planning: This CM spoke with Smitha at her bedside regarding her discharge plans. She lives in a home in [place] on the main floor. There are two steps to enter the house. Smitha lives on the main level, Brigitte lives in the upstairs and [facility] Prior to hospitalization Smitha was independent in her ADL's. 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 Smitha does not own or use any DME. No DME company preference. She declines the need for for SNF and HH. Her PCP is Zuleyka Martínez and she uses [facility] or [facility] in [place] . Her daughters will be her ride home when she is stable for discharge. No discharge needs noted. Electronically signed by: Avril Brooks RN 11/05/2016 13:02 lan of Care - Murphy Farfan Chaplain - 11/05/2016 10:25 AM PST Spiritual Care Smitha Rider is a 56 y.o. female who is admitted for Pneumothorax after biopsy [J95.8 11]. Spiritual Evaluation: Not especially sabianism, but did appreciate union organizer visit. Spiritual Intervention: Active Listening, pastoral presence. Spiritual Outcomes: Appreciates Plum Packer Visit Spiritual Goals / Follow-up: Will see the patient as requested. If there are any other spiritual care issues that arise, please contact union organizer. lan of Care - Ursula Marc RN [...] Dsouza MD - 11/04/2016 6:05 PM PST [place] [address] [address] [facility] [id number] OPERATIVE REPORT DEL DSOUZA MD Patient: SMITHA RIDER Admitting: HUGO GODFREY MR #: [id number] LOC: PT TYPE: [facility] Date: 11/04/2016 : 1960 DATE: 11-04-16 [...] of air was noted. The smallest available, 24-Irish ch est tube was placed and attached [...] 11/04/2016 18:05:06 Transcribed on 11/04/2016 18:58:44 by [facility] job# [id number] Confirmation #: [id number] cc: ZULEYKA RICHElectrondustin signed by Del Dsouza [...] [place] | | | | | | [address] | | | | | | | | +--------+ + + + + | 08/12/ | Hospital | Infusion Therapy | Elmer Silva | | | 2019 | Encounter | | MD Laz[address] Dominique | | | | | | [place] | | | | | | [address] | | | | | | | | +--------+ + + + + | 08/12/ | Appointment | Oncology | Lionel Benson | | 2019 | | | J, PharmD [address] | | | | | | [address] [place] | | | | | | [place] [address] | | | | | | [phone] | | | | | | | | +--------+ + + + + | 08/19/ | Appointment | Oncology | Elmer Silva | | | 2019 | | | E, [address] | | | | | | [place], [place] | | | | | | [address] | | | | | | | | +--------+ + + + + | 08/19/ | Appointment | Infusion Therapy | Elmer Silva | | | 2019 | | | E, [address] | | | | | | ST [place], [place] | | | | | | [address] | | | | | | | [...] 2019 | Visit | | MD Lazaro [address]Dminique [address] | | | | | | [place] | | | | | | [address] | | | | | | | | +--------+ + + + + | 09/09/ | Appointment | Infusion Therapy | | | | 2019 | | | | | +--------+ + + + + | 09/16/ | Office | Oncology | Elmer Silva | | | 2019 | Visit | | MD Lazaro Dominique | | | | | | [place] | | | | | | [address] | | | | | | | [...] [place] | | | | | | [address] | | | | | | | [...] [place] | | | | | | [address] | | | | | | | [...] + +--------+ + + + | EXTRA LAVIBIS TOP | Routin | 11/06/2016 | | [...] ST. | [address] | [place], [place] | [phone] | | [facility] | | [address] | | | - LABORATORY | | [...] + | [address] | [address] | [place] | [phone] | | [facility] | | [address] | | | - LABORATORY | | [...] | non- | FILTRATION | | [facility] | | | Cymro | RATE,ESTIMATED | | MEDICAL | | | | mL/min/1.01f1Qgan than | | CENTER - | | [...] ST. | [address] | [place] | [phone] | | [facility] | | [address] | | | - LABORATORY | | [...] study were reported by the [facility] radiologist on November | | | [...] study were reported by the [facility] radiologist on | | November 05, [...] + | [address] | [address] | [place] | [phone] | | [facility] | | [address] | | | - LABORATORY | | [...] | | [facility] | | | Cymro | RATE,ESTIMATED | | MEDICAL | | | | mL/min/1.10m6Rich than | | CENTER - | | [...] ST. | [address] | [place] | [phone] | | [facility] | | [address] | | | - LABORATORY | | [...] + | [address] | [address] | [place] | [phone] | | [facility] | | [address] | | | - LABORATORY | | [...] | hours. Dictated and Signed by: Hugo Epifanio, MD Electronically | | | signed: 11/04/2016 [...] performed through the introducer with an 18-gauge [place] biopsy | | | gun, producing small [...] CT September 23 and June 02, PET/CT [place] | | 17PROCEDURE: After explaining the potential [...] rajinder was made to | | accommodate lln54-nlgwh introducer needle, which was advanced to the margin of the | | nodulewithout difficulty utilizing CT guidance, and an intercostal PA approach. | | Fivecore biopsies of the nodule were performed through the introducer with ss17-xztfd | | Biopince biopsy gun, producing small [...] | | Top Tube | | | . JOC[facility] | | [...] [address] | [place] | [phone] | | [facility] | | [address] | | | - LABORATORY | | [...] [address] | [place] | [phone] | | [facility] | | [address] | | | - LABORATORY | | [...] + | [address] [facility] | [address] | [place] | [phone] | | [facility] | | [address] | | | - LABORATORY | | [...] 11/05/16. As part | | | of [facility]' Quality Improvement Program, this case was | | | reviewed by another member of our pathology staff. | | | CLR:[facility]:C1NR GROSS DESCRIPTION: The specimen is received in | | | formalin in a container labeled "Smitha Rider, Alfonso lung". Received are | | | four cip-xzvgx-qpg needle core fragments ranging in length from | | | 0.3-0.6 cm by average diameter of 0.15 cm, entirely submitted in | | | cassette (A1). CLR:[facility] MICROSCOPIC EXAMINATION: Histologic | | [...] | and its performance characteristics determined by [facility]. | | | It has not been cleared or approved by the U.S. Food and Drug | | | Administration. The FDA has determined that such clearance or | | | approval is not necessary. This test is used for clinical purposes. | | | It should not be regarded as investigational or for research. | | | [facility] is certified under the Clinical Laboratory | | | Improvement Amendments of 1988 (CLIA) as qualified to perform high | | | complexity clinical laboratory testing PERFORMING LABORATORY: | | | Tissue processing and slide preparation were performed by [facility] | | | [facility], [address], [place] [address] | | | (Feed Mill Supervisor: Eliezer Helm M.D.; CLIA#: [id number]). | | | Professional interpretation was performed by [facility], [address], [place] [address] (Feed Mill Supervisor: Eliezer | | | Russ Helm; CLIA#: [id number]). Review for send out and | | | technical processing was performed by [facility] | | | [facility], [address] [place] [address] | | | [address] (Feed Mill Supervisor: Eliezer Helm M.D.; CLIA#: | | | [id number]). REASON FOR ADDENDUM: To add request for molecular | | | testing. ADDENDUM COMMENT: At the request of Milton Salazar MD | | | archived slide(s) and block(s) for case [id number] are retrieved on | | | Smitha Rider and are reviewed by a pathologist to assess | | | adequacy for PD-L1 (Keytruda) testing. Block A1 is sent to | | | [facility] [place] JVR:[facility] PERFORMING | | | LABORATORY: The Technical Component Processing and Analysis of this | | | test was completed at [facility], [address] [place] [address] | | | [place], [place] / [address] / [phone] / CLIA #[id number] / Medical | | | Director: Dr. Doc Chakraborty. The Professional Component of this | | | test was completed at [facility], [address] [place] [address], [address], | | | [place], [place] / [address] / [phone] / CLIA # [id number] / Medical | | | Director: Dr. Mita Salgado, (Accession / CaseNo: [id number] / | | | [id number]). A detailed copy of the report is [...] | | | 50 mcg, Intravenous, EVERY | | 17 3:33 | | | [...] 100 mcg | | | | Starting [facility] 11/04/16 at 1105 | | 17 [...] PST | | | | | Starting [facility] 11/05/16 at 1753, For | | [...] | | | | | | | [phone])., | | | | | | + [...]
--- OUTSIDE RECORDS SUMMARY | ~2020-08-08 | XMS | Encounter Summary ---
Demographics + + + | Address | [address] | | | [place] [address] | + + + | Home Phone [...] Team Providers + +------+ + | Care Fuel Cell Systems Engineer Name | Role | Phone | + +------+ + PCP | Unavailable | + +------+ + Encounter Details +--------+ + + + + | Date | Type | Department | Care Team | Description | +--------+ + + + + | 01/04/ | Hospital | [facility] | | | | 1999 | Encounter | MED CTR GENERIC OP | | | | | | CONV DEPT [address] | | | | | | [place], | | | | | | [place] [address] | | | | | | [phone] | | | +--------+ + + + [...] [place] | | | | | | [address] | | | | | | | | +--------+ + + + + | 08/12/ | Hospital | Infusion Therapy | Elmer Silva | | | 2019 | Encounter | | MD Lazaro Dominique | | | | | | [place] | | | | | | [address] | | | | | | | | +--------+ + + + + | 08/12/ | Appointment | Oncology | Lionel Benson | | 2019 | | | Ze Un[address] | | | | | | [address] | | | | | | [place] [address] | | | | | | [phone] | | | | | | | | +--------+ + + + + | 08/19/ | Appointment | Oncology | Elmer Silva | | | 2019 | | | E, [address] | | | | | | [place] | | | | | | [address] | | | | | | | | +--------+ + + + + | 08/19/ | Appointment | Infusion Therapy | Elmer Silva | | | 2019 | | | E, MD [address] | | | | | | [place] | | | | | | [address] | | | | | | | [...] [place] | | | | | | [address] | | | | | | | [...] [place] | | | | | | [address] | | | | | | | [...] [place] | | | | | | [address] | | | | | | | [...] [place] | | | | | | [address] | | | | | | | | +--------+ + + + + documented as of this encounter Visit Diagnoses Not on filedocumented in this encounter"
--- OUTSIDE RECORDS SUMMARY | ~2020-08-08 | XMS | Encounter Summary ---
Demographics + + + | Address | [address] | | | [place] [address] | + + + | Home Phone [...] Team Providers + +------+ + | Care Liquor Grinder Mill Operator Name | Role | Phone | + +------+ + | Zuleyka Martínez | PCP | | + +------+ + Encounter Details +--------+ + + + + | Date | Type | Department | Care Team | Description | +--------+ + + + + | 08/02/ | Orders Only | [facility] | Riccard[facility]ree Elmer | | | 2019 | | MED CTR MEDICAL | MD Trip [address] | | | | | [facility] [address] [place], [place] | | | | | [place] [address] [place] | [address] | | | | | [facility] [place] [address] | | | | | | [phone] | | | +--------+ + + + [...] encounter Progress Notes Elmer Silva MD - 08/02/2020 10:15 AM PDTWithout question, chemo-IO is the appropri ate treatment for Ms. Rider. I had originally suggested Taxol/Carbo/Pembro in light of her pr evious exposure to Alimta. This was rejected, and after a Vwch-fe-Hjbn conference, I ordered Carbo/Alimta/Pembro as I was told this was the standard for adeno of the lung. This was the n rejected by the very people who told me to do that. Today there was a second Tygz-ej-Ghxc and it was suggested that I use Carbo/Abraxane/Atezolizumab. This order was placed.Taina bowling signed by Elmer Silva MD at 08/02/2020 10:25 AM PDTdocumented in this encounte r Plan of Treatment +--------+ + + + + | Date | Type | Specialty | Care Team | Description | +--------+ + + + + | 08/12/ | Appointment | Oncology | Elmer Silva | | 2019 | | | MD Lazaro Dominique | | | | | | [place], [place] | | | | | | [address] | | | | | | | | +--------+ + + + + | 08/12/ | Hospital | Infusion Therapy | Elmer Silva | | | 2019 | Encounter | | MD Trip [address] | | | | | | [place] | | | | | | [address] | | | | | | | | +--------+ + + + + | 08/12/ | Appointment | Oncology | Lioenl Benson | | | 2019 | | | Ze Unger [address] | | | | | | [address] [place] | | | | | | [place] [address] | | | | | | [phone] | | | | | | | | +--------+ + + + + | 08/19/ | Appointment | Oncology | Elmer Silva | | | 2019 | | | MD Trip [address] | | | | | | [place] | | | | | | [address] | | | | | | | | +--------+ + + + + | 08/19/ | Appointment | Infusion Therapy | Elmer Silva | | | 2019 | | | MD Trip [address] | | | | | | [address] [place] | | | | | | [address] | | | | | | | [...] [place] | | | | | | [address] | | | | | | | [...] [place] | | | | | | [address] | | | | | | | [...] [place] | | | | | | [address] | | | | | | | [...] [place] | | | | | | [address] | | | | | | | | +--------+ + + + + documented as of this encounter Visit Diagnoses Not on filedocumented in this encounter"
--- OUTSIDE RECORDS SUMMARY | ~2020-08-08 | XMS | Encounter Summary ---
Demographics + + + | Address | [address] | | | [place] [address] | + + + | Home Phone [...] Team Providers + +------+ + | Care News Production Assistant Name | Role | Phone | + +------+ + | Zuleyka Martínez | PCP | | + +------+ + Encounter Details +--------+ + + + + | Date | Type | Department | Care Team | Description | +--------+ + + + + | 02/22/ | Preadmit | [facility] | Lemuel Da Silva DO | | | 2019 | Visit | CENTER [facility] | [address] | | | | | CLINIC [address] | | | [address] [place], [place] | [place] [address] | | | | | [address] | [phone] | | | | | [phone] | | | +--------+ + + + [...] [place] | | | | | | [address] | | | | | | | | +--------+ + + + + | 08/12/ | Hospital | Infusion Therapy | Elmer Silva | | 2019 | Encounter | | MD Lazaro Dominique | | | | | | [place] | | | | | | [address] | | | | | | | | +--------+ + + + + | 08/12/ | Appointment | Oncology | Lionel Benson | | | 2019 | | | JZe [address] | | | | | [address] [place] | | | | | | [place] [address] | | | | | | [phone] | | | | | | | | +--------+ + + + + | 08/19/ | Appointment | Oncology | Elmer Silva | | | 2019 | | | E, [address] | | | | | | [place], [place] | | | | | | [address] | | | | | | | | +--------+ + + + + | 08/19/ | Appointment | Infusion Therapy | Elmer Silva | | | 2019 | | | E, [address] | | | | | | [address] [place], [place] | | | | | | [address] | | | | | | | [...] | | | | | ST [place] | | | | | | [address] [...] [place] | | | | | | [place] | | | | | | [address] | | | | | | | [...] [place] | | | | | | [address] | | | | | | | [...] [place] | | | | | | [address] | | | | | | | | +--------+ + + + + documented as of this encounter Visit Diagnoses Not on filedocumented in this encounter"
--- OUTSIDE RECORDS SUMMARY | ~2020-08-08 | XMS | Encounter Summary ---
Demographics + + + | Address | [address] | | | [place] [address] | + + + | Home Phone [...] Team Providers + +------+ + | Care Assistant Professor Of Radiology Name | Role | Phone | + +------+ + PCP | Unavailable | + +------+ + Encounter Details +--------+ + + + + | Date | Type | Department | Care Team | Description | +--------+ + + + + | 04/06/ | Hospital | [facility] | | | | 1999 | Encounter | [facility] GENER[facility] | | | | | | CONV DEPT [address] | | | | | | [place], | | | | | | [place] [address] | | | | | | [phone] | | | +--------+ + + + [...] [place] | | | | | | [address] | | | | | | | | +--------+ + + + + | 08/12/ | Hospital | Infusion Therapy | Elmer Silva | | | 2019 | Encounter | | MD Lazaro Dominique | | | | | | [place] | | | | | | [address] | | | | | | | | +--------+ + + + + | 08/12/ | Appointment | Oncology | Lionel Benson | | 2019 | | | Ze Unger [address] | | | | | | [address] | | | | | | [place] [address] | | | | | | [phone] | | | | | | | | +--------+ + + + + | 08/19/ | Appointment | Oncology | Elmer Silva | | | 2019 | | | E, [address] | | | | | | [place] | | | | | | [address] | | | | | | | | +--------+ + + + + | 08/19/ | Appointment | Infusion Therapy | Elmer Silva | | | 2019 | | | E, MD [address] | | | | | | [place] | | | | | | [address] | | | | | | | [...] [place] | | | | | | [address] | | | | | | | [...] [place] | | | | | | [address] | | | | | | | [...] [place] | | | | | | [address] | | | | | | | [...] [place] | | | | | | [address] | | | | | | | | +--------+ + + + + documented as of this encounter Visit Diagnoses Not on filedocumented in this encounter"
--- OUTSIDE RECORDS SUMMARY | ~2020-08-08 | XMS | Encounter Summary ---
Demographics + + + | Address | [address] | | | [place] [address] | + + + | Home Phone [...] Providers + +------+ + | Care Hand Welt Butter Name | Role | Phone | + [...] [place], [place] | | | | | [place], | [address] | | | | | [place] [address] | | | | | | [phone] | | | +--------+ + + + [...] [place] | | | | | | [address] | | | | | | | | +--------+ + + + + | 08/12/ | Hospital | Infusion Therapy | Elmer Silva | | | 2019 | Encounter | | E, [address] | | | | | | ST [place], [place] | | | | | | [address] | | | | | | | | +--------+ + + + + | 08/12/ | Appointment | Oncology | Lionel Benson | | | 2019 | | | Ze Unger [address] | | | | | | [address] [place] | | | | | | [place] [address] | | | | | | [phone] | | | | | | | | +--------+ + + + + | 08/19/ | Appointment | Oncology | Elmer Silva | | | 2019 | | | E, [address] | | | | | | ST [place], [place] | | | | | | [address] | | | | | | | | +--------+ + + + + | 08/19/ | Appointment | Infusion Therapy | Elmer Silva | | | 2019 | | | E, [address] | | | | | | ST [place], [place] | | | | | | [address] | | | | | | | [...] [place] | | | | | | [address] | | | | | | | [...] [place] | | | | | | [address] | | | | | | | [...] [place] | | | | | | [address] | | | | | | | [...]
--- OUTSIDE RECORDS SUMMARY | ~2020-08-08 | XMS | Encounter Summary ---
Demographics + + + | Address | [address] | | | [place] [address] | + + + | Home Phone [...] Team Providers + +------+ + | Care Department Operations Manager Name | Role | Phone [...] + | 04/08/ | Telephone | [facility] | Milton Salazar | Lab Results | | 2020 | | MED CTR MEDICAL | MD Bebeto [address] | | | | | ONCOLOGY CLINIC [address] | [address] [facility] | | | | | [address] | [place] [address] | | | | | [place] [address] | [phone] | | | | | [phone] | | | +--------+ + + + [...] not have as prev ious testing through [facility] demonstrating normal STK 11. This is thus [...] [place] | | | | | | [address] | | | | | | | | +--------+ + + + + | 08/12/ | Hospital | Infusion Therapy | Elmer Silva | | | 2019 | Encounter | | MD Trip [address] | | | | | | ST [place], [place] | | | | | | [address] | | | | | | | | +--------+ + + + + | 08/12/ | Appointment | Oncology | Lionel Benson | | | 2019 | | | Cornel, PharmCorky [address] | | | | | | [address] [place] | | | | | | [place] [address] | | | | | | [phone] | | | | | | | | +--------+ + + + + | 08/19/ | Appointment | Oncology | Elmer Silva | | | 2019 | | | EMD [address] | | | | | | ST [place], [place] | | | | | | [address] | | | | | | | | +--------+ + + + + | 08/19/ | Appointment | Infusion Therapy | Elmer Silva | | | 2019 | | | MD Lazaro Dominique [address] | | | | | | [place] | | | | | | [address] | | | | | | | [...] [place] | | | | | | [address] | | | | | | | [...] [place] | | | | | | [address] | | | | | | | | +--------+ + + + + | 09/16/ | Appointment | Infusion Therapy | | | | 2019 | | | | | +--------+ + + + + | 09/23/ | Office | Oncology | Elmer Silva | | | 2019 | Visit | | MD Lazaro Dominique | | | | | | [facility] [place] | | | | | | [address] | | | | | | | [...] [place] | | | | | | [address] | | | | | | | | +--------+ + + + + documented as of this encounter Visit Diagnoses Not on filedocumented in this encounter"
--- OUTSIDE RECORDS SUMMARY | ~2020-08-08 | XMS | Encounter Summary ---
Demographics + + + | Address | [address] | | | [place] [address] | + + + | Home Phone [...] Team Providers + +------+ + | Care Ecological Technical Officer Name | Role | Phone | [...] of | MD [address] | [address] [place] | | | | | thyroid | [address] | [place], | | | | | gland (HCC) | [place], | [place] [address] | | | | | Procedures | [place] [address] | Phone: | | | | | [place] | Phone: | [phone] | | | | | INJECTION, | [phone] | Fax: | | | | | THYROTROPIN | Fax: | [phone] | | | | | ALPHA, 0. 9 | [phone] | | | | | | MG, [...] + + | 10/12/ | Hospital | [facility] | Susie Montemayor | Malignant neoplasm | | 2016 | Encounter | MED CTR CHEMO | MD Jared [address] | of thyroid gland | | | | INFUSION [address] | [address] [place], [place] | (HCC) | | | | [place], | [address] | | | | | [place] [address] | | | | | | [phone] | | | +--------+ + + + [...] back tomorrow and next day. Lives in [place], [place] and had rough time getting here [...] [place] | | | | | | [address] | | | | | | | | +--------+ + + + + | 08/12/ | Hospital | Infusion Therapy | Elmer Silva | | | 2019 | Encounter | | E, [address] | | | | | | [place] | | | | | | [address] | | | | | | | | +--------+ + + + + | 08/12/ | Appointment | Oncology | Lionel Benson | | | 2019 | | | J, PharmCorky [address] | | | | | | [address] | | | | | | [place] [address] | | | | | | [phone] | | | | | | | | +--------+ + + + + | 08/19/ | Appointment | Oncology | Elmer Silva | | | 2019 | | | E, [address] | | | | | | ST [place], [place] | | | | | | [address] | | | | | | | | +--------+ + + + + | 08/19/ | Appointment | Infusion Therapy | Elmer Silva | | | 2019 | | | E, [address] | | | | | | ST [place], [place] | | | | | | [address] | | | | | | | [...] | | | | [place] | | | | | | [address] | | | | | | | [...] [place] | | | | | | [address] | | | | | | | [...] [place] | | | | | | [address] | | | | | | | [...] | | | | | [place] | | | | | | [address] | | | | | | | [...]
--- OUTSIDE RECORDS SUMMARY | ~2020-08-08 | XMS | Encounter Summary ---
Demographics + + + | Address | [address] | | | [place] [address] | + + + | Home Phone [...] Team Providers + +------+ + | Care Predatory Animal Hunter Name | Role | Phone | + [...] + + | 03/26/ | Hospital | [facility] | Deni Hassan | Secondary | | 2020 | Encounter | MED CTR RADIATION | MD Sumaya [address] | adenocarcinoma of | | | | ONCOLOGY CLINIC [address] | [place], [place] | brain (HCC) (Primary | | | | [address] [place] [place] | [address] | Dx) | | | | [place] [address] | | | | | | [phone] | | | +--------+ + + + [...] Ph.D. Radiation Oncologist Department of Radiation Oncology [facility] Office: [phone] signed by Deni Hassan MD at 03/26/2020 [...] | | | | [place] | | | | | | [address] | | | | | | | | +--------+ + + + + | 08/12/ | Hospital | Infusion Therapy | Elmer Silva | | | 2019 | Encounter | | E, MD [address] | | | | | | ST [place] | | | | | | [address] | | | | | | | | +--------+ + + + + | 08/12/ | Appointment | Oncology | Lionel Benson | | | 2019 | | | Ze Unger [address] | | | | | | [address] [facility] | | | | | | [place] [address] | | | | | | [phone] | | | | | | | | +--------+ + + + + | 08/19/ | Appointment | Oncology | Elmer Silva | | | 2019 | | | E, MD [address] | | | | | | ST [place], [place] | | | | | | [address] | | | | | | | | +--------+ + + + + | 08/19/ | Appointment | Infusion Therapy | lEmer Silva | | | 2019 | | | E, [address] | | | | | | ST [place], [place] | | | | | | [address] | | | | | | | [...] | | | | [place] | | | | | | [address] | | | | | | | [...] [place] | | | | | | [address] | | | | | | | [...] [place] | | | | | | [address] | | | | | | | [...] | | | | | | [place] [facility] [place] | | | | | | [address] | | | | | | | | +--------+ + + + + documented as of this encounter Visit Diagnoses + + | Diagnosis | + + | 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
--- OUTSIDE RECORDS SUMMARY | ~2020-08-08 | XMS | Encounter Summary ---
Demographics + + + | Address | [address] | | | [place] [address] | + + + | Home Phone [...] + + + | Author | [facility] | | | and [place] | + + + | Organization | [facility] | | | and [...] Team Providers + +------+ + | Care Health And Safety Consultant Name | Role | Phone | [...] Refill | | 2017 | | MED [facility] | MD Bebeto [address] | | | | | ONCOLOGY CLINIC [address] | [facility] | | | | | [address] | [place] [address] | | | | | [place] [address] | [phone] | | | | | [phone] | | | +--------+--------+ + + + [...] [place] | | | | | | [address] | | | | | | | | +--------+ + + + + | 08/12/ | Hospital | Infusion Therapy | Elmer Silva | | 2019 | Encounter | | MD Lazaro Dominique | | | | | | [place] | | | | | | [address] | | | | | | | | +--------+ + + + + | 08/12/ | Appointment | Oncology | Lionel Benson | | | 2019 | | | J, PharmD [address] | | | | | | [address] [place] | | | | | | [place] [address] | | | | | | [phone] | | | | | | | | +--------+ + + + + | 08/19/ | Appointment | Oncology | Elmer Silva | | | 2019 | | | E, [address] | | | | | | ST [place], [place] | | | | | | [address] | | | | | | | | +--------+ + + + + | 08/19/ | Appointment | Infusion Therapy | Elmer Silva | | | 2019 | | | E, [address] | | | | | | ST [place], [place] | | | | | | [address] | | | | | | | [...] [place] | | | | | | [address] | | | | | | | [...] [place] | | | | | | [address] | | | | | | | [...] [place] | | | | | | [address] | | | | | | | [...] [place] | | | | | | [address] | | | | | | | | +--------+ + + + + documented as of this encounter Visit Diagnoses + + | Diagnosis | + + | Non-small cell cancer of right lung (HCC) - Primary | + + documented in this encounter"
--- OUTSIDE RECORDS SUMMARY | ~2020-08-08 | XMS | Encounter Summary ---
Demographics + + + | Address | [address] | | | [place] [address] | + + + | Home Phone [...] Team Providers + +------+ + | Care Casting Operator Name | Role | Phone | + +------+ + | Zuleyka Martínez | PCP | | + +------+ + Encounter Details +--------+ + + + + | Date | Type | Department | Care Team | Description | +--------+ + + + + | 07/07/ | Hospital | [facility] | Susie Montemayor | | | 2020 | Encounter | MED CTR RADIATION | Jared, [address] | | | | | ONCOLOGY [address] | ST [place], [place] | | | | | [place], | [address] | | | | | [place] [address] | | | | | | [phone] | | | +--------+ + + + [...] [place] | | | | | | [address] | | | | | | | | +--------+ + + + + | 08/12/ | Hospital | Infusion Therapy | Elmer Silva | | 2019 | Encounter | | MD Lazaro Dominique | | | | | | [place] | | | | | | [address] | | | | | | | | +--------+ + + + + | 08/12/ | Appointment | Oncology | Lionel Benson | | 2019 | | | Ze Unger [address] | | | | | | [address] [place] | | | | | | [place] [address] | | | | | | [phone] | | | | | | | | +--------+ + + + + | 08/19/ | Appointment | Oncology | Elmer Silva | | 2019 | | | Trip, [address] | | | | | | ST [place], [place] | | | | | | [address] | | | | | | | | +--------+ + + + + | 08/19/ | Appointment | Infusion Therapy | Elmer Silva | | | 2019 | | | E, [address] | | | | | | ST [place], [place] | | | | | | [address] | | | | | | | [...] [place] | | | | | | [address] | | | | | | | [...] [place] | | | | | | [address] | | | | | | | [...] [place] | | | | | | [address] | | | | | | | [...] [place] | | | | | | [id number] | | | | | | | | +--------+ + + + + documented as of this encounter Visit Diagnoses Not on filedocumented in this encounter"
--- OUTSIDE RECORDS SUMMARY | ~2020-08-08 | XMS | Encounter Summary ---
Demographics + + + | Address | [address] | | | [place] [address] | + + + | Home Phone [...] Team Providers + +------+ + | Care Registered Nurse Obstetrics Name | Role | Phone | + +------+ + | Zuleyka Martínez | PCP | | + +------+ + Encounter Details +--------+ + + + + | Date | Type | Department | Care Team | Description | +--------+ + + + + | 10/14/ | Hospital | [facility] | Susie Montemayor | Abnormal stress ECG | | 2016 | Encounter | MED CTR MEDICAL | MD Jared [address] | with treadmill | | | | ONCOLOGY CLINIC [address] | [place], [place] | (Primary Dx); | | | | [address] [place] | [address] | Malignant neoplasm | | | | [place] [address] | | of thyroid gland | | | | [phone] | | (HCC); Precordial | | | [...] [place] | | | | | | [address] | | | | | | | | +--------+ + + + + | 08/12/ | Hospital | Infusion Therapy | Elmer Silva | | | 2019 | Encounter | | E, [address] | | | | | | ST [place] | | | | | | [address] | | | | | | | | +--------+ + + + + | 08/12/ | Appointment | Oncology | Lionel Benson | | | 2019 | | | J, PharmD [address] | | | | | | [address] [place] | | | | | | [place] [address] | | | | | | [phone] | | | | | | | | +--------+ + + + + | 08/19/ | Appointment | Oncology | Elmer Silva | | | 2019 | | | E, [address] | | | | | | ST [place] | | | | | | [address] | | | | | | | | +--------+ + + + + | 08/19/ | Appointment | Infusion Therapy | Elmer Silva | | | 2019 | | | MD Lazaro Dominique [address] | | | | | | ST [place] | | | | | | [address] | | | | | | | [...] [place] | | | | | | [address] | | | | | | | [...] [place] | | | | | | [address] | | | | | | | [...] [place] | | | | | | [address] | | | | | | | [...] [place] | | | | | | [address] | | | | | | | [...] ST. | [address] | [place], [place] | [phone] | | [facility] | | [address] | | | - LABORATORY | | [...] [place] | | | | | | [address] | | | | + + + [...] | | | | | | Performed: [facility], [address] | | | | | [address], [place] | | | | | | [address] | | | | + + + + + + + + | Specimen | + + | Blood specimen | | (specimen) | + + + + + + + | Performing | Address | City/State/Zipcode | Phone Number | | Organization | | | | + + + + + | [facility] | [address] | [place] [address] | [phone] | + + + + + documented [...]
--- OUTSIDE RECORDS SUMMARY | ~2020-08-08 | XMS | Encounter Summary ---
Demographics + + + | Address | [address] | | | [place] [address] | + + + | Home Phone [...] Team Providers + +------+ + | Care Slide Machine Tender Name | Role | Phone | [...] [place] | | | | | | [address] | | | | | | [phone] | | | +--------+ + + + [...] [place] | | | | | | [address] | | | | | | | | +--------+ + + + + | 08/12/ | Hospital | Infusion Therapy | Elmer Silva | | | 2019 | Encounter | | E, [address] | | | | | | ST [place], [place] | | | | | | [address] | | | | | | | | +--------+ + + + + | 08/12/ | Appointment | Oncology | Lionel Benson | | | 2019 | | | Cornel, Ze [address] | | | | | | [address] [place] | | | | | | [place] [address] | | | | | | [phone] | | | | | | | | +--------+ + + + + | 08/19/ | Appointment | Oncology | Elmer Silva | | | 2019 | | | E, [address] | | | | | | ST [place], [place] | | | | | | [address] | | | | | | | | +--------+ + + + + | 08/19/ | Appointment | Infusion Therapy | Elmer Silva | | | 2019 | | | E, [address] | | | | | | ST [place], [place] | | | | | | [address] | | | | | | | [...] [place] | | | | | | [address] | | | | | | | [...] [place] | | | | | | [address] | | | | | | | [...] [place] | | | | | | [address] | | | | | | | [...]
--- OUTSIDE RECORDS SUMMARY | ~2020-08-08 | XMS | Encounter Summary ---
Demographics + + + | Address | [address] | | | [place] [address] | + + + | Home Phone [...] Providers + +------+ + | Care Fitness Worker Name | Role | Phone | + +------+ + | Zuleyka Martínez | PCP | | + +------+ + Encounter Details +--------+ + + + + | Date | Type | Department | Care Team | Description | +--------+ + + + + | 11/11/ | Hospital | [facility] | Susie Montemayor | Pneumothorax after | | 2017 | Encounter | MED CTR MEDICAL | MD Jared [address] | biopsy (Primary Dx); | | | | ONCOLOGY CLINIC [address] | ST [place], [place] | Malignant neoplasm | | | | [address] [place] | [address] | of thyroid gland | | | | [place] [address] | | (HCC) | | | | [phone] | | | +--------+ + + + [...] [place] | | | | | | [address] | | | | | | | | +--------+ + + + + | 08/12/ | Hospital | Infusion Therapy | Elmer Silva | | | 2019 | Encounter | | E, [address] | | | | | | ST [place] | | | | | | [address] | | | | | | | | +--------+ + + + + | 08/12/ | Appointment | Oncology | Lionel Benson | | | 2019 | | | J, PharmCorky [address] | | | | | | [address] [place] | | | | | | [place] [address] | | | | | | [phone] | | | | | | | | +--------+ + + + + | 08/19/ | Appointment | Oncology | Elmer Silva | | | 2019 | | | E, [address] | | | | | | [place] | | | | | | [address] | | | | | | | | +--------+ + + + + | 08/19/ | Appointment | Infusion Therapy | Elmer Silva | | 2019 | | | E, [address] | | | | | | [place] | | | | | | [address] | | | | | | | [...] | | | | | ST [place] [facility] | | | | | | [address] | | | | | | | [...] [place] | | | | | | [address] | | | | | | | [...] [place] | | | | | | [address] | | | | | | | [...] | | | | | [place] | | | | | | [address] | | | | | | | [...] | [address] | [place] | [phone] | | [facility] | | [address] | | | - LABORATORY | | [...] | samples are screened | uIU/mL | [facility] | | | | using a 2nd [...] + | [facility] | [address] | [place] | [phone] | | [facility] | | [address] | | | - LABORATORY | | [...]
--- OUTSIDE RECORDS SUMMARY | ~2020-08-08 | XMS | Encounter Summary ---
Demographics + + + | Address | [address] | | | [place] [address] | + + + | Home Phone [...] Team Providers + +------+ + | Care Child Nurse Name | Role | Phone | [...] + + + | Closed | | Oncology | Diagnoses | Stephen, | Marie | | | | | Breast | Luis Felipe Dunne | Milton | | | | | cancer | [address] | MD Bebeto | | | | | Procedures | Chelle Colon | [address] | | | | | [place] OFFICE | Efrem | [address] [place] | | | | | OUTPATIENT | OR | [place] | | | | | NEW [address] | [address] | [address] Phone: | | | | | MINUTES | Phone: | [phone] | | | | | | [phone] | Fax: | | | | | | | [phone] | +--------+--------+ + + + + Encounter Details +--------+ + + + + | Date | Type | Department | Care Team | Description | +--------+ + + + + | 08/08/ | Hospital | [facility] | Milton Salazar | Primary malignant | | 2019 | Encounter | [facility] | MD [address] | neoplasm of female | | | | [facility] [address] | [address] [place] | breast (HCC) | | | | [address] | [place] [address] | (Primary Dx) | | | | [place] [address] | [phone] | | | | | [phone] | | | +--------+ + + + [...] | Blood Pressure | 125/83 | 08/08/2019 1:41 PM | | | | | PDT | | + + + + + | Pulse | 93 | 08/08/2019 1:41 PM | | | | | PDT | | + + + + + | Temperature | 36.7 C (98.1 F) | 08/08/2019 1:41 PM | | | | | PDT | | + + + + + | Respiratory Rate | 18 | 08/08/2019 1:41 PM | | | | | PDT | | + + + + + | Oxygen Saturation | 100% | 08/08/2019 1:41 PM | | | | | PDT | | + + + + + | Inhaled Oxygen | - | - | | | Concentration | | | | + + + + + | Weight | 87.7 kg (193 lb 5.5 | 08/08/2019 1:41 PM | | | | oz) | PDT | | + + + + + | Height | 173 cm (5' 8.11") | 08/08/2019 1:41 PM | | | | | PDT | | + + + + + | Body Mass Index | 29.3 | 08/08/2019 1:41 PM | | | | | PDT [...] of this encounter Progress Notes Amanda Mckenna, CRYSTAL GROWER - 08/08/2019 1:47 PM PDTREVIEW OF SYSTEMS Constitutional: Low energy reported. Denies high fevers, shaking chills, anorexia, nausea, vomiting, weight loss, or night sweats. Appetite without changes. Nausea continues, uses On dansetron prn w/ much relief. Ear, Nose, Mouth, Throat: Denies odynophagia, dysphagia, or tinnitus. States at times its h fallon to swallow. Cardiovascular: States shortness of breath, dyspnea on exertion. States SOB has been a li ttle worse since getting over a cold. Denies chest pain, palpitations or orthopnea. Respiratory: Denies cough, hemoptysis, or sputum production. Residual cough left from a col d~unproductive Gastrointestinal: Denies abdominal pain, constipation, diarrhea, melena, or bright red bloo d per rectum. Genitourinary: Denies hematuria. A month of dysuria. Musculoskeletal: Generalized joint pain, mostly knees and hips. Neurologic: Denies headache, visual changes, or numbness/tingling of the extremities. Endocrine: Denies peripheral edema or heat/cold intolerance. Hematologic: Denies spontaneous bruising or bleeding. Integumentary: Denies rash, wounds or other skin concerns. States concern with incision sit e outer right breast, "feels like it should be healing faster than it has been". States inc ision looks blue and gooey. Pain: Right outer breast pain at a 4/10 today. Tolerable pain level : 4>10 currently using Tylenol or Ibuprofen for pain relief. Note:Note: Pt is here for consultation with Dr. Salazar for breast cancer (R). Dx 019. Infiltrating ductal carcinoma (ER+, CA+) Her 2 (-). 5___, Para_4__, AB___, Miscarriage_1__ Age first _18__, Length of no Menarche age _14__, LMP_35__ Menopause age____ Hx HRT ___no Hx of hormonal control use no Last mmg __07/2019____, Last pap smear ____years___ My chart: Declined sent card home w/ pt. uMilton jackson MD - 08/08/2019 1:43 PM PDTFormatting of this note might be different from the origi nal. Hem-Onc Progress Note [facility] Pt. Name/Age/: Olena Rider 58 y.o. 1960 Med. Record Number: [id number] Date of admission: 08/08/2019 Assessment and plan: 1. Non-small cell lung [...] Jun, 2019 Infiltrating ductal carcinoma of intermediate histologic grade pT1c pN0(sn) ER+(99%, strong), CA+(60%, strong), Her2 non-amplified (FISH ratio 1.06) Status post left lumpectomy, sentinel lymph node biopsy, Dr. Luis Felipe Pugh, July, Counseling session this afternoon with patient first acknowledging the important decision f or recommendation for screening mammography in a patient who had already been diagnosed with 2 previous malignancies. This step is sometimes overlooked in cancer survivors in this sit uation his pain major dividends as patient's tumor discovered in an early stage with excelle nt likelihood of cure. Described the role of the medical oncologist first to assess for risk of systemic penetrati on of disease which we believe over the next decade may be as high as 10%. We described the development of molecular staging of cancer particularly applicable in patients such as this with hormone receptor expressing disease with regard to the question of benefit of adjuvant chemotherapy versus hormonal adjuvant therapy. Patient's tumor strongly expressing hormone receptors and thus excellent likelihood that this disease would derive most benefit from ho rmonal adjuvant therapy. Based on patient's interest we will proceed with Oncotype DX to fu rther define. Same time we are awaiting reports from sister's hereditary testing as a means of focusing p otential similar testing for patient. We described the impact such information both with re ethel to the possibility for prophylactic surgery, and also potentially guiding with regard t o risk for additional malignancies possibility of other forms of risk reducing surgery such as oophorectomy. Subjective: The patient chart and medications were reviewed in detail and the patient was seen and exam inediamondMaximiliano Rider is a 58 y.o. female was seen today in consultation because of new discom fort of right breast cancer. 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 Surve illance imaging of that neoplasm identified the presence of a non-small cell lung cancer one year later for which patient underwent right lower lobe resection and then postsurgical adj uvant chemotherapy. Earlier this spring patient undergoing elective hip replacement therapy then complicated by the development of fracture for which patient managed on a conservative approach, and that effective which she has been to exhaust patient's benefits under FMLA. 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 Earlier this summer patient undergoing screening mammograms in June and this study disclo sing the presence of a asymmetric density involving the right breast prompting subsequent di agnostic studies including ultrasound and then ultrasound-guided core biopsy identifying the presence of an invasive adenocarcinoma. As a result patient seen in consultation by Dr. Joselin Pugh who was able to perform lumpectomy with sentinel lymph node biopsy in the last week of July. The surgery was well-tolerated and reconfirmed the presence of the invasive carcinoma. His tologic features of the neoplasm included an intermediate histologic grade but absence of ly mphovascular invasion. There were foci of ductal carcinoma in situ but margins of resection were thought to be clear. Either of two examined sentinel lymph nodes were found to harbor metastases and most consistent with early stage disease. The tumor itself strongly express ed the estrogen receptor at 99% of cells with strong average staining together with expressi on of the progesterone receptor with similarly strong being of 60% of cells. Patient's clinical history also notable for family history of breast cancer including hayden r who has recently been diagnosed with an aggressive form of disease and for which patient h as been receiving adjuvant chemotherapy. She has been undergoing hereditary testing with re sults that are expected eminently. Recall the patient's mother also diagnosed with breast c ancer in her mid 50s, and illness from which she . PSH: Reviewed, no changes to admission H&P. [...] COLECTOMY HYSTERECTOMY THYROIDECTOMY Review of Systems: Constitutional: Low energy reported. Denies high fevers, shaking chills, anorexia, nausea, vomiting, weight loss, or night sweats. Appetite without changes. Nausea continues, uses On dansetron prn w/ much relief. Ear, Nose, Mouth, Throat: Denies odynophagia, dysphagia, or tinnitus. States at times its h fallon to swallow. Cardiovascular: States shortness of breath, dyspnea on exertion. States SOB has been a li ttle worse since getting over a cold. Denies chest pain, palpitations or orthopnea. Respiratory: Denies cough, hemoptysis, or sputum production. Residual cough left from a col d~unproductive Gastrointestinal: Denies abdominal pain, constipation, diarrhea, melena, or bright red bloo d per rectum. Genitourinary: Denies hematuria. A month of dysuria. Musculoskeletal: Generalized joint pain, mostly knees and hips. Neurologic: Denies headache, visual changes, or numbness/tingling of the extremities. Endocrine: Denies peripheral edema or heat/cold intolerance. Hematologic: Denies spontaneous bruising or bleeding. Integumentary: Denies rash, wounds or other skin concerns. States concern with incision sit e outer right breast, "feels like it should be healing faster than it has been". States inc ision looks blue and gooey. Pain: Right outer breast pain at a 4/10 today. Tolerable pain level : 4>10 currently using Tylenol or Ibuprofen for pain relief. Note:Note:Pt is here for consultation with Dr. Salazar for breast cancer (R). Dx 2018. Infiltrating ductal carcinoma (ER+, CA+) Her 2 (-). 5___, Para_4__, AB___, Miscarriage_1__ Age first _18__, Length of no Menarche age _14__, LMP_35__ Menopause age____ Hx HRT ___no Hx of hormonal control use no Last mmg __07/2019____, Last pap smear ____years___ Review of systems as above otherwise negative Scheduled Medications: Continuous Infusions: PRN Meds:. Allergy: Allergies Allergen Reactions Morphine Anaphylaxis and Other (See Comments) Morphine And Related Other (See Comments) "unknown reaction - trouble breathing after hysterectomy" Current Outpatient Medications on File Prior to Encounter Medication Sig Dispense Refill ALPRAZolam (XANAX) 0.25 [...] by mouth nightly as needed for Sleep. Current Facility-Administered Medications on File Prior to Encounter Medication Dose Route Frequency Provider Last Rate Last Dose [COMPLETED] iohexol (OMNIPAQUE 350) 350 mg/mL injection 75 mL 75 mL Intravenous Once P RN Milton Salazar MD 75 mL at 08/08/19 1056 Objectives: on Min/Max Temp past 24 hours:No data recorded No intake or output data in the 24 hours ending 08/08/19 1343 Wt. Admission: Wt. Current: Physical Exam: Exam: General: The patient is alert and oriented. No acute distress. HEENT: PERRL, Oral mucosa intact. Neck is supple. Cardiovascular: Regular rate and rhythm, no murmur. Respiratory: Clear to auscultation and percussion. Breast: Small area of wound dehiscence over the lower outer margin of the lumpectomy site; adjoining right sentinel lymph node axillary scar well-healed. Breasts normal to inspection and palpation Abdomen: Soft, nontender, no hepatospenomegaly. No palpable [...] studies: Electronically signed by: Milton Salazar MD, 08/08/2019 13:43 [facility] TIME SPENT 55 MIN. > 50% AT BEDSIDE, WITH FAMILY/PATIENT IN CARE AND APPEALS NURSE ON UNIT AND CO ORDINATION OF CARE Portions of this chart may have been created with [employer] voice recognition software. Occasi onal wrong-word or [...] [place] | | | | | | [id number] | | | | | | | | +--------+ + + + + | 08/12/ | Hospital | Infusion Therapy | Elmer Silva | | | 2019 | Encounter | | MD Lazaro Dominique | | | | | | [place] | | | | | | [address] | | | | | | | | +--------+ + + + + | 08/12/ | Appointment | Oncology | Lionel Benson | | | 2019 | | | Ze Un[address] | | | | | | [address] [place] | | | | | | [place] [address] | | | | | | [phone] | | | | | | | | +--------+ + + + + | 08/19/ | Appointment | Oncology | Elmer Silva | | | 2019 | | | E, [address] | | | | | | ST [place] | | | | | | [address] | | | | | | | | +--------+ + + + + | 08/19/ | Appointment | Infusion Therapy | Elmer Silva | | 2019 | | | E, [address] | | | | | | [place] | | | | | | [address] | | | | | | | [...] [place] | | | | | | [id number] | | | | | | | [...] [place] | | | | | | [address] | | | | | | | [...] [place] | | | | | | [address] | | | | | | | [...] [place] | | | | | | [address] | | | | | | | | +--------+ + + + + documented as of this encounter Procedures + +--------+ + + + | Procedure Name | Priori | Date/Time | Associated Diagnosis | Comments | | | ty | | | | + +--------+ + + + | URINALYSIS WITH | Routin | 08/08/2019 | Primary malignant | Results for this | | MICROSCOPIC WITH | e | 3:08 PM | neoplasm of female | procedure are in the | | CULTURE IF INDICATED | | PDT | breast (HCC) | [...] + | PATHOLOGY - EXTERNAL | | 06/15/2019 | | Results for this | | SCAN | | 12:00 AM | | procedure are in the | | | | PDT | | results section. | + +--------+ + + + documented in this encounter Results Urinalysis with Microscopic with Culture if Indicated (08/08/2019 3:08 PM PDT) + + + + + + | Component | Value | Ref Range | Performed | Pathologist | | | | | At | Signature | + + + + + + | Color, | Yellow | Light Yellow, | [facility] | | | Urine | | Yellow, Straw | [facility] | | | | | | [facility] | | | | | | [facility] - | | | | | | LABORATORY | | + + + + + + | Clarity, | Clear | Clear | [facility] | | | Urine | | | [facility] | | | | | | [facility] | | | | | | [facility] - | | | | | | LABORATORY | | + + + + + + | pH, Urine | 5.0 | 5.0 - 8.0 | [facility] | | | | | | [facility] | | | | | | [facility] | | | | | | [facility] - | | | | | | LABORATORY | | + + + + + + | Specific | >1.060 (H) | 1.001 - 1.030 | [facility] | | | [place], | | | [facility] | | | Urine | | | MEDICAL | | | | | | CENTER - | | | | | | LABORATORY | | + + + + + + | Protein, | Negative | Negative | [facility] | | | Urine | | | [facility] | | | | | | [facility] | | | | | | [facility] - | | | | | | LABORATORY | | + + + + + + | Blood, | Small (A) | Negative | [facility] | | | Urine | | | [facility] | | | | | | [facility] | | | | | | [facility] - | | | | | | LABORATORY | | + + + + + + | Glucose, | Negative | Negative | [facility] | | | Urine | | | [facility] | | | | | | [facility] | | | | | | [facility] - | | | | | | LABORATORY | | + + + + + + | Ketones, | Negative | Negative | [facility] | | | Urine | | | [facility] | | | | | | [facility] | | | | | | [facility] - | | | | | | LABORATORY | | + + + + + + | Bilirubin, | Negative | Negative | [facility] | | | Urine | | | [facility] | | | | | | [facility] | | | | | | [facility] - | | | | | | LABORATORY | | + + + + + + | Nitrite, | Positive (A) | Negative | [facility] | | | Urine | | | [facility] | | | | | | [facility] | | | | | | [facility] - | | | | | | LABORATORY | | + + + + + + | Leukocyte | Small (A) | Negative | [facility] | | | Esterase, | | | [facility] | | | Urine | | | MEDICAL | | | | | | CENTER - | | | | | | LABORATORY | | + + + + + + | Urobilinoge | Negative | 0.2 mg/dL, 1.0 | [facility] | | | n, Urine | | mg/dL, Negative | [facility] | | | | | | [facility] | | | | | | CENTER - | | | | | | LABORATORY | | + + + + + + | White Blood | 5-10 (A) | 0 - 2 /HPF | [facility] | | | Cells, | | | [facility] | | | Urine | | | MEDICAL | | | | | | CENTER - | | | | | | LABORATORY | | + + + + + + | Red Blood | 5-10 (A) | 0 - 2 /HPF | [facility] | | | Cells, | | | [facility] | | | Urine | | | MEDICAL | | | | | | CENTER - | | | | | | LABORATORY | | + + + + + + | Squamous | 50-100 (A) | 0 - 2 /LPF | [facility] | | | Epithelial | | | [facility] | | | Cells, | | | MEDICAL | | | Urine | | | CENTER - | | | | | | LABORATORY | | + + + + + + | Bacteria, | 2+ (A) | Negative /HPF | [facility] | | | Urine | | | [facility] | | | | | | [facility]ICAL | | | | | | CENTER - | | | | | | LABORATORY | | + + + + + + | Urine | Urine Culture Not | | [facility] | | | Comment | Indicated | | [facility] | | | | | | [facility]ICAL | | | | | | CENTER - | | | | | | LABORATORY | | + + + + + + + + | Specimen | + + | Urine - Urine | | specimen obtained by | | clean catch | | procedure (specimen) | + + + + + + + | Performing | Address | City/State/Zipcode | Phone Number | | Organization | | | | + + + + + | [facility] | [address] | [place] | [phone] | | [facility] | | [address] | | | - LABORATORY | | | | + + + + + PATHOLOGY - EXTERNAL SCAN (07/06/2019 12:00 AM [...] + + + PATHOLOGY - EXTERNAL SCAN (06/15/2019 12:00 AM PDT) + + + | [...]
--- OUTSIDE RECORDS SUMMARY | ~2020-08-08 | XMS | Encounter Summary ---
Demographics + + + | Address | [address] | | | [place] [address] | + + + | Home Phone [...] Team Providers + +------+ + | Care Lamination Spinner Name | Role | Phone | + +------+ + | Zuleyka Martínez | PCP | | + +------+ + Encounter Details +--------+ + + + + | Date | Type | Department | Care Team | Description | +--------+ + + + + | 06/18/ | Orders Only | [facility] | AlbinaYeen | Secondary | | 2020 | | [facility] | MD Jared [address] | adenocarcinoma of | | | | ONCOLOGY CLINIC [address] | [place], [place] | brain (HCC) (Primary | | | | [address] [place] | [phone] | Dx) | | | | [place] [address] | | | | | | [phone] | | | +--------+ + + + [...] [place] | | | | | | [address] | | | | | | | | +--------+ + + + + | 08/12/ | Hospital | Infusion Therapy | Elmer Silva | | | 2019 | Encounter | | MD [address]azaro Dominique | | | | | | [place] | | | | | | [address] | | | | | | | | +--------+ + + + + | 08/12/ | Appointment | Oncology | Lionel Benson | | | 2019 | | | Ze [address]ger [address] | | | | | | [address] | | | | | | [place] [address] | | | | | | [phone] | | | | | | | | +--------+ + + + + | 08/19/ | Appointment | Oncology | Elmer Silva | | | 2019 | | | MD [address]azaro Domin[address] | | | | | | [place] | | | | | | [address] | | | | | | | | +--------+ + + + + | 08/19/ | Appointment | Infusion Therapy | Elmer Silva | | | 2019 | | | E, [address] | | | | | | [place] | | | | | | [address] | | | | | | | [...] [place] | | | | | | [address] | | | | | | | [...] [place] | | | | | | [address] | | | | | | | [...] [place] | | | | | | [address] | | | | | | | [...] [place] | | | | | | [address] | | | | | | | | +--------+ + + + + documented as of this encounter Visit Diagnoses + + | Diagnosis | + + | 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
--- OUTSIDE RECORDS SUMMARY | ~2020-08-08 | XMS | Encounter Summary ---
Demographics + + + | Address | [address] | | | [place] [address] | + + + | Home Phone [...] Team Providers + +------+ + | Care Book Critic Name | Role | Phone | + [...] 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, | [address] | | | | | adenocarcino | MD [address] | [place], | | | | | ma of brain | [address] | [place] | | | | | (HCC) | [place], | [address] | | | | | Procedures | [place] [address] | Phone: | | | | | MRI Brain w | Phone: | [phone] | | | | | wo Contrast | [phone] | Fax: | | | | | | Fax: | [phone] | | | | | | [phone] | | +--------+--------+ + + + + [...] Secondary | Susie Coleman, | [address] | | | | | adenocarcino | [address] | [place], | | | | | ma of brain | [address] | [place] | | | | | (HCC) | [place], | [address] | | | | | Procedures | [place] [address] | Phone: | | | | | MRI Brain w | Phone: | [phone] | | | | | wo Contrast | [phone] | Fax: | | | | | | Fax: | [phone] | | | | | | [phone] | | +--------+--------+ + + + + Encounter Details +--------+ + + + + | Date | Type | Department | Care Team | Description | +--------+ + + + + | 03/11/ | Hospital | [facility] | Susie Montemayor | 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, [address] | adenocarcinoma of | | | | [address] [place], | [place], [place] | brain (HCC) | | | | [place] [address] | [address] | | | | | [phone] | | | +--------+ + + + [...] [place] | | | | | | [address] | | | | | | | | +--------+ + + + + | 08/12/ | Hospital | Infusion Therapy | Elmer Silva | | | 2019 | Encounter | | E, [address] | | | | | | [place] | | | | | | [address] | | | | | | | | +--------+ + + + + | 08/12/ | Appointment | Oncology | Lionel Benson | | | 2019 | | | J, PharmD [address] | | | | | | [address] [place] | | | | | | [place] [address] | | | | | | [phone] | | | | | | | | +--------+ + + + + | 08/19/ | Appointment | Oncology | Elmer Silva | | 2019 | | | E, [address] | | | | | | [place], [place] | | | | | | [address] | | | | | | | | +--------+ + + + + | 08/19/ | Appointment | Infusion Therapy | Elmer Silva | | | 2019 | | | MD Lazaro Dominique [address] | | | | | | [place], [place] | | | | | | [address] | | | | | | | [...] [place] | | | | | | [address] | | | | | | | [...] [place] | | | | | | [address] | | | | | | | [...] [place] | | | | | | [address] | | | | | | | [...] [place] | | | | | | [address] | | | | | | | [...] PM HISTORY: | [facility] | | Brain/MANAGER HEART FAILURE neoplasm, staging COMPARISON: MRI 01/22/2020. CT | [...] CONTRAST dated | | 03/11/2020 3:45 PMHISTORY: Brain/MANAGER HEART FAILURE neoplasm, stagingCOMPARISON: MRI 01/22/2020. CT | | [...]
--- OUTSIDE RECORDS SUMMARY | ~2020-08-08 | XMS | Encounter Summary ---
Demographics + + + | Address | [address] | | | [place] [address] | + + + | Home Phone [...] Team Providers + +------+ + | Care Match Up Worker Name | Role | Phone | [...] + + | 02/11/ | Telephone | [facility] | Lemuel Da Silva DO | Consult (request | | 2019 | | NEUROSURGERY [address] | call back from | | | | [address] | [address] | [place]) | | | | [place], [place] | [place] [address] | | | | | [address] | [phone] | | | | | [phone] | | | +--------+ + + + [...] 02/12/2020 3:31 PM PDTDr. Albina, is calling [facility] [address] (request call back from Dr. Da Silva) and would like a call back. Additional Call Details: Requesting a call back from Dr. Da Silva. [phone] If this is a symptom based call, was patient offered triage? Not Applicable If this is a symptom based call and you were unable to immediately transfer the call to a soto [place]ison senior planning manager was caller made aware that if at [...] [place] | | | | | | [address] | | | | | | | | +--------+ + + + + | 08/12/ | Hospital | Infusion Therapy | Elmer Silva | | | 2019 | Encounter | | MD [address]aza[address] | | | | | | [place] | | | | | | [address] | | | | | | | | +--------+ + + + + | 08/12/ | Appointment | Oncology | Lionel Benson | | 2019 | | | Ze Unger [address] | | | | | | [address] | | | | | | [place] [address] | | | | | | [phone] | | | | | | | | +--------+ + + + + | 08/19/ | Appointment | Oncology | Elmer Silva | | | 2019 | | | E, MD [address] | | | | | | [place] | | | | | | [address] | | | | | | | | +--------+ + + + + | 08/19/ | Appointment | Infusion Therapy | Elmer Silva | | | 2019 | | | E, MD [address] | | | | | | [place] | | | | | | [address] | | | | | | | [...] [place] | | | | | | [address] | | | | | | | [...] [place] | | | | | | [address] | | | | | | | | +--------+ + + + + | 09/16/ | Appointment | Infusion Therapy | | | | 2019 | | | | | +--------+ + + + + | 09/23/ | Office | Oncology | Elmer Silva | | | 2019 | Visit | | E, MD [address] | | | | | | [place] | | | | | | [address] | | | | | | | [...]
--- OUTSIDE RECORDS SUMMARY | ~2020-08-08 | XMS | Encounter Summary ---
Demographics + + + | Address | [address] | | | [place] [address] | + + + | Home Phone [...] Team Providers + +------+ + | Care Boxing And Pressing Supervisor Name | Role | Phone | [...] + + + + | 09/14/ | [facility] | [facility] | Susie Montemayor | Primary malignant | | 2019 | Encounter | [facility] | MD Jared [address] | neoplasm of female | | | | ONCOLOGY CLINIC [address] | [place], [place] | breast (HCC) | | | | [address] [facility] | [address] | (Primary Dx) | | | | [place] [address] | | | | | | [phone] | | | +--------+ + + + [...] [place] | | | | | | [address] | | | | | | | | +--------+ + + + + | 08/12/ | Hospital | Infusion Therapy | Elmer Silva | | | 2019 | Encounter | | MD Lazaro Dominique | | | | | | [place] | | | | | | [address] | | | | | | | | +--------+ + + + + | 08/12/ | Appointment | Oncology | Lionel Benson | | | 2019 | | | Ze Unger [address] | | | | | | [address] [place] | | | | | | [place] [address] | | | | | | [phone] | | | | | | | | +--------+ + + + + | 08/19/ | Appointment | Oncology | Elmer Silva | | | 2019 | | | E, [address] | | | | | | [place] | | | | | | [address] | | | | | | | | +--------+ + + + + | 08/19/ | Appointment | Infusion Therapy | Elmer Silva | | | 2019 | | | E, [address] | | | | | | [address] [place] | | | | | | [address] | | | | | | | [...] [place] | | | | | | [address] | | | | | | | [...] [place] | | | | | | [address] | | | | | | | [...] [place] | | | | | | [address] | | | | | | | [...] [place] | | | | | | [address] | | | | | | | | +--------+ + + + + documented as of this encounter Visit Diagnoses + + | Diagnosis | + + | 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
--- OUTSIDE RECORDS SUMMARY | ~2020-08-08 | XMS | Encounter Summary ---
Demographics + + + | Address | [address] | | | [place] [address] | + + + | Home Phone [...] Team Providers + +------+ + | Care Staff Nuclear Weapons Officer Name | Role | Phone | [...] + + | 05/24/ | Telephone | [facility] | Serenity Dunn, | Other (Survivorship) | | 2017 | | [facility] | RN | | | | | ONCOLOGY CLINIC [address] | | | | | | [address] | | | | | | [place] [address] | | | | | | [phone] | | | +--------+ + + + [...] [place] | | | | | | [address] | | | | | | | | +--------+ + + + + | 08/12/ | Hospital | Infusion Therapy | Elmer Silva | | | 2019 | Encounter | | E, [address] | | | | | | ST [place] | | | | | | [address] | | | | | | | | +--------+ + + + + | 08/12/ | Appointment | Oncology | Lionel Benson | | | 2019 | | | J, PharmCorky [address] | | | | | | [address] | | | | | | [place] [address] | | | | | | [phone] | | | | | | | | +--------+ + + + + | 08/19/ | Appointment | Oncology | Elmer Silva | | | 2019 | | | E, [address] | | | | | | [place] | | | | | | [address] | | | | | | | | +--------+ + + + + | 08/19/ | Appointment | Infusion Therapy | Elmer Silva | | | 2019 | | | E, [address] | | | | | | ST [place], [place] | | | | | | [address] | | | | | | | [...] | | | | | ST [place] | | | | | | [address] | | | | | | | [...] [place] | | | | | | [address] | | | | | | | [...] [place] | | | | | | [address] | | | | | | | [...]
--- OUTSIDE RECORDS SUMMARY | ~2020-08-08 | XMS | Encounter Summary ---
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 Hem-Onc Progress Note [facility] Pt. Name/Age/: Olena Rider 56 y.o. 1960 Med. 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 Based on it's severe the have recommended that keshawn ent switch craig analogs using instead carboplatin. This agent associated [...] Electronically signed by: Milton Salazar, 03/01/2017 9:40 [facility] TIME SPENT 25 MIN. > 50% AT BEDSIDE, WITH FAMILY/PATIENT IN CARE AND CORPORATE REAL ESTATE MANAGER ON UNIT AND CO ORDINATION OF CARE Portions of this chart may have been created with [employer] voice recognition software. Occasi onal wrong-word or sound-alike substitutions may have occurred due to the inherent cervantes itations of voice recognition software. Please read the chart carefully and recognize, using context, where these substitutions have occurred. Rodriguez Person RN - 03/01/2017 9:15 AM PDTREVIEW D-Sight Constitutional: COMPLAINS OF FATIGUE- SHE HAD A [...] [place] | | | | | | [id number] | | | | | | | | +--------+ + + + + | 08/12/ | Hospital | Infusion Therapy | Elmer Silva | | 2019 | Encounter | MD Lazaro De La O | | | | | | [place] | | | | | | [address] | | | | | | | | +--------+ + + + + | 08/12/ | Appointment | Oncology | Lionel Benson | | | 2019 | | | J, PharmD [address] | | | | | | [address] [place] | | | | | | [place] [address] | | | | | | [phone] | | | | | | | | +--------+ + + + + | 08/19/ | Appointment | Oncology | Elmer Silva | | | 2019 | | | E, [address] | | | | | | [place] | | | | | | [address] | | | | | | | | +--------+ + + + + | 08/19/ | Appointment | Infusion Therapy | Elmer Silva | | | 2019 | | | E, [address] | | | | | | [place] | | | | | | [address] | | | | | | | [...] [place] | | | | | | [address] | | | | | | | [...] [place] | | | | | | [address] | | | | | | | [...] [place] | | | | | | [address] | | | | | | | [...] [place] | | | | | | [address] | | | | | | | [...] (L) | 7 - 18 mg/dL | [facility] | | | | | | [facility] | | | | | | MEDICAL | | | | | | CENTER - | | | | | | LABORATORY | | + + + + + + | Creatinine | 1.17 | 0.60 - 1.30 | [place] | | | | | mg/dL | [facility] | | | | | | MEDICAL | | | | | | CENTER - | | | | | | LABORATORY | | + + + + + + | eGFR, | 48 (L)Comment: | >=60 | [place] | | | non- | GLOMERULAR FILTRATION | mL/min/1.73m2 | [facility] | | | [place] | RATE,ESTIMATED | | MEDICAL | | | | mL/min/1.90a0Ekqq than | | CENTER - | | [...] [address] | [place] | [phone] | | [facility] | | [address] | | | - LABORATORY | | [...] [place]. | [address] | [place] | [phone] | | [facility] | | [address] | | | - LABORATORY | | [...]
--- OUTSIDE RECORDS SUMMARY | ~2020-08-08 | XMS | Clinical Summary ---
Demographics + + + | Address | [address] | | | [place] [address] | + + + | Home Phone [...] Team Providers + +------+ + | Care Peripatologist Name | Role | Phone | + [...] + + +---------+------+------+-------+ | dexamethasone | Take 1 tablet by | 60 | 0 | 07/02 | | Activ | | (DECADRON) 4 mg | mouth 4 times daily | tablet | | 8/20 | | e | | tablet | (with meals and | | | 20 | | | | | nightly). | | | | | | + + + +---------+------+------+-------+ +---+ + | | Additional | | | InformationPatient | | | taking differently: | | | 4 mg Oral DAILY WITH | | | BREAKFAST, Reported | | | on 08/01/2020 10:06 | | | AM | +---+ + + + +--------+---+------+------+-------+ | memantine | Take 1 tablet by | 120 | 5 | 07/03 | / | Activ | | (NAMENDA) 5 mg | mouth Daily for 7 | tablet | | 2/20 | 0/20 | e | | tablet | days, THEN 2 tablets | | | 20 | 21 | | | | Daily for 7 days, | | | | | | | | THEN 3 tablets Daily | | | | | | | | for 7 days, THEN 4 | | | | | | | | tablets Daily for 99 | | | | | | | | days. | | | | | | + + +--------+---+------+------+-------+ +---+ + | | Additional | | | InformationPatient | | | not taking. Reported | | | on 07/25/2020 10:06 | | | AM | +---+ + + + +---------+---+------+------+-------+ | gabapentin | Take 2 capsules by | 180 | 1 | 09/2 | | Activ | | (NEURONTIN) 300 mg | mouth 3 times daily. | capsule | | 8/20 | | e | | capsuleIndications: | | | | 20 | | | | Secondary | | | | | | | | adenocarcinoma of | | | | | | | | brain (HCC) | | | | | | | + + +---------+---+------+------+-------+ | oxyCODONE | Take 1-2 tabs every | 90 | 0 | 09/2 | | Activ | | (ROXICODONE) 5 mg | 6 hrs as needed For | tablet | | 8/20 | | e | | tablet | pain. | | | 20 | | | + + +---------+---+------+------+-------+ | fluconazole | Please take 2 pills | 15 | 0 | 10/0 | | Activ | | (DIFLUCAN) 100 mg | by mouth on day 1, | tablet | | 8/20 | | e | | tabletIndications: | then 1 pill daily by | | | 20 | | | | Oral thrush | mouth for days | | | | | | | | 2-14.. | | | | | | + + +---------+---+------+------+-------+ | exemestane | Take 1 tablet by | 90 | 3 | 02/0 | 07/03 | Disco | | (AROMASIN) 25 MG | mouth Daily. | tablet | | 5/20 | 4/20 | ntinu | | tablet | | | | 20 | 20 | ed | | | | | | | | (Ther | | | | | | | | apy | | | | | | | | compl | | | | | | | | eted) | + + +---------+---+------+------+-------+ | dexamethasone | Take 2 tablets (4 [...] | | | | | + + +---------+---+------+------+-------+ | oxyCODONE | Take 5 mg by mouth | | 0 | 09/0 | 09/1 | Disco | | (ROXICODONE) 5 mg | as needed For pain. | | | 9/ | 5/20 | ntinu | | tablet [...] | | | msg)) | + + +---------+---+------+------+-------+ | oxyCODONE | Take 1 tablet by | 90 | 0 | / | 09/2 | Disco | | (ROXICODONE) 5 mg | mouth every 6 hours | tablet | | 5/20 | 8/20 | ntinu | | tablet | as needed For pain. | | | 20 | 20 | [...] | | | msg)) | + + +---------+---+------+------+-------+ | gabapentin | 1 tab at bed time | 90 | 2 | 07/02 | 07/03 | Disco | | (NEURONTIN) 300 mg | for 1 day, then 1 | capsule | | /20 | 06/20 | ntinu | | capsule | tab twice a day for | | | 20 | 20 | ed | | | 1 day then 1 tab | | | | | | | | three times a day.. | | | | | | + + +---------+---+------+------+-------+ Active Problems + + + | Problem [...] + + + + | Overview: Overview: erick 11/06/05 oxycodone/apap 5/325 | | #30/28d from Vivienne Kilpatrick [facility] internal audit | | processes necessitated this change (from V58.83D to V58.83M) on | | 11-28-2009 and with the approval of Dr. Kyle Lopez, the regional | | physician railroad yard worker.02/09/10 Percocet 5/325 #d r/t leg pain | | TStewart | + + + + + | Posttraumatic stress disorder | 11/27/2005 | + + + + + | Overview: Overview: | | leta, urban 47, bdc 12 | + + + + [...] + + | 08/08/ | Telephone | Radiation Oncology | Susie Montemayor | Coordination Of Care | | 2019 | | | MD Jared | | +--------+ + + + + | 08/02/ | Orders Only | Oncology | Elmer Silva | | | 2019 | | | MD Trip | | +--------+ + + + + | 08/02/ | Documentati | Radiation Oncology | Susie Montemayor | | | 2019 | on | | MD Jared | | +--------+ + + + + | 08/01/ | Hospital | Radiation Oncology | Susie Montemayor | Secondary | | 2019 | Encounter | | MD Jared | adenocarcinoma of | | | | | | brain (HCC) (Primary | | | | | | Dx) | +--------+ + + + + | 07/29/ | Orders Only | Radiation Oncology | Susie Montemayor | | | 2019 | | | MD Jared | | +--------+ + + + + | 07/29/ | Orders Only | Infusion Therapy | Natividad Mendoza, | | | 2019 | | | RN | | +--------+ + + + + | 07/29/ | Telephone | Radiation Oncology | Susie Montemayor | Medication Refill | | 2019 | | | MD Jared | | +--------+ + + + + | 07/29/ | Refill | Oncology | Susie Montemayor | Medication Refill | | 2019 | | | MD Jared | | +--------+ + + + + | 07/25/ | Hospital | Radiation Oncology | Susie Montemayor | Secondary | | 2019 | Encounter | | MD Jared | adenocarcinoma of | | | | | | brain (HCC) (Primary | | | | | | Dx) | +--------+ + + + + | 07/25/ | Orders Only | Oncology | Elmer Silva | | | 2019 | | | MD Trip | | +--------+ + + + + | 07/23/ | Orders Only | Radiation Oncology | Susie Montemayor | | | 2019 | | | MD Jared | | +--------+ + + + + | 07/23/ | Documentati | Oncology | Rosalio Lindsey, | Psychosocial Support | | 2019 | on | | MECHANICAL RELIABILITY ENGINEER | | +--------+ + + + + | 07/22/ | Hospital | Radiology | Susie Montemayor | Canceled (OTHER) | | 2020 | Encounter | | M, MD | | +--------+ + + + + | 07/22/ | Telephone | Radiation Oncology | Susie Montemayor | Patient Concerns | | 2020 | | | MD Jared | | +--------+ + + + + | 07/22/ | Telephone | Oncology | Susie Montemayor | Patient Concerns | | 2020 | | | MD Jared | | +--------+ + + + + | 07/22/ | Telephone | Infusion Therapy | Natividad Mendoza, | NORRIST Note | | 2019 | | | RN | | +--------+ + + + + | 07/19/ | Hospital | Radiology | Susie Montemayor | Radiculopathy | | 2019 | Encounter | | MD Jared | affecting upper | | | | | | extremity | +--------+ + + + + | 07/19/ | Hospital | Oncology | Elmer Silva | Non-small cell | | 2019 | Encounter | | MD Trip | cancer of right lung | | | | | | (HCC) (Primary Dx) | +--------+ + + + + | 07/19/ | Hospital | Radiology | Susie Montemayor | Secondary | | 2019 | Encounter | | MD Jared | adenocarcinoma of | | | | | | brain (HCC) | +--------+ + + + + | 07/19/ | Telephone | Radiation Oncology | Susie Montemayor | Results, Imaging | | 2019 | | | MD Jared | | +--------+ + + + + | 09/17/ | Hospital | Radiology | Susie Montemayor | Facial weakness | | 2019 | Encounter | | MD Jared | | +--------+ + + + + | 07/18/ | Telephone | Radiation Oncology | Susie Montemayor | Results, Imaging | | 2019 | | | MD Jared | | +--------+ + + + + | 07/18/ | Orders Only | Radiation Oncology | Susie Montemayor | Facial weakness | | 2019 | | | MD Jared | (Primary Dx) | +--------+ + + + + | 07/17/ | Imaging | Radiology | Provider, | | | 2019 | Exam | | MD Wilder | | +--------+ + + + + | 07/17/ | Orders Only | Radiation Oncology | Susie Montemayor | Facial weakness | | 2019 | | | MD Jared | (Primary Dx) | +--------+ + + + + | 07/17/ | Telephone | Oncology | Susie Montemayor | Patient Concerns | | 2019 | | | MD Jared | | +--------+ + + + + [...] + + | 07/07/ | Hospital | Radiation Oncology | Susie Montemayor | | | 2019 | Encounter | | MD Jared | | +--------+ + + + + [...] | Susie Montemayor | Encounter for | 2019 | Encounter | | MD [...] [place] | | | | | | [address] | | | | | | | | +--------+ + + + + | 08/12/ | Hospital | Infusion Therapy | Elmer Silva | | | 2019 | Encounter | | MD Lazaro Dominique | | | | | | [place] | | | | | | [address] | | | | | | | | +--------+ + + + + | 08/12/ | Appointment | Oncology | Lionel Benson | | 2019 | | | Ze [address] | | | | | | [address] | | | | | | [place] [address] | | | | | | [phone] | | | | | | | | +--------+ + + + + | 08/19/ | Appointment | Oncology | Elmer Silva | | | 2019 | | | E, [address] | | | | | | [place] | | | | | | [address] | | | | | | | | +--------+ + + + + | 08/19/ | Appointment | Infusion Therapy | Elmer Silva | | | 2019 | | | E, MD [address] | | | | | | [place] | | | | | | [address] | | | | | | | [...] [place] | | | | | | [address] | | | | | | | [...] [place] | | | | | | [address] | | | | | | | [...] [place] | | | | | | [address] | | | | | | | [...] [place] | | | | | | [address] | | | | | | | [...] | | /NA | | DO at [facility] | | | | | | /NA | | [facility] | | | | | | | + +-------+------+ +--------+--------+--------+ | Screw S/Tap 1.6x4.0 - | Screw | | [employer] - | | | [id number] | | SnaImplanted: Qty: 3 on | | | MEDT | | | 0 /NA | | 02/27/2020 by Lemuel Da Silva, | | | | | | /NA | | DO at [facility] | | | | | | | | [facility] | | | | | | | + +-------+------+ +--------+--------+--------+ Procedures + +--------+ + + + | Procedure Name | Priori | Date/Time | Associated Diagnosis | Comments | | | ty | | | | + +--------+ + + + | MRI CERVICAL SPINE W | [place] | 07/19/2020 | Radiculopathy | Results for this | | WO CONTRAST | | 12:46 PM | affecting upper | procedure are in the | | | | PDT | extremity | results section. | + +--------+ + [...] | | | PDT | ([facility]) | results section. | + +--------+ + + + from Last 3 Months Results MRI Cervical Spine w wo Contrast [...] Procedure Note | + + | Christopher, [id number] - 07/19/2020 5:43 PM PDT MRI CERVICAL [...] significant portion of the right | | C6-K0rtzvyr foramen measuring approximately 2.2 x 0.7 cm. A portion of thismay be | | artifactual. Please correlate to see if this fits with a F3mzfxq distribution | | radiculopathy.2. Posterior disc protrusion [...] Performing | Address | City[facility] | Phone Number | | Organization | | | | + +---------+ + + | [facility] | | | | + +---------+ + + CT Treatment Plan Complex (07/19/2020 11:19 AM [...] + + MRI Brain w wo Contrast (07/18/2020 12:43 PM PDT)Only the most recent of 2 results within t he time period is included. + + | Specimen | + + [...] Procedure Note | + + | Christopher, [id number] - 07/18/2020 2:40 PM PDT MRI BRAIN [...] | | + +---------+ + + CT Head wo Contrast (07/17/2020 2:57 PM [...] | | | + +---------+ + + IMAGING REPORT - EXTERNAL SCAN (07/17/2020 12:00 AM PDT) + + + | Narrative | Performed At | + + + | Ordered by an | | | unspecified provider. | | + + + LABS - EXTERNAL SCAN (07/17/2020 12:00 AM PDT) + + + | Narrative | Performed At | + + + | Ordered by an | | | unspecified provider. | | + + + ADAM Tomosynthesis Screening Bilateral (06/17/2020 1:42 PM [...] Procedure Note | + + | Christopher, [id number] - 05/28/2020 1:20 PM PDT TECHNIQUE: After [...] abnormality. Stable | | sclerotic lesion at E2ohkhwbkrt body and probable bone island at the [...] | [employer] | FIRST | [id number] | | [phone] | | PPO | [...] | [employer] | [employer] | [id number] | | [phone] | | Medica | [...] ST | | | al/Fam | | 1959 | [phone] | [place], [place] | | | ze | | | 9 (Home) | [address] | + +--------+ +--------+ + + | Olena Rider | Person | Self | [birth year] | [address] | | | al/Fam | | 1959 | [phone] | [place], [place] | | | ze | | | 9 (Home) | [address] | + +--------+ +--------+ + + Advance Directives + + + + + | Type | Date Recorded | Patient | Explanation | | | | Manager Organizational | | + + + + + | Power of | | | | | Airport Traffic Controller | | | | + + + [...]
--- OUTSIDE RECORDS SUMMARY | ~2020-08-08 | XMS | Encounter Summary ---
Demographics + + + | Address | [address] | | | [place] [address] | + + + | Home Phone [...] Team Providers + +------+ + | Care Ingot Stripper Name | Role | Phone | + [...] | | | [address] [place] | [place] [address] | | | | | [place] [address] | | | | | | [phone] | | | +--------+ + + + [...] [place] | | | | | | [address] | | | | | | | | +--------+ + + + + | 08/12/ | Hospital | Infusion Therapy | Elmer Silva | | | 2019 | Encounter | | MD Lazaro Dominique | | | | | | [place] | | | | | | [address] | | | | | | | | +--------+ + + + + | 08/12/ | Appointment | Oncology | Lionel Benson | | | 2019 | | | Ze Unger [address] | | | | | | [address] [place] | | | | | | [place] [address] | | | | | | [phone] | | | | | | | | +--------+ + + + + | 08/19/ | Appointment | Oncology | Elmer Silva | | | 2019 | | | Trip, [address] | | | | | | [address] [place] | | | | | | [address] | | | | | | | | +--------+ + + + + | 08/19/ | Appointment | Infusion Therapy | Elmer Silva | | | 2019 | | | E, [address] | | | | | | [address] [place], [place] | | | | | | [address] | | | | | | | [...] [place] | | | | | | [address] | | | | | | | [...] [place] | | | | | | [address] | | | | | | | [...] [place] | | | | | | [address] | | | | | | | [...] [place] | | | | | | [address] | | | | | | | [...]
--- OUTSIDE RECORDS SUMMARY | ~2020-08-08 | XMS | Encounter Summary ---
Demographics + + + | Address | [address] | | | [place] [address] | + + + | Home Phone [...] Team Providers + +------+ + | Care Appliance Painter And Refinisher Name | Role | Phone | + [...] | | | [address] [place] | [place] [address] | | | | | [place] [address] | | | | | | [phone] | | | +--------+ + + + [...] [place] | | | | | | [address] | | | | | | | | +--------+ + + + + | 08/12/ | Hospital | Infusion Therapy | Elmer Silva | | | 2019 | Encounter | | MD Lazaro Dominique [address] | | | | | | [place] | | | | | | [address] | | | | | | | | +--------+ + + + + | 08/12/ | Appointment | Oncology | Lionel Benson | | 2019 | | | Ze Unegr [address] | | | | | | [address] | | | | | | [place] [address] | | | | | | [phone] | | | | | | | | +--------+ + + + + | 08/19/ | Appointment | Oncology | Elmer Silva | | | 2019 | | | E, MD Lazaro LOZA | | | | | | [place] | | | | | | [address] | | | | | | | | +--------+ + + + + | 08/19/ | Appointment | Infusion Therapy | Elmer Silva | | | 2019 | | | E, MD Lazaro LOZA | | | | | | [place] | | | | | | [address] | | | | | | | [...] [place] | | | | | | [address] | | | | | | | [...] [place] | | | | | | [address] | | | | | | | [...] [place] | | | | | | [address] | | | | | | | [...] | | | [facility] [place] | | | | | | [id number] | | | | | | | [...]
--- OUTSIDE RECORDS SUMMARY | ~2020-08-08 | XMS | Encounter Summary ---
Demographics + + + | Address | [address] | | | [place] [address] | + + + | Home Phone [...] + + + | Author | [facility] | | | and [place] | + + + | Organization | [facility] | | [...] Team Providers + +------+ + | Care Rn Gyn Name | Role | Phone | + [...] | | Non-small | Salazar, | [place] | | | | | cell cancer | Milton | [place], | | | | | of right | MD Bebeto | [place] [address] | | | | | lung (HCC) | [address] | Phone: | | | | | Procedures | [address] [place] | [phone] | | | | | CT Chest w | [place] | Fax: | | | | | Contrast | [address] | [phone] | | | | | | Phone: | | | | | | | [phone] | | | | | | | Fax: | | | | | | | [phone] | | +--------+--------+ + + + + [...] | 03/11/ | Hospital | [facility] | Milton Salazar | Non-small cell | | 2018 | Encounter | MED CTR CT [address] | MD Bebeto [address] | cancer of right lung | | | | [place], | [address] [place] | ([facility]) | | | | [place] [address] | [place] [address] | | | | | [phone] | [phone] | | | | | | | [...] [place] | | | | | | [place] | | | | | | [address] | | | | | | | | +--------+ + + + + | 08/12/ | Hospital | Infusion Therapy | Elmer Silva | | | 2019 | Encounter | | E, [address] | | | | | | [place] | | | | | | [address] | | | | | | | | +--------+ + + + + | 08/12/ | Appointment | Oncology | Lionel Benson | | | 2019 | | | J, [address] | | | | | | [address] [place] | | | | | | [place] [address] | | | | | | [phone] | | | | | | | | +--------+ + + + + | 08/19/ | Appointment | Oncology | Elmer Silva | | | 2019 | | | E, [address] | | | | | | [address] [place], [place] | | | | | | [address] | | | | | | | | +--------+ + + + + | 08/19/ | Appointment | Infusion Therapy | Elmer Silva | | | 2019 | | | MD Laz[address] | | | | | | [address] [place] | | | | | | [address] | | | | | | | [...] [place] | | | | | | [address] | | | | | | | [...] [place] | | | | | | [address] | | | | | | | [...] [place] | | | | | | [address] | | | | | | | [...] [place] | | | | | | [address] | | | | | | | [...]
--- OUTSIDE RECORDS SUMMARY | ~2020-08-08 | XMS | Encounter Summary ---
Demographics + + + | Address | [address] | | | [place] [address] | + + + | Home Phone [...] Author | [facility] | | | and [place] | + [...] Team Providers + +------+ + | Care Well Logging Captain Name | Role | Phone | + [...] | | | [address] [place] | [place] [address] | | | | | [place] [address] | | | | | | [phone] | | | +--------+ + + + [...] [place] | | | | | | [address] | | | | | | | | +--------+ + + + + | 08/12/ | Hospital | Infusion Therapy | Elmer Silva | | | 2019 | Encounter | | MD Lazaro Dominique | | | | | | [place] | | | | | | [address] | | | | | | | | +--------+ + + + + | 08/12/ | Appointment | Oncology | Lionel Benson | | | 2019 | | | Ze Unger [address] | | | | | | [address] [place] | | | | | | [place] [address] | | | | | | [phone] | | | | | | | | +--------+ + + + + | 08/19/ | Appointment | Oncology | Elmer Silva | | | 2019 | | | Trip, [address] | | | | | | ST [place] | | | | | | [address] | | | | | | | | +--------+ + + + + | 08/19/ | Appointment | Infusion Therapy | Elmer Silva | | | 2019 | | | E, [address] | | | | | | [address] [place], [place] | | | | | | [address] | | | | | | | [...] [place] | | | | | | [address] | | | | | | | [...] [place] | | | | | | [address] | | | | | | | [...] [place] | | | | | | [address] | | | | | | | [...] [place] | | | | | | [address] | | | | | | | [...]
--- OUTSIDE RECORDS SUMMARY | ~2020-08-08 | XMS | Encounter Summary ---
Demographics + + + | Address | [address] | | | [place] [address] | + + + | Home Phone [...] Providers + +------+ + | Care Medical Claims Analyst Name | Role | Phone | [...] W | | | | | | [place], | | | | | | [place] [address] | | | | | | [phone] | | | +--------+ + + + [...] Mccurdy OT - 09/11/2019 4:25 PM [facility] [address] [address] Oncology Rehab Screening Date: 09/11/2019 Patient Information [...] Patient is s/p R breast surgery in [place] and has now [facility] radiation treatment. [...] [place] | | | | | | [address] | | | | | | | | +--------+ + + + + | 08/12/ | Hospital | Infusion Therapy | Elmer Silva | | | 2019 | Encounter | | MD Lazaro Dominique [address] | | | | | | ST [place], [place] | | | | | | [address] | | | | | | | | +--------+ + + + + | 08/12/ | Appointment | Oncology | Lionel Benson | | | 2019 | | | Cornel, PharmD [address] | | | | | | [address] [place] | | | | | | [place] [address] | | | | | | [phone] | | | | | | | | +--------+ + + + + | 08/19/ | Appointment | Oncology | Elmer Silva | | | 2019 | | | MD Trip [address] | | | | | | [address] [place], [place] | | | | | | [address] | | | | | | | | +--------+ + + + + | 08/19/ | Appointment | Infusion Therapy | Elmer Silva | | | 2019 | | | MD Trip [address] | | | | | | [place] | | | | | | [address] | | | | | | | [...] [place] | | | | | | [address] | | | | | | | [...] [place] | | | | | | [address] | | | | | | | | +--------+ + + + + | 09/16/ | Appointment | Infusion Therapy | | | | 2019 | | | | | +--------+ + + + + | 09/23/ | Office | Oncology | Elmer Silva | | 2019 | Visit | | MD Lazaro Dominique | | | | | | [place] | | | | | | [address] | | | | | | | [...] [place] | | | | | | [address] | | | | | | | | +--------+ + + + + documented as of this encounter Visit Diagnoses Not on filedocumented in this encounter"
--- OUTSIDE RECORDS SUMMARY | ~2020-08-08 | XMS | Encounter Summary ---
Demographics + + + | Address | [address] | | | [place] [address] | + + + | Home Phone | | + + + | Preferred Language | Unknown | + + + | Marital Status | Single | + + + | Evangelical Affiliation | Unknown | + + + [...] Team Providers + +------+ + | Care Blogs Manager Name | Role | Phone | + +------+ + | Zuleyka Martínez | PCP | | + +------+ + Reason for Visit + +--------+ + | Reason | Onset | Comments | | | Date | | + +--------+ + | Scheduling Issues | 08/04/ | | | | 2019 | | + +--------+ + Encounter Details +--------+ + + + + | Date | Type | Department | Care Team | Description | +--------+ + + + + | 08/04/ | Telephone | [facility] | Bernice Novoa | Scheduling Issues | | 2019 | | MED CTR MEDICAL | Cornel, RN | | | | | ONCOLOGY CLINIC [address] | | | | | | [address] | | | | | | [place] [address] | | | | | | [phone] | | | +--------+ + + + [...] Telephone Encounter - Bernice Novoa RN - 08/04/2019 9:11 AM PDTTelephone call to Carmen ellison and introduced my role of support and education and that I wanted to help schedule he r upcoming appointments. I provided my contact information. I reviewed our MBC process. S he is available on 08/08/[address] Salazar at 2pm and Dr. Hassan at 4 pm. She understands that she'll remain under Dr. Olivarez's care for her treatment and affirms t hat she'd like to meet with Dr Hassan to keep her treatment moving forward. She's sche duled for a f/u CT at 11am Wednesday08/08/19, will get lunch then check into the cancer center . We discussed that I'll meet with her as soon as she's completed her registration and I've returned from the breast conference, that she may also meet with the genetics coordinator micah javed the MD appointments. She affirms the has a personal history of thyroid and lung canc er; Her mother was diagnosed with breast cancer when she was 53yo and her younger sister wh o is 54yo was also diagnosed this year. A paternal aunt had breast cancer twice.Electronical ly signed by Bernice Novoa RN at 08/04/2019 9:23 AM PDTdocumented in this encounter Plan of [...] [place] | | | | | | [address] | | | | | | | | +--------+ + + + + | 08/12/ | Hospital | Infusion Therapy | Elmer Silva | | | 2019 | Encounter | | E, [address] | | | | | | [place] | | | | | | [address] | | | | | | | | +--------+ + + + + | 08/12/ | Appointment | Oncology | Lionel Benson | | | 2019 | | | Ze Unger [address] | | | | | | [address] | | | | | | [place] [address] | | | | | | [phone] | | | | | | | | +--------+ + + + + | 08/19/ | Appointment | Oncology | Elmer Silva | | | 2019 | | | E, [address] | | | | | | [address] [place] | | | | | | [address] | | | | | | | | +--------+ + + + + | 08/19/ | Appointment | Infusion Therapy | Elmer Silva | | | 2019 | | | E, [address] | | | | | | [place] | | | | | | [address] | | | | | | | [...] [place] | | | | | | [address] | | | | | | | [...] [place] | | | | | | [address] | | | | | | | | +--------+ + + + + | 09/16/ | Appointment | Infusion Therapy | | | | 2019 | | | | | +--------+ + + + + | 09/23/ | Office | Oncology | Elmer Silva | | | 2019 | Visit | | MD Lazaro Dominique [address] | | | | | | [place] | | | | | | [address] | | | | | | | [...] [place] | | | | | | [address] | | | | | | | | +--------+ + + + + documented as of this encounter Visit Diagnoses Not on filedocumented in this encounter"
--- OUTSIDE RECORDS SUMMARY | ~2020-08-08 | XMS | Encounter Summary ---
Demographics + + + | Address | [address] | | | [place] [address] | + + + | Home Phone [...] Team Providers + +------+ + | Care Forger Helper Name | Role | Phone | [...] Facial | Susie M, | [address] | | | | | weakness | MD [address] | [place], | | | | | Procedures | [address] | [place] | | | | | MRI Brain w | [place], | [address] | | | | | wo Contrast | [place] [address] | Phone: | | | | | 3D 07/17 > | Phone: | [phone] | | | | | PENDING | [phone] | Fax: | | | | | [place] | Fax: | [phone] | | | | | | [phone] | | +--------+--------+ + + + + Encounter Details +--------+ + + + + | Date | Type | Department | Care Team | Description | +--------+ + + + + | 07/17/ | Orders Only | [facility] | Susie Montemayor | Facial weakness | | 2020 | | MED CTR RADIATION | MD Jared [address] | (Primary Dx) | | | | ONCOLOGY CLINIC [address] [place], [place] | | | | | [address] [place] | [address] | | | | | [place] [address] | | | | | | [phone] | | | +--------+ + + + [...] encounter Progress Notes Susie Montemayor MD - 07/17/2020 9:54 AM PALLAVIOlena Rider was seen in clinic yeste rday 07/16/2020, at which time we primarily focused on new right arm radicular symptoms and r equested an urgent MRI of the cervical spine. Pain management with oxycodone and gabapentin also initiated. She subsequently presented to the [facility] emergency department sadiabernard barrera with a new right facial palsy, no other symptoms reported. A noncontrast head CT was performed and did not demonstrate any acute abnormalities. MRI with and without contrast r ecommended and was not performed and she was discharged home. I recommend she undergoes an MRI with and without contrast and is possible to evaluate for potential CVA. Recent MRI of the brain did not demonstrate any tumor related causes for this presentation in the [facility]. Be ll's palsy also remains in the differential. documented in this encounter Plan of Treatment +--------+ + + + + | Date | Type | Specialty | Care Team | Description | +--------+ + + + + | 08/12/ | Appointment | Oncology | Elmer Silva | | 2019 | | | MD [address] Dominique [address] | | | | | | [place], [place] | | | | | | [address] | | | | | | | | +--------+ + + + + | 08/12/ | Hospital | Infusion Therapy | Elmer Silva | | | 2019 | Encounter | | E, [address] | | | | | | [place] | | | | | | [address] | | | | | | | | +--------+ + + + + | 08/12/ | Appointment | Oncology | Lionel Benson | | | 2019 | | | J PharmCorky [address] | | | | | | [address] [place] | | | | | | [place] [address] | | | | | | [phone] | | | | | | | | +--------+ + + + + | 08/19/ | Appointment | Oncology | Elmer Silva | | | 2019 | | | E, [address] | | | | | | [place] | | | | | | [address] | | | | | | | | +--------+ + + + + | 08/19/ | Appointment | Infusion Therapy | Elmer Silva | | | 2019 | | | E, [address] | | | | | | ST [place] | | | | | | [address] | | | | | | | [...] [place] | | | | | | [address] | | | | | | | [...] [place] | | | | | | [address] | | | | | | | [...] [place] | | | | | | [address] | | | | | | | [...] [place] | | | | | | [address] | | | | | | | | +--------+ + + + + + +---------+--------+ + + | Name | Type | Priori | Associated Diagnoses | Order Schedule | | | | ty | | | + +---------+--------+ + + | MRI Brain w wo | Imaging | Today | Facial weakness | Expected: | | Contrast 3D | | | | 07/17/2020, Expires: | | | | | | 07/17/2021 | + +---------+--------+ + + documented as of this encounter Visit Diagnoses + + | Diagnosis | + + | Facial weakness - Primary | + + documented in this encounter"
--- OUTSIDE RECORDS SUMMARY | ~2020-08-08 | XMS | Encounter Summary ---
Demographics + + + | Address | [address] | | | [place] [address] | + + + | Home Phone [...] Team Providers + +------+ + | Care Disaster Response Director Name | Role | Phone | [...] + + + + + + | Authorized | Specialty | Nutrition | Diagnoses | [place], | [facility] | | | Services | | Non-small | Elmer Dominique, | Nutrition | | | Required | | cell cancer | MD [address] | Services [address] | | | | | of right | [address] | [place] | | | | | lung (HCC) | [place], | [place], | | | | | | [place] [address] | [place] [address] | | | | | | Phone: | Phone: | | | | | | [phone] | [phone] | | | | | | Fax: | Fax: | | | | | | [phone] | [phone] | + + + + + + + Reason for Visit + +--------+ + | Reason | Onset | Comments | | | Date | | + +--------+ + | IDT Note | 07/22/ | | | | 2019 | | + +--------+ + Encounter Details +--------+ + + + + | Date | Type | Department | Care Team | Description | +--------+ + + + + | 07/22/ | Telephone | [facility] | Natividad Mendoza, | IDT Note | | 2019 | | MED CTR CHEMO | RN | | | | | INFUSION [address] | | | | | | [place], | | | | | | [place] [address] | | | | | | [phone] | | | +--------+ + + + [...] this encounter Miscellaneous Notes Telephone Encounter - Natividad Mendoza RN - 07/22/2020 7:35 AM PDT [facility] Interdisciplinary Team Navigational Checklist ? Top Priority Discipline EPIC Order Entered Consult Scheduled Consult Complete Comments: x *Medical Oncology Dr. Silva x *Radiation Oncology Dr. Montemayor x *Patient Navigation x *Nurse Navigator x *Social Service Survivorship Nurse Breast Health Genetics Surgical Input x *Nursing assessment Taxol, Carbo, Pemetrexed x *Pharmacy assessment x Nutrition 07/22/20--JR x Rehab: PT OT Speech & Language Palliative Care Clinical Trials Involvement Multiple Knife Edge Trimmer Operator Visit Financial Assistance Interdisciplinary Consults Completed Date: documented in this encounter Plan of Treatment +--------+ + + + + | Date | Type | Specialty | Care Team | Description | +--------+ + + + + | 08/12/ | Appointment | Oncology | Elemr Silva | | 2019 | | | MD Lazaro Dominique | | | | | | [facility] [place] [facility] [place] | | | | | | [address] | | | | | | | | +--------+ + + + + | 08/12/ | Hospital | Infusion Therapy | Elmer Silva | | | 2019 | Encounter | | Trip, [address] | | | | | | [place] | | | | | | [address] | | | | | | | | +--------+ + + + + | 08/12/ | Appointment | Oncology | Lionel Benson | | | 2019 | | | Ze Unger [address] | | | | | | [address] | | | | | | [place] [address] | | | | | | [phone] | | | | | | | | +--------+ + + + + | 08/19/ | Appointment | Oncology | Elmer Silva | | | 2019 | | | E, [address] | | | | | | ST [place], [place] | | | | | | [address] | | | | | | | | +--------+ + + + + | 08/19/ | Appointment | Infusion Therapy | Elmer Silva | | | 2019 | | | MD Trip [address] | | | | | | [place] | | | | | | [address] | | | | | | | [...] [place] | | | | | | [address] | | | | | | | [...] [place] | | | | | | [address] | | | | | | | [...] [place] | | | | | | [address] | | | | | | | [...] [place] | | | | | | [address] | | | | | | | | +--------+ + + + + + + +--------+ + + | Name | Type | Priori | Associated Diagnoses | Order Schedule | | | | ty | | | + + +--------+ + + | * [facility] | Outpatient | Routin | Non-small cell | Ordered: 07/22/2020 | | Services - AMB | Referral [...]
--- OUTSIDE RECORDS SUMMARY | ~2020-08-08 | XMS | Encounter Summary ---
Demographics + + + | Address | [address] | | | [place] [address] | + + + | Home Phone [...] Team Providers + +------+ + | Care Payroll Assistant Name | Role | Phone | + +------+ + | Zuleyka Martínez | PCP | | + +------+ + Reason for Visit +--------+--------+ + | Reason | Onset | Comments | | | Date | | +--------+--------+ + | Other | 04/27/ | Survivorship | | | 2017 | | +--------+--------+ + Encounter Details +--------+ + + + + | Date | Type | Department | Care Team | Description | +--------+ + + + + | 04/27/ | Telephone | [facility] | Serenity Dunn, | Other (Survivorship) | | 2017 | | MED CTR MEDICAL | RN | | | | | ONCOLOGY CLINIC [address] | | | | | | [address] | | | | | | [place] [address] | | | | | | [phone] | | | +--------+ + + + [...] Telephone Encounter - Serenity Dunn RN - 04/27/2017 10:54 AM PDTI called Olena olea norygilma up with her about the survivorship care plan she received on 04/23/17 (see previous marisela ne encounters from myself and Cassi Pulido, BILL). Olena received a care plan for a previo usly treated thyroid cancer and one for her lung cancer of which she just completed treatmen t on 04/23/17. The care plans were discussed over the phone and Olena does not have any qu estions. I notified Olena I would be calling in one month to follow up and discuss any qu estions she may have. Let her know if there are any questions before then, she is welcome to call me anytime, contact information provided. Olena denies any distress or needs that s he could use assistance for. She is aware of social work and rehab navigator services and ho w to contact them should she need in the future. Olena had a follow up with Dr. Vargas on 04/23/17 to discuss her thyroid cancer follow up and she will be having thyroid labs drawn on 05/03/17 as well as a neck US. She will follo w up with Dr. Salazar regarding her lung cancer on 05/03/17. In addition to the survivorship care plans, the following resources were provided: informat ion about local and national support groups, nutrition during and after cancer treatment inc luding mediterranean/anti-inflammation diets, fact sheet on coping with the fear of recurren ce and a booklet titled After Treatment Ends: Tools for the Adult Cancer Survivor. documented in this encounter Plan of Treatment +--------+ + + + + | Date | Type | Specialty | Care Team | Description | +--------+ + + + + | 08/12/ | Appointment | Oncology | Elmer Silva | | | 2019 | | | MD [address] Dominique | | | | | | [place] | | | | | | [address] | | | | | | | | +--------+ + + + + | 08/12/ | Hospital | Infusion Therapy | Elmer Silva | | | 2019 | Encounter | | MD Lazaro Dominique | | | | | | [place] | | | | | | [address] | | | | | | | | +--------+ + + + + | 08/12/ | Appointment | Oncology | Lionel Benson | | 2019 | | | [address] | | | | | | [address] | | | | | | [place] [address] | | | | | | [phone] | | | | | | | | +--------+ + + + + | 08/19/ | Appointment | Oncology | Elmer Silva | | | 2019 | | | E, [address] | | | | | | [place] | | | | | | [address] | | | | | | | | +--------+ + + + + | 08/19/ | Appointment | Infusion Therapy | Elmer Silva | | | 2019 | | | E, MD [address] | | | | | | [place] | | | | | | [address] | | | | | | | [...] [place] | | | | | | [address] | | | | | | | [...] [place] | | | | | | [address] | | | | | | | [...] [place] | | | | | | [address] | | | | | | | [...] [place] | | | | | | [address] | | | | | | | | +--------+ + + + + documented as of this encounter Visit Diagnoses Not on filedocumented in this encounter"
--- OUTSIDE RECORDS SUMMARY | ~2020-08-08 | XMS | Encounter Summary ---
Demographics + + + | Address | [address] | | | [place] [address] | + + + | Home Phone [...] Team Providers + +------+ + | Care Warp Hanger Name | Role | Phone | [...] | | Non-small | Salazar, | [address] [place] | | | | | cell cancer | [place] | [place], | | | | | of right | [place] | [place] [address] | | | | | lung (HCC) | [address] | Phone: | | | | | Procedures | [place] | [phone] | | | | | CT Chest | [place], [place] | Fax: | | | | | Abdomen | [address] | [phone] | | | | | Pelvis w | Phone: | | | | | | Contrast | [phone] | | | | | | | Fax: | | | | | | | [phone] | | +--------+--------+ + + + + [...] | | Non-small | Marie, | [address] | | | | | cell cancer | [place] | [place], | | | | | of right | MD [place] | [place] [address] | | | | | lung (HCC) | [address] | Phone: | | | | | Procedures | [place] | [phone] | | | | | CT Chest | [place] | Fax: | | | | | Abdomen | [address] | [phone] | | | | | Pelvis w | Phone: | | | | | | Contrast | [phone] | | | | | | | Fax: | | | | | | | [phone] | | +--------+--------+ + + + + Encounter Details +--------+ + + + + | Date | Type | Department | Care Team | Description | +--------+ + + + + | 08/18/ | Hospital | [facility] | [place] Salazar | Non-small cell | | 2018 | Encounter | MED CTR CT [address] | MD [place] [address] | cancer of right lung | | | | [place], | [address] [place] | ([facility]) | | | | [place] [address] | [place] [address] | | | | | [phone] | | | | | | | [...] [place] | | | | | | [address] | | | | | | | | +--------+ + + + + | 08/12/ | Hospital | Infusion Therapy | Elmer Silva | | | 2019 | Encounter | | E, [address] | | | | | | [place] | | | | | | [address] | | | | | | | | +--------+ + + + + | 08/12/ | Appointment | Oncology | Lionel Benson | | | 2019 | | | JZe [address] | | | | | | [address] [place] | | | | | | [place] [address] | | | | | | [phone] | | | | | | | | +--------+ + + + + | 08/19/ | Appointment | Oncology | Elmer Silva | | | 2019 | | | E, [address] | | | | | | [place] | | | | | | [address] | | | | | | | | +--------+ + + + + | 08/19/ | Appointment | Infusion Therapy | Elmer Silva | | 2019 | | | MD Lazaro Dominique [address] | | | | | | [place] [facility] [place] | | | | | | [address] | | | | | | | [...] [place] | | | | | | [address] | | | | | | | [...] [place] | | | | | | [address] | | | | | | | [...] [place] | | | | | | [address] | | | | | | | [...] [place] | | | | | | [address] | | | | | | | [...] the | | | | PDT | ([facility]) | results section. | + +--------+ + [...] seen within bilateral femoral necks within the [id number] | | body.IMPRESSION -No evidence for a [...] iohexol (OMNIPAQUE 350) 350 | Given | /18/20 | 90 mLs | | | | mg/mL injection 90 mL 90 mL, | | 18 12:14 | | | | | Intravenous, ONCE PRN, Other, for | | PM PDT | | | | | CT contrast study, Starting Katy | | | | | | | 08/18/18 at 1223, For 1 dose, | | | | | | | Radiology | | | | | | + +--------+ +--------+------+------+ +---+---+ | | | +---+---+ documented in this encounter"
--- OUTSIDE RECORDS SUMMARY | ~2020-08-08 | XMS | Encounter Summary ---
Demographics + + + | Address | [address] | | | [place] [address] | + + + | Home Phone [...] Team Providers + +------+ + | Care Farm Products Shipper Name | Role | Phone | + [...] + + | 04/02/ | Hospital | [facility] | [place] Salazar | | | 2017 | Encounter | MED CTR NUTRITION | MD [place] [address] | | | | | SERVICES [address] | [facility] | | | | | [facility] [place], | [place] [address] | | | | | [place] [address] | [phone] | | | | | [phone] | | | | | | | [...] [place] | | | | | | [address] | | | | | | | | +--------+ + + + + | 08/12/ | Hospital | Infusion Therapy | Elmer Silva | | | 2019 | Encounter | | MD [address]azaro Dominique [address] | | | | | | [place] | | | | | | [address] | | | | | | | | +--------+ + + + + | 08/12/ | Appointment | Oncology | Lionel Benson | | 2019 | | | Ze Unger [address] | | | | | | [address] | | | | | | [place] [address] | | | | | | [phone] | | | | | | | | +--------+ + + + + | 08/19/ | Appointment | Oncology | Elmer Silva | | | 2019 | | | E, MD [address] | | | | | | [place] | | | | | | [address] | | | | | | | | +--------+ + + + + | 08/19/ | Appointment | Infusion Therapy | Elmer Silva | | | 2019 | | | E, [address] | | | | | | [place] | | | | | | [address] | | | | | | | [...] [place] | | | | | | [address] | | | | | | | [...] [place] | | | | | | [address] | | | | | | | [...] [place] | | | | | | [address] | | | | | | | [...]
--- OUTSIDE RECORDS SUMMARY | ~2020-08-08 | XMS | Encounter Summary ---
Demographics + + + | Address | [address] | | | [place] [address] | + + + | Home Phone [...] Team Providers + +------+ + | Care Yarn Conditioner Name | Role | Phone | + [...] | | | (ICD-9-CM) - | [address] [place] | [address] [place] | | | | | Non-small | [place], | [place], [place] | | | | | cell cancer | [place] | [address] Phone: | | | | | of right | [address] | [phone] | | | | | lung | Phone: | Fax: | | | | | Procedures | [phone] | [phone] | | | | | 20202 | Fax: | | | | | | | [phone] | | +--------+--------+ + + + + Encounter Details +--------+ + + + + | Date | Type | Department | Care Team | Description | +--------+ + + + + | 02/11/ | Hospital | [facility] | Milton Salazar | Brain tumor (HCC) | | 2020 | Encounter | [facility] | MD Beb[address] | (Primary Dx) | | | | ONCOLOGY CLINIC [address] | [address] | | | | | [address] | [place] [address] | | | | | [place] [address] | [phone] | | | | | [phone] | | | +--------+ + + + [...] from the original. Hem-Onc Progress Note [facility] Pt. Name/Age/: Olena Rider 59 y.o. 1960 Med. Record Number: [id number] Date of admission: 02/12/2020 Assessment and plan: [...] grade pT1c pN 0(sn) ER+(99% , strong), PA+(60%, strong), Her2 non-amplified (FISH ratio 1.06) Status [...] hearing that there may be to other md urosurgeons in our region who would be [...] a 12 x 7 mm lymph node in the right neck level 2, SUV [...] 2.4. New medial left apical strandy change measuring 12 x 3 mm, without uptake. Enlarging bulla in the medial left lung base measuring 4.8 by 4.4 cm 4/135. Mediastinum: No significant pericardial, great vessel, or esophageal abnormality. No mediastinal mass. New clips in the right axilla. New poorly defined complex fluid collection in the lateral right breast /144 without internal uptake. Minimal peripheral uptake, SUV up to 2.2. New mild skin thickening of the right breast. Lymph Nodes: There are no pathologically enlarged or FDG-avid lymph nodes in the chest. ABDOMEN: Liver and Biliary: No biliary abnormality. No abnormal metabolic activity in the liver. Pancreas, Spleen and Adrenals: Stable hypodense 10 mm nodule in the left adrenal 164, Hounsfield unit attenuation -24, without uptake, likely [...] in the anterior subpleural right lung base /129, SUV 2.4. 2. New medial left apical strandy change 95 [...] by: Milton Salazar MD, 02/12/2020 8:19 AM [facility] TIME SPENT 25 MIN. > 50% AT BEDSIDE, WITH FAMILY/PATIENT IN CARE AND RIBBON HANKING MACHINE OPERATOR ON UNIT AND CO ORDINATION OF CARE Portions of this chart may have been created with [employer] voice recognition software. Occasi onal wrong-word or sound-alike substitutions may have occurred due to the inherent cervantes itations of voice recognition software. Please read the chart carefully and recognize, using context, where these substitutions have occurred. Amanda Wagner [facility] - 02/12/2020 8:20 AM PDTRECloudRunner I/O O F SYSTEMS Constitutional: Denies high fevers, [...] [place] | | | | | | [address] | | | | | | | | +--------+ + + + + | 08/12/ | Appointment | Oncology | Lionel Benson | | | 2019 | | | J, PharmCorky [address] | | | | | | [address] [place] | | | | | | [place] [address] | | | | | | [phone] | | | | | | | | +--------+ + + + + | 08/19/ | Appointment | Oncology | Elmer Silva | | | 2019 | | | EMD [address] | | | | | | [place] | | | | | | [address] | | | | | | | | +--------+ + + + + | 08/19/ | Appointment | Infusion Therapy | Elmer Silva | | | 2019 | | | E, [address] | | | | | | [place] | | | | | | [address] | | | | | | | [...] [place] | | | | | | [address] | | | | | | | [...] [place] | | | | | | [address] | | | | | | | [...] [place] | | | | | | [address] | | | | | | | [...] [place] | | | | | | [address] | | | | | | | | +--------+ + + + + documented as of this encounter Visit Diagnoses + + | Diagnosis | + + | Brain tumor (HCC) - Primary Neoplasm of unspecified nature of brain | + + documented in this encounter
--- OUTSIDE RECORDS SUMMARY | ~2020-08-08 | XMS | Encounter Summary ---
Demographics + + + | Address | [address] | | | [place] [address] | + + + | Home Phone [...] Team Providers + +------+ + | Care Sawmill Production Worker Name | Role | Phone | [...] | | | (ICD-9-CM) - | [address] [place] | [address] [place] | | | | | Non-small | [place], | [place], [place] | | | | | cell cancer | [place] | [address] Phone: | | | | | of right | [address] | [phone] | | | | | lung | Phone: | Fax: | | | | | Procedures | [phone] | [phone] | | | | | [address] | Fax: | | | | | | | [phone] | | +--------+--------+ + + + + Encounter Details +--------+ + + + + | Date | Type | Department | Care Team | Description | +--------+ + + + + | 03/26/ | Hospital | [facility] | Milton Salazar | Non-small cell | | 2019 | Encounter | [facility] | MD [address]eb[address] | cancer of right lung | | | | ONCOLOGY CLINIC [address] | [address] [place] | (HCC); Papillary | | | | [place] | [facility] [address] | thyroid carcinoma | | | | [place] [address] | [phone] | (HCC) | | | | [phone] | | | +--------+ + + + [...] d from 83.2 kg to 82.6 kg [facility] e 03/22/2020. Ear, Nose, Mouth, Throat: Denies [...] from the origi nal. Hem-Onc Progress Note [facility] Pt. Name/Age/: Olena Rider 59 y.o. 1960 Med. Record Number: [id number] Date of admission: 03/26/2020 Assessment and plan: [...] grade pT1c pN 0(sn) ER+(99% , strong), [place]+(60%, strong), Her2 non-amplified (FISH ratio 1.06) Status post left lumpectomy, sentinel lymph node biopsy, Dr. Luis Felipe Pugh, July, 4. Hereditary cancer predilection testing,INWEBTURE Limited eusebia,Instabug Variant of unknown significance in AXIN2: [id number] (p.[id number]) Counseling session this afternoon with patient, earlier presentation of case at most recent session of [facility] tumor board, confer all with our radiation oncology colleagu erich and then discussion with regard to next steps in evaluation. We began by trying to put o ptimistic assessment given the patient's systemic staging indicated no evidence of metastati c disease and patient's brain tumor an isolated event which we believe will be controlled wi th stereotactic radiation. Patient aware that she will need continued follow-up and monitor ing particularly of the OVERHEAD DOOR TECHNICIAN using MRI as often as quarterly. This [...] d from 83.2 kg to 82.6 kg [facility] e 03/22/2020. Ear, Nose, Mouth, Throat: Denies [...] by: Milton Salazar MD, 03/26/2020 2:22 PM [facility] TIME SPENT 25 MIN. > 50% AT BEDSIDE, WITH FAMILY/PATIENT IN CARE AND REGULATORY PROCESS MANAGER ON UNIT AND CO ORDINATION OF CARE Portions of this chart may have been created with [employer] voice recognition software. Occasi onal wrong-word or [...] [address] | | | | | | [place], [place] | | | | | | [address] | | | | | | | | +--------+ + + + + | 08/12/ | Hospital | Infusion Therapy | Elmer Silva | | 2019 | Encounter | | E, [address] | | | | | [place] | | | | | | [address] | | | | | | | | +--------+ + + + + | 08/12/ | Appointment | Oncology | Lionel Benson | | 2019 | | | JZe [address] | | | | | | [address] [place] | | | | | | [place] [address] | | | | | | [phone] | | | | | | | | +--------+ + + + + | 08/19/ | Appointment | Oncology | Elmer Silva | | | 2019 | | | E, [address] | | | | | | [place] | | | | | | [address] | | | | | | | | +--------+ + + + + | 08/19/ | Appointment | Infusion Therapy | Elmer Silva | | | 2019 | | | E, [address] | | | | | | [place] | | | | | | [address] | | | | | | | [...] [place] | | | | | | [address] | | | | | | | [...] [place] | | | | | | [address] | | | | | | | [...] [place] | | | | | | [address] | | | | | | | [...] [place] | | | | | | [address] | | | | | | | [...]
--- OUTSIDE RECORDS SUMMARY | ~2020-08-08 | XMS | Encounter Summary ---
Demographics + + + | Address | [address] | | | [place] [address] | + + + | Home Phone [...] | [facility] | | | and [...] Providers + +------+ + | Care Commercial Construction Estimator Name | Role | Phone | [...] | | | [address] [place] | [place] [address] | | | | | [place] [address] | | | | | | [phone] | | | +--------+ + + + [...] [place] | | | | | | [address] | | | | | | | | +--------+ + + + + | 08/12/ | Hospital | Infusion Therapy | Elmer Silva | | | 2019 | Encounter | | MD Lazaro Dominique [address] | | | | | | [place] | | | | | | [address] | | | | | | | | +--------+ + + + + | 08/12/ | Appointment | Oncology | Lionel Benson | | 2019 | | | Ze Unger [address] | | | | | | [address] | | | | | | [place] [address] | | | | | | [phone] | | | | | | | | +--------+ + + + + | 08/19/ | Appointment | Oncology | Elemr Silva | | | 2019 | | | E, MD [address] | | | | | | [place] | | | | | | [address] | | | | | | | | +--------+ + + + + | 08/19/ | Appointment | Infusion Therapy | Elmer Silva | | | 2019 | | | E, MD [address] | | | | | | [place] | | | | | | [address] | | | | | | | [...] [place] | | | | | | [address] | | | | | | | [...] [place] | | | | | | [address] | | | | | | | [...] [place] | | | | | | [address] | | | | | | | [...] | | | | | | [place] | | | | | | [address] | | | | | | | | +--------+ + + + + documented as of this encounter Procedures + +--------+ + + + | Procedure Name | Priori | Date/Time | Associated Diagnosis | Comments | | | ty | | | | + +--------+ + + + | ADAM WILBURN | Routin | 05/25/2019 | | Results [...]
--- OUTSIDE RECORDS SUMMARY | ~2020-08-08 | XMS | Encounter Summary ---
Demographics + + + | Address | [address] | | | [place] [address] | + + + | Home Phone [...] Team Providers + +------+ + | Care Relay Man Name | Role | Phone | [...] [place] | | | | | [address] | [place] [address] | | | | | [place] [address] | [phone] | | | | | [phone] | | | +--------+ + + + [...] her that [facility] once Dr. Salazar signs it. [...] att unique Miller. Work fax number # [phone]. If you have any questions, please call Carmen ellison @ [phone]. She is employed by [employer]. documented in this encounter Plan of Treatment +--------+ + + + + | Date | Type | Specialty | Care Team | Description | +--------+ + + + + | 08/12/ | Appointment | Oncology | Elmer Silva | | | 2019 | | | E, [address] | | | | | | [place] | | | | | | [address] | | | | | | | | +--------+ + + + + | 08/12/ | Hospital | Infusion Therapy | Elmer Silva | | | 2019 | Encounter | | E, [address] | | | | | | [place] | | | | | | [address] | | | | | | | | +--------+ + + + + | 08/12/ | Appointment | Oncology | Lionel Benson | | | 2019 | | | Ze Un[address] | | | | | | [address] [place] | | | | | | [place] [address] | | | | | | [phone] | | | | | | | | +--------+ + + + + | 08/19/ | Appointment | Oncology | Elmer Silva | | | 2019 | | | E, [address] | | | | | | [place], [place] | | | | | | [address] | | | | | | | | +--------+ + + + + | 08/19/ | Appointment | Infusion Therapy | Elmer Silva | | | 2019 | | | E, [address] | | | | | | [place], [place] | | | | | | [address] | | | | | | | [...] [place] | | | | | | [address] | | | | | | | | +--------+ + + + + | 09/09/ | Appointment | Infusion Therapy | | | | 2019 | | | | | +--------+ + + + + | 09/16/ | Office | Oncology | Elmer Silva | | | 2019 | Visit | | Bernard, MD [address] | | | | | | [place] | | | | | | [address] | | | | | | | [...] [place] | | | | | | [address] | | | | | | | [...] [place] | | | | | | [address] | | | | | | | | +--------+ + + + + documented as of this encounter Visit Diagnoses Not on filedocumented in this encounter
--- OUTSIDE RECORDS SUMMARY | ~2020-08-08 | XMS | Encounter Summary ---
Demographics + + + | Address | [address] | | | [place] [address] | + + + | Home Phone [...] Team Providers + +------+ + | Care Station Cook Name | Role | Phone | + +------+ + | Zuleyka Martínez | PCP | | + +------+ + Reason for Visit Diagnostic/Screening (Urgent) +--------+--------+ + + + + | Status | Reason | Specialty | Diagnoses / | Referred By | Referred To | | | | | Procedures | Contact | Contact | +--------+--------+ + + + + | Closed | | Radiology | Diagnoses | Fabianoegert, | [facility] | | | | | | Susie M, | [address] | | | | | Radiculopath | MD [address] | [place], | | | | | y affecting | [address] | [place] | | | | | upper | [place], | [address] | | | | | extremity | [place] [address] | Phone: | | | | | Procedures | Phone: | [phone] | | | | | MRI Cervical | [phone] | Fax: | | | | | Spine w wo | Fax: | [phone] | | | | | Contrast | [phone] | | +--------+--------+ + + + + Encounter Details +--------+ + + + + | Date | Type | Department | Care Team | Description | +--------+ + + + + | 07/22/ | Hospital | [facility] | Susie Montemayor | Stanislavceldiana (OTHER) | | 2020 | Encounter | MED CTR MRI [address] | M, [address] | | | | [place], | [place], [place] | | | | | [place] [address] | [address] | | | | | [phone] | | | +--------+ + + + [...] [place] | | | | | | [address] | | | | | | | | +--------+ + + + + | 08/12/ | Hospital | Infusion Therapy | Elmer Silva | | | 2019 | Encounter | | MD Lazaro Dominique [address] | | | | | | [place] | | | | | | [address] | | | | | | | | +--------+ + + + + | 08/12/ | Appointment | Oncology | Lionel Benson | | | 2019 | | | Ze Un[address] | | | | | | [address] | | | | | | [place] [address] | | | | | | [phone] | | | | | | | | +--------+ + + + + | 08/19/ | Appointment | Oncology | Elmer Silva | | | 2019 | | | E, [address] | | | | | | [place] | | | | | | [address] | | | | | | | | +--------+ + + + + | 08/19/ | Appointment | Infusion Therapy | Elmer Silva | | | 2019 | | | E, [address] | | | | | | [place] | | | | | | [address] | | | | | | | [...] [place] | | | | | | [address] | | | | | | | [...] [place] | | | | | | [address] | | | | | | | [...] [place] | | | | | | [address] | | | | | | | [...] | | | | | | ST [place], [place] | | | | | | [address] | | | | | | | [...] + documented in this encounter Results MRI Cervical Spine w [...] Procedure Note | + + | Christopher, [id number] - 07/19/2020 5:43 PM PDT MRI CERVICAL [...] significant portion of the right | | C6-E7qfohea foramen measuring approximately 2.2 x 0.7 cm. A portion of thismay be | | artifactual. Please correlate to see if this fits with a T5lkaes distribution | | radiculopathy.2. Posterior disc protrusion [...]
--- OUTSIDE RECORDS SUMMARY | ~2020-08-08 | XMS | Encounter Summary ---
Demographics + + + | Address | [address] | | | [place] [address] | + + + | Home Phone [...] | Organization | [facility] | | | and [...] Team Providers + +------+ + | Care Trip Rider Name | Role | Phone | + [...] (HCC) | [address] | [address] | | | | | Procedures | | [place], | | | | | [place] Thyroid | [address] | [place] | | | | | Cancer | [place], | [address] | | | | | Metastatic | [place] [address] | Phone: | | | | | Whole Body | Phone: | [phone] | | | | | | [phone] | Fax: | | | | | | Fax: | [phone] | | | | | | [phone] | | +--------+--------+ + + + + [...] + + | 10/19/ | Hospital | [facility] | Zuleyka Cota, | Thyroid cancer (HCC) | | 2018 | Encounter | MED CTR NUCLEAR | MD [address] | | | | | MEDICINE [address] | [address] [place], | | | | | [place], | [place] [address] | | | | | [place] [address] | [phone] | | | | | [phone] | | | +--------+ + + + [...] [place] | | | | | | [address] | | | | | | | | +--------+ + + + + | 08/12/ | Hospital | Infusion Therapy | Elmer Silva | | 2019 | Encounter | | MD Lazaro Dominique | | | | | | [place] | | | | | | [address] | | | | | | | | +--------+ + + + + | 08/12/ | Appointment | Oncology | Lionel Benson | | | 2019 | | | [address] | | | | | | [address] [place] | | | | | | [place] [address] | | | | | | [phone] | | | | | | | | +--------+ + + + + | 08/19/ | Appointment | Oncology | Elmer Silva | | | 2019 | | | E, [address] | | | | | | [place], [place] | | | | | | [address] | | | | | | | | +--------+ + + + + | 08/19/ | Appointment | Infusion Therapy | Elmer Silva | | | 2019 | | | E, [address] | | | | | | [place], [place] | | | | | | [address] | | | | | | | [...] [place] | | | | | | [address] | | | | | | | [...] [place] | | | | | | [address] | | | | | | | [...] [place] | | | | | | [address] | | | | | | | [...] [place] | | | | | | [address] | | | | | | | [...] of I-131 radiates tracer with | | [id number]-ytzy imaging of the thyroid for surveillance imaging.FINDINGS:Minimal [...] | iodine I-131 (diagnostic) | Given | // | 4 | | | | capsule 5 millicurie 5 | | 18 2:26 | millicur | | | | millicurie, Oral, ONCE PRN, | | PM PST | ies | | | | Other, Starting Wed10/19/18 at | | | | | | | 1426, For 1 dose, Nuclear | | | | | | | Medicine | | | | | | + +--------+ + +------+------+ +---+---+ | | | +---+---+ documented in this encounter"
--- OUTSIDE RECORDS SUMMARY | ~2020-08-08 | XMS | Encounter Summary ---
Demographics + + + | Address | [address] | | | [place] [address] | + + + | Home Phone [...] Team Providers + +------+ + | Care Wildlife Refuge Manager Name | Role | Phone | [...] + + | 02/19/ | Telephone | [facility] | Lemuel Da Silva DO | Appointment | | 2019 | | NEUROSURGERY [address] | [address] | | | | | [address] | [address] | | | | | [place], [place] | [place] [address] | | | | | [address] | [phone] | | | | | [phone] | | | +--------+ + + + [...] she included the authorization ethel sawyer. CPT: 29196 Authorization number [id number] 8:3 4 AM PDTdocumented in this encounter Plan of Treatment +--------+ + + + + | Date | Type | Specialty | Care Team | Description | +--------+ + + + + | 08/12/ | Appointment | Oncology | Elmer Silva | | 2019 | | | MD [address]ique | | | | | | [place], [place] | | | | | | [address] | | | | | | | | +--------+ + + + + | 08/12/ | Hospital | Infusion Therapy | Elmre Silva | | | 2019 | Encounter | | MD Lazaro Dominique [address] | | | | | | [address] [place] | | | | | | [address] | | | | | | | | +--------+ + + + + | 08/12/ | Appointment | Oncology | Lionel Benson | | | 2019 | | | [address] | | | | | | [address] | | | | | | [place] [address] | | | | | | [phone] | | | | | | | | +--------+ + + + + | 08/19/ | Appointment | Oncology | Elmer Silva | | | 2019 | | | MD Lazaro Dmoinique [address] | | | | | | [address] [place] | | | | | | [address] | | | | | | | | +--------+ + + + + | 08/19/ | Appointment | Infusion Therapy | Elmer Silva | | | 2019 | | | MD Lazaro Dominique [address] | | | | | | [place] | | | | | | [address] | | | | | | | [...] [place] | | | | | | [address] | | | | | | | [...] [place] | | | | | | [address] | | | | | | | [...] [place] | | | | | | [address] | | | | | | | [...] [place] | | | | | | [address] | | | | | | | | +--------+ + + + + documented as of this encounter Visit Diagnoses Not on filedocumented in this encounter"
--- OUTSIDE RECORDS SUMMARY | ~2020-08-08 | XMS | Encounter Summary ---
Demographics + + + | Address | [address] | | | [place] [address] | + + + | Home Phone [...] Team Providers + +------+ + | Care Php Consultant Name | Role | Phone | [...] | | | [address] [place] | [place] [address] | | | | | [place] [address] | | | | | | [phone] | | | +--------+ + + + [...] [place] | | | | | | [address] | | | | | | | | +--------+ + + + + | 08/12/ | Hospital | Infusion Therapy | Elmer Silva | | | 2019 | Encounter | | MD Lazaro Dominique [address] | | | | | | [place] | | | | | | [address] | | | | | | | | +--------+ + + + + | 08/12/ | Appointment | Oncology | Lionel Benson | | 2019 | | | Ze [address] | | | | | | [address] | | | | | | [place] [address] | | | | | | [phone] | | | | | | | | +--------+ + + + + | 08/19/ | Appointment | Oncology | Elmer Silva | | | 2019 | | | E, MD [address] | | | | | | [place] | | | | | | [address] | | | | | | | | +--------+ + + + + | 08/19/ | Appointment | Infusion Therapy | Elmer Silva | | | 2019 | | | E, MD [address] | | | | | | [place] | | | | | | [address] | | | | | | | [...] [place] | | | | | | [address] | | | | | | | [...] [place] | | | | | | [address] | | | | | | | [...] [place] | | | | | | [address] | | | | | | | [...] | | | | | [place] | | | | | | [address] | | | | | | | | +--------+ + + + + documented as of this encounter Procedures + +--------+ + + + | Procedure Name | Priori | Date/Time | Associated Diagnosis | Comments | | | ty | | | | + +--------+ + + + | US BREAST LIMITED | Routin | 06/13/2019 | | Results for this | | RIGHT | e | 12:05 AM | | procedure are in the | | | | PDT | | results section. | + +--------+ + + + documented in this encounter Results US Breast Limited Right (06/13/2019 12:05 AM PDT) + + | Specimen [...]
--- OUTSIDE RECORDS SUMMARY | ~2020-08-08 | XMS | Encounter Summary ---
Demographics + + + | Address | [address] | | | [place] [address] | + + + | Home Phone [...] Team Providers + +------+ + | Care Technical Sales Advisor Name | Role | Phone | + +------+ + | Zuleyka Martínez | PCP | | + +------+ + Encounter Details +--------+ + + + + | Date | Type | Department | Care Team | Description | +--------+ + + + + | 02/18/ | Clinical | [facility] | | Brain mass | | 2020 | Support | NEUROSURGERY [address] | | | | | | [address] | | | | | | [place], [place] | | | | | | [address] | | | | | | [phone] | | | +--------+ + + + [...] + + documented as of this encounter Patient Instructions Patient Instructions Grisel Villa RN - 02/19/2020 10:15 AM PDTPreOp Instructions: -Discontinue aspirin, coumadin, heparin, etc 5-7 days before surgery -Discontinue any NSAIDs, such as ibuprofen and aleve 5-7 days before surgery. -Take prescribed medications as directed for pain management. -Don't bend or lift anything greater than 5-10 lbs. -Reminder to go to pre-op appt at hospital, and take consent form. If you have any questions or concerns feel free to call us at [phone]. documented in this encounter Progress Notes Grisel Villa RN - 02/19/2020 10:15 AM PDTPre-op visit conducted via telephone: their sc heduled right stereotactic biopsy right frontal lesion on 02/27/20. Biopsy needed to determin e type of tumor as patient has complex oncologic history. Surgical informed consent to be si gned by patient and Dr. Da Silva on the day of surgery. Patient present for this appointment. Pre-op and post-op instructions reviewed to include: activity and restrictions, medications - stop NSAID's on 02/20/20, may resume 1-2 weeks post- op, diet - increase fluids and fiber intake, post-op wound care, when to call the doctor. Ad vised patient to take pain medication and muscle relaxer 1 hour apart, taking together incre ases drowsiness and risk of falls. Questions were addressed, patient verbalized understandi ng of given instruction. [facility] will contact patient to schedule their scheduled pre-admit appointment, anesthesia con sult, lab draw, EKG and chest xray. Orders entered per Dr. Da Silva's preference and hospital guidelines. Pre-op instructions mailed to patient. Patient was given an appointment reminder for their first post-op visit on 03/11/20 @ 1130 a nd instructed to call in the interim with any problems or concerns. documented in this en counter Plan of Treatment +--------+ + + + + | Date | Type | Specialty | Care Team | Description | +--------+ + + + + | 10/12/ | Appointment | Oncology | Elmer Silva | | | 2019 | | | E, [address] | | | | | | [place] | | | | | | [address] | | | | | | | | +--------+ + + + + | 08/12/ | Hospital | Infusion Therapy | Elmer Silva | | | 2019 | Encounter | | E, [address] | | | | | | [place] | | | | | | [address] | | | | | | | | +--------+ + + + + | 08/12/ | Appointment | Oncology | Lionel Benson | | | 2019 | | | Ze Unger [address] | | | | | | [address] [facility] | | | | | | [place] [address] | | | | | | [phone] | | | | | | | | +--------+ + + + + | 08/19/ | Appointment | Oncology | Elmer Silva | | | 2019 | | | E, [address] | | | | | | [place], [place] | | | | | | [address] | | | | | | | | +--------+ + + + + | 08/19/ | Appointment | Infusion Therapy | Elmer Silva | | | 2019 | | | E, [address] | | | | | | [place], [place] | | | | | | [address] | | | | | | | [...] [place] | | | | | | [id number] | | | | | | | [...] [place] | | | | | | [address] | | | | | | | [...] [place] | | | | | | [address] | | | | | | | [...] | | | | | | [address] [place] | | | | | | [address] | | | | | | | | +--------+ + + + + documented as of this encounter Visit Diagnoses + + | Diagnosis | + + | Brain mass Unspecified condition of brain | + + documented in this encounter"
--- OUTSIDE RECORDS SUMMARY | ~2020-08-08 | XMS | Encounter Summary ---
Demographics + + + | Address | [address] | | | [place] [address] | + + + | Home Phone [...] Providers + +------+ + | Care Environmental Field Technician Name | Role | Phone | [...] | | Susie M, | [address] | | | | | Radiculopath | MD [address] | [place], | | | | | y affecting | [address] | [place] | | | | | upper | [place], | [address] | | | | | extremity | [place] [address] | Phone: | | | | | Procedures | Phone: | [phone] | | | | | MRI Cervical | [phone] | Fax: | | | | | Spine w wo | Fax: | [phone] | | | | | Contrast | [phone] | | +--------+--------+ + + + + [...] | | Susie M, | [address] | | | | | Radiculopath | [address] | [place], | | | | | y affecting | [address] | [place] | | | | | upper | [place], | [address] | | | | | extremity | [place] [address] | Phone: | | | | | Procedures | Phone: | [phone] | | | | | MRI Cervical | [phone] | Fax: | | | | | Spine w wo | Fax: | [phone] | | | | | Contrast | [phone] | | +--------+--------+ + + + + Encounter Details +--------+ + + + + | Date | Type | Department | Care Team | Description | +--------+ + + + + | 07/19/ | Hospital | [facility] | Susie Montemayor | Radiculopathy | | 2020 | Encounter | MED CTR MRI [address] | M, [address] | affecting upper | | | | [address] [place], | [place], [place] | extremity | | | | [place] [address] | [address] | | | | | [phone] | | | +--------+ + + + [...] | | | | [place] | | | | | | [address] | | | | | | | | +--------+ + + + + | 08/12/ | Hospital | Infusion Therapy | Elmer Silva | | | 2019 | Encounter | | MD Lazaro [address] | | | | | | [place] | | | | | | [address] | | | | | | | | +--------+ + + + + | 08/12/ | Appointment | Oncology | Lionel Benson | | | 2019 | | | Ze Unger [address] | | | | | | [address] [place] | | | | | | [place] [address] | | | | | | [phone] | | | | | | | | +--------+ + + + + | 08/19/ | Appointment | Oncology | Elmer Silva | | | 2019 | | | E, [address] | | | | | | ST [place], [place] | | | | | | [address] | | | | | | | | +--------+ + + + + | 08/19/ | Appointment | Infusion Therapy | Elmer Silva | | | 2019 | | | E, [address] | | | | | | ST [place], [place] | | | | | | [address] | | | | | | | [...] [place] | | | | | | [address] | | | | | | | [...] [place] | | | | | | [address] | | | | | | | [...] [place] | | | | | | [address] | | | | | | | | +--------+ + + + + | 09/23/ | Appointment | Infusion Therapy | | | | 2019 | | | | | +--------+ + + + + | 11/22/ | Appointment | Radiation Oncology | AlbinaGerrySusie | | | 2020 | | | MD Jared [address] | | | | | | [place] | | | | | | [address] | | | | | | | [...] Procedure Note | + + | Christopher, [id number] - 07/19/2020 5:43 PM PDT MRI CERVICAL [...] significant portion of the right | | [id number] foramen measuring approximately 2.2 x 0.7 cm. A portion of thismay be | | artifactual. Please correlate to see if this fits with a J7mbfzy distribution | | radiculopathy.2. Posterior disc protrusion [...] + | Diagnosis | + + | Radiculopathy affecting upper extremity Brachial neuritis or radiculitis nos | + + documented in this encounter Administered Medications + +--------+ +--------+------+------+ | Medication Order | MAR | Action | Dose | Rate | Site | | | Action | Date | | | | + +--------+ +--------+------+------+ | gadobutrol (GADAVIST) injection | Given | 07/19/20 | 10 mLs | | | | 10 mL 10 mL, Intravenous, ONCE | | 20 12:47 | | | | | PRN, Other, Starting 07/19/20 | | PM PDT | | | | | at 1247, For 1 dose, MRI | | | | | | + +--------+ +--------+------+------+ +---+---+ | | | +---+---+ documented in this encounter"
--- OUTSIDE RECORDS SUMMARY | ~2020-08-08 | XMS | Encounter Summary ---
Demographics + + + | Address | [address] | | | [place] [address] | + + + | Home Phone | | + + + | Preferred Language | Unknown | + + + | Marital Status | Single | + + + | Baptist Affiliation | Unknown | + + + [...] Providers + +------+ + | Care House Mover Supervisor Name | Role | Phone | [...] | | | [facility]Y CLINIC [address] | [place], [place] | | | | | [address] | [address] | | | | | [place] [address] | | | | | | [phone] | | | +--------+ + + + [...] [place] | | | | | | [address] | | | | | | | | +--------+ + + + + | 08/12/ | Hospital | Infusion Therapy | Elmer Silva | | | 2019 | Encounter | | MD Trip [address] | | | | | | [place] | | | | | | [address] | | | | | | | | +--------+ + + + + | 08/12/ | Appointment | Oncology | Lionel Benson | | | 2019 | | | Ze Unger [address] | | | | | | [address] | | | | | | [place] [address] | | | | | | [phone] | | | | | | | | +--------+ + + + + | 08/19/ | Appointment | Oncology | Elmer Silva | | | 2019 | | | E, MD [address] | | | | | | [place] | | | | | | [address] | | | | | | | | +--------+ + + + + | 08/19/ | Appointment | Infusion Therapy | Elmer Silva | | | 2019 | | | E, MD [address] | | | | | | [place] | | | | | | [address] | | | | | | | [...] [place] | | | | | | [address] | | | | | | | [...] [place] | | | | | | [address] | | | | | | | [...] [place] | | | | | | [address] | | | | | | | [...]
--- OUTSIDE RECORDS SUMMARY | ~2020-08-08 | XMS | Encounter Summary ---
Demographics + + + | Address | [address] | | | [place] [address] | + + + | Home Phone [...] Team Providers + +------+ + | Care Neuropathologist Name | Role | Phone | + [...] Lemuel | | | Required | | (FORM[facility]LY [facility]) | [place] | [address] | | | | | | MD [address] | [address] | | | | | | [address] | [address] | | | | | | ST [place] | [place] | | | | | | [place] | [address] | | | | | | [address] | Phone: | | | | | | Phone: | [phone] | | | | | | [phone] | Fax: | | | | | | Fax: | [phone] | | | | | | [phone] | | +--------+ + + + + + Encounter Details +--------+---------+ + + + | Date | Type | Department | Care Team | Description | +--------+---------+ + + + | 02/01/ | Office | [facility] | Lemuel Da Silva DO | Brain mass (Primary | | 2020 | Visit | NEUROSURGERY [address] | [address] | Dx); Malignant | | | | [address] | [address] | neoplasm of lower | | | | [place], [place] | [place] [address] | lobe of right lung | | | | [address] | [phone] | (HCC); Primary | | | | [phone] | | malignant neoplasm | | | [...] 02/02/2020 9:30 AM PDT Neurosurgery Clinic Note [facility] Provider: Lemuel Da Silva DO Date [...] file Gets together: Not on file Attends caodaism service: Not on file Active member of [...] report ed sensation to light touch Cerebellar: xutclq-fy-jgbe intact, no dysdiadokinesia or dysmetria noted Lab [...] care should any questions or concerns víctor trip feel free to contact me at any time. Lemuel Da Silva D.O Board Certified Neurosurgeon / Chief of Neurosurgery [facility] Office Parts of this document have been created with voice recognition software. Although I have p roofread the note, turret lathe set up operator errors may still exist. documented in this enc ounter Plan of Treatment +--------+ + + + + | Date | Type | Specialty | Care Team | Description | +--------+ + + + + | 08/12/ | Appointment | Oncology | Elmer Silva | | 2019 | | | MD Trip [address] | | | | | | [place] | | | | | | [address] | | | | | | | | +--------+ + + + + | 08/12/ | Hospital | Infusion Therapy | Elmer Silva | | | 2019 | Encounter | | E, [address] | | | | | | [place] | | | | | | [address] | | | | | | | | +--------+ + + + + | 08/12/ | Appointment | Oncology | Lionel Benson | | | 2019 | | | J, Ze [address] | | | | | | [address] [place] | | | | | | [place] [address] | | | | | | [phone] | | | | | | | | +--------+ + + + + | 08/19/ | Appointment | Oncology | Elmer Silva | | | 2019 | | | E, [address] | | | | | | [place] | | | | | | [address] | | | | | | | | +--------+ + + + + | 08/19/ | Appointment | Infusion Therapy | Elmer Silva | | 2019 | | | MD [address]azaro [address] | | | | | | [place] | | | | | | [address] | | | | | | | [...] Visit | | Trip, MD [address] | | | | | | [place] | | | | | | [address] | | | | | | | [...] [place] | | | | | | [address] | | | | | | | [...] [place] | | | | | | [address] | | | | | | | [...] [place] | | | | | | [address] | | | | | | | [...]
--- OUTSIDE RECORDS SUMMARY | ~2020-08-08 | XMS | Encounter Summary ---
Demographics + + + | Address | [address] | | | [place] [address] | + + + | Home Phone [...] Team Providers + +------+ + | Care Packaging Specialist Name | Role | Phone | + +------+ + | Zuleyka Martínez | PCP | | + +------+ + Encounter Details +--------+ + + + + | Date | Type | Department | Care Team | Description | +--------+ + + + + | 07/29/ | Orders Only | [facility] | Natividad Mendoza, | | | 2019 | | MED CTR CHEMO | RN | | | | | INFUSION [address] | | | | | | [place], | | | | | | [place] [address] | | | | | | [phone] | | | +--------+ + + + [...] [place] | | | | | | [address] | | | | | | | | +--------+ + + + + | 08/12/ | Hospital | Infusion Therapy | Elmer Silva | | | 2019 | Encounter | | MD Trip [address] | | | | | | [place] | | | | | | [address] | | | | | | | | +--------+ + + + + | 08/12/ | Appointment | Oncology | Lionel Benson | | | 2019 | | | Ze Unger [address] | | | | | | [address] | | | | | | [place] [address] | | | | | | [phone] | | | | | | | | +--------+ + + + + | 08/19/ | Appointment | Oncology | Elmer Silva | | | 2019 | | | E, MD [address] | | | | | | [place] | | | | | | [address] | | | | | | | | +--------+ + + + + | 08/19/ | Appointment | Infusion Therapy | Elmer Silva | | | 2019 | | | E, MD [address] | | | | | | [place] | | | | | | [address] | | | | | | | [...] [place] | | | | | | [address] | | | | | | | [...] [place] | | | | | | [address] | | | | | | | [...] [place] | | | | | | [address] | | | | | | | [...]
--- OUTSIDE RECORDS SUMMARY | ~2020-08-08 | XMS | Encounter Summary ---
Demographics + + + | Address | [address] | | | [place] [address] | + + + | Home Phone [...] Team Providers + +------+ + | Care Plasterer Tender Name | Role | Phone | [...] | | | [address] [place] | [place] [address] | | | | | [place] [address] | | | | | | [phone] | | | +--------+ + + + [...] [place] | | | | | | [address] | | | | | | | | +--------+ + + + + | 08/12/ | Hospital | Infusion Therapy | Elmer Silva | | | 2019 | Encounter | | MD [address] | | | | | | [place] | | | | | | [address] | | | | | | | | +--------+ + + + + | 08/12/ | Appointment | Oncology | Lionel Benson | | | 2019 | | | Ze Unger [address] | | | | | | [address] [place] | | | | | | [place] [address] | | | | | | [phone] | | | | | | | | +--------+ + + + + | 08/19/ | Appointment | Oncology | Elmer Silva | | | 2019 | | | Trip, [address] | | | | | | ST [place] | | | | | | [address] | | | | | | | | +--------+ + + + + | 08/19/ | Appointment | Infusion Therapy | Elmer Silva | | | 2019 | | | E, [address] | | | | | | ST [place], [place] | | | | | | [address] | | | | | | | [...] [place] | | | | | | [address] | | | | | | | [...] [place] | | | | | | [address] | | | | | | | [...]
--- OUTSIDE RECORDS SUMMARY | ~2020-08-08 | XMS | Encounter Summary ---
Demographics + + + | Address | [address] | | | [place] [address] | + + + | Home Phone | | + + + | Preferred Language | Unknown | + + + | Marital Status | Single | + + + | Mu-Ism Affiliation | Unknown | + + + [...] Team Providers + +------+ + | Care Proof Operator Name | Role | Phone | [...] | | Non-small | [place], | [address] | | | | | cell cancer | [place] | [place], | | | | | of right | [place] | [place] [address] | | | | | lung (HCC) | [address] | Phone: | | | | | Procedures | [place] | [phone] | | | | | CT Chest w | [place] | Fax: | | | | | Contrast | [address] | [phone] | | | | | | Phone: | | | | | | | [phone] | | | | | | | Fax: | | | | | | | [phone] | | +--------+--------+ + + + + Reason for Visit + + + | Reason | Comments | + + + | Follow-up | | + + + Encounter Details +--------+ + + + + | Date | Type | Department | Care Team | Description | +--------+ + + + + | 12/09/ | Hospital | [facility] | [place] | Non-small cell | | 2018 | Encounter | MED CTR MEDICAL | MD [address] | cancer of right lung | | | | ONCOLOGY CLINIC [address] | [address] [place] | (HCC) (Primary Dx); | | | | [address] | [place] [address] | Thyroid cancer | | | | [place] [address] | [phone] | (HCC) | | | | [phone] | | | +--------+ + + + [...] [facility] Pt. Name/Age/: Olena Rider 57 y.o. 1960 Med. Record Number: [id number] Date of admission: 12/09/2017 Assessment and plan: [...] last month . 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 > 50% AT BEDSIDE, WITH FAMILY/PATIENT IN CARE AND MACHINE CLOTHING MAN ON UNIT AND CO ORDINATION OF CARE Portions of this chart may have been created with Listen Edition voice recognition software. Occasi onal wrong-word or [...] [place] | | | | | | [address] | | | | | | | | +--------+ + + + + | 08/12/ | Hospital | Infusion Therapy | Elmer Silva | | | 2019 | Encounter | | E, [address] | | | | | | ST [place] | | | | | | [address] | | | | | | | | +--------+ + + + + | 08/12/ | Appointment | Oncology | Lionel Benson | | | 2019 | | | Ze Un[address] | | | | | | [address] [place] | | | | | | [place] [address] | | | | | | [phone] | | | | | | | | +--------+ + + + + | 10/19/ | Appointment | Oncology | Elmer Silva | | | 2019 | | | E, [address] | | | | | | [place], [place] | | | | | | [address] | | | | | | | | +--------+ + + + + | 08/19/ | Appointment | Infusion Therapy | Elmer Silva | | | 2019 | | | E, [address] | | | | | | ST [place], [place] | | | | | | [address] | | | | | | | [...] [place] | | | | | | [address] | | | | | | | [...] [place] | | | | | | [address] | | | | | | | [...] [place] | | | | | | [address] | | | | | | | [...] | | | | [place] | | | | | | [address] | | | | | | | [...] the | | | | PST | ([facility]) | results section. | + [...] the | | | | PST | ([facility]) | results section. | + +--------+ + + + | COMPREHENSIVE | STAT | 12/09/2017 | Non-small cell | Results for this | | METABOLIC PANEL | | 10:12 AM | cancer of right lung | procedure are in the | | | | PST | ([facility]) | results section. | + [...] a third generation TSH | uIU/mL | [facility] | | | | test. [...] + | [facility] | [address] | [place] | [phone] | | [facility] | | [address] | | | - LABORATORY | | [...] Performed at: 01 - [facility] [address], | REFERENCE LAB | | [place], [place] [address] Cut Off Saw Grader: Jesus Chaves MD, | JAMEE GRIFFIN | | Phone: [phone] | | + + + + + + + + | Performing | Address | City/State/Zipcode | Phone Number | | Organization | | | | + + + + + | REFERENCE LAB | [address] | [place], [place] | [phone] | | [facility] | [facility] | [address] | | + + + + + [...] + | [facility] | [address] | [place] | [phone] | | [facility] | | [address] | | | - LABORATORY | | [...] mL/min/1.73m2 | Maximiliano [facility] | | | [place] | RATE,ESTIMATED | | MEDICAL | | | | mL/min/1.10q7Ooww than | | CENTER - | | [...] [facility] | | | | | | Maximiliano [...] + | [facility] | [address] | [place] | [phone] | | [facility] | | [address] | | | - LABORATORY | | [...] | | | Lymphocytes | | | [facility] | | [...] | Monocytes | | K/uL | [facility] | [...] [address] | [place] | [phone] | | [facility] | | [address] | | | - LABORATORY | | | | + + + + + documented in this encounter Visit Diagnoses + + | Diagnosis | + + | Non-small cell cancer of right lung (HCC) - Primary | + + | Thyroid cancer (HCC) Malignant neoplasm of thyroid gland | + + documented in this encounter
--- OUTSIDE RECORDS SUMMARY | ~2020-08-08 | XMS | Encounter Summary ---
Demographics + + + | Address | [address] | | | [place] [address] | + + + | Home Phone [...] Team Providers + +------+ + | Care Feeder Worker Power Unit Operator Name | Role | Phone | [...] | | | (ICD-9-CM) - | [address] [place] | | | | | Non-small | [place], | [place], [place] | | | | | cell cancer | [place] | [address] Phone: | | | | | of right | [address] | [phone] | | | | | lung | Phone: | Fax: | | | | | Procedures | [phone] | [phone] | | | | | [address] | Fax: | | | | | | | [phone] | | +--------+--------+ + + + + Encounter Details +--------+ + + + + | Date | Type | Department | Care Team | Description | +--------+ + + + + | 04/10/ | Hospital | [facility] | Elmer Silva | Non-small cell | | 2020 | Encounter | [facility] | MD Trip [address] | cancer of right lung | | | | ONCOLOGY CLINIC [address] | [place], [place] | ([facility]); Papillary | | | | [facility] | [address] | thyroid carcinoma | | | | [place] [address] | | (HCC) | | | | [phone] | | | +--------+ + + + [...] + + + | Blood Pressure | 132/72 | 04/10/2020 1:20 PM | | | | | PDT | | + + + + + | Pulse | 104 | 04/10/2020 1:20 PM | | | | | PDT | | + + + + + | Temperature | 36.9 C (98.4 F) | 04/10/2020 1:20 PM | | | | | PDT | | + + + + + | Respiratory Rate | 16 | 04/10/2020 1:20 PM | | | | | PDT | | + + + + + | Oxygen Saturation | 97% | 04/10/2020 1:20 PM | | | | | PDT | | + + + + + | Inhaled Oxygen | - | - | | | Concentration | | | | + + + + + | Weight | 83.7 kg (184 lb 8.4 | 04/10/2020 1:20 PM | | | | oz) | PDT | | + + + + + | Height | - | - | | + + + + + | Body Mass Index | 27.65 | 02/27/2020 6:30 AM | | | [...] encounter Progress Notes Elmer Silva MD - 04/10/2020 1:40 PM PDTMedical Oncology Follow-Up Note Reason For Visit Current Diagnosis and Disease State: She has 3 malignancies, but only one is clinically sig nificant at present, namely metastatic adenocarcinoma of the lung, 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 Current Therapy: None Specific reason for appointment: Discuss future management now that brain lesion is address ed. 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 Current Performance Status: 2 Systematic Review of Systems Constitutional: Notes issues w/ short-term memory and word finding. Most noticeable over e past week. Notes not being able to work since most recent diagnosis. Denies high fevers, s haking chills, anorexia, vomiting, or night sweats. Appetite without changes. Reports poor a ppetite, ongoing nausea. Managing w/ Zofran 8mg, usually helpful. Ear, Nose, Mouth, Throat: Reports "ear pressure" bilaterally. Denies odynophagia, dysphagia , or tinnitus. Cardiovascular: Denies shortness of breath, dyspnea on exertion, chest pain, palpitations o r orthopnea. Respiratory: Denies cough, hemoptysis, or sputum production. Gastrointestinal: Denies abdominal pain, constipation, diarrhea, melena, or bright red bloo d per rectum. Genitourinary: Denies hematuria or dysuria. Musculoskeletal:Reports generalized joint pain. Neurologic: Reports ongoing neuropathy in hands and feet, unchanged. Reports ongoing foggy vision in L eye. Reports ongoing headaches. Endocrine: Denies peripheral edema or heat/cold intolerance. Hematologic: Denies spontaneous bruising or bleeding. Integumentary: Denies rash, wounds or other skin concerns. Pain:Reports generalized joint pain. Rates at 4/10 today, attributes worsening joint pain to exemestane use. Reports ongoing headaches. Rates at 5/10 today. Managing w/ ibuprofen an d tramadol with moderate relief Cancer History LUNG CANCER Presentation: Small RLL lesion found incidentally in [...] alteration in genes commonly associated w ith emergency medical technician/driver mutations in lung cancer. Does have STK11 [...] 27 Gy in 3 Fx, completed 03/26/20 Important Co-morbidity Hx of low-risk Breast Cancer, now s/p Lumpectomy for pT1, N0 luminal A disease. She is on e xemestane as adjuvant hormonal therapy, but this is likely overkill Depression/Anxiety, managed with Cymbalta and Xanax Thyroid Cancer, s/p radioiodine ablation Iatrogenic hypothyroidism, s/p radioiodine ablation for thyroid cancer. Currently on Synthr oid 125 mcg/day, with normal TSH in December 2019. Physical Exam Appearance: Appears well. No loss of muscle mass. Head & Neck: Cranial Nerves: Grossly intact Oral cavity: No thrush Extremities: No LE edema, no nail changes Notable Current Lab and Imaging Recent PET (02/06/20) did not suggest active disease outside head. Impression 1. 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 2. 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 Plan 1. Although there are experimental approaches to systemic therapy in this setting, it is st ill standard to observe. She is most comfortable waiting to see if there are other sites of disease. 2. Surveillance CT C/A/P in May ([address]/PET). Eventually we will get on same sc hedule with her MRI brain surveillance ebastian Feliciano RN - 04/10/2020 1:40 PM PDTREVIEW OF SYSTEMS Constitutional: Notes issues w/ short-term memory and word finding. Most noticeable over e past week. Notes not being able to work since most recent diagnosis. Denies high fevers, s haking chills, anorexia, vomiting, or night sweats. Appetite without changes. Reports poor a ppetite, ongoing nausea. Managing w/ Zofran 8mg, usually helpful. Ear, Nose, Mouth, Throat: Reports "ear pressure" bilaterally. Denies odynophagia, dysphagia , or tinnitus. Cardiovascular: Denies shortness of breath, dyspnea on exertion, chest pain, palpitations o r orthopnea. Respiratory: Denies cough, hemoptysis, or sputum production. Gastrointestinal: Denies abdominal pain, constipation, diarrhea, melena, or bright red bloo d per rectum. Genitourinary: Denies hematuria or dysuria. Musculoskeletal: Reports generalized joint pain. Neurologic: Reports ongoing neuropathy in hands and feet, unchanged. Reports ongoing foggy vision in L eye. Reports ongoing headaches. Endocrine: Denies peripheral edema or heat/cold intolerance. Hematologic: Denies spontaneous bruising or bleeding. Integumentary: Denies rash, wounds or other skin concerns. Pain: Reports generalized joint pain. Rates at /10 today, attributes worsening joint pain to exemestane use. Reports ongoing headaches. Rates at 03/10 today. Managing w/ ibuprofen and tramadol with moderate relief Note: here for follow-up and to review test results w/ Dr Shira Hyatt has questions about work limitations and ongoing symptoms/cancers and treatment My chart: Active documented in this encounter [...] [place] | | | | | | [address] | | | | | | | | +--------+ + + + + | 08/12/ | Hospital | Infusion Therapy | Elmer Silva | | 2019 | Encounter | | MD Lazaro Dominique | | | | | | [place] | | | | | | [address] | | | | | | | | +--------+ + + + + | 08/12/ | Appointment | Oncology | Lionel Benson | | | 2019 | | | J, PharmCorky [address] | | | | | | [address] [place] | | | | | | [place] [address] | | | | | | [phone] | | | | | | | | +--------+ + + + + | 08/19/ | Appointment | Oncology | Elmer Silva | | | 2019 | | | E, [address] | | | | | | [place] | | | | | | [address] | | | | | | | | +--------+ + + + + | 08/19/ | Appointment | Infusion Therapy | Elmer Silva | | | 2019 | | | E, [address] | | | | | | [place] | | | | | | [address] | | | | | | | [...] [place] | | | | | | [address] | | | | | | | [...] [place] | | | | | | [address] | | | | | | | [...] [place] | | | | | | [address] | | | | | | | [...] [place] | | | | | | [address] | | | | | | | | +--------+ + + + + documented as of this encounter Visit Diagnoses + + | Diagnosis | + + | Non-small cell cancer of right lung (HCC) | + + | Papillary thyroid carcinoma (HCC) Malignant neoplasm of thyroid gland | + + documented in this encounter
--- OUTSIDE RECORDS SUMMARY | ~2020-08-08 | XMS | Encounter Summary ---
Demographics + + + | Address | [address] | | | [place] [address] | + + + | Home Phone [...] Team Providers + +------+ + | Care Yard Brakeman Name | Role | Phone | + [...] | | | | | [place] [address] | | | | | | [phone] | | | +--------+ + + + [...] yet. 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 to be able to conserve energy for [...] | | | | [place] | | | | | | [address] | | | | | | | | +--------+ + + + + | 08/12/ | Hospital | Infusion Therapy | Elmer Silva | | | 2019 | Encounter | | E, [address] | | | | | | [place] | | | | | | [address] | | | | | | | | +--------+ + + + + | 08/12/ | Appointment | Oncology | Lionel Benson | | | 2019 | | | J, PharmCorky [address] | | | | | | [address] [place] | | | | | | [place] [address] | | | | | | [phone] | | | | | | | | +--------+ + + + + | 08/19/ | Appointment | Oncology | Elmer Silva | | | 2019 | | | E, [address] | | | | | | [place] | | | | | | [address] | | | | | | | | +--------+ + + + + | 08/19/ | Appointment | Infusion Therapy | Elmer Silva | | | 2019 | | | MD Lazaro Dominique [address] | | | | | | [place] | | | | | | [address] | | | | | | | [...] [place] | | | | | | [address] | | | | | | | [...] [place] | | | | | | [address] | | | | | | | [...] [place] | | | | | | [address] | | | | | | | [...] [place] | | | | | | [address] | | | | | | | | +--------+ + + + + documented as of this encounter Visit Diagnoses Not on filedocumented in this encounter
--- OUTSIDE RECORDS SUMMARY | ~2020-08-08 | XMS | Encounter Summary ---
Demographics + + + | Address | [address] | | | [place] [address] | + + + | Home Phone [...] Team Providers + +------+ + | Care Emergency Room Physician Assistant Name | Role | Phone | + +------+ + | Zuleyka Martínez | PCP | | + +------+ + Encounter Details +--------+ + + + + | Date | Type | Department | Care Team | Description | +--------+ + + + + | 09/22/ | Hospital | [facility] | Susie Montemayor | Abnormal stress ECG | | 2016 | Encounter | [facility] | MD Jared [address] | with treadmill | | | | ONCOLOGY CLINIC [address] | [place], [place] | (Primary Dx); | | | | [address] [place] | [address] | Thyroid cancer | | | | [place] [address] | | (HCC); Precordial | | | | [phone] | | pain | +--------+ + + [...] [place] | | | | | | [address] | | | | | | | | +--------+ + + + + | 08/12/ | Hospital | Infusion Therapy | Elmer Silva | | | 2019 | Encounter | | MD Lazaro Dominique [address] | | | | | | [place] | | | | | | [address] | | | | | | | | +--------+ + + + + | 08/12/ | Appointment | Oncology | Lionel Benson | | | 2019 | | | JZe [address] | | | | | | [address] | | | | | | [place] [address] | | | | | | [phone] | | | | | | | | +--------+ + + + + | 08/19/ | Appointment | Oncology | Elmer Silva | | | 2019 | | | E, [address] | | | | | | [place] | | | | | | [address] | | | | | | | | +--------+ + + + + | 08/19/ | Appointment | Infusion Therapy | Elmer Silva | | | 2019 | | | MD Lazaro Dominique [address] | | | | | | [place] | | | | | | [address] | | | | | | | [...] [place] | | | | | | [address] | | | | | | | [...] [place] | | | | | | [address] | | | | | | | [...] [place] | | | | | | [address] | | | | | | | [...] [place] | | | | | | [address] | | | | | | | [...] + | [address] | [address] | [place] | [phone] | | [facility] | | [address] | | | - LABORATORY | | [...] [place] | | | | | | [address] | | | | + + + + + + | Thyroglobul | 0.5 (L)Comment: The | 1.2 - 35.0 | REFERENCE | | | in | Citlalli Ankur | ng/mL | LAB [facility] | | | | Immunoenzymatic assay [...] [place] | | | | | | [address] | | | | + + + + + + + + | Specimen | + + | Blood specimen | | (specimen) | + + + + + + + | Performing | Address | City/State/Zipcode | Phone Number | | Organization | | | | + + + + + | [facility] | [address] | [place] [address] | [phone] | + + + + + documented [...]
--- OUTSIDE RECORDS SUMMARY | ~2020-08-08 | XMS | Encounter Summary ---
Demographics + + + | Address | [address] | | | [place] [address] | + + + | Home Phone [...] Team Providers + +------+ + | Care Stone Derrickman And Rigger Name | Role | Phone | + [...] + + | 04/23/ | Hospital | [facility] | Milton Salazar | Non-small cell | | 2017 | Encounter | [facility] | MD Bebeto [address] | cancer of right lung | | | | ONCOLOGY CLINIC [address] | [address] [place] | (HCC) (Primary Dx); | | | | [address] [place] | [place] [address] | Malignant neoplasm | | | | [place] [address] | [phone] | of thyroid gland | | | | [phone] | | (HCC); Pneumothorax | | | [...] erent from the original. Hem-Onc Progress Note [facility] Pt. Name/Age/: Olena Rider 56 y.o. 1960 Med. Record Number: [id number] Date of admission: 04/23/2017 Assessment and plan: [...] over the weekend aggravating renal clearance of squaxin chemotherapy. Additional recom mendation for continued indefinite potassium replacement as renal potassium wasting can be a long-term toxicity from treatment. Ten-day trae check follow-up Subjective: The patient chart and medications were reviewed in detail and the patient was seen and exam inediamond. Olena Rider is a 56 y.o. 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 PSH: [...] Electronically signed by: Milton Salazar, 04/23/2017 9:56 [facility] TIME SPENT 20 MIN. > 50% AT BEDSIDE, WITH FAMILY/PATIENT IN CARE AND FORM PRESSER ON UNIT AND CO ORDINATION OF CARE Portions of this chart may have been created with [employer] voice recognition software. Occasi onal wrong-word or sound-alike substitutions may have occurred due to the inherent cervantes itations of voice recognition software. Please read the chart carefully and recognize, using context, where these substitutions have occurred. Amanda Wagner, [facility] - 04/23/2017 9:22 AM PDTREVIEW O F [...] [place] | | | | | | [id number] | | | | | | | | +--------+ + + + + | 08/12/ | Hospital | Infusion Therapy | Elmer Silva | | 2019 | Encounter | | MD Lazaro Dominique | | | | | | [place] | | | | | | [address] | | | | | | | | +--------+ + + + + | 08/12/ | Appointment | Oncology | Lionel Benson | | | 2019 | | | J, PharmDiamond [address] | | | | | | [address] [place] | | | | | | [place] [address] | | | | | | [phone] | | | | | | | | +--------+ + + + + | 08/19/ | Appointment | Oncology | Elmer Silva | | | 2019 | | | E, [address] | | | | | | [place] | | | | | | [address] | | | | | | | | +--------+ + + + + | 08/19/ | Appointment | Infusion Therapy | Elmer Silva | | | 2019 | | | E, [address] | | | | | | ST [place] | | | | | | [address] | | | | | | | [...] | 09/09/ | Office | Oncology | [place], Elmer | | | 2019 | Visit | | Trip, MD Lazaro RAYA | | | | | | [place] | | | | | | [address] | | | | | | | [...] [place] | | | | | | [address] | | | | | | | [...] [place] | | | | | | [address] | | | | | | | [...] [place] | | | | | | [address] | | | | | | | [...] | | | | | g/dL | [facility] | | | | [...] [facility] | | | Basophils | | K/Jay | [facility] | | | | [...] [address] | [place] | [phone] | | [facility] | | [address] | | | - LABORATORY | | [...] | 1.12 | 0.60 - 1.30 | [facility] | | | | | mg/dL | [facility] | | | | | | MEDICAL | | | | | | CENTER - | | | | | | LABORATORY | | + + + + + + | eGFR, | 51 (L)Comment: | >=60 | [facility] | | | non- | GLOMERULAR FILTRATION | mL/min/1.73m2 | [facility] | | | Monegasque | RATE,ESTIMATED | | MEDICAL | | | | mL/min/1.23e7Azni than | | CENTER - | | [...] YULIA BONNER. | [address] | [place], [place] | [phone] | | [facility] | | [address] | | | - LABORATORY | | [...]
--- OUTSIDE RECORDS SUMMARY | ~2020-08-08 | XMS | Encounter Summary ---
Demographics + + + | Address | [address] | | | [place] [address] | + + + | Home Phone [...] Team Providers + +------+ + | Care Microfilmer Name | Role | Phone | + [...] | | | [address] [place] | [place] [address] | | | | | [place] [address] | | | | | | [phone] | | | +--------+ + + + [...] [place] | | | | | | [address] | | | | | | | | +--------+ + + + + | 08/12/ | Hospital | Infusion Therapy | Elmer Silva | | | 2019 | Encounter | | MD Lazaro Dominique | | | | | | [place] | | | | | | [address] | | | | | | | | +--------+ + + + + | 08/12/ | Appointment | Oncology | Lionel Benson | | | 2019 | | | Ze Unger [address] | | | | | | [address] [place] | | | | | | [place] [address] | | | | | | [phone] | | | | | | | | +--------+ + + + + | 08/19/ | Appointment | Oncology | Elmer Silva | | | 2019 | | | Trip, [address] | | | | | | [place] | | | | | | [address] | | | | | | | | +--------+ + + + + | 08/19/ | Appointment | Infusion Therapy | Elmer Silva | | | 2019 | | | E, [address] | | | | | | ST [place], [place] | | | | | | [address] | | | | | | | [...] [place] | | | | | | [address] | | | | | | | [...] [place] | | | | | | [address] | | | | | | | [...] [place] | | | | | | [address] | | | | | | | | +--------+ + + + + | 09/23/ | Appointment | Infusion Therapy | | | | 2019 | | | | | +--------+ + + + + | 11/22/ | Appointment | Radiation Oncology | Susie Montemayor | | | 2020 | | | MD Lazaro oCleman | | | | | | [place] | | | | | | [address] | | | | | | | [...]
--- OUTSIDE RECORDS SUMMARY | ~2020-08-08 | XMS | Encounter Summary ---
Demographics + + + | Address | [address] | | | [place] [address] | + + + | Home Phone [...] Team Providers + +------+ + | Care Building Construction Estimator Name | Role | Phone [...] | MD [address] | [address] | | | | | Procedures | [address] | [place], | | | | | [place] | [place], | [place] | | | | | Radiopharm | [place] [address] | [address] | | | | | Therapy Oral | Phone: | Phone: | | | | | | [phone] | [phone] | | | | | Administrati | Fax: | Fax: | | | | | o [place] [address] | [phone] | [phone] | | | | | [facility], [...] (HCC) | [address] | [address] | | | | | Procedures | [address] | [place], | | | | | [place] | [place], | [place] | | | | | Radiopharm | [place] [address] | [address] | | | | | Therapy Oral | Phone: | Phone: | | | | | | [phone] | [phone] | | | | | Administrati | Fax: | Fax: | | | | | o [place] [address] | [phone] | [phone] | | | | | I[facility], | | | | | | | RX | | | +--------+--------+ + + + + Encounter Details +--------+ + + + + | Date | Type | Department | Care Team | Description | +--------+ + + + + | 10/14/ | Hospital | [facility] | Susie Montemayor | Thyroid cancer (HCC) | | 2016 | Encounter | [facility] | MD Jared [address] | | | | | MEDICINE [address] | [place], [place] | | | | | [place], | [address] | | | | | [place] [address] | | | | | | [phone] | | | +--------+ + + + [...] | | | | | | [facility] [place] | | | | | | [address] | | | | | | | | +--------+ + + + + | 08/12/ | Hospital | Infusion Therapy | Elmer Silva | | 2019 | Encounter | | E, MD [address] | | | | | | [place] | | | | | | [address] | | | | | | | | +--------+ + + + + | 08/12/ | Appointment | Oncology | Lionel Benson | | | 2019 | | | J, PharmD [address] | | | | | | [address] [place] | | | | | | [place] [address] | | | | | | [phone] | | | | | | | | +--------+ + + + + | 08/19/ | Appointment | Oncology | Elmer Silva | | | 2019 | | | E, [address] | | | | | | [place] | | | | | | [address] | | | | | | | | +--------+ + + + + | 08/19/ | Appointment | Infusion Therapy | Elmer Silva | | | 2019 | | | E, MD [address] | | | | | | [place] | | | | | | [address] | | | | | | | [...] [place] | | | | | | [address] | | | | | | | [...] [place] | | | | | | [address] | | | | | | | [...] [place] | | | | | | [address] | | | | | | | [...] [place] | | | | | | [address] | | | | | | | [...]
--- OUTSIDE RECORDS SUMMARY | ~2020-08-08 | XMS | Encounter Summary ---
Demographics + + + | Address | [address] | | | [place] [address] | + + + | Home Phone [...] Team Providers + +------+ + | Care Fire Coordinator Name | Role | Phone | [...] | Malignant | Salazar, | [address] | | | | | neoplasm of | [place] | [place], | | | | | lower lobe | MD Bebeto | [place] | | | | | of right | [address] | [address] | | | | | lung (HCC) | [place] | Phone: | | | | | Procedures | [place], [place] | [phone] | | | | | MRI Brain w | [address] | Fax: | | | | | wo Contrast | Phone: | [phone] | | | | | | [phone] | | | | | | | Fax: | | | | | | | [phone] | | +--------+--------+ + + + + [...] | | | (ICD-9-CM) - | [address] | [place] | | | | | Non-small | [place], | [place], [place] | | | | | cell cancer | [place] | [address] Phone: | | | | | of right | [address] | [phone] | | | | | lung | Phone: | Fax: | | | | | Procedures | [phone] | [phone] | | | | | [address] | Fax: | | | | | | | [phone] | | +--------+--------+ + + + + Encounter Details +--------+ + + + + | Date | Type | Department | Care Team | Description | +--------+ + + + + | 01/07/ | Hospital | [facility] | [place] Salazar | Malignant neoplasm | | 2020 | Encounter | MED CTR MEDICAL | MD Bebeto [address] | of lower lobe of | | | | ONCOLOGY CLINIC [address] | [address] [place] | right lung (HCC) | | | | [address] [place] | [place] [address] | (Primary Dx); | | | | [facility] [place] [address] | [phone] | Non-small cell | | | | [phone] | | cancer of right lung | | | | | | (HCC); Primary | | | | | | malignant neoplasm | | | | | | of female breast | | | | | | (HCC); Thyroid | | | | | | cancer (HCC) | +--------+ + + + + [...] + + + | Blood Pressure | 135/77 | 01/08/2020 12:25 PM | | | | | PDT | | + + + + + | Pulse | 93 | 01/08/2020 12:25 PM | | | | | PDT | | + + + + + | Temperature | 36.6 C (97.9 F) | 01/08/2020 12:25 PM | | | | | PDT | | + + + + + | Respiratory Rate | 18 | 01/08/2020 12:25 PM | | | | | PDT | | + + + + + | Oxygen Saturation | 100% | 01/08/2020 12:25 PM | | | | | PDT | | + + + + + | Inhaled Oxygen | - | - | | | Concentration | | | | + + + + + | Weight | 83.4 kg (183 lb 13.8 | 01/08/2020 12:25 PM | | | | oz) | PDT | | + + + + + | Height | - | - | | + + + + + | Body Mass Index | 27.55 | 01/04/2020 1:57 PM | | | [...] documented as of this encounter Progress Notes Bebeto Diaz RN - 01/08/2020 12:40 PM PDTREVIEW OF SYSTEMS Constitutional: Pt reports moderate fatigue. Pt reports daily nausea and emesis x1 in the l ast two weeks. Denies high fevers, shaking chills, anorexia, weight loss, or night sweats. Appetite without changes. Ear, Nose, Mouth, Throat: Pt reports continued dysphagia though states "I had it checked ou t and everyone says it is ok. I just eat less". Denies odynophagia or tinnitus. Cardiovascular: Denies shortness of breath, dyspnea on exertion, chest pain, palpitations o r orthopnea. Respiratory: Denies cough, hemoptysis, or sputum production. Gastrointestinal: Denies abdominal pain, constipation, diarrhea, melena, or bright red bloo d per rectum. Genitourinary: Denies hematuria or dysuria. Musculoskeletal: Pt reports generalized joint pain - ongoing. Neurologic: Pt reports recently worsening headaches - variable, daily. Denies visual change s or numbness/tingling of the extremities. Endocrine: Denies peripheral edema or heat/cold intolerance. Hematologic: Denies spontaneous bruising or bleeding. Integumentary: Denies rash, wounds or other skin concerns. Pain: Pt reports pain of 5/10 currently ROS otherwise negative Note: Pt here for follow-up My chart: Declined unningMilton esparza MD - 01/08/2020 12:40 PM PDTFormatting of this note might be different from the origin al. Hem-Onc Progress Note [facility] Pt. Name/Age/: Olena Rider 59 y.o. 1960 Med. Record Number: [id number] Date of admission: 01/08/2020 Assessment and plan: 1. Non-small cell lung [...] grade pT1c pN 0(sn) ER+(99% , strong), [place]+(60%, strong), Her2 non-amplified (FISH ratio 1.06) Status post left lumpectomy, sentinel lymph node biopsy, Dr. Luis Felipe Pugh, July, Counseling session this afternoon with patient, earlier discussion with patient's [facility] team and then recommendation to further evaluate patient's recently identified periventri cular lesion seen on CT scan. We are going to go ahead with MRI of the brain with and witho ut contrast to further interrogate. We discussed the on known nature of the lesion but have urged patient to consider the possibility that this lesion may have a benign etiology as pavan plummer has no signs or symptoms referable to this lesion. This lesion for example not connec kelley to patient's periorbital cellulitis. To plans for PET CT restaging which has been ordered by patient's primary care physician. Patient had not been feeling good and has lost several pounds of weight in the run up to adm ission earlier last week prompting recommendation for PET CT restaging. At this time believ e this evaluation can be postponed. Subjective: The patient chart and medications were reviewed in detail and the patient was seen and exam ined. Olena Rider is a 59 y.o. female who returns today on an add-on basis to expedite an evaluation of a new lesion identified in the anterior horn of the left lateral ventricle. Patient recently discharged from short-term [facility] admission week following development of periorbital cellulitis. Patient ultimately responding to a program of parenteral antibiotic therapy and today describes left soft tissues surrounding the left eye is much improved. The initial lesion probably represented a sty involving the upper lip read in the left eye. Antibiotic therapy now continuing as both oral as well as t opical therapy. It was during that evaluation that a CT scan of the orbits was obtained and this study confirmed the presence of soft tissue inflammation in the periorbital region but also identified an area of increase in radiographic density involving the frontal lobe and the anterior horn of the right lateral ventricle. The lesion is concerning for an area of i nfiltration either within the ependyma or the brain parenchyma. PSH: Reviewed, no changes to admission H&P. Review of Systems: Constitutional: Pt reports moderate fatigue. Pt reports daily nausea and emesis x1 in the l ast two weeks. Denies high fevers, shaking chills, anorexia, weight loss, or night sweats. Appetite without changes. Ear, Nose, Mouth, Throat: Pt reports continued dysphagia though states "I had it checked ou t and everyone says it is ok. I just eat less". Denies odynophagia or tinnitus. Cardiovascular: Denies shortness of breath, dyspnea on exertion, chest pain, palpitations o r orthopnea. Respiratory: Denies cough, hemoptysis, or sputum production. Gastrointestinal: Denies abdominal pain, constipation, diarrhea, melena, or bright red bloo d per rectum. Genitourinary: Denies hematuria or dysuria. Musculoskeletal: Pt reports generalized joint pain - ongoing. Neurologic: Pt reports recently worsening headaches - variable, daily. Denies visual change s or numbness/tingling of the extremities. Endocrine: Denies peripheral edema or heat/cold intolerance. Hematologic: Denies spontaneous bruising or bleeding. Integumentary: Denies rash, wounds or other skin concerns. Pain: Pt reports pain of 5/10 currently Review of systems as above otherwise negative Scheduled Medications: Continuous Infusions: PRN Meds:. Allergy: Allergies Allergen Reactions Morphine Anaphylaxis and Other (See Comments) Morphine And Related Other (See Comments) "unknown reaction - trouble breathing after hysterectomy" Objectives: Temp: 36.6 C (97.9 F) BP: 135/77 Pulse: 93 Resp: 18 SpO2: 100 % on Min/Max Temp past 24 hours:Temp Av.6 C (97.9 F) Min: 36.6 C (97.9 F) Max: 3 6.6 C (97.9 F) No intake or output data in the 24 hours ending 01/08/20 1234 Wt. Admission: Weight: 83.4 kg (183 lb 13.8 oz) Wt. Current: Weight: 83.4 kg (183 lb 13 .8 oz) Physical Exam: Exam: General: The patient is alert and oriented. No acute distress. HEENT: Residual mild edema in the left periorbital region. Residual sty involving the upp er lid. Genitourinary: Deferred. Extremities: Nontender, no erythema, no [...] the Assessment and Plan. Recent Labs Lab 01/05/20 0439 01/04/20 1017 WBC 6.2 7.1 HGB 12.9 14.2 HCT 39.0 42.7 PLT 283 322 Recent Labs Lab 01/05/20 04301/04/20 1017 NA 139 139 K 4.0 4.2 CL 106 105 CO2 25 29 BUN 12 10 CREA 0.87 0.86 GLU 99 100 MG 1.7 -- CALCIUM 9.1 9.6 BILITOT -- 0.3 AST -- 15 ALT -- 9* ALKPHOS -- 88 ALBUMIN -- 4.[address] ORBITS 01/04/2020 10:52 AM CLINICAL [...] Godfrey MD Electronically signed: 01/04/2020 11:32 AM Electronically signed by: Milton Salazar MD, 01/08/2020 12:[address] [facility] TIME SPENT 25 MIN. > 50% AT BEDSIDE, WITH FAMILY/PATIENT IN CARE AND DURABLE MEDICAL EQUIPMENT REPAIRER ON UNIT AND CO ORDINATION OF CARE Portions of this chart may have been created with [employer] voice recognition software. Occasi onal wrong-word or [...] [address] | | | | | | [place] | | | | | | [address] | | | | | | | | +--------+ + + + + | 08/12/ | Hospital | Infusion Therapy | Elmer Silva | | | 2019 | Encounter | | MD Trip [address] | | | | | | [place] | | | | | | [address] | | | | | | | | +--------+ + + + + | 08/12/ | Appointment | Oncology | Lionel Benson | | | 2019 | | | Ze Unger [address] | | | | | | [address] [place] | | | | | | [place] [address] | | | | | | [phone] | | | | | | | | +--------+ + + + + | 08/19/ | Appointment | Oncology | Elmer Silva | | | 2019 | | | E, [address] | | | | | | [place], [place] | | | | | | [address] | | | | | | | | +--------+ + + + + | 08/19/ | Appointment | Infusion Therapy | Elmer Silva | | | 2019 | | | E, [address] | | | | | | [place] | | | | | | [address] | | | | | | | [...] Visit | | MD Lazaro Dominique [address] | | | | | | [place] [...] [place] | | | | | | [address] | | | | | | | [...] [place] | | | | | | [address] | | | | | | | | +--------+ + + + + | 09/23/ | Appointment | Infusion Therapy | | | | 2019 | | | | | +--------+ + + + + | 11/22/ Appointment | Radiation Oncology | Susie Montemayor | | | 2020 | | | MD Lazaro [address] | | | | | | [place], [place] | | | | | | [address] | | | | | | | [...] AM HISTORY: | [facility] | | Brain/CORN SHELLER OPERATOR neoplasm, staging COMPARISON: CT ORBIT 01/04/2020 | [...] CONTRAST dated | | 01/22/2020 7:35 AMHISTORY: Brain/CORN SHELLER OPERATOR neoplasm, stagingCOMPARISON: CT ORBIT | | 01/04/2020TECHNIQUE: [...] of lower lobe of right lung (HCC) - Primary | + + | Non-small cell cancer of right lung (HCC) | + + | Primary malignant neoplasm of female breast (HCC) | + + | Thyroid cancer (HCC) Malignant neoplasm of thyroid gland | + + documented in this encounter
--- OUTSIDE RECORDS SUMMARY | ~2020-08-08 | XMS | Encounter Summary ---
Demographics + + + | Address | [address] | | | [place] [address] | + + + | Home Phone [...] Team Providers + +------+ + | Care Regulatory Manager Name | Role | Phone | + +------+ + PCP | Unavailable | + +------+ + Encounter Details +--------+ + + + + | Date | Type | Department | Care Team | Description | +--------+ + + + + | 06/12/ | Hospital | [facility] | HunterSantosh Corky | | | 2000 | Encounter | MED CTR SLEEP | MD Stefanie [address] | | | | | [place] [address] [place] | | | | | [place], [place] | [place] [address] | | | | | [address] | [phone] | | | | | [phone] | | | +--------+ + + + [...] [place] | | | | | | [address] | | | | | | | | +--------+ + + + + | 08/12/ | Hospital | Infusion Therapy | Elmer Silva | | 2019 | Encounter | | MD Lazaro Dominique | | | | | | [place] | | | | | | [address] | | | | | | | | +--------+ + + + + | 08/12/ | Appointment | Oncology | Lionel Benson | | | 2019 | | | Ze Unger [address] | | | | | | [address] [place] | | | | | | [place] [address] | | | | | | [phone] | | | | | | | | +--------+ + + + + | 08/19/ | Appointment | Oncology | Elmer Silva | | 2019 | | | MD Trip [address] | | | | | | [place] | | | | | | [address] | | | | | | | | +--------+ + + + + | 08/19/ | Appointment | Infusion Therapy | Elmer Silva | | | 2019 | | | E, [address] | | | | | | [place], [place] | | | | | | [address] | | | | | | | [...] [place] | | | | | | [address] | | | | | | | [...] [place] | | | | | | [address] | | | | | | | [...] [place] | | | | | | [address] | | | | | | | [...] [place] | | | | | | [address] | | | | | | | | +--------+ + + + + documented as of this encounter Visit Diagnoses Not on filedocumented in this encounter"
--- OUTSIDE RECORDS SUMMARY | ~2020-08-08 | XMS | Encounter Summary ---
Demographics + + + | Address | [address] | | | [place] [address] | + + + | Home Phone [...] Providers + +------+ + | Care Ceramic Restorer Name | Role | Phone | + [...] | ONCOLOGY [address] | [address] [place] [facility] [place] | (HCC) (Primary Dx) | | | | [place], | [address] | | | | | [place] [address] | | | | | | [phone] | | | +--------+ + + + [...] [place] | | | | | | [address] | | | | | | | | +--------+ + + + + | 08/12/ | Hospital | Infusion Therapy | Elmer Silva | | | 2019 | Encounter | | E, [address] | | | | | | [place] | | | | | | [address] | | | | | | | | +--------+ + + + + | 08/12/ | Appointment | Oncology | Lionel Benson | | | 2019 | | | Ze Unger [address] | | | | | | [address] | | | | | | [place] [address] | | | | | | [phone] | | | | | | | | +--------+ + + + + | 08/19/ | Appointment | Oncology | Elmer Silva | | | 2019 | | | E, [address] | | | | | | [place] | | | | | | [address] | | | | | | | | +--------+ + + + + | 08/19/ | Appointment | Infusion Therapy | Elmer Silva | | | 2019 | | | E, [address] | | | | | | [place] | | | | | | [address] | | | | | | | [...] [place] | | | | | | [address] | | | | | | | [...] [place] | | | | | | [address] | | | | | | | [...] [place] | | | | | | [address] | | | | | | | [...] | | | | [place] | | | | | | [address] | | | | | | | [...] [place] | | | | | | [address] | | | | + + + + + + | Thyroglobul | 3.1Comment: [facility] | 1.2 - 35.0 | REFERENCE | | | in | [facility] | ng/mL | [facility] | [...] [place] | | | | | | [address] | | | | + + + + + + + + | Specimen | + + | Blood specimen | | (specimen) | + + + + + + + | Performing | Address | City/State/Zipcode | Phone Number | | Organization | | | | + + + + + | [facility] | [address] | [place] [address] | [phone] | + + + + + TSH [...] + + | Performing | Address | City/State/[facility] | Phone Number | | Organization | | | | + + + + + | [facility] | [address] | [place] | [phone] | | [facility] | | [address] | | | - LABORATORY | | [...] | | | in Ab | Performed: NAZ [address] | | LAB [facility] | | | | [address], [place] | | | | | | [address] | | | | + + + [...] [place] | | | | | | [address] | | | | + + + [...] [facility] | [address] | [place] [address] | [phone] | + + + + + TSH [...] + + + + + | [facility] | [address] | [place] | [phone] | | [facility] | | [address] | | | - LABORATORY | | | | + + + + + documented in this encounter Visit Diagnoses + + | Diagnosis | + + | Malignant neoplasm of thyroid gland (HCC) - Primary Malignant neoplasm of thyroid | | gland | + + documented in this encounter"
--- OUTSIDE RECORDS SUMMARY | ~2020-08-08 | XMS | Encounter Summary ---
Demographics + + + | Address | [address] | | | [place] [address] | + + + | Home Phone [...] Providers + +------+ + | Care Patient Transport Officer Name | Role | Phone | [...] CTR MEDICAL | MD Jared [address] | | | | | ONCOLOGY CLINIC [address] | [place], [place] | | | | | [facility] | [address] | | | | | [place] [address] | | | | | | [phone] | | | +--------+ + + + [...] Dr. Womack onnell request. Labs faxed to [facility] in [place] at [phone]-fax confirmed. Patient notified. elephone En counter - Dandre Gustafson - 06/29/2017 2:11 PM PDTDrMaximiliano Fried wanted Olena to have h er labs drawn in 6 weeks. Olena is due for the labs now and is wondering if the lab orde r could be faxed to [facility] in [place]. Thank you. documented in this encounter Plan of Treatment +--------+ + + + + | Date | Type | Specialty | Care Team | Description | +--------+ + + + + | 08/12/ | Appointment | Oncology | Elmer Silva | | | 2019 | | | MD Lazaro Dominique [address] | | | | | | [facility] [place] | | | | | | [address] | | | | | | | | +--------+ + + + + | 08/12/ | Hospital | Infusion Therapy | Elmer Silva | | | 2019 | Encounter | | E, [address] | | | | | | [place] | | | | | | [address] | | | | | | | | +--------+ + + + + | 08/12/ | Appointment | Oncology | Lionel Benson | | | 2019 | | | J, PharmD [address] | | | | | | [address] [place] | | | | | | [place] [address] | | | | | | [phone] | | | | | | | | +--------+ + + + + | 08/19/ | Appointment | Oncology | Elmer Sliva | | | 2019 | | | E, [address] | | | | | | [place] | | | | | | [address] | | | | | | | | +--------+ + + + + | 08/19/ | Appointment | Infusion Therapy | Elmer Silva | | | 2019 | | | MD Lazaro Dominique [address] | | | | | | ST [place] | | | | | | [address] | | | | | | | [...] [place] | | | | | | [address] | | | | | | | [...] [place] | | | | | | [address] | | | | | | | [...] [place] | | | | | | [address] | | | | | | | [...] [place] | | | | | | [address] | | | | | | | | +--------+ + + + + documented as of this encounter Visit Diagnoses Not on filedocumented in this encounter"
--- OUTSIDE RECORDS SUMMARY | ~2020-08-08 | XMS | Encounter Summary ---
Demographics + + + | Address | [address] | | | [place] [address] | + + + | Home Phone [...] Providers + +------+ + | Care Parts Sales Manager Name | Role | Phone [...] | MD [address] | [address] | | | | | Procedures | [address] | [place], | | | | | [place] Thyroid | [place], | [place] | | | | | Cancer | [place] [address] | [address] | | | | | Metastatic | Phone: | Phone: | | | | | Whole Body | [phone] | [phone] | | | | | | Fax: | Fax: | | | | | | [phone] | [phone] | +--------+--------+ + + + + Reason [...] (HCC) | [address] | | | | | Procedures | [address] | [place], | | | | | [place] Thyroid | [place], | [place] | | | | | Cancer | [place] [address] | [address] | | | | | Metastatic | Phone: | Phone: | | | | | Whole Body | [phone] | [phone] | | | | | | Fax: | Fax: | | | | | | [phone] | [phone] | +--------+--------+ + + + + Encounter Details +--------+ + + + + | Date | Type | Department | Care Team | Description | +--------+ + + + + | 10/21/ | Hospital | [facility] | Susie Montemayor | Thyroid cancer (HCC) | | 2016 | Encounter | MED CTR NUCLEAR | MD Jared [address] | | | | | MEDICINE [address] | [address] [place], [place] | | | | | [address] [place], | [address] | | | | | [place] [address] | | | | | | [phone] | | | +--------+ + + + [...] | | 2019 | | | EMD Lazaro | | | | | | [place] | | | | | | [address] | | | | | | | | +--------+ + + + + | 08/12/ | Hospital | Infusion Therapy | Elmer Silva | | | 2019 | Encounter | | MD Lazaro Dominique | | | | | | [place] | | | | | | [address] | | | | | | | | +--------+ + + + + | 08/12/ | Appointment | Oncology | Lionel Benson | | | 2019 | | | [address] | | | | | | [address] | | | | | | [place] [address] | | | | | | [phone] | | | | | | | | +--------+ + + + + | 08/19/ | Appointment | Oncology | Elmer Silva | | | 2019 | | | E, [address] | | | | | | [place] | | | | | | [address] | | | | | | | | +--------+ + + + + | 08/19/ | Appointment | Infusion Therapy | Elmer Silva | | | 2019 | | | E, [address] | | | | | | [place] | | | | | | [address] | | | | | | | [...] [place] | | | | | | [address] [...] [place] | | | | | | [address] | | | | | | | [...] [place] | | | | | | [address] | | | | | | | [...] [place] | | | | | | [address] | | | | | | | [...]
--- OUTSIDE RECORDS SUMMARY | ~2020-08-08 | XMS | Encounter Summary ---
Demographics + + + | Address | [address] | | | [place] [address] | + + + | Home Phone [...] Team Providers + +------+ + | Care College And Career Counselor Name | Role | Phone | [...] Lung nodule | Susie M, | [address] [place] | | | | | Procedures | MD [address] | [place], | | | | | CT Chest | [address] | [place] [address] | | | | | wo Contrast | [place], | Phone: | | | | | CT Chest w | [place] [address] | [phone] | | | | | Contrast | Phone: | Fax: | | | | | | [phone] | [phone] | | | | | | Fax: | | | | | | | [phone] | | +--------+--------+ + + + + Encounter Details +--------+ + + + + | Date | Type | Department | Care Team | Description | +--------+ + + + + | 09/23/ | Hospital | [facility] | Susie Montemayor | Lung nodule | | 2016 | Encounter | MED CTR CT [address] | M, [address] | | | | | [place], | [place] | | | | | [place] [address] | [address] | | | | | [phone] | | | +--------+ + + + [...] [place] | | | | | | [address] | | | | | | | | +--------+ + + + + | 08/12/ | Hospital | Infusion Therapy | Elmer Silva | | 2019 | Encounter | | MD Lazaro Dominique | | | | | | [place] | | | | | | [address] | | | | | | | | +--------+ + + + + | 08/12/ | Appointment | Oncology | Lionel Benson | | 2019 | | | J, PharmD [address] | | | | | | [address] [place] | | | | | | [place] [address] | | | | | | [phone] | | | | | | | | +--------+ + + + + | 08/19/ | Appointment | Oncology | Elmer Silva | | | 2019 | | | MD Trip [address] | | | | | | [place], [place] | | | | | | [address] | | | | | | | | +--------+ + + + + | 08/19/ | Appointment | Infusion Therapy | Elmer Silva | | | 2019 | | | E, [address] | | | | | | [place], [place] | | | | | | [address] | | | | | | | [...] [place] | | | | | | [address] | | | | | | | [...] [place] | | | | | | [address] | | | | | | | [...] [place] | | | | | | [address] | | | | | | | [...] [place] | | | | | | [address] | | | | | | | [...]
--- OUTSIDE RECORDS SUMMARY | ~2020-08-08 | XMS | Encounter Summary ---
Demographics + + + | Address | [address] | | | [place] [address] | + + + | Home Phone [...] Team Providers + +------+ + | Care Die Stamper Name | Role | Phone | + [...] + + | 11/04/ | Surgery | [facility] | Hugo Godfrey MD | DI: CT GUIDED CHEST | | 2017 | | MED CTR IR INTRA OP | [address] | TUBE PLACEMENT FOR | | | | [address] | [place] | PNEUMOTHORAX | | | | [place] | [address] | | | | | [address] | [phone] | | | | | [phone] | | | +--------+---------+ + + + [...] might be different fro m the original. [place] HOSPITALIST DISCHARGE SUMMARY Pt. Name/Age/: Smitha [...] signed by: Tien Angel MD, 11/06/2016 9:36 [facility] Reference. This is NOT part of [...] this chart may have been created with [employer] voice recognition software. Occasi onal wrong-word [...] sent through Care Everywhere.PNEUMOTHORAX (C OLLAPSED LUNG) (CROATIAN)documented in this encounter Medications at Time of [...] might be diff erent from the original. [facility] --[place], [place] General Surgery Team Hospital Day: 3 [...] by: Del Dsouza MD, 11/06/2016 8:58 [facility] Kerwin Jasso MD - 11/06/2016 7:51 AM PSTFormatting of this note might be different from the hector saavedra. [place] HOSPITALIST PROGRESS NOTE Patient: Smitha Rider : 1960: Age: 56 y.o. MedRec: [id number] PCP: Zuleyka Martínez Admission date: 11/04/2016 Hospital [...] for input(s): IRON, TIBC, PCTSAT, FERRITIN, TSH, [id number], FOLATE in the last 168 hours. Inflammatory [...] ABG No results for input(s): PHART, PO2ART, CDM0MNI, FQG9BHA, BEART, Y0PJKOCD in the last 168 h ours. No results for input(s): SPECSOURCE, PHPOCB, PCO2, PO2, HCO3, TCO2, BEART, NKWP2FYU in the last 168 hours. Drug of [...] Procedure Component Value Units Date/Time Culture, MRSA [[id number]] Collected: 11/04/16 1543 Order Status: Completed Lab Status: Final result [...] of this study were reported by the [facility] radiologist on November 05, 2016 at [...] meycritical meysign) Tien Angel MD 11/06/2016 7:51 [facility] Reference. This is NOT part of the [...] this chart may have been created with [employer] voice recognition software. Occasi onal wrong-word or sound-alike substitutions may have occurred due to the inherent cervantes itations of voice recognition software. Please read the chart carefully and recognize, using context, where these substitutions have occurred Del Montoya MD - 11/05/2016 6:31 PM PSTFormatting of this note might be different from the hector jackson [facility] --[place], [place] General Surgery Team Hospital Day: 2 [...] by: Del Dsouza MD, 11/05/2016 18:32 [facility] Kerwin Jasso MD - 11/05/2016 6:53 AM PSTFormatting of this note might be different from the hector jackson [facility] [place] HOSPITALIST PROGRESS NOTE Patient: Smitha Rider : 1960: Age: 56 y.o. MedRec: [id number] PCP: Zuleyka Martínez Admission date: 11/04/2016 Hospital [...] for input(s): IRON, TIBC, PCTSAT, FERRITIN, TSH, [id number], FOLATE in the last 168 hours. Inflammatory [...] ABG No results for input(s): PHART, PO2ART, GTT9XMW, TCA3ZCU, BEART, N6NJDVTI in the last 168 h ours. No results for input(s): SPECSOURCE, PHPOCB, PCO2, PO2, HCO3, TCO2, BEART, THLY6HSV in the last 168 hours. Drug of [...] Procedure Component Value Units Date/Time Culture, MRSA [[id number]] Collected: 11/04/16 1544 Order Status: Sent Lab [...] hours. Dictated and Signed by: MD Analilia [facility] signed: 11/04/2016 12:[address] Guided Biopsy [...] meycritical meysign) Tien Angel MD 11/05/2016 6:53 [facility] Reference. This is NOT part of the [...] this chart may have been created with [employer] voice recognition software. Occasi onal wrong-word or sound-alike substitutions may have occurred due to the inherent cervantes itations of voice recognition software. Please read the chart carefully and recognize, using context, where these substitutions have occurred documented in this en counter H&P Notes Tien Angel MD - 11/04/2016 2:34 PM PSTFormatting of this note might be different fro m the original. [place] HOSPITALIST HISTORY & PHYSICAL Patient: Smitha Rider : 1960: Age: 56 y.o. MedRec: [id number] PCP: Zuleyka Martínez Admission date: 11/04/2016 Hospital day #: Physician author: Tien Angel MD Today: 11/04/2016 CHIEF COMPLAINT: Chest pain due to pneumothorax caused by right lung nodule biopsy Dr Godfrey HISTORY OF PRESENT ILLNESS: This is a 56 y.o. female with a history of thyoid cancer Was in [facility] last June with CP with CT showing lung nodules had a PET scan in June at [facility] and ultimately had thyroid surgery in [place] and radioactive iodine 131 and then had [...] daughter Jennifer whom is MDM Tanya is TAX CONSULTANT PAST MEDICAL and SURGICAL HISTORY: Past Medical [...] for input(s): IRON, TIBC, PCTSAT, FERRITIN, TSH, RBCOOGLJ37, FOLATE in the last 168 hours. Inflammatory [...] ABG No results for input(s): PHART, PO2ART, VWV9PKN, PBD2KAG, BEART, G8DYDDFV in the last 168 h ours. No results for input(s): SPECSOURCE, PHPOCB, PCO2, PO2, HCO3, TCO2, BEART, CXCQ5XPY in the last 168 hours. Drug of [...] (dot meyaddendum tdnorefesh nownorefresh) (dot meytime meycritical) [facility] Documentation I expect this patient will be hospitalized for less than 2-midnights and expect the post-ho spital plan to be discharge to home or to an adult foster home. Electronically signed by: Tien Angel MD 11/04/2016 14:34 [facility] (meyaddendum tdnorefesh nownorefresh) Portions of this chart may have been created with [employer] voice recognition software. Occasi onal wrong-word [...] signed by: Hugo Godfrey MD, 11/04/2016 10:02 [facility] by Hugo Godfrey MD at 2016 10:19 AM Susie Guerrero MD - 10/27/2016 12:00 AM [facility] Radiation Oncology Follow-up Note PATIENT: Smitha Rider MR#: [id number] :1960 DOS:10/27/2016 ICD/Diagnosis: C73 - Malignant neoplasm [...] was reviewed with Radio logy here at [facility] and it was felt that [...] t o Dr. Coles, endocrinology to establish mcc follow-up. Thank you for allowing me to participate in the care of Smitha Rider. If you should have any questions regarding this evaluation, please do not hesitate to contact me. Susie Vargas M.D. Radiation Oncologist Department of Radiation Oncology [facility] Electronically signed by Susie Walker M.D CC: Doris Stanford M.D. This note was transcribed using [employer] speech recognition software. As a result, there ma y be unintended for medical and/or spelling errors. Every attempt is made to correct dicta tion. If there are any questions or errors please contact our office. CSN: [id number] signed by Susie Walker MD at 11/02/2016 11:55 AM PSTd ocumented in this encounter Consult Notes Del Dsouza MD - 11/04/2016 6:01 PM PST [address] [address] CONSULTATION DEL DSOUZA MD Patient: SMTIHA RIDER Admitting: HUGO GODFREY MR #: [id number] LOC: PT TYPE: Adm Date: 11/04/2016 : [...] at this time. She is in the [place], [place] area and is here with a [...] 11/04/2016 18:01:37 Transcribed on 11/04/2016 18:23:36 by [facility] job# [id number] Confirmation #: [id number] cc: ZULEYKA MARTÍNEZ CRNPElectronically signed by Del [...] plans. She lives in a home in [place] on the main floor. There are two steps to enter the house. Smitha lives on the main level, Brigitte lives in the upstairs and Jennifer lives in the sement. Prior to hospitalization Smitha was independent in her ADL's. 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 Smitha does not own or use any DME. No DME company preference. She declines the need for for SNF and HH. Her PCP is Zuleyka Martínez and she uses [facility] or [facility] in [place] . Her daughters will be her ride home when she is stable for discharge. No discharge needs noted. Electronically signed by: Avril Brooks RN 11/05/2016 13:02 lan of Care - Murphy Farfan Chaplain - 11/05/2016 10:25 AM PST Spiritual Care Smitha Rider is a 56 y.o. female who is admitted for Pneumothorax after biopsy [J95.8 11]. Spiritual Evaluation: Not especially hindu, but did appreciate director plans visit. Spiritual Intervention: Active Listening, pastoral presence. Spiritual Outcomes: Appreciates Silviculture Professor Visit Spiritual Goals / Follow-up: Will see the patient as requested. If there are any other spiritual care issues that arise, please contact director plans. lan of Care - Ursula Marc RN [...] MD - 11/04/2016 6:05 PM PST [address] [address] OPERATIVE REPORT DEL DSOUZA MD Patient: SMITHA RIDER Admitting: HUGO GODFREY MR #: [id number] LOC: PT TYPE: Adm Date: 11/04/2016 : [...] of air was noted. The smallest available, 24-Lao ch est tube was placed and attached [...] 11/04/2016 18:05:06 Transcribed on 11/04/2016 18:58:44 by [facility] job# [id number] Confirmation #: [id number] cc: ZULEYKA MARTÍNEZ CRNPElectronically signed by Del [...] [place] | | | | | | [address] | | | | | | | | +--------+ + + + + | 08/12/ | Hospital | Infusion Therapy | Elmer Silva | | | 2019 | Encounter | | MD Lazaro Dominique | | | | | | [place] | | | | | | [address] | | | | | | | | +--------+ + + + + | 08/12/ | Appointment | Oncology | Lionel Benson | | 2019 | | | Ze Unger [address] | | | | [address] [place] | | | | | | [place] [address] | | | | | | [phone] | | | | | | | | +--------+ + + + + | 08/19/ | Appointment | Oncology | Elmer Silva | | | 2019 | | | E, [address] | | | | | | ST [place], [place] | | | | | | [address] | | | | | | | | +--------+ + + + + | 08/19/ | Appointment | Infusion Therapy | Elmer Silva | | | 2019 | | | E, [address] | | | | | | ST [place], [place] | | | | | | [address] | | | | | | | [...] [place] | | | | | | [address] | | | | | | | [...] [place] | | | | | | [address] | | | | | | | [...] [place] | | | | | | [address] | | | | | | | [...] [place] | | | | | | [address] | | | | | | | [...] | | Lavender | | | [facility] | | | Top Tube | | [...] [address] | [place] | [phone] | | [facility] | | [address] | | | - LABORATORY | | | | + + + + + XR Chest AP Portable (11/06/2016 6:05 AM [facility]) + + | Specimen | + [...] + + | Performing | Address | City/State/[facility] | Phone Number | | Organization | | | | + + + + + | [facility] | [address] | [place] | [phone] | | [facility] | | [address] | | | - LABORATORY | | [...] 12 | 7 - 18 mg/dL | [facility] | | | | | | [facility] | | | | | | [facility]ICAL | | | | | | [facility] - | | | | | | LABORATORY | | + + + + + + | Creatinine | 0.92 | 0.60 - 1.30 | [facility] | | | | | mg/dL | [facility] | | | | | | MEDICAL | | | | | | CENTER - | | | | | | LABORATORY | | + + + + + + | eGFR, | 64Comment: GLOMERULAR | mL/min/1.73m2 | [facility] | | | non- | FILTRATION | | [facility] | | | Vietnamese | RATE,ESTIMATED | | MEDICAL | | | | mL/min/1.78y3Favr than | | CENTER - | | [...] + | [facility] | [address] | [place] | [phone] | | [facility] | | [address] | | | - LABORATORY | | [...] of this study were reported by the [facility] radiologist on November | | | [...] of this study were reported by the [facility] radiologist on | | November 05, [...] + | Extra | Done | | [facility] | | | B[facility]y | | | [facility] | | [...] | + + + + + | [facility] | [address] | [place] | [phone] | | [facility] | | [address] | | | - LABORATORY | | [...] 12 | 7 - 18 mg/dL | [facility] | | | | | | [facility] | | | | | | MEDICAL | | | | | | CENTER - | | | | | | LABORATORY | | + + + + + + | Creatinine | 0.87 | 0.60 - 1.30 | [facility] | | | | | mg/dL | [facility] | | | | | | MEDICAL | | | | | | CENTER - | | | | | | LABORATORY | | + + + + + + | eGFR, | 68Comment: GLOMERULAR | mL/min/1.73m2 | [facility] | | | non- | FILTRATION | | [facility] | | | Vietnamese | RATE,ESTIMATED | | MEDICAL | | | | mL/min/1.14h9Qdah than | | CENTER - | | [...] ST. | [address] | [place] | [phone] | | [facility] | | [address] | | | - LABORATORY | | [...] ST. | [address] | [place] | [phone] | | [facility] | | [address] | | | - LABORATORY | | [...] | Procedure Note | + + | Christopher Rad Results In - 11/04/2016 11:58 AM [...] rajinder was made to | | accommodate nmr43-xtgty introducer needle, which was advanced to the margin of the | | nodulewithout difficulty utilizing CT guidance, and an intercostal PA approach. | | Fivecore biopsies of the nodule were performed through the introducer with tv04-cgogd | | Biopince biopsy gun, producing small [...] [address] | [place] | [phone] | | [facility] | | [address] | | | - LABORATORY | | [...] + | [facility] | [address] | [place] | [phone] | | [facility] | | [address] | | | - LABORATORY | | [...] [address] | [place] | [phone] | | [facility] | | [address] | | | - LABORATORY | | [...] 11/05/16. As part | | | of [employer]' Quality Improvement Program, this case was | | | reviewed by another member of our pathology staff. | | | CLR:JVR:[facility]:C1NR GROSS DESCRIPTION: The specimen is received in | | | formalin in a container labeled "Smitha Rider, R lung". Received are | | | four qce-jkriu-uid needle core fragments ranging in length from | | | 0.3-0.6 cm by average diameter of 0.15 cm, entirely submitted in | | | cassette (A1). CLR:[facility] MICROSCOPIC EXAMINATION: Histologic | | | sections [...] | and its performance characteristics determined by [employer] [facility]. | | | It has not been cleared or approved by the U.S. Food and Drug | | | Administration. The FDA has determined that such clearance or | | | approval is not necessary. This test is used for clinical purposes. | | | It should not be regarded as investigational or for research. | | | [employer] [facility] is certified under the Clinical Laboratory | | | Improvement Amendments of 1988 (CLIA) as qualified to perform high | | | complexity clinical laboratory testing PERFORMING LABORATORY: | | | Tissue processing and slide preparation were performed by [facility] | | | [facility], [address], [place] [address] | | | (Bombsight Specialist: Eliezer Helm M.D.; CLIA#: [id number]). | | | Professional interpretation was performed by [facility], [facility] | | | [address], [place] [address] (Bombsight Specialist: Eliezer | | | Russ Helm; CLIA#: [id number]). Review for send out and | | | technical processing was performed by [facility] [facility], [place] | | | [facility], [address] [place], [place] | | | [address] (Bombsight Specialist: Eliezer Helm M.D.; CLIA#: | | | [id number]). REASON FOR ADDENDUM: To add request for molecular | | | testing. ADDENDUM COMMENT: At the request of Milton Salazar MD | | | archived slide(s) and block(s) for case [id number] are retrieved on | | | Smitha Rider and are reviewed by a pathologist to assess | | | adequacy for PD-L1 (Keytruda) testing. Block A1 is sent to | | | [facility] [place], [place]. JEFFREY:claudia PERFORMING | | | LABORATORY: The Technical Component Processing and Analysis of this | | | test was completed at [facility], [address] [place] [address] | | | [place], [place] / [address] / [phone] / CLIA #[id number] / Medical | | | Director: Dr. Doc Chakraborty. The Professional Component of this | | | test was completed at [facility] [place], [address] [place] [address], [address], | | | [place], [place] / [address] / [phone] / CLIA # [id number] / Medical | | | Director: Dr. Mita Salgado, (Accession / CaseNo: [id number] / | | | [id number]). A detailed copy of the report is [...]
--- OUTSIDE RECORDS SUMMARY | ~2020-08-08 | XMS | Encounter Summary ---
Demographics + + + | Address | [address] | | | [place] [address] | + + + | Home Phone [...] Providers + +------+ + | Care Construction Code Administrator Name | Role | Phone | [...] | | [facility] [address] | [facility] | | | | | [address] | [place] [address] | | | | | [place] [address] | [phone] | | | | | [phone] | | | +--------+ + + + [...] | | | | | [facility] [place] [facility] [place] | | | | | | [address] | | | | | | | | +--------+ + + + + | 08/12/ | Hospital | Infusion Therapy | Elmer Silva | | | 2019 | Encounter | | E, [address] | | | | | | ST [place] | | | | | | [address] | | | | | | | | +--------+ + + + + | 08/12/ | Appointment | Oncology | Lionel Benson | | | 2019 | | | J, PharmD [address] | | | | | [address] [place] | | | | | | [place] [address] | | | | | | [phone] | | | | | | | | +--------+ + + + + | 08/19/ | Appointment | Oncology | Elmer Silva | | | 2019 | | | E, [address] | | | | | | ST [place], [place] | | | | | | [address] | | | | | | | | +--------+ + + + + | 08/19/ | Appointment | Infusion Therapy | Elmer Silva | | | 2019 | | | MD Trip [address] | | | | | | ST [place] | | | | | | [address] | | | | | | | [...] [place] | | | | | | [address] | | | | | | | [...] [place] | | | | | | [address] | | | | | | | [...] [place] | | | | | | [address] | | | | | | | [...] [place] | | | | | | [address] | | | | | | | | +--------+ + + + + documented as of this encounter Visit Diagnoses Not on filedocumented in this encounter"
--- OUTSIDE RECORDS SUMMARY | ~2020-08-08 | XMS | Encounter Summary ---
Demographics + + + | Address | [address] | | | [place] [address] | + + + | Home Phone [...] Providers + +------+ + | Care Traffic Workforce Representative Name | Role | Phone | + +------+ + | Zuleyka Martínez | PCP | | + +------+ + Reason for Visit +---------+--------+ + | Reason | Onset | Comments | | | Date | | +---------+--------+ + | Results | 09/28/ | | | | 2015 | | +---------+--------+ + Encounter Details +--------+ + + + + | Date | Type | Department | Care Team | Description | +--------+ + + + + | 09/28/ | Telephone | [facility] | Susie Montemayor | Results | | 2015 | | MED CTR RADIATION | MD Jared [address] | | | | | ONCOLOGY [address] | [place] | | | | | [place], | [address] | | | | | [place] [address] | | | | | | [phone] | | | +--------+ + + + [...] Telephone Encounter - Susie Fried MD - 09/29/2016 8:47 AM PSTNotified Olena Lo is Rider of her Tg result, reassuring as it is less that 1. CT chest with stable small pulmo nary nodules. One new 2.5mm MATTHEW nodule. Recommend evaluate on thyroid scan but low likely spence of detection. Discuss possible biopsy with Radiology. Follow-up with CT chest in 3-6 months at minimum. Also requested 24 urine Iodine given hx of angiogram in june. Electron dustin signed by Susie Fried MD at 09/29/2016 8:53 AM PSTdocumented in this encount er Plan of Treatment +--------+ + + + [...] [place] | | | | | | [address] | | | | | | | | +--------+ + + + + | 08/12/ | Appointment | Oncology | Lionel Benson | | | 2019 | | | J, PharmCorky [address] | | | | | [address] [place] | | | | | | [place] [address] | | | | | | [phone] | | | | | | | | +--------+ + + + + | 08/19/ | Appointment | Oncology | Elmer Silva | | | 2019 | | | EMD [address] | | | | | | [place] | | | | | | [address] | | | | | | | | +--------+ + + + + | 08/19/ | Appointment | Infusion Therapy | Elmer Silva | | | 2019 | | | E, [address] | | | | | | [place] | | | | | | [address] | | | | | | | [...] [place] | | | | | | [address] | | | | | | | [...] [place] | | | | | | [address] | | | | | | | [...] [place] | | | | | | [address] | | | | | | | [...] [place] | | | | | | [address] | | | | | | | | +--------+ + + + + + +------+--------+ + + | Name | Type | Priori | Associated Diagnoses | Order Schedule | | | | ty | | | + +------+--------+ + + | Iodine, Urine, 24Hr | Lab | Routin | Malignant neoplasm | 1 Occurrences | | | | e | of thyroid gland | starting 09/28/2016 | | | | | (HCC) | until 09/28/2017 | + +------+--------+ + + documented as of this encounter Visit Diagnoses + + | Diagnosis | + + | Malignant neoplasm of thyroid gland (HCC) - Primary Malignant neoplasm of thyroid | | gland | + + documented in this encounter"
--- OUTSIDE RECORDS SUMMARY | ~2020-08-08 | XMS | Encounter Summary ---
Demographics + + + | Address | [address] | | | [place] [address] | + + + | Home Phone [...] Team Providers + +------+ + | Care Rear Load Truck Driver Name | Role | Phone [...] + + | 06/01/ | Hospital | [facility] | Shanae Bennett, | Abnormal stress ECG | | 2016 - | Encounter | MED CTR ICU [address] | MD [address] | with treadmill | | | | [place], | [place] | (Primary Dx); | | 06/02/ | | [place] [address] | [address] | Cigarette smoker one | | 2015 | | [phone] | | half pack a day or [...] Cunningham MD - 06/02/2016 6:05 PM PDT [facility] DISCHARGE SUMMARY Pt. Name/Age/: Olena Rider [...] at 1 pm Contact information: [address] [facility] [place] [address] RESULTS: CT PULMONARY ANGIOGRAM 06/02/2016 12:39 PM [...] Demographics Patient Name MINNA BONE Room Number [address] [place] [address] Patient Number [id number] Date of Study 06/02/2016 Visit Number [id number] Referring Physician ANTONIO Maki Number Date of 1960 Anodiser ZUNILDA DILLON Age 55 year(s) Interpreting PAMELA GUTIERREZ MD Humanities Teacher Gender Female Nurse Procedure Type of Study [...] a component of diaphoresis. She went to [facility] emergency room and had negative enzymes and [...] we'll schedule her to s her PCP, uZleyka Martínez in [place] on this with a recommendation that she [...] signed by: Holger Cunningham MD, 06/02/2016 18:05 [facility] Portions of this chart may have been created with [employer] voice recognition software. Occasi onal wrong-word or [...] ECGs available Confirmed by TARI VILLAFANA, REJI ([id number]) on 06/02/2016 8:44:17 AM Troponin I Result [...] protocol Electronically signed by: Pamela Gutierrez MD [facility] 06/02/2016 Portions of this chart may have been created with [employer] voice recognition software. Occasi onal wrong-word or sound-alike substitutions may have occurred due to the inherent cervantes itations of voice recognition software. Please read the chart carefully and recognize, using context, where these substitutions have occurred. documented in this e ncounter H&P Notes Shanae Bennett MD - 06/01/2016 5:59 PM PDTFormatting of this note might be different fr om the original. [facility] HISTORY AND PHYSICAL Pt. Name/Age/: [...] had an echocardiogram. 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 She denies any other risks/exposure/injuries. She [...] more likely an intolerance. She was at [facility] to evaluate th is and reportedly [...] signed by: Shanae Bennett MD 06/01/2016 18:09 [facility] Portions of this chart may have been created with [employer] voice recognition software. Occasi onal wrong-word or [...] OF CONSULTATION: 06/01/2016 (Hospital Day: 1) CONSULTING HATCHERY MANAGER: Pamela Gutierrez MD HISTORY OF PRESENT ILLNESS: [...] was sent for a stress test at [facility]. She was told she reached "90%" [...] this chart may have been created with [employer] voice recognition software. Occasi onal wrong-word or [...] 1515 (taken with snack). Presently ambulating in [place], states pain is 1/10. lan of Yoselin Cyr - 06/02/2016 2:28 PM PDTDC Planning: This OUTSOLE LEVELER spoke with Olena at her bedside regarding her discharge plans. Her daughters Jodie wylie and Brigitte were also present in the room. She lives in a home in [place] on the main floor. There are two steps to enter the house. Olena lives on the main level, Brigitte lives in the upstairs and Jennifer lives in the ba sement. 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 Olena does not own or use any DME. No DME company preference. SHe declines the need for for SNF and HH. Her PCP is Zuleyka Martínez and she uses [facility] or [facility] in [place] . Her daughters will be her ride [...] [place] | | | | | | [address] | | | | | | | | +--------+ + + + + | 08/12/ | Hospital | Infusion Therapy | Elmer Silva | | | 2019 | Encounter | | MD Lazaro Dominique | | | | | | [place] | | | | | | [address] | | | | | | | | +--------+ + + + + | 08/12/ | Appointment | Oncology | Lionel Benson | | | 2019 | | | JZe [address] | | | | | | [address] [place] | | | | | | [place] [address] | | | | | | [phone] | | | | | | | | +--------+ + + + + | 08/19/ | Appointment | Oncology | Elmer Silva | | | 2019 | | | Trip, [address] | | | | | | [place] | | | | | | [address] | | | | | | | | +--------+ + + + + | 08/19/ | Appointment | Infusion Therapy | Elmer Silva | | | 2019 | | | E, [address] | | | | | | [place] | | | | | | [address] | | | | | | | [...] [place] | | | | | | [address] | | | | | | | [...] [place] | | | | | | [address] | | | | | | | [...] [place] | | | | | | [address] | | | | | | | [...] [place] | | | | | | [address] | | | | | | | [...] 450 | | | [place] Patient Number [id number] Date of Study | | | 06/02/2016 Visit Number [id number] | | | Referring Physician ANTONIO Maki Number Date of | | | 1960 Anodiser ZUNILDA DILLON | | | Age 55 year(s) Interpreting | | | PAMELA GUTIERREZ MD | | | Humanities Teacher Gender Female Nurse Procedure | | | [...] Number 450 | | [place] Patient Number [id number] Date of Study 06/02/2016 Visit Number | | [id number] Referring Physician ANTONIO Maki | | Number Date of 1960 Anodiser ZUNILDA DILLON Age | | 55 year(s) Interpreting PAMELA GUTIERREZ MD | | Humanities Teacher Gender Female NurseProcedureType of Study TTE | [...] ST. | [address] | [place], [place] | [phone] | | [facility] | | [address] | | | - LABORATORY | | [...] | non- | FILTRATION | mL/min/1.73m2 | [facility] | | | [place] | RATE,ESTIMATED | | MEDICAL | | | | mL/min/1.60a2Iiqf than | | CENTER - | | [...] | | | | | mg/dL | [facility] | | | | | | MEDICAL [...] [address] | [place] | [phone] | | [facility] | | [address] | | | - LABORATORY | | [...] ST. | [address] | [place], [place] | [phone] | | [facility] | | [address] | | | - LABORATORY | | [...] [address] | [place] | [phone] | | [facility] | | [address] | | | - LABORATORY | | [...] [address] | [place] | [phone] | | [facility] | | [address] | | | - LABORATORY | | | | + + + + + Magnesium (06/02/2016 5:47 AM PDT) + +-------+ + + + | Component | Value | Ref Range | Performed | Pathologist | | | | | At | Signature | + +-------+ + + + | Magnesium | 2.0 | 1.8 - 2.5 mg/dL | [facility] | | | | | | ST. [...] + + | [address] | [address] | [place] | [phone] | | [facility] | | [address] | | | - LABORATORY | | [...] | | | | | | [employer] | | | | | [...] [address] | [place] | [phone] | | [facility] | | [address] | | | - LABORATORY | | [...] | | | | | | [employer] | | | | | [...] ST. | [address] | [place] | [phone] | | [facility] | | [address] | | | - LABORATORY | | [...] eGFR, | 58 (L)Comment: | >=60 | [facility] | | | non- | GLOMERULAR FILTRATION | mL/min/1.73m2 | [facility] | | | [place] | RATE,ESTIMATED | | MEDICAL | | | | mL/min/1.17z8Picy than | | CENTER - | | [...] [address] | [place] | [phone] | | [facility] | | [address] | | | - LABORATORY | | [...] [address] | [place] | [phone] | | [facility] | | [address] | | | - LABORATORY | | | | + + + + + C-Reactive Protein (06/01/2016 5:56 PM PDT) + +-------+ + + + | Component | Value | Ref Range | Performed | Pathologist | | | | | At | Signature | + +-------+ + + + | CRP | 3.29 | <8.00 mg/L | [facility] | | | | | | [facility] | | | | | | MEDICAL | | | | | | [facility] - | | | | | | [...] [address] | [place] | [phone] | | [facility] | | [address] | | | - LABORATORY | | | | + + + + + Troponin I (06/01/2016 5:56 PM PDT) + + + + + + | Component | Value | Ref Range | Performed | Pathologist | | | | | At | Signature | + + + + + + | Troponin I | 0.01Comment: Reference | <0.06 ng/mL | [facility] | | | | Ranges:0.00-0.06 = | [...] | | | | | | [employer] | | | | | [...] [address] | [place] | [phone] | | [facility] | | [address] | | | - LABORATORY | | [...] | | | | REJI MARC MD ([id number]) | | | | | | on [...] [address] | [place] | [phone] | | [facility] | | [address] | | | - LABORATORY | | [...] | | WITH MEALS, First dose on Wed | | PM PDT | | | [...] chloride 0.9% (NS) bolus | Push | 06/02/20 | 50 mLs | 3000 | | [...]
--- OUTSIDE RECORDS SUMMARY | ~2020-08-08 | XMS | Encounter Summary ---
Demographics + + + | Address | [address] | | | [place] [address] | + + + | Home Phone [...] Providers + +------+ + | Care Chief Minister Name | Role | Phone | + +------+ + | Zuleyka Martínez | PCP | | + +------+ + Reason for Visit + +--------+ + | Reason | Onset | Comments | | | Date | | + +--------+ + | Medication Refill | 07/29/ | | | | 2020 | | + +--------+ + Encounter Details +--------+--------+ + + + | Date | Type | Department | Care Team | Description | +--------+--------+ + + + | 07/29/ | Refill | [facility] | Susie Montemayor | Medication Refill | | 2020 | | MED CTR MEDICAL | MD Jared [address] | | | | | [facility]OGY CLIN[facility] [address] | [place], [place] | | | | | [address] | [address] | | | | | [place] [address] | | | | | | [phone] | | | +--------+--------+ + + + [...] Telephone Encounter - Abby Rodriguez RN - 07/29/2020 9:42 AM PDTPatient notified in p sondra of approved refill for gabapentin, and that the increase in the oxycodone would be add ressed with Dr. Montemayor upon her return tomorrow. Patient verbalizes her understanding. Elec tronically signed by Abby Rodriguez RN at 07/29/2020 9:43 AM PDTTelephone Encounter - Azucena Jaime RN - 07/29/2020 8:[address] Sullivan who is willing to refill the gabapentin, will need to clarify the oxycodone dose with Dr. Montemayor when she is back in [facility] office. Spoke with Olena who states she is not out of the oxycodone at this time. Zahra ctronically signed by Azucena Ritchie RN at 07/29/2020 8:27 AM PDTTelephone Encounter - Zelda Love - 07/29/2020 7:12 AM PDTMichelle left a requesting a new prescription fo r her gabapentin and oxycodone due to the increase in dose the pharmacy will not refill it b ecause to soon please advise thank you documented in this [...] [place] | | | | | | [address] | | | | | | | | +--------+ + + + + | 08/12/ | Hospital | Infusion Therapy | Elmer Silva | | | 2019 | Encounter | | MD Trip [address] | | | | | | [place] | | | | | | [address] | | | | | | | | +--------+ + + + + | 08/12/ | Appointment | Oncology | Lionel Benson | | | 2019 | | | Ze Unger [address] | | | | | | [address] | | | | | | [place] [address] | | | | | | [phone] | | | | | | | | +--------+ + + + + | 08/19/ | Appointment | Oncology | Elmer Silva | | | 2019 | | | E, MD [address]az[address] | | | | | | [place] | | | | | | [address] | | | | | | | | +--------+ + + + + | 08/19/ | Appointment | Infusion Therapy | Elmer Silva | | | 2019 | | | E, MD [address] | | | | | | [place] | | | | | | [address] | | | | | | | [...] [place] | | | | | | [address] | | | | | | | [...] [place] | | | | | | [address] | | | | | | | [...] [place] | | | | | | [address] | | | | | | | | +--------+ + + + + | 09/23/ | Appointment | Infusion Therapy | | | | 2019 | | | | | +--------+ + + + + | 11/22/ | Appointment | Radiation Oncology | Susie Montemayor | | | 2020 | | | MD Jared [address] | | | | | | [place], [place] | | | | | | [address] | | | | | | | | +--------+ + + + + documented as of this encounter Visit Diagnoses + + | Diagnosis | + + | 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
--- OUTSIDE RECORDS SUMMARY | ~2020-08-08 | XMS | Encounter Summary ---
Demographics + + + | Address | [address] | | | [place] [address] | + + + | Home Phone [...] Team Providers + +------+ + | Care Epoxy Coatings Installer Name | Role | Phone | + +------+ + | Zuleyka Martínez | PCP | | + +------+ + Encounter Details +--------+ + + + + | Date | Type | Department | Care Team | Description | +--------+ + + + + | 07/23/ | Orders Only | [facility] | Susie Montemayor | | | 2019 | | MED CTR RADIATION | MD Jared [address] | | | | | ON[facility]OGY CLIN[facility] [address] | [place], [place] | | | | | [address] [place] | [address] | | | | | [place] [address] | | | | | | [phone] | | | +--------+ + + + [...] [place] | | | | | | [address] | | | | | | | | +--------+ + + + + | 08/12/ | Hospital | Infusion Therapy | Elmer Silva | | | 2019 | Encounter | | MD Laz[address] Dominique | | | | | | [place] | | | | | | [address] | | | | | | | | +--------+ + + + + | 08/12/ | Appointment | Oncology | Lionel Benson | | 2019 | | | Ze Unger [address] | | | | | | [address] [place] | | | | | | [place] [address] | | | | | | [phone] | | | | | | | | +--------+ + + + + | 08/19/ | Appointment | Oncology | Elmer Silva | | | 2019 | | | E, [address] | | | | | | ST [place], [place] | | | | | | [address] | | | | | | | | +--------+ + + + + | 08/19/ | Appointment | Infusion Therapy | Elmer Silva | | | 2019 | | | E, [address] | | | | | | ST [place], [place] | | | | | | [address] | | | | | | | [...] [place] | | | | | | [address] | | | | | | | [...] [place] | | | | | | [address] | | | | | | | [...] [place] | | | | | | [address] | | | | | | | [...] [place] | | | | | | [address] | | | | | | | | +--------+ + + + + documented as of this encounter Visit Diagnoses Not on filedocumented in this encounter"
--- OUTSIDE RECORDS SUMMARY | ~2020-08-08 | XMS | Encounter Summary ---
Demographics + + + | Address | [address] | | | [place] [address] | + + + | Home Phone [...] Providers + +------+ + | Care Chief Librarian Work With Blind Name | Role | Phone | + +------+ + | Zuleyka Martínez | PCP | | + +------+ + Encounter Details +--------+ + + + + | Date | Type | Department | Care Team | Description | +--------+ + + + + | 09/06/ | Hospital | [facility] | Susie Montemayor | | | 2019 | Encounter | MED CTR RADIATION | Jared, [address] | | | | | ONCOLOGY [address] | ST [place], [place] | | | | | [place], | [address] | | | | | [place] [address] | | | | | | [phone] | | | +--------+ + + + [...] | | | | | [address] [place] | | | | | | [address] | | | | | | | | +--------+ + + + + | 08/12/ | Hospital | Infusion Therapy | Elmer Silva | | | 2019 | Encounter | | MD [address]az[address] Domin[address] | | | | | | [place] | | | | | | [address] | | | | | | | | +--------+ + + + + | 08/12/ | Appointment | Oncology | Lionel Benson | | | 2019 | | | JZe [address] | | | | | | [address] | | | | | | [place] [address] | | | | | | [phone] | | | | | | | | +--------+ + + + + | 08/19/ | Appointment | Oncology | Elmer Silva | | | 2019 | | | Trip, MD [address] | | | | | | [place] | | | | | | [address] | | | | | | | | +--------+ + + + + | 08/19/ | Appointment | Infusion Therapy | Elmer Silva | | | 2019 | | | MD [address]azaro Dominique [address] | | | | | | [place] | | | | | | [address] | | | | | | | [...] [place] | | | | | | [address] | | | | | | | [...] [place] | | | | | | [address] | | | | | | | [...] [place] | | | | | | [address] | | | | | | | [...] [place] | | | | | | [address] | | | | | | | | +--------+ + + + + documented as of this encounter Visit Diagnoses Not on filedocumented in this encounter"
--- OUTSIDE RECORDS SUMMARY | ~2020-08-08 | XMS | Encounter Summary ---
Demographics + + + | Address | [address] | | | [place] [address] | + + + | Home Phone [...] Author + + + | Author | [facility] | | | and [place] | + + + | Organization | [facility] | | | [...] Providers + +------+ + | Care Broadcast Maintenance Engineer Name | Role | Phone | [...] | | | [address] [place] | [place] [address] | | | | | [place] [address] | | | | | | [phone] | | | +--------+ + + + [...] [place] | | | | | | [address] | | | | | | | | +--------+ + + + + | 08/12/ | Hospital | Infusion Therapy | Elmer Silva | | | 2019 | Encounter | | MD Lazaro Dominique | | | | | | [place] | | | | | | [address] | | | | | | | | +--------+ + + + + | 08/12/ | Appointment | Oncology | Lionel Benson | | | 2019 | | | Ze Unger [address] | | | | | | [address] [place] | | | | | | [place] [address] | | | | | | [phone] | | | | | | | | +--------+ + + + + | 08/19/ | Appointment | Oncology | Elmer Silva | | | 2019 | | | Trip, [address] | | | | | | ST [place] | | | | | | [address] | | | | | | | | +--------+ + + + + | 08/19/ | Appointment | Infusion Therapy | Elmer Silva | | | 2019 | | | E, [address] | | | | | | ST [place], [place] | | | | | | [address] | | | | | | | [...] [place] | | | | | | [address] | | | | | | | [...] [place] | | | | | | [address] | | | | | | | [...] [place] | | | | | | [address] | | | | | | | [...] [place] | | | | | | [address] | | | | | | | [...]
--- OUTSIDE RECORDS SUMMARY | ~2020-08-08 | XMS | Encounter Summary ---
Demographics + + + | Address | [address] | | | [place] [address] | + + + | Home Phone [...] Team Providers + +------+ + | Care Objective C Developer Name | Role | Phone | [...] 02/19/ | [facility] | [facility] | Milton Salazar | Non-small cell | | 2017 | Encounter | MED CTR MEDICAL | MD Bebeto [address] | cancer of right lung | | | | ONCOLOGY CLINIC [address] | [address] [place] | (HCC) (Primary Dx) | | | | [address] | [place] [address] | | | | | [place] [address] | [phone] | | | | | [phone] | | | +--------+ + + + [...] - [place] Pt. Name/Age/: Olena Rider 56 y.o. 1960 Med. 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 She continues to experience resi dual [...] Electronically signed by: Milton Salazar, 02/19/2017 8:01 [facility] TIME SPENT 30 MIN. > 50% AT BEDSIDE, WITH FAMILY/PATIENT IN CARE AND SKIN DIVER ON UNIT AND CO ORDINATION OF CARE Portions of this chart may have been created with [employer] voice recognition software. Occasi onal wrong-word or [...] [place] | | | | | | [address] | | | | | | | | +--------+ + + + + | 08/12/ | Hospital | Infusion Therapy | Elmer Silva | | | 2019 | Encounter | | E, [address] | | | | | | [place], [place] | | | | | | [address] | | | | | | | | +--------+ + + + + | 08/12/ | Appointment | Oncology | Lionel Benson | | | 2019 | | | Ze Unger [address] | | | | | | [address] [place] | | | | | | [place] [address] | | | | | | [phone] | | | | | | | | +--------+ + + + + | 08/19/ | Appointment | Oncology | Elmer Silva | | | 2019 | | | E, [address] | | | | | | [address] [place], [place] | | | | | | [address] | | | | | | | | +--------+ + + + + | 08/19/ | Appointment | Infusion Therapy | Elmer Silva | | | 2019 | | | E, [address] | | | | | | [place] | | | | | | [address] | | | | | | | [...] [place] | | | | | | [address] | | | | | | | [...] [place] | | | | | | [address] | | | | | | | [...] [place] | | | | | | [address] | | | | | | | | +--------+ + + + + | 09/23/ | Appointment | Infusion Therapy | | | | 2019 | | | | | +--------+ + + + + | 11/22/ | Appointment | Radiation Oncology | Susie Montemayor | | | 2020 | | | MD [address]az[address] | | | | | | [place], [place] | | | | | | [address] | | | | | | | [...] the | | | | PDT | ([facility]) | results section. | + +--------+ + + + | COMPREHENSIVE | STAT | 02/19/2017 | Non-small cell | Results for this | | METABOLIC PANEL | | 7:37 AM | cancer of right lung | procedure are in the | | | | PDT | ([facility]) | results section. | + +--------+ + + + documented in this encounter Results Magnesium (02/19/2017 7:37 AM PDT) + +-------+ + + + | Component | Value | Ref Range | Performed | Pathologist | | | | | At | Signature | + +-------+ + + + | Magnesium | 1.9 | 1.8 - 2.5 mg/dL | [facility] [...] [address] | [place] | [phone] | | [facility] | | [address] | | | - LABORATORY | | [...] ST. | [address] | [place] | [phone] | | [facility] | | [address] | | | - LABORATORY | | [...] (L) | 7 - 18 mg/dL | [facility] | | | | | | [facility] | | | | | | MEDICAL | | | | | | CENTER - | | | | | | LABORATORY | | + + + + + + | Creatinine | 0.97 | 0.60 - 1.30 | [facility] | | | | | mg/dL | [facility] | | | | | | MEDICAL | | | | | | CENTER - | | | | | | LABORATORY | | + + + + + + | eGFR, | 60Comment: GLOMERULAR | >=60 | [facility] | | | non- | FILTRATION | mL/min/1.73m2 | [facility] | | | [place] | RATE,ESTIMATED | | MEDICAL | | | | mL/min/1.72i6Aavw than | | CENTER - | | [...] + | [address] | [address] | [place], [place] | [phone] | | [facility] | | [address] | | | - LABORATORY | | | | + + + + + documented in this encounter Visit Diagnoses + + | Diagnosis | + + | Non-small cell cancer of right lung (HCC) - Primary | + + documented in this encounter
--- OUTSIDE RECORDS SUMMARY | ~2020-08-08 | XMS | Encounter Summary ---
Demographics + + + | Address | [address] | | | [place] [address] | + + + | Home Phone [...] Team Providers + +------+ + | Care Power Shovel Operator Name | Role | Phone | [...] [place], [place] | | | | | [place], | [address] | | | | | [place] [address] | | | | | | [phone] | | | +--------+ + + + [...] [place] | | | | | | [address] | | | | | | | | +--------+ + + + + | 08/12/ | Hospital | Infusion Therapy | Elmer Silva | | | 2019 | Encounter | | MD Trip [address] | | | | | | [place] | | | | | | [address] | | | | | | | | +--------+ + + + + | 08/12/ | Appointment | Oncology | Lionel Benson | | | 2019 | | | Ze Un[address] | | | | | | [address] | | | | | | [place] [address] | | | | | | [phone] | | | | | | | | +--------+ + + + + | 08/19/ | Appointment | Oncology | Elmer Silva | | | 2019 | | | E, [address] | | | | | | [place] | | | | | | [address] | | | | | | | | +--------+ + + + + | 08/19/ | Appointment | Infusion Therapy | Elmer Silva | | | 2019 | | | E, [address] | | | | | | [place] | | | | | | [address] | | | | | | | [...] [place] | | | | | | [address] | | | | | | | [...] [place] | | | | | | [address] | | | | | | | [...] [place] | | | | | | [address] | | | | | | | [...] | | | | | [place] | | | | | | [address] | | | | | | | | +--------+ + + + + documented as of this encounter Visit Diagnoses + + | Diagnosis | + + | Lung nodule - Primary Solitary pulmonary nodule | + + documented in this encounter"
--- OUTSIDE RECORDS SUMMARY | ~2020-08-08 | XMS | Encounter Summary ---
Demographics + + + | Address | [address] | | | [place] [address] | + + + | Home Phone [...] Providers + +------+ + | Care Construction Laborer Name | Role | Phone | [...] + + | 04/02/ | Hospital | [facility] | Milton Salazar | Non-small cell | | 2017 | Encounter | [facility] | MD Bebeto [address] | cancer of right lung | | | | ONCOLOGY CLINIC [address] [place] | (HCC) (Primary Dx) | | | | [address] | [place] [address] | | | | | [place] [address] | [phone] | | | | | [phone] | | | +--------+ + + + [...] | | 7 | | | Dr. Mno | | | | | + + [...] erent from the original. Hem-Onc Progress Note [facility] Pt. Name/Age/: Olena Connollybren Rider 56 y.o. 1960 Med. Record Number: [id number] Date of admission: 04/02/2017 Assessment and plan: [...] Electronically signed by: Milton Salazar, 04/02/2017 10:39 [facility] TIME SPENT 20 MIN. > 50% AT BEDSIDE, WITH FAMILY/PATIENT IN CARE AND BONDERITE OPERATOR ON UNIT AND CO ORDINATION OF CARE Portions of this chart may have been created with ReactX voice recognition software. Occasi onal wrong-word or [...] | | | | | | [place], [place] | | | | | | [address] | | | | | | | | +--------+ + + + + | 08/12/ | Hospital | Infusion Therapy | Elmer Silva | | 2019 | Encounter | | E, [address] | | | | | [place], [place] | | | | | | [address] | | | | | | | | +--------+ + + + + | 08/12/ | Appointment | Oncology | Lionel Benson | | | 2019 | | | J, Ze [address] | | | | | | [address] [place] | | | | | | [place] [address] | | | | | | [phone] | | | | | | | | +--------+ + + + + | 08/19/ | Appointment | Oncology | Elmer Silva | | | 2019 | | | E, [address] | | | | | [address] [place], [place] | | | | | | [address] | | | | | | | | +--------+ + + + + | 08/19/ | Appointment | Infusion Therapy | Elmer Silva | | | 2019 | | | MD Lazaro [address] | | | | | | ST [place] | | | | | | [address] | | | | | | | [...] [place] | | | | | | [address] | | | | | | | [...] [place] | | | | | | [address] | | | | | | | [...] [place] | | | | | | [address] [...] [place] | | | | | | [address] | | | | | | | [...] + | [facility] | [address] | [place] | [phone] | | [facility] | | [address] | | | - LABORATORY | | [...] (H) | 70 - 109 mg/dL | OP[facility] | | | | | | ST. [...] eGFR, | >60Comment: GLOMERULAR | >=60 | [facility] | | | non- | FILTRATION | mL/min/1.73m2 | [facility] | | | Kazakh | RATE,ESTIMATED | | MEDICAL | | | | mL/min/1.55y6Jlzn than | | CENTER - | | [...] | 9.3 | 8.3 - 10.5 | [facility] | | | | | mg/dL | [facility] | | | | | | MEDICAL | | | | | | CENTER - | | | | | | LABORATORY | | + + + + + + | Albumin | 3.9 | 3.2 - 5.0 g/dL | YULIA | | | | | | JOEC | | | | | [...] + | [facility] | [address] | [place] | [phone] | | [facility] | | [address] | | | - LABORATORY | | | | + + + + + documented in this encounter Visit Diagnoses + + | Diagnosis | + + | Non-small cell cancer of right lung (HCC) - Primary | + + documented in this encounter
--- OUTSIDE RECORDS SUMMARY | ~2020-08-08 | XMS | Encounter Summary ---
Demographics + + + | Address | [address] | | | [place] [address] | + + + | Home Phone [...] Team Providers + +------+ + | Care Jewel Hole Finish Opener Name | Role | Phone | + +------+ + | Zuleyka Martínez | PCP | | + +------+ + Encounter Details +--------+ + + + + | Date | Type | Department | Care Team | Description | +--------+ + + + + | 12/06/ | Hospital | [facility] | Jean PaulZuleyka wagner, | Encounter for | | 2019 | Encounter | [facility] ULTRASOUND | MD [address] | follow-up | | | | [address] [place] | [address] [place], | surveillance of | | | | [place], [place] | [place] [address] | thyroid cancer | | | | [address] | [phone] | | | | | [phone] | | | +--------+ + + + [...] [place] | | | | | | [address] | | | | | | | | +--------+ + + + + | 08/12/ | Hospital | Infusion Therapy | Elmer Silva | | 2019 | Encounter | | MD Lazaro Wagner | | | | | | [place] | | | | | | [address] | | | | | | | | +--------+ + + + + | 08/12/ | Appointment | Oncology | Lionel Benson | | | 2019 | | | Ze Unger [address] | | | | | | [address] [place] | | | | | | [place] [address] | | | | | | [phone] | | | | | | | | +--------+ + + + + | 08/19/ | Appointment | Oncology | Elmer Silva | | | 2019 | | | E, [address] | | | | | [address] [place] | | | | | | [address] | | | | | | | | +--------+ + + + + | 08/19/ | Appointment | Infusion Therapy | Elmer Silva | | | 2019 | | | E, [address] | | | | | [address] [place] | | | | | | [address] | | | | | | | [...] [place] | | | | | | [address] | | | | | | | [...] [place] | | | | | | [address] | | | | | | | | +--------+ + + + + | 09/16/ | Appointment | Infusion Therapy | | | | 2019 | | | | | +--------+ + + + + | 09/23/ | Office | Oncology | Shira Elmer | | | 2019 | Visit | | MD Lazaro Wagner | | | | | | [place] | | | | | | [address] | | | | | | | [...] [place] | | | | | | [address] | | | | | | | [...]
--- OUTSIDE RECORDS SUMMARY | ~2020-08-08 | XMS | Encounter Summary ---
Demographics + + + | Address | [address] | | | [place] [address] | + + + | Home Phone [...] Team Providers + +------+ + | Care Campus Monitor Name | Role | Phone | + [...] | | | ON[facility]Y CLINIC [address] | [facility] | | | | | [address] | [place] [address] | | | | | [place] [address] | [phone] | | | | | [phone] | | | +--------+ + + + [...] 9:01 AM PDTJacobo zhao was discharged from [facility] and was told to make an appointment this week with Dr. Salazar as she has a new brain lesion.. Please advise where I can place her. Also, she is schedule tomorrow (01-09-20) for a PET at [facility]. She wants to reschedule it as she [...] [place] | | | | | | [address] | | | | | | | | +--------+ + + + + | 08/12/ | Hospital | Infusion Therapy | Elmer Silva | | | 2019 | Encounter | | E, [address] | | | | | [address] [place] | | | | | | [address] | | | | | | | | +--------+ + + + + | 08/12/ | Appointment | Oncology | Lionel Benson | | | 2019 | | | Ze Unger [address] | | | | | | [address] | | | | | | [place] [address] | | | | | | [phone] | | | | | | | | +--------+ + + + + | 10/19/ | Appointment | Oncology | Elmer Silva | | | 2019 | | | E, [address] | | | | | [place], [place] | | | | | | [address] | | | | | | | | +--------+ + + + + | 08/19/ | Appointment | Infusion Therapy | Elmer Silva | | | 2019 | | | E, [address] | | | | | [address] [place], [place] | | | | | | [address] | | | | | | | [...] [place] | | | | | | [address] | | | | | | | [...] [place] | | | | | | [address] | | | | | | | [...] [place] | | | | | | [address] | | | | | | | [...] [place] | | | | | | [address] | | | | | | | | +--------+ + + + + documented as of this encounter Visit Diagnoses Not on filedocumented in this encounter"
--- OUTSIDE RECORDS SUMMARY | ~2020-08-08 | XMS | Encounter Summary ---
Demographics + + + | Address | [address] | | | [place] [address] | + + + | Home Phone [...] Team Providers + +------+ + | Care Inside Sales Lead Name | Role | Phone | [...] | Primary | Susie M, | [address] | | | | | malignant | MD [address] | [place], | | | | | neoplasm of | [address] | [place] [address] | | | | | female | [place], | Phone: | | | | | breast (HCC) | [place] [address] | [phone] | | | | | Procedures | Phone: | Fax: | | | | | [place] | [phone] | [phone] | | | | | Treatment | Fax: | | | | | | Plan Complex | [phone] | | +--------+--------+ + + + + [...] | | | ONCOLOGY CLINIC [address] | [place] | breast (HCC) | | | | [address] [place] | [address] | (Primary Dx) | | | | [place] [address] | | | | | | [phone] | | | +--------+ + + + [...] [place] | | | | | | [address] | | | | | | | | +--------+ + + + + | 08/12/ | Hospital | Infusion Therapy | Elmer Silva | | | 2019 | Encounter | | E, [address] | | | | | [place] | | | | | | [address] | | | | | | | | +--------+ + + + + | 08/12/ | Appointment | Oncology | Lionel Benson | | | 2019 | | | Cornel, Ze [address] | | | | | | [address] | | | | | | [place] [address] | | | | | | [phone] | | | | | | | | +--------+ + + + + | 08/19/ | Appointment | Oncology | Elmer Silva | | | 2019 | | | E, MD Lazaro LOZA | | | | | | [place] | | | | | | [address] | | | | | | | | +--------+ + + + + | 08/19/ | Appointment | Infusion Therapy | Elmer Silva | | | 2019 | | | E, MD Lazaro LOZA | | | | | | [place] | | | | | | [address] | | | | | | | [...] [place] | | | | | | [address] | | | | | | | [...] [place] | | | | | | [address] | | | | | | | [...] [place] | | | | | | [address] | | | | | | | [...] | | | | | [place], [place] | | | | | | [address] | | | | | | | [...]
--- OUTSIDE RECORDS SUMMARY | 2020-08-08 20:30 | XMS ---
PreManage Notification: SMITHA BUITRAGO Security Physician Practice Manager Events No recent Security Events currently on file CRITERIA MET - [facility] - 2 Visits in 30 Days CARE PROVIDERS Miguelito Allison DO [facility] Current PHONE: [phone] BISMARK Unger Nurse Practitioner 04/04/2019[facility] JOE PHONE: [phone] Augusto has no Care Guidelines for this patient. ESamuel VISIT COUNT (12 MO.) [address] [place] [address] TOTAL 4 NOTE: Visits indicate total known visits. ED/UCC VISIT TRACKING (12 MO.) 08/08/2020 20:28 [facility] [place] TYPE: Emergency COMPLAINT: - POSSIBLE THRUSH 07/17/2020 02:54 [facility] [place] TYPE: Emergency COMPLAINT: - LOSS OF RT SIDE FUNCTION DIAGNOSES: - Malignant neoplasm of unspecified part of unspecified bronchu - Personal history of malignant neoplasm of thyroid - Other nursing home (current) drug therapy - Weakness - Secondary malignant neoplasm of brain - Personal history of malignant neoplasm of breast - Personal history of nicotine dependence - Weakness - Allergy status to narcotic agent status 04/11/2020 19:18 [facility] [place] TYPE: Emergency COMPLAINT: - LEFT EYE PAIN DIAGNOSES: - Nicotine dependence, unspecified, uncomplicated - Hordeolum externum right upper eyelid - 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
[2020-08-08] MEDS ORDERED: CYMBALTA20 MG PO (22:31)
[2020-08-08] MEDS ORDERED: OXYCODONE HCL5 MG PO (22:32)
[2020-08-08] MEDS ORDERED: NYSTATIN100000 UN1 PO (23:40)
== END 2020-08-09 00:08 | disposition home or self-care (01) ==
LOC: ED 20:28
DX: B37.0 Candidal stomatitis (principal); B37.81 Candidal esophagitis; C79.31 Secondary malignant neoplasm of brain; C34.90 Malignant neoplasm of unspecified part of unspecified bronchus or lung; Z85.3 Personal history of malignant neoplasm of breast; Z87.891 Personal history of nicotine dependence; Z88.5 Allergy status to narcotic agent; Z79.899 Other long term (current) drug therapy
CPT/HCPCS: 99282

== ENCOUNTER 2020-09-01 11:40 | Emergency (ER) | payer OTHER ==
[~2020-09-01] VITALS: Ht 172.7 cm; Wt 79.4 kg
[~2020-09-01 11:40] MED LIST changes: +CYMBALTA20 MG PO; +NYSTATIN100000 UN1 PO; +OXYCODONE HCL5 MG PO
--- OUTSIDE RECORDS SUMMARY | 2020-09-01 11:42 | XMS ---
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 ESamuel VISIT COUNT (12 MO.) [address] [place] [address] [address] TOTAL 5 NOTE: Visits indicate total known visits. ED/UCC VISIT TRACKING (12 MO.) 09/01/2020 11:[address] [facility] [place] TYPE: Emergency COMPLAINT: - NAUSEA, VOMITTING 08/08/2020 20:[address] [facility] [place] TYPE: Emergency COMPLAINT: - POSSIBLE THRUSH DIAGNOSES: - Allergy status to narcotic agent - Personal history of nicotine dependence - Secondary malignant neoplasm of brain - Other fci (current) drug therapy - Acute pharyngitis, unspecified - Candidal stomatitis - Personal history of malignant neoplasm of breast - Candidal esophagitis - Malignant neoplasm of unspecified part of unspecified bronchus or lung 07/17/2020 02:54 [facility] [place] TYPE: Emergency COMPLAINT: - LOSS OF RT SIDE FUNCTION DIAGNOSES: - Malignant neoplasm of unspecified part of unspecified bronchus or lung - Personal history of malignant neoplasm of thyroid - Other fci (current) drug therapy - Weakness - Secondary malignant neoplasm of brain - Personal history of malignant neoplasm of breast - Personal history of nicotine dependence - Weakness - Allergy status to narcotic agent 04/11/2020 19:18 [facility] TYPE: Emergency COMPLAINT: - LEFT EYE PAIN DIAGNOSES: - Nicotine dependence, unspecified, uncomplicated - Hordeolum externum right upper eyelid - Other buttermaker (current) drug therapy - Allergy status to narcotic agent 01/04/2020 09:27 [facility] Araceli [facility] TYPE: Emergency DIAGNOSES: - Facial Swelling - Periorbital cellulitis - eye swelling INPATIENT VISIT TRACKING (12 MO.) [facility] DIAGNOSES: - Periorbital cellulitis [email or web address]
[2020-09-01] MEDS ORDERED: PROMETHEGAN25 MG PR (16:18)
[2020-09-01] MEDS ORDERED: REGLAN10 MG PO (16:18)
--- NOTE | 2020-09-01 19:51 | EKG ---
[facility] [address] [facility] [facility] [place], [place] [address] Signed Normal sinus rhythm Normal ECG When compared with ECG of 14-FEB-2019 07:22, No significant change was found Confirmed by REHAN ALVAREZ MD ([id number]) on 09/01/2020 7:51:23 PM Electronically Signed By: REHAN ALVAREZ MD 09/01/201950 PATIENT NAME: SMITHA BUITRAGO Electrocardiogram DATE OF : 64 PHYSICIAN: REHAN ALVAREZ MD REPORT #: [id number] REPORT IS CONFIDENTIAL AND NOT TO BE RELEASED WITHOUT AUTHORIZATION
--- NOTE | 2020-09-02 18:35 | PATH ---
[facility] [address] [facility] [place], [place] [address] Signed ORDERING PHYSICIAN: Ricardo Hwang MD PATIENT NAME: SMITHA BUITRAGO GENDER: F : 1960 Prior History: No cases found. SPECIMEN(S): No Source Given MOLECULAR PATHOLOGY RESULTS: SARS-CoV-2 Not Detected ADDITIONAL NOTES.: The Sodus Fusion SARS-CoV-2 Assay is a multiplex real-time PCR (RT-PCR) in vitro diagnostic test intended for the qualitative detection of RNA from SARS-CoV-2 from individuals who meet COVID-19 clinical and/or epidemiological criteria. In general, SARS-CoV-2 RNA can be detected during the acute phase of infection. Positive results indicate the presence of SARS-CoV-2 RNA. Clinical correlation with patient history and other diagnostic information is necessary to determine patient infection status. Positive results do not rule out bacterial infection or co-infection with other viruses. Negative results do not preclude SARS-CoV-2 infection and should not be used as the sole basis for patient management decisions. Negative results must be combined with other clinical observations, patient history, and epidemiological information. The Sodus Fusion SARS-CoV-2 Assay is not yet approved or cleared by the [place] FDA. When there are no FDA-approved or cleared tests available, and other criteria are met, FDA can make tests available under an emergency access mechanism called an Emergency Use Authorization (EUA). The EUA for this test is supported by the Horse Racing Manager of Health and Human Service's (HHS's) declaration that circumstances exist to justify the emergency use of in vitro diagnostics for the detection and/or diagnosis of the virus that causes COVID-19. This EUA will remain in effect for the duration of the COVID-19 declaration justifying emergency of IVDs, unless it is terminated or revoked by FDA, after which the test may no longer be used. The Sodus Fusion SARS-CoV-2 Assay is for use only under EUA PATIENT NAME: SMITHA BUITRAGO PATHOLOGY DATE OF : 64 REPORT #: [id number] PHYSICIAN: LOUISA LING PCP: JOE SOFIA NP REPORT IS CONFIDENTIAL AND NOT TO BE RELEASED WITHOUT AUTHORIZATION [facility] [address] [place] [id number] Signed in laboratories certified under the Clinical Laboratory Improvement Amendments of 1988 (CLIA) to perform high complexity tests. [facility] is certified under CLIA to perform high complexity clinical laboratory testing. PERFORMING LABORATORY.: Molecular testing was performed by [facility] [address] [place], [place] [address] [address] (Athletic Director: Erickson Shaikh D.O.; CLIA#: [id number]) Diagnostician: System Interface Pathologist Electronically Signed 09/02/2020 Copies: ~ PATIENT NAME: SMITHA BUITRAGO PATHOLOGY DATE OF : 64 REPORT #: [id number] PHYSICIAN: LOUISA LING PCP: JOE SOFIA NP REPORT IS CONFIDENTIAL AND NOT TO BE RELEASED WITHOUT AUTHORIZATION
== END 2020-09-01 17:05 | disposition home or self-care (01) ==
LOC: ED 11:40
DX: R11.2 Nausea with vomiting, unspecified (principal); J06.9 Acute upper respiratory infection, unspecified; E86.0 Dehydration; Z20.828 Contact with and (suspected) exposure to other viral communicable diseases; Z87.891 Personal history of nicotine dependence; Z88.5 Allergy status to narcotic agent; C79.31 Secondary malignant neoplasm of brain; C34.90 Malignant neoplasm of unspecified part of unspecified bronchus or lung; Z79.899 Other long term (current) drug therapy; Z85.3 Personal history of malignant neoplasm of breast; Z85.850 Personal history of malignant neoplasm of thyroid; Z85.118 Personal history of other malignant neoplasm of bronchus and lung
CPT/HCPCS: 70470; 71045; 80053; 81001; 83605; 84484; 85025; 93005; 93010; 96361; 99284-25; C9803; J2405; J2765; J7030; Q9967